=== PATIENT | male | born 1935 | race Caucasian/White ===

== ENCOUNTER 2022-02-23 16:12 | Observation (INO) | payer MEDICARE, BC, OTHER, SELFPAY ==
[2022-02-23 16:32] VITALS: BP 140/82; PULSE 96; RESP 18; TEMP 36.2; O2SAT 97; BMI 37.9
--- NOTE | 2022-02-23 16:48 | PC.SOCIAL ---
Social work: Received call from [facility] after school program coordinator, Maral, stating they can accept pt for admit to their senior care on Saturday03/29/22 if he is ready for discharge at that time. Maral states [facility] had been working with family to admit pt from home but did not have bed availability for and admit before Saturday. mobile home lot utility worker to follow up as needed.
--- NOTE | 2022-02-23 16:57 | PC.NURSE ---
per SS pt has been for Saturday at [facility], pt given 10mg oxycodone orally by son now of his home med
--- NOTE | 2022-02-23 17:10 | ED.BACK ---
HPI - Back Pain/Injury General Time Seen by Provider: 17:09 Date Seen: 02/23/22 Chief Complaint: Back Injury/Pain Stated Complaint: Back Pain Time Seen by Provider: 02/23/22 16:25 History of Present Illness HPI Narrative: This 86-year-old male comes in with his son because of worsening back pain and weakness. He is wearing a back brace because of compression fractures that occurred about 3 weeks ago. Since then he seems to be declining with increased weakness and inability to get up and attend to the bathroom and other activities of daily living. He is staying with his son at home who is unable to help him. When attempting to get up he become so weak that he is at great risk for falling. He does have arrangement for placement in [facility] facility in 3 days. He did go to a spine clinic appointment this morning and had x-rays done which were reported to him to show some slight improvement by way of healing of these fractures in his lumbar spine. He has been taking oxycodone 2 tablets every 6 hours and now this is not enough to help him with pain. He has taken an extra tablet in between for additional pain relief. Related Data Previous Rx's Medication Instructions Recorded oxycodone 5 mg tablet 5 mg PO Q4H PRN #30 tab 02/15/22 Allergies Allergy/AdvReac Type Severity Reaction Status Date / Time No Known Drug Allergies Allergy Verified 02/23/22 16:32 Review of Systems Status of ROS: Reports: 10 or more systems reviewed and unremarkable except as noted in History and below Narrative: Constitutional: No fevers, no weight gain or loss. Generalized weakness. Eyes: No discharge. No vision changes. HENT: No congestion, no sore throat, no ear pain. Cardiovascular: No chest pain, no palpitations. Respiratory: No shortness of breath, no wheezes, no cough. Gastrointestinal: No abdominal pain, no vomiting, no diarrhea. Genitourinary: No dysuria, no hematuria. Musculoskeletal: Low back pain from compression fractures. Skin: No rashes, no pruritis. Neurological: No dizziness, weakness, sensory change, speech change. Endo/Heme/Allergies: No bruising or bleeding. No polydipsia. Pysch: no suicidality, no anxiety, no insomnia. All other systems reviewed and are negative. [facility] Medical History Afib Back pain BPH (benign prostatic hyperplasia) CKD (chronic kidney disease) Constipation Dementia Diabetes mellitus Essential tremor Gout Heart failure HTN (hypertension) Hyperlipidemia OBIE (obstructive sleep apnea) Prostatitis Spinal stenosis Thoracic compression fracture Social History Smoking Status: Unknown if ever smoked How often do you have a drink containing alcohol: never AUDIT-C Alcohol total score: 0 Non-prescribed substance use: denies use Exam Narrative: Exam Narrative: Constitutional: Well-developed, well-nourished. HEENT: Normocephalic, atraumatic. Neck: Normal range of motion. Nontender. Supple. Heart: Intact distal pulses. Lungs: No chest discomfort. No wheezes, rhonchi, or rales. Abdomen: Nontender. Back: He is wearing a back brace. Extremities: Decreased range of motion of lower extremities due to pain in the back. No sign of injury. Skin: Intact. No rash. Warm. No erythema or pallor. Neurologic: No altered sensation. No weakness. Alert and oriented. Psychiatric: No suicidality. No anxiety or depression. No insomnia. Nursing notes and vitals signs are reviewed. Const: Vital Signs, click to edit/add: Vital Signs - 24 hr 02/23/22 16:32 Temperature 97.1 F L Pulse Rate [Right Pulse Oximeter] 96 Respiratory Rate 18 Blood Pressure [Ri ght Upper Arm] 140/82 H Pulse Oximetry 97 Course Vital Signs Vital signs: Initial Vital Signs Temperature 97.1 F L 02/23/22 16:32 Temperature Source Temporal Artery Scan 02/23/22 16:32 Pulse Rate 96 02/23/22 16:32 Respiratory Rate 18 02/23/22 16:32 Blood Pressure 140/82 H 02/23/22 16:32 Blood Pressure Mean 101 02/23/22 16:32 Blood Pressure Position Sitting 02/23/22 16:32 Pulse Oximetry 97 02/23/22 16:32 Oxygen Delivery Method 02/23/22 16:32 Vital Signs Temperature 97.1 F L 02/23/22 16:32 Pulse Rate 96 02/23/22 16:32 Respiratory Rate 18 02/23/22 16:32 Blood Pressure 140/82 H 02/23/22 16:32 Pulse Oximetry 97 02/23/22 16:32 Temperature 97.1 F L 02/23/22 16:32 Pulse Rate 96 02/23/22 16:32 Respiratory Rate 18 02/23/22 16:32 Blood Pressure 140/82 H 02/23/22 16:32 Pulse Oximetry 97 02/23/22 16:32 MDM - Back Pain/Injury MDM Narrative Medical decision making narrative: This patient has a back injury involving compression fractures and is wearing a brace. He is continuing to have increasing pain and weakness such that family are no longer able to take care of him. Upon arrival here he had distinct difficulty in transferring from wheelchair to the [facility]. He does have arrangements to be admitted into [facility] rehab facility on Saturday, 3 days from now. I spoke with the hospitalist disease and insect control boss, Dr. Roberts, who will arrange for a stay in the hospital until that can occur a few days from now. Discharge Plan Discharge Clinical Impression: Thoracic compression fracture Patient Disposition: Admitted As Inpatient Condition: Unchanged Prescriptions: No Action oxycodone 5 mg tablet 5 mg PO Q4H PRN (Reason: pain) Qty: 30 0RF Follow Up/Referrals: Rno Berkowitz MD [Primary Care Provider] -
--- NOTE | 2022-02-23 17:13 | ED.NURSE ---
car groomer swab for covid
[2022-02-23 18:00] VITALS: BP 131/70; PULSE 98; RESP 20; O2SAT 95
[2022-02-23] MEDS: MORPHINE 10 MG/ML inj IM (18:00)
--- NOTE | 2022-02-23 18:03 | ED.NURSE ---
pt sitting on edge of bed, caregiver at bedside. morphine im given for back pain unrelieved with home oxy. dr. llanos in seeing pt.
[2022-02-23 18:36] LABS: SARS PCR* Negative SARS-CoV-2 (Negative)
--- NOTE | 2022-02-23 19:04 | P.IMHP_ITS ---
Hospitalist- H&P: HPI History of Present Illness Time Seen by Provider: 19:07 Date Seen: 02/23/22 Chief complaint: Back Pain Narrative: Jose Reich is a 86 year old male who presents with ongoing back pain and weakness. He fell on 02/07/2020 sustaining a T11 compression fracture. CT scan on that day showed a mild biconcave compression deformity of T11 with no associated stenosis and no retropulsed fracture fragments or bony destruction. Loss of height was about 15%. Demineralization and degenerative changes were noted. Atherosclerotic vascular calcifications noted atrophic kidneys noted. He was having quite a bit of pain and immobility. He has been provided with a TLSO brace which he has been using continuously. His pain is not yet well controlled. He has been using oxycodone 10 mg every 6 hours. It appears that the pain medication wears off between doses. He has been quite weak and having difficulty walking. He had a clinic appointment today and as he was leaving the clinic his adopted son caught him and kept him from falling when he is trying to get into the car. His right knee gave out on him. He has no bowel or bladder problems. He reports he is able to control bowel function and urine function. He has manages constipation with senna 2 b.i.d. and MiraLax b.i.d. He was hospitalized here 2 months ago for a presumed prostatitis. He was discharged to the long-term care [facility] for rehab for 2 weeks prior to returning home to independent living. He apparently had quite a bit of improvement in his mobility during those 2 weeks in rehab. His adopted son has made arrangements for him to go to [address] [place] [address] for additional rehab this coming Saturday. He did re-injure his back after the 1st injury on February 06. He had another fall about a week later. He did have a clinic visit today where repeat x-ray showed improvement in the side of his fracture compared to February 06. Review of Systems Narrative: he reports no recent illness. [facility] Medical History (Updated 02/23/22 @ 19:24 by Armen Roberts MD) Afib Back pain Bacteremia due to Escherichia coli BPH (benign prostatic hyperplasia) CKD (chronic kidney disease) Constipation Dementia Diabetes mellitus Essential tremor Foot ulcer Generalized weakness Gout Heart failure HTN (hypertension) Hyperlipidemia Obesity (BMI 30-39.9) OBIE (obstructive sleep apnea) Prostatitis Spinal stenosis Thoracic compression fracture Transaminitis Surgical History (Updated 02/23/22 @ 19:16 by Armen Roberts MD) History of cataract surgery History of transurethral resection of prostate Family History (Updated 02/23/22 @ 19:17 by Armen Roberts MD) Father Prostate cancer Paternal Grandfather Prostate cancer Social History Smoking Status: Unknown if ever smoked How often do you have a drink containing alcohol: never AUDIT-C Alcohol total score: 0 Non-prescribed substance use: denies use Meds Home Medications and Allergies Home Medication Comments: medications are reviewed with his adopted son. They are now setting up his medications for him. Allergies Allergy/AdvReac Type Severity Reaction Status Date / Time No Known Drug Allergies Allergy Verified 02/23/22 16:32 Exam Narrative: Exam Narrative: He is alert and appears in no distress. He gives his own history. He is quite uncertain about many details. Eyes are normal. Oropharynx with small airway. Neck is supple out mass or adenopathy. Respirations are clear to auscultation. Cardiovascular: S1, S2, irregular rate and rhythm. No murmur gallop or rub. Bilaterally with 1 to 2+ edema in his ankles strength testing in his upper extremities is normal. He struggles with [id number] on both sides. currently no tremor. Equal strength in upper and lower extremities. Intact sensation in upper and lower extremities. Right foot has a healing ulcer underneath the 3rd MTP joint. Const: Vital Signs, click to edit/add: Vital Signs - 24 hr 02/23/22 16:32 02/23/22 18:00 Temperature 97.1 F L Pulse Rate [Right Pulse Oximeter] 96 98 Respiratory Rate 18 20 Blood Pressure [Ri ght Upper Arm] 140/82 H 131/70 Pulse Oximetry 97 95 Assessment and Plan Assessment and plan (1) Thoracic compression fracture: Problem comment: continues have quite a bit of pain which has not improved over the last 2 and half weeks. Most of his problem with pain I think is wearing off of the oxycodone. Going to make his doses lower and more frequent, 5 mg of oxycodone every 4 hours. He will continue to use his TLSO brace continuously except for hygiene Status: Acute (2) Generalized weakness: Problem comment: patient was quite weak and frail with his last admission. He went to the [facility]. He continues have a goal of living independently in his own home. I believe this is going to be quite a challenge for him and discussed with him how much ongoing effort is going to be required for him to regain his independent mobility. A rehab stay at a [facility] is a good start. Status: Acute (3) Dementia: Problem comment: Patient has lack of insight into his challenges to maintain independence. I am also concerned about his ability to live independently with his cognitive impairment Status: Acute
[2022-02-23] MEDS: OXYCODONE 5 MG TABLET PO (20:05)
[2022-02-23] MEDS: ATORVASTATIN 10 MG TABLET 5 MG PO (20:40)
[2022-02-23 22:40] VITALS: BP 135/84; PULSE 88; RESP 18; O2SAT 96; BMI 37.3
[2022-02-23 23:00] VITALS: BP 111/73; PULSE 79; RESP 18; TEMP 36.2; O2SAT 93
[2022-02-23 23:01] VITALS: RESP 18; O2SAT 96
[2022-02-24] VITALS (7 sets, daily range): BP systolic 125–150; BP diastolic 66–84; PULSE 88–98; RESP 18–20; TEMP 36.6–36.9; O2SAT 95–100
[2022-02-24] MEDS: OXYCODONE 5 MG TABLET PO ×6 (00:30→23:04)
--- NOTE | 2022-02-24 00:57 | PC.NURSE ---
Addendum entered by Heavenly Ureña RN 02/24/22 06:55: Per pt. preference, back brace is too uncomfortable to sleep with and sit in chair and eat. Original Note: Pt. up to floor at 1945 accompanied by son. Alert and oriented x3. Hx dementia. Pt. wears a back brace but removed to sleep. Pt. verbalizes 10/10 pain, 5 mg oxy administered and repositioned. Pt. is assist of 1 and can ambulate to the bathroom w/walker. Initial weight bed scale with back brace and no bed park superintendent. Right foot bed non-measurable wound, dry and healing wrapped in Kerlix. Left thigh bruise from fall and Rt. inner knee bruise.
[2022-02-24] MEDS: METFORMIN ER 500 MG 1000 MG PO (08:21)
[2022-02-24] MEDS: FINASTERIDE 5 MG TABLET PO (08:22)
[2022-02-24] MEDS: RIVAROXABAN 10 MG TABLET 20 MG PO (08:22)
[2022-02-24] MEDS: METOPROLOL SUCCINATE (XL) 100 MG TAB PO (08:22)
[2022-02-24] MEDS: glipiZIDE XL 5 MG TAB PO (08:23)
[2022-02-24] MEDS: FUROSEMIDE 20 MG TABLET PO (08:23)
[2022-02-24] MEDS: allopurinoL 100 MG TABLET PO (08:23)
[2022-02-24] MEDS: PIOGLITAZONE HCL 15 MG TABLET 30 MG PO (10:17)
--- NOTE | 2022-02-24 13:22 | PM.IMPN1 ---
Progress Note: A&P Assessment and plan (1) Generalized weakness: Problem details: patient was quite weak and frail with his last admission. He went to the senior care. He continues have a goal of living independently in his own home. I believe this is going to be quite a challenge for him and discussed with him how much ongoing effort is going to be required for him to regain his independent mobility. A rehab stay at a senior care is a good start. Overall appears better today Status: Acute (2) Dementia: Problem details: Patient has lack of insight into his challenges to maintain independence. I am also concerned about his ability to live independently with his cognitive impairment Status: Acute (3) Thoracic compression fracture: Problem details: continues have quite a bit of pain which has not improved over the last 2 and half weeks. Most of his problem with pain I think is wearing off of the oxycodone. Going to make his doses lower and more frequent, 5 mg of oxycodone every 4 hours. He will continue to use his TLSO brace continuously except for hygiene Status: Acute Subjective Time Seen by Provider: 11:20 Date Seen: 02/24/22 Interval history: 86-year-old male seen in followup of admission for back pain and weakness following T11 compression fracture. Patient complained during the night of ongoing pain in his back. He indicated he wanted more oxycodone than is prescribed for him during the night. But this morning he tells me now that he is doing well on oxycodone 5 mg every 4 hours. At his request will start a lidocaine patch as well. He has no other concerns. Specifically he denies shortness of breath or chest pain. He has not had any abdominal pain. He is eating well today. He was up with physical therapy and did fairly well. Exam Narrative: Exam Narrative: He is alert and appears in no distress. Speech is normal. He is oriented to his circumstances. Respirations are clear to auscultation. Cardiovascular: S1, S2, regular rate and rhythm. 2+ edema in his ankles bilaterally. Unchanged from yesterday. He moves his lower extremities well without weakness. he is observed to stand up under his own power today. Const: Vital Signs, click to edit/add: Vital Signs - 24 hr 02/23/22 16:32 02/23/22 18:00 02/23/22 22:40 Temperature 97.1 F L Pulse Rate [Right Pulse Oximeter] 96 98 88 Respiratory Rate 18 20 18 Blood Pressure [Ri ght Arm] 135/84 Blood Pressure [Ri ght Upper Arm] 140/82 H 131/70 Pulse Oximetry 97 95 96 02/23/22 23:00 02/23/22 23:01 02/24/22 04:21 Temperature 97.1 F L 98.4 F Pulse Rate [Right Pulse Oximeter] 79 88 Respiratory Rate 18 18 18 Blood Pressure [Ri ght Arm] 111/73 150/84 H Blood Pressure [Ri ght Upper Arm] Pulse Oximetry 93 96 95 02/24/22 08:34 Temperature 98 F Pulse Rate [Right Pulse Oximeter] 98 Respiratory Rate 18 Blood Pressure [Ri ght Arm] 126/66 Blood Pressure [Ri ght Upper Arm] Pulse Oximetry 97 Documenting provider has reviewed patient's vital signs: yes Labs Labs: Laboratory Results - last 24 hr 02/23/22 Unknown SARS-CoV-2 (PCR) Negative SARS-CoV-2
[2022-02-24] MEDS: LIDOCAINE 5% PATCH 1 PATCH TOPICAL (14:46)
[2022-02-24] MEDS: ACETAMINOPHEN 650 MG TABLET ER 1300 MG PO (18:48)
--- NOTE | 2022-02-24 19:29 | PC.NURSE ---
Shift Note: Pt continues to request frequent Oxycodone for pain control. Note Teller discussed with pt non-pharmacological options to use with ordered 5mg Oxycodone Q4h such as ice and position change. With prompting to utilize these interventions pt is receptive and does verbalize increased relief. Lidocaine patch applied to low back. Visitor Nathaniel brought brace out to be modified and it is now again in place on pt. Large BM this afternoon. Moves well with assist x1 with walker and GB. Morris Delilah brought in foot cream to be applied daily to right foot at HS. She also stated pt soaks his right foot in warm water with epsom salt at HS. Foot was soaked this afternoon in warm water this evening.
[2022-02-24] MEDS: ATORVASTATIN 10 MG TABLET 5 MG PO (20:19)
[2022-02-24] MEDS: polyethylene glycoL 3350 17 GM PACK PO (20:21)
[2022-02-24] MEDS: SENNOSIDES 1 TAB TABLET 2 TAB PO (20:21)
[2022-02-25] VITALS (7 sets, daily range): BP systolic 122–160; BP diastolic 58–74; PULSE 78–108; RESP 16–18; TEMP 36.3–36.8; O2SAT 90–96
[2022-02-25] MEDS: ACETAMINOPHEN 325 MG TABLET 650 MG PO (03:15)
[2022-02-25] MEDS: OXYCODONE 5 MG TABLET PO ×5 (03:15→19:46)
--- NOTE | 2022-02-25 05:28 | PC.NURSE ---
SHIFT REPORT: PATIENT PLEASANT AND COOPERATIVE, UP TO BATHROOM WITH A1 WALKER AND BELT, PATIENT DOES MOVE VERY IMPULSIVELY AND QUICKLY, PATIENT EDUCATED ON MOVING SLOW, VERBALIZED UNDERSTANDING, RATING PAIN IN BACK 5-02/25 BEING MANAGED WITH OXYCODONE, TYLENOL, ICE PACK, REPOSITIONING, PATIENT EXPRESSING PAIN DOES FEEL THOUGH IT IS GETTING BETTER, BACK BRACE ON TILL AROUND 0100, FOR WHICH PATIENT TOOK OFF I JUST CAN'T SLEEP, IM TOO UNCOMFORTABLE, I KNOW I NEED IT ON BUT I JUST CANT SLEEP ILL HAVE WADE HELP ME GET IT BACK ON IN THE MORNING, CREAM TO RIGHT FOOT, DRESSING CDI.
[2022-02-25 07:31] LABS: Basophils Absolute Auto 0.04 K/uL (0.00-0.30); Basophils Percent Auto 0.7 % (0.0-3.0); Eosinophils Absolute Auto 0.19 K/uL (0.00-0.50); Eosinophils Percent Auto 3.3 % (0.0-7.0); Hematocrit 34.8 % (37.0-53.0); Hemoglobin* 11.2 gm/dL (13.5-17.5); Immature Granulocytes Abs Auto 0.05 K/uL (0.00-0.30); Lymphocytes Absolute Auto 1.43 K/uL (0.90-2.90); Lymphocytes Percent Auto 24.7 % (20-44); Mean Corpuscular HGB Conc 32 gm/dL (32-36); Mean Corpuscular Hemoglobin 30 pg (26-34); Mean Corpuscular Volume 93 fL (80-100); Monocytes Percent Auto 7.6 % (0.0-11.0); Neutrophils Absolute Auto 3.64 K/uL (1.7-7.0); Neutrophils Percent Auto 62.8 % (42.0-72.0); Platelet Count* 324 K/uL (140-440); RDW Coefficient of Variation % 15.9 % (11.5-15.5); Red Blood Count 3.73 m/uL (4.30-5.90); White Blood Count* 5.79 K/uL (4.50-11.00)
[2022-02-25] MEDS: FUROSEMIDE 20 MG TABLET PO (07:50)
[2022-02-25] MEDS: polyethylene glycoL 3350 17 GM PACK PO (07:50)
[2022-02-25] MEDS: RIVAROXABAN 10 MG TABLET 20 MG PO (07:50)
[2022-02-25] MEDS: METOPROLOL SUCCINATE (XL) 100 MG TAB PO (07:50)
[2022-02-25] MEDS: allopurinoL 100 MG TABLET PO (07:50)
[2022-02-25] MEDS: METFORMIN ER 500 MG 1000 MG PO (07:51)
[2022-02-25] MEDS: glipiZIDE XL 5 MG TAB PO (07:51)
[2022-02-25] MEDS: FINASTERIDE 5 MG TABLET PO (07:51)
[2022-02-25] MEDS: SENNOSIDES 1 TAB TABLET 2 TAB PO (07:51)
[2022-02-25] MEDS: PIOGLITAZONE HCL 15 MG TABLET 30 MG PO (07:54)
[2022-02-25 07:58] LABS: Slide Review Reflex No
[2022-02-25 08:04] LABS: Chloride* 103 mmol/L (96-114); Sodium* 136 mmol/L (135-149)
[2022-02-25 08:07] LABS: Blood Urea Nitrogen* 24 mg/dL (7-30); Carbon Dioxide* 26 mmol/L (20-32); Creatinine* 1.3 mg/dL (0.5-1.5)
[2022-02-25 08:08] LABS: Calcium* 8.7 mg/dL (8.4-10.6); Glucose* 143 mg/dL (60-115)
--- NOTE | 2022-02-25 09:21 | PM.IMPN1 ---
Progress Note: A&P Assessment and plan (1) Generalized weakness: Problem details: patient was quite weak and frail with his last admission. [facility] the [facility]. He continues have a goal of living independently in his own home. I believe this is going to be quite a challenge for him and discussed with him how much ongoing effort is going to be required for him to regain his independent mobility. A rehab stay at a intermediate is a good start. Overall appears better today . Status: Acute (2) Dementia: Problem details: Patient has lack of insight into his challenges to maintain independence. I am also concerned about his ability to live independently with his cognitive impairment . Staff note that he is somewhat impulsive and unsafe when he is up on his own. If he does return home he will probably need 24/7 care and supervision. Status: Acute (3) Thoracic compression fracture: Problem details: He continues to report quite a bit of pain, some from his back and some from his brace, which has not improved over the last 2 and half weeks. He will continue to use his TLSO brace continuously except for hygiene Status: Acute (4) Chronic, continuous use of opioids: Problem details: patient has had almost 3 weeks of continuous opioid use following thoracic compression fracture. Will need to continue to look for ways to taper off opioids. Despite kidney disease, heart disease and anticoagulation will give Naprosyn low-dose to see if he can get some benefit. Probably not a safe long-term plan. Lidocaine patch. Status: Acute (5) Foot ulcer: Problem details: daily bandage change Status: Acute (6) HTN (hypertension): Problem details: continue outpatient treatment Status: Acute (7) Obesity (BMI 30-39.9): Status: Acute (8) Afib: Problem details: continue rate control and anticoagulation Status: Acute (9) CKD (chronic kidney disease): Problem details: continue to monitor in the face of comorbid problems Status: Acute (10) Diabetes mellitus: Problem details: continue to monitor Status: Acute Time Spent With Patient Total time spent: total time spent today is 40 minutes, 30 minutes in coordination of care and discussing with him and his son and other providers management of disabilities and pain Subjective Date Seen: 02/25/22 Interval history: 86-year-old male seen in followup of back pain, weakness, disability, cognitive impairment. During the night last night the patient removed his TLSO brace. He said it was uncomfortable. He has been told that it needs to be worn continuously. He reports he still having episodes where he is having back pain but he is also trying to manage without as much oxycodone. Staff note that he has been a little bit impulsive with activity and ambulation and needs some direction when he is up and moving. Exam Narrative: Exam Narrative: He is alert and in no obvious distress. His brace is off and He is sitting on the edge of the bed. I assist his adopted son in changing his T-shirt and re-applying his brace. His son has trimmed the top of the front piece because it was sticking up too much. respirations are clear to auscultation. Inspection of the back is normal. Palpation shows minimal tenderness over the T11 level in his back. Cardiovascular: S1, S2, Irregular rhythm. Abdomen: Bowel sounds active. Abdomen is soft without tenderness. 2+ edema in his ankles. Const: Vital Signs, click to edit/add: Vital Signs - 24 hr 02/24/22 12:00 02/24/22 15:40 02/24/22 18:48 Temperature 98.5 F 98.2 F Pulse Rate [Right Pulse Oximeter] 92 88 Respiratory Rate 18 18 Blood Pressure [Ri ght Arm] 134/80 Pulse Oximetry 97 02/24/22 19:00 02/24/22 23:00 02/25/22 03:00 Temperature 97.8 F 97.8 F 97.8 F Pulse Rate [Right Pulse Oximeter] 91 94 78 Respiratory Rate 18 20 18 Blood Pressure [Ri ght Arm] 139/82 125/80 127/69 Pulse Oximetry 100 95 92 02/25/22 08:19 Temperature 97.8 F Pulse Rate [Right Pulse Oximeter] 108 H Respiratory Rate 18 Blood Pressure [Ri ght Arm] 160/58 H Pulse Oximetry 95 Documenting provider has reviewed patient's vital signs: yes Labs Labs: Laboratory Results - last 24 hr 02/25/22 02/25/22 06:18 06:18 WBC 5.79 RBC 3.73 L Hgb 11.2 L Hct 34.8 L MCV 93 MCH 30 MCHC 32 RDW Coeff of Dulce Maria 15.9 H Plt Count 324 Neut % (Auto) 62.8 Lymph % (Auto) 24.7 [place] % (Auto) 7.6 Eos % (Auto) 3.3 Baso % (Auto) 0.7 Neut # (Auto) 3.64 Lymph # (Auto) 1.43 [place] # (Auto) 0.40 Eos # (Auto) 0.19 Baso # (Auto) 0.04 Abs Immat Gran (auto) 0.05 Sodium 136 Potassium 4.0 Chloride 103 Carbon Dioxide 26 BUN 24 Creatinine 1.3 Estimated Creat Clear 46.10 Glucose 143 H Calcium 8.7
[2022-02-25] MEDS: ACETAMINOPHEN 650 MG TABLET ER 1300 MG PO ×2 (10:13→22:26)
[2022-02-25] MEDS: LIDOCAINE 5% PATCH 1 PATCH TOPICAL (10:25)
[2022-02-25] MEDS: OMEPRAZOLE 20 MG CAPSULE DR PO (10:25)
--- NOTE | 2022-02-25 11:15 | PC.NURSE ---
Pt not wearing his back brace at beginning of shift and sitting at edge of bed waiting for his breakfast tray. Software Reverse Engineer approached pt about putting brace back on and pt stated I just had to take it off because I couldn't sleep. I'll put it on after breakfast. Pt was again re-approached after breakfast and he stated I want to wait until Nathaniel gets here, he knows how to put in on. Pt was reassured that staff here in the hospital also know how to properly apply his brace and pt again refused. Pt verbalized understanding of the risks associated with being noncompliant with wearing his brace.
--- NOTE | 2022-02-25 13:47 | PC.NURSE ---
Shift Note [id number]: Pt continues to rate pain 8/10. Nonverbal indicators appear that pt is comfortable. Oxycodone 5mg given Q4h as well as Tylenol PRN and Lidocaine patch. Nonpharmacological interventions include icepacks and repositioning which pt verbalizes helps pain control effectiveness. Moves impulsively but is steady with assist x1 with walker and GB. Occasionally attempts to self transfer, chair/bed alarms in place. Pt has been somewhat resistant to wearing his back brace today, it is now on and in place. BM x2 today. Pt to discharge to [facility] tomorrow for rehab.
[2022-02-25] MEDS: NAPROXEN 250 MG TABLET PO (17:48)
[2022-02-25] MEDS: CALCITONIN SALMON NASAL SPRAY 200 UNIT 1 SPRAY NOSTRIL-B (21:01)
[2022-02-25] MEDS: ATORVASTATIN 10 MG TABLET 5 MG PO (21:02)
[2022-02-26] MEDS: OXYCODONE 5 MG TABLET PO ×3 (00:26→08:22)
[2022-02-26 03:00] VITALS: BP 132/72; PULSE 93; RESP 16; TEMP 36.8; O2SAT 93
--- NOTE | 2022-02-26 04:34 | PC.NURSE ---
AT BEGINNING OF SHIFT PATIENT VERY UPSET THAT NURSING STAFFING WAS NOT IN ROOM AT EXACTLY 0000 TO GIVE HIM PAIN MEDICATION, THE OTHER NURSE SAID SHE WOULD BE HERE AT 0000. YOUR THE REASON IM IN SO MUCH PAIN, ABLE TO REDIRECT PATIENT AND EDUCATE PATIENT PAIN MEDICATION, PATIENT THEN DID CALM DOWN AND APOLOGIZE, PATIENT RATING PAIN IN BACK 6-03/28 BEING MANAGED WITH PRN OXYCODONE AND TYLENOL, PATIENT DOES EXPRESS FEELING THOUGH HE NEEDS MORE NARCOTICS, PATIENT IS ABLE TO SLEEP BETWEEN DOSING, UP TO BR WITH SBA WITH WALKER, BACK BRACE IN PLACE, PATIENT DOES FEEL THOUGHT SOME OF HIM PAIN IS FROM THE BRACE WHEN HES TRYING TO SLEEP ITS HARDER TO GET COMFORTABLE, OTHER PAIN MANAGEMENT INTERVENTIONS USES HEAT.ICE.REPOSITION.DISTRACTION, DRESSING TO RIGHT FOOT CDI.
[2022-02-26] MEDS: OMEPRAZOLE 20 MG CAPSULE DR PO (06:35)
[2022-02-26] MEDS: glipiZIDE XL 5 MG TAB PO (08:15)
[2022-02-26] MEDS: NAPROXEN 250 MG TABLET PO (08:15)
[2022-02-26 08:26] VITALS: BP 122/66; PULSE 81; RESP 16; TEMP 36.4; O2SAT 93
[2022-02-26] MEDS: RIVAROXABAN 10 MG TABLET 20 MG PO (09:18)
[2022-02-26] MEDS: SENNOSIDES 1 TAB TABLET 2 TAB PO (09:19)
[2022-02-26] MEDS: METOPROLOL SUCCINATE (XL) 100 MG TAB PO (09:19)
[2022-02-26] MEDS: FINASTERIDE 5 MG TABLET PO (09:19)
[2022-02-26] MEDS: polyethylene glycoL 3350 17 GM PACK PO (09:19)
[2022-02-26] MEDS: allopurinoL 100 MG TABLET PO (09:19)
[2022-02-26] MEDS: FUROSEMIDE 20 MG TABLET PO (09:19)
[2022-02-26] MEDS: METFORMIN ER 500 MG 1000 MG PO (09:21)
[2022-02-26] MEDS: LIDOCAINE 5% PATCH 1 PATCH TOPICAL (09:22)
[2022-02-26] MEDS: PIOGLITAZONE HCL 15 MG TABLET 30 MG PO (09:23)
--- NOTE | 2022-02-26 10:09 | PM.DS1 ---
DS: Providers Provider Time Seen by Provider: 08:30 Date Seen: 02/26/22 Date of admission: 02/23/22 18:58 Primary care physician: Ron Berkowitz MD Admitting Clinician: Armen Roberts MD Consults: 02/23/22 18:44 Consult to Occupational Therapy [CONS] Urgent Comment: Reason(s) for OT Consult:: Evaluate and Treat Any Restrictions?:: No Restrictions Consult to Physical Therapy [CONS] Urgent Comment: Reason(s) for PT Consult:: Evaluate and Treat Any Restrictions?:: No Restrictions 02/23/22 23:11 Consult to Occupational Therapy [CONS] Routine Comment: Reason(s) for OT Consult:: Evaluate and Treat Any Restrictions?:: See Comment Comment: Back Brace Consult to Physical Therapy [CONS] Routine Comment: Reason(s) for PT Consult:: Evaluate and Treat Any Restrictions?:: See Comment Attending Physician on discharge: Armen Roberts MD Date of Discharge: 02/26/22 DS: Diagnosis Discharge Diagnosis (1) Generalized weakness: Status: Acute Problem details: patient was quite weak and frail with his last admission. He went to the group home. He continues have a goal of living independently in his own home. I believe this is going to be quite a challenge for him and discussed with him how much ongoing effort is going to be required for him to regain his independent mobility. A rehab stay at a group home is a good start. Overall appears better today . (2) Thoracic compression fracture: Status: Acute Problem details: He continues to report quite a bit of pain, some from his back and some from his brace, which has not improved over the last 2 and half weeks. He will continue to use his TLSO brace continuously except for hygiene (3) Chronic, continuous use of opioids: Status: Acute Problem details: patient has had almost 3 weeks of continuous opioid use following thoracic compression fracture. Will need to continue to look for ways to taper off opioids. Lidocaine patch was applied. Patient is in agreement to wean off opioids. (4) Sedentary lifestyle: Status: Acute Problem details: patient appears to be quite sedentary. This is complicated by need for him to have standby assistance when he is up moving. He will need to be much more active to return to independent living. DS: Summary Hospital Course Hospital Course: 86-year-old male sustained a T11 compression fracture almost 3 weeks ago. He attempted to manage as an outpatient but was found to be quite weak and unsafe to be ambulating by his caregiver. Attempts were made for group home placement but were delayed until today. He is admitted to the hospital pending a safe discharge plan. He had been on oxycodone 10 mg every 6 hours with incomplete relief of his pain. I recommended that we wean him off oxycodone as it is causing him to be more unsteady on his feet and more sedated and confused. Oxycodone dose was changed to 5 mg every 4 hours which gave him adequate pain relief. The majority of his pain was coming from his midback, T11 compression fracture but he also was having pain from his TLSO brace. Evaluation with therapy here recommended that he have standby assistance with all activity. He was felt to be somewhat impulsive and showing impaired judgment when he was up moving around. Status at Discharge Functional status at discharge: uses cane/walker Overall status at discharge: patient is back to baseline Time Spent with Patient Time attestation: Total time spent providing and/or coordinating discharge services: Time spent: Greater than 30 minutes Exam Narrative: Exam Narrative: He is alert and in no distress. He is able to fairly successfully describe events that have occurred in the last day. He occasionally is observed to have a little tremor in his hand. At the time I see him he is only having mild pain. Breathing is unlabored. 2+ edema in his ankles. Const: Vital Signs, click to edit/add: Vital Signs - 24 hr 02/25/22 12:00 02/25/22 15:00 02/25/22 16:30 Temperature 97.4 F L 98.2 F Pulse Rate [Right Pulse Oximeter] 99 94 Respiratory Rate 18 16 18 Blood Pressure [Ri ght Arm] 132/74 123/64 Pulse Oximetry 96 95 02/25/22 19:33 02/25/22 23:00 02/26/22 03:00 Temperature 98.2 F 98.2 F 98.2 F Pulse Rate [Right Pulse Oximeter] 81 97 93 Respiratory Rate 16 16 16 Blood Pressure [Ri ght Arm] 123/68 122/66 132/72 Pulse Oximetry 90 91 93 02/26/22 08:26 Temperature 97.5 F L Pulse Rate [Right Pulse Oximeter] 81 Respiratory Rate 16 Blood Pressure [Ri ght Arm] 122/66 Pulse Oximetry 93 Documenting provider has reviewed patient's vital signs: yes Discharge Plan Discharge Disposition: [facility] Date of Admission: 02/23/22 18:58 Attending Provider on Discharge: Armen Roberts Primary Care Provider: Ron Berkowitz Condition: Unchanged Discharge Medications: New sennosides [Senna Lax] 8.6 mg Tablet 2 tab PO BID Qty: 120 0RF polyethylene glycol 3350 [Miralax] 17 gram Powder In Packet 17 g PO BID Qty: 217 0RF acetaminophen 650 mg Tablet Extended Release 1,300 mg PO BID PRNQty: 60 0RF calcitonin (salmon) 200 unit/actuation [place],Non-Aerosol 1 spray intranasal HS Qty: 1 0RF oxycodone 5 mg Tablet 5 mg PO Q4H PRN (Reason: Pain) Qty: 30 0RF Continued calcitonin (salmon) 200 unit/actuation spray,non-aerosol 1 spray intranasal (ALT) DAILY 0RF Hold Instructions: . nystatin [Nystop] 100,000 unit/gram powder 1 applic TOPICAL BID 0RF Label Comments: APPLY TOPICALLY TWICE DAILY allopurinol 100 mg tablet 100 mg PO DAILY 0RF atorvastatin 10 mg tablet 5 mg PO DAILY 0RF cholecalciferol (vitamin D3) 25 mcg (1,000 unit) tablet 2,000 unit PO DAILY 0RF finasteride 5 mg tablet 5 mg PO DAILY 0RF furosemide 20 mg tablet 20 mg PO DAILY 0RF glipizide 5 mg tablet 5 mg PO DAILY 0RF metformin 500 mg tablet 500 mg PO BIDWMEAL 0RF metoprolol succinate [Toprol XL] 100 mg tablet extended release 24 hr 100 mg PO DAILY 0RF pioglitazone 30 mg tablet 30 mg PO DAILY 0RF Xarelto 20 mg tablet 20 mg PO DAILY 0RF Rx Instructions: must administer with evening meal silver sulfadiazine [SSD] 1 % cream 1 applic TOPICAL BID 0RF Label Comments: APPLY TOPICALLY TO THE AFFECTED AREA TWICE DAILY Discontinued oxycodone 5 mg tablet 5 - 10 mg PO Q4H PRN (Reason: pain) 0RF Discharge Orders: Discharge Order (Routine); Ordered 02/26/22 Ordered By: Armen Roberts Activity Restrictions/Additional Instructions: inspect, clean and re-bandage foot ulcer every day Activity Level: Activity as Tolerated, Up with assist, Wear Brace and Use Walker Activity Detail: Wear brace 24 hours a day except for hygiene Discharge Diet: Diabetic Follow Up Appointments: Ron Berkowitz MD [Primary Care Provider] -
--- NOTE | 2022-02-26 11:04 | PC.NURSE ---
Discharge: Patient pleasant and cooperative. Up with one assist, walker and gait belt. Patient impulsive with movement, requiring cueing with ambulation. No IV at time of discharge. Nurse to nurse report given to nurse at [facility], informed about bruising to armpits, open area on right foot, and skin tears to right elbow. Morning cares performed and new clothes place, new lidocaine patch in place on lower right back, nurse at [facility] told of this and informed it needs to come off in 12 hours. Chaitanya from PT assisted with getting patient into truck with gait belt, taught son how to safely transfer patient. Patient left unit via wheelchair, left @ 1050.
--- NOTE | 2022-02-26 13:13 | PC.SOCIAL ---
Pt. and family had arranged for pt. to go to [facility] last week. Updated information on pt. was sent to [facility] and they can accept pt. today at 11am. Pt.'s son Nathaniel will transport. PAS completed # [id number].
== END 2022-02-26 10:50 ==
LOC: ED 17:55 → MEDSURG 19:00
PROVIDERS: Admitting Provider Family Medicine; Emergency Provider Emergency Medicine Emergency Medical Services; PCP Family Medicine; Visit Provider Family Medicine
DX: S22.080A Wedge compression fracture of T11-T12 vertebra, initial encounter for closed fracture (principal); M62.81 Muscle weakness (generalized); F03.90 Unspecified dementia, unspecified severity, without behavioral disturbance, psychotic disturbance, mood disturbance, and anxiety; M54.9 Dorsalgia, unspecified; Z72.9 Problem related to lifestyle, unspecified; F11.90 Opioid use, unspecified, uncomplicated; Z79.84 Long term (current) use of oral hypoglycemic drugs; E78.5 Hyperlipidemia, unspecified; R26.81 Unsteadiness on feet; I50.9 Heart failure, unspecified; Z91.89 Other specified personal risk factors, not elsewhere classified; I13.0 Hypertensive heart and chronic kidney disease with heart failure and stage 1 through stage 4 chronic kidney disease, or unspecified chronic kidney disease; E11.22 Type 2 diabetes mellitus with diabetic chronic kidney disease; N18.9 Chronic kidney disease, unspecified; W19.XXXA Unspecified fall, initial encounter; I48.91 Unspecified atrial fibrillation; Z91.81 History of falling; Z98.890 Other specified postprocedural states; I25.84 Coronary atherosclerosis due to calcified coronary lesion; N26.1 Atrophy of kidney (terminal); K59.00 Constipation, unspecified; Z79.01 Long term (current) use of anticoagulants; L97.509 Non-pressure chronic ulcer of other part of unspecified foot with unspecified severity; E66.9 Obesity, unspecified; Z68.37 Body mass index [BMI] 37.0-37.9, adult
CPT/HCPCS: 36415; 80048; 82947; 85025; 86140; 87635; 96372; 97110; 97116; 97162; 97166; 97530; 97535; 99283; 99285; A9270; G0378; G0379; J2270

== ENCOUNTER 2022-05-01 08:12 | Outpatient (CLI) | payer OTHER, MEDICARE, BC, SELFPAY ==
--- OUTSIDE RECORDS SUMMARY | 2022-05-15 09:10 | XMS_ITS | Continuity of Care Document ---
:1935 Author Organization [facility] Care Team Providers Name Role Phone [facility] Unavailable Unavailable Problems Combined list of problems from Department of Defense and Veterans Affairs facilities. It does not include entries that were removed or entered in error. 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 2020 Entered [facility] By: BETH ROONEY Comment: w/ HTN and dyslipidemia Elevated PSA Active Condition Oct 14 [place] 2015 Entered [facility] By: SHANI PIKE Comment: follows with urology at [place] Mar 22, 2021 Entered By: BETH ROONEY Comment: 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 Two small polyps. Oct 14, 2015 Entered By: SHANI PIKE Comment: 5 year follow up if appropriate. 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 Has brother in [place]. Friends locally. 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 Type 2 diabetes Active Condition [place] mellitus (SNOMED CT [facility] [id number]) Diagnosis: ICD-10-CM Active Diagnosis [place] G93.49 Other [facility] encephalopathywith Provider Comments: Other Encephalopathy Diagnosis: ICD-10-CM Active Diagnosis [place] Z51.81 Encounter for [facility] therapeutic drug level monitoringwith Provider Comments: Encounter for therapeutic drug level monitoring Diagnosis: ICD-10-CM Active Diagnosis [place] G40.89 Other [facility] seizureswith Provider Comments: Other Seizures Diagnosis: ICD-10-CM Active Diagnosis [place] G40.209 Local-rel [facility] symptc epi w cmplx prt seiz,not ntrct,w/o stat epiwith Provider Comments: Local-rel symptc epi w cmplx prt seiz,not ntrct,w/o stat epi Diagnosis: ICD-10-CM Active Diagnosis [place] I33.9 Acute and [facility] subacute endocarditis, unspecifiedwith Provider Comments: Acute and Subacute Endocarditis, unspecified Admit Reason: UTI Active Diagnosis [place] [facility] Diagnosis: ICD-10-CM Active Diagnosis [place] A41.9 Sepsis, [facility] unspecified organismwith Provider Comments: Sepsis, unspecified Organism Diagnosis: ICD-10-CM Active Diagnosis [place] I48.20 Chronic [facility] S atrial fibrillation, unspecifiedwith Provider Comments: Chronic atrial fibrillation ([facility] [id number]) Diagnosis: ICD-10-CM Active Diagnosis [place] Z65.8 Oth problems [facility] related to psychosocial circumstanceswith Provider Comments: Other specified Problems Related to Psychosocial Circumstances Diagnosis: ICD-10-CM Active Diagnosis [place] F03.90 Unspecified [facility] dementia without behavioral disturbancewith Provider Comments: Unspecified Dementia without Behavioral Disturbance Diagnosis: ICD-10-CM Active Diagnosis [facility] E11.9 Type 2 [facility] diabetes mellitus without complicationswith Provider Comments: Type 2 diabetes mellitus ([facility] [id number]) Diagnosis: ICD-10-CM Active Diagnosis [facility] Z71.89 Other [facility] specified counselingwith Provider Comments: Other specified counseling Diagnosis: ICD-10-CM Active Diagnosis [facility] Z71.89 Other [facility] specified counselingwith Provider Comments: Other specified Counseling Diagnosis: ICD-10-CM Active Diagnosis [place] I50.32 Chronic [facility] diastolic (congestive) heart failurewith Provider Comments: Diastolic heart failure ([facility] [id number]) Diagnosis: ICD-10-CM Active Diagnosis [facility] Z23 Encounter for [facility] immunizationwith Provider Comments: Encounter for Immunization Diagnosis: ICD-10-CM Active Diagnosis [facility] M20.40 Other [facility] toe(s) (acquired), unspecified footwith Provider Comments: Other [place] Toe(s) (Acquired), unspecified Foot Medications Combined list of outpatient medications from Department of Defense and Veterans Affairs facilities. Medications provided include 1) outpatient medications from the last 15 months, and 2) patient-reported medications. Medication Details Route Status Patient Prescription Prescription Last Ordering Order Source Instructions Expires Number Dispense Provider Date Date ALLOPURINOL TAKE ONE ORALLY DISCONT 03/23/2022 [id number] BORTHWICK 03/23/ [place] 100MG TAB TABLET INUED 2 ,2020 [facility] EVERY DAY ATORVASTATI TAKE ORALLY DISCONT 04/05/2023 [id number] B ORTHWICK 04/05/ [place] CA 10MG ONE-HALF INUED 2 ,2021 [facility] TAB TABLET L [facility] BY MOUTH EVERY DAY ATORVASTATI TAKE ORALLY DISCONT 03/23/2022 [id number] B[place]TH WICK 03/23/ [place] CA 10MG ONE-HALF INUED 2 ,2020 [facility] TAB TABLET L [facility] BY MOUTH EVERY DAY ATORVASTATI TAKE ORALLY DISCONT 01/20/2022 [id number] L EIGH,ANGELICA 04/07/ [place] 10MG ONE-HALF INUED 1 2020 [facility] TAB TABLET (EDIT) HCS BY MOUTH EVERY DAY CHOLECALCIF TAKE ORALLY DISCONT 03/23/2022 [id number] B[place] WICK 03/23/ [place] SUAD 25MCG 2000UNIT INUED 2 ,2020 [facility] (1,000UNIT) BY MOUTH L HCS TAB EVERY DAY FOR VITAMIN- D SUPPLEME NTATION. CYANOCOBALA INJECT INTRAM DISCONT 04/03/2023 [id number] BU Kristel [place] 04/02/ [place] MIN 1ML USCULA INUED 2 HALAFALLA 2021 [facility] 1000MCG/ML (1000MCG R O HCS INJ ) INTRAMUS CULAR EVERY DAY FOR 7 DAYS, THEN INJECT 1ML (1000MCG ) EVERY WEEK FOR 4 WEEKS, THEN INJECT 1ML (1000MCG ) EVERY MONTH FOR 3 MONTHS, THEN INJECT 1ML (1000MCG ) EVERY 3 MONTHS CYANOCOBALA TAKE TWO ORALLY DISCONT 02/13/2023 [id number] BORTHWICK 02/14/ [place] MIN 100MCG TABLETS INUED 2 ,2021 [facility] TAB BY MOUTH L H[facility] EVERY DAY FERROUS SO4 TAKE ONE ORALLY DISCONT 09/28/2022 [id number] B[place] /10/ [place] 325MG TAB TABLET INUED 2 ,2021 [facility] EVERY DAY FINASTERIDE TAKE ONE ORALLY DISCONT 09/21/2022 [id number] BORTHWICK 03/ [place] 5MG TAB TABLET INUED 2 ,2021 [facility] BY [facility]TH L [facility] EVERY DAY FOR PROSTATE FINASTERIDE TAKE ONE ORALLY DISCONT 03/23/2022 [id number] BORTHWICK 03/23/ [place] 5MG TAB TABLET INUED 1 ,2020 [facility] BY [facility]TH L [facility] EVERY DAY FOR PROSTATE FUROSEMIDE TAKE ONE ORALLY DISCONT 03/23/2022 [id number] B ORTHW[place] /10/ [place] 20MG TAB TABLET INUED 2 ,2020 [facility] EVERY DAY FOR LOWER EXTREMIT Y SWELLING ; OKAY TO TAKE AN EXTRA DOSE DAILY NEEDEDFO R INCREASE D SWELLING . FUROSEMIDE TAKE ONE ORALLY DISCONT 02/25/2022 [id number] MARK,ANGELICA 03/08/ [place] 20MG TAB TABLET INUED 1 GLAS R 2020 [facility] BY MOUTH (EDIT) HCS EVERY DAY FOR LOWER EXTREMIT Y SWELLING ; OKAY TO TAKE AN EXTRA DOSE DAILY NEEDED FOR INCREASE D SWELLING . GLIPIZIDE TAKE ONE ORALLY DISCONT 03/01/2021 [id number] L EIGH,ANGELICA 05/07/ [place] 10MG TAB TABLET INUE 1 GLAS R 2019 [facility] BY [facility]TH [facility] EVERY MORNING TO DECREASE BLOOD SUGAR TAKE 30 MINUTES BEFORE MEAL GLIPIZIDE TAKE ONE ORALLY DISCONT 06/22/2022 [id number] MILAN RTHWICK 06/22/ [place] 5MG TAB TABLET INUED 2 ,2020 [facility] BY [facility]TH L [facility] EVERY DAY FOR DIABETES -TAKE 30 MINUTES BEFORE MEAL MELATONIN TAKE 1 ORALLY DISCONT 02/03/2023 [id number] BORTHW ICK 02/02/ [place] 3MG CAP/TAB TABLET INUED 2 ,2021 [facility] BY MOUTH L HCS AT BEDTIME METFORMIN TAKE ORALLY DISCONT 04/05/2023 [id number] BORTHW ICK 04/05/ [place] HCL 1000MG ONE-HALF INUED 2 ,2021 [facility] TAB TABLET L HCS BY MOUTH TWO TIMES A DAY METFORMIN TAKE ORALLY DISCONT 03/23/2022 [id number] BORTHWI CK 03/23/ [place] HCL 1000MG ONE-HALF INUED 2 ,2020 [facility] VA TAB TABLET L HCS BY MOUTH TWO TIMES A DAY METFORMIN TAKE ONE ORALLY DISCONT 03/01/2021 [id number] LE IGH,ANGELICA 05/08/ [place] HCL 850MG TABLET INUE 1 GLAS R 2019 [facility] TAB BY MOUTH HCS THREE TIMES A DAY TO DECREASE BLOOD SUGAR METOPROLOL TAKE ORALLY DISCONT 04/05/2023 [id number] [place] 04/05/ [place] SUCCINATE ONE-HALF INUED 2 ,2021 [facility] 200MG TABLET L HCS TAB,SA BY MOUTH EVERY DAY METOPROLOL TAKE ORALLY DISCONT 03/23/2022 [id number] BORTHW ICK 0805/ [place] SUCCINATE ONE-HALF INUED 2 ,2020 [facility] 200MG TABLET L HCS TAB,SA BY MOUTH EVERY DAY METOPROLOL TAKE ONE ORALLY DISCONT 03/01/2021 [id number] MARKANGELICA 05/07/ [place] TARTRATE TABLET INUED 1 GLAS R 2019 [facility] 100MG TAB BY MOUTH HCS TWICE A DAY TO HELP CONTROL YOUR HEART RATE WITH ATRIAL FIBRILLA TION NYSTATIN APPLY TOPICA DISCONT 02/03/2023 [id number] BORTHWIC K 02/02/ [place] [id number] THIN LLY INUED 2 ,2021 [facility] M CREAM,TOP LAYER L HCS TOPICALL Y TWICE A DAY NEEDED FOR FUNGAL INFECTIO N CHANGE RELEASE MANAGER AL USE ONLY SKIN FOLDS PIOGLITAZON TAKE ONE ORALLY DISCONT 03/23/2022 [id number] [place] 03/23/ [place] E HCL 30MG TABLET INUED 2 ,2020 [place] [facility] TAB BY MOUTH L HCS EVERY MORNING FOR BLOOD SUGAR PIOGLITAZON TAKE ONE ORALLY DISCONT 03/24/2021 [id number] [place],K 04/06/ [place] E HCL 30MG TABLET INUED 1 ATHY 2019 [facility] TAB BY MOUTH (EDIT) HCS EVERY MORNING FOR BLOOD SUGAR RIVAROXABAN TAKE ONE ORALLY DISCONT 03/23/2022 [id number] B[place]THWICK 03/22/ [place] 20MG TAB TABLET INUED 2 ,2020 [facility] BY [facility]TH L [facility] EVERY EVENING WITH A MEAL TO PREVENT BLOOD CLOTS SERTRALINE TAKE ORALLY DISCONT 07/29/2022 [id number] BORTHW ICK 05/01/ [place] HCL 100MG ONE-HALF INUED 2 ,2021 [facility] TAB TABLET L HCS BY MOUTH EVERY DAY Allergies, Adverse Reactions, Alerts Combined list of [...] atus Comments Source Given By Number Code Tight Barrel Inspector PNEUMOCOCCAL complet [place] POLYSACCHARID 2021 ed [facility] E PPV23 HCS COVID-19 4 complet [place] (PFIZ[place]), 2021 ed [facility] MRNA, LNP-S, H CS PF, 30 MCG/0.3 ML DOSE COVID-19 3 complet PFR; [place] ([place]), 2020 ed [id number]; [place] [facility] MRNA, LNP-S, 02 HCS PF, 30 1 MCG/0.3 ML DOSE INFLUENZA, complet [place] INJECTABLE, 2020 ed [place] QUADRIVALENT, HCS PRESERVATIVE FREE COVID-19 2 complet PFR; [place] ([employer] [place]), 2020 ed [id number]; [place] [facility] MRNA, LNP-S, 02 HCS PF, 30 1 MCG/0.3 ML DOSE COVID-19 1 complet PFR; [place] ([employer] [place]), 2020 ed [id number]; [place] [facility] MRNA, LNP-S, 02 HCS PF, 30 1 MCG/0.3 ML DOSE INFLUENZA, complet [place] UNSPECIFIED 2019 ed [facility] FORMULATION HC S INFLUENZA, complet [place] HIGH DOSE 2018 ed CLIN IC SEASONAL ZOSTER 2 complet [place] RECOMBINANT 2018 ed [facility] ZOSTER 1 complet [place] RECOMBINANT 2018 ed [facility] INFLUENZA, complet [place] SEASONAL, 2018 ed [facility] INJECTABLE, HC S PRESERVATIVE FREE INFLUENZA, complet CANDELAR[place] HIGH DOSE 2017 ed CLIN IC SEASONAL INFLUENZA, complet [place] HIGH DOSE 2016 ed ER SEASONAL (CBOC ) PNEUMOCOCCAL complet wyet h, [place] CONJUGATE PCV 2016 ed [id number] , [facility] 13 01/02 HCS INFLUENZA, complet [place] HIGH DOSE 2014 ed [facility] SEASONAL HCS INFLUENZA, complet CANDEL[place] SEASONAL, 2013 ed CLIN IC INJECTABLE INFLUENZA, complet [place] UNSPECIFIED 2012 ed [facility] FORMULATION HC S ZOSTER LIVE complet merck , [place] 2012 ed [id number], [facility] [facility] 09/20/13 HCS TDAP complet [id number] M [place] 2012 ed A, [facility] [...] Interpretation Specimen Commen ts Source Name Range FINGERSTI GLUCOSE 367 70 - 100 09/ H Specimen Type : BLOOD [place] CK [/ Comment: Sa ve Result Nurse Notified [facility] GLUCOSE E] IN Ordering Provid er: ESSIE LEON CAPILLARY Report Releas ed Date/Time: May 11, 2022 11:53 AM BLOOD Reporting Lab: [facility] [address] [place] [address] Performing Lab: [facility] [address] [place] [address] BASIC CREATININE 1.6 0.7 - 1.2 09/23 H Specimen Ty pe: PLASMA [place] METABOLIC [MASS/VOLUM /2021 No comment entered. IS [facility] PANEL+MG E] IN SERUM Ordering P rovider: OG DIAL OR PLASMA Report Releas ed Date/Time: May 11, 2022 04:46 AM Reporting Lab: [facility] [place] [address] Performing Lab: [facility] [address] [place] [address] BASIC UREA 28 8 - 26 05/11 H Specimen Type: P LASMA [place] METABOLIC NITROGEN /2021 No comment en tered. IS [facility] PANEL+MG [MASS/VOLUM Ordering P rovider: OG DIAL] IN SERUM Report Rele ased Date/Time: May 11, 2022 04:46 AM OR PLASMA Reporting Lab : [facility] [place] [address] Performing Lab: [facility] [place] [place] [address] BASIC GLUCOSE 396 70 - 100 09 H Specimen Type: PLASMA [place] METABOLIC [MASS/VOLUM /2021 No comment entered. IS [facility] PANEL+MG E] IN SERUM Ordering P rovider: OG DIAL OR PLASMA Report Releas ed Date/Time: May 11, 2022 04:46 AM Reporting Lab: [facility] [place] [address] Performing Lab: [facility] [place] [address] BASIC SODIUM 150 136 - 145 09 H Specimen Type: PLASMA [place] METABOLIC [MOLES/VOLU /2021 No comment entered. IS [facility] PANEL+MG ME] IN Ordering Provi violeta: OG DIAL SERUM OR Report Release d Date/Time: May 11, 2022 04:46 AM PLASMA Reporting Lab: [facility] [place] [address] Performing Lab: [facility] [address] [place] [address] BASIC POTASSIUM 3.7 3.5 - 5.1 05/11 Specimen Typ e: PLASMA [place] METABOLIC [MOLES/VOLU /2021 No comment entered. IS [facility] PANEL+MG ME] IN Ordering Provi violeta: OG DIAL SERUM OR Report Release d Date/Time: May 11, 2022 04:46 AM PLASMA Reporting Lab: [facility] [address] [place] [address] Performing Lab: [facility] [place] [place] [address] BASIC CHLORIDE 120 98 - 107 05/11 H Specimen Type: PLASMA [place] METABOLIC [MOLES/VOLU /2021 No comment entered. IS [facility] PANEL+MG ME] IN Ordering Provi violeta: OG DIAL SERUM OR Report Release d Date/Time: May 11, 2022 04:46 AM PLASMA Reporting Lab: [facility] [address] [place] [address] Performing Lab: [facility] [place] [address] BASIC CARBON 23 22 - 29 05/11 Specimen Type: P LASMA [place] METABOLIC DIOXIDE, /2021 No comment en tered. IS [facility] PANEL+MG TOTAL Ordering Provi violeta: OG DIAL [MOLES/VOLU Report Rele ased Date/Time: May 11, 2022 04:46 AM ME] IN Reporting Lab: [facility] SERUM OR [address] [place] [facility] [address] PLASMA Performing Lab: [facility] [place] [address] BASIC CALCIUM 8.4 8.4 - 10.2 05/11 Specimen Type : PLASMA [place] METABOLIC [MASS/VOLUM No comment entered. IS [facility] PANEL+MG E] IN SERUM Ordering P rovider: OG DIAL OR PLASMA Report Releas ed Date/Time: May 11, 2022 04:46 AM Reporting Lab: [facility] [address] [place] [address] Performing Lab: [facility] [place] [place] [address] BASIC MAGNESIUM 2.1 1.6 - 2.6 05/11 Specimen Typ e: PLASMA [place] METABOLIC [MASS/VOLUM No comment entered. IS [facility] PANEL+MG E] IN SERUM Ordering P rovider: OG DIAL OR PLASMA Report Releas ed Date/Time: May 11, 2022 04:46 AM Reporting Lab: [facility] [place] [address] Performing Lab: [facility] [place] [address] BASIC ANION GAP 7 5 - 15 05/11 Specimen Type: PLASMA [place] METABOLIC IN SERUM OR /2021 No comment entered. IS [facility] PANEL+MG PLASMA Ordering Provi violeta: OG DIAL Report Released Date/Time: May 11, 2022 04:46 AM Reporting Lab: [facility] [address] [place] [facility] [address] Performing Lab: [facility] [place] [address] BASIC GLOMERULAR 42 60 05/11 L Specimen Type : PLASMA [place] METABOLIC FILTRATION /2021 No comment entered. IS [facility] PANEL+MG RATE/1.73 Ordering Pro vider: OG DIAL SQ Report Released Date/Time: May 11, 2022 04:46 AM M.PREDICTED Reporting L ab: [facility] [VOLUME [address] [place] [facility] [address] RATE/AREA] Performing L ab: [facility] IN SER[place], [address] [facility] [address] PLASMA OR BLOOD BY CREATININE- BASED FORMULA (CKD-EPI) LIVER BILIRUBIN.T 1.6 0.2 - 1.2 05/11 H Specimen T ype: PLASMA [place] FUNCTION OTAL /2021 No comment ente red. IS [facility] TESTS [MASS/VOLUM Ordering Pr ovider: ESSIE LEON] IN SERUM Report Rele ased Date/Time: May 11, 2022 09:08 AM OR PLASMA Reporting Lab : [facility] [address] [place] [facility] [address] Performing Lab: [facility] [address] [place] [facility] [address] LIVER ALKALINE 102 40 - 150 05/11 Specimen Type: PLASMA [place] FUNCTION PHOSPHATASE /2021 No comment entered. IS [facility] TESTS [ENZYMATIC Ordering Pro vider: ESSIE LEON ACTIVITY/VO Report Rele ased Date/Time: May 11, 2022 09:08 AM LUME] IN Reporting Lab: [facility] SERUM OR [address] [facility] [address] PLASMA Performing Lab: [facility] [address] [place] [facility] [address] LIVER ALANINE 42 <55 - 55 05/11 Specimen Type: PLASMA [place] FUNCTION AMINOTRANSF /2021 No comment entered. IS [facility] TESTS ERASE Ordering Provid er: ESSIE LEON [ENZYMATIC Report Relea sed Date/Time: May 11, 2022 09:08 AM ACTIVITY/VO Reporting L ab: [facility] LUME] IN [address] [facility] [address] SERUM OR Performing Lab : [facility] PLASMA [address] [place] [facility] [address] LIVER ASPARTATE 30 <34 - 34 05/11 Specimen Type : PLASMA [place] FUNCTION AMINOTRANSF /2021 No comment entered. IS [facility] TESTS ERASE Ordering Provid er: ESSIE LEON [ENZYMATIC Report Relea sed Date/Time: May 11, 2022 09:08 AM ACTIVITY/VO Reporting L ab: [facility] [place]] IN [address] [facility] [address] SERUM OR Performing Lab : [facility] PLASMA [address] [place] [facility] [address] LIVER GAMMA 52 <64 - 64 05/11 Specimen Type: PLASMA [place] FUNCTION GLUTAMYL /2021 No comment ent ered. IS [facility] TESTS TRANSFERASE Ordering Pr ovider: ESSIE LEON [ENZYMATIC Report Relea sed Date/Time: May 11, 2022 09:08 AM ACTIVITY/VO Reporting L ab: [facility] LUME] IN [address] [facility] [address] SERUM OR Performing Lab : [facility] PLASMA [address] [place] [facility] [address] LIVER BILIRUBIN.D 1.2 <0.5 - 0.5 05/11 H Specimen Type: PLASMA [place] FUNCTION IRECT /2021 No comment ente red. IS [facility] TESTS [MASS/VOLUM Ordering Pr ovider: ESSIE LEON] IN SERUM Report Rele ased Date/Time: May 11, 2022 09:08 AM OR PLASMA Reporting Lab : [facility] [address] [place] [facility] [address] Performing Lab: [facility] [address] [place] [facility] [address] CK,TOTAL CREATINE 16 39 - 208 05/11 L Specimen Type : PLASMA [place] KINASE /2021 No comment enter ed. IS [facility] [ENZYMATIC Ordering Pro vider: ESSIE LEON ACTIVITY/VO Report Rele ased Date/Time: May 11, 2022 09:08 AM LUME] IN Reporting Lab: [facility] SERUM OR [address] [place] [facility] [address] PLASMA Performing Lab: [facility] [address] [place] [address] BNP NATRIURETIC 59 <99 - 99 05/11 Specimen Ty pe: PLASMA [place] PEPTIDE No comment ent ered. IS [place] [facility] [MASS/VOLUM Ordering Pr ovider: ESSIE LEON] IN SERUM Report Rele ased Date/Time: May 11, 2022 09:15 AM OR PLASMA Reporting Lab : [facility] [place] [address] Performing Lab: [facility] [address] [place] [facility] [address] CBC LEUKOCYTES 15.93 4.0 - 11.0 05/11 H Specimen T ype: BLOOD [place] [#/VOLUME] /2021 No comment en tered. IS [facility] IN BLOOD BY Ordering Pr ovider: OG DIAL AUTOMATED Report Releas ed Date/Time: May 11, 2022 04:46 AM COUNT Reporting Lab: [facility] [address] [place] [facility] [address] Performing Lab: [facility] [place] [address] CBC ERYTHROCYTE 3.60 4.6 - 6.2 05/11 L Specimen T ype: BLOOD [place] S /2021 No comment enter ed. IS [facility] [#/VOLUME] Ordering Pro vider: OG DIAL IN BLOOD BY Report Rele ased Date/Time: May 11, 2022 04:46 AM AUTOMATED Reporting Lab : [facility] COUNT [address] [place] [facility] [address] Performing Lab: [facility] [address] [place] [facility] [address] CBC HEMOGLOBIN 11.2 13.5 - 05/11 L Specimen Type : BLOOD [place] [MASS/VOLUM 17.9 /2021 No comment e ntered. IS [facility] E] IN BLOOD Ordering Pr ovider: OG DIAL Report Released Date/Time: May 11, 2022 04:46 AM Reporting Lab: [facility] [address] [place] [facility] [address] Performing Lab: [facility] [address] [place] [facility] [address] CBC HEMATOCRIT 35.3 41 - 54 05/11 L Specimen Type : BLOOD [place] [VOLUME /2021 No comment enter ed. IS [facility] FRACTION] Ordering Prov ider: OG DIAL OF BLOOD BY Report Rele ased Date/Time: May 11, 2022 04:46 AM AUTOMATED Reporting Lab : [facility] COUNT [address] [place] [facility] [address] Performing Lab: [facility] [address] [place] [facility] [address] CBC MCV 98.1 80 - 100 05/11 Specimen Type: BLOOD [place] [ENTITIC /2021 No comment ente red. IS [facility] VOLUME] BY Ordering Pro vider: OG DIAL AUTOMATED Report Releas ed Date/Time: May 11, 2022 04:46 AM COUNT Reporting Lab: [facility] [address] [place] [facility] [address] Performing Lab: [facility] [address] [place] [id number] CBC MCH 31.1 27 - 33 05/11 Specimen Type: B LOOD [place] [ENTITIC /2021 No comment ente red. [facility] MASS] BY Ordering Provi violeta: OG DIAL AUTOMATED Report Releas ed Date/Time: May 11, 2022 04:46 AM COUNT Reporting Lab: [facility] [address] [place] [facility] [phone] Performing Lab: [facility] [address] [place] [id number] CBC MCHC 31.7 32.0 - 05/11 L Specimen Type: B LOOD [place] [MASS/VOLUM 37.5 /2021 No comment e ntered. [facility] E] BY Ordering Provid er: OG DIAL AUTOMATED Report Releas ed Date/Time: May 11, 2022 04:46 AM COUNT Reporting Lab: [facility] [address] [place] [facility] [address] Performing Lab: [facility] [address] [place] [facility] [address] CBC PLATELETS 231 150 - 400 05/11 Specimen Typ e: BLOOD [place] [#/VOLUME] /2021 No comment en tered. [facility] BY Ordering Pr ovider: OG DIAL AUTOMATED Report Releas ed Date/Time: May 11, 2022 04:46 AM COUNT Reporting Lab: [facility] [place] [address] Performing Lab: [facility] [address] [place] [address] CBC PLATELET 11.2 7.4 - 10.4 05/11 H Specimen Typ e: BLOOD [place] MEAN VOLUME /2021 No comment e ntered. [place] [facility] [ENTITIC Ordering Provi violeta: OG DIAL VOLUME] IN Report Relea sed Date/Time: May 11, 2022 04:46 AM BLOOD BY Reporting Lab: [facility] AUTOMATED [address] [facility] [address] COUNT Performing Lab: [facility] [address] [place] [facility] [address] CBC ERYTHROCYTE 15.2 11.5 - 05/11 H Specimen Typ e: BLOOD [place] DISTRIBUTIO 14.5 No comment e ntered. IS [facility] N WIDTH Ordering Provid er: OG DIAL [RATIO] BY Report Relea sed Date/Time: May 11, 2022 04:46 AM AUTOMATED Reporting Lab : [facility] COUNT [place] [address] Performing Lab: [facility] [address] [place] [facility] [address] FINGERSTI GLUCOSE 345 70 - 100 05/11 H Specimen Type : BLOOD [place] CK [MASS/VOLUM /2021 Comment: Sa ve Result Nurse Notified IS [facility] GLUCOSE E] IN Ordering Provid er: ESSIE LEON CAPILLARY Report Releas ed Date/Time: May 11, 2022 06:42 AM BLOOD Reporting Lab: [facility] [place] [address] Performing Lab: [facility] [address] [place] [facility] [address] FINGERSTI GLUCOSE 375 70 - 100 /23 H Specimen Type : BLOOD [place] CK [MASS/VOLUM /2021 Comment: Sa ve Result IS [facility] GLUCOSE E] IN Ordering Provid er: ESSIE LEON CAPILLARY Report Releas ed Date/Time: May 11, 2022 02:44 AM BLOOD Reporting Lab: [facility] [place] [address] Performing Lab: [facility] [address] [place] [facility] [address] FINGERSTI GLUCOSE 346 70 - 100 09/ H Specimen Type : BLOOD [place] CK [MASS/VOLUM /2021 Comment: Sa ve Result IS [facility] GLUCOSE E] IN Ordering Provid er: ESSIE LEON CAPILLARY Report Releas ed Date/Time: May 11, 2022 12:31 AM BLOOD Reporting Lab: [facility] [address] [place] [address] Performing Lab: [facility] [address] [place] [address] FINGERSTI GLUCOSE 245 70 - 100 05/10 H Specimen Type : BLOOD [place] CK [MASS/VOLUM Comment: Sa ve Result Nurse Notified IS [facility] GLUCOSE E] IN Ordering Provid er: ESSIE LEON CAPILLARY Report Releas ed Date/Time: May 10, 2022 11:50 PM BLOOD Reporting Lab: [facility] [address] [place] [address] Performing Lab: [facility] [address] [place] [address] Vital Signs Combined list of inpatient and outpatient Vital Signs from Department of Defense and Veterans Affairs, ranging from 12 months to all on record, depending upon the facility. Vital Sign Value Date Comments Source PAIN 6 05/11/2022 00:54:22 [place] [facility] PAIN 99 05/10/2022 00:30:58 [place] [facility] PAIN 99 05/09/2022 01:49:11 [facility] PAIN 99 05/08/2022 22:37:35 [place] [facility] PAIN 99 05/07/2022 03:23:43 [facility] Encounters Combined list of: 1) Encounters from Department of Veterans Affairs facilities going back up to the last 18 months. 2) Encounters from the Department of [facility] facilities going back up to 280 months. Location Location Encounter Encounter Reason Attending ADM DC Stat us Disposition Source Details Type Number For Provider Date Date Visit Outpatient 91544-8.61 01/26 [place] Encounter [id number] [facility] ORTHOTIC 29813-6.61 Oriana HUBBARD CH 02/03 [place] MGMT&TRAIN [id number] is: LAYLA [facility] G 1ST ENC ICD-10- HCS CM M20.40 Other hammer toe(s) (acquir ed), unspeci fied foot
with Provide r Comment s: Other Hammer Toe(s) (Acquir ed), unspeci fied Foot ORTHOPEDIC 04742-461 Diagnos HUBBARD, 02/27 [place] SHOE [id number] is: LAYLA J [facility] MODIFICA ICD-10- HCS NOS CM M20.40 Other hammer toe(s) (acquir ed), unspeci fied foot
with Provide r Comment s: Other Hammer Toe(s) (Acquir ed), unspeci fied Foot Outpatient 05249-203/09 [place] En[place] [id number] /2021 [facility] OFF[facility]P 35589-9 [facility] [place] [id number] is: BILL L [facility] 40-54 MIN ICD-10- HCS CM E11.9 Type 2 diabete s mellitu s without complic ations< br/>wit h Provide r Comment s: Type 2 diabete s mellitu s ([facility] [id number] 6) HC PRO 33039-0 Diagnos MARTHA SMITH 04/07 [place] PHONE CALL [id number] is: ANANT E [facility] 5-10 MIN ICD-10- HCS CM I50.32 Chronic diastol ic (conges tive) heart failure
wi th Provide r Comment s: Diastol ic heart failure (SCT 1339648 08) IMMUNIZATI 54202-4 Diagnos ROSIO, 05/15 [place] ADMIN [id number] is: THALIA GATICA [facility] ICD-10- HCS CM Z23 Encount er for immuniz ation<b r/>with Provide r Comment s: Encount er for Immuniz ation OFFICE O/P 64185-6 Diagnos TORIBIO, 06/21 [place] EST MOD [id number] is: BILL L GEMA S [facility] 30-39 MIN ICD-10- HCS CM I50.32 Chronic diastol ic (conges tive) heart failure
wi th Provide r Comment s: Diastol ic heart failure (SCT 4563407 08) Outpatient 09405-406/28 [place] En[place] [id number] [facility] 74030-2.61 NIRAJ SONI 07/06 [place] Encounter [id number] JOHN JB [facility] 54724-4.61 07/12 [place] Encounter [id number] [facility] OFF[facility] O/P 55827-3.61 Diagnos ELFERING,N 07/17 [place] EST [id number] is: ALEXIA M /2020 [facility] MINIMAL ICD-10- HCS PROB CM Z71.89 Other specifi ed anger control counselor ing<br/ >with Provide r Comment s: Other specifi ed [employer] ing OFFICE O/P 15908-7.61 Diagnos TORIBIO, 09/20 [place] EST MOD [id number] is: BILL L GEMA S [facility] 30-39 MIN ICD-10- HCS CM E11.9 Type 2 diabete s mellitu s without complic ations< br/>wit h Provide r Comment s: Type 2 diabete s mellitu s (SCT 2341829 6) Outpatient 98597-9.61 09/26 [place] En[place] [id number] /2021 [facility] HC PRO 56026-3.61 Diagnos KULWINDER FAIR 12/19 [place] PHONE CALL [id number] is: ABEBE J [facility] 5-10 MIN ICD-10- HCS CM Z71.89 Other specifi ed anger control counselor ing<br/ >with Provide r Comment s: Other specifi ed anger control counselor ing Outpatient 15214-4.61 Lisa GANDARA 12/19 [place] Encounter [id number] ERRY /2021 [facility] Outpatient 01739-7.61 0513 [place] En[place] [id number] /2021 [facility] 30506-7.61 05 [place] En[place] [id number] /2021 [facility] 18072-2.61 01/09 [place] En[place] [id number] /2021 [facility] 90848-9.61 01/17 [place] En[place] [id number] /2021 [facility] 34809-461 01/18 [place] En[place] [id number] /[facility] 73807-7 Diagnos TORIBIO, 02/02 [place] [id number] is: BILL L /2021 [facility] 40-54 MIN ICD-10- [facility] CM I48.20 Chronic atrial fibrill ation, unspeci fied
with Provide r Comment s: Chronic atrial fibrill ation (SCT 9209746 04) Outpatient 31858-761 NICHOL,T 02/07 [place] Encounter [id number] ERRY /2021 [facility] Outpatient 06518-9 MATTHEW,SA 02/12 [place] Encounter [id number] RA R /2021 [facility] Outpatient 98410-961 02/26 [place] En[place] [id number] /2021 [facility] Outpatient 77206-8 MATTHEW,SA 02/26 [place] Encounter [id number] RA R /2021 [facility] NRPSYC TST 26688-461 Diagnos FILIBERTO DOWNS 04/02 [place] EVAL [id number] is: N /2021 [facility] PHYS/QHP ICD-10- 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
with Provide r Comment s: Unspeci fied Dementi a without Behavio ral Disturb ance HC PRO 10042-7.61 Diagnos WAGNER KIRK 04/27 [place] PHONE CALL [phone] is: SE A [facility] 5-10 MIN ICD-10- HCS CM Z65.8 Oth problem s related to psychos ocial circums tances< br/>wit h Provide r Comment s: Other specifi ed Problem s Related to Psychos ocial Circums tances OFFICE O/P 55629-8.61 Diagnos TORIBIO, 04/30 [place] [id number] is: BILL L [facility] 40-54 MIN ICD-10- HCS CM I48.20 Chronic atrial fibrill ation, unspeci fied
with Provide r Comment s: Chronic atrial fibrill ation (SCT 5524082 04) Outpatient 21354-061 MATTHEW, 05/01 [place] Encounter [id number] RA [place] [facility] [place] [address] Diagnos POEPPING,H 05/02 [place] DIG [id number] is: SURENDRA L [facility] A ASSMT&MGMT ICD-10- HCS 5-10 CM Z51.81 Encount er for therape utic drug level monitor ing<br/ >with Provide r Comment s: Encount er for therape utic drug level monitor ing Outpatient 30777-5.61 05/05 [place] Encounter [id number] [facility] Outpatient 51517-7.61 SYSTEM,CIS 05/06 [place] Encounter [id number] -[facility] Outpatient 06195-4.61 SYSTEM,CIS 05/06 [place] Encounter [id number] -[facility] EMERGENCY 50699-9.61 Diagnos DENICE,K 05/06 [place] DEPT VISIT [id number] is: SHANDRA Hardy [place] ICD-10- HCS CM A41.9 Sepsis, unspeci fied organis m
w ith Provide r Comment s: Sepsis, unspeci fied Organis m Inpatient 80523-7.61 Admit CHAKRABORT 05/06 05/11 . [place] Encounter [id number] Reason: Y,BETO /2021 Autopsy was [facility] UTI NOT HCS SEPSIS< accomplished br/> . [place] [address]-7.61 Diagnos MARGUERITEKEITH 05/06 05/06 [place] DIG [id number] is: A FAHIM /2021 [facility] ASSMT&MGMT ICD-10- HCS 11-20 CM Z51.81 Encount er for therape utic drug level monitor ing<br/ >with Provide r Comment s: Encount er for therape utic drug level monitor ing Inpatient 57220-0.61 05/07 05/07 [place] En[place] [id number] /20[facility] 84571-7.61 SYSTEM,CIS 05/07 05/07 [place] En[place] [id number] -[place] /2021 [facility] Inpatient 66124-2.61 CHAKRABORT 05/07 05/07 [place] Encounter [id number] Y,BETO /2021 [facility] Inpatient 13418-2.61 05/07 [place] En[place] [id number] /2021 [facility] IN[facility]IENT 09785-0.61 Diagnos ISAI ROSALESI 05/07 05/07 [place] CONSULTATI [id number] is: KAU /2021 [facility] [place] ICD-10- HCS CM G40.89 Other seizure s
w ith Provide r Comment s: Other Seizure s INJ 13285-0.61 Diagnos TRUMAN LEIVA 05/07 05/07 [place] PERFLUTREN [id number] is: FAN /2021 [facility] [place] LIP ICD-10- HCS MICROS,ML CM I33.9 Acute and subacut e endocar ditis, unspeci fied
with Provide r Comment s: Acute and Subacut e Endocar ditis, unspeci fied EEG EXTND 85220-4.61 Diagnos GEERU 05/07 05/09 [place] MNTR [id number] is: PERT E /2021 [facility] 61-119 MIN ICD-10- HCS CM G40.209 Local-r el symptc epi w cmplx prt seiz,no t ntrct,w /o stat epi<br/ >with Provide r Comment s: Local-r el symptc epi w cmplx prt seiz,no t ntrct,w /o stat epi Inpatient 64984-6.61 ISAI SARAVIA 05/07 05/07 [place] Encounter [id number] RLA /2021 [facility] Inpatient 60900-4.61 SYSTEM,CIS 05/07 05/07 [place] Encounter [id number] -[place] /2021 [facility] Inpatient 23105-4.61 05/07 05/07 [place] Encounter [id number] /2021 [facility] Inpatient 98879-8.61 SYSTEM,CIS 05/08 05/08 [place] Encounter [id number] -[place] /2021 [facility] Inpatient 85958-6.61 05/08 05/08 [place] Encounter [id number] /2021 [facility] SUBSEQUENT 59628-3.61 Diagnos CASS ROSALES 05/08 05/08 [facility] [id number] is: KAU /2021 [facility] CARE ICD-10- HCS CM G40.89 Other seizure s
w ith Provide r Comment s: Other Seizure s Inpatient 71579-0.61 05/08 05/08 [place] Encounter [id number] /2021 [facility] Inpatient 18985-1.61 05/08 05/08 [place] Encounter [id number] /2021 [facility] Inpatient 74181-3.61 05/08 05/08 [place] Encounter [id number] /2021 [facility] Inpatient 41993-3.61 SYSTEM,CIS 05/09 05/09 [place] Encounter [id number] -[place] /2021 [facility] [place] [address]-3.61 Diagnos Kristel DE JESUS 05/09 05/09 [place] DIG [id number] is: OWEN B /2021 [facility] ASSMT&MGMT ICD-10- [facility] 11-20 CM Z51.81 Encount er for therape utic drug level monitor ing<br/ >with Provide r Comment s: Encount er for therape utic drug level monitor ing Inpatient 27718-5.61 05/09 05/09 [place] Encounter [id number] /2021 [facility] Inpatient 02906-3.61 05/09 05/09 [place] Encounter [id number] /2021 [facility] Inpatient 55174-8.61 SYSTEM,CIS 05/10 05/10 [place] Encounter [id number] -[place] /2021 [facility] Inpatient 66312-1.61 SYSTEM,CIS 05/11 05/11 [place] Encounter [id number] -[place] /2021 [facility] Inpatient 13452-5.61 05/11 05/11 [place] Encounter [id number] /2021 [facility] SUBSEQUENT 69688-9.61 Diagnos CASS ROSALES 05/11 05/11 [facility] [id number] is: KAU /2021 [facility] C[facility] ICD-10- HCS CM G93.49 Other encepha lopathy
[facility] Provide r Comment s: Other Encepha lopathy Inpatient 00263-7.61 05/11 05/11 [place] Encounter [id number] /2021 [facility] Outpatient 66376-7.61 05/11 [place] Encounter [id number] /2021 [facility] Social History Combined list of available smoking, tobacco, and other social history [facility]. Social History Type Response Date Comment Source Tobacco smoking status [facility] of [facility] use VA-TOBACCO NEVER USED 03/22/2021 [facility] History of tobacco use CO-TOBACCO NEVER USED 10/02/2019 [facility] History of tobacco use CO-TOBACCO NEVER USED 05/21/2018 [facility] History of tobacco use INPT NO TOBACCO USE IN 12/25/2017 [facility] LAST 30 DAYS History of tobacco use LIFETIME NON-TOBACCO 10/01/2017 [facility] USER History of tobacco use LIFETIME NON-TOBACCO 09/28/2016 [facility] USER History of tobacco use LIFETIME NON-TOBACCO 10/14/2015 [facility] USER History of tobacco use LIFETIME NON-TOBACCO 10/11/2014 [facility] USER History of tobacco use LIFETIME NON-TOBACCO 01/15/2007 [facility] USER Plan of Care List of future care activities from [facility] facilities. Additional future care activities may be listed in the Assessment and Plan section. Date/Time Care Activity Care Activity Detail Facility 07/23/2022 AMBULATORY - NEUROLOGY [place] [facility] Advance Directives List of completed, amended, or rescinded Advance Directives on record at [facility] facilities. An actual copy of the Directive is not included. Date Advance Directive Provider Source 04/18/2018 ADVANCE DIRECTIVE L[address] SIGALA [facility] 04/18/2018 ADVANCE DIRECTIVE DISCUSSION LARISSA SIGALA [facility] 12/23/2017 CLINICAL WARNING [facility] 05/11/[address] [facility]
--- OUTSIDE RECORDS SUMMARY | 2022-05-15 09:10 | XMS_ITS | Encounter Summary ---
:1935 Author Organization [facility] rs Address [address] [place] [address] Support Name Relationship Address Phone WADE LORENZO Unavailable [address] [place] [address] WADE LORENZO Unavailable [address] [place] [address] ARACELI MARSHALL Unavailable [address] [place] [address] MARILIA MARSHALLA Unavailable [address] [place] [address] Insurance Providers: All historical and current Section Date Range: From patient's date of to the date document was created.This section includes the names of all active insurance providers for the patient. Insurance Type of Plan Start of End of Group Member [facility] Coverage Name Policy Policy Number ID Provider's Bales's Relationship Coverage Coverage Telephone Name to Policy Number Bales [place] M[place] Aug 19, [id number] Kristel EDDY [facility] (WNR) ADVANTAGE (WNR) 2016 8 [id number] [phone] [facility] 1 [place] M[place] Aug 19, [id number] Kristel EDDY [facility] (WNR) ADVANTAGE (WNR) 2017 03 [id number] [phone] [facility] 1 Selected Encounter This section includes the information on record at [place] for the Encounter. Date/Time Encounter Type Encounter Description Reason Provider Source Jun 28, 2021 02:25 Outpatient Encounter TELEPHONE PRIMARY CARE IHE Encounter Template Text not used by [place] Plan of Treatment: Future Appointments (+ 6 months) and Future Tests (+/- 45 days) The Plan of Treatment section includes future care activities for the patient from all [facility]. This section includes future appointments and future orders which are active, pending orscheduled.Future Appointments This section includes appointments that were scheduled to occur 6 months from the date of the Encounter, up to a maximum of 20 appointments. The data comes from all [place] treatment facilities. Appointment Date/Time Appointment Type Appointment Facili ty Name Jul 17, 2021 11:00 AM AMBULATORY - MEDICINE [facility] Sep 20, 2021 06:45 AM AMBULATORY - NONE [facility] Sep 20, 2021 07:45 AM AMBULATORY - MEDICINE [facility] December 19, 2021 11:01 AM AMBULATORY - NONE [facility] December 20, 2021 06:45 AM AMBULATORY - NONE [facility] Lab Results: +/- 30 days of the [...] Interpretation Reference Range Comment Jul 17, 2021 [facility] MICROALBUMIN/CREATININE RATIO Specimen Type: URINE 11:06 AM URINE No comment enter ed. Ordering Provid er: BILL ROONEY Report Released Date/Time: Jul 06, 2021 05:15 PM Reporting Lab: [facility] [address] [facility] [address] [facility] [id number] Performing [facility] [id number] CREATININE,UR RANDOM 94.9 58.0-161. 0 ALB/CREAT RATIO,UR 122.8 H <29.9 MICROALBUMIN,UR 116.5 H <29.9 Jun 21, 2021 06:43 [facility] HEMOGLOBIN A1C Specimen Type: BLOOD AM No comment enter ed. Ordering Provid er: BILL ROONEY Report Released Date/Time: Mar 22, 2021 08:23 AM Reporting Lab: [facility] [address] [facility] [id number] Performing Lab: [facility] [address] [facility] [address] HEMOGLOBIN A1C 7.7 H 4.0-6.0 Jun 21, 2021 [facility] BASIC METABOLIC Specimen Typ e: PLASMA 06:43 AM PANEL+MG No comment enter ed. Ordering Provid er: BILL ROONEY Report Released Date/Time: Mar 22, 2021 08:23 AM Reporting Lab: [facility] [address] [facility] [id number] Performing Lab: [facility] [address] CREATININE 1.4 H 0.7-1.2 UREA NITROGEN 17 8-26 GLUCOSE 176 H 74-100 SODIUM 141 136-145 POTASSIUM 3.9 3.5-5.1 CHLORIDE 110 H 98-107 CO2 21 L 22-29 CALCIUM 9.0 8.4-10.2 MAGNESIUM 1.7 1.6-2.6 ANION GAP 10 5-15 ESTIMATED GFR(eGFR) 48 L >60 Jun 21, 2021 06:43 AM [facility] CBC Specim en Type: BLOOD No comment enter ed. Ordering Provid er: BILL ROONEY Report Released Date/Time: Mar 22, 2021 11:13 AM Reporting Lab: [facility] [id number] Performing Lab: [facility] [address] WBC 6.71 4.0-11.0 RBC 3.68 L 4.6-6.2 [...] smoking and tobacco-related health factors from the [place] facility where the Encounter took place.Current Smoking Status This section includes the most current smoking, or tobacco-related health factor, from the [place] facility where the Encounter took place. Date/Time Current Smoking Status Comment Facility Mar 22, 2021 07:45 AM SD-TOBACCO NEVER USED [facility] Tobacco Use History This section includes a history of the smoking, or tobacco- related health factors, that were collected on or before the date of the Encounter. The data comes from the [place] facility where the Encounter took place. Date/Time Smoking Status/Tobacco Use Comment Xavi chanel Oct 02, 2019 10:02 AM VA-TOBACCO NEVER USED [place] [facility] May 21, 2018 09:05 AM [place]-TOBACCO NEVER USED [place] [facility] December 25, 2017 06:14 PM INPT NO TOBACCO USE IN LAST 30 DAYS [facility] Oct 01, 2017 07:34 AM LIFETIME NON-TOBACCO USER [facility] Sep 28, 2016 08:44 AM LIFETIME NON-TOBACCO USER [facility] Oct 14, 2015 07:52 AM LIFETIME NON-TOBACCO USER [facility] Oct 11, 2014 07:59 AM LIFETIME NON-TOBACCO USER [facility] January 15, 2007 07:55 AM LIFETIME NON-TOBACCO USER [facility] Advance Directives: All historical and current Section [...] Apr 18, 2018 ADVANCE DIRECTIVE LARISSA SIGALA [facility] Apr 18, 2018 ADVANCE DIRECTIVE DISCUSSION RAE SIGALAN [facility] December 23, 2017 CLINICAL WARNING [facility] May 11, 2003 ADVANCE DIRECTIVE BERT CASILLAS [facility] Encounter Notes: All associated encounter notes This section contains the clinical notes associated to the Encounter. Date/Time Encounter Note(s) Provider Source Jun 28, 2021 02:28 PM REPORT OF CONTACT: ZARA SONI [facility] LOCAL TITLE: PATIENT CONTACT NOTE STANDARD TITLE: REPORT OF CONTACT DATE OF NOTE: JUN 28, 2021@14:28 ENTRY DATE: JUN 28, 2021@14:28:57 AUTHOR: ZARA SONI EXP COSIGNER: URGENCY: STATUS: COMPLETED SUBJECT: COVID-19 PREVENTIVE HEALTH INVENTORY Patient contact Name of : LUISANA EDDY Name/Relationship of Contact if other than Veter an: Date & Time of Contact: Jun@14:29 Type of Contact: Telephone Reason for Contact: [facility] PACT PREVENTIVE HEALTH SCREENING Glass Laminating Operator attempted to contact via telephon e x 1 as part of the [facility] PACT COVID-19 Preventative Health Screening Team to p erform [facility] Preventative Health Screenings as indicated by [facility] PACT Team. No answer at home number or mobile number. Glass Laminating Operator left a general voicemail on mobile number stating no need to call back per [facility] Preventative Health pr otocol. [facility] PACT Preventative Health Screening Team will attempt again at a la ter date. [facility] PACT Preventive Health screenings can also be completed at Veter an's next office visit by [facility] PACT Team if unable to reach [place] per ofelia wang. No further action is necessary at this time. /es/ ZARA SONI RN Signed: 06/28/2021 14:31
--- OUTSIDE RECORDS SUMMARY | 2022-05-15 09:10 | XMS_ITS | Encounter Summary ---
:1935 Author Organization [facility] rs Address [address] [place] [address] Support Name Relationship Address Phone WADE LORENZO Unavailable [address] [place] [address] WADE LORENZO Unavailable [address] [place] [address] ARACELI MARSHALL Unavailable [address] [place] [address] ARACELI MARSHALL Unavailable [address] [place] [address] Insurance Providers: All historical and current Section [...] Bales [place] Aug 19, [id number] Kristel EDDY [facility] (WNR) ADVANTAGE (WNR) 2017 8 [id number] [phone] [facility] 1 [place] MEDICARE M[place] Aug 19, [id number] Kristel EDDY [facility] (WNR) ADVANTAGE (WNR) 2016 8 [id number] [phone] [facility] 1 Selected Encounter This section includes the information on record at CT for the Encounter. Date/Time Encounter Type Encounter [...] 2021 PRIMARY Encounter for SAIRA AVELAR [place] 11:08 AM immunization IE [facility] Plan of Treatment: Future Appointments (+ 6 months) and Future Tests (+/- 45 days) The Plan of Treatment section includes future care activities for the patient from all CT treatmentfacilities. This section includes future appointments and future orders which are active, pending orscheduled.Future Appointments This section includes appointments that were scheduled to occur 6 months from the date of the Encounter, up to a maximum of 20 appointments. The data comes from all CT treatment facilities. Appointment Date/Time Appointment Type Appointment Facili ty Name Jun 21, 2021 06:45 AM AMBULATORY [facility] Jun 21, 2021 07:[address] [facility] Jul 17, 2021 11:00 AM AMBULATORY MEDICINE [facility] Sep 20, 2021 06:45 AM AMBULATORY [facility] Sep 20, 2021 07:45 AM AMBULATORY MEDICINE [facility] Immunizations: All administered on the encounter date This section contains immunizations associated to the Encounter. Immunization Series Date Issued Reaction Comments COVID-19 (Q Chip), MRNA, LNP-S, 3 May 15, 2021 PFR; [id number]; 06/18/2021 PF, 30 MCG/0.3 ML DOSE INFLUENZA, INJECTABLE, May 15, 2021 QUADRIVALENT, PRESERVATIVE FREE Social History: Smoking Status (Most current) and Tobacco Use (All prior to encounter date) This section includes the most current, and the historical, smoking and tobacco-related health factors from the CT facility where the Encounter took place.Current Smoking Status This section includes the most current smoking, or tobacco-related health factor, from the CT facility where the Encounter took place. Date/Time Current Smoking Status Comment Facility Mar 22, 2021 07:[address] USED [place] [facility] Tobacco Use History This section includes a history of the smoking, or tobacco- related health factors, that were collected on or before the date of the Encounter. The data comes from the CT facility where the Encounter took place. Date/Time Smoking Status/Tobacco Use Comment [facility] Oct 02, 2019 10:[address] USED [place] [facility] May 21, 2018 09:[address] US[place] [facility] December 25, 2017 06:14 [...] ALL of a patient's completed or amended CT Advance and Rescinded Directives. The entries below indicate that a directive exists for the patient, but an actual copy is not included with this document. The data comes from all CT facilities. Date Advance Directives Provider Source Apr 18, 2018 ADVANCE DIRECTIVE LARISSA SIGALA [facility] Apr 18, 2018 ADVANCE DIRECTIVE DISCUSSION [facility] December 23, 2017 CLINICAL WARNING FARHAT [facility] May 11, [address] AD[address]ANCE [address] BERT [address] [facility] Encounter Notes: All associated encounter notes This section contains the clinical notes associated to the Encounter. Date/Time Encounter Note(s) Provider Source May 15, 2021 11:08 AM IMMUNIZATION NOTE: THALIA AVELAR [facility] LOCAL TITLE: INFLUENZA VACCINATION STANDARD TITLE: IMMUNIZATION [...] 0.5 ml IM today in Left Deltoid. [employer]: [employer]. Lot # and Expiration Date: Lot#:[id number], EXP :01/31/2022 Administered by protocol/policy Complications: None /es/ THALIA AVELAR RN Signed: 05/15/2021 11:09 May 15, 2021 11:07 AM NURSING IMMUNIZATION NOTE: THALIA AVELAR [facility] LOCAL TITLE: VAAES OUTPATIENT COVID VACCINE ADM INISTRATION STANDARD TITLE: NURSING IMMUNIZATION NOTE DATE OF NOTE: MAY 15, 2021@11:07 ENTRY DATE: MAY 15, 2021@11:07:55 AUTHOR: THALIA AVELAR EXP COSIGNER: URGENCY: STATUS: COMPLETED The patient was given the VIS for this vaccine w [facility] lists the benefits and side effects [...] to receive the vaccine. The patient received [employer] COVID-19 Vaccine 0. 3 ml IM. MVX (Manuf); Lot#; Exp Date: PFR; [id number]; 06/18 Administration Anatomic site: Right Deltoid Vaccine administered without complications. The patient was advised to remain in the facility for 15 minutes p ost vaccination. The patient was given a completed COVID-19 vaccination record card, a copy of the CT Side Effects and Adverse Events Reporting Fact Sheet and ins tructed on how to report any adverse reactions. Vaccine administered by policy/protocol. /ronni/ THALIA AVELAR RN Signed: 05/15/2021 11:08
--- OUTSIDE RECORDS SUMMARY | 2022-05-15 09:10 | XMS_ITS | Encounter Summary ---
:1935 Author Organization [facility] rs Address [address] [place] [address] Support Name Relationship Address Phone WADE LORENZO Unavailable [id number] [place] [address] WADE LORENZO Unavailable [address] [place] [address] ARACELI MARSHALL Unavailable [address] [facility] [place] [address] MARILIA MARSHALLA Unavailable [address] [place] [address] Insurance Providers: All historical and current Section [...] Bales [place] M[place] Aug 19, [id number] Kristel [facility] (WNR) 2017 8 [id number] [phone] [facility] 1 [place] MEDIC[place] M[place] Aug 19, [id number] 800 Kristel [facility] (W[facility]ANTAGE (WNR) 2017 03 [id number] [phone] [facility] 1 Selected Encounter This section includes the information on record at [place] for the Encounter. Date/Time Encounter Type Encounter Reason Provider Source Description Jun 21, 2021 OFFICE O/P EST PRIMARY ICD-10-CM BETH GUNTER 07:45 AM MOD 30-39 MIN CARE/MEDICINE I50.32 Chronic SSA L diastolic (congestive) heart failure with Provider Comments: Diastolic heart failure ([facility] [id number]) IHE Encounter Template Text not used by [place] Assessments - Encounter Diagnoses This section includes the primary and secondary diagnoses documented for the Encounter. Date/Time Primary/Secondary Diagnosis Name Provider Source Diagnosis Jun 21, 2021 PRIMARY Chronic BETH GUNTER V Wayne 08:25 AM diastolic SSA L HCS (congestive) heart failure Plan of Treatment: Future Appointments (+ 6 months) and Future Tests (+/- 45 days) The Plan of Treatment section includes future care activities for the patient from all [place] treatmentfacilities. This section includes future appointments and future orders which are active, pending orscheduled.Future Appointments This section includes appointments that were scheduled to occur 6 months from the date of the Encounter, up to a maximum of 20 appointments. The data comes from all [place] treatment facilities. Appointment Date/Time Appointment Type Appointment Facili ty Name Jul 17, 2021 11:00 AM AMBULATORY - MEDICINE [facility] Sep 20, 2021 06:[address] [facility] Sep 20, 2021 07:45 AM AMBULATORY - MEDICINE [facility] December 19, 2021 11:[address] [facility] Lab Results: +/- 30 days of the encounter This section includes the Chemistry and Hematology Lab Results on record with [place] for the patient. Radiology Reports and Pathology Reports are provided separately, in subsequent sections.Lab Results This section contains the Chemistry/Hematology Results that were resulted 30 days before or 30 daysafter the date of the Encounter. Date/Time Source Result Type Result - Unit Interpretation Reference Range Comment Jul 17, 2021 [facility] MICROALBUMIN/CREATININE RATIO Specimen Type: URINE 11:06 AM URINE No comment enter ed. Ordering Provid er: TORIBIOBILL Felipe Report Released Date/Time: Jul 06, 2021 05:15 PM Reporting Lab: [facility] [address] Performing Lab: [facility] I [facility] [address] CREATININE,UR RANDOM 94.9 58.0-161. 0 ALB/CREAT RATIO,UR 122.8 H <29.9 MICROALBUMIN,UR 116.5 H <29.9 Jun 21, 2021 06:43 [facility] HEMOGLOBIN A1C Specimen Type: BLOOD AM No comment enter ed. Ordering Provid er: BILL GUNTER Report Released Date/Time: Mar 22, 2021 08:23 AM Reporting Lab: [facility] [address] [facility] [address] Performing Lab: [facility] [address] [facility] [address] HEMOGLOBIN A1C 7.7 H 4.0-6.0 Jun 21, 2021 [facility] BASIC METABOLIC Specimen Typ e: PLASMA 06:43 AM PANEL+MG No comment enter ed. Ordering Provid er: BILL GUNTER Report Released Date/Time: Mar 22, 2021 08:23 AM Reporting Lab: [facility] [address] [facility] [address] Performing Lab: [facility] [address] [facility] [address] CREATININE 1.4 H 0.7-1.2 UREA NITROGEN 17 8-26 GLUCOSE 176 H 74-100 SODIUM 141 136-145 POTASSIUM 3.9 3.5-5.1 CHLORIDE 110 H 98-107 CO2 21 L 22-29 CALCIUM 9.0 8.4-10.2 MAGNESIUM 1.7 1.6-2.6 ANION GAP 10 5-15 ESTIMATED GFR(eGFR) 48 L >60 Jun 21, 2021 06:43 AM [facility] CBC Specim en Type: BLOOD No comment enter ed. Ordering Provid er: BILL GUNTER Report Released Date/Time: Mar 22, 2021 11:13 AM Reporting Lab: [facility] [address] [facility] [address] Performing Lab: [facility] [address] [facility] [address] WBC 6.71 4.0-11.0 RBC 3.68 L 4.6-6.2 HGB 10.8 L 13.5-17.9 HCT 34.7 L 41-54 MCV 94.3 80-100 MCH 29.3 27-33 MCHC 31.1 L 32.0-37.5 PLT 249 150-400 MPV 10.0 7.4-10.4 RDW 15.0 H 11.5-14.5 Vital Signs: All taken on the encounter date This section contains inpatient and outpatient Vital Signs collected on the date of the Encounter. Date/Time Temperature Pulse Blood Respiratory SP02 Pain Height Weight Edvin dy Source Pressure Rate Mass Index Jun 21, 133/77 [place] 2020 07:50 mm[Hg] [facility] Jun 21, 95.2 F 97 154/82 16 /min 96 % 0 283.2 37 [place] 2020 07:47 /min mm[Hg] lb [facility] Social History: Smoking Status (Most current) and Tobacco Use (All prior to encounter date) This section includes the most current, and the historical, smoking and tobacco-related health factors from the [place] facility where the Encounter took place.Current Smoking Status This section includes the most current smoking, or tobacco-related health factor, from the [place] facility where the Encounter took place. Date/Time Current Smoking Status Comment Facility Mar 22, 2021 07:45 AM [place]-[facility]CO [facility] Tobacco Use History This section includes a history of the smoking, or tobacco- related health factors, that were collected on or before the date of the Encounter. The data comes from the [place] facility where the Encounter took place. Date/Time Smoking Status/Tobacco Use Comment [facility] Oct 02, 2019 10:02 AM [place]-TO[place]CO [place] USED [place] [facility] May 21, 2018 09:05 AM [place]-TOBACCO [place] USED [place] [facility] December 25, 2017 06:14 PM INPT NO TOBACCO USE IN LAST 30 DAYS [facility] Oct 01, 2017 07:34 AM LIFETIME NON-TOBACCO USER [facility] Sep 28, 2016 08:44 AM LIFETIME NON-TOBACCO USER [facility] Oct 14, 2015 07:52 AM LIFETIME NON-TOBACCO USER [facility] Oct 11, 2014 07:59 AM LIFETIME NON-TOBACCO USER [facility] January 15, 2007 07:55 AM LIFETIME NON-TOBACCO USER [facility] Advance Directives: All historical and current Section Date Range: From patient's date of to the date document was created. This section includes ALL of a patient's completed or amended [place] Advance and Rescinded Directives. The entries below indicate that a directive exists for the patient, but an actual copy is not included with this document. The data comes from all [facility]. Date Advance Directives Provider Source Apr 18, 2018 ADVANCE DIRECTIVE LARISSA SIGALA [facility] Apr 18, 2018 ADVANCE DIRECTIVE DISCUSSION LARISSA SIGALA [facility] December 23, 2017 CLINICAL WARNING FARHAT SCHMID [facility] May 11, 2003 ADVANCE DIRECTIVE BERT CASILLAS [facility] Encounter Notes: All associated encounter notes This section contains the clinical notes associated to the Encounter. Date/Time Encounter Note(s) Provider Source Jun 21, 2021 08:14 AM INTERNAL MEDICINE NOTE: BILL GUNTER [facility] LOCAL TITLE: MEDICINE CLINIC NOTE STANDARD [...] 2021 -follows with urology Dr Moreno at [facility] -Continue finasteride 5 mg daily Chronic kidney disease stage 3 - Creatinine at baseline today (1.4) Diastolic heart failure HTN Dyslipidemia Chronic atrial fibrillation -Managed by cardiology and in [place], Dr. Chu is -Current regimen Metoprolol succinate 100 mg daily Rivaroxaban 20 mg daily Atorvastatin 10 mg daily Lasix 20 mg daily Mild anemia, asymptomatic -Repeat CBC in 3 months with iron studies -Patient entirely asymptomatic at this time. 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 Sweeney -Continue intermittent prosthetics referrals [...] Has appointment coming up with a new typing bookkeeper. Also maintains a community primary care physicia n Dr. 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 Dr. Berkowitz re started glipizide 5 mg daily Patient has had no polyuria polydipsia o r episodes of hypoglycemia of which he is aware Active problems - Computerized Problem List is t he source for the followin. Type 2 diabetes mellitus (SNOMED CT 70631132 ) 2. OBESITY, UNSP 3. Psoriasis * 4. Social and personal history finding - Lives alone. Has brother in [place]. Friends felipe breaux. 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 5. History of adenomatous polyp of colon - Last c-scope 05/09/15 at [place]. Two small polyp s. - 5 year follow up if appropriate. 6. Elevated PSA - follows with urology at [place] - with BPH on terazosin - February 2021: TURP at [place] 7. Chronic kidney disease stage 3 8. Diastolic heart failure - w/ HTN and dyslipidemia 9. Chronic atrial fibrillation - metoprolol and rivaroxaban 10. history of hospitalization - January 2021: Bacteremia secondary to urinary ou tflow obstruction from BPH - underwent a TURP at [place] February 2021 11. corns and calluses - followed by podiatry in the community in [facility] 12. Gout - on allopurinol Family/social [...] other study results associated with today's visit. /ronni/ Bill Gunter MD Physician Signed: 06/21/2021 08:25 Jun 21, 2021 07:52 AM DIABETOLOGY NOTE: VINCENT READ [facility] LOCAL TITLE: GLUCOSE PATIENT METER DATA STANDARD TITLE: DIABETOLOGY NOTE DATE OF NOTE: JUN 21, 2021@07:52 ENTRY DATE: JUN 21, 2021@07:52:49 AUTHOR: VINCENT READ EXP COSIGNER: URGENCY: STATUS: COMPLETED Name: Luisana Eddy : 1935 ID: [id number] Information from ACCU-CHEK 360 Diabetes Manageme nt [...] mg/dL 00:00- 05:30- 08:00- 11:00- 12:30- 17:00- :30 - :30- :30 08:00 11:00 12:30 17:00 [...] 6:58 AM 144 End of information from [facility] [facility] /ronni/ VINCENT READ LPN LPN Signed: 06/21/2021 07:53 Receipt Acknowledged By: * AWAITING SIGNATURE * BILL GUNTER Jun 21, 2021 07:48 AM INTERNAL MEDICINE OUTPATIENT NOTE: VINCENT READ [facility] LOCAL TITLE: MEDICINE CLINIC NURSING NOTE [...]
--- OUTSIDE RECORDS SUMMARY | 2022-05-15 09:12 | XMS_ITS | Encounter Summary ---
:1935 Author Organization [facility] rs Address [address] [place] [address] Support Name Relationship Address Phone WADE LORENZO Unavailable [address] [place] [address] WADE LORENZO Unavailable [address] [place] [address] ARACELI MARSHALL Unavailable [address] [place] [address] MARILIA MARSHALLA Unavailable [address] [place] [address] Insurance Providers: All historical and current Section [...] Bales [place] M[place] Aug 19, [id number] Kristel [facility]) [facility] 8 [id number] [phone] [facility] 1 [place] MED[place] M[place] Aug 19, [id number] 800 Kristel [facility]WNR[facility] 2017 03 [id number] [phone] [facility] 1 Selected Encounter This section includes the information on record at [place] for the Encounter. Date/Time Encounter Type Encounter Reason Provider Source Description Jul 17, 2021 OFFICE O/P EST PRIMARY ICD-10-CM Z71.89 DORCAS CONTI 11:00 AM MINIMAL PROB CARE/MEDICINE Other specified E M counseling with Provider Comments: Other specified Counseling IHE Encounter Template Text not used by [place] Assessments - Encounter Diagnoses This section includes the primary and secondary diagnoses documented for the Encounter. Date/Time Primary/Secondary Diagnosis Name Provider Source Diagnosis Jul 17, 2021 PRIMARY Other specified ASAD CONTI [place] 11:04 AM counseling E M [facility] Plan of Treatment: Future Appointments (+ 6 months) and Future Tests (+/- 45 days) The Plan of Treatment section includes future care activities for the patient from all [place] treatmentfacilities. This section includes future appointments and [...] 20, 2021 07:45 AM AMBULATORY - MEDICINE [facility] December 19, 2021 11:01 AM AMBULATORY - NONE [facility] December 20, 2021 06:45 AM AMBULATORY - [facility] Lab Results: +/- 30 days of [...] Reporting Lab: [facility] [address] [facility] [address] Performing Lab: [facility] [address] [facility] [address] CREATININE,UR RANDOM 94.9 58.0-161. 0 ALB/CREAT RATIO,UR 122.8 H <29.9 MICROALBUMIN,UR 116.5 H <29.9 Jun 21, 2021 06:43 [facility] HEMOGLOBIN A1C Specimen Type: BLOOD AM No comment enter ed. Ordering Provid er: BILL ROONEY Report Released Date/Time: Mar 22, 2021 08:23 AM Reporting Lab: [facility] [address] [facility] [address] Performing Lab: [facility] [address] [facility] [address] HEMOGLOBIN A1C 7.7 H 4.0-6.0 Jun 21, 2021 [facility] BASIC METABOLIC Specimen Typ e: PLASMA 06:43 AM PANEL+MG No comment enter ed. Ordering Provid er: BILL ROONEY Report Released Date/Time: Mar 22, 2021 08:23 AM Reporting Lab: [facility] [address] [facility] [address] Performing Lab: [facility] [address] [facility] [address] CREATININE 1.4 H 0.7-1.2 UREA NITROGEN 17 8-26 GLUCOSE 176 H 74-100 SODIUM 141 136-145 POTASSIUM 3.9 3.5-5.1 CHLORIDE 110 H 98-107 CO2 21 L 22-29 CALCIUM 9.0 8.4-10.2 MAGNESIUM 1.7 1.6-2.6 ANION GAP 10 5-15 ESTIMATED GFR(eGFR) 48 L >60 Jun 21, 2021 06:43 AM [facility] CBC Specim en Type: BLOOD No comment enter ed. Ordering Provid er: BILL ROONEY Report Released Date/Time: Mar 22, 2021 11:13 AM Reporting Lab: [facility] [address] [facility] [address] Performing Lab: [facility] [address] WBC 6.71 4.0-11.0 RBC 3.68 L 4.6-6.2 [...] 22, 2021 07:45 AM [place] Tobacco Use History This section includes a history of the smoking, or tobacco- related health factors, that were collected on or before the date of the Encounter. The data comes from the [facility] where the Encounter took place. Date/Time Smoking Status/Tobacco Use Comment Xavi chanel Oct 02, 2019 10:02 AM [place]-TOBACCO [place] USED [place] [facility] May 21, 2018 09:05 AM [place]-TOBACCO NEVER USED [place] [facility] December 25, 2017 06:14 [...] 18, 2018 ADVANCE DIRECTIVE DISCUSSION LARISSA SIGALA [facility] December 23, 2017 CLINICAL WARNING FARHAT SCHMID [facility] May 11, 2003 ADVANCE DIRECTIVE BERT CASILLAS [facility] Encounter Notes: All associated encounter notes This section contains the clinical notes associated to the Encounter. Date/Time Encounter Note(s) Provider Source Jul 17, 2021 11:03 AM NURSING OUTPATIENT NOTE: DOROTHY CONTI [facility] LOCAL TITLE: MEDICINE CLINIC NURSING RN NOTE STANDARD TITLE: NURSING OUTPATIENT NOTE DATE OF NOTE: JUL 17, 2021@11:03 ENTRY DATE: JUL 17, 2021@11:03:43 AUTHOR: DOROTHY CONTI EXP COSIGNER: URGENCY: STATUS: COMPLETED TYPE OF VISIT: Nurse Clinic REASON FOR VISIT: ALLERGIES: FACILITY ALLERGY/ADR -------- No Remote Allergy/ADR Data available for this chaz meyer [facility] CEPHALEXIN [facility] SIMVASTATIN PLAN: EDUCATION: PARTICIPANT(s): Patient Clean Catch Urine Instructed in collection of clean catch urine. Printed instructions provided and participant(s) is able to repeat t hese instructions accurately. Urinalysis sent to lab /es/ DOROTHY CONTI RN RN, BSN Signed: 07/17/2021 11:04
--- OUTSIDE RECORDS SUMMARY | 2022-05-15 09:12 | XMS_ITS | Encounter Summary ---
:1935 Author Organization [facility] rs Address [address] [place] [address] Support Name Relationship Address Phone WADE LORENZO Unavailable [address] [place] [address] WADE LORENZO Unavailable [address] [place] [address] JOANNA ARACELI Unavailable [address] [place] [address] ARACELI MARSHALL Unavailable [address] [place] [address] Insurance Providers: All historical and current Section [...] Bales [place] Aug 19, [id number] 800 Krist[address] [facility] (WNR) ADVANTAGE (WNR) 2016 8 [id number] [phone] [facility] 1 [place] MEDICARE M[place] Aug 19, [id number] 800 Kristel [facility] (WNR) ADVANTAGE (WNR) 2017 03 [id number] [phone] [facility] 1 Selected Encounter This [...] activities for the patient from all [place] [facility] hospital[facility]. This section includes future appointments and future orders which are active, pending orscheduled.Future Appointments This section includes appointments that were scheduled to occur 6 months from the date of the Encounter, up to a maximum of 20 appointments. The data comes from all [place] treatment facilities. Appointment Date/Time Appointment Type Appointment Facili ty Name Jul 17, 2021 11:00 AM AMBULATORY - MEDICINE [facility] Sep 20, 2021 06:45 AM AMBULATORY - NONE [facility] Sep 20, 2021 07:45 AM AMBULATORY - MEDICINE [facility] December 19, 2021 11:01 AM AMBULATORY - NONE [facility] December 20, 2021 06:45 AM AMBULATORY - NONE [facility] Lab Results: +/- 30 days [...] Interpretation Reference Range Comment Jul 17, 2021 [facility] MICROALBUMIN/CREATININE RATIO Specimen Type: URINE 11:06 AM URINE No comment enter ed. Ordering Provid er: BILL ROONEY Report Released Date/Time: Jul 06, 2021 05:15 PM Reporting Lab: [facility] [address] [facility] [address] [facility] [address] Performing Lab: [facility] [address] CREATININE,UR RANDOM 94.9 58.0-161. 0 ALB/CREAT RATIO,UR 122.8 H <29.9 MICROALBUMIN,UR 116.5 H <29.9 Jun 21, 2021 06:43 [facility] HEMOGLOBIN A1C Specimen Type: BLOOD AM No comment enter ed. Ordering Provid er: BILL ROONEY Report Released Date/Time: Mar 22, 2021 08:23 AM Reporting Lab: [facility] [address] [facility] [address] Performing Lab: [facility] [address] [facility] [address] HEMOGLOBIN A1C 7.7 H 4.0-6.0 Jun 21, 2021 [facility] BASIC METABOLIC Specimen Typ e: PLASMA 06:43 AM PANEL+MG No comment enter ed. Ordering Provid er: BILL ROONEY Report Released Date/Time: Mar 22, 2021 08:23 AM Reporting Lab: [facility] [address] [facility] [address] Performing Lab: [facility] [address] CREATININE 1.4 H 0.7-1.2 UREA NITROGEN 17 8-26 GLUCOSE 176 H 74-100 SODIUM 141 136-145 POTASSIUM 3.9 3.5-5.1 CHLORIDE 110 H 98-107 CO2 21 L 22-29 CALCIUM 9.0 8.4-10.2 MAGNESIUM 1.7 1.6-2.6 ANION GAP 10 5-15 ESTIMATED GFR(eGFR) 48 L >60 Jun 21, 2021 06:43 AM [facility] CBC Specim en Type: BLOOD No comment enter ed. Ordering Provid er: BILL ROONEY Report Released Date/Time: Mar 22, 2021 11:13 AM Reporting Lab: [facility] [address] Performing Lab: [facility] [address] WBC 6.71 4.0-11.0 RBC 3.68 L 4.6-6.2 [...] smoking, or tobacco-related health factor, from the [place] facility where the Encounter took place. Date/Time Current Smoking Status Comment Facility Mar 22, 2021 07:45 AM [place]-TOBACCO NEVER USED [facility] Tobacco Use History This section includes a history of the smoking, or tobacco- related health factors, that were collected on or before the date of the Encounter. The data comes from the [place] facility where the Encounter took place. Date/Time Smoking Status/Tobacco Use Comment Xavi chanel Oct 02, 2019 10:02 AM RI-TOBACCO NEVER USED [facility] May 21, 2018 09:05 AM RI-TOBACCO NEVER USED [place] [facility] December 25, 2017 06:14 PM INPT NO TOBACCO USE IN LAST 30 DAYS [facility] Oct 01, 2017 07:34 AM LIFETIME NON-TOBACCO USER [facility] Sep 28, 2016 08:44 AM LIFETIME NON-TOBACCO USER [facility] Oct 14, 2015 07:52 AM LIFETIME NON-TOBACCO USER [facility] Oct 11, 2014 07:59 AM LIFETIME NON-TOBACCO USER [facility] January 15, 2007 07:55 AM LIFETIME NON-TOBACCO USER [facility] Advance Directives: All historical and current Section Date Range: From patient's date of to the date document was created. This section includes ALL of a patient's completed or amended [place] Advance and Rescinded Directives. The entries below indicate that a directive exists for the patient, but an actual copy is not included with this document. The data comes from all [place] facilities. Date Advance Directives Provider Source Apr 18, 2018 ADVANCE DIRECTIVE LARISSA SIGALA [facility] Apr 18, 2018 ADVANCE DIRECTIVE DISCUSSION RAE SIGALAN [facility] December 23, 2017 CLINICAL WARNING FARHAT SCHMID [facility] May 11, 2003 ADVANCE DIRECTIVE BERT CASILLAS [facility] Encounter Notes: All associated encounter notes This section contains the clinical notes associated to the Encounter. Date/Time Encounter Note(s) Provider Source Jul 12, 2021 11:34 AM REPORT OF CONTACT: AMELIE WELDON [facility] LOCAL TITLE: APPOINTMENT SCHEDULING NOTE STANDARD TITLE: REPORT OF CONTACT DATE OF NOTE: JUL 12, 2021@11:34 ENTRY DATE: JUL 12, 2021@11:34:08 AUTHOR: AMELIE WELDON EXP COSIGNER: URGENCY: STATUS: COMPLETED Attempt to schedule return to clinic 1st Contact: Called at: [phone] Tesha dominguez Left message Phone number left for to call back: If calls back, schedule appointment for : please schedule into [facility] pact PROPULSION ENGINEER 4d for U/A Is the RTC marked as no later than? Tesha /ronni/ AMELIE WELDON ADVANCED MSA Signed: 07/12/2021 11:35
--- OUTSIDE RECORDS SUMMARY | 2022-05-15 09:12 | XMS_ITS | Encounter Summary ---
:1935 Author Organization [facility] rs Address [address] [place] [address] Support Name Relationship Address Phone WADE LORENZO Unavailable [address] [place] [address] WADE LORENZO Unavailable [address] [place] [address] ARACELI MARSHALL Unavailable [address] [facility] [place] [address] MARILIA MARSHALLA Unavailable [address] [place] [address] Insurance Providers: All historical and current Section [...] Bales [place] M[place] Aug 19, [id number] Kristel [facility]) [facility]WNR[facility] 2017 8 [id number] [phone] [facility] 1 [place] MEDICARE M[place] Aug 19, [id number] 800 Kristel [facility]WNR[facility] 2016 8 [id number] [phone] [facility] 1 Selected Encounter This section includes the information on record at AL for the Encounter. Date/Time Encounter Type Encounter Reason Provider Source Description Sep 20, 2021 OFFICE O/P EST PRIMARY ICD-10-CM E11.9 NENA GUNTER 07:45 AM MOD 30-39 MIN CARE/MEDICINE Type 2 diabetes JOANNE L mellitus without complications with Provider Comments: Type 2 diabetes mellitus ([facility] [id number]) IHE Encounter Template Text not used by AL Assessments - Encounter Diagnoses This section includes the primary and secondary diagnoses documented for the Encounter. Date/Time Primary/Secondary Diagnosis Name Provider Source Diagnosis Sep 20, 2021 PRIMARY Type 2 diabetes NENA GUNTER [facility] 08:12 AM mellitus without JOANNE L [facility] complications Plan of Treatment: Future Appointments (+ 6 months) and Future Tests (+/- 45 days) The Plan of Treatment section includes future care activities for the patient from all AL treatmentfacilities. This section includes future appointments and future orders which are active, pending orscheduled.Future Appointments This section includes appointments that were scheduled to occur 6 months from the date of the Encounter, up to a maximum of 20 appointments. The data comes from all AL treatment facilities. Appointment Date/Time Appointment Type Appointment Facili ty Name December 19, 2021 11:01 AM AMBULATORY - NONE [facility] December 20, 2021 06:45 AM AMBULATORY - NONE [facility] Feb 02, 2022 09:30 AM AMBULATORY - MEDICINE [facility] Feb 07, 2022 01:37 PM AMBULATORY - NONE [facility] Feb 12, 2022 07:58 PM AMBULATORY - NONE [facility] Feb 26, 2022 07:36 PM AMBULATORY - NONE [facility] Mar 12, 2022 09:30 AM AMBULATORY - NONE [facility] Lab Results: +/- 30 days of the encounter This section includes the Chemistry and Hematology Lab Results on record with AL for the patient. Radiology Reports and Pathology Reports are provided separately, in subsequent sections.Lab Results This section contains the Chemistry/Hematology Results that were resulted 30 days before or 30 daysafter the date of the Encounter. Date/Time Source Result Type Result - Unit Interpretation Reference Range Comment Sep 20, 2021 10:25 AM [facility] URINALYSIS Specim en Type: URINE No comment enter ed. Ordering Provid er: ROCIOBILL MILTON Felipe Report Released Date/Time: Sep 20, 2021 08:13 AM Reporting Lab: [facility] [address] Performing Lab: [facility] I [facility] [address] URINE COLOR LIGHT-YELLOW SPECIFIC GRAVITY 1.010 1.003-1.035 URINE BILIRUBIN NEGATIVE NEGATIVE URINE KETONES NEGATIVE NEGATIVE URINE GLUCOSE NEGATIVE <30 URINE PROTEIN NEGATIVE <20 URINE PH 5.0 5.0-8.0 URINE WBC/HPF 8 H 0-7 URINE BACTERIA NONE SEEN URINE RBC/HPF 1 0-3 APPEARANCE CLEAR SQUAMOUS EPITHELIAL NONE SEEN URINE BLOOD NEGATIVE NEGATIVE URINE NITRITE NEGATIVE NEGATIVE LEUKOCYTE ESTERASE 25 NEGATIVE Sep 20, 2021 06:38 [facility] HEMOGLOBIN A1C Specimen Type: BLOOD AM No comment enter ed. Ordering Provid er: BILL GUNTER Report Released Date/Time: Jun 21, 2021 08:07 AM Reporting Lab: [facility] [address] [facility] [address] Performing Lab: [facility] [address] HEMOGLOBIN A1C 7.8 H 4.0-6.0 Sep 20, 2021 06:38 AM [facility] IRON GROUP Specim en Type: SERUM No comment enter ed. Ordering Provid er: BILL GUNTER Report Released Date/Time: Jun 21, 2021 08:23 AM Reporting Lab: [facility] [address] Performing Lab: [facility] [address] [facility] [address] IRON 34 L 65-175 TIBC,CALCULATED 348 250-425 FERRITIN 78.4 21.8-274.7 IRON SATURATION 10 L 20-50 TRANSFERRIN 278 163-382 Sep 20, 2021 [facility] BASIC METABOLIC Specimen Typ e: PLASMA 06:38 AM PANEL+MG No comment enter ed. Ordering Provid er: BILL GUNTER Report Released Date/Time: Jun 21, 2021 08:07 AM Reporting Lab: [facility] [address] [facility] [address] Performing Lab: [facility] [address] [facility] [address] CREATININE 1.7 H 0.7-1.2 UREA NITROGEN 24 8-26 GLUCOSE 185 H 74-100 SODIUM 140 136-145 POTASSIUM 3.7 3.5-5.1 CHLORIDE 107 98-107 CO2 24 22-29 CALCIUM 9.4 8.4-10.2 MAGNESIUM 1.6 1.6-2.6 ANION GAP 9 5-15 ESTIMATED GFR(eGFR) 38 L >60 Sep 20, 2021 06:38 AM [facility] CBC Specim en Type: BLOOD No comment enter ed. Ordering Provid er: BILL GUNTER Felipe Report Released Date/Time: Jun 21, 2021 08:09 AM Reporting Lab: [facility] [address] [facility] [address] Performing Lab: [facility] [address] [facility] [address] WBC 9.17 4.0-11.0 RBC 4.21 L 4.6-6.2 [...] [place] P 2021 07:38 /min mm[Hg] IS [facility] Social History: Smoking Status (Most current) and Tobacco Use (All prior to encounter date) This section includes the most current, and the historical, smoking and tobacco-related health factors from the AL facility where the Encounter took place.Current Smoking Status This section includes the most current smoking, or tobacco-related health factor, from the AL facility where the Encounter took place. Date/Time Current Smoking Status Comment Facility Mar 22, 2021 07:45 AM [facility] Tobacco Use History This section includes a history of the smoking, or tobacco- related health factors, that were collected on or before the date of the Encounter. The data comes from the AL facility where the Encounter took place. Date/Time Smoking Status/Tobacco Use Comment [facility] Oct 02, 2019 10:02 AM [place]-TOBACCO NEVER USED [place] [facility] May 21, 2018 09:05 AM AL-TOBACCO NEVER USED [place] [facility] December 25, 2017 06:14 PM INPT NO TOBACCO USE IN LAST 30 DAYS [facility] Oct 01, 2017 07:34 AM LIFETIME NON-TOBACCO USER [facility] Sep 28, 2016 08:44 AM LIFETIME NON-TOBACCO USER [facility] Oct 14, 2015 07:52 AM LIFETIME NON-TOBACCO USER [facility] Oct 11, 2014 07:59 AM LIFETIME NON-TOBACCO USER [facility] January 15, 2007 07:55 AM LIFETIME NON-TOBACCO USER [facility] Advance Directives: All historical and current Section Date Range: From patient's date of to the date document was created. This section includes ALL of a patient's completed or amended AL Advance and Rescinded Directives. The entries below indicate that a directive exists for the patient, but an actual copy is not included with this document. The data comes from all AL facilities. Date Advance Directives Provider Source Apr 18, 2018 ADVANCE DIRECTIVE LARISSA SIGALA [facility] Apr 18, 2018 ADVANCE DIRECTIVE DISCUSSION LARISSA SIGALA [facility] December 23, 2017 CLINICAL WARNING FARHAT SCHMID [facility] May 11, 2003 ADVANCE DIRECTIVE BERT CASILLAS [facility] Encounter Notes: All associated encounter notes This section contains the clinical notes associated to the Encounter. Date/Time Encounter Note(s) Provider Source Sep 21, 2021 11:36 AM [facility]: FOLLOW UP RESULTS LETTER STANDARD TITLE: LETTERS DATE OF NOTE: SEP 21, 2021@11:36 ENTRY DATE: SEP 21, 2021@11:37:07 AUTHOR: BILL GUNTER EXP COSIGNER: URGENCY: STATUS: COMPLETED [facility] [address] [place] [address] Sep LUISANA EDDY [address] [facility] [id number] Dear : I am writing to inform you o f the results of testing that you had done recently at the [facility]. - Complete Blood Count (red/white blood cell [...] 08:04 AM INTERNAL MEDICINE NOTE: BILL GUNTER [facility] LOCAL TITLE: MEDICINE CLINIC NOTE STANDARD TITLE: [...] podiatry -Yearly eye exam [facility] mology -A1c in 3 months prior to next appointment Elevated PSA with BPH Urinary outlet obstruction with bacterem ia requiring hospitalization January 2021 TURP February 2021 -follows with urology Dr Moreno at [facility] -Continue finasteride 5 mg daily. Refilled today Chronic kidney disease stage 3 - Creatinine pending -Continue vitamin D Diastolic heart failure HTN Dyslipidemia Chronic atrial fibrillation -Managed by cardiology and in [place], Dr. Chu . Patient did not have his most recent follow-up appoin [facility] scheduled. He will call Dr. Harrison's [...] injury -Continue follow-up with podiatry in the [facility]. Sweeney -Continue intermittent prosthetics referrals [...] some mid to lower central abdominal discomfort. [place] sharp and burning. Was associated with urin [...] followin. Type 2 diabetes mellitus (SNOMED CT [id number] ) 2. OBESITY, UNSP 3. Psoriasis * 4. Social and personal history finding - Lives alone. Has brother in [place]. Friends felipe breaux. 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 5. History of adenomatous polyp of colon - Last c-scope 05/09/15 at [facility]. Two small polyp s. - 5 year follow up if appropriate. 6. Elevated PSA - follows with urology at [facility] - with BPH on terazosin - February 2021: TURP at [facility] 7. Chronic kidney disease stage 3 8. Diastolic heart failure - w/ HTN and dyslipidemia 9. Chronic atrial fibrillation - metoprolol and rivaroxaban 10. history of hospitalization - January 2021: Bacteremia secondary to urinary ou tflow obstruction from BPH - underwent a TURP at [facility] February 2021 11. corns and calluses - followed by podiatry in the community in [facility] 12. Gout - on allopurinol Allergies: SIMVASTATIN [...] AM INTERNAL MEDICINE OUTPATIENT NOTE: LEXA RUIZ [facility] LOCAL TITLE: MEDICINE CLINIC NURSING NOTE STANDARD [...] due to responses to other questions. 4. [place] numb or detached from people, activitie s, or your surroundings? Response not required due to responses to other questions. 5. [place] guilty or unable to stop blaming yourse [...] instructions accurately. Urinalysis sent to lab /ronni/ LEXA RUIZ LPN LPN Signed: 09/20/2021 10:21
--- OUTSIDE RECORDS SUMMARY | 2022-05-15 09:13 | XMS_ITS | Encounter Summary ---
:1935 Author Organization [facility] rs Address [address] [place] [address] Support Name Relationship Address Phone WADE LORENZO Unavailable [address] [place] [address] WADE LORENZO Unavailable [address] [place] [address] ARACELI MARSHALL Unavailable [address] [place] [address] GOMARILIA VAZQUEZA Unavailable [address] [place] [address] Insurance Providers: All historical and current Section Date Range: From patient's date of to the date document was created.This section includes the names of all active insurance providers for the patient. Insurance Type of Plan Start of End of Group Member [facility] Coverage Name Policy Policy Number ID Provider's Bales's Relationship Coverage Coverage Telephone Name to Policy Number Bales [place] Aug 19, [id number] Kristel EDDY [facility] (WNR) ADVANTAGE (WNR) 2016 8 [id number] [phone] [facility] 1 [place] MED[place]ARE M[place] Aug 19, [id number] 800 Kristel EDDY [facility] (WNR) ADVANTAGE (WNR) 2016 8 [id number] [phone] [facility] 1 Selected Encounter This section includes the information on record at ME for the Encounter. Date/Time Encounter Type Encounter Description Reason Provider Source Sep 26, 2021 02:36 Outpatient Encounter TELEPHONE TRIAGE PM IHE Encounter Template Text not used by ME Plan of Treatment: Future Appointments (+ 6 months) and Future Tests (+/- 45 days) The Plan of Treatment section includes future care activities for the patient from all [facility]. This section includes future appointments [...] 19, 2021 11:01 AM AMBULATORY - NONE [facility] December 20, 2021 06:45 AM AMBULATORY - NONE [facility] Feb 02, 2022 09:30 AM AMBULATORY - MEDICINE [facility] Feb 07, 2022 01:37 PM AMBULATORY - NONE [facility] Feb 12, 2022 07:58 PM AMBULATORY - NONE [facility] Feb 26, 2022 07:36 PM AMBULATORY - NONE [facility] Mar 12, 2022 09:30 AM AMBULATORY - [facility] Lab Results: +/- 30 days of the encounter This section includes the Chemistry and Hematology Lab Results on record with ME for the patient. Radiology Reports and Pathology Reports are provided separately, in subsequent sections.Lab Results This section contains the Chemistry/Hematology Results that were resulted 30 days before or 30 daysafter the date of the Encounter. Date/Time Source Result Type Result - Unit Interpretation Reference Range Comment Sep 20, 2021 10:25 AM [facility] URINALYSIS Specim en Type: URINE No comment enter ed. Ordering Provid er: BILL GUNTER Report Released Date/Time: Sep 20, 2021 08:13 AM Reporting Lab: [facility] [address] Performing Lab: [facility] [address] URINE COLOR LIGHT-YELLOW SPECIFIC GRAVITY 1.010 1.003-1.035 URINE BILIRUBIN NEGATIVE NEGATIVE URINE KETONES NEGATIVE NEGATIVE URINE GLUCOSE NEGATIVE <30 URINE PROTEIN NEGATIVE <20 URINE PH 5.0 5.0-8.0 URINE WBC/HPF 8 H 0-7 URINE BACTERIA NONE SEEN URINE RBC/HPF 1 0-3 APPEARANCE CLEAR SQUAMOUS EPITHELIAL NONE SEEN URINE BLOOD NEGATIVE NEGATIVE URINE NITRITE NEGATIVE NEGATIVE LEUKOCYTE ESTERASE 25 NEGATIVE Sep 20, 2021 06:38 [facility] HEMOGLOBIN A1C Specimen Type: BLOOD AM No comment enter ed. Ordering Provid er: BILL GUNTER Report Released Date/Time: Jun 21, 2021 08:07 AM Reporting Lab: [facility] [address] Performing Lab: [facility] [address] HEMOGLOBIN A1C 7.8 H 4.0-6.0 Sep 20, 2021 [facility] BASIC METABOLIC Specimen Typ e: PLASMA 06:38 AM PANEL+MG No comment enter ed. Ordering Provid er: BILL GUNTER Report Released Date/Time: Jun 21, 2021 08:07 AM Reporting Lab: [facility] [address] Performing Lab: [facility] [address] CREATININE 1.7 H 0.7-1.2 UREA NITROGEN 24 8-26 GLUCOSE 185 H 74-100 SODIUM 140 136-145 POTASSIUM 3.7 3.5-5.1 CHLORIDE 107 98-107 CO2 24 22-29 CALCIUM 9.4 8.4-10.2 MAGNESIUM 1.6 1.6-2.6 ANION GAP 9 5-15 ESTIMATED GFR(eGFR) 38 L >60 Sep 20, 2021 06:38 AM [facility] CBC Specim en Type: BLOOD No comment enter ed. Ordering Provid er: BILL GUNTER Report Released Date/Time: Jun 21, 2021 08:09 AM Reporting Lab: [facility] [address] Performing Lab: [facility] [address] WBC 9.17 4.0-11.0 RBC 4.21 L 4.6-6.2 HGB 12.0 L 13.5-17.9 HCT 37.9 L 41-54 MCV 90.0 80-100 MCH 28.5 27-33 MCHC 31.7 L 32.0-37.5 PLT 298 150-400 MPV 10.4 7.4-10.4 RDW 15.7 H 11.5-14.5 Sep 20, 2021 06:38 AM [facility] IRON GROUP Specim en Type: SERUM No comment enter ed. Ordering Provid er: BILL GUNTER Report Released Date/Time: Jun 21, 2021 08:23 AM Reporting Lab: [facility] [address] Performing Lab: [facility] [address] IRON 34 L 65-175 TIBC,CALCULATED 348 250-425 FERRITIN 78.4 21.8-274.7 IRON SATURATION 10 L 20-50 TRANSFERRIN 278 163-382 Social History: Smoking Status (Most current) and [...] 2021 07:45 AM [place] Tobacco Use History This section includes a history of the smoking, or tobacco- related health factors, that were collected on or before the date of the Encounter. The data comes from the [facility] where the Encounter took place. Date/Time Smoking Status/Tobacco Use Comment [facility] Oct 02, 2019 10:02 AM [place]-TOBACCO [place] USED [place] [facility] May 21, 2018 09:05 AM ME-TOBACCO NEVER USED [place] [facility] December 25, 2017 06:14 PM INPT NO TOBACCO USE IN LAST 30 DAYS [facility] Oct 01, 2017 07:34 AM LIFETIME NON-TOBACCO USER [facility] Sep 28, 2016 08:44 AM LIFETIME NON-TOBACCO USER [facility] Oct 14, 2015 07:52 AM LIFETIME NON-TOBACCO USER [facility] Oct 11, 2014 07:59 AM LIFETIME NON-TOBACCO USER [facility] January 15, 2007 07:55 AM LIFETIME NON-TOBACCO USER [facility] Advance Directives: All historical and current Section Date Range: From patient's date of to the date document was created. This section includes ALL of a patient's completed or amended ME Advance and Rescinded Directives. The entries below indicate that a directive exists for the patient, but an actual copy is not included with this document. The data comes from all [facility]. Date Advance Directives Provider Source Apr 18, 2018 ADVANCE DIRECTIVE LARISSA SIGALA [facility] Apr 18, 2018 ADVANCE DIRECTIVE DISCUSSION LARISSA SIGALA [facility] December 23, 2017 CLINICAL WARNING FARHAT SCHMID [facility] May 11, 2003 ADVANCE DIRECTIVE BERT CASILLAS [facility] Encounter Notes: All associated encounter notes This section contains the clinical notes associated to the Encounter. Date/Time Encounter Note(s) Provider Source Sep 26, 2021 02:36 PM REPORT OF CONTACT: RANDELL TAVERA ARGELIAWanda [facility] LOCAL TITLE: PATIENT CONTACT NOTE STANDARD TITLE: REPORT OF CONTACT DATE OF NOTE: SEP 26, 2021@14:36 ENTRY DATE: SEP 26, 2021@14:36:21 AUTHOR: RANDELL TAVERA EXP COSIGNER: URGENCY: STATUS: COMPLETED PATIENT CONTACT [...] Phone number verified as correct. cell /es/ Randell Tavera VISN 23 [facility] AMSA Signed: 09/26/2021 14:37 Receipt Acknowledged By: 09/27/2021 14:27 /es/ Bill Gunter MD Physician 09/27/2021 ADDENDUM STATUS: COMPLETED Please let patient know I mailed an iron prescri ption to his house. /es/ Bill Gunter MD Physician Signed: 09/27/2021 14:29 Receipt Acknowledged By: * AWAITING SIGNATURE * KATIE SMITH 09/27/2021 ADDENDUM STATUS: COMPLETED I spoke with pt informing him of ordered Ferrous Sulfate and possible side effects for mail out. Pt replied understanding. /es/ JAMIE SOUZA RN Pact Pusher Operator Signed: 09/27/2021 16:34
--- OUTSIDE RECORDS SUMMARY | 2022-05-15 09:13 | XMS_ITS | Encounter Summary ---
:1935 Author Organization [facility] Address [address] [place] [address] Support Name Relationship Address Phone WADE LORENZO Unavailable [id number] [place] [address] WADE LORENZO Unavailable [address] [place] [address] MARILIA MARSHALLA Unavailable [address] [facility] [place] [address] GOGEORGE, ARACELI Unavailable [address] [place] [address] Insurance Providers: All historical and current Section [...] Bales [place] M[place] Aug 19, [id number] Kristel EDDY [facility] (WNR) ADVANTAGE (WNR) 2017 8 [id number] [phone] [facility] 1 [place] Aug 19, [id number] Kristel EDDY [facility] (WNR) ADVANTAGE (WNR) 2016 8 [id number] [phone] [facility] 1 Selected Encounter This section includes the information on record at [place] for the Encounter. Date/Time Encounter Type Encounter Reason Provider Source Description December 19, 2021 11:01 Outpatient ADMIN PAT ACTIVTIES ABI GANDARA AM Encounter (MASNONCT) E Encounter Template Text not used by [place] Plan of Treatment: Future Appointments (+ 6 months) and Future Tests (+/- 45 days) The Plan of Treatment section includes future care activities for the patient from [facility]. This section includes future appointments and future orders which are active, pending orscheduled.Future Appointments This section includes appointments that were scheduled to occur 6 months from the date of the Encounter, up to a maximum of 20 appointments. The data comes from all [place] [facility]. Appointment Date/Time Appointment Type Appointment Facili ty Name December 20, 2021 06:45 AM AMBULATORY - NONE [facility] Feb 02, 2022 09:30 AM AMBULATORY - MEDICINE [facility] Feb 07, 2022 01:37 PM AMBULATORY - NONE [facility] Feb 12, 2022 07:58 PM AMBULATORY - NONE [facility] Feb 26, 2022 07:36 PM AMBULATORY - NONE [facility] Mar 12, 2022 09:30 AM AMBULATORY - NONE [facility] Apr 02, 2022 09:00 AM AMBULATORY - PSYCHIATRY [facility] Apr 02, 2022 01:30 PM AMBULATORY - NEUROLOGY [facility] Apr 02, 2022 02:45 PM AMBULATORY - NONE [facility] Apr 26, 2022 10:00 AM AMBULATORY - PSYCHIATRY [facility] Apr 30, 2022 08:00 AM AMBULATORY - MEDICINE [facility] Apr 30, 2022 09:15 AM AMBULATORY - NONE [facility] May 01, 2022 11:06 AM AMBULATORY - NONE [facility] May 06, 2022 09:40 AM AMBULATORY - MEDICINE [facility] May 11, 2022 06:15 PM AMBULATORY - NONE [facility] Active, Pending, and Scheduled Orders This section includes a listing of several types of active, pending, and scheduled orders, including clinic medications orders, diagnostic test orders, procedure orders and consult orders; where the start date of the order is 45 days before the date of the Encounter or 45 days after the date of the Encounter. The data comes from all [place] [facility]. Test Date/Time Test Type Test Details Facility Name December 19, 2021 12:00 AM Laboratory - Chemistry HEMOGLOBIN A1C BLOO D [facility] Order SP December 19, 2021 12:00 AM Laboratory - Chemistry BASIC METABOLIC MIN [facility] Order PANEL+MG PLASMA SP ONCE Social History: Smoking Status (Most current) and Tobacco Use (All prior to encounter date) This section includes the most current, and the historical, smoking and tobacco-related health factors from the [facility] where the Encounter took place.Current Smoking Status This section includes the most current smoking, or tobacco-related health factor, from the [place] facility where the Encounter took place. Date/Time Current Smoking Status Comment Facility Mar 22, 2021 07:45 AM [place]-TOBACCO [facility] USED [facility] Tobacco Use History This section includes a history of the smoking, or tobacco- related health factors, that were collected on or before the date of the Encounter. The data comes from the [facility] where the Encounter took place. Date/Time Smoking Status/Tobacco Use Comment [facility] Oct 02, 2019 10:02 AM VA-TOBACCO NEVER USED [facility] May 21, 2018 09:05 AM [place]-TOBACCO [facility] December 25, 2017 06:14 PM INPT NO TOBACCO USE IN LAST 30 DAYS [facility] Oct 01, 2017 07:34 AM LIFETIME NON-TOBACCO USER [facility] Sep 28, 2016 08:44 AM LIFETIME NON-TOBACCO USER [facility] Oct 14, 2015 07:52 AM LIFETIME NON-TOBACCO USER [facility] Oct 11, 2014 07:59 AM LIFETIME NON-TOBACCO USER [facility] January 15, 2007 07:55 AM LIFETIME NON-TOBACCO USER [facility] Advance Directives: All historical and current Section Date Range: From patient's date of to the date document was created. This section includes ALL of a patient's completed or amended [place] Advance and Rescinded Directives. The entries below indicate that a directive exists for the patient, but an actual copy is not included with this document. The data comes from all [facility]. Date Advance Directives Provider Source Apr 18, 2018 ADVANCE DIRECTIVE LARISSA SIGALA [facility] Apr 18, 2018 ADVANCE DIRECTIVE DISCUSSION LARISSA SIGALA [facility] December 23, 2017 CLINICAL WARNING FARHAT SCHMID [facility] May 11, 2003 ADVANCE DIRECTIVE BERT CASILLAS [facility] Encounter Notes: All associated encounter notes This section contains the clinical notes associated to the Encounter. Date/Time Encounter Note(s) Provider Source December 18, 2021 01:45 PM NONVA NOTE: VILLA COOLEY IS [facility] LOCAL TITLE: COMMUNITY CARE-SANDOVAL SELF PRESENTIN G CARE COORD PLAN STANDARD TITLE: NONVA NOTE DATE OF NOTE: DECEMBER 18, 2021@13:45 ENTRY DATE: DECEMBER 19, 2021@11:02:48 AUTHOR: VILLA COOLEY EXP COSIGNER: URGENCY: STATUS: COMPLETED [facility] CARE-[facility] SELF PRESENTING CARE CO ORD PLAN NOTE Has ADDENDA Emergency Notification Intake Date Presenting to the Facility: December Method of Contact: Notified from [employer] worklist Notification ID: [id number] [facility] Referral #: [facility] Name: Hospital: [facility] Address: [address] City: [place] State: [place] Zip Code: Phone : [facility] Point of Contact: Name: TADEO Chief complaint: GENERALIZED WEAKNESS Primary Diagnosis: Disposition Admitted Route of Admission: Date of Admission: December Admitting Diagnosis: GENERALIZED WEAKNESS [facility] [place] Provider: Confirm Level of Care: /ronni/ VILLA COOLEY [employer](AOD) Signed: 12/19/2021 11:05 Receipt Acknowledged By: 12/20/2021 [...] COMPLETED [facility] Scanned Document - Addendum. DC Romayor 12/18 to 12/20/21 dx FINAL DIAGNOSIS Prostatitis Probable UTI Sepsis Chronic kidney disease Atrial fibrillation dc to home Will scan and import dcs received via fax on 01/17 02/07 Please review records /yvette GANDARA RN Utilization Management Signed: 02/01/2022 16:37 Receipt Acknowledged By: * AWAITING SIGNATURE * BILL ROONEY * AWAITING SIGNATURE * ZARA DAVID
--- OUTSIDE RECORDS SUMMARY | 2022-05-15 09:13 | XMS_ITS | Encounter Summary ---
:1935 Author Organization [facility] Address [address] [place] [address] Support Name Relationship Address Phone WADE LORENZO Unavailable [id number] [place] [address] WADE LORENZO Unavailable [address] [place] [address] JOANNA ARACELI Unavailable [address] [place] [address] MARILIA MARSHALLA Unavailable [address] [place] [address] Insurance Providers: All historical and current Section [...] Bales [place] Aug 19, [id number] Krist[address] EDDY [facility] (WNR) ADVANTAGE (WNR) 2016 8 [id number] [phone] [facility] 1 [place] MEDICARE M[place] Aug 19, [id number] Kristel EDDY [facility] (WNR) ADVANTAGE (WNR) 2017 03 [id number] [phone] [facility] 1 Selected Encounter This section includes the information on record at [place] for the Encounter. Date/Time Encounter Type Encounter Reason Provider Source Description Jul 06, 2021 09:38 Outpatient TELEPHONE PRIMARY NIRAJ SONI AM [facility] En[facility] Template Text not used by [place] Plan of Treatment: Future Appointments (+ 6 months) and Future Tests (+/- 45 days) The Plan of Treatment section includes future care activities for the patient from all [facility] This section includes future appointments and future [...] 11:00 AM AMBULATORY - MEDICINE [facility] Sep 20, 2021 06:45 AM AMBULATORY - NONE [facility] Sep 20, 2021 07:45 AM AMBULATORY - MEDICINE [facility] December 19, 2021 11:01 AM AMBULATORY - NONE [facility] December 20, 2021 06:45 AM AMBULATORY - NONE [facility] Lab Results: +/- 30 days of [...] Interpretation Reference Range Comment Jul 17, 2021 [facility] MICROALBUMIN/CREATININE RATIO Specimen Type: URINE 11:06 AM URINE No comment enter ed. Ordering Provid er: BILL ROONEY Report Released Date/Time: Jul 06, 2021 05:15 PM Reporting Lab: [facility] [address] [facility] [id number] Performing Lab: [facility] [address] CREATININE,UR RANDOM 94.9 58.0-161. 0 ALB/CREAT RATIO,UR 122.8 H <29.9 MICROALBUMIN,UR 116.5 H <29.9 Jun 21, 2021 06:43 [facility] HEMOGLOBIN A1C Specimen Type: BLOOD AM No comment enter ed. Ordering Provid er: BILL ROONEY Report Released Date/Time: Mar 22, 2021 08:23 AM Reporting Lab: [facility] [address] [facility] [phone] Performing Lab: [facility] [address] [facility] [address] HEMOGLOBIN A1C 7.7 H 4.0-6.0 Jun 21, 2021 06:43 AM [facility] CBC Specim en Type: BLOOD No comment enter ed. Ordering Provid er: BILL ROONEY Report Released Date/Time: Mar 22, 2021 11:13 AM Reporting Lab: [facility] [address] [facility] [phone] Performing Lab: [facility] [address] WBC 6.71 4.0-11.0 RBC 3.68 L 4.6-6.2 HGB 10.8 L 13.5-17.9 HCT 34.7 L 41-54 MCV 94.3 80-100 MCH 29.3 27-33 MCHC 31.1 L 32.0-37.5 PLT 249 150-400 MPV 10.0 7.4-10.4 RDW 15.0 H 11.5-14.5 Jun 21, 2021 [facility] BASIC METABOLIC Specimen Typ e: PLASMA 06:43 AM PANEL+MG No comment enter ed. Ordering Provid er: BILL ROONEY Report Released Date/Time: Mar 22, 2021 08:23 AM Reporting Lab: [facility] [address] [facility] [phone] Performing Lab: [facility] [phone] CREATININE 1.4 H 0.7-1.2 UREA NITROGEN 17 [...] 07:45 AM [place]-TOBACCO NEVER USED [facility] Tobacco Use History This section includes a history of the smoking, or tobacco- related health factors, that were collected on or before the date of the Encounter. The data comes from the [place] facility where the Encounter took place. Date/Time Smoking Status/Tobacco Use Comment Xavi chanel Oct 02, 2019 10:02 AM [place]-TOBACCO NEVER USED [place] [facility] May 21, 2018 09:05 AM [place]-TOBACCO [place] USED [place] [facility] December 25, 2017 06:14 PM INPT NO TOBACCO USE IN LAST 30 DAYS [facility] Oct 01, 2017 07:34 AM LIFETIME NON-TOBACCO USER [facility] Sep 28, 2016 08:44 AM LIFETIME NON-TOBACCO USER [facility] Oct 14, 2015 07:52 AM LIFETIME NON-TOBACCO USER [facility] Oct 11, 2014 07:59 AM LIFETIME NON-TOBACCO USER [facility] January 15, 2007 07:55 AM LIFETIME NON-TOBACCO USER [facility] Advance Directives: All historical and current Section Date Range: From patient's date of to the date document was created. This section includes ALL of a patient's completed or amended [place] Advance and Rescinded Directives. The entries below indicate that a directive exists for the patient, but an actual copy is not included with this document. The data comes from all [facility]. Date Advance Directives Provider Source Apr 18, 2018 ADVANCE DIRECTIVE LARISSA SIGALA [facility] Apr 18, 2018 ADVANCE DIRECTIVE DISCUSSION RAE SIGALAN [facility] December 23, 2017 CLINICAL WARNING FARHAT SCHMID [facility] May 11, 2003 ADVANCE DIRECTIVE BERT CASILLAS [facility] Encounter Notes: All associated encounter notes This section contains the clinical notes associated to the Encounter. Date/Time Encounter Note(s) Provider Source Jul 06, 2021 09:38 AM PACT NOTE: ZARA SONI [facility] LOCAL TITLE: COVID-19 PREVENTIVE HEALTH INVENTO [...] number for backup/emergency commun ication with patient: [phone] Patient Location/Surroundings During Visit: Patient location during visit: Home [address] [place], [place] [address]E [place], [place] [address] Next scheduled appointments: 09/20/2021 06:45 [facility] BLOOD DRAWING HERBERT 09/20/2021 07:45 [facility] PACT IRIS WH 4D The patient has had a prior vaccination for COVI D-19. Blood Pressure The patient's last blood pressure reading was wi thin the past year. Seasonal Flu Vaccine The patient has received the influenza vaccine t his season. Colorectal Cancer Screening The [place] is not currently due for colorectal cancer screening. Suicide Screen The patient is not currently due for a suicide s creen. Diabetes Management Hemoglobin A1C The patient is not currently due for a Hemoglob in A1C. Diabetes Kidney Screening A Microalbumin/creatinine order was placed per [facility] PACT Preventative Health team protocol pending Provider review/approval. [place] reports, I had this checked several years ago at the [facility] in [place] but it has been quite some time and I proba rosa should have this checked again. Please follow- up with to schedule lab appoint ment and place return to clinic orders for appointment if approved. Will co-sign [facility] P ACT PCP/[facility] PA[facility] Clinical Associate to follow-up with . Diabetes Foot Check Patient reports cracks in skin, corns, callouse s or blisters. Comment: [place] reports, I have a callous on bottom right foot, currently healing. I have seen and still see podiatry ([facility]) for this. Patient reports other concerns with the feet. Concerns: [place] reports, My second toe right foot toenail was removed, currently healing. I have seen podiatry ([facility]) for this. Plan: The patient was referred to Primary Care Provid er for follow up due to abnormal findings per [facility] PACT template bobbio felipe. Arley is currently seeing a clinical staff rn at [facility] and reports he is going in for routine diabetic ghazala t checks and that he has been seen for these concerns above. Will co-sig n [facility] PA[facility] PCP as an FYI regarding above as per protocol. Diabetes Eye Screening Diabetes eye screening has been completed outsi de of the [place]. Requested that the fax records to the Primary Care Provider or bring records with to his next appointment at the [facility]. ve rbalized understanding and in agreement. Comment: reports, Last eye exam December or January 2021, [facility] in [place], will bring copy of record s to next [facility] appointment. Cisco Engineer contacted [place] via telephone to perfor m [facility] PA[facility] Preventive Health Screenings as indicated by M PACT Preventative Health Team. See above answers to health screenings. Vetera n reports in a safe and private location and denies distress during call. had no questions o r concerns during call. Call ended successfully. Cisco Engineer co-signing [facility] PACT PCP/[facility] Clinical Associate to follow-up with regarding microalbumin/creatinine lab an d if approved, please place return to clinic orders. Please see above under diabetic kidney screening. Cisco Engineer will co-sign [facility] PCP as an FYI per p rotocol regarding [place] reported abnormal diabetic foot findings. Ruslana n reports currently being managed by [facility] in [facility]. [place] also reports, I feel the best I have ever fe lt in a long time. Please follow-up with as appropriate regarding above. /ronni/ ZARA SONI RN Signed: 07/06/2021 10:18 Receipt Acknowledged By: * AWAITING SIGNATURE * BILL ROONEY * AWAITING SIGNATURE * VINCENT READ
--- OUTSIDE RECORDS SUMMARY | 2022-05-15 09:13 | XMS_ITS | Encounter Summary ---
:1935 Author Organization [facility] rs Address [address] [place] [address] Support Name Relationship Address Phone NATHANIEL LORENZO Unavailable [id number] [place] [address] NATHANIEL LORENZO Unavailable [address] [place] [address] ARACELI MARSHALL Unavailable [address] [place] [address] GOMARILIA VAZQUEZA Unavailable [address] [place] [address] Insurance Providers: All historical and current Section Date Range: From patient's date of to the date document was created.This section includes the names of all active insurance providers for the patient. Insurance Type of Plan Start of End of Group Member [facility] Provider Coverage Name Policy Policy Number ID Provider's Bales's Relationship Coverage Coverage Telephone Name to Policy Number Bales [place] M[place] Aug 19, [id number] Kristel EDDY [facility] (WNR) ADVANTAGE (WNR) 2017 8 [id number] [phone] [facility] [place] M[place] Aug 19, [id number] Kristel EDDY [facility] (WNR) ADVANTAGE (WNR) 2017 03 [id number] [phone] [facility] Selected Encounter This section includes the information on record at [place] for the Encounter. Date/Time Encounter Type Encounter Reason Provider Source Description December 19, 2021 HC PRO PHONE TELEPHONE TRIAGE ICD-10-CM Z71.89 JUSTYNA FAIR 10:35 AM CALL 5-10 MIN Other specified J counseling with Provider Comments: Other specified counseling IHE Encounter Template Text not used by [place] Assessments - Encounter Diagnoses This section includes the primary and secondary diagnoses documented for the Encounter. Date/Time Primary/Secondary Diagnosis Name Provider Source Diagnosis December 19, 2021 PRIMARY Other specified ASHLEY FAIR [facility] 10:35 AM counseling [facility] Plan of Treatment: Future Appointments (+ 6 months) and Future Tests (+/- 45 days) The Plan of Treatment section includes future care activities for the patient from all [place] [facility] This section includes future appointments and future orders which are active, pending orscheduled.Future Appointments This section includes appointments that were scheduled to occur 6 months from the date of the Encounter, up to a maximum of 20 appointments. The data comes from all [place] treatment [facility]. Appointment Date/Time Appointment Type Appointment Facili ty Name December 20, 2021 06:45 AM AMBULATORY - NONE [facility] Feb 02, 2022 09:30 AM AMBULATORY - MEDICINE [facility] Feb 07, 2022 01:37 PM AMBULATORY - NONE [facility] Feb 12, 2022 07:58 PM AMBULATORY - NONE [facility] Feb 26, 2022 07:36 PM AMBULATORY - NONE [facility] Mar 12, 2022 09:30 AM AMBULATORY - NONE [facility] Apr 02, 2022 09:00 AM AMBULATORY - PSYCHIATRY [facility] Apr 02, 2022 01:30 PM AMBULATORY - NEUROLOGY [facility] Apr 02, 2022 02:45 PM AMBULATORY - NONE [facility] Apr 26, 2022 10:00 AM AMBULATORY - PSYCHIATRY [facility] Apr 30, 2022 08:00 AM AMBULATORY - MEDICINE [facility] Apr 30, 2022 09:15 AM AMBULATORY - NONE [facility] May 01, 2022 11:06 AM AMBULATORY - NONE [facility] May 06, 2022 09:40 AM AMBULATORY - MEDICINE [facility] May 11, 2022 06:15 PM AMBULATORY - NONE [facility] Active, Pending, and Scheduled [...] the Encounter. The data comes from all [place] treatment [facility]. Test Date/Time Test Type Test Details Facility Name December 19, 2021 12:00 AM Laboratory - Chemistry BASIC METABOLIC MIN [facility] Order PANEL+MG PLASMA SP ONCE December 19, 2021 12:00 AM Laboratory - Chemistry HEMOGLOBIN A1C BLOO Rui [facility] Order SP Social History: Smoking Status (Most current) and Tobacco Use (All prior to encounter date) This section includes the most current, and the historical, smoking and tobacco-related health factors from the [facility] where the Encounter took place.Current Smoking Status This section includes the most current smoking, or tobacco-related health factor, from the [place] facility where the Encounter took place. Date/Time Current Smoking Status Comment Facility Mar 22, 2021 07:45 AM [place]-TOBACCO NEVER USED [place] [facility] Tobacco Use History This section includes a history of the smoking, or tobacco- related health factors, that were collected on or before the date of the Encounter. The data comes from the [place] facility where the Encounter took place. Date/Time Smoking Status/Tobacco Use Comment [facility] Oct 02, 2019 10:02 AM [place] [facility] May 21, 2018 09:05 AM [place] December 25, 2017 06:14 PM INPT [...] 18, 2018 ADVANCE DIRECTIVE DISCUSSION LARISSA SIGALA [facility] December 23, 2017 CLINICAL WARNING FARHAT SCHMID [facility] May 11, 2003 ADVANCE DIRECTIVE BERT CASILLAS [facility] Encounter Notes: All associated encounter notes This section contains the clinical notes associated to the Encounter. Date/Time Encounter Note(s) Provider Source December 19, 2021 10:35 AM NURSING TELEPHONE ENCOUNTER NOTE: Arturo FAIR [facility] LOCAL TITLE: TELEPHONE CARE NURSE [...] Comments: Call from son Nathaniel reporting that vet is candice ravi admitted to [facility] for recurrent urinary infections. He st ates [...] to have all admit records tx to [place] for assessment. Also provided t he 72hr contact number for billing and FYI aspects Nathaniel asks for team to contact vet at Author: ASHLEY FAIR Caller Area: *[facility] SON called in for LUISANA EDDY ([id number]) . Caller Response: APPT GREATER THAN 24 HOURS Class Code: Other specified counseling. Contact Advised to contact Telephone Care for any questions, concerns, new or worsening symptoms; services available 11/03. Evaluation/Management Code: HC PRO PHONE CALL 5- 10 MIN ([phone]). Starting at: 12/19/2021 @ 10:35:18 AM Ending at: 12/19/2021 @ 10:40:12 AM Length: 4 minutes. Patient's Email Address: [email or web address] Provider Info: LOCAL - [facility] ([phone]) PACT: [facility] PACT IRIS *SHIRA* (Focus: Womens Health) Designated Wh Pcp: BILL ROONEY PHONE :[phone] PAGER:[phone] Snack Bar Cook: KATIE SMITH PHONE:[phone] Clinical Associate: VINCENT READ PHONE :[phone] Core Drier: GILBERTO MOSQUEDA GEORGE:[phone] PACT Clinical Pharmacist: FATMATA GARCIA GEORGE:[phone] Clinical POC: Administrative POC: Type of call: *TC SYMPTOM APPT. 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 /HELLEN Gracia, RN REGISTERED NURSE Signed: 12/19/2021 10:44 Receipt Acknowledged By: * AWAITING SIGNATURE * GILBERTO MOSQUEDA
--- OUTSIDE RECORDS SUMMARY | 2022-05-15 09:14 | XMS_ITS | Encounter Summary ---
:1935 Author Organization Department [facility] rs Address [address] [place] [address] Support Name Relationship Address Phone WADE LORENZO Unavailable [address] [place] [address] WADE LORENZO Unavailable [address] [place] [address] ARACELI MARSHALL Unavailable [address] [place] [address] GOMARILIA VAZQUEZA Unavailable [address] [place] [address] Insurance Providers: All historical and current Section Date Range: From patient's date of to the date document was created.This section includes the names of all active insurance providers for the patient. Insurance Type of Plan Start of End of Group Member Insurance Policy [facility] Provider Coverage Name Policy Policy Number ID Provider's Bales's Relationship Coverage Coverage Telephone Name to Policy Number Bales [place] Aug 19, [id number] Kristel EDDY [facility] (WNR) ADVANTAGE (WNR) 2016 8 [id number] [phone] [facility] 1 [place] Aug 19, [id number] Kristel EDDY [facility] (WNR) ADVANTAGE (WNR) 2016 8 [id number] [phone] [facility] 1 Selected Encounter This section includes the information on record at [place] for the Encounter. Date/Time Encounter Type Encounter Description Reason Provider Source Jan 17, 2022 04:26 Outpatient Encounter TELEPHONE TRIAGE PM IHE Encounter Template Text not used by [place] Plan of Treatment: Future Appointments (+ 6 months) and Future Tests (+/- 45 days) The Plan of Treatment section includes future care activities for the patient from all [place] [facility]. This section includes future appointments and future orders which are active, pending orscheduled.Future Appointments This section includes appointments that were scheduled to occur 6 months from the date of the Encounter, up to a maximum of 20 appointments. The data comes from all [facility]. Appointment Date/Time Appointment Type Appointment Facili ty Name Feb 02, 2022 09:30 AM AMBULATORY - MEDICINE [facility] Feb 07, 2022 01:37 PM AMBULATORY - NONE [facility] Feb 12, 2022 07:58 PM AMBULATORY - NONE [facility] Feb 26, 2022 07:36 PM AMBULATORY - NONE [facility] Mar 12, 2022 09:30 AM AMBULATORY - NONE [facility] Apr 02, 2022 09:00 AM AMBULATORY - PSYCHIATRY [facility] Apr 02, 2022 01:30 PM AMBULATORY - NEUROLOGY [facility] Apr 02, 2022 02:45 PM AMBULATORY - NONE [facility] Apr 26, 2022 10:00 AM AMBULATORY - PSYCHIATRY [facility] Apr 30, 2022 08:00 AM AMBULATORY - MEDICINE [facility] Apr 30, 2022 09:15 AM AMBULATORY - NONE [facility] May 01, 2022 11:06 AM AMBULATORY - NONE [facility] May 06, 2022 09:40 AM AMBULATORY - MEDICINE [facility] May 11, 2022 06:15 PM AMBULATORY - NONE [facility] Active, Pending, and Scheduled Orders This section includes a listing of several types of active, pending, and scheduled orders, including clinic medications orders, diagnostic test orders, procedure orders and consult orders; where the start date of the order is 45 days before the date of the Encounter or 45 days after the date of the Encounter. The data comes from all [facility]. Test Date/Time Test Type Test Details Facility Name December 19, 2021 12:00 AM Laboratory - Chemistry BASIC METABOLIC MIN [facility] Order PANEL+MG PLASMA SP ONCE December 19, 2021 12:00 AM Laboratory - Chemistry HEMOGLOBIN A1C BLOO D [facility] Order SP Lab Results: +/- 30 days of the encounter This section includes the Chemistry and Hematology Lab Results on record with [place] for the patient. Radiology Reports and Pathology Reports are provided separately, in subsequent sections.Lab Results This section contains the Chemistry/Hematology Results that were resulted 30 days before or 30 daysafter the date of the Encounter. Date/Time Source Result Type Result - Unit Interpretation Reference Range Comment Feb 02, 2022 11:29 AM [facility] B 12 Specim en Type: SERUM No comment enter ed. Ordering Provid er: BILL GUNTER Report Released Date/Time: Feb 02, 2022 09:56 AM Reporting Lab: [facility] [address] [facility] [address] Performing Lab: [facility] [address] [facility] [address] B 12 192 L [phone] Feb 02, 2022 11:29 AM [facility] FOLATE Specim en Type: SERUM No comment enter ed. Ordering Provid er: BILL GUNTER Report Released Date/Time: Feb 02, 2022 09:56 AM Reporting Lab: [facility] [address] [facility] [address] Performing Lab: [facility] [address] [facility] [address] FOLATE 10.6 >7.0 Feb 02, 2022 [facility] TSH W/REFLEX TO FREE Specime n Type: PLASMA 11:29 AM T4 No comment enter ed. Ordering Provid er: BILL GUNTER Report Released Date/Time: Feb 02, 2022 09:56 AM Reporting Lab: [facility] [address] [facility] [address] Performing Lab: [facility] [address] [facility] [address] TSH 1.95 0.35-4.94 Feb 02, 2022 11:29 [facility] SYPHILIS ANTIBODY Specime n Type: SERUM AM No comment enter ed. Ordering Provid er: BILL GUNTER Report Released Date/Time: Feb 02, 2022 09:56 AM Reporting Lab: [facility] [address] [facility] [address] Performing Lab: [facility] [address] [facility] [address] SYPHILIS ANTIBODY NEGATIVE Feb 02, 2022 11:29 AM [facility] IRON GROUP Specim en Type: SERUM No comment enter ed. Ordering Provid er: BILL GUNTER Report Released Date/Time: Feb 02, 2022 09:56 AM Reporting Lab: [facility] [address] [facility] [address] Performing Lab: [facility] [address] [facility] [address] IRON 67 65-175 TIBC,CALCULATED 304 250-425 FERRITIN 39.3 21.8-274.7 IRON SATURATION 22 20-50 TRANSFERRIN [phone] Feb 02, 2022 11:29 [facility] HEMOGLOBIN A1C Specimen Type: BLOOD AM No comment enter ed. Ordering Provid er: BILL GUNTER Report Released Date/Time: Feb 02, 2022 09:56 AM Reporting Lab: [facility] [address] [facility] [address] Performing Lab: [facility] [address] [facility] [address] HEMOGLOBIN A1C 8.2 H 4.0-6.0 Feb 02, 2022 11:29 [facility] HIV AG/AB SCREEN Specimen Type: SERUM AM No comment enter ed. Ordering Provid er: BILL GUNTER Report Released Date/Time: Feb 02, 2022 09:56 AM Reporting Lab: [facility] [address] [facility] [address] Performing Lab: [facility] [address] [facility] [address] HIV AG/AB SCREEN NEGATIVE NEGATIVE Feb 02, 2022 11:29 AM [facility] CBC Specim en Type: BLOOD No comment enter ed. Ordering Provid er: BILL GUNTER Report Released Date/Time: Feb 02, 2022 09:56 AM Reporting Lab: [facility] [address] [facility] [address] Performing Lab: [facility] [address] [facility] [address] WBC 9.18 4.0-11.0 RBC 4.38 L 4.6-6.2 HGB 13.1 L 13.5-17.9 HCT 40.9 L 41-54 MCV 93.4 80-100 MCH 29.9 27-33 MCHC 32.0 32.0-37.5 PLT 284 150-400 MPV 9.8 7.4-10.4 RDW 15.5 H 11.5-14.5 Feb 02, 2022 [facility] COMPREHENSIVE METABOLIC Spec imen Type: PLASMA 11:29 AM PANEL+MG No comment enter ed. Ordering Provid er: BILL GUNTER Report Released Date/Time: Feb 02, 2022 09:56 AM Reporting Lab: [facility] [address] [facility] [address] Performing Lab: [facility] [address] [facility] [address] CREATININE 1.7 H 0.7-1.2 UREA NITROGEN 20 8-26 GLUCOSE 176 H 74-100 SODIUM 137 136-145 POTASSIUM 4.2 3.5-5.1 CHLORIDE 105 98-107 CO2 22 22-29 CALCIUM 9.6 8.4-10.2 PROTEIN,TOTAL 7.1 6.0-8.3 ALBUMIN 3.9 3.5-5.2 BILIRUBIN, TOTAL 0.6 0.2-1.2 MAGNESIUM 1.7 1.6-2.6 ANION GAP 10 5-15 ALKALINE PHOSPHATASE 112 40-150 ALT/SGPT 21 <55 AST/SGOT 16 <34 CREAT EGFR(CKD-EPI) 39 L >60 Feb 02, 2022 [facility] METHYLMA ACID, [facility] Specime n Type: SERUM 11:29 AM Comment: This t est was developed and its analytical performance characteristics have been determined by [employer] [facility] [place], [place]. It has not been cleared or approved by the U.S . Food and Drug Administration. This assay has been validated pursuant to the CLIA regulations and is used for clinical purposes. Test Performed by [facility], [facility], [address] [place] [address] Domenic Miller M.D., Ph.D., Director of Laboratories , CLIA [id number] Ordering Provid er: BILL GUNTER Report Released Date/Time: Feb 02, 2022 12:56 PM Reporting Lab: [facility] [address] Performing Lab: [address] METHYLMA ACID, [place] 820 H 87-318 Feb 02, 2022 10:53 AM [facility] URINALYSIS Specim en Type: URINE No comment enter ed. Ordering Provid er: BILL GUNTER Report Released Date/Time: Feb 02, 2022 09:56 AM Reporting [facility]: [facility] [address] Performing Lab: [facility] [address] URINE COLOR LIGHT-YELLOW SPECIFIC GRAVITY 1.010 1.003-1.035 [...] smoking and tobacco-related health factors from the [place] facility where the Encounter took place.Current Smoking Status This section includes the most current smoking, or tobacco-related health factor, from the [place] facility where the Encounter took place. Date/Time Current Smoking Status Comment Facility Mar 22, 2021 07:45 AM [place]-TO[place]ACCO [place] USED [place] [facility] Tobacco Use History This section includes a history of the smoking, or tobacco- related health factors, that were collected on or before the date of the Encounter. The data comes from the [place] facility where the Encounter took place. Date/Time Smoking Status/Tobacco Use Comment [facility] Oct 02, 2019 10:02 AM [place]-TOBACCO [place] USED [place] [facility] May 21, 2018 09:05 AM [place]-TOBACCO [place] USED [place] [facility] December 25, 2017 06:14 PM INPT NO TOBACCO USE IN LAST 30 DAYS [facility] Oct 01, 2017 07:34 AM LIFETIME NON-TOBACCO USER [facility] Sep 28, 2016 08:44 AM LIFETIME NON-TOBACCO USER [facility] Oct 14, 2015 07:52 AM LIFETIME NON-TOBACCO USER [facility] Oct 11, 2014 07:59 AM LIFETIME NON-TOBACCO USER [facility] January 15, 2007 07:55 AM LIFETIME NON-TOBACCO USER [facility] Advance Directives: All historical and current Section Date Range: From patient's date of to the date document was created. This section includes ALL of a patient's completed or amended [place] Advance and Rescinded Directives. The entries below indicate that a directive exists for the patient, but an actual copy is not included with this document. The data comes from all [facility]. Date Advance Directives Provider Source Apr 18, 2018 ADVANCE DIRECTIVE LARISSA SIGALA [facility] Apr 18, 2018 ADVANCE DIRECTIVE DISCUSSION LARISSA SIGALA [facility] December 23, 2017 CLINICAL WARNING FARHAT SCHMID [facility] May 11, 2003 ADVANCE DIRECTIVE BERT CASILLAS [facility] Encounter Notes: All associated encounter notes This section contains the clinical notes associated to the Encounter. Date/Time Encounter Note(s) Provider Source Jan 17, 2022 04:26 PM REPORT OF CONTACT: DIDI,BIANKA ELIANA ANDRIA HER [facility] LOCAL TITLE: PATIENT CONTACT NOTE STANDARD TITLE: REPORT OF CONTACT DATE OF NOTE: JAN 17, 2022@16:26 ENTRY DATE: JAN 17, 2022@16:26:27 AUTHOR: BIANKA TOLBERT EXP COSIGNER: URGENCY: STATUS: COMPLETED PATIENT CONTACT NOTE Has ADDENDA Patient contact Name of : NUNULUISANA H Name/Relationship of Contact if other than Veter an: Date & Time of Contact: Jan@16:26 Type of Contact: Reason for Contact: 's nephew, oliva Heard stating that the recently went back to the ER and was recommended to see a neur ologist. Félix is requesting to have PCP place a consult for neuro. Pearl Restorer did transf er the to utilization nurse for records. /ronni/ BIANKA TOLBERT [facility] 23 [facility] Call Center MSA Signed: 01/17/2022 16:29 Receipt Acknowledged By: 01/17/2022 17:05 /ronni/ Bill Gunter MD Physician 01/18/2022 08:28 /ronni/ HELLEN WARREN, RN REGISTERED NURSE 01/17/2022 ADDENDUM STATUS: COMPLETED RN team: are you able to pull these records from [facility] for me to review? /yvette Gunter MD Physician Signed: 01/17/2022 17:07 Receipt Acknowledged By: 01/18/2022 08:36 /HELLEN Gracia, RN REGISTERED NURSE 01/18/2022 ADDENDUM STATUS: COMPLETED Pearl Restorer spoke with Félix. There are no records in [facility]. He agreed to have records faxed for PCP review. /HELLEN Gracia, RN REGISTERED NURSE Signed: 01/18/2022 08:37
--- OUTSIDE RECORDS SUMMARY | 2022-05-15 09:14 | XMS_ITS | Encounter Summary ---
:1935 Author Organization [facility] Address [address] [place] [address] Support Name Relationship Address Phone WADE LORENZO Unavailable [address] [place] [address] WADE LORENZO Unavailable [address] [place] [address] MARILIA MARSHALLA Unavailable [address] [facility] [place] [address] GOGEORGE, ARACELI Unavailable [address] [place] [address] Insurance Providers: All historical and current Section [...] Bales [place] M[place] Aug 19, [id number] Kristel EDDY [facility] (WNR) ADVANTAGE (WNR) 2017 8 [id number] [phone] [facility] 1 [place] MED[place] M[place] Aug 19, [id number] Kristel EDDY [facility] (WNR) ADVANTAGE (WNR) 2016 8 [id number] [phone] [facility] 1 Selected Encounter This section includes the information on record at AL for the Encounter. Date/Time Encounter Type Encounter Description Reason Provider Source December 30, 2021 12:00 Outpatient Encounter ADMIN PAT ACTIVTIES AM (MASNONCT) IHE Encounter Template Text not used by AL Plan of Treatment: Future Appointments (+ 6 months) and Future Tests (+/- 45 days) The Plan of Treatment section includes future care activities for the patient from [facility] [place] [facility]. This section includes future appointments and future orders which are active, pending orscheduled.Future Appointments This section includes appointments that were scheduled to occur 6 months from the date of the Encounter, up to a maximum of 20 appointments. The data comes from all [facility]. Appointment Date/Time Appointment Type Appointment Facili ty Name Feb 02, 2022 09:30 AM AMBULATORY - MEDICINE [facility] Feb 07, 2022 01:37 PM AMBULATORY - NONE [facility] Feb 12, 2022 07:58 PM AMBULATORY - NONE [facility] Feb 26, 2022 07:36 PM AMBULATORY - NONE [facility] Mar 12, 2022 09:30 AM AMBULATORY - NONE [facility] Apr 02, 2022 09:00 AM AMBULATORY - PSYCHIATRY [facility] Apr 02, 2022 01:30 PM AMBULATORY - NEUROLOGY [facility] Apr 02, 2022 02:45 PM AMBULATORY - NONE [facility] Apr 26, 2022 10:00 AM AMBULATORY - PSYCHIATRY [facility] Apr 30, 2022 08:00 AM AMBULATORY - MEDICINE [facility] Apr 30, 2022 09:15 AM AMBULATORY - NONE [facility] May 01, 2022 11:06 AM AMBULATORY - NONE [facility] May 06, 2022 09:40 AM AMBULATORY - MEDICINE [facility] May 11, 2022 06:15 PM AMBULATORY - NONE [facility] Active, Pending, and Scheduled [...] the Encounter. The data comes from all [facility]. Test Date/Time Test Type Test Details Facility Name December 19, 2021 12:00 AM Laboratory - Chemistry BASIC METABOLIC MIN [facility] Order PANEL+MG PLASMA SP ONCE December 19, 2021 12:00 AM Laboratory - Chemistry HEMOGLOBIN A1C BLOO D [facility] Order SP Social History: Smoking Status (Most [...] 22, 2021 07:45 AM [facility] Tobacco Use History This section includes a history of the smoking, or tobacco- related health factors, that were collected on or before the date of the Encounter. The data comes from the [place] facility where the Encounter took place. Date/Time Smoking Status/Tobacco Use Comment [facility] Oct 02, 2019 10:02 AM [place]-TO[place] USED [place] [facility] May 21, 2018 09:05 AM [place] December 25, 2017 06:14 PM [...] this document. The data comes from all [facility]. Date Advance Directives Provider Source Apr 18, 2018 ADVANCE DIRECTIVE LARISSA SIGALA [facility] Apr 18, 2018 ADVANCE DIRECTIVE DISCUSSION LARISSA SIGALA [facility] December 23, 2017 CLINICAL WARNING FARHAT [facility] May 11, 2003 ADVANCE DIRECTIVE BERT CASILLAS [facility] Encounter Notes: All associated encounter notes This section contains the clinical notes associated to the Encounter. Date/Time Encounter Note(s) Provider Source December 30, 2021 12:00 AM NONVA NOTE: ROOSEVELT HOWELL [facility] LOCAL TITLE: HOSPITALIZATION PRIVATE NONVA NOTE STANDARD TITLE: NONVA NOTE DATE OF NOTE: DECEMBER 30, 2021 ENTRY DATE: JAN 23 022@08:56:35 AUTHOR: ROOSEVELT HOWELL EXP COSIGNER: URGENCY: STATUS: COMPLETED VistA Imaging - Scanned Document This note contains attached HOSPITALIZATION PRIV ATE scanned document(s) received from an outside facility. Open [facility] Display to review the kemal leigh(s). /ronni/ ROOSEVELT HOWELL Fixed Income Portfolio Manager - HIT Signed: 01/23/2022 08:56
--- OUTSIDE RECORDS SUMMARY | 2022-05-15 09:14 | XMS_ITS | Encounter Summary ---
:1935 Author Organization [facility] [employer] [facility] Address [address] [place] [address] Support Name Relationship Address Phone NATHANIEL LORENZO Unavailable [address] [place] [address] NATHANIEL LORENZO Unavailable [address] [place] [address] ARACELI MARSHALL Unavailable [address] [place] [address] GOMARILIA VAZQUEZA Unavailable [address] [place] [address] Insurance Providers: All historical and current Section Date Range: From patient's date of to the date document was created.This section includes the names of all active insurance providers for the patient. Insurance Type of Plan Start of End of Group Member Insurance Policy P [facility] Provider Coverage Name Policy Policy Number ID Provider's Blaes's Relationship Coverage Coverage Telephone Name to Policy Number [place] Aug 19, [id number] Kristel EDDY [facility] (WNR) ADVANTAGE (WNR) 2016 8 [id number] [phone] [facility] [place] MED[place] Aug 19, [id number] Kristel EDDY [facility] (WNR) ADVANTAGE (WNR) 2017 03 [id number] [phone] [facility] Selected Encounter This section includes [...] activities for the patient from all [place] [facility]. This section includes future appointments and future orders which are active, pending orscheduled.Future Appointments This section includes appointments that were scheduled to occur 6 months from the date of the Encounter, up to a maximum of 20 appointments. The data comes from all [facility] [address] [facility]. Appointment Date/Time Appointment Type Appointment Facili ty Name Feb 02, 2022 09:30 AM AMBULATORY - MEDICINE [facility] Feb 07, 2022 01:37 PM AMBULATORY - NONE [facility] Feb 12, 2022 07:58 PM AMBULATORY - NONE [facility] Feb 26, 2022 07:36 PM AMBULATORY - NONE [facility] Mar 12, 2022 09:30 AM AMBULATORY - NONE [facility] Apr 02, 2022 09:00 AM AMBULATORY - PSYCHIATRY [facility] Apr 02, 2022 01:30 PM AMBULATORY - NEUROLOGY [facility] Apr 02, 2022 02:45 PM AMBULATORY - NONE [facility] Apr 26, 2022 10:00 AM AMBULATORY - PSYCHIATRY [facility] Apr 30, 2022 08:00 AM AMBULATORY - MEDICINE [facility] Apr 30, 2022 09:15 AM AMBULATORY - NONE [facility] May 01, 2022 11:06 AM AMBULATORY - NONE [facility] May 06, 2022 09:40 AM AMBULATORY - MEDICINE [facility] May 11, 2022 06:15 PM AMBULATORY - NONE [facility] Active, Pending, and Scheduled Orders This section includes a listing of several types of active, pending, and scheduled orders, including clinic medications orders, diagnostic test orders, procedure orders and consult orders; where the start date of the order is 45 days before the date of the Encounter or 45 days after the date of the Encounter. The data comes from all [facility] [address]. Test Date/Time Test Type Test Details Facility Name December 19, 2021 12:00 AM Laboratory - Chemistry HEMOGLOBIN A1C BLOO D [facility] Order SP December 19, 2021 12:00 AM Laboratory - Chemistry BASIC METABOLIC MIN [facility] Order PANEL+MG PLASMA SP ONCE Lab Results: +/- 30 days of the [...] Range Comment Feb 02, 2022 11:29 AM [facility] B 12 Specim en Type: SERUM No comment enter ed. Ordering Provid er: BILL ROONEY Report Released Date/Time: Feb 02, 2022 09:56 AM Reporting Lab: [facility] [address] [facility] [address] Performing Lab: [facility] [address] [facility] [address] B 12 192 L [phone] Feb 02, 2022 11:29 AM [facility] FOLATE Specim en Type: SERUM No comment enter ed. Ordering Provid er: BILL ROONEY Report Released Date/Time: Feb 02, 2022 09:56 AM Reporting Lab: [facility] [address] [facility] [address] Performing Lab: [facility] [address] [facility] [address] FOLATE 10.6 >7.0 Feb 02, 2022 [facility] TSH W/REFLEX TO FREE Specime n Type: PLASMA 11:29 AM T4 No comment enter ed. Ordering Provid er: BILL ROONEY Report Released Date/Time: Feb 02, 2022 09:56 AM Reporting Lab: [facility] [address] [facility] [address] Performing Lab: [facility] [address] [facility] [address] TSH 1.95 0.35-4.94 Feb 02, 2022 11:29 [facility] SYPHILIS ANTIBODY Specime n Type: SERUM AM No comment enter ed. Ordering Provid er: BILL ROONEY Report Released Date/Time: Feb 02, 2022 09:56 AM Reporting Lab: [facility] [address] [facility] [address] Performing Lab: [facility] [address] [facility] [address] SYPHILIS ANTIBODY NEGATIVE Feb 02, 2022 11:29 AM [facility] IRON GROUP Specim en Type: SERUM No comment enter ed. Ordering Provid er: BILL ROONEY Report Released Date/Time: Feb 02, 2022 09:56 AM Reporting Lab: [facility] [address] [facility] [address] Performing Lab: [facility] [address] [facility] [address] IRON 67 65-175 TIBC,CALCULATED 304 250-425 FERRITIN 39.3 21.8-274.7 IRON SATURATION 22 20-50 TRANSFERRIN [phone] Feb 02, 2022 11:29 [facility] HEMOGLOBIN A1C Specimen Type: BLOOD AM No comment enter ed. Ordering Provid er: BILL ROONEY Report Released Date/Time: Feb 02, 2022 09:56 AM Reporting Lab: [facility] [address] [facility] [address] Performing Lab: [facility] [address] [facility] [address] HEMOGLOBIN A1C 8.2 H 4.0-6.0 Feb 02, 2022 11:29 [facility] HIV AG/AB SCREEN Specimen Type: SERUM AM No comment enter ed. Ordering Provid er: BILL ROONEY Report Released Date/Time: Feb 02, 2022 09:56 AM Reporting Lab: [facility] [address] [facility] [address] Performing Lab: [facility] [address] [facility] [address] HIV AG/AB SCREEN NEGATIVE NEGATIVE Feb 02, 2022 [facility] COMPREHENSIVE METABOLIC Spec imen Type: PLASMA 11:29 AM PANEL+MG No comment enter ed. Ordering Provid er: BILL ROONEY Report Released Date/Time: Feb 02, 2022 09:56 AM Reporting Lab: [facility] [address] [facility] [address] Performing Lab: [facility] [address] [facility] [address] CREATININE 1.7 H 0.7-1.2 UREA NITROGEN 20 [...] L >60 Feb 02, 2022 11:29 AM [facility] CBC Specim en Type: BLOOD No comment enter ed. Ordering Provid er: BILL ROONEY Report Released Date/Time: Feb 02, 2022 09:56 AM Reporting Lab: [facility] [address] [facility] [address] [facility] [address] Performing Lab: [facility] [address] [facility] [address] WBC 9.18 4.0-11.0 RBC 4.38 L 4.6-6.2 HGB 13.1 L 13.5-17.9 HCT 40.9 L 41-54 MCV 93.4 80-100 MCH 29.9 27-33 MCHC 32.0 32.0-37.5 PLT 284 150-400 MPV 9.8 7.4-10.4 RDW 15.5 H 11.5-14.5 Feb 02, 2022 [facility] METHYLMA ACID, [facility] Specime n Type: SERUM 11:29 AM Comment: This t est was developed and its analytical performance characteristics have been determined by [employer] [place], [place]. It has not been cleared or approved by the U.S . Food and Drug Administration. This assay has been validated pursuant to the CLIA regulations and is used for clinical purposes. Test Performed by [facility], [employer] [facility], [address] [place] [address] Domenic Miller M.D., Ph.D., Director of Laboratories , CLIA [id number] Ordering Provid er: BILL ROONEY Report Released Date/Time: Feb 02, 2022 12:56 PM Reporting Lab: [facility] [address] Performing Lab: [address] METHYLMA ACID, [place] 820 H [phone] Feb 02, 2022 10:53 AM [facility] URINALYSIS Specim en Type: URINE No comment enter ed. Ordering Provid er: BILL ROONEY Report Released Date/Time: Feb 02, 2022 09:56 AM Reporting Lab: [facility] [address] [facility] [address] Performing Lab: [facility] [address] URINE COLOR LIGHT-YELLOW SPECIFIC GRAVITY 1.010 1.003-1.035 [...] smoking and tobacco-related health factors from the [place] facility where the Encounter took place.Current Smoking Status This section includes the most current smoking, or tobacco-related health factor, from the [place] facility where the Encounter took place. Date/Time Current Smoking Status Comment Facility Mar 22, 2021 07:45 AM [place]-TOBACCO [place] USED [place] [facility] Tobacco Use History This section includes a history of the smoking, or tobacco- related health factors, that were collected on or before the date of the Encounter. The data comes from the [place] facility where the Encounter took place. Date/Time Smoking Status/Tobacco Use Comment [facility] Oct 02, 2019 10:02 AM [place]-TOBACCO [place] USED [place] [facility] May 21, 2018 09:05 AM [place]-TOBACCO NEVER USED [place] [facility] December 25, 2017 06:14 PM INPT NO TOBACCO USE IN LAST 30 DAYS [facility] Oct 01, 2017 07:34 AM LIFETIME NON-TOBACCO USER [facility] Sep 28, 2016 08:44 AM LIFETIME NON-TOBACCO USER [facility] Oct 14, 2015 07:52 AM LIFETIME NON-TOBACCO USER [facility] Oct 11, 2014 07:59 AM LIFETIME NON-TOBACCO USER [facility] January 15, 2007 07:55 AM LIFETIME NON-TOBACCO USER [facility] Advance Directives: All historical and current [...] 2018 ADVANCE DIRECTIVE LARISSA SIGALA [facility] Apr 18, 2018 ADVANCE DIRECTIVE DISCUSSION LARISSA SIGALA [facility] December 23, 2017 CLINICAL WARNING FARHAT [facility] May 11, 2003 ADVANCE DIRECTIVE BERT CASILLAS [facility] Encounter Notes: All associated encounter notes This section contains the clinical notes associated to the Encounter. Date/Time Encounter Note(s) Provider Source Jan 18, 2022 03:43 PM REPORT OF CONTACT: ANNE-MARIE PERALTA [facility] LOCAL TITLE: PATIENT CONTACT NOTE STANDARD [...] . No availability in the clinic for writ er to schedule this. /ronni/ [facility] MSA Signed: 01/18/2022 15:46 Receipt Acknowledged By: * AWAITING SIGNATURE * BILL ROONEY 01/18/2022 16:10 /ronni/ HELLEN WARREN, RN REGISTERED NURSE 01/18/2022 ADDENDUM STATUS: COMPLETED Please call pt to schedule. /ronni/ HELLEN WARREN, RN REGISTERED NURSE Signed: 01/18/2022 16:10 Receipt Acknowledged By: * AWAITING SIGNATURE * GILBERTO MOSQUEDA
--- OUTSIDE RECORDS SUMMARY | 2022-05-15 09:15 | XMS_ITS | Encounter Summary ---
:1935 Author Organization [facility] Address [address] [place] [address] Support Name Relationship Address Phone WADE LORENZO Unavailable [address] [place] [address] WADE LORENZO Unavailable [address] [place] [address] MARILIA MARSHALLA Unavailable [address] [place] [address] GOGEORGE, ARACELI Unavailable [address] [place] [address] Insurance Providers: All historical and current Section [...] Bales [place] Aug 19, [id number] Kristel [facility]WNR) 2017 8 [id number] [phone] [facility] 1 [place] MEDICARE M[place] Aug 19, [id number] Kristel [facility] (WNR) 2016 8 [id number] [phone] [facility] 1 Selected Encounter This section includes the information on record at [place] for the Encounter. Date/Time Encounter Type Encounter Description Reason Provider Source December 29, 2021 12:00 Outpatient Encounter ADMIN PAT ACTIVTIES AM (MASNONCT) IHE Encounter Template Text not used by [place] Plan of Treatment: Future Appointments (+ 6 months) and Future Tests (+/- 45 days) The Plan of Treatment section includes future care activities for the patient from all [place] [facility] This section includes future appointments and future orders which are active, pending orscheduled.Future Appointments This section includes appointments that were scheduled to occur 6 months from the date of the Encounter, up to a maximum of 20 appointments. The data comes from all [facility]. Appointment Date/Time Appointment Type Appointment Facili ty Name Feb 02, 2022 09:30 AM AMBULATORY - MEDICINE [facility] Feb 07, 2022 01:37 PM AMBULATORY - NONE [facility] Feb 12, 2022 07:58 PM AMBULATORY - NONE [facility] Feb 26, 2022 07:36 PM AMBULATORY - NONE [facility] Mar 12, 2022 09:30 AM AMBULATORY - NONE [facility] Apr 02, 2022 09:00 AM AMBULATORY - PSYCHIATRY [facility] Apr 02, 2022 01:30 PM AMBULATORY - NEUROLOGY [facility] Apr 02, 2022 02:45 PM AMBULATORY - NONE [facility] Apr 26, 2022 10:00 AM AMBULATORY - PSYCHIATRY [facility] Apr 30, 2022 08:00 AM AMBULATORY - MEDICINE [facility] Apr 30, 2022 09:15 AM AMBULATORY - NONE [facility] May 01, 2022 11:06 AM AMBULATORY - NONE [facility] May 06, 2022 09:40 AM AMBULATORY - MEDICINE [facility] May 11, 2022 06:15 PM AMBULATORY - NONE [facility] Active, Pending, and Scheduled Orders This section includes a listing of several types of active, pending, and scheduled orders, including clinic medications orders, diagnostic test orders, procedure orders and consult orders; where the start date of the order is 45 days before the date of the Encounter or 45 days after the date of the Encounter. The data comes from all [facility]. Test Date/Time Test Type Test Details Facility Name December 19, 2021 12:00 AM Laboratory - Chemistry BASIC METABOLIC MIN [facility] Order PANEL+MG PLASMA SP ONCE December 19, 2021 12:00 AM Laboratory - Chemistry HEMOGLOBIN A1C BLOO D [facility] Order SP Social History: Smoking Status (Most current) and Tobacco Use (All prior to encounter date) This section includes the most current, and the historical, smoking and tobacco-related health factors from the [place] facility where the Encounter took place.Current Smoking Status This section includes the most current smoking, or tobacco-related health factor, from the [place] facility where the Encounter took place. Date/Time Current Smoking Status Comment Facility Mar 22, 2021 07:45 AM [place]-TOBACCO [facility] USED [facility] Tobacco Use History This section includes a history of the smoking, or tobacco- related health factors, that were collected on or before the date of the Encounter. The data comes from the [place] facility where the Encounter took place. Date/Time Smoking Status/Tobacco Use Comment [facility] Oct 02, 2019 10:02 AM [place]TOB[place]CO [place] USED [place] [facility] May 21, 2018 09:05 AM [place] December 25, 2017 06:14 PM INPT NO TOBACCO USE IN LAST 30 DAYS [facility] Oct 01, 2017 07:34 AM LIFETIME NON-TOBACCO USER [facility] Sep 28, 2016 08:44 AM LIFETIME NON-TOBACCO USER [facility] Oct 14, 2015 07:52 AM LIFETIME NON-TOBACCO USER [facility] Oct 11, 2014 07:59 AM LIFETIME NON-TOBACCO USER [facility] January 15, 2007 07:55 AM LIFETIME NON-TOBACCO USER [facility] Advance Directives: All historical and current Section Date Range: From patient's date of to the date document was created. This section includes ALL of a patient's completed or amended [place] Advance and Rescinded Directives. The entries below indicate that a directive exists for the patient, but an actual copy is not included with this document. The data comes from all [facility]. Date Advance Directives Provider Source Apr 18, 2018 ADVANCE DIRECTIVE LARISSA SIGALA [facility] Apr 18, 2018 ADVANCE DIRECTIVE DISCUSSION LARISSA SIGALA [facility] December 23, 2017 CLINICAL WARNING FARHAT SCHMID [facility] May 11, 2003 ADVANCE DIRECTIVE BERT CASILLAS [facility] Encounter Notes: All associated encounter notes This section contains the clinical notes associated to the Encounter. Date/Time Encounter Note(s) Provider Source December 29, 2021 12:00 AM NONVA NOTE: ROOSEVELT HOWELL [facility] LOCAL TITLE: CARDIOLOGY NONVA NOTE STANDARD TITLE: NONVA NOTE DATE OF NOTE: DECEMBER 29, 2021 ENTRY DATE: JAN 23 022@08:58:44 AUTHOR: ROOSEVELT HOWELL EXP COSIGNER: URGENCY: STATUS: COMPLETED VistA Imaging - Scanned Document This note contains attached [CARDIOLOGY] scanned document(s) received from an outside facility. Open [facility] Display to review the kemal leigh(s). /ronni/ ROOSEVELT HOWELL Laser Engraver - HIT Signed: 01/23/2022 08:58
--- OUTSIDE RECORDS SUMMARY | 2022-05-15 09:15 | XMS_ITS | Encounter Summary ---
:[address] [facility] rs Address [address] [place] [address] Support Name Relationship Address Phone NATHANIEL LORENZO Unavailable [id number] [place] [address] NATHANIEL LORENZO Unavailable [address] [place] [address] ARACELI MARSHALL Unavailable [phone] [facility] [place] [address] MARILIA MARSHALLA Unavailable [phone] [place] [address] Insurance Providers: All historical and current Section [...] [place] M[place] Aug 19, [id number] [facility] [facility]NR) 2017 8 [id number] [phone] [facility] 1 [place] MEDICARE M[place] Aug 19, [id number] Kristel [facility]WNR) 2016 8 [id number] [phone] [facility] 1 Selected Encounter This section includes the information on record at AL for the Encounter. Date/Time Encounter Type Encounter Reason Provider Source Description Feb 02, 2022 OFFICE O/P EST PRIMARY ICD-10-CM I48.20 NENA GUNTER 09:30 AM HI 40-54 MIN CARE/MEDICINE Chronic atrial JOANNE L fibrillation, unspecified with Provider Comments: Chronic atrial fibrillation ([facility] [id number]) IHE Encounter Template Text not used by AL Assessments - Encounter Diagnoses This section includes the primary and secondary diagnoses documented for the Encounter. Date/Time Primary/Secondary Diagnosis Name Provider Source Diagnosis Feb 02, 2022 PRIMARY Chronic atrial NENA GUNTER [facility] 10:46 AM fibrillation, JOANNE L HCS unspecified Feb 02, 2022 SECONDARY Encounter for JENNIFER RUIZ [facility] A 10:46 AM immunization [facility] Plan of Treatment: Future Appointments (+ 6 months) and Future Tests (+/- 45 days) The Plan of Treatment section includes future care activities for the patient [facility] This section includes future appointments [...] 07, 2022 01:37 PM AMBULATORY - NONE [facility] Feb 12, 2022 07:58 PM AMBULATORY - NONE [facility] Feb 26, 2022 07:36 PM AMBULATORY - NONE [facility] Mar 12, 2022 09:30 AM AMBULATORY - NONE [facility] Apr 02, 2022 09:00 AM AMBULATORY - PSYCHIATRY [facility] Apr 02, 2022 01:30 PM AMBULATORY - NEUROLOGY [facility] Apr 02, 2022 02:45 PM AMBULATORY - NONE [facility] Apr 26, 2022 10:00 AM AMBULATORY - PSYCHIATRY [facility] Apr 30, 2022 08:00 AM AMBULATORY - MEDICINE [facility] Apr 30, 2022 09:15 AM AMBULATORY - NONE [facility] May 01, 2022 11:06 AM AMBULATORY - NONE [facility] May 06, 2022 09:40 AM AMBULATORY - MEDICINE [facility] May 11, 2022 06:15 PM AMBULATORY - NONE [facility] Jul 23, 2022 08:00 AM AMBULATORY - NEUROLOGY [facility] Active, Pending, and Scheduled Orders This section includes a listing of several types of active, pending, and scheduled orders, including clinic medications orders, diagnostic test orders, procedure orders and consult orders; where the start date of the order is 45 days before the date of the Encounter or 45 days after the date of the Encounter. The data comes from all [place] treatment facilities. Test Date/Time Test Type Test Details Facility Name December 19, 2021 12:00 AM Laboratory - Chemistry BASIC METABOLIC [place] [facility] Order PANEL+MG PLASMA SP ONCE December 19, 2021 12:00 AM Laboratory - Chemistry HEMOGLOBIN A1C BLOO D [facility] Order SP Lab Results: +/- 30 days [...] Range Comment Feb 02, 2022 11:29 AM [facility] B 12 Specim en Type: SERUM No comment enter ed. Ordering Provid er: BILL GUNTER Report Released Date/Time: Feb 02, 2022 09:56 AM Reporting Lab: [facility] [address] [facility] [address] Performing Lab: [facility] [address] [facility] [address] B 12 192 L [phone] Feb 02, 2022 11:29 AM [facility] FOLATE Specim en Type: SERUM No comment enter ed. Ordering Provid er: BILL GUNTER Report Released Date/Time: Feb 02, 2022 09:56 AM Reporting Lab: [facility] [address] [facility] [address] Performing Lab: [facility] [address] [facility] [address] FOLATE 10.6 >7.0 Feb 02, 2022 [facility] TSH W/REFLEX TO FREE Specime n Type: PLASMA 11:29 AM T4 No comment enter ed. Ordering Provid er: BILL GUNTER Report Released Date/Time: Feb 02, 2022 09:56 AM Reporting Lab: [facility] [address] [facility] [address] Performing Lab: [facility] [address] [facility] [address] TSH 1.95 0.35-4.94 Feb 02, 2022 11:29 [facility] SYPHILIS ANTIBODY Specime n Type: SERUM AM No comment enter ed. Ordering Provid er: BILL GUNTER Report Released Date/Time: Feb 02, 2022 09:56 AM Reporting Lab: [facility] [address] [facility] [address] Performing Lab: [facility] [address] [facility] [address] SYPHILIS ANTIBODY NEGATIVE Feb 02, 2022 11:29 AM [facility] IRON GROUP Specim en Type: SERUM No comment enter ed. Ordering Provid er: BILL GUNTER Report Released Date/Time: Feb 02, 2022 09:56 AM Reporting Lab: [facility] [address] [facility] [address] Performing Lab: [facility] [address] [facility] [address] IRON 67 65-175 TIBC,CALCULATED 304 250-425 FERRITIN 39.3 21.8-274.7 IRON SATURATION 22 20-50 TRANSFERRIN [phone] Feb 02, 2022 11:29 [facility] HEMOGLOBIN A1C Specimen Type: BLOOD AM No comment enter ed. Ordering Provid er: BILL GUNTER Report Released Date/Time: Feb 02, 2022 09:56 AM Reporting Lab: [facility] [address] [facility] [address] Performing Lab: [facility] [address] [facility] [address] HEMOGLOBIN A1C 8.2 H 4.0-6.0 Feb 02, 2022 11:29 [facility] HIV AG/AB SCREEN Specimen Type: SERUM AM No comment enter ed. Ordering Provid er: BILL GUNTER Report Released Date/Time: Feb 02, 2022 09:56 AM Reporting Lab: [facility] [address] [facility] [address] Performing Lab: [facility] [address] [facility] [address] HIV AG/AB SCREEN NEGATIVE NEGATIVE Feb 02, 2022 11:29 AM [facility] CBC Specim en Type: BLOOD No comment enter ed. Ordering Provid er: BILL GUNTER Report Released Date/Time: Feb 02, 2022 09:56 AM Reporting Lab: [facility] [address] [facility] [address] Performing Lab: [facility] [address] [facility] [address] WBC 9.18 4.0-11.0 RBC 4.38 L 4.6-6.2 HGB 13.1 L 13.5-17.9 HCT 40.9 L 41-54 MCV 93.4 80-100 MCH 29.9 27-33 MCHC 32.0 32.0-37.5 PLT 284 150-400 MPV 9.8 7.4-10.4 RDW 15.5 H 11.5-14.5 Feb 02, 2022 [facility] COMPREHENSIVE METABOLIC Spec imen Type: PLASMA 11:29 AM PANEL+MG No comment enter ed. Ordering Provid er: BILL GUNTER Report Released Date/Time: Feb 02, 2022 09:56 AM Reporting Lab: [facility] [address] [facility] [address] Performing Lab: [facility] [address] CREATININE 1.7 H 0.7-1.2 UREA NITROGEN 20 8-26 GLUCOSE 176 H 74-100 SODIUM 137 136-145 POTASSIUM 4.2 3.5-5.1 CHLORIDE 105 98-107 CO2 22 22-29 CALCIUM 9.6 8.4-10.2 PROTEIN,TOTAL 7.1 6.0-8.3 ALBUMIN 3.9 3.5-5.2 BILIRUBIN, TOTAL 0.6 0.2-1.2 MAGNESIUM 1.7 1.6-2.6 ANION GAP 10 5-15 ALKALINE PHOSPHATASE 112 40-150 ALT/SGPT 21 <55 AST/SGOT 16 <34 CREAT EGFR(CKD-EPI) 39 L >60 Feb 02, 2022 [facility] METHYLMA ACID, [place] Specime n Type: SERUM 11:29 AM Comment: This t est was developed and its analytical performance characteristics have been determined by [facility] [place] [place]. It has not been cleared or approved by the U.[place] . Food and Drug Administration. This assay has been validated pursuant to the CLIA regulations and is used for clinical purposes. Test Performed by [employer] [employer] [place], [address] [place] [address] Domenic Miller M.D., Ph.D., Director of Laboratories , CLIA [id number] Ordering Provid er: BILL GUNTER Report Released Date/Time: Feb 02, 2022 12:56 PM Reporting Lab: [facility] [phone] Performing Lab: [address] [place] METHYLMA ACID, [place] 820 H 87-318 Feb 02, 2022 10:53 AM [facility] URINALYSIS Specim en Type: URINE No comment enter ed. Ordering Provid er: BILL GUNTER Report Released Date/Time: Feb 02, 2022 09:56 AM Reporting Lab: [facility] [address] [facility] [address] Performing Lab: [facility] [address] [facility] [address] URINE COLOR LIGHT-YELLOW SPECIFIC GRAVITY 1.010 1.003-1.035 [...] dy Source Pressure Rate Mass Index Feb 02 97.1 F 91 105/67 16 /min 97 % 0 284.1 37 [place] 2021 09:21 /min mm[Hg] lb OLIS AL AM [facility] Immunizations: All administered on the encounter date This section contains immunizations associated to the Encounter. Immunization Series Date Issued Reaction Comments PNEUMOCOCCAL POLYSACCHARIDE PPV23 Feb 02, 2022 Social History: Smoking Status (Most current) and Tobacco Use (All prior to encounter date) This section includes the most current, and the historical, smoking and tobacco-related health factors from the [facility] where the Encounter took place.Current Smoking Status This section includes the most current smoking, or tobacco-related health factor, from the AL facility where the Encounter took place. Date/Time Current Smoking Status Comment Facility Feb 02, 2022 09:30 AM [place]-TOBACCO NEVER USED [place] [facility] Tobacco Use History This section includes a history of the smoking, or tobacco- related health factors, that were collected on or before the date of the Encounter. The data comes from the AL facility where the Encounter took place. Date/Time Smoking Status/Tobacco Use Comment [facility] Mar 22, 2021 07:45 AM [place]-TOBACCO NEVER USED [place] [facility] Oct 02, 2019 10:02 AM [place]-TOBACCO NEVER USED [place] [facility] May 21, 2018 09:05 AM [place]-TOBACCO NEVER USED [place] [facility] December 25, 2017 06:14 PM INPT NO TOBACCO USE IN LAST 30 DAYS [facility] Oct 01, 2017 07:34 AM LIFETIME NON-TOBACCO USER [facility] Sep 28, 2016 08:44 AM LIFETIME NON-TOBACCO USER [facility] Oct 14, 2015 07:52 AM LIFETIME NON-TOBACCO USER [facility] Oct 11, 2014 07:59 AM LIFETIME NON-TOBACCO USER [facility] January 15, 2007 07:55 AM LIFETIME NON-TOBACCO USER [facility] Advance Directives: All historical and [...] Apr 18, 2018 ADVANCE DIRECTIVE LARISSA SIGALA [facility] Apr 18, 2018 ADVANCE DIRECTIVE DISCUSSION [facility] December 23, 2017 CLINICAL WARNING [facility] May 11, 2003 ADVANCE DIRECTIVE BERT CASILLAS [facility] Encounter Notes: All associated encounter notes This section contains the clinical notes associated to the Encounter. Date/Time Encounter Note(s) Provider Source Feb 02, 2022 10:11 INTERNAL MEDICINE NOTE: BILL GUNTER [facility] AM LOCAL TITLE: MEDICINE CLINIC [...] of 2 today Occupational therapy assessment from [facility] brought in by the family today indicative [...] podiatry -Yearly eye exam up-to-date by community [facility] mology -A1c ordered today Elevated PSA with BPH Urinary outlet obstruction with bacteremia requi ring hospitalization January 2021 TURP February 2021 Readmission for prostatitis with sepsis and UTI December 2021 -follows with urology Dr Moreno at [facility] -Continue finasteride 5 mg daily. -Checking a UA as above today to assess for ongo ing infection Chronic kidney disease stage 3 -Continue vitamin D Diastolic heart failure HTN Dyslipidemia Chronic atrial fibrillation -Managed by cardiology and in [place], Dr. Vlad contreras. -Current regimen Metoprolol succinate [...] injury -Continue follow-up with podiatry in the [facility] Dr. Sweeney -Continue intermittent prosthetics referrals for [...] deconditio rafa. He was discharged to a care home facility for PT OT. Son Nathaniel gu [...] followin. Type 2 diabetes mellitus (SNOMED CT [id number] ) 2. OBESITY, UNSP 3. Psoriasis * 4. Social and personal history finding - Lives alone. Has brother in [place]. Friends l saeid. 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 5. History of adenomatous polyp of colon - Last c-scope 05/09/15 at [place]. Two small polyp s. - 5 year follow up if appropriate. 6. Elevated PSA - follows with urology at [place] - with BPH on terazosin - February 2021: TURP at [place] 7. Chronic kidney disease stage 3 8. Diastolic heart failure - w/ HTN and dyslipidemia 9. Chronic atrial fibrillation - metoprolol and rivaroxaban 10. history of hospitalization - January 2021: Bacteremia secondary to urinary ou tflow obstruction from BPH - underwent a TURP at [place] February 2021 11. corns and calluses - followed by podiatry in the community in [facility] 12. Gout - on allopurinol Allergies: [...] TAB TAKE ONE TABLET BY MOUTH EV DAY ACTIVE FOR DIABETES -TAKE 30 MINUTES BEFORE MEAL 9) METFORMIN HCL 1000MG TAB TAKE ONE-HALF TABLET BY ACTIVE MOUTH TWO TIMES A DAY 10) METOPROLOL SUCCINATE 200MG SA TAB TAKE ONE-H NANCY ACTIVE TABLET BY MOUTH EVERY DAY 11) [...] in left noted Gait: stable and independant /ronni/ Bill Gunter MD Physician Signed: 02/02/2022 10:46 02/02/2022 ADDENDUM STATUS: COMPLETED EDUCATION: PARTICIPANT(s): Patient Clean Catch Urine Instructed in collection of clean catch urine. Printed instructions provided and participant(s) is able to repeat t hese instructions accurately. Urinalysis sent to lab /ronni/ JENNIFER RUIZ LPN CRM SOLUTION ARCHITECT Signed: 02/02/2022 10:52 02/02/2022 ADDENDUM STATUS: COMPLETED Addendum and correction to above: Patient had a Mini-Cog assessment in the office NOT a MoCa. He scored a 2. /ronni/ Bill Gunter MD Physician Signed: 02/02/2022 16:44 Receipt Acknowledged By: 02/03/2022 11:13 /ronni/ MELVI GALVAN, PhD., A [facility] Staff Neuropsychologist 02/02/2022 ADDENDUM STATUS: COMPLETED RN team: please let pt know that his UA still appears to be clearin some infection. Given his history of chronic prostatitis, I strongly r ecommend he f/u with his urologist (Dr Moreno at [facility]) to see if additio nal antibiotic treatment or intervention is warranted /ronni/ Bill Gunter MD Physician Signed: 02/02/2022 16:46 Receipt Acknowledged By: 02/06/2022 09:37 /ronni/ ZARA DAVID, RN REGISTERED NURSE 02/06/2022 ADDENDUM STATUS: COMPLETED Attempted to contact patient regarding test resu lts. Left secure message for patient to return call related to his test resul ts. /ronni/ ZARA DAVID RN REGISTERED NURSE Signed: 02/06/2022 09:38 02/12/2022 ADDENDUM STATUS: COMPLETED B12 low and MMA high c/w B12 deficiency Rx for B12 supplement ordered for mail out. bernardo t neurology recs /ronni/ Bill Gunter MD Physician Signed: 02/12/2022 17:18 Receipt Acknowledged By: 02/13/2022 09:18 /es/ ZARA DAVID RN REGISTERED NURSE 02/13/2022 ADDENDUM STATUS: COMPLETED Attempted to contact patient regarding lab resul ts. Left secure message for patient to return call. /ronni/ ZARA DAVID RN REGISTERED NURSE Signed: 02/13/2022 09:20 03/12/2022 ADDENDUM STATUS: COMPLETED Impression: 1. Age-appropriate involutional changes. 2. No acute superimposed intracranial finding. await neurology recommendations /es/ iBll Gunter MD Physician Signed: 03/12/2022 16:52 Feb 02, 2022 09:28 INTERNAL MEDICINE OUTPATIENT NOTE: LILIAN RUIZ [facility] LOCAL TITLE: MEDICINE CLINIC NURSING NOTE STANDARD [...] ulcers, or a wound from a medical collections specialist or Patient is bed-confined or a wheelchair-user or Patient requires assistance to transfer/change position No, Skin Screen is Negative Home Abuse/Violence Screen Is your home free of abuse and violence? Yes Outpatient Nutrition Screen Body Mass Index (BMI)= 37.1 [place]: Collection DT Specimen Test Name Result Units R ef Range 09/20/2021 06:38 BLOOD HEMOGLOBIN A1C 7.8 H % 4 .0 - 6.0 [place] Hgb A1C: No data available [place] Hgb A1C: No data available Point of [...] January 09, 2022 Series: Series 4 Location: [facility] /ronni/ JENNIFER RUIZ LPN, LPN Signed: 02/02/2022 09:39 02/02/2022 ADDENDUM STATUS: COMPLETED Pneumococcal PPSV23 (Pneumovax): The patient received pneumococcal polysaccharid e vaccine PPSV23 (Pneumovax) 0.5ml IM today in Left Deltoid. Events Director: Note Lot # and Expiration Date: [id number] 11/10/22 Administered by protocol/policy Complications: None The pneumococcal polysaccharide vaccine PPSV23 (Pneumovax) VIS was given to the patient today. VIS version date Jun 17 019. /ronni/ JENNIFER RUIZ LPN, LPN Signed: 02/02/2022 10:35
--- OUTSIDE RECORDS SUMMARY | 2022-05-15 09:15 | XMS_ITS | Encounter Summary ---
:1935 Author Organization [facility] Address [address] [place] [address] Support Name Relationship Address Phone WADE LORENZO Unavailable [id number] [place] [address] WADE LORENZO Unavailable [id number] [place] [address] MARILIA MARSHALLA Unavailable [address] [facility] [place] [address] GOGEORGE, ARACELI Unavailable [address] [place] [address] Insurance Providers: All historical and current Section [...] Bales [place] Aug 19, [id number] EDDY [facility] (WNR) ADVANTAGE (WNR) 2016 8 [id number] [phone] [facility] 1 [place] M[place] Aug [id number] [address] EDDY [facility] (WNR) ADVANTAGE (WNR) 2016 8 [id number] [phone] [facility] 1 Selected Encounter This section includes [...] activities for the patient from all [place] [facility]. This section includes future appointments and future orders which are active, pending orscheduled.Future Appointments This section includes appointments that were scheduled to occur 6 months from the date of the Encounter, up to a maximum of 20 appointments. The data comes from all [place] treatment facilities. Appointment Date/Time Appointment Type Appointment Facili ty Name Feb 12, 2022 07:58 PM AMBULATORY - NONE [facility] Feb 26, 2022 07:36 PM AMBULATORY - NONE [facility] Mar 12, 2022 09:30 AM AMBULATORY - NONE [facility] Apr 02, 2022 09:00 AM AMBULATORY - PSYCHIATRY [facility] Apr 02, 2022 01:30 PM AMBULATORY - NEUROLOGY [facility] Apr 02, 2022 02:45 PM AMBULATORY - NONE [facility] Apr 26, 2022 10:00 AM AMBULATORY - PSYCHIATRY [facility] Apr 30, 2022 08:00 AM AMBULATORY - MEDICINE [facility] Apr 30, 2022 09:15 AM AMBULATORY - NONE [facility] May 01, 2022 11:06 AM AMBULATORY - NONE [facility] May 06, 2022 09:40 AM AMBULATORY - MEDICINE [facility] May 11, 2022 06:15 PM AMBULATORY - NONE [facility] Jul 23, 2022 08:00 AM AMBULATORY - NEUROLOGY [facility] Lab Results: +/- 30 days of [...] Range Comment Feb 02, 2022 11:29 AM [facility] B 12 Specim en Type: SERUM No comment enter ed. Ordering Provid er: BILL ROONEY Report Released Date/Time: Feb 02, 2022 09:56 AM Reporting Lab: [facility] [address] [facility] [address] Performing Lab: [facility] [address] [facility] [address] B 12 192 L [phone] Feb 02, 2022 11:29 AM [facility] FOLATE Specim en Type: SERUM No comment enter ed. Ordering Provid er: BILL ROONEY Report Released Date/Time: Feb 02, 2022 09:56 AM Reporting Lab: [facility] [address] [facility] [address] Performing Lab: [facility] [address] [facility] [address] FOLATE 10.6 >7.0 Feb 02, 2022 [facility] TSH W/REFLEX TO FREE Specime n Type: PLASMA 11:29 AM T4 No comment enter ed. Ordering Provid er: BILL ROONEY Report Released Date/Time: Feb 02, 2022 09:56 AM Reporting Lab: [facility] [address] [facility] [address] Performing Lab: [facility] [address] [facility] [address] TSH 1.95 0.35-4.94 Feb 02, 2022 11:29 [facility] SYPHILIS ANTIBODY Specime n Type: SERUM AM No comment enter ed. Ordering Provid er: BILL ROONEY Report Released Date/Time: Feb 02, 2022 09:56 AM Reporting Lab: [facility] [address] [facility] [address] Performing Lab: [facility] [address] [facility] [address] SYPHILIS ANTIBODY NEGATIVE Feb 02, 2022 11:29 AM [facility] IRON GROUP Specim en Type: SERUM No comment enter ed. Ordering Provid er: BILL ROONEY Report Released Date/Time: Feb 02, 2022 09:56 AM Reporting Lab: [facility] [address] [facility] [address] Performing Lab: [facility] [address] [facility] [address] IRON 67 65-175 TIBC,CALCULATED 304 250-425 FERRITIN 39.3 21.8-274.7 IRON SATURATION 22 20-50 TRANSFERRIN [phone] Feb 02, 2022 11:29 [facility] HEMOGLOBIN A1C Specimen Type: BLOOD AM No comment enter ed. Ordering Provid er: BILL ROONEY Report Released Date/Time: Feb 02, 2022 09:56 AM Reporting Lab: [facility] [address] [facility] [address] Performing Lab: [facility] [address] [facility] [address] HEMOGLOBIN A1C 8.2 H 4.0-6.0 Feb 02, 2022 11:29 [facility] HIV AG/AB SCREEN Specimen Type: SERUM AM No comment enter ed. Ordering Provid er: BILL ROONEY Report Released Date/Time: Feb 02, 2022 09:56 AM Reporting Lab: [facility] [address] [facility] [address] Performing Lab: [facility] [address] [facility] [address] HIV AG/AB SCREEN NEGATIVE NEGATIVE Feb 02, 2022 11:29 AM [facility] CBC Specim en Type: BLOOD No comment enter ed. Ordering Provid er: BILL ROONEY Report Released Date/Time: Feb 02, 2022 09:56 AM Reporting Lab: [facility] [address] [facility] [address] Performing Lab: [facility] [address] [facility] [address] WBC 9.18 4.0-11.0 RBC 4.38 L 4.6-6.2 HGB 13.1 L 13.5-17.9 HCT 40.9 L 41-54 MCV 93.4 80-100 MCH 29.9 27-33 MCHC 32.0 32.0-37.5 PLT 284 150-400 MPV 9.8 7.4-10.4 RDW 15.5 H 11.5-14.5 Feb 02, 2022 [facility] COMPREHENSIVE METABOLIC Spec imen Type: PLASMA 11:29 AM PANEL+MG No comment enter ed. Ordering Provid er: BILL ROONEY Report Released Date/Time: Feb 02, 2022 09:56 AM Reporting Lab: [facility] [address] [facility] [address] Performing Lab: [facility] [address] [facility] [address] CREATININE 1.7 H 0.7-1.2 UREA NITROGEN 20 8-26 GLUCOSE 176 H 74-100 SODIUM 137 136-145 POTASSIUM 4.2 3.5-5.1 CHLORIDE 105 98-107 CO2 22 22-29 CALCIUM 9.6 8.4-10.2 PROTEIN,TOTAL 7.1 6.0-8.3 ALBUMIN 3.9 3.5-5.2 BILIRUBIN, TOTAL 0.6 0.2-1.2 MAGNESIUM 1.7 1.6-2.6 ANION GAP 10 5-15 ALKALINE PHOSPHATASE 112 40-150 ALT/SGPT 21 <55 AST/SGOT 16 <34 CREAT EGFR(CKD-EPI) 39 L >60 Feb 02, 2022 [facility] METHYLMA ACID, QUEST Specime n Type: SERUM 11:29 AM Comment: This t est was developed and its analytical performance characteristics have been determined by [email or web address] [place], [place]. It has not been cleared or approved by the U.S . Food and Drug Administration. This assay has been validated pursuant to the CLIA regulations and is used for clinical purposes. Test Performed by [employer] [place], [place] [facility] [place], [address] [place] [address] Domenic Miller M.D., Ph.D., Director of Laboratories , CLIA [id number] Ordering Provid er: BILL ROONEY Report Released Date/Time: Feb 02, 2022 12:56 PM Reporting Lab: [facility] [address] [facility] [address] [facility] [address] Performing Lab: [address] METHYLMA ACID, QUE[place] 820 H [phone] Feb 02, 2022 10:53 AM [facility] URINALYSIS Specim en Type: URINE No comment enter ed. Ordering Provid er: BILL ROONEY Report Released Date/Time: Feb 02, 2022 09:56 AM Reporting Lab: [facility] [address] [facility] [address] Performing Lab: [facility] [address] [facility] [address] URINE COLOR LIGHT-YELLOW SPECIFIC GRAVITY 1.010 1.003-1.035 [...] tobacco-related health factors from the [facility] where the Encounter took place.Current Smoking Status This section includes the most current smoking, or tobacco-related health factor, from the [place] facility where the Encounter took place. Date/Time Current Smoking Status Comment Facility Feb 02, 2022 09:30 AM [place] US[place] [facility] Tobacco Use History This section includes a history of the smoking, or tobacco- related health factors, that were collected on or before the date of the Encounter. The data comes from the [facility] where the Encounter took place. Date/Time Smoking Status/Tobacco Use Comment Xavi velazquez Mar 22, 2021 07:45 AM [place]-TOBACCO NEVER USED [place] [facility] Oct 02, 2019 10:02 AM [place]-TOBACCO [place] USED [place] [facility] May 21, 2018 09:05 AM [place]-TO[place] USED [place] [facility] December 25, 2017 06:14 PM INPT NO TOBACCO USE IN LAST 30 DAYS [facility] Oct 01, 2017 07:34 AM LIFETIME NON-TOBACCO USER [facility] Sep 28, 2016 08:44 AM LIFETIME NON-TOBACCO USER [facility] Oct 14, 2015 07:52 AM LIFETIME NON-TOBACCO USER [facility] Oct 11, 2014 07:59 AM LIFETIME NON-TOBACCO USER [facility] January 15, 2007 07:55 AM LIFETIME NON-TOBACCO USER [facility] Advance Directives: All historical and [...] Apr 18, 2018 ADVANCE DIRECTIVE LARISSA SIGALA [facility] Apr 18, 2018 ADVANCE DIRECTIVE DISCUSSION LARISSA SIGALA [facility] December 23, 2017 CLINICAL WARNING FARHAT SCHMID [facility] May 11, 2003 ADVANCE DIRECTIVE BERT CASILLAS [facility] Encounter Notes: All associated encounter notes This section contains the clinical notes associated to the Encounter. Date/Time Encounter Note(s) Provider Source Feb 06, 2022 07:20 AM NONVA NOTE: VILLA COOLEY IS [facility] LOCAL TITLE: COMMUNITY CARE-SANDOVAL SELF PRESENTIN G CARE COORD PLAN STANDARD TITLE: NONVA NOTE DATE OF NOTE: FEB 06, 2022@07:20 ENTRY DATE: FEB 07, 2022@13:39:41 AUTHOR: VILLA COOLEY EXP COSIGNER: URGENCY: STATUS: COMPLETED COMMUNITY CARE-SANDOVAL SELF PRESENTING CARE CO ORD PLAN NOTE Has ADDENDA Emergency Notification Intake Date Presenting to the Facility: Jan Method of Contact: Notified from [place] worklist Notification ID: [id number] [facility] Referral #: [facility] Name: Hospital: [facility] Address: [address] City: [place] State: [place] Zip Code: Community Facility Point of Contact: Name: Maddy Vera F: [phone] Chief complaint: FALL Primary Diagnosis: Disposition Admitted Route of Admission: Date of Admission: Jan Admitting Diagnosis: FALL Community Care Provider: Confirm Level of Care: [place] Review /ronni/ VILLA COOLEY Air Crew Member(AOD) Signed: 02/07/2022 13:45 Receipt Acknowledged By: 02/08/2022 16:13 /ronni/ ABI GANDARA RN Utilization Management 02/08/2022 ADDENDUM STATUS: COMPLETED Faxed for records /yvette GANDARA RN Utilization Management Signed: 02/08/2022 16:16 Receipt Acknowledged By: 02/09/2022 11:33 /ronni/ DOROTHY CONTI, RN RN, BSN for ZARA DAVID 02/24/2022 ADDENDUM STATUS: COMPLETED Medical records received: 02/24/22 was seen in an outside ER on: 02/06/22 [facility] Diagnosis: Acute compression fracture Patient was seen and dischar jason a few hours ago with a compression [...] to help prevent constipation. I am his primrobby doctor and he will contact me in a couple of days with an update. He does already have follow-up s et up with me for later on in the week. Both the patient and his son were comf ortable with this discharge plan. Medical records received and sent to [facility] for im port. Please review records when imported for any need ed follow up, medication changes, and place appropriate specialty consult s. /ronni/ ARACELI CASTRO RN REGISTERED NURSE Signed: 02/24/2022 10:52 Receipt Acknowledged By: * AWAITING SIGNATURE * BILL ROONEY * AWAITING SIGNATURE * ZARA DAVID
--- OUTSIDE RECORDS SUMMARY | 2022-05-15 09:15 | XMS_ITS | Encounter Summary ---
:1935 Author Organization [facility] Address [address] [place] [address] Support Name Relationship Address Phone WADE LORENZO Unavailable [id number] [place] [address] WADE LORENZO Unavailable [address] [place] [address] JOANNA ARACELI Unavailable [address] [place] [address] ARACELI MARSHALL Unavailable [address] [place] [address] Insurance Providers: All historical and current Section [...] Bales [place] Aug 19, [id number] Kristel EDDY [facility] (WNR) ADVANTAGE (WNR) 2016 8 [id number] [phone] [facility] 1 [place] MEDICARE MCR Aug 19, [id number] 800 Kristel EDDY [facility] (WNR) ADVANTAGE (WNR) 2016 8 [id number] [phone] [facility] 1 Selected Encounter This section includes the information on record at [place] for the Encounter. Date/Time Encounter Type Encounter Description Reason Provider Source January 09, 2022 12:00 Outpatient Encounter EVENT (HISTORICAL) AM IHE Encounter Template Text not used by [place] Plan of Treatment: Future Appointments (+ 6 months) and Future Tests (+/- 45 days) The Plan of Treatment section includes future care activities for the patient from [facility] [place] [facility]. This section includes future appointments and future orders which are active, pending orscheduled.Future Appointments This section includes appointments that were scheduled to occur 6 months from the date of the Encounter, up to a maximum of 20 appointments. The data comes from all [facility]. Appointment Date/Time Appointment Type Appointment Facili ty Name Feb 02, 2022 09:30 AM AMBULATORY - MEDICINE [facility] Feb 07, 2022 01:37 PM AMBULATORY - NONE [facility] Feb 12, 2022 07:58 PM AMBULATORY - NONE [facility] Feb 26, 2022 07:36 PM AMBULATORY - NONE [facility] Mar 12, 2022 09:30 AM AMBULATORY - NONE [facility] Apr 02, 2022 09:00 AM AMBULATORY - PSYCHIATRY [facility] Apr 02, 2022 01:30 PM AMBULATORY - NEUROLOGY [facility] Apr 02, 2022 02:45 PM AMBULATORY - NONE [facility] Apr 26, 2022 10:00 AM AMBULATORY - PSYCHIATRY [facility] Apr 30, 2022 08:00 AM AMBULATORY - MEDICINE [facility] Apr 30, 2022 09:15 AM AMBULATORY - NONE [facility] May 01, 2022 11:06 AM AMBULATORY - NONE [facility] May 06, 2022 09:40 AM AMBULATORY - MEDICINE [facility] May 11, 2022 06:15 PM AMBULATORY - NONE [facility] Active, Pending, and Scheduled Orders This section includes a listing of several types of active, pending, and scheduled orders, including clinic medications orders, diagnostic test orders, procedure orders and consult orders; where the start date of the order is 45 days before the date of the Encounter or 45 days after the date of the Encounter. The data comes from all [facility]. Test Date/Time Test Type Test Details Facility Name December 19, 2021 12:00 AM Laboratory - Chemistry BASIC METABOLIC [facility] Order PANEL+MG PLASMA SP ONCE December 19, 2021 12:00 AM Laboratory - Chemistry HEMOGLOBIN A1C BLOO D [facility] Order SP Lab Results: +/- 30 days of the encounter This section includes the Chemistry and Hematology Lab Results on record with [place] for the patient. Radiology Reports and Pathology Reports are provided separately, in subsequent sections.Lab Results This section contains the Chemistry/Hematology Results that were resulted 30 days before or 30 daysafter the date of the Encounter. Date/Time Source Result Type Result - Unit Interpretation Reference Range Comment Feb 02, 2022 11:29 AM [facility] B 12 Specim en Type: SERUM No comment enter ed. Ordering Provid er: BILL ROONEY Report Released Date/Time: Feb 02, 2022 09:56 AM Reporting Lab: [facility] [address] [facility] [address] Performing Lab: [facility] [address] [facility] [address] B 12 192 L [phone] Feb 02, 2022 11:29 AM [facility] FOLATE Specim en Type: SERUM No comment enter ed. Ordering Provid er: BILL ROONEY Report Released Date/Time: Feb 02, 2022 09:56 AM Reporting Lab: [facility] [address] [facility] [address] Performing Lab: [facility] [address] [facility] [address] FOLATE 10.6 >7.0 Feb 02, 2022 11:29 AM [facility] IRON GROUP Specim en Type: SERUM No comment enter ed. Ordering Provid er: BILL ROONEY Report Released Date/Time: Feb 02, 2022 09:56 AM Reporting Lab: [facility] [address] [facility] [address] Performing Lab: [facility] [address] [facility] [address] IRON 67 65-175 TIBC,CALCULATED 304 250-425 FERRITIN 39.3 21.8-274.7 IRON SATURATION 22 20-50 TRANSFERRIN [phone] Feb 02, 2022 [facility] TSH W/REFLEX TO FREE Specime n Type: PLASMA 11:29 AM T4 No comment enter ed. Ordering Provid er: BILL ROONEY Report Released Date/Time: Feb 02, 2022 09:56 AM Reporting Lab: [facility] [address] [facility] [address] Performing Lab: [facility] [address] [facility] [address] TSH 1.95 0.35-4.94 Feb 02, 2022 11:29 [facility] SYPHILIS ANTIBODY Specime n Type: SERUM AM No comment enter ed. Ordering Provid er: BILL ROONEY Report Released Date/Time: Feb 02, 2022 09:56 AM Reporting Lab: [facility] [address] [facility] [address] Performing Lab: [facility] [address] [facility] [address] SYPHILIS ANTIBODY NEGATIVE Feb 02, 2022 11:29 [facility] HIV AG/AB SCREEN Specimen Type: SERUM AM No comment enter ed. Ordering Provid er: BILL ROONEY Report Released Date/Time: Feb 02, 2022 09:56 AM Reporting Lab: [facility] [address] [facility] [address] Performing Lab: [facility] [address] [facility] [address] HIV AG/AB SCREEN NEGATIVE NEGATIVE Feb 02, 2022 11:29 [facility] HEMOGLOBIN A1C Specimen Type: BLOOD AM No comment enter ed. Ordering Provid er: BILL ROONEY Report Released Date/Time: Feb 02, 2022 09:56 AM Reporting Lab: [facility] [address] [facility] [address] Performing Lab: [facility] [address] [facility] [address] HEMOGLOBIN A1C 8.2 H 4.0-6.0 Feb 02, 2022 11:29 AM [facility] CBC Specim en Type: BLOOD No comment enter ed. Ordering Provid er: BILL ROONEY Report Released Date/Time: Feb 02, 2022 09:56 AM Reporting Lab: [facility] [address] [facility] [address] Performing Lab: [facility] [address] [facility] [address] WBC 9.18 4.0-11.0 RBC 4.38 L 4.6-6.2 HGB 13.1 L 13.5-17.9 HCT 40.9 L 41-54 MCV 93.4 80-100 MCH 29.9 27-33 MCHC 32.0 32.0-37.5 PLT 284 150-400 MPV 9.8 7.4-10.4 RDW 15.5 H 11.5-14.5 Feb 02, 2022 [facility] COMPREHENSIVE METABOLIC Spec imen Type: PLASMA 11:29 AM PANEL+MG No comment enter ed. Ordering Provid er: BILL ROONEY Report Released Date/Time: Feb 02, 2022 09:56 AM Reporting Lab: [facility] [address] [facility] [address] Performing Lab: [facility] [address] [facility] [address] CREATININE 1.7 H 0.7-1.2 UREA NITROGEN 20 8-26 GLUCOSE 176 H 74-100 SODIUM 137 136-145 POTASSIUM 4.2 3.5-5.1 CHLORIDE 105 98-107 CO2 22 22-29 CALCIUM 9.6 8.4-10.2 PROTEIN,TOTAL 7.1 6.0-8.3 ALBUMIN 3.9 3.5-5.2 BILIRUBIN, TOTAL 0.6 0.2-1.2 MAGNESIUM 1.7 1.6-2.6 ANION GAP 10 5-15 ALKALINE PHOSPHATASE 112 40-150 ALT/SGPT 21 <55 AST/SGOT 16 <34 CREAT EGFR(CKD-EPI) 39 L >60 Feb 02, 2022 [facility] METHYLMA ACID, QUEST Specime n Type: SERUM 11:29 AM Comment: This t est was developed and its analytical performance characteristics have been determined by [employer] [place], [place]. It has not been cleared or approved by the U.S . Food and Drug Administration. This assay has been validated pursuant to the CLIA regulations and is used for clinical purposes. Test Performed by [facility] [facility], [employer] [facility], [address] [place] [address] Domenic Miller M.D., Ph.D., Director of Laboratories , CLIA [id number] Ordering Provid er: BILL ROONEY Report Released Date/Time: Feb 02, 2022 12:56 PM Reporting [facility] [address] Performing Lab: [address] METHYLMA ACID, [place] 820 H [phone] Feb 02, 2022 10:53 AM [facility] URINALYSIS Specim en Type: URINE No comment enter ed. Ordering Provid er: BILL ROONEY Report Released Date/Time: Feb 02, 2022 09:56 AM Reporting Lab: [facility] [address] [facility] [address] Performing Lab: [facility] [address] [facility] [address] URINE COLOR LIGHT-YELLOW SPECIFIC GRAVITY 1.010 1.003-1.035 [...] smoking and tobacco-related health factors from the [place] facility where the Encounter took place.Current Smoking Status This section includes the most current smoking, or tobacco-related health factor, from the [place] facility where the Encounter took place. Date/Time Current Smoking Status Comment Facility Mar 22, 2021 07:45 AM [place]-TOBACCO NEVER USED [facility] Tobacco Use History This section includes a history of the smoking, or tobacco- related health factors, that were collected on or before the date of the Encounter. The data comes from the [place] facility where the Encounter took place. Date/Time Smoking Status/Tobacco Use Comment [facility] Oct 02, 2019 10:02 AM [place]-TOBACCO [place] USED [place] [facility] May 21, 2018 09:05 AM [place]-TO[place]ACCO [place] USED [place] [facility] December 25, 2017 06:14 PM INPT NO TOBACCO USE IN LAST 30 DAYS [facility] Oct 01, 2017 07:34 AM LIFETIME NON-TOBACCO USER [facility] Sep 28, 2016 08:44 AM LIFETIME NON-TOBACCO USER [facility] Oct 14, 2015 07:52 AM LIFETIME NON-TOBACCO USER [facility] Oct 11, 2014 07:59 AM LIFETIME NON-TOBACCO USER [facility] January 15, 2007 07:55 AM LIFETIME NON-TOBACCO USER [facility] Advance Directives: All historical and current Section Date Range: From patient's date of to the date document was created. This section includes ALL of a patient's completed or amended [place] Advance and Rescinded Directives. The entries below indicate that a directive exists for the patient, but an actual copy is not included with this document. The data comes from all [place] facilities. Date Advance Directives Provider Source Apr 18, 2018 ADVANCE DIRECTIVE LARISSA SIGALA [facility] Apr 18, 2018 ADVANCE DIRECTIVE DISCUSSION LARISSA SIGALA [facility] December 23, 2017 CLINICAL WARNING FARHAT SCHMID [facility] May 11, 2003 ADVANCE DIRECTIVE BERT CASILLAS [facility]
--- OUTSIDE RECORDS SUMMARY | 2022-05-15 09:16 | XMS_ITS | Encounter Summary ---
:1935 Author Organization [facility] Address [address] [place] [address] Support Name Relationship Address Phone WADE LORENZO Unavailable [id number] [place] [address] WADE LORENZO Unavailable [id number] [place] [address] ARACELI MARSHALL Unavailable [address] [facility] [place] [address] ARACELI MARSHALL Unavailable [address] [place] [address] Insurance Providers: All historical and current Section [...] [place] Aug 19, [id number] Krist[address] ED[facility] (WNR) ADVANTAGE (WNR) 2016 8 [id number] [phone] [facility] [place] M[place] Aug [id number] [address] ED[address] [facility] (WNR) ADVANTAGE (WNR) 2016 8 [id number] [phone] [facility] 1 Selected Encounter This section includes the information on record at [place] for the Encounter. Date/Time Encounter Type Encounter Reason Provider Source Description Feb 12, 2022 07:58 Outpatient ADMIN PAT ACTIVTIES ARACELI CASTRO PM Encounter (MASNONCT) IHE Encounter Template Text not used by [place] Plan of Treatment: Future Appointments (+ 6 months) and Future Tests (+/- 45 days) The Plan of Treatment section includes future care activities for the patient from all [place] [facility]. This section includes future appointments and future orders which are active, pending orscheduled.Future Appointments This section includes appointments that were scheduled to occur 6 months from the date of the Encounter, up to a maximum of 20 appointments. The data comes from all [place] treatment facilities. Appointment Date/Time Appointment Type Appointment Facili ty Name Feb 26, 2022 07:36 PM AMBULATORY - NONE [facility] Mar 12, 2022 09:30 AM AMBULATORY - NONE [facility] Apr 02, 2022 09:00 AM AMBULATORY - PSYCHIATRY [facility] Apr 02, 2022 01:30 PM AMBULATORY - NEUROLOGY [facility] Apr 02, 2022 02:45 PM AMBULATORY - NONE [facility] Apr 26, 2022 10:00 AM AMBULATORY - PSYCHIATRY [facility] Apr 30, 2022 08:00 AM AMBULATORY - MEDICINE [facility] Apr 30, 2022 09:15 AM AMBULATORY - NONE [facility] May 01, 2022 11:06 AM AMBULATORY - NONE [facility] May 06, 2022 09:40 AM AMBULATORY - MEDICINE [facility] May 11, 2022 06:15 PM AMBULATORY - NONE [facility] Jul 23, 2022 08:00 AM AMBULATORY - NEUROLOGY [facility] Lab Results: +/- 30 days of the encounter This section includes the Chemistry and Hematology Lab Results on record with [place] for the patient. Radiology Reports and Pathology Reports are provided separately, in subsequent sections.Lab Results This section contains the Chemistry/Hematology Results that were resulted 30 days before or 30 daysafter the date of the Encounter. Date/Time Source Result Type Result - Unit Interpretation Reference Range Comment Feb 02, 2022 11:29 AM [facility] B 12 Specim en Type: SERUM No comment enter ed. Ordering Provid er: BILL ROONEY Report Released Date/Time: Feb 02, 2022 09:56 AM Reporting Lab: [facility] [address] [facility] [address] Performing Lab: [facility] [address] [facility] [address] B 12 192 L [phone] Feb 02, 2022 11:29 AM [facility] FOLATE Specim en Type: SERUM No comment enter ed. Ordering Provid er: BILL ROONEY Report Released Date/Time: Feb 02, 2022 09:56 AM Reporting Lab: [facility] [address] [facility] [address] Performing Lab: [facility] [address] [facility] [address] FOLATE 10.6 >7.0 Feb 02, 2022 [facility] TSH W/REFLEX TO FREE Specime n Type: PLASMA 11:29 AM T4 No comment enter ed. Ordering Provid er: BILL ROONEY Report Released Date/Time: Feb 02, 2022 09:56 AM Reporting Lab: [facility] [address] [facility] [address] Performing Lab: [facility] [address] [facility] [address] TSH 1.95 0.35-4.94 Feb 02, 2022 11:29 [facility] SYPHILIS ANTIBODY Specime n Type: SERUM AM No comment enter ed. Ordering Provid er: BILL ROONEY Report Released Date/Time: Feb 02, 2022 09:56 AM Reporting Lab: [facility] [address] [facility] [address] Performing Lab: [facility] [address] [facility] [address] SYPHILIS ANTIBODY NEGATIVE Feb 02, 2022 11:29 AM [facility] IRON GROUP Specim en Type: SERUM No comment enter ed. Ordering Provid er: BILL ROONEY Report Released Date/Time: Feb 02, 2022 09:56 AM Reporting Lab: [facility] [address] [facility] [address] Performing Lab: [facility] [address] [facility] [address] IRON 67 65-175 TIBC,CALCULATED 304 250-425 FERRITIN 39.3 21.8-274.7 IRON SATURATION 22 20-50 TRANSFERRIN [phone] Feb 02, 2022 11:29 [facility] HEMOGLOBIN A1C Specimen Type: BLOOD AM No comment enter ed. Ordering Provid er: BILL ROONEY Report Released Date/Time: Feb 02, 2022 09:56 AM Reporting Lab: [facility] [address] [facility] [address] Performing Lab: [facility] [address] [facility] [address] HEMOGLOBIN A1C 8.2 H 4.0-6.0 Feb 02, 2022 11:29 [facility] HIV AG/AB SCREEN Specimen Type: SERUM AM No comment enter ed. Ordering Provid er: BILL ROONEY Report Released Date/Time: Feb 02, 2022 09:56 AM Reporting Lab: [facility] [address] [facility] [address] Performing Lab: [facility] [address] [facility] [address] HIV AG/AB SCREEN NEGATIVE NEGATIVE Feb 02, 2022 11:29 AM [facility] CBC Specim en Type: BLOOD No comment enter ed. Ordering Provid er: BILL ROONEY Report Released Date/Time: Feb 02, 2022 09:56 AM Reporting Lab: [facility] [address] [facility] [address] Performing Lab: [facility] [address] [facility] [address] WBC 9.18 4.0-11.0 RBC 4.38 L 4.6-6.2 HGB 13.1 L 13.5-17.9 HCT 40.9 L 41-54 MCV 93.4 80-100 MCH 29.9 27-33 MCHC 32.0 32.0-37.5 PLT 284 150-400 MPV 9.8 7.4-10.4 RDW 15.5 H 11.5-14.5 Feb 02, 2022 [facility] COMPREHENSIVE METABOLIC Spec imen Type: PLASMA 11:29 AM PANEL+MG No comment enter ed. Ordering Provid er: BILL ROONEY Report Released Date/Time: Feb 02, 2022 09:56 AM Reporting Lab: [facility] [address] [facility] [address] Performing Lab: [facility] [address] [facility] [address] CREATININE 1.7 H 0.7-1.2 UREA NITROGEN 20 8-26 GLUCOSE 176 H 74-100 SODIUM 137 136-145 POTASSIUM 4.2 3.5-5.1 CHLORIDE 105 98-107 CO2 22 22-29 CALCIUM 9.6 8.4-10.2 PROTEIN,TOTAL 7.1 6.0-8.3 ALBUMIN 3.9 3.5-5.2 BILIRUBIN, TOTAL 0.6 0.2-1.2 MAGNESIUM 1.7 1.6-2.6 ANION GAP 10 5-15 ALKALINE PHOSPHATASE 112 40-150 ALT/SGPT 21 <55 AST/SGOT 16 <34 CREAT EGFR(CKD-EPI) 39 L >60 Feb 02, 2022 [facility] METHYLMA ACID, QUEST Specime n Type: SERUM 11:29 AM Comment: This t est was developed and its analytical performance characteristics have been determined by [employer] [place], [place]. It has not been cleared or approved by the U.S . Food and Drug Administration. This assay has been validated pursuant to the CLIA regulations and is used for clinical purposes. Test Performed by [facility], [employer] [facility], [address] [place] [address] Domenic Miller M.D., Ph.D., Director of Laboratories , CLIA [id number] Ordering Provid er: BILL ROONEY Report Released Date/Time: Feb 02, 2022 12:56 PM Reporting Lab: [facility] [address] [facility] [address] Performing Lab: [address] METHYLMA ACID, QUEST 820 H 87-318 Feb 02, 2022 10:53 AM [facility] URINALYSIS Specim en Type: URINE No comment enter ed. Ordering Provid er: BILL ROONEY Report Released Date/Time: Feb 02, 2022 09:56 AM Reporting Lab: [facility] [address] [facility] [address] Performing Lab: [facility] [address] [facility] [address] URINE COLOR LIGHT-YELLOW SPECIFIC GRAVITY 1.010 1.003-1.035 [...] smoking and tobacco-related health factors from the [facility] where the Encounter took place.Current Smoking Status This section includes the most current smoking, or tobacco-related health factor, from the [facility] where the Encounter took place. Date/Time Current Smoking Status Comment Facility Feb 02, 2022 09:30 AM VA-TOBACCO NEVER USED [place] [facility] Tobacco Use History This section includes a history of the smoking, or tobacco- related health factors, that were collected on or before the date of the Encounter. The data comes from the [place] facility where the Encounter took place. Date/Time [...] NO TOBACCO USE IN LAST 30 DAYS [facility] Oct 01, 2017 07:34 AM LIFETIME NON-TOBACCO USER [facility] Sep 28, 2016 08:44 AM LIFETIME NON-TOBACCO USER [facility] Oct 14, 2015 07:52 AM LIFETIME NON-TOBACCO USER [facility] Oct 11, 2014 07:59 AM LIFETIME NON-TOBACCO USER [facility] January 15, 2007 07:55 AM LIFETIME NON-TOBACCO USER [facility] Advance Directives: All historical and current Section Date Range: From patient's date of to the date document was created. This section includes ALL of a patient's completed or amended [place] Advance and Rescinded Directives. The entries below indicate that a directive exists for the patient, but an actual copy is not included with this document. The data comes from all [facility]. Date Advance Directives Provider Source Apr 18, 2018 ADVANCE DIRECTIVE LARISSA SIGALA [facility] Apr 18, 2018 ADVANCE DIRECTIVE DISCUSSION LARISSA SIGALA [facility] December 23, 2017 CLINICAL WARNING FARHAT [facility] May 11, 2003 ADVANCE DIRECTIVE BERT CASILLAS [facility] Radiology Reports: +/- 30 days of the [...] the Encounter. The data comes from all [facility] facilities. Date/Time Radiology Report Provider Source Mar 12, 2022 09:03 CT HEAD (P): BRONSON SHEPPARDKELLEY IS [facility] AM LUISANA EDDY [id number] -1935 M Ex Date: MAR 12, 2022@09:03 Req Phys: BILL ROONEY Pat Loc: [facility] PACT IRIS WH 4D (Req'g Loc Img Loc: CT IMAGING Service: Unknown (Case [id number] COMPLETE) CT HEAD/BRAIN W/O CONTRAST ( CT Detailed) CPT:55681 Reason for Study: worsening cognition Clinical History: IS NOT under investigation for COVID-19 or is COVID-19 negative Defer to radiologist for final CT protocol. Responsible provider name and phone number to n otify for critical findings if other than user placing the order a nd pager listed below: User placing orders pager: [phone] LAST 3: Collection DT Specimen Test Name [...] ESTIMATED GFR(eGF 44 L Ref: >=60 Allergies: ([facility]) SIMVASTATIN (Feb 29, 2004) CEPHALEXIN (Mar 01, 2004) Report Status: Verified Date Reported: MAR 12, 2022 Date Verified: MAR 12, 2022 Laundry Attendant E-Sig:/ES/BRONSON SHEPPARD MD Report: NONCONTRAST CT OF THE HEAD 03/12/2022 9:03 AM INDICATION: Worsening cognition TECHNIQUE: Non- enhanced axial images of the brain were obtained from the base of the skull to the vertex. COMPARISON: 12/23/2017 DOSE: DLP 856 mGy*cm FINDINGS: Scbi-rr-jxtstedw volume loss, age meghan ropriate. Mild degree [...] 2022 07:58 PM NONVA NOTE: BECCA VERONICA [facility] LOCAL TITLE: COMMUNITY CARE-SANDOVAL SELF PRESENTIN G CARE COORD PLAN STANDARD TITLE: NONVA NOTE DATE OF NOTE: FEB 11, 2022@19:58 ENTRY DATE: FEB 12, 2022@20:00:47 AUTHOR: BECCA VERONICA EXP COSIGNER: URGENCY: STATUS: COMPLETED COMMUNITY CARE-SANDOVAL SELF PRESENTING CARE CO ORD PLAN NOTE Has ADDENDA Emergency Notification Intake Date Presenting to the Facility: Jan Method of Contact: Notified from [employer] worklist Notification ID: [id number] [facility] Referral #: [facility] [place] Name: Hospital: [facility] Address: [address] City: [place] State: [place] Zip Code: [address] Phone : [facility] Point of Contact: Name: TADEO CARDOSO Chief complaint: BACK PAIN Primary Diagnosis: Disposition Discharged Date of discharge: Jan Discharge to home /ronni/ BECCA VERONICA WIRE DRAWER Signed: 02/12/2022 20:02 Receipt Acknowledged By: 02/14/2022 13:24 /es/ ARACELI CASTRO RN REGISTERED NURSE 02/14/2022 ADDENDUM STATUS: COMPLETED Records will be requested fo r this episode of care and will be uploaded to [facility] when received. /ronni/ ARACELI CASTRO RN REGISTERED NURSE Signed: 02/14/2022 13:24 Receipt Acknowledged By: 02/14/2022 13:35 /es/ ZARA DAVID RN REGISTERED NURSE 02/24/2022 ADDENDUM STATUS: COMPLETED Medical records received: 02/24/22 [place] was seen in an outside ER on: 02/11/22 No [facility] Diagnosis: Constipation I anticipate smaller dosing of magnesium citrate to aid in further bowel clean out. Needs to be on regular senna if continuing to take opiates. Hydrate. Return for marked increase in pain, fever, repea nola vomiting. Nystatin powder for this intertrigo and focus on keeping dry. Perhaps placing dry towels in folds Medical records received and sent to [facility] for im port. Please review records when imported for any need ed follow up, medication changes, and place appropriate specialty consult s. /ronni/ ARACELI CASTRO RN REGISTERED NURSE Signed: 02/24/2022 10:45 Receipt Acknowledged By: * AWAITING SIGNATURE * BILL ROONEY * AWAITING SIGNATURE * ZARA DAVID
--- OUTSIDE RECORDS SUMMARY | 2022-05-15 09:17 | XMS_ITS | Encounter Summary ---
:1935 Author Organization [facility] rs Address [address] [place] [address] Support Name Relationship Address Phone NATHANIEL LORENZO Unavailable [id number] [place] [address] NATHANIEL LORENZO Unavailable [id number] [place] [address] ARACELI MARSHALL Unavailable [address] [place] [address] GOMARILIA VAZQUEZA Unavailable [phone] [place] [address] Insurance Providers: All historical and current Section Date Range: From patient's date of to the date document was created.This section includes the names of all active insurance providers for the patient. Insurance Type of Plan Start of End of Group Member Insurance [facility] Provider Coverage Name Policy Policy Number ID Provider's Bales's Relationship Coverage Coverage Telephone Name to Policy Number Bales [place] M[place] Aug 19, [id number] Kristel EDDY [facility]LY [facility] (WNR) ADVANTAGE (WNR) 2016 8 [id number] [phone] [facility] [place] MEDICARE MCR Aug 19, [id number] Kristel EDDY [facility] (WNR) ADVANTAGE (WNR) 2017 03 [id number] [phone] [facility] 1 Selected Encounter This section includes the information on record at [place] for the Encounter. 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 Date/Time Primary/Secondary Diagnosis Name Provider Source Diagnosis Apr 02, 2022 PRIMARY Unspecified FILIBERTO DOWNS [facility] 12:58 PM dementia without HCS behavioral disturbance Plan of Treatment: Future Appointments (+ 6 months) and Future Tests (+/- 45 days) The Plan of Treatment section includes future care activities for the patient from all [place] [facility]. This section includes future appointments and future orders which are active, pending orscheduled.Future Appointments This section includes appointments that were scheduled to occur 6 months from the date of the Encounter, up to a maximum of 20 appointments. The data comes from all [facility]. Appointment Date/Time Appointment Type Appointment Facili ty Name Apr 26, 2022 10:00 AM AMBULATORY - PSYCHIATRY [facility] Apr 30, 2022 08:00 AM AMBULATORY - MEDICINE [facility] Apr 30, 2022 09:15 AM AMBULATORY - NONE [facility] May 01, 2022 11:06 AM AMBULATORY - NONE [facility] May 06, 2022 09:40 AM AMBULATORY - MEDICINE [facility] May 11, 2022 06:15 PM AMBULATORY - NONE [facility] Jul 23, 2022 08:00 AM AMBULATORY - NEUROLOGY [facility] Active, Pending, and Scheduled Orders This section includes a listing of several types of active, pending, and scheduled orders, including clinic medications orders, diagnostic test orders, procedure orders and consult orders; where the start date of the order is 45 days before the date of the Encounter or 45 days after the date of the Encounter. The data comes from all [facility]. Test Date/Time Test Type Test Details Facility Name Apr 30, 2022 08:21 Laboratory - Chemistry URINALYSIS URINE WC ON CE [facility] AM Order Apr 30, 2022 08:21 Laboratory - CULTURE & SUSCEPTIBILITY [facility] AM Microbiology Order URINE May 06, 2022 12:00 Laboratory - Blood ABO/RH - LAB BLOOD [facility] AM Bank Order May 06, 2022 10:11 Laboratory - Blood TYPE & SCREEN - LAB [facility] AM Bank Order BLOOD May 06, 2022 10:27 Pharmacy - Clinic [facility] AM Medication Order May 06, 2022 10:28 [facility] AM Infusion Order May 06, 2022 10:34 [facility] AM Infusion Order May 06, 2022 10:41 [facility] AM Infusion Order May 06, 2022 12:15 [facility] PM Medication Order May 06, 2022 01:31 [facility] PM Medication Order May 06, 2022 04:49 [facility] PM Medication Order May 07, 2022 01:00 Laboratory - CULTURE & SUSCEPTIBILITY [facility] PM Microbiology Order BLOOD WC ONCE May 11, 2022 09:07 Laboratory - CULTURE & SUSCEPTIBILITY [facility] AM Microbiology Order BLOOD WC May 11, 2022 09:07 Laboratory - CULTURE & SUSCEPTIBILITY [facility] AM Microbiology Order BLOOD WC May 11, 2022 09:38 Laboratory - Chemistry EOSINOPHIL SMEAR,URINE [facility] AM Order URINE WC ONCE May 11, 2022 09:38 Laboratory - Chemistry URINALYSIS URINE WC ON CE [facility] AM Order May 11, 2022 09:38 Laboratory - Chemistry FENA URINE WC ONCE [facility] AM Order Lab Results: +/- 30 days of [...] Range Comment Apr 30, 2022 09:17 AM [facility] CBC Specim en Type: BLOOD No comment enter ed. Ordering Provid er: BILL GUNTER Report Released Date/Time: Apr 30, 2022 08:21 AM Reporting Lab: [facility] [address] [facility] [address] Performing Lab: [facility] [address] [facility] [address] WBC 10.40 4.0-11.0 RBC 3.96 L 4.6-6.2 HGB 12.3 L 13.5-17.9 HCT 37.8 L 41-54 MCV 95.5 80-100 MCH 31.1 27-33 MCHC 32.5 32.0-37.5 PLT 286 150-400 MPV 10.1 7.4-10.4 RDW 14.6 H 11.5-14.5 Apr 30, 2022 [facility] BASIC METABOLIC Specimen Typ e: PLASMA 09:17 AM PANEL+MG No comment enter ed. Ordering Provid er: BILL GUNTER Report Released Date/Time: Apr 30, 2022 08:21 AM Reporting Lab: [facility] [address] [facility] [address] Performing Lab: [facility] [address] [facility] [address] CREATININE 1.2 0.7-1.2 UREA NITROGEN 26 8-26 GLUCOSE 140 H 70-100 SODIUM 138 136-145 POTASSIUM 3.8 3.5-5.1 CHLORIDE 107 98-107 CO2 20 L 22-29 CALCIUM 9.4 8.4-10.2 MAGNESIUM 1.7 1.6-2.6 ANION GAP 11 5-15 CREAT EGFR(CKD-EPI) 59 L >60 Apr 02, 2022 02:37 PM [facility] B 12 Specim en Type: SERUM No comment enter ed. Ordering Provid er: MADISON SOL Report Released Date/Time: Apr 02, 2022 02:05 PM Reporting Lab: [facility] [address] [facility] [address] Performing Lab: [facility] [address] [facility] [address] B [phone] Apr 02, 2022 02:37 PM [facility] AMMONIA Specim en Type: PLASMA No comment enter ed. Ordering Provid er: MADISON SOL Report Released Date/Time: Apr 02, 2022 02:05 PM Reporting Lab: [facility] [address] [facility] [address] Performing Lab: [facility] [address] [facility] [address] AMMONIA <14 <72 Apr 02, 2022 [facility] LIVER FUNCTION TESTS Specime n Type: PLASMA 02:37 PM No comment enter ed. Ordering Provid er: MADISON SOL O Report Released Date/Time: Apr 02, 2022 02:05 PM Reporting Lab: [facility] [address] [facility] [address] Performing Lab: [facility] [address] [facility] [address] BILIRUBIN, TOTAL 0.5 0.2-1.2 ALKALINE PHOSPHATASE 108 40-150 ALT/SGPT 24 <55 AST/SGOT 18 <34 GAMMA GTP 34 <64 Apr 02, 2022 [facility] METHYLMA ACID, QUEST Specime n Type: SERUM 02:37 PM Comment: This t est was developed and its analytical performance characteristics have been determined by [employer] [place], [place]. It has not been cleared or approved by the U.S . Food and Drug Administration. This assay has been validated pursuant to the CLIA regulations and is used for clinical purposes. Test Performed by [facility], [facility], [address] [place] [address] Domenic Miller M.D., Ph.D., Director of Laboratories , CLIA [id number] Ordering Provid er: MADISON SOL Report Released Date/Time: Apr 02, 2022 04:37 PM Reporting Lab: [facility] [address] [facility] [address] Performing Lab: [address] METHYLMA ACID, QUEST 406 [phone] Vital Signs: All taken on the encounter date This section contains inpatient and outpatient Vital Signs collected on the date of the Encounter. Date/Time Temperature Pulse Blood Respiratory SP02 Pain Height Weight Edvin dy Source Pressure Rate Mass Index Apr 02 123/70 18 /min 93 % 3 [place] 2021 01:22 /min mm[Hg] IS [facility] Social History: Smoking Status (Most current) and [...] 02, 2022 09:30 AM [place]-TO[place]AC[place] NEVER USED [facility] Tobacco Use History This section includes a history of the smoking, or tobacco- related health factors, that were collected on or before the date of the Encounter. The data comes from the [place] facility where the Encounter took place. Date/Time Smoking Status/Tobacco Use Comment [facility] Mar 22, 2021 07:45 AM [place] NEVER USED [place] [employer] [facility] Oct 02, 2019 10:02 AM [place] US[place] [facility] May 21, 2018 09:05 AM [place] NEVER USED [place] [employer] [facility] December 25, 2017 06:14 PM INPT NO TOBACCO USE IN LAST 30 DAYS [facility] Oct 01, 2017 07:34 AM LIFETIME NON-TOBACCO USER [facility] Sep 28, 2016 08:44 AM LIFETIME NON-TOBACCO USER [facility] Oct 14, 2015 07:52 AM LIFETIME NON-TOBACCO USER [facility] Oct 11, 2014 07:59 AM LIFETIME NON-TOBACCO USER [facility] January 15, 2007 07:55 AM LIFETIME NON-TOBACCO USER [facility] Advance Directives: All historical and [...] Apr 18, 2018 ADVANCE DIRECTIVE LARISSA SIGALA [facility] Apr 18, 2018 ADVANCE DIRECTIVE DISCUSSION [facility] December 23, 2017 CLINICAL WARNING FARHAT SCH[facility]ID [facility] May 11, 2003 ADVANCE DIRECTIVE BERT CASILLAS [facility] Radiology Reports: +/- 30 days [...] the Encounter. The data comes from all [place] treatment facilities. Date/Time Radiology Report Provider Source Mar 12, 2022 09:03 CT HEAD (P[facility] NELY EDDYNETH Miguel [id number] -[id number] M Exm Date: MAR 12, 2022@09:03 Req Phys: BILL GUNTER Pat Loc: MSP PACT IRIS WH 4D (Req'g Loc Img Loc: CT IMAGING Service: Unknown (Case [id number] COMPLETE) CT HEAD/BRAIN W/O CONTRAST ( CT Detailed) CPT:49184 Reason for Study: worsening cognition Clinical History: Matinicus IS NOT under investigation for COVID-19 or is COVID-19 negative Defer to radiologist for final CT protocol. Responsible provider name and phone number to n otify for critical findings if other than user placing the order a nd pager listed below: User placing orders pager: [phone] LAST 3: Collection DT Specimen Test Name [...] ESTIMATED GFR(eGF 44 L Ref: >=60 Allergies: ([place] only) SIMVASTATIN (Feb 29, 2004) CEPHALEXIN (Mar 01, 2004) Report Status: Verified Date Reported: MAR 12, 2022 Date Verified: MAR 12, 2022 [employer]inder E-Sig:/ES/BRONSON SHEPPARD MD Report: NONCONTRAST CT OF THE HEAD 03/12/2022 9:03 AM INDICATION: Worsening cognition TECHNIQUE: Non- enhanced axial images of the brain were obtained from the base of the skull to the vertex. COMPARISON: 12/23/2017 DOSE: DLP 856 mGy*cm FINDINGS: Egvz-ws-ybhflxdy volume loss, age meghan ropriate. Mild degree [...] 04, 2022 10:00 AM TELEHEALTH NOTE: FILIBERTO DOWNSKELLEY IS [facility] LOCAL TITLE: TELEHEALTH TECHNOLOGY SCREENING (T TS)-HISTORICAL STANDARD TITLE: TELEHEALTH NOTE DATE OF NOTE: APR 04, 2022@10:00 ENTRY DATE: APR 04, 2022@10:00:18 AUTHOR: FILIBERTO DOWNS EXP COSIGNER: URGENCY: STATUS: COMPLETED [place]icus agrees to [place] Video Connect (VVC) and has capability and technology to complete a VVC visit, but needs a test call. E-mail: [email or web address] Device(s) they can use: Desktop/Laptop Additional Information: Special information about connecting to VV: Marilia bustamante is the 's niece who will be facilitating the techology and participa jesúsg in the upcoming VVC appointment. DELMAR signed for Araceli on 04/02 and sen t to scanning. /yvette DOWNS, PHD, LP, ABPP STAFF NEUROPSYCHOLIGST Signed: 04/04/2022 10:02 Apr 04, 2022 08:28 AM REPORT OF CONTACT: FILIBERTO DOWNS ALEXIS [facility] LOCAL TITLE: PATIENT CONTACT NOTE STANDARD TITLE: REPORT OF CONTACT DATE OF NOTE: APR 04, 2022@08:28 ENTRY DATE: APR 04, 2022@08:28:47 AUTHOR: FILIBERTO DOWNS EXP COSIGNER: URGENCY: STATUS: COMPLETED PATIENT CONTACT NOTE Has ADDENDA Patient contact Name of Matinicus: LUISANA EDDY Name/Relationship of Contact if other than Veter an: Nathaniel Lorenzo, caregiver Date & Time of Contact: Mar@08:29 Type of Contact: Telephone Reason for Contact: Received voice message from Nathaniel Lorenzo, who a sked who he should contact about requesting that the 's Xare lto, prescribed by his current [facility] facility, be prescri bed through the [place]. Alerting Matinicus's primary care team to this request. /yevtte DOWNS, PHD, LP, ABPP STAFF NEUROPSYCHOLIGST Signed: 04/04/2022 08:31 Receipt Acknowledged By: 04/04/2022 08:54 /es/ ZARA DAVID RN REGISTERED NURSE 04/04/2022 ADDENDUM STATUS: COMPLETED Talked to Matinicus's caregive r Nathaniel to alert him to contacting the Matinicus's PC team ( signed a DELMAR form for Nathaniel on 03/19; sent to scanning). Nathaniel stated that the medication he was wondering abou t was Zoloft, not Xarelto. He also reported that he is trying to re-order kaelyn ral other medications (e.g., atorvastatin) and having dif ficulty doing this. He requested that the 's primary care team contact felecia lawson directly ([phone]), as he manages all of the 's medications, which are delivered to [facility]'s house. /ronni/ FILIBERTO DOWNS, PHD, LP, ABPP STAFF NEUROPSYCHOLIGST Signed: 04/04/2022 08:39 Receipt Acknowledged By: * AWAITING SIGNATURE * ARCELIABILL MCKEON Alecia 04/04/2022 09:13 /es/ ZARA DAVID RN REGISTERED NURSE 04/04/2022 ADDENDUM STATUS: COMPLETED Spoke with Nathaniel on the phon e. Medication renewals and refill request completed and set up for signature and for pharmacy to get ready to mail. Waiting for provider approval. /ronni/ ZARA DAVID RN REGISTERED NURSE Signed: 04/04/2022 09:15 Apr 02, 2022 09:00 AM MENTAL HEALTH CONSULT: FILIBERTO DOWNS [facility] LOCAL TITLE: MH NEUROPSYCHOLOGY CONSULT STANDARD TITLE: MENTAL HEALTH CONSULT DATE OF NOTE: APR 02, 2022@09:00 ENTRY DATE: APR 02, 2022@12:56:26 AUTHOR: FILIBERTO DOWNS EXP COSIGNER: URGENCY: STATUS: COMPLETED NEUROPSYCHOLOGY CONSULT [...] been scheduled for 04/26 at 10am via [facility] per the Matinicus's request. SAFETY ASSESSMENT: The Matinicus explicitly denied suicidal ideation, intent, or plan. Risk factors: race, gender, age, complex medical status, anxiety Protective factors: engaged in healthcare, future- and goal-oriented, excellent support from niece and neighbor Risk assessment: Based on cu rrent risk and protective factors, acute and chronic risk for suicide is low /es/ FILIBERTO DOWNS, PHD, LP, ABPP STAFF NEUROPSYCHOLIGST Signed: 04/02/2022 12:58 04/09/2022 ADDENDUM STATUS: COMPLETED NEUROPSYCHOLOGICAL EVALUATION Patient Name: Luisana Eddy ([id number]) Referral source: Bill Gunter MD (Primary Care) Date of Evaluation: 04.02.22 Neuropsychologist: Filiberto Downs, Ph.D., ABPP REFERRAL QUESTION: Mr. Eddy is an 86 year-old , right-handed, single, white male, referred for neuropsychological evaluation due to report of cognitive decline in relation to recen t hospitalizations and concerns from his caregivers. 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 The Matinicus's history is complex and they are encouraged [...] encouraged for stroke prev ention. c. The Matinicus is encouraged to continue to disc uss [...] this persist. 2. MENTAL HEALTH a. The Matinicus is encouraged to follow-up with h is [...] notes if needed, check in with the Matinicus frequently to gauge his understanding, and summarize [...] to bring a supportive person to medi kinza appointments to assist with recall of information discussed 4. FUNCTIONAL SUPPORT: The is currently well-supported in his [facility] facility and by family and colin alejo. They are encouraged to discuss most appropriate myles ing environment and need for additional support with Primary Care and his facility providers to explo re appropriate resources as needed. 5. ADDITIONAL SUPPORT: Given the Matinicus's cogni tive disorder and significant caregiving respo nsibilities of Nathaniel and Araceli, they may benefit from ideas and support offered through [place] [employer] and supportive community organizations such [...] assist with monito ring cognitive and functional foreign exchange student coordinator time, and to provide updated recomme ndations. Feedback is scheduled for 04/26 at 10am vi a [facility] per the Matinicus's request. Thank you for the opportunity to c onsult with this patient. If further information is needed, please contact the office at . - EXTENDED REPORT - Total professional time, including clinical inte rview (1 hr), testing and scoring (3 hrs), chart revie w, test interpretation, and report writing (3 hrs) = 7 hours. Evaluation was completed via hybrid mod el of svklwm-rv-ubddku telehealth and jfrx-yf-tlht testing with PPE. Mr. Eddy provided verbal consent for neuropsy chological evaluation and treatment following the provision of inf ormation about confidentiality and its limitations. Sources of info rmation: clinical interview with the patient and his caregivers Nathaniel and Araceli, and review of the CPR S medical record. BEHAVIORAL OBSERVATIONS: The Matinicus arrived on time with his caregivers to the appointment. He was dressed appropriately for the weather. Gait was not observed as he used a wheelchair. Bilateral action tremor in his hands was observed during testing, and resting tremor was observed in his left index finger during testing. Hearing and vision were adequate for e evaluation (no glasses or hearing aids). [...] repeated questions, and variability in memory. Miguel che has started writing down appointment details and reported that Nathaniel and Araceli now assist with organization/planning tasks. They reported some fluctuation in cognitive symptoms (better at certain times of day) which the Matinicus believes is related to degree of medication adherence (he is current ly depended on staff at his [facility] facility to administer medication). They wondered if current use of oxycodone for back pain c ould contribute to cognitive symptoms. Regarding any behavioral change, Nathaniel rep orted that the is less outgoing and appears more subdued and quieter. They denied co ncerns about his judgment though noted he has never been a patient person. Activities of Daily Living: The Matinicus has resi ded in a [facility] facility since February 2022. Hi s caregiver's son was living with him [...] he wants to do many things himself. assisted staff manages medication administration, meals, and cleaning, while Nathaniel manages medication refills a nd Araceli assists with financial reporting director. Nathaniel and Araceli took on these responsib ilities in December; they stated that they were unsure if these tasks were difficult in the past but he ap peared to need help after his December hospitalization. Nathaniel yanes as also been assisting with updates to the 's home such as installing railings and renovating the bathroom. He last drove about a year ago. The Matinicus typically spends h is time reading the paper, walking, and watching sports and movies on TV. Physical symptoms: The Matinicus reported improving back pain since his fall [...] Psychological symptoms: When asked about mood, the Matinicus reported feeling down on some days, especially [...] products, or illicit substances. SAFETY ASSESSMENT: The Matinicus explicitly denied suicidal ideation, intent, or plan. [...] (December 2021), additional 2-3 hospitalizati ons in [id number] for UTI, and fall with compression fracture [...] He g raduated from high school. The served in the [employer] in the [employer] for 2 years. He wor ked in [employer] for most of his career. The has never marrie d and does not have children. He currently lives in a long-term care facility in [place], [place]. PREVIOUS TESTING: MiniCog (02/02): /. TESTS ADMINISTERED: Empirically validated merit health natchezd ed and standalone measures of performance validity, [facility] ed [employer] Test of Premorbid Functioning (TOPF), [place] Naming Test (BNT), CLOX, Ashley-Ka plan Executive [...] evaluation was completed via hybrid model of syyjyr-ik-hq fice telehealth and nyia-em-pncn testing using face masks (examiner and Matinicus) and face sh ield (examiner). This assessment [...] provide a reasonable rep resentation of the Matinicus's daily cognitive functioning. Premorbid Intellectual Functioning RS [...] cognitive efficiency were within expec tations. The 's current COGNITIVE functional status is difficult to estim ate in the context of physical and cognitive changes though per interview and rec ord review there appears to be evidence of increased functional dependence. They reported periods of low mood and anxiety on interview though he denied significant symptoms of depression and anxiety on self-report questionnaires. /ronni/ FILIBERTO DOWNS, PHD, LP, ABPP STAFF NEUROPSYCHOLIGST Signed: 04/09/2022 15:21 Receipt Acknowledged By: * AWAITING SIGNATURE * BILL GUNTER
--- OUTSIDE RECORDS SUMMARY | 2022-05-15 09:17 | XMS_ITS | Encounter Summary ---
:1935 Author Organization [facility] Address [address] [place] [address] Support Name Relationship Address Phone WADE LORENZO Unavailable [address] [place] [address] WADE LORENZO Unavailable [address] [place] [address] ARACELI MARSHALL Unavailable [address] [facility] [place] [address] ARACELI MARSHALL Unavailable [address] [place] [address] Insurance Providers: All historical and current Section [...] Bales [place] M[place] Aug 19, [id number] [address] [place] [facility]WNR) 2016 8 [id number] [phone] [facility] 1 [place] MED[place] M[place] Aug 19, [id number] 800 [address] [place] [facility]WNR) 2016 8 [id number] [phone] [facility] 1 Selected Encounter This section includes the information on record at [place] for the Encounter. Date/Time Encounter Type Encounter Reason Provider Source Description Feb 26, 2022 07:36 Outpatient ADMIN PAT ACTIVTIES ARACELI CASTRO PM Encounter (MASNONCT) IHE Encounter Template Text not used by HI Plan of Treatment: Future Appointments (+ 6 months) and Future Tests (+/- 45 days) The Plan of Treatment section includes future care activities for the patient from all [facility]. This section includes future appointments [...] 30, 2022 08:00 AM AMBULATORY - MEDICINE [facility] Apr 30, 2022 09:15 AM AMBULATORY - NONE [facility] May 01, 2022 11:06 AM AMBULATORY - NONE [facility] May 06, 2022 09:40 AM AMBULATORY - MEDICINE [facility] May 11, 2022 06:15 PM AMBULATORY - NONE [facility] Jul 23, 2022 08:00 AM AMBULATORY - NEUROLOGY [facility] Lab Results: +/- 30 days of the encounter This section includes the Chemistry and Hematology Lab Results on record with [place] for the patient. Radiology Reports and Pathology [...] Lab: [facility] [address] [facility] [address] Performing Lab: [facility] [address] [facility] [address] B 12 192 L [phone] Feb 02, 2022 11:29 AM [facility] FOLATE Specim en Type: SERUM No comment enter ed. Ordering Provid er: BILL ROONEY Report Released Date/Time: Feb 02, 2022 09:56 AM Reporting Lab: [facility] [address] [facility] [address] Performing Lab: [facility] [address] [facility] [address] FOLATE 10.6 >7.0 Feb 02, 2022 [facility] TSH W/REFLEX TO FREE Specime n Type: PLASMA 11:29 AM T4 No comment enter ed. Ordering Provid er: BILL ROONEY Report Released Date/Time: Feb 02, 2022 09:56 AM Reporting Lab: [facility] [address] [facility] [address] Performing Lab: [facility] [address] [facility] [address] TSH 1.95 0.35-4.94 Feb 02, 2022 11:29 [facility] SYPHILIS ANTIBODY Specime n Type: SERUM AM No comment enter ed. Ordering Provid er: BILL ROONEY Report Released Date/Time: Feb 02, 2022 09:56 AM Reporting Lab: [facility] [address] [facility] [address] Performing Lab: [facility] [address] [facility] [address] SYPHILIS ANTIBODY NEGATIVE Feb 02, 2022 11:29 AM [facility] IRON GROUP Specim en Type: SERUM No comment enter ed. Ordering Provid er: BILL ROONEY Report Released Date/Time: Feb 02, 2022 09:56 AM Reporting Lab: [facility] [address] [facility] [address] Performing Lab: [facility] [address] [facility] [address] IRON 67 65-175 TIBC,CALCULATED 304 250-425 FERRITIN 39.3 21.8-274.7 IRON SATURATION 22 20-50 TRANSFERRIN 243 163-382 Feb 02, 2022 11:29 [facility] HEMOGLOBIN A1C Specimen Type: BLOOD AM No comment enter ed. Ordering Provid er: BILL ROONEY Report Released Date/Time: Feb 02, 2022 09:56 AM Reporting Lab: [facility] [address] [facility] [address] Performing Lab: [facility] [address] [facility] [address] HEMOGLOBIN A1C 8.2 H 4.0-6.0 Feb 02, 2022 11:29 [facility] HIV AG/AB SCREEN Specimen Type: SERUM AM No comment enter ed. Ordering Provid er: BILL ROONEY Report Released Date/Time: Feb 02, 2022 09:56 AM Reporting Lab: [facility] [address] [facility] [address] Performing Lab: [facility] [address] [facility] [address] HIV AG/AB SCREEN NEGATIVE NEGATIVE Feb 02, 2022 11:29 AM [facility] CBC Specim en Type: BLOOD No comment enter ed. Ordering Provid er: BILL ROONEY Report Released Date/Time: Feb 02, 2022 09:56 AM Reporting Lab: [facility] [address] [facility] [address] Performing Lab: [facility] [address] [address] WBC 9.18 4.0-11.0 RBC 4.38 L 4.6-6.2 [...] AM Reporting Lab: [facility] [address] [facility] [address] Performing Lab: [facility] ONE [facility] [address] CREATININE 1.7 H 0.7-1.2 UREA NITROGEN 20 [...] analytical performance characteristics have been determined by [employer] [place], [place]. It has not been cleared or approved by the U.S . Food and Drug Administration. This assay has been validated pursuant to the CLIA regulations and is used for clinical purposes. Test Performed by [facility], [employer] [facility], [address] [place] [address] Domenic Miller M.D., Ph.D., Director of Laboratories , CLIA [id number] Ordering Provid er: BILL ROONEY Report Released Date/Time: Feb 02, 2022 12:56 PM Reporting Lab: [facility] [address] Performing Lab: [address] METHYLMA ACID, [place] 820 H [phone] Feb 02, 2022 10:53 AM [facility] URINALYSIS Specim en Type: URINE No comment enter ed. Ordering Provid er: BILL ROONEY Report Released Date/Time: Feb 02, 2022 09:56 AM Reporting Lab: [facility] [address] [facility] [address] Performing Lab: [facility] [address] URINE COLOR LIGHT-YELLOW SPECIFIC GRAVITY 1.010 1.003-1.035 [...] smoking and tobacco-related health factors from the [place] facility where the Encounter took place.Current Smoking Status This section includes the most current smoking, or tobacco-related health factor, from the [place] facility where the Encounter took place. Date/Time Current Smoking Status Comment Facility Feb 02, 2022 09:30 AM [place]-TOBACCO NEVER USED [place] [facility] Tobacco Use History This section includes a history of the smoking, or tobacco- related health factors, that were collected on or before the date of the Encounter. The data comes from the [place] facility where the Encounter took place. Date/Time Smoking Status/Tobacco Use Comment Xavi chnael Mar 22, 2021 07:45 AM [place]-TOBACCO NEVER USED [place] [facility] Oct 02, 2019 10:02 AM [place]-TOBACCO [place] USED [place] [facility] May 21, 2018 09:05 AM [place]-TOBACCO NEVER USED [place] [facility] [...] 18, 2018 ADVANCE DIRECTIVE DISCUSSION LARISSA SIGALA [facility] December 23, 2017 CLINICAL WARNING FARHAT SCHMID [facility] May 11, 2003 ADVANCE DIRECTIVE BERT CASILLAS [facility] Radiology Reports: +/- 30 days of [...] data comes from all [place] treatment facilities. Date/Time Radiology Report Provider Source Mar 12, 2022 09:03 CT HEAD (P): BRONSON SHEPPARD IS [facility] AM LUISANA EDDY [id number] -1935 M Exm Date: MAR 12, 2022@09:03 Req Phys: BILL ROONEY Pat Loc: [facility]SP PACT IRIS WH 4D (Req'g Loc Img Loc: CT IMAGING Service: Unknown (Case [id number] COMPLETE) CT HEAD/BRAIN W/O CONTRAST ( CT Detailed) CPT:44046 Reason for Study: worsening cognition Clinical History: Jackpot IS NOT under investigation for COVID-19 or is COVID-19 negative Defer to radiologist for final CT protocol. Responsible provider name and phone number to n otify for critical findings if other than user placing the order a nd pager listed below: User placing orders pager: [phone] LAST 3: Collection DT Specimen Test Name [...] ESTIMATED GFR(eGF 44 L Ref: >=60 Allergies: ([facility]) SIMVASTATIN (Feb 29, 2004) CEPHALEXIN (Mar 01, 2004) Report Status: Verified Date Reported: MAR 12, 2022 Date Verified: MAR 12, 2022 Single Ending Machine Operator E-Sig:/ES/BRONSON SHEPPARD MD Report: NONCONTRAST CT OF THE HEAD 03/12/2022 9:03 AM INDICATION: Worsening cognition TECHNIQUE: Non- enhanced axial images of the brain were obtained from the base of the skull to the vertex. COMPARISON: 12/23/2017 DOSE: DLP 856 mGy*cm FINDINGS: Ybev-db-yctivdvx volume loss, age meghan ropriate. Mild degree [...] 23, 2022 07:37 PM NONVA NOTE: [facility] LOCAL TITLE: COMMUNITY CARE-SANDOVAL SELF PRESENTIN G CARE COORD PLAN STANDARD TITLE: NONVA NOTE DATE OF NOTE: FEB 23, 2022@19:37 ENTRY DATE: FEB 26, 2022@19:37:40 AUTHOR: MICHEL TANG EXP COSIGNER: URGENCY: STATUS: COMPLETED COMMUNITY CARE-SANDOVAL SELF PRESENTING CARE CO ORD PLAN NOTE Has ADDENDA Emergency Notification Intake Date Presenting to the Facility: Feb Method of Contact: Notified from retickr worklist Notification ID: [id number] [facility] Referral #: [facility] Name: Hospital: [place], [place] Address: [address] City: [place] State: [place] Zip Code: Phone : [facility] Point of Contact: Name: Maddy Vera Chief complaint: back pain/injury Primary Diagnosis: Disposition Admitted Route of Admission: Date of Admission: Feb Admitting Diagnosis: back pain/injury Community Care Provider: Confirm Level of Care: 02/26/2022 4:17:01 PM CDT Agustina Abdul [address] [facility]. 1703 EMAIL SENT 02/26/2022 4:13:58 PM CDT Agustina Abdul [facility] Delroy Crowell` /es/ MICHEL MONCADA, LENGTH CONTROL TESTER Signed: 02/26/2022 19:41 Receipt Acknowledged By: 02/28/2022 14:36 /ronni/ ARACELI CASTRO RN REGISTERED NURSE 03/22/2022 ADDENDUM STATUS: COMPLETED Records requested for this episode of care x3, b ut not received. This [facility] RN will step out at this time, as I am unable to pr ocess further. /ronni/ ARACELI CASTRO RN REGISTERED NURSE Signed: 03/22/2022 16:33
--- OUTSIDE RECORDS SUMMARY | 2022-05-15 09:17 | XMS_ITS | Encounter Summary ---
:1935 Author Organization Department [facility] Address [address] [place] [address] Support Name Relationship Address Phone WADE LORENZO Unavailable [address] [place] [address] WADE LORENZO Unavailable [address] [place] [address] ARACELI MARSHALL Unavailable [address] [place] [address] GOMARILIA VAZQUEZA Unavailable [address] [place] [address] Insurance Providers: All historical and current Section Date Range: From patient's date of to the date document was created.This section includes the names of all active insurance providers for the patient. Insurance Type of Plan Start of End of Group Member [facility] Coverage Name Policy Policy Number ID Provider's Bales's Relationship Coverage Coverage Telephone Name to Policy Number [place] M[place] Aug 19, [id number] Krist[address] EDDY [facility] (WNR) ADVANTAGE (WNR) 2016 8 [id number] [phone] [facility] 1 [place] Aug 19, [id number] 800 [address] EDDY [facility] (WNR) ADVANTAGE (WNR) 2016 8 [id number] [phone] [facility] 1 Selected Encounter This section includes the information on record at [place] for the Encounter. Date/Time Encounter Type Encounter Description Reason Provider Source Feb 26, 2022 08:06 Outpatient Encounter TELEPHONE/ANCILLARY AM IHE Encounter Template Text not used by [place] Plan of Treatment: Future Appointments (+ 6 months) and Future Tests (+/- 45 days) The Plan of Treatment section includes future care activities for the patient from all [facility]. This section includes future appointments and future orders which are active, pending orscheduled.Future Appointments This section includes appointments that were scheduled to occur 6 months from the date of the Encounter, up to a maximum of 20 appointments. The data comes from all [place] treatment facilities. Appointment Date/Time Appointment Type Appointment Facili ty Name Mar 12, 2022 09:30 AM AMBULATORY - NONE [facility] Apr 02, 2022 09:00 AM AMBULATORY - PSYCHIATRY [facility] Apr 02, 2022 01:30 PM AMBULATORY - NEUROLOGY [facility] Apr 02, 2022 02:45 PM AMBULATORY - NONE [facility] Apr 26, 2022 10:00 AM AMBULATORY - PSYCHIATRY [facility] Apr 30, 2022 08:00 AM AMBULATORY - MEDICINE [facility] Apr 30, 2022 09:15 AM AMBULATORY - NONE [facility] May 01, 2022 11:06 AM AMBULATORY - NONE [facility] May 06, 2022 09:40 AM AMBULATORY - MEDICINE [facility] May 11, 2022 06:15 PM AMBULATORY - NONE [facility] Jul 23, 2022 08:00 AM AMBULATORY - NEUROLOGY [facility] Lab Results: +/- 30 days of [...] Range Comment Feb 02, 2022 11:29 AM [facility] B 12 Specim en Type: SERUM No comment enter ed. Ordering Provid er: BILL ROONEY Report Released Date/Time: Feb 02, 2022 09:56 AM Reporting Lab: [facility] [address] [facility] [address] Performing Lab: [facility] [address] [facility] [address] B 12 192 L [phone] Feb 02, 2022 11:29 AM [facility] FOLATE Specim en Type: SERUM No comment enter ed. Ordering Provid er: BILL ROONEY Report Released Date/Time: Feb 02, 2022 09:56 AM Reporting Lab: [facility] [address] [facility] [address] Performing Lab: [facility] [address] [facility] [address] FOLATE 10.6 >7.0 Feb 02, 2022 [facility] TSH W/REFLEX TO FREE Specime n Type: PLASMA 11:29 AM T4 No comment enter ed. Ordering Provid er: BILL ROONEY Report Released Date/Time: Feb 02, 2022 09:56 AM Reporting Lab: [facility] [address] [facility] [address] Performing Lab: [facility] [address] [facility] [address] TSH 1.95 0.35-4.94 Feb 02, 2022 11:29 [facility] SYPHILIS ANTIBODY Specime n Type: SERUM AM No comment enter ed. Ordering Provid er: BILL ROONEY Report Released Date/Time: Feb 02, 2022 09:56 AM Reporting Lab: [facility] [address] [facility] [address] Performing Lab: [facility] [address] [facility] [address] SYPHILIS ANTIBODY NEGATIVE Feb 02, 2022 11:29 AM [facility] IRON GROUP Specim en Type: SERUM No comment enter ed. Ordering Provid er: BILL ROONEY Report Released Date/Time: Feb 02, 2022 09:56 AM Reporting Lab: [facility] [address] [facility] [address] Performing Lab: [facility] [address] [facility] [address] IRON 67 65-175 TIBC,CALCULATED 304 250-425 FERRITIN 39.3 21.8-274.7 IRON SATURATION 22 20-50 TRANSFERRIN [phone] Feb 02, 2022 11:29 [facility] HEMOGLOBIN A1C Specimen Type: BLOOD AM No comment enter ed. Ordering Provid er: BILL ROONEY Report Released Date/Time: Feb 02, 2022 09:56 AM Reporting Lab: [facility] [address] [facility] [address] Performing Lab: [facility] [address] [facility] [address] HEMOGLOBIN A1C 8.2 H 4.0-6.0 Feb 02, 2022 11:29 [facility] HIV AG/AB SCREEN Specimen Type: SERUM AM No comment enter ed. Ordering Provid er: BILL ROONEY Report Released Date/Time: Feb 02, 2022 09:56 AM Reporting Lab: [facility] [address] [facility] [address] Performing Lab: [facility] [address] [facility] [address] HIV AG/AB SCREEN NEGATIVE NEGATIVE Feb 02, 2022 11:29 AM [facility] CBC Specim en Type: BLOOD No comment enter ed. Ordering Provid er: BILL ROONEY Report Released Date/Time: Feb 02, 2022 09:56 AM Reporting Lab: [facility] [address] [facility] [address] Performing Lab: [facility] [address] WBC 9.18 4.0-11.0 RBC 4.38 L 4.6-6.2 HGB 13.1 L 13.5-17.9 HCT 40.9 L 41-54 MCV 93.4 80-100 MCH 29.9 27-33 MCHC 32.0 32.0-37.5 PLT 284 150-400 MPV 9.8 7.4-10.4 RDW 15.5 H 11.5-14.5 Feb 02, 2022 [facility] COMPREHENSIVE METABOLIC Spec imen Type: PLASMA 11:29 AM PANEL+MG No comment enter ed. Ordering Provid er: BILL ROONEY Report Released Date/Time: Feb 02, 2022 09:56 AM Reporting Lab: [facility] [address] [facility] [address] Performing Lab: [facility] [address] CREATININE 1.7 H 0.7-1.2 UREA NITROGEN 20 8-26 GLUCOSE 176 H 74-100 SODIUM 137 136-145 POTASSIUM 4.2 3.5-5.1 CHLORIDE 105 98-107 CO2 22 22-29 CALCIUM 9.6 8.4-10.2 PROTEIN,TOTAL 7.1 6.0-8.3 ALBUMIN 3.9 3.5-5.2 BILIRUBIN, TOTAL 0.6 0.2-1.2 MAGNESIUM 1.7 1.6-2.6 ANION GAP 10 5-15 ALKALINE PHOSPHATASE 112 40-150 ALT/SGPT 21 <55 AST/SGOT 16 <34 CREAT EGFR(CKD-EPI) 39 L >60 Feb 02, 2022 [facility] METHYLMA ACID, [place] Specime n Type: SERUM 11:29 AM Comment: This t est was developed and its analytical performance characteristics have been determined by [employer] [place], [place]. It has not been cleared or approved by the U.S . Food and Drug Administration. This assay has been validated pursuant to the CLIA regulations and is used for clinical purposes. Test Performed by [employer] [facility], [facility], [address] [place] [address] Domenic Miller M.D., Ph.D., Director of Laboratories , CLIA [id number] Ordering Provid er: BILL ROONEY Report Released Date/Time: Feb 02, 2022 12:56 PM Reporting Lab: [facility] [address] Performing Lab: [address] METHYLMA ACID, [place] 820 H [phone] Feb 02, 2022 10:53 AM [facility] URINALYSIS Specim en Type: URINE No comment enter ed. Ordering Provid er: BILL ROONEY Report Released Date/Time: Feb 02, 2022 09:56 AM Reporting Lab: [facility] [address] [facility] [address] [facility] [address] Performing Lab: [facility] [address] [facility] [address] URINE COLOR LIGHT-YELLOW SPECIFIC GRAVITY 1.010 1.003-1.035 [...] smoking and tobacco-related health factors from the [place] facility where the Encounter took place.Current Smoking Status This section includes the most current smoking, or tobacco-related health factor, from the [facility] where the Encounter took place. Date/Time Current Smoking Status Comment Facility Feb 02, 2022 09:30 AM [place]-TOBACCO NEVER USED [place] [facility] Tobacco Use History This section includes a history of the smoking, or tobacco- related health factors, that were collected on or before the date of the Encounter. The data comes from the [place] facility where the Encounter took place. Date/Time Smoking Status/Tobacco Use Comment Xavi chanel Mar 22, 2021 07:45 AM [place]-TOBACCO NEVER USED [place] [facility] Oct 02, 2019 10:02 AM VA-TOBACCO NEVER USED [place] [facility] May 21, 2018 09:05 AM VA-TOBACCO NEVER USED [place] [facility] December 25, 2017 06:14 PM INPT NO TOBACCO USE IN LAST 30 DAYS [facility] Oct 01, 2017 07:34 AM LIFETIME NON-TOBACCO USER [facility] Sep 28, 2016 08:44 AM LIFETIME NON-TOBACCO USER [facility] Oct 14, 2015 07:52 AM LIFETIME NON-TOBACCO USER [facility] Oct 11, 2014 07:59 AM LIFETIME NON-TOBACCO USER [facility] January 15, 2007 07:55 AM LIFETIME NON-TOBACCO USER [facility] Advance Directives: All historical and current Section Date Range: From patient's date of to the date document was created. This section includes ALL of a patient's completed or amended [place] Advance and Rescinded Directives. The entries below indicate that a directive exists for the patient, but an actual copy is not included with this document. The data comes from all [facility]. Date Advance Directives Provider Source Apr 18, 2018 ADVANCE DIRECTIVE LARISSA SIGALA [facility] Apr 18, 2018 ADVANCE DIRECTIVE DISCUSSION [facility] December 23, 2017 CLINICAL WARNING FARHAT SCHMID [facility] May 11, 2003 ADVANCE DIRECTIVE BERT CASILLAS [facility] Radiology Reports: +/- 30 days of [...] the Encounter. The data comes from all [place] treatment facilities. Date/Time Radiology Report Provider Source Mar 12, 2022 09:03 CT HEAD (P): BRONSON SHEPPARD [facility] AM LUISANA EDDY [id number] [facility]1935 M Ex Date: MAR 12, 2022@09:03 Req Phys: BILL ROONEY Pat Loc: MSP PACT IRIS WH 4D (Req'g Loc Img Loc: CT IMAGING Service: Unknown (Case 152 COMPLETE) CT HEAD/BRAIN W/O CONTRAST ( CT Detailed) CPT:83059 Reason for Study: worsening cognition Clinical History: IS NOT under investigation for COVID-19 or is COVID-19 negative Defer to radiologist for final CT protocol. Responsible provider name and phone number to n otify for critical findings if other than user placing the order a nd pager listed below: User placing orders pager: [phone] LAST 3: Collection DT Specimen Test Name [...] ESTIMATED GFR(eGF 44 L Ref: >=60 Allergies: ([place] only) SIMVASTATIN (Feb 29, 2004) CEPHALEXIN (Mar 01, 2004) Report Status: Verified Date Reported: MAR 12, 2022 Date Verified: MAR 12, 2022 Bilingual Sales Assistant E-Sig:/ES/BRONSON SHEPPARD MD Report: NONCONTRAST CT OF THE HEAD 03/12/2022 9:03 AM INDICATION: Worsening cognition TECHNIQUE: Non- enhanced axial images of the brain were obtained from the base of the skull to the vertex. COMPARISON: 12/23/2017 DOSE: DLP 856 mGy*cm FINDINGS: Olhy-tc-pdndocus volume loss, age meghan ropriate. Mild degree [...] Source Feb 26, 2022 08:06 AM COMMUNITY GROUP HOME CARE NOTE: SIRI QUICK [facility] LOCAL TITLE: [facility] ELIGIBILITY STANDARD TITLE: COMMUNITY GROUP HOME CARE NOTE DATE OF NOTE: FEB 26, 2022@08:06 ENTRY DATE: FEB 26, 2022@08:07:07 AUTHOR: MARVEL QUICK EXP COSIGNER: URGENCY: STATUS: COMPLETED COMMUNITY GROUP HOME ELIGIBILITY: This contact note is used to document a Veter an's administrative eligibility for a VA authorization at a formerly [facility] group home. Referral Source/Location: [facility] [facility] Home: Contract Prison: Yes Contact: Maral Varela Phone Number: Reviewed the following eligibility [facility] Er or [facility] Authorizatio n: No If yes: If administratively eligible, meets [facility] guidelines for skilled rehab and able/willing to participate: N o has a clinical need for group home car e: Yes Hospice authorization: Yes [place] would be eligible if enrolled in hospic e service - hospice not involved at this time. Referral source contact encouraged to do the fol lowing: Contact publicity writer for further questions as needed. /ronni/ MINOR SILVA INSPECTOR PAWNSHOP DETAIL ANNEALING OVEN OPERATOR Signed: 02/26/2022 08:08
--- OUTSIDE RECORDS SUMMARY | 2022-05-15 09:18 | XMS_ITS | Encounter Summary ---
:1935 Author Organization [facility] rs Address [address] [place] [address] Support Name Relationship Address Phone WADE LORENZO Unavailable [id number] [place] [address] WADE LORENZO Unavailable [id number] [place] [address] ARACELI MARSHALL Unavailable [address] [facility] [address] MARILIA MARSHALLA Unavailable [address] [place] [address] Insurance Providers: All historical and current Section [...] [place] M[place] Aug 19, [id number] Kristel EDDY FORMERLY [facility] (WNR) ADVANTAGE (WNR) 2017 8 [id number] [phone] [facility] 1 [place] MEDICARE MCR Aug 19, [id number] Kristel [facility] (WNR) 2016 8 [id number] [phone] [facility] 1 Selected Encounter This section includes the information on record at ME for the Encounter. Date/Time Encounter Type Encounter Reason Provider Source Description Apr 02, 2022 OFFICE O/P NEW NEUROLOGY ICD-10-CM E11.9 VIV SOL 01:30 PM MOD 45-59 MIN Type 2 diabetes CYNTHIA O mellitus without complications with Provider Comments: Type 2 diabetes mellitus ([facility] [id number]) IHE Encounter Template Text not used by ME Assessments - Encounter Diagnoses This section includes the primary and secondary diagnoses documented for the Encounter. Date/Time Primary/Secondary Diagnosis Name Provider Source Diagnosis Apr 02, 2022 PRIMARY Type 2 diabetes VIV SOL [facility] 01:52 PM mellitus without CYNTHIA O HCS complications Plan of Treatment: Future Appointments (+ 6 months) and Future Tests (+/- 45 days) The Plan of Treatment section includes future care activities for the patient from all [facility]. This section includes future appointments and future orders which are active, pending orscheduled.Future Appointments This section includes appointments that were scheduled to occur 6 months from the date of the Encounter, up to a maximum of 20 appointments. The data comes from all [facility]. Appointment Date/Time Appointment Type Appointment Facili ty Name Apr 26, 2022 10:00 AM AMBULATORY - PSYCHIATRY [facility] Apr 30, 2022 08:00 AM [facility] Apr 30, 2022 09:15 AM AMBULATORY - NONE [facility] May 01, 2022 11:06 AM AMBULATORY - NONE [facility] May 06, 2022 09:40 AM [facility]ICINE [facility] May 11, 2022 06:15 PM AMBULATORY - NONE [facility] Jul 23, 2022 08:00 AM AMBULATORY - NEUROLOGY [facility] Active, Pending, and Scheduled Orders [...] data comes from all [facility]. Test Date/Time Test Type Test Details Facility Name Apr 30, 2022 08:21 Laboratory - Chemistry URINALYSIS URINE WC ON CE [facility] AM Order Apr 30, 2022 08:21 Laboratory - CULTURE & SUSCEPTIBILITY [facility] Microbiology Order URINE May 06, 2022 12:00 Laboratory - Blood ABO/RH - LAB BLOOD [facility] AM Bank Order May 06, 2022 10:11 Laboratory - Blood [facility] & [facility] Bank Order BLOOD May 06, 2022 10:27 Pharmacy - [facility] AM Medication Order May 06, 2022 10:28 Pharmacy [facility] AM Infusion Order May 06, 2022 10:[address] [facility] AM Infusion Order May 06, 2022 10:41 Pharmacy [facility] AM Infusion Order May 06, 2022 12:[address] [facility] PM Medication Order May 06, 2022 01:31 [facility] PM Medication Order May 06, 2022 04:49 [facility] PM Medication Order May 07, 2022 01:00 Laboratory - CULT[facility] & [facility]USCEPTIBILITY [facility] PM Microbiology Order BLOOD WC ONCE May 11, 2022 09:07 [facility] Microbiology Order BLOOD WC May 11, 2022 09:07 Laboratory - CULTURE & [facility]USCEPTIBILITY [facility] AM Microbiology Order BLOOD WC May 11, 2022 09:38 Laboratory - Chemistry EOSINOPHIL SMEAR,URINE [facility] AM Order URINE WC ONCE May 11, 2022 09:38 Laboratory - Chemistry FENA [facility] WC [facility] Order May 11, 2022 09:38 Laboratory - Chemistry URINALYSIS URINE WC ON CE [facility] AM Order Lab Results: +/- 30 [...] Interpretation Reference Range Comment Apr 30, 2022 [facility] BASIC METABOLIC Specimen Typ e: PLASMA 09:17 AM PANEL+MG No comment enter ed. Ordering Provid er: BILL ROONEY Report Released Date/Time: Apr 30, 2022 08:21 AM Reporting Lab: [facility] [address] [facility] [address] Performing Lab: [facility] [address] [facility] [address] CREATININE 1.2 0.7-1.2 UREA NITROGEN 26 8-26 GLUCOSE 140 H 70-100 SODIUM 138 136-145 POTASSIUM 3.8 3.5-5.1 CHLORIDE 107 98-107 CO2 20 L 22-29 CALCIUM 9.4 8.4-10.2 MAGNESIUM 1.7 1.6-2.6 ANION GAP 11 5-15 CREAT EGFR(CKD-EPI) 59 L >60 Apr 30, 2022 09:17 AM [facility] CBC Specim en Type: BLOOD No comment enter ed. Ordering Provid er: ROCIOKARINEBILL Felipe Report Released Date/Time: Apr 30, 2022 08:21 AM Reporting Lab: [facility] [address] [facility] [address] Performing Lab: [facility] [address] [facility] [address] WBC 10.40 4.0-11.0 RBC 3.96 L 4.6-6.2 HGB 12.3 L 13.5-17.9 HCT 37.8 L 41-54 MCV 95.5 80-100 MCH 31.1 27-33 MCHC 32.5 32.0-37.5 PLT 286 150-400 MPV 10.1 7.4-10.4 RDW 14.6 H 11.5-14.5 Apr 02, 2022 02:37 PM [facility] AMMONIA Specim en Type: PLASMA No comment enter ed. Ordering Provid er: MADISON SOL Report Released Date/Time: Apr 02, 2022 02:05 PM Reporting Lab: [facility] [address] [facility] [address] Performing Lab: [facility] [address] [facility] [address] AMMONIA <14 <72 Apr 02, 2022 02:37 PM [facility] B 12 Specim en Type: SERUM No comment enter ed. Ordering Provid er: MADISON SOL O Report Released Date/Time: Apr 02, 2022 02:05 PM Reporting Lab: [facility] [address] [facility] [address] Performing Lab: [facility] [address] [facility] [address] B 12 [phone] Apr 02, 2022 [facility] LIVER FUNCTION TESTS Specime n Type: PLASMA 02:37 PM No comment enter ed. Ordering Provid er: MADISON SOL O Report Released Date/Time: Apr 02, 2022 02:05 PM Reporting Lab: [facility] [address] [facility] [address] Performing Lab: [facility] [address] [facility] [address] BILIRUBIN, TOTAL 0.5 0.2-1.2 ALKALINE PHOSPHATASE 108 40-150 ALT/SGPT 24 <55 AST/SGOT 18 <34 GAMMA GTP 34 <64 Apr 02, 2022 [facility] METHYLMA ACID, [place] Specime n Type: SERUM 02:37 PM Comment: This t est was developed and its analytical performance characteristics have been determined by [employer] [place], [place]. It has not been cleared or approved by the U.S . Food and Drug Administration. This assay has been validated pursuant to the CLIA regulations and is used for clinical purposes. Test Performed by [facility], [address] [place] [address] Domenic Miller M.D., Ph.D., Director of Laboratories , CLIA [id number] Ordering Provid er: MADISON SOL Report Released Date/Time: Apr 02, 2022 04:37 PM Reporting Lab: [facility] [address] [facility] [address] Performing Lab: [address] METHYLMA ACID, [place] 406 H 87-318 Vital Signs: All taken on the encounter date This section contains inpatient and outpatient Vital Signs collected on the date of the Encounter. Date/Time Temperature Pulse Blood Respiratory SP02 Pain Height Weight Edvin dy Source Pressure Rate Mass Index Apr 02 123/70 18 /min 93 % 3 [place] 2021 01:22 /min mm[Hg] IS [facility] Social History: Smoking Status (Most current) [...] Comment Facility Feb 02, 2022 09:30 AM ME-TOBACCO NEVER USED [facility] Tobacco Use History This section includes a history of the smoking, or tobacco- related health factors, that were collected on or before the date of the Encounter. The data comes from the [place] facility where the Encounter took place. Date/Time Smoking Status/Tobacco Use Comment [facility] Mar 22, 2021 07:45 AM ME-TOBACCO NEVER USED [facility] [place] [facility] Oct 02, 2019 10:02 AM [place]-TOBACCO NEVER USED [facility] [facility] [facility] May 21, 2018 09:05 AM ME-TOBACCO NEVER USED [place] [facility] December 25, 2017 06:14 PM INPT NO TOBACCO USE IN LAST 30 DAYS [facility] Oct 01, 2017 07:34 AM LIFETIME NON-TOBACCO USER [facility] Sep 28, 2016 08:44 AM LIFETIME NON-TOBACCO USER [facility] Oct 14, 2015 07:52 AM LIFETIME NON-TOBACCO USER [facility] Oct 11, 2014 07:59 AM LIFETIME NON-TOBACCO USER [facility] January 15, 2007 07:55 AM LIFETIME NON-TOBACCO USER [facility] Advance Directives: All historical and [...] Apr 18, 2018 ADVANCE DIRECTIVE LARISSA SIGALA [facility] Apr 18, 2018 ADVANCE DIRECTIVE DISCUSSION RAE SIGALAN [facility] December 23, 2017 CLINICAL WARNING [facility] May 11, 2003 ADVANCE DIRECTIVE BERT CASILLAS [facility] Radiology Reports: +/- 30 days [...] the Encounter. The data comes from all ME treatment facilities. Date/Time Radiology Report Provider Source Mar 12, 2022 09:03 CT HEAD (P): BRONSON SHEPPARD [facility] AM LUISANA EDDY [id number] -1935 M Exm Date: MAR 12, 2022@09:03 Req Phys: BILL ROONEY Pat Loc: [facility] PACT IRIS WH 4D (Req'g Loc Img Loc: CT IMAGING Service: Unknown (Case [id number] COMPLETE) CT HEAD/BRAIN W/O CONTRAST ( CT Detailed) CPT:55505 Reason for Study: worsening cognition Clinical History: IS NOT under investigation for COVID-19 or is COVID-19 negative Defer to radiologist for final CT protocol. Responsible provider name and phone number to n otify for critical findings if other than user placing the order a nd pager listed below: User placing orders pager: [phone] LAST 3: Collection DT Specimen Test Name [...] ESTIMATED GFR(eGF 44 L Ref: >=60 Allergies: (Rotan only) SIMVASTATIN (Feb 29, 2004) CEPHALEXIN (Mar 01, 2004) Report Status: Verified Date Reported: MAR 12, 2022 Date Verified: MAR 12, 2022 Fruit Buyer E-Sig:/ES/BRONSON SHEPPARD MD Report: NONCONTRAST CT OF THE HEAD 03/12/2022 9:03 AM INDICATION: Worsening cognition TECHNIQUE: Non- enhanced axial images of the brain were obtained from the base of the skull to the vertex. COMPARISON: 12/23/2017 DOSE: DLP 856 mGy*cm FINDINGS: Xioi-vu-ystpxxsy volume loss, age meghan ropriate. Mild degree [...] 02, 2022 02:17 NEUROLOGY CONSULT: MADISON SOL [facility] PM LOCAL TITLE: NEUROLOGY CONSULT O STANDARD TITLE: [...] to have prostatitis/urinary tract infection back in January 2022 he improved significantly with ant ibiotics however he has not returned to baseline. His work-up was ge nerally negative with the exception of low B12. His missile malonic acid was also high however the patient does have renal insufficiency with a creatinine of 1.4. e rest of work-up has been negative. [...] followin. Type 2 diabetes mellitus (SNOMED CT [id number] ) 2. OBESITY, UNSP 3. Psoriasis * 4. Social and personal history finding - Lives alone. Has brother in [place]. Friends felipe breaux. 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 5. History of adenomatous polyp of colon - Last c-scope 05/09/15 at [place]. Two small polyp s. - 5 year follow up if appropriate. 6. Elevated PSA - follows with urology at [place] - with BPH on terazosin - February 2021: TURP at [facility] 7. Chronic kidney disease stage 3 8. Diastolic heart failure - w/ HTN and dyslipidemia 9. Chronic atrial fibrillation - metoprolol and rivaroxaban 10. history of hospitalization - January 2021: Bacteremia secondary to urinary ou tflow obstruction from BPH - underwent a TURP at [facility] February 2021 11. corns and calluses - followed by podiatry in the community in [facility] 12. Gout - on allopurinol Allergies: SIMVASTATIN [...] BY MOUTH AT ACTIVE BEDTIME 7) NYSTATIN [id number] UNT/GM CREAM APPLY THIN LAYER ACTIVE TOPICALLY [...] as recommended. He is currently in a correction and I sent a handwritten prescription of B12 which his son and daughter will collect from the [place] pharmacy today. I will check for live [...] high but improved from 800 to 400 /ronni/ MADISON SOL MD Professor Signed: 04/10/2022 10:06 Apr 02, 2022 01:51 NEUROLOGY ATTENDING NOTE: MADISON SOL [facility] LOCAL TITLE: NEUROLOGY CLINIC NOTE O STANDARD TITLE: NEUROLOGY ATTENDING NOTE DATE OF NOTE: APR 02, 2022@13:51 ENTRY DATE: APR 02, 2022@13:51:53 AUTHOR: MADISON SOL EXP COSIGNER: URGENCY: STATUS: COMPLETED CYANOCOBALAMIN INJ,SOLN INJECT [...] 13:51 Current Data: Treating Specialty: Ordering Location: [facility] Start Date/Time: Stop Date/Time: Current Status: PENDING Orders that have been placed but not yet accept ed by the service filling the order. e.g., Pharmacy orders awaiti ng verification, Lab orders awaiting collection. Order #[id number] Order: Medication: CYANOCOBALAMIN INJ,SOLN Instructions: 1000MCG INTRAMUSCULAR QDAY 7 DAYS THEN 1000MCG INTRAMUSCULAR QW 28 DAYS THEN 1000MCG INTRAMUSCULAR QMONTH 90 DAYS THEN 1000MCG INTRAMUSCULAR S2FIUTPI Text: INJECT 1000MCG INTRAMUSCULAR EVERY DAY FOR 7 DA YS THEN INJECT 1000MCG INTRAMUSCULAR EVERY WEEK FOR 28 DAYS THEN INJEC T 1000MCG INTRAMUSCULAR EVERY MONTH FOR 90 DAYS THEN INJECT 1000MCG INT RAMUSCULAR EVERY THREE MONTHS Days Supply: 90 Quantity: 30 Refills: 3 Oil Burner Technician: MAIL Priority: ROUTINE Comments: Refills Remainin /es/ MADISON SOL MD Professor Signed: 04/02/2022 13:52 Apr 02, 2022 01:23 NEUROLOGY NURSING OUTPATIENT NOTE: HODAN WARNER [facility] LOCAL TITLE: NEUROLOGY CLINIC NURSING NOTE STANDARD TITLE: NEUROLOGY NURSING OUTPATIENT NOT E DATE OF NOTE: APR 02, 2022@13:23 ENTRY DATE: APR 02, 2022@13:23:50 AUTHOR: LUISANA WARNER EXP COSIGNER: URGENCY: STATUS: COMPLETED Neurology Nursing Note Allergies: SIMVASTATIN (Feb 29, 2004) CEPHALEXIN (Mar 01, 2004) Reason for Visit: Consult Gets all medication from the [place]. Medication Reconciliation Medication list has been reviewed [...]
--- OUTSIDE RECORDS SUMMARY | 2022-05-15 09:19 | XMS_ITS | Encounter Summary ---
:1935 Author Organization [facility] rs Address [address] [place] [address] Support Name Relationship Address Phone NATHANIEL LORENZO Unavailable [id number] [place] [address] NATHANIEL LORENZO Unavailable [address] [place] [address] ARACELI MARSHALL Unavailable [address] [place] [address] MARILIA MARSHALLA Unavailable [address] [place] [address] Insurance Providers: All historical and current Section Date Range: From patient's date of to the date document was created.This section includes the names of all active insurance providers for the patient. Insurance Type of Plan Start of End of Group Member Insurance [facility] Coverage Name Policy Policy Number ID Provider's Bales's Relationship Coverage Coverage Telephone Name to Policy Number [place]ales [place] M[place] Aug 19, [id number]DY [facility] (WNR) ADVANTAGE (WNR) 2016 8 [id number] [phone] [facility] [place] MEDICARE M[place] Aug 19, [id number]DY [facility] (WNR) ADVANTAGE (WNR) 2016 8 [id number] [phone] [facility] 1 Selected Encounter This section includes the information on record at [place] for the Encounter. Date/Time Encounter Type Encounter Description Reason Provider Source Apr 02, 2022 03:24 Outpatient Encounter CLINICAL PHARMACY PM [facility] Encounter Template Text not used by ND Plan of Treatment: Future Appointments (+ 6 months) and Future Tests (+/- 45 days) The Plan of Treatment section includes future care activities for the patient from all [place] [facility] This section includes future appointments and future orders which are active, pending orscheduled.Future Appointments This section includes appointments that were scheduled to occur 6 months from the date of the Encounter, up to a maximum of 20 appointments. The data comes from all [facility]. Appointment Date/Time Appointment Type Appointment Facili ty Name Apr 26, 2022 10:00 AM AMBULATORY - PSYCHIATRY [facility] Apr 30, 2022 08:00 AM AMBULATORY - MEDICINE [facility] Apr 30, 2022 09:15 AM AMBULATORY - NONE [facility] May 01, 2022 11:06 AM AMBULATORY - NONE [facility] May 06, 2022 09:40 AM AMBULATORY - MEDICINE [facility] May 11, 2022 06:15 PM AMBULATORY - NONE [facility] Jul 23, 2022 08:00 AM AMBULATORY - NEUROLOGY [facility] Active, Pending, and Scheduled [...] the Encounter. The data comes from all [facility]. Test Date/Time Test Type Test Details Facility Name Apr 30, 2022 08:21 Laboratory - CULTURE & SUSCEPTIBILITY [facility] AM Microbiology Order URINE WC Apr 30, 2022 08:21 Laboratory - Chemistry URINALYSIS URINE WC ON CE [facility] AM Order May 06, 2022 12:00 Laboratory - Blood ABO/RH - LAB BLOOD [facility] AM Bank Order May 06, 2022 10:11 Laboratory - Blood TYPE & SCREEN - LAB [facility] AM Bank Order BLOOD WC May 06, 2022 10:27 Pharmacy [facility] AM Medication Order May 06, 2022 10:28 [facility] AM Infusion Order May 06, 2022 10:34 [facility] AM Infusion Order May 06, 2022 10:41 [facility] AM Infusion Order May 06, 2022 12:15 [facility] PM Medication Order May 06, 2022 01:31 [facility] PM Medication Order May 06, 2022 04:49 [facility] PM Medication Order May 07, 2022 01:00 Laboratory - CULTURE & SUSCEPTIBILITY [facility] PM Microbiology Order BLOOD WC ONCE May 11, 2022 09:07 Laboratory - CULTURE & SUSCEPTIBILITY [facility] AM Microbiology Order BLOOD WC May 11, 2022 09:07 Laboratory - CULTURE & SUSCEPTIBILITY [facility] AM Microbiology Order BLOOD WC May 11, 2022 09:38 Laboratory - Chemistry EOSINOPHIL SMEAR,URINE [facility] AM Order URINE WC ONCE May 11, 2022 09:38 Laboratory - Chemistry URINALYSIS URINE WC ON CE [facility] AM Order May 11, 2022 09:38 Laboratory - Chemistry FENA URINE WC ONCE [facility] AM Order Lab Results: +/- 30 days of the encounter This section includes the Chemistry and Hematology Lab Results on record with [place] for the patient. Radiology Reports and Pathology Reports are provided separately, in subsequent sections.Lab Results This section contains the Chemistry/Hematology Results that were resulted 30 days before or 30 daysafter the date of the Encounter. Date/Time Source Result Type Result - Unit Interpretation Reference Range Comment Apr 30, 2022 09:17 AM [facility] CBC Specim en Type: BLOOD No comment enter ed. Ordering Provid er: BILL ROONEY Report Released Date/Time: Apr 30, 2022 08:21 AM Reporting Lab: [facility] [id number] Performing Lab: [facility] [address] WBC 10.40 4.0-11.0 RBC 3.96 L 4.6-6.2 HGB 12.3 L 13.5-17.9 HCT 37.8 L 41-54 MCV 95.5 80-100 MCH 31.1 27-33 MCHC 32.5 32.0-37.5 PLT 286 150-400 MPV 10.1 7.4-10.4 RDW 14.6 H 11.5-14.5 Apr 30, 2022 [facility] BASIC METABOLIC Specimen Typ e: PLASMA 09:17 AM PANEL+MG No comment enter ed. Ordering Provid er: BILL ROONEY Report Released Date/Time: Apr 30, 2022 08:21 AM Reporting Lab: [facility] [address] Performing Lab: [facility] [address] CREATININE 1.2 0.7-1.2 UREA NITROGEN 26 8-26 GLUCOSE 140 H 70-100 SODIUM 138 136-145 POTASSIUM 3.8 3.5-5.1 CHLORIDE 107 98-107 CO2 20 L 22-29 CALCIUM 9.4 8.4-10.2 MAGNESIUM 1.7 1.6-2.6 ANION GAP 11 5-15 CREAT EGFR(CKD-EPI) 59 L >60 Apr 02, 2022 02:37 PM [facility] B 12 Specim en Type: SERUM No comment enter ed. Ordering Provid er: MADISON GROVER Report Released Date/Time: Apr 02, 2022 02:05 PM Reporting Lab: [facility] [address] [facility] [address] Performing Lab: [facility] [address] B 12 [phone] Apr 02, 2022 [facility] LIVER FUNCTION TESTS Specime n Type: PLASMA 02:37 PM No comment enter ed. Ordering Provid er: MADISON GROVER Report Released Date/Time: Apr 02, 2022 02:05 PM Reporting Lab: [facility] [address] [facility] [address] Performing Lab: [facility] [address] [facility] [address] BILIRUBIN, TOTAL 0.5 0.2-1.2 ALKALINE PHOSPHATASE 108 40-150 ALT/SGPT 24 <55 AST/SGOT 18 <34 GAMMA GTP 34 <64 Apr 02, 2022 02:37 PM [facility] AMMONIA Specim en Type: PLASMA No comment enter ed. Ordering Provid er: MADISON GROVER Report Released Date/Time: Apr 02, 2022 02:05 PM Reporting Lab: [facility] [address] [facility] [address] Performing Lab: [facility] [address] [facility] [address] AMMONIA <14 <72 Apr 02, 2022 [facility] METHYLMA ACID, [place] Specime n Type: SERUM 02:37 PM Comment: This t est was developed and its analytical performance characteristics have been determined by [employer] [place], [place]. It has not been cleared or approved by the U.S . Food and Drug Administration. This assay has been validated pursuant to the CLIA regulations and is used for clinical purposes. Test Performed by [facility] [employer] [facility], [address] [place], [place] Domenic Miller M.D., Ph.D., Director of Laboratories , PAPITO [id number] Ordering Provid er: MADISON GROVER Report Released Date/Time: Apr 02, 2022 04:37 PM Reporting Lab: [facility] [address] [facility] [address] Performing Lab: [address] [facility] METHYLMA ACID, [place] 406 H 87-318 Vital Signs: All taken on the encounter date This section contains inpatient and outpatient Vital Signs collected on the date of the Encounter. Date/Time Temperature Pulse Blood Respiratory SP02 Pain Height Weight Edvin dy Source Pressure Rate Mass Index Apr 02 123/70 18 /min 93 % 3 [place] 2021 01:22 /min mm[Hg] [facility] Social History: Smoking Status (Most current) and Tobacco Use (All prior to encounter date) This section includes the most current, and the historical, smoking and tobacco-related health factors from the [place] facility where the Encounter took place.Current Smoking Status This section includes the most current smoking, or tobacco-related health factor, from the [place] facility where the Encounter took place. Date/Time Current Smoking Status Comment Facility Feb 02, 2022 09:30 AM [place]-TOBACCO NEVER USED [place] [facility] Tobacco Use History This section includes a history of the smoking, or tobacco- related health factors, that were collected on or before the date of the Encounter. The data comes from the [place] facility where the Encounter took place. Date/Time Smoking Status/Tobacco Use Comment [facility] Mar 22, 2021 07:45 AM VA-TOBACCO NEVER USED [place] [facility] Oct 02, 2019 10:02 AM VA-TOBACCO NEVER USED [place] [facility] May 21, 2018 09:05 AM [place]-TOBACCO NEVER USED [place] [facility] December 25, 2017 06:14 PM INPT NO TOBACCO USE IN LAST 30 DAYS [facility] Oct 01, 2017 07:34 AM LIFETIME NON-TOBACCO USER [facility] Sep 28, 2016 08:44 AM LIFETIME NON-TOBACCO USER [facility] Oct 14, 2015 07:52 AM LIFETIME NON-TOBACCO USER [facility] Oct 11, 2014 07:59 AM LIFETIME NON-TOBACCO USER [facility] January 15, 2007 07:55 AM LIFETIME NON-TOBACCO USER [facility] Advance Directives: All historical [...] Apr 18, 2018 ADVANCE DIRECTIVE LARISSA SIGALA [facility] Apr 18, 2018 ADVANCE DIRECTIVE DISCUSSION [facility] December 23, 2017 CLINICAL WARNING [facility] May 11, 2003 ADVANCE DIRECTIVE BERT CASILLAS [facility] Radiology Reports: +/- 30 days of the [...] The data comes from all [place] treatment facilities. Date/Time Radiology Report Provider Source Mar 12, 2022 09:03 CT [facility] LUISANA EDDY [id number] -[id number] M Exm Date: MAR 12, 2022@09:03 Req Phys: BILL ROONEY Pat Loc: [facility] PACT IRIS WH 4D (Req'g Loc Img Loc: CT IMAGING Service: Unknown (Case [id number] COMPLETE) CT HEAD/BRAIN W/O CONTRAST ( CT Detailed) CPT:54583 Reason for Study: worsening cognition Clinical History: [place] IS NOT under investigation for COVID-19 or is COVID-19 negative Defer to radiologist for final CT protocol. Responsible provider name and phone number to n otify for critical findings if other than user placing the order a nd pager listed below: User placing orders pager: [phone] LAST 3: Collection DT Specimen Test Name [...] ESTIMATED GFR(eGF 44 L Ref: >=60 Allergies: ([place] only) SIMVASTATIN (Feb 29, 2004) CEPHALEXIN (Mar 01, 2004) Report Status: Verified Date Reported: MAR 12, 2022 Date Verified: MAR 12, 2022 Multifocal Button Grinder E-Sig:/ES/BRONSON SHEPPARD MD Report: NONCONTRAST CT OF THE HEAD 03/12/2022 9:03 AM INDICATION: Worsening cognition TECHNIQUE: Non- enhanced axial images of the brain were obtained from the base of the skull to the vertex. COMPARISON: 12/23/2017 DOSE: DLP 856 mGy*cm FINDINGS: Dwtb-ll-relzzwmp volume loss, age meghan ropriate. Mild degree [...] 2022 03:24 PM EDUCATION NOTE: ANTHONY GALEANO [facility] LOCAL TITLE: EDUCATION MEDICATION INSTRUCTION STANDARD TITLE: EDUCATION NOTE DATE OF NOTE: APR 02, 2022@15:24 ENTRY DATE: APR 02, 2022@15:24:51 AUTHOR: ANTHONY GALEANO EXP COSIGNER: URGENCY: STATUS: COMPLETED EDUCATION MEDICATION INSTRUCTION Has ADDEND A MEDICATION EDUCATION PARTICIPANTS: Patient & son (Nathaniel [phone]) TEACHING STRATEGY: Face to Face READINESS TO [...] Dr. Grover-please let alice rust's son (Nathaniel [phone]) know if patient should continue CYANOCOBALAMIN TABLET 200MCG QDAY while on injection. /ronni/ ANTHONY GALEANO PharmD, [facility] PHARMACIST Signed: 04/02/2022 15:32 Receipt Acknowledged By: 04/02/2022 15:35 /ronni/ MADISON GROVER MD Professor 04/02/2022 ADDENDUM STATUS: COMPLETED Spoke with patient's son (Lesa marquez) to stop cyanocobalamin tablet per Dr. Grover. /ronni/ ANTHONY GALEANO PharmD, [facility] PHARMACIST Signed: 04/02/2022 15:41
--- OUTSIDE RECORDS SUMMARY | 2022-05-15 09:19 | XMS_ITS | Encounter Summary ---
:1935 Author Organization [facility] Address [address] [place] [address] Support Name Relationship Address Phone WADE LORENZO Unavailable [phone] [place] [address] WADE LORENZO Unavailable [address] [place] [address] MARILIA MARSHALLA Unavailable [address] [facility] [place] [address] GOGEORGE, ARACELI Unavailable [address] [place] [address] Insurance Providers: All historical and current Section [...] Bales [place] MCR Aug 19, [id number] Kristel EDDY [facility] (WNR) ADVANTAGE (WNR) 2017 8 [id number] [phone] [facility] 1 [place] MEDICARE MCR Aug 19, [id number] Kristel EDDY [facility] (WNR) ADVANTAGE (WNR) 2016 8 [id number] [phone] [facility] 1 Selected Encounter This section includes the information on record at [place] for the Encounter. Date/Time Encounter Type Encounter Reason Provider Source Description Apr 25, 2022 10:10 Outpatient ADMIN PAT ACTIVTIES HEATHER CADENA AM Encounter (MASNONCT) A E Encounter Template Text not used by [place] Plan of Treatment: Future Appointments (+ 6 months) and Future Tests (+/- 45 days) The Plan of Treatment section includes future care activities for the patient from all [facility] This section includes future appointments and future orders which are active, pending orscheduled.Future Appointments This section includes appointments that were scheduled to occur 6 months from the date of the Encounter, up to a maximum of 20 appointments. The data comes from all [place] treatment [facility]. Appointment Date/Time Appointment Type Appointment Facili ty Name Apr 26, 2022 10:00 AM AMBULATORY - PSYCHIATRY [facility] Apr 30, 2022 08:00 AM AMBULATORY - MEDICINE [facility] Apr 30, 2022 09:15 AM AMBULATORY - NONE [facility] May 01, 2022 11:06 AM AMBULATORY - NONE [facility] May 06, 2022 09:40 AM AMBULATORY - MEDICINE [facility] May 11, 2022 06:15 PM AMBULATORY - NONE [facility] Jul 23, 2022 08:00 AM AMBULATORY - NEUROLOGY [facility] Active, Pending, and Scheduled Orders This section includes a listing of several types of active, pending, and scheduled orders, including clinic medications orders, diagnostic test orders, procedure orders and consult orders; where the start date of the order is 45 days before the date of the Encounter or 45 days after the date of the Encounter. The data comes from all [facility]. Test Date/Time Test Type Test Details Facility Name Apr 30, 2022 08:21 Laboratory - Chemistry URINALYSIS URINE WC ON CE [facility] AM Order Apr 30, 2022 08:21 Laboratory - CULTURE & SUSCEPTIBILITY [facility] AM Microbiology Order URINE May 06, 2022 12:00 Laboratory - Blood ABO/RH - LAB BLOOD [facility] AM Bank Order May 06, 2022 10:11 Laboratory - Blood TYPE & SCREEN - LAB [facility] AM Bank Order BLOOD WC May 06, 2022 10:[address] [facility] AM Medication Order May 06, 2022 10:28 [facility] AM Infusion Order May 06, 2022 10:[address] [facility] AM Infusion Order May 06, 2022 10:41 [facility] AM Infusion Order May 06, 2022 12:15 [facility] PM Medication Order May 06, 2022 01:[address] [facility] PM Medication Order May 06, 2022 04:49 Pharmacy - Clinic [facility] PM Medication Order May 07, 2022 01:00 Laboratory - CULTURE & SUSCEPTIBILITY [facility] PM Microbiology Order BLOOD WC ONCE May 11, 2022 09:07 Laboratory - CULTURE & SUSCEPTIBILITY [facility] AM Microbiology Order BLOOD WC May 11, 2022 09:07 Laboratory - CULTURE & SUSCEPTIBILITY [facility] AM Microbiology Order BLOOD WC May 11, 2022 09:38 Laboratory - Chemistry EOSINOPHIL SMEAR,URINE [facility] AM Order URINE WC ONCE May 11, 2022 09:38 Laboratory - Chemistry URINALYSIS URINE WC ON CE [facility] AM Order May 11, 2022 09:38 Laboratory - Chemistry FENA URINE WC ONCE [facility] AM Order Lab Results: +/- [...] Result - Unit Interpretation Reference Range Comment May 11, 2022 11:13 [facility] FINGERSTICK GLUCOSE Speci men Type: BLOOD AM Comment: Mark casillas Nurse Notified Ordering Provid er: CODIE LEON Report Released Date/Time: May 11, 2022 11:53 AM Reporting Lab: [facility] [address] [facility] [address] Performing Lab: [facility] [address] [facility] [address] FINGERSTICK GLUCOSE 367 H 70-100 May 11, 2022 07:05 AM [facility] CK,TOTAL Specim en Type: PLASMA No comment enter ed. Ordering Provid er: CODIE LEON Report Released Date/Time: May 11, 2022 09:08 AM Reporting Lab: [facility] [address] [facility] [address] Performing Lab: [facility] [address] [facility] [address] CK,TOTAL 16 L 39-208 May 11, 2022 07:05 [facility] BASIC METABOLIC Specimen Type: PLASMA AM PANEL+MG No comment enter ed. Ordering Provid er: OG DIAL Report Released Date/Time: May 11, 2022 04:46 AM Reporting Lab: [facility] [address] [facility] [address] Performing Lab: [facility] [address] [facility] [address] CREATININE 1.6 H 0.7-1.2 UREA NITROGEN 28 H 8-26 GLUCOSE 396 H 70-100 SODIUM 150 H 136-145 POTASSIUM 3.7 3.5-5.1 CHLORIDE 120 H 98-107 CO2 23 22-29 CALCIUM 8.4 8.4-10.2 MAGNESIUM 2.1 1.6-2.6 ANION GAP 7 5-15 CREAT EGFR(CKD-EPI) 42 L >60 May 11, 2022 07:05 AM [facility] CBC Specim en Type: BLOOD No comment enter ed. Ordering Provid er: OG DIAL Report Released Date/Time: May 11, 2022 04:46 AM Reporting Lab: [facility] [address] [facility] [address] Performing Lab: [facility] [address] [facility] [address] WBC 15.93 H 4.0-11.0 RBC 3.60 L 4.6-6.2 HGB 11.2 L 13.5-17.9 HCT 35.3 L 41-54 MCV 98.1 80-100 MCH 31.1 27-33 MCHC 31.7 L 32.0-37.5 PLT 231 150-400 MPV 11.2 H 7.4-10.4 RDW 15.2 H 11.5-14.5 May 11, 2022 07:05 AM [facility] BNP Specim en Type: PLASMA No comment enter ed. Ordering Provid er: CODIE LEON Report Released Date/Time: May 11, 2022 09:15 AM Reporting Lab: [facility] [address] [facility] [address] Performing Lab: [facility] [address] [facility] [address] BNP 59 <99 May 11, 2022 07:05 [facility] LIVER FUNCTION TESTS Spec imen Type: PLASMA AM No comment enter ed. Ordering Provid er: CODIE LEON Report Released Date/Time: May 11, 2022 09:08 AM Reporting Lab: [facility] [address] [facility] [address] Performing Lab: [facility] [address] [facility] [address] BILIRUBIN, TOTAL 1.6 H 0.2-1.2 ALKALINE PHOSPHATASE 102 40-150 ALT/SGPT 42 <55 AST/SGOT 30 <34 GAMMA GTP 52 <64 DIR. BILIRUBIN 1.2 H <0.5 May 11, 2022 06:14 [facility] FINGERSTICK GLUCOSE Speci men Type: BLOOD AM Comment: Mark casillas Nurse Notified Ordering Provid er: CODIE LEON Report Released Date/Time: May 11, 2022 06:42 AM Reporting Lab: [facility] [address] [facility] [address] Performing Lab: [facility] [address] [facility] [address] FINGERSTICK GLUCOSE 345 H 70-100 May 11, 2022 02:24 [facility] FINGERSTICK GLUCOSE Speci men Type: BLOOD AM Comment: Mark casillas Ordering Provid er: CODIE LEON Report Released Date/Time: May 11, 2022 02:44 AM Reporting Lab: [facility] [address] [facility] [address] Performing Lab: [facility] [address] [facility] [address] FINGERSTICK GLUCOSE 375 H 70-100 May 10, 2022 08:38 [facility] FINGERSTICK GLUCOSE Speci men Type: BLOOD PM Comment: Mark casillas Ordering Provid er: CODIE LEON Report Released Date/Time: May 11, 2022 12:31 AM Reporting Lab: [facility] [address] [facility] [address] Performing Lab: [facility] [address] [facility] [address] FINGERSTICK GLUCOSE 346 H 70-100 May 10, 2022 05:05 [facility] FINGERSTICK GLUCOSE Speci men Type: BLOOD PM Comment: Mark casillas Nurse Notified Ordering Provid er: CODIE LEON Report Released Date/Time: May 10, 2022 11:50 PM Reporting Lab: [facility] [address] [facility] [address] Performing Lab: [facility] [address] [facility] [address] FINGERSTICK GLUCOSE 245 H 70-100 May 10, 2022 02:00 [facility] VANCOMYCIN (TROUGH) Speci men Type: PLASMA PM No comment enter ed. Ordering Provid er: CODIE LEON Report Released Date/Time: May 11, 2022 01:34 AM Reporting Lab: [facility] [address] Performing Lab: [facility] [address] VANCOMYCIN (TROUGH) 31.8 H 10.0-15.0 May 10, 2022 [facility] BASIC METABOLIC Specimen Typ e: PLASMA 02:00 PM PANEL+MG No comment enter ed. Ordering Provid er: CODIE LEON Report Released Date/Time: May 11, 2022 01:34 AM Reporting Lab: [facility] [address] Performing Lab: [facility] [address] CREATININE 1.1 .7-1.2 UREA NITROGEN 22 8-26 GLUCOSE 279 H 70-100 SODIUM 150 H 136-145 POTASSIUM 3.2 L 3.5-5.1 CHLORIDE 116 H 98-107 CO2 23 22-29 CALCIUM 8.5 8.4-10.2 MAGNESIUM 2.0 1.6-2.6 ANION GAP 11 5-15 CREAT EGFR(CKD-EPI) 65 >60 May 10, 2022 01:20 PM [facility] CBC & DIFF Specim en Type: BLOOD Comment: Automa nola Differential Performed Ordering Provid er: MD ESTEBAN Report Released Date/Time: May 10, 2022 08:52 PM Reporting Lab: [facility] [employer] [address] Performing Lab: [facility] [address] WBC 16.24 H 4.0-11.0 RBC 3.76 L 4.6-6.2 HGB 11.6 L 13.5-17.9 HCT 36.0 L 41-54 MCV 95.7 80-100 MCH 30.9 27-33 MCHC 32.2 32.0-37.5 PLT 225 150-400 MPV 10.6 H 7.4-10.4 NEUT 88.7 LYMPHS 4.7 MONO 4.6 EOSINO 0.1 BASO 0.2 RDW 14.8 H 11.5-14.5 ABS LYMPH 0.76 L 1.0-4.0 ABS MONO 0.74 0.1-1.0 ABS NEUT 14.41 H 2.0-7.7 ABS EOS 0.02 0-0.5 ABS BASO 0.03 0-0.2 IG(META,MYELO,PRO) 1.7 ABS IMMATURE GRAN 0.28 H 0-0.1 May 10, 2022 11:07 [facility] FINGERSTICK GLUCOSE Speci men Type: BLOOD AM Comment: Mark casillas Nurse Notified Ordering Provid er: CODIE LEON Report Released Date/Time: May 11, 2022 12:31 AM Reporting Lab: [facility] [address] [facility] [address] Performing Lab: [facility] [address] [facility] [address] FINGERSTICK GLUCOSE 253 H 70-100 May 10, 2022 06:16 [facility] FINGERSTICK GLUCOSE Speci men Type: BLOOD AM Comment: Mark casillas Nurse Notified Ordering Provid er: CODIE LEON Report Released Date/Time: May 10, 2022 11:50 PM Reporting Lab: [facility] [address] [facility] [address] Performing Lab: [facility] [address] [facility] [address] FINGERSTICK GLUCOSE 271 H 70-100 May 09, 2022 09:07 [facility] FINGERSTICK GLUCOSE Speci men Type: BLOOD PM Comment: Mark casillas Ordering Provid er: CODIE LEON Report Released Date/Time: May 10, 2022 11:50 PM Reporting Lab: [facility] [address] [facility] [address] Performing Lab: [facility] [address] [facility] [address] FINGERSTICK GLUCOSE 209 H 70-100 May 09, 2022 05:33 [facility] FINGERSTICK GLUCOSE Speci men Type: BLOOD PM Comment: Mark casillas Nurse Notified Ordering Provid er: CODIE LEON Report Released Date/Time: May 09, 2022 05:53 PM Reporting Lab: [facility] [address] [facility] [address] Performing Lab: [facility] [address] [facility] [address] FINGERSTICK GLUCOSE 251 H 70-100 May 09, 2022 02:09 [facility] VANCOMYCIN (PEAK) Specime n Type: SERUM PM No comment enter ed. Ordering Provid er: AMARIS DE JESUS Report Released Date/Time: May 09, 2022 09:33 AM Reporting Lab: [facility] [address] [facility] [address] Performing Lab: [facility] [address] [facility] [address] VANCOMYCIN (PEAK) 24.2 20.0-40.0 May 09, 2022 11:19 [facility] FINGERSTICK GLUCOSE Speci men Type: BLOOD AM Comment: Mark casillas Nurse Notified Ordering Provid er: CODIE LEON Report Released Date/Time: May 09, 2022 11:38 AM Reporting Lab: [facility] [address] [facility] [address] [facility] [address] FINGERSTICK GLUCOSE 240 H 70-100 May 09, 2022 08:13 [facility] VANCOMYCIN (TROUGH) Speci men Type: SERUM AM No comment enter ed. Ordering Provid er: AMARIS DE JESUS Report Released Date/Time: May 08, 2022 11:14 AM Reporting Lab: [facility] [address] [facility] [address] Performing Lab: [facility] [address] [facility] [address] VANCOMYCIN (TROUGH) 16.1 H 10.0-15.0 May 09, 2022 05:33 AM [facility] CBC & DIFF Specim en Type: BLOOD Comment: Automa nola Differential Performed Ordering Provid er: CODIE LEON Report Released Date/Time: May 08, 2022 05:27 PM Reporting Lab: [facility] [address] Performing Lab: [facility] [address] [facility] [address] WBC 14.92 H 4.0-11.0 RBC 3.41 L 4.6-6.2 HGB 10.5 L 13.5-17.9 HCT 32.6 L 41-54 MCV 95.6 80-100 MCH 30.8 27-33 MCHC 32.2 32.0-37.5 PLT 197 150-400 MPV 10.8 H 7.4-10.4 NEUT 86.8 LYMPHS 5.0 MONO 6.9 BASO 0.2 RDW 14.7 H 11.5-14.5 ABS LYMPH 0.75 L 1.0-4.0 ABS MONO 1.03 H 0.1-1.0 ABS NEUT 12.95 H 2.0-7.7 ABS BASO 0.03 0-0.2 IG(META,MYELO,PRO) 1.1 ABS IMMATURE GRAN 0.16 H 0-0.1 May 09, 2022 [facility] COMPREHENSIVE METABOLIC Spec imen Type: PLASMA 05:32 AM PANEL+MG No comment enter ed. Ordering Provid er: CODIE LEON Report Released Date/Time: May 08, 2022 05:27 PM Reporting Lab: [facility] [address] [facility] [address] Performing Lab: [facility] [address] [facility] [address] CREATININE 1.2 0.7-1.2 UREA NITROGEN 25 8-26 GLUCOSE 335 H 70-100 SODIUM 145 136-145 POTASSIUM 3.2 L 3.5-5.1 CHLORIDE 112 H 98-107 CO2 22 22-29 CALCIUM 8.4 8.4-10.2 PROTEIN,TOTAL 5.4 L 6.0-8.3 ALBUMIN 2.6 L 3.5-5.2 BILIRUBIN, TOTAL 1.0 0.2-1.2 MAGNESIUM 1.9 1.6-2.6 ANION GAP 11 5-15 ALKALINE PHOSPHATASE 77 40-150 ALT/SGPT 51 <55 AST/SGOT 41 H <34 CREAT EGFR(CKD-EPI) 59 L >60 May 09, 2022 05:16 [facility] FINGERSTICK GLUCOSE Speci men Type: BLOOD AM Comment: Mark casillas Nurse Notified Ordering Provid er: CODIE LEON Report Released Date/Time: May 09, 2022 07:27 AM Reporting Lab: [facility] [address] [facility] [address] Performing Lab: [facility] [address] [facility] [address] FINGERSTICK GLUCOSE 295 H 70-100 May 08, 2022 09:32 PM [facility] EXTRA MINT TUBE Specim en Type: PLASMA No comment enter ed. Ordering Provid er: MD ESTEBAN Report Released Date/Time: May 08, 2022 09:32 PM Reporting Lab: [facility] [address] [facility] [address] Performing Lab: [facility] [address] [facility] [address] EXTRA MINT TUBE RECEIVED May 08, 2022 09:32 PM [facility] EXTRA PURPLE TUBE Spec imen Type: BLOOD No comment enter ed. Ordering Provid er: MD ESTEBAN Report Released Date/Time: May 08, 2022 09:32 PM Reporting Lab: [facility] [address] [facility] [address] Performing Lab: [facility] [address] [facility] [address] EXTRA PURPLE TUBE RECEIVED May 08, 2022 09:32 [facility] EXTRA GOLD GEL TUBE Speci men Type: SERUM PM No comment enter ed. Ordering Provid er: MD ESTEBAN Report Released Date/Time: May 08, 2022 09:32 PM Reporting Lab: [facility] [address] [facility] [address] Performing Lab: [facility] [address] [facility] [address] EXTRA GOLD GEL TUBE RECEIVED May 08, 2022 09:32 PM [facility] EXTRA BLUE TUBE Specim en Type: PLASMA No comment enter ed. Ordering Provid er: MD ESTEBAN Report Released Date/Time: May 08, 2022 09:32 PM Reporting Lab: [facility] [address] [facility] [address] Performing Lab: [facility] [address] [facility] [address] EXTRA BLUE TUBE RECEIVED May 08, 2022 09:32 PM [facility] EXTRA BRASWELL TUBE Specim en Type: PLASMA No comment enter ed. Ordering Provid er: MD ESTEBAN Report Released Date/Time: May 08, 2022 09:37 PM Reporting Lab: [facility] [address] [facility] [address] Performing Lab: [facility] [address] [facility] [address] EXTRA BRASWELL TUBE RECEIVED May 08, 2022 09:32 PM [facility] LACTIC ACID Specim en Type: PLASMA No comment enter ed. Ordering Provid er: OG DIAL Report Released Date/Time: May 08, 2022 09:49 PM Reporting Lab: [facility] [address] [facility] [address] Performing Lab: [facility] [address] [facility] [address] LACTIC ACID 2.5 H 0.5-2.2 May 08, 2022 09:32 PM [facility] BNP Specim en Type: PLASMA No comment enter ed. Ordering Provid er: OG DIAL Report Released Date/Time: May 08, 2022 09:50 PM Reporting Lab: [facility] [employer] [address] Performing Lab: [facility] [employer] [address] BNP 897 H <99 May 08, 2022 09:32 PM [facility] BLOOD GASES Specim en Type: VENOUS BLOOD Comment: O2 THE RAPY = 3L PM Ordering Provid er: OG DIAL Report Released Date/Time: May 08, 2022 09:50 PM Reporting Lab: [facility] [address] Performing Lab: [facility] [address] PH 7.36 7.33-7.43 PCO2 47 41-51 BICARBONATE 24.4 21.0-30.0 PO2 31 L 35-40 OXYGEN SATURATION 54.7 L 70.0-75.0 PH(TEMP CORRECTED) 7.37 7.33-7.43 PCO2(TEMP CORRECTED) 46 41-51 PO2(TEMP CORRECTED) 31 L 35-40 PATIENT TEMPERATURE 36.7 May 08, 2022 09:32 PM [facility] CBC Specim en Type: BLOOD No comment enter ed. Ordering Provid er: OG DIAL Report Released Date/Time: May 08, 2022 09:50 PM Reporting Lab: [facility] [employer] [address] Performing Lab: [facility] [address] WBC 18.54 H 4.0-11.0 RBC 3.68 L 4.6-6.2 HGB 11.5 L 13.5-17.9 HCT 35.1 L 41-54 MCV 95.4 80-100 MCH 31.3 27-33 MCHC 32.8 32.0-37.5 PLT 221 150-400 MPV 11.1 H 7.4-10.4 RDW 14.9 H 11.5-14.5 May 08, 2022 [facility] COMPREHENSIVE METABOLIC Spec imen Type: PLASMA 09:32 PM PANEL+MG No comment enter ed. Ordering Provid er: OG DIAL Report Released Date/Time: May 08, 2022 09:50 PM Reporting Lab: [facility] [address] Performing Lab: [facility] [address] CREATININE 1.3 H 0.7-1.2 UREA NITROGEN 26 8-26 GLUCOSE 273 H 70-100 SODIUM 146 H 136-145 POTASSIUM 3.5 3.5-5.1 CHLORIDE 112 H 98-107 CO2 23 22-29 CALCIUM 8.8 8.4-10.2 PROTEIN,TOTAL 5.9 L 6.0-8.3 ALBUMIN 2.9 L 3.5-5.2 BILIRUBIN, TOTAL 1.0 0.2-1.2 MAGNESIUM 1.9 1.6-2.6 ANION GAP 11 5-15 ALKALINE PHOSPHATASE 90 40-150 ALT/SGPT 58 H <55 AST/SGOT 70 H <34 CREAT EGFR(CKD-EPI) 54 L >60 May 08, 2022 08:27 [facility] FINGERSTICK GLUCOSE Speci men Type: BLOOD PM Comment: Mark casillas Nurse Notified Ordering Provid er: CODIE LEON Report Released Date/Time: May 08, 2022 08:55 PM Reporting Lab: [facility] [address] [facility] [address] Performing Lab: [facility] [facility] [address] FINGERSTICK GLUCOSE 272 H 70-100 May 08, 2022 06:56 [facility] FINGERSTICK GLUCOSE Speci men Type: BLOOD PM Comment: Mark casillas Ordering Provid er: CODIE LEON Report Released Date/Time: May 08, 2022 07:08 PM Reporting Lab: [facility] [address] [facility] [address] Performing Lab: [facility] [address] [facility] [address] FINGERSTICK GLUCOSE 262 H 70-100 May 08, 2022 04:50 [facility] FINGERSTICK GLUCOSE Speci men Type: BLOOD PM Comment: Nurse Notified Ordering Provid er: CODIE LEON Report Released Date/Time: May 08, 2022 05:14 PM Reporting Lab: [facility] [address] [facility] [address] Performing Lab: [facility] [address] [facility] [address] FINGERSTICK GLUCOSE 330 H 70-100 May 08, 2022 11:21 [facility] FINGERSTICK GLUCOSE Speci men Type: BLOOD AM Comment: Mark casillas Nurse Notified Ordering Provid er: CODIE LEON Report Released Date/Time: May 08, 2022 11:51 AM Reporting Lab: [facility] [address] [facility] [address] Performing Lab: [facility] [address] [facility] [address] FINGERSTICK GLUCOSE 231 H 70-100 May 08, 2022 07:25 AM [facility] CBC & DIFF Specim en Type: BLOOD Comment: Automa nola Differential Performed Ordering Provid er: BETO AYALA Report Released Date/Time: May 07, 2022 12:28 PM Reporting Lab: [facility] [address] [facility] [address] Performing Lab: [facility] [address] [facility] [address] WBC 16.29 H 4.0-11.0 RBC 3.38 L 4.6-6.2 HGB 10.5 L 13.5-17.9 HCT 32.0 L 41-54 MCV 94.7 80-100 MCH 31.1 27-33 MCHC 32.8 32.0-37.5 PLT 200 150-400 MPV 11.2 H 7.4-10.4 NEUT 88.5 LYMPHS 4.4 MONO 5.3 BASO 0.2 RDW 14.6 H 11.5-14.5 ABS LYMPH 0.72 L 1.0-4.0 ABS MONO 0.86 0.1-1.0 ABS NEUT 14.42 H 2.0-7.7 ABS BASO 0.03 0-0.2 IG(META,MYELO,PRO) 1.6 ABS IMMATURE GRAN 0.26 H 0-0.1 May 08, 2022 [facility] PROTHROMBIN TIME/INR Specime n Type: PLASMA 07:25 AM No comment enter ed. Ordering Provid er: BETO AYALA Report Released Date/Time: May 07, 2022 12:28 PM Reporting Lab: [facility] [address] [address] Performing Lab: [facility] [id number] .INR 1.2 H 0.8-1.1 .PT 14.2 H 9.4-12.5 May 08, 2022 [facility] COMPREHENSIVE METABOLIC Spec imen Type: PLASMA 07:25 AM PANEL+MG No comment enter ed. Ordering Provid er: BETO AYALA Report Released Date/Time: May 07, 2022 12:28 PM Reporting Lab: [facility] [address] [facility] [address] Performing Lab: [facility] [address] [facility] [address] CREATININE 1.1 0.7-1.2 UREA NITROGEN 27 H 8-26 GLUCOSE 308 H 70-100 SODIUM 142 136-145 POTASSIUM 3.4 L 3.5-5.1 CHLORIDE 112 H 98-107 CO2 19 L 22-29 CALCIUM 8.2 L 8.4-10.2 PROTEIN,TOTAL 5.4 L 6.0-8.3 ALBUMIN 2.6 L 3.5-5.2 BILIRUBIN, TOTAL 0.8 0.2-1.2 MAGNESIUM 1.9 1.6-2.6 ANION GAP 11 5-15 ALKALINE PHOSPHATASE 98 40-150 ALT/SGPT 30 <55 AST/SGOT 33 <34 CREAT EGFR(CKD-EPI) 65 >60 May 08, 2022 06:53 [facility] FINGERSTICK GLUCOSE Speci men Type: BLOOD AM Comment: Mark casillas Ordering Provid er: CODIE LEON Report Released Date/Time: May 08, 2022 07:18 AM Reporting Lab: [facility] [address] [facility] [phone] Performing Lab: [facility] [address] [facility] [address] FINGERSTICK GLUCOSE 276 H 70-100 May 07, 2022 08:36 [facility] F[place]ERSTICK GLUCOSE Speci men Type: BLOOD PM Comment: Nurse Notified Ordering Provid er: CODIE LEON Report Released Date/Time: May 08, 2022 12:29 AM Reporting Lab: [facility] [address] [facility] [address] Performing Lab: [facility] [address] [facility] [address] FINGERSTICK GLUCOSE 282 H 70-100 May 07, 2022 07:04 PM [facility] LACTIC ACID Specim en Type: PLASMA No comment enter ed. Ordering Provid er: BETO AYALA Report Released Date/Time: May 07, 2022 06:28 PM Reporting Lab: [facility] [address] [facility] [address] Performing Lab: [facility] [address] [facility] [address] LACTIC ACID 2.0 0.5-2.2 May 07, 2022 04:46 [facility] FINGERSTICK GLUCOSE Speci men Type: BLOOD PM Comment: Nurse Notified Ordering Provid er: BETO AYALA Report Released Date/Time: May 07, 2022 05:00 PM Reporting Lab: [facility] [address] [facility] [address] Performing Lab: [facility] [address] [address] [facility] [address] FINGERSTICK GLUCOSE 274 H 70-100 May 07, 2022 12:47 [facility] FINGERSTICK GLUCOSE Speci men Type: BLOOD PM Comment: Mark casillas Nurse Notified Ordering Provid er: BETO AYALA Report Released Date/Time: May 07, 2022 05:32 PM Reporting Lab: [facility] [address] [facility] [address] Performing Lab: [facility] [address] [facility] [address] FINGERSTICK GLUCOSE 309 H 70-100 May 07, 2022 06:35 [facility] FINGERSTICK GLUCOSE Speci men Type: BLOOD AM Comment: Mark casillas Nurse Notified Ordering Provid er: GAYLA DOMINGUEZ Report Released Date/Time: May 07, 2022 06:46 AM Reporting Lab: [facility] [address] [facility] [address] Performing Lab: [facility] [address] [facility] [address] FINGERSTICK GLUCOSE 352 H 70-100 May 07, 2022 06:15 AM [facility] ALBUMIN Specim en Type: PLASMA No comment enter ed. Ordering Provid er: GAYLA DOMINGUEZ Report Released Date/Time: May 06, 2022 06:33 PM Reporting Lab: [facility] [address] [facility] [address] Performing Lab: [facility] [address] [facility] [address] ALBUMIN 3.0 L 3.5-5.2 May 07, 2022 [facility] COMPREHENSIVE METABOLIC Spec imen Type: PLASMA 06:15 AM PANEL+MG No comment enter ed. Ordering Provid er: GAYLA DOMINGUEZ Report Released Date/Time: May 06, 2022 09:11 PM Reporting Lab: [facility] [address] [facility] [address] Performing Lab: [facility] [address] CREATININE 1.2 0.7-1.2 UREA NITROGEN 25 8-26 GLUCOSE 314 H 70-100 SODIUM 140 136-145 POTASSIUM 3.9 3.5-5.1 CHLORIDE 107 98-107 CO2 21 L 22-29 CALCIUM 8.8 8.4-10.2 PROTEIN,TOTAL 5.9 L 6.0-8.3 ALBUMIN 3.0 L 3.5-5.2 BILIRUBIN, TOTAL 1.1 0.2-1.2 MAGNESIUM 2.2 1.6-2.6 ANION GAP 12 5-15 ALKALINE PHOSPHATASE 94 40-150 ALT/SGPT 19 <55 AST/SGOT 9 <34 CREAT EGFR(CKD-EPI) 59 L >60 May 07, 2022 06:15 AM [facility] CBC & DIFF Specim en Type: BLOOD Comment: Manual Differential Performed Ordering Provid er: GAYLA DOMINGUEZ Report Released Date/Time: May 06, 2022 09:11 PM Reporting Lab: [facility] [address] Performing Lab: [facility] [address] WBC 20.25 H 4.0-11.0 RBC 3.54 L 4.6-6.2 HGB 11.2 L 13.5-17.9 HCT 33.6 L 41-54 MCV 94.9 80-100 MCH 31.6 27-33 MCHC 33.3 32.0-37.5 PLT 190 150-400 MPV 10.3 7.4-10.4 NEUT 93.0 LYMPHS 4.0 MONO 2.5 META 0.5 RDW 14.4 11.5-14.5 ABS LYMPH 0.81 L 1.0-4.0 ABS MONO 0.51 0.1-1.0 ABS NEUT 18.83 H 2.0-7.7 ABS META 0.10 .RBC MORPHOLOGY NORMOCYTIC, NORMOCHROMIC May 07, 2022 12:19 AM [facility] LACTIC ACID Specim en Type: PLASMA No comment enter ed. Ordering Provid er: GAYLA DOMINGUEZ Report Released Date/Time: May 06, 2022 07:13 PM Reporting Lab: [facility] [address] Performing Lab: [facility] [address] LACTIC ACID 2.7 H 0.5-2.2 May 06, 2022 10:45 [facility] FINGERSTICK GLUCOSE Speci men Type: BLOOD PM Comment: Mark casillas Nurse Notified Ordering Provid er: GAYLA DOMINGUEZ Report Released Date/Time: May 07, 2022 12:08 AM Reporting Lab: [facility] [address] [facility] [address] Performing Lab: [facility] [address] [facility] [address] FINGERSTICK GLUCOSE 320 H 70-100 May 06, 2022 06:53 [facility] MRSA SURVL NARES Specimen Type: NARES PM DNA No comment enter ed. Ordering Provid er: GAYLA DOMINGUEZ Report Released Date/Time: May 06, 2022 06:33 PM Reporting Lab: [facility] [address] [facility] [address] Performing Lab: [facility] [address] [facility] [address] MRSA SURVL NARES DNA POSITIVE HH Negative May 06, 2022 06:51 PM [facility] LACTIC ACID Specim en Type: PLASMA No comment enter ed. Ordering Provid er: GAYLA DOMINGUEZ Report Released Date/Time: May 06, 2022 06:04 PM Reporting Lab: [facility] [address] [facility] [address] Performing Lab: [facility] [address] [facility] [address] LACTIC ACID 3.1 H 0.5-2.2 May 06, 2022 06:51 [facility] CARDIAC TROPONIN I Specim en Type: PLASMA PM No comment enter ed. Ordering Provid er: GAYLA DOMINGUEZ Report Released Date/Time: May 06, 2022 06:05 PM Reporting Lab: [facility] [address] [facility] [address] Performing Lab: [facility] [address] [facility] [address] CARDIAC TROPONIN I <0.028 <0.028 May 06, 2022 06:51 [facility] EXTRA GOLD GEL TUBE Speci men Type: SERUM PM No comment enter ed. Ordering Provid er: GAYLA DOMINGUEZ Report Released Date/Time: May 06, 2022 06:52 PM Reporting Lab: [facility] [address] [facility] [address] Performing Lab: [facility] [address] [facility] [address] EXTRA GOLD GEL TUBE RECEIVED May 06, 2022 06:51 [facility] C-REACTIVE PROTEIN Specim en Type: PLASMA PM No comment enter ed. Ordering Provid er: GAYLA DOMINGUEZ Report Released Date/Time: May 06, 2022 09:29 PM Reporting Lab: [facility] [address] [facility] [address] Performing Lab: [facility] [address] [facility] [address] C-REACTIVE PROTEIN 392.40 H <5.00 May 06, 2022 10:51 AM [facility] URINALYSIS Specim en Type: URINE No comment enter ed. Ordering Provid er: MODESTA VILLANUEVA Report Released Date/Time: May 06, 2022 10:11 AM Reporting Lab: [facility] [address] [facility] [address] Performing Lab: [facility] [address] [facility] [address] URINE COLOR YELLOW SPECIFIC GRAVITY 1.020 1.003-1.035 URINE BILIRUBIN NEGATIVE NEGATIVE URINE KETONES 1+ NEGATIVE URINE GLUCOSE >1000 <30 URINE PROTEIN 70 <20 URINE PH 5.5 5.0-8.0 URINE WBC/HPF 78 H 0-7 URINE BACTERIA NONE SEEN HYALINE CASTS 1 URINE RBC/HPF 11 H 0-3 APPEARANCE TURBID SQUAMOUS EPITHELIAL <1 URINE BLOOD 2+ NEGATIVE URINE NITRITE NEGATIVE NEGATIVE LEUKOCYTE ESTERASE 500 NEGATIVE May 06, 2022 10:24 [facility] COVID-19 DIAGNOSTIC Speci men Type: NASOPHARYNGEAL AM PANEL (CEPHEID) Comment: Cephei jessica GeneXpert (618) Ordering Provid er: MODESTA VILLANUEVA Report Released Date/Time: May 06, 2022 10:11 AM Reporting Lab: [facility] [address] [facility] [address] Performing Lab: [facility] [address] [facility] [address] COVID-19 (CEPHEID) Not Detected Not Dete cted May 06, 2022 10:20 AM [facility] POC ABG/LACTATE Specim en Type: VENOUS BLOOD No comment enter ed. Ordering Provid er: MODESTA VILLANUEVA Report Released Date/Time: May 06, 2022 10:22 AM Reporting Lab: [facility] [address] [facility] [address] Performing Lab: [facility] [address] [facility] [address] POC PH 7.410 7.31-7.41 POC PCO2 28.9 L 35.00-45.00 POC PO2 82 H 35.0-40.0 POC TCO2 19 L 24.0-29.0 POC HCO3 18.3 L 23.0-28.0 POC BE ECT -6 L -2 POC SO2 96 H 70-75 POC LACTATE 3.62 0.90-1.70 May 06, 2022 10:00 AM [facility] PHOSPHORUS Specim en Type: PLASMA No comment enter ed. Ordering Provid er: MODESTA VILLANUEVA Report Released Date/Time: May 06, 2022 10:11 AM Reporting Lab: [facility] [address] [facility] [address] Performing Lab: [facility] [address] [facility] [address] PHOSPHORUS 2.5 2.3-4.7 May 06, 2022 10:00 [facility] ACT PART THROMBO TIME Spe cimen Type: PLASMA AM No comment enter ed. Ordering Provid er: MODESTA VILLANUEVA Report Released Date/Time: May 06, 2022 10:11 AM Reporting Lab: [facility] [address] [facility] [address] Performing Lab: [facility] [address] [facility] [address] APTT 37.8 H 25.1-36.5 May 06, 2022 10:00 [facility] PROTHROMBIN TIME/INR Spec imen Type: PLASMA AM No comment enter ed. Ordering Provid er: MODESTA VILLANUEVA Report Released Date/Time: May 06, 2022 10:11 AM Reporting Lab: [facility] [address] [facility] [address] Performing Lab: [facility] [address] [facility] [address] .INR 2.5 H 0.8-1.1 .PT 29.2 H 9.4-12.5 May 06, 2022 10:00 [facility] CARDIAC TROPONIN I Specim en Type: PLASMA AM Comment: Critic al Value Reported To: BROOKS COTE 05-06-2022 @1053 BY MBB. Critical value report confirmed. Ordering Provid er: MODESTA VILLANUEVA Report Released Date/Time: May 06, 2022 10:11 AM Reporting Lab: [facility] [address] [facility] [address] Performing Lab: [facility] [address] [facility] [address] CARDIAC TROPONIN I 0.035 HH <0.028 May 06, 2022 10:00 AM [facility] PROCALCITONIN Specim en Type: PLASMA No comment enter ed. Ordering Provid er: MODESTA VILLANUEVA Report Released Date/Time: May 06, 2022 10:11 AM Reporting Lab: [facility] [address] [facility] [address] Performing Lab: [facility] [address] [facility] [address] PROCALCITONIN 22.29 H <0.09 May 06, 2022 10:00 AM [facility] LIPASE Specim en Type: PLASMA No comment enter ed. Ordering Provid er: MODESTA VILLANUEVA Report Released Date/Time: May 06, 2022 10:11 AM Reporting Lab: [facility] [address] [facility] [address] Performing Lab: [facility] [address] [facility] [address] LIPASE <4 <60 May 06, 2022 [facility] COMPREHENSIVE METABOLIC Spec imen Type: PLASMA 10:00 AM PANEL+MG Comment: Manual Differential Performed Ordering Provid er: MODESTA VILLANUEVA Report Released Date/Time: May 06, 2022 10:11 AM Reporting Lab: [facility] [address] [facility] [address] Performing Lab: [facility] [address] [facility] [address] CREATININE 1.3 H 0.7-1.2 UREA NITROGEN 25 8-26 GLUCOSE 410 H 70-100 SODIUM 137 136-145 POTASSIUM 4.1 3.5-5.1 CHLORIDE 107 98-107 CO2 17 L 22-29 CALCIUM 9.0 8.4-10.2 PROTEIN,TOTAL 6.1 6.0-8.3 ALBUMIN 3.1 L 3.5-5.2 BILIRUBIN, TOTAL 1.2 0.2-1.2 MAGNESIUM 1.5 L 1.6-2.6 ANION GAP 13 5-15 ALKALINE PHOSPHATASE 119 40-150 ALT/SGPT 23 <55 AST/SGOT 9 <34 CREAT EGFR(CKD-EPI) 54 L >60 May 06, 2022 10:00 [facility] EXTRA GOLD GEL TUBE Speci men Type: SERUM AM No comment enter ed. Ordering Provid er: LINNEA RAND Report Released Date/Time: May 06, 2022 10:25 AM Reporting Lab: [facility] [address] [facility] [address] Performing Lab: [facility] [address] [facility] [address] EXTRA GOLD GEL TUBE RECEIVED May 06, 2022 10:00 AM [facility] CBC & DIFF Specim en Type: BLOOD Comment: Manual Differential Performed Ordering Provid er: MODESTA VILLANUEVA Report Released Date/Time: May 06, 2022 10:11 AM Reporting Lab: [facility] [address] [facility] [address] Performing Lab: [facility] [address] [facility] [address] WBC 18.82 H 4.0-11.0 RBC 3.70 L 4.6-6.2 HGB 11.6 L 13.5-17.9 HCT 35.0 L 41-54 MCV 94.6 80-100 MCH 31.4 27-33 MCHC 33.1 32.0-37.5 PLT 209 150-400 MPV 11.0 H 7.4-10.4 NEUT 97.0 LYMPHS 1.5 RDW 14.6 H 11.5-14.5 MONO 1.0 MYELO 0.5 NORMOCYTIC YES NORMOCHROMIC YES ABS LYMPH 0.28 L 1.0-4.0 ABS MONO 0.19 0.1-1.0 ABS NEUT 18.26 H 2.0-7.7 ABS MYELO 0.09 .RBC MORPHOLOGY PRESENT May 06, 2022 09:46 [facility] FINGERSTICK GLUCOSE Speci men Type: BLOOD AM Comment: Mark casillas Nurse Notified Ordering Provid er: MODESTA VILLANUEVA Report Released Date/Time: May 06, 2022 09:59 AM Reporting Lab: [facility] [address] [facility] [address] Performing Lab: [facility] [address] [facility] [address] FINGERSTICK GLUCOSE 369 H 70-100 Apr 30, 2022 09:17 AM [facility] CBC Specim en Type: BLOOD No comment enter ed. Ordering Provid er: BILL ROONEY Report Released Date/Time: Apr 30, 2022 08:21 AM Reporting Lab: [facility] [address] [facility] [address] Performing Lab: [facility] [address] [facility] [address] WBC 10.40 4.0-11.0 RBC 3.96 L 4.6-6.2 HGB 12.3 L 13.5-17.9 HCT 37.8 L 41-54 MCV 95.5 80-100 MCH 31.1 27-33 MCHC 32.5 32.0-37.5 PLT 286 150-400 MPV 10.1 7.4-10.4 RDW 14.6 H 11.5-14.5 Apr 30, 2022 [facility] BASIC METABOLIC Specimen Typ e: PLASMA 09:17 AM PANEL+MG No comment enter ed. Ordering Provid er: BILL ROONEY Report Released Date/Time: Apr 30, 2022 08:21 AM Reporting Lab: [facility] [address] Performing Lab: [facility] [address] CREATININE 1.2 0.7-1.2 UREA NITROGEN 26 8-26 GLUCOSE 140 H 70-100 SODIUM 138 136-145 POTASSIUM 3.8 3.5-5.1 CHLORIDE 107 98-107 CO2 20 L 22-29 CALCIUM 9.4 8.4-10.2 MAGNESIUM 1.7 1.6-2.6 ANION GAP 11 5-15 CREAT EGFR(CKD-EPI) 59 L >60 Apr 02, 2022 02:37 PM [facility] B 12 Specim en Type: SERUM No comment enter ed. Ordering Provid er: MADISON SOL Report Released Date/Time: Apr 02, 2022 02:05 PM Reporting Lab: [facility] [address] [facility] [address] Performing Lab: [facility] [address] [facility] [address] B 12 [phone] Apr 02, 2022 [facility] LIVER FUNCTION TESTS Specime n Type: PLASMA 02:37 PM No comment enter ed. Ordering Provid er: MADISON SOL O Report Released Date/Time: Apr 02, 2022 02:05 PM Reporting Lab: [facility] [address] Performing Lab: [facility] [address] BILIRUBIN, TOTAL 0.5 0.2-1.2 ALKALINE PHOSPHATASE 108 40-150 ALT/SGPT 24 <55 AST/SGOT 18 <34 GAMMA GTP 34 <64 Apr 02, 2022 02:37 PM [facility] AMMONIA Specim en Type: PLASMA No comment enter ed. Ordering Provid er: MADISON SOL Report Released Date/Time: Apr 02, 2022 02:05 PM Reporting Lab: [facility] [address] [facility] [address] Performing Lab: [facility] [address] [facility] [address] AMMONIA <14 <72 Apr 02, 2022 [facility] METHYLMA ACID, [facility] Specime n Type: SERUM 02:37 PM Comment: This t est was developed and its analytical performance characteristics have been determined by [employer] [place], [place]. It has not been cleared or approved by the U.S . Food and Drug Administration. This assay has been validated pursuant to the CLIA regulations and is used for clinical purposes. Test Performed by [facility], [facility], [address] [place] [address] Domenic Miller M.D., Ph.D., Director of Laboratories , CLIA [id number] Ordering Provid er: MADISON SOL Report Released Date/Time: Apr 02, 2022 04:37 PM Reporting Lab: [facility] [address] [facility] [address] Performing Lab: [address] METHYLMA ACID, [place] 406 H 05-318 Social History: Smoking Status (Most current) and Tobacco Use (All prior to encounter date) This section includes the most current, and the historical, smoking and tobacco-related health factors from the [place] facility where the Encounter took place.Current Smoking Status This section includes the most current smoking, or tobacco-related health factor, from the [place] facility where the Encounter took place. Date/Time Current Smoking Status Comment Facility Feb 02, 2022 09:30 AM MS-TOBACCO NEVER USED [facility] Tobacco Use History This section includes a history of the smoking, or tobacco- related health factors, that were collected on or before the date of the Encounter. The data comes from the [place] facility where the Encounter took place. Date/Time Smoking Status/Tobacco Use Comment Xavi chanel Mar 22, 2021 07:45 AM [place]-TOBACCO NEVER USED [place] [facility] Oct 02, 2019 10:02 AM VA-TOBACCO NEVER USED [place] [facility] May 21, 2018 09:05 AM MS-TOBACCO NEVER USED [place] [facility] December 25, 2017 06:14 PM INPT NO TOBACCO USE IN LAST 30 DAYS [facility] Oct 01, 2017 07:34 AM LIFETIME NON-TOBACCO USER [facility] Sep 28, 2016 08:44 AM LIFETIME NON-TOBACCO USER [facility] Oct 14, 2015 07:52 AM LIFETIME NON-TOBACCO USER [facility] Oct 11, 2014 07:59 AM LIFETIME NON-TOBACCO USER [facility] January 15, 2007 07:55 AM LIFETIME NON-TOBACCO USER [facility] Advance Directives: All historical and current Section Date Range: From patient's date of to the date document was created. This section includes ALL of a patient's completed or amended [place] Advance and Rescinded Directives. The entries below indicate that a directive exists for the patient, but an actual copy is not included with this document. The data comes from all [facility]. Date Advance Directives Provider Source Apr 18, 2018 ADVANCE DIRECTIVE JOVONLARISSA [facility] Apr 18, 2018 ADVANCE DIRECTIVE DISCUSSION LARISSA SIGALA [facility] December 23, 2017 CLINICAL WARNING FARHAT [facility] May 11, 2003 ADVANCE DIRECTIVE BERT CASILLAS [facility] Radiology Reports: +/- 30 days of [...] the Encounter. The data comes from all [place] treatment facilities. Date/Time Radiology Report Provider Source May 11, 2022 09:46 CHEST 1 VIEW: SONJA OVALLES [facility] LU[facility] EDDY [id number] -1935 M Ex Date: MAY 11, 2022@09:46 Req Phys: CODIE LEON Loc: OP Unknown /05-13-2022@05:05 Img Loc: MAIN X-RAY Service: PRIMARY CARE - [facility] OFFICE (Case [id number] COMPLETE) CHEST 1 VIEW (RAD Detailed) CPT:41471 Proc Modifiers : PORTABLE EXAM Reason for Study: resp distress Clinical History: IS NOT under investigation for COVID-19 or is COVID-19 negative Respiratory distress Responsible provider name and phone number to notify for critical findings if other than u ser placing the order and pager listed below: User placing orde rs pager: [phone] cell LAST CREATININE 1.6 H (05/11/22) Report Status: Verified Date Reported: MAY 11, 2022 Date Verified: MAY 11, 2022 Generating Station Mechanic E-Sig:/ES/SONJA OVALLES MD Report: CHEST 1 VIEW 05/11/2022 9:46 AM HISTORY: Respiratory distress. TECHNIQUE: AP upright portable view of the ches t (initial view was repeated to include the left lateral base). COMPARISON: 05/08/2022. Impression: FINDINGS/IMPRESSION: The left portion of the pa tient's chest is rotated anteriorly. Allowing for this change in patient positioning, the cardiomediastinal silhouette h as not significantly changed, including mild to modera te cardiomegaly. There has been no definite interval change in m oderate bibasilar pleural-parenchymal opacities, with persistent accompanying obscuration of the right and left diaphragm. Th eliza findings correspond to moderate right greater than left pleural effusions and mild to moderate adjacent bibasilar gia sive atelectasis demonstrated on the interval thoracic spine CT dated 05/08/2022. The upper lungs are clear. Primary Interpreting Staff: SONJA OVALLES MD, RADIOLOGIST (Generating Station Mechanic) /CDC May 10, 2022 03:49 CT HEAD (P): RADIOLOGY,OUTSIDE [facility] PM LUISANA EDDY [id number] -1935 M SERVICE Exm Date: MAY 10, 2022@15:49 Req Phys: CODIE LEON Loc: OP Unknown /05-13-2022@05:05 Img Loc: CT IMAGING Service: PRIMARY CARE - MED OFFICE (Case [id number] COMPLETE) CT HEAD/BRAIN W/O CONTRAST (CT Detailed) CPT:56546 Reason for Study: CHANGE IN MENTAL STATUS Clinical History: CHANGE IN MENTAL STATUS. ORDER ADMINISTRATIVELY ENTERED FOLLOWING SYSTEM OUTAGE. Report Status: Verified Date Reported: MAY 10, 2022 Date Verified: MAY 10, 2022 Generating Station Mechanic E-Sig: Report: CT HEAD/BRAIN W/O CONTRAST [PRINTSET] HISTORY: Change in mental status. COMPARISON: CT from 05/07/2022. TECHNIQUE: Contiguous axial CT images from the level of the skull base through the skull apex, with coronal and s agittal reformats, performed at the local [place] facility. 321 images were received by the [place] National Teleradiology Program (NTP) for interpretation. RADIATION DOSE (mGy*cm): 855 IV CONTRAST: None administered. FINDINGS: Intracranial Hemorrhage: No acute intracranial hemorrhage. Brain Parenchyma: No evidence of an evolving co rtical infarction. The royal-white differentiation is preserved. Ar eas of hypoattenuation of the periventricular and subc ortical white matter are again noted and appear similar in ex tent compared to the prior study. 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 No intracrani al mass effect. Extraaxial Spaces: The ventricles and sulci are unchanged in size. The basilar cisterns are patent. Cerebral Vasculature: Atherosclerotic calcifica tions have not progressed since the prior study. Orbits: There is no evidence of an acute intrao rbital abnormality. Sinuses: There is mild mucosal thickening of th e included paranasal sinuses. Calvarium and Skull Base: No depressed calvaria l fracture. Mastoid air cells and middle ears are well-aera nola. Scalp: The soft tissues are within normal limit s. Impression: 1. No acute intracranial abnormality. 2. Chronic processes as detailed in the finding s section, similar compared to the prior study. READING PHYSICIAN: Akash Mccoy M.D. -[id number] 05/10/2022 17:35 PDT [facility] National Teleradiology Program [phone] (For Medical Practitioner Use Only ) Attention Patients / Veterans: If you have ques tions or concerns about these test results, [facility] or [facility] team. Primary Interpreting Staff: RADIOLOGY,OUTSIDE SERVICE, Staff Physician / May 08, 2022 07:45 CT T-SPINE (P): RADIOLOGY,OUTSIDE [facility] LUISANA EDDY [id number] -1935 M SERVICE Exm Date: MAY 08, 2022@19:45 Req Phys: MALINICODIE GOOD Chantal Loc: OP Unknown /05-13-2022@05:05 Img Loc: CT IMAGING Service: PRIMARY CARE - MED OFFICE (Case [id number] COMPLETE) CT SPINE THORACIC W/O CONTR AST (CT Detailed) CPT:85095 Reason for Study: mrsa bacteremia, spinal surge ry - r/o abscess or discitis Clinical History: Geraldine IS NOT under investigation for COVID-19 or is COVID-19 negative Defer to radiologist for final CT protocol. Responsible provider name and phone number to n otify for critical findings if other than user placing the order a nd pager listed below: User placing orders pager: [phone] LAST 3: Collection DT Specimen Test Name Result Units Ref Range 05/08/2022 05:30 PLASMA CREATIN INE 1.1 mg/dL 0.7 - 1.2 05/07/2022 05:30 PLASMA CREATININE 1.2 mg/dL 0.7 - 1.2 05/06/2022 10:00 PLASMA CREATININE 1.3 H mg/dL 0.7 - 1.2 05/08/2022 05:30 PLASMA CREAT EGFR(CKD-EP 6 5 Ref: >=60 05/07/2022 05:30 PLASMA CREAT EGFR(CK D-EP 59 L Ref: >=60 05/06/2022 10:00 PLASMA CREAT EGFR(CKD-EP 54 L Ref: >=60 09/20/2021 06:38 PLASMA ESTIMATED GFR(eGF 38 L Ref: >=60 06/21/2021 06:43 PLASMA ESTIMATED GFR(eGF 48 L Ref: >=60 03/22/2021 06:50 PLASMA ESTIMATED GFR (eGF 44 L Ref: >=60 Allergies: ([place] only) SIMVASTATIN (Feb 29, 2004) CEPHALEXIN (Mar 01, 2004) Report Status: Verified Date Reported: MAY 08, 2022 Date Verified: MAY 08, 2022 Generating Station [employer] E-Sig: Report: CT SPINE THORACIC W/O CONTRAST [PRINTSET] HISTORY:MRSA bacteremia NUMBER OF IMAGES:[id number] COMPARISON: Correlation with images from recent CT abdomen and pelvis May 06, 2022 TECHNIQUE: A non contrast CT of the thoracic sp ine was performed at the local [facility]. Images were subsequently sent to [facility] for interpretation. Axial, coronal and sagittal reformats were obta ined. Total DLP: 2483 mGy*cm. IV contrast: None FINDINGS: On the CT abdomen and pelvis study there was a compression fracture described and this was designated to b e T10. However when designating the lowest rib bearing segment as the T12 vertebral body, the compressed segment is T11. The appearance of this T11 compression fracture s not significant changed and has lost approximately 6% of height and has a vacuum cleft phenomenon within the vertebral body as w ell as vacuum disc of the T10-11 disc above and the T11-12 disc be low. Both endplates show compression but there is no retr opulsion into the spinal canal. There is mild compression of the superior endpl ate of T12 which is loss less than 20% of height. Returning to more rostral levels, there is a mi ld compression of the superior endplates of T6 and T7 which each have lost approximately 20-30% of height, this appears ch ronic. There are bridging osteophytes from level T2-3 level T9-10. Disks and Central Canal: No disc herniation or canal stenosis from level T1-2 through level T9-T10. T11-12: Mild canal stenosis caused by calcifica tion of the ligamentum flavum. No disc herniation identifie d. T11 is the compressed segment. T11-12: Possible disc herniation and moderate c entral canal stenosis at level T11-12 although soft tissue d etail is quite limited, exclusion of a disc herniation and sig nificant canal stenosis at this level would require MRI or CT myelography see axial image 134 series #3. T12-L1, no central canal stenosis. Soft tissues: There is no evidence of any preve rtebral soft tissue mass is no evidence of any erosive campa es to the disc spaces, thus no CT evidence of discitis or oste omyelitis within the thoracic spine. There is a large right and moderate sized left pleural fluid collection Impression: Severe compression of T11 involving the superio r and inferior endplates is vertebral having lost approximatel y 60% of its height. There is no retropulsion of bony fragme nts into the spinal canal. At level T11-12 there is a possible disc hernia tion with moderate central canal stenosis although soft tissue det ail is limited and these findings are of uncertain validity. There is no evidence of a discitis or osteomyel itis at any thoracic level. READING PHYSICIAN: Luisana Webb MD [phone] 05/08/2022 19:20 PDT [facility] [employer] [facility] [phone] (For Medical Practitioner Use Only ) Attention Patients / Veterans: If you have ques tions or concerns about these test results, please contact your o [facility] provider or primary care team. Primary Interpreting Staff: RADIOLOGY,OUTSIDE SERVICE, Staff Physician / May 08, 2022 04:48 CHEST 1 VIEW: RADIOLOGY,OUTSIDE [facility] PM LUISANA EDDY [id number] -1935 M SERVICE Exm Date: MAY 08, 2022@16:48 Req Phys: CODIE LEON Loc: OP Unknown /05-13-2022@05:05 Img Loc: MAIN X-RAY Service: PRIMARY CARE - MED OFFICE (Case [id number] COMPLETE) CHEST 1 VIEW (RAD Detailed) CPT:61905 Proc Modifiers : PORTABLE EXAM Reason for Study: dyspnea Clinical History: Geraldine IS NOT under investigation for COVID-19 or is COVID-19 negative acute worsening of dyspnea Responsible provider name and phone number to notify for critical findings if other than user placing the order and pager listed below: User placing orders pager: [phone] malini cell [phone] LAST CREATININE 1.1 (05/08/22) Report Status: Verified Date Reported: MAY 08, 2022 Date Verified: MAY 08, 2022 Generating Station Mechanic E-Sig: Report: CHEST 1 VIEW HISTORY: dyspnea COMPARISON: 05/06/2022 TECHNIQUE: Frontal view(s) of the chest, submit nola to the [place] National Teleradiology Program (NTP) for interp retation. FINDINGS: Reduced lung volumes. Progressive cardiomegaly, and vascular congestion as well as diffuse interstitial prom inence with probable small effusions. Impression: Expiratory exam with findings of CHF and mild e santa READING PHYSICIAN: Nghia Menjivar M.D. -[phone] 05/08/2022 18:57 EDT [facility] [employer] [facility] [phone] (For Medical Practitioner Use Only ) Attention Patients / Veterans: If you have ques tions or concerns about these test results, please contact your o rdering provider or primary care team. Primary Interpreting Staff: RADIOLOGY,OUTSIDE SERVICE, Staff Physician / May 07, 2022 10:29 CT HEAD (P): SHANI PLOANCO [facility] AM LUISANA EDDY [id number] -1935 M Exm Date: MAY 07, 2022@10:29 Req Phys: LUCY,BETO Chantal Loc: OP Unknown/0 05-13-2022@05:05 Img Loc: CT IMAGING Service: PRIMARY CARE - MED OFFICE (Case [id number] COMPLETE) CT HEAD/BRAIN W/O CONTRAST ( CT Detailed) CPT:26834 Reason for Study: seizure noted at O[facility] Clinical History: Geraldine IS NOT under investigation for COVID-19 or is COVID-19 negative Defer to radiologist for final CT protocol. Responsible provider name and phone number to n otify for critical findings if other than user placing the order a nd pager listed below: User placing orders pager: [phone] LAST 3: Collection DT Specimen Test Name Result Units Ref Range 05/07/2022 05:30 PLASMA CREATIN INE 1.2 mg/dL 0.7 - 1.2 05/06/2022 10:00 PLASMA CREATININE 1.3 H mg/dL 0.7 - 1.2 04/30/2022 09:17 PLASMA CREATININE 1.2 mg/dL 0.7 - 1.2 05/07/2022 05:30 PLASMA CREAT EGFR(CKD-EP 5 9 L Ref: >=60 05/06/2022 10:00 PLASMA CREAT EGFR(CK D-EP 54 L Ref: >=60 04/30/2022 09:17 PLASMA CREAT EGFR(CKD-EP 59 L Ref: >=60 09/20/2021 06:38 PLASMA ESTIMATED GFR(eGF 38 L Ref: >=60 06/21/2021 06:43 PLASMA ESTIMATED GFR(eGF 48 L Ref: >=60 03/22/2021 06:50 PLASMA ESTIMATED GFR (eGF 44 L Ref: >=60 Allergies: ([place] only) SIMVASTATIN (Feb 29, 2004) CEPHALEXIN (Mar 01, 2004) Report Status: Verified Date Reported: MAY 07, 2022 Date Verified: MAY 07, 2022 Generating Station Mechanic E-Sig:/ES/SHANI POLANCO MD Report: EXAM: CT HEAD/BRAIN W/O CONTRAST HISTORY: seizure noted at OSH Reason for Study: seizure noted at OSH IS NOT under investigation for COVID-19 or is COVID-19 negative Defer to radiologist for final CT prot ocol. Responsible provider name and phone number to notify for cr itical findings if other than user placing the order and pager lis nola below: User placing orders pager: [phone] LAST 3: Collecti on DT Specimen Test Name Result U COMPARISON: Noncontrast head CT May 06 022. TECHNIQUE: Routine axial noncontrast acquisitio n. Routine sagittal and coronal reconstructions. FINDINGS: Hypodense white matter and cerebral h emispheres consistent with small vessel ischemia is relati vely stable. Remaining brain parenchyma is within normal hermosillo its. No evidence of intracranial hemorrhage, intracranial mass e ffect or hydrocephalus. Mild mucosal thickening at the i zeenat paranasal sinuses consistent with chronic sinusitis. This is grossly stable. Skull is within limits. Impression: 1. Mild small vessel ischemia. This is relative ly stable. 2. 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 Primary Interpreting Staff: SHANI POLANCO MD, RADIOLOGIST (Generating Station Mechanic) /Javed May 06, 2022 11:40 CHEST 1 VIEW: RADIOLOGY,OUTSIDE [facility] LUISANA STERLING [id number] -1935 M SERVICE Exm Date: MAY 06, 2022@11:40 Req Phys: MODESTA VILLANUEVA Pat Loc: [facility] EMERGENCY DEPT WALK-IN (Re Img Loc: MAIN X-RAY Service: Unknown (Case 73 COMPLETE) CHEST 1 VIEW (RAD Detailed) C PT:65108 Proc Modifiers : PORTABLE EXAM Reason for Study: fever, back pain Clinical History: Reason for Exam: Severe Sepsis Pathway to Evalu ate Volume Status and Source of Sepsis Geraldine IS under investigation (PUI) for COVID- 19 or is COVID-19+ 86 yo M with fever, back pain Responsible provi violeta name and phone number to notify for critical findings if other than user placing the order and pager listed below: User placing orders pager: [phone] LAST CREATININE 1.2 (04/30/22) Report Status: Verified Date Reported: MAY 06, 2022 Date Verified: MAY 06, 2022 Generating Station Mechanic E-Sig: Report: Technique: Frontal chest. No comparison Impression: Cardiac silhouette is mildly enlarged. There is mild pulmonary venous congestion. No definite pleural effusion . No pneumothorax seen. READING PHYSICIAN: Vern Donnelly M.D. -[phone] 07 05/06/2022 13:26 EDT [facility] National Teleradiology Program [phone] (For Medical Practitioner Use Only ) Attention Patients / Veterans: If you have ques tions or concerns about these test results, please contact your o rdering provider or primary care team. Primary Interpreting Staff: RADIOLOGY,OUTSIDE SERVICE, Staff Physician / May 06, 2022 10:36 CT (AP) ABDOMEN/PELVIS (P): RADIOLOGY,OUTSIDE [facility] LUISANA EDDY [id number] -1935 M SERVICE Exm Date: MAY 06, 2022@10:36 Req Phys: MODESTA VILLANUEVA Loc: [facility] EMERGENCY DEPT WALK-IN (Re Img Loc: CT IMAGING Service: Unknown (Case 66 COMPLETE) CT (AP) ABDOMEN/PELVIS W CONT RAST(CT Detailed) CPT:64823 Reason for Study: fever, back pain Clinical History: fever, back pain, ecchymosis left low back consideration for intra-abdominal process, aort ic changes, LS spine trauma, kidney inflammation, GI or obs truction IS under investigation (PUI) for COVID- 19 or is COVID-19+ Defer to radiologist for final CT protocol. Please enter pertinent clinical history on the next page. Responsible provider name and phone number to n otify for critical findings if other than user placing the order a nd pager listed below: User placing orders pager: [phone] LAST 3: Collection DT Specimen Test Name Result Units Ref Range 04/30/2022 09:17 PLASMA CREATIN INE 1.2 mg/dL 0.7 - 1.2 02/02/2022 11:29 PLASMA CREATININE 1.7 H mg/dL 0.7 - 1.2 09/20/2021 06:38 PLASMA CREATININE 1.7 H mg/dL 0.7 - 1.2 04/30/2022 09:17 PLASMA CREAT EGFR(CKD-EP 5 9 L Ref: >=60 02/02/2022 11:29 PLASMA CREAT EGFR(CK D-EP 39 L Ref: >=60 09/20/2021 06:38 PLASMA ESTIMATED GFR(eGF 38 L Ref: >=60 06/21/2021 06:43 PLASMA ESTIMATED GFR(eGF 48 L Ref: >=60 03/22/2021 06:50 PLASMA ESTIMATED GFR(eGF 44 L Ref: >=60 Allergies: ([place] only) SIMVASTATIN (Feb 29, 2004) CEPHALEXIN (Mar 01, 2004) To see allergies from all [facility] locations click Re ports tab>Remote Data>All Available Sites>Clinical Reports>Aller gies. Report Status: Verified Date Reported: MAY 06, 2022 Date Verified: MAY 06, 2022 Generating Station Mechanic E-Sig: Report: Exam: CT (AP) ABDOMEN/PELVIS W CONTRAST [PRINTS ET] Clinical History: fever, back pain Number of images: 918 Comparison: No priors available Technique: The study was protocoled and supervi [facility] local [facility] of the abdomen and pelvis was performed afte r the uneventful administration of iodinated contrast. Images we re received by the [place] National Teleradiology Program (NTP) for interpretation. Total DLP (mGy*cm): 4057 Contrast type and dose: 99 cc of Omnipaque 350 Findings: Motion artifact limits the exam. Lung bases: Small left pleural effusion with ov erlying atelectasis. Trace bibasal, peripheral predomin ant scarring. Mild pericardial effusion. Liver: Unremarkable. Gall bladder: Mildly distended with cholelithiasis. Pericholecystic haziness. Stomach/duodenum: Unremarkable. Spleen: Unremar kable. Pancreas: Atrophic. Adrenals: Unremarkable. Kid neys: Atrophic with left renal hypodensities, likely cysts. No hydronephrosis or renal calculi. Bowel: Diverticulosis without surrounding inflammation. Non dilated bowel. Vascular struc tures: Moderate atherosclerotic calcification of the aorta. Lym ph nodes: Unremarkable. Bladder: Horton catheter with expe cted intraluminal gas. Reproductive organs: Markedly enlarged pro state with median lobe hypertrophy. Osseus structures: Multilevel compression deformities, most severe at T10 where there is vertebral body gas, gas within the flank and intervertebral di sc spaces, and mild prevertebral inflammation. Other findings: Small fat-containing bilateral inguinal hernias, left greater than right.Small fat-containing umbilical hernia. Impression: -The exam is limited by motion artifact. -Distended gallbladder with cholelithiasis. The pericholecystic haziness may represent sequelae of motion artif act or inflammation. -Severe vertebral body compression deformity at T10 with mild prevertebral inflammation and gas within the co llapsed vertebral body as well as in the flanking intervertebral disc spaces. While these findings may represent sequelae of acute or subacute compression fracture, cannot exclude osteomyeli tis/discitis. Recommend clinical correlation and if warranted MR spine with contrast. -Small left pleural effusion with overlying ate lectasis. -Ancillary findings, above. READING PHYSICIAN: Eduin Donaldson M.D. -[phone] 05/06/2022 12:48 [facility] kwiryradiology Program [phone] (For Medical Practitioner Use Only ) Attention Patients / Veterans: If you have ques tions or concerns about these test results, please [facility] or primary care team. Primary Interpreting Staff: RADIOLOGY,OUTSIDE SERVICE, Staff Physician / May 06, 2022 10:35 CT HEAD/BRAIN W/O CONTRAST: RADIOLOGY,OUTSIDE [facility] AM LUISANA EDDY [id number] -1935 M SERVICE Ex Date: MAY 06, 2022@10:35 Req Phys: MODESTA VILLANUEVA Loc: [facility] EMERGENCY DEPT WALK-IN (Re Img Loc: CT IMAGING Service: Unknown (Case 64 COMPLETE) CT HEAD/BRAIN W/O CONTRAST (C T Detailed) CPT:41748 Reason for Study: falls, blood thinner, AMS, se izure Clinical History: falls, blood thinner, AMS, seizure IS under investigation (PUI) for COVID- 19 or is COVID-19+ Defer to radiologist for final CT protocol. Responsible provider name and phone number to n otify for critical findings if other than user placing the order a nd pager listed below: User placing orders pager: [phone] LAST 3: Collection DT Specimen Test Name Result Units Ref Range 04/30/2022 09:17 PLASMA CREATIN INE 1.2 mg/dL 0.7 - 1.2 02/02/2022 11:29 PLASMA CREATININE 1.7 H mg/dL 0.7 - 1.2 09/20/2021 06:38 PLASMA CREATININE 1.7 H mg/dL 0.7 - 1.2 04/30/2022 09:17 PLASMA CREAT EGFR(CKD-EP 5 9 L Ref: >=60 02/02/2022 11:29 PLASMA CREAT EGFR(CK D-EP 39 L Ref: >=60 09/20/2021 06:38 PLASMA ESTIMATED GFR(eGF 38 L Ref: >=60 06/21/2021 06:43 PLASMA ESTIMATED GFR(eGF 48 L Ref: >=60 03/22/2021 06:50 PLASMA ESTIMATED GFR(eGF 44 L Ref: >=60 Allergies: ([place] only) SIMVASTATIN (Feb 29, 2004) CEPHALEXIN (Mar 01, 2004) To see allergies from all [facility] locations click Re ports tab>Remote Data>All Available Sites>Clinical Reports>Aller gies. Report Status: Verified Date Reported: MAY 06, 2022 Date Verified: MAY 06, 2022 Generating Station Mechanic E-Sig: Report: CT HEAD/BRAIN W/O CONTRAST Clinical History: falls, blood thinner, AMS, se izure Number of Images: 532 Comparison: 03/12/2022 Technique: The study was protocoled and supervi sed [facility] the local [facility]. CT of the head without contrast. I mages were subsequently received by the [place] [facility] Tel[facility] di[facility] Program (NTP) for interpretation. Total DLP (mGy*cm): 4057 Findings: Motion artifact significantly limits the exam. No acute intracranial hemorrhage. No mass effec t or midline shift. No extra-axial fluid collection. Mild pe riventricular white matter hypodensity. Moderate generalized cortical volume loss with widening of the sulci. There are intr acranial vascular calcifications. The paranasal sinuses and mastoid air cells are clear. The orbits and globes appear intact. Bilateral shyam ract replacement lenses. The bones and soft tissues of the scalp are unremarkable. Impression: -Significantly limited exam from motion artifac t. -Given this limitation, no acute intracranial C T findings. READING PHYSICIAN: Eduin Donaldson M.D. -[phone] 05/06/2022 12:30 [facility] National Teleradiology Program [phone] (For Medical Practitioner Use Only ) Attention Patients / Veterans: If you have ques tions or concerns about these test results, please contact [facility] or primary care team. Primary Interpreting Staff: RADIOLOGY,OUTSIDE SERVICE, Staff Physician / May 06, 2022 10:35 CT CERVICAL SPINE W/O CONTRAST: RADIOLOGY,OUT SIDE [facility] AM LUISANA EDDY [id number] -1935 M SERVICE Exm Date: MAY 06, 2022@10:35 Req Phys: MODESTA VILLANUEVA Loc: [facility] EMERGENCY DEPT WALK-IN (Re Img Loc: CT IMAGING Service: Unknown (Case 65 COMPLETE) CT CERVICAL SPINE W/O CONTRAS T (CT Detailed) CPT:33050 Reason for Study: falls, blood thinner, AMS, se izure Clinical History: falls, blood thinner, AMS, seizure Geraldine IS under investigation (PUI) for COVID- 19 or is COVID-19+ Defer to radiologist for final CT protocol. Responsible provider name and phone number to n otify for critical findings if other than user placing the order a nd pager listed below: User placing orders pager: [phone] LAST 3: Collection DT Specimen Test Name Result Units Ref Range 04/30/2022 09:17 PLASMA CREATIN INE 1.2 mg/dL 0.7 - 1.2 02/02/2022 11:29 PLASMA CREATININE 1.7 H mg/dL 0.7 - 1.2 09/20/2021 06:38 PLASMA CREATININE 1.7 H mg/dL 0.7 - 1.2 04/30/2022 09:17 PLASMA CREAT EGFR(CKD-EP 5 9 L Ref: >=60 02/02/2022 11:29 PLASMA CREAT EGFR(CK D-EP 39 L Ref: >=60 09/20/2021 06:38 PLASMA ESTIMATED GFR(eGF 38 L Ref: >=60 06/21/2021 06:43 PLASMA ESTIMATED GFR(eGF 48 L Ref: >=60 03/22/2021 06:50 PLASMA ESTIMATED GFR(eGF 44 L Ref: >=60 Allergies: ([place] only) SIMVASTATIN (Feb 29, 2004) CEPHALEXIN (Mar 01, 2004) To see allergies from all [place] locations click Re ports tab>Remote Data>All Available Sites>Clinical Reports>Aller gies. Report Status: Verified Date Reported: MAY 06, 2022 Date Verified: MAY 06, 2022 Generating Station Mechanic E-Sig: Report: CT CERVICAL SPINE W/O CONTRAST HISTORY:falls, blood thinner, AMS, seizure NUMBER OF IMAGES:770 COMPARISON: None available. TECHNIQUE: A non contrast CT of the cervical sp ine was [place] the local [place]. Images were subsequently sent to [facility] for interpretation. Axial, coronal and sagittal reformats were obta ined. Total DLP: 4057 mGy*cm. IV contrast: None FINDINGS: Motion artifact limits the exam. Cervical spine: No evidence of fracture. Modera te multilevel degenerative changes throughout the spine. Alig nment:Normal alignment. No subluxation or dislocation seen. Prevertebral soft tissues:Unremarkable. Spinal canal:No significant central canal steno sis is seen. Vasculature: Gas within the right internal jugu lar vein, likely iatrogenic. Lung apices:Unremarkable. Soft tissues: 11 mm subcutaneous cyst in the ri ght upper neck. Impression: -Motion artifact limits the exam. -Given this limitation, no acute osseous abnorm ality. -Moderate multilevel degenerative change throug hout the cervical spine. -Ancillary findings, above. READING PHYSICIAN: Eduin Donaldson M.D. -[phone] 05/06/2022 12:33 [facility] National Teleradiology Program [phone] (For Medical Practitioner Use Only ) Attention Patients / Veterans: If you have ques tions or concerns about these test results, please contact [facility] or primary care team. Primary Interpreting Staff: RADIOLOGY,OUTSIDE SERVICE, Staff Physician / Pathology Reports: +/- 30 days of the encounter Pathology Reports For cases when an order for pathology services may have been completed prior to the date of the Encounter, the report list includes the Pathology Reports that were completed up to 30 days before date of the Encounter. For cases when an order for pathology services may have been completed after the date of the Encounter, the report list also includes the Pathology Reports that were completed up to 30days after date of the Encounter. The data comes from all [place] treatment facilities. Date/Time Pathology Report Provider Source May 09, 2022 05:30 AM LR MICROBIOLOGY REPORT: [facility] Reporting Lab: [facility] [CLIA# [id number]] [place] [address] Accession [UID]: [id number] [[id number]] Receiv ed: May 09, 2022@01:35 Collection sample: BLOOD Collection date: Apr 05:30 Provider: CODIE LEON Comment on specimen: LEFT ARM, RECEIVED 2 BLOOD CULTURE BOTTLES Test(s) ordered: CULTURE & SUSCEPTIBILITY...... 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 R TRIMETH/SULFA................. S TETRACYCLINE.................. S CLINDAMYCIN................... S RIFAMPIN...................... S VANCOMYCIN.................... S Bacteriology Remark(s): VANCOMYCIN SHAMIKA: <=0.5 ug/mL THIS REPORT IS FINAL =--=--=--=--=--=--=--=--=--=--=--=--=--= --=--=--=--=--=--=--=--=--=--=--=--=-- Performing Laboratory: Bacteriology Report Performed By: [facility] [CLIA# [id number]] [place] [address] May 08, 2022 03:23 PM LR [facility]: [facility] Reporting Lab: [facility] [CLIA# [id number]] [place] [address] Accession [UID]: [id number] [[id number]] Receiv ed: May 08, 2022@15:41 Collection sample: BLOOD Collection date: Apr 15:23 Provider: CODIE LEON Comment on specimen: LEFT ARM, RECEIVED 2 BLOOD CULTURE BOTTLES Test(s) ordered: CULTURE & SUSCEPTIBILITY...... completed: May 10, 2022 * BACTERIOLOGY FINAL REPORT => May 10, 2022 16:3 1 TECH CODE: 29161 CULTURE RESULTS: GROWTH SAME THAT OF ANOTHER CULTURE Comment: FOR SUSCEPTIBILITY REPORT SEE PREVIOUS POSITIVE SAME MB 22 [id number] ( 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 from Anaerobic bottle ) ( Recovered from Aerobic bottle ) Bacteriology Remark(s): THIS REPORT IS FINAL =--=--=--=--=--=--=--=--=--=--=--=--=--= --=--=--=--=--=--=--=--=--=--=--=--=-- Performing Laboratory: Bacteriology Report Performed By: [facility] [CLIA# [id number]] [facility] [place] [address] May 08, 2022 03:21 PM LR MICROBIOLOGY REPORT: [facility] Reporting Lab: [facility] [CLIA# [id number]] [place] [address] Accession [UID]: [id number] [[id number]] Receiv ed: May 08, 2022@15:40 Collection sample: BLOOD Collection date: Apr 15:21 Provider: CODIE LEON Comment on specimen: RT ARM, RECEIVED 2 BLOOD CU LTURE BOTTLES Test(s) ordered: CULTURE & SUSCEPTIBILITY...... completed: May 10, 2022 * BACTERIOLOGY FINAL REPORT => May 10, 2022 16:3 1 TECH CODE: 39520 CULTURE RESULTS: GROWTH SAME THAT OF ANOTHER CULTURE Comment: FOR SUSCEPTIBILITY REPORT SEE PREVIOUS POSITIVE SAME MB 22 [id number] ( 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 from Anaerobic bottle ) ( Recovered from Aerobic bottle ) Bacteriology Remark(s): THIS REPORT IS FINAL =--=--=--=--=--=--=--=--=--=--=--=--=--= --=--=--=--=--=--=--=--=--=--=--=--=-- Performing Laboratory: Bacteriology Report Performed By: [facility] [CLIA# [id number]] [place] [address] May 07, 2022 05:30 AM LR MICROBIOLOGY REPORT: [facility] Reporting Lab: [facility] [CLIA# [id number]] [place] [address] Accession [UID]: [id number] [[id number]] Receiv ed: May 07, 2022@01:35 Collection sample: BLOOD Collection date: Apr 05:30 Provider: GAYLA DOMINGUEZ Comment on specimen: RAC, RECEIVED 2 BLOOD CULTU RE BOTTLES Test(s) ordered: CULTURE & SUSCEPTIBILITY...... completed: May 08, 2022 * BACTERIOLOGY FINAL REPORT => May 08, 2022 19:4 7 TECH CODE: 2196 CULTURE RESULTS: GROWTH SAME THAT OF ANOTHER CULTURE Comment: FOR SUSCEPTIBILITY REPORT SEE PREVIOUS POSITIVE SAME MB 22 [id number] ( 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 from Aerobic bottle ) ( Recovered from Anaerobic bottle ) Bacteriology Remark(s): THIS REPORT IS FINAL =--=--=--=--=--=--=--=--=--=--=--=--=--= --=--=--=--=--=--=--=--=--=--=--=--=-- Performing Laboratory: Bacteriology Report Performed By: [facility] [CLIA# [id number]] [place] [address] May 06, 2022 10:51 AM LR MICROBIOLOGY REPORT: [facility] Reporting Lab: [facility] [CLIA# [id number]] [place] [address] Accession [UID]: [id number] [[id number]] Receiv ed: May 06, 2022@11:32 Collection sample: URINE Collection date: Apr 10:51 Provider: MODESTA VILLANUEVA Comment on specimen: RECEIVED IN STERILE CUP Test(s) ordered: CULTURE & SUSCEPTIBILITY...... completed: May 07, 2022 * BACTERIOLOGY FINAL REPORT => May 07, 2022 20:4 8 TECH CODE: 2196 CULTURE RESULTS: STAPHYLOCOC CUS AUREUS METHICILLIN RESISTANT (MRSA) - Quantity: >100,000 ANTIBIOTIC SUSCEPTIBILITY TEST RESULTS: STAPHYLOCOCCUS AUREUS METHICILLIN RESISTANT ( SA) : OXACILLIN..................... R TRIMETH/SULFA................. S TETRACYCLINE.................. S RIFAMPIN...................... S VANCOMYCIN.................... S Bacteriology Remark(s): THIS REPORT IS FINAL =--=--=--=--=--=--=--=--=--=--=--=--=--= --=--=--=--=--=--=--=--=--=--=--=--=-- Performing Laboratory: Bacteriology Report Performed By: [facility] [CLIA# [id number]] [place] [address] May 06, 2022 10:34 AM LR MICROBIOLOGY REPORT: [facility] Reporting Lab: [facility] [CLIA# [id number]] [place] [address] Accession [UID]: [id number] [[id number]] Receiv ed: May 06, 2022@10:51 Collection sample: BLOOD Collection date: Apr 10:34 Provider: MODESTA VILLANUEVA Comment on specimen: RECEIVED 2 BLOOD CULTURE [facility] Test(s) ordered: CULTURE & SUSCEPTIBILITY...... 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 R TRIMETH/SULFA................. S TETRACYCLINE.................. S CLINDAMYCIN................... S RIFAMPIN...................... S VANCOMYCIN.................... S Bacteriology Remark(s): VANCOMYCIN SHAMIKA (mcg/ml): <=0.5 <<<< REVISED REPORT >>>> VANCOMYCIN SHAMIKA IN REPORT REMARK PREVIOUSLY REPO RTED INCORRECTLY >=4 mcg/mL. RESULT WAS CORRECTLY CHANGED TO <=0.5 mcg/mL. Result reported to Codie Leon MD 05/08/22 @0824 -NPR THIS REPORT IS FINAL =--=--=--=--=--=--=--=--=--=--=--=--=--= --=--=--=--=--=--=--=--=--=--=--=--=-- Performing Laboratory: Bacteriology Report Performed By: [facility] [CLIA# [id number]] [place] [address] May 06, 2022 10:00 AM LR MICROBIOLOGY REPORT: [facility] Reporting Lab: [facility] [CLIA# [id number]] [place] [address] Accession [UID]: [id number] [[id number]] Receiv ed: May 06, 2022@10:41 Collection sample: BLOOD Collection date: Apr 10:00 Provider: MODESTA VILLANUEVA Comment on specimen: RECEIVED 2 BLOOD CULTURE [facility] Test(s) ordered: CULTURE & SUSCEPTIBILITY...... completed: May 07, 2022 * BACTERIOLOGY FINAL REPORT => May 07, 2022 23:0 0 TECH CODE: [id number] CULTURE RESULTS: GROWTH SAME THAT OF ANOTHER CULTURE Comment: FOR SUSCEPTIBILITY REPORT SEE PREVIOUS POSITIVE SAME 22 [id number] ( 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 from Anaerobic bottle ) ( Recovered from Aerobic bottle ) Bacteriology Remark(s): THIS REPORT IS FINAL =--=--=--=--=--=--=--=--=--=--=--=--=--= --=--=--=--=--=--=--=--=--=--=--=--=-- Performing Laboratory: Bacteriology Report Performed By: [facility] [CLIA# [id number]] [place] [address] Encounter Notes: All associated encounter notes This section contains the clinical notes associated to the Encounter. Date/Time Encounter Note(s) Provider Source Apr 25, 2022 10:10 AM TELEHEALTH NOTE: HEATHER CARVER [facility] LOCAL TITLE: TELEHEALTH TECHNOLOGY SCREENING (T TS) STANDARD TITLE: TELEHEALTH NOTE DATE OF NOTE: APR 25, 2022@10:10 ENTRY DATE: APR 25, 2022@10:10:50 AUTHOR: HEATHER CARVER EXP COSIGNER: URGENCY: STATUS: COMPLETED Geraldine agrees to [place] [employer] (VVC) and has capability to complete a VVC visit. VVC capable, but declined test call and/o r will perform a test call independently. Device: Desktop/Laptop /ronni/ HEATHER CARVER [address] Telehealth Enamel Finisher Signed: 04/25/2022 10:11
--- OUTSIDE RECORDS SUMMARY | 2022-05-15 09:19 | XMS_ITS | Encounter Summary ---
:1935 Author Organization [facility] rs Address [address] [place] [address] Support Name Relationship Address Phone NATHANIEL LORENZO Unavailable [id number] [place] [address] NATHANIEL LORENZO Unavailable [address] [place] [address] ARACELI MARSHALL Unavailable [address] [place] [address] ARACELI MARSHALL Unavailable [address] [place] [address] Insurance Providers: All historical and current Section [...] [place] MED[place]ARE MCR Aug 19, [id number] Kristel EDDY [facility] (WNR) ADVANTAGE (WNR) 2017 8 [id number] [phone] ENON LICENSE OF [facility] 1 [place] MEDICARE MCR Aug 19, [id number] Kristel EDDY [facility] (WNR) ADVANTAGE (WNR) 2016 8 [id number] [phone] ENON LICENSE OF [facility] 1 Selected Encounter This section includes the information on record at [place] for the Encounter. Date/Time Encounter Type Encounter Reason Provider Source Description Apr 26, 2022 NRPSYC TST EVAL MENTAL HEALTH ICD-10-CM F03.90 BAILEY DOWNS N 10:00 AM PHYS[facility]HP [facility] Unspecified dementia without behavioral disturbance with Provider Comments: Unspecified Dementia without Behavioral Disturbance IHE Encounter Template Text not used by [place] Assessments - Encounter Diagnoses This section includes the primary and secondary diagnoses documented for the Encounter. Date/Time Primary/Secondary Diagnosis Name Provider Source Diagnosis Apr 26, 2022 PRIMARY Unspecified FILIBERTO DOWNS [facility] 12:25 PM dementia without HCS behavioral disturbance Apr 26, 2022 SECONDARY Anxiety disorder, FILIBERTO DOWNS [place] 12:25 PM unspecified HCS Plan of Treatment: Future Appointments (+ 6 months) and Future Tests (+/- 45 days) The Plan of Treatment section includes future care activities for the patient from [facility] [place] [facility] This section includes future appointments and future orders which are active, pending orscheduled.Future Appointments This section includes appointments that were scheduled to occur 6 months from the date of the Encounter, up to a maximum of 20 appointments. The data comes from all [facility]. Appointment Date/Time Appointment Type Appointment Facili ty Name Apr 30, 2022 08:00 AM AMBULATORY - MEDICINE [facility] Apr 30, 2022 09:15 AM AMBULATORY - NONE [facility] May 01, 2022 11:06 AM AMBULATORY - [facility] May 06, 2022 09:40 AM AMBULATORY - MEDICINE [facility] May 11, 2022 06:15 PM AMBULATORY - NONE [facility] Jul 23, 2022 08:00 AM AMBULATORY - NEUROLOGY [facility] Active, Pending, and Scheduled Orders This section includes a listing of several types of active, pending, and scheduled orders, including clinic medications orders, diagnostic test orders, procedure orders and consult orders; where the start date of the order is 45 days before the date of the Encounter or 45 days after the date of the Encounter. The data comes from all [facility]. Test Date/Time Test Type Test Details Facility Name Apr 30, 2022 08:21 Laboratory - CULTURE & SUSCEPTIBILITY [facility] AM Microbiology Order URINE Apr 30, 2022 08:21 Laboratory - Chemistry URINALYSIS URINE WC ON CE [facility] AM Order May 06, 2022 12:00 Laboratory - Blood ABO/RH - LAB BLOOD [facility] AM Bank Order May 06, 2022 10:11 Laboratory - Blood [facility] & [facility] Bank Order BLOOD May 06, 2022 10:27 [facility] AM Medication Order May 06, 2022 10:28 [facility] AM Infusion Order May 06, 2022 10:34 [facility] AM Infusion Order May 06, 2022 10:41 [facility] AM Infusion Order May 06, 2022 12:15 [facility] PM Medication Order May 06, 2022 01:31 [facility] PM Medication Order May 06, 2022 04:49 [facility] PM Medication Order May 07, 2022 01:00 Laboratory - CULTURE & SUSCEPTIBILITY [facility] PM Microbiology Order BLOOD WC ONCE May 11, 2022 09:07 Laboratory - CULTURE & SUSCEPTIBILITY [facility] AM Microbiology Order BLOOD WC May 11, 2022 09:07 Laboratory - CULTURE & SUSCEPTIBILITY [facility] AM Microbiology Order BLOOD WC May 11, 2022 09:38 Laboratory - Chemistry EOSINOPHIL SMEAR,URINE [facility] AM Order URINE WC ONCE May 11, 2022 09:38 Laboratory - Chemistry URINALYSIS URINE WC ON CE [facility] AM Order May 11, 2022 09:38 Laboratory - Chemistry FENA URINE WC ONCE [facility] AM Order Lab Results: +/- 30 days of the encounter This section includes the Chemistry and Hematology Lab Results on record with [place] for the patient. Radiology Reports and Pathology Reports are provided separately, in subsequent sections.Lab Results This section contains the Chemistry/Hematology Results that were resulted 30 days before or 30 daysafter the date of the Encounter. Date/Time Source Result Type Result - Unit Interpretation Reference Range Comment May 11, 2022 11:13 [facility] FINGERSTICK GLUCOSE Speci men Type: BLOOD AM Comment: Mark casillas Nurse Notified Ordering Provid er: CODIE LEON Report Released Date/Time: May 11, 2022 11:53 AM Reporting Lab: [facility] [address] [facility] [address] Performing Lab: [facility] [address] [facility] [address] FINGERSTICK GLUCOSE 367 H 70-100 May 11, 2022 07:05 [facility] LIVER FUNCTION TESTS Spec imen Type: PLASMA AM No comment enter ed. Ordering Provid er: CODIE LEON Report Released Date/Time: May 11, 2022 09:08 AM Reporting Lab: [facility] [address] [facility] [address] Performing Lab: [facility] [address] [facility] [address] BILIRUBIN, TOTAL 1.6 H 0.2-1.2 ALKALINE PHOSPHATASE 102 40-150 ALT/SGPT 42 <55 AST/SGOT 30 <34 GAMMA GTP 52 <64 DIR. BILIRUBIN 1.2 H <0.5 May 11, 2022 07:05 [facility] BASIC METABOLIC Specimen Type: PLASMA AM PANEL+MG No comment enter ed. Ordering Provid er: OG DIAL Report Released Date/Time: May 11, 2022 04:46 AM Reporting Lab: [facility] [address] [facility] [address] Performing Lab: [facility] [address] [facility] [address] CREATININE 1.6 H 0.7-1.2 UREA NITROGEN 28 H 8-26 GLUCOSE 396 H 70-100 SODIUM 150 H 136-145 POTASSIUM 3.7 3.5-5.1 CHLORIDE 120 H 98-107 CO2 23 22-29 CALCIUM 8.4 8.4-10.2 MAGNESIUM 2.1 1.6-2.6 ANION GAP 7 5-15 CREAT EGFR(CKD-EPI) 42 L >60 May 11, 2022 07:05 AM [facility] CK,TOTAL Specim en Type: PLASMA No comment enter ed. Ordering Provid er: CODIE LEON Report Released Date/Time: May 11, 2022 09:08 AM Reporting Lab: [facility] [address] [facility] [address] Performing Lab: [facility] [address] [facility] [address] CK,TOTAL 16 L 39-208 May 11, 2022 07:05 AM [facility] BNP Specim en Type: PLASMA No comment enter ed. Ordering Provid er: CODIE LEON Report Released Date/Time: May 11, 2022 09:15 AM Reporting Lab: [facility] [address] [facility] [address] Performing Lab: [facility] [address] BNP 59 <99 May 11, 2022 07:05 AM [facility] CBC Specim en Type: BLOOD No comment enter ed. Ordering Provid er: OG DIAL Report Released Date/Time: May 11, 2022 04:46 AM Reporting Lab: [facility] [address] [facility] [address] Performing Lab: [facility] [address] [facility] [address] WBC 15.93 H 4.0-11.0 RBC 3.60 L 4.6-6.2 HGB 11.2 L 13.5-17.9 HCT 35.3 L 41-54 MCV 98.1 80-100 MCH 31.1 27-33 MCHC 31.7 L 32.0-37.5 PLT 231 150-400 MPV 11.2 H 7.4-10.4 RDW 15.2 H 11.5-14.5 May 11, 2022 06:14 [facility] FINGERSTICK GLUCOSE Speci men Type: BLOOD AM Comment: Mark casillas Nurse Notified Ordering Provid er: CODIE LEON Report Released Date/Time: May 11, 2022 06:42 AM Reporting Lab: [facility] [address] [facility] [address] Performing Lab: [facility] [address] [facility] [address] FINGERSTICK GLUCOSE 345 H 70-100 May 11, 2022 02:24 [facility] FINGERSTICK GLUCOSE Speci men Type: BLOOD AM Comment: Mark casillas Ordering Provid er: CODIE LEON Report Released Date/Time: May 11, 2022 02:44 AM Reporting Lab: [facility] [address] [facility] [address] Performing Lab: [facility] [address] [facility] [address] FINGERSTICK GLUCOSE 375 H 70-100 May 10, 2022 08:38 [facility] FINGERSTICK GLUCOSE Speci men Type: BLOOD PM Comment: Mark casillas Ordering Provid er: CODIE LEON Report Released Date/Time: May 11, 2022 12:31 AM Reporting Lab: [facility] [address] [facility] [address] Performing Lab: [facility] [address] [facility] [address] FINGERSTICK GLUCOSE 346 H 70-100 May 10, 2022 05:05 [facility] FINGERSTICK GLUCOSE Speci men Type: BLOOD PM Comment: Mark casillas Nurse Notified Ordering Provid er: CODIE LEON Report Released Date/Time: May 10, 2022 11:50 PM Reporting Lab: [facility] [address] [facility] [address] Performing Lab: [facility] [address] [facility] [address] FINGERSTICK GLUCOSE 245 H 70-100 May 10, 2022 02:00 [facility] VANCOMYCIN (TROUGH) Speci men Type: PLASMA PM No comment enter ed. Ordering Provid er: CODIE LEON Report Released Date/Time: May 11, 2022 01:34 AM Reporting Lab: [facility] [address] Performing Lab: [facility] [address] VANCOMYCIN (TROUGH) 31.8 H 10.0-15.0 May 10, 2022 [facility] BASIC METABOLIC Specimen Typ e: PLASMA 02:00 PM PANEL+MG No comment enter ed. Ordering Provid er: CODIE LEON Report Released Date/Time: May 11, 2022 01:34 AM Reporting Lab: [facility] [address] Performing Lab: [facility] [address] CREATININE 1.1 .7-1.2 UREA NITROGEN 22 8-26 GLUCOSE 279 H 70-100 SODIUM 150 H 136-145 POTASSIUM 3.2 L 3.5-5.1 CHLORIDE 116 H 98-107 CO2 23 22-29 CALCIUM 8.5 8.4-10.2 MAGNESIUM 2.0 1.6-2.6 ANION GAP 11 5-15 CREAT EGFR(CKD-EPI) 65 >60 May 10, 2022 01:20 PM [facility] CBC & DIFF Specim en Type: BLOOD Comment: Automa nola Differential Performed Ordering Provid er: MD ESTEBAN Report Released Date/Time: May 10, 2022 08:52 PM Reporting Lab: [facility] [address] [facility] [address] Performing Lab: [facility] [address] WBC 16.24 H 4.0-11.0 RBC 3.76 L [...] 0.28 H 0-0.1 May 10, 2022 11:07 [facility] FINGERSTICK GLUCOSE Speci men Type: BLOOD AM Comment: Mark casillas Nurse Notified Ordering Provid er: CODIE LEON Report Released Date/Time: May 11, 2022 12:31 AM Reporting Lab: [facility] [address] [facility] [address] Performing Lab: [facility] [address] [facility] [address] FINGERSTICK GLUCOSE 253 H 70-100 May 10, 2022 06:16 [facility] FINGERSTICK GLUCOSE Speci men Type: BLOOD AM Comment: Mark casillas Nurse Notified Ordering Provid er: CODIE LEON Report Released Date/Time: May 10, 2022 11:50 PM Reporting Lab: [facility] [address] [facility] [address] Performing Lab: [facility] [address] [facility] [address] FINGERSTICK GLUCOSE 271 H 70-100 May 09, 2022 09:07 [facility] FINGERSTICK GLUCOSE Speci men Type: BLOOD PM Comment: Mark casillas Ordering Provid er: CODIE LEON Report Released Date/Time: May 10, 2022 11:50 PM Reporting Lab: [facility] [address] [facility] [address] Performing Lab: [facility] [address] [facility] [address] FINGERSTICK GLUCOSE 209 H 70-100 May 09, 2022 05:33 [facility] FINGERSTICK GLUCOSE Speci men Type: BLOOD PM Comment: Mark casillas Nurse Notified Ordering Provid er: CODIE LEON Report Released Date/Time: May 09, 2022 05:53 PM Reporting Lab: [facility] [address] [facility] [address] Performing Lab: [facility] [address] [facility] [address] FINGERSTICK GLUCOSE 251 H 70-100 May 09, 2022 02:09 [facility] VANCOMYCIN (PEAK) Specime n Type: SERUM PM No comment enter ed. Ordering Provid er: AMARIS DE JESUS Report Released Date/Time: May 09, 2022 09:33 AM Reporting Lab: [facility] [address] [facility] [address] Performing Lab: [facility] [address] [facility] [address] VANCOMYCIN (PEAK) 24.2 20.0-40.0 May 09, 2022 11:19 [facility] FINGERSTICK GLUCOSE Speci men Type: BLOOD AM Comment: Mark casillas Nurse Notified Ordering Provid er: CODIE LEON Report Released Date/Time: May 09, 2022 11:38 AM Reporting Lab: [facility] [address] Performing Lab: [facility] [address] FINGERSTICK GLUCOSE 240 H 70-100 May 09, 2022 08:13 [facility] VANCOMYCIN (TROUGH) Speci men Type: SERUM AM No comment enter ed. Ordering Provid er: AMARIS DE JESUS Report Released Date/Time: May 08, 2022 11:14 AM Reporting Lab: [facility] [address] [facility] [address] Performing Lab: [facility] [address] [facility] [address] VANCOMYCIN (TROUGH) 16.1 H 10.0-15.0 May 09, 2022 05:33 AM [facility] CBC & DIFF Specim en Type: BLOOD Comment: Automa nola Differential Performed Ordering Provid er: CODIE LEON Report Released Date/Time: May 08, 2022 05:27 PM Reporting Lab: [facility] [address] [facility] [address] Performing Lab: [facility] [address] WBC 14.92 H 4.0-11.0 RBC 3.41 L [...] GRAN 0.16 H 0-0.1 May 09, 2022 [facility] COMPREHENSIVE METABOLIC Spec imen Type: PLASMA 05:32 AM PANEL+MG No comment enter ed. Ordering Provid er: CODIE LEON Report Released Date/Time: May 08, 2022 05:27 PM Reporting Lab: [facility] [address] Performing Lab: [facility] [address] CREATININE 1.2 0.7-1.2 UREA NITROGEN 25 8-26 [...] 59 L >60 May 09, 2022 05:16 [facility] FINGERSTICK GLUCOSE Speci men Type: BLOOD AM Comment: Mark casillas Nurse Notified Ordering Provid er: CODIE LEON Report Released Date/Time: May 09, 2022 07:27 AM Reporting Lab[facility] [address] Performing Lab: [facility] [address] FINGERSTICK GLUCOSE 295 H 70-100 May 08, 2022 09:32 PM [facility] EXTRA MINT TUBE Specim en Type: PLASMA No comment enter ed. Ordering Provid er: MD ESTEBAN Report Released Date/Time: May 08, 2022 09:32 PM Reporting Lab: [facility] [address] [facility] [address] Performing Lab: [facility] [address] [facility] [address] EXTRA MINT TUBE RECEIVED May 08, 2022 09:32 PM [facility] EXTRA PURPLE TUBE Spec imen Type: BLOOD No comment enter ed. Ordering Provid er: MD ESTEBAN Report Released Date/Time: May 08, 2022 09:32 PM Reporting Lab: [facility] [address] [facility] [address] Performing Lab: [facility] [address] [facility] [address] EXTRA PURPLE TUBE RECEIVED May 08, 2022 09:32 PM [facility] EXTRA BLUE TUBE Specim en Type: PLASMA No comment enter ed. Ordering Provid er: MD ESTEBAN Report Released Date/Time: May 08, 2022 09:32 PM Reporting Lab: [facility] [address] [facility] [address] Performing Lab: [facility] [address] [facility] [address] EXTRA BLUE TUBE RECEIVED May 08, 2022 09:32 [facility] EXTRA GOLD GEL TUBE Speci men Type: SERUM PM No comment enter ed. Ordering Provid er: MD ESTEBAN Report Released Date/Time: May 08, 2022 09:32 PM Reporting Lab: [facility] [address] [facility] [address] Performing Lab: [facility] [address] [facility] [address] EXTRA GOLD GEL TUBE RECEIVED May 08, 2022 09:32 PM [facility] EXTRA BRASWELL TUBE Specim en Type: PLASMA No comment enter ed. Ordering Provid er: MD ESTEBAN Report Released Date/Time: May 08, 2022 09:37 PM Reporting Lab: [facility] [address] [facility] [address] Performing Lab: [facility] [address] [facility] [address] EXTRA BRASWELL TUBE RECEIVED May 08, 2022 09:32 PM [facility] BNP Specim en Type: PLASMA No comment enter ed. Ordering Provid er: OG DIAL Report Released Date/Time: May 08, 2022 09:50 PM Reporting Lab: [facility] [address] [facility] [address] Performing Lab: [facility] [address] [facility] [address] BNP 897 H <99 May 08, 2022 09:32 PM [facility] LACTIC ACID Specim en Type: PLASMA No comment enter ed. Ordering Provid er: OG DIAL Report Released Date/Time: May 08, 2022 09:49 PM Reporting Lab: [facility] [address] Performing Lab: [facility] [address] LACTIC ACID 2.5 H 0.5-2.2 May 08, 2022 09:32 PM [facility] CBC Specim en Type: BLOOD No comment enter ed. Ordering Provid er: OG DIAL Report Released Date/Time: May 08, 2022 09:50 PM Reporting Lab: [facility] [address] Performing Lab: [facility] [address] WBC 18.54 H 4.0-11.0 RBC 3.68 L 4.6-6.2 HGB 11.5 L 13.5-17.9 HCT 35.1 L 41-54 MCV 95.4 80-100 MCH 31.3 27-33 MCHC 32.8 32.0-37.5 PLT 221 150-400 MPV 11.1 H 7.4-10.4 RDW 14.9 H 11.5-14.5 May 08, 2022 09:32 PM [facility] BLOOD GASES Specim en Type: VENOUS BLOOD Comment: O2 THE RAPY = 3L PM Ordering Provid er: OG DIAL Report Released Date/Time: May 08, 2022 09:50 PM Reporting Lab: [facility] [address] Performing Lab: [facility] [address] PH 7.36 7.33-7.43 PCO2 47 41-51 BICARBONATE 24.4 21.0-30.0 PO2 31 L 35-40 OXYGEN SATURATION 54.7 L 70.0-75.0 PH(TEMP CORRECTED) 7.37 7.33-7.43 PCO2(TEMP CORRECTED) 46 41-51 PO2(TEMP CORRECTED) 31 L 35-40 PATIENT TEMPERATURE 36.7 May 08, 2022 [facility] COMPREHENSIVE METABOLIC Spec imen Type: PLASMA 09:32 PM PANEL+MG No comment enter ed. Ordering Provid er: OG DIAL Report Released Date/Time: May 08, 2022 09:50 PM Reporting Lab: [facility] [address] [facility] [address] Performing Lab: [facility] [address] CREATININE 1.3 H 0.7-1.2 UREA NITROGEN 26 [...] 54 L >60 May 08, 2022 08:27 [facility] FINGERSTICK GLUCOSE Speci men Type: BLOOD PM Comment: Mark casillas Nurse Notified Ordering Provid er: CODIE LEON Report Released Date/Time: May 08, 2022 08:55 PM Reporting Lab: [facility] [address] [facility] [address] Performing Lab: [facility] [address] FINGERSTICK GLUCOSE 272 H 70-100 May 08, 2022 06:56 [facility] FINGERSTICK GLUCOSE Speci men Type: BLOOD PM Comment: Mark casillas Ordering Provid er: CODIE LEON Report Released Date/Time: May 08, 2022 07:08 PM Reporting Lab: [facility] [address] [facility] [address] Performing Lab: [facility] [address] [facility] [address] FINGERSTICK GLUCOSE 262 H 70-100 May 08, 2022 04:50 [facility] FINGERSTICK GLUCOSE Speci men Type: BLOOD PM Comment: Nurse Notified Ordering Provid er: CODIE LEON Report Released Date/Time: May 08, 2022 05:14 PM Reporting Lab: [facility] [address] [facility] [address] Performing Lab: [facility] [address] [facility] [address] FINGERSTICK GLUCOSE 330 H 70-100 May 08, 2022 11:21 [facility] FINGERSTICK GLUCOSE Speci men Type: BLOOD AM Comment: Mark casillas Nurse Notified Ordering Provid er: CODIE LEON Report Released Date/Time: May 08, 2022 11:51 AM Reporting Lab: [facility] [address] [facility] [address] Performing Lab: [facility] [address] FINGERSTICK GLUCOSE 231 H 70-100 May 08, 2022 07:25 AM [facility] CBC & DIFF Specim en Type: BLOOD Comment: Automa nola Differential Performed Ordering Provid er: BETO AYALA Report Released Date/Time: May 07, 2022 12:28 PM Reporting Lab: [facility] [address] Performing Lab: [facility] [address] [facility] [address] WBC 16.29 H 4.0-11.0 RBC 3.38 L [...] GRAN 0.26 H 0-0.1 May 08, 2022 [facility] PROTHROMBIN TIME/INR Specime n Type: PLASMA 07:25 AM No comment enter ed. Ordering Provid er: BETO AYALA Report Released Date/Time: May 07, 2022 12:28 PM Reporting Lab: [facility] [address] [facility] [address] Performing Lab: [facility] [address] [facility] [address] .INR 1.2 H 0.8-1.1 .PT 14.2 H 9.4-12.5 May 08, 2022 [facility] COMPREHENSIVE METABOLIC Spec imen Type: PLASMA 07:25 AM PANEL+MG No comment enter ed. Ordering Provid er: BETO AYALA Report Released Date/Time: May 07, 2022 12:28 PM Reporting Lab: [facility] [address] [facility] [address] Performing Lab: [facility] [address] CREATININE 1.1 0.7-1.2 UREA NITROGEN 27 H [...] EGFR(CKD-EPI) 65 >60 May 08, 2022 06:53 [facility] FINGERSTICK GLUCOSE Speci men Type: BLOOD AM Comment: Mark casillas Ordering Provid er: CODIE LEON Report Released Date/Time: May 08, 2022 07:18 AM Reporting Lab: [facility] [address] [facility] [id number] Performing Lab: [facility] [address] [facility] [address] FINGERSTICK GLUCOSE 276 H 70-100 May 07, 2022 08:36 [facility] FINGERSTICK GLUCOSE Speci men Type: BLOOD PM Comment: Nurse Notified Ordering Provid er: CODIE LEON Report Released Date/Time: May 08, 2022 12:29 AM Reporting Lab: [facility] [address] [facility] [id number] Performing Lab: [facility] [address] [facility] [address] FINGERSTICK GLUCOSE 282 H 70-100 May 07, 2022 07:04 PM [facility] LACTIC ACID Specim en Type: PLASMA No comment enter ed. Ordering Provid er: BETO AYALA Report Released Date/Time: May 07, 2022 06:28 PM Reporting Lab: [facility] [address] [facility] [address] Performing Lab: [facility] [address] [facility] [address] LACTIC ACID 2.0 0.5-2.2 May 07, 2022 04:46 [facility] FINGERSTICK GLUCOSE Speci men Type: BLOOD PM Comment: Nurse Notified Ordering Provid er: BETO AYALA Report Released Date/Time: May 07, 2022 05:00 PM Reporting Lab: [facility] [address] [facility] [address] Performing Lab: [facility] [address] [facility] [address] FINGERSTICK GLUCOSE 274 H 70-100 May 07, 2022 12:47 [facility] FINGERSTICK GLUCOSE Speci men Type: BLOOD PM Comment: Mark casillas Nurse Notified Ordering Provid er: BETO AYALA Report Released Date/Time: May 07, 2022 05:32 PM Reporting Lab: [facility] [address] [facility] [address] Performing Lab: [facility] [address] [facility] [address] FINGERSTICK GLUCOSE 309 H 70-100 May 07, 2022 06:35 [facility] FINGERSTICK GLUCOSE Speci men Type: BLOOD AM Comment: Mark casillas Nurse Notified Ordering Provid er: GAYLA DOMINGUEZ Report Released Date/Time: May 07, 2022 06:46 AM Reporting Lab: [facility] [address] [facility] [address] Performing Lab: [facility] [address] [facility] [address] FINGERSTICK GLUCOSE 352 H 70-100 May 07, 2022 06:15 AM [facility] ALBUMIN Specim en Type: PLASMA No comment enter ed. Ordering Provid er: GAYLA DOMINGUEZ Report Released Date/Time: May 06, 2022 06:33 PM Reporting Lab: [facility] [address] [facility] [address] Performing Lab: [facility] [address] [facility] [address] ALBUMIN 3.0 L 3.5-5.2 May 07, 2022 [facility] COMPREHENSIVE METABOLIC Spec imen Type: PLASMA 06:15 AM PANEL+MG No comment enter ed. Ordering Provid er: GAYLA DOMINGUEZ Report Released Date/Time: May 06, 2022 09:11 PM Reporting Lab: [facility] [address] Performing Lab: [facility] [address] CREATININE 1.2 0.7-1.2 UREA NITROGEN 25 8-26 [...] L >60 May 07, 2022 06:15 AM [facility] CBC & DIFF Specim en Type: BLOOD Comment: Manual Differential Performed Ordering Provid er: GAYLA DOMINGUEZ Report Released Date/Time: May 06, 2022 09:11 PM Reporting Lab: [facility] [address] Performing Lab: [facility] [address] WBC 20.25 H 4.0-11.0 RBC 3.54 L [...] NORMOCYTIC, NORMOCHROMIC May 07, 2022 12:19 AM [facility] LACTIC ACID Specim en Type: PLASMA No comment enter ed. Ordering Provid er: GAYLA DOMINGUEZ Report Released Date/Time: May 06, 2022 07:13 PM Reporting Lab: [facility] [address] [facility] [address] Performing Lab: [facility] [address] [facility] [address] LACTIC ACID 2.7 H 0.5-2.2 May 06, 2022 10:45 [facility] FINGERSTICK GLUCOSE Speci men Type: BLOOD PM Comment: Save R sonja Nurse Notified Ordering Provid er: GAYLA DOMINGUEZ Report Released Date/Time: May 07, 2022 12:08 AM Reporting Lab: [facility] [address] [facility] [address] Performing Lab: [facility] [address] [facility] [address] FINGERSTICK GLUCOSE 320 H 70-100 May 06, 2022 06:53 [facility] MRSA SURVL NARES Specimen Type: NARES PM DNA No comment enter ed. Ordering Provid er: GAYLA DOMINGUEZ Report Released Date/Time: May 06, 2022 06:33 PM Reporting Lab: [facility] [address] [facility] [address] Performing Lab: [facility] [address] [facility] [address] MRSA SURVL NARES DNA POSITIVE HH Negative May 06, 2022 06:51 PM [facility] LACTIC ACID Specim en Type: PLASMA No comment enter ed. Ordering Provid er: GAYLA DOMINGUEZ Report Released Date/Time: May 06, 2022 06:04 PM Reporting Lab: [facility] [address] [facility] [address] Performing Lab: [facility] [address] [facility] [address] LACTIC ACID 3.1 H 0.5-2.2 May 06, 2022 06:51 [facility] CARDIAC TROPONIN I Specim en Type: PLASMA PM No comment enter ed. Ordering Provid er: GAYLA DOMINGUEZ Report Released Date/Time: May 06, 2022 06:05 PM Reporting Lab: [facility] [address] [facility] [address] Performing Lab: [facility] [address] [facility] [address] CARDIAC TROPONIN I <0.028 <0.028 May 06, 2022 06:51 [facility] EXTRA GOLD GEL TUBE Speci men Type: SERUM PM No comment enter ed. Ordering Provid er: GAYLA DOMINGUEZ Report Released Date/Time: May 06, 2022 06:52 PM Reporting Lab: [facility] [address] [facility] [address] Performing Lab: [facility] [address] [facility] [address] EXTRA GOLD GEL TUBE RECEIVED May 06, 2022 06:51 [facility] C-REACTIVE PROTEIN Specim en Type: PLASMA PM No comment enter ed. Ordering Provid er: GAYLA DOMINGUEZ Report Released Date/Time: May 06, 2022 09:29 PM Reporting Lab: [facility] [address] [facility] [address] Performing Lab: [facility] [address] C-REACTIVE PROTEIN 392.40 H <5.00 May 06, 2022 10:51 AM [facility] URINALYSIS Specim en Type: URINE No comment enter ed. Ordering Provid er: MODESTA VILLANUEVA Report Released Date/Time: May 06, 2022 10:11 AM Reporting Lab: [facility] [address] [facility] [address] Performing Lab: [facility] [address] [facility] [address] URINE COLOR YELLOW SPECIFIC GRAVITY 1.020 1.003-1.035 [...] ESTERASE 500 NEGATIVE May 06, 2022 10:24 [facility] COVID-19 DIAGNOSTIC Speci men Type: NASOPHARYNGEAL AM PANEL (CEPHEID) Comment: Kym lopez GeneXpert (618) Ordering Provid er: MODESTA VILLANUEVA Report Released Date/Time: May 06, 2022 10:11 AM Reporting Lab: [facility] [address] [facility] [address] Performing Lab: [facility] [address] COVID-19 (CEPHEID) Not Detected Not Dete cted May 06, 2022 10:20 AM [facility] POC ABG/LACTATE Specim en Type: VENOUS BLOOD No comment enter ed. Ordering Provid er: MODESTA VILLANUEVA Report Released Date/Time: May 06, 2022 10:22 AM Reporting Lab: [facility] [address] [facility] [address] Performing Lab: [facility] [address] [facility] [address] POC PH 7.410 7.31-7.41 POC PCO2 28.9 L 35.00-45.00 POC PO2 82 H 35.0-40.0 POC TCO2 19 L 24.0-29.0 POC HCO3 18.3 L 23.0-28.0 POC BE ECT -6 L -2 POC SO2 96 H 70-75 POC LACTATE 3.62 0.90-1.70 May 06, 2022 10:00 AM [facility] PHOSPHORUS Specim en Type: PLASMA No comment enter ed. Ordering Provid er: MODESTA VILLANUEVA Report Released Date/Time: May 06, 2022 10:11 AM Reporting Lab: [facility] [address] [facility] [address] Performing Lab: [facility] [address] [facility] [address] PHOSPHORUS 2.5 2.3-4.7 May 06, 2022 10:00 [facility] PROTHROMBIN TIME/INR Spec imen Type: PLASMA AM No comment enter ed. Ordering Provid er: MODESTA VILLANUEVA Report Released Date/Time: May 06, 2022 10:11 AM Reporting Lab: [facility] [address] [facility] [address] Performing Lab: [facility] [address] [facility] [address] .INR 2.5 H 0.8-1.1 .PT 29.2 H 9.4-12.5 May 06, 2022 10:00 [facility] ACT PART THROMBO TIME Spe cimen Type: PLASMA AM No comment enter ed. Ordering Provid er: MODESTA VILLANUEVA Report Released Date/Time: May 06, 2022 10:11 AM Reporting Lab: [facility] [address] [facility] [address] Performing Lab: [facility] [address] [facility] [address] APTT 37.8 H 25.1-36.5 May 06, 2022 10:00 [facility] CARDIAC TROPONIN I Specim en Type: PLASMA AM Comment: Critic al Value Reported To: BROOKS COTE 05-06-2022 @1053 BY MBB. Critical value report confirmed. Ordering Provid er: MODESTA VILLANUEVA Report Released Date/Time: May 06, 2022 10:11 AM Reporting Lab: [facility] [address] [facility] [address] Performing Lab: [facility] [address] [facility] [address] CARDIAC TROPONIN I 0.035 HH <0.028 May 06, 2022 10:00 AM [facility] PROCALCITONIN Specim en Type: PLASMA No comment enter ed. Ordering Provid er: MODESTA VILLANUEVA Report Released Date/Time: May 06, 2022 10:11 AM Reporting Lab: [facility] [address] [facility] [address] Performing Lab: [facility] [address] [facility] [address] PROCALCITONIN 22.29 H <0.09 May 06, 2022 10:00 AM [facility] LIPASE Specim en Type: PLASMA No comment enter ed. Ordering Provid er: MODESTA VILLANUEVA Report Released Date/Time: May 06, 2022 10:11 AM Reporting Lab: [facility] [address] [facility] [address] Performing Lab: [facility] [address] [facility] [address] LIPASE <4 <60 May 06, 2022 10:00 AM [facility] CBC & DIFF Specim en Type: BLOOD Comment: Manual Differential Performed Ordering Provid er: MODESTA VILLANUEVA Report Released Date/Time: May 06, 2022 10:11 AM Reporting Lab: [facility] [address] [facility] [address] Performing Lab: [facility] [address] [facility] [address] WBC 18.82 H 4.0-11.0 RBC 3.70 L [...] 0.09 .RBC MORPHOLOGY PRESENT May 06, 2022 10:00 [facility] EXTRA GOLD GEL TUBE Speci men Type: SERUM AM No comment enter ed. Ordering Provid er: LINNEA RAND Report Released Date/Time: May 06, 2022 10:25 AM Reporting Lab: [facility] [address] Performing Lab: [facility] [address] EXTRA GOLD GEL TUBE RECEIVED May 06, 2022 [facility] COMPREHENSIVE METABOLIC Spec imen Type: PLASMA 10:00 AM PANEL+MG Comment: Manual Differential Performed Ordering Provid er: MODESTA VILLANUEVA Report Released Date/Time: May 06, 2022 10:11 AM Reporting Lab: [facility] [address] [facility] [address] Performing Lab: [facility] [address] CREATININE 1.3 H 0.7-1.2 UREA NITROGEN 25 [...] EGFR(CKD-EPI) 54 L >60 May 06, 2022 09:46 [facility] FINGERSTICK GLUCOSE Speci men Type: BLOOD AM Comment: Mark casillas Nurse Notified Ordering Provid er: MODESTA VILLANUEVA Report Released Date/Time: May 06, 2022 09:59 AM Reporting Lab: [facility] [address] [facility] [address] Performing Lab: [facility] [address] FINGERSTICK GLUCOSE 369 H 70-100 Apr 30, 2022 09:17 AM [facility] CBC Specim en Type: BLOOD No comment enter ed. Ordering Provid er: BILL ROONEY Report Released Date/Time: Apr 30, 2022 08:21 AM Reporting Lab: [facility] [address] Performing Lab: [facility] [address] WBC 10.40 4.0-11.0 RBC 3.96 L 4.6-6.2 HGB 12.3 L 13.5-17.9 HCT 37.8 L 41-54 MCV 95.5 80-100 MCH 31.1 27-33 MCHC 32.5 32.0-37.5 PLT 286 150-400 MPV 10.1 7.4-10.4 RDW 14.6 H 11.5-14.5 Apr 30, 2022 [facility] BASIC METABOLIC Specimen Typ e: PLASMA 09:17 AM PANEL+MG No comment enter ed. Ordering Provid er: BILL ROONEY Report Released Date/Time: Apr 30, 2022 08:21 AM Reporting Lab: [facility] [address] Performing Lab: [facility] [address] CREATININE 1.2 0.7-1.2 UREA NITROGEN 26 8-26 GLUCOSE 140 H 70-100 SODIUM 138 136-145 POTASSIUM 3.8 3.5-5.1 CHLORIDE 107 98-107 CO2 20 L 22-29 CALCIUM 9.4 8.4-10.2 MAGNESIUM 1.7 1.6-2.6 ANION GAP 11 5-15 CREAT EGFR(CKD-EPI) 59 L >60 Apr 02, 2022 02:37 PM [facility] B 12 Specim en Type: SERUM No comment enter ed. Ordering Provid er: MADISON SOL Report Released Date/Time: Apr 02, 2022 02:05 PM Reporting Lab: [facility] [address] Performing Lab: [facility] [address] B 12 [phone] Apr 02, 2022 02:37 PM [facility] AMMONIA Specim en Type: PLASMA No comment enter ed. Ordering Provid er: VIV SOLDEBRAWayne Knox Report Released Date/Time: Apr 02, 2022 02:05 PM Reporting Lab: [facility] [address] [facility] [address] Performing Lab: [facility] [address] [facility] [address] AMMONIA <14 <72 Apr 02, 2022 [facility] LIVER FUNCTION TESTS Specime n Type: PLASMA 02:37 PM No comment enter ed. Ordering Provid er: KRISTIONELIA NOWAKJOSSELIN O Report Released Date/Time: Apr 02, 2022 02:05 PM Reporting Lab: [facility] [address] [facility] [address] Performing Lab: [facility] [address] [facility] [address] BILIRUBIN, TOTAL 0.5 0.2-1.2 ALKALINE PHOSPHATASE 108 40-150 ALT/SGPT 24 <55 AST/SGOT 18 <34 GAMMA GTP 34 <64 Apr 02, 2022 [facility] METHYLMA ACID, [facility] Specime n Type: SERUM 02:37 PM Comment: This t est was developed and its analytical performance characteristics have been determined by [facility] [place], [place]. It has not been cleared or approved by the U.S . Food and Drug Administration. This assay has been validated pursuant to the CLIA regulations and is used for clinical purposes. Test Performed by [facility], [facility], [address] [place] [address] Domenic Miller M.D., Ph.D., Director of Laboratories , CLIA [id number] Ordering Provid er: MADISON SOL Report Released Date/Time: Apr 02, 2022 04:37 PM Reporting Lab: [facility] [address] [facility] [address] Performing Lab: [address] METHYLMA ACID, [facility] 406 H 94-737 Social History: Smoking Status (Most current) and Tobacco Use (All prior to encounter date) This section includes the most current, and the historical, smoking and tobacco-related health factors from the [place] facility where the Encounter took place.Current Smoking Status This section includes the most current smoking, or tobacco-related health factor, from the [place] facility where the Encounter took place. Date/Time Current Smoking Status Comment Facility Feb 02, 2022 09:30 AM VA-TOBACCO NEVER USED [place] [facility] Tobacco Use History This section includes a history of the smoking, or tobacco- related health factors, that were collected on or before the date of the Encounter. The data comes from the [facility] where the Encounter took place. Date/Time Smoking Status/Tobacco Use Comment [facility] Mar 22, 2021 07:45 AM VA-TOBACCO NEVER USED [place] [facility] Oct 02, 2019 10:02 AM VA-TOBACCO NEVER [...] ALL of a patient's completed or amended [place] Advance and Rescinded Directives. The entries below indicate that a directive exists for the patient, but an actual copy is not included with this document. The data comes from all [facility]. Date Advance Directives Provider Source Apr 18, 2018 ADVANCE DIRECTIVE LARISSA SIGALA [facility] Apr 18, 2018 ADVANCE DIRECTIVE DISCUSSION LARISSA SIGALA [facility] December 23, 2017 CLINICAL WARNING [facility] May 11, 2003 ADVANCE DIRECTIVE BERT [...] the Encounter. The data comes from all [place] treatment facilities. Date/Time Radiology Report Provider Source May 11, 2022 09:46 CHEST 1 VIEW: SONJA OVALLES [facility] LUISANA STERLING [id number] -1935 M Exm Date: MAY 11, 2022@09:46 Req Phys: CODIE LEON Pat Loc: OP Unknown /05-13-2022@05:05 Img Loc: MAIN X-RAY Service: PRIMARY CARE - MED OFFICE (Case [id number] COMPLETE) CHEST 1 VIEW (RAD Detailed) CPT:52723 Proc Modifiers : PORTABLE EXAM Reason for Study: resp distress Clinical History: [place] IS NOT under investigation for COVID-19 or is COVID-19 negative Respiratory distress Responsible provider name and phone number to notify for critical findings if other than u ser placing the order and pager listed below: User placing orde rs pager: [phone] cell LAST CREATININE 1.6 H (05/11/22) Report Status: Verified Date Reported: MAY 11, 2022 Date Verified: MAY 11, 2022 Food Counselor E-Sig:/ES/SONJA OVALLES MD Report: CHEST 1 VIEW [...] Primary Interpreting Staff: SONJA OVALLES MD, RADIOLOGIST (Food Counselor) /[facility] May 10, 2022 03:49 CT HEAD (P): RADIOLOGY,OUTSIDE [facility] PM LUISANA EDDY [id number] -1935 M SERVICE Exm Date: MAY 10, 2022@15:49 Req Phys: CODIE LEON Loc: OP Unknown /05-13-2022@05:05 Img Loc: CT IMAGING Service: PRIMARY CARE - MED OFFICE (Case [id number] COMPLETE) CT HEAD/BRAIN W/O CONTRAST (CT Detailed) CPT:00443 Reason for Study: CHANGE IN MENTAL STATUS Clinical History: CHANGE IN MENTAL STATUS. ORDER ADMINISTRATIVELY ENTERED FOLLOWING SYSTEM OUTAGE. Report Status: Verified Date Reported: MAY 10, 2022 Date Verified: MAY 10, 2022 Food Counselor E-Sig: Report: CT HEAD/BRAIN W/O CONTRAST [PRINTSET] HISTORY: Change in mental status. COMPARISON: CT from 05/07/2022. TECHNIQUE: Contiguous axial CT images from the level of the skull base through the skull apex, with coronal and s agittal reformats, performed at the local [place] facility. 321 images were received by the [place] National Teleradiology Program (NTP) for interpretation. RADIATION [...] prior study. READING PHYSICIAN: Akash Mccoy M.D. -[phone] 05/10/2022 17:35 PDT [facility] National Teleradiology Program [phone] (For Medical Practitioner Use Only ) Attention Patients / Veterans: If you have ques tions or concerns about these test results, please contact your o rdering provider or primary care team. Primary Interpreting Staff: RADIOLOGY,OUTSIDE SERVICE, Staff Physician / May 08, 2022 07:45 CT T-SPINE (P): RADIOLOGY,OUTSIDE [facility] LUISANA EDDY [id number] -1935 M SERVICE Exm Date: MAY 08, 2022@19:45 Req Phys: CODIE LEON Loc: OP Unknown /05-13-2022@05:05 Img Loc: CT IMAGING Service: PRIMARY CARE - MED OFFICE (Case [id number] COMPLETE) CT SPINE THORACIC W/O CONTR AST (CT Detailed) CPT:13020 Reason for Study: mrsa bacteremia, spinal surge ry - r/o abscess or discitis Clinical History: IS NOT under investigation for COVID-19 or is COVID-19 negative Defer to radiologist for final CT protocol. Responsible provider name and phone number to n otify for critical findings if other than user placing the order a nd pager listed below: User placing orders pager: [phone] LAST 3: Collection DT Specimen Test Name [...] GFR (eGF 44 L Ref: >=60 Allergies: ([place] only) SIMVASTATIN (Feb 29, 2004) CEPHALEXIN (Mar 01, 2004) Report Status: Verified Date Reported: MAY 08, 2022 Date Verified: MAY 08, 2022 Food Counselor E-Sig: Report: CT SPINE THORACIC W/O CONTRAST [PRINTSET] HISTORY:MRSA bacteremia NUMBER OF IMAGES:1151 COMPARISON: Correlation with images from recent CT abdomen and pelvis May 06, 2022 TECHNIQUE: A non contrast CT of the thoracic sp ine was performed [place] the local [place]. Images were subsequently sent to [facility] for interpretation. Axial, coronal and sagittal reformats [...] thoracic level. READING PHYSICIAN: Luisana Webb MD -[id number] 48 05/08/2022 19:20 PDT [facility] National Teleradiology Program [phone] (For Medical Practitioner Use Only ) Attention Patients / Veterans: If you have ques tions or concerns about these test results, please contact your [facility] provider or primary care team. Primary Interpreting Staff: RADIOLOGY,OUTSIDE SERVICE, Staff Physician / May 08, 2022 04:48 CHEST 1 VIEW: RADIOLOGY,OUTSIDE [facility] PM LUISANA EDDY [id number] -1935 M SERVICE Exm Date: MAY 08, 2022@16:48 Req Phys: CODIE LEON Loc: OP Unknown /05-13-2022@05:05 Img Loc: MAIN X-RAY Service: PRIMARY CARE - MED OFFICE (Case [id number] COMPLETE) CHEST 1 VIEW (RAD Detailed) CPT:55609 Proc Modifiers : PORTABLE EXAM Reason for Study: dyspnea Clinical History: [place] IS NOT under investigation for COVID-19 or is COVID-19 negative acute worsening of dyspnea Responsible provider name and phone number to notify for critical findings if other than user placing the order and pager listed below: User placing orders pager: [phone] malini cell [phone] LAST CREATININE 1.1 (05/08/22) Report Status: Verified Date Reported: MAY 08, 2022 Date Verified: MAY 08, 2022 Food Counselor E-Sig: Report: CHEST 1 VIEW HISTORY: dyspnea COMPARISON: 05/06/2022 TECHNIQUE: Frontal view(s) of the chest, submit nola to the [place] National Teleradiology Program (NTP) for interp retation. FINDINGS: Reduced lung volumes. Progressive cardiomegaly, and vascular congestion as well as diffuse interstitial prom inence with probable small effusions. Impression: Expiratory exam with findings of CHF and mild e santa READING PHYSICIAN: Nghia Menjivar M.D. -[id number] 10 05/08/2022 18:57 EDT [facility] National Teleradiology Program [phone] (For Medical Practitioner Use Only ) Attention Patients / Veterans: If you have ques tions or concerns about these test results, please contact your o rdering provider or primary care team. Primary Interpreting Staff: RADIOLOGY,OUTSIDE SERVICE, Staff Physician / May 07, 2022 10:29 CT HEAD (P): SHANI POLANCO [facility] LUISANA EDDY [id number] -1935 M Exm Date: MAY 07, 2022@10:29 Req Phys: LUCY,RIMA Chantal Loc: OP Unknown/0 05-13-2022@05:05 Img Loc: CT IMAGING Service: PRIMARY CARE - MED OFFICE (Case [id number] COMPLETE) CT HEAD/BRAIN W/O CONTRAST ( CT Detailed) CPT:05559 Reason for Study: seizure noted at [facility] Clinical History: IS NOT under investigation for COVID-19 or is COVID-19 negative Defer to radiologist for final CT protocol. Responsible provider name and phone number to n otify for critical findings if other than user placing the order a nd pager listed below: User placing orders pager: [phone] LAST 3: Collection DT Specimen Test Name [...] GFR (eGF 44 L Ref: >=60 Allergies: ([place] only) SIMVASTATIN (Feb 29, 2004) CEPHALEXIN (Mar 01, 2004) Report Status: Verified Date Reported: MAY 07, 2022 Date Verified: MAY 07, 2022 Food Counselor E-Sig:/ES/SHANI POLANCO MD Report: EXAM: CT HEAD/BRAIN W/O CONTRAST HISTORY: seizure noted at [facility] Reason for Study: seizure noted at [facility] [place] IS NOT under investigation for COVID-19 or is COVID-19 negative Defer to radiologist for final CT prot ocol. Responsible provider name and phone number to notify for cr itical findings if other than user placing the order and pager lis nola below: User placing orders pager: [phone] LAST 3: Collecti on DT Specimen Test [...] Primary Interpreting Staff: SHANI POLANCO MD, RADIOLOGIST (Food Counselor) /Javed May 06, 2022 11:40 CHEST 1 VIEW: RADIOLOGY,OUTSIDE [facility] AM LUISANA EDDY [id number] -1935 M SERVICE Exm Date: MAY 06, 2022@11:40 Req Phys: MODESTA VILLANUEVA Loc: [facility] EMERGENCY DEPT WALK-IN (Re Img Loc: MAIN X-RAY Service: Unknown (Case 73 COMPLETE) CHEST 1 VIEW (RAD Detailed) C PT:15816 Proc Modifiers : PORTABLE EXAM Reason for Study: fever, back pain Clinical History: Reason for Exam: Severe Sepsis Pathway to Evalu ate Volume Status and Source of Sepsis IS under investigation ([facility]) for COVID- 19 or is COVID-19+ 86 yo M with fever, back pain Responsible provi violeta name and phone number to notify for critical findings if other than user placing the order and pager listed below: User placing orders pager: [phone] LAST CREATININE 1.2 (04/30/22) Report Status: Verified Date Reported: MAY 06, 2022 Date Verified: MAY 06, 2022 Food Counselor E-Sig: Report: Technique: Frontal chest. No comparison Impression: Cardiac silhouette is mildly enlarged. There is mild pulmonary venous congestion. No definite pleural effusion . No pneumothorax seen. READING PHYSICIAN: Vern Donnelly M.D. -[id number] 07 05/06/2022 13:26 EDT [facility] National Teleradiology Program [phone] (For Medical Practitioner Use Only ) Attention Patients / Veterans: If you have ques tions or concerns about these test results, please contact your [facility] provider or primary care team. Primary Interpreting Staff: RADIOLOGY,OUTSIDE SERVICE, Staff Physician / May 06, 2022 10:36 CT (AP) ABDOMEN/PELVIS (P): RADIOLOGY,OUTSIDE [facility] LUISANA EDDY [id number] -1935 M SERVICE Exm Date: MAY 06, 2022@10:36 Req Phys: MODESTA VILLANUEVA Loc: [facility] EMERGENCY DEPT WALK-IN (Re Img Loc: CT IMAGING Service: Unknown (Case 66 COMPLETE) CT (AP) ABDOMEN/PELVIS W CONT RAST(CT Detailed) CPT:21318 Reason for Study: fever, back pain Clinical [...] pager listed below: User placing orders pager: [phone] LAST 3: Collection DT Specimen Test Name [...] ESTIMATED GFR(eGF 44 L Ref: >=60 Allergies: ([place] only) SIMVASTATIN (Feb 29, 2004) CEPHALEXIN (Mar 01, 2004) To see allergies from all [facility] locations click Re ports tab>Remote Data>All Available Sites>Clinical Reports>Aller gies. Report Status: Verified Date Reported: MAY 06, 2022 Date Verified: MAY 06, 2022 Food Counselor E-Sig: Report: Exam: CT (AP) ABDOMEN/PELVIS W CONTRAST [PRINTS ET] Clinical History: fever, back pain Number of images: 918 Comparison: No priors available Technique: The study was protocoled and supervi sed at the local [facility] of the abdomen and pelvis was performed afte r the uneventful administration of iodinated contrast. Images we re received by the [place] National Teleradiology Program (NTP) for interpretation. Total [...] findings, above. READING PHYSICIAN: Eduin Donaldson M.D. -[id number] [phone] 05/06/2022 12:48 [facility] National Teleradiology Program [phone] (For Medical Practitioner Use Only ) Attention Patients / Veterans: If you have ques tions or concerns about these test results, please contact your [facility] provider or primary care team. Primary Interpreting Staff: RADIOLOGY,OUTSIDE SERVICE, Staff Physician / May 06, 2022 10:35 CT HEAD/BRAIN W/O CONTRAST: RADIOLOGY,OUTSIDE [facility] AM LUISANA EDDY [id number] -1935 SERVICE Exm Date: MAY 06, 2022@10:35 Req Phys: MODESTA VILLANUEVA Loc: [facility] EMERGENCY DEPT WALK-IN (Re Img Loc: CT IMAGING Service: Unknown (Case 64 COMPLETE) CT HEAD/BRAIN W/O CONTRAST (C T Detailed) CPT:75766 Reason for Study: falls, blood thinner, AMS, se izure Clinical History: falls, blood thinner, AMS, seizure [place] IS under investigation (PUI) for COVID- 19 or is COVID-19+ Defer to radiologist for final CT protocol. Responsible provider name and phone number to n otify for critical findings if other than user placing the order a nd pager listed below: User placing orders pager: [phone] LAST 3: Collection DT Specimen Test Name [...] ESTIMATED GFR(eGF 44 L Ref: >=60 Allergies: ([facility]) SIMVASTATIN (Feb 29, 2004) CEPHALEXIN (Mar 01, 2004) To see allergies from all [facility] locations click Re ports tab>Remote Data>All Available Sites>Clinical Reports>Aller gies. Report Status: Verified Date Reported: MAY 06, 2022 Date Verified: MAY 06, 2022 Food Counselor E-Sig: Report: CT HEAD/BRAIN W/O CONTRAST Clinical History: falls, blood thinner, AMS, se izure Number of Images: 532 Comparison: 03/12/2022 Technique: The study was protocoled and supervi sed at the local [facility] facility. CT of the head without contrast. I mages were subsequently received by the [place] [facility] Telera diology [facility] (NTP) for interpretation. [...] T findings. READING PHYSICIAN: Eduin Donaldson M.D. -[phone] 05/06/2022 12:30 [facility] National Teleradiology Program [phone] (For Medical Practitioner Use Only ) Attention Patients / Veterans: If you have ques tions or concerns about these test results, please contact your o rdering provider or primary care team. Primary Interpreting Staff: RADIOLOGY,OUTSIDE SERVICE, Staff Physician / May 06, 2022 10:35 CT CERVICAL SPINE W/O CONTRAST: RADIOLOGY,OUT SIDE [facility] AM LUISANA EDDY [id number] -1935 M SERVICE Exm Date: MAY 06, 2022@10:35 Req Phys: MODESTA VILLANUEVA Loc: [facility] EMERGENCY DEPT WALK-IN (Re Img Loc: CT IMAGING Service: Unknown (Case 65 COMPLETE) CT CERVICAL SPINE W/O CONTRAS T (CT Detailed) CPT:49684 Reason for Study: falls, blood thinner, AMS, se izure Clinical History: falls, blood thinner, AMS, seizure IS under investigation (PUI) for COVID- 19 or is COVID-19+ Defer to radiologist for final CT protocol. Responsible provider name and phone number to n otify for critical findings if other than user placing the order a nd pager listed below: User placing orders pager: [phone] LAST 3: Collection DT Specimen Test Name [...] ESTIMATED GFR(eGF 44 L Ref: >=60 Allergies: ([place] only) SIMVASTATIN (Feb 29, 2004) CEPHALEXIN (Mar 01, 2004) To see allergies from all [place] locations click Re ports tab>Remote Data>All Available Sites>Clinical Reports>Aller gies. Report Status: Verified Date Reported: MAY 06, 2022 Date Verified: MAY 06, 2022 Food Counselor E-Sig: Report: CT CERVICAL SPINE W/O CONTRAST HISTORY:falls, blood thinner, AMS, seizure NUMBER OF IMAGES:770 COMPARISON: None available. TECHNIQUE: A non contrast CT of the cervical sp ine was performed [place] the local [place]. Images were subsequently sent to [facility] for interpretation. Axial, coronal and sagittal reformats [...] 11 mm subcutaneous cyst in the ri t upper neck. Impression: -Motion artifact limits the exam. -Given this limitation, no acute osseous abnorm ality. -Moderate multilevel degenerative change throug hout the cervical spine. -Ancillary findings, above. READING PHYSICIAN: Eduin Donaldson M.D. -[phone] 05/06/2022 12:33 [facility] National Teleradiology Program [phone] (For Medical Practitioner Use Only ) Attention Patients / Veterans: If you have ques tions or concerns about these test results, please contact your [facility] provider or primary care team. Primary Interpreting [...] the Encounter. The data comes from all [place] treatment facilities. Date/Time Pathology Report Provider Source May 09, 2022 05:30 AM LR MICROBIOLOGY REPORT: [facility] Reporting Lab: [facility] [CLIA# [id number]] [place] [address] Accession [UID]: [id number] [[id number]] Receiv ed: May 09, 2022@01:35 Collection sample: BLOOD Collection date: Apr 05:30 Provider: CODIE LEON Comment on specimen: LEFT ARM, RECEIVED 2 BLOOD CULTURE BOTTLES Test(s) ordered: CULTURE & SUSCEPTIBILITY...... 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 R TRIMETH/SULFA................. S TETRACYCLINE.................. S CLINDAMYCIN................... S RIFAMPIN...................... S VANCOMYCIN.................... S Bacteriology Remark(s): VANCOMYCIN SHAMIKA: <=0.5 ug/mL THIS REPORT IS FINAL =--=--=--=--=--=--=--=--=--=--=--=--=--= --=--=--=--=--=--=--=--=--=--=--=--=-- Performing Laboratory: Bacteriology Report Performed By: [facility] [CLIA# [id number]] [place] [address] May 08, 2022 03:23 PM LR MICROBIOLOGY REPORT: [facility] Reporting Lab: [facility] [CLIA# [id number]] [place] [address] Accession [UID]: [id number] [[id number]] Receiv ed: May 08, 2022@15:41 Collection sample: BLOOD Collection date: Apr 15:23 Provider: CODIE LEON Comment on specimen: LEFT ARM, RECEIVED 2 BLOOD CULTURE BOTTLES Test(s) ordered: CULTURE & SUSCEPTIBILITY...... 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 from Anaerobic bottle ) ( Recovered from Aerobic bottle ) Bacteriology Remark(s): THIS REPORT IS FINAL =--=--=--=--=--=--=--=--=--=--=--=--=--= --=--=--=--=--=--=--=--=--=--=--=--=-- Performing Laboratory: Bacteriology Report Performed By: [facility] [CLIA# [id number]] [place] [address] May 08, 2022 03:21 PM LR MICROBIOLOGY REPORT: [facility] Reporting Lab: [facility] [CLIA# [id number]] [place] [address] Accession [UID]: [id number] [[id number]] Receiv ed: May 08, 2022@15:40 Collection sample: BLOOD Collection date: Apr 15:21 Provider: CODIE LEON Comment on specimen: RT ARM, RECEIVED 2 BLOOD CU LTURE BOTTLES Test(s) ordered: CULTURE & SUSCEPTIBILITY...... 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 bottle ) ( Recovered from Aerobic bottle ) Bacteriology Remark(s): THIS REPORT IS FINAL =--=--=--=--=--=--=--=--=--=--=--=--=--= --=--=--=--=--=--=--=--=--=--=--=--=-- Performing Laboratory: Bacteriology Report Performed By: [facility] [CLIA# [id number]] [place] [address] May 07, 2022 05:30 AM LR MICROBIOLOGY REPORT: [facility] Reporting Lab: [facility] [CLIA# [id number]] [place] [address] Accession [UID]: [id number] [[id number]] Receiv ed: May 07, 2022@01:35 Collection sample: [...] REPORT SEE PREVIOUS POSITIVE SAME MB 22 88232 ( 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 from Aerobic bottle ) ( Recovered from Anaerobic bottle ) Bacteriology Remark(s): THIS REPORT IS FINAL =--=--=--=--=--=--=--=--=--=--=--=--=--= --=--=--=--=--=--=--=--=--=--=--=--=-- Performing Laboratory: Bacteriology Report Performed By: [facility] [CLIA# [id number]] [place] [address] May 06, 2022 10:51 AM LR MICROBIOLOGY REPORT: [facility] Reporting Lab: [facility] [CLIA# [id number]] [place] [address] Accession [UID]: [id number] [[id number]] Receiv ed: May 06, 2022@11:32 Collection sample: [...] --=--=--=--=--=--=--=--=--=--=--=--=-- Performing Laboratory: Bacteriology Report Performed By: [facility] [CLIA# [id number]] [place] [address] May 06, 2022 10:34 AM LR MICROBIOLOGY REPORT: [facility] Reporting Lab: [facility] [CLIA# [id number]] [place] [address] Accession [UID]: [id number] [[id number]] Receiv ed: May 06, 2022@10:51 Collection sample: BLOOD Collection date: Apr 10:34 Provider: MODESTA VILLANUEVA Comment on specimen: RECEIVED 2 BLOOD [facility]ULTURE [facility] Test(s) ordered: CULTURE & SUSCEPTIBILITY...... completed: May 07, 2022 * BACTERIOLOGY FINAL REPORT => May 08, 2022 08:3 0 TECH CODE: [id number] CULTURE RESULTS: STAPHYLOCOCCUS AUREUS METHICILL IN RESISTANT [...] --=--=--=--=--=--=--=--=--=--=--=--=-- Performing Laboratory: Bacteriology Report Performed By: [facility] [CLIA# [id number]] [place] [address] May 06, 2022 10:00 AM LR MICROBIOLOGY REPORT: [facility] Reporting Lab: [facility] [CLIA# [id number] 147] [place] [address] Accession [UID]: [id number] [[id number]] Receiv ed: May 06, 2022@10:41 Collection sample: [...] SUSCEPTIBILITY REPORT SEE PREVIOUS POSITIVE SAME 22 12907 ( 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 Date/Time Encounter Note(s) Provider Source Apr 26, 2022 10:00 AM NEUROPSYCHOLOGY NOTE: [facility] LOCAL TITLE: NEUROPSYCHOLOGY PROGRESS NOTE STANDARD TITLE: NEUROPSYCHOLOGY NOTE DATE OF NOTE: APR 26, 2022@10:00 ENTRY DATE: APR 26, 2022@12:20:48 AUTHOR: FILIBERTO DOWNS EXP COSIGNER: URGENCY: STATUS: COMPLETED Reason for Visit: Mr. Jef owens presented on time with his caregivers for today's appointment. The purpose of the appointment was to provide feedback regarding the results of his recent neuropsychological yessica luation. Appointment was conducted via [facility] per his request. His l ocation, access to 911 services, phone number, and emergency contact were confirmed. Ca jaquan Mazariegos and Nathaniel participated in the call with [...] unspecified (ICD-10-CM F41.9) PATIENT CONSENT/EDUCATION: [facility], [place] provided consent to procedures and reported understanding of the limits to confidentiality. Today indicated readaaron ss to learn for the education provided during this session as noted above. Michelle bae also indicated understanding by asking questions and making meghan ropriate comments. 1. MEDICAL FOLLOW-UP: a. The [place] and his caregivers are encouraged to persist with vitamin B12 injections and to follow-up with Neurology for o ngoing monitoring of neurological symptoms. b. Careful management of blo od pressure, cholesterol and blood sugar levels, and weight is encouraged for stroke prevention. c. The [place] is encouraged to continue to disc uss pain management with his prescribing providers, as [facility] pain and side effects of narcotic medication can affect cognition. d. Sleep is understandably d isrupted related to pain and an unfamiliar sleeping environment. He is encouraged to monitor his sle ep, focus on optimal sleep hygiene techniques, and disc uss sleep disruption with his providers should this persist. 2. MENTAL HEALTH a. The is encouraged to follow-up with his providers at his facility who prescribed Zoloft regarding anxiety and mood man agement. In addition, he may benefit from relaxation strategies and continued discussion of his daily schedule to determine reasonable expectations wi family and providers. b. To optimize brain functioning, overall mental health, and quality of life, the [place] is encouraged to continue to focus on [...] notes if needed, check in with the [place] frequ ently to gauge his understanding, and summarize information at the end to assist with recall b. When approach a multi-step task with the [place], write down concrete steps that can be [...] SUPPORT: The is currently well-supported in his detention facility and by kaykay gandhi and friends. They are encouraged to discuss most appropriate living environme nt and need for additional support with Primary Care and his facility providers to explore appropriat e resources as needed. 5. ADDITIONAL SUPPORT: Given the 's cogni tive disorder and significant caregiving responsibilities of Nathaniel and Araceli, they may benefit from ideas and support offered through [place] [employer] [employer] and supportive community organizations such as the Alzheimer's Associ[employer] n, which is a community organization for individuals and families managi ng ANY type of dementia, not just Alzheimer's disease. [facility] resources were discussed during feedback. Nathaniel is interested in [place] Care[facility] r resources and will be referred to the program and mailed information as well. 6. NEUROPSYCHOLOGY FOLLOW-UP: Follow-up evaluati on is recommended in 12-18 months if clinically indicated (e.g., if they merino ve questions about changes in his cognitive functioning) to assist with monito ring cognitive and functional knife changer time, and to provide updated recomme ndations. SAFETY ASSESSMENT: The [place] explicitly denied suicidal ideation, intent, or plan. Risk factors: race, gender, age, complex medical status, anxiety Protective factors: engaged in healthcare, future- and goal-oriented, excellent support from niece and neighbor Risk assessment: Based on cu rrent risk and protective factors, acute and chronic risk for suicide is low The [place] and his caregive rs were encouraged to call with any future questions or concerns. Time: 10am- 10:50am (50 minutes) /ronni/ FILIBERTO DWONS, PHD, LP, ABPP STAFF NEUROPSYCHOLIGST Signed: 04/26/2022 12:25
--- OUTSIDE RECORDS SUMMARY | 2022-05-15 09:20 | XMS_ITS | Encounter Summary ---
:1935 Author Organization [facility] rs Address [address] [place] [phone] Support Name Relationship Address Phone WADE LORENZO Unavailable [id number] [place] [address] WADE LORENZO Unavailable [address] [place] [address] ARACELI MARSHALL Unavailable [address] [facility] [place] [address] MARILIA MARSHALLA Unavailable [address] [place] [address] Insurance Providers: All historical and current Section [...] [place] M[place] Aug 19, [id number] [facility] [facility]WNR[facility] 2017 8 [id number] [phone] [facility] 1 [place] MEDIC[place] M[place] Aug 19, [id number] Kristel [facility] (WNR[facility]ANTAGE (WNR) 2016 8 [id number] [phone] [facility] 1 Selected Encounter This section includes the information on record at [place] for the Encounter. Date/Time Encounter Type Encounter Reason Provider Source Description Apr 30, 2022 OFFICE O/P EST PRIMARY ICD-10-CM I48.20 NENA GUNTER 08:00 AM HI 40-54 MIN CARE/MEDICINE Chronic atrial JOANNE L fibrillation, unspecified with Provider Comments: Chronic atrial fibrillation ([facility] [id number]) IHE Encounter Template Text not used by [place] Assessments - Encounter Diagnoses This section includes the primary and secondary diagnoses documented for the Encounter. Date/Time Primary/Secondary Diagnosis Name Provider Source Diagnosis Apr 30, 2022 PRIMARY Chronic atrial BETH GUNTER [facility] 08:48 AM fibrillation, SSA L HCS unspecified Plan of Treatment: Future Appointments (+ 6 months) and Future Tests (+/- 45 days) The Plan of Treatment section includes future care activities for the patient from all [place] [facility]. This section includes future appointments and future orders which are active, pending orscheduled.Future Appointments This section includes appointments that were scheduled to occur 6 months from the date of the Encounter, up to a maximum of 20 appointments. The data comes from all [place] treatment [facility]. Appointment Date/Time Appointment Type Appointment Facili ty Name May 01, 2022 11:06 AM AMBULATORY - NONE [facility] May 06, 2022 09:40 AM AMBULATORY - MEDICINE [facility] May 11, 2022 06:15 PM AMBULATORY - NONE [facility] Jul 23, 2022 08:00 AM AMBULATORY - NEUROLOGY [facility] Active, Pending, and Scheduled Orders This section includes a listing of several types of active, pending, and scheduled orders, including clinic medications orders, diagnostic test orders, procedure orders and consult orders; where the start date of the order is 45 days before the date of the Encounter or 45 days after the date of the Encounter. The data comes from all [facility]. Test Date/Time Test Type Test Details Facility Name Apr 30, 2022 08:21 Laboratory - Chemistry URINALYSIS URINE WC ON [facility] AM Order Apr 30, 2022 08:21 Laboratory - CULTURE & SUSCEPTIBILITY [facility] AM Microbiology Order URINE May 06, 2022 12:00 Laboratory - Blood ABO/RH - LAB BLOOD [facility] AM Bank Order May 06, 2022 10:11 Laboratory - Blood TYPE & SCREEN - LAB [facility] AM Bank Order BLOOD May 06, 2022 10:27 Pharmacy [facility] AM Medication Order May 06, 2022 10:28 Pharmacy [facility] AM Infusion Order May 06, 2022 10:34 Pharmacy [facility] AM Infusion Order May 06, 2022 10:41 Pharmacy - [facility] AM Infusion Order May 06, 2022 12:15 Pharmacy - [facility] PM Medication Order May 06, 2022 01:31 Pharmacy - [facility] PM Medication Order May 06, 2022 04:49 Pharmacy - [facility] PM Medication Order May 07, 2022 01:00 Laboratory - CULT[facility] & [facility]USCEPTIBILITY [facility] PM Microbiology Order BLOOD WC ONCE May 11, 2022 09:07 [facility] Microbiology Order BLOOD WC May 11, 2022 09:07 [facility] Microbiology Order BLOOD WC May 11, 2022 09:38 Laboratory - Chemistry EOSINOPHIL SMEAR,URINE [facility] AM Order URINE WC ONCE May 11, 2022 09:38 Laboratory - Chemistry URINALYSIS URINE WC ON CE [facility] AM Order May 11, 2022 09:38 Laboratory - Chemistry FENA URINE WC ONCE [facility] Order Lab Results: +/- 30 days [...] Reference Range Comment May 11, 2022 11:13 [facility] FINGERSTICK GLUCOSE Speci men Type: BLOOD AM Comment: Mark casillas Nurse Notified Ordering Provid er: CODIE LEON Report Released Date/Time: May 11, 2022 11:53 AM Reporting Lab: [facility] [address] [facility] [address] Performing Lab: [facility] [address] [facility] [address] FINGERSTICK GLUCOSE 367 H 70-100 May 11, 2022 07:05 [facility] LIVER FUNCTION TESTS Spec imen Type: PLASMA AM No comment enter ed. Ordering Provid er: CODIE LEON Report Released Date/Time: May 11, 2022 09:08 AM Reporting Lab: [facility] [address] [facility] [address] Performing Lab: [facility] [address] [facility] [address] BILIRUBIN, TOTAL 1.6 H 0.2-1.2 ALKALINE PHOSPHATASE 102 40-150 ALT/SGPT 42 <55 AST/SGOT 30 <34 GAMMA GTP 52 <64 DIR. BILIRUBIN 1.2 H <0.5 May 11, 2022 07:05 AM [facility] CK,TOTAL Specim en Type: PLASMA No comment enter ed. Ordering Provid er: CODIE LEON Report Released Date/Time: May 11, 2022 09:08 AM Reporting Lab: [facility] [address] [facility] [address] Performing Lab: [facility] [address] [facility] [address] CK,TOTAL 16 L 39-208 May 11, 2022 07:05 [facility] BASIC METABOLIC Specimen Type: PLASMA AM PANEL+MG No comment enter ed. Ordering Provid er: GO DIAL Report Released Date/Time: May 11, 2022 04:46 AM Reporting Lab: [facility] [address] [facility] [address] Performing Lab: [facility] [facility] [address] CREATININE 1.6 H 0.7-1.2 UREA NITROGEN 28 H 8-26 GLUCOSE 396 H 70-100 SODIUM 150 H 136-145 POTASSIUM 3.7 3.5-5.1 CHLORIDE 120 H 98-107 CO2 23 22-29 CALCIUM 8.4 8.4-10.2 MAGNESIUM 2.1 1.6-2.6 ANION GAP 7 5-15 CREAT EGFR(CKD-EPI) 42 L >60 May 11, 2022 07:05 AM [facility] BNP Specim en Type: PLASMA No comment enter ed. Ordering Provid er: CODIE LEON Report Released Date/Time: May 11, 2022 09:15 AM Reporting Lab: [facility] [address] [facility] [address] Performing Lab: [facility] [address] [facility] [address] BNP 59 <99 May 11, 2022 07:05 AM [facility] CBC Specim en Type: BLOOD No comment enter ed. Ordering Provid er: OG DIAL Report Released Date/Time: May 11, 2022 04:46 AM Reporting Lab: [facility] [address] [facility] [address] Performing Lab: [facility] [address] [facility] [address] WBC 15.93 H 4.0-11.0 RBC 3.60 L 4.6-6.2 HGB 11.2 L 13.5-17.9 HCT 35.3 L 41-54 MCV 98.1 80-100 MCH 31.1 27-33 MCHC 31.7 L 32.0-37.5 PLT 231 150-400 MPV 11.2 H 7.4-10.4 RDW 15.2 H 11.5-14.5 May 11, 2022 06:14 [facility] FINGERSTICK GLUCOSE Speci men Type: BLOOD AM Comment: Mark casillas Nurse Notified Ordering Provid er: CODIE LEON Report Released Date/Time: May 11, 2022 06:42 AM Reporting Lab: [facility] [address] [facility] [address] Performing Lab: [facility] [address] [facility] [address] FINGERSTICK GLUCOSE 345 H 70-100 May 11, 2022 02:24 [facility] FINGERSTICK GLUCOSE Speci men Type: BLOOD AM Comment: Mark casillas Ordering Provid er: CODIE LEON Report Released Date/Time: May 11, 2022 02:44 AM Reporting Lab: [facility] [address] [facility] [address] Performing Lab: [facility] [address] [facility] [address] FINGERSTICK GLUCOSE 375 H 70-100 May 10, 2022 08:38 [facility] FINGERSTICK GLUCOSE Speci men Type: BLOOD PM Comment: Mark casillas Ordering Provid er: CODIE LEON Report Released Date/Time: May 11, 2022 12:31 AM Reporting Lab: [facility] [address] [facility] [address] Performing Lab: [facility] [address] [facility] [address] FINGERSTICK GLUCOSE 346 H 70-100 May 10, 2022 05:05 [facility] FINGERSTICK GLUCOSE Speci men Type: BLOOD PM Comment: Mark casillas Nurse Notified Ordering Provid er: CODIE LEON Report Released Date/Time: May 10, 2022 11:50 PM Reporting Lab: [facility] [address] [facility] [address] Performing Lab: [facility] [address] [facility] [address] FINGERSTICK GLUCOSE 245 H 70-100 May 10, 2022 02:00 [facility] VANCOMYCIN (TROUGH) Speci men Type: PLASMA PM No comment enter ed. Ordering Provid er: CODIE LEON Report Released Date/Time: May 11, 2022 01:34 AM Reporting Lab: [facility] [address] Performing Lab: [facility] [address] VANCOMYCIN (TROUGH) 31.8 H 10.0-15.0 May 10, 2022 [facility] BASIC METABOLIC Specimen Typ e: PLASMA 02:00 PM PANEL+MG No comment enter ed. Ordering Provid er: CODIE LEON Report Released Date/Time: May 11, 2022 01:34 AM Reporting Lab: [facility] [address] Performing Lab: [facility] [address] CREATININE 1.1 .7-1.2 UREA NITROGEN 22 8-26 GLUCOSE 279 H 70-100 SODIUM 150 H 136-145 POTASSIUM 3.2 L 3.5-5.1 CHLORIDE 116 H 98-107 CO2 23 22-29 CALCIUM 8.5 8.4-10.2 MAGNESIUM 2.0 1.6-2.6 ANION GAP 11 5-15 CREAT EGFR(CKD-EPI) 65 >60 May 10, 2022 01:20 PM [facility] CBC & DIFF Specim en Type: BLOOD Comment: Automa nola Differential Performed Ordering Provid er: MD ESTEBAN Report Released Date/Time: May 10, 2022 08:52 PM Reporting Lab: [facility] [address] Performing Lab: [facility] [address] WBC 16.24 H 4.0-11.0 RBC 3.76 L [...] 0.28 H 0-0.1 May 10, 2022 11:07 [facility] FINGERSTICK GLUCOSE Speci men Type: BLOOD AM Comment: Mark casillas Nurse Notified Ordering Provid er: CODIE LEON Report Released Date/Time: May 11, 2022 12:31 AM Reporting Lab: [facility] [address] [facility] [address] Performing Lab: [facility] [address] [facility] [address] FINGERSTICK GLUCOSE 253 H 70-100 May 10, 2022 06:16 [facility] FINGERSTICK GLUCOSE Speci men Type: BLOOD AM Comment: Mark casillas Nurse Notified Ordering Provid er: CODIE LEON Report Released Date/Time: May 10, 2022 11:50 PM Reporting Lab: [facility] [address] [facility] [address] Performing Lab: [facility] [address] [facility] [address] FINGERSTICK GLUCOSE 271 H 70-100 May 09, 2022 09:07 [facility] FINGERSTICK GLUCOSE Speci men Type: BLOOD PM Comment: Mark casillas Ordering Provid er: CODIE LEON Report Released Date/Time: May 10, 2022 11:50 PM Reporting Lab: [facility] [address] [facility] [address] Performing Lab: [facility] [address] [facility] [address] FINGERSTICK GLUCOSE 209 H 70-100 May 09, 2022 05:33 [facility] FINGERSTICK GLUCOSE Speci men Type: BLOOD PM Comment: Mark casillas Nurse Notified Ordering Provid er: CODIE LEON Report Released Date/Time: May 09, 2022 05:53 PM Reporting Lab: [facility] [address] [facility] [address] Performing Lab: [facility] [address] [facility] [address] FINGERSTICK GLUCOSE 251 H 70-100 May 09, 2022 02:09 [facility] VANCOMYCIN (PEAK) Specime n Type: SERUM PM No comment enter ed. Ordering Provid er: AMARIS DE JESUS Report Released Date/Time: May 09, 2022 09:33 AM Reporting Lab: [facility] [address] [facility] [address] Performing Lab: [facility] [address] VANCOMYCIN (PEAK) 24.2 20.0-40.0 May 09, 2022 11:19 [facility] FINGERSTICK GLUCOSE Speci men Type: BLOOD AM Comment: Mark casillas Nurse Notified Ordering Provid er: CODIE LEON Report Released Date/Time: May 09, 2022 11:38 AM Reporting Lab: [facility] [address] Performing Lab: [facility] [address] FINGERSTICK GLUCOSE 240 H 70-100 May 09, 2022 08:13 [facility] VANCOMYCIN (TROUGH) Speci men Type: SERUM AM No comment enter ed. Ordering Provid er: AMARIS DE JESUS Report Released Date/Time: May 08, 2022 11:14 AM Reporting Lab: [facility] [address] [facility] [address] Performing Lab: [facility] [address] VANCOMYCIN (TROUGH) 16.1 H 10.0-15.0 May 09, 2022 05:33 AM [facility] CBC & DIFF Specim en Type: BLOOD Comment: Automa nola Differential Performed Ordering Provid er: CODIE LEON Report Released Date/Time: May 08, 2022 05:27 PM Reporting Lab: [facility] [address] [facility] [address] Performing Lab: [facility] [address] WBC 14.92 H 4.0-11.0 RBC 3.41 L [...] GRAN 0.16 H 0-0.1 May 09, 2022 [facility] COMPREHENSIVE METABOLIC Spec imen Type: PLASMA 05:32 AM PANEL+MG No comment enter ed. Ordering Provid er: CODIE LEON Report Released Date/Time: May 08, 2022 05:27 PM Reporting Lab: [facility] [address] Performing Lab: [facility] [address] CREATININE 1.2 0.7-1.2 UREA NITROGEN 25 8-26 [...] 59 L >60 May 09, 2022 05:16 [facility] FINGERSTICK GLUCOSE Speci men Type: BLOOD AM Comment: Mark casillas Nurse Notified Ordering Provid er: CODIE LEON Report Released Date/Time: May 09, 2022 07:27 AM Reporting Lab: [facility] [address] Performing Lab: [facility] [address] FINGERSTICK GLUCOSE 295 H 70-100 May 08, 2022 09:32 PM [facility] EXTRA MINT TUBE Specim en Type: PLASMA No comment enter ed. Ordering Provid er: MD ESTEBAN Report Released Date/Time: May 08, 2022 09:32 PM Reporting Lab: [facility] [place] [address] Performing Lab: [facility] [address] [facility] [address] EXTRA MINT TUBE RECEIVED May 08, 2022 09:32 PM [facility] EXTRA PURPLE TUBE Spec imen Type: BLOOD No comment enter ed. Ordering Provid er: MD ESTEBAN Report Released Date/Time: May 08, 2022 09:32 PM Reporting Lab: [facility] [address] [facility] [address] Performing Lab: [facility] [address] [facility] [address] EXTRA PURPLE TUBE RECEIVED May 08, 2022 09:32 [facility] EXTRA GOLD GEL TUBE Speci men Type: SERUM PM No comment enter ed. Ordering Provid er: MD ESTEBAN Report Released Date/Time: May 08, 2022 09:32 PM Reporting Lab: [facility] [address] [facility] [address] Performing Lab: [facility] [address] [address] [facility] [address] EXTRA GOLD GEL TUBE RECEIVED May 08, 2022 09:32 PM [facility] EXTRA BLUE TUBE Specim en Type: PLASMA No comment enter ed. Ordering Provid er: MD ESTEBAN Report Released Date/Time: May 08, 2022 09:32 PM Reporting Lab: [facility] [address] [facility] [address] Performing Lab: [facility] [address] [facility] [address] EXTRA BLUE TUBE RECEIVED May 08, 2022 09:32 PM [facility] EXTRA BRASWELL TUBE Specim en Type: PLASMA No comment enter ed. Ordering Provid er: MD ESTEBAN Report Released Date/Time: May 08, 2022 09:37 PM Reporting Lab: [facility] [address] [facility] [address] Performing Lab: [facility] [address] [facility] [address] EXTRA BRASWELL TUBE RECEIVED May 08, 2022 09:32 PM [facility] LACTIC ACID Specim en Type: PLASMA No comment enter ed. Ordering Provid er: OG DIAL Report Released Date/Time: May 08, 2022 09:49 PM Reporting Lab: [facility] [address] [facility] [address] Performing Lab: [facility] [address] [facility] [address] LACTIC ACID 2.5 H 0.5-2.2 May 08, 2022 09:32 PM [facility] BNP Specim en Type: PLASMA No comment enter ed. Ordering Provid er: OG DIAL Report Released Date/Time: May 08, 2022 09:50 PM Reporting Lab: [facility] [address] Performing Lab: [facility] [address] BNP 897 H <99 May 08, 2022 09:32 PM [facility] BLOOD GASES Specim en Type: VENOUS BLOOD Comment: O2 THE RAPY = 3L PM Ordering Provid er: OG DIAL Report Released Date/Time: May 08, 2022 09:50 PM Reporting Lab: [facility] [address] Performing Lab: [facility] [address] PH 7.36 7.33-7.43 PCO2 47 41-51 BICARBONATE 24.4 21.0-30.0 PO2 31 L 35-40 OXYGEN SATURATION 54.7 L 70.0-75.0 PH(TEMP CORRECTED) 7.37 7.33-7.43 PCO2(TEMP CORRECTED) 46 41-51 PO2(TEMP CORRECTED) 31 L 35-40 PATIENT TEMPERATURE 36.7 May 08, 2022 09:32 PM [facility] CBC Specim en Type: BLOOD No comment enter ed. Ordering Provid er: OG DIAL Report Released Date/Time: May 08, 2022 09:50 PM Reporting Lab: [facility] [address] Performing Lab: [facility] [address] WBC 18.54 H 4.0-11.0 RBC 3.68 L 4.6-6.2 HGB 11.5 L 13.5-17.9 HCT 35.1 L 41-54 MCV 95.4 80-100 MCH 31.3 27-33 MCHC 32.8 32.0-37.5 PLT 221 150-400 MPV 11.1 H 7.4-10.4 RDW 14.9 H 11.5-14.5 May 08, 2022 [facility] COMPREHENSIVE METABOLIC Spec imen Type: PLASMA 09:32 PM PANEL+MG No comment enter ed. Ordering Provid er: OG DIAL Report Released Date/Time: May 08, 2022 09:50 PM Reporting Lab: [facility] [address] [facility] [address] Performing Lab: [facility] [address] [facility] [address] CREATININE 1.3 H 0.7-1.2 UREA NITROGEN 26 [...] 54 L >60 May 08, 2022 08:27 [facility] FINGERSTICK GLUCOSE Speci men Type: BLOOD PM Comment: Mark casillas Nurse Notified Ordering Provid er: CODIE LEON Report Released Date/Time: May 08, 2022 08:55 PM Reporting Lab: [facility] [address] Performing Lab: [facility] [address] FINGERSTICK GLUCOSE 272 H 70-100 May 08, 2022 06:56 [facility] FINGERSTICK GLUCOSE Speci men Type: BLOOD PM Comment: Mark casillas Ordering Provid er: CODIE LEON Report Released Date/Time: May 08, 2022 07:08 PM Reporting Lab: [facility] [address] Performing Lab: [facility] [address] FINGERSTICK GLUCOSE 262 H 70-100 May 08, 2022 04:50 [facility] FINGERSTICK GLUCOSE Speci men Type: BLOOD PM Comment: Nurse Notified Ordering Provid er: CODIE LEON Report Released Date/Time: May 08, 2022 05:14 PM Reporting Lab: [facility] [address] Performing Lab: [facility] [address] FINGERSTICK GLUCOSE 330 H 70-100 May 08, 2022 11:21 [facility] FINGERSTICK GLUCOSE Speci men Type: BLOOD AM Comment: Mark casillas Nurse Notified Ordering Provid er: CODIE LEON Report Released Date/Time: May 08, 2022 11:51 AM Reporting Lab: [facility] [address] [facility] [address] Performing Lab: [facility] [address] [facility] [address] FINGERSTICK GLUCOSE 231 H 70-100 May 08, 2022 07:25 AM [facility] CBC & DIFF Specim en Type: BLOOD Comment: Automa nola Differential Performed Ordering Provid er: BETO AYALA Report Released Date/Time: May 07, 2022 12:28 PM Reporting Lab: [facility] [address] [facility] [address] Performing Lab: [facility] [address] [facility] [address] WBC 16.29 H 4.0-11.0 RBC 3.38 L [...] GRAN 0.26 H 0-0.1 May 08, 2022 [facility] PROTHROMBIN TIME/INR Specime n Type: PLASMA 07:25 AM No comment enter ed. Ordering Provid er: BETO AYALA Report Released Date/Time: May 07, 2022 12:28 PM Reporting Lab: [facility] [address] [facility] [address] Performing Lab: [facility] [address] .INR 1.2 H 0.8-1.1 .PT 14.2 H 9.4-12.5 May 08, 2022 [facility] COMPREHENSIVE METABOLIC Spec imen Type: PLASMA 07:25 AM PANEL+MG No comment enter ed. Ordering Provid er: BETO AYALA Report Released Date/Time: May 07, 2022 12:28 PM Reporting Lab: [facility] [address] [facility] [address] Performing Lab: [facility] [address] [facility] [address] CREATININE 1.1 0.7-1.2 UREA NITROGEN 27 H [...] EGFR(CKD-EPI) 65 >60 May 08, 2022 06:53 [facility] FINGERSTICK GLUCOSE Speci men Type: BLOOD AM Comment: Mark casillas Ordering Provid er: CODIE LEON Report Released Date/Time: May 08, 2022 07:18 AM Reporting Lab: [facility] [address] [facility] [address] Performing Lab: [facility] [address] [facility] [address] FINGERSTICK GLUCOSE 276 H 70-100 May 07, 2022 08:36 [facility] FINGERSTICK GLUCOSE Speci men Type: BLOOD PM Comment: Nurse Notified Ordering Provid er: CODIE LEON Report Released Date/Time: May 08, 2022 12:29 AM Reporting Lab: [facility] [address] [facility] [address] Performing Lab: [facility] [address] [facility] [address] FINGERSTICK GLUCOSE 282 H 70-100 May 07, 2022 07:04 PM [facility] LACTIC ACID Specim en Type: PLASMA No comment enter ed. Ordering Provid er: BETO AYALA Report Released Date/Time: May 07, 2022 06:28 PM Reporting Lab: [facility] [address] [facility] [address] Performing Lab: [facility] [address] [facility] [address] LACTIC ACID 2.0 0.5-2.2 May 07, 2022 04:46 [facility] FINGERSTICK GLUCOSE Speci men Type: BLOOD PM Comment: Nurse Notified Ordering Provid er: BETO AYALA Report Released Date/Time: May 07, 2022 05:00 PM Reporting Lab: [facility] [address] [facility] [address] Performing Lab: [facility] [address] [facility] [address] FINGERSTICK GLUCOSE 274 H 70-100 May 07, 2022 12:47 [facility] FINGERSTICK GLUCOSE Speci men Type: BLOOD PM Comment: Mark casillas Nurse Notified Ordering Provid er: BETO AYALA Report Released Date/Time: May 07, 2022 05:32 PM Reporting Lab: [facility] [address] [facility] [address] Performing Lab: [facility] [address] [facility] [address] FINGERSTICK GLUCOSE 309 H 70-100 May 07, 2022 06:35 [facility] FINGERSTICK GLUCOSE Speci men Type: BLOOD AM Comment: Mark casillas Nurse Notified Ordering Provid er: GAYLA DOMINGUEZ Report Released Date/Time: May 07, 2022 06:46 AM Reporting Lab: [facility] [address] [facility] [address] Performing Lab: [facility] [address] [facility] [address] FINGERSTICK GLUCOSE 352 H 70-100 May 07, 2022 06:15 AM [facility] ALBUMIN Specim en Type: PLASMA No comment enter ed. Ordering Provid er: GAYLA DOMINGUEZ Report Released Date/Time: May 06, 2022 06:33 PM Reporting Lab: [facility] [address] [facility] [address] Performing Lab: [facility] [address] [facility] [address] ALBUMIN 3.0 L 3.5-5.2 May 07, 2022 [facility] COMPREHENSIVE METABOLIC Spec imen Type: PLASMA 06:15 AM PANEL+MG No comment enter ed. Ordering Provid er: GAYLA DOMINGUEZ Report Released Date/Time: May 06, 2022 09:11 PM Reporting Lab: [facility] [address] Performing Lab: [facility] [address] CREATININE 1.2 0.7-1.2 UREA NITROGEN 25 8-26 [...] L >60 May 07, 2022 06:15 AM [facility] CBC & DIFF Specim en Type: BLOOD Comment: Manual Differential Performed Ordering Provid er: GAYLA DOMINGUEZ Report Released Date/Time: May 06, 2022 09:11 PM Reporting Lab: [facility] [address] Performing Lab: [facility] [address] WBC 20.25 H 4.0-11.0 RBC 3.54 L [...] NORMOCYTIC, NORMOCHROMIC May 07, 2022 12:19 AM [facility] LACTIC ACID Specim en Type: PLASMA No comment enter ed. Ordering Provid er: GAYLA DOMINGUEZ Report Released Date/Time: May 06, 2022 07:13 PM Reporting Lab: [facility] [address] [facility] [address] Performing Lab: [facility] [address] [facility] [address] LACTIC ACID 2.7 H 0.5-2.2 May 06, 2022 10:45 [facility] FINGERSTICK GLUCOSE Speci men Type: BLOOD PM Comment: Mark casillas Nurse Notified Ordering Provid er: GAYLA DOMINGUEZ Report Released Date/Time: May 07, 2022 12:08 AM Reporting Lab: [facility] [address] [facility] [address] Performing Lab: [facility] [address] [facility] [address] FINGERSTICK GLUCOSE 320 H 70-100 May 06, 2022 06:53 [facility] MRSA SURVL NARES Specimen Type: NARES PM DNA No comment enter ed. Ordering Provid er: GAYLA DOMINGUEZ Report Released Date/Time: May 06, 2022 06:33 PM Reporting Lab: [facility] [address] [facility] [address] Performing Lab: [facility] [address] [facility] [address] MRSA SURVL NARES DNA POSITIVE HH Negative May 06, 2022 06:51 PM [facility] LACTIC ACID Specim en Type: PLASMA No comment enter ed. Ordering Provid er: GAYLA DOMINGUEZ Report Released Date/Time: May 06, 2022 06:04 PM Reporting Lab: [facility] [address] [facility] [address] Performing Lab: [facility] [address] [facility] [address] LACTIC ACID 3.1 H 0.5-2.2 May 06, 2022 06:51 [facility] CARDIAC TROPONIN I Specim en Type: PLASMA PM No comment enter ed. Ordering Provid er: GAYLA DOMINGUEZ Report Released Date/Time: May 06, 2022 06:05 PM Reporting Lab: [facility] [address] [facility] [address] Performing Lab: [facility] [address] [facility] [address] CARDIAC TROPONIN I <0.028 <0.028 May 06, 2022 06:51 [facility] EXTRA GOLD GEL TUBE Speci men Type: SERUM PM No comment enter ed. Ordering Provid er: GAYLA DOMINGUEZ Report Released Date/Time: May 06, 2022 06:52 PM Reporting Lab: [facility] [address] Performing Lab: [facility] [address] EXTRA GOLD GEL TUBE RECEIVED May 06, 2022 06:51 [facility] C-REACTIVE PROTEIN Specim en Type: PLASMA PM No comment enter ed. Ordering Provid er: GAYLA DOMINGUEZ Report Released Date/Time: May 06, 2022 09:29 PM Reporting Lab: [facility] [address] Performing Lab: [facility] [address] C-REACTIVE PROTEIN 392.40 H <5.00 May 06, 2022 10:51 AM [facility] URINALYSIS Specim en Type: URINE No comment enter ed. Ordering Provid er: MODESTA VILLANUEVA Report Released Date/Time: May 06, 2022 10:11 AM Reporting Lab: [facility] [address] Performing Lab: [facility] [address] URINE COLOR YELLOW SPECIFIC GRAVITY 1.020 1.003-1.035 [...] ESTERASE 500 NEGATIVE May 06, 2022 10:24 [facility] COVID-19 DIAGNOSTIC Speci men Type: NASOPHARYNGEAL AM PANEL (CEPHEID) Comment: Cephei d GeneXpert (618) Ordering Provid er: MODESTA VILLANUEVA Report Released Date/Time: May 06, 2022 10:11 AM Reporting Lab: [facility] [address] [facility] [address] Performing Lab: [facility] [address] COVID-19 (CEPHEID) Not Detected Not Dete cted May 06, 2022 10:20 AM [facility] POC ABG/LACTATE Specim en Type: VENOUS BLOOD No comment enter ed. Ordering Provid er: MODESTA VILLANUEVA Report Released Date/Time: May 06, 2022 10:22 AM Reporting Lab: [facility] [address] [facility] [address] Performing Lab: [facility] [address] [facility] [address] POC PH 7.410 7.31-7.41 POC PCO2 28.9 L 35.00-45.00 POC PO2 82 H 35.0-40.0 POC TCO2 19 L 24.0-29.0 POC HCO3 18.3 L 23.0-28.0 POC BE ECT -6 L -2 POC SO2 96 H 70-75 POC LACTATE 3.62 0.90-1.70 May 06, 2022 10:00 AM [facility] PHOSPHORUS Specim en Type: PLASMA No comment enter ed. Ordering Provid er: MODESTA VILLANUEVA Report Released Date/Time: May 06, 2022 10:11 AM Reporting Lab: [facility] [address] [facility] [address] Performing Lab: [facility] [address] [facility] [address] PHOSPHORUS 2.5 2.3-4.7 May 06, 2022 10:00 [facility] PROTHROMBIN TIME/INR Spec imen Type: PLASMA AM No comment enter ed. Ordering Provid er: MODESTA VILLANUEVA Report Released Date/Time: May 06, 2022 10:11 AM Reporting Lab: [facility] [address] [facility] [address] Performing Lab: [facility] [address] [facility] [address] .INR 2.5 H 0.8-1.1 .PT 29.2 H 9.4-12.5 May 06, 2022 10:00 [facility] ACT PART THROMBO TIME Spe cimen Type: PLASMA AM No comment enter ed. Ordering Provid er: MODESTA VILLANUEVA Report Released Date/Time: May 06, 2022 10:11 AM Reporting Lab: [facility] [address] [facility] [address] Performing Lab: [facility] [address] [facility] [address] APTT 37.8 H 25.1-36.5 May 06, 2022 10:00 [facility] CARDIAC TROPONIN I Specim en Type: PLASMA AM Comment: Critic al Value Reported To: BROOKS COTE 05-06-2022 @1053 BY MBB. Critical value report confirmed. Ordering Provid er: MODESTA VILLANUEVA Report Released Date/Time: May 06, 2022 10:11 AM Reporting Lab: [facility] [address] [facility] [address] Performing Lab: [facility] [address] [facility] [address] CARDIAC TROPONIN I 0.035 HH <0.028 May 06, 2022 10:00 AM [facility] LIPASE Specim en Type: PLASMA No comment enter ed. Ordering Provid er: MODESTA VILLANUEVA Report Released Date/Time: May 06, 2022 10:11 AM Reporting Lab: [facility] [address] [facility] [address] Performing Lab: [facility] [address] [facility] [address] LIPASE <4 <60 May 06, 2022 10:00 AM [facility] PROCALCITONIN Specim en Type: PLASMA No comment enter ed. Ordering Provid er: MODESTA VILLANUEVA Report Released Date/Time: May 06, 2022 10:11 AM Reporting Lab: [facility] [address] [facility] [address] Performing Lab: [facility] [address] [facility] [address] PROCALCITONIN 22.29 H <0.09 May 06, 2022 [facility] COMPREHENSIVE METABOLIC Spec imen Type: PLASMA 10:00 AM PANEL+MG Comment: Manual Differential Performed Ordering Provid er: MODESTA VILLANUEVA Report Released Date/Time: May 06, 2022 10:11 AM Reporting Lab: [facility] [address] [facility] [address] Performing Lab: [facility] [address] [facility] [address] CREATININE 1.3 H 0.7-1.2 UREA NITROGEN 25 [...] 54 L >60 May 06, 2022 10:00 [facility] EXTRA GOLD GEL TUBE Speci men Type: SERUM AM No comment enter ed. Ordering Provid er: LINNEA RAND Report Released Date/Time: May 06, 2022 10:25 AM Reporting Lab: [facility] [address] [facility] [address] Performing Lab: [facility] [address] [facility] [address] EXTRA GOLD GEL TUBE RECEIVED May 06, 2022 10:00 AM [facility] CBC & DIFF Specim en Type: BLOOD Comment: Manual Differential Performed Ordering Provid er: MODESTA VILLANUEVA Report Released Date/Time: May 06, 2022 10:11 AM Reporting Lab: [facility] [facility] [address] Performing Lab: [facility] [address] WBC 18.82 H 4.0-11.0 RBC 3.70 L [...] .RBC MORPHOLOGY PRESENT May 06, 2022 09:46 [facility] FINGERSTICK GLUCOSE Speci men Type: BLOOD AM Comment: Mark casillas Nurse Notified Ordering Provid er: MODESTA VILLANUEVA Report Released Date/Time: May 06, 2022 09:59 AM Reporting Lab: [facility] [address] [facility] [address] Performing Lab: [facility] [address] [facility] [address] FINGERSTICK GLUCOSE 369 H 70-100 Apr 30, 2022 09:17 AM [facility] CBC Specim en Type: BLOOD No comment enter ed. Ordering Provid er: BILL GUNTER Report Released Date/Time: Apr 30, 2022 08:21 AM Reporting Lab: [facility] [address] Performing Lab: [facility] [address] WBC 10.40 4.0-11.0 RBC 3.96 L 4.6-6.2 HGB 12.3 L 13.5-17.9 HCT 37.8 L 41-54 MCV 95.5 80-100 MCH 31.1 27-33 MCHC 32.5 32.0-37.5 PLT 286 150-400 MPV 10.1 7.4-10.4 RDW 14.6 H 11.5-14.5 Apr 30, 2022 [facility] BASIC METABOLIC Specimen Typ e: PLASMA 09:17 AM PANEL+MG No comment enter ed. Ordering Provid er: BILL GUNTER Report Released Date/Time: Apr 30, 2022 08:21 AM Reporting Lab: [facility] [address] Performing Lab: [facility] [address] CREATININE 1.2 0.7-1.2 UREA NITROGEN 26 8-26 GLUCOSE 140 H 70-100 SODIUM 138 136-145 POTASSIUM 3.8 3.5-5.1 CHLORIDE 107 98-107 CO2 20 L 22-29 CALCIUM 9.4 8.4-10.2 MAGNESIUM 1.7 1.6-2.6 ANION GAP 11 5-15 CREAT EGFR(CKD-EPI) 59 L >60 Apr 02, 2022 02:37 PM [facility] B 12 Specim en Type: SERUM No comment enter ed. Ordering Provid er: MADISON SOL Report Released Date/Time: Apr 02, 2022 02:05 PM Reporting Lab: [facility] [address] Performing Lab: [facility] [address] B 12 234 213-816 Apr 02, 2022 [facility] LIVER FUNCTION TESTS Specime n Type: PLASMA 02:37 PM No comment enter ed. Ordering Provid er: MADISON SOL Report Released Date/Time: Apr 02, 2022 02:05 PM Reporting Lab: [facility] [address] [facility] [address] Performing Lab: [facility] [address] BILIRUBIN, TOTAL 0.5 0.2-1.2 ALKALINE PHOSPHATASE 108 40-150 ALT/SGPT 24 <55 AST/SGOT 18 <34 GAMMA GTP 34 <64 Apr 02, 2022 02:37 PM [facility] AMMONIA Specim en Type: PLASMA No comment enter ed. Ordering Provid er: MADISON SOL Report Released Date/Time: Apr 02, 2022 02:05 PM Reporting Lab: [facility] [address] Performing Lab: [facility] [address] AMMONIA <14 <72 Apr 02, 2022 [facility] METHYLMA ACID, [place] Specime n Type: SERUM 02:37 PM Comment: This t est was developed and its analytical performance characteristics have been determined by [employer] [place], [place]. It has not been cleared or approved by the U.S . Food and Drug Administration. This assay has been validated pursuant to the CLIA regulations and is used for clinical purposes. Test Performed by [facility], [facility], [address] [place] [address] Domenic Miller M.D., Ph.D., Director of Laboratories , CLIA [id number] Ordering Provid er: MADISON SOL Report Released Date/Time: Apr 02, 2022 04:37 PM Reporting Lab: [facility] [address] Performing Lab: [address] METHYLMA ACID, QUEST 406 H 87-318 Vital Signs: All taken on the encounter date This section contains inpatient and outpatient Vital Signs collected on the date of the Encounter. Date/Time Temperature Pulse Blood Respiratory SP02 Pain Height Weight [place] dy Source Pressure Rate Mass Index Apr 30, 98.2 F 129/69 18 /min 98 % [place] 2021 07:57 mm[Hg] [facility] Social History: Smoking Status (Most current) [...] 2022 09:30 AM [facility] Tobacco Use History This section includes a history of the smoking, or tobacco- related health factors, that were collected on or before the date of the Encounter. The data comes from the [facility] where the Encounter took place. Date/Time Smoking Status/Tobacco Use Comment [facility] Mar 22, 2021 07:45 AM [place] [facility] Oct 02, 2019 10:02 AM VA-TOBACCO NEVER USED [place] [facility] May 21, 2018 09:05 AM VA-TOBACCO NEVER USED [place] [facility] December 25, 2017 06:14 PM INPT NO TOBACCO USE IN LAST 30 DAYS [facility] Oct 01, 2017 07:34 AM LIFETIME NON-TOBACCO USER [facility] Sep 28, 2016 08:44 AM LIFETIME NON-TOBACCO USER [facility] Oct 14, 2015 07:52 AM LIFETIME NON-TOBACCO USER [facility] Oct 11, 2014 07:59 AM LIFETIME NON-TOBACCO USER [facility] January 15, 2007 07:55 AM LIFETIME NON-TOBACCO USER [facility] Advance Directives: All historical and [...] Apr 18, 2018 ADVANCE DIRECTIVE LARISSA SIGALA [facility] Apr 18, 2018 ADVANCE DIRECTIVE DISCUSSION LARISSA SIGALA [facility] December 23, 2017 CLINICAL WARNING [facility] May 11, 2003 ADVANCE DIRECTIVE BERT CASILLAS [facility] Radiology Reports: +/- 30 days of the [...] The data comes from all [place] treatment facilities. Date/Time Radiology Report Provider Source May 11, 2022 09:46 CHEST 1 VIEW: SONJA OVALLES [facility] LUISANA EDDY [id number] -1935 M Exm Date: MAY 11, 2022@09:46 Req Phys: MALINICODIE Lyon Pat Loc: OP Unknown /05-13-2022@05:05 Img Loc: MAIN X-RAY Service: PRIMARY CARE - MED OFFICE (Case [id number] COMPLETE) CHEST 1 VIEW (RAD Detailed) CPT:80197 Proc Modifiers : PORTABLE EXAM Reason for Study: resp distress Clinical History: Dafter IS NOT under investigation for COVID-19 or is COVID-19 negative Respiratory distress Responsible provider name and phone number to notify for critical findings if other than u ser placing the order and pager listed below: User placing orde rs pager: [phone] cell LAST CREATININE 1.6 H (05/11/22) Report Status: Verified Date Reported: MAY 11, 2022 Date Verified: MAY 11, 2022 Warehouse Order Puller E-Sig:/ES/SONJA OVALLES MD Report: CHEST 1 VIEW [...] Primary Interpreting Staff: SONJA OVALLES MD, RADIOLOGIST (Warehouse Order Puller) /[facility] May 10, 2022 03:49 CT HEAD (P): RADIOLOGY,OUTSIDE [facility] PM LUISANA EDDY [id number] -1935 M SERVICE Exm Date: MAY 10, 2022@15:49 Req Phys: CODIE LEON Loc: OP Unknown /05-13-2022@05:05 Img Loc: CT IMAGING Service: PRIMARY CARE - MED OFFICE (Case [id number] COMPLETE) CT HEAD/BRAIN W/O CONTRAST (CT Detailed) CPT:26389 Reason for Study: CHANGE IN MENTAL STATUS Clinical History: CHANGE IN MENTAL STATUS. ORDER ADMINISTRATIVELY ENTERED FOLLOWING SYSTEM OUTAGE. Report Status: Verified Date Reported: MAY 10, 2022 Date Verified: MAY 10, 2022 Warehouse Order Puller E-Sig: Report: CT HEAD/BRAIN W/O CONTRAST [PRINTSET] HISTORY: Change in mental status. COMPARISON: CT from 05/07/2022. TECHNIQUE: Contiguous axial CT images from the level of the skull base through the skull apex, with coronal and s agittal reformats, performed at the local [place] facility. 321 images were received by the [place] National Teleradiology Program (NTP) for interpretation. RADIATION [...] study. READING PHYSICIAN: Akash Mccoy M.D. -[phone] 05/10/2022 17:35 PDT [facility] National Teleradiology Program [phone] (For Medical Practitioner Use Only ) Attention Patients / Veterans: If you have ques tions or concerns about these test results, please contact your o rdering provider or primary care team. Primary Interpreting Staff: RADIOLOGY,OUTSIDE SERVICE, Staff Physician / May 08, 2022 07:45 CT T-SPINE (P): RADIOLOGY,OUTSIDE [facility] PM LUISANA EDDY [id number] -1935 M SERVICE Exm Date: MAY 08, 2022@19:45 Req Phys: CODIE LEON Loc: OP Unknown /05-13-2022@05:05 Img Loc: CT IMAGING Service: PRIMARY CARE - MED OFFICE (Case [id number] COMPLETE) CT SPINE THORACIC W/O CONTR AST (CT Detailed) CPT:06478 Reason for Study: mrsa bacteremia, spinal surge ry - r/o abscess or discitis Clinical History: IS NOT under investigation for COVID-19 or is COVID-19 negative Defer to radiologist for final CT protocol. Responsible provider name and phone number to n otify for critical findings if other than user placing the order a nd pager listed below: User placing orders pager: [phone] LAST 3: Collection DT Specimen Test Name [...] GFR (eGF 44 L Ref: >=60 Allergies: ([facility] only) SIMVASTATIN (Feb 29, 2004) CEPHALEXIN (Mar 01, 2004) Report Status: Verified Date Reported: MAY 08, 2022 Date Verified: MAY 08, 2022 Warehouse Order Puller E-Sig: Report: CT SPINE THORACIC W/O CONTRAST [PRINTSET] HISTORY:MRSA bacteremia NUMBER OF IMAGES:[id number] COMPARISON: Correlation with images from recent CT abdomen and pelvis May 06, 2022 TECHNIQUE: A non contrast CT of the thoracic sp ine [facility] for interpretation. Axial, coronal and sagittal [...] thoracic level. READING PHYSICIAN: Luisana Webb MD -[id number] 05/08/2022 19:20 PDT [facility] National Teleradiology Program [phone] (For Medical Practitioner Use Only ) Attention Patients / Veterans: If you have ques tions or concerns about these test results, please contact your [facility] provider or primary care team. Primary Interpreting Staff: RADIOLOGY,OUTSIDE SERVICE, Staff Physician / May 08, 2022 04:48 CHEST 1 VIEW: RADIOLOGY,OUTSIDE [facility] PM NUNULUISANA [id number] -1935 M SERVICE Exm Date: MAY 08, 2022@16:48 Req Phys: CODIE LEON Loc: OP Unknown /05-13-2022@05:05 Img Loc: MAIN X-RAY Service: PRIMARY CARE - MED OFFICE (Case [id number] COMPLETE) CHEST 1 VIEW (RAD Detailed) CPT:71119 Proc Modifiers : PORTABLE EXAM Reason for Study: dyspnea Clinical History: Dafter IS NOT under investigation for COVID-19 or is COVID-19 negative acute worsening of dyspnea Responsible provider name and phone number to notify for critical findings if other than user placing the order and pager listed below: User placing orders pager: [phone] malini cell [phone] LAST CREATININE 1.1 (05/08/22) Report Status: Verified Date Reported: MAY 08, 2022 Date Verified: MAY 08, 2022 Warehouse Order Puller E-Sig: Report: CHEST 1 VIEW HISTORY: dyspnea COMPARISON: 05/06/2022 TECHNIQUE: Frontal view(s) of the chest, submit nola to the [place] National Teleradiology Program (NTP) for interp retation. FINDINGS: Reduced lung volumes. Progressive cardiomegaly, and vascular congestion as well as diffuse interstitial prom inence with probable small effusions. Impression: Expiratory exam with findings of CHF and mild e santa READING PHYSICIAN: Nghia Menjivar M.D. -[id number] 10 05/08/2022 18:57 EDT [facility] National Teleradiology Program [phone] (For Medical Practitioner Use Only ) Attention Patients / Veterans: If you have ques tions or concerns about these test results, please [facility] or primary care team. Primary Interpreting Staff: RADIOLOGY,OUTSIDE SERVICE, Staff Physician / May 07, 2022 10:29 CT HEAD (P): SHANI POLANCO [facility] LUISANA EDDY [id number] -1935 M Exm Date: MAY 07, 2022@10:29 Req Phys: BETO AYALA Loc: OP Unknown/0 05-13-2022@05:05 Img Loc: CT IMAGING Service: PRIMARY CARE - MED OFFICE (Case [id number] COMPLETE) CT HEAD/BRAIN W/O CONTRAST ( CT Detailed) CPT:21386 Reason for Study: seizure noted at [facility] Clinical History: Dafter IS NOT under investigation for COVID-19 or is COVID-19 negative Defer to radiologist for final CT protocol. Responsible provider name and phone number to n otify for critical findings if other than user placing the order a nd pager listed below: User placing orders pager: [phone] LAST 3: Collection DT Specimen Test Name [...] GFR (eGF 44 L Ref: >=60 Allergies: ([facility] only) SIMVASTATIN (Feb 29, 2004) CEPHALEXIN (Mar 01, 2004) Report Status: Verified Date Reported: MAY 07, 2022 Date Verified: MAY 07, 2022 Warehouse Order Puller E-Sig:/ES/SHANI POLANCO MD Report: EXAM: CT HEAD/BRAIN [...] lis nola below: User placing orders pager: [phone] LAST 3: Collecti on DT Specimen Test [...] Primary Interpreting Staff: SHANI POLANCO MD, RADIOLOGIST (Warehouse Order Puller) /Javed May 06, 2022 11:40 CHEST 1 VIEW: RADIOLOGY,OUTSIDE [facility] AM LUISANA EDDY [id number] -1935 M SERVICE Exm Date: MAY 06, 2022@11:40 Req Phys: MODESTA VILLANUEVA Loc: [facility] EMERGENCY DEPT WALK-IN (Re Img Loc: MAIN X-RAY Service: Unknown (Case [id number] COMPLETE) CHEST 1 VIEW (RAD Detailed) C PT:12781 Proc Modifiers : PORTABLE EXAM Reason for [...] pager listed below: User placing orders pager: [phone] LAST CREATININE 1.2 (04/30/22) Report Status: Verified Date Reported: MAY 06, 2022 Date Verified: MAY 06, 2022 Warehouse Order Puller E-Sig: Report: Technique: Frontal chest. No comparison Impression: Cardiac silhouette is mildly enlarged. There is mild pulmonary venous congestion. No definite pleural effusion . No pneumothorax seen. READING PHYSICIAN: Vern Donnelly M.D. -[phone] 05/06/2022 13:26 EDT [facility] National Teleradiology Program [phone] (For Medical Practitioner Use Only ) Attention Patients / Veterans: If you have ques tions or concerns about these test results, please contact your [facility] or primary care team. Primary Interpreting Staff: RADIOLOGY,OUTSIDE SERVICE, Staff Physician / May 06, 2022 10:36 CT (AP) ABDOMEN/PELVIS (P): RADIOLOGY,OUTSIDE [facility] LUISANA EDDY [id number] -1935 M SERVICE Exm Date: MAY 06, 2022@10:36 Req Phys: MODESTA VILLANUEVA Loc: [facility] EMERGENCY DEPT WALK-IN (Re Img Loc: CT IMAGING Service: Unknown (Case 66 COMPLETE) CT (AP) ABDOMEN/PELVIS W CONT RAST(CT Detailed) CPT:75209 Reason for Study: fever, back pain Clinical History: fever, back pain, ecchymosis left low back consideration for intra-abdominal process, aort ic changes, LS spine trauma, kidney inflammation, GI or obs truction Dafter IS under investigation (PUI) for COVID- 19 or is COVID-19+ Defer to radiologist for final CT protocol. Please enter pertinent clinical history on the next page. Responsible provider name and phone number to n otify for critical findings if other than user placing the order a nd pager listed below: User placing orders pager: [phone] LAST 3: Collection DT Specimen Test Name [...] ESTIMATED GFR(eGF 44 L Ref: >=60 Allergies: ([facility]) SIMVASTATIN (Feb 29, 2004) CEPHALEXIN (Mar 01, 2004) To see allergies from all [place] locations click Re ports tab>Remote Data>All Available Sites>Clinical Reports>Aller gies. Report Status: Verified Date Reported: MAY 06, 2022 Date Verified: MAY 06, 2022 Warehouse Order Puller E-Sig: Report: Exam: CT (AP) ABDOMEN/PELVIS W CONTRAST [PRINTS ET] Clinical History: fever, back pain Number of images: 918 Comparison: No priors available Technique: The study was protocoled and supervi sed at the local [place] facility. CT of the abdomen and pelvis was performed afte r the uneventful administration of iodinated contrast. Images we re received by the [facility] National T[facility] (NTP) for interpretation. Total [...] findings, above. READING PHYSICIAN: Eduin Donaldson M.D. -[phone] 05/06/2022 12:48 [facility] National Teleradiology Program [phone] (For Medical Practitioner Use Only ) Attention Patients / Veterans: If you have ques tions or concerns about these test results, please contact your [facility] [place] or primary care team. Primary Interpreting Staff: RADIOLOGY,OUTSIDE SERVICE, Staff Physician / May 06, 2022 10:35 CT HEAD/BRAIN W/O CONTRAST: RADIOLOGY,OUTSIDE [facility] AM NUNU,LUISANA H [id number] -1935 M SERVICE Exm Date: MAY 06, 2022@10:35 Req Phys: MODESTA VILLANUEVA Loc: [facility] EMERGENCY DEPT WALK-IN (Re Img Loc: CT IMAGING Service: Unknown (Case 64 COMPLETE) CT HEAD/BRAIN W/O CONTRAST (C T Detailed) CPT:41478 Reason for Study: falls, blood thinner, AMS, se izure Clinical History: falls, blood thinner, AMS, seizure Dafter IS under investigation (PUI) for COVID- 19 or is COVID-19+ Defer to radiologist for final CT protocol. Responsible provider name and phone number to n otify for critical findings if other than user placing the order a nd pager listed below: User placing orders pager: [phone] LAST 3: Collection DT Specimen Test Name [...] ESTIMATED GFR(eGF 44 L Ref: >=60 Allergies: ([facility] only) SIMVASTATIN (Feb 29, 2004) CEPHALEXIN (Mar 01, 2004) To see allergies from all [place] locations click Re ports tab>Remote Data>All Available Sites>Clinical Reports>Lashon king. Report Status: Verified Date Reported: MAY 06, 2022 Date Verified: MAY 06, 2022 Warehouse Order Puller E-Sig: Report: CT HEAD/BRAIN W/O CONTRAST Clinical [...] T findings. READING PHYSICIAN: Eduin Donaldson M.D. -[phone] 05/06/2022 12:30 [facility] National Teleradiology Program [phone] (For Medical Practitioner Use Only ) Attention Patients / Veterans: If you have ques tions or concerns about these test results, please contact your o rdering provider or primary care team. Primary Interpreting Staff: RADIOLOGY,OUTSIDE SERVICE, Staff Physician / May 06, 2022 10:35 CT CERVICAL SPINE W/O CONTRAST: RADIOLOGY,OUT SIDE [facility] LUISANA EDDY [id number] -1935 M SERVICE Exm Date: MAY 06, 2022@10:35 Req Phys: MODESTA VILLANUEVA Loc: [facility] EMERGENCY DEPT WALK-IN (Re Img Loc: CT IMAGING Service: Unknown (Case 65 COMPLETE) CT CERVICAL SPINE W/O CONTRAS T (CT Detailed) CPT:48200 Reason for Study: falls, blood thinner, AMS, se izure Clinical History: falls, blood thinner, AMS, seizure Dafter IS under investigation (PUI) for COVID- 19 or is COVID-19+ Defer to radiologist for final CT protocol. Responsible provider name and phone number to n otify for critical findings if other than user placing the order a nd pager listed below: User placing orders pager: [phone] LAST 3: Collection DT Specimen Test Name [...] ESTIMATED GFR(eGF 44 L Ref: >=60 Allergies: ([facility] only) SIMVASTATIN (Feb 29, 2004) CEPHALEXIN (Mar 01, 2004) To see allergies from all [facility] locations click Re ports tab>Remote Data>All Available Sites>Clinical Reports>Aller gies. Report Status: Verified Date Reported: MAY 06, 2022 Date Verified: MAY 06, 2022 Warehouse Order Puller E-Sig: Report: CT CERVICAL SPINE W/O CONTRAST HISTORY:falls, blood thinner, AMS, seizure NUMBER OF IMAGES:770 COMPARISON: None available. TECHNIQUE: A non contrast CT of the cervical sp ine was performed at the local [place]. Images were subsequently sent to [facility] for interpretation. Axial, coronal and sagittal [...] findings, above. READING PHYSICIAN: Eduin Donaldson M.D. -[phone] 05/06/2022 12:33 [facility] National Teleradiology Program [phone] (For Medical Practitioner Use Only ) Attention Patients / Veterans: If you have ques tions or concerns about these test results, please contact your [facility] [place] or primary care team. Primary Interpreting [...] The data comes from all [place] treatment facilities. Date/Time Pathology Report Provider Source May 09, 2022 05:30 AM LR MICROBIOLOGY REPORT: [place] [facility] Reporting Lab: [facility] [CLIA# [id number]] [place] [address] Accession [UID]: [id number] [[id number]] Receiv ed: May 09, 2022@01:35 Collection sample: BLOOD Collection date: Apr 05:30 Provider: CODIE LEON Comment on specimen: LEFT ARM, RECEIVED 2 BLOOD CULTURE BOTTLES Test(s) ordered: CULTURE & SUSCEPTIBILITY...... 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 R TRIMETH/SULFA................. S TETRACYCLINE.................. S CLINDAMYCIN................... S RIFAMPIN...................... S VANCOMYCIN.................... S Bacteriology Remark(s): VANCOMYCIN SHAMIKA: <=0.5 ug/mL THIS REPORT IS FINAL =--=--=--=--=--=--=--=--=--=--=--=--=--= --=--=--=--=--=--=--=--=--=--=--=--=-- Performing Laboratory: Bacteriology Report Performed By: [facility] [CLIA# [id number]] [place] [address] May 08, 2022 03:23 PM LR MICROBIOLOGY REPORT: [facility] Reporting Lab: [facility] [CLIA# [id number]] [place] [address] Accession [UID]: [id number] [[id number]] Receiv ed: May 08, 2022@15:41 Collection sample: BLOOD Collection date: Apr 15:23 Provider: CODIE LEON Comment on specimen: LEFT ARM, RECEIVED 2 BLOOD CULTURE BOTTLES Test(s) ordered: CULTURE & SUSCEPTIBILITY...... completed: May 10, 2022 * BACTERIOLOGY FINAL REPORT => May 10, 2022 16:3 1 TECH CODE: [id number] CULTURE RESULTS: GROWTH SAME THAT OF ANOTHER CULTURE Comment: FOR SUSCEPTIBILITY REPORT SEE PREVIOUS POSITIVE SAME MB [id number] ( 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 from Anaerobic bottle ) ( Recovered from Aerobic bottle ) Bacteriology Remark(s): THIS REPORT IS FINAL =--=--=--=--=--=--=--=--=--=--=--=--=--= --=--=--=--=--=--=--=--=--=--=--=--=-- Performing Laboratory: Bacteriology Report Performed By: [facility] [CLIA# [id number]] [place] [address] May 08, 2022 03:21 PM LR MICROBIOLOGY REPORT: [facility] Reporting Lab: [facility] [CLIA# [id number]] [place] [address] Accession [UID]: [id number] [[id number]] Receiv ed: May 08, 2022@15:40 Collection sample: BLOOD Collection date: Apr 15:21 Provider: CODIE LEON Comment on specimen: RT ARM, RECEIVED 2 BLOOD CU LTURE BOTTLES Test(s) ordered: CULTURE & SUSCEPTIBILITY...... completed: May 10, 2022 * BACTERIOLOGY FINAL REPORT => May 10, 2022 16:3 1 TECH CODE: [id number] CULTURE RESULTS: GROWTH SAME THAT OF ANOTHER CULTURE Comment: FOR SUSCEPTIBILITY REPORT SEE PREVIOUS POSITIVE SAME MB 22 [id number] ( 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 from Anaerobic bottle ) ( Recovered from Aerobic bottle ) Bacteriology Remark(s): THIS REPORT IS FINAL =--=--=--=--=--=--=--=--=--=--=--=--=--= --=--=--=--=--=--=--=--=--=--=--=--=-- Performing Laboratory: Bacteriology Report Performed By: [facility] [CLIA# [id number]] [place] [address] May 07, 2022 05:30 AM LR MICROBIOLOGY REPORT: [facility] Reporting Lab: [facility] [CLIA# [id number]] [place] [address] Accession [UID]: [id number] [[id number]] Receiv ed: May 07, 2022@01:35 Collection sample: [...] REPORT SEE PREVIOUS POSITIVE SAME MB 22 21240 ( 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 from Aerobic bottle ) ( Recovered from Anaerobic bottle ) Bacteriology Remark(s): THIS REPORT IS FINAL =--=--=--=--=--=--=--=--=--=--=--=--=--= --=--=--=--=--=--=--=--=--=--=--=--=-- Performing Laboratory: Bacteriology Report Performed By: [facility] [CLIA# [id number]] [place] [address] May 06, 2022 10:51 AM LR MICROBIOLOGY REPORT: [facility] Reporting Lab: [facility] [CLIA# [id number]] [place] [address] Accession [UID]: [id number] [[id number]] Receiv ed: May 06, 2022@11:32 Collection sample: [...] --=--=--=--=--=--=--=--=--=--=--=--=-- Performing Laboratory: Bacteriology Report Performed By: [facility] [CLIA# [id number]] [place] [address] May 06, 2022 10:34 AM LR MICROBIOLOGY REPORT: [facility] Reporting Lab: [facility] [CLIA# [id number]] [place] [address] Accession [UID]: [id number] [[id number]] Receiv ed: May 06, 2022@10:51 Collection sample: BLOOD Collection date: Apr 10:34 Provider: MODESTA VILLANUEVA Comment on specimen: RECEIVED 2 BLOOD CULTURE MILAN TTLES RAC Test(s) ordered: CULTURE & SUSCEPTIBILITY...... completed: May 07, 2022 * BACTERIOLOGY FINAL REPORT => May 08, 2022 08:3 0 TECH CODE: [id number] CULTURE RESULTS: STAPHYLOCOCCUS AUREUS METHICILL IN RESISTANT [...] --=--=--=--=--=--=--=--=--=--=--=--=-- Performing Laboratory: Bacteriology Report Performed By: [facility] [CLIA# [id number]] [place] [address] May 06, 2022 10:00 AM LR MICROBIOLOGY REPORT: [facility] Reporting Lab: [facility] [CLIA# [id number]] [place] [address] Accession [UID]: [id number] [[id number]] Receiv ed: May 06, 2022@10:41 Collection sample: [...] REPORT SEE PREVIOUS POSITIVE SAME MB 22 84443 ( 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 from Anaerobic bottle ) ( Recovered from Aerobic bottle ) Bacteriology Remark(s): THIS REPORT IS FINAL =--=--=--=--=--=--=--=--=--=--=--=--=--= --=--=--=--=--=--=--=--=--=--=--=--=-- Performing Laboratory: Bacteriology Report Performed By: [facility] [CLIA# [id number]] [place] [address] Encounter Notes: All associated encounter notes This section contains the clinical notes associated to the Encounter. Date/Time Encounter Note(s) Provider Source Apr 30, 2022 11:36 AM ADVANCE DIRECTIVE: BERT VILLALPANDO [facility] LOCAL TITLE: AD NOTIFICATION AND SCREENING STANDARD TITLE: ADVANCE DIRECTIVE DATE OF NOTE: APR 30, 2022@11:36 ENTRY DATE: APR 30, 2022@11:36:12 AUTHOR: BERT VILLALPANDO EXP COSIGNER: URGENCY: STATUS: COMPLETED ADVANCE DIRECTIVE NOTIFICATION: Patient was given written notification of the [facility] [place]: 1. Accept or refuse any medical treatment. 2. Complete a durable power of deputy attorney general for [facility] care. 3. Complete a living will. ADVANCE DIRECTIVE SCREENING NOT PERFORMED: It was not possible to perform the advance dire ctive screening because: pt did not want ad information /es/ BERT VILLALPANDO LEAD CURING SUPERVISOR Signed: 04/30/2022 11:36 Apr 30, 2022 08:37 AM INTERNAL MEDICINE NOTE: BILL GUNTER [facility] LOCAL TITLE: MEDICINE CLINIC NOTE STANDARD TITLE: [...] after being on these meds -currently in [place] and sertaline 50 mg da partha added to regimen by there. ---> cc neuro as FYI to medication change at [facility] Elevated PSA with BPH Urinary outlet obstruction with bacteremia requi ring hospitalization January 2021 TURP February 2021 Readmission for prostatitis with sepsis and UTI December 2021 -follows with urology Dr Moreno at [facility] -Continue finasteride 5 mg daily -checking [...] podiatry -Yearly eye exam up-to-date by [facility] mology Insomnia -Melatonin 3 mg at night Yeast in skin folds -Nystatin prn Chronic kidney disease stage 3 -Continue vitamin D Diastolic heart failure HTN Dyslipidemia Chronic atrial fibrillation -Managed by cardiology and in [place], Dr. Vlad is. -Current regimen Metoprolol succinate 100 mg daily Rivaroxaban 20 mg daily Atorvastatin 10 mg daily Lasix 20 mg daily Mild anemia, asymptomatic B12 deficiency -on B12 injections through neuro corns and calluses -Continue follow-up with podiatry in the [facility] Dr. Sweeney -Continue intermittent prosthetics referrals for [...] be en reportedly doing quite well at [place] recently. then developed a total body rash and was put on PO benadryl and prednisone. unclear start date of those meds over the weekend he developed increased shaking and more confusion fell this AM at 0200 at [facility]. no injuries gson v concerned about poss UTI Social/family history: as of January 2022 he is back in his home, his gran dson has moved in with him. ----> Apr 2022 in a fdc He has stopped driving. Lifelong non-smoker Nondrinker No illicit drug use HPI/ROS: As above otherwise limited by patient's cognition Active problems - Computerized Problem List is t he source for the followin. Type 2 diabetes mellitus (SNOMED CT [id number] ) 2. OBESITY, UNSP 3. Psoriasis * 4. Social and personal history finding - Lives alone. Has brother in [place]. Friends felipe breaux. 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 5. History of adenomatous polyp of colon - Last c-scope 05/09/15 at [place]. Two small polyp s. - 5 year follow up if appropriate. 6. Elevated PSA - follows with urology at [place] - with BPH on terazosin - February 2021: TURP at [place] 7. Chronic kidney disease stage 3 8. Diastolic heart failure - w/ HTN and dyslipidemia 9. Chronic atrial fibrillation - metoprolol and rivaroxaban 10. history of hospitalization - January 2021: Bacteremia secondary to urinary ou tflow obstruction from BPH - underwent a TURP at [facility] February 2021 11. corns and calluses - followed by podiatry in the community in [facility] 12. Gout - on allopurinol Allergies: [...] TABLET BY MOUTH EVERY DAY 9) NYSTATIN 307440 UNT/GM CREAM APPLY THIN LAYER ACTIVE TOPICALLY [...] 04/30/2022 ADDENDUM STATUS: COMPLETED Please call patient's fdc to obtain UA results from today. Also please let family know that basic blood wor k was fairly unremarkable /ronni/ Bill Gunter MD Physician Signed: 04/30/2022 16:32 Receipt Acknowledged By: 05/01/2022 14:11 /es/ ZARA DAVID RN REGISTERED NURSE 05/01/2022 ADDENDUM STATUS: COMPLETED Spoke with patient's son. So n said that the urinalysis done at the fdc tested negative. Son also sa id that patient was having increasing confusion and shaking and [facility] and is going to be admitted. Including Dr. Gunter on this entry /es/ ZARA DAVID RN REGISTERED NURSE Signed: 05/01/2022 14:16 Apr 30, 2022 08:07 AM INTERNAL MEDICINE OUTPATIENT NOTE: Antony FLOWERS [facility] LOCAL TITLE: [...] discuss with provider Suicide Screen: C-SSRS Screening [place] Suicide Severity Rating Scale (C-SSRS) screener 1. [...]
--- OUTSIDE RECORDS SUMMARY | 2022-05-15 09:20 | XMS_ITS | Encounter Summary ---
:1935 Author Organization [facility] rs Address [address] [place] [address] Support Name Relationship Address Phone NATHANIEL LORENZO Unavailable [id number] [place] [address] NATHANIEL LORENZO Unavailable [address] [place] [address] ARACELI MARSHALL Unavailable [phone] [place] [address] MARILIA MARSHALLA Unavailable [phone] [place] [address] Insurance Providers: All historical and current Section [...] [place] Aug 19, [id number] [facility] (WNR) ADVANTAGE (WNR) 2017 8 [id number] [phone] [facility] 1 [place] Aug 19, [id number] [facility] (WNR) ADVANTAGE (WNR) 2016 8 [id number] [phone] [facility] 1 Selected Encounter This section [...] Encounter Template Text not used by [place] Assessments - Encounter Diagnoses This section includes the primary and secondary diagnoses documented for the Encounter. Date/Time Primary/Secondary Diagnosis Name Provider Source Diagnosis Apr 27, 2022 PRIMARY Oth problems DEBBIE KIRK [facility] 12:22 PM related to A [facility] psychosocial circumstances Plan of Treatment: Future Appointments (+ 6 months) and Future Tests (+/- 45 days) The Plan of Treatment section includes future care activities for the patient from all [place] [facility] This section includes future appointments and future orders which are active, pending orscheduled.Future Appointments This section includes appointments that were scheduled to occur 6 months from the date of the Encounter, up to a maximum of 20 appointments. The data comes from all [facility]. Appointment Date/Time Appointment Type Appointment Facili ty Name Apr 30, 2022 08:00 AM AMBULATORY - MEDICINE [facility] Apr 30, 2022 09:15 AM AMBULATORY - NONE [facility] May 01, 2022 11:06 AM AMBULATORY [facility] May 06, 2022 09:40 AM AMBULATORY - MEDICINE [facility] May 11, 2022 06:15 PM AMBULATORY - NONE [facility] Jul 23, 2022 08:00 AM AMBULATORY - NEUROLOGY [facility] Active, Pending, and Scheduled Orders This section includes a listing of several types of active, pending, and scheduled orders, including clinic medications orders, diagnostic test orders, procedure orders and consult orders; where the start date of the order is 45 days before the date of the Encounter or 45 days after the date of the Encounter. The data comes from all [facility]. Test Date/Time Test Type Test Details Facility Name Apr 30, 2022 08:21 Laboratory - Chemistry URINALYSIS URINE WC ON CE [facility] AM Order Apr 30, 2022 08:21 Laboratory - CULTURE & SUSCEPTIBILITY [facility] AM Microbiology Order URINE May 06, 2022 12:00 Laboratory - Blood ABO/RH - LAB BLOOD [facility] AM Bank Order May 06, 2022 10:11 Laboratory - Blood TYPE & SCREEN - LAB [facility] AM Bank Order BLOOD May 06, 2022 10:27 Pharmacy - [facility] AM Medication Order May 06, 2022 10:28 Pharmacy - [facility] AM Infusion Order May 06, 2022 10:34 Pharmacy [facility] AM Infusion Order May 06, 2022 10:41 [facility] AM Infusion Order May 06, 2022 12:15 [facility] PM Medication Order May 06, 2022 01:31 [facility] PM Medication Order May 06, 2022 04:49 [facility] PM Medication Order May 07, 2022 01:00 Laboratory - CULTURE & SUSCEPTIBILITY [facility] PM Microbiology Order BLOOD WC ONCE May 11, 2022 09:07 Laboratory - CULT[facility] & [facility]CEPTIBILITY [facility] AM Microbiology Order BLOOD WC May 11, 2022 09:07 Laboratory - CULTURE & SUSCEPTIBILITY [facility] AM Microbiology Order BLOOD WC May 11, 2022 09:38 Laboratory - Chemistry EOSINOPHIL SMEAR,URINE [facility] AM Order URINE WC ONCE May 11, 2022 09:38 Laboratory - Chemistry URINALYSIS URINE WC ON CE [facility] AM Order May 11, 2022 09:38 Laboratory - Chemistry FENA URINE WC ONCE [facility] AM Order Lab Results: +/- 30 [...] Reference Range Comment May 11, 2022 11:13 [facility] FINGERSTICK GLUCOSE Speci men Type: BLOOD AM Comment: Mark casillas Nurse Notified Ordering Provid er: CODIE LEON Report Released Date/Time: May 11, 2022 11:53 AM Reporting Lab: [facility] [address] [facility] [address] Performing Lab: [facility] [address] [facility] [address] FINGERSTICK GLUCOSE 367 H 70-100 May 11, 2022 07:05 [facility] LIVER FUNCTION TESTS Spec imen Type: PLASMA AM No comment enter ed. Ordering Provid er: CODIE LEON Report Released Date/Time: May 11, 2022 09:08 AM Reporting Lab: [facility] [address] [facility] [address] Performing Lab: [facility] [address] [facility] [address] BILIRUBIN, TOTAL 1.6 H 0.2-1.2 ALKALINE PHOSPHATASE 102 40-150 ALT/SGPT 42 <55 AST/SGOT 30 <34 GAMMA GTP 52 <64 DIR. BILIRUBIN 1.2 H <0.5 May 11, 2022 07:05 AM [facility] CBC Specim en Type: BLOOD No comment enter ed. Ordering Provid er: OG DIAL Report Released Date/Time: May 11, 2022 04:46 AM Reporting Lab: [facility] [address] Performing Lab: [facility] [address] WBC 15.93 H 4.0-11.0 RBC 3.60 L 4.6-6.2 HGB 11.2 L 13.5-17.9 HCT 35.3 L 41-54 MCV 98.1 80-100 MCH 31.1 27-33 MCHC 31.7 L 32.0-37.5 PLT 231 150-400 MPV 11.2 H 7.4-10.4 RDW 15.2 H 11.5-14.5 May 11, 2022 07:05 AM [facility] CK,TOTAL Specim en Type: PLASMA No comment enter ed. Ordering Provid er: CODIE LEON Report Released Date/Time: May 11, 2022 09:08 AM Reporting Lab: [facility] [address] Performing Lab: [facility] [address] CK,TOTAL 16 L 39-208 May 11, 2022 07:05 [facility] BASIC METABOLIC Specimen Type: PLASMA AM PANEL+MG No comment enter ed. Ordering Provid er: OG DIAL Report Released Date/Time: May 11, 2022 04:46 AM Reporting Lab: [facility] [address] Performing Lab: [facility] [address] CREATININE 1.6 H 0.7-1.2 UREA NITROGEN 28 H 8-26 GLUCOSE 396 H 70-100 SODIUM 150 H 136-145 POTASSIUM 3.7 3.5-5.1 CHLORIDE 120 H 98-107 CO2 23 22-29 CALCIUM 8.4 8.4-10.2 MAGNESIUM 2.1 1.6-2.6 ANION GAP 7 5-15 CREAT EGFR(CKD-EPI) 42 L >60 May 11, 2022 07:05 AM [facility] BNP Specim en Type: PLASMA No comment enter ed. Ordering Provid er: CODIE LEON Report Released Date/Time: May 11, 2022 09:15 AM Reporting Lab: [facility] [address] [facility] [address] Performing Lab: [facility] [address] [facility] [address] BNP 59 <99 May 11, 2022 06:14 [facility] FINGERSTICK GLUCOSE Speci men Type: BLOOD AM Comment: Mark casillas Nurse Notified Ordering Provid er: CODIE LEON Report Released Date/Time: May 11, 2022 06:42 AM Reporting Lab: [facility] [address] [facility] [address] Performing Lab: [facility] [address] [facility] [address] FINGERSTICK GLUCOSE 345 H 70-100 May 11, 2022 02:24 [facility] FINGERSTICK GLUCOSE Speci men Type: BLOOD AM Comment: Mark casillas Ordering Provid er: CODIE LEON Report Released Date/Time: May 11, 2022 02:44 AM Reporting Lab: [facility] [address] [facility] [address] Performing Lab: [facility] [address] [facility] [address] FINGERSTICK GLUCOSE 375 H 70-100 May 10, 2022 08:38 [facility] FINGERSTICK GLUCOSE Speci men Type: BLOOD PM Comment: Mark casillas Ordering Provid er: CODIE LEON Report Released Date/Time: May 11, 2022 12:31 AM Reporting Lab: [facility] [address] [facility] [address] Performing Lab: [facility] [address] [facility] [address] FINGERSTICK GLUCOSE 346 H 70-100 May 10, 2022 05:05 [facility] FINGERSTICK GLUCOSE Speci men Type: BLOOD PM Comment: Mark casillas Nurse Notified Ordering Provid er: CODIE LEON Report Released Date/Time: May 10, 2022 11:50 PM Reporting Lab: [facility] [address] [facility] [address] Performing Lab: [facility] [address] [facility] [address] FINGERSTICK GLUCOSE 245 H 70-100 May 10, 2022 02:00 [facility] VANCOMYCIN (TROUGH) Speci men Type: PLASMA PM No comment enter ed. Ordering Provid er: CODIE LEON Report Released Date/Time: May 11, 2022 01:34 AM Reporting Lab: [facility] [address] Performing Lab: [facility] [address] VANCOMYCIN (TROUGH) 31.8 H 10.0-15.0 May 10, 2022 [facility] BASIC METABOLIC Specimen Typ e: PLASMA 02:00 PM PANEL+MG No comment enter ed. Ordering Provid er: CODIE LEON Report Released Date/Time: May 11, 2022 01:34 AM Reporting Lab: [facility] [address] Performing Lab: [facility] [address] CREATININE 1.1 .7-1.2 UREA NITROGEN 22 8-26 GLUCOSE 279 H 70-100 SODIUM 150 H 136-145 POTASSIUM 3.2 L 3.5-5.1 CHLORIDE 116 H 98-107 CO2 23 22-29 CALCIUM 8.5 8.4-10.2 MAGNESIUM 2.0 1.6-2.6 ANION GAP 11 5-15 CREAT EGFR(CKD-EPI) 65 >60 May 10, 2022 01:20 PM [facility] CBC & DIFF Specim en Type: BLOOD Comment: Automa nola Differential Performed Ordering Provid er: MD ESTEBAN Report Released Date/Time: May 10, 2022 08:52 PM Reporting Lab: [facility] [address] [facility] [address] Performing Lab: [facility] [address] WBC 16.24 H 4.0-11.0 RBC 3.76 L [...] 0.28 H 0-0.1 May 10, 2022 11:07 [facility] FINGERSTICK GLUCOSE Speci men Type: BLOOD AM Comment: Mark casillas Nurse Notified Ordering Provid er: CODIE LEON Report Released Date/Time: May 11, 2022 12:31 AM Reporting Lab: [facility] [address] [facility] [address] Performing Lab: [facility] [address] [facility] [address] FINGERSTICK GLUCOSE 253 H 70-100 May 10, 2022 06:16 [facility] FINGERSTICK GLUCOSE Speci men Type: BLOOD AM Comment: Mark casillas Nurse Notified Ordering Provid er: CODIE LEON Report Released Date/Time: May 10, 2022 11:50 PM Reporting Lab: [facility] [address] [facility] [address] Performing Lab: [facility] [address] [facility] [address] FINGERSTICK GLUCOSE 271 H 70-100 May 09, 2022 09:07 [facility] FINGERSTICK GLUCOSE Speci men Type: BLOOD PM Comment: Mark casillas Ordering Provid er: CODIE LEON Report Released Date/Time: May 10, 2022 11:50 PM Reporting Lab: [facility] [address] [facility] [address] Performing Lab: [facility] [address] [facility] [address] FINGERSTICK GLUCOSE 209 H 70-100 May 09, 2022 05:33 [facility] FINGERSTICK GLUCOSE Speci men Type: BLOOD PM Comment: Mark casillas Nurse Notified Ordering Provid er: CODIE LEON Report Released Date/Time: May 09, 2022 05:53 PM Reporting Lab: [facility] [address] [facility] [address] Performing Lab: [facility] [address] [facility] [address] FINGERSTICK GLUCOSE 251 H 70-100 May 09, 2022 02:09 [facility] VANCOMYCIN (PEAK) Specime n Type: SERUM PM No comment enter ed. Ordering Provid er: AMARIS DE JESUS Report Released Date/Time: May 09, 2022 09:33 AM Reporting Lab: [facility] [address] [facility] [address] Performing Lab: [facility] [address] [facility] [address] VANCOMYCIN (PEAK) 24.2 20.0-40.0 May 09, 2022 11:19 [facility] FINGERSTICK GLUCOSE Speci men Type: BLOOD AM Comment: Mark casillas Nurse Notified Ordering Provid er: CODIE LEON Report Released Date/Time: May 09, 2022 11:38 AM Reporting Lab: [facility] [address] [facility] [address] Performing Lab: [facility] [address] [facility] [address] FINGERSTICK GLUCOSE 240 H 70-100 May 09, 2022 08:13 [facility] VANCOMYCIN (TROUGH) Speci men Type: SERUM AM No comment enter ed. Ordering Provid er: AMARIS DE JESUS Report Released Date/Time: May 08, 2022 11:14 AM Reporting Lab: [facility] [address] [facility] [address] Performing Lab: [facility] [address] [facility] [address] VANCOMYCIN (TROUGH) 16.1 H 10.0-15.0 May 09, 2022 05:33 AM [facility] CBC & DIFF Specim en Type: BLOOD Comment: Automa nola Differential Performed Ordering Provid er: CODIE LEON Report Released Date/Time: May 08, 2022 05:27 PM Reporting Lab: [facility] [address] [facility] [address] Performing Lab: [facility] [address] [facility] [address] WBC 14.92 H 4.0-11.0 RBC 3.41 L [...] GRAN 0.16 H 0-0.1 May 09, 2022 [facility] COMPREHENSIVE METABOLIC Spec imen Type: PLASMA 05:32 AM PANEL+MG No comment enter ed. Ordering Provid er: CODIE LEON Report Released Date/Time: May 08, 2022 05:27 PM Reporting Lab: [facility] [address] Performing Lab: [facility] [address] CREATININE 1.2 0.7-1.2 UREA NITROGEN 25 8-26 [...] 59 L >60 May 09, 2022 05:16 [facility] FINGERSTICK GLUCOSE Speci men Type: BLOOD AM Comment: Mark casillas Nurse Notified Ordering Provid er: CODIE LEON Report Released Date/Time: May 09, 2022 07:27 AM Reporting Lab: [facility] [address] Performing Lab: [facility] [address] FINGERSTICK GLUCOSE 295 H 70-100 May 08, 2022 09:32 PM [facility] EXTRA MINT TUBE Specim en Type: PLASMA No comment enter ed. Ordering Provid er: MD ESTEBAN Report Released Date/Time: May 08, 2022 09:32 PM Reporting Lab: [facility] [address] [facility] [address] Performing Lab: [facility] [address] [facility] [address] EXTRA MINT TUBE RECEIVED May 08, 2022 09:32 PM [facility] EXTRA PURPLE TUBE Spec imen Type: BLOOD No comment enter ed. Ordering Provid er: MD ESTEBAN Report Released Date/Time: May 08, 2022 09:32 PM Reporting Lab: [facility] [address] [facility] [address] Performing Lab: [facility] [address] [facility] [address] EXTRA PURPLE TUBE RECEIVED May 08, 2022 09:32 [facility] EXTRA GOLD GEL TUBE Speci men Type: SERUM PM No comment enter ed. Ordering Provid er: MD ESTEBAN Report Released Date/Time: May 08, 2022 09:32 PM Reporting Lab: [facility] [address] [facility] [address] Performing Lab: [facility] [address] [facility] [address] EXTRA GOLD GEL TUBE RECEIVED May 08, 2022 09:32 PM [facility] EXTRA BLUE TUBE Specim en Type: PLASMA No comment enter ed. Ordering Provid er: MD ESTEBAN Report Released Date/Time: May 08, 2022 09:32 PM Reporting Lab: [facility] [address] [facility] [address] Performing Lab: [facility] [address] [facility] [address] EXTRA BLUE TUBE RECEIVED May 08, 2022 09:32 PM [facility] EXTRA BRASWELL TUBE Specim en Type: PLASMA No comment enter ed. Ordering Provid er: MD ESTEBAN Report Released Date/Time: May 08, 2022 09:37 PM Reporting Lab: [facility] [address] [facility] [address] Performing Lab: [facility] [address] [facility] [address] EXTRA BRASWELL TUBE RECEIVED May 08, 2022 09:32 PM [facility] BNP Specim en Type: PLASMA No comment enter ed. Ordering Provid er: OG DIAL Report Released Date/Time: May 08, 2022 09:50 PM Reporting Lab: [facility] [address] [facility] [address] Performing Lab: [facility] [address] [facility] [address] BNP 897 H <99 May 08, 2022 09:32 PM [facility] LACTIC ACID Specim en Type: PLASMA No comment enter ed. Ordering Provid er: OG DIAL Report Released Date/Time: May 08, 2022 09:49 PM Reporting Lab: [facility] [address] [facility] [address] Performing Lab: [facility] [address] LACTIC ACID 2.5 H 0.5-2.2 May 08, 2022 09:32 PM [facility] BLOOD GASES Specim en Type: VENOUS BLOOD Comment: O2 THE RAPY = 3L PM Ordering Provid er: OG DIAL Report Released Date/Time: May 08, 2022 09:50 PM Reporting Lab: [facility] [address] Performing Lab: [facility] [address] PH 7.36 7.33-7.43 PCO2 47 41-51 BICARBONATE 24.4 21.0-30.0 PO2 31 L 35-40 OXYGEN SATURATION 54.7 L 70.0-75.0 PH(TEMP CORRECTED) 7.37 7.33-7.43 PCO2(TEMP CORRECTED) 46 41-51 PO2(TEMP CORRECTED) 31 L 35-40 PATIENT TEMPERATURE 36.7 May 08, 2022 09:32 PM [facility] CBC Specim en Type: BLOOD No comment enter ed. Ordering Provid er: OG DIAL Report Released Date/Time: May 08, 2022 09:50 PM Reporting Lab: [facility] [address] Performing Lab: [facility] [address] WBC 18.54 H 4.0-11.0 RBC 3.68 L 4.6-6.2 HGB 11.5 L 13.5-17.9 HCT 35.1 L 41-54 MCV 95.4 80-100 MCH 31.3 27-33 MCHC 32.8 32.0-37.5 PLT 221 150-400 MPV 11.1 H 7.4-10.4 RDW 14.9 H 11.5-14.5 May 08, 2022 [facility] COMPREHENSIVE METABOLIC Spec imen Type: PLASMA 09:32 PM PANEL+MG No comment enter ed. Ordering Provid er: OG DIAL Report Released Date/Time: May 08, 2022 09:50 PM Reporting Lab: [facility] [address] [facility] [address] Performing Lab: [facility] [address] [facility] [address] CREATININE 1.3 H 0.7-1.2 UREA NITROGEN 26 [...] 54 L >60 May 08, 2022 08:27 [facility] FINGERSTICK GLUCOSE Speci men Type: BLOOD PM Comment: Mark casillas Nurse Notified Ordering Provid er: CODIE LEON Report Released Date/Time: May 08, 2022 08:55 PM Reporting Lab: [facility] [address] [facility] [address] Performing Lab: [facility] [address] [facility] [address] FINGERSTICK GLUCOSE 272 H 70-100 May 08, 2022 06:56 [facility] FINGERSTICK GLUCOSE Speci men Type: BLOOD PM Comment: Mark casillas Ordering Provid er: CODIE LEON Report Released Date/Time: May 08, 2022 07:08 PM Reporting Lab: [facility] [address] [facility] [address] Performing Lab: [facility] [address] [facility] [address] FINGERSTICK GLUCOSE 262 H 70-100 May 08, 2022 04:50 [facility] FINGERSTICK GLUCOSE Speci men Type: BLOOD PM Comment: Nurse Notified Ordering Provid er: CODIE LEON Report Released Date/Time: May 08, 2022 05:14 PM Reporting Lab: [facility] [address] [facility] [address] Performing Lab: [facility] [address] [address] FINGERSTICK GLUCOSE 330 H 70-100 May 08, 2022 11:21 [facility] FINGERSTICK GLUCOSE Speci men Type: BLOOD AM Comment: Mark casillas Nurse Notified Ordering Provid er: CODIE LEON Report Released Date/Time: May 08, 2022 11:51 AM Reporting Lab: [facility] [address] Performing Lab: [facility] [address] FINGERSTICK GLUCOSE 231 H 70-100 May 08, 2022 07:25 AM [facility] CBC & DIFF Specim en Type: BLOOD Comment: Automa nola Differential Performed Ordering Provid er: BETO AYALA Report Released Date/Time: May 07, 2022 12:28 PM Reporting Lab: [facility] [address] Performing Lab: [facility] [address] WBC 16.29 H 4.0-11.0 RBC 3.38 L [...] GRAN 0.26 H 0-0.1 May 08, 2022 [facility] PROTHROMBIN TIME/INR Specime n Type: PLASMA 07:25 AM No comment enter ed. Ordering Provid er: BETO AYALA Report Released Date/Time: May 07, 2022 12:28 PM Reporting Lab: [facility] [address] Performing Lab: [facility] [address] .INR 1.2 H 0.8-1.1 .PT 14.2 H 9.4-12.5 May 08, 2022 [facility] COMPREHENSIVE METABOLIC Spec imen Type: PLASMA 07:25 AM PANEL+MG No comment enter ed. Ordering Provid er: BETO AYALA Report Released Date/Time: May 07, 2022 12:28 PM Reporting Lab: [facility] [address] [facility] [address] Performing Lab: [facility] [address] [facility] [address] CREATININE 1.1 0.7-1.2 UREA NITROGEN 27 H [...] EGFR(CKD-EPI) 65 >60 May 08, 2022 06:53 [facility] FINGERSTICK GLUCOSE Speci men Type: BLOOD AM Comment: Mark casillas Ordering Provid er: CODIE LEON Report Released Date/Time: May 08, 2022 07:18 AM Reporting Lab: [facility] [address] [facility] [address] Performing Lab: [facility] [address] [facility] [address] FINGERSTICK GLUCOSE 276 H 70-100 May 07, 2022 08:36 [facility] FINGERSTICK GLUCOSE Speci men Type: BLOOD PM Comment: Nurse Notified Ordering Provid er: CODIE LEON Report Released Date/Time: May 08, 2022 12:29 AM Reporting Lab: [facility] [address] [facility] [address] Performing Lab: [facility] [address] [facility] [address] FINGERSTICK GLUCOSE 282 H 70-100 May 07, 2022 07:04 PM [facility] LACTIC ACID Specim en Type: PLASMA No comment enter ed. Ordering Provid er: BETO AYALA Report Released Date/Time: May 07, 2022 06:28 PM Reporting Lab: [facility] [address] [facility] [address] Performing Lab: [facility] [address] [facility] [address] LACTIC ACID 2.0 0.5-2.2 May 07, 2022 04:46 [facility] FINGERSTICK GLUCOSE Speci men Type: BLOOD PM Comment: Nurse Notified Ordering Provid er: BETO AYALA Report Released Date/Time: May 07, 2022 05:00 PM Reporting Lab: [facility] [address] [facility] [address] Performing Lab: [facility] [address] [facility] [address] FINGERSTICK GLUCOSE 274 H 70-100 May 07, 2022 12:47 [facility] FINGERSTICK GLUCOSE Speci men Type: BLOOD PM Comment: Mark casillas Nurse Notified Ordering Provid er: BETO AYALA Report Released Date/Time: May 07, 2022 05:32 PM Reporting Lab: [facility] [address] [facility] [address] Performing Lab: [facility] [address] [facility] [address] FINGERSTICK GLUCOSE 309 H 70-100 May 07, 2022 06:35 [facility] FINGERSTICK GLUCOSE Speci men Type: BLOOD AM Comment: Mark casillas Nurse Notified Ordering Provid er: GAYLA DOMINGUEZ Report Released Date/Time: May 07, 2022 06:46 AM Reporting Lab: [facility] [address] [facility] [id number] Performing Lab: [facility] [address] [facility] [address] FINGERSTICK GLUCOSE 352 H 70-100 May 07, 2022 06:15 AM [facility] ALBUMIN Specim en Type: PLASMA No comment enter ed. Ordering Provid er: GAYLA DOMINGUEZ Report Released Date/Time: May 06, 2022 06:33 PM Reporting Lab: [facility] [address] [facility] [address] Performing Lab: [facility] [address] [facility] [address] ALBUMIN 3.0 L 3.5-5.2 May 07, 2022 [facility] COMPREHENSIVE METABOLIC Spec imen Type: PLASMA 06:15 AM PANEL+MG No comment enter ed. Ordering Provid er: GAYLA DOMINGUEZ Report Released Date/Time: May 06, 2022 09:11 PM Reporting Lab: [facility] [address] Performing Lab: [facility] [address] CREATININE 1.2 0.7-1.2 UREA NITROGEN 25 8-26 [...] L >60 May 07, 2022 06:15 AM [facility] CBC & DIFF Specim en Type: BLOOD Comment: Manual Differential Performed Ordering Provid er: GAYAL DOMINGUEZ Report Released Date/Time: May 06, 2022 09:11 PM Reporting Lab: [facility] [address] Performing Lab: [facility] [address] WBC 20.25 H 4.0-11.0 RBC 3.54 L [...] NORMOCYTIC, NORMOCHROMIC May 07, 2022 12:19 AM [facility] LACTIC ACID Specim en Type: PLASMA No comment enter ed. Ordering Provid er: GAYLA DOMINGUEZ Report Released Date/Time: May 06, 2022 07:13 PM Reporting Lab: [facility] [address] [facility] [address] Performing Lab: [facility] [address] [facility] [address] LACTIC ACID 2.7 H 0.5-2.2 May 06, 2022 10:45 [facility] FINGERSTICK GLUCOSE Speci men Type: BLOOD PM Comment: Mark casillas Nurse Notified Ordering Provid er: GAYLA DOMINGUEZ Report Released Date/Time: May 07, 2022 12:08 AM Reporting Lab: [facility] [address] [facility] [address] Performing Lab: [facility] [address] [facility] [address] FINGERSTICK GLUCOSE 320 H 70-100 May 06, 2022 06:53 [facility] MRSA SURVL NARES Specimen Type: NARES PM DNA No comment enter ed. Ordering Provid er: GAYLA DOMINGUEZ Report Released Date/Time: May 06, 2022 06:33 PM Reporting Lab: [facility] [address] [facility] [address] Performing Lab: [facility] [address] [facility] [address] MRSA SURVL NARES DNA POSITIVE HH Negative May 06, 2022 06:51 [facility] CARDIAC TROPONIN I Specim en Type: PLASMA PM No comment enter ed. Ordering Provid er: GAYLA DOMINGUEZ Report Released Date/Time: May 06, 2022 06:05 PM Reporting Lab: [facility] [address] [facility] [address] Performing Lab: [facility] [address] [facility] [address] CARDIAC TROPONIN I <0.028 <0.028 May 06, 2022 06:51 PM [facility] LACTIC ACID Specim en Type: PLASMA No comment enter ed. Ordering Provid er: GAYLA DOMINGUEZ Report Released Date/Time: May 06, 2022 06:04 PM Reporting Lab: [facility] [address] [facility] [address] Performing Lab: [facility] [address] [facility] [address] LACTIC ACID 3.1 H 0.5-2.2 May 06, 2022 06:51 [facility] EXTRA GOLD GEL TUBE Speci men Type: SERUM PM No comment enter ed. Ordering Provid er: GAYLA DOMINGUEZ Report Released Date/Time: May 06, 2022 06:52 PM Reporting Lab: [facility] [address] [facility] [address] Performing Lab: [facility] [address] [facility] [address] EXTRA GOLD GEL TUBE RECEIVED May 06, 2022 06:51 [facility] C-REACTIVE PROTEIN Specim en Type: PLASMA PM No comment enter ed. Ordering Provid er: GAYLA DOMINGUEZ Report Released Date/Time: May 06, 2022 09:29 PM Reporting Lab: [facility] [address] [facility] [address] Performing Lab: [facility] [address] [facility] [address] C-REACTIVE PROTEIN 392.40 H <5.00 May 06, 2022 10:51 AM [facility] URINALYSIS Specim en Type: URINE No comment enter ed. Ordering Provid er: MODESTA VILLANUEVA Report Released Date/Time: May 06, 2022 10:11 AM Reporting Lab: [facility] [address] [facility] [address] Performing Lab: [facility] [address] [facility] [address] URINE COLOR YELLOW SPECIFIC GRAVITY 1.020 1.003-1.035 [...] ESTERASE 500 NEGATIVE May 06, 2022 10:24 [facility] COVID-19 DIAGNOSTIC Speci men Type: NASOPHARYNGEAL AM PANEL (CEPHEID) Comment: Cepjosseline lopez GeneXpert (618) Ordering Provid er: MODESTA VILLANUEVA Report Released Date/Time: May 06, 2022 10:11 AM Reporting Lab: [facility] [address] [facility] [address] Performing Lab: [facility] [address] [facility] [address] COVID-19 (CEPHEID) Not Detected Not Dete cted May 06, 2022 10:20 AM [facility] POC ABG/LACTATE Specim en Type: VENOUS BLOOD No comment enter ed. Ordering Provid er: MODESTA VILLANUEVA Report Released Date/Time: May 06, 2022 10:22 AM Reporting Lab: [facility] [address] [facility] [address] Performing Lab: [facility] [address] [facility] [address] POC PH 7.410 7.31-7.41 POC PCO2 28.9 L 35.00-45.00 POC PO2 82 H 35.0-40.0 POC TCO2 19 L 24.0-29.0 POC HCO3 18.3 L 23.0-28.0 POC BE ECT -6 L -2 POC SO2 96 H 70-75 POC LACTATE 3.62 0.90-1.70 May 06, 2022 10:00 AM [facility] PHOSPHORUS Specim en Type: PLASMA No comment enter ed. Ordering Provid er: MODESTA VILLANUEVA Report Released Date/Time: May 06, 2022 10:11 AM Reporting Lab: [facility] [address] [facility] [address] Performing Lab: [facility] [address] [facility] [address] PHOSPHORUS 2.5 2.3-4.7 May 06, 2022 10:00 [facility] ACT PART THROMBO TIME Spe cimen Type: PLASMA AM No comment enter ed. Ordering Provid er: MODESTA VILLANUEVA Report Released Date/Time: May 06, 2022 10:11 AM Reporting Lab: [facility] [address] [facility] [address] Performing Lab: [facility] [address] [facility] [address] APTT 37.8 H 25.1-36.5 May 06, 2022 10:00 [facility] PROTHROMBIN TIME/INR Spec imen Type: PLASMA AM No comment enter ed. Ordering Provid er: MODESTA VILLANUEVA Report Released Date/Time: May 06, 2022 10:11 AM Reporting Lab: [facility] [address] [facility] [address] Performing Lab: [facility] [address] [facility] [address] .INR 2.5 H 0.8-1.1 .PT 29.2 H 9.4-12.5 May 06, 2022 10:00 [facility] CARDIAC TROPONIN I Specim en Type: PLASMA AM Comment: Critic al Value Reported To: BROOKS FONTAINENICamron COTE 05-06-2022 @1053 BY MBB. Critical value report confirmed. Ordering Provid er: MODESTA VILLANUEVA Report Released Date/Time: May 06, 2022 10:11 AM Reporting Lab: [facility] [address] [facility] [address] Performing Lab: [facility] [address] [facility] [address] CARDIAC TROPONIN I 0.035 HH <0.028 May 06, 2022 10:00 AM [facility] PROCALCITONIN Specim en Type: PLASMA No comment enter ed. Ordering Provid er: MODESTA VILLANUEVA Report Released Date/Time: May 06, 2022 10:11 AM Reporting Lab: [facility] [address] [facility] [address] Performing Lab: [facility] [address] [facility] [address] PROCALCITONIN 22.29 H <0.09 May 06, 2022 10:00 AM [facility] LIPASE Specim en Type: PLASMA No comment enter ed. Ordering Provid er: MODESTA VILLANUEVA Report Released Date/Time: May 06, 2022 10:11 AM Reporting Lab: [facility] [address] [facility] [address] Performing Lab: [facility] [address] [facility] [address] LIPASE <4 <60 May 06, 2022 [facility] COMPREHENSIVE METABOLIC Spec imen Type: PLASMA 10:00 AM PANEL+MG Comment: Manual Differential Performed Ordering Provid er: MODESTA VILLANUEVA Report Released Date/Time: May 06, 2022 10:11 AM Reporting Lab: [facility] [address] [facility] [address] Performing Lab: [facility] [address] [facility] [address] CREATININE 1.3 H 0.7-1.2 UREA NITROGEN 25 [...] 54 L >60 May 06, 2022 10:00 AM [facility] CBC & DIFF Specim en Type: BLOOD Comment: Manual Differential Performed Ordering Provid er: MODESTA VILLANUEVA Report Released Date/Time: May 06, 2022 10:11 AM Reporting Lab: [facility] [address] [facility] [address] Performing [facility]: [facility] [address] WBC 18.82 H 4.0-11.0 RBC 3.70 L [...] .RBC MORPHOLOGY PRESENT May 06, 2022 10:00 [facility] EXTRA GOLD GEL TUBE Speci men Type: SERUM AM No comment enter ed. Ordering Provid er: LINNEA RAND Report Released Date/Time: May 06, 2022 10:25 AM Reporting Lab: [facility] [address] [facility] [address] Performing Lab: [facility] [address] [facility] [address] EXTRA GOLD GEL TUBE RECEIVED May 06, 2022 09:46 [facility] FINGERSTICK GLUCOSE Speci men Type: BLOOD AM Comment: Mark casillas Nurse Notified Ordering Provid er: MODESTA VILLANUEVA Report Released Date/Time: May 06, 2022 09:59 AM Reporting [facility]: [facility] [address] Performing Lab: [facility] [address] [facility] [address] FINGERSTICK GLUCOSE 369 H 70-100 Apr 30, 2022 09:17 AM [facility] CBC Specim en Type: BLOOD No comment enter ed. Ordering Provid er: BILL ROONEY Report Released Date/Time: Apr 30, 2022 08:21 AM Reporting Lab: [facility] [place] [address] [facility] [address] Performing Lab: [facility] [address] [facility] [address] WBC 10.40 4.0-11.0 RBC 3.96 L 4.6-6.2 HGB 12.3 L 13.5-17.9 HCT 37.8 L 41-54 MCV 95.5 80-100 MCH 31.1 27-33 MCHC 32.5 32.0-37.5 PLT 286 150-400 MPV 10.1 7.4-10.4 RDW 14.6 H 11.5-14.5 Apr 30, 2022 [facility] BASIC METABOLIC Specimen Typ e: PLASMA 09:17 AM PANEL+MG No comment enter ed. Ordering Provid er: BILL ROONEY Report Released Date/Time: Apr 30, 2022 08:21 AM Reporting Lab: [facility] [address] [facility] [address] Performing Lab: [facility] [address] CREATININE 1.2 0.7-1.2 UREA NITROGEN 26 8-26 GLUCOSE 140 H 70-100 SODIUM 138 136-145 POTASSIUM 3.8 3.5-5.1 CHLORIDE 107 98-107 CO2 20 L 22-29 CALCIUM 9.4 8.4-10.2 MAGNESIUM 1.7 1.6-2.6 ANION GAP 11 5-15 CREAT EGFR(CKD-EPI) 59 L >60 Apr 02, 2022 02:37 PM [facility] B 12 Specim en Type: SERUM No comment enter ed. Ordering Provid er: MADISON SOL Report Released Date/Time: Apr 02, 2022 02:05 PM Reporting Lab: [facility] [address] [facility] [address] Performing Lab: [facility] [address] [facility] [address] B 12 [phone] Apr 02, 2022 02:37 PM [facility] AMMONIA Specim en Type: PLASMA No comment enter ed. Ordering Provid er: ONELIA SOLJOSSELIN Knox Report Released Date/Time: Apr 02, 2022 02:05 PM Reporting Lab: [facility] [address] [facility] [address] Performing Lab: [facility] [address] [facility] [address] AMMONIA <14 <72 Apr 02, 2022 [facility] LIVER FUNCTION TESTS Specime n Type: PLASMA 02:37 PM No comment enter ed. Ordering Provid er: KRISTIONELIA NOWAKJOSSELIN Knox Report Released Date/Time: Apr 02, 2022 02:05 PM Reporting Lab: [facility] [address] [facility] [address] Performing Lab: [facility] [address] [facility] [address] BILIRUBIN, TOTAL 0.5 0.2-1.2 ALKALINE PHOSPHATASE 108 40-150 ALT/SGPT 24 <55 AST/SGOT 18 <34 GAMMA GTP 34 <64 Apr 02, 2022 [facility] METHYLMA ACID, [place] Specime n Type: SERUM 02:37 PM Comment: This t est was developed and its analytical performance characteristics have been determined by [place]. It has not been cleared or approved by the U.S . Food and Drug Administration. This assay has been validated pursuant to the CLIA regulations and is used for clinical purposes. Test Performed by [facility], [employer] [facility], [address] [place] [address] Domenic Miller M.D., Ph.D., Director of Laboratories , CLIA [id number] Ordering Provid er: MADISON SOL Report Released Date/Time: Apr 02, 2022 04:37 PM Reporting Lab: [facility] [address] [facility] [address] Performing Lab: [address] METHYLMA ACID, [place] 406 H 45-883 Social History: Smoking Status (Most current) and Tobacco Use (All prior to encounter date) This section includes the most current, and the historical, smoking and tobacco-related health factors from the [facility] where the Encounter took place.Current Smoking Status This section includes the most current smoking, or tobacco-related health factor, from the [facility] where the Encounter took place. Date/Time Current Smoking Status Comment Facility Feb 02, 2022 09:30 AM [facility] NEVER USED [place] [facility] Tobacco Use History This section includes a history of the smoking, or tobacco- related health factors, that were collected on or before the date of the Encounter. The data comes from the [place] facility where the Encounter took place. Date/Time Smoking Status/Tobacco Use Comment [facility] Mar 22, 2021 07:45 AM [...] comes from all [facility]. Date Advance Directives Provider Source Apr 18, 2018 ADVANCE DIRECTIVE LARISSA SIGALA [facility] Apr 18, 2018 ADVANCE DIRECTIVE DISCUSSION LARISSA SIGALA [facility] December 23, 2017 CLINICAL WARNING FARHAT SCHMID [facility] May 11, 2003 ADVANCE DIRECTIVE BERT CASILLAS [facility] Radiology Reports: +/- 30 days of [...] the Encounter. The data comes from all [facility]. Date/Time Radiology Report Provider Source May 11, 2022 09:46 CHEST 1 VIEW: SONJA OVALLES [facility] AM LUISANA EDDY [id number] 1935 M Exm Date: MAY 11, 2022@09:46 Req Phys: CODIE LEON Loc: OP Unknown /05-13-2022@05:05 Img Loc: MAIN X-RAY Service: PRIMARY CARE - MED OFFICE (Case [id number] COMPLETE) CHEST 1 VIEW (RAD Detailed) CPT:14483 Proc Modifiers : PORTABLE EXAM Reason for Study: resp distress Clinical History: [facility] IS NOT under investigation for COVID-19 or is COVID-19 negative Respiratory distress Responsible provider name and phone number to notify for critical findings if other than u ser placing the order and pager listed below: User placing orde rs pager: [phone] cell LAST CREATININE 1.6 H (05/11/22) Report Status: Verified Date Reported: MAY 11, 2022 Date Verified: MAY 11, 2022 Single Needle Tufting Machine Operator E-Sig:/ES/SONJA OVALLES MD Report: CHEST 1 VIEW [...] Primary Interpreting Staff: SONJA OVALLES MD, RADIOLOGIST (Single Needle Tufting Machine Operator) /CDC May 10, 2022 03:49 CT HEAD (P): RADIOLOGY,OUTSIDE [facility] PM NELY EDDYNETH Miguel [id number] -1935 M SERVICE Exm Date: MAY 10, 2022@15:49 Req Phys: CODIE LEON Loc: OP Unknown /05-13-2022@05:05 Img Loc: CT IMAGING Service: PRIMARY CARE - MED OFFICE (Case [id number] COMPLETE) CT HEAD/BRAIN W/O CONTRAST (CT Detailed) CPT:76172 Reason for Study: CHANGE IN MENTAL STATUS Clinical History: CHANGE IN MENTAL STATUS. ORDER ADMINISTRATIVELY ENTERED FOLLOWING SYSTEM OUTAGE. Report Status: Verified Date Reported: MAY 10, 2022 Date Verified: MAY 10, 2022 Single Needle Tufting Machine Operator E-Sig: Report: CT HEAD/BRAIN W/O CONTRAST [PRINTSET] HISTORY: Change in mental status. COMPARISON: CT from 05/07/2022. TECHNIQUE: Contiguous axial CT images from the level of the skull base through the skull apex, with coronal and s agittal reformats, performed at the local [place] facility. 321 images were received by the [place] National Teleradiology Program (NTP) for interpretation. RADIATION [...] study. READING PHYSICIAN: Akash Mccoy M.D. -[phone] 05/10/2022 17:35 PDT [facility] National Teleradiology Program [phone] (For Medical Practitioner Use Only ) Attention Patients / Veterans: If you have ques tions or concerns about these test results, please contact your o rdering provider or primary care team. Primary Interpreting Staff: RADIOLOGY,OUTSIDE SERVICE, Staff Physician / May 08, 2022 07:45 CT T-SPINE (P): RADIOLOGY,OUTSIDE [facility] PM LUISANA EDDY [id number] -1935 M SERVICE Exm Date: MAY 08, 2022@19:45 Req Phys: CODIE LEON Loc: OP Unknown /05-13-2022@05:05 Img Loc: CT IMAGING Service: PRIMARY CARE - MED OFFICE (Case [id number] COMPLETE) CT SPINE THORACIC W/O CONTR AST (CT Detailed) CPT:55213 Reason for Study: mrsa bacteremia, spinal surge ry - r/o abscess or discitis Clinical History: [place] IS NOT under investigation for COVID-19 or is COVID-19 negative Defer to radiologist for final CT protocol. Responsible provider name and phone number to n otify for critical findings if other than user placing the order a nd pager listed below: User placing orders pager: [phone] LAST 3: Collection DT Specimen Test Name [...] GFR (eGF 44 L Ref: >=60 Allergies: ([facility] only) SIMVASTATIN (Feb 29, 2004) CEPHALEXIN (Mar 01, 2004) Report Status: Verified Date Reported: MAY 08, 2022 Date Verified: MAY 08, 2022 Single Needle Tufting Machine Operator E-Sig: Report: CT SPINE THORACIC W/O CONTRAST [PRINTSET] HISTORY:MRSA bacteremia NUMBER OF IMAGES:1151 COMPARISON: Correlation with images from recent CT abdomen and pelvis May 06, 2022 TECHNIQUE: A non contrast CT of the thoracic sp ine [facility] to [facility] for interpretation. Axial, coronal and sagittal [...] thoracic level. READING PHYSICIAN: Luisana Webb MD -[id number] 05/08/2022 19:20 PDT [facility] National Teleradiology Program [phone] (For Medical Practitioner Use Only ) Attention Patients / Veterans: If you have ques tions or concerns about these test results, please contact your [facility] provider or primary care team. Primary Interpreting Staff: RADIOLOGY,OUTSIDE SERVICE, Staff Physician / May 08, 2022 04:48 CHEST 1 VIEW: RADIOLOGY,OUTSIDE [facility] LUISANA EDDY [id number] -1935 M SERVICE Exm Date: MAY 08, 2022@16:48 Req Phys: CODIE LEON Pat Loc: OP Unknown /05-13-2022@05:05 Img Loc: MAIN X-RAY Service: PRIMARY CARE - MED OFFICE (Case [id number] COMPLETE) CHEST 1 VIEW (RAD Detailed) CPT:89579 Proc Modifiers : PORTABLE EXAM Reason for Study: dyspnea Clinical History: [place] IS NOT under investigation for COVID-19 or is COVID-19 negative acute worsening of dyspnea Responsible provider name and phone number to notify for critical findings if other than user placing the order and pager listed below: User placing orders pager: [phone] malini cell [phone] LAST CREATININE 1.1 (05/08/22) Report Status: Verified Date Reported: MAY 08, 2022 Date Verified: MAY 08, 2022 Single Needle Tufting Machine Operator E-Sig: Report: CHEST 1 VIEW HISTORY: dyspnea COMPARISON: 05/06/2022 TECHNIQUE: Frontal view(s) of the chest, submit nola to the [place] National Teleradiology Program (NTP) for interp retation. FINDINGS: Reduced lung volumes. Progressive cardiomegaly, and vascular congestion as well as diffuse interstitial prom inence with probable small effusions. Impression: Expiratory exam with findings of CHF and mild e santa READING PHYSICIAN: Nghia Menjivar M.D. -[id number] [phone] 05/08/2022 18:57 EDT [facility] National Teleradiology Program [phone] (For Medical Practitioner Use Only ) Attention Patients / Veterans: If you have ques tions or concerns about these test results, please contact your o rdering provider or primary care team. Primary Interpreting Staff: RADIOLOGY,OUTSIDE SERVICE, Staff Physician / May 07, 2022 10:29 CT HEAD (P): SHANI POLANCO [facility] AM LUISANA EDDY [id number] -1935 M Exm Date: MAY 07, 2022@10:29 Req Phys: BETO AYALA Loc: OP Unknown/0 05-13-2022@05:05 Img Loc: CT IMAGING Service: PRIMARY CARE - MED OFFICE (Case [id number] COMPLETE) CT HEAD/BRAIN W/O CONTRAST ( CT Detailed) CPT:23031 Reason for Study: seizure noted at [facility] Clinical History: [place] IS NOT under investigation for COVID-19 or is COVID-19 negative Defer to radiologist for final CT protocol. Responsible provider name and phone number to n otify for critical findings if other than user placing the order a nd pager listed below: User placing orders pager: [phone] LAST 3: Collection DT Specimen Test Name [...] GFR (eGF 44 L Ref: >=60 Allergies: ([facility] only) SIMVASTATIN (Feb 29, 2004) CEPHALEXIN (Mar 01, 2004) Report Status: Verified Date Reported: MAY 07, 2022 Date Verified: MAY 07, 2022 Single Needle Tufting Machine Operator E-Sig:/ES/SHANI POLANCO MD Report: EXAM: CT HEAD/BRAIN W/O CONTRAST HISTORY: seizure noted at [facility] Reason for Study: seizure noted at [facility] [place] IS NOT under investigation for COVID-19 or is COVID-19 negative Defer to radiologist for final CT prot ocol. Responsible provider name and phone number to notify for cr itical findings if other than user placing the order and pager lis nola below: User placing orders pager: [phone] LAST 3: Collecti on DT Specimen Test [...] Primary Interpreting Staff: SHANI POLANCO MD, RADIOLOGIST (Single Needle Tufting Machine Operator) /Javed May 06, 2022 11:40 CHEST 1 VIEW: RADIOLOGY,OUTSIDE [facility] AM LUISANA EDDY [id number] -1935 M SERVICE Exm Date: MAY 06, 2022@11:40 Req Phys: MODESTA VILLANUEVA Loc: [facility] EMERGENCY DEPT WALK-IN (Re Img Loc: MAIN X-RAY Service: Unknown (Case [id number] COMPLETE) CHEST 1 VIEW (RAD Detailed) C PT:23761 Proc Modifiers : PORTABLE EXAM Reason for [...] pager listed below: User placing orders pager: [phone] LAST CREATININE 1.2 (04/30/22) Report Status: Verified Date Reported: MAY 06, 2022 Date Verified: MAY 06, 2022 Single Needle Tufting Machine Operator E-Sig: Report: Technique: Frontal chest. No comparison Impression: Cardiac silhouette is mildly enlarged. There is mild pulmonary venous congestion. No definite pleural effusion . No pneumothorax seen. READING PHYSICIAN: Vern Donnelly M.D. -[id number] 07 05/06/2022 13:26 EDT [facility] [employer] Teleradiology Program [phone] (For Medical Practitioner Use Only ) Attention Patients / Veterans: If you have ques tions or concerns about these test results, please contact [facility] provider or primary care team. Primary Interpreting Staff: RADIOLOGY,OUTSIDE SERVICE, Staff Physician / May 06, 2022 10:36 CT (AP) ABDOMEN/PELVIS (P): RADIOLOGY,OUTSIDE [facility] LUISANA EDDY [id number] -1935 M SERVICE Exm Date: MAY 06, 2022@10:36 Req Phys: MODESTA VILLANUEVA Loc: [facility] EMERGENCY DEPT WALK-IN (Re Img Loc: CT IMAGING Service: Unknown (Case [id number] COMPLETE) CT (AP) ABDOMEN/PELVIS W CONT RAST(CT Detailed) CPT:73601 Reason for Study: fever, back pain Clinical [...] pager listed below: User placing orders pager: [phone] LAST 3: Collection DT Specimen Test Name [...] ESTIMATED GFR(eGF 44 L Ref: >=60 Allergies: ([facility] only) SIMVASTATIN (Feb 29, 2004) CEPHALEXIN (Mar 01, 2004) To see allergies from all [facility] locations click Re ports tab>Remote Data>All Available Sites>Clinical Reports>Aller gies. Report Status: Verified Date Reported: MAY 06, 2022 Date Verified: MAY 06, 2022 Single Needle Tufting Machine Operator E-Sig: Report: Exam: CT (AP) ABDOMEN/PELVIS W CONTRAST [PRINTS ET] Clinical History: fever, back pain Number of images: 918 Comparison: No priors available Technique: The study was protocoled [facility] supervi [facility] of the abdomen and pelvis was performed afte r the uneventful administration of iodinated contrast. Images we re received by the [place] National Teleradiology [facility] (NTP) for interpretation. Total [...] findings, above. READING PHYSICIAN: Eduin Donaldson M.D. -[phone] 05/06/2022 12:48 [facility] National Teleradiology Program [phone] (For Medical Practitioner Use Only ) Attention Patients / Veterans: If you have ques tions or concerns about these test results, please contact [facility] or primary care team. Primary Interpreting Staff: RADIOLOGY,OUTSIDE SERVICE, Staff Physician / May 06, 2022 10:35 CT CERVICAL SPINE W/O CONTRAST: RADIOLOGY,OUT SIDE [facility] AM LUISANA EDDY [id number] -1935 M SERVICE Exm Date: MAY 06, 2022@10:35 Req Phys: MODESTA VILLANUEVA Loc: [facility] EMERGENCY DEPT WALK-IN (Re Img Loc: CT IMAGING Service: Unknown (Case 65 COMPLETE) CT CERVICAL SPINE W/O CONTRAS T (CT Detailed) CPT:15474 Reason for Study: falls, blood thinner, AMS, se izure Clinical History: falls, blood thinner, AMS, seizure [place] IS under investigation (PUI) for COVID- 19 or is COVID-19+ Defer to radiologist for final CT protocol. Responsible provider name and phone number to n otify for critical findings if other than user placing the order a nd pager listed below: User placing orders pager: [phone] LAST 3: Collection DT Specimen Test Name [...] ESTIMATED GFR(eGF 44 L Ref: >=60 Allergies: ([place] only) SIMVASTATIN (Feb 29, 2004) CEPHALEXIN (Mar 01, 2004) To see allergies from all [facility] locations click Re ports tab>Remote Data>All Available Sites>Clinical Reports>[facility] gies. Report Status: Verified Date Reported: MAY 06, 2022 Date Verified: MAY 06, 2022 Single Needle Tufting Machine Operator E-Sig: Report: CT CERVICAL SPINE W/O CONTRAST HISTORY:falls, blood thinner, AMS, seizure NUMBER OF IMAGES:770 COMPARISON: None available. TECHNIQUE: A non contrast CT of the cervical sp ine was [facility] at the local [facility]. Images were subsequently sent to [facility] for interpretation. Axial, coronal and sagittal [...] tissues: 11 mm subcutaneous cyst in the [facility] upper neck. Impression: -Motion artifact limits the exam. -Given this limitation, no acute osseous abnorm ality. -Moderate multilevel degenerative change throug hout the cervical spine. -Ancillary findings, above. READING PHYSICIAN: Eduin Donaldson M.D. -[phone] 05/06/2022 12:33 [facility] National Teleradiology Program [phone] (For Medical Practitioner Use Only ) Attention Patients / Veterans: If you have ques tions or concerns about these test results, please contact your o rdering provider or primary care team. Primary Interpreting Staff: RADIOLOGY,OUTSIDE SERVICE, Staff Physician / May 06, 2022 10:35 CT HEAD/BRAIN W/O CONTRAST: RADIOLOGY,OUTSIDE [facility] AM LUISANA EDDY [id number] -1935 M SERVICE Exm Date: MAY 06, 2022@10:35 Req Phys: MODESTA VILLANUEVA Loc: [facility] EMERGENCY DEPT WALK-IN (Re Img Loc: CT IMAGING Service: Unknown (Case 64 COMPLETE) CT HEAD/BRAIN W/O CONTRAST (C T Detailed) CPT:86706 Reason for Study: falls, blood thinner, AMS, se izure Clinical History: falls, blood thinner, AMS, seizure IS under investigation (PUI) for COVID- 19 or is COVID-19+ Defer to radiologist for final CT protocol. Responsible provider name and phone number to n otify for critical findings if other than user placing the order a nd pager listed below: User placing orders pager: [phone] LAST 3: Collection DT Specimen Test Name [...] ESTIMATED GFR(eGF 44 L Ref: >=60 Allergies: ([place] only) SIMVASTATIN (Feb 29, 2004) CEPHALEXIN (Mar 01, 2004) To see allergies from all [facility] locations click Re ports tab>Remote Data>All Available Sites>Clinical Reports>[facility]. Report Status: Verified Date Reported: MAY 06, 2022 Date Verified: MAY 06, 2022 Single Needle Tufting Machine Operator E-Sig: Report: CT HEAD/BRAIN W/O CONTRAST Clinical History: falls, blood thinner, AMS, se izure Number of Images: 532 Comparison: 03/12/2022 Technique: The study was protocoled and supervi [facility] local [facility] of the head without contrast. I mages were subsequently received by the [place] National Telera diology Program (NTP) for interpretation. [...] T findings. READING PHYSICIAN: Eduin Donaldson M.D. -[phone] 05/06/2022 12:30 [facility] National Teleradiology Program [phone] (For Medical Practitioner Use Only ) Attention Patients / Veterans: If you have ques tions or concerns about these test results, please contact your [facility] provider or primary care [...] the Encounter. The data comes from all [place] treatment facilities. Date/Time Pathology Report Provider Source May 09, 2022 05:30 AM LR MICROBIOLOGY REPORT: [facility] Reporting Lab: [facility] [CLIA# [id number]] [place] [address] Accession [UID]: [id number] [[id number]] Receiv ed: May 09, 2022@01:35 Collection sample: BLOOD Collection date: Apr 05:30 Provider: CODIE LEON Comment on specimen: LEFT ARM, RECEIVED 2 BLOOD CULTURE BOTTLES Test(s) ordered: CULTURE & SUSCEPTIBILITY...... 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 R TRIMETH/SULFA................. S TETRACYCLINE.................. S CLINDAMYCIN................... S RIFAMPIN...................... S VANCOMYCIN.................... S Bacteriology Remark(s): VANCOMYCIN SHAMIKA: <=0.5 ug/mL THIS REPORT IS FINAL =--=--=--=--=--=--=--=--=--=--=--=--=--= --=--=--=--=--=--=--=--=--=--=--=--=-- Performing Laboratory: Bacteriology Report Performed By: [facility] [CLIA# [id number]] [place] [address] May 08, 2022 03:23 PM LR MICROBIOLOGY REPORT: [facility] Reporting Lab: [facility] [CLIA# [id number]] [place] [address] Accession [UID]: [id number] [[id number]] Receiv ed: May 08, 2022@15:41 Collection sample: BLOOD Collection date: Apr 15:23 Provider: CODIE LEON Comment on specimen: LEFT ARM, RECEIVED 2 BLOOD CULTURE BOTTLES Test(s) ordered: CULTURE & SUSCEPTIBILITY...... completed: May 10, 2022 * BACTERIOLOGY FINAL REPORT => May 10, 2022 16:3 1 TECH CODE: [id number] CULTURE RESULTS: GROWTH SAME THAT OF ANOTHER CULTURE Comment: FOR SUSCEPTIBILITY REPORT SEE PREVIOUS POSITIVE SAME MB 22 [id number] ( 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 from Anaerobic bottle ) ( Recovered from Aerobic bottle ) Bacteriology Remark(s): THIS REPORT IS FINAL =--=--=--=--=--=--=--=--=--=--=--=--=--= --=--=--=--=--=--=--=--=--=--=--=--=-- Performing Laboratory: Bacteriology Report Performed By: [facility] [CLIA# [id number]] [place] [address] May 08, 2022 03:21 PM LR MICROBIOLOGY REPORT: [facility] Reporting Lab: [facility] [CLIA# [id number]] [place] [address] Accession [UID]: [id number] [[id number]] Receiv ed: May 08, 2022@15:40 Collection sample: BLOOD Collection date: Apr 15:21 Provider: CODIE LEON Comment on specimen: RT ARM, RECEIVED 2 BLOOD CU LTURE BOTTLES Test(s) ordered: CULTURE & SUSCEPTIBILITY...... completed: May 10, 2022 * BACTERIOLOGY FINAL REPORT => May 10, 2022 16:3 1 TECH CODE: [id number] CULTURE RESULTS: GROWTH SAME THAT OF ANOTHER CULTURE Comment: FOR SUSCEPTIBILITY REPORT SEE PREVIOUS POSITIVE SAME MB 22 [id number] ( 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 from Anaerobic bottle ) ( Recovered from Aerobic bottle ) Bacteriology Remark(s): THIS REPORT IS FINAL =--=--=--=--=--=--=--=--=--=--=--=--=--= --=--=--=--=--=--=--=--=--=--=--=--=-- Performing Laboratory: Bacteriology Report Performed By: [facility] [CLIA# [id number]] [place] [address] May 07, 2022 05:30 AM LR MICROBIOLOGY REPORT: [facility] Reporting Lab: [facility] [CLIA# [id number]] [place] [address] Accession [UID]: [id number] [[id number]] Receiv ed: May 07, 2022@01:35 Collection sample: BLOOD Collection date: Apr 05:30 Provider: GAYLA DOMINGUEZ Comment on specimen: RAC, RECEIVED 2 BLOOD CULTU RE BOTTLES Test(s) ordered: CULTURE & SUSCEPTIBILITY...... 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 ) ( Recovered from Anaerobic bottle ) Bacteriology Remark(s): THIS REPORT IS FINAL =--=--=--=--=--=--=--=--=--=--=--=--=--= --=--=--=--=--=--=--=--=--=--=--=--=-- Performing Laboratory: Bacteriology Report Performed By: [facility] [CLIA# [id number]] [place] [address] May 06, 2022 10:51 AM LR MICROBIOLOGY REPORT: [facility] Reporting Lab: [facility] [CLIA# [id number] 147] [place] [address] Accession [UID]: [id number] [[id number]] Receiv ed: May 06, 2022@11:32 Collection sample: [...] --=--=--=--=--=--=--=--=--=--=--=--=-- Performing Laboratory: Bacteriology Report Performed By: [facility] [CLIA# [id number]] [place] [address] May 06, 2022 10:34 AM LR MICROBIOLOGY REPORT: [facility] Reporting Lab: [facility] [CLIA# [id number] 147] [place] [address] Accession [UID]: [id number] [[id number]] Receiv ed: May 06, 2022@10:51 Collection sample: BLOOD Collection date: Apr 10:34 Provider: MODESTA VILLANUEVA Comment on specimen: RECEIVED 2 BLOOD CULTURE MILAN TTLES RAC Test(s) ordered: CULTURE & SUSCEPTIBILITY...... completed: May 07, 2022 * BACTERIOLOGY FINAL REPORT => May 08, 2022 08:3 0 TECH CODE: [id number] CULTURE RESULTS: STAPHYLOCOCCUS AUREUS METHICILL IN RESISTANT [...] --=--=--=--=--=--=--=--=--=--=--=--=-- Performing Laboratory: Bacteriology Report Performed By: [facility] [CLIA# [id number]] [place] [address] May 06, 2022 10:00 AM LR MICROBIOLOGY REPORT: [facility] Reporting Lab: [facility] [CLIA# [id number] 147] [place] [address] Accession [UID]: [id number] [[id number]] Receiv ed: May 06, 2022@10:41 Collection sample: [...] SUSCEPTIBILITY REPORT SEE PREVIOUS POSITIVE SAME 22 [id number] ( 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 Date/Time Encounter Note(s) Provider Source Apr 27, 2022 12:22 PM [facility] T[facility]: CAREGIVER SUPPORT CONSULT STANDARD TITLE: CONSULT DATE OF NOTE: APR 27, 2022@12:22 ENTRY DATE: APR 27, 2022@12:34:29 AUTHOR: DEBBIE KIRK EXP COSIGNER: URGENCY: STATUS: COMPLETED 9 minutes in phone call Name of Caregiver: Nathaniel Lorenzo Relationship of Caregiver to the [place]: The caregiver is the 's son. Caregiver Contact number: [phone] Reason(s) for Referral: Caregiver support groups Caregiver education and training Eligibility Evaluation for the Program of Gener al Caregiver Support Services Services/Education Offered: Caregiver Support Line education calls Information provided Peer Support [place] Program Information provided Building Better Caregivers Information provided REACH [place] Information provided Pat Caregiver Text Information provided Program of Comprehensive Assistance for Family Caregivers Information provided Program of General Caregiver Support Services Information provided Assessment and Plan: The Caregiver, Nathainel had limited time today to r eview the program. Construction Inspector provided a brief overview of the program with information about the Program of Comprehensive Assistance for Family Caregivers (PCAFC) as well as the Program of General Caregiver Support Services (PGCS S). He understood that the do not meet the criteria for PCAFC. He is interested in Prog deanne information and requested information be sent to [email or web address] Construction Inspector noted that contact information will be attached to correspondence for any addit ional questions. Information sent: Two Program what's the Difference PGC[employer] Resource Program List PCAFC Eligibility handout Caregiver Corner Newsletter Contact information No additional follow up needed at this time. /ronni/ DEBBIE KIRK General Caregiver Choir Singer Signed: 04/27/2022 13:32
--- OUTSIDE RECORDS SUMMARY | 2022-05-15 09:21 | XMS_ITS | Encounter Summary ---
:1935 Author Organization [facility] Address [address] [place] [address] Support Name Relationship Address Phone WADE LORENZO Unavailable [address] [place] [address] WADE LORENZO Unavailable [address] [place] [address] ARACELI MARSHALL Unavailable [address] [facility] [place] [address] ARACELI MARSHALL Unavailable [address] [place] [address] Insurance Providers: All historical and current Section [...] [place] MEDICARE MCR Aug 19, [id number] Kristel [facility] (WNR) ADVANTAGE (WNR) 2016 8 [id number] [phone] [facility] 1 [place] MEDICARE MCR Aug 19, [id number] [address] [facility] (WNR) ADVANTAGE (WNR) 2016 8 [id number] [phone] [facility] 1 Selected Encounter This section includes the information on record at [place] for the Encounter. Date/Time Encounter Type Encounter Reason Provider Source Description May 01, 2022 11:06 Outpatient ADMIN PAT ACTIVTIES ARACELI CASTRO AM Encounter (MASNONCT) E Encounter Template Text not used by [place] Plan of Treatment: Future Appointments (+ 6 months) and Future Tests (+/- 45 days) The Plan of Treatment section includes future care activities for the patient from all [place] [facility] This section includes future appointments and future orders which are active, pending orscheduled.Future Appointments This section includes appointments that were scheduled to occur 6 months from the date of the Encounter, up to a maximum of 20 appointments. The data comes from all [facility]. Appointment Date/Time Appointment Type Appointment Facili ty Name May 06, 2022 09:40 AM AMBULATORY - MEDICINE [facility] May 11, 2022 06:15 PM AMBULATORY - NONE [facility] Jul 23, 2022 08:00 AM AMBULATORY - NEUROLOGY [facility] Active, Pending, and Scheduled Orders This section includes a listing of several types of active, pending, and scheduled orders, including clinic medications orders, diagnostic test orders, procedure orders and consult orders; where the start date of the order is 45 days before the date of the Encounter or 45 days after the date of the Encounter. The data comes from all [facility]. Test Date/Time Test Type Test Details Facility Name Apr 30, 2022 08:21 Laboratory - Chemistry URINALYSIS URINE WC ON CE [facility] AM Order Apr 30, 2022 08:21 Laboratory - CULTURE & SUSCEPTIBILITY [facility] AM Microbiology Order URINE WC May 06, 2022 12:00 Laboratory - Blood ABO/RH - LAB BLOOD [facility] AM Bank Order May 06, 2022 10:11 Laboratory - Blood TYPE & SCREEN - LAB [facility] AM Bank Order BLOOD WC May 06, 2022 10:27 [facility] AM Medication Order May 06, 2022 10:28 [facility] AM Infusion Order May 06, 2022 10:34 [facility] AM Infusion Order May 06, 2022 10:41 [facility] AM Infusion Order May 06, 2022 12:15 [facility] PM Medication Order May 06, 2022 01:31 [facility] PM Medication Order May 06, 2022 04:49 Pharmacy [facility] PM Medication Order May 07, 2022 01:00 Laboratory - CULTURE & SUSCEPTIBILITY [facility] PM Microbiology Order BLOOD WC ONCE May 11, 2022 09:07 Laboratory - CULTURE & SUSCEPTIBILITY [facility] AM Microbiology Order BLOOD WC May 11, 2022 09:07 [facility] Microbiology Order BLOOD WC May 11, 2022 09:38 Laboratory - Chemistry EOSINOPHIL SMEAR,URINE [facility] AM Order URINE WC ONCE May 11, 2022 09:38 Laboratory - Chemistry URINALYSIS URINE WC ON CE [facility] AM Order May 11, 2022 09:38 Laboratory - Chemistry FENA URINE WC ONCE MIN [facility] AM Order Lab Results: +/- 30 [...] Reference Range Comment May 11, 2022 11:13 [facility] FINGERSTICK GLUCOSE Speci men Type: BLOOD AM Comment: Mark casillas Nurse Notified Ordering Provid er: CODIE LEON Report Released Date/Time: May 11, 2022 11:53 AM Reporting Lab: [facility] [address] [facility] [address] Performing Lab: [facility] [address] [facility] [address] FINGERSTICK GLUCOSE 367 H 70-100 May 11, 2022 07:05 AM [facility] CK,TOTAL Specim en Type: PLASMA No comment enter ed. Ordering Provid er: CODIE LEON Report Released Date/Time: May 11, 2022 09:08 AM Reporting Lab: [facility] [address] [facility] [address] Performing Lab: [facility] [address] [facility] [address] CK,TOTAL 16 L 39-208 May 11, 2022 07:05 AM [facility] CBC Specim en Type: BLOOD No comment enter ed. Ordering Provid er: OG DIAL Report Released Date/Time: May 11, 2022 04:46 AM Reporting Lab: [facility] [address] [facility] [address] Performing Lab: [facility] [address] [facility] [address] WBC 15.93 H 4.0-11.0 RBC 3.60 L 4.6-6.2 HGB 11.2 L 13.5-17.9 HCT 35.3 L 41-54 MCV 98.1 80-100 MCH 31.1 27-33 MCHC 31.7 L 32.0-37.5 PLT 231 150-400 MPV 11.2 H 7.4-10.4 RDW 15.2 H 11.5-14.5 May 11, 2022 07:05 AM [facility] BNP Specim en Type: PLASMA No comment enter ed. Ordering Provid er: CODIE LEON Report Released Date/Time: May 11, 2022 09:15 AM Reporting Lab: [facility] [address] Performing Lab: [facility] [address] BNP 59 <99 May 11, 2022 07:05 [facility] BASIC METABOLIC Specimen Type: PLASMA AM PANEL+MG No comment enter ed. Ordering Provid er: OG DIAL Report Released Date/Time: May 11, 2022 04:46 AM Reporting Lab: [facility] [address] Performing Lab: [facility] [address] CREATININE 1.6 H 0.7-1.2 UREA NITROGEN 28 H 8-26 GLUCOSE 396 H 70-100 SODIUM 150 H 136-145 POTASSIUM 3.7 3.5-5.1 CHLORIDE 120 H 98-107 CO2 23 22-29 CALCIUM 8.4 8.4-10.2 MAGNESIUM 2.1 1.6-2.6 ANION GAP 7 5-15 CREAT EGFR(CKD-EPI) 42 L >60 May 11, 2022 07:05 [facility] LIVER FUNCTION TESTS Spec imen Type: PLASMA AM No comment enter ed. Ordering Provid er: CODIE LEON Report Released Date/Time: May 11, 2022 09:08 AM Reporting [facility] [address] Performing Lab: [facility] [address] BILIRUBIN, TOTAL 1.6 H 0.2-1.2 ALKALINE PHOSPHATASE 102 40-150 ALT/SGPT 42 <55 AST/SGOT 30 <34 GAMMA GTP 52 <64 DIR. BILIRUBIN 1.2 H <0.5 May 11, 2022 06:14 [facility] FINGERSTICK GLUCOSE Speci men Type: BLOOD AM Comment: Mark casillas Nurse Notified Ordering Provid er: CODIE LEON Report Released Date/Time: May 11, 2022 06:42 AM Reporting Lab: [facility] [address] [facility] [address] Performing Lab: [facility] [address] [facility] [address] FINGERSTICK GLUCOSE 345 H 70-100 May 11, 2022 02:24 [facility] FINGERSTICK GLUCOSE Speci men Type: BLOOD AM Comment: Mark casillas Ordering Provid er: CODIE LEON Report Released Date/Time: May 11, 2022 02:44 AM Reporting Lab: [facility] [address] [facility] [address] Performing Lab: [facility] [address] [facility] [address] FINGERSTICK GLUCOSE 375 H 70-100 May 10, 2022 08:38 [facility] FINGERSTICK GLUCOSE Speci men Type: BLOOD PM Comment: Mark casillas Ordering Provid er: CODIE LEON Report Released Date/Time: May 11, 2022 12:31 AM Reporting Lab: [facility] [address] [facility] [address] Performing Lab: [facility] [address] [facility] [address] FINGERSTICK GLUCOSE 346 H 70-100 May 10, 2022 05:05 [facility] FINGERSTICK GLUCOSE Speci men Type: BLOOD PM Comment: Mark casillas Nurse Notified Ordering Provid er: CODIE LEON Report Released Date/Time: May 10, 2022 11:50 PM Reporting Lab: [facility] [address] [facility] [address] Performing Lab: [facility] [address] [facility] [address] FINGERSTICK GLUCOSE 245 H 70-100 May 10, 2022 02:00 [facility] VANCOMYCIN (TROUGH) Speci men Type: PLASMA PM No comment enter ed. Ordering Provid er: CODIE LEON Report Released Date/Time: May 11, 2022 01:34 AM Reporting Lab: [facility] [address] [facility] [address] Performing Lab: [facility] [address] [facility] [address] VANCOMYCIN (TROUGH) 31.8 H 10.0-15.0 May 10, 2022 [facility] BASIC METABOLIC Specimen Typ e: PLASMA 02:00 PM PANEL+MG No comment enter ed. Ordering Provid er: CODIE LEON Report Released Date/Time: May 11, 2022 01:34 AM Reporting Lab: [facility] [address] Performing Lab: [facility] [address] CREATININE 1.1 .7-1.2 UREA NITROGEN 22 8-26 GLUCOSE 279 H 70-100 SODIUM 150 H 136-145 POTASSIUM 3.2 L 3.5-5.1 CHLORIDE 116 H 98-107 CO2 23 22-29 CALCIUM 8.5 8.4-10.2 MAGNESIUM 2.0 1.6-2.6 ANION GAP 11 5-15 CREAT EGFR(CKD-EPI) 65 >60 May 10, 2022 01:20 PM [facility] CBC & DIFF Specim en Type: BLOOD Comment: Automa nola Differential Performed Ordering Provid er: MD ESTEBAN Report Released Date/Time: May 10, 2022 08:52 PM Reporting Lab: [facility] [address] Performing Lab: [facility] [address] WBC 16.24 H 4.0-11.0 RBC 3.76 L [...] 0.28 H 0-0.1 May 10, 2022 11:07 [facility] FINGERSTICK GLUCOSE Speci men Type: BLOOD AM Comment: Save R esult Nurse Notified Ordering Provid er: CODIE LEON Report Released Date/Time: May 11, 2022 12:31 AM Reporting Lab: [facility] [address] [facility] [address] Performing Lab: [facility] [address] [facility] [address] FINGERSTICK GLUCOSE 253 H 70-100 May 10, 2022 06:16 [facility] FINGERSTICK GLUCOSE Speci men Type: BLOOD AM Comment: Mark casillas Nurse Notified Ordering Provid er: CODIE LEON Report Released Date/Time: May 10, 2022 11:50 PM Reporting Lab: [facility] [address] [facility] [address] Performing Lab: [facility] [address] [facility] [address] FINGERSTICK GLUCOSE 271 H 70-100 May 09, 2022 09:07 [facility] FINGERSTICK GLUCOSE Speci men Type: BLOOD PM Comment: Mark casillas Ordering Provid er: CODIE LEON Report Released Date/Time: May 10, 2022 11:50 PM Reporting Lab: [facility] [address] [facility] [address] Performing Lab: [facility] [address] [facility] [address] FINGERSTICK GLUCOSE 209 H 70-100 May 09, 2022 05:33 [facility] FINGERSTICK GLUCOSE Speci men Type: BLOOD PM Comment: Mark casillas Nurse Notified Ordering Provid er: CODIE LEON Report Released Date/Time: May 09, 2022 05:53 PM Reporting Lab: [facility] [address] [facility] [address] Performing Lab: [facility] [address] [facility] [address] FINGERSTICK GLUCOSE 251 H 70-100 May 09, 2022 02:09 [facility] VANCOMYCIN (PEAK) Specime n Type: SERUM PM No comment enter ed. Ordering Provid er: AMARIS DE JESUS Report Released Date/Time: May 09, 2022 09:33 AM Reporting Lab: [facility] [address] [facility] [address] Performing Lab: [facility] [address] [facility] [address] VANCOMYCIN (PEAK) 24.2 20.0-40.0 May 09, 2022 11:19 [facility] FINGERSTICK GLUCOSE Speci men Type: BLOOD AM Comment: Mark casillas Nurse Notified Ordering Provid er: CODIE LEON Report Released Date/Time: May 09, 2022 11:38 AM Reporting Lab: [facility] [address] [facility] [address] Performing Lab: [facility] [address] [facility] [address] FINGERSTICK GLUCOSE 240 H 70-100 May 09, 2022 08:13 [facility] VANCOMYCIN (TROUGH) Speci men Type: SERUM AM No comment enter ed. Ordering Provid er: AMARIS DE JESUS Report Released Date/Time: May 08, 2022 11:14 AM Reporting Lab: [facility] [address] [facility] [address] Performing Lab: [facility] [address] VANCOMYCIN (TROUGH) 16.1 H 10.0-15.0 May 09, 2022 05:33 AM [facility] CBC & DIFF Specim en Type: BLOOD Comment: Automa nola Differential Performed Ordering Provid er: CODIE LEON Report Released Date/Time: May 08, 2022 05:27 PM Reporting Lab: [facility] [address] [facility] [address] Performing Lab: [facility] [address] [facility] [address] WBC 14.92 H 4.0-11.0 RBC 3.41 L [...] GRAN 0.16 H 0-0.1 May 09, 2022 [facility] COMPREHENSIVE METABOLIC Spec imen Type: PLASMA 05:32 AM PANEL+MG No comment enter ed. Ordering Provid er: CODIE LEON Report Released Date/Time: May 08, 2022 05:27 PM Reporting Lab: [facility] [address] [address] Performing Lab: [facility] [address] [address] CREATININE 1.2 0.7-1.2 UREA NITROGEN 25 8-26 [...] 59 L >60 May 09, 2022 05:16 [facility] FINGERSTICK GLUCOSE Speci men Type: BLOOD AM Comment: Mark casillas Nurse Notified Ordering Provid er: CODIE LEON Report Released Date/Time: May 09, 2022 07:27 AM Reporting Lab: [facility] [facility] [address] Performing Lab: [facility] [address] FINGERSTICK GLUCOSE 295 H 70-100 May 08, 2022 09:32 PM [facility] EXTRA MINT TUBE Specim en Type: PLASMA No comment enter ed. Ordering Provid er: MD ESTEBAN Report Released Date/Time: May 08, 2022 09:32 PM Reporting Lab: [facility] [address] [facility] [address] Performing Lab: [facility] [address] [facility] [address] EXTRA MINT TUBE RECEIVED May 08, 2022 09:32 PM [facility] EXTRA PURPLE TUBE Spec imen Type: BLOOD No comment enter ed. Ordering Provid er: MD ESTEBAN Report Released Date/Time: May 08, 2022 09:32 PM Reporting Lab: [facility] [address] [facility] [address] Performing Lab: [facility] [address] [facility] [address] EXTRA PURPLE TUBE RECEIVED May 08, 2022 09:32 [facility] EXTRA GOLD GEL TUBE Speci men Type: SERUM PM No comment enter ed. Ordering Provid er: MD ESTEBAN Report Released Date/Time: May 08, 2022 09:32 PM Reporting Lab: [facility] [address] [facility] [address] Performing Lab: [facility] [address] [facility] [address] EXTRA GOLD GEL TUBE RECEIVED May 08, 2022 09:32 PM [facility] EXTRA BLUE TUBE Specim en Type: PLASMA No comment enter ed. Ordering Provid er: MD ESTEBAN Report Released Date/Time: May 08, 2022 09:32 PM Reporting Lab: [facility] [address] [facility] [address] Performing Lab: [facility] [address] [facility] [address] EXTRA BLUE TUBE RECEIVED May 08, 2022 09:32 PM [facility] EXTRA BRASWELL TUBE Specim en Type: PLASMA No comment enter ed. Ordering Provid er: MD ESTEBAN Report Released Date/Time: May 08, 2022 09:37 PM Reporting Lab: [facility] [address] [facility] [address] Performing Lab: [facility] [address] [facility] [address] EXTRA BRASWELL TUBE RECEIVED May 08, 2022 09:32 PM [facility] LACTIC ACID Specim en Type: PLASMA No comment enter ed. Ordering Provid er: OG DIAL Report Released Date/Time: May 08, 2022 09:49 PM Reporting Lab: [facility] [address] [facility] [address] Performing Lab: [facility] [address] [facility] [address] LACTIC ACID 2.5 H 0.5-2.2 May 08, 2022 09:32 PM [facility] BNP Specim en Type: PLASMA No comment enter ed. Ordering Provid er: OG DIAL Report Released Date/Time: May 08, 2022 09:50 PM Reporting Lab: [facility] [address] [facility] [address] Performing Lab: [facility] [address] [facility] [address] BNP 897 H <99 May 08, 2022 09:32 PM [facility] CBC Specim en Type: BLOOD No comment enter ed. Ordering Provid er: OG DIAL Report Released Date/Time: May 08, 2022 09:50 PM Reporting Lab: [facility] [address] Performing Lab: [facility] [address] WBC 18.54 H 4.0-11.0 RBC 3.68 L 4.6-6.2 HGB 11.5 L 13.5-17.9 HCT 35.1 L 41-54 MCV 95.4 80-100 MCH 31.3 27-33 MCHC 32.8 32.0-37.5 PLT 221 150-400 MPV 11.1 H 7.4-10.4 RDW 14.9 H 11.5-14.5 May 08, 2022 09:32 PM [facility] BLOOD GASES Specim en Type: VENOUS BLOOD Comment: O2 THE RAPY = 3L PM Ordering Provid er: OG DIAL Report Released Date/Time: May 08, 2022 09:50 PM Reporting Lab: [facility] [address] Performing Lab: [facility] [address] PH 7.36 7.33-7.43 PCO2 47 41-51 BICARBONATE 24.4 21.0-30.0 PO2 31 L 35-40 OXYGEN SATURATION 54.7 L 70.0-75.0 PH(TEMP CORRECTED) 7.37 7.33-7.43 PCO2(TEMP CORRECTED) 46 41-51 PO2(TEMP CORRECTED) 31 L 35-40 PATIENT TEMPERATURE 36.7 May 08, 2022 [facility] COMPREHENSIVE METABOLIC Spec imen Type: PLASMA 09:32 PM PANEL+MG No comment enter ed. Ordering Provid er: OG DIAL Report Released Date/Time: May 08, 2022 09:50 PM Reporting Lab: [facility] [address] Performing Lab: [facility] [address] CREATININE 1.3 H 0.7-1.2 UREA NITROGEN 26 [...] 54 L >60 May 08, 2022 08:27 [facility] FINGERSTICK GLUCOSE Speci men Type: BLOOD PM Comment: Mark casillas Nurse Notified Ordering Provid er: CODIE LEON Report Released Date/Time: May 08, 2022 08:55 PM Reporting Lab: [facility] [address] [facility] [address] Performing Lab: [facility] [address] [facility] [address] FINGERSTICK GLUCOSE 272 H 70-100 May 08, 2022 06:56 [facility] FINGERSTICK GLUCOSE Speci men Type: BLOOD PM Comment: Mark casillas Ordering Provid er: CODIE LEON Report Released Date/Time: May 08, 2022 07:08 PM Reporting Lab: [facility] [address] [facility] [address] Performing Lab: [facility] [address] [facility] [address] FINGERSTICK GLUCOSE 262 H 70-100 May 08, 2022 04:50 [facility] FINGERSTICK GLUCOSE Speci men Type: BLOOD PM Comment: Nurse Notified Ordering Provid er: CODIE LEON Report Released Date/Time: May 08, 2022 05:14 PM Reporting Lab: [facility] [address] [facility] [address] Performing Lab: [facility] [address] [facility] [address] FINGERSTICK GLUCOSE 330 H 70-100 May 08, 2022 11:21 [facility] FINGERSTICK GLUCOSE Speci men Type: BLOOD AM Comment: Mark casillas Nurse Notified Ordering Provid er: CODIE LEON Report Released Date/Time: May 08, 2022 11:51 AM Reporting Lab: [facility] [address] [facility] [address] Performing Lab: [facility] [address] [facility] [address] FINGERSTICK GLUCOSE 231 H 70-100 May 08, 2022 07:25 AM [facility] CBC & DIFF Specim en Type: BLOOD Comment: Automa nola Differential Performed Ordering Provid er: BETO AYALA Report Released Date/Time: May 07, 2022 12:28 PM Reporting Lab: [facility] [address] [facility] [address] Performing Lab: [facility] [address] WBC 16.29 H 4.0-11.0 RBC 3.38 L [...] GRAN 0.26 H 0-0.1 May 08, 2022 [facility] PROTHROMBIN TIME/INR Specime n Type: PLASMA 07:25 AM No comment enter ed. Ordering Provid er: BETO AYALA Report Released Date/Time: May 07, 2022 12:28 PM Reporting Lab: [facility] [address] [facility] [address] Performing Lab: [facility] [address] .INR 1.2 H 0.8-1.1 .PT 14.2 H 9.4-12.5 May 08, 2022 [facility] COMPREHENSIVE METABOLIC Spec imen Type: PLASMA 07:25 AM PANEL+MG No comment enter ed. Ordering Provid er: BETO AYALA Report Released Date/Time: May 07, 2022 12:28 PM Reporting Lab: [facility] [address] [facility] [address] Performing Lab: [facility] [address] CREATININE 1.1 0.7-1.2 UREA NITROGEN 27 H [...] EGFR(CKD-EPI) 65 >60 May 08, 2022 06:53 [facility] FINGERSTICK GLUCOSE Speci men Type: BLOOD AM Comment: Mark casillas Ordering Provid er: CODIE LEON Report Released Date/Time: May 08, 2022 07:18 AM Reporting Lab: [facility] [address] [facility] [address] Performing Lab: [facility] [address] FINGERSTICK GLUCOSE 276 H 70-100 May 07, 2022 08:36 [facility] FINGERSTICK GLUCOSE Speci men Type: BLOOD PM Comment: Nurse Notified Ordering Provid er: CODIE LEON Report Released Date/Time: May 08, 2022 12:29 AM Reporting Lab: [facility] [address] [facility] [address] Performing Lab: [facility] [address] [facility] [address] FINGERSTICK GLUCOSE 282 H 70-100 May 07, 2022 07:04 PM [facility] LACTIC ACID Specim en Type: PLASMA No comment enter ed. Ordering Provid er: BETO AYALA Report Released Date/Time: May 07, 2022 06:28 PM Reporting Lab: [facility] [address] [facility] [address] Performing Lab: [facility] [address] [facility] [address] LACTIC ACID 2.0 0.5-2.2 May 07, 2022 04:46 [facility] FINGERSTICK GLUCOSE Speci men Type: BLOOD PM Comment: Nurse Notified Ordering Provid er: BETO AYALA Report Released Date/Time: May 07, 2022 05:00 PM Reporting Lab: [facility] [address] [place] [facility] [address] Performing Lab: [facility] [address] [place] [facility] [address] FINGERSTICK GLUCOSE 274 H 70-100 May 07, 2022 12:47 [facility] F[place]ER[place] GLUCOSE Speci men Type: BLOOD PM Comment: Mark casillas Nurse Notified Ordering Provid er: BETO AYALA Report Released Date/Time: May 07, 2022 05:32 PM Reporting Lab: [facility] [address] [place] [facility] [address] Performing Lab: [facility] [address] [place] [facility] [address] FINGERSTICK GLUCOSE 309 H 70-100 May 07, 2022 06:35 [facility] [place] GLUCOSE Speci men Type: BLOOD AM Comment: Mark casillas Nurse Notified Ordering Provid er: GAYLA DOMINGUEZ Report Released Date/Time: May 07, 2022 06:46 AM Reporting Lab: [facility] [address] [facility] [address] Performing Lab: [facility] [address] [facility] [address] FINGERSTICK GLUCOSE 352 H 70-100 May 07, 2022 06:15 AM [facility] ALBUMIN Specim en Type: PLASMA No comment enter ed. Ordering Provid er: GAYLA DOMINGUEZ Report Released Date/Time: May 06, 2022 06:33 PM Reporting Lab: [facility] [address] Performing Lab: [facility] [address] ALBUMIN 3.0 L 3.5-5.2 May 07, 2022 [facility] COMPREHENSIVE METABOLIC Spec imen Type: PLASMA 06:15 AM PANEL+MG No comment enter ed. Ordering Provid er: GAYLA DOMINGUEZ Report Released Date/Time: May 06, 2022 09:11 PM Reporting Lab: [facility] [address] Performing Lab: [facility] [address] CREATININE 1.2 0.7-1.2 UREA NITROGEN 25 8-26 [...] L >60 May 07, 2022 06:15 AM [facility] CBC & DIFF Specim en Type: BLOOD Comment: Manual Differential Performed Ordering Provid er: GAYLA DOMINGUEZ Report Released Date/Time: May 06, 2022 09:11 PM Reporting Lab: [facility] [address] Performing Lab: [facility] [address] WBC 20.25 H 4.0-11.0 RBC 3.54 L [...] NORMOCYTIC, NORMOCHROMIC May 07, 2022 12:19 AM [facility] LACTIC ACID Specim en Type: PLASMA No comment enter ed. Ordering Provid er: GAYLA DOMINUGEZ Report Released Date/Time: May 06, 2022 07:13 PM Reporting Lab: [facility] [address] Performing Lab: [facility] [address] LACTIC ACID 2.7 H 0.5-2.2 May 06, 2022 10:45 [facility] FINGERSTICK GLUCOSE Speci men Type: BLOOD PM Comment: Save R esult Nurse Notified Ordering Provid er: GAYLA DOMINGUEZ Report Released Date/Time: May 07, 2022 12:08 AM Reporting Lab: [facility] [address] [facility] [address] Performing Lab: [facility] [address] [facility] [address] FINGERSTICK GLUCOSE 320 H 70-100 May 06, 2022 06:53 [facility] MRSA SURVL NARES Specimen Type: NARES PM DNA No comment enter ed. Ordering Provid er: GAYLA DOMINGUEZ Report Released Date/Time: May 06, 2022 06:33 PM Reporting Lab: [facility] [address] [facility] [address] Performing Lab: [facility] [address] [facility] [address] MRSA SURVL NARES DNA POSITIVE HH Negative May 06, 2022 06:51 [facility] CARDIAC TROPONIN I Specim en Type: PLASMA PM No comment enter ed. Ordering Provid er: GAYLA ODMINGUEZ Report Released Date/Time: May 06, 2022 06:05 PM Reporting Lab: [facility] [address] [facility] [address] Performing Lab: [facility] [address] [facility] [address] CARDIAC TROPONIN I <0.028 <0.028 May 06, 2022 06:51 PM [facility] LACTIC ACID Specim en Type: PLASMA No comment enter ed. Ordering Provid er: GAYLA DOMINGUEZ Report Released Date/Time: May 06, 2022 06:04 PM Reporting Lab: [facility] [address] [facility] [address] Performing Lab: [facility] [address] [facility] [address] LACTIC ACID 3.1 H 0.5-2.2 May 06, 2022 06:51 [facility] EXTRA GOLD GEL TUBE Speci men Type: SERUM PM No comment enter ed. Ordering Provid er: GAYLA DOMINGUEZ Report Released Date/Time: May 06, 2022 06:52 PM Reporting Lab: [facility] [address] [facility] [address] Performing Lab: [facility] [address] [facility] [address] EXTRA GOLD GEL TUBE RECEIVED May 06, 2022 06:51 [facility] C-REACTIVE PROTEIN Specim en Type: PLASMA PM No comment enter ed. Ordering Provid er: GAYLA DOMINGUEZ Report Released Date/Time: May 06, 2022 09:29 PM Reporting Lab: [facility] [address] Performing Lab: [facility] [address] C-REACTIVE PROTEIN 392.40 H <5.00 May 06, 2022 10:51 AM [facility] URINALYSIS Specim en Type: URINE No comment enter ed. Ordering Provid er: MODESTA VILLANUEVA Report Released Date/Time: May 06, 2022 10:11 AM Reporting Lab: [facility] [address] Performing Lab: [facility] [address] URINE COLOR YELLOW SPECIFIC GRAVITY 1.020 1.003-1.035 [...] ESTERASE 500 NEGATIVE May 06, 2022 10:24 [facility] COVID-19 DIAGNOSTIC Speci men Type: NASOPHARYNGEAL AM PANEL (CEPHEID) Comment: Cephei jessica GeneXpert (618) Ordering Provid er: MODESTA VILLANUEVA Report Released Date/Time: May 06, 2022 10:11 AM Reporting Lab: [facility] [address] Performing Lab: [facility] [address] COVID-19 (CEPHEID) Not Detected Not Dete cted May 06, 2022 10:20 AM [facility] POC ABG/LACTATE Specim en Type: VENOUS BLOOD No comment enter ed. Ordering Provid er: MODESTA VILLANUEVA Report Released Date/Time: May 06, 2022 10:22 AM Reporting Lab: [facility] [address] Performing Lab: [facility] [address] POC PH 7.410 7.31-7.41 POC PCO2 28.9 L 35.00-45.00 POC PO2 82 H 35.0-40.0 POC TCO2 19 L 24.0-29.0 POC HCO3 18.3 L 23.0-28.0 POC BE ECT -6 L -2 POC SO2 96 H 70-75 POC LACTATE 3.62 0.90-1.70 May 06, 2022 10:00 AM [facility] PHOSPHORUS Specim en Type: PLASMA No comment enter ed. Ordering Provid er: MODESTA VILLANUEVA Report Released Date/Time: May 06, 2022 10:11 AM Reporting Lab: [facility] [address] Performing Lab: [facility] [address] PHOSPHORUS 2.5 2.3-4.7 May 06, 2022 10:00 [facility] PROTHROMBIN TIME/INR Spec imen Type: PLASMA AM No comment enter ed. Ordering Provid er: MODESTA VILLANUEVA Report Released Date/Time: May 06, 2022 10:11 AM Reporting Lab: [facility] [address] Performing Lab: [facility] [address] .INR 2.5 H 0.8-1.1 .PT 29.2 H 9.4-12.5 May 06, 2022 10:00 [facility] CARDIAC TROPONIN I Specim en Type: PLASMA AM Comment: Critic al Value Reported To: BROOKS COTE 05-06-2022 @1053 BY MBB. Critical value report confirmed. Ordering Provid er: MODESTA VILLANUEVA Report Released Date/Time: May 06, 2022 10:11 AM Reporting Lab: [facility] [address] Performing Lab: [facility] [address] CARDIAC TROPONIN I 0.035 HH <0.028 May 06, 2022 10:00 AM [facility] PROCALCITONIN Specim en Type: PLASMA No comment enter ed. Ordering Provid er: MODESTA VILLANUEVA Report Released Date/Time: May 06, 2022 10:11 AM Reporting Lab: [facility] [address] [facility] [address] Performing Lab: [facility] [address] PROCALCITONIN 22.29 H <0.09 May 06, 2022 [facility] COMPREHENSIVE METABOLIC Spec imen Type: PLASMA 10:00 AM PANEL+MG Comment: Manual Differential Performed Ordering Provid er: MODESTA VILLANUEVA Report Released Date/Time: May 06, 2022 10:11 AM Reporting Lab: [facility] [address] [facility] [address] Performing Lab: [facility] [address] [facility] [address] CREATININE 1.3 H 0.7-1.2 UREA NITROGEN 25 [...] 54 L >60 May 06, 2022 10:00 [facility] ACT PART THROMBO TIME Spe cimen Type: PLASMA AM No comment enter ed. Ordering Provid er: MODESTA VILLANUEVA Report Released Date/Time: May 06, 2022 10:11 AM Reporting Lab: [facility] [address] [facility] [address] Performing Lab: [facility] [address] [facility] [address] APTT 37.8 H 25.1-36.5 May 06, 2022 10:00 AM [facility] LIPASE Specim en Type: PLASMA No comment enter ed. Ordering Provid er: MODESTA VILLANUEVA Report Released Date/Time: May 06, 2022 10:11 AM Reporting Lab: [facility] [address] [facility] [address] Performing Lab: [facility] [address] [facility] [address] LIPASE <4 <60 May 06, 2022 10:00 [facility] EXTRA GOLD GEL TUBE Speci men Type: SERUM AM No comment enter ed. Ordering Provid er: LINNEA RAND Report Released Date/Time: May 06, 2022 10:25 AM Reporting Lab: [facility] [address] Performing Lab: [facility] [place] [address] EXTRA GOLD GEL TUBE RECEIVED May 06, 2022 10:00 AM [facility] CBC & DIFF Specim en Type: BLOOD Comment: Manual Differential Performed Ordering Provid er: MODESTA VILLANUEVA Report Released Date/Time: May 06, 2022 10:11 AM Reporting Lab: [facility] [address] Performing Lab: [facility] [address] WBC 18.82 H 4.0-11.0 RBC 3.70 L [...] .RBC MORPHOLOGY PRESENT May 06, 2022 09:46 [facility] FINGERSTICK GLUCOSE Speci men Type: BLOOD AM Comment: Mark casillas Nurse Notified Ordering Provid er: MODESTA VILLANUEVA Report Released Date/Time: May 06, 2022 09:59 AM Reporting Lab: [facility] [address] Performing Lab: [facility] [address] FINGERSTICK GLUCOSE 369 H 70-100 Apr 30, 2022 09:17 AM [facility] CBC Specim en Type: BLOOD No comment enter ed. Ordering Provid er: BILL ROONEY Report Released Date/Time: Apr 30, 2022 08:21 AM Reporting Lab: [facility] [address] Performing Lab: [facility] [address] WBC 10.40 4.0-11.0 RBC 3.96 L 4.6-6.2 HGB 12.3 L 13.5-17.9 HCT 37.8 L 41-54 MCV 95.5 80-100 MCH 31.1 27-33 MCHC 32.5 32.0-37.5 PLT 286 150-400 MPV 10.1 7.4-10.4 RDW 14.6 H 11.5-14.5 Apr 30, 2022 [facility] BASIC METABOLIC Specimen Typ e: PLASMA 09:17 AM PANEL+MG No comment enter ed. Ordering Provid er: BILL ROONEY Report Released Date/Time: Apr 30, 2022 08:21 AM Reporting Lab: [facility] [address] Performing Lab: [facility] [address] CREATININE 1.2 0.7-1.2 UREA NITROGEN 26 8-26 GLUCOSE 140 H 70-100 SODIUM 138 136-145 POTASSIUM 3.8 3.5-5.1 CHLORIDE 107 98-107 CO2 20 L 22-29 CALCIUM 9.4 8.4-10.2 MAGNESIUM 1.7 1.6-2.6 ANION GAP 11 5-15 CREAT EGFR(CKD-EPI) 59 L >60 Apr 02, 2022 02:37 PM [facility] B 12 Specim en Type: SERUM No comment enter ed. Ordering Provid er: MADISON SOL Report Released Date/Time: Apr 02, 2022 02:05 PM Reporting Lab: [facility] [address] [facility] [address] Performing Lab: [facility] [address] B 12 [phone] Apr 02, 2022 02:37 PM [facility] AMMONIA Specim en Type: PLASMA No comment enter ed. Ordering Provid er: MADISON SOL O Report Released Date/Time: Apr 02, 2022 02:05 PM Reporting Lab: [facility] [address] Performing Lab: [facility] [address] AMMONIA <14 <72 Apr 02, 2022 [facility] LIVER FUNCTION TESTS Specime n Type: PLASMA 02:37 PM No comment enter ed. Ordering Provid er: MADISON SOL O Report Released Date/Time: Apr 02, 2022 02:05 PM Reporting Lab: [employer] [address] [facility] [address] Performing Lab: [facility] [address] BILIRUBIN, TOTAL 0.5 0.2-1.2 ALKALINE PHOSPHATASE 108 40-150 ALT/SGPT 24 <55 AST/SGOT 18 <34 GAMMA GTP 34 <64 Apr 02, 2022 [facility] METHYLMA ACID, [facility] Specime n Type: SERUM 02:37 PM Comment: This t est was developed and its analytical performance characteristics have been determined by [employer] [place]. It has not been cleared or approved by the U.S . Food and Drug Administration. This assay has been validated pursuant to the CLIA regulations and is used for clinical purposes. Test Performed by [employer] [facility], [address] [place] [address] Domenic Miller M.D., Ph.D., Director of Laboratories , CLIA [id number] Ordering Provid er: MADISON SOL Report Released Date/Time: Apr 02, 2022 04:37 PM Reporting Lab: [facility] [address] Performing Lab: [address] METHYLMA ACID, [place] 406 H 14-609 Social History: Smoking Status (Most current) and [...] 09:30 AM VA-TOBACCO NEVER USED [place] [facility] Tobacco Use History This section includes a history of the smoking, or tobacco- related health factors, that were collected on or before the date of the Encounter. The data comes from the [place] facility where the Encounter took place. Date/Time Smoking Status/Tobacco Use Comment [facility] Mar 22, 2021 07:45 AM VA-TOBACCO NEVER USED [place] [facility] Oct 02, 2019 10:02 AM VA-TOBACCO NEVER USED [place] [facility] May 21, 2018 09:05 AM VA-TOBACCO NEVER USED [facility] December 25, 2017 06:14 PM INPT NO TOBACCO USE IN LAST 30 DAYS [facility] Oct 01, 2017 07:34 AM LIFETIME NON-TOBACCO USER [facility] Sep 28, 2016 08:44 AM LIFETIME NON-TOBACCO USER [facility] Oct 14, 2015 07:52 AM LIFETIME NON-TOBACCO USER [facility] Oct 11, 2014 07:59 AM LIFETIME NON-TOBACCO USER [facility] January 15, 2007 07:55 AM LIFETIME NON-TOBACCO USER [facility] Advance Directives: All historical and current Section Date Range: From patient's date of to the date document was created. This section includes ALL of a patient's completed or amended [place] Advance and Rescinded Directives. The entries below indicate that a directive exists for the patient, but an actual copy is not included with this document. The data comes from all [facility]. Date Advance Directives Provider Source Apr 18, 2018 ADVANCE DIRECTIVE LARISSA SIGALA [facility] Apr 18, 2018 ADVANCE DIRECTIVE DISCUSSION LARISSA SIGALA [facility] December 23, 2017 CLINICAL WARNING FARHAT SCHMID [facility] May 11, 2003 ADVANCE DIRECTIVE BERT CASILLAS [facility] Radiology Reports: +/- 30 days [...] 2022 09:46 CHEST 1 VIEW: SONJA OVALLES [facility] AM LUISANA EDDY [id number] -1935 M Exm Date: MAY 11, 2022@09:46 Req Phys: CODIE LEON Loc: OP Unknown /05-13-2022@05:05 Img Loc: MAIN X-RAY Service: PRIMARY CARE - MED OFFICE (Case [id number] COMPLETE) CHEST 1 VIEW (RAD Detailed) CPT:39853 Proc Modifiers : PORTABLE EXAM Reason for [...] 11, 2022 Date Verified: MAY 11, 2022 Assistant Project Manager E-Sig:/ES/SONJA OVALLES MD Report: CHEST 1 VIEW [...] lungs are clear. Primary Interpreting Staff: SONJA OVLALES MD, RADIOLOGIST (Assistant Project Manager) /CDC May 10, 2022 03:49 CT HEAD (P): RADIOLOGY,OUTSIDE [facility] PM LUISANA EDDY [id number] -1935 M SERVICE Exm Date: MAY 10, 2022@15:49 Req Phys: CODIE LEON Loc: OP Unknown /05-13-2022@05:05 Img Loc: CT IMAGING Service: PRIMARY CARE - MED OFFICE (Case [id number] COMPLETE) CT HEAD/BRAIN W/O CONTRAST (CT Detailed) CPT:49616 Reason for Study: CHANGE IN MENTAL STATUS Clinical History: CHANGE IN MENTAL STATUS. ORDER ADMINISTRATIVELY ENTERED FOLLOWING SYSTEM OUTAGE. Report Status: Verified Date Reported: MAY 10, 2022 Date Verified: MAY 10, 2022 Assistant Project Manager E-Sig: Report: CT HEAD/BRAIN W/O CONTRAST [PRINTSET] [...] prior study. READING PHYSICIAN: Akash Mccoy M.D. -[phone] 05/10/2022 17:35 PDT [facility] National Teleradiology Program [phone] (For Medical Practitioner Use Only ) Attention Patients / Veterans: If you have ques tions or concerns about these test results, please contact your o rdering provider or primary care team. Primary Interpreting Staff: RADIOLOGY,OUTSIDE SERVICE, Staff Physician / May 08, 2022 07:45 CT T-SPINE (P): RADIOLOGY,OUTSIDE [facility] PM LUISANA EDDY [id number] -1935 M SERVICE Exm Date: MAY 08, 2022@19:45 Req Phys: CODIE LEON Loc: OP Unknown /05-13-2022@05:05 [facility] Loc: CT IMAGING Service: PRIMARY CARE - MED OFFICE (Case [id number] COMPLETE) CT SPINE THORACIC W/O CONTR AST (CT Detailed) CPT:21396 Reason for Study: mrsa bacteremia, spinal surge ry - r/o abscess or discitis Clinical History: IS NOT under investigation for COVID-19 or is COVID-19 negative Defer to radiologist for final CT protocol. Responsible provider name and phone number to n otify for critical findings if other than user placing the order a nd pager listed below: User placing orders pager: [phone] LAST 3: Collection DT Specimen Test Name [...] GFR (eGF 44 L Ref: >=60 Allergies: ([place] only) SIMVASTATIN (Feb 29, 2004) CEPHALEXIN (Mar 01, 2004) Report Status: Verified Date Reported: MAY 08, 2022 Date Verified: MAY 08, 2022 Assistant Project Manager E-Sig: Report: CT SPINE THORACIC W/O CONTRAST [PRINTSET] HISTORY:MRSA bacteremia NUMBER OF IMAGES:[id number] COMPARISON: Correlation with images from recent CT abdomen and pelvis May 06, 2022 TECHNIQUE: A non contrast CT of the thoracic sp ine was performed at the local [place]. Images were subsequently sent to [facility] for interpretation. Axial, coronal and sagittal reformats [...] thoracic level. READING PHYSICIAN: Luisana Webb MD -[id number] 05/08/2022 19:20 PDT [facility] National Teleradiology Program [phone] (For Medical Practitioner Use Only ) Attention Patients / Veterans: If you have ques tions or concerns about these test results, please contact your [facility] provider or primary care team. Primary Interpreting Staff: RADIOLOGY,OUTSIDE SERVICE, Staff Physician / May 08, 2022 04:48 CHEST 1 VIEW: RADIOLOGY,OUTSIDE [facility] PM LUISANA EDDY [id number] -1935 M SERVICE Exm Date: MAY 08, 2022@16:48 Req Phys: CODIE LEON Pat Loc: OP Unknown /05-13-2022@05:05 Img Loc: MAIN X-RAY Service: PRIMARY CARE - MED OFFICE (Case [id number] COMPLETE) CHEST 1 VIEW (RAD Detailed) CPT:61179 Proc Modifiers : PORTABLE EXAM Reason for Study: dyspnea Clinical History: [place] IS NOT under investigation for COVID-19 or is COVID-19 negative acute worsening of dyspnea Responsible provider name and phone number to notify for critical findings if other than user placing the order and pager listed below: User placing orders pager: [phone] malini cell [phone] LAST CREATININE 1.1 (05/08/22) Report Status: Verified Date Reported: MAY 08, 2022 Date Verified: MAY 08, 2022 Assistant Project Manager E-Sig: Report: CHEST 1 VIEW HISTORY: dyspnea COMPARISON: 05/06/2022 TECHNIQUE: Frontal view(s) of the chest, submit nola to the [place] National Teleradiology Program (NTP) for interp retation. FINDINGS: Reduced lung volumes. Progressive cardiomegaly, and vascular congestion as well as diffuse interstitial prom inence with probable small effusions. Impression: Expiratory exam with findings of CHF and mild e santa READING PHYSICIAN: Nghia Menjivar M.D. -[id number] 10 05/08/2022 18:57 EDT [facility] National Teleradiology Program [phone] (For Medical Practitioner Use Only ) Attention Patients / Veterans: If you have ques tions or concerns about these test results, please contact your o [facility] provider or primary care team. Primary Interpreting Staff: RADIOLOGY,OUTSIDE SERVICE, Staff Physician / May 07, 2022 10:29 CT HEAD (P): SHANI POLANCO [facility] AM LUISANA EDDY [id number] -1935 M Exm Date: MAY 07, 2022@10:29 Req Phys: BETO AYALA Loc: OP Unknown/0 05-13-2022@05:05 Img Loc: CT IMAGING Service: PRIMARY CARE - MED OFFICE (Case [id number] COMPLETE) CT HEAD/BRAIN W/O CONTRAST ( CT Detailed) CPT:22220 Reason for Study: seizure noted at [facility] Clinical History: [place] IS NOT under investigation for COVID-19 or is COVID-19 negative Defer to radiologist for final CT protocol. Responsible provider name and phone number to n otify for critical findings if other than user placing the order a nd pager listed below: User placing orders pager: [phone] LAST 3: Collection DT Specimen Test Name [...] GFR (eGF 44 L Ref: >=60 Allergies: ([place] only) SIMVASTATIN (Feb 29, 2004) CEPHALEXIN (Mar 01, 2004) Report Status: Verified Date Reported: MAY 07, 2022 Date Verified: MAY 07, 2022 Assistant Project Manager E-Sig:/ES/SHANI POLANCO MD Report: EXAM: CT HEAD/BRAIN W/O CONTRAST HISTORY: seizure noted at [facility] Reason for Study: seizure noted at [facility] IS NOT under investigation for COVID-19 or is COVID-19 negative Defer to radiologist for final CT prot ocol. Responsible provider name and phone number to notify for cr itical findings if other than user placing the order and pager heidi vaca below: User placing orders pager: [phone] LAST 3: Collecti on DT Specimen Test [...] Primary Interpreting Staff: SHANI POLANCO MD, RADIOLOGIST (Assistant Project Manager) /Javed May 06, 2022 11:40 CHEST 1 VIEW: RADIOLOGY,OUTSIDE [facility] AM LUISANA EDDY [id number] -1935 M SERVICE Exm Date: MAY 06, 2022@11:40 Req Phys: MODESTA VILLANUEVA Loc: [facility] EMERGENCY DEPT WALK-IN (Re Img Loc: MAIN X-RAY Service: Unknown (Case 73 COMPLETE) CHEST 1 VIEW (RAD Detailed) C PT:98040 Proc Modifiers : PORTABLE EXAM Reason for Study: fever, back pain Clinical History: Reason for Exam: Severe Sepsis Pathway to Evalu ate Volume Status and Source of Sepsis [place] IS under investigation (PUI) for COVID- 19 or is COVID-19+ 86 yo M with fever, back pain Responsible provi violeta name and phone number to notify for critical findings if other than user placing the order and pager listed below: User placing orders pager: [phone] LAST CREATININE 1.2 (04/30/22) Report Status: Verified Date Reported: MAY 06, 2022 Date Verified: MAY 06, 2022 Assistant Project Manager E-Sig: Report: Technique: Frontal chest. No comparison Impression: Cardiac silhouette is mildly enlarged. There is mild pulmonary venous congestion. No definite pleural effusion . No pneumothorax seen. READING PHYSICIAN: Vern Donnelly M.D. -[id number] 07 05/06/2022 13:26 EDT [facility] National Teleradiology Program [phone] (For Medical Practitioner Use Only ) Attention Patients / Veterans: If you have ques tions or concerns about these test results, please contact your o rdering provider or primary care team. Primary Interpreting Staff: RADIOLOGY,OUTSIDE SERVICE, Staff Physician / May 06, 2022 10:36 CT (AP) ABDOMEN/PELVIS (P): RADIOLOGY,OUTSIDE [facility] LUISANA EDDY [id number] -1935 M SERVICE Exm Date: MAY 06, 2022@10:36 Req Phys: MODESTA VILLANUEVA Loc: [facility] EMERGENCY DEPT WALK-IN (Re Img Loc: CT IMAGING Service: Unknown (Case [id number] COMPLETE) CT (AP) ABDOMEN/PELVIS W CONT RAST(CT Detailed) CPT:52754 Reason for Study: fever, back pain Clinical [...] pager listed below: User placing orders pager: [phone] LAST 3: Collection DT Specimen Test Name [...] ESTIMATED GFR(eGF 44 L Ref: >=60 Allergies: ([place] only) SIMVASTATIN (Feb 29, 2004) CEPHALEXIN (Mar 01, 2004) To see allergies from all [facility] locations click Re ports tab>Remote Data>All Available Sites>Clinical Reports>Aller gies. Report Status: Verified Date Reported: MAY 06, 2022 Date Verified: MAY 06, 2022 Assistant Project Manager E-Sig: Report: Exam: CT (AP) ABDOMEN/PELVIS W [...] findings, above. READING PHYSICIAN: Eduin Donaldson M.D. -[phone] 05/06/2022 12:48 [facility] National Teleradiology Program [phone] (For Medical Practitioner Use Only ) Attention Patients / Veterans: If you have ques tions or concerns about these test results, please contact your o rdering provider or primary care team. Primary Interpreting Staff: RADIOLOGY,OUTSIDE SERVICE, Staff Physician / May 06, 2022 10:35 CT CERVICAL SPINE W/O CONTRAST: RADIOLOGY,OUT SIDE [facility] LUISANA EDDY [id number] -[phone] M SERVICE Exm Date: MAY 06, 2022@10:35 Req Phys: MODESTA VILLANUEVA Loc: [facility] EMERGENCY DEPT WALK-IN (Re Img Loc: CT IMAGING Service: Unknown (Case 65 COMPLETE) CT CERVICAL SPINE W/O CONTRAS T (CT Detailed) CPT:13465 Reason for Study: falls, blood thinner, AMS, se izure Clinical History: falls, blood thinner, AMS, seizure [place] IS under investigation (PUI) for COVID- 19 or is COVID-19+ Defer to radiologist for final CT protocol. Responsible provider name and phone number to n otify for critical findings if other than user placing the order a nd pager listed below: User placing orders pager: [phone] LAST 3: Collection DT Specimen Test Name [...] ESTIMATED GFR(eGF 44 L Ref: >=60 Allergies: ([place] only) SIMVASTATIN (Feb 29, 2004) CEPHALEXIN (Mar 01, 2004) To see allergies from all [place] locations click Re ports tab>Remote Data>All Available Sites>Clinical Reports>Aller gies. Report Status: Verified Date Reported: MAY 06, 2022 Date Verified: MAY 06, 2022 Assistant Project Manager E-Sig: Report: CT CERVICAL SPINE W/O CONTRAST HISTORY:falls, blood thinner, AMS, seizure NUMBER OF IMAGES:770 COMPARISON: None available. TECHNIQUE: A non contrast CT of the cervical sp ine was performed at the local [place]. Images were subsequently sent to [facility] for interpretation. Axial, coronal and sagittal reformats [...] findings, above. READING PHYSICIAN: Eduin Donaldson M.D. -[phone] 05/06/2022 12:33 [facility] National Teleradiology Program [phone] (For Medical Practitioner Use Only ) Attention Patients / Veterans: If you have ques tions or concerns about these test results, please contact your [facility] provider or primary care team. Primary Interpreting Staff: RADIOLOGY,OUTSIDE SERVICE, Staff Physician / May 06, 2022 10:35 CT HEAD/BRAIN W/O CONTRAST: RADIOLOGY,OUTSIDE [facility] AM LUISANA EDDY [id number] [facility]1935 M SERVICE Exm Date: MAY 06, 2022@10:35 Req Phys: MODESTA VILLANUEVA Loc: [facility] EMERGENCY DEPT WALK-IN (Re Im Loc: CT IMAGING Service: Unknown (Case 64 COMPLETE) CT HEAD/BRAIN W/O CONTRAST (C T Detailed) CPT:76344 Reason for Study: falls, blood thinner, AMS, se izure Clinical History: falls, blood thinner, AMS, seizure IS under investigation (PUI) for COVID- 19 or is COVID-19+ Defer to radiologist for final CT protocol. Responsible provider name and phone number to n otify for critical findings if other than user placing the order a nd pager listed below: User placing orders pager: [phone] LAST 3: Collection DT Specimen Test Name [...] ESTIMATED GFR(eGF 44 L Ref: >=60 Allergies: ([place] only) SIMVASTATIN (Feb 29, 2004) CEPHALEXIN (Mar 01, 2004) To see allergies from all [place] locations click Re ports tab>Remote Data>All Available Sites>Clinical Reports>Lashon king. Report Status: Verified Date Reported: MAY 06, 2022 Date Verified: MAY 06, 2022 Assistant Project Manager E-Sig: Report: CT HEAD/BRAIN W/O CONTRAST Clinical History: falls, blood thinner, AMS, se izure Number of Images: 532 Comparison: 03/12/2022 Technique: The study was protocoled and supervi sed at the local [place] facility. CT of the head without contrast. I mages were subsequently received by the [place] National Telera diology Program (NTP) for interpretation. [...] T findings. READING PHYSICIAN: Eduin Donaldson M.D. [phone] 05/06/2022 12:30 [facility] National Teleradiology Program [phone] (For Medical Practitioner Use Only ) Attention Patients / Veterans: If you have ques tions or concerns about these test results, please contact your [facility] provider or primary care team. Primary Interpreting [...] 09, 2022 05:30 AM LR MICROBIOLOGY REPORT: [facility] Reporting Lab: [facility] [CLIA# [id number]] [place] [address] Accession [UID]: [id number] [[id number]] Receiv ed: May 09, 2022@01:35 Collection sample: BLOOD Collection date: Apr 05:30 Provider: CODIE LEON Comment on specimen: LEFT ARM, RECEIVED 2 BLOOD CULTURE BOTTLES Test(s) ordered: CULTURE & SUSCEPTIBILITY...... 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 R TRIMETH/SULFA................. S TETRACYCLINE.................. S CLINDAMYCIN................... S RIFAMPIN...................... S VANCOMYCIN.................... S Bacteriology Remark(s): VANCOMYCIN SHAMIKA: <=0.5 ug/mL THIS REPORT IS FINAL =--=--=--=--=--=--=--=--=--=--=--=--=--= --=--=--=--=--=--=--=--=--=--=--=--=-- Performing Laboratory: Bacteriology Report Performed By: [facility] [CLIA# [id number]] [place] [address] May 08, 2022 03:23 PM LR MICROBIOLOGY REPORT: [facility] Reporting Lab: [facility] [CLIA# [id number]] [place] [address] Accession [UID]: [id number] [[id number]] Receiv ed: May 08, 2022@15:41 Collection sample: BLOOD Collection date: Apr 15:23 Provider: CODIE LEON Comment on specimen: LEFT ARM, RECEIVED 2 BLOOD CULTURE BOTTLES Test(s) ordered: CULTURE & SUSCEPTIBILITY...... completed: May 10, 2022 * BACTERIOLOGY FINAL REPORT => May 10, 2022 16:3 1 TECH CODE: [id number] CULTURE RESULTS: GROWTH SAME THAT OF ANOTHER CULTURE Comment: FOR SUSCEPTIBILITY REPORT SEE PREVIOUS POSITIVE SAME MB 22 [id number] ( 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 from Anaerobic bottle ) ( Recovered from Aerobic bottle ) Bacteriology Remark(s): THIS REPORT IS FINAL =--=--=--=--=--=--=--=--=--=--=--=--=--= --=--=--=--=--=--=--=--=--=--=--=--=-- Performing Laboratory: Bacteriology Report Performed By: [facility] [CLIA# [id number]] [place] [address] May 08, 2022 03:21 PM LR MICROBIOLOGY REPORT: [facility] Reporting Lab: [facility] [CLIA# [id number]] [place] [address] Accession [UID]: [id number] [[id number]] Receiv ed: May 08, 2022@15:40 Collection sample: BLOOD Collection date: Apr 15:21 Provider: CODIE LEON Comment on specimen: RT ARM, RECEIVED 2 BLOOD CU LTURE BOTTLES Test(s) ordered: CULTURE & SUSCEPTIBILITY...... completed: May 10, 2022 * BACTERIOLOGY FINAL REPORT => May 10, 2022 16:3 1 TECH CODE: [id number] CULTURE RESULTS: GROWTH SAME THAT OF ANOTHER CULTURE Comment: FOR SUSCEPTIBILITY REPORT SEE PREVIOUS POSITIVE SAME MB 22 [id number] ( 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 from Anaerobic bottle ) ( Recovered from Aerobic bottle ) Bacteriology Remark(s): THIS REPORT IS FINAL =--=--=--=--=--=--=--=--=--=--=--=--=--= --=--=--=--=--=--=--=--=--=--=--=--=-- Performing Laboratory: Bacteriology Report Performed By: [facility] [CLIA# [id number]] [place] [address] May 07, 2022 05:30 AM LR MICROBIOLOGY REPORT: [facility] Reporting Lab: [facility] [CLIA# [id number]] [place] [address] Accession [UID]: [id number] [[id number]] Receiv ed: May 07, 2022@01:35 Collection sample: [...] REPORT SEE PREVIOUS POSITIVE SAME MB 22 [id number] ( 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 from Aerobic bottle ) ( Recovered from Anaerobic bottle ) Bacteriology Remark(s): THIS REPORT IS FINAL =--=--=--=--=--=--=--=--=--=--=--=--=--= --=--=--=--=--=--=--=--=--=--=--=--=-- Performing Laboratory: Bacteriology Report Performed By: [facility] [CLIA# [id number]] [place] [address] May 06, 2022 10:51 AM LR MICROBIOLOGY REPORT: [facility] Reporting Lab: [facility] [CLIA# [id number]] [place] [address] Accession [UID]: [id number] [[id number]] Receiv ed: May 06, 2022@11:32 Collection sample: [...] --=--=--=--=--=--=--=--=--=--=--=--=-- Performing Laboratory: Bacteriology Report Performed By: [facility] [CLIA# [id number]] [place] [address] May 06, 2022 10:34 AM LR MICROBIOLOGY REPORT: [facility] Reporting Lab: [facility] [CLIA# [id number]] [place] [address] Accession [UID]: [id number] [[id number]] Receiv ed: May 06, 2022@10:51 Collection sample: BLOOD Collection date: Apr 10:34 Provider: MODESTA VILLANUEVA Comment on specimen: RECEIVED 2 BLOOD CULTURE [facility] Test(s) ordered: CULTURE & SUSCEPTIBILITY...... 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 R TRIMETH/SULFA................. S TETRACYCLINE.................. S CLINDAMYCIN................... S RIFAMPIN...................... S VANCOMYCIN.................... S Bacteriology Remark(s): VANCOMYCIN SHAMIKA (mcg/ml): <=0.5 <<<< REVISED REPORT >>>> VANCOMYCIN SHAMIKA IN REPORT REMARK PREVIOUSLY REPO RTED INCORRECTLY >=4 mcg/mL. RESULT WAS CORRECTLY CHANGED TO <=0.5 mcg/mL. Result reported to Codie Leon MD 05/08/22 @0824 -NPR THIS REPORT IS FINAL =--=--=--=--=--=--=--=--=--=--=--=--=--= --=--=--=--=--=--=--=--=--=--=--=--=-- Performing Laboratory: Bacteriology Report Performed By: [facility] [CLIA# [id number]] [place] [address] May 06, 2022 10:00 AM LR MICROBIOLOGY REPORT: [facility] Reporting Lab: [facility] [CLIA# [id number] 147] [place] [address] Accession [UID]: [id number] [[id number]] Receiv ed: May 06, 2022@10:41 Collection sample: [...] REPORT SEE PREVIOUS POSITIVE SAME MB 22 [id number] ( 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 from Anaerobic bottle ) ( Recovered from Aerobic bottle ) Bacteriology Remark(s): THIS REPORT IS FINAL =--=--=--=--=--=--=--=--=--=--=--=--=--= --=--=--=--=--=--=--=--=--=--=--=--=-- Performing Laboratory: Bacteriology Report Performed By: [facility] [CLIA# [id number]] [address] [place] [address] Encounter Notes: All associated encounter notes This section contains the clinical notes associated to the Encounter. Date/Time Encounter Note(s) Provider Source May 01, 2022 11:11 AM NONVA NOTE: VILLA COOLEY IS [facility] LOCAL TITLE: COMMUNITY [facility] SELF PRESENTIN G CARE COORD PLAN STANDARD TITLE: NONVA NOTE DATE OF NOTE: MAY 01, 2022@11:11 ENTRY DATE: MAY 01, 2022@11:11:41 AUTHOR: VILLA COOLEY EXP COSIGNER: URGENCY: STATUS: COMPLETED [facility]UNITY [facility]ARE-[facility] SELF PRESENTING CARE CO ORD PLAN NOTE Has ADDENDA Emergency Notification Intake Date Presenting to the Facility: Apr Method of Contact: Phone Centralized Call Center Notified [facility] Name: Hospital: [facility] Address: City: [place] State: [place] Zip Code: Phone : [facility] Point of Contact: Name:SHAYLA Chief complaint: FELL 48 HRS AGO Primary Diagnosis: Disposition Unknown at time of intake note entry [place] [phone] CALLED UNSURE OF CORRECT YONATHAN GNOSIS. LOOKING FOR MED.SURG BED AT [facility]. /ronni/ VILLA COOLEY Bdr(AOD) Signed: 05/01/2022 11:14 Receipt Acknowledged By: 05/01/2022 11:21 /ronni/ ARACELI CASTRO RN REGISTERED NURSE 05/01/2022 ADDENDUM STATUS: COMPLETED Returned call to [facility] [phone] with message that there are no med/surg beds available for transfer to the [facility] at this time. /ronni/ ARACELI CASTRO RN REGISTERED NURSE Signed: 05/01/2022 11:23 05/01/2022 ADDENDUM STATUS: COMPLETED HOSPITAL NOTIFICATION ID:[id number] /es/ KALYAN COLLAZO MANAGER [place] Signed: 05/01/2022 15:20 05/02/2022 ADDENDUM STATUS: COMPLETED Admitted to: [facility] Admission date: 05/01/22 Chief Complaint/Dx: Concussion, dementia Admit H&P uploaded to [facility] This [facility] RN will follow Michelle bae during this hospitalization. DC summary will be uploaded into the [facility] medical record when a vailable. /es/ ARACELI CATSRO RN REGISTERED NURSE Signed: 05/02/2022 13:38 Receipt Acknowledged By: 05/02/2022 14:43 /es/ ZARA DAVID RN REGISTERED NURSE 05/02/2022 ADDENDUM STATUS: COMPLETED [id number] CC-FALL MINOR TRAUMA POC- JANAE SLAUGHTER POC#- [phone] UPDATED NOTIFICATION, MATCHE D NAME, [place] AND ADDRESS TO [facility], APPROVED [phone] EMAIL SENT /es/ DEONNA ONEIL MEDICAL MILLWRIGHT Signed: 05/02/2022 15:27 Receipt Acknowledged By: * AWAITING SIGNATURE * ARACELI ACSTRO
--- OUTSIDE RECORDS SUMMARY | 2022-05-15 09:21 | XMS_ITS ---
DAILY HOSPITALIZATION DATA [facility] Encounter Summary Created on:May 11, 2022 Patient:LUISANA EDDY Sex:Male :1935 Author Organization Department [facility] rs Address [address] [place] [address] Support Name Relationship Address Phone WADE LORENZO Unavailable [address] [place] [address] WADE LORENZO Unavailable [address] [place] [address] ARACELI MARSHALL Unavailable [address] [place] [address] MARILIA MARSHALLA Unavailable [phone] [place] [address] Insurance Providers: All historical and current Section [...] [place] Aug 19, [id number] Kristel EDDY [facility] (WNR) ADVANTAGE (WNR) 2016 8 [id number] [phone] [facility] 1 [place] Aug 19, [id number] Kristel EDDY [facility] (WNR) ADVANTAGE (WNR) 2017 03 [id number] [phone] [facility] 1 Selected Encounter This section includes the information on record at [place] for the Encounter. Date/Time Encounter Type Encounter Description Reason Provider Source May 11, 2022 02:44 Inpatient Visit DAILY HOSPITALIZATION DATA AM [facility] Encounter Template Text not used by [place] Plan of Treatment: Future Appointments (+ 6 months) and Future Tests (+/- 45 days) The Plan of Treatment section includes future care activities for the patient from all [place] [facility] This section includes future appointments and future orders which are active, pending orscheduled.Future Appointments This section includes appointments that were scheduled to occur 6 months from the date of the Encounter, up to a maximum of 20 appointments. The data comes from all [place] treatment facilities. Appointment Date/Time Appointment Type Appointment Facili ty Name Jul 23, 2022 08:00 AM AMBULATORY - NEUROLOGY [facility] Active, Pending, and Scheduled Orders This section includes a listing of several types of active, pending, and scheduled orders, including clinic medications orders, diagnostic test orders, procedure orders and consult orders; where the start date of the order is 45 days before the date of the Encounter or 45 days after the date of the Encounter. The data comes from all [place] treatment facilities. Test Date/Time Test Type Test Details Facility Name Apr 30, 2022 08:21 Laboratory - Chemistry URINALYSIS URINE WC ON CE [facility] AM Order Apr 30, 2022 08:21 Laboratory - CULTURE & SUSCEPTIBILITY [facility] AM Microbiology Order URINE WC May 06, 2022 12:00 Laboratory - Blood ABO/RH - LAB BLOOD [facility] AM Bank Order May 06, 2022 10:11 Laboratory - Blood TYPE & SCREEN - LAB [facility] AM Bank Order BLOOD WC May 06, 2022 10:27 [facility] AM Medication Order May 06, 2022 10:28 [facility] AM Infusion Order May 06, 2022 10:34 [facility] AM Infusion Order May 06, 2022 10:41 [facility] AM Infusion Order May 06, 2022 12:15 [facility] PM Medication Order May 06, 2022 01:31 [facility] PM Medication Order May 06, 2022 04:49 [facility] PM Medication Order May 07, 2022 01:00 Laboratory - CULTURE & SUSCEPTIBILITY [facility] PM Microbiology Order BLOOD WC ONCE May 11, 2022 09:07 Laboratory - CULTURE & SUSCEPTIBILITY [facility] AM Microbiology Order BLOOD WC May 11, 2022 09:07 Laboratory - CULTURE & SUSCEPTIBILITY [facility] AM Microbiology Order BLOOD WC May 11, 2022 09:38 Laboratory - Chemistry EOSINOPHIL SMEAR,URINE [facility] AM Order URINE WC ONCE May 11, 2022 09:38 Laboratory - Chemistry URINALYSIS URINE WC ON CE [facility] AM Order May 11, 2022 09:38 Laboratory - Chemistry FENA URINE WC ONCE [facility] AM Order Lab Results: +/- 30 days [...] Reference Range Comment May 11, 2022 11:13 [facility] FINGERSTICK GLUCOSE Speci men Type: BLOOD AM Comment: Mark casillas Nurse Notified Ordering Provid er: CODIE LEON Report Released Date/Time: May 11, 2022 11:53 AM Reporting Lab: [facility] [address] [facility] [address] Performing Lab: [facility] [address] [facility] [address] FINGERSTICK GLUCOSE 367 H 70-100 May 11, 2022 07:05 [facility] LIVER FUNCTION TESTS Spec imen Type: PLASMA AM No comment enter ed. Ordering Provid er: CODIE LEON Report Released Date/Time: May 11, 2022 09:08 AM Reporting Lab: [facility] [address] [facility] [address] Performing Lab: [facility] [address] [facility] [address] BILIRUBIN, TOTAL 1.6 H 0.2-1.2 ALKALINE PHOSPHATASE 102 40-150 ALT/SGPT 42 <55 AST/SGOT 30 <34 GAMMA GTP 52 <64 DIR. BILIRUBIN 1.2 H <0.5 May 11, 2022 07:05 [facility] BASIC METABOLIC Specimen Type: PLASMA AM PANEL+MG No comment enter ed. Ordering Provid er: OG DIAL Report Released Date/Time: May 11, 2022 04:46 AM Reporting Lab: [facility] [address] [facility] [address] Performing Lab: [facility] [address] [facility] [address] CREATININE 1.6 H 0.7-1.2 UREA NITROGEN 28 H 8-26 GLUCOSE 396 H 70-100 SODIUM 150 H 136-145 POTASSIUM 3.7 3.5-5.1 CHLORIDE 120 H 98-107 CO2 23 22-29 CALCIUM 8.4 8.4-10.2 MAGNESIUM 2.1 1.6-2.6 ANION GAP 7 5-15 CREAT EGFR(CKD-EPI) 42 L >60 May 11, 2022 07:05 AM [facility] CBC Specim en Type: BLOOD No comment enter ed. Ordering Provid er: OG DIAL Report Released Date/Time: May 11, 2022 04:46 AM Reporting Lab: [facility] [address] [facility] [address] Performing Lab: [facility] [address] [facility] [address] WBC 15.93 H 4.0-11.0 RBC 3.60 L 4.6-6.2 HGB 11.2 L 13.5-17.9 HCT 35.3 L 41-54 MCV 98.1 80-100 MCH 31.1 27-33 MCHC 31.7 L 32.0-37.5 PLT 231 150-400 MPV 11.2 H 7.4-10.4 RDW 15.2 H 11.5-14.5 May 11, 2022 07:05 AM [facility] BNP Specim en Type: PLASMA No comment enter ed. Ordering Provid er: CODIE LEON Report Released Date/Time: May 11, 2022 09:15 AM Reporting Lab: [facility] [address] [facility] [address] Performing Lab: [facility] [address] [facility] [address] BNP 59 <99 May 11, 2022 07:05 AM [facility] CK,TOTAL Specim en Type: PLASMA No comment enter ed. Ordering Provid er: CODIE LEON Report Released Date/Time: May 11, 2022 09:08 AM Reporting Lab: [facility] [address] [facility] [address] Performing Lab: [facility] [address] [facility] [address] CK,TOTAL 16 L 39-208 May 11, 2022 06:14 [facility] FINGERSTICK GLUCOSE Speci men Type: BLOOD AM Comment: Mark casillas Nurse Notified Ordering Provid er: CODIE LEON Report Released Date/Time: May 11, 2022 06:42 AM Reporting Lab: [facility] [address] [facility] [address] Performing Lab: [facility] [address] [facility] [address] FINGERSTICK GLUCOSE 345 H 70-100 May 11, 2022 02:24 [facility] FINGERSTICK GLUCOSE Speci men Type: BLOOD AM Comment: Mark casillas Ordering Provid er: CODIE LEON Report Released Date/Time: May 11, 2022 02:44 AM Reporting Lab: [facility] [address] [facility] [address] Performing Lab: [facility] [address] [facility] [address] FINGERSTICK GLUCOSE 375 H 70-100 May 10, 2022 08:38 [facility] FINGERSTICK GLUCOSE Speci men Type: BLOOD PM Comment: Mark casillas Ordering Provid er: CODIE LEON Report Released Date/Time: May 11, 2022 12:31 AM Reporting Lab: [facility] [address] [facility] [address] Performing Lab: [facility] [address] [facility] [address] FINGERSTICK GLUCOSE 346 H 70-100 May 10, 2022 05:05 [facility] FINGERSTICK GLUCOSE Speci men Type: BLOOD PM Comment: Mark casillas Nurse Notified Ordering Provid er: CODIE LEON Report Released Date/Time: May 10, 2022 11:50 PM Reporting Lab: [facility] [address] [facility] [address] Performing Lab: [facility] [address] [facility] [address] FINGERSTICK GLUCOSE 245 H 70-100 May 10, 2022 02:00 [facility] VANCOMYCIN (TROUGH) Speci men Type: PLASMA PM No comment enter ed. Ordering Provid er: CODIE LEON Report Released Date/Time: May 11, 2022 01:34 AM Reporting Lab: [facility] [address] [facility] [address] Performing Lab: [facility] [address] [facility] [address] VANCOMYCIN (TROUGH) 31.8 H 10.0-15.0 May 10, 2022 [facility] BASIC METABOLIC Specimen Typ e: PLASMA 02:00 PM PANEL+MG No comment enter ed. Ordering Provid er: CODIE LEON Report Released Date/Time: May 11, 2022 01:34 AM Reporting Lab: [facility] [address] Performing Lab: [facility] [address] CREATININE 1.1 .7-1.2 UREA NITROGEN 22 8-26 GLUCOSE 279 H 70-100 SODIUM 150 H 136-145 POTASSIUM 3.2 L 3.5-5.1 CHLORIDE 116 H 98-107 CO2 23 22-29 CALCIUM 8.5 8.4-10.2 MAGNESIUM 2.0 1.6-2.6 ANION GAP 11 5-15 CREAT EGFR(CKD-EPI) 65 >60 May 10, 2022 01:20 PM [facility] CBC & DIFF Specim en Type: BLOOD Comment: Automa nola Differential Performed Ordering Provid er: MD ESTEBAN Report Released Date/Time: May 10, 2022 08:52 PM Reporting Lab: [facility] [address] Performing Lab: [facility] [address] WBC 16.24 H 4.0-11.0 RBC 3.76 L [...] 0.28 H 0-0.1 May 10, 2022 11:07 [facility] FINGERSTICK GLUCOSE Speci men Type: BLOOD AM Comment: Mark casillas Nurse Notified Ordering Provid er: CODIE LEON Report Released Date/Time: May 11, 2022 12:31 AM Reporting Lab: [facility] [address] Performing Lab: [facility] [address] [facility] [address] FINGERSTICK GLUCOSE 253 H 70-100 May 10, 2022 06:16 [facility] FINGERSTICK GLUCOSE Speci men Type: BLOOD AM Comment: Mark casillas Nurse Notified Ordering Provid er: CODIE LEON Report Released Date/Time: May 10, 2022 11:50 PM Reporting Lab: [facility] [address] [facility] [address] Performing Lab: [facility] [address] [facility] [address] FINGERSTICK GLUCOSE 271 H 70-100 May 09, 2022 09:07 [facility] FINGERSTICK GLUCOSE Speci men Type: BLOOD PM Comment: Mark casillas Ordering Provid er: CODIE LEON Report Released Date/Time: May 10, 2022 11:50 PM Reporting Lab: [facility] [address] [facility] [address] Performing Lab: [facility] [address] [facility] [address] FINGERSTICK GLUCOSE 209 H 70-100 May 09, 2022 05:33 [facility] FINGERSTICK GLUCOSE Speci men Type: BLOOD PM Comment: Mark casillas Nurse Notified Ordering Provid er: CODIE LEON Report Released Date/Time: May 09, 2022 05:53 PM Reporting Lab: [facility] [address] [facility] [address] Performing Lab: [facility] [address] [facility] [address] FINGERSTICK GLUCOSE 251 H 70-100 May 09, 2022 02:09 [facility] VANCOMYCIN (PEAK) Specime n Type: SERUM PM No comment enter ed. Ordering Provid er: AMARIS DE JESUS Report Released Date/Time: May 09, 2022 09:33 AM Reporting Lab: [facility] [address] [facility] [address] Performing Lab: [facility] [address] [facility] [address] VANCOMYCIN (PEAK) 24.2 20.0-40.0 May 09, 2022 11:19 [facility] FINGERSTICK GLUCOSE Speci men Type: BLOOD AM Comment: Mark casillas Nurse Notified Ordering Provid er: CODIE LEON Report Released Date/Time: May 09, 2022 11:38 AM Reporting Lab: [facility] [address] [facility] [address] Performing Lab: [facility] [address] [facility] [address] FINGERSTICK GLUCOSE 240 H 70-100 May 09, 2022 08:13 [facility] VANCOMYCIN (TROUGH) Speci men Type: SERUM AM No comment enter ed. Ordering Provid er: AMARIS DE JESUS Report Released Date/Time: May 08, 2022 11:14 AM Reporting Lab: [facility] [address] [facility] [address] Performing Lab: [facility] [address] [facility] [address] VANCOMYCIN (TROUGH) 16.1 H 10.0-15.0 May 09, 2022 05:33 AM [facility] CBC & DIFF Specim en Type: BLOOD Comment: Automa nola Differential Performed Ordering Provid er: CODIE LEON Report Released Date/Time: May 08, 2022 05:27 PM Reporting Lab: [facility] [address] Performing Lab: [facility] [address] [facility] [address] WBC 14.92 H 4.0-11.0 RBC 3.41 L [...] GRAN 0.16 H 0-0.1 May 09, 2022 [facility] COMPREHENSIVE METABOLIC Spec imen Type: PLASMA 05:32 AM PANEL+MG No comment enter ed. Ordering Provid er: CODIE LEON Report Released Date/Time: May 08, 2022 05:27 PM Reporting Lab: [facility] [address] [facility] [address] Performing Lab: [facility] [address] CREATININE 1.2 0.7-1.2 UREA NITROGEN 25 8-26 [...] 59 L >60 May 09, 2022 05:16 [facility] FINGERSTICK GLUCOSE Speci men Type: BLOOD AM Comment: Mark casillas Nurse Notified Ordering Provid er: CODIE LEON Report Released Date/Time: May 09, 2022 07:27 AM Reporting Lab: [facility] [address] Performing Lab: [facility] [address] FINGERSTICK GLUCOSE 295 H 70-100 May 08, 2022 09:32 PM [facility] EXTRA MINT TUBE Specim en Type: PLASMA No comment enter ed. Ordering Provid er: MD ESTEBAN Report Released Date/Time: May 08, 2022 09:32 PM Reporting Lab: [facility] [address] Performing Lab: [facility] [address] EXTRA MINT TUBE RECEIVED May 08, 2022 09:32 PM [facility] EXTRA PURPLE TUBE Spec imen Type: BLOOD No comment enter ed. Ordering Provid er: MD ESTEBAN Report Released Date/Time: May 08, 2022 09:32 PM Reporting Lab: [facility] [address] Performing Lab: [facility] [address] EXTRA PURPLE TUBE RECEIVED May 08, 2022 09:32 [facility] EXTRA GOLD GEL TUBE Speci men Type: SERUM PM No comment enter ed. Ordering Provid er: MD ESTEBAN Report Release d Date/Time: May 08, 2022 09:32 PM Reporting Lab: [facility] [address] [facility] [address] Performing Lab: [facility] [address] [facility] [address] EXTRA GOLD GEL TUBE RECEIVED May 08, 2022 09:32 PM [facility] EXTRA BLUE TUBE Specim en Type: PLASMA No comment enter ed. Ordering Provid er: MD ESTEBAN Report Released Date/Time: May 08, 2022 09:32 PM Reporting Lab: [facility] [address] [facility] [address] Performing Lab: [facility] [address] [facility] [address] EXTRA BLUE TUBE RECEIVED May 08, 2022 09:32 PM [facility] EXTRA BRASWELL TUBE Specim en Type: PLASMA No comment enter ed. Ordering Provid er: MD ESTEBAN Report Released Date/Time: May 08, 2022 09:37 PM Reporting Lab: [facility] [address] [facility] [address] Performing Lab: [facility] [address] [facility] [address] EXTRA BRASWELL TUBE RECEIVED May 08, 2022 09:32 PM [facility] LACTIC ACID Specim en Type: PLASMA No comment enter ed. Ordering Provid er: OG DIAL Report Released Date/Time: May 08, 2022 09:49 PM Reporting Lab: [facility] [address] [facility] [address] Performing Lab: [facility] [address] [facility] [address] LACTIC ACID 2.5 H 0.5-2.2 May 08, 2022 09:32 PM [facility] BNP Specim en Type: PLASMA No comment enter ed. Ordering Provid er: OG DIAL Report Released Date/Time: May 08, 2022 09:50 PM Reporting Lab: [facility] [address] [facility] [address] Performing Lab: [facility] [address] [facility] [address] BNP 897 H <99 May 08, 2022 09:32 PM [facility] BLOOD GASES Specim en Type: VENOUS BLOOD Comment: O2 THE RAPY = 3L PM Ordering Provid er: OG DIAL Report Released Date/Time: May 08, 2022 09:50 PM Reporting Lab: [facility] [address] Performing Lab: [facility] [address] PH 7.36 7.33-7.43 PCO2 47 41-51 BICARBONATE 24.4 21.0-30.0 PO2 31 L 35-40 OXYGEN SATURATION 54.7 L 70.0-75.0 PH(TEMP CORRECTED) 7.37 7.33-7.43 PCO2(TEMP CORRECTED) 46 41-51 PO2(TEMP CORRECTED) 31 L 35-40 PATIENT TEMPERATURE 36.7 May 08, 2022 09:32 PM [facility] CBC Specim en Type: BLOOD No comment enter ed. Ordering Provid er: OG DIAL Report Released Date/Time: May 08, 2022 09:50 PM Reporting Lab: [facility] [address] Performing Lab: [facility] [address] WBC 18.54 H 4.0-11.0 RBC 3.68 L 4.6-6.2 HGB 11.5 L 13.5-17.9 HCT 35.1 L 41-54 MCV 95.4 80-100 MCH 31.3 27-33 MCHC 32.8 32.0-37.5 PLT 221 150-400 MPV 11.1 H 7.4-10.4 RDW 14.9 H 11.5-14.5 May 08, 2022 [facility] COMPREHENSIVE METABOLIC Spec imen Type: PLASMA 09:32 PM PANEL+MG No comment enter ed. Ordering Provid er: OG DIAL Report Released Date/Time: May 08, 2022 09:50 PM Reporting Lab: [facility] [address] Performing Lab: [facility] [address] CREATININE 1.3 H 0.7-1.2 UREA NITROGEN 26 [...] 54 L >60 May 08, 2022 08:27 [facility] FINGERSTICK GLUCOSE Speci men Type: BLOOD PM Comment: Mark casillas Nurse Notified Ordering Provid er: CODIE LEON Report Released Date/Time: May 08, 2022 08:55 PM Reporting Lab: [facility] [address] [facility] [address] Performing Lab: [facility] [address] [facility] [address] FINGERSTICK GLUCOSE 272 H 70-100 May 08, 2022 06:56 [facility] FINGERSTICK GLUCOSE Speci men Type: BLOOD PM Comment: Mark casillas Ordering Provid er: CODIE LEON Report Released Date/Time: May 08, 2022 07:08 PM Reporting Lab: [facility] [address] [facility] [address] Performing Lab: [facility] [address] [facility] [address] FINGERSTICK GLUCOSE 262 H 70-100 May 08, 2022 04:50 [facility] FINGERSTICK GLUCOSE Speci men Type: BLOOD PM Comment: Nurse Notified Ordering Provid er: CODIE LEON Report Released Date/Time: May 08, 2022 05:14 PM Reporting Lab: [facility] [address] [facility] [address] Performing Lab: [facility] [address] [facility] [address] FINGERSTICK GLUCOSE 330 H 70-100 May 08, 2022 11:21 [facility] FINGERSTICK GLUCOSE Speci men Type: BLOOD AM Comment: Mark casillas Nurse Notified Ordering Provid er: CODIE LEON Report Released Date/Time: May 08, 2022 11:51 AM Reporting Lab: [facility] [address] [facility] [address] Performing Lab: [facility] [address] [facility] [address] FINGERSTICK GLUCOSE 231 H 70-100 May 08, 2022 07:25 AM [facility] CBC & DIFF Specim en Type: BLOOD Comment: Automrobby vaca Differential Performed Ordering Provid er: BETO AYALA Report Released Date/Time: May 07, 2022 12:28 PM Reporting Lab: [facility] [address] Performing Lab: [facility] [address] WBC 16.29 H 4.0-11.0 RBC 3.38 L [...] GRAN 0.26 H 0-0.1 May 08, 2022 [facility] PROTHROMBIN TIME/INR Specime n Type: PLASMA 07:25 AM No comment enter ed. Ordering Provid er: BETO AYALA Report Released Date/Time: May 07, 2022 12:28 PM Reporting Lab: [facility] [address] Performing Lab: [facility] [address] .INR 1.2 H 0.8-1.1 .PT 14.2 H 9.4-12.5 May 08, 2022 [facility] COMPREHENSIVE METABOLIC Spec imen Type: PLASMA 07:25 AM PANEL+MG No comment enter ed. Ordering Provid er: BETO AYALA Report Released Date/Time: May 07, 2022 12:28 PM Reporting Lab: [facility] [address] Performing Lab: [facility] [address] CREATININE 1.1 0.7-1.2 UREA NITROGEN 27 H [...] EGFR(CKD-EPI) 65 >60 May 08, 2022 06:53 [facility] FINGERSTICK GLUCOSE Speci men Type: BLOOD AM Comment: Save R esult Ordering Provid er: CODIE LEON Report Released Date/Time: May 08, 2022 07:18 AM Reporting Lab: [facility] [address] [facility] [address] Performing Lab: [facility] [address] [facility] [address] FINGERSTICK GLUCOSE 276 H 70-100 May 07, 2022 08:36 [facility] FINGERSTICK GLUCOSE Speci men Type: BLOOD PM Comment: Nurse Notified Ordering Provid er: CODIE LEON Report Released Date/Time: May 08, 2022 12:29 AM Reporting Lab: [facility] [address] [facility] [address] Performing Lab: [facility] [address] [facility] [address] FINGERSTICK GLUCOSE 282 H 70-100 May 07, 2022 07:04 PM [facility] LACTIC ACID Specim en Type: PLASMA No comment enter ed. Ordering Provid er: BETO AYALA Report Released Date/Time: May 07, 2022 06:28 PM Reporting Lab: [facility] [address] [facility] [address] Performing Lab: [facility] [address] [facility] [address] LACTIC ACID 2.0 0.5-2.2 May 07, 2022 04:46 [facility] FINGERSTICK GLUCOSE Speci men Type: BLOOD PM Comment: Nurse Notified Ordering Provid er: BETO AYALA Report Released Date/Time: May 07, 2022 05:00 PM Reporting Lab: [facility] [address] [facility] [address] Performing Lab: [facility] [address] [facility] [address] FINGERSTICK GLUCOSE 274 H 70-100 May 07, 2022 12:47 [facility] FINGERSTICK GLUCOSE Speci men Type: BLOOD PM Comment: Mark casillas Nurse Notified Ordering Provid er: BETO AYALA Report Released Date/Time: May 07, 2022 05:32 PM Reporting Lab: [facility] [address] [facility] [address] Performing Lab: [facility] [address] [facility] [address] FINGERSTICK GLUCOSE 309 H 70-100 May 07, 2022 06:35 [facility] FINGERSTICK GLUCOSE Speci men Type: BLOOD AM Comment: Mark casillas Nurse Notified Ordering Provid er: GAYLA DOMINGUEZ Report Released Date/Time: May 07, 2022 06:46 AM Reporting Lab: [facility] [address] [facility] [address] Performing Lab: [facility] [address] [facility] [address] FINGERSTICK GLUCOSE 352 H 70-100 May 07, 2022 06:15 AM [facility] ALBUMIN Specim en Type: PLASMA No comment enter ed. Ordering Provid er: GAYLA DOMINGUEZ Report Released Date/Time: May 06, 2022 06:33 PM Reporting Lab: [facility] [address] [facility] [address] Performing Lab: [facility] [address] [facility] [address] ALBUMIN 3.0 L 3.5-5.2 May 07, 2022 [facility] COMPREHENSIVE METABOLIC Spec imen Type: PLASMA 06:15 AM PANEL+MG No comment enter ed. Ordering Provid er: GAYLA DOMINGUEZ Report Released Date/Time: May 06, 2022 09:11 PM Reporting Lab: [facility] [address] [facility] [address] Performing Lab: [facility] [address] [facility] [address] CREATININE 1.2 0.7-1.2 UREA NITROGEN 25 8-26 [...] L >60 May 07, 2022 06:15 AM [facility] CBC & DIFF Specim en Type: BLOOD Comment: Manual Differential Performed Ordering Provid er: GAYLA DOMINGUEZ Report Released Date/Time: May 06, 2022 09:11 PM Reporting Lab: [facility] [address] [facility] [address] Performing Lab: [facility] [address] [facility] [address] WBC 20.25 H 4.0-11.0 RBC 3.54 L [...] NORMOCYTIC, NORMOCHROMIC May 07, 2022 12:19 AM [facility] LACTIC ACID Specim en Type: PLASMA No comment enter ed. Ordering Provid er: GAYLA DOMINGUEZ Report Released Date/Time: May 06, 2022 07:13 PM Reporting Lab: [facility] [address] [facility] [address] Performing Lab: [facility] [address] [facility] [address] LACTIC ACID 2.7 H 0.5-2.2 May 06, 2022 10:45 [facility] FINGERSTICK GLUCOSE Speci men Type: BLOOD PM Comment: Mark casillas Nurse Notified Ordering Provid er: GAYLA DOMINGUEZ Report Released Date/Time: May 07, 2022 12:08 AM Reporting Lab: [facility] [address] [facility] [address] Performing Lab: [facility] [address] [facility] [address] FINGERSTICK GLUCOSE 320 H 70-100 May 06, 2022 06:53 [facility] MRSA SURVL NARES Specimen Type: NARES PM DNA No comment enter ed. Ordering Provid er: GAYLA DOMINGUEZ Report Released Date/Time: May 06, 2022 06:33 PM Reporting Lab: [facility] [address] [facility] [address] Performing Lab: [facility] [address] [facility] [address] MRSA SURVL NARES DNA POSITIVE HH Negative May 06, 2022 06:51 PM [facility] LACTIC ACID Specim en Type: PLASMA No comment enter ed. Ordering Provid er: GAYLA DOMINGUEZ Report Released Date/Time: May 06, 2022 06:04 PM Reporting Lab: [facility] [address] [facility] [address] Performing Lab: [facility] [address] [facility] [address] LACTIC ACID 3.1 H 0.5-2.2 May 06, 2022 06:51 [facility] CARDIAC TROPONIN I Specim en Type: PLASMA PM No comment enter ed. Ordering Provid er: GAYLA DOMINGUEZ Report Released Date/Time: May 06, 2022 06:05 PM Reporting Lab: [facility] [address] [facility] [address] Performing Lab: [facility] [address] [facility] [address] CARDIAC TROPONIN I <0.028 <0.028 May 06, 2022 06:51 [facility] EXTRA GOLD GEL TUBE Speci men Type: SERUM PM No comment enter ed. Ordering Provid er: GAYLA DOMINGUEZ Report Released Date/Time: May 06, 2022 06:52 PM Reporting Lab: [facility] [address] [facility] [address] Performing Lab: [facility] [address] [facility] [address] EXTRA GOLD GEL TUBE RECEIVED May 06, 2022 06:51 [facility] C-REACTIVE PROTEIN Specim en Type: PLASMA PM No comment enter ed. Ordering Provid er: GAYLA DOMINGUEZ Report Released Date/Time: May 06, 2022 09:29 PM Reporting Lab: [facility] [address] [facility] [address] Performing Lab: [facility] [address] [facility] [address] C-REACTIVE PROTEIN 392.40 H <5.00 May 06, 2022 10:51 AM [facility] URINALYSIS Specim en Type: URINE No comment enter ed. Ordering Provid er: MODESTA VILLANUEVA Report Released Date/Time: May 06, 2022 10:11 AM Reporting Lab: [facility] [address] [facility] [address] Performing Lab: [facility] [address] URINE COLOR YELLOW SPECIFIC GRAVITY 1.020 1.003-1.035 [...] ESTERASE 500 NEGATIVE May 06, 2022 10:24 [facility] COVID-19 DIAGNOSTIC Speci men Type: NASOPHARYNGEAL AM PANEL (CEPHEID) Comment: Cepjosseline lopez GeneXpert (618) Ordering Provid er: MODESTA VILLANUEVA Report Released Date/Time: May 06, 2022 10:11 AM Reporting Lab: [facility] [address] [facility] [address] Performing Lab: [facility] [address] COVID-19 (CEPHEID) Not Detected Not Dete cted May 06, 2022 10:20 AM [facility] POC ABG/LACTATE Specim en Type: VENOUS BLOOD No comment enter ed. Ordering Provid er: MODESTA VILLANUEVA Report Released Date/Time: May 06, 2022 10:22 AM Reporting Lab: [facility] [address] [facility] [address] Performing Lab: [facility] [address] [facility] [address] POC PH 7.410 7.31-7.41 POC PCO2 28.9 L 35.00-45.00 POC PO2 82 H 35.0-40.0 POC TCO2 19 L 24.0-29.0 POC HCO3 18.3 L 23.0-28.0 POC BE ECT -6 L -2 POC SO2 96 H 70-75 POC LACTATE 3.62 0.90-1.70 May 06, 2022 10:00 AM [facility] PHOSPHORUS Specim en Type: PLASMA No comment enter ed. Ordering Provid er: MODESTA VILLANUEVA Report Released Date/Time: May 06, 2022 10:11 AM Reporting Lab: [facility] [address] [facility] [address] Performing Lab: [facility] [address] [facility] [address] PHOSPHORUS 2.5 2.3-4.7 May 06, 2022 10:00 [facility] ACT PART THROMBO TIME Spe cimen Type: PLASMA AM No comment enter ed. Ordering Provid er: MODESTA VILLANUEVA Report Released Date/Time: May 06, 2022 10:11 AM Reporting Lab: [facility] [address] [facility] [address] Performing Lab: [facility] [address] [facility] [address] APTT 37.8 H 25.1-36.5 May 06, 2022 10:00 [facility] PROTHROMBIN TIME/INR Spec imen Type: PLASMA AM No comment enter ed. Ordering Provid er: MODESTA VILLANUEVA Report Released Date/Time: May 06, 2022 10:11 AM Reporting Lab: [facility] [address] [facility] [address] Performing Lab: [facility] [address] [facility] [address] .INR 2.5 H 0.8-1.1 .PT 29.2 H 9.4-12.5 May 06, 2022 10:00 [facility] CARDIAC TROPONIN I Specim en Type: PLASMA AM Comment: Critic al Value Reported To: BROOKS COTE 05-06-2022 @1053 BY MBB. Critical value report confirmed. Ordering Provid er: MODESTA VILLANUEVA Report Released Date/Time: May 06, 2022 10:11 AM Reporting Lab: [facility] [address] [facility] [address] Performing Lab: [facility] [address] [facility] [address] CARDIAC TROPONIN I 0.035 HH <0.028 May 06, 2022 10:00 AM [facility] PROCALCITONIN Specim en Type: PLASMA No comment enter ed. Ordering Provid er: MODESTA VILLANUEVA Report Released Date/Time: May 06, 2022 10:11 AM Reporting Lab: [facility] [address] [facility] [address] Performing Lab: [facility] [address] [facility] [address] PROCALCITONIN 22.29 H <0.09 May 06, 2022 10:00 AM [facility] LIPASE Specim en Type: PLASMA No comment enter ed. Ordering Provid er: MODESTA VILLANUEVA Report Released Date/Time: May 06, 2022 10:11 AM Reporting Lab: [facility] [address] [facility] [address] Performing Lab: [facility] [address] [facility] [address] LIPASE <4 <60 May 06, 2022 10:00 AM [facility] CBC & DIFF Specim en Type: BLOOD Comment: Manual Differential Performed Ordering Provid er: MODESTA VILLANUEVA Report Released Date/Time: May 06, 2022 10:11 AM Reporting Lab: [facility] [address] [facility] [address] Performing Lab: [facility] [address] [facility] [address] WBC 18.82 H 4.0-11.0 RBC 3.70 L [...] .RBC MORPHOLOGY PRESENT May 06, 2022 10:00 [facility] EXTRA GOLD GEL TUBE Speci men Type: SERUM AM No comment enter ed. Ordering Provid er: LINNEA RAND Report Released Date/Time: May 06, 2022 10:25 AM Reporting Lab: [facility] [address] [facility] [address] Performing Lab: [facility] [address] [facility] [address] EXTRA GOLD GEL TUBE RECEIVED May 06, 2022 [facility] COMPREHENSIVE METABOLIC Spec imen Type: PLASMA 10:00 AM PANEL+MG Comment: Manual Differential Performed Ordering Provid er: MODESTA VILLANUEVA Report Released Date/Time: May 06, 2022 10:11 AM Reporting Lab: [facility] [address] [facility] [address] Performing Lab: [facility] [address] [facility] [address] CREATININE 1.3 H 0.7-1.2 UREA NITROGEN 25 [...] 54 L >60 May 06, 2022 09:46 [facility] FINGERSTICK GLUCOSE Speci men Type: BLOOD AM Comment: Mark casillas Nurse Notified Ordering Provid er: MODESTA VILLANUEVA Report Released Date/Time: May 06, 2022 09:59 AM Reporting Lab: [facility] [address] [facility] [address] Performing Lab: [facility] [address] FINGERSTICK GLUCOSE 369 H 70-100 Apr 30, 2022 09:17 AM [facility] CBC Specim en Type: BLOOD No comment enter ed. Ordering Provid er: BILL ROONEY Report Released Date/Time: Apr 30, 2022 08:21 AM Reporting Lab: [facility] [address] [facility] [address] Performing Lab: [facility] [address] [facility] [address] WBC 10.40 4.0-11.0 RBC 3.96 L 4.6-6.2 HGB 12.3 L 13.5-17.9 HCT 37.8 L 41-54 MCV 95.5 80-100 MCH 31.1 27-33 MCHC 32.5 32.0-37.5 PLT 286 150-400 MPV 10.1 7.4-10.4 RDW 14.6 H 11.5-14.5 Apr 30, 2022 [facility] BASIC METABOLIC Specimen Typ e: PLASMA 09:17 AM PANEL+MG No comment enter ed. Ordering Provid er: BILL ROONEY Report Released Date/Time: Apr 30, 2022 08:21 AM Reporting Lab: [facility] [address] Performing Lab: [facility] [address] CREATININE 1.2 0.7-1.2 UREA NITROGEN 26 8-26 GLUCOSE 140 H 70-100 SODIUM 138 136-145 POTASSIUM 3.8 3.5-5.1 CHLORIDE 107 98-107 CO2 20 L 22-29 CALCIUM 9.4 8.4-10.2 MAGNESIUM 1.7 1.6-2.6 ANION GAP 11 5-15 CREAT EGFR(CKD-EPI) 59 L >60 Vital Signs: All taken on the encounter date This section contains inpatient and outpatient Vital Signs collected on the date of the Encounter. Date/Time Temperature Pulse Blood Respiratory SP02 Pain Height Weight [place] dy Source Pressure Rate Mass Index May 11 [facility] 2021 08:39 [facility] May 11 [facility] 2021 05:42 [facility] May 11 [facility] 2021 03:33 [facility] May 11 [facility] 2021 12:54 [facility] Social History: Smoking Status (Most current) and [...] Comment Facility Feb 02, 2022 09:30 AM [place]-TOBACCO NEVER USED [employer] [facility] Tobacco Use History This section includes a history of the smoking, or tobacco- related health factors, that were collected on or before the date of the Encounter. The data comes from the [place] facility where the Encounter took place. Date/Time Smoking Status/Tobacco Use Comment [facility] Mar 22, 2021 07:45 AM [place]-TOBACCO NEVER USED [employer] [facility] Oct 02, 2019 10:02 AM [place]-TOBACCO NEVER USED [place] [facility] May 21, 2018 09:05 AM [place]-TOBACCO NEVER USED [place] [facility] December 25, 2017 06:14 PM INPT NO TOBACCO USE IN LAST 30 DAYS [facility] Oct 01, 2017 07:34 AM LIFETIME NON-TOBACCO USER [facility] Sep 28, 2016 08:44 AM LIFETIME NON-TOBACCO USER [facility] Oct 14, 2015 07:52 AM LIFETIME NON-TOBACCO USER [facility] Oct 11, 2014 07:59 AM LIFETIME NON-TOBACCO USER [facility] January 15, 2007 07:55 AM LIFETIME NON-TOBACCO USER [facility] Advance Directives: All historical and [...] ADVANCE DIRECTIVE LARISSA SIGALA [facility] Apr 18, 2018 ADVANCE DIRECTIVE DISCUSSION JOVONLARISSA [facility] December 23, 2017 CLINICAL WARNING FARHAT SCHMID [facility] May 11, 2003 ADVANCE DIRECTIVE BERT CASILLAS [facility] Radiology Reports: +/- 30 days [...] the Encounter. The data comes from all [place] treatment facilities. Date/Time Radiology Report Provider Source May 11, 2022 09:46 CHEST 1 VIEW: SONJA OVALLES [facility] AM LUISANA EDDY [id number] -1935 M Exm Date: MAY 11, 2022@09:46 Req Phys: CODIE LEON Loc: OP Unknown /05-13-2022@05:05 Img Loc: MAIN X-RAY Service: PRIMARY CARE - MED OFFICE (Case [id number] COMPLETE) CHEST 1 VIEW (RAD Detailed) CPT:07736 Proc Modifiers : PORTABLE EXAM Reason for [...] 11, 2022 Date Verified: MAY 11, 2022 Sales Office Manager E-Sig:/ES/SONJA OVALLES MD Report: CHEST 1 [...] Primary Interpreting Staff: SONJA OVALLES MD, RADIOLOGIST (Sales Office Manager) /CDC May 10, 2022 03:49 CT HEAD (P): RADIOLOGY,OUTSIDE [facility] PM LUISANA EDDY [id number] -1935 M SERVICE Exm Date: MAY 10, 2022@15:49 Req Phys: CODIE LEON Loc: OP Unknown /05-13-2022@05:05 Img Loc: CT IMAGING Service: PRIMARY CARE - MED OFFICE (Case [id number] COMPLETE) CT HEAD/BRAIN W/O CONTRAST (CT Detailed) CPT:58471 Reason for Study: CHANGE IN MENTAL STATUS Clinical History: CHANGE IN MENTAL STATUS. ORDER ADMINISTRATIVELY ENTERED FOLLOWING SYSTEM OUTAGE. Report Status: Verified Date Reported: MAY 10, 2022 Date Verified: MAY 10, 2022 Sales Office Manager E-Sig: Report: CT HEAD/BRAIN W/O CONTRAST [PRINTSET] HISTORY: Change in mental status. COMPARISON: CT from 05/07/2022. TECHNIQUE: Contiguous axial CT images from the level of the skull base through the skull apex, with coronal and s agittal reformats, performed at the local [place] facility. 321 images were received by the [place] National Teleradiology Program (NTP) for interpretation. RADIATION [...] study. READING PHYSICIAN: Akash Mccoy M.D. -[phone] 05/10/2022 17:35 PDT [facility] National Teleradiology Program [phone] (For Medical Practitioner Use Only ) Attention Patients / Veterans: If you have ques tions or concerns about these test results, please contact [facility] or primary care team. Primary Interpreting Staff: RADIOLOGY,OUTSIDE SERVICE, Staff Physician / May 08, 2022 07:45 CT T-SPINE (P): RADIOLOGY,OUTSIDE [facility] LUISANA EDDY [id number] -1935 M SERVICE Exm Date: MAY 08, 2022@19:45 Req Phys: CODIE LEON Loc: OP Unknown /05-13-2022@05:05 Img Loc: CT IMAGING Service: PRIMARY CARE - MED OFFICE (Case [id number] COMPLETE) CT SPINE THORACIC W/O CONTR AST (CT Detailed) CPT:71376 Reason for Study: mrsa bacteremia, spinal surge ry - r/o abscess or discitis Clinical History: [place] IS NOT under investigation for COVID-19 or is COVID-19 negative Defer to radiologist for final CT protocol. Responsible provider name and phone number to n otify for critical findings if other than user placing the order a nd pager listed below: User placing orders pager: [phone] LAST 3: Collection DT Specimen Test Name [...] GFR (eGF 44 L Ref: >=60 Allergies: ([place] only) SIMVASTATIN (Feb 29, 2004) CEPHALEXIN (Mar 01, 2004) Report Status: Verified Date Reported: MAY 08, 2022 Date Verified: MAY 08, 2022 Sales Office Manager E-Sig: Report: CT SPINE THORACIC W/O CONTRAST [PRINTSET] HISTORY:MRSA bacteremia NUMBER OF IMAGES:[id number] COMPARISON: Correlation with images from recent CT abdomen and pelvis May 06, 2022 TECHNIQUE: A non contrast CT of the thoracic sp ine was performed at the local [place]. Images were subsequently sent to [facility] [...] thoracic level. READING PHYSICIAN: Luisana Webb MD -[id number] 05/08/2022 19:20 PDT [facility] National Teleradiology Program [phone] (For Medical Practitioner Use Only ) Attention Patients / Veterans: If you have ques tions or concerns about these test results, please contact your o [facility] provider or primary care team. Primary Interpreting Staff: RADIOLOGY,OUTSIDE SERVICE, Staff Physician / May 08, 2022 04:48 CHEST 1 VIEW: RADIOLOGY,OUTSIDE [facility] PM LUISANA EDDY [phone] M SERVICE Exm Date: MAY 08, 2022@16:48 Req Phys: CODIE LEON Loc: OP Unknown /05-13-2022@05:05 Img Loc: MAIN X-RAY Service: PRIMARY CARE - MED OFFICE (Case [id number] COMPLETE) CHEST 1 VIEW (RAD Detailed) CPT:47065 Proc Modifiers : PORTABLE EXAM Reason for Study: dyspnea Clinical History: IS NOT under investigation for COVID-19 or is COVID-19 negative acute worsening of dyspnea Responsible provider name and phone number to notify for critical findings if other than user placing the order and pager listed below: User placing orders pager: [phone] malini cell [phone] LAST CREATININE 1.1 (05/08/22) Report Status: Verified Date Reported: MAY 08, 2022 Date Verified: MAY 08, 2022 Sales Office Manager E-Sig: Report: CHEST 1 VIEW HISTORY: dyspnea COMPARISON: 05/06/2022 TECHNIQUE: Frontal view(s) of the chest, submit nola to the [place] National Teleradiology Program (NTP) for interp retation. FINDINGS: Reduced lung volumes. Progressive cardiomegaly, and vascular congestion as well as diffuse interstitial prom inence with probable small effusions. Impression: Expiratory exam with findings of CHF and mild e santa READING PHYSICIAN: Nghia Menjivar M.D. -[phone] 10 05/08/2022 18:57 EDT [facility] National Teleradiology Program [phone] (For Medical Practitioner Use Only ) Attention Patients / Veterans: If you have ques tions or concerns about these test results, please contact your o [facility] provider or primary care team. Primary Interpreting Staff: RADIOLOGY,OUTSIDE SERVICE, Staff Physician / May 07, 2022 10:29 CT HEAD (P): SHANI POLANCO [facility] AM LUISANA EDDY [id number] -1935 M Exm Date: MAY 07, 2022@10:29 Req Phys: BETO AYALA Loc: OP Unknown/0 05-13-2022@05:05 Img Loc: CT IMAGING Service: PRIMARY CARE - MED OFFICE (Case [id number] COMPLETE) CT HEAD/BRAIN W/O CONTRAST ( CT Detailed) CPT:21578 Reason for Study: seizure noted at OSH Clinical History: [place] IS NOT under investigation for COVID-19 or is COVID-19 negative Defer to radiologist for final CT protocol. Responsible provider name and phone number to n otify for critical findings if other than user placing the order a nd pager listed below: User placing orders pager: [phone] LAST 3: Collection DT Specimen Test Name [...] GFR (eGF 44 L Ref: >=60 Allergies: ([place] only) SIMVASTATIN (Feb 29, 2004) CEPHALEXIN (Mar 01, 2004) Report Status: Verified Date Reported: MAY 07, 2022 Date Verified: MAY 07, 2022 Sales Office Manager E-Sig:/ES/SHANI POLANCO MD Report: EXAM: CT HEAD/BRAIN W/O CONTRAST HISTORY: seizure noted at OSH Reason for Study: seizure noted at OSH [place] IS NOT under investigation for COVID-19 or is COVID-19 negative Defer to radiologist for final CT prot ocol. Responsible provider name and phone number to notify for cr itical findings if other than user placing the order and pager lis nola below: User placing orders pager: [phone] LAST 3: Collecti on DT Specimen Test [...] Primary Interpreting Staff: SHANI POLANCO MD, RADIOLOGIST (Sales Office Manager) /Javed May 06, 2022 11:40 CHEST 1 VIEW: RADIOLOGY,OUTSIDE [facility] AM LUISANA EDDY [id number] -1935 M SERVICE Exm Date: MAY 06, 2022@11:40 Req Phys: MODESTA VILLANUEVA Loc: [facility] EMERGENCY DEPT WALK-IN (Re Img Loc: MAIN X-RAY Service: Unknown (Case 73 COMPLETE) CHEST 1 VIEW (RAD Detailed) C PT:54614 Proc Modifiers : PORTABLE EXAM Reason for Study: fever, back pain Clinical History: Reason for Exam: Severe Sepsis Pathway to Evalu ate Volume Status and Source of Sepsis [place] IS under investigation (PUI) for COVID- 19 or is COVID-19+ 86 yo M with fever, back pain Responsible provi violeta name and phone number to notify for critical findings if other than user placing the order and pager listed below: User placing orders pager: [phone] LAST CREATININE 1.2 (04/30/22) Report Status: Verified Date Reported: MAY 06, 2022 Date Verified: MAY 06, 2022 Sales Office Manager E-Sig: Report: Technique: Frontal chest. No comparison Impression: Cardiac silhouette is mildly enlarged. There is mild pulmonary venous congestion. No definite pleural effusion . No pneumothorax seen. READING PHYSICIAN: Vern Donnelly M.D. -[id number] 07 05/06/2022 13:26 EDT [facility] National Teleradiology Program [phone] (For Medical Practitioner Use Only ) Attention Patients / Veterans: If you have ques tions or concerns about these test results, please contact your o rdering provider or primary care team. Primary Interpreting Staff: RADIOLOGY,OUTSIDE SERVICE, Staff Physician / May 06, 2022 10:36 CT (AP) ABDOMEN/PELVIS (P): RADIOLOGY,OUTSIDE [facility] AM LUISANA EDDY [id number] -1935 M SERVICE Exm Date: MAY 06, 2022@10:36 Req Phys: MODESTA VILLANUEVA Loc: [facility] EMERGENCY [facility]PT WALK-IN (Re Img Loc: CT IMAGING Service: Unknown (Case 66 COMPLETE) CT (AP) ABDOMEN/PELVIS W CONT RAST(CT Detailed) CPT:23978 Reason for Study: fever, back pain Clinical History: fever, back pain, ecchymosis left low back consideration for intra-abdominal process, aort ic changes, LS spine trauma, kidney inflammation, GI or obs truction [place] IS under investigation (PUI) for COVID- 19 or is COVID-19+ Defer to radiologist for final CT protocol. Please enter pertinent clinical history on the next page. Responsible provider name and phone number to n otify for critical findings if other than user placing the order a nd pager listed below: User placing orders pager: [phone] LAST 3: Collection DT Specimen Test Name [...] ESTIMATED GFR(eGF 44 L Ref: >=60 Allergies: ([place] only) SIMVASTATIN (Feb 29, 2004) CEPHALEXIN (Mar 01, 2004) To see allergies from all [place] locations click Re ports tab>Remote Data>All Available Sites>Clinical Reports>Aller gies. Report Status: Verified Date Reported: MAY 06, 2022 Date Verified: MAY 06, 2022 Sales Office Manager E-Sig: Report: Exam: CT (AP) ABDOMEN/PELVIS W CONTRAST [PRINTS ET] Clinical History: fever, back pain Number of images: 918 Comparison: No priors available Technique: The study was protocoled and supervi sed at the local [place] facility. CT of the abdomen and pelvis was performed afte r the uneventful administration of iodinated contrast. Images we re received by the [place] National Teleradiology Program (NTP) for interpretation. Total [...] findings, above. READING PHYSICIAN: Eduin Donaldson M.D. -[phone] 05/06/2022 12:48 [facility] StatusNetradiology Program [phone] (For Medical Practitioner Use Only ) Attention Patients / Veterans: If you have ques tions or concerns about these test results, please contact your o [facility] provider or primary care team. Primary Interpreting Staff: RADIOLOGY,OUTSIDE SERVICE, Staff Physician / May 06, 2022 10:35 CT HEAD/BRAIN W/O CONTRAST: RADIOLOGY,OUTSIDE [facility] LUISANA EDDY [id number] -1935 M SERVICE Exm Date: MAY 06, 2022@10:35 Req Phys: MODESTA VILLANUEVA Loc: [facility] EMERGENCY DEPT WALK-IN (Re Img Loc: CT IMAGING Service: Unknown (Case 64 COMPLETE) CT HEAD/BRAIN W/O CONTRAST (C T Detailed) CPT:29780 Reason for Study: falls, blood thinner, AMS, se izure Clinical History: falls, blood thinner, AMS, seizure [place] IS under investigation (PUI) for COVID- 19 or is COVID-19+ Defer to radiologist for final CT protocol. Responsible provider name and phone number to n otify for critical findings if other than user placing the order a nd pager listed below: User placing orders pager: [phone] LAST 3: Collection DT Specimen Test Name [...] ESTIMATED GFR(eGF 44 L Ref: >=60 Allergies: ([place] only) SIMVASTATIN (Feb 29, 2004) CEPHALEXIN (Mar 01, 2004) To see allergies from all [place] locations click Re ports tab>Remote Data>All Available Sites>Clinical Reports>Aller gies. Report Status: Verified Date Reported: MAY 06, 2022 Date Verified: MAY 06, 2022 Sales Office Manager E-Sig: Report: CT HEAD/BRAIN W/O CONTRAST Clinical History: falls, blood thinner, AMS, se izure Number of Images: 532 Comparison: 03/12/2022 Technique: The study was protocoled and supervi sed at the local [place] facility. CT of the head without contrast. I mages were subsequently received by the [place] National Telera diology Program (NTP) for interpretation. [...] T findings. READING PHYSICIAN: Eduin Donaldson M.D. -[phone] 05/06/2022 12:30 [facility] National Teleradiology Program [phone] (For Medical Practitioner Use Only ) Attention Patients / Veterans: If you have ques tions or concerns about these test results, please [facility] or primary care team. Primary Interpreting Staff: RADIOLOGY,OUTSIDE SERVICE, Staff Physician / May 06, 2022 10:35 CT CERVICAL SPINE W/O CONTRAST: RADIOLOGY,OUT SIDE [facility] AM LUISANA EDDY [id number] 1935 M SERVICE Exm Date: MAY 06, 2022@10:35 Req Phys: MODESTA VILLANUEVA Loc: [facility] EMERGENCY DEPT WALK-IN (Re Img Loc: CT IMAGING Service: Unknown (Case 65 COMPLETE) CT CERVICAL SPINE W/O CONTRAS T (CT Detailed) CPT:65184 Reason for Study: falls, blood thinner, AMS, se izure Clinical History: falls, blood thinner, AMS, seizure IS under investigation (PUI) for COVID- 19 or is COVID-19+ Defer to radiologist for final CT protocol. Responsible provider name and phone number to n otify for critical findings if other than user placing the order a nd pager listed below: User placing orders pager: [phone] LAST 3: Collection DT Specimen Test Name [...] ESTIMATED GFR(eGF 44 L Ref: >=60 Allergies: ([place] only) SIMVASTATIN (Feb 29, 2004) CEPHALEXIN (Mar 01, 2004) To see allergies from all [facility] locations click Re ports tab>Remote Data>All Available Sites>Clinical Reports>Aller gies. Report Status: Verified Date Reported: MAY 06, 2022 Date Verified: MAY 06, 2022 Sales Office Manager E-Sig: Report: CT CERVICAL SPINE W/O CONTRAST HISTORY:falls, blood thinner, AMS, seizure NUMBER OF IMAGES:770 COMPARISON: None available. TECHNIQUE: A non contrast CT of the cervical sp [facility] [...] tissues: 11 mm subcutaneous cyst in the [facility] upper neck. Impression: -Motion artifact limits the exam. -Given this limitation, no acute osseous abnorm ality. -Moderate multilevel degenerative change throug hout the cervical spine. -Ancillary findings, above. READING PHYSICIAN: Eduin Donaldson M.D. -[phone] 05/06/2022 12:33 [facility] National Teleradiology Program [phone] (For Medical Practitioner Use Only ) Attention Patients / Veterans: If you have ques tions or concerns about these test results, please contact your [facility] provider or primary care team. Primary Interpreting [...] the Encounter. The data comes from all [place] treatment facilities. Date/Time Pathology Report Provider Source May 09, 2022 05:30 AM LR MICROBIOLOGY REPORT: [facility] Reporting Lab: [facility] [CLIA# [id number]] [place] [address] Accession [UID]: [id number] [[id number]] Receiv ed: May 09, 2022@01:35 Collection sample: BLOOD Collection date: Apr 05:30 Provider: CODIE LEON Comment on specimen: LEFT ARM, RECEIVED 2 BLOOD CULTURE BOTTLES Test(s) ordered: CULTURE & SUSCEPTIBILITY...... 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 R TRIMETH/SULFA................. S TETRACYCLINE.................. S CLINDAMYCIN................... S RIFAMPIN...................... S VANCOMYCIN.................... S Bacteriology Remark(s): VANCOMYCIN SHAMIKA: <=0.5 ug/mL THIS REPORT IS FINAL =--=--=--=--=--=--=--=--=--=--=--=--=--= --=--=--=--=--=--=--=--=--=--=--=--=-- Performing Laboratory: Bacteriology Report Performed By: [facility] [CLIA# [id number]] [place] [address] May 08, 2022 03:23 PM LR MICROBIOLOGY REPORT: [facility] Reporting Lab: [facility] [CLIA# [id number]] [place] [address] Accession [UID]: [id number] [[id number]] Receiv ed: May 08, 2022@15:41 Collection sample: BLOOD Collection date: Apr 15:23 Provider: CODIE LEON Comment on specimen: LEFT ARM, RECEIVED 2 BLOOD CULTURE BOTTLES Test(s) ordered: CULTURE & SUSCEPTIBILITY...... completed: May 10, 2022 * BACTERIOLOGY FINAL REPORT => May 10, 2022 16:3 1 TECH CODE: [id number] CULTURE RESULTS: GROWTH SAME THAT OF ANOTHER CULTURE Comment: FOR SUSCEPTIBILITY REPORT SEE PREVIOUS POSITIVE SAME MB 22 [id number] ( 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 from Anaerobic bottle ) ( Recovered from Aerobic bottle ) Bacteriology Remark(s): THIS REPORT IS FINAL =--=--=--=--=--=--=--=--=--=--=--=--=--= --=--=--=--=--=--=--=--=--=--=--=--=-- Performing Laboratory: Bacteriology Report Performed By: [facility] [CLIA# [id number]] [place] [address] May 08, 2022 03:21 PM LR MICROBIOLOGY REPORT: [facility] Reporting Lab: [facility] [CLIA# [id number]] [place] [address] Accession [UID]: [id number] [[id number]] Receiv ed: May 08, 2022@15:40 Collection sample: BLOOD Collection date: Apr 15:21 Provider: CODIE LEON Comment on specimen: RT ARM, RECEIVED 2 BLOOD CU LTURE BOTTLES Test(s) ordered: CULTURE & SUSCEPTIBILITY...... completed: May 10, 2022 * BACTERIOLOGY FINAL REPORT => May 10, 2022 16:3 1 TECH CODE: [id number] CULTURE RESULTS: GROWTH SAME THAT OF ANOTHER CULTURE Comment: FOR SUSCEPTIBILITY REPORT SEE PREVIOUS POSITIVE SAME MB 22 19980 ( 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 from Anaerobic bottle ) ( Recovered from Aerobic bottle ) Bacteriology Remark(s): THIS REPORT IS FINAL =--=--=--=--=--=--=--=--=--=--=--=--=--= --=--=--=--=--=--=--=--=--=--=--=--=-- Performing Laboratory: Bacteriology Report Performed By: [facility] [CLIA# [id number]] [place] [address] May 07, 2022 05:30 AM LR MICROBIOLOGY REPORT: [facility] Reporting Lab: [facility] [CLIA# [id number]] [place] [address] Accession [UID]: [id number] [[id number]] Receiv ed: May 07, 2022@01:35 Collection sample: [...] REPORT SEE PREVIOUS POSITIVE SAME MB 22 71021 ( 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 from Aerobic bottle ) ( Recovered from Anaerobic bottle ) Bacteriology Remark(s): THIS REPORT IS FINAL =--=--=--=--=--=--=--=--=--=--=--=--=--= --=--=--=--=--=--=--=--=--=--=--=--=-- Performing Laboratory: Bacteriology Report Performed By: [facility] [CLIA# [id number]] [place] [address] May 06, 2022 10:51 AM LR MICROBIOLOGY REPORT: [facility] Reporting Lab: [facility] [CLIA# [id number]] [place] [address] Accession [UID]: [id number] [[id number]] Receiv ed: May 06, 2022@11:32 Collection sample: [...] --=--=--=--=--=--=--=--=--=--=--=--=-- Performing Laboratory: Bacteriology Report Performed By: [facility] [CLIA# [id number]] [place] [address] May 06, 2022 10:34 AM LR MICROBIOLOGY REPORT: [facility] Reporting Lab: [facility] [CLIA# [id number]] [place] [address] Accession [UID]: [id number] [[id number]] Receiv ed: May 06, 2022@10:51 Collection sample: BLOOD Collection date: Apr 10:34 Provider: MODESTA VILLANUEVA Comment on specimen: RECEIVED 2 BLOOD CULTURE [facility] Test(s) ordered: CULTURE & SUSCEPTIBILITY...... 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 [...] reported to Codie Leon MD 05/08/22 @0824 -[facility] THIS REPORT IS FINAL =--=--=--=--=--=--=--=--=--=--=--=--=--= --=--=--=--=--=--=--=--=--=--=--=--=-- Performing Laboratory: Bacteriology Report Performed By: [facility] [CLIA# [id number]] [place] [address] May 06, 2022 10:00 AM LR MICROBIOLOGY [facility]PORT: [facility] Reporting Lab: [facility] [CLIA# [id number] 147] [place] [address] Accession [UID]: [id number] [[id number]] Receiv ed: May 06, 2022@10:41 Collection sample: [...] REPORT SEE PREVIOUS POSITIVE SAME MB 22 [id number] ( 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 from Anaerobic bottle ) ( Recovered from Aerobic bottle ) Bacteriology Remark(s): THIS REPORT IS FINAL =--=--=--=--=--=--=--=--=--=--=--=--=--= --=--=--=--=--=--=--=--=--=--=--=--=-- Performing Laboratory: Bacteriology Report Performed By: [facility] [CLIA# [id number]] [place] [address]
--- OUTSIDE RECORDS SUMMARY | 2022-05-15 09:22 | XMS_ITS | Encounter Summary ---
:1935 Author Organization [facility] rs Address [address] [place] [address] Support Name Relationship Address Phone WADE LORENZO Unavailable [id number] [place] [address] WADE LORENZO Unavailable [address] [place] [address] TREYGEORGE ARACELI Unavailable [address] [place] [address] GOMARILIA VAZQUEZA Unavailable [address] [place] [address] Insurance Providers: All historical and current Section [...] [place] M[place] Aug 19, [id number] [facility] (WNR) ADVANTAGE (WNR) 2017 8 [id number] [phone] [facility] [place] MED[place] M[place] Aug 19, [id number] [facility] (WNR) ADVANTAGE (WNR) 2016 8 [id number] [phone] [facility] 1 Selected Encounter This section includes the information on record at [place] for the Encounter. 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 Date/Time Primary/Secondary Diagnosis Name Provider Source Diagnosis May 11, 2022 PRIMARY Other [facility] 10:58 AM encephalopathy [facility] May 11, 2022 SECONDARY Bacteremia [facility] 10:58 AM [facility]CS May 11, 2022 SECONDARY Delirium due to [facility] 10:58 AM known physiological [facility] condition May 11, 2022 SECONDARY Other seizures [facility] 10:58 AM H[facility] Plan of Treatment: Future Appointments (+ 6 months) and Future Tests (+/- 45 days) The Plan of Treatment section includes future care activities for the patient from [facility] [place] [facility] This section includes future appointments and future orders which are active, pending orscheduled.Future Appointments This section includes appointments that were scheduled to occur 6 months from the date of the Encounter, up to a maximum of 20 appointments. The data comes from all [place] treatment facilities. Appointment Date/Time Appointment Type Appointment Facili ty Name Jul 23, 2022 08:00 AM AMBULATORY - NEUROLOGY [facility] Active, Pending, and [...] The data comes from all [place] treatment [facility]. Test Date/Time Test Type Test Details Facility Name Apr 30, 2022 08:21 Laboratory - Chemistry URINALYSIS URINE WC ON CE [facility] AM Order Apr 30, 2022 08:21 Laboratory - CULTURE & SUSCEPTIBILITY [facility] AM Microbiology Order URINE May 06, 2022 12:00 Laboratory - Blood ABO/RH - LAB BLOOD [facility] AM Bank Order May 06, 2022 10:11 Laboratory - Blood TYPE & SCREEN - LAB [facility] Bank Order BLOOD May 06, 2022 10:27 Pharmacy [facility] AM Medication Order May 06, 2022 10:28 [facility] AM Infusion Order May 06, 2022 10:34 Pharmacy [facility] AM Infusion Order May 06, 2022 10:41 [facility] AM Infusion Order May 06, 2022 12:15 Pharmacy - [facility] PM Medication Order May 06, 2022 01:31 Pharmacy - [facility] PM Medication Order May 06, 2022 04:49 Pharmacy - Clinic [facility] PM Medication Order May 07, 2022 01:00 Laboratory - CULTURE & SUSCEPTIBILITY [facility] PM Microbiology Order BLOOD WC ONCE May 11, 2022 09:07 Laboratory - CULTURE & SUSCEPTIBILITY [facility] AM Microbiology Order BLOOD WC May 11, 2022 09:07 Laboratory - CULTURE & SUSCEPTIBILITY [facility] AM Microbiology Order BLOOD WC May 11, 2022 09:38 Laboratory - Chemistry EOSINOPHIL SMEAR,URINE [facility] AM Order URINE WC ONCE May 11, 2022 09:38 Laboratory - Chemistry FENA URINE WC ONCE [facility] AM Order May 11, 2022 09:38 Laboratory - Chemistry URINALYSIS URINE WC ON CE [facility] AM Order Lab Results: +/- 30 [...] Reference Range Comment May 11, 2022 11:13 [facility] FINGERSTICK GLUCOSE Speci men Type: BLOOD AM Comment: Mark casillas Nurse Notified Ordering Provid er: CODIE LEON Report Released Date/Time: May 11, 2022 11:53 AM Reporting Lab: [facility] [address] [facility] [address] Performing Lab: [facility] [address] [facility] [address] FINGERSTICK GLUCOSE 367 H 70-100 May 11, 2022 07:05 [facility] BASIC METABOLIC Specimen Type: PLASMA AM PANEL+MG No comment enter ed. Ordering Provid er: OG DIAL Report Released Date/Time: May 11, 2022 04:46 AM Reporting Lab: [facility] [address] [facility] [address] Performing Lab: [facility] [address] [facility] [address] CREATININE 1.6 H 0.7-1.2 UREA NITROGEN 28 H 8-26 GLUCOSE 396 H 70-100 SODIUM 150 H 136-145 POTASSIUM 3.7 3.5-5.1 CHLORIDE 120 H 98-107 CO2 23 22-29 CALCIUM 8.4 8.4-10.2 MAGNESIUM 2.1 1.6-2.6 ANION GAP 7 5-15 CREAT EGFR(CKD-EPI) 42 L >60 May 11, 2022 07:05 [facility] LIVER FUNCTION TESTS Spec imen Type: PLASMA AM No comment enter ed. Ordering Provid er: CODIE LEON Report Released Date/Time: May 11, 2022 09:08 AM Reporting Lab: [facility] [address] [facility] [address] Performing Lab: [facility] [address] [facility] [address] BILIRUBIN, TOTAL 1.6 H 0.2-1.2 ALKALINE PHOSPHATASE 102 40-150 ALT/SGPT 42 <55 AST/SGOT 30 <34 GAMMA GTP 52 <64 DIR. BILIRUBIN 1.2 H <0.5 May 11, 2022 07:05 AM [facility] CBC Specim en Type: BLOOD No comment enter ed. Ordering Provid er: OG DIAL Report Released Date/Time: May 11, 2022 04:46 AM Reporting Lab: [facility] [address] [facility] [address] Performing Lab: [facility] [address] [facility] [address] WBC 15.93 H 4.0-11.0 RBC 3.60 L 4.6-6.2 HGB 11.2 L 13.5-17.9 HCT 35.3 L 41-54 MCV 98.1 80-100 MCH 31.1 27-33 MCHC 31.7 L 32.0-37.5 PLT 231 150-400 MPV 11.2 H 7.4-10.4 RDW 15.2 H 11.5-14.5 May 11, 2022 07:05 AM [facility] BNP Specim en Type: PLASMA No comment enter ed. Ordering Provid er: CODIE LEON Report Released Date/Time: May 11, 2022 09:15 AM Reporting Lab: [facility] [address] [facility] [address] Performing Lab: [facility] [address] [facility] [address] BNP 59 <99 May 11, 2022 07:05 AM [facility] CK,TOTAL Specim en Type: PLASMA No comment enter ed. Ordering Provid er: CODIE LEON Report Released Date/Time: May 11, 2022 09:08 AM Reporting Lab: [facility] [address] [facility] [address] Performing Lab: [facility] [address] [facility] [address] CK,TOTAL 16 L 39-208 May 11, 2022 06:14 [facility] FINGERSTICK GLUCOSE Speci men Type: BLOOD AM Comment: Mark casillas Nurse Notified Ordering Provid er: CODIE LEON Report Released Date/Time: May 11, 2022 06:42 AM Reporting Lab: [facility] [address] [facility] [address] Performing Lab: [facility] [address] [facility] [address] FINGERSTICK GLUCOSE 345 H 70-100 May 11, 2022 02:24 [facility] FINGERSTICK GLUCOSE Speci men Type: BLOOD AM Comment: Mark casillas Ordering Provid er: CODIE LEON Report Released Date/Time: May 11, 2022 02:44 AM Reporting Lab: [facility] [address] [facility] [address] Performing Lab: [facility] [address] [facility] [address] FINGERSTICK GLUCOSE 375 H 70-100 May 10, 2022 08:38 [facility] FINGERSTICK GLUCOSE Speci men Type: BLOOD PM Comment: Mark casillas Ordering Provid er: CODIE LEON Report Released Date/Time: May 11, 2022 12:31 AM Reporting Lab: [facility] [address] [facility] [address] Performing Lab: [facility] [address] [facility] [address] FINGERSTICK GLUCOSE 346 H 70-100 May 10, 2022 05:05 [facility] FINGERSTICK GLUCOSE Speci men Type: BLOOD PM Comment: Mark casillas Nurse Notified Ordering Provid er: CODIE LEON Report Released Date/Time: May 10, 2022 11:50 PM Reporting Lab: [facility] [address] [facility] [address] Performing Lab: [facility] [address] [facility] [address] FINGERSTICK GLUCOSE 245 H 70-100 May 10, 2022 02:00 [facility] VANCOMYCIN (TROUGH) Speci men Type: PLASMA PM No comment enter ed. Ordering Provid er: CODIE LEON Report Released Date/Time: May 11, 2022 01:34 AM Reporting Lab: [facility] [address] Performing Lab: [facility] [address] VANCOMYCIN (TROUGH) 31.8 H 10.0-15.0 May 10, 2022 [facility] BASIC METABOLIC Specimen Typ e: PLASMA 02:00 PM PANEL+MG No comment enter ed. Ordering Provid er: CODIE LEON Report Released Date/Time: May 11, 2022 01:34 AM Reporting Lab: [facility] [address] Performing Lab: [facility] [address] CREATININE 1.1 .7-1.2 UREA NITROGEN 22 8-26 GLUCOSE 279 H 70-100 SODIUM 150 H 136-145 POTASSIUM 3.2 L 3.5-5.1 CHLORIDE 116 H 98-107 CO2 23 22-29 CALCIUM 8.5 8.4-10.2 MAGNESIUM 2.0 1.6-2.6 ANION GAP 11 5-15 CREAT EGFR(CKD-EPI) 65 >60 May 10, 2022 01:20 PM [facility] CBC & DIFF Specim en Type: BLOOD Comment: Automa nola Differential Performed Ordering Provid er: MD ESTEBAN Report Released Date/Time: May 10, 2022 08:52 PM Reporting Lab: [facility] [address] Performing Lab: [facility] [address] WBC 16.24 H 4.0-11.0 RBC 3.76 L [...] 0.28 H 0-0.1 May 10, 2022 11:07 [facility] FINGERSTICK GLUCOSE Speci men Type: BLOOD AM Comment: Mark casillas Nurse Notified Ordering Provid er: CODIE LEON Report Released Date/Time: May 11, 2022 12:31 AM Reporting Lab: [facility] [address] [facility] [address] Performing Lab: [facility] [address] [facility] [address] FINGERSTICK GLUCOSE 253 H 70-100 May 10, 2022 06:16 [facility] FINGERSTICK GLUCOSE Speci men Type: BLOOD AM Comment: Mark casillas Nurse Notified Ordering Provid er: CODIE LEON Report Released Date/Time: May 10, 2022 11:50 PM Reporting Lab: [facility] [address] [facility] [address] Performing Lab: [facility] [address] [facility] [address] FINGERSTICK GLUCOSE 271 H 70-100 May 09, 2022 09:07 [facility] FINGERSTICK GLUCOSE Speci men Type: BLOOD PM Comment: Mark casillas Ordering Provid er: CODIE LEON Report Released Date/Time: May 10, 2022 11:50 PM Reporting Lab: [facility] [address] [facility] [address] Performing Lab: [facility] [address] [facility] [address] FINGERSTICK GLUCOSE 209 H 70-100 May 09, 2022 05:33 [facility] FINGERSTICK GLUCOSE Speci men Type: BLOOD PM Comment: Mark casillas Nurse Notified Ordering Provid er: CODIE LEON Report Released Date/Time: May 09, 2022 05:53 PM Reporting Lab: [facility] [address] [facility] [address] Performing Lab: [facility] [address] [facility] [address] FINGERSTICK GLUCOSE 251 H 70-100 May 09, 2022 02:09 [facility] VANCOMYCIN (PEAK) Specime n Type: SERUM PM No comment enter ed. Ordering Provid er: AMARIS DE JESUS Report Released Date/Time: May 09, 2022 09:33 AM Reporting Lab: [facility] [address] [facility] [address] Performing Lab: [facility] [address] VANCOMYCIN (PEAK) 24.2 20.0-40.0 May 09, 2022 11:19 [facility] FINGERSTICK GLUCOSE Speci men Type: BLOOD AM Comment: Mark casillas Nurse Notified Ordering Provid er: CODIE LEON Report Released Date/Time: May 09, 2022 11:38 AM Reporting Lab: [facility] [address] Performing Lab: [facility] [address] FINGERSTICK GLUCOSE 240 H 70-100 May 09, 2022 08:13 [facility] VANCOMYCIN (TROUGH) Speci men Type: SERUM AM No comment enter ed. Ordering Provid er: AMARIS DE JESUS Report Released Date/Time: May 08, 2022 11:14 AM Reporting Lab: [facility] [address] [facility] [address] Performing Lab: [facility] [address] VANCOMYCIN (TROUGH) 16.1 H 10.0-15.0 May 09, 2022 05:33 AM [facility] CBC & DIFF Specim en Type: BLOOD Comment: Automa nola Differential Performed Ordering Provid er: CODIE LEON Report Released Date/Time: May 08, 2022 05:27 PM Reporting Lab: [facility] [address] [facility] [address] Performing Lab: [facility] [address] WBC 14.92 H 4.0-11.0 RBC 3.41 L [...] GRAN 0.16 H 0-0.1 May 09, 2022 [facility] COMPREHENSIVE METABOLIC Spec imen Type: PLASMA 05:32 AM PANEL+MG No comment enter ed. Ordering Provid er: CODIE LEON Report Released Date/Time: May 08, 2022 05:27 PM Reporting Lab: [facility] [address] [facility] [address] Performing Lab: [facility] [address] [facility] [address] CREATININE 1.2 0.7-1.2 UREA NITROGEN 25 8-26 [...] 59 L >60 May 09, 2022 05:16 [facility] FINGERSTICK GLUCOSE Speci men Type: BLOOD AM Comment: Mark casillas Nurse Notified Ordering Provid er: CODIE LEON Report Released Date/Time: May 09, 2022 07:27 AM Reporting Lab: [facility] [address] [facility] [address] Performing Lab: [facility] [address] [facility] [address] FINGERSTICK GLUCOSE 295 H 70-100 May 08, 2022 09:32 PM [facility] EXTRA MINT TUBE Specim en Type: PLASMA No comment enter ed. Ordering Provid er: MD ESTEBAN Report Released Date/Time: May 08, 2022 09:32 PM Reporting Lab: [facility] [address] [facility] [address] Performing Lab: [facility] [address] [facility] [address] EXTRA MINT TUBE RECEIVED May 08, 2022 09:32 PM [facility] EXTRA PURPLE TUBE Spec imen Type: BLOOD No comment enter ed. Ordering Provid er: MD ESTEBAN Report Released Date/Time: May 08, 2022 09:32 PM Reporting Lab: [facility] [address] [facility] [address] Performing Lab: [facility] [address] [facility] [address] EXTRA PURPLE TUBE RECEIVED May 08, 2022 09:32 [facility] EXTRA GOLD GEL TUBE Speci men Type: SERUM PM No comment enter ed. Ordering Provid er: MD ESTEBAN Report Released Date/Time: May 08, 2022 09:32 PM Reporting Lab: [facility] [address] [facility] [address] Performing Lab: [facility] [address] [facility] [address] EXTRA GOLD GEL TUBE RECEIVED May 08, 2022 09:32 PM [facility] EXTRA BLUE TUBE Specim en Type: PLASMA No comment enter ed. Ordering Provid er: MD ESTEBAN Report Released Date/Time: May 08, 2022 09:32 PM Reporting Lab: [facility] [address] [facility] [address] Performing Lab: [facility] [address] [facility] [address] EXTRA BLUE TUBE RECEIVED May 08, 2022 09:32 PM [facility] EXTRA BRASWELL TUBE Specim en Type: PLASMA No comment enter ed. Ordering Provid er: MD ESTEBAN Report Released Date/Time: May 08, 2022 09:37 PM Reporting Lab: [facility] [address] [facility] [address] Performing Lab: [facility] [address] [facility] [address] EXTRA BRASWELL TUBE RECEIVED May 08, 2022 09:32 PM [facility] LACTIC ACID Specim en Type: PLASMA No comment enter ed. Ordering Provid er: OG DIAL Report Released Date/Time: May 08, 2022 09:49 PM Reporting Lab: [facility] [address] [facility] [address] Performing Lab: [facility] [address] [facility] [address] LACTIC ACID 2.5 H 0.5-2.2 May 08, 2022 09:32 PM [facility] BNP Specim en Type: PLASMA No comment enter ed. Ordering Provid er: OG DIAL Report Released Date/Time: May 08, 2022 09:50 PM Reporting Lab: [facility] [address] Performing Lab: [facility] [facility] [address] BNP 897 H <99 May 08, 2022 09:32 PM [facility] CBC Specim en Type: BLOOD No comment enter ed. Ordering Provid er: OG DIAL Report Released Date/Time: May 08, 2022 09:50 PM Reporting Lab: [facility] [address] [address] [facility] [address] Performing Lab: [facility] [address] [facility] [address] WBC 18.54 H 4.0-11.0 RBC 3.68 L 4.6-6.2 HGB 11.5 L 13.5-17.9 HCT 35.1 L 41-54 MCV 95.4 80-100 MCH 31.3 27-33 MCHC 32.8 32.0-37.5 PLT 221 150-400 MPV 11.1 H 7.4-10.4 RDW 14.9 H 11.5-14.5 May 08, 2022 09:32 PM [facility] BLOOD GASES Specim en Type: VENOUS BLOOD Comment: O2 THE RAPY = 3L PM Ordering Provid er: OG DIAL Report Released Date/Time: May 08, 2022 09:50 PM Reporting Lab: [facility] [place] [facility] [address] Performing Lab: [facility] [place] [facility] [address] PH 7.36 7.33-7.43 PCO2 47 41-51 BICARBONATE 24.4 21.0-30.0 PO2 31 L 35-40 OXYGEN SATURATION 54.7 L 70.0-75.0 PH(TEMP CORRECTED) 7.37 7.33-7.43 PCO2(TEMP CORRECTED) 46 41-51 PO2(TEMP CORRECTED) 31 L 35-40 PATIENT TEMPERATURE 36.7 May 08, 2022 [facility] COMPREHENSIVE METABOLIC Spec imen Type: PLASMA 09:32 PM PANEL+MG No comment enter ed. Ordering Provid er: OG DIAL Report Released Date/Time: May 08, 2022 09:50 PM Reporting Lab: [facility] [address] [facility] [address] Performing Lab: [facility] [address] [facility] [address] CREATININE 1.3 H 0.7-1.2 UREA NITROGEN 26 [...] 54 L >60 May 08, 2022 08:27 [facility] FINGERSTICK GLUCOSE Speci men Type: BLOOD PM Comment: Mark casillas Nurse Notified Ordering Provid er: CODIE LEON Report Released Date/Time: May 08, 2022 08:55 PM Reporting Lab: [facility] [address] [facility] [address] Performing Lab: [facility] [address] [facility] [address] FINGERSTICK GLUCOSE 272 H 70-100 May 08, 2022 06:56 [facility] FINGERSTICK GLUCOSE Speci men Type: BLOOD PM Comment: Mark casillas Ordering Provid er: CODIE LEON Report Released Date/Time: May 08, 2022 07:08 PM Reporting Lab: [facility] [address] [facility] [address] Performing Lab: [facility] [address] [facility] [address] FINGERSTICK GLUCOSE 262 H 70-100 May 08, 2022 04:50 [facility] FINGERSTICK GLUCOSE Speci men Type: BLOOD PM Comment: Nurse Notified Ordering Provid er: CODIE LEON Report Released Date/Time: May 08, 2022 05:14 PM Reporting Lab: [facility] [address] [facility] [address] Performing Lab: [facility] [address] [facility] [address] FINGERSTICK GLUCOSE 330 H 70-100 May 08, 2022 11:21 [facility] FINGERSTICK GLUCOSE Speci men Type: BLOOD AM Comment: Mark casillas Nurse Notified Ordering Provid er: CODIE LEON Report Released Date/Time: May 08, 2022 11:51 AM Reporting Lab: [facility] [address] [facility] [address] Performing Lab: [facility] [address] [facility] [address] FINGERSTICK GLUCOSE 231 H 70-100 May 08, 2022 07:25 AM [facility] CBC & DIFF Specim en Type: BLOOD Comment: Automa nola Differential Performed Ordering Provid er: BETO AYALA Report Released Date/Time: May 07, 2022 12:28 PM Reporting Lab: [facility] [address] [facility] [address] Performing Lab: [facility] [address] [facility] [address] WBC 16.29 H 4.0-11.0 RBC 3.38 L [...] GRAN 0.26 H 0-0.1 May 08, 2022 [facility] PROTHROMBIN TIME/INR Specime n Type: PLASMA 07:25 AM No comment enter ed. Ordering Provid er: BETO AYALA Report Released Date/Time: May 07, 2022 12:28 PM Reporting Lab: [facility] [address] [facility] [address] Performing Lab: [facility] [address] [facility] [address] .INR 1.2 H 0.8-1.1 .PT 14.2 H 9.4-12.5 May 08, 2022 [facility] COMPREHENSIVE METABOLIC Spec imen Type: PLASMA 07:25 AM PANEL+MG No comment enter ed. Ordering Provid er: BETO AYALA Report Released Date/Time: May 07, 2022 12:28 PM Reporting Lab: [facility] [address] [facility] [address] Performing Lab: [facility] [address] [facility] [address] CREATININE 1.1 0.7-1.2 UREA NITROGEN 27 H [...] EGFR(CKD-EPI) 65 >60 May 08, 2022 06:53 [facility] FINGERSTICK GLUCOSE Speci men Type: BLOOD AM Comment: Mark R sonja Ordering Provid er: CODIE LEON Report Released Date/Time: May 08, 2022 07:18 AM Reporting Lab: [facility] [address] [facility] [address] Performing Lab: [facility] [address] [facility] [id number] FINGERSTICK GLUCOSE 276 H 70-100 May 07, 2022 08:36 [facility] FINGERSTICK GLUCOSE Speci men Type: BLOOD PM Comment: Nurse Notified Ordering Provid er: CODIE LEON Report Released Date/Time: May 08, 2022 12:29 AM Reporting Lab: [facility] [address] [facility] [id number] Performing Lab: [facility] [address] [facility] [address] FINGERSTICK GLUCOSE 282 H 70-100 May 07, 2022 07:04 PM [facility] LACTIC ACID Specim en Type: PLASMA No comment enter ed. Ordering Provid er: BETO AYALA Report Released Date/Time: May 07, 2022 06:28 PM Reporting Lab: [facility] [address] [facility] [id number] Performing Lab: [facility] [address] [facility] [address] LACTIC ACID 2.0 0.5-2.2 May 07, 2022 04:46 [facility] FINGERSTICK GLUCOSE Speci men Type: BLOOD PM Comment: Nurse Notified Ordering Provid er: BETO AYALA Report Released Date/Time: May 07, 2022 05:00 PM Reporting Lab: [facility] [address] [facility] [address] Performing Lab: [facility] [address] [facility] [address] FINGERSTICK GLUCOSE 274 H 70-100 May 07, 2022 12:47 [facility] [facility] FINGERSTICK GLUCOSE Speci men Type: BLOOD PM Comment: Mark casillas Nurse Notified Ordering Provid er: BETO AYALA Report Released Date/Time: May 07, 2022 05:32 PM Reporting Lab: [facility] [address] [facility] [address] Performing Lab: [facility] [address] [facility] [address] FINGERSTICK GLUCOSE 309 H 70-100 May 07, 2022 06:35 [facility] FINGERSTICK GLUCOSE Speci men Type: BLOOD AM Comment: Mark casillas Nurse Notified Ordering Provid er: GAYLA DOMINGUEZ Report Released Date/Time: May 07, 2022 06:46 AM Reporting Lab: [facility] [address] [facility] [address] Performing Lab: [facility] [address] [facility] [address] FINGERSTICK GLUCOSE 352 H 70-100 May 07, 2022 06:15 AM [facility] ALBUMIN Specim en Type: PLASMA No comment enter ed. Ordering Provid er: GAYLA DOMINGUEZ Report Released Date/Time: May 06, 2022 06:33 PM Reporting Lab: [facility] [address] [facility] [address] Performing Lab: [facility] [address] [facility] [address] ALBUMIN 3.0 L 3.5-5.2 May 07, 2022 [facility] COMPREHENSIVE METABOLIC Spec imen Type: PLASMA 06:15 AM PANEL+MG No comment enter ed. Ordering Provid er: GAYLA DOMINGUEZ Report Released Date/Time: May 06, 2022 09:11 PM Reporting Lab: [facility] [address] Performing Lab: [facility] [address] CREATININE 1.2 0.7-1.2 UREA NITROGEN 25 8-26 [...] L >60 May 07, 2022 06:15 AM [facility] CBC & DIFF Specim en Type: BLOOD Comment: Manual Differential Performed Ordering Provid er: GAYLA DOMINGUEZ Report Released Date/Time: May 06, 2022 09:11 PM Reporting Lab: [facility] [address] Performing Lab: [facility] [address] WBC 20.25 H 4.0-11.0 RBC 3.54 L [...] NORMOCYTIC, NORMOCHROMIC May 07, 2022 12:19 AM [facility] LACTIC ACID Specim en Type: PLASMA No comment enter ed. Ordering Provid er: GAYLA DOMINGUEZ Report Released Date/Time: May 06, 2022 07:13 PM Reporting Lab: [facility] [address] [facility] [address] Performing Lab: [facility] [address] [facility] [address] LACTIC ACID 2.7 H 0.5-2.2 May 06, 2022 10:45 [facility] FINGERSTICK GLUCOSE Speci men Type: BLOOD PM Comment: Mark casillas Nurse Notified Ordering Provid er: GAYLA DOMINGUEZ Report Released Date/Time: May 07, 2022 12:08 AM Reporting Lab: [facility] [address] [facility] [address] Performing Lab: [facility] [address] [facility] [address] FINGERSTICK GLUCOSE 320 H 70-100 May 06, 2022 06:53 [facility] MRSA SURVL NARES Specimen Type: NARES PM DNA No comment enter ed. Ordering Provid er: GAYLA DOMINGUEZ Report Released Date/Time: May 06, 2022 06:33 PM Reporting Lab: [facility] [address] [facility] [address] Performing Lab: [facility] [address] [facility] [address] MRSA SURVL NARES DNA POSITIVE HH Negative May 06, 2022 06:51 PM [facility] LACTIC ACID Specim en Type: PLASMA No comment enter ed. Ordering Provid er: GAYLA DOMINGUEZ Report Released Date/Time: May 06, 2022 06:04 PM Reporting Lab: [facility] [address] [facility] [address] Performing Lab: [facility] [address] [facility] [address] LACTIC ACID 3.1 H 0.5-2.2 May 06, 2022 06:51 [facility] CARDIAC TROPONIN I Specim en Type: PLASMA PM No comment enter ed. Ordering Provid er: GAYLA DOMINGUEZ Report Released Date/Time: May 06, 2022 06:05 PM Reporting Lab: [facility] [address] [facility] [address] Performing Lab: [facility] [address] [facility] [address] CARDIAC TROPONIN I <0.028 <0.028 May 06, 2022 06:51 [facility] EXTRA GOLD GEL TUBE Speci men Type: SERUM PM No comment enter ed. Ordering Provid er: GAYLA DOMINGUEZ Report Released Date/Time: May 06, 2022 06:52 PM Reporting Lab: [facility] [address] [facility] [address] Performing Lab: [facility] [address] [facility] [address] EXTRA GOLD GEL TUBE RECEIVED May 06, 2022 06:51 [facility] C-REACTIVE PROTEIN Specim en Type: PLASMA PM No comment enter ed. Ordering Provid er: GAYLA DOMINGUEZ Report Released Date/Time: May 06, 2022 09:29 PM Reporting Lab: [facility] [address] [facility] [address] Performing Lab: [facility] [address] C-REACTIVE PROTEIN 392.40 H <5.00 May 06, 2022 10:51 AM [facility] URINALYSIS Specim en Type: URINE No comment enter ed. Ordering Provid er: MODESTA VILLANUEVA Report Released Date/Time: May 06, 2022 10:11 AM Reporting Lab: [facility] [address] Performing Lab: [facility] [address] URINE COLOR YELLOW SPECIFIC GRAVITY 1.020 1.003-1.035 [...] ESTERASE 500 NEGATIVE May 06, 2022 10:24 [facility] COVID-19 DIAGNOSTIC Speci men Type: NASOPHARYNGEAL AM PANEL (CEPHEID) Comment: Cephei d GeneXpert (618) Ordering Provid er: MODESTA VILLANUEVA Report Released Date/Time: May 06, 2022 10:11 AM Reporting Lab: [facility] [address] [facility] [address] Performing Lab: [facility] [address] COVID-19 (CEPHEID) Not Detected Not Dete cted May 06, 2022 10:20 AM [facility] POC ABG/LACTATE Specim en Type: VENOUS BLOOD No comment enter ed. Ordering Provid er: MODESTA VILLANUEVA Report Released Date/Time: May 06, 2022 10:22 AM Reporting Lab: [facility] [address] [facility] [address] Performing Lab: [facility] [address] [facility] [address] POC PH 7.410 7.31-7.41 POC PCO2 28.9 L 35.00-45.00 POC PO2 82 H 35.0-40.0 POC TCO2 19 L 24.0-29.0 POC HCO3 18.3 L 23.0-28.0 POC BE ECT -6 L -2 POC SO2 96 H 70-75 POC LACTATE 3.62 0.90-1.70 May 06, 2022 10:00 AM [facility] PHOSPHORUS Specim en Type: PLASMA No comment enter ed. Ordering Provid er: MODESTA VILLANUEVA Report Released Date/Time: May 06, 2022 10:11 AM Reporting Lab: [facility] [address] [facility] [address] Performing Lab: [facility] [address] [facility] [address] PHOSPHORUS 2.5 2.3-4.7 May 06, 2022 10:00 [facility] ACT PART THROMBO TIME Spe cimen Type: PLASMA AM No comment enter ed. Ordering Provid er: MODESTA VILLANUEVA Report Released Date/Time: May 06, 2022 10:11 AM Reporting Lab: [facility] [address] [facility] [address] Performing Lab: [facility] [address] [facility] [address] APTT 37.8 H 25.1-36.5 May 06, 2022 10:00 [facility] PROTHROMBIN TIME/INR Spec imen Type: PLASMA AM No comment enter ed. Ordering Provid er: MODESTA VILLANUEVA Report Released Date/Time: May 06, 2022 10:11 AM Reporting Lab: [facility] [address] [facility] [address] Performing Lab: [facility] [address] [facility] [address] .INR 2.5 H 0.8-1.1 .PT 29.2 H 9.4-12.5 May 06, 2022 10:00 [facility] CARDIAC TROPONIN I Specim en Type: PLASMA AM Comment: Critic al Value Reported To: RBOOKS COTE 05-06-2022 @1053 BY MBB. Critical value report confirmed. Ordering Provid er: MODESTA VILLANUEVA Report Released Date/Time: May 06, 2022 10:11 AM Reporting Lab: [facility] [address] [facility] [address] Performing Lab: [facility] [address] [facility] [address] CARDIAC TROPONIN I 0.035 HH <0.028 May 06, 2022 10:00 AM [facility] PROCALCITONIN Specim en Type: PLASMA No comment enter ed. Ordering Provid er: MODESTA VILLANUEVA Report Released Date/Time: May 06, 2022 10:11 AM Reporting Lab: [facility] [address] [facility] [address] Performing Lab: [facility] [address] [facility] [address] PROCALCITONIN 22.29 H <0.09 May 06, 2022 10:00 AM [facility] LIPASE Specim en Type: PLASMA No comment enter ed. Ordering Provid er: MODESTA VILLANUEVA Report Released Date/Time: May 06, 2022 10:11 AM Reporting Lab: [facility] [address] [facility] [address] Performing Lab: [facility] [address] [facility] [address] LIPASE <4 <60 May 06, 2022 [facility] COMPREHENSIVE METABOLIC Spec imen Type: PLASMA 10:00 AM PANEL+MG Comment: Manual Differential Performed Ordering Provid er: MODESTA VILLANUEVA Report Released Date/Time: May 06, 2022 10:11 AM Reporting Lab: [facility] [address] [facility] [address] Performing Lab: [facility] [address] [facility] [address] CREATININE 1.3 H 0.7-1.2 UREA NITROGEN 25 [...] 54 L >60 May 06, 2022 10:00 [facility] EXTRA GOLD GEL TUBE Speci men Type: SERUM AM No comment enter ed. Ordering Provid er: LINNEA RAND Report Released Date/Time: May 06, 2022 10:25 AM Reporting Lab: [facility] [address] [facility] [address] Performing Lab: [facility] [address] [facility] [address] EXTRA GOLD GEL TUBE RECEIVED May 06, 2022 10:00 AM [facility] CBC & DIFF Specim en Type: BLOOD Comment: Manual Differential Performed Ordering Provid er: MODESTA VILLANUEVA Report Released Date/Time: May 06, 2022 10:11 AM Reporting Lab: [facility] [address] [facility] [address] Performing Lab: [facility] [address] [facility] [address] WBC 18.82 H 4.0-11.0 RBC 3.70 L [...] .RBC MORPHOLOGY PRESENT May 06, 2022 09:46 [facility] FINGERSTICK GLUCOSE Speci men Type: BLOOD AM Comment: Mark casillas Nurse Notified Ordering Provid er: MODESTA VILLANUEVA Report Released Date/Time: May 06, 2022 09:59 AM Reporting Lab: [facility] [address] [facility] [address] Performing Lab: [facility] [address] [facility] [address] FINGERSTICK GLUCOSE 369 H 70-100 Apr 30, 2022 [facility] BASIC METABOLIC Specimen Typ e: PLASMA 09:17 AM PANEL+MG No comment enter ed. Ordering Provid er: BILL ROONEY Report Released Date/Time: Apr 30, 2022 08:21 AM Reporting Lab: [facility] [address] Performing Lab: [facility] [address] CREATININE 1.2 0.7-1.2 UREA NITROGEN 26 8-26 GLUCOSE 140 H 70-100 SODIUM 138 136-145 POTASSIUM 3.8 3.5-5.1 CHLORIDE 107 98-107 CO2 20 L 22-29 CALCIUM 9.4 8.4-10.2 MAGNESIUM 1.7 1.6-2.6 ANION GAP 11 5-15 CREAT EGFR(CKD-EPI) 59 L >60 Apr 30, 2022 09:17 AM [facility] CBC Specim en Type: BLOOD No comment enter ed. Ordering Provid er: BILL ROONEY Report Released Date/Time: Apr 30, 2022 08:21 AM Reporting Lab: [facility] [address] Performing Lab: [facility] [address] WBC 10.40 4.0-11.0 RBC 3.96 L 4.6-6.2 HGB 12.3 L 13.5-17.9 HCT 37.8 L 41-54 MCV 95.5 80-100 MCH 31.1 27-33 MCHC 32.5 32.0-37.5 PLT 286 150-400 MPV 10.1 7.4-10.4 RDW 14.6 H 11.5-14.5 Vital Signs: All taken on the encounter date This section contains inpatient and outpatient Vital Signs collected on the date of the Encounter. Date/Time Temperature Pulse Blood Respiratory SP02 Pain Height Weight [place] dy Source Pressure Rate Mass Index May 112021 08:39 [facility] May 11 [facility]2021 05:42 [facility] May 112021 03:33 [facility] May 112021 12:54 [facility] Social History: Smoking Status (Most current) [...] 09:30 AM VA-TOBACCO NEVER USED [place] [facility] Tobacco Use History This section includes a history of the smoking, or tobacco- related health factors, that were collected on or before the date of the Encounter. The data comes from the [facility] where the Encounter took place. Date/Time Smoking Status/Tobacco Use Comment [facility] Mar 22, 2021 07:45 AM VA-TOBACCO NEVER USED [place] [facility] Oct 02, 2019 10:02 AM VA-TOBACCO NEVER USED [place] [facility] May 21, 2018 09:05 AM VA-TOBACCO NEVER USED [place] [facility] December 25, 2017 06:14 PM [...] December 23, 2017 CLINICAL WARNING FARHAT [facility] May 11, 2003 ADVANCE DIRECTIVE BERT CASILLAS [facility] Radiology Reports: +/- 30 days of [...] 2022 09:46 CHEST 1 VIEW: SONJA OVALLES V A [facility] LUISANA STERLING [id number] -1935 M Exm Date: MAY 11, 2022@09:46 Req Phys: MALINICODIE Camron Pat Loc: OP Unknown /05-13-2022@05:05 Img Loc: MAIN X-RAY Service: PRIMARY CARE - MED OFFICE (Case [id number] COMPLETE) CHEST 1 VIEW (RAD Detailed) CPT:33135 Proc Modifiers : PORTABLE EXAM Reason for Study: resp distress Clinical History: [place] IS NOT under investigation for COVID-19 or is COVID-19 negative Respiratory distress Responsible provider name and phone number to notify for critical findings if other than u ser placing the order and pager listed below: User placing orde rs pager: [phone] cell LAST CREATININE 1.6 H (05/11/22) Report Status: Verified Date Reported: MAY 11, 2022 Date Verified: MAY 11, 2022 Linux Programmer E-Sig:/ES/SONJA OVALLES MD Report: CHEST 1 VIEW [...] Primary Interpreting Staff: SONJA OVALLES MD, RADIOLOGIST (Linux Programmer) /[facility] May 10, 2022 03:49 CT HEAD (P): RADIOLOGY,OUTSIDE [facility] PM LUISANA EDDY [id number] -1935 M SERVICE Exm Date: MAY 10, 2022@15:49 Req Phys: CODIE LEON Loc: OP Unknown /05-13-2022@05:05 Img Loc: CT IMAGING Service: PRIMARY CARE - MED OFFICE (Case [id number] COMPLETE) CT HEAD/BRAIN W/O CONTRAST (CT Detailed) CPT:82573 Reason for Study: CHANGE IN MENTAL STATUS Clinical History: CHANGE IN MENTAL STATUS. ORDER ADMINISTRATIVELY ENTERED FOLLOWING SYSTEM OUTAGE. Report Status: Verified Date Reported: MAY 10, 2022 Date Verified: MAY 10, 2022 Linux Programmer E-Sig: Report: CT HEAD/BRAIN W/O CONTRAST [PRINTSET] [...] study. READING PHYSICIAN: Akash Mccoy M.D. -[phone] 05/10/2022 17:35 PDT [facility] National Teleradiology Program [phone] (For Medical Practitioner Use Only ) Attention Patients / Veterans: If you have ques tions or concerns about these test results, please contact your o rdering provider or primary care team. Primary Interpreting Staff: RADIOLOGY,OUTSIDE SERVICE, Staff Physician / May 08, 2022 07:45 CT T-SPINE (P): RADIOLOGY,OUTSIDE [facility] LUISANA EDDY [id number] -1935 M SERVICE Exm Date: MAY 08, 2022@19:45 Req Phys: CODIE LEON Loc: OP Unknown /05-13-2022@05:05 Img Loc: CT IMAGING Service: PRIMARY CARE - MED OFFICE (Case [id number] COMPLETE) CT SPINE THORACIC W/O CONTR AST (CT Detailed) CPT:74492 Reason for Study: mrsa bacteremia, spinal surge ry - r/o abscess or discitis Clinical History: [place] IS NOT under investigation for COVID-19 or is COVID-19 negative Defer to radiologist for final CT protocol. Responsible provider name and phone number to n otify for critical findings if other than user placing the order a nd pager listed below: User placing orders pager: [phone] LAST 3: Collection DT Specimen Test Name [...] GFR (eGF 44 L Ref: >=60 Allergies: ([place] only) SIMVASTATIN (Feb 29, 2004) CEPHALEXIN (Mar 01, 2004) Report Status: Verified Date Reported: MAY 08, 2022 Date Verified: MAY 08, 2022 Linux Programmer E-Sig: Report: CT SPINE THORACIC W/O CONTRAST [PRINTSET] HISTORY:MRSA bacteremia NUMBER OF IMAGES:1151 COMPARISON: Correlation with images from recent CT abdomen and pelvis May 06, 2022 TECHNIQUE: A non contrast CT of the thoracic sp ine was performed at the local [place]. Images were subsequently sent to [facility] for interpretation. Axial, coronal and sagittal [...] thoracic level. READING PHYSICIAN: Luisana Webb MD -[id number] 05/08/2022 19:20 PDT [facility] National Teleradiology Program [phone] (For Medical Practitioner Use Only ) Attention Patients / Veterans: If you have ques tions or concerns about these test results, please contact your [place] provider or primary care team. Primary Interpreting Staff: RADIOLOGY,OUTSIDE SERVICE, Staff Physician / May 08, 2022 04:48 CHEST 1 VIEW: RADIOLOGY,OUTSIDE [facility] LUISANA EDDY [id number] -1935 M SERVICE Exm Date: MAY 08, 2022@16:48 Req Phys: CODIE LEON Loc: OP Unknown /05-13-2022@05:05 Img Loc: MAIN X-RAY Service: PRIMARY CARE - MED OFFICE (Case [id number] COMPLETE) CHEST 1 VIEW (RAD Detailed) CPT:61807 Proc Modifiers : PORTABLE EXAM Reason for Study: dyspnea Clinical History: IS NOT under investigation for COVID-19 or is COVID-19 negative acute worsening of dyspnea Responsible provider name and phone number to notify for critical findings if other than user placing the order and pager listed below: User placing orders pager: [phone] malini cell [phone] LAST CREATININE 1.1 (05/08/22) Report Status: Verified Date Reported: MAY 08, 2022 Date Verified: MAY 08, 2022 Linux Programmer E-Sig: Report: CHEST 1 VIEW HISTORY: dyspnea COMPARISON: 05/06/2022 TECHNIQUE: Frontal view(s) of the chest, submit nola to the [place] National Teleradiology Program (NTP) for interp retation. FINDINGS: Reduced lung volumes. Progressive cardiomegaly, and vascular congestion as well as diffuse interstitial prom inence with probable small effusions. Impression: Expiratory exam with findings of CHF and mild e santa READING PHYSICIAN: Nghia Menjivar M.D. -[id number] 10 05/08/2022 18:57 EDT [facility] National Teleradiology Program [phone] (For Medical Practitioner Use Only ) Attention Patients / Veterans: If you have ques tions or concerns about these test results, please contact your o rdering provider or primary care team. Primary Interpreting Staff: RADIOLOGY,OUTSIDE SERVICE, Staff Physician / May 07, 2022 10:29 CT HEAD (P): SHANI POLANCO [facility] LUISANA EDDY [id number] -1935 M Exm Date: MAY 07, 2022@10:29 Req Phys: BETO AYALA Loc: OP Unknown/0 05-13-2022@05:05 Img Loc: CT IMAGING Service: PRIMARY CARE - MED OFFICE (Case [id number] COMPLETE) CT HEAD/BRAIN W/O CONTRAST ( CT Detailed) CPT:81538 Reason for Study: seizure noted at [facility] Clinical History: IS NOT under investigation for COVID-19 or is COVID-19 negative Defer to radiologist for final CT protocol. Responsible provider name and phone number to n otify for critical findings if other than user placing the order a nd pager listed below: User placing orders pager: [phone] LAST 3: Collection DT Specimen Test Name [...] GFR (eGF 44 L Ref: >=60 Allergies: ([place] only) SIMVASTATIN (Feb 29, 2004) CEPHALEXIN (Mar 01, 2004) Report Status: Verified Date Reported: MAY 07, 2022 Date Verified: MAY 07, 2022 Linux Programmer E-Sig:/ES/SHANI POLANCO MD Report: EXAM: CT HEAD/BRAIN W/O CONTRAST HISTORY: seizure noted at [facility] Reason for Study: seizure noted at [facility] [place] IS NOT under investigation for COVID-19 or is COVID-19 negative Defer to radiologist for final CT prot ocol. Responsible provider name and phone number to notify for cr itical findings if other than user placing the order and pager lis nola below: User placing orders pager: [phone] LAST 3: Collecti on DT Specimen Test [...] Primary Interpreting Staff: SHANI POLANCO MD, RADIOLOGIST (Linux Programmer) /Javed May 06, 2022 11:40 CHEST 1 VIEW: RADIOLOGY,OUTSIDE [facility] AM LUISANA EDDY [id number] -1935 M SERVICE Exm Date: MAY 06, 2022@11:40 Req Phys: MODESTA VILLANUEVA Loc: [facility] EMERGENCY DEPT WALK-IN (Re Img Loc: MAIN X-RAY Service: Unknown (Case 73 COMPLETE) CHEST 1 VIEW (RAD Detailed) C PT:27120 Proc Modifiers : PORTABLE EXAM Reason for [...] pager listed below: User placing orders pager: [phone] LAST CREATININE 1.2 (04/30/22) Report Status: Verified Date Reported: MAY 06, 2022 Date Verified: MAY 06, 2022 Linux Programmer E-Sig: Report: Technique: Frontal chest. No comparison Impression: Cardiac silhouette is mildly enlarged. There is mild pulmonary venous congestion. No definite pleural effusion . No pneumothorax seen. READING PHYSICIAN: Vern Donnelly M.D. -[id number] 07 05/06/2022 13:26 EDT [facility] National Teleradiology Program [phone] (For Medical Practitioner Use Only ) Attention Patients / Veterans: If you have ques tions or concerns about these test results, please contact your [place] provider or primary care team. Primary Interpreting Staff: RADIOLOGY,OUTSIDE SERVICE, Staff Physician / May 06, 2022 10:36 CT (AP) ABDOMEN/PELVIS (P): RADIOLOGY,OUTSIDE [facility] LUISANA EDDY [id number] -1935 M SERVICE Exm Date: MAY 06, 2022@10:36 Req Phys: MODESTA VILLANUEVA Loc: [facility] EMERGENCY DEPT WALK-IN (Re Img Loc: CT IMAGING Service: Unknown (Case 66 COMPLETE) CT (AP) ABDOMEN/PELVIS W CONT RAST(CT Detailed) CPT:35184 Reason for Study: fever, back pain Clinical [...] pager listed below: User placing orders pager: [phone] LAST 3: Collection DT Specimen Test Name [...] ESTIMATED GFR(eGF 44 L Ref: >=60 Allergies: ([place] only) SIMVASTATIN (Feb 29, 2004) CEPHALEXIN (Mar 01, 2004) To see allergies from all [place] locations click Re ports tab>Remote Data>All Available Sites>Clinical Reports>Aller gies. Report Status: Verified Date Reported: MAY 06, 2022 Date Verified: MAY 06, 2022 Linux Programmer E-Sig: Report: Exam: CT (AP) ABDOMEN/PELVIS W CONTRAST [PRINTS ET] Clinical History: fever, back pain Number of images: 918 Comparison: No priors available Technique: The [facility] of the abdomen and pelvis was performed afte r the uneventful administration of iodinated contrast. Images we re received by the [place] National Teleradiology Program (NTP) for interpretation. Total [...] findings, above. READING PHYSICIAN: Eduin Donaldson M.D. -[phone] 05/06/2022 12:48 [place] [facility] National Teleradiology Program [phone] (For Medical Practitioner Use Only ) Attention Patients / Veterans: If you have ques tions or concerns about these test results, please contact your [facility] provider or primary care team. Primary Interpreting Staff: RADIOLOGY,OUTSIDE SERVICE, Staff Physician / May 06, 2022 10:35 CT HEAD/BRAIN W/O CONTRAST: RADIOLOGY,OUTSIDE [facility] AM LUISANA EDDY [id number] -1935 SERVICE Exm Date: MAY 06, 2022@10:35 Req Phys: MODESTA VILLANUEVA Loc: [facility] EMERGENCY DEPT WALK-IN (Re Img Loc: CT IMAGING Service: Unknown (Case 64 COMPLETE) CT HEAD/BRAIN W/O CONTRAST (C T Detailed) CPT:40683 Reason for Study: falls, blood thinner, AMS, se izure Clinical History: falls, blood thinner, AMS, seizure IS under investigation ([facility]) for COVID- 19 or is COVID-19+ Defer to radiologist for final CT protocol. Responsible provider name and phone number to n otify for critical findings if other than user placing the order a nd pager listed below: User placing orders pager: [phone] LAST 3: Collection DT Specimen Test Name [...] ESTIMATED GFR(eGF 44 L Ref: >=60 Allergies: ([place] only) SIMVASTATIN (Feb 29, 2004) CEPHALEXIN (Mar 01, 2004) To see allergies from all [facility] locations click Re ports tab>Remote Data>All Available Sites>Clinical Reports>Aller gies. Report Status: Verified Date Reported: MAY 06, 2022 Date Verified: MAY 06, 2022 Linux Programmer E-Sig: Report: CT HEAD/BRAIN W/O CONTRAST Clinical [...] T findings. READING PHYSICIAN: Eduin Donaldson M.D. -[phone] 05/06/2022 12:30 [facility] National Teleradiology Program [phone] (For Medical Practitioner Use Only ) Attention Patients / Veterans: If you have ques tions or concerns about these test results, please contact your o rdering provider or primary care team. Primary Interpreting Staff: RADIOLOGY,OUTSIDE SERVICE, Staff Physician / May 06, 2022 10:35 CT CERVICAL SPINE W/O CONTRAST: RADIOLOGY,OUT SIDE [facility] AM LUISANA EDDY [id number] -[phone] M SERVICE Exm Date: MAY 06, 2022@10:35 Req Phys: MODESTA VILLANUEVA Loc: [facility] EMERGENCY DEPT WALK-IN (Re Img Loc: CT IMAGING Service: Unknown (Case 65 COMPLETE) CT CERVICAL SPINE W/O CONTRAS T (CT Detailed) CPT:64322 Reason for Study: falls, blood thinner, AMS, se izure Clinical History: falls, blood thinner, AMS, seizure Duncan IS under investigation (PUI) for COVID- 19 or is COVID-19+ Defer to radiologist for final CT protocol. Responsible provider name and phone number to n otify for critical findings if other than user placing the order a nd pager listed below: User placing orders pager: [phone] LAST 3: Collection DT Specimen Test Name [...] ESTIMATED GFR(eGF 44 L Ref: >=60 Allergies: ([place] only) SIMVASTATIN (Feb 29, 2004) CEPHALEXIN (Mar 01, 2004) To see allergies from all [place] locations click Re ports tab>Remote Data>All Available Sites>Clinical Reports>Lashon king. Report Status: Verified Date Reported: MAY 06, 2022 Date Verified: MAY 06, 2022 Linux Programmer E-Sig: Report: CT CERVICAL SPINE W/O CONTRAST HISTORY:falls, blood thinner, AMS, seizure NUMBER OF IMAGES:[id number] COMPARISON: None available. TECHNIQUE: A non contrast CT of the cervical sp ine was performed at the local [place]. Images were subsequently sent to [facility] for interpretation. Axial, coronal and sagittal [...] findings, above. READING PHYSICIAN: Eduin Donaldson M.D. -[phone] 05/06/2022 12:33 [facility] National Teleradiology Program [phone] (For Medical Practitioner Use Only ) Attention Patients / Veterans: If you have ques tions or concerns about these test results, please contact your [place] provider or primary care team. Primary [...] 09, 2022 05:30 AM LR MICROBIOLOGY REPORT: [facility] Reporting Lab: [facility] [CLIA# [id number]] [place] [address] Accession [UID]: [id number] [[id number]] Receiv ed: May 09, 2022@01:35 Collection sample: BLOOD Collection date: Apr 05:30 Provider: CODIE LEON Comment on specimen: LEFT ARM, RECEIVED 2 BLOOD CULTURE BOTTLES Test(s) ordered: CULTURE & SUSCEPTIBILITY...... 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 R TRIMETH/SULFA................. S TETRACYCLINE.................. S CLINDAMYCIN................... S RIFAMPIN...................... S VANCOMYCIN.................... S Bacteriology Remark(s): VANCOMYCIN SHAMIKA: <=0.5 ug/mL THIS REPORT IS FINAL =--=--=--=--=--=--=--=--=--=--=--=--=--= --=--=--=--=--=--=--=--=--=--=--=--=-- Performing Laboratory: Bacteriology Report Performed By: [facility] [CLIA# [id number]] [place] [address] May 08, 2022 03:23 PM LR MICROBIOLOGY REPORT: [facility] Reporting Lab: [facility] [CLIA# [id number]] [place] [address] Accession [UID]: [id number] [[id number]] Receiv ed: May 08, 2022@15:41 Collection sample: BLOOD Collection date: Apr 15:23 Provider: CODIE LEON Comment on specimen: LEFT ARM, RECEIVED 2 BLOOD CULTURE BOTTLES Test(s) ordered: CULTURE & SUSCEPTIBILITY...... completed: May 10, 2022 * BACTERIOLOGY FINAL REPORT => May 10, 2022 16:3 1 TECH CODE: [id number] CULTURE RESULTS: GROWTH SAME THAT OF ANOTHER CULTURE Comment: FOR SUSCEPTIBILITY REPORT SEE PREVIOUS POSITIVE SAME MB 22 [id number] ( 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 from Anaerobic bottle ) ( Recovered from Aerobic bottle ) Bacteriology Remark(s): THIS REPORT IS FINAL =--=--=--=--=--=--=--=--=--=--=--=--=--= --=--=--=--=--=--=--=--=--=--=--=--=-- Performing Laboratory: Bacteriology Report Performed By: [facility] [CLIA# [id number]] [place] [address] May 08, 2022 03:21 PM LR MICROBIOLOGY REPORT: [facility] Reporting Lab: [facility] [CLIA# [id number]] [place] [address] Accession [UID]: [id number] [[id number]] Receiv ed: May 08, 2022@15:40 Collection sample: BLOOD Collection date: Apr 15:21 Provider: CODIE LEON Comment on specimen: RT ARM, RECEIVED 2 BLOOD CU LTURE BOTTLES Test(s) ordered: CULTURE & SUSCEPTIBILITY...... completed: May 10, 2022 * BACTERIOLOGY FINAL REPORT => May 10, 2022 16:3 1 TECH CODE: [id number] CULTURE RESULTS: GROWTH SAME THAT OF ANOTHER CULTURE Comment: FOR SUSCEPTIBILITY REPORT SEE PREVIOUS POSITIVE SAME MB 22 [id number] ( 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 from Anaerobic bottle ) ( Recovered from Aerobic bottle ) Bacteriology Remark(s): THIS REPORT IS FINAL =--=--=--=--=--=--=--=--=--=--=--=--=--= --=--=--=--=--=--=--=--=--=--=--=--=-- Performing Laboratory: Bacteriology Report Performed By: [facility] [CLIA# [id number]] [place] [address] May 07, 2022 05:30 AM LR MICROBIOLOGY REPORT: [facility] Reporting Lab: [facility] [CLIA# [id number]] [place] [address] Accession [UID]: [id number] [[id number]] Receiv ed: May 07, 2022@01:35 Collection sample: [...] REPORT SEE PREVIOUS POSITIVE SAME MB 22 [id number] ( 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 from Aerobic bottle ) ( Recovered from Anaerobic bottle ) Bacteriology Remark(s): THIS REPORT IS FINAL =--=--=--=--=--=--=--=--=--=--=--=--=--= --=--=--=--=--=--=--=--=--=--=--=--=-- Performing Laboratory: Bacteriology Report Performed By: [facility] [CLIA# [id number]] [place] [address] May 06, 2022 10:51 AM LR MICROBIOLOGY REPORT: [facility] Reporting Lab: [facility] [CLIA# [id number]] [place] [address] Accession [UID]: [id number] [[id number]] Receiv ed: May 06, 2022@11:32 Collection sample: [...] --=--=--=--=--=--=--=--=--=--=--=--=-- Performing Laboratory: Bacteriology Report Performed By: [facility] [CLIA# [id number]] [place] [address] May 06, 2022 10:34 AM LR MICROBIOLOGY REPORT: [facility] Reporting Lab: [facility] [CLIA# [id number]] [place] [address] Accession [UID]: [id number] [[id number]] Receiv ed: May 06, 2022@10:51 Collection sample: BLOOD Collection date: Apr 10:34 Provider: MODESTA VILLANUEVA Comment on specimen: RECEIVED 2 BLOOD CULTURE MILAN TTLES RAC Test(s) ordered: CULTURE & SUSCEPTIBILITY...... completed: May 07, 2022 * BACTERIOLOGY FINAL REPORT => May 08, 2022 08:3 0 TECH CODE: [id number] CULTURE RESULTS: STAPHYLOCOCCUS AUREUS METHICILL IN RESISTANT [...] --=--=--=--=--=--=--=--=--=--=--=--=-- Performing Laboratory: Bacteriology Report Performed By: [facility] [CLIA# [id number]] [address] [place] [address] May 06, 2022 10:00 AM LR MICROBIOLOGY REPORT: [place] [facility] Reporting Lab: [facility] [CLIA# [id number] 147] [place] [address] Accession [UID]: [id number] [[id number]] Receiv ed: May 06, 2022@10:41 Collection sample: [...] SUSCEPTIBILITY REPORT SEE PREVIOUS POSITIVE SAME 22 [id number] ( 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 from Anaerobic bottle ) ( Recovered from Aerobic bottle ) Bacteriology Remark(s): THIS REPORT IS FINAL =--=--=--=--=--=--=--=--=--=--=--=--=--= --=--=--=--=--=--=--=--=--=--=--=--=-- Performing Laboratory: Bacteriology Report Performed By: [facility] [CLIA# [id number]] [place] [address] Encounter Notes: All associated encounter notes This section contains the clinical notes associated to the Encounter. Date/Time Encounter Note(s) Provider Source May 11, 2022 08:22 AM NEUROLOGY ATTENDING NOTE: ROSALIA ROSALES [facility] LOCAL TITLE: NEUROLOGY INPT PROGRESS NOTE STANDARD TITLE: NEUROLOGY ATTENDING NOTE DATE OF NOTE: MAY 11, 2022@08:22 ENTRY DATE: MAY 11, 2022@08:22:30 AUTHOR: ROSALIA ROSALES EXP COSIGNER: URGENCY: STATUS: COMPLETED Neurology Inpatient Progress Note ASSESSMENT & RECOMMENDATIONS Luisana Eddy is a an 86-y ear-old with heart disease and CKD 3 who is being seen in for evaluation of fever, bacteremia, severe back pain, and report of seizure-like activity. His UA and bcxs have been gr owing MRSA. His lower back pain may be due to known spinal fracture. However, wi th his low back pain and the bacteremia, we also are concerned of discitis, abscess, and/or meningiti s. Therefore, we recommend treating with antibiotics with METAL STAMPING MACHINE OPERATOR dosing. Ideally, we would recommend brain and T/L-spine MRI to evaluation for meningitis, discitis, and strokes as a c ause for his worsening encephalopathy, but he would be unable to tolerate laying still in the scanner. We discussed with family and they confirm that he wou ld not want to be intubated solely for an MRI. An LP for CSF analysis can be deferred f or now so long as he receives METAL STAMPING MACHINE OPERATOR dosing for antibiotics. With regard to his encephalopathy, we suspect th is is most likely toxic- metabolic in the setting of bacteremia and new LATHA. However, he has a [facility] of [facility] On the day of arrival, a routine EEG showed moderate-severe slowi ng/encephalopathy, but no lateralizing discharges. We recommend obtaining a 3-hour EEG to evaluate for subclinical seizure. #MRSA bacteremia #Lower back pain #Seizure-like activity -Continue antibiotics at METAL STAMPING MACHINE OPERATOR dosing -3-hour EEG (neurology has ordered this) -Brain/brainstem MRI with and without contrast, when able -MRI T- and L-spine with and without contrast, w hen able -We do not recommend intubating the patient sole ly to obtain imaging -Continue levetiracetam 750mg twice daily #Acute encephalopathy, toxic-metabolic #Hospital-acquired delirium -Treat underlying infection, correct metabolic d erangements as able. -Avoid METAL STAMPING MACHINE OPERATOR acting drugs (including opiates, star odiazepines, anti- cholinergics); consider loca l measures or scheduled pain regimens that minimize opioids for pain -Supportive medical cares -Melatonin nightly, 2-hours before bedtime (1900 -hrs) -Delirium precautions (frequent reorient ation, normal day night cycles (blinds up and awake during day, sleeping at night), min imize frequent interruptions, clutter and loud noises, encourage family visita tions) -Avoid sensory deprivation (provide shakir ent with eyeglasses or hearing aids if using) The 's care was discussed with the attend ing neurologist, Dr. Valentino. Rosalia Rosales MD Neurology PGY-4 INTERVAL HISTORY Opening eyes to voice this morning, but not inte racting or responding to questions. Unfortunately, over the past couple of days, Mr. Eddy has become less responsive. MRSA has grown in bcx since admission and he has been receiving IV antibiotics. Discussed with family at bedside. They confirm t hat he would not want to be intubated or have attempted cardiac resuscitatio n. OBJECTIVE Most recent vital signs: Temp: 100.9 F [38.3 C] (05/06/2022 22:00) BP: 141/99 (05/06/2022 22:00) Pulse:101 (05/06/2022 22:00) Resp: 16 (05/06/2022 22:00) Weight: 259.7 lb [117.80 kg] (05/08/2022 21:14) Pain: 6 (05/11/2022 05:42) O2 Sat: 94% (05/06/2022 22:00) BMI: BMI not available without height General: Well-developed. Appears tired. HEENT: Normocephalic, atraumatic. Mucous membran es are dry. Nares patent, no nasal drainage. Dry blood at gums. CV: Extremities appear appropriately perfused. Resp: On oxymask, uses accessory muscles. Gurgli ng with respirations. Abd: Soft, non-distended. Skin: Warm. No jaundice. NEUROLOGIC EXAM Mental Status: Eyes are closed and open to voice . He does not speak or follow commands. He does not regard/track when eyes are kept open. Cranial Nerves: Pupils are 2 -3mm, equal, round, reactive. He is moving his eyes left and right. Face appears symmetric at rest. Motor/sensory: Tremulous in the upper ex tremities intermittently. Withdraws to noxious stimuli in the upper extremities. There is intermittent flickering movements at the ankle with noxious stimuli to t he lower extremities. Reflexes: No clonus, toes are equivocal. Coordination: Unable to assess. Station/Gait: Deferred. Labs: BMP 05/08/2022: Na 150, K 3.7, Cl 120, Co2 23, BU N 28, Cr 1.6, Gluc 396 CBC 05/08/2022: WBC 15.9, Hgb 11.2, Plt 231 Bcx 05/06/2022: GPC, MRSA in 3/4. Bcx 05/07/2022: GPC in 2/2. Bcx 05/08/2022: MRSA 4/4. Bcx 05/09/2022: MRSA 2/2. Ucx 05/06/2022: MRSA. Imaging: Personally reviewed and reviewed on tea m rounds. The radiologist's interpretation is documented below. Head CT without contrast 05/10/2022: Impression: 1. No acute intracranial abnormality. 2. Chronic processes as detailed in the finding s section, similar compared to the prior study. /ronni/ ROSALIA ROSALES MD NEUROLOGY RESIDENT Signed: 05/11/2022 10:58 Receipt Acknowledged By: * AWAITING SIGNATURE * JERRY VALENTINO
--- OUTSIDE RECORDS SUMMARY | 2022-05-15 09:23 | XMS_ITS ---
DAILY HOSPITALIZATION DATA [facility] Encounter Summary Created on:May 11, 2022 Patient:LUISANA EDDY Sex:Male :1935 Author Organization Department [facility] rs Address [address] [place] [address] Support Name Relationship Address Phone WADE LORENZO Unavailable [id number] [place] [address] WADE LORENZO Unavailable [phone] [place] [address] ARACELI MARSHALL Unavailable [address] [place] [address] MARILIA MARSHALLA Unavailable [address] [place] [address] Insurance Providers: All historical and current Section [...] [place] M[place] Aug 19, [id number] Kristel EDDY [facility] (WNR) ADVANTAGE (WNR) 2016 8 [id number] [phone] [facility] 1 [place] Aug 19, [id number] Kristel EDDY [facility] (WNR) ADVANTAGE (WNR) 2016 8 [id number] [phone] [facility] 1 Selected Encounter This section includes the information on record at [place] for the Encounter. Date/Time Encounter Type Encounter Description Reason Provider Source May 11, 2022 12:46 Inpatient Visit DAILY HOSPITALIZATION DATA PM [facility] Encounter Template Text not used by NM Plan of Treatment: Future Appointments (+ 6 months) and Future Tests (+/- 45 days) The Plan of Treatment section includes future care activities for the patient [facility] [place] [facility] This section includes future appointments and future orders which are active, pending orscheduled.Future Appointments This section includes appointments that were scheduled to occur 6 months from the date of the Encounter, up to a maximum of 20 appointments. The data comes from all [place] treatment facilities. Appointment Date/Time Appointment Type Appointment Facili ty Name Jul 23, 2022 08:00 AM AMBULATORY - NEUROLOGY [facility] Active, Pending, and Scheduled Orders This section includes a listing of several types of active, pending, and scheduled orders, including clinic medications orders, diagnostic test orders, procedure orders and consult orders; where the start date of the order is 45 days before the date of the Encounter or 45 days after the date of the Encounter. The data comes from all [place] treatment facilities. Test Date/Time Test Type Test Details Facility Name Apr 30, 2022 08:21 Laboratory - Chemistry URINALYSIS URINE WC ON CE [facility] AM Order Apr 30, 2022 08:21 Laboratory - CULTURE & SUSCEPTIBILITY [facility] AM Microbiology Order URINE WC May 06, 2022 12:00 Laboratory - Blood ABO/RH - LAB BLOOD [facility] AM Bank Order May 06, 2022 10:11 Laboratory - Blood TYPE & SCREEN - LAB [facility] AM Bank Order BLOOD WC May 06, 2022 10:27 [facility] AM Medication Order May 06, 2022 10:28 [facility] AM Infusion Order May 06, 2022 10:34 [facility] AM Infusion Order May 06, 2022 10:41 [facility] AM Infusion Order May 06, 2022 12:15 [facility] PM Medication Order May 06, 2022 01:31 [facility] PM Medication Order May 06, 2022 04:49 [facility] PM Medication Order May 07, 2022 01:00 Laboratory - CULTURE & SUSCEPTIBILITY [facility] PM Microbiology Order BLOOD WC ONCE May 11, 2022 09:07 Laboratory - CULTURE & SUSCEPTIBILITY [facility] AM Microbiology Order BLOOD WC May 11, 2022 09:07 Laboratory - CULTURE & SUSCEPTIBILITY [facility] AM Microbiology Order BLOOD WC May 11, 2022 09:38 Laboratory - Chemistry EOSINOPHIL SMEAR,URINE [facility] AM Order URINE WC ONCE May 11, 2022 09:38 Laboratory - Chemistry URINALYSIS URINE WC ON CE [facility] AM Order May 11, 2022 09:38 Laboratory - Chemistry FENA URINE WC ONCE [facility] AM Order Lab Results: +/- 30 days of the encounter This section includes the Chemistry and Hematology Lab Results on record with [place] for the patient. Radiology Reports and Pathology Reports are provided separately, in subsequent sections.Lab Results This section contains the Chemistry/Hematology Results that were resulted 30 days before or 30 daysafter the date of the Encounter. Date/Time Source Result Type Result - Unit Interpretation Reference Range Comment May 11, 2022 11:13 [facility] FINGERSTICK GLUCOSE Speci men Type: BLOOD AM Comment: Mark casillas Nurse Notified Ordering Provid er: CODIE LEON Report Released Date/Time: May 11, 2022 11:53 AM Reporting Lab: [facility] [address] [facility] [address] Performing Lab: [facility] [address] [facility] [address] FINGERSTICK GLUCOSE 367 H 70-100 May 11, 2022 07:05 AM [facility] CK,TOTAL Specim en Type: PLASMA No comment enter ed. Ordering Provid er: CODIE LEON Report Released Date/Time: May 11, 2022 09:08 AM Reporting Lab: [facility] [address] [facility] [address] Performing Lab: [facility] [address] [facility] [address] CK,TOTAL 16 L 39-208 May 11, 2022 07:05 [facility] BASIC METABOLIC Specimen Type: PLASMA AM PANEL+MG No comment enter ed. Ordering Provid er: OG DIAL Report Released Date/Time: May 11, 2022 04:46 AM Reporting Lab: [facility] [address] [facility] [address] Performing Lab: [facility] [address] [facility] [address] CREATININE 1.6 H 0.7-1.2 UREA NITROGEN 28 H 8-26 GLUCOSE 396 H 70-100 SODIUM 150 H 136-145 POTASSIUM 3.7 3.5-5.1 CHLORIDE 120 H 98-107 CO2 23 22-29 CALCIUM 8.4 8.4-10.2 MAGNESIUM 2.1 1.6-2.6 ANION GAP 7 5-15 CREAT EGFR(CKD-EPI) 42 L >60 May 11, 2022 07:05 AM [facility] CBC Specim en Type: BLOOD No comment enter ed. Ordering Provid er: OG DIAL Report Released Date/Time: May 11, 2022 04:46 AM Reporting Lab: [facility] [address] [facility] [address] Performing Lab: [facility] [address] [facility] [address] WBC 15.93 H 4.0-11.0 RBC 3.60 L 4.6-6.2 HGB 11.2 L 13.5-17.9 HCT 35.3 L 41-54 MCV 98.1 80-100 MCH 31.1 27-33 MCHC 31.7 L 32.0-37.5 PLT 231 150-400 MPV 11.2 H 7.4-10.4 RDW 15.2 H 11.5-14.5 May 11, 2022 07:05 [facility] LIVER FUNCTION TESTS Spec imen Type: PLASMA AM No comment enter ed. Ordering Provid er: CODIE LEON Report Released Date/Time: May 11, 2022 09:08 AM Reporting Lab: [facility] [address] [facility] [address] Performing Lab: [facility] [address] [facility] [address] BILIRUBIN, TOTAL 1.6 H 0.2-1.2 ALKALINE PHOSPHATASE 102 40-150 ALT/SGPT 42 <55 AST/SGOT 30 <34 GAMMA GTP 52 <64 DIR. BILIRUBIN 1.2 H <0.5 May 11, 2022 07:05 AM [facility] BNP Specim en Type: PLASMA No comment enter ed. Ordering Provid er: CODIE LEON Report Released Date/Time: May 11, 2022 09:15 AM Reporting Lab: [facility] [address] [facility] [address] Performing Lab: [facility] [address] [facility] [address] BNP 59 <99 May 11, 2022 06:14 [facility] FINGERSTICK GLUCOSE Speci men Type: BLOOD AM Comment: Mark casillas Nurse Notified Ordering Provid er: CODIE LEON Report Released Date/Time: May 11, 2022 06:42 AM Reporting Lab: [facility] [address] [facility] [address] Performing Lab: [facility] [address] [facility] [address] FINGERSTICK GLUCOSE 345 H 70-100 May 11, 2022 02:24 [facility] FINGERSTICK GLUCOSE Speci men Type: BLOOD AM Comment: Mark casillas Ordering Provid er: CODIE LEON Report Released Date/Time: May 11, 2022 02:44 AM Reporting Lab: [facility] [address] [facility] [address] Performing Lab: [facility] [address] [facility] [address] FINGERSTICK GLUCOSE 375 H 70-100 May 10, 2022 08:38 [facility] FINGERSTICK GLUCOSE Speci men Type: BLOOD PM Comment: Mark casillas Ordering Provid er: CODIE LEON Report Released Date/Time: May 11, 2022 12:31 AM Reporting Lab: [facility] [address] [facility] [address] Performing Lab: [facility] [address] [facility] [address] FINGERSTICK GLUCOSE 346 H 70-100 May 10, 2022 05:05 [facility] FINGERSTICK GLUCOSE Speci men Type: BLOOD PM Comment: Mark casillas Nurse Notified Ordering Provid er: CODIE LEON Report Released Date/Time: May 10, 2022 11:50 PM Reporting Lab: [facility] [address] [facility] [address] Performing Lab: [facility] [address] [facility] [address] FINGERSTICK GLUCOSE 245 H 70-100 May 10, 2022 02:00 [facility] VANCOMYCIN (TROUGH) Speci men Type: PLASMA PM No comment enter ed. Ordering Provid er: CODIE LEON Report Released Date/Time: May 11, 2022 01:34 AM Reporting Lab: [facility] [address] [facility] [address] Performing Lab: [facility] [address] [facility] [address] VANCOMYCIN (TROUGH) 31.8 H 10.0-15.0 May 10, 2022 [facility] BASIC METABOLIC Specimen Typ e: PLASMA 02:00 PM PANEL+MG No comment enter ed. Ordering Provi violeta: CODIE LEON Report Released Date/Time: May 11, 2022 01:34 AM Reporting Lab: [facility] [address] Performing Lab: [facility] [address] CREATININE 1.1 .7-1.2 UREA NITROGEN 22 8-26 GLUCOSE 279 H 70-100 SODIUM 150 H 136-145 POTASSIUM 3.2 L 3.5-5.1 CHLORIDE 116 H 98-107 CO2 23 22-29 CALCIUM 8.5 8.4-10.2 MAGNESIUM 2.0 1.6-2.6 ANION GAP 11 5-15 CREAT EGFR(CKD-EPI) 65 >60 May 10, 2022 01:20 PM [facility] CBC & DIFF Specim en Type: BLOOD Comment: Automa nola Differential Performed Ordering Provid er: MD ESTEBAN Report Released Date/Time: May 10, 2022 08:52 PM Reporting Lab: [facility] [address] Performing Lab: [facility] [address] WBC 16.24 H 4.0-11.0 RBC 3.76 L [...] 0.28 H 0-0.1 May 10, 2022 11:07 [facility] FINGERSTICK GLUCOSE Speci men Type: BLOOD AM Comment: Mark casillas Nurse Notified Ordering Provid er: CODIE LEON Report Released Date/Time: May 11, 2022 12:31 AM Reporting Lab: [facility] [address] Performing Lab: [facility] [address] [facility] [address] FINGERSTICK GLUCOSE 253 H 70-100 May 10, 2022 06:16 [facility] FINGERSTICK GLUCOSE Speci men Type: BLOOD AM Comment: Mark casillas Nurse Notified Ordering Provid er: CODIE LEON Report Released Date/Time: May 10, 2022 11:50 PM Reporting Lab: [facility] [address] [facility] [address] Performing Lab: [facility] [address] [facility] [address] FINGERSTICK GLUCOSE 271 H 70-100 May 09, 2022 09:07 [facility] FINGERSTICK GLUCOSE Speci men Type: BLOOD PM Comment: Mark casillas Ordering Provid er: CODIE LEON Report Released Date/Time: May 10, 2022 11:50 PM Reporting Lab: [facility] [address] [facility] [address] Performing Lab: [facility] [address] [facility] [address] FINGERSTICK GLUCOSE 209 H 70-100 May 09, 2022 05:33 [facility] FINGERSTICK GLUCOSE Speci men Type: BLOOD PM Comment: Mark casillas Nurse Notified Ordering Provid er: CODIE LEON Report Released Date/Time: May 09, 2022 05:53 PM Reporting Lab: [facility] [address] [facility] [address] Performing Lab: [facility] [address] [facility] [address] FINGERSTICK GLUCOSE 251 H 70-100 May 09, 2022 02:09 [facility] VANCOMYCIN (PEAK) Specime n Type: SERUM PM No comment enter ed. Ordering Provid er: AMARIS DE JESUS Report Released Date/Time: May 09, 2022 09:33 AM Reporting Lab: [facility] [address] [facility] [address] Performing Lab: [facility] [address] [facility] [address] VANCOMYCIN (PEAK) 24.2 20.0-40.0 May 09, 2022 11:19 [facility] FINGERSTICK GLUCOSE Speci men Type: BLOOD AM Comment: Mark casillas Nurse Notified Ordering Provid er: CODIE LEON Report Released Date/Time: May 09, 2022 11:38 AM Reporting Lab: [facility] [address] [facility] [address] Performing Lab: [facility] [address] [address] [facility] [address] FINGERSTICK GLUCOSE 240 H 70-100 May 09, 2022 08:13 [facility] VANCOMYCIN (TROUGH) Speci men Type: SERUM AM No comment enter ed. Ordering Provid er: AMARIS DE JESUS Report Released Date/Time: May 08, 2022 11:14 AM Reporting Lab: [facility] [address] [facility] [address] Performing Lab: [facility] [address] VANCOMYCIN (TROUGH) 16.1 H 10.0-15.0 May 09, 2022 05:33 AM [facility] CBC & DIFF Specim en Type: BLOOD Comment: Automa nola Differential Performed Ordering Provid er: CODIE LEON Report Released Date/Time: May 08, 2022 05:27 PM Reporting Lab: [facility] [address] Performing Lab: [facility] [address] [address] [facility] [address] WBC 14.92 H 4.0-11.0 RBC 3.41 L [...] GRAN 0.16 H 0-0.1 May 09, 2022 [facility] COMPREHENSIVE METABOLIC Spec imen Type: PLASMA 05:32 AM PANEL+MG No comment enter ed. Ordering Provid er: CODIE LEON Report Released Date/Time: May 08, 2022 05:27 PM Reporting Lab: [facility] [address] [facility] [address] Performing Lab: [facility] [address] CREATININE 1.2 0.7-1.2 UREA NITROGEN 25 8-26 [...] 59 L >60 May 09, 2022 05:16 [facility] FINGERSTICK GLUCOSE Speci men Type: BLOOD AM Comment: Mark casillas Nurse Notified Ordering Provid er: CODIE LEON Report Released Date/Time: May 09, 2022 07:27 AM Reporting Lab: [facility] [address] Performing Lab: [facility] [address] FINGERSTICK GLUCOSE 295 H 70-100 May 08, 2022 09:32 PM [facility] EXTRA MINT TUBE Specim en Type: PLASMA No comment enter ed. Ordering Provid er: MD ESTEBAN Report Released Date/Time: May 08, 2022 09:32 PM Reporting Lab: [facility] [address] Performing Lab: [facility] [address] EXTRA MINT TUBE RECEIVED May 08, 2022 09:32 PM [facility] EXTRA PURPLE TUBE Spec imen Type: BLOOD No comment enter ed. Ordering Provid er: MD ESTEBAN Report Released Date/Time: May 08, 2022 09:32 PM Reporting Lab: [facility] [address] [facility] [address] Performing Lab: [facility] [address] EXTRA PURPLE TUBE RECEIVED May 08, 2022 09:32 [facility] EXTRA GOLD GEL TUBE Speci men Type: SERUM PM No comment enter ed. Ordering Provid er: MD ESTEBAN Report Released Date/Time: May 08, 2022 09:32 PM Reporting Lab: [facility] [address] [facility] [address] Performing Lab: [facility] [address] [facility] [address] EXTRA GOLD GEL TUBE RECEIVED May 08, 2022 09:32 PM [facility] EXTRA BLUE TUBE Specim en Type: PLASMA No comment enter ed. Ordering Provid er: MD ESTEBAN Report Released Date/Time: May 08, 2022 09:32 PM Reporting Lab: [facility] [address] [facility] [address] Performing Lab: [facility] [address] [facility] [address] EXTRA BLUE TUBE RECEIVED May 08, 2022 09:32 PM [facility] EXTRA BRASWELL TUBE Specim en Type: PLASMA No comment enter ed. Ordering Provid er: MD ESTEBAN Report Released Date/Time: May 08, 2022 09:37 PM Reporting Lab: [facility] [address] [facility] [address] Performing Lab: [facility] [address] [facility] [address] EXTRA BRASWELL TUBE RECEIVED May 08, 2022 09:32 PM [facility] LACTIC ACID Specim en Type: PLASMA No comment enter ed. Ordering Provid er: OG DIAL Report Released Date/Time: May 08, 2022 09:49 PM Reporting Lab: [facility] [address] [facility] [address] Performing Lab: [facility] [address] [facility] [address] LACTIC ACID 2.5 H 0.5-2.2 May 08, 2022 09:32 PM [facility] BNP Specim en Type: PLASMA No comment enter ed. Ordering Provid er: OG DIAL Report Released Date/Time: May 08, 2022 09:50 PM Reporting Lab: [facility] [address] [facility] [address] Performing Lab: [facility] [address] [facility] [address] BNP 897 H <99 May 08, 2022 09:32 PM [facility] CBC Specim en Type: BLOOD No comment enter ed. Ordering Provid er: OG DIAL Report Released Date/Time: May 08, 2022 09:50 PM Reporting Lab: [facility] [address] [facility] [address] Performing Lab: [facility] [address] WBC 18.54 H 4.0-11.0 RBC 3.68 L 4.6-6.2 HGB 11.5 L 13.5-17.9 HCT 35.1 L 41-54 MCV 95.4 80-100 MCH 31.3 27-33 MCHC 32.8 32.0-37.5 PLT 221 150-400 MPV 11.1 H 7.4-10.4 RDW 14.9 H 11.5-14.5 May 08, 2022 09:32 PM [facility] BLOOD GASES Specim en Type: VENOUS BLOOD Comment: O2 THE RAPY = 3L PM Ordering Provid er: OG DIAL Report Released Date/Time: May 08, 2022 09:50 PM Reporting Lab: [facility] [address] Performing Lab: [facility] [address] PH 7.36 7.33-7.43 PCO2 47 41-51 BICARBONATE 24.4 21.0-30.0 PO2 31 L 35-40 OXYGEN SATURATION 54.7 L 70.0-75.0 PH(TEMP CORRECTED) 7.37 7.33-7.43 PCO2(TEMP CORRECTED) 46 41-51 PO2(TEMP CORRECTED) 31 L 35-40 PATIENT TEMPERATURE 36.7 May 08, 2022 [facility] COMPREHENSIVE METABOLIC Spec imen Type: PLASMA 09:32 PM PANEL+MG No comment enter ed. Ordering Provid er: OG DIAL Report Released Date/Time: May 08, 2022 09:50 PM Reporting Lab: [facility] [address] Performing Lab: [facility] [address] CREATININE 1.3 H 0.7-1.2 UREA NITROGEN 26 [...] 54 L >60 May 08, 2022 08:27 [facility] FINGERSTICK GLUCOSE Speci men Type: BLOOD PM Comment: Mark casillas Nurse Notified Ordering Provid er: CODIE LEON Report Released Date/Time: May 08, 2022 08:55 PM Reporting Lab: [facility] [address] [facility] [address] Performing Lab: [facility] [address] [facility] [address] FINGERSTICK GLUCOSE 272 H 70-100 May 08, 2022 06:56 [facility] FINGERSTICK GLUCOSE Speci men Type: BLOOD PM Comment: Mark casillas Ordering Provid er: CODIE LEON Report Released Date/Time: May 08, 2022 07:08 PM Reporting Lab: [facility] [address] [facility] [address] Performing Lab: [facility] [address] [facility] [address] FINGERSTICK GLUCOSE 262 H 70-100 May 08, 2022 04:50 [facility] FINGERSTICK GLUCOSE Speci men Type: BLOOD PM Comment: Nurse Notified Ordering Provid er: CODIE LEON Report Released Date/Time: May 08, 2022 05:14 PM Reporting Lab: [facility] [address] [facility] [address] Performing Lab: [facility] [address] [facility] [address] FINGERSTICK GLUCOSE 330 H 70-100 May 08, 2022 11:21 [facility] FINGERSTICK GLUCOSE Speci men Type: BLOOD AM Comment: Mark casillas Nurse Notified Ordering Provid er: CODIE LEON Report Released Date/Time: May 08, 2022 11:51 AM Reporting Lab: [facility] [address] [facility] [address] Performing Lab: [facility] [address] [facility] [address] FINGERSTICK GLUCOSE 231 H 70-100 May 08, 2022 07:25 AM [facility] CBC & DIFF Specim en Type: BLOOD Comment: Automrobby vaca Differential Performed Ordering Provid er: BETO AYALA Report Released Date/Time: May 07, 2022 12:28 PM Reporting Lab: [facility] [address] Performing Lab: [facility] [address] WBC 16.29 H 4.0-11.0 RBC 3.38 L [...] GRAN 0.26 H 0-0.1 May 08, 2022 [facility] PROTHROMBIN TIME/INR Specime n Type: PLASMA 07:25 AM No comment enter ed. Ordering Provid er: BETO AYALA Report Released Date/Time: May 07, 2022 12:28 PM Reporting Lab: [facility] [address] Performing Lab: [facility] [address] .INR 1.2 H 0.8-1.1 .PT 14.2 H 9.4-12.5 May 08, 2022 [facility] COMPREHENSIVE METABOLIC Spec imen Type: PLASMA 07:25 AM PANEL+MG No comment enter ed. Ordering Provid er: BETO AYALA Report Released Date/Time: May 07, 2022 12:28 PM Reporting Lab: [facility] [address] Performing Lab: [facility] [address] CREATININE 1.1 0.7-1.2 UREA NITROGEN 27 H [...] EGFR(CKD-EPI) 65 >60 May 08, 2022 06:53 [facility] FINGERSTICK GLUCOSE Speci men Type: BLOOD AM Comment: Save R esult Ordering Provid er: CODIE LEON Report Released Date/Time: May 08, 2022 07:18 AM Reporting Lab: [facility] [address] [facility] [address] Performing Lab: [facility] [address] [facility] [address] FINGERSTICK GLUCOSE 276 H 70-100 May 07, 2022 08:36 [facility] FINGERSTICK GLUCOSE Speci men Type: BLOOD PM Comment: Nurse Notified Ordering Provid er: CODIE LEON Report Released Date/Time: May 08, 2022 12:29 AM Reporting Lab: [facility] [address] [facility] [address] Performing Lab: [facility] [address] [facility] [address] FINGERSTICK GLUCOSE 282 H 70-100 May 07, 2022 07:04 PM [facility] LACTIC ACID Specim en Type: PLASMA No comment enter ed. Ordering Provid er: BETO AYALA Report Released Date/Time: May 07, 2022 06:28 PM Reporting Lab: [facility] [address] [facility] [address] Performing Lab: [facility] [address] [facility] [address] LACTIC ACID 2.0 0.5-2.2 May 07, 2022 04:46 [facility] FINGERSTICK GLUCOSE Speci men Type: BLOOD PM Comment: Nurse Notified Ordering Provid er: BETO AYALA Report Released Date/Time: May 07, 2022 05:00 PM Reporting Lab: [facility] [address] [facility] [address] Performing Lab: [facility] [address] [facility] [address] FINGERSTICK GLUCOSE 274 H 70-100 May 07, 2022 12:47 [facility] FINGERSTICK GLUCOSE Speci men Type: BLOOD PM Comment: Mark casillas Nurse Notified Ordering Provid er: BETO AYALA Report Released Date/Time: May 07, 2022 05:32 PM Reporting Lab: [facility] [facility] [address] [facility] [address] Performing Lab: [facility] [address] [facility] [address] FINGERSTICK GLUCOSE 309 H 70-100 May 07, 2022 06:35 [facility] FINGERSTICK GLUCOSE Speci men Type: BLOOD AM Comment: Mark casillas Nurse Notified Ordering Provid er: GAYLA DOMINGUEZ Report Released Date/Time: May 07, 2022 06:46 AM Reporting Lab: [facility] [address] [facility] [address] Performing Lab: [facility] [address] [facility] [address] FINGERSTICK GLUCOSE 352 H 70-100 May 07, 2022 06:15 AM [facility] ALBUMIN Specim en Type: PLASMA No comment enter ed. Ordering Provid er: GAYLA DOMINGUEZ Report Released Date/Time: May 06, 2022 06:33 PM Reporting Lab: [facility] [address] [facility] [address] Performing Lab: [facility] [address] [facility] [address] ALBUMIN 3.0 L 3.5-5.2 May 07, 2022 [facility] COMPREHENSIVE METABOLIC Spec imen Type: PLASMA 06:15 AM PANEL+MG No comment enter ed. Ordering Provid er: GAYLA DOMINGUEZ Report Released Date/Time: May 06, 2022 09:11 PM Reporting Lab: [facility] [address] [facility] [address] Performing Lab: [facility] [address] [facility] [address] CREATININE 1.2 0.7-1.2 UREA NITROGEN 25 8-26 [...] L >60 May 07, 2022 06:15 AM [facility] CBC & DIFF Specim en Type: BLOOD Comment: Manual Differential Performed Ordering Provid er: GAYLA DOMINGUEZ Report Released Date/Time: May 06, 2022 09:11 PM Reporting Lab: [facility] [address] [facility] [address] Performing Lab: [facility] [address] [facility] [address] WBC 20.25 H 4.0-11.0 RBC 3.54 L [...] NORMOCYTIC, NORMOCHROMIC May 07, 2022 12:19 AM [facility] LACTIC ACID Specim en Type: PLASMA No comment enter ed. Ordering Provid er: GAYLA DOMINGUEZ Report Released Date/Time: May 06, 2022 07:13 PM Reporting Lab: [facility] [address] [facility] [address] Performing Lab: [facility] [address] [facility] [address] LACTIC ACID 2.7 H 0.5-2.2 May 06, 2022 10:45 [facility] FINGERSTICK GLUCOSE Speci men Type: BLOOD PM Comment: Mark casillas Nurse Notified Ordering Provid er: GAYLA DOMINGUEZ Report Released Date/Time: May 07, 2022 12:08 AM Reporting Lab: [facility] [address] [facility] [address] Performing Lab: [facility] [address] [facility] [address] FINGERSTICK GLUCOSE 320 H 70-100 May 06, 2022 06:53 [facility] MRSA SURVL NARES Specimen Type: NARES PM DNA No comment enter ed. Ordering Provid er: GAYLA DOMINGUEZ Report Released Date/Time: May 06, 2022 06:33 PM Reporting Lab: [facility] [address] [facility] [address] Performing Lab: [facility] [address] [facility] [address] MRSA SURVL NARES DNA POSITIVE HH Negative May 06, 2022 06:51 PM [facility] LACTIC ACID Specim en Type: PLASMA No comment enter ed. Ordering Provid er: GAYLA DOMINGUEZ Report Released Date/Time: May 06, 2022 06:04 PM Reporting Lab: [facility] [address] [facility] [address] Performing Lab: [facility] [address] [facility] [address] LACTIC ACID 3.1 H 0.5-2.2 May 06, 2022 06:51 [facility] CARDIAC TROPONIN I Specim en Type: PLASMA PM No comment enter ed. Ordering Provid er: GAYLA DOMINGUEZ Report Released Date/Time: May 06, 2022 06:05 PM Reporting Lab: [facility] [address] [facility] [address] Performing Lab: [facility] [address] [facility] [address] CARDIAC TROPONIN I <0.028 <0.028 May 06, 2022 06:51 [facility] EXTRA GOLD GEL TUBE Speci men Type: SERUM PM No comment enter ed. Ordering Provid er: GAYLA DOMINGUEZ Report Released Date/Time: May 06, 2022 06:52 PM Reporting Lab: [facility] [address] [facility] [address] Performing Lab: [facility] [address] [facility] [address] EXTRA GOLD GEL TUBE RECEIVED May 06, 2022 06:51 [facility] C-REACTIVE PROTEIN Specim en Type: PLASMA PM No comment enter ed. Ordering Provid er: GAYLA DOMINGUEZ Report Released Date/Time: May 06, 2022 09:29 PM Reporting Lab: [facility] [address] [facility] [address] Performing Lab: [facility] [address] [facility] [address] C-REACTIVE PROTEIN 392.40 H <5.00 May 06, 2022 10:51 AM [facility] URINALYSIS Specim en Type: URINE No comment enter ed. Ordering Provid er: MODESTA VILLANUEVA Report Released Date/Time: May 06, 2022 10:11 AM Reporting Lab: [facility] [address] [facility] [address] Performing Lab: [facility] [address] URINE COLOR YELLOW SPECIFIC GRAVITY 1.020 1.003-1.035 [...] ESTERASE 500 NEGATIVE May 06, 2022 10:24 [facility] COVID-19 DIAGNOSTIC Speci men Type: NASOPHARYNGEAL AM PANEL (CEPHEID) Comment: Cepjosseline lopez GeneXpert (618) Ordering Provid er: MODESTA VILLANUEVA Report Released Date/Time: May 06, 2022 10:11 AM Reporting Lab: [facility] [address] Performing Lab: [facility] [address] COVID-19 (CEPHEID) Not Detected Not Dete cted May 06, 2022 10:20 AM [facility] POC ABG/LACTATE Specim en Type: VENOUS BLOOD No comment enter ed. Ordering Provid er: MODESTA VILLANUEVA Report Released Date/Time: May 06, 2022 10:22 AM Reporting Lab: [facility] [address] [facility] [address] Performing Lab: [facility] [address] [facility], [facility] [address] POC PH 7.410 7.31-7.41 POC PCO2 28.9 L 35.00-45.00 POC PO2 82 H 35.0-40.0 POC TCO2 19 L 24.0-29.0 POC HCO3 18.3 L 23.0-28.0 POC BE ECT -6 L -2 POC SO2 96 H 70-75 POC LACTATE 3.62 0.90-1.70 May 06, 2022 10:00 AM [facility] PHOSPHORUS Specim en Type: PLASMA No comment enter ed. Ordering Provid er: MODESTA VILLANUEVA Report Released Date/Time: May 06, 2022 10:11 AM Reporting Lab: [facility] [address] [facility] [address] Performing Lab: [facility] [address] [facility] [address] PHOSPHORUS 2.5 2.3-4.7 May 06, 2022 10:00 [facility] ACT PART THROMBO TIME Spe cimen Type: PLASMA AM No comment enter ed. Ordering Provid er: MODESTA VILLANUEVA Report Released Date/Time: May 06, 2022 10:11 AM Reporting Lab: [facility] [address] [facility] [address] Performing Lab: [facility] [address] [facility] [address] APTT 37.8 H 25.1-36.5 May 06, 2022 10:00 [facility] PROTHROMBIN TIME/INR Spec imen Type: PLASMA AM No comment enter ed. Ordering Provid er: MODESTA VILLANUEVA Report Released Date/Time: May 06, 2022 10:11 AM Reporting Lab: [facility] [address] [facility] [address] Performing Lab: [facility] [address] [facility] [address] .INR 2.5 H 0.8-1.1 .PT 29.2 H 9.4-12.5 May 06, 2022 10:00 [facility] CARDIAC TROPONIN I Specim en Type: PLASMA AM Comment: Critic al Value Reported To: BROOKS COTE 05-06-2022 @1053 BY MBB. Critical value report confirmed. Ordering Provid er: MODESTA VILLANUEVA Report Released Date/Time: May 06, 2022 10:11 AM Reporting Lab: [facility] [address] [facility] [address] Performing Lab: [facility] [address] [facility] [address] CARDIAC TROPONIN I 0.035 HH <0.028 May 06, 2022 10:00 AM [facility] PROCALCITONIN Specim en Type: PLASMA No comment enter ed. Ordering Provid er: MODESTA VILLANUEVA Report Released Date/Time: May 06, 2022 10:11 AM Reporting Lab: [facility] [address] [facility] [address] Performing Lab: [facility] [address] [facility] [address] PROCALCITONIN 22.29 H <0.09 May 06, 2022 10:00 AM [facility] LIPASE Specim en Type: PLASMA No comment enter ed. Ordering Provid er: MODESTA VILLANUEVA Report Released Date/Time: May 06, 2022 10:11 AM Reporting Lab: [facility] [address] [facility] [address] Performing Lab: [facility] [address] [facility] [address] LIPASE <4 <60 May 06, 2022 10:00 AM [facility] CBC & DIFF Specim en Type: BLOOD Comment: Manual Differential Performed Ordering Provid er: MODESTA VILLANUEVA Report Released Date/Time: May 06, 2022 10:11 AM Reporting Lab: [facility] [address] [facility] [address] Performing Lab: [facility] [address] [facility] [address] WBC 18.82 H 4.0-11.0 RBC 3.70 L [...] .RBC MORPHOLOGY PRESENT May 06, 2022 10:00 [facility] EXTRA GOLD GEL TUBE Speci men Type: SERUM AM No comment enter ed. Ordering Provid er: LINNEA RAND Report Released Date/Time: May 06, 2022 10:25 AM Reporting Lab: [facility] [address] [facility] [address] Performing Lab: [facility] [address] [facility] [address] EXTRA GOLD GEL TUBE RECEIVED May 06, 2022 [facility] COMPREHENSIVE METABOLIC Spec imen Type: PLASMA 10:00 AM PANEL+MG Comment: Manual Differential Performed Ordering Provid er: MODESTA VILLANUEVA Report Released Date/Time: May 06, 2022 10:11 AM Reporting Lab: [facility] [address] [facility] [address] Performing Lab: [facility] [address] [facility] [address] CREATININE 1.3 H 0.7-1.2 UREA NITROGEN 25 [...] 54 L >60 May 06, 2022 09:46 [facility] FINGERSTICK GLUCOSE Speci men Type: BLOOD AM Comment: Mark casillas Nurse Notified Ordering Provid er: MODESTA VILLANUEVA Report Released Date/Time: May 06, 2022 09:59 AM Reporting Lab: [facility] [address] [facility] [address] [facility] [address] FINGERSTICK GLUCOSE 369 H 70-100 Apr 30, 2022 09:17 AM [facility] CBC Specim en Type: BLOOD No comment enter ed. Ordering Provid er: BILL ROONEY Report Released Date/Time: Apr 30, 2022 08:21 AM Reporting Lab: [facility] [address] [facility] [address] Performing Lab: [facility] [address] [facility] [address] WBC 10.40 4.0-11.0 RBC 3.96 L 4.6-6.2 HGB 12.3 L 13.5-17.9 HCT 37.8 L 41-54 MCV 95.5 80-100 MCH 31.1 27-33 MCHC 32.5 32.0-37.5 PLT 286 150-400 MPV 10.1 7.4-10.4 RDW 14.6 H 11.5-14.5 Apr 30, 2022 [facility] BASIC METABOLIC Specimen Typ e: PLASMA 09:17 AM PANEL+MG No comment enter ed. Ordering Provid er: BILL ROONEY Report Released Date/Time: Apr 30, 2022 08:21 AM Reporting Lab: [facility] [address] Performing Lab: [facility] [address] CREATININE 1.2 0.7-1.2 UREA NITROGEN 26 8-26 [...] Pulse Blood Respiratory SP02 Pain Height Weight Mialn dy Source Pressure Rate Mass Index May 11 [facility] 2021 08:39 [facility] May 11 [facility] 2021 05:42 [facility] May 11 [facility] 2021 03:33 [facility] May 11 [facility] 2021 12:54 [facility] Social History: Smoking Status (Most current) and Tobacco Use (All prior to encounter date) This section includes the most current, and the historical, smoking and tobacco-related health factors from the [place] facility where the Encounter took place.Current Smoking Status This section includes the most current smoking, or tobacco-related health factor, from the [place] facility where the Encounter took place. Date/Time Current Smoking Status Comment Facility Feb 02, 2022 09:30 AM [place]-TOBACCO NEVER USED [facility] [employer] [facility] Tobacco Use History This section includes a history of the smoking, or tobacco- related health factors, that were collected on or before the date of the Encounter. The data comes from the [place] facility where the Encounter took place. Date/Time Smoking Status/Tobacco Use Comment [facility] Mar 22, 2021 07:45 AM [place]-TOBACCO NEVER USED [facility] [employer] [facility] Oct 02, 2019 10:02 AM [place]-TOBACCO NEVER USED [facility] [place] [facility] May 21, 2018 09:05 AM [place]-TOBACCO NEVER USED [place] [facility] December 25, 2017 06:14 PM INPT NO TOBACCO USE IN LAST 30 DAYS [facility] Oct 01, 2017 07:34 AM LIFETIME NON-TOBACCO USER [facility] Sep 28, 2016 08:44 AM LIFETIME NON-TOBACCO USER [facility] Oct 14, 2015 07:52 AM LIFETIME NON-TOBACCO USER [facility] Oct 11, 2014 07:59 AM LIFETIME NON-TOBACCO USER [facility] January 15, 2007 07:55 AM LIFETIME NON-TOBACCO USER [facility] Advance Directives: All historical and current Section Date Range: From patient's date of to the date document was created. This section includes ALL of a patient's completed or amended [place] Advance and Rescinded Directives. The entries below indicate that a directive exists for the patient, but an actual copy is not included with this document. The data comes from all [place] facilities. Date Advance Directives Provider Source Apr 18, 2018 ADVANCE DIRECTIVE LARISSA SIGALA [facility] Apr 18, 2018 ADVANCE DIRECTIVE DISCUSSION JOVONLARISSA [facility] December 23, 2017 CLINICAL WARNING FARHAT SCHMID [facility] May 11, 2003 ADVANCE DIRECTIVE BERT CASILLAS [facility] Radiology Reports: +/- 30 days of the [...] the Encounter. The data comes from all [place] treatment facilities. Date/Time Radiology Report Provider Source May 11, 2022 09:46 CHEST 1 VIEW: SONJA OVALLES [facility] AM LUIASNA EDDY [id number] -1935 M Exm Date: MAY 11, 2022@09:46 Req Phys: CODIE LEON Loc: OP Unknown /05-13-2022@05:05 Img Loc: MAIN X-RAY Service: PRIMARY CARE - MED OFFICE (Case [id number] COMPLETE) CHEST 1 VIEW (RAD Detailed) CPT:86511 Proc Modifiers : PORTABLE EXAM Reason for [...] 11, 2022 Date Verified: MAY 11, 2022 Power Screwdriver Operator E-Sig:/ES/SONJA OVALLES MD Report: CHEST 1 [...] Primary Interpreting Staff: SONJA OVALLES MD, RADIOLOGIST (Power Screwdriver Operator) /CDC May 10, 2022 03:49 CT HEAD (P): RADIOLOGY,OUTSIDE [facility] PM LUISANA EDDY [id number] -1935 M SERVICE Exm Date: MAY 10, 2022@15:49 Req Phys: CODIE LEON Loc: OP Unknown /05-13-2022@05:05 Img Loc: CT IMAGING Service: PRIMARY CARE - MED OFFICE (Case [id number] COMPLETE) CT HEAD/BRAIN W/O CONTRAST (CT Detailed) CPT:05266 Reason for Study: CHANGE IN MENTAL STATUS Clinical History: CHANGE IN MENTAL STATUS. ORDER ADMINISTRATIVELY ENTERED FOLLOWING SYSTEM OUTAGE. Report Status: Verified Date Reported: MAY 10, 2022 Date Verified: MAY 10, 2022 Power Screwdriver Operator E-Sig: Report: CT HEAD/BRAIN W/O CONTRAST [PRINTSET] HISTORY: Change in mental status. COMPARISON: CT from 05/07/2022. TECHNIQUE: Contiguous axial CT images from the level of the skull base through the skull apex, with coronal and s agittal reformats, performed at the local [place] facility. 321 images were received by the [place] National Teleradiology Program (NTP) for interpretation. RADIATION [...] study. READING PHYSICIAN: Akash Mccoy M.D. -[phone] 05/10/2022 17:35 PDT [facility] National Teleradiology Program [phone] (For Medical Practitioner Use Only ) Attention Patients / Veterans: If you have ques tions or concerns about these test results, please contact [facility] provider or primary care team. Primary Interpreting Staff: RADIOLOGY,OUTSIDE SERVICE, Staff Physician / May 08, 2022 07:45 CT T-SPINE (P): RADIOLOGY,OUTSIDE [facility] LUISANA EDDY [id number] -1935 M SERVICE Exm Date: MAY 08, 2022@19:45 Req Phys: CODIE LEON Loc: OP Unknown /05-13-2022@05:05 Img Loc: CT IMAGING Service: PRIMARY CARE - MED OFFICE (Case [id number] COMPLETE) CT SPINE THORACIC W/O CONTR AST (CT Detailed) CPT:42929 Reason for Study: mrsa bacteremia, spinal surge ry - r/o abscess or discitis Clinical History: [place] IS NOT under investigation for COVID-19 or is COVID-19 negative Defer to radiologist for final CT protocol. Responsible provider name and phone number to n otify for critical findings if other than user placing the order a nd pager listed below: User placing orders pager: [phone] LAST 3: Collection DT Specimen Test Name [...] GFR (eGF 44 L Ref: >=60 Allergies: ([place] only) SIMVASTATIN (Feb 29, 2004) CEPHALEXIN (Mar 01, 2004) Report Status: Verified Date Reported: MAY 08, 2022 Date Verified: MAY 08, 2022 Power Screwdriver Operator E-Sig: Report: CT SPINE THORACIC W/O CONTRAST [PRINTSET] HISTORY:MRSA bacteremia NUMBER OF IMAGES:1151 COMPARISON: Correlation with images from recent CT abdomen and pelvis May 06, 2022 TECHNIQUE: A non contrast CT of the thoracic sp ine was performed at the local [place]. Images were subsequently sent to [facility] for interpretation. Axial, coronal and [...] thoracic level. READING PHYSICIAN: Luisana Webb MD -[id number] [phone] 05/08/2022 19:20 PDT [facility] National Teleradiology Program [phone] (For Medical Practitioner Use Only ) Attention Patients / Veterans: If you have ques tions or concerns about these test results, please contact your o [facility] provider or primary care team. Primary Interpreting Staff: RADIOLOGY,OUTSIDE SERVICE, Staff Physician / May 08, 2022 04:48 CHEST 1 VIEW: RADIOLOGY,OUTSIDE [facility] PM LUISANA EDDY [id number] -1935 M SERVICE Exm Date: MAY 08, 2022@16:48 Req Phys: CODIE LEON Loc: OP Unknown /05-13-2022@05:05 Img Loc: MAIN X-RAY Service: PRIMARY CARE - MED OFFICE (Case [id number] COMPLETE) CHEST 1 VIEW (RAD Detailed) CPT:52819 Proc Modifiers : PORTABLE EXAM Reason for Study: dyspnea Clinical History: IS NOT under investigation for COVID-19 or is COVID-19 negative acute worsening of dyspnea Responsible provider name and phone number to notify for critical findings if other than user placing the order and pager listed below: User placing orders pager: [phone] amlini cell [phone] LAST CREATININE 1.1 (05/08/22) Report Status: Verified Date Reported: MAY 08, 2022 Date Verified: MAY 08, 2022 Power Screwdriver Operator E-Sig: Report: CHEST 1 VIEW HISTORY: dyspnea COMPARISON: 05/06/2022 TECHNIQUE: Frontal view(s) of the chest, submit nola to the [place] National Teleradiology Program (NTP) for interp retation. FINDINGS: Reduced lung volumes. Progressive cardiomegaly, and vascular congestion as well as diffuse interstitial prom inence with probable small effusions. Impression: Expiratory exam with findings of CHF and mild e santa READING PHYSICIAN: Nghia Menjivar M.D. -[id number] 10 05/08/2022 18:57 EDT [facility] National Teleradiology Program [phone] (For Medical Practitioner Use Only ) Attention Patients / Veterans: If you have ques tions or concerns about these test results, please contact your o [facility] provider or primary care team. Primary Interpreting Staff: RADIOLOGY,OUTSIDE SERVICE, Staff Physician / May 07, 2022 10:29 CT HEAD (P): SHANI POLANCO [facility] AM LUISANA EDDY [id number] -1935 M Exm Date: MAY 07, 2022@10:29 Req Phys: BETO AYALA Loc: OP Unknown/0 05-13-2022@05:05 Img Loc: CT IMAGING Service: PRIMARY CARE - MED OFFICE (Case [id number] COMPLETE) CT HEAD/BRAIN W/O CONTRAST ( CT Detailed) CPT:98941 Reason for Study: seizure noted at [facility] Clinical History: [place] IS NOT under investigation for COVID-19 or is COVID-19 negative Defer to radiologist for final CT protocol. Responsible provider name and phone number to n otify for critical findings if other than user placing the order a nd pager listed below: User placing orders pager: [phone] LAST 3: Collection DT Specimen Test Name [...] GFR (eGF 44 L Ref: >=60 Allergies: ([place] only) SIMVASTATIN (Feb 29, 2004) CEPHALEXIN (Mar 01, 2004) Report Status: Verified Date Reported: MAY 07, 2022 Date Verified: MAY 07, 2022 Power Screwdriver Operator E-Sig:/ES/SHANI POLANCO MD Report: EXAM: CT [...] lis nola below: User placing orders pager: [phone] LAST 3: Collecti on DT Specimen Test [...] Primary Interpreting Staff: SHANI POLANCO MD, RADIOLOGIST (Power Screwdriver Operator) /Javed May 06, 2022 11:40 CHEST 1 VIEW: RADIOLOGY,OUTSIDE [facility] AM LUISANA EDDY [id number] -1935 M SERVICE Exm Date: MAY 06, 2022@11:40 Req Phys: MODESTA VILLANUEVA Loc: [facility] EMERGENCY DEPT WALK-IN (Re Img Loc: MAIN X-RAY Service: Unknown (Case [id number] COMPLETE) CHEST 1 VIEW (RAD Detailed) C PT:11295 Proc Modifiers : PORTABLE EXAM Reason for [...] pager listed below: User placing orders pager: [phone] LAST CREATININE 1.2 (04/30/22) Report Status: Verified Date Reported: MAY 06, 2022 Date Verified: MAY 06, 2022 Power Screwdriver Operator E-Sig: Report: Technique: Frontal chest. No comparison Impression: Cardiac silhouette is mildly enlarged. There is mild pulmonary venous congestion. No definite pleural effusion . No pneumothorax seen. READING PHYSICIAN: Vern Donnelly M.D. -[id number] 07 05/06/2022 13:26 EDT [facility] National Teleradiology Program [phone] (For Medical Practitioner Use Only ) Attention Patients / Veterans: If you have ques tions or concerns about these test results, please contact your o rdering provider or primary care team. Primary Interpreting Staff: RADIOLOGY,OUTSIDE SERVICE, Staff Physician / May 06, 2022 10:36 CT (AP) ABDOMEN/PELVIS (P): RADIOLOGY,OUTSIDE [facility] AM LUISANA EDDY [id number] -1935 M SERVICE Exm Date: MAY 06, 2022@10:36 Req Phys: MODESTA VILLANUEVA Loc: [facility] EMERGENCY DEPT WALK-IN (Re Img Loc: CT IMAGING Service: Unknown (Case [id number] COMPLETE) CT (AP) ABDOMEN/PELVIS W CONT RAST(CT Detailed) CPT:57294 Reason for Study: fever, back pain Clinical [...] pager listed below: User placing orders pager: [phone] LAST 3: Collection DT Specimen Test Name [...] ESTIMATED GFR(eGF 44 L Ref: >=60 Allergies: ([place] only) SIMVASTATIN (Feb 29, 2004) CEPHALEXIN (Mar 01, 2004) To see allergies from all [place] locations click Re ports tab>Remote Data>All Available Sites>Clinical Reports>Aller gies. Report Status: Verified Date Reported: MAY 06, 2022 Date Verified: MAY 06, 2022 Power Screwdriver Operator E-Sig: Report: Exam: CT (AP) ABDOMEN/PELVIS W CONTRAST [PRINTS ET] Clinical History: fever, back pain Number of images: 918 Comparison: No priors available Technique: The study was protocoled and supervi sed at the local [place] facility. CT of the abdomen and pelvis was performed afte r the uneventful administration of iodinated contrast. Images we re received by the [place] National Teleradiology Program (NTP) for interpretation. Total [...] findings, above. READING PHYSICIAN: Eduin Donaldson M.D. -[phone] 05/06/2022 12:48 [facility] [employer] [phone] (For Medical Practitioner Use Only ) Attention Patients / Veterans: If you have ques tions or concerns about these test results, please contact your o [facility] provider or primary care team. Primary Interpreting Staff: RADIOLOGY,OUTSIDE SERVICE, Staff Physician / May 06, 2022 10:35 CT HEAD/BRAIN W/O CONTRAST: RADIOLOGY,OUTSIDE [facility] LUISNAA EDDY [id number] -1935 M SERVICE Exm Date: MAY 06, 2022@10:35 Req Phys: MODESTA VILLANUEVA Loc: [facility] EMERGENCY DEPT WALK-IN (Re Img Loc: CT IMAGING Service: Unknown (Case 64 COMPLETE) CT HEAD/BRAIN W/O CONTRAST (C T Detailed) CPT:73082 Reason for Study: falls, blood thinner, AMS, se izure Clinical History: falls, blood thinner, AMS, seizure IS under investigation (PUI) for COVID- 19 or is COVID-19+ Defer to radiologist for final CT protocol. Responsible provider name and phone number to n otify for critical findings if other than user placing the order a nd pager listed below: User placing orders pager: [phone] LAST 3: Collection DT Specimen Test Name [...] ESTIMATED GFR(eGF 44 L Ref: >=60 Allergies: ([place] only) SIMVASTATIN (Feb 29, 2004) CEPHALEXIN (Mar 01, 2004) To see allergies from all [place] locations click Re ports tab>Remote Data>All Available Sites>Clinical Reports>Aller gies. Report Status: Verified Date Reported: MAY 06, 2022 Date Verified: MAY 06, 2022 Power Screwdriver Operator E-Sig: Report: CT HEAD/BRAIN W/O CONTRAST Clinical History: falls, blood thinner, AMS, se izure Number of Images: 532 Comparison: 03/12/2022 Technique: The study was protocoled and supervi sed at the local [place] facility. CT of the head without contrast. I mages were subsequently received by the [place] National Telera diology Program (NTP) for interpretation. [...] T findings. READING PHYSICIAN: Eduin Donaldson M.D. -[phone] 05/06/2022 12:30 [facility] National Teleradiology Program [phone] (For Medical Practitioner Use Only ) Attention Patients / Veterans: If you have ques tions or concerns about these test results, please contact [facility] or primary care team. Primary Interpreting Staff: RADIOLOGY,OUTSIDE SERVICE, Staff Physician / May 06, 2022 10:35 CT CERVICAL SPINE W/O CONTRAST: RADIOLOGY,OUT SIDE [facility] AM LUISANA EDDY [id number] 1935 M SERVICE Exm Date: MAY 06, 2022@10:35 Req Phys: MODESTA VILLANUEVA Loc: [facility] EMERGENCY DEPT WALK-IN (Re Img Loc: CT IMAGING Service: Unknown (Case 65 COMPLETE) CT CERVICAL SPINE W/O CONTRAS T (CT Detailed) CPT:03696 Reason for Study: falls, blood thinner, AMS, se izure Clinical History: falls, blood thinner, AMS, seizure IS under investigation (PUI) for COVID- 19 or is COVID-19+ Defer to radiologist for final CT protocol. Responsible provider name and phone number to n otify for critical findings if other than user placing the order a nd pager listed below: User placing orders pager: [phone] LAST 3: Collection DT Specimen Test Name [...] ESTIMATED GFR(eGF 44 L Ref: >=60 Allergies: ([place] only) SIMVASTATIN (Feb 29, 2004) CEPHALEXIN (Mar 01, 2004) To see allergies from all [facility] locations click Re ports tab>Remote Data>All Available Sites>Clinical Reports>Aller gies. Report Status: Verified Date Reported: MAY 06, 2022 Date Verified: MAY 06, 2022 Power Screwdriver Operator E-Sig: Report: CT CERVICAL SPINE W/O CONTRAST HISTORY:falls, blood thinner, AMS, seizure NUMBER OF IMAGES:770 COMPARISON: None available. TECHNIQUE: A non contrast CT of the cervical sp ine [facility] sent to [facility] for interpretation. Axial, coronal and [...] tissues: 11 mm subcutaneous cyst in the [facility] upper neck. Impression: -Motion artifact limits the exam. -Given this limitation, no acute osseous abnorm ality. -Moderate multilevel degenerative change throug hout the cervical spine. -Ancillary findings, above. READING PHYSICIAN: Eduin Donaldson M.D. -[phone] 05/06/2022 12:33 [facility] National Teleradiology Program [phone] (For Medical Practitioner Use Only ) Attention Patients / Veterans: If you have ques tions or concerns about these test results, please contact your [facility] provider or primary care team. [...] the Encounter. The data comes from all [place] treatment facilities. Date/Time Pathology Report Provider Source May 09, 2022 05:30 AM LR MICROBIOLOGY REPORT: [place] [facility] [place] [facility] Reporting Lab: [facility] [CLIA# [id number]] [place] [address] Accession [UID]: [id number] [[id number]] Receiv ed: May 09, 2022@01:35 Collection sample: BLOOD Collection date: Apr 05:30 Provider: CODIE LEON Comment on specimen: LEFT ARM, RECEIVED 2 BLOOD CULTURE BOTTLES Test(s) ordered: CULTURE & SUSCEPTIBILITY...... 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 R TRIMETH/SULFA................. S TETRACYCLINE.................. S CLINDAMYCIN................... S RIFAMPIN...................... S VANCOMYCIN.................... S Bacteriology Remark(s): VANCOMYCIN SHAMIKA: <=0.5 ug/mL THIS REPORT IS FINAL =--=--=--=--=--=--=--=--=--=--=--=--=--= --=--=--=--=--=--=--=--=--=--=--=--=-- Performing Laboratory: Bacteriology Report Performed By: [facility] [CLIA# [id number]] [place] [address] May 08, 2022 03:23 PM LR MICROBIOLOGY REPORT: [facility] Reporting Lab: [facility] [CLIA# [id number]] [place] [address] Accession [UID]: [id number] [[id number]] Receiv ed: May 08, 2022@15:41 Collection sample: BLOOD Collection date: Apr 15:23 Provider: CODIE LEON Comment on specimen: LEFT ARM, RECEIVED 2 BLOOD CULTURE BOTTLES Test(s) ordered: CULTURE & SUSCEPTIBILITY...... completed: May 10, 2022 * BACTERIOLOGY FINAL REPORT => May 10, 2022 16:3 1 TECH CODE: [id number] CULTURE RESULTS: GROWTH SAME THAT OF ANOTHER CULTURE Comment: FOR SUSCEPTIBILITY REPORT SEE PREVIOUS POSITIVE SAME MB 22 [id number] ( 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 from Anaerobic bottle ) ( Recovered from Aerobic bottle ) Bacteriology Remark(s): THIS REPORT IS FINAL =--=--=--=--=--=--=--=--=--=--=--=--=--= --=--=--=--=--=--=--=--=--=--=--=--=-- Performing Laboratory: Bacteriology Report Performed By: [facility] [CLIA# [id number]] [place] [address] May 08, 2022 03:21 PM LR MICROBIOLOGY REPORT: [facility] Reporting Lab: [facility] [CLIA# [id number]] [place] [address] Accession [UID]: [id number] [[id number]] Receiv ed: May 08, 2022@15:40 Collection sample: BLOOD Collection date: Apr 15:21 Provider: CODIE LEON Comment on specimen: RT ARM, RECEIVED 2 BLOOD CU LTURE BOTTLES Test(s) ordered: CULTURE & SUSCEPTIBILITY...... completed: May 10, 2022 * BACTERIOLOGY FINAL REPORT => May 10, 2022 16:3 1 TECH CODE: [id number] CULTURE RESULTS: GROWTH SAME THAT OF ANOTHER CULTURE Comment: FOR SUSCEPTIBILITY REPORT SEE PREVIOUS POSITIVE SAME MB 22 [id number] ( 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 from Anaerobic bottle ) ( Recovered from Aerobic bottle ) Bacteriology Remark(s): THIS REPORT IS FINAL =--=--=--=--=--=--=--=--=--=--=--=--=--= --=--=--=--=--=--=--=--=--=--=--=--=-- Performing Laboratory: Bacteriology Report Performed By: [facility] [CLIA# [id number]] [place] [address] May 07, 2022 05:30 AM LR MICROBIOLOGY REPORT: [facility] Reporting Lab: [facility] [CLIA# [id number] 147] [place] [address] Accession [UID]: [id number] [[id number]] Receiv ed: May 07, 2022@01:35 Collection sample: [...] REPORT SEE PREVIOUS POSITIVE SAME MB 22 [id number] ( 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 from Aerobic bottle ) ( Recovered from Anaerobic bottle ) Bacteriology Remark(s): THIS REPORT IS FINAL =--=--=--=--=--=--=--=--=--=--=--=--=--= --=--=--=--=--=--=--=--=--=--=--=--=-- Performing Laboratory: Bacteriology Report Performed By: [facility] [CLIA# [id number]] [place] [address] May 06, 2022 10:51 AM LR MICROBIOLOGY REPORT: [facility] Reporting Lab: [facility] [CLIA# [id number] 147] [place] [address] Accession [UID]: [id number] [[id number]] Receiv ed: May 06, 2022@11:32 Collection sample: [...] --=--=--=--=--=--=--=--=--=--=--=--=-- Performing Laboratory: Bacteriology Report Performed By: [facility] [CLIA# [id number]] [place] [address] May 06, 2022 10:34 AM LR MICROBIOLOGY REPORT: [facility] Reporting Lab: [facility] [CLIA# [id number] 147] [place] [address] Accession [UID]: [id number] [[id number]] Receiv ed: May 06, 2022@10:51 Collection sample: BLOOD Collection date: Apr 10:34 Provider: MODESTA VILLANUEVA Comment on specimen: RECEIVED 2 BLOOD CULTURE MILAN TTCOX MONETT Test(s) ordered: CULTURE & SUSCEPTIBILITY...... 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 Result reported to Codie Loen MD 05/08/22 @0824 -[facility] THIS REPORT IS FINAL =--=--=--=--=--=--=--=--=--=--=--=--=--= --=--=--=--=--=--=--=--=--=--=--=--=-- Performing Laboratory: Bacteriology Report Performed By: [facility] [CLIA# [id number]] [place] [address] May 06, 2022 10:00 AM LR MICROBIOLOGY REPORT: [facility] Reporting Lab: [facility] [CLIA# [id number] 147] [place] [address] Accession [UID]: [id number] [[id number]] Receiv ed: May 06, 2022@10:41 Collection sample: [...] REPORT SEE PREVIOUS POSITIVE SAME MB 22 [id number] ( 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 from Anaerobic bottle ) ( Recovered from Aerobic bottle ) Bacteriology Remark(s): THIS REPORT IS FINAL =--=--=--=--=--=--=--=--=--=--=--=--=--= --=--=--=--=--=--=--=--=--=--=--=--=-- Performing Laboratory: Bacteriology Report Performed By: [facility] [CLIA# [id number]] [place] [address]
--- OUTSIDE RECORDS SUMMARY | 2022-05-15 09:24 | XMS_ITS | Encounter Summary ---
:1935 Author Organization [facility] rs Address [address] [place] [address] Support Name Relationship Address Phone WADE LORENZO Unavailable [address] [place] [address] WADE LORENZO Unavailable [address] [place] [address] ARACELI MARSHALL Unavailable [address] [place] [address] ARACELI MARSHALL Unavailable [address] [place] [address] Insurance Providers: All historical and current Section [...] [place] MED[place] MCR Aug 19, [id number] Kristel EDDY [facility] (WNR) ADVANTAGE (WNR) 2016 8 [id number] [phone] [facility] [place] MEDICARE M[place] Aug 19, [id number] Kristel EDDY [facility] (WNR) ADVANTAGE (WNR) 2016 8 [id number] [phone] [facility] 1 Selected Encounter This section includes the information on record at [place] for the Encounter. Date/Time Encounter Type Encounter Description Reason Provider Source May 11, 2022 03:01 Outpatient Encounter PRIMARY CARE/MEDICINE PM IHE Encounter Template Text not used by [place] Plan of Treatment: Future Appointments (+ 6 months) and Future Tests (+/- 45 days) The Plan of Treatment section includes future care activities for the patient from all [place] [facility]. This section includes future appointments and future orders which are active, pending orscheduled.Future Appointments This section includes appointments that were scheduled to occur 6 months from the date of the Encounter, up to a maximum of 20 appointments. The data comes from all [place] treatment facilities. Appointment Date/Time Appointment Type Appointment [...] the Encounter. The data comes from all [facility]. Test Date/Time Test Type Test Details Facility Name Apr 30, 2022 08:21 Laboratory - Chemistry URINALYSIS URINE WC ON CE [facility] AM Order Apr 30, 2022 08:21 Laboratory - CULTURE & SUSCEPTIBILITY [facility] AM Microbiology Order URINE WC May 06, 2022 12:00 Laboratory - Blood ABO/RH - LAB BLOOD [facility] AM Bank Order May 06, 2022 10:11 Laboratory - Blood TYPE & SCREEN - LAB [facility] AM Bank Order BLOOD WC May 06, 2022 10:27 Pharmacy [facility] AM Medication Order May 06, 2022 10:28 [facility] AM Infusion Order May 06, 2022 10:34 [facility] AM Infusion Order May 06, 2022 10:41 [facility] AM Infusion Order May 06, 2022 12:15 [facility] PM Medication Order May 06, 2022 01:31 Pharmacy [facility] PM Medication Order May 06, 2022 04:49 Pharmacy [facility] PM Medication Order May 07, 2022 01:00 Laboratory - CULTURE & SUSCEPTIBILITY [facility] PM Microbiology Order BLOOD WC ONCE May 11, 2022 09:07 Laboratory - CULTURE & SUSCEPTIBILITY [facility] AM Microbiology Order BLOOD WC May 11, 2022 09:07 Laboratory - CULTURE & SUSCEPTIBILITY [facility] AM Microbiology Order BLOOD WC May 11, 2022 09:38 Laboratory - Chemistry EOSINOPHIL SMEAR,URINE [facility] AM Order URINE WC ONCE May 11, 2022 09:38 Laboratory - Chemistry URINALYSIS URINE WC ON CE [facility] AM Order May 11, 2022 09:38 Laboratory - Chemistry FENA URINE WC ONCE [facility] AM Order Lab Results: +/- 30 days of the encounter This section includes the Chemistry and Hematology Lab Results on record with [place] for the patient. Radiology Reports and Pathology [...] May 11, 2022 11:53 AM Reporting Lab: [facility] [address] Performing Lab: [facility] [address] FINGERSTICK GLUCOSE 367 H 70-100 May 11, 2022 07:05 AM [facility] CBC Specim en Type: BLOOD No comment enter ed. Ordering Provid er: OG DIAL Report Released Date/Time: May 11, 2022 04:46 AM Reporting Lab: [facility] [address] [facility] [address] Performing Lab: [facility] [address] WBC 15.93 H 4.0-11.0 RBC 3.60 L 4.6-6.2 HGB 11.2 L 13.5-17.9 HCT 35.3 L 41-54 MCV 98.1 80-100 MCH 31.1 27-33 MCHC 31.7 L 32.0-37.5 PLT 231 150-400 MPV 11.2 H 7.4-10.4 RDW 15.2 H 11.5-14.5 May 11, 2022 07:05 AM [facility] BNP Specim en Type: PLASMA No comment enter ed. Ordering Provid er: CODIE LEON Report Released Date/Time: May 11, 2022 09:15 AM Reporting Lab: [facility] [address] [facility] [address] Performing Lab: [facility] [address] BNP 59 <99 May 11, 2022 07:05 AM [facility] CK,TOTAL Specim en Type: PLASMA No comment enter ed. Ordering Provid er: CODIE LEON Report Released Date/Time: May 11, 2022 09:08 AM Reporting Lab: [facility] [address] [address] Performing Lab: [facility] [address] CK,TOTAL 16 L 39-208 May 11, 2022 07:05 [facility] LIVER FUNCTION TESTS Spec imen Type: PLASMA AM No comment enter ed. Ordering Provid er: CODIE LEON Report Released Date/Time: May 11, 2022 09:08 AM Reporting Lab: [facility] [address] Performing Lab: [facility] [address] BILIRUBIN, TOTAL 1.6 H 0.2-1.2 ALKALINE PHOSPHATASE 102 40-150 ALT/SGPT 42 <55 AST/SGOT 30 <34 GAMMA GTP 52 <64 DIR. BILIRUBIN 1.2 H <0.5 May 11, 2022 07:05 [facility] BASIC METABOLIC Specimen Type: PLASMA AM PANEL+MG No comment enter ed. Ordering Provid er: OG DIAL Report Released Date/Time: May 11, 2022 04:46 AM Reporting Lab: [facility] [address] Performing Lab: [facility] [address] CREATININE 1.6 H 0.7-1.2 UREA NITROGEN 28 H 8-26 GLUCOSE 396 H 70-100 SODIUM 150 H 136-145 POTASSIUM 3.7 3.5-5.1 CHLORIDE 120 H 98-107 CO2 23 22-29 CALCIUM 8.4 8.4-10.2 MAGNESIUM 2.1 1.6-2.6 ANION GAP 7 5-15 CREAT EGFR(CKD-EPI) 42 L >60 May 11, 2022 06:14 [facility] FINGERSTICK GLUCOSE Speci men Type: BLOOD AM Comment: aMrk casillas Nurse Notified Ordering Provid er: CODIE LEON Report Released Date/Time: May 11, 2022 06:42 AM Reporting Lab: [facility] [address] [facility] [address] Performing Lab: [facility] [address] [facility] [address] FINGERSTICK GLUCOSE 345 H 70-100 May 11, 2022 02:24 [facility] FINGERSTICK GLUCOSE Speci men Type: BLOOD AM Comment: Mark casillas Ordering Provid er: CODIE LEON Report Released Date/Time: May 11, 2022 02:44 AM Reporting Lab: [facility] [address] [facility] [address] Performing Lab: [facility] [address] [facility] [address] FINGERSTICK GLUCOSE 375 H 70-100 May 10, 2022 08:38 [facility] FINGERSTICK GLUCOSE Speci men Type: BLOOD PM Comment: Mark casillas Ordering Provid er: CODIE LEON Report Released Date/Time: May 11, 2022 12:31 AM Reporting Lab: [facility] [address] [facility] [address] Performing Lab: [facility] [address] [facility] [address] FINGERSTICK GLUCOSE 346 H 70-100 May 10, 2022 05:05 [facility] FINGERSTICK GLUCOSE Speci men Type: BLOOD PM Comment: Mark casillas Nurse Notified Ordering Provid er: CODIE LEON Report Released Date/Time: May 10, 2022 11:50 PM Reporting Lab: [facility] [address] [facility] [address] Performing Lab: [facility] [address] [facility] [address] FINGERSTICK GLUCOSE 245 H 70-100 May 10, 2022 02:00 [facility] VANCOMYCIN (TROUGH) Speci men Type: PLASMA PM No comment enter ed. Ordering Provid er: CODIE LEON Report Released Date/Time: May 11, 2022 01:34 AM Reporting Lab: [facility] [address] [facility] [address] Performing Lab: [facility] [address] [facility] [address] VANCOMYCIN (TROUGH) 31.8 H 10.0-15.0 May 10, 2022 [facility] BASIC METABOLIC Specimen Typ e: PLASMA 02:00 PM PANEL+MG No comment enter ed. Ordering Provid er: CODIE LEON Report Released Date/Time: May 11, 2022 01:34 AM Reporting Lab: [facility] [address] Performing Lab: [facility] [address] CREATININE 1.1 .7-1.2 UREA NITROGEN 22 8-26 [...] May 10, 2022 08:52 PM Reporting Lab: [facility] [address] Performing Lab: [facility] [address] WBC 16.24 H 4.0-11.0 RBC 3.76 L [...] May 11, 2022 12:31 AM Reporting Lab: [facility] [address] Performing Lab: [facility] [address] [facility] [address] FINGERSTICK GLUCOSE 253 H 70-100 May 10, 2022 06:16 [facility] FINGERSTICK GLUCOSE Speci men Type: BLOOD AM Comment: Mark casillas Nurse Notified Ordering Provid er: CODIE LEON Report Released Date/Time: May 10, 2022 11:50 PM Reporting Lab: [facility] [address] [facility] [address] Performing Lab: [facility] [address] [facility] [address] FINGERSTICK GLUCOSE 271 H 70-100 May 09, 2022 09:07 [facility] FINGERSTICK GLUCOSE Speci men Type: BLOOD PM Comment: Mark casillas Ordering Provid er: CODIE LEON Report Released Date/Time: May 10, 2022 11:50 PM Reporting Lab: [facility] [address] [facility] [address] Performing Lab: [facility] [address] [facility] [address] FINGERSTICK GLUCOSE 209 H 70-100 May 09, 2022 05:33 [facility] FINGERSTICK GLUCOSE Speci men Type: BLOOD PM Comment: Mark casillas Nurse Notified Ordering Provid er: CODIE LEON Report Released Date/Time: May 09, 2022 05:53 PM Reporting Lab: [facility] [address] [facility] [address] Performing Lab: [facility] [address] FINGERSTICK GLUCOSE 251 H 70-100 May 09, 2022 02:09 [facility] VANCOMYCIN (PEAK) Specime n Type: SERUM PM No comment enter ed. Ordering Provid er: AMARIS DE JESUS Report Released Date/Time: May 09, 2022 09:33 AM Reporting Lab: [facility] [address] [facility] [address] Performing Lab: [facility] [address] [facility] [address] VANCOMYCIN (PEAK) 24.2 20.0-40.0 May 09, 2022 11:19 [facility] FINGERSTICK GLUCOSE Speci men Type: BLOOD AM Comment: Mark casillas Nurse Notified Ordering Provid er: CODIE LEON Report Released Date/Time: May 09, 2022 11:38 AM Reporting Lab: [facility] [address] [facility] [address] Performing Lab: [facility] [address] [address] FINGERSTICK GLUCOSE 240 H 70-100 May 09, 2022 08:13 [facility] VANCOMYCIN (TROUGH) Speci men Type: SERUM AM No comment enter ed. Ordering Provid er: AMARIS DE JESUS Report Released Date/Time: May 08, 2022 11:14 AM Reporting Lab: [facility] [address] [facility] [address] Performing Lab: [facility] [address] [facility] [address] VANCOMYCIN (TROUGH) 16.1 H 10.0-15.0 May 09, 2022 05:33 AM [facility] CBC & DIFF Specim en Type: BLOOD Comment: Automa nola Differential Performed Ordering Provid er: CODIE LEON Report Released Date/Time: May 08, 2022 05:27 PM Reporting Lab: [facility] [address] Performing Lab: [facility] [address] [facility] [address] WBC 14.92 H 4.0-11.0 RBC 3.41 L [...] May 08, 2022 05:27 PM Reporting Lab: [facility] [address] Performing Lab: [facility] [address] CREATININE 1.2 0.7-1.2 UREA NITROGEN 25 8-26 [...] May 09, 2022 07:27 AM Reporting Lab: [facility] [address] Performing Lab: [facility] [address] FINGERSTICK GLUCOSE 295 H 70-100 May 08, 2022 09:32 PM [facility] EXTRA MINT TUBE Specim en Type: PLASMA No comment enter ed. Ordering Provid er: MD ESTEBAN Report Released Date/Time: May 08, 2022 09:32 PM Reporting Lab: [facility] [address] Performing Lab: [facility] [address] EXTRA MINT TUBE RECEIVED May 08, 2022 09:32 PM [facility] EXTRA PURPLE TUBE Spec imen Type: BLOOD No comment enter ed. Ordering Provid er: MD ESTEBAN Report Released Date/Time: May 08, 2022 09:32 PM Reporting Lab: [facility] [address] Performing Lab: [facility] [address] EXTRA PURPLE TUBE RECEIVED May 08, 2022 09:32 PM [facility] EXTRA BLUE TUBE Specim en Type: PLASMA No comment enter ed. Ordering Provid er: MD ESTEBAN Report Released Date/Time: May 08, 2022 09:32 PM Reporting Lab: [facility] [address] [facility] [address] Performing Lab: [facility] [address] [facility] [address] EXTRA BLUE TUBE RECEIVED May 08, 2022 09:32 [facility] EXTRA GOLD GEL TUBE Speci men Type: SERUM PM No comment enter ed. Ordering Provid er: MD ESTEBAN Report Released Date/Time: May 08, 2022 09:32 PM Reporting Lab: [facility] [address] [facility] [address] Performing Lab: [facility] [address] [facility] [address] EXTRA GOLD GEL TUBE RECEIVED May 08, 2022 09:32 PM [facility] LACTIC ACID Specim en Type: PLASMA No comment enter ed. Ordering Provid er: OG DIAL Report Released Date/Time: May 08, 2022 09:49 PM Reporting Lab: [facility] [address] [facility] [address] Performing Lab: [facility] [address] [facility] [address] LACTIC ACID 2.5 H 0.5-2.2 May 08, 2022 09:32 PM [facility] BNP Specim en Type: PLASMA No comment enter ed. Ordering Provid er: OG DIAL Report Released Date/Time: May 08, 2022 09:50 PM Reporting Lab: [facility] [address] [facility] [address] Performing Lab: [facility] [address] [facility] [address] BNP 897 H <99 May 08, 2022 09:32 PM [facility] EXTRA BRASWELL TUBE Specim en Type: PLASMA No comment enter ed. Ordering Provid er: MD ESTEBAN Report Released Date/Time: May 08, 2022 09:37 PM Reporting Lab: [facility] [address] [facility] [address] Performing Lab: [facility] [address] [facility] [address] EXTRA BRASWELL TUBE RECEIVED May 08, 2022 09:32 PM [facility] CBC Specim en Type: BLOOD No comment enter ed. Ordering Provid er: OG DIAL Report Released Date/Time: May 08, 2022 09:50 PM Reporting Lab: [facility] [address] [facility] [address] Performing Lab: [facility] [address] WBC 18.54 H 4.0-11.0 RBC 3.68 L 4.6-6.2 HGB 11.5 L 13.5-17.9 HCT 35.1 L 41-54 MCV 95.4 80-100 MCH 31.3 27-33 MCHC 32.8 32.0-37.5 PLT 221 150-400 MPV 11.1 H 7.4-10.4 RDW 14.9 H 11.5-14.5 May 08, 2022 [facility] COMPREHENSIVE METABOLIC Spec imen Type: PLASMA 09:32 PM PANEL+MG No comment enter ed. Ordering Provid er: OG DIAL Report Released Date/Time: May 08, 2022 09:50 PM Reporting Lab: [facility] [address] Performing Lab: [facility] [address] CREATININE 1.3 H 0.7-1.2 UREA NITROGEN 26 [...] EGFR(CKD-EPI) 54 L >60 May 08, 2022 09:32 PM [facility] BLOOD GASES Specim en Type: VENOUS BLOOD Comment: O2 THE RAPY = 3L PM Ordering Provid er: OG DIAL Report Released Date/Time: May 08, 2022 09:50 PM Reporting Lab: [facility] [address] Performing Lab: [facility] [address] PH 7.36 7.33-7.43 PCO2 47 41-51 BICARBONATE 24.4 21.0-30.0 PO2 31 L 35-40 OXYGEN SATURATION 54.7 L 70.0-75.0 PH(TEMP CORRECTED) 7.37 7.33-7.43 PCO2(TEMP CORRECTED) 46 41-51 PO2(TEMP CORRECTED) 31 L 35-40 PATIENT TEMPERATURE 36.7 May 08, 2022 08:27 [facility] FINGERSTICK GLUCOSE Speci men Type: BLOOD PM Comment: Mark casillas Nurse Notified Ordering Provid er: CODIE LEON Report Released Date/Time: May 08, 2022 08:55 PM Reporting Lab: [facility] [address] [facility] [address] Performing Lab: [facility] [address] [facility] [address] FINGERSTICK GLUCOSE 272 H 70-100 May 08, 2022 06:56 [facility] FINGERSTICK GLUCOSE Speci men Type: BLOOD PM Comment: Mark casillas Ordering Provid er: CODIE LEON Report Released Date/Time: May 08, 2022 07:08 PM Reporting Lab: [facility] [address] [facility] [address] Performing Lab: [facility] [address] [facility] [address] FINGERSTICK GLUCOSE 262 H 70-100 May 08, 2022 04:50 [facility] FINGERSTICK GLUCOSE Speci men Type: BLOOD PM Comment: Nurse Notified Ordering Provid er: CODEI LEON Report Released Date/Time: May 08, 2022 05:14 PM Reporting Lab: [facility] [address] [facility] [address] Performing Lab: [facility] [address] [facility] [address] FINGERSTICK GLUCOSE 330 H 70-100 May 08, 2022 11:21 [facility] FINGERSTICK GLUCOSE Speci men Type: BLOOD AM Comment: Mark casillas Nurse Notified Ordering Provid er: CODIE LEON Report Released Date/Time: May 08, 2022 11:51 AM Reporting Lab: [facility] [address] [facility] [address] Performing Lab: [facility] [address] [facility] [address] FINGERSTICK GLUCOSE 231 H 70-100 May 08, 2022 07:25 AM [facility] CBC & DIFF Specim en Type: BLOOD Comment: Automa nola Differential Performed Ordering Provid er: BETO AYALA Report Released Date/Time: May 07, 2022 12:28 PM Reporting Lab: [facility] [address] Performing Lab: [facility] [address] WBC 16.29 H 4.0-11.0 RBC 3.38 L [...] Lab: [facility] [address] Performing Lab: [facility] [address] .INR 1.2 H 0.8-1.1 .PT 14.2 H 9.4-12.5 May 08, 2022 [facility] COMPREHENSIVE METABOLIC Spec imen Type: PLASMA 07:25 AM PANEL+MG No comment enter ed. Ordering Provid er: BETO AYALA Report Released Date/Time: May 07, 2022 12:28 PM Reporting Lab: [facility] [address] Performing Lab: [facility] [address] CREATININE 1.1 0.7-1.2 UREA NITROGEN 27 H [...] [facility] [address] [facility] [address] Performing Lab: [facility] [address] FINGERSTICK GLUCOSE 276 H 70-100 May 07, 2022 08:36 [facility] FINGERSTICK GLUCOSE Speci men Type: BLOOD PM Comment: Nurse Notified Ordering Provid er: CODIE LEON Report Released Date/Time: May 08, 2022 12:29 AM Reporting Lab: [facility] [address] [facility] [address] Performing Lab: [facility] [address] [facility] [address] FINGERSTICK GLUCOSE 282 H 70-100 May 07, 2022 07:04 PM [facility] LACTIC ACID Specim en Type: PLASMA No comment enter ed. Ordering Provid er: BETO AYALA Report Released Date/Time: May 07, 2022 06:28 PM Reporting Lab: [facility] [address] [facility] [address] Performing Lab: [facility] [address] [facility] [address] LACTIC ACID 2.0 0.5-2.2 May 07, 2022 04:46 [facility] FINGERSTICK GLUCOSE Speci men Type: BLOOD PM Comment: Nurse Notified Ordering Provid er: BETO AYALA Report Released Date/Time: May 07, 2022 05:00 PM Reporting Lab: [facility] [address] [facility] [address] Performing Lab: [facility] [address] [facility] [address] FINGERSTICK GLUCOSE 274 H 70-100 May 07, 2022 12:47 [facility] FINGERSTICK GLUCOSE Speci men Type: BLOOD PM Comment: Mark casillas Nurse Notified Ordering Provid er: BETO AYALA Report Released Date/Time: May 07, 2022 05:32 PM Reporting Lab: [facility] [address] [facility] [address] Performing Lab: [facility] [address] [facility] [address] FINGERSTICK GLUCOSE 309 H 70-100 May 07, 2022 06:35 [facility] FINGERSTICK GLUCOSE Speci men Type: BLOOD AM Comment: Mark casillas Nurse Notified Ordering Provid er: GAYLA DOMINGUEZ Report Released Date/Time: May 07, 2022 06:46 AM Reporting Lab: [facility] [address] [facility] [address] Performing Lab: [facility] [address] [facility] [address] FINGERSTICK GLUCOSE 352 H 70-100 May 07, 2022 06:15 AM [facility] ALBUMIN Specim en Type: PLASMA No comment enter ed. Ordering Provid er: GAYLA DOMINGUEZ Report Released Date/Time: May 06, 2022 06:33 PM Reporting Lab: [facility] [address] [facility] [address] Performing Lab: [facility] [address] [facility] [address] ALBUMIN 3.0 L 3.5-5.2 May 07, 2022 [facility] COMPREHENSIVE METABOLIC Spec imen Type: PLASMA 06:15 AM PANEL+MG No comment enter ed. Ordering Provid er: GAYLA DOMINGUEZ Report Released Date/Time: May 06, 2022 09:11 PM Reporting Lab: [facility] [address] [facility] [address] Performing Lab: [facility] [address] [facility] [address] CREATININE 1.2 0.7-1.2 UREA NITROGEN 25 8-26 [...] [facility] [address] [facility] [address] Performing Lab: [facility] [address] [facility] [address] WBC 20.25 H 4.0-11.0 RBC 3.54 L [...] [facility] [address] [facility] [address] Performing Lab: [facility] [address] [facility] [address] LACTIC ACID 2.7 H 0.5-2.2 May 06, 2022 10:45 [facility] FINGERSTICK GLUCOSE Speci men Type: BLOOD PM Comment: Mark casillas Nurse Notified Ordering Provid er: GAYLA DOMINGUEZ Report Released Date/Time: May 07, 2022 12:08 AM Reporting Lab: [facility] [address] [facility] [address] Performing Lab: [facility] [address] [facility] [address] FINGERSTICK GLUCOSE 320 H 70-100 May 06, 2022 06:53 [facility] MRSA SURVL NARES Specimen Type: NARES PM DNA No comment enter ed. Ordering Provid er: GAYLA DOMINGUEZ Report Released Date/Time: May 06, 2022 06:33 PM Reporting Lab: [facility] [address] [facility] [address] Performing Lab: [facility] [address] [facility] [address] MRSA SURVL NARES DNA POSITIVE HH Negative May 06, 2022 06:51 PM [facility] LACTIC ACID Specim en Type: PLASMA No comment enter ed. Ordering Provid er: GAYLA DOMINGUEZ Report Released Date/Time: May 06, 2022 06:04 PM Reporting Lab: [facility] [address] [facility] [address] Performing Lab: [facility] [address] [facility] [address] LACTIC ACID 3.1 H 0.5-2.2 May 06, 2022 06:51 [facility] CARDIAC TROPONIN I Specim en Type: PLASMA PM No comment enter ed. Ordering Provid er: GAYLA DOMINGUEZ Report Released Date/Time: May 06, 2022 06:05 PM Reporting Lab: [facility] [address] [facility] [address] Performing Lab: [facility] [address] [facility] [address] CARDIAC TROPONIN I <0.028 <0.028 May 06, 2022 06:51 [facility] EXTRA GOLD GEL TUBE Speci men Type: SERUM PM No comment enter ed. Ordering Provid er: GAYLA DOMINGUEZ Report Released Date/Time: May 06, 2022 06:52 PM Reporting Lab: [facility] [address] [facility] [address] Performing Lab: [facility] [address] [facility] [address] EXTRA GOLD GEL TUBE RECEIVED May 06, 2022 06:51 [facility] C-REACTIVE PROTEIN Specim en Type: PLASMA PM No comment enter ed. Ordering Provid er: GAYLA DOMINGUEZ Report Released Date/Time: May 06, 2022 09:29 PM Reporting Lab: [facility] [address] [facility] [address] Performing Lab: [facility] [address] [facility] [address] C-REACTIVE PROTEIN 392.40 H <5.00 May 06, 2022 10:51 AM [facility] URINALYSIS Specim en Type: URINE No comment enter ed. Ordering Provid er: MODESTA VILLANUEVA Report Released Date/Time: May 06, 2022 10:11 AM Reporting Lab: [facility] [address] [facility] [address] Performing Lab: [facility] [address] URINE COLOR YELLOW SPECIFIC GRAVITY 1.020 1.003-1.035 [...] [facility] [address] [facility] [address] Performing Lab: [facility] [address] COVID-19 (CEPHEID) Not Detected Not Dete cted May 06, 2022 10:20 AM [facility] POC ABG/LACTATE Specim en Type: VENOUS BLOOD No comment enter ed. Ordering Provid er: MODESTA VILLANUEVA Report Released Date/Time: May 06, 2022 10:22 AM Reporting Lab: [facility] [address] [facility] [address] Performing Lab: [facility] [address] [facility] [address] POC PH 7.410 7.31-7.41 POC PCO2 28.9 [...] [place] [address] [facility] [address] Performing Lab: [facility] [address] [facility] [address] PHOSPHORUS 2.5 2.3-4.7 May 06, 2022 10:00 [facility] PROTHROMBIN TIME/INR Spec imen Type: PLASMA AM No comment enter ed. Ordering Provid er: MODESTA VILLANUEVA Report Released Date/Time: May 06, 2022 10:11 AM Reporting Lab: [facility] [address] [facility] [address] Performing Lab: [facility] [address] [facility] [address] .INR 2.5 H 0.8-1.1 .PT 29.2 H [...] [place] [address] [facility] [address] Performing Lab: [facility] [address] [facility] [address] CARDIAC TROPONIN I 0.035 HH <0.028 May 06, 2022 10:00 [facility] ACT PART THROMBO TIME Spe cimen Type: PLASMA AM No comment enter ed. Ordering Provid er: MODESTA VILLANUEVA Report Released Date/Time: May 06, 2022 10:11 AM Reporting Lab: [facility] [address] [facility] [address] Performing Lab: [facility] [address] [facility] [address] APTT 37.8 H 25.1-36.5 May 06, 2022 10:00 AM [facility] CBC & DIFF Specim en Type: BLOOD Comment: Manual Differential Performed Ordering Provid er: MODESTA VILLANUEVA Report Released Date/Time: May 06, 2022 10:11 AM Reporting Lab: [facility] [address] [facility] [address] Performing Lab: [facility] [address] [facility] [address] WBC 18.82 H 4.0-11.0 RBC 3.70 L [...] .RBC MORPHOLOGY PRESENT May 06, 2022 10:00 AM [facility] LIPASE Specim en Type: PLASMA No comment enter ed. Ordering Provid er: MODESTA VILLANUEVA Report Released Date/Time: May 06, 2022 10:11 AM Reporting Lab: [facility] [address] [facility] [address] Performing Lab: [facility] [address] [facility] [address] LIPASE <4 <60 May 06, 2022 10:00 AM [facility] PROCALCITONIN Specim en Type: PLASMA No comment enter ed. Ordering Provid er: MODESTA VILLANUEVA Report Released Date/Time: May 06, 2022 10:11 AM Reporting Lab: [facility] [address] [facility] [address] Performing Lab: [facility] [address] [facility] [address] PROCALCITONIN 22.29 H <0.09 May 06, 2022 10:00 [facility] EXTRA GOLD GEL TUBE Speci men Type: SERUM AM No comment enter ed. Ordering Provid er: LINNEA RAND Report Released Date/Time: May 06, 2022 10:25 AM Reporting Lab: [facility] [address] [facility] [address] Performing Lab: [facility] [address] [facility] [address] EXTRA GOLD GEL TUBE RECEIVED May 06, 2022 [facility] COMPREHENSIVE METABOLIC Spec imen Type: PLASMA 10:00 AM PANEL+MG Comment: Manual Differential Performed Ordering Provid er: MODESTA VILLANUEVA Report Released Date/Time: May 06, 2022 10:11 AM Reporting Lab: [facility] [address] [facility] [address] Performing Lab: [facility] [address] [facility] [address] CREATININE 1.3 H 0.7-1.2 UREA NITROGEN 25 [...] [facility] [address] [facility] [address] Performing Lab: [facility] [address] FINGERSTICK GLUCOSE 369 H 70-100 Apr 30, 2022 [facility] BASIC METABOLIC Specimen Typ e: PLASMA 09:17 AM PANEL+MG No comment enter ed. Ordering Provid er: BILL ROONEY Report Released Date/Time: Apr 30, 2022 08:21 AM Reporting Lab: [facility] [address] [facility] [address] Performing Lab: [facility] [address] [facility] [address] CREATININE 1.2 0.7-1.2 UREA NITROGEN 26 8-26 GLUCOSE 140 H 70-100 SODIUM 138 136-145 POTASSIUM 3.8 3.5-5.1 CHLORIDE 107 98-107 CO2 20 L 22-29 CALCIUM 9.4 8.4-10.2 MAGNESIUM 1.7 1.6-2.6 ANION GAP 11 5-15 CREAT EGFR(CKD-EPI) 59 L >60 Apr 30, 2022 09:17 AM [facility] CBC Specim en Type: BLOOD No comment enter ed. Ordering Provid er: BILL ROONEY Report Released Date/Time: Apr 30, 2022 08:21 AM Reporting Lab: [facility] [address] [facility] [address] Performing Lab: [facility] [address] [facility] [address] WBC 10.40 4.0-11.0 RBC 3.96 L 4.6-6.2 [...] Source Pressure Rate Mass Index [facility] [address] [facility] 08:39 [facility] May 11 [facility] 2021 05:42 [facility] May 11 [facility] 2021 03:33 [facility] May [address] [facility] 12:54 [facility] Social History: Smoking Status (Most current) and Tobacco Use (All prior to encounter date) This section includes the most current, and the historical, smoking and tobacco-related health factors from the [place] facility where the Encounter took place.Current Smoking Status This section includes the most current smoking, or tobacco-related health factor, from the [place] facility where the Encounter took place. Date/Time Current Smoking Status Comment Facility Feb 02, 2022 09:30 AM [place]-TO[place] NEVER USED [facility] Tobacco Use History This section includes a history of the smoking, or tobacco- related health factors, that were collected on or before the date of the Encounter. The data comes from the [place] facility where the Encounter took place. Date/Time Smoking Status/Tobacco Use Comment [facility] Mar 22, 2021 07:45 AM [place] [facility] [employer] [facility] Oct 02, 2019 10:02 AM [place] US[place] [facility] May 21, 2018 09:05 AM [place] [facility] December 25, 2017 06:14 PM [...] ALL of a patient's completed or amended [place] Advance and Rescinded Directives. The entries below indicate that a directive exists for the patient, but an actual copy is not included with this document. The data comes from all [facility]. Date Advance Directives Provider Source Apr 18, 2018 ADVANCE DIRECTIVE LARISSA SIGALA [facility] Apr 18, 2018 ADVANCE DIRECTIVE DISCUSSION [facility] December 23, [...] the Encounter. The data comes from all [place] treatment facilities. Date/Time Radiology Report Provider Source May 11, 2022 09:46 CHEST 1 VIEW: SONJA OVALLES [facility] AM LUISANA EDDY [id number] -1935 M Exm Date: MAY 11, 2022@09:46 Req Phys: CODIE LEON Loc: OP Unknown /05-13-2022@05:05 Img Loc: MAIN X-RAY Service: PRIMARY CARE - MED OFFICE (Case [id number] COMPLETE) CHEST 1 VIEW (RAD Detailed) CPT:42205 Proc Modifiers : PORTABLE EXAM Reason for [...] 11, 2022 Date Verified: MAY 11, 2022 Operations Analyst E-Sig:/ES/SONJA OVALLES MD Report: CHEST 1 VIEW [...] Primary Interpreting Staff: SONJA OVALLES MD, RADIOLOGIST (Operations Analyst) /CDC May 10, 2022 03:49 CT HEAD (P): RADIOLOGY,OUTSIDE [facility] PM LUISANA EDDY [id number] -1935 M SERVICE Exm Date: MAY 10, 2022@15:49 Req Phys: CODIE LEON Loc: OP Unknown /05-13-2022@05:05 Img Loc: CT IMAGING Service: PRIMARY CARE - MED OFFICE (Case [id number] COMPLETE) CT HEAD/BRAIN W/O CONTRAST (CT Detailed) CPT:96866 Reason for Study: CHANGE IN MENTAL STATUS Clinical History: CHANGE IN MENTAL STATUS. ORDER ADMINISTRATIVELY ENTERED FOLLOWING SYSTEM OUTAGE. Report Status: Verified Date Reported: MAY 10, 2022 Date Verified: MAY 10, 2022 Operations Analyst E-Sig: Report: CT HEAD/BRAIN W/O CONTRAST [PRINTSET] HISTORY: Change in mental status. COMPARISON: CT from 05/07/2022. TECHNIQUE: Contiguous axial CT images from the level of the skull base through the skull apex, with coronal and s agittal reformats, performed at the local [place] facility. 321 images were received by the [place] National Teleradiology Program (NTP) for interpretation. RADIATION [...] study. READING PHYSICIAN: Akash Mccoy M.D. -[phone] 05/10/2022 17:35 PDT [facility] National Teleradiology Program [phone] (For Medical Practitioner Use Only ) Attention Patients / Veterans: If you have ques tions or concerns about these test results, please contact [facility] or primary care team. Primary Interpreting Staff: RADIOLOGY,OUTSIDE SERVICE, Staff Physician / May 08, 2022 07:45 CT T-SPINE (P): RADIOLOGY,OUTSIDE [facility] PM LEONIDAS EDDYMiguel Rivera [id number] -1935 M SERVICE Exm Date: MAY 08, 2022@19:45 Req Phys: CODIE LEON Chantal Loc: OP Unknown /05-13-2022@05:05 Img Loc: CT IMAGING Service: PRIMARY CARE - MED OFFICE (Case [id number] COMPLETE) CT SPINE THORACIC W/O CONTR AST (CT Detailed) CPT:61989 Reason for Study: mrsa bacteremia, spinal surge ry - r/o abscess or discitis Clinical History: [place] IS NOT under investigation for COVID-19 or is COVID-19 negative Defer to radiologist for final CT protocol. Responsible provider name and phone number to n otify for critical findings if other than user placing the order a nd pager listed below: User placing orders pager: [phone] LAST 3: Collection DT Specimen Test Name [...] GFR (eGF 44 L Ref: >=60 Allergies: ([place] only) SIMVASTATIN (Feb 29, 2004) CEPHALEXIN (Mar 01, 2004) Report Status: Verified Date Reported: MAY 08, 2022 Date Verified: MAY 08, 2022 Operations Analyst E-Sig: Report: CT SPINE THORACIC W/O CONTRAST [PRINTSET] HISTORY:MRSA bacteremia NUMBER OF IMAGES:1151 COMPARISON: Correlation with images from recent CT abdomen and pelvis May 06, 2022 TECHNIQUE: A non contrast CT of the thoracic sp ine was performed at the local [place]. Images were subsequently sent to [facility] for interpretation. Axial, coronal and sagittal [...] thoracic level. READING PHYSICIAN: Luisana Webb MD -[id number] [phone] 05/08/2022 19:20 PDT [facility] National Teleradiology Program [phone] (For Medical Practitioner Use Only ) Attention Patients / Veterans: If you have ques tions or concerns about these test results, please contact your [facility] provider or primary care team. Primary Interpreting Staff: RADIOLOGY,OUTSIDE SERVICE, Staff Physician / May 08, 2022 04:48 CHEST 1 VIEW: RADIOLOGY,OUTSIDE [facility] PM LUISANA EDDY [id number] -1935 M SERVICE Exm Date: MAY 08, 2022@16:48 Req Phys: CODIE LEON Loc: OP Unknown /05-13-2022@05:05 Img Loc: MAIN X-RAY Service: PRIMARY CARE - MED OFFICE (Case [id number] COMPLETE) CHEST 1 VIEW (RAD Detailed) CPT:81152 Proc Modifiers : PORTABLE EXAM Reason for Study: dyspnea Clinical History: [place] IS NOT under investigation for COVID-19 or is COVID-19 negative acute worsening of dyspnea Responsible provider name and phone number to notify for critical findings if other than user placing the order and pager listed below: User placing orders pager: [phone] malini cell [phone] LAST CREATININE 1.1 (05/08/22) Report Status: Verified Date Reported: MAY 08, 2022 Date Verified: MAY 08, 2022 Operations Analyst E-Sig: Report: CHEST 1 VIEW HISTORY: dyspnea COMPARISON: 05/06/2022 TECHNIQUE: Frontal view(s) of the chest, submit nola to the [place] National Teleradiology Program (NTP) for interp retation. FINDINGS: Reduced lung volumes. Progressive cardiomegaly, and vascular congestion as well as diffuse interstitial prom inence with probable small effusions. Impression: Expiratory exam with findings of CHF and mild e santa READING PHYSICIAN: Nghia Menjivar M.D. -[id number] 10 05/08/2022 18:57 EDT [facility] National Teleradiology Program [phone] (For Medical Practitioner Use Only ) Attention Patients / Veterans: If you have ques tions or concerns about these test results, please contact your [facility] provider or primary care team. Primary Interpreting Staff: RADIOLOGY,OUTSIDE SERVICE, Staff Physician / May 07, 2022 10:29 CT HEAD (P): SHANI POLANCO [facility] AM LUISANA EDDY [id number] -1935 M Exm Date: MAY 07, 2022@10:29 Req Phys: BETO AYALA Loc: OP Unknown/0 05-13-2022@05:05 Img Loc: CT IMAGING Service: PRIMARY CARE - MED OFFICE (Case [id number] COMPLETE) CT HEAD/BRAIN W/O CONTRAST ( CT Detailed) CPT:59616 Reason for Study: seizure noted at [facility] Clinical History: [place] IS NOT under investigation for COVID-19 or is COVID-19 negative Defer to radiologist for final CT protocol. Responsible provider name and phone number to n otify for critical findings if other than user placing the order a nd pager listed below: User placing orders pager: [phone] LAST 3: Collection DT Specimen Test Name [...] GFR (eGF 44 L Ref: >=60 Allergies: ([place] only) SIMVASTATIN (Feb 29, 2004) CEPHALEXIN (Mar 01, 2004) Report Status: Verified Date Reported: MAY 07, 2022 Date Verified: MAY 07, 2022 Operations Analyst E-Sig:/ES/SHANI POLANCO MD Report: EXAM: CT HEAD/BRAIN W/O CONTRAST HISTORY: seizure noted at [facility] Reason for Study: seizure noted at [facility] [place] IS NOT under investigation for COVID-19 or is COVID-19 negative Defer to radiologist for final CT prot ocol. Responsible provider name and phone number to notify for cr itical findings if other than user placing the order and pager lis nola below: User placing orders pager: [phone] LAST 3: Collecti on DT Specimen Test [...] Primary Interpreting Staff: SHANI POLANCO MD, RADIOLOGIST (Operations Analyst) /Javed May 06, 2022 11:40 CHEST 1 VIEW: RADIOLOGY,OUTSIDE [facility] AM LUISANA EDDY [id number] -1935 M SERVICE Exm Date: MAY 06, 2022@11:40 Req Phys: MODESTA VILLANUEVA Loc: [facility] EMERGENCY DEPT WALK-IN (Re Img Loc: MAIN X-RAY Service: Unknown (Case 73 COMPLETE) CHEST 1 VIEW (RAD Detailed) C PT:17362 Proc Modifiers : PORTABLE EXAM Reason for [...] pager listed below: User placing orders pager: [phone] LAST CREATININE 1.2 (04/30/22) Report Status: Verified Date Reported: MAY 06, 2022 Date Verified: MAY 06, 2022 Operations Analyst E-Sig: Report: Technique: Frontal chest. No comparison Impression: Cardiac silhouette is mildly enlarged. There is mild pulmonary venous congestion. No definite pleural effusion . No pneumothorax seen. READING PHYSICIAN: Vern Donnelly M.D. -[id number] 07 05/06/2022 13:26 EDT [facility] National Teleradiology Program [phone] (For Medical Practitioner Use Only ) Attention Patients / Veterans: If you have ques tions or concerns about these test results, please contact your o rdering provider or primary care team. Primary Interpreting Staff: RADIOLOGY,OUTSIDE SERVICE, Staff Physician / May 06, 2022 10:36 CT (AP) ABDOMEN/PELVIS (P): RADIOLOGY,OUTSIDE [facility] AM LUISANA EDDY [id number] -1935 M SERVICE Exm Date: MAY 06, 2022@10:36 Req Phys: MODESTA VILLANUEVA Loc: [facility] EMERGENCY DEPT WALK-IN (Re Img Loc: CT IMAGING Service: Unknown (Case [id number] COMPLETE) CT (AP) ABDOMEN/PELVIS W CONT RAST(CT Detailed) CPT:96648 Reason for Study: fever, back pain Clinical [...] pager listed below: User placing orders pager: [phone] LAST 3: Collection DT Specimen Test Name [...] ESTIMATED GFR(eGF 44 L Ref: >=60 Allergies: ([place] only) SIMVASTATIN (Feb 29, 2004) CEPHALEXIN (Mar 01, 2004) To see allergies from all [facility] locations click Re ports tab>Remote Data>All Available Sites>Clinical Reports>Aller gies. Report Status: Verified Date Reported: MAY 06, 2022 Date Verified: MAY 06, 2022 Operations Analyst E-Sig: Report: Exam: CT (AP) ABDOMEN/PELVIS W CONTRAST [PRINTS ET] Clinical History: fever, back pain Number of images: 918 Comparison: No priors available Technique: The study was protocoled and supervi sed at the local [place] facility. CT of the abdomen and pelvis was performed afte r the uneventful administration of iodinated contrast. Images we re received by the [place] National Teleradiology Program (NTP) for interpretation. Total [...] findings, above. READING PHYSICIAN: Eduin Donaldson M.D. -[phone] 05/06/2022 12:48 [facility] [employer] Teleradiology Program [phone] (For Medical Practitioner Use Only ) Attention Patients / Veterans: If you have ques tions or concerns about these test results, please contact your o [facility] provider or primary care team. Primary Interpreting Staff: RADIOLOGY,OUTSIDE SERVICE, Staff Physician / May 06, 2022 10:35 CT HEAD/BRAIN W/O CONTRAST: RADIOLOGY,OUTSIDE [facility] LUISANA EDDY [id number] -1935 SERVICE Exm Date: MAY 06, 2022@10:35 Req Phys: MODESTA VILLANUEVA Loc: [facility] EMERGENCY DEPT WALK-IN (Re Img Loc: CT IMAGING Service: Unknown (Case 64 COMPLETE) CT HEAD/BRAIN W/O CONTRAST (C T Detailed) CPT:98517 Reason for Study: falls, blood thinner, AMS, se izure Clinical History: falls, blood thinner, AMS, seizure [place] IS under investigation (PUI) for COVID- 19 or is COVID-19+ Defer to radiologist for final CT protocol. Responsible provider name and phone number to n otify for critical findings if other than user placing the order a nd pager listed below: User placing orders pager: [phone] LAST 3: Collection DT Specimen Test Name [...] ESTIMATED GFR(eGF 44 L Ref: >=60 Allergies: ([place] only) SIMVASTATIN (Feb 29, 2004) CEPHALEXIN (Mar 01, 2004) To see allergies from all [place] locations click Re ports tab>Remote Data>All Available Sites>Clinical Reports>Aller gies. Report Status: Verified Date Reported: MAY 06, 2022 Date Verified: MAY 06, 2022 Operations Analyst E-Sig: Report: CT HEAD/BRAIN W/O CONTRAST Clinical History: falls, blood thinner, AMS, se izure Number of Images: 532 Comparison: 03/12/2022 Technique: The study was protocoled and supervi sed at the local [place] facility. CT of the head without contrast. I mages were subsequently received by the [place] National Telera diology Program (NTP) for interpretation. [...] T findings. READING PHYSICIAN: Eduin Donaldson M.D. -[phone] 05/06/2022 12:30 [facility] National Teleradiology Program [phone] (For Medical Practitioner Use Only ) Attention Patients / Veterans: If you have ques tions or concerns about these test results, please contact [facility] or primary care team. Primary Interpreting Staff: RADIOLOGY,OUTSIDE SERVICE, Staff Physician / May 06, 2022 10:35 CT CERVICAL SPINE W/O CONTRAST: RADIOLOGY,OUT SIDE [facility] AM LUISANA EDDY-[phone] -1935 M SERVICE Exm Date: MAY 06, 2022@10:35 Req Phys: MODESTA VILLANUEVA Loc: [facility] EMERGENCY DEPT WALK-IN (Re Img Loc: CT IMAGING Service: Unknown (Case 65 COMPLETE) CT CERVICAL SPINE W/O CONTRAS T (CT Detailed) CPT:35269 Reason for Study: falls, blood thinner, AMS, se izure Clinical History: falls, blood thinner, AMS, seizure [place] IS under investigation (PUI) for COVID- 19 or is COVID-19+ Defer to radiologist for final CT protocol. Responsible provider name and phone number to n otify for critical findings if other than user placing the order a nd pager listed below: User placing orders pager: [phone] LAST 3: Collection DT Specimen Test Name [...] ESTIMATED GFR(eGF 44 L Ref: >=60 Allergies: ([place] only) SIMVASTATIN (Feb 29, 2004) CEPHALEXIN (Mar 01, 2004) To see allergies from all [facility] locations click Re ports tab>Remote Data>All Available Sites>Clinical Reports>Aller gies. Report Status: Verified Date Reported: MAY 06, 2022 Date Verified: MAY 06, 2022 Operations Analyst E-Sig: Report: CT CERVICAL SPINE W/O CONTRAST HISTORY:falls, blood thinner, AMS, seizure NUMBER OF IMAGES:770 COMPARISON: None available. TECHNIQUE: A non contrast CT of the cervical sp [place]e [place] [facility] for interpretation. Axial, coronal and sagittal [...] tissues: 11 mm subcutaneous cyst in the [facility] upper neck. Impression: -Motion artifact limits the exam. -Given this limitation, no acute osseous abnorm ality. -Moderate multilevel degenerative change throug hout the cervical spine. -Ancillary findings, above. READING PHYSICIAN: Eduin Donaldson M.D. -[id number] [id number] 05/06/2022 12:33 [facility] National Teleradiology Program [phone] (For Medical Practitioner Use Only ) Attention Patients / Veterans: If you have ques tions or concerns about these test results, please contact your [facility] provider or primary care team. Primary Interpreting [...] the Encounter. The data comes from all [place] treatment facilities. Date/Time Pathology Report Provider Source May 09, 2022 05:30 AM [facility] MICROBIOLOGY REPORT: [facility] Reporting Lab: [facility] [CLIA# [id number]] [place] [address] Accession [UID]: [id number] [[id number]] Receiv ed: May 09, 2022@01:35 Collection sample: BLOOD Collection date: Apr 05:30 Provider: CODIE LEON Comment on specimen: LEFT ARM, RECEIVED 2 BLOOD CULTURE BOTTLES Test(s) ordered: CULTURE & SUSCEPTIBILITY...... 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 completed: May 10, 2022 * BACTERIOLOGY FINAL REPORT => May 10, 2022 16:3 1 TECH CODE: [id number] CULTURE RESULTS: GROWTH SAME THAT OF ANOTHER CULTURE Comment: FOR SUSCEPTIBILITY REPORT SEE PREVIOUS POSITIVE SAME MB [id number] ( 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 from Anaerobic bottle ) ( Recovered from Aerobic bottle ) Bacteriology Remark(s): THIS REPORT IS FINAL =--=--=--=--=--=--=--=--=--=--=--=--=--= --=--=--=--=--=--=--=--=--=--=--=--=-- Performing Laboratory: Bacteriology Report Performed By: [facility] [CLIA# [id number]] [place] [address] May 08, 2022 03:21 PM LR MICROBIOLOGY REPORT: [facility] Reporting Lab: [facility] [CLIA# [id number]] [place] [address] Accession [UID]: [id number] [[id number]] Receiv ed: May 08, 2022@15:40 Collection sample: BLOOD Collection date: Apr 15:21 Provider: CODIE LEON Comment on specimen: RT ARM, RECEIVED 2 BLOOD CU LTURE BOTTLES Test(s) ordered: CULTURE & SUSCEPTIBILITY...... completed: May 10, 2022 * BACTERIOLOGY FINAL REPORT => May 10, 2022 16:3 1 TECH CODE: [id number] CULTURE RESULTS: GROWTH SAME THAT OF ANOTHER CULTURE Comment: FOR SUSCEPTIBILITY REPORT SEE PREVIOUS POSITIVE SAME MB 22 [id number] ( 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 from Anaerobic bottle ) ( Recovered from Aerobic bottle ) Bacteriology Remark(s): THIS REPORT IS FINAL =--=--=--=--=--=--=--=--=--=--=--=--=--= --=--=--=--=--=--=--=--=--=--=--=--=-- Performing Laboratory: Bacteriology Report Performed By: [facility] [CLIA# [id number]] [place] [address] May 07, 2022 05:30 AM LR MICROBIOLOGY REPORT: [facility] Reporting Lab: [facility] [CLIA# [id number] 147] [place] [address] Accession [UID]: [id number] [[id number]] Receiv ed: May 07, 2022@01:35 Collection sample: [...] REPORT SEE PREVIOUS POSITIVE SAME MB 22 [id number] ( 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 from Aerobic bottle ) ( Recovered from Anaerobic bottle ) Bacteriology Remark(s): THIS REPORT IS FINAL =--=--=--=--=--=--=--=--=--=--=--=--=--= --=--=--=--=--=--=--=--=--=--=--=--=-- Performing Laboratory: Bacteriology Report Performed By: [facility] [CLIA# [id number]] [place] [address] May 06, 2022 10:51 AM LR MICROBIOLOGY REPORT: [facility] Reporting Lab: [facility] [CLIA# [id number] 147] [place] [address] Accession [UID]: [id number] [[id number]] Receiv ed: May 06, 2022@11:32 Collection sample: [...] By: [facility] [CLIA# [id number]] [place] [address] May 06, 2022 10:34 AM LR MICROBIOLOGY REPORT: [facility] Reporting Lab: [facility] [CLIA# [id number]] [place] [address] Accession [UID]: [id number] [[id number]] Receiv ed: May 06, 2022@10:51 Collection sample: BLOOD Collection date: Apr 10:34 Provider: MODESTA VILLANUEVA Comment on specimen: RECEIVED [address] [facility] Test(s) ordered: CULTURE & SUSCEPTIBILITY...... 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 [...] reported to Codie Leon MD 05/08/22 @0824 -[facility] THIS REPORT IS FINAL =--=--=--=--=--=--=--=--=--=--=--=--=--= --=--=--=--=--=--=--=--=--=--=--=--=-- Performing Laboratory: Bacteriology Report Performed By: [facility] [CLIA# [id number]] [place] [address] May 06, 2022 10:00 AM LR MICROBIOLOGY REPORT: [facility] Reporting Lab: [facility] [CLIA# [id number] 147] [place] [address] Accession [UID]: [id number] [[id number]] Receiv ed: May 06, 2022@10:41 Collection sample: [...] REPORT SEE PREVIOUS POSITIVE SAME MB 22 [id number] ( 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 from Anaerobic bottle ) ( Recovered from Aerobic bottle ) Bacteriology Remark(s): THIS REPORT IS FINAL =--=--=--=--=--=--=--=--=--=--=--=--=--= --=--=--=--=--=--=--=--=--=--=--=--=-- Performing Laboratory: Bacteriology Report Performed By: [facility] [CLIA# [id number]] [place] [address] Encounter Notes: All associated encounter notes This section contains the clinical notes associated to the Encounter. 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 Maral: [phone] Provided update that [place] had thi s morning. /ronni/ [facility] Social Work Signed: 05/11/2022 15:10
--- OUTSIDE RECORDS SUMMARY | 2022-05-15 09:24 | XMS_ITS | Encounter Summary ---
:1935 Author Organization [facility] Address [address] [place] [address] Support Name Relationship Address Phone WADE LORENZO Unavailable [id number] [place] [address] WADE LORENZO Unavailable [address] [place] [address] MARILIA MARSHALLA Unavailable [address] [facility] [place] [address] GOGEORGE, ARACELI Unavailable [address] [place] [address] Insurance Providers: All historical and current Section Date Range: From patient's date of to the date document was created.This section includes the names of all active insurance providers for the patient. Insurance Type of Plan Start of End of Group Member Insurance Policy P atient's Provider Coverage Name Policy Policy Number ID Provider's Chan's Relationship Coverage Coverage Telephone Name to Policy Number Chan [place]ARE MCR Aug 19, [id number] Kristel [facility]) [facility] (WNR) 2017 8 [id number] [phone] [facility] [place] M[place] Aug 19, [id number] Kristel [facility] (WNR) ADVANTAGE (WNR) 2016 8 [id number] [phone] [facility] Selected Encounter This section includes the information on record at [place] for the Encounter. Date/Time Encounter Type Encounter Description Reason Provider Source May 10, 2022 01:00 Inpatient Visit ADMIN PAT ACTIVTIES SYS TEM,CIS-ARK AM (MASNONCT) IHE Encounter Template Text not used by [place] Plan of Treatment: Future Appointments (+ 6 months) and Future Tests (+/- 45 days) The Plan of Treatment section includes future care activities for the patient [facility] [place] [facility]. This section includes future appointments [...] 11, 2022 06:15 PM AMBULATORY - NONE [facility] Jul 23, 2022 08:00 AM AMBULATORY - NEUROLOGY [facility] Active, Pending, and Scheduled [...] the Encounter. The data comes from all [place] treatment [facility]. Test Date/Time Test Type Test Details Facility Name Apr 30, 2022 08:21 Laboratory - Chemistry URINALYSIS URINE WC ON CE [facility] AM Order Apr 30, 2022 08:21 Laboratory - CULTURE & SUSCEPTIBILITY [facility] AM Microbiology Order URINE WC May 06, 2022 12:00 Laboratory - Blood ABO/RH - LAB BLOOD [facility] AM Bank Order May 06, 2022 10:11 Laboratory - Blood TYPE & SCREEN - LAB [facility] AM Bank Order BLOOD WC May 06, 2022 10:27 Pharmacy [facility] AM Medication Order May 06, 2022 10:28 [facility] AM Infusion Order May 06, 2022 10:34 [facility] AM Infusion Order May 06, 2022 10:41 [facility] AM Infusion Order May 06, 2022 12:15 [facility] PM Medication Order May 06, 2022 01:31 [facility] PM Medication Order May 06, 2022 04:49 [facility] PM Medication Order May 07, 2022 01:00 Laboratory - CULTURE & SUSCEPTIBILITY [facility] PM Microbiology Order BLOOD WC ONCE May 11, 2022 09:07 Laboratory - CULTURE & SUSCEPTIBILITY [facility] AM Microbiology Order BLOOD WC May 11, 2022 09:07 Laboratory - CULTURE & SUSCEPTIBILITY [facility] AM Microbiology Order BLOOD WC May 11, 2022 09:38 Laboratory - Chemistry EOSINOPHIL SMEAR,URINE [facility] AM Order URINE WC ONCE May 11, 2022 09:38 Laboratory - Chemistry FENA URINE WC ONCE MIN [facility] AM Order May 11, 2022 09:38 Laboratory - Chemistry URINALYSIS URINE WC ON CE [facility] AM Order Lab Results: +/- 30 days [...] Reference Range Comment May 11, 2022 11:13 [facility] FINGERSTICK GLUCOSE Speci men Type: BLOOD AM Comment: Mark casillas Nurse Notified Ordering Provid er: CODIE LEON Report Released Date/Time: May 11, 2022 11:53 AM Reporting Lab: [facility] [address] [facility] [address] Performing Lab: [facility] [address] [facility] [address] FINGERSTICK GLUCOSE 367 H 70-100 May 11, 2022 07:05 [facility] LIVER FUNCTION TESTS Spec imen Type: PLASMA AM No comment enter ed. Ordering Provid er: CODIE LEON Report Released Date/Time: May 11, 2022 09:08 AM Reporting Lab: [facility] [address] [facility] [address] Performing Lab: [facility] [address] [facility] [address] BILIRUBIN, TOTAL 1.6 H 0.2-1.2 ALKALINE PHOSPHATASE 102 40-150 ALT/SGPT 42 <55 AST/SGOT 30 <34 GAMMA GTP 52 <64 DIR. BILIRUBIN 1.2 H <0.5 May 11, 2022 07:05 AM [facility] CK,TOTAL Specim en Type: PLASMA No comment enter ed. Ordering Provid er: CODIE LEON Report Released Date/Time: May 11, 2022 09:08 AM Reporting Lab: [facility] [address] [facility] [address] Performing Lab: [facility] [address] [facility] [address] CK,TOTAL 16 L 39-208 May 11, 2022 07:05 [facility] BASIC METABOLIC Specimen Type: PLASMA AM PANEL+MG No comment enter ed. Ordering Provid er: OG DIAL Report Released Date/Time: May 11, 2022 04:46 AM Reporting Lab: [facility] [address] [facility] [address] Performing Lab: [facility] [address] [facility] [address] CREATININE 1.6 H 0.7-1.2 UREA NITROGEN 28 H 8-26 GLUCOSE 396 H 70-100 SODIUM 150 H 136-145 POTASSIUM 3.7 3.5-5.1 CHLORIDE 120 H 98-107 CO2 23 22-29 CALCIUM 8.4 8.4-10.2 MAGNESIUM 2.1 1.6-2.6 ANION GAP 7 5-15 CREAT EGFR(CKD-EPI) 42 L >60 May 11, 2022 07:05 AM [facility] BNP Specim en Type: PLASMA No comment enter ed. Ordering Provid er: CODIE LEON Report Released Date/Time: May 11, 2022 09:15 AM Reporting Lab: [facility] [address] [facility] [address] Performing Lab: [facility] [address] [facility] [address] BNP 59 <99 May 11, 2022 07:05 AM [facility] CBC Specim en Type: BLOOD No comment enter ed. Ordering Provid er: OG DIAL Report Released Date/Time: May 11, 2022 04:46 AM Reporting Lab: [facility] [address] [facility] [address] Performing Lab: [facility] [address] [facility] [address] WBC 15.93 H 4.0-11.0 RBC 3.60 L 4.6-6.2 HGB 11.2 L 13.5-17.9 HCT 35.3 L 41-54 MCV 98.1 80-100 MCH 31.1 27-33 MCHC 31.7 L 32.0-37.5 PLT 231 150-400 MPV 11.2 H 7.4-10.4 RDW 15.2 H 11.5-14.5 May 11, 2022 06:14 [facility] FINGERSTICK GLUCOSE Speci men Type: BLOOD AM Comment: Mark casillas Nurse Notified Ordering Provid er: CODIE LEON Report Released Date/Time: May 11, 2022 06:42 AM Reporting Lab: [facility] [address] [facility] [address] Performing Lab: [facility] [address] [facility] [address] FINGERSTICK GLUCOSE 345 H 70-100 May 11, 2022 02:24 [facility] FINGERSTICK GLUCOSE Speci men Type: BLOOD AM Comment: Mark casillas Ordering Provid er: CODIE LEON Report Released Date/Time: May 11, 2022 02:44 AM Reporting Lab: [facility] [address] [facility] [address] Performing Lab: [facility] [address] [facility] [address] FINGERSTICK GLUCOSE 375 H 70-100 May 10, 2022 08:38 [facility] FINGERSTICK GLUCOSE Speci men Type: BLOOD PM Comment: Mark casillas Ordering Provid er: CODIE LEON Report Released Date/Time: May 11, 2022 12:31 AM Reporting Lab: [facility] [address] [facility] [address] Performing Lab: [facility] [address] [facility] [address] FINGERSTICK GLUCOSE 346 H 70-100 May 10, 2022 05:05 [facility] FINGERSTICK GLUCOSE Speci men Type: BLOOD PM Comment: Mark casillas Nurse Notified Ordering Provid er: CODIE LEON Report Released Date/Time: May 10, 2022 11:50 PM Reporting Lab: [facility] [address] [facility] [address] Performing Lab: [facility] [address] [facility] [address] FINGERSTICK GLUCOSE 245 H 70-100 May 10, 2022 02:00 [facility] VANCOMYCIN (TROUGH) Speci men Type: PLASMA PM No comment enter ed. Ordering Provid er: CODIE LEON Report Released Date/Time: May 11, 2022 01:34 AM Reporting Lab: [facility] [address] [facility] [address] Performing Lab: [facility] [address] [facility] [address] VANCOMYCIN (TROUGH) 31.8 H 10.0-15.0 May 10, 2022 [facility] BASIC METABOLIC Specimen Typ e: PLASMA 02:00 PM PANEL+MG No comment enter ed. Ordering Provid er: CODIE LEON Report Released Date/Time: May 11, 2022 01:34 AM Reporting Lab: [facility] [address] Performing Lab: [facility] [address] CREATININE 1.1 .7-1.2 UREA NITROGEN 22 8-26 GLUCOSE 279 H 70-100 SODIUM 150 H 136-145 POTASSIUM 3.2 L 3.5-5.1 CHLORIDE 116 H 98-107 CO2 23 22-29 CALCIUM 8.5 8.4-10.2 MAGNESIUM 2.0 1.6-2.6 ANION GAP 11 5-15 CREAT EGFR(CKD-EPI) 65 >60 May 10, 2022 01:20 PM [facility] CBC & DIFF Specim en Type: BLOOD Comment: Automa nola Differential Performed Ordering Provid er: MD ESTEBAN Report Released Date/Time: May 10, 2022 08:52 PM Reporting Lab: [facility] [address] Performing Lab: [facility] [address] WBC 16.24 H 4.0-11.0 RBC 3.76 L [...] 0.28 H 0-0.1 May 10, 2022 11:07 [facility] FINGERSTICK GLUCOSE Speci men Type: BLOOD AM Comment: Mark casillas Nurse Notified Ordering Provid er: CODIE LEON Report Released Date/Time: May 11, 2022 12:31 AM Reporting Lab: [facility] [address] [facility] [address] Performing Lab: [facility] [address] [facility] [address] FINGERSTICK GLUCOSE 253 H 70-100 May 10, 2022 06:16 [facility] FINGERSTICK GLUCOSE Speci men Type: BLOOD AM Comment: Mark casillas Nurse Notified Ordering Provid er: CODIE LEON Report Released Date/Time: May 10, 2022 11:50 PM Reporting Lab: [facility] [address] [facility] [address] Performing Lab: [facility] [address] [facility] [address] FINGERSTICK GLUCOSE 271 H 70-100 May 09, 2022 09:07 [facility] FINGERSTICK GLUCOSE Speci men Type: BLOOD PM Comment: Mark casillas Ordering Provid er: CODIE LEON Report Released Date/Time: May 10, 2022 11:50 PM Reporting Lab: [facility] [address] [facility] [address] Performing Lab: [facility] [address] [facility] [address] FINGERSTICK GLUCOSE 209 H 70-100 May 09, 2022 05:33 [facility] FINGERSTICK GLUCOSE Speci men Type: BLOOD PM Comment: Mark casillas Nurse Notified Ordering Provid er: CODIE LEON Report Released Date/Time: May 09, 2022 05:53 PM Reporting Lab: [facility] [address] [facility] [address] Performing Lab: [facility] [address] [facility] [address] FINGERSTICK GLUCOSE 251 H 70-100 May 09, 2022 02:09 [facility] VANCOMYCIN (PEAK) Specime n Type: SERUM PM No comment enter ed. Ordering Provid er: AMARIS DE JESUS Report Released Date/Time: May 09, 2022 09:33 AM Reporting Lab: [facility] [address] [facility] [address] Performing Lab: [facility] [address] [facility] [address] VANCOMYCIN (PEAK) 24.2 20.0-40.0 May 09, 2022 11:19 [facility] FINGERSTICK GLUCOSE Speci men Type: BLOOD AM Comment: Mark casillas Nurse Notified Ordering Provid er: CODIE LEON Report Released Date/Time: May 09, 2022 11:38 AM Reporting Lab: [facility] [address] [facility] [address] Performing Lab: [facility] [address] [facility] [address] FINGERSTICK GLUCOSE 240 H 70-100 May 09, 2022 08:13 [facility] VANCOMYCIN (TROUGH) Speci men Type: SERUM AM No comment enter ed. Ordering Provid er: AMARIS DE JESUS Report Released Date/Time: May 08, 2022 11:14 AM Reporting Lab: [facility] [address] [facility] [address] Performing Lab: [facility] [address] [facility] [address] VANCOMYCIN (TROUGH) 16.1 H 10.0-15.0 May 09, 2022 05:33 AM [facility] CBC & DIFF Specim en Type: BLOOD Comment: Automa nola Differential Performed Ordering Provid er: CODIE LEON Report Released Date/Time: May 08, 2022 05:27 PM Reporting Lab: [facility] [address] [facility] [address] Performing Lab: [facility] [address] [facility] [address] WBC 14.92 H 4.0-11.0 RBC 3.41 L [...] GRAN 0.16 H 0-0.1 May 09, 2022 [facility] COMPREHENSIVE METABOLIC Spec imen Type: PLASMA 05:32 AM PANEL+MG No comment enter ed. Ordering Provid er: CODIE LEON Report Released Date/Time: May 08, 2022 05:27 PM Reporting Lab: [facility] [address] [facility] [address] Performing Lab: [facility] [address] [facility] [address] CREATININE 1.2 0.7-1.2 UREA NITROGEN 25 8-26 [...] 59 L >60 May 09, 2022 05:16 [facility] FINGERSTICK GLUCOSE Speci men Type: BLOOD AM Comment: Mark casillas Nurse Notified Ordering Provid er: CODIE LEON Report Released Date/Time: May 09, 2022 07:27 AM Reporting Lab: [facility] [address] [facility] [address] Performing Lab: [facility] [address] [facility] [address] FINGERSTICK GLUCOSE 295 H 70-100 May 08, 2022 09:32 PM [facility] EXTRA MINT TUBE Specim en Type: PLASMA No comment enter ed. Ordering Provid er: MD ESTEBAN Report Released Date/Time: May 08, 2022 09:32 PM Reporting Lab: [facility] [address] [facility] [address] Performing Lab: [facility] [address] [facility] [address] EXTRA MINT TUBE RECEIVED May 08, 2022 09:32 PM [facility] EXTRA PURPLE TUBE Spec imen Type: BLOOD No comment enter ed. Ordering Provid er: MD ESTEBAN Report Released Date/Time: May 08, 2022 09:32 PM Reporting Lab: [facility] [address] [facility] [address] Performing Lab: [facility] [address] [facility] [address] EXTRA PURPLE TUBE RECEIVED May 08, 2022 09:32 [facility] EXTRA GOLD GEL TUBE Speci men Type: SERUM PM No comment enter ed. Ordering Provid er: MD ESTEBAN Report Released Date/Time: May 08, 2022 09:32 PM Reporting Lab: [facility] [address] [facility] [address] Performing Lab: [facility] [address] [facility] [address] EXTRA GOLD GEL TUBE RECEIVED May 08, 2022 09:32 PM [facility] EXTRA BLUE TUBE Specim en Type: PLASMA No comment enter ed. Ordering Provid er: MD ESTEBAN Report Released Date/Time: May 08, 2022 09:32 PM Reporting Lab: [facility] [address] [facility] [address] Performing Lab: [facility] [address] [facility] [address] EXTRA BLUE TUBE RECEIVED May 08, 2022 09:32 PM [facility] EXTRA BRASWELL TUBE Specim en Type: PLASMA No comment enter ed. Ordering Provid er: MD ESTEBAN Report Released Date/Time: May 08, 2022 09:37 PM Reporting Lab: [facility] [address] [facility] [address] Performing Lab: [facility] [address] [facility] [address] EXTRA BRASWELL TUBE RECEIVED May 08, 2022 09:32 PM [facility] LACTIC ACID Specim en Type: PLASMA No comment enter ed. Ordering Provid er: OG DIAL Report Released Date/Time: May 08, 2022 09:49 PM Reporting Lab: [facility] [address] [facility] [address] Performing Lab: [facility] [address] [facility] [address] LACTIC ACID 2.5 H 0.5-2.2 May 08, 2022 09:32 PM [facility] BNP Specim en Type: PLASMA No comment enter ed. Ordering Provid er: OG DIAL Report Released Date/Time: May 08, 2022 09:50 PM Reporting Lab: [facility] [address] [facility] [address] Performing Lab: [facility] [address] [facility] [address] BNP 897 H <99 May 08, 2022 09:32 PM [facility] CBC Specim en Type: BLOOD No comment enter ed. Ordering Provid er: OG DIAL Report Released Date/Time: May 08, 2022 09:50 PM Reporting Lab: [facility] [address] Performing Lab: [facility] [address] WBC 18.54 H 4.0-11.0 RBC 3.68 L 4.6-6.2 HGB 11.5 L 13.5-17.9 HCT 35.1 L 41-54 MCV 95.4 80-100 MCH 31.3 27-33 MCHC 32.8 32.0-37.5 PLT 221 150-400 MPV 11.1 H 7.4-10.4 RDW 14.9 H 11.5-14.5 May 08, 2022 09:32 PM [facility] BLOOD GASES Specim en Type: VENOUS BLOOD Comment: O2 THE RAPY = 3L PM Ordering Provid er: OG DIAL Report Released Date/Time: May 08, 2022 09:50 PM Reporting Lab: [facility] [address] Performing Lab: [facility] [address] PH 7.36 7.33-7.43 PCO2 47 41-51 BICARBONATE 24.4 21.0-30.0 PO2 31 L 35-40 OXYGEN SATURATION 54.7 L 70.0-75.0 PH(TEMP CORRECTED) 7.37 7.33-7.43 PCO2(TEMP CORRECTED) 46 41-51 PO2(TEMP CORRECTED) 31 L 35-40 PATIENT TEMPERATURE 36.7 May 08, 2022 [facility] COMPREHENSIVE METABOLIC Spec imen Type: PLASMA 09:32 PM PANEL+MG No comment enter ed. Ordering Provid er: OG DIAL Report Released Date/Time: May 08, 2022 09:50 PM Reporting Lab: [facility] [address] Performing Lab: [facility] [address] CREATININE 1.3 H 0.7-1.2 UREA NITROGEN 26 [...] 54 L >60 May 08, 2022 08:27 [facility] FINGERSTICK GLUCOSE Speci men Type: BLOOD PM Comment: Mark casillas Nurse Notified Ordering Provid er: CODIE LEON Report Released Date/Time: May 08, 2022 08:55 PM Reporting Lab: [facility] [address] [facility] [address] Performing Lab: [facility] [address] [facility] [address] FINGERSTICK GLUCOSE 272 H 70-100 May 08, 2022 06:56 [facility] FINGERSTICK GLUCOSE Speci men Type: BLOOD PM Comment: Mark casillas Ordering Provid er: CODIE LEON Report Released Date/Time: May 08, 2022 07:08 PM Reporting Lab: [facility] [address] [facility] [address] Performing Lab: [facility] [address] [facility] [address] FINGERSTICK GLUCOSE 262 H 70-100 May 08, 2022 04:50 [facility] FINGERSTICK GLUCOSE Speci men Type: BLOOD PM Comment: Nurse Notified Ordering Provid er: CODIE LEON Report Released Date/Time: May 08, 2022 05:14 PM Reporting Lab: [facility] [address] [facility] [address] Performing Lab: [facility] [address] [facility] [address] FINGERSTICK GLUCOSE 330 H 70-100 May 08, 2022 11:21 [facility] FINGERSTICK GLUCOSE Speci men Type: BLOOD AM Comment: Mark casillas Nurse Notified Ordering Provid er: CODIE LEON Report Released Date/Time: May 08, 2022 11:51 AM Reporting Lab: [facility] [address] [facility] [address] Performing Lab: [facility] [address] [facility] [address] FINGERSTICK GLUCOSE 231 H 70-100 May 08, 2022 07:25 AM [facility] CBC & DIFF Specim en Type: BLOOD Comment: Automa nola Differential Performed Ordering Provid er: BETO AYALA Report Released Date/Time: May 07, 2022 12:28 PM Reporting Lab: [facility] [address] [facility] [address] Performing Lab: [facility] [address] [facility] [address] WBC 16.29 H 4.0-11.0 RBC 3.38 L [...] GRAN 0.26 H 0-0.1 May 08, 2022 [facility] PROTHROMBIN TIME/INR Specime n Type: PLASMA 07:25 AM No comment enter ed. Ordering Provid er: BETO AYALA Report Released Date/Time: May 07, 2022 12:28 PM Reporting Lab: [facility] [address] [facility] [address] Performing Lab: [facility] [address] .INR 1.2 H 0.8-1.1 .PT 14.2 H 9.4-12.5 May 08, 2022 [facility] COMPREHENSIVE METABOLIC Spec imen Type: PLASMA 07:25 AM PANEL+MG No comment enter ed. Ordering Provid er: BETO AYALA Report Released Date/Time: May 07, 2022 12:28 PM Reporting Lab: [facility] [address] [facility] [address] Performing Lab: [facility] [address] CREATININE 1.1 0.7-1.2 UREA NITROGEN 27 H [...] EGFR(CKD-EPI) 65 >60 May 08, 2022 06:53 [facility] FINGERSTICK GLUCOSE Speci men Type: BLOOD AM Comment: Mark casillas Ordering Provid er: CODIE LEON Report Released Date/Time: May 08, 2022 07:18 AM Reporting Lab: [facility] [address] [facility] [address] Performing Lab: [facility] [address] [facility] [address] FINGERSTICK GLUCOSE 276 H 70-100 May 07, 2022 08:36 [facility] FINGERSTICK GLUCOSE Speci men Type: BLOOD PM Comment: Nurse Notified Ordering Provid er: CODIE LEON Report Released Date/Time: May 08, 2022 12:29 AM Reporting Lab: [facility] [address] [facility] [address] Performing Lab: [facility] [address] [facility] [address] FINGERSTICK GLUCOSE 282 H 70-100 May 07, 2022 07:04 PM [facility] LACTIC ACID Specim en Type: PLASMA No comment enter ed. Ordering Provid er: BETO AYALA Report Released Date/Time: May 07, 2022 06:28 PM Reporting Lab: [facility] [address] [facility] [address] Performing Lab: [facility] [address] [facility] [address] LACTIC ACID 2.0 0.5-2.2 May 07, 2022 04:46 [facility] FINGERSTICK GLUCOSE Speci men Type: BLOOD PM Comment: Nurse Notified Ordering Provid er: BETO AYALA Report Released Date/Time: May 07, 2022 05:00 PM Reporting Lab: [facility] [address] [facility] [address] Performing Lab: [facility] [address] [facility] [address] FINGERSTICK GLUCOSE 274 H 70-100 May 07, 2022 12:47 [facility] FINGERSTICK GLUCOSE Speci men Type: BLOOD PM Comment: Mark casillas Nurse Notified Ordering Provid er: BETO AYALA Report Released Date/Time: May 07, 2022 05:32 PM Reporting Lab: [facility] [address] [facility] [address] Performing Lab: [facility] [address] [facility] [address] FINGERSTICK GLUCOSE 309 H 70-100 May 07, 2022 06:35 [facility] FINGERSTICK GLUCOSE Speci men Type: BLOOD AM Comment: Mark casillas Nurse Notified Ordering Provid er: GAYLA DOMINGUEZ Report Released Date/Time: May 07, 2022 06:46 AM Reporting Lab: [facility] [address] [facility] [address] Performing Lab: [facility] [address] [facility] [address] FINGERSTICK GLUCOSE 352 H 70-100 May 07, 2022 06:15 AM [facility] ALBUMIN Specim en Type: PLASMA No comment enter ed. Ordering Provid er: GAYLA DOMINGUEZ Report Released Date/Time: May 06, 2022 06:33 PM Reporting Lab: [facility] [address] [facility] [address] Performing Lab: [facility] [address] [facility] [address] ALBUMIN 3.0 L 3.5-5.2 May 07, 2022 [facility] COMPREHENSIVE METABOLIC Spec imen Type: PLASMA 06:15 AM PANEL+MG No comment enter ed. Ordering Provid er: GAYLA DOMINGUEZ Report Released Date/Time: May 06, 2022 09:11 PM Reporting Lab: [facility] [address] [facility] [address] Performing Lab: [facility] [address] [facility] [address] CREATININE 1.2 0.7-1.2 UREA NITROGEN 25 8-26 [...] L >60 May 07, 2022 06:15 AM [facility] CBC & DIFF Specim en Type: BLOOD Comment: Manual Differential Performed Ordering Provid er: GAYLA DOMINGUEZ Report Released Date/Time: May 06, 2022 09:11 PM Reporting Lab: [facility] [address] Performing Lab: [facility] [address] WBC 20.25 H 4.0-11.0 RBC 3.54 L [...] NORMOCYTIC, NORMOCHROMIC May 07, 2022 12:19 AM [facility] LACTIC ACID Specim en Type: PLASMA No comment enter ed. Ordering Provid er: GAYLA DOMINGUEZ Report Released Date/Time: May 06, 2022 07:13 PM Reporting Lab: [facility] [address] Performing Lab: [facility] [address] LACTIC ACID 2.7 H 0.5-2.2 May 06, 2022 10:45 [facility] FINGERSTICK GLUCOSE Speci men Type: BLOOD PM Comment: Save R esult Nurse Notified Ordering Provid er: GAYLA DOMINGUEZ Report Released Date/Time: May 07, 2022 12:08 AM Reporting Lab: [facility] [address] [facility] [address] Performing Lab: [facility] [address] [facility] [address] FINGERSTICK GLUCOSE 320 H 70-100 May 06, 2022 06:53 [facility] MRSA SURVL NARES Specimen Type: NARES PM DNA No comment enter ed. Ordering Provid er: GAYLA DOMINGUEZ Report Released Date/Time: May 06, 2022 06:33 PM Reporting Lab: [facility] [address] [facility] [address] Performing Lab: [facility] [address] [facility] [address] MRSA SURVL NARES DNA POSITIVE HH Negative May 06, 2022 06:51 PM [facility] LACTIC ACID Specim en Type: PLASMA No comment enter ed. Ordering Provid er: GAYLA DOMINGUEZ Report Released Date/Time: May 06, 2022 06:04 PM Reporting Lab: [facility] [address] [facility] [address] Performing Lab: [facility] [address] [facility] [address] LACTIC ACID 3.1 H 0.5-2.2 May 06, 2022 06:51 [facility] CARDIAC TROPONIN I Specim en Type: PLASMA PM No comment enter ed. Ordering Provid er: GAYLA DOMINGUEZ Report Released Date/Time: May 06, 2022 06:05 PM Reporting Lab: [facility] [address] [facility] [address] Performing Lab: [facility] [address] [facility] [address] CARDIAC TROPONIN I <0.028 <0.028 May 06, 2022 06:51 [facility] EXTRA GOLD GEL TUBE Speci men Type: SERUM PM No comment enter ed. Ordering Provid er: GAYLA DOMINGUEZ Report Released Date/Time: May 06, 2022 06:52 PM Reporting Lab: [facility] [address] [facility] [address] Performing Lab: [facility] [address] [facility] [address] EXTRA GOLD GEL TUBE RECEIVED May 06, 2022 06:51 [facility] C-REACTIVE PROTEIN Specim en Type: PLASMA PM No comment enter ed. Ordering Provid er: GAYLA DOMINGUEZ Report Released Date/Time: May 06, 2022 09:29 PM Reporting Lab: [facility] [address] Performing Lab: [facility] [address] C-REACTIVE PROTEIN 392.40 H <5.00 May 06, 2022 10:51 AM [facility] URINALYSIS Specim en Type: URINE No comment enter ed. Ordering Provid er: MODESTA VILLANUEVA Report Released Date/Time: May 06, 2022 10:11 AM Reporting Lab: [facility] [address] Performing Lab: [facility] [address] URINE COLOR YELLOW SPECIFIC GRAVITY 1.020 1.003-1.035 [...] ESTERASE 500 NEGATIVE May 06, 2022 10:24 [facility] COVID-19 DIAGNOSTIC Speci men Type: NASOPHARYNGEAL AM PANEL (CEPHEID) Comment: Cephei d GeneXpert (618) Ordering Provid er: MODESTA VILLANUEVA Report Released Date/Time: May 06, 2022 10:11 AM Reporting Lab: [facility] [address] Performing Lab: [facility] [address] COVID-19 (CEPHEID) Not Detected Not Dete cted May 06, 2022 10:20 AM [facility] POC ABG/LACTATE Specim en Type: VENOUS BLOOD No comment enter ed. Ordering Provid er: MODESTA VILLANUEVA Report Released Date/Time: May 06, 2022 10:22 AM Reporting Lab: [facility] [address] Performing Lab: [facility] [address] POC PH 7.410 7.31-7.41 POC PCO2 28.9 L 35.00-45.00 POC PO2 82 H 35.0-40.0 POC TCO2 19 L 24.0-29.0 POC HCO3 18.3 L 23.0-28.0 POC BE ECT -6 L -2 POC SO2 96 H 70-75 POC LACTATE 3.62 0.90-1.70 May 06, 2022 10:00 AM [facility] PHOSPHORUS Specim en Type: PLASMA No comment enter ed. Ordering Provid er: MODESTA VILLANUEVA Report Released Date/Time: May 06, 2022 10:11 AM Reporting Lab: [facility] [address] [facility] [address] Performing Lab: [facility] [address] [facility] [address] PHOSPHORUS 2.5 2.3-4.7 May 06, 2022 10:00 [facility] ACT PART THROMBO TIME Spe cimen Type: PLASMA AM No comment enter ed. Ordering Provid er: MODESTA VILLANUEVA Report Released Date/Time: May 06, 2022 10:11 AM Reporting Lab: [facility] [address] [facility] [address] Performing Lab: [facility] [address] [facility] [address] APTT 37.8 H 25.1-36.5 May 06, 2022 10:00 [facility] PROTHROMBIN TIME/INR Spec imen Type: PLASMA AM No comment enter ed. Ordering Provid er: MODESTA VILLANUEVA Report Released Date/Time: May 06, 2022 10:11 AM Reporting Lab: [facility] [address] [facility] [address] Performing Lab: [facility] [address] [facility] [address] .INR 2.5 H 0.8-1.1 .PT 29.2 H 9.4-12.5 May 06, 2022 10:00 [facility] CARDIAC TROPONIN I Specim en Type: PLASMA AM Comment: Critic al Value Reported To: BROOKS COTE 05-06-2022 @1053 BY MBB. Critical value report confirmed. Ordering Provid er: MODESTA VILLANUEVA Report Released Date/Time: May 06, 2022 10:11 AM Reporting Lab: [facility] [address] [facility] [address] Performing Lab: [facility] [address] [facility] [address] CARDIAC TROPONIN I 0.035 HH <0.028 May 06, 2022 10:00 AM [facility] PROCALCITONIN Specim en Type: PLASMA No comment enter ed. Ordering Provid er: MODESTA VILLANUEVA Report Released Date/Time: May 06, 2022 10:11 AM Reporting Lab: [facility] [address] [facility] [address] Performing Lab: [facility] [address] PROCALCITONIN 22.29 H <0.09 May 06, 2022 10:00 AM [facility] LIPASE Specim en Type: PLASMA No comment enter ed. Ordering Provid er: MODESTA VILLANUEVA Report Released Date/Time: May 06, 2022 10:11 AM Reporting Lab: [facility] [address] [facility] [address] Performing Lab: [facility] [address] LIPASE <4 <60 May 06, 2022 10:00 AM [facility] CBC & DIFF Specim en Type: BLOOD Comment: Manual Differential Performed Ordering Provid er: MODESTA VILLANUEVA Report Released Date/Time: May 06, 2022 10:11 AM Reporting Lab: [facility] [address] [facility] [address] Performing Lab: [facility] [address] [facility] [address] WBC 18.82 H 4.0-11.0 RBC 3.70 L [...] .RBC MORPHOLOGY PRESENT May 06, 2022 10:00 [facility] EXTRA GOLD GEL TUBE Speci men Type: SERUM AM No comment enter ed. Ordering Provid er: LINNEA RAND Report Released Date/Time: May 06, 2022 10:25 AM Reporting Lab: [facility] [address] [facility] [address] Performing Lab: [facility] [address] [facility] [address] EXTRA GOLD GEL TUBE RECEIVED May 06, 2022 [facility] COMPREHENSIVE METABOLIC Spec imen Type: PLASMA 10:00 AM PANEL+MG Comment: Manual Differential Performed Ordering Provid er: MODESTA VILLANUEVA Report Released Date/Time: May 06, 2022 10:11 AM Reporting Lab: [facility] [address] [facility] [address] Performing Lab: [facility] [address] CREATININE 1.3 H 0.7-1.2 UREA NITROGEN 25 [...] 54 L >60 May 06, 2022 09:46 [facility] FINGERSTICK GLUCOSE Speci men Type: BLOOD AM Comment: Mark casillas Nurse Notified Ordering Provid er: MODESTA VILLANUEVA Report Released Date/Time: May 06, 2022 09:59 AM Reporting Lab: [facility] [address] [facility] [address] Performing Lab: [facility] [address] FINGERSTICK GLUCOSE 369 H 70-100 Apr 30, 2022 09:17 AM [facility] CBC Specim en Type: BLOOD No comment enter ed. Ordering Provid er: BILL ROONEY Report Released Date/Time: Apr 30, 2022 08:21 AM Reporting Lab: [facility] [address] [facility] [address] Performing Lab: [facility] [address] WBC 10.40 4.0-11.0 RBC 3.96 L 4.6-6.2 HGB 12.3 L 13.5-17.9 HCT 37.8 L 41-54 MCV 95.5 80-100 MCH 31.1 27-33 MCHC 32.5 32.0-37.5 PLT 286 150-400 MPV 10.1 7.4-10.4 RDW 14.6 H 11.5-14.5 Apr 30, 2022 [facility] BASIC METABOLIC Specimen Typ e: PLASMA 09:17 AM PANEL+MG No comment enter ed. Ordering Provid er: BILL ROONEY Report Released Date/Time: Apr 30, 2022 08:21 AM Reporting Lab: [facility] [address] [facility] [address] Performing Lab: [facility] [address] CREATININE 1.2 0.7-1.2 UREA NITROGEN 26 8-26 [...] dy Source Pressure Rate Mass Index May 10 [facility] 2021 09:34 [place] PM [facility] May 10 [facility] 2021 12:30 [facility] AM [facility] Social History: Smoking Status (Most current) and [...] Comment Facility Feb 02, 2022 09:30 AM [place]-TOBACCO NEVER USED [employer] [facility] Tobacco Use History This section includes a history of the smoking, or tobacco- related health factors, that were collected on or before the date of the Encounter. The data comes from the [place] facility where the Encounter took place. Date/Time Smoking Status/Tobacco Use Comment [facility] Mar 22, 2021 07:45 AM [place]-TOBACCO NEVER USED [employer] [facility] Oct 02, 2019 10:02 AM VA-TOBACCO NEVER USED [place] [facility] May 21, 2018 09:05 AM [place]-TOBACCO NEVER USED [place] [facility] December 25, 2017 06:14 PM INPT NO TOBACCO USE IN LAST 30 DAYS [facility] Oct 01, 2017 07:34 AM LIFETIME NON-TOBACCO USER [facility] Sep 28, 2016 08:44 AM LIFETIME NON-TOBACCO USER [facility] Oct 14, 2015 07:52 AM LIFETIME NON-TOBACCO USER [facility] Oct 11, 2014 07:59 AM LIFETIME NON-TOBACCO USER [facility] January 15, 2007 07:55 AM LIFETIME NON-TOBACCO USER [facility] Advance Directives: All historical [...] Apr 18, 2018 ADVANCE DIRECTIVE LARISSA SIGALA [facility] Apr 18, 2018 ADVANCE DIRECTIVE DISCUSSION JOVONRAEN [facility] December 23, 2017 CLINICAL WARNING [facility] May 11, 2003 ADVANCE DIRECTIVE BERT CASILLAS [facility] Radiology Reports: +/- 30 [...] the Encounter. The data comes from all [place] treatment facilities. Date/Time Radiology Report Provider Source May 11, 2022 09:46 CHEST 1 VIEW: SONJA OVALLES [facility] AM LUISANA EDDY [id number] -1935 M Exm Date: MAY 11, 2022@09:46 Req Phys: CODIE LEON Loc: OP Unknown /05-13-2022@05:05 Img Loc: MAIN X-RAY Service: PRIMARY CARE - MED OFFICE (Case [id number] COMPLETE) CHEST 1 VIEW (RAD Detailed) CPT:94106 Proc Modifiers : PORTABLE EXAM Reason for [...] 11, 2022 Date Verified: MAY 11, 2022 Hip Hop Dance Instructor E-Sig:/ES/SONJA OVALLES MD Report: CHEST 1 VIEW [...] Primary Interpreting Staff: SONJA OVALLES MD, RADIOLOGIST (Hip Hop Dance Instructor) /CDC May 10, 2022 03:49 CT HEAD (P): RADIOLOGY,OUTSIDE [facility] PM LUISANA EDDY [id number] -1935 M SERVICE Exm Date: MAY 10, 2022@15:49 Req Phys: CODIE LEON Loc: OP Unknown /05-13-2022@05:05 Img Loc: CT IMAGING Service: PRIMARY CARE - MED OFFICE (Case [id number] COMPLETE) CT HEAD/BRAIN W/O CONTRAST (CT Detailed) CPT:69554 Reason for Study: CHANGE IN MENTAL STATUS Clinical History: CHANGE IN MENTAL STATUS. ORDER ADMINISTRATIVELY ENTERED FOLLOWING SYSTEM OUTAGE. Report Status: Verified Date Reported: MAY 10, 2022 Date Verified: MAY 10, 2022 Hip Hop Dance Instructor E-Sig: Report: CT HEAD/BRAIN W/O CONTRAST [PRINTSET] HISTORY: Change in mental status. COMPARISON: CT from 05/07/2022. TECHNIQUE: Contiguous axial CT images from the level of the skull base through the skull apex, with coronal and s agittal reformats, performed at the local [place] facility. 321 images were received by the [place] National Teleradiology Program (NTP) for interpretation. RADIATION [...] study. READING PHYSICIAN: Akash Mccoy M.D. -[phone] 05/10/2022 17:35 PDT [facility] National Teleradiology Program [phone] (For Medical Practitioner Use Only ) Attention Patients / Veterans: If you have ques tions or concerns about these test results, please contact [facility] or primary care team. Primary Interpreting Staff: RADIOLOGY,OUTSIDE SERVICE, Staff Physician / May 08, 2022 07:45 CT T-SPINE (P): RADIOLOGY,OUTSIDE [facility] NUNUNELYLUISANA H [id number] -1935 M SERVICE Exm Date: MAY 08, 2022@19:45 Req Phys: CODIE LEON Loc: OP Unknown /05-13-2022@05:05 Img Loc: CT IMAGING Service: PRIMARY CARE - MED OFFICE (Case [id number] COMPLETE) CT SPINE THORACIC W/O CONTR AST (CT Detailed) CPT:70924 Reason for Study: mrsa bacteremia, spinal surge ry - r/o abscess or discitis Clinical History: [place] IS NOT under investigation for COVID-19 or is COVID-19 negative Defer to radiologist for final CT protocol. Responsible provider name and phone number to n otify for critical findings if other than user placing the order a nd pager listed below: User placing orders pager: [phone] LAST 3: Collection DT Specimen Test Name [...] GFR (eGF 44 L Ref: >=60 Allergies: ([place] only) SIMVASTATIN (Feb 29, 2004) CEPHALEXIN (Mar 01, 2004) Report Status: Verified Date Reported: MAY 08, 2022 Date Verified: MAY 08, 2022 Hip Hop Dance Instructor E-Sig: Report: CT SPINE THORACIC W/O CONTRAST [PRINTSET] HISTORY:MRSA bacteremia NUMBER OF IMAGES:1151 COMPARISON: Correlation with images from recent CT abdomen and pelvis May 06, 2022 TECHNIQUE: A non contrast CT of the thoracic sp ine was performed at the local [place]. Images were subsequently sent to [facility] for interpretation. Axial, coronal and sagittal [...] thoracic level. READING PHYSICIAN: Luisana Webb MD -[id number] [phone] 05/08/2022 19:20 PDT [facility] National Teleradiology Program [phone] (For Medical Practitioner Use Only ) Attention Patients / Veterans: If you have ques tions or concerns about these test results, please contact your [facility] provider or primary care team. Primary Interpreting Staff: RADIOLOGY,OUTSIDE SERVICE, Staff Physician / May 08, 2022 04:48 CHEST 1 VIEW: RADIOLOGY,OUTSIDE [facility] PM LUISANA EDDY [id number] -1935 M SERVICE Exm Date: MAY 08, 2022@16:48 Req Phys: CODIE LEON Loc: OP Unknown /05-13-2022@05:05 Img Loc: MAIN X-RAY Service: PRIMARY CARE - MED OFFICE (Case [id number] COMPLETE) CHEST 1 VIEW (RAD Detailed) CPT:11882 Proc Modifiers : PORTABLE EXAM Reason for Study: dyspnea Clinical History: [place] IS NOT under investigation for COVID-19 or is COVID-19 negative acute worsening of dyspnea Responsible provider name and phone number to notify for critical findings if other than user placing the order and pager listed below: User placing orders pager: [phone] malini cell [phone] LAST CREATININE 1.1 (05/08/22) Report Status: Verified Date Reported: MAY 08, 2022 Date Verified: MAY 08, 2022 Hip Hop Dance Instructor E-Sig: Report: CHEST 1 VIEW HISTORY: dyspnea COMPARISON: 05/06/2022 TECHNIQUE: Frontal view(s) of the chest, submit nola to the [place] National Teleradiology Program (NTP) for interp retation. FINDINGS: Reduced lung volumes. Progressive cardiomegaly, and vascular congestion as well as diffuse interstitial prom inence with probable small effusions. Impression: Expiratory exam with findings of CHF and mild e santa READING PHYSICIAN: Nghia Menjivar M.D. -[id number] 10 05/08/2022 18:57 EDT [facility] National Teleradiology Program [phone] (For Medical Practitioner Use Only ) Attention Patients / Veterans: If you have ques tions or concerns about these test results, please contact your [facility] provider or primary care team. Primary Interpreting Staff: RADIOLOGY,OUTSIDE SERVICE, Staff Physician / May 07, 2022 10:29 CT HEAD (P): SHANI POLANCO [facility] AM LUISANA EDDY [id number] -1935 M Exm Date: MAY 07, 2022@10:29 Req Phys: BETO AYALA Loc: OP Unknown/0 05-13-2022@05:05 Img Loc: CT IMAGING Service: PRIMARY CARE - MED OFFICE (Case [id number] COMPLETE) CT HEAD/BRAIN W/O CONTRAST ( CT Detailed) CPT:63597 Reason for Study: seizure noted at [facility] Clinical History: [place] IS NOT under investigation for COVID-19 or is COVID-19 negative Defer to radiologist for final CT protocol. Responsible provider name and phone number to n otify for critical findings if other than user placing the order a nd pager listed below: User placing orders pager: [phone] LAST 3: Collection DT Specimen Test Name [...] GFR (eGF 44 L Ref: >=60 Allergies: ([place] only) SIMVASTATIN (Feb 29, 2004) CEPHALEXIN (Mar 01, 2004) Report Status: Verified Date Reported: MAY 07, 2022 Date Verified: MAY 07, 2022 Hip Hop Dance Instructor E-Sig:/ES/SHANI POLANCO MD Report: EXAM: CT HEAD/BRAIN W/O CONTRAST HISTORY: seizure noted at [facility] Reason for Study: seizure noted at [facility] [place] IS NOT under investigation for COVID-19 or is COVID-19 negative Defer to radiologist for final CT prot ocol. Responsible provider name and phone number to notify for cr itical findings if other than user placing the order and pager lis nola below: User placing orders pager: [phone] LAST 3: Collecti on DT Specimen Test [...] Primary Interpreting Staff: SHANI POLANCO MD, RADIOLOGIST (Hip Hop Dance Instructor) /Javed May 06, 2022 11:40 CHEST 1 VIEW: RADIOLOGY,OUTSIDE [facility] AM LUISANA EDDY [id number] -1935 M SERVICE Exm Date: MAY 06, 2022@11:40 Req Phys: MODESTA VILLANUEVA Loc: [facility] EMERGENCY DEPT WALK-IN (Re Img Loc: MAIN X-RAY Service: Unknown (Case [id number] COMPLETE) CHEST 1 VIEW (RAD Detailed) C PT:75214 Proc Modifiers : PORTABLE EXAM Reason for [...] pager listed below: User placing orders pager: [phone] LAST CREATININE 1.2 (04/30/22) Report Status: Verified Date Reported: MAY 06, 2022 Date Verified: MAY 06, 2022 Hip Hop Dance Instructor E-Sig: Report: Technique: Frontal chest. No comparison Impression: Cardiac silhouette is mildly enlarged. There is mild pulmonary venous congestion. No definite pleural effusion . No pneumothorax seen. READING PHYSICIAN: Vern Donnelly M.D. -[id number] 07 05/06/2022 13:26 EDT [facility] National Teleradiology Program [phone] (For Medical Practitioner Use Only ) Attention Patients / Veterans: If you have ques tions or concerns about these test results, please contact your o rdering provider or primary care team. Primary Interpreting Staff: RADIOLOGY,OUTSIDE SERVICE, Staff Physician / May 06, 2022 10:36 CT (AP) ABDOMEN/PELVIS (P): RADIOLOGY,OUTSIDE [facility] AM LUISANA EDDY [id number] -1935 M SERVICE Exm Date: MAY 06, 2022@10:36 Req Phys: MODESTA VILLANUEVA Loc: [facility] EMERGENCY DEPT WALK-IN (Re Img Loc: CT IMAGING Service: Unknown (Case [id number] COMPLETE) CT (AP) ABDOMEN/PELVIS W CONT RAST(CT Detailed) CPT:33895 Reason for Study: fever, back pain Clinical [...] pager listed below: User placing orders pager: [phone] LAST 3: Collection DT Specimen Test Name [...] ESTIMATED GFR(eGF 44 L Ref: >=60 Allergies: ([place] only) SIMVASTATIN (Feb 29, 2004) CEPHALEXIN (Mar 01, 2004) To see allergies from all [facility] locations click Re ports tab>Remote Data>All Available Sites>Clinical Reports>Aller gies. Report Status: Verified Date Reported: MAY 06, 2022 Date Verified: MAY 06, 2022 Hip Hop Dance Instructor E-Sig: Report: Exam: CT (AP) ABDOMEN/PELVIS W CONTRAST [PRINTS ET] Clinical History: fever, back pain Number of images: 918 Comparison: No priors available Technique: The study was protocoled and supervi sed at the local [place] facility. CT of the abdomen and pelvis was performed afte r the uneventful administration of iodinated contrast. Images we re received by the [place] National Teleradiology Program (NTP) for interpretation. Total [...] findings, above. READING PHYSICIAN: Eduin Donaldson M.D. -[phone] 05/06/2022 12:48 [facility] DNAtriXradiology Program [phone] (For Medical Practitioner Use Only ) Attention Patients / Veterans: If you have ques tions or concerns about these test results, please contact your [facility] provider or primary care team. Primary Interpreting Staff: RADIOLOGY,OUTSIDE SERVICE, Staff Physician / May 06, 2022 10:35 CT HEAD/BRAIN W/O CONTRAST: RADIOLOGY,OUTSIDE [facility] LUISANA EDDY [id number] -1935 SERVICE Exm Date: MAY 06, 2022@10:35 Req Phys: MODESTA VILLANUEVA Loc: [facility] EMERGENCY DEPT WALK-IN (Re Img Loc: CT IMAGING Service: Unknown (Case 64 COMPLETE) CT HEAD/BRAIN W/O CONTRAST (C T Detailed) CPT:25195 Reason for Study: falls, blood thinner, AMS, se izure Clinical History: falls, blood thinner, AMS, seizure [place] IS under investigation (PUI) for COVID- 19 or is COVID-19+ Defer to radiologist for final CT protocol. Responsible provider name and phone number to n otify for critical findings if other than user placing the order a nd pager listed below: User placing orders pager: [phone] LAST 3: Collection DT Specimen Test Name [...] ESTIMATED GFR(eGF 44 L Ref: >=60 Allergies: ([place] only) SIMVASTATIN (Feb 29, 2004) CEPHALEXIN (Mar 01, 2004) To see allergies from all [place] locations click Re ports tab>Remote Data>All Available Sites>Clinical Reports>Aller gies. Report Status: Verified Date Reported: MAY 06, 2022 Date Verified: MAY 06, 2022 Hip Hop Dance Instructor E-Sig: Report: CT HEAD/BRAIN W/O CONTRAST Clinical History: falls, blood thinner, AMS, se izure Number of Images: 532 Comparison: 03/12/2022 Technique: The study was protocoled and supervi sed at the local [place] facility. CT of the head without contrast. I mages were subsequently received by the [place] National Telera diology Program (NTP) for interpretation. [...] T findings. READING PHYSICIAN: Eduin Donaldson M.D. -[id number] 05/06/2022 12:30 [facility] National Teleradiology Program [phone] (For Medical Practitioner Use Only ) Attention Patients / Veterans: If you have ques tions or concerns about these test results, please contact your o rdering provider or primary care team. Primary Interpreting Staff: RADIOLOGY,OUTSIDE SERVICE, Staff Physician / May 06, 2022 10:35 CT CERVICAL SPINE W/O CONTRAST: RADIOLOGY,OUT SIDE [facility] AM LUISANA EDDY [id number] -1935 M SERVICE Exm Date: MAY 06, 2022@10:35 Req Phys: MODESTA VILLANUEVA Loc: [facility] EMERGENCY DEPT WALK-IN (Re Img Loc: CT IMAGING Service: Unknown (Case 65 COMPLETE) CT CERVICAL SPINE W/O CONTRAS T (CT Detailed) CPT:49484 Reason for Study: falls, blood thinner, AMS, se izure Clinical History: falls, blood thinner, AMS, seizure [place] IS under investigation (PUI) for COVID- 19 or is COVID-19+ Defer to radiologist for final CT protocol. Responsible provider name and phone number to n otify for critical findings if other than user placing the order a nd pager listed below: User placing orders pager: [phone] LAST 3: Collection DT Specimen Test Name [...] ESTIMATED GFR(eGF 44 L Ref: >=60 Allergies: ([place] only) SIMVASTATIN (Feb 29, 2004) CEPHALEXIN (Mar 01, 2004) To see allergies from all [facility] locations click Re ports tab>Remote Data>All Available Sites>Clinical Reports>Aller gies. Report Status: Verified Date Reported: MAY 06, 2022 Date Verified: MAY 06, 2022 Hip Hop Dance Instructor E-Sig: Report: CT CERVICAL SPINE W/O CONTRAST HISTORY:falls, blood thinner, AMS, seizure NUMBER OF IMAGES:[id number] COMPARISON: None available. TECHNIQUE: A non contrast CT of the cervical sp ine was performed at the local [place]. Images were subsequently sent to [facility] for interpretation. Axial, coronal and sagittal [...] tissues: 11 mm subcutaneous cyst in the [facility] upper neck. Impression: -Motion artifact limits the exam. -Given this limitation, no acute osseous abnorm ality. -Moderate multilevel degenerative change throug hout the cervical spine. -Ancillary findings, above. READING PHYSICIAN: Eduin Donaldson M.D. [phone] 05/06/2022 12:33 [facility] National Teleradiology Program [phone] (For Medical Practitioner Use Only ) Attention [...] the Encounter. The data comes from all [place] treatment facilities. Date/Time Pathology Report Provider Source May 09, 2022 05:30 AM LR MICROBIOLOGY REPORT: [facility] Reporting Lab: [facility] [CLIA# [id number]] [place] [address] Accession [UID]: [id number] [[id number]] Receiv ed: May 09, 2022@01:35 Collection sample: BLOOD Collection date: Apr 05:30 Provider: CODIE LEON Comment on specimen: LEFT ARM, RECEIVED 2 BLOOD CULTURE BOTTLES Test(s) ordered: CULTURE & SUSCEPTIBILITY...... 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 R TRIMETH/SULFA................. S TETRACYCLINE.................. S CLINDAMYCIN................... S RIFAMPIN...................... S VANCOMYCIN.................... S Bacteriology Remark(s): VANCOMYCIN SHAMIKA: <=0.5 ug/mL THIS REPORT IS FINAL =--=--=--=--=--=--=--=--=--=--=--=--=--= --=--=--=--=--=--=--=--=--=--=--=--=-- Performing Laboratory: Bacteriology Report Performed By: [facility] [CLIA# [id number]] [place] [address] May 08, 2022 03:23 PM LR MICROBIOLOGY REPORT: [facility] Reporting Lab: [facility] [CLIA# [id number]] [place] [address] Accession [UID]: [id number] [[id number]] Receiv ed: May 08, 2022@15:41 Collection sample: BLOOD Collection date: Apr 15:23 Provider: CODIE LEON Comment on specimen: LEFT ARM, RECEIVED 2 BLOOD CULTURE BOTTLES Test(s) ordered: CULTURE & SUSCEPTIBILITY...... completed: May 10, 2022 * BACTERIOLOGY FINAL REPORT => May 10, 2022 16:3 1 TECH CODE: [id number] CULTURE RESULTS: GROWTH SAME THAT OF ANOTHER CULTURE Comment: FOR SUSCEPTIBILITY REPORT SEE PREVIOUS POSITIVE SAME MB 22 [id number] ( 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 from Anaerobic bottle ) ( Recovered from Aerobic bottle ) Bacteriology Remark(s): THIS REPORT IS FINAL =--=--=--=--=--=--=--=--=--=--=--=--=--= --=--=--=--=--=--=--=--=--=--=--=--=-- Performing Laboratory: Bacteriology Report Performed By: [facility] [CLIA# [id number]] [place] [address] May 08, 2022 03:21 PM LR MICROBIOLOGY REPORT: [facility] Reporting Lab: [facility] [CLIA# [id number]] [place] [address] Accession [UID]: [id number] [[id number]] Receiv ed: May 08, 2022@15:40 Collection sample: BLOOD Collection date: Apr 15:21 Provider: CODIE LEON Comment on specimen: RT ARM, RECEIVED 2 BLOOD CU LTURE BOTTLES Test(s) ordered: CULTURE & SUSCEPTIBILITY...... completed: May 10, 2022 * BACTERIOLOGY FINAL REPORT => May 10, 2022 16:3 1 TECH CODE: [id number] CULTURE RESULTS: GROWTH SAME THAT OF ANOTHER CULTURE Comment: FOR SUSCEPTIBILITY REPORT SEE PREVIOUS POSITIVE SAME MB 22 [id number] ( 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 from Anaerobic bottle ) ( Recovered from Aerobic bottle ) Bacteriology Remark(s): THIS REPORT IS FINAL =--=--=--=--=--=--=--=--=--=--=--=--=--= --=--=--=--=--=--=--=--=--=--=--=--=-- Performing Laboratory: Bacteriology Report Performed By: [facility] [CLIA# [id number]] [place] [address] May 07, 2022 05:30 AM LR MICROBIOLOGY REPORT: [facility] Reporting Lab: [facility] [CLIA# [id number]] [place] [address] Accession [UID]: [id number] [[id number]] Receiv ed: May 07, 2022@01:35 Collection sample: [...] REPORT SEE PREVIOUS POSITIVE SAME MB 22 [id number] ( 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 from Aerobic bottle ) ( Recovered from Anaerobic bottle ) Bacteriology Remark(s): THIS REPORT IS FINAL =--=--=--=--=--=--=--=--=--=--=--=--=--= --=--=--=--=--=--=--=--=--=--=--=--=-- Performing Laboratory: Bacteriology Report Performed By: [facility] [CLIA# [id number]] [place] [address] May 06, 2022 10:51 AM LR MICROBIOLOGY REPORT: [facility] Reporting Lab: [facility] [CLIA# [id number]] [place] [address] Accession [UID]: [id number] [[id number]] Receiv ed: May 06, 2022@11:32 Collection sample: [...] --=--=--=--=--=--=--=--=--=--=--=--=-- Performing Laboratory: Bacteriology Report Performed By: [facility] [CLIA# [id number]] [place] [address] May 06, 2022 10:34 AM LR MICROBIOLOGY REPORT: [facility] Reporting Lab: [facility] [CLIA# [id number]] [place] [address] Accession [UID]: [id number] [[id number]] Receiv ed: May 06, 2022@10:51 Collection sample: BLOOD Collection date: Apr 10:34 Provider: MODESTA VILLANUEVA Comment on specimen: RECEIVED 2 BLOOD CULTURE [facility] Test(s) ordered: CULTURE & SUSCEPTIBILITY...... completed: May 07, 2022 * BACTERIOLOGY FINAL REPORT => May 08, 2022 08:3 0 TECH CODE: [id number] CULTURE RESULTS: STAPHYLOCOCCUS AUREUS METHICILL IN RESISTANT [...] --=--=--=--=--=--=--=--=--=--=--=--=-- Performing Laboratory: Bacteriology Report Performed By: [facility] [CLIA# [id number]] [place] [address] May 06, 2022 10:00 AM LR MICROBIOLOGY REPORT: [facility] Reporting Lab: [facility] [CLIA# [id number]] [place] [address] Accession [UID]: [id number] [[id number]] Receiv ed: May 06, 2022@10:41 Collection sample: [...] REPORT SEE PREVIOUS POSITIVE SAME MB 22 [id number] ( 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 from Anaerobic bottle ) ( Recovered from Aerobic bottle ) Bacteriology Remark(s): THIS REPORT IS FINAL =--=--=--=--=--=--=--=--=--=--=--=--=--= --=--=--=--=--=--=--=--=--=--=--=--=-- Performing Laboratory: Bacteriology Report Performed By: [facility] [CLIA# [id number]] [place] [address] Encounter Notes: All associated encounter notes This section contains the clinical notes associated to the Encounter. Date/Time Encounter Note(s) Provider Source May 10, 2022 01:00 AM CRITICAL CARE UNIT NOTE: [facility] LOCAL TITLE: ICCA INPATIENT FLOWSHEET STANDARD TITLE: CRITICAL CARE UNIT NOTE DATE OF NOTE: MAY 10, 2022@01:00 ENTRY DATE: MAY 11, 2022@14:32:58 AUTHOR: BRITTANIEONEYDAKristel EXP COSIGNER: URGENCY: STATUS: COMPLETED This is a place chan only. Please see [employer] to view document. /es/ [facility] ICU DOCUMENT IMPORT Signed: 05/11/2022 14:32 May 10, 2022 01:00 AM CRITICAL CARE UNIT NOTE: [facility] LOCAL TITLE: ICCA RESPIRATORY THERAPY FLOWSHEET STANDARD TITLE: CRITICAL CARE UNIT NOTE DATE OF NOTE: MAY 10, 2022@01:00 ENTRY DATE: MAY 11, 2022@15:00:56 AUTHOR: BRITTANIEOBDULIA-ARKristel EXP COSIGNER: URGENCY: STATUS: COMPLETED This is a place chan only. Please see Spear[employer] to view document. /es/ [facility] ICU DOCUMENT IMPORT Signed: 05/11/2022 15:00
--- OUTSIDE RECORDS SUMMARY | 2022-05-15 09:25 | XMS_ITS | Encounter Summary ---
:1935 [facility] Address [address] [place] [address] Support Name Relationship Address Phone WADE LORENZO Unavailable [phone] [place] [address] WADE LORENZO Unavailable [phone] [place] [address] MARILIA MARSHALLA Unavailable [phone] [facility] [place] [address] GOGEORGE, ARACELI Unavailable [address] [place] [address] Insurance Providers: All historical and current Section [...] Chan [place] MED[place]ARE MCR Aug 19, [id number] Kristel EDDY [facility] (WNR) ADVANTAGE (WNR) 2017 8 [id number] [phone] [facility] 1 [place] MEDICARE M[place] Aug 19, [id number] Kristel EDDY [facility] (WNR) ADVANTAGE (WNR) 2016 8 [id number] [phone] [facility] 1 Selected Encounter This section includes the information on record at [place] for the Encounter. Date/Time Encounter Type Encounter Description Reason Provider Source May 11, 2022 01:00 Inpatient Visit ADMIN PAT ACTIVTIES SYS TEM,CIS-ARK AM (MASNONCT) IHE Encounter Template Text not used by [place] Plan of Treatment: Future Appointments (+ 6 months) and Future Tests (+/- 45 days) The Plan of Treatment section includes future care activities for the patient from [facility] [place] [facility] This section includes future appointments and [...] the Encounter. The data comes from all [facility]. Test Date/Time Test Type Test Details Facility Name Apr 30, 2022 08:21 Laboratory - Chemistry URINALYSIS URINE WC ON CE [facility] AM Order Apr 30, 2022 08:21 Laboratory - CULTURE & SUSCEPTIBILITY [facility] AM Microbiology Order URINE WC May 06, 2022 12:00 Laboratory - Blood ABO/RH - LAB BLOOD [facility] AM Bank Order May 06, 2022 10:11 Laboratory - Blood TYPE & SCREEN - LAB [facility] AM Bank Order BLOOD WC May 06, 2022 10:27 [facility] AM Medication Order May 06, 2022 10:28 [facility] AM Infusion Order May 06, 2022 10:34 [facility] AM Infusion Order May 06, 2022 10:41 [facility] AM Infusion Order May 06, 2022 12:15 [facility] PM Medication Order May 06, 2022 01:31 [facility] PM Medication Order May 06, 2022 04:49 [facility] PM Medication Order May 07, 2022 01:00 Laboratory - CULTURE & SUSCEPTIBILITY [facility] PM Microbiology Order BLOOD WC ONCE May 11, 2022 09:07 Laboratory - CULTURE & SUSCEPTIBILITY [facility] AM Microbiology Order BLOOD WC May 11, 2022 09:07 Laboratory - CULTURE & SUSCEPTIBILITY [facility] AM Microbiology Order BLOOD WC May 11, 2022 09:38 Laboratory - Chemistry EOSINOPHIL SMEAR,URINE [facility] AM Order URINE WC ONCE May 11, 2022 09:38 Laboratory - Chemistry URINALYSIS URINE WC ON CE [facility] AM Order May 11, 2022 09:38 Laboratory - Chemistry [facility]NA [facility] Order Lab Results: +/- [...] Reference Range Comment May 11, 2022 11:13 [facility] FINGERSTICK GLUCOSE Speci men Type: BLOOD AM Comment: Mark casillas Nurse Notified Ordering Provid er: CODIE LEON Report Released Date/Time: May 11, 2022 11:53 AM Reporting Lab: [facility] [address] [facility] [address] Performing Lab: [facility] [address] [facility] [address] FINGERSTICK GLUCOSE 367 H 70-100 May 11, 2022 07:05 [facility] LIVER FUNCTION TESTS Spec imen Type: PLASMA AM No comment enter ed. Ordering Provid er: CODIE LEON Report Released Date/Time: May 11, 2022 09:08 AM Reporting Lab: [facility] [address] [facility] [address] Performing Lab: [facility] [address] [facility] [address] BILIRUBIN, TOTAL 1.6 H 0.2-1.2 ALKALINE PHOSPHATASE 102 40-150 ALT/SGPT 42 <55 AST/SGOT 30 <34 GAMMA GTP 52 <64 DIR. BILIRUBIN 1.2 H <0.5 May 11, 2022 07:05 AM [facility] CK,TOTAL Specim en Type: PLASMA No comment enter ed. Ordering Provid er: CODIE LEON Report Released Date/Time: May 11, 2022 09:08 AM Reporting Lab: [facility] [address] [facility] [address] Performing Lab: [facility] [address] [facility] [address] CK,TOTAL 16 L 39-208 May 11, 2022 07:05 [facility] BASIC METABOLIC Specimen Type: PLASMA AM PANEL+MG No comment enter ed. Ordering Provid er: OG DIAL Report Released Date/Time: May 11, 2022 04:46 AM Reporting Lab: [facility] [address] [facility] [address] Performing Lab: [facility] [address] [facility] [address] CREATININE 1.6 H 0.7-1.2 UREA NITROGEN 28 H 8-26 GLUCOSE 396 H 70-100 SODIUM 150 H 136-145 POTASSIUM 3.7 3.5-5.1 CHLORIDE 120 H 98-107 CO2 23 22-29 CALCIUM 8.4 8.4-10.2 MAGNESIUM 2.1 1.6-2.6 ANION GAP 7 5-15 CREAT EGFR(CKD-EPI) 42 L >60 May 11, 2022 07:05 AM [facility] BNP Specim en Type: PLASMA No comment enter ed. Ordering Provid er: CODIE LEON Report Released Date/Time: May 11, 2022 09:15 AM Reporting Lab: [facility] [address] [facility] [address] Performing Lab: [facility] [address] [facility] [address] BNP 59 <99 May 11, 2022 07:05 AM [facility] CBC Specim en Type: BLOOD No comment enter ed. Ordering Provid er: OG DIAL Report Released Date/Time: May 11, 2022 04:46 AM Reporting Lab: [facility] [address] [facility] [address] Performing Lab: [facility] [address] [facility] [address] WBC 15.93 H 4.0-11.0 RBC 3.60 L 4.6-6.2 HGB 11.2 L 13.5-17.9 HCT 35.3 L 41-54 MCV 98.1 80-100 MCH 31.1 27-33 MCHC 31.7 L 32.0-37.5 PLT 231 150-400 MPV 11.2 H 7.4-10.4 RDW 15.2 H 11.5-14.5 May 11, 2022 06:14 [facility] FINGERSTICK GLUCOSE Speci men Type: BLOOD AM Comment: Mark casillas Nurse Notified Ordering Provid er: CODIE LEON Report Released Date/Time: May 11, 2022 06:42 AM Reporting Lab: [facility] [address] [facility] [address] Performing Lab: [facility] [address] [facility] [address] FINGERSTICK GLUCOSE 345 H 70-100 May 11, 2022 02:24 [facility] FINGERSTICK GLUCOSE Speci men Type: BLOOD AM Comment: Mark casillas Ordering Provid er: CODIE LEON Report Released Date/Time: May 11, 2022 02:44 AM Reporting Lab: [facility] [address] [facility] [address] Performing Lab: [facility] [address] [facility] [address] FINGERSTICK GLUCOSE 375 H 70-100 May 10, 2022 08:38 [facility] FINGERSTICK GLUCOSE Speci men Type: BLOOD PM Comment: Mark casillas Ordering Provid er: CODIE LEON Report Released Date/Time: May 11, 2022 12:31 AM Reporting Lab: [facility] [address] [facility] [address] Performing Lab: [facility] [address] [facility] [address] FINGERSTICK GLUCOSE 346 H 70-100 May 10, 2022 05:05 [facility] FINGERSTICK GLUCOSE Speci men Type: BLOOD PM Comment: Mark casillas Nurse Notified Ordering Provid er: CODIE LEON Report Released Date/Time: May 10, 2022 11:50 PM Reporting Lab: [facility] [address] [facility] [address] Performing Lab: [facility] [address] [facility] [address] FINGERSTICK GLUCOSE 245 H 70-100 May 10, 2022 02:00 [facility] VANCOMYCIN (TROUGH) Speci men Type: PLASMA PM No comment enter ed. Ordering Provid er: CODIE LEON Report Released Date/Time: May 11, 2022 01:34 AM Reporting Lab: [facility] [address] [facility] [address] Performing Lab: [facility] [address] [facility] [address] VANCOMYCIN (TROUGH) 31.8 H 10.0-15.0 May 10, 2022 [facility] BASIC METABOLIC Specimen Typ e: PLASMA 02:00 PM PANEL+MG No comment enter ed. Ordering Provid er: CODIE LEON Report Released Date/Time: May 11, 2022 01:34 AM Reporting Lab: [facility] [address] Performing Lab: [facility] [address] CREATININE 1.1 .7-1.2 UREA NITROGEN 22 8-26 GLUCOSE 279 H 70-100 SODIUM 150 H 136-145 POTASSIUM 3.2 L 3.5-5.1 CHLORIDE 116 H 98-107 CO2 23 22-29 CALCIUM 8.5 8.4-10.2 MAGNESIUM 2.0 1.6-2.6 ANION GAP 11 5-15 CREAT EGFR(CKD-EPI) 65 >60 May 10, 2022 01:20 PM [facility] CBC & DIFF Specim en Type: BLOOD Comment: Shellya nola Differential Performed Ordering Provid er: MD ESTEBAN Report Released Date/Time: May 10, 2022 08:52 PM Reporting Lab: [facility] [address] Performing Lab: [facility] [address] WBC 16.24 H 4.0-11.0 RBC 3.76 L [...] 0.28 H 0-0.1 May 10, 2022 11:07 [facility] FINGERSTICK GLUCOSE Speci men Type: BLOOD AM Comment: Mark casillas Nurse Notified Ordering Provid er: CODIE LEON Report Released Date/Time: May 11, 2022 12:31 AM Reporting Lab: [facility] [address] [facility] [address] Performing Lab: [facility] [address] [facility] [address] FINGERSTICK GLUCOSE 253 H 70-100 May 10, 2022 06:16 [facility] FINGERSTICK GLUCOSE Speci men Type: BLOOD AM Comment: Mark casillas Nurse Notified Ordering Provid er: CODIE LEON Report Released Date/Time: May 10, 2022 11:50 PM Reporting Lab: [facility] [address] [facility] [address] Performing Lab: [facility] [address] [facility] [address] FINGERSTICK GLUCOSE 271 H 70-100 May 09, 2022 09:07 [facility] FINGERSTICK GLUCOSE Speci men Type: BLOOD PM Comment: Mark casillas Ordering Provid er: CODIE LEON Report Released Date/Time: May 10, 2022 11:50 PM Reporting Lab: [facility] [address] [facility] [address] Performing Lab: [facility] [address] [facility] [address] FINGERSTICK GLUCOSE 209 H 70-100 May 09, 2022 05:33 [facility] FINGERSTICK GLUCOSE Speci men Type: BLOOD PM Comment: Mark casillas Nurse Notified Ordering Provid er: CODIE LEON Report Released Date/Time: May 09, 2022 05:53 PM Reporting Lab: [facility] [address] [facility] [address] Performing Lab: [facility] [address] [facility] [address] FINGERSTICK GLUCOSE 251 H 70-100 May 09, 2022 02:09 [facility] VANCOMYCIN (PEAK) Specime n Type: SERUM PM No comment enter ed. Ordering Provid er: AMARIS D EJESUS Report Released Date/Time: May 09, 2022 09:33 AM Reporting Lab: [facility] [address] [facility] [address] Performing Lab: [facility] [address] [facility] [address] VANCOMYCIN (PEAK) 24.2 20.0-40.0 May 09, 2022 11:19 [facility] FINGERSTICK GLUCOSE Speci men Type: BLOOD AM Comment: Mark casillas Nurse Notified Ordering Provid er: CODIE LEON Report Released Date/Time: May 09, 2022 11:38 AM Reporting Lab: [facility] [address] [facility] [address] Performing Lab: [facility] [address] [facility] [address] FINGERSTICK GLUCOSE 240 H 70-100 May 09, 2022 08:13 [facility] VANCOMYCIN (TROUGH) Speci men Type: SERUM AM No comment enter ed. Ordering Provid er: AMARIS DE JESUS Report Released Date/Time: May 08, 2022 11:14 AM Reporting Lab: [facility] [address] [facility] [address] Performing Lab: [facility] [address] [facility] [address] VANCOMYCIN (TROUGH) 16.1 H 10.0-15.0 May 09, 2022 05:33 AM [facility] CBC & DIFF Specim en Type: BLOOD Comment: Automa nola Differential Performed Ordering Provid er: CODIE LEON Report Released Date/Time: May 08, 2022 05:27 PM Reporting Lab: [facility] [address] [facility] [address] Performing Lab: [facility] [address] [facility] [address] WBC 14.92 H 4.0-11.0 RBC 3.41 L [...] GRAN 0.16 H 0-0.1 May 09, 2022 [facility] COMPREHENSIVE METABOLIC Spec imen Type: PLASMA 05:32 AM PANEL+MG No comment enter ed. Ordering Provid er: CODIE LEON Report Released Date/Time: May 08, 2022 05:27 PM Reporting Lab: [facility] [address] [facility] [address] Performing Lab: [facility] [address] [facility] [address] CREATININE 1.2 0.7-1.2 UREA NITROGEN 25 8-26 [...] 59 L >60 May 09, 2022 05:16 [facility] FINGERSTICK GLUCOSE Speci men Type: BLOOD AM Comment: Mark casillas Nurse Notified Ordering Provid er: CODIE LEON Report Released Date/Time: May 09, 2022 07:27 AM Reporting Lab: [facility] [address] Performing Lab: [facility] [address] FINGERSTICK GLUCOSE 295 H 70-100 May 08, 2022 09:32 PM [facility] EXTRA MINT TUBE Specim en Type: PLASMA No comment enter ed. Ordering Provid er: MD ESTEBAN Report Released Date/Time: May 08, 2022 09:32 PM Reporting Lab: [facility] [address] [facility] [address] Performing Lab: [facility] [address] [facility] [address] EXTRA MINT TUBE RECEIVED May 08, 2022 09:32 PM [facility] EXTRA PURPLE TUBE Spec imen Type: BLOOD No comment enter ed. Ordering Provid er: MD ESTEBAN Report Released Date/Time: May 08, 2022 09:32 PM Reporting Lab: [facility] [address] [facility] [address] Performing Lab: [facility] [address] [facility] [address] EXTRA PURPLE TUBE RECEIVED May 08, 2022 09:32 [facility] EXTRA GOLD GEL TUBE Speci men Type: SERUM PM No comment enter ed. Ordering Provid er: MD ESTEBAN Report Released Date/Time: May 08, 2022 09:32 PM Reporting Lab: [facility] [address] [facility] [address] Performing Lab: [facility] [address] [facility] [address] EXTRA GOLD GEL TUBE RECEIVED May 08, 2022 09:32 PM [facility] EXTRA BLUE TUBE Specim en Type: PLASMA No comment enter ed. Ordering Provid er: MD ESTEBAN Report Released Date/Time: May 08, 2022 09:32 PM Reporting Lab: [facility] [address] [facility] [address] Performing Lab: [facility] [address] [facility] [address] EXTRA BLUE TUBE RECEIVED May 08, 2022 09:32 PM [facility] EXTRA BRASWELL TUBE Specim en Type: PLASMA No comment enter ed. Ordering Provid er: MD ESTEBAN Report Released Date/Time: May 08, 2022 09:37 PM Reporting Lab: [facility] [address] [facility] [address] Performing Lab: [facility] [address] [facility] [address] EXTRA BRASWELL TUBE RECEIVED May 08, 2022 09:32 PM [facility] LACTIC ACID Specim en Type: PLASMA No comment enter ed. Ordering Provid er: OG DIAL Report Released Date/Time: May 08, 2022 09:49 PM Reporting Lab: [facility] [address] [facility] [address] Performing Lab: [facility] [address] [facility] [address] LACTIC ACID 2.5 H 0.5-2.2 May 08, 2022 09:32 PM [facility] BNP Specim en Type: PLASMA No comment enter ed. Ordering Provid er: OG DIAL Report Released Date/Time: May 08, 2022 09:50 PM Reporting Lab: [facility] [address] [facility] [address] Performing Lab: [facility] [address] [facility] [address] BNP 897 H <99 May 08, 2022 09:32 PM [facility] CBC Specim en Type: BLOOD No comment enter ed. Ordering Provid er: OG DIAL Report Released Date/Time: May 08, 2022 09:50 PM Reporting Lab: [facility] [address] Performing Lab: [facility] [address] WBC 18.54 H 4.0-11.0 RBC 3.68 L 4.6-6.2 HGB 11.5 L 13.5-17.9 HCT 35.1 L 41-54 MCV 95.4 80-100 MCH 31.3 27-33 MCHC 32.8 32.0-37.5 PLT 221 150-400 MPV 11.1 H 7.4-10.4 RDW 14.9 H 11.5-14.5 May 08, 2022 09:32 PM [facility] BLOOD GASES Specim en Type: VENOUS BLOOD Comment: O2 THE RAPY = 3L PM Ordering Provid er: OG DIAL Report Released Date/Time: May 08, 2022 09:50 PM Reporting Lab: [facility] [address] Performing Lab: [facility] [address] PH 7.36 7.33-7.43 PCO2 47 41-51 BICARBONATE 24.4 21.0-30.0 PO2 31 L 35-40 OXYGEN SATURATION 54.7 L 70.0-75.0 PH(TEMP CORRECTED) 7.37 7.33-7.43 PCO2(TEMP CORRECTED) 46 41-51 PO2(TEMP CORRECTED) 31 L 35-40 PATIENT TEMPERATURE 36.7 May 08, 2022 [facility] COMPREHENSIVE METABOLIC Spec imen Type: PLASMA 09:32 PM PANEL+MG No comment enter ed. Ordering Provid er: OG DIAL Report Released Date/Time: May 08, 2022 09:50 PM Reporting Lab: [facility] [address] Performing Lab: [facility] [address] CREATININE 1.3 H 0.7-1.2 UREA NITROGEN 26 [...] 54 L >60 May 08, 2022 08:27 [facility] FINGERSTICK GLUCOSE Speci men Type: BLOOD PM Comment: Mark casillas Nurse Notified Ordering Provid er: CODIE LEON Report Released Date/Time: May 08, 2022 08:55 PM Reporting Lab: [facility] [address] [facility] [address] Performing Lab: [facility] [address] [facility] [address] FINGERSTICK GLUCOSE 272 H 70-100 May 08, 2022 06:56 [facility] FINGERSTICK GLUCOSE Speci men Type: BLOOD PM Comment: Mark casillas Ordering Provid er: CODIE LEON Report Released Date/Time: May 08, 2022 07:08 PM Reporting Lab: [facility] [address] [facility] [address] Performing Lab: [facility] [address] [facility] [address] FINGERSTICK GLUCOSE 262 H 70-100 May 08, 2022 04:50 [facility] FINGERSTICK GLUCOSE Speci men Type: BLOOD PM Comment: Nurse Notified Ordering Provid er: CODIE LEON Report Released Date/Time: May 08, 2022 05:14 PM Reporting Lab: [facility] [address] [facility] [address] Performing Lab: [facility] [address] [facility] [address] FINGERSTICK GLUCOSE 330 H 70-100 May 08, 2022 11:21 [facility] FINGERSTICK GLUCOSE Speci men Type: BLOOD AM Comment: Mark casillas Nurse Notified Ordering Provid er: CODIE LEON Report Released Date/Time: May 08, 2022 11:51 AM Reporting Lab: [facility] [address] [facility] [address] Performing Lab: [facility] [address] [facility] [address] FINGERSTICK GLUCOSE 231 H 70-100 May 08, 2022 07:25 AM [facility] CBC & DIFF Specim en Type: BLOOD Comment: Automa nola Differential Performed Ordering Provid er: BETO AYALA Report Released Date/Time: May 07, 2022 12:28 PM Reporting Lab: [facility] [address] Performing Lab: [facility] [address] [facility] [address] WBC 16.29 H 4.0-11.0 RBC 3.38 L [...] GRAN 0.26 H 0-0.1 May 08, 2022 [facility] PROTHROMBIN TIME/INR Specime n Type: PLASMA 07:25 AM No comment enter ed. Ordering Provid er: BETO AYALA Report Released Date/Time: May 07, 2022 12:28 PM Reporting Lab: [facility] [address] [facility] [address] Performing Lab: [facility] [address] .INR 1.2 H 0.8-1.1 .PT 14.2 H 9.4-12.5 May 08, 2022 [facility] COMPREHENSIVE METABOLIC Spec imen Type: PLASMA 07:25 AM PANEL+MG No comment enter ed. Ordering Provid er: BETO AYALA Report Released Date/Time: May 07, 2022 12:28 PM Reporting Lab: [facility] [address] [facility] [address] Performing Lab: [facility] [address] CREATININE 1.1 0.7-1.2 UREA NITROGEN 27 H [...] EGFR(CKD-EPI) 65 >60 May 08, 2022 06:53 [facility] FINGERSTICK GLUCOSE Speci men Type: BLOOD AM Comment: Mark casillas Ordering Provid er: CODIE LEON Report Released Date/Time: May 08, 2022 07:18 AM Reporting Lab: [facility] [address] [facility] [address] Performing Lab: [facility] [address] [facility] [address] FINGERSTICK GLUCOSE 276 H 70-100 May 07, 2022 08:36 [facility] FINGERSTICK GLUCOSE Speci men Type: BLOOD PM Comment: Nurse Notified Ordering Provid er: CODIE LEON Report Released Date/Time: May 08, 2022 12:29 AM Reporting Lab: [facility] [address] [facility] [address] Performing Lab: [facility] [address] [facility] [address] FINGERSTICK GLUCOSE 282 H 70-100 May 07, 2022 07:04 PM [facility] LACTIC ACID Specim en Type: PLASMA No comment enter ed. Ordering Provid er: BETO AYALA Report Released Date/Time: May 07, 2022 06:28 PM Reporting Lab: [facility] [address] [facility] [address] Performing Lab: [facility] [address] [facility] [address] LACTIC ACID 2.0 0.5-2.2 May 07, 2022 04:46 [facility] FINGERSTICK GLUCOSE Speci men Type: BLOOD PM Comment: Nurse Notified Ordering Provid er: BETO AYALA Report Released Date/Time: May 07, 2022 05:00 PM Reporting Lab: [facility] [address] [facility] [address] Performing Lab: [facility] [address] [facility] [address] FINGERSTICK GLUCOSE 274 H 70-100 May 07, 2022 12:47 [facility] FINGERSTICK GLUCOSE Speci men Type: BLOOD PM Comment: Mark casillas Nurse Notified Ordering Provid er: BETO AYALA Report Released Date/Time: May 07, 2022 05:32 PM Reporting Lab: [facility] [address] [facility] [address] Performing Lab: [facility] [address] [facility] [address] FINGERSTICK GLUCOSE 309 H 70-100 May 07, 2022 06:35 [facility] FINGERSTICK GLUCOSE Speci men Type: BLOOD AM Comment: Mark casillas Nurse Notified Ordering Provid er: GAYLA DOMINGUEZ Report Released Date/Time: May 07, 2022 06:46 AM Reporting Lab: [facility] [address] [facility] [address] Performing Lab: [facility] [address] [facility] [address] FINGERSTICK GLUCOSE 352 H 70-100 May 07, 2022 06:15 AM [facility] ALBUMIN Specim en Type: PLASMA No comment enter ed. Ordering Provid er: GAYLA DOMINGUEZ Report Released Date/Time: May 06, 2022 06:33 PM Reporting Lab: [facility] [address] [facility] [address] Performing Lab: [facility] [address] [facility] [address] ALBUMIN 3.0 L 3.5-5.2 May 07, 2022 [facility] COMPREHENSIVE METABOLIC Spec imen Type: PLASMA 06:15 AM PANEL+MG No comment enter ed. Ordering Provid er: GAYLA DOMINGUEZ Report Released Date/Time: May 06, 2022 09:11 PM Reporting Lab: [facility] [address] [facility] [address] Performing Lab: [facility] [address] [facility] [address] CREATININE 1.2 0.7-1.2 UREA NITROGEN 25 8-26 [...] L >60 May 07, 2022 06:15 AM [facility] CBC & DIFF Specim en Type: BLOOD Comment: Manual Differential Performed Ordering Provid er: GAYLA DOMINGUEZ Report Released Date/Time: May 06, 2022 09:11 PM Reporting Lab: [facility] [address] [facility] [address] Performing Lab: [facility] [address] [facility] [address] WBC 20.25 H 4.0-11.0 RBC 3.54 L [...] NORMOCYTIC, NORMOCHROMIC May 07, 2022 12:19 AM [facility] LACTIC ACID Specim en Type: PLASMA No comment enter ed. Ordering Provid er: GAYLA DOMINGUEZ Report Released Date/Time: May 06, 2022 07:13 PM Reporting Lab: [facility] [address] [facility] [address] Performing Lab: [facility] [address] [facility] [address] LACTIC ACID 2.7 H 0.5-2.2 May 06, 2022 10:45 [facility] FINGERSTICK GLUCOSE Speci men Type: BLOOD PM Comment: Save R sonja Nurse Notified Ordering Provid er: GAYLA DOMINGUEZ Report Released Date/Time: May 07, 2022 12:08 AM Reporting Lab: [facility] [address] [facility] [address] Performing Lab: [facility] [address] [facility] [address] FINGERSTICK GLUCOSE 320 H 70-100 May 06, 2022 06:53 [facility] MRSA SURVL NARES Specimen Type: NARES PM DNA No comment enter ed. Ordering Provid er: GAYLA DOMINGUEZ Report Released Date/Time: May 06, 2022 06:33 PM Reporting Lab: [facility] [address] [facility] [address] Performing Lab: [facility] [address] [facility] [address] MRSA SURVL NARES DNA POSITIVE HH Negative May 06, 2022 06:51 PM [facility] LACTIC ACID Specim en Type: PLASMA No comment enter ed. Ordering Provid er: GAYLA DOMINGUEZ Report Released Date/Time: May 06, 2022 06:04 PM Reporting Lab: [facility] [address] [facility] [address] Performing Lab: [facility] [address] [facility] [address] LACTIC ACID 3.1 H 0.5-2.2 May 06, 2022 06:51 [facility] CARDIAC TROPONIN I Specim en Type: PLASMA PM No comment enter ed. Ordering Provid er: GAYLA DOMINGUEZ Report Released Date/Time: May 06, 2022 06:05 PM Reporting Lab: [facility] [address] [facility] [address] Performing Lab: [facility] [address] [facility] [address] CARDIAC TROPONIN I <0.028 <0.028 May 06, 2022 06:51 [facility] EXTRA GOLD GEL TUBE Speci men Type: SERUM PM No comment enter ed. Ordering Provid er: GAYLA DOMINGUEZ Report Released Date/Time: May 06, 2022 06:52 PM Reporting Lab: [facility] [address] [facility] [address] Performing Lab: [facility] [address] [facility] [address] EXTRA GOLD GEL TUBE RECEIVED May 06, 2022 06:51 [facility] C-REACTIVE PROTEIN Specim en Type: PLASMA PM No comment enter ed. Ordering Provid er: GAYLA DOMINGUEZ Report Released Date/Time: May 06, 2022 09:29 PM Reporting Lab: [facility] [address] [facility] [address] Performing Lab: [facility] [address] C-REACTIVE PROTEIN 392.40 H <5.00 May 06, 2022 10:51 AM [facility] URINALYSIS Specim en Type: URINE No comment enter ed. Ordering Provid er: MODESTA VILLANUEVA Report Released Date/Time: May 06, 2022 10:11 AM Reporting Lab: [facility] [address] Performing Lab: [facility] [address] URINE COLOR YELLOW SPECIFIC GRAVITY 1.020 1.003-1.035 [...] ESTERASE 500 NEGATIVE May 06, 2022 10:24 [facility] COVID-19 DIAGNOSTIC Speci men Type: NASOPHARYNGEAL AM PANEL (CEPHEID) Comment: Cephei jessica GeneXpert (618) Ordering Provid er: MODESTA VILLANUEVA Report Released Date/Time: May 06, 2022 10:11 AM Reporting Lab: [facility] [address] Performing Lab: [facility] [address] COVID-19 (CEPHEID) Not Detected Not Dete cted May 06, 2022 10:20 AM [facility] POC ABG/LACTATE Specim en Type: VENOUS BLOOD No comment enter ed. Ordering Provid er: MODESTA VILLANUEVA Report Released Date/Time: May 06, 2022 10:22 AM Reporting Lab: [facility] [address] Performing Lab: [facility] [address] POC PH 7.410 7.31-7.41 POC PCO2 28.9 L 35.00-45.00 POC PO2 82 H 35.0-40.0 POC TCO2 19 L 24.0-29.0 POC HCO3 18.3 L 23.0-28.0 POC BE ECT -6 L -2 POC SO2 96 H 70-75 POC LACTATE 3.62 0.90-1.70 May 06, 2022 10:00 AM [facility] PHOSPHORUS Specim en Type: PLASMA No comment enter ed. Ordering Provid er: MODESTA VILLANUEVA Report Released Date/Time: May 06, 2022 10:11 AM Reporting Lab: [facility] [address] [facility] [address] Performing Lab: [facility] [address] [facility] [address] PHOSPHORUS 2.5 2.3-4.7 May 06, 2022 10:00 [facility] ACT PART THROMBO TIME Spe cimen Type: PLASMA AM No comment enter ed. Ordering Provid er: MODESTA VILLANUEVA Report Released Date/Time: May 06, 2022 10:11 AM Reporting Lab: [facility] [address] [facility] [address] Performing Lab: [facility] [address] [facility] [address] APTT 37.8 H 25.1-36.5 May 06, 2022 10:00 [facility] PROTHROMBIN TIME/INR Spec imen Type: PLASMA AM No comment enter ed. Ordering Provid er: MODESTA VILLANUEVA Report Released Date/Time: May 06, 2022 10:11 AM Reporting Lab: [facility] [address] [facility] [address] Performing Lab: [facility] [address] [facility] [address] .INR 2.5 H 0.8-1.1 .PT 29.2 H 9.4-12.5 May 06, 2022 10:00 [facility] CARDIAC TROPONIN I Specim en Type: PLASMA AM Comment: Critic al Value Reported To: BROOKS COTE 05-06-2022 @1053 BY MBB. Critical value report confirmed. Ordering Provid er: MODESTA VILLANUEVA Report Released Date/Time: May 06, 2022 10:11 AM Reporting Lab: [facility] [address] [facility] [address] Performing Lab: [facility] [address] [facility] [address] CARDIAC TROPONIN I 0.035 HH <0.028 May 06, 2022 10:00 AM [facility] PROCALCITONIN Specim en Type: PLASMA No comment enter ed. Ordering Provid er: MODESTA VILLANUEVA Report Released Date/Time: May 06, 2022 10:11 AM Reporting Lab: [facility] [address] [facility] [address] Performing Lab: [facility] [address] [facility] [address] PROCALCITONIN 22.29 H <0.09 May 06, 2022 10:00 AM [facility] LIPASE Specim en Type: PLASMA No comment enter ed. Ordering Provid er: MODESTA VILLANUEVA Report Released Date/Time: May 06, 2022 10:11 AM Reporting Lab: [facility] [address] [facility] [address] Performing Lab: [facility] [address] [facility] [address] LIPASE <4 <60 May 06, 2022 [facility] COMPREHENSIVE METABOLIC Spec imen Type: PLASMA 10:00 AM PANEL+MG Comment: Manual Differential Performed Ordering Provid er: MODESTA VILLANUEVA Report Released Date/Time: May 06, 2022 10:11 AM Reporting Lab: [facility] [address] [facility] [address] Performing Lab: [facility] [address] [facility] [address] CREATININE 1.3 H 0.7-1.2 UREA NITROGEN 25 [...] 54 L >60 May 06, 2022 10:00 [facility] EXTRA GOLD GEL TUBE Speci men Type: SERUM AM No comment enter ed. Ordering Provid er: LINNEA RAND Report Released Date/Time: May 06, 2022 10:25 AM Reporting Lab: [facility] [address] [facility] [address] Performing Lab: [facility] [address] [facility] [address] EXTRA GOLD GEL TUBE RECEIVED May 06, 2022 10:00 AM [facility] CBC & DIFF Specim en Type: BLOOD Comment: Manual Differential Performed Ordering Provid er: MODESTA VILLANUEVA Report Released Date/Time: May 06, 2022 10:11 AM Reporting Lab: [facility] [address] [facility] [address] Performing Lab: [facility] [address] WBC 18.82 H 4.0-11.0 RBC 3.70 L [...] .RBC MORPHOLOGY PRESENT May 06, 2022 09:46 [facility] FINGERSTICK GLUCOSE Speci men Type: BLOOD AM Comment: Mark casillas Nurse Notified Ordering Provid er: MODESTA VILLANUEVA Report Released Date/Time: May 06, 2022 09:59 AM Reporting Lab: [facility] [address] Performing Lab: [facility] [address] FINGERSTICK GLUCOSE 369 H 70-100 Apr 30, 2022 [facility] BASIC METABOLIC Specimen Typ e: PLASMA 09:17 AM PANEL+MG No comment enter ed. Ordering Provid er: BILL ROONEY Report Released Date/Time: Apr 30, 2022 08:21 AM Reporting Lab: [facility] [address] Performing Lab: [facility] [address] CREATININE 1.2 0.7-1.2 UREA NITROGEN 26 8-26 GLUCOSE 140 H 70-100 SODIUM 138 136-145 POTASSIUM 3.8 3.5-5.1 CHLORIDE 107 98-107 CO2 20 L 22-29 CALCIUM 9.4 8.4-10.2 MAGNESIUM 1.7 1.6-2.6 ANION GAP 11 5-15 CREAT EGFR(CKD-EPI) 59 L >60 Apr 30, 2022 09:17 AM [facility] CBC Specim en Type: BLOOD No comment enter ed. Ordering Provid er: BILL ROONEY Report Released Date/Time: Apr 30, 2022 08:21 AM Reporting Lab: [facility] [address] [facility] [address] Performing Lab: [facility] [address] [facility] [address] WBC 10.40 4.0-11.0 RBC 3.96 L 4.6-6.2 [...] Source Pressure Rate Mass Index May 11 [facility] 2021 08:39 [facility] May 11 [facility] 2021 05:42 [facility] May 11 [facility] 2021 03:33 [facility] May 11 [facility] 2021 12:54 [facility] Social History: Smoking Status (Most current) [...] Comment Facility Feb 02, 2022 09:30 AM [place] NEVER USED [facility] Tobacco Use History This section includes a history of the smoking, or tobacco- related health factors, that were collected on or before the date of the Encounter. The data comes from the [place] facility where the Encounter took place. Date/Time Smoking Status/Tobacco Use Comment [facility] Mar 22, 2021 07:45 AM [place] US[place] [facility] Oct 02, 2019 10:02 AM [place]ACCO NEVER USED [place] [facility] May 21, 2018 09:05 AM [place] NEVER USED [place] [facility] December 25, 2017 06:14 PM [...] Source Apr 18, 2018 ADVANCE DIRECTIVE JOVONLARISSA [facility] Apr 18, 2018 ADVANCE DIRECTIVE DISCUSSION LARISSA SIGALA [facility] [...] data comes from all [place] treatment facilities. Date/Time Radiology Report Provider Source May 11, 2022 09:46 CHEST 1 VIEW: SONJA OVALLES [facility] AM NUNULUISANA H [id number] -1935 M Exm Date: MAY 11, 2022@09:46 Req Phys: CODIE LEON Loc: OP Unknown /09-25-2022@05:05 Img Loc: MAIN X-RAY Service: [facility] OFFICE (Case [id number] COMPLETE) CHEST 1 VIEW (RAD Detailed) CPT:99330 Proc Modifiers : PORTABLE EXAM Reason for [...] 11, 2022 Date Verified: MAY 11, 2022 Loading Supervisor E-Sig:/ES/SONJA OVALLES MD Report: CHEST 1 VIEW [...] Primary Interpreting Staff: SONJA OVALLES MD, RADIOLOGIST (Loading Supervisor) /CDC May 10, 2022 03:49 CT HEAD (P): RADIOLOGY,OUTSIDE [facility] PM LUISANA EDDY [id number] -1935 M SERVICE Exm Date: MAY 10, 2022@15:49 Req Phys: CODIE LEON Loc: OP Unknown /05-13-2022@05:05 Img Loc: CT IMAGING Service: [facility] OFFICE (Case [id number] COMPLETE) CT HEAD/BRAIN W/O CONTRAST (CT Detailed) CPT:74963 Reason for Study: CHANGE IN MENTAL STATUS Clinical History: CHANGE IN MENTAL STATUS. ORDER ADMINISTRATIVELY ENTERED FOLLOWING SYSTEM OUTAGE. Report Status: Verified Date Reported: MAY 10, 2022 Date Verified: MAY 10, 2022 Loading Supervisor E-Sig: Report: CT HEAD/BRAIN W/O CONTRAST [PRINTSET] HISTORY: Change in mental status. COMPARISON: CT from 05/07/2022. TECHNIQUE: Contiguous axial CT images from the level of the skull base through the skull apex, with coronal and s agittal reformats, performed at the local [place] facility. 321 images were received by the [place] National Teleradiology Program (NTP) for interpretation. RADIATION [...] study. READING PHYSICIAN: Akash Mccoy M.D. -[phone] 05/10/2022 17:35 PDT [facility] National Teleradiology Program [phone] (For Medical Practitioner Use Only ) Attention Patients / Veterans: If you have ques tions or concerns about these test results, please contact your [facility] provider or primary care team. Primary Interpreting Staff: RADIOLOGY,OUTSIDE SERVICE, Staff Physician / May 08, 2022 07:45 CT T-SPINE (P): RADIOLOGY,OUTSIDE [facility] PM LUISANA EDDY [id number] -1935 M SERVICE Exm Date: MAY 08, 2022@19:45 Req Phys: MALINICODIE GOOD Camron Cornejo Loc: OP Unknown /05-13-2022@05:05 Img Loc: CT IMAGING Service: PRIMARY CARE - MED OFFICE (Case [id number] COMPLETE) CT SPINE THORACIC W/O CONTR AST (CT Detailed) CPT:73690 Reason for Study: mrsa bacteremia, spinal surge ry - r/o abscess or discitis Clinical History: [place] IS NOT under investigation for COVID-19 or is COVID-19 negative Defer to radiologist for final CT protocol. Responsible provider name and phone number to n otify for critical findings if other than user placing the order a nd pager listed below: User placing orders pager: [phone] LAST 3: Collection DT Specimen Test Name [...] GFR (eGF 44 L Ref: >=60 Allergies: ([place] only) SIMVASTATIN (Feb 29, 2004) CEPHALEXIN (Mar 01, 2004) Report Status: Verified Date Reported: MAY 08, 2022 Date Verified: MAY 08, 2022 Loading Supervisor E-Sig: Report: CT SPINE THORACIC W/O CONTRAST [PRINTSET] HISTORY:MRSA bacteremia NUMBER OF IMAGES:1151 COMPARISON: Correlation with images from recent CT abdomen and pelvis May 06, 2022 TECHNIQUE: A non contrast CT of the thoracic sp ine was performed at the local [place]. Images were subsequently sent to [facility] [...] thoracic level. READING PHYSICIAN: Luisana Webb MD -[phone] 05/08/2022 19:20 PDT [facility] National Teleradiology Program [phone] (For Medical Practitioner Use Only ) Attention Patients / Veterans: If you have ques tions or concerns about these test results, please contact your [facility] provider or primary care team. Primary Interpreting Staff: RADIOLOGY,OUTSIDE SERVICE, Staff Physician / May 08, 2022 04:48 CHEST 1 VIEW: RADIOLOGY,OUTSIDE [facility] PM LUISANA EDDY [id number] -1935 M SERVICE Exm Date: MAY 08, 2022@16:48 Req Phys: CODIE LEON Loc: OP Unknown /05-13-2022@05:05 Img Loc: MAIN X-RAY Service: PRIMARY CARE - MED OFFICE (Case [id number] COMPLETE) CHEST 1 VIEW (RAD Detailed) CPT:89835 Proc Modifiers : PORTABLE EXAM Reason for Study: dyspnea Clinical History: [place] IS NOT under investigation for COVID-19 or is COVID-19 negative acute worsening of dyspnea Responsible provider name and phone number to notify for critical findings if other than user placing the order and pager listed below: User placing orders pager: [phone] malini cell [phone] LAST CREATININE 1.1 (05/08/22) Report Status: Verified Date Reported: MAY 08, 2022 Date Verified: MAY 08, 2022 Loading Supervisor E-Sig: Report: CHEST 1 VIEW HISTORY: dyspnea COMPARISON: 05/06/2022 TECHNIQUE: Frontal view(s) of the chest, submit nola to the [place] National Teleradiology Program (NTP) for interp retation. FINDINGS: Reduced lung volumes. Progressive cardiomegaly, and vascular congestion as well as diffuse interstitial prom inence with probable small effusions. Impression: Expiratory exam with findings of CHF and mild e santa READING PHYSICIAN: Nghia Menjivar M.D. -[id number] 10 05/08/2022 18:57 EDT [facility] National Teleradiology Program [phone] (For Medical Practitioner Use Only ) Attention Patients / Veterans: If you have ques tions or concerns about these test results, please contact your o rdering provider or primary care team. Primary Interpreting Staff: RADIOLOGY,OUTSIDE SERVICE, Staff Physician / May 07, 2022 10:29 CT HEAD (P): SHANI POLANCO [facility] AM LUISANA EDDY [id number] -1935 M Exm Date: MAY 07, 2022@10:29 Req Phys: BETO AYALA Loc: OP Unknown/0 05-13-2022@05:05 Img Loc: CT IMAGING Service: PRIMARY CARE - MED OFFICE (Case [id number] COMPLETE) CT HEAD/BRAIN W/O CONTRAST ( CT Detailed) CPT:54290 Reason for Study: seizure noted at [facility] Clinical History: [place] IS NOT under investigation for COVID-19 or is COVID-19 negative Defer to radiologist for final CT protocol. Responsible provider name and phone number to n otify for critical findings if other than user placing the order a nd pager listed below: User placing orders pager: [phone] LAST 3: Collection DT Specimen Test Name [...] GFR (eGF 44 L Ref: >=60 Allergies: ([place] only) SIMVASTATIN (Feb 29, 2004) CEPHALEXIN (Mar 01, 2004) Report Status: Verified Date Reported: MAY 07, 2022 Date Verified: MAY 07, 2022 Loading Supervisor E-Sig:/ES/SHANI POLANCO MD Report: EXAM: CT HEAD/BRAIN [...] lis nola below: User placing orders pager: [phone] LAST 3: Collecti on DT Specimen Test [...] Primary Interpreting Staff: SHANI POLANCO MD, RADIOLOGIST (Loading Supervisor) /Javed May 06, 2022 11:40 CHEST 1 VIEW: RADIOLOGY,OUTSIDE [facility] AM LUISANA EDDY [id number] -1935 M SERVICE Exm Date: MAY 06, 2022@11:40 Req Phys: MODESTA VILLANUEVA Loc: [facility] EMERGENCY DEPT WALK-IN (Re Img Loc: MAIN X-RAY Service: Unknown (Case [id number] COMPLETE) CHEST 1 VIEW (RAD Detailed) C PT:46655 Proc Modifiers : PORTABLE EXAM Reason for [...] pager listed below: User placing orders pager: [phone] LAST CREATININE 1.2 (04/30/22) Report Status: Verified Date Reported: MAY 06, 2022 Date Verified: MAY 06, 2022 Loading Supervisor E-Sig: Report: Technique: Frontal chest. No comparison Impression: Cardiac silhouette is mildly enlarged. There is mild pulmonary venous congestion. No definite pleural effusion . No pneumothorax seen. READING PHYSICIAN: Vern Donnelly M.D. -[id number] 07 05/06/2022 13:26 EDT [facility] National Teleradiology Program [phone] (For Medical Practitioner Use Only ) Attention Patients / Veterans: If you have ques tions or concerns about these test results, please contact your o rdering provider or primary care team. Primary Interpreting Staff: RADIOLOGY,OUTSIDE SERVICE, Staff Physician / May 06, 2022 10:36 CT (AP) ABDOMEN/PELVIS (P): RADIOLOGY,OUTSIDE [facility] LUISANA EDDY [id number] -1935 M SERVICE Exm Date: MAY 06, 2022@10:36 Req Phys: MODESTA VILLANUEVA Loc: [facility] EMERGENCY DEPT WALK-IN (Re Img Loc: CT IMAGING Service: Unknown (Case [id number] COMPLETE) CT (AP) ABDOMEN/PELVIS W CONT RAST(CT Detailed) CPT:15656 Reason for Study: fever, back pain Clinical History: fever, back pain, ecchymosis left low back consideration for intra-abdominal process, aort ic changes, LS spine trauma, kidney inflammation, GI or obs truction [place] IS under investigation (PUI) for COVID- 19 or is COVID-19+ Defer to radiologist for final CT protocol. Please enter pertinent clinical history on the next page. Responsible provider name and phone number to n otify for critical findings if other than user placing the order a nd pager listed below: User placing orders pager: [phone] LAST 3: Collection DT Specimen Test Name [...] ESTIMATED GFR(eGF 44 L Ref: >=60 Allergies: ([place] only) SIMVASTATIN (Feb 29, 2004) CEPHALEXIN (Mar 01, 2004) To see allergies from all [facility] locations click Re ports tab>Remote Data>All Available Sites>Clinical Reports>Aller gies. Report Status: Verified Date Reported: MAY 06, 2022 Date Verified: MAY 06, 2022 Loading Supervisor E-Sig: Report: Exam: CT (AP) ABDOMEN/PELVIS W CONTRAST [PRINTS ET] Clinical History: fever, back pain Number of images: 918 Comparison: No priors available Technique: The study was protocoled and supervi sed at the local [place] facility. CT of the abdomen and pelvis was performed afte r the uneventful administration of iodinated contrast. Images we re received by the [place] National Teleradiology Program (NTP) for interpretation. Total [...] findings, above. READING PHYSICIAN: Eduin Donaldson M.D. -[phone] 05/06/2022 12:48 [facility] [employer] Teleradiology Program [phone] (For Medical Practitioner Use Only ) Attention Patients / Veterans: If you have ques tions or concerns about these test results, please contact your [facility] provider or primary care team. Primary Interpreting Staff: RADIOLOGY,OUTSIDE SERVICE, Staff Physician / May 06, 2022 10:35 CT HEAD/BRAIN W/O CONTRAST: RADIOLOGY,OUTSIDE [facility] LUISANA EDDY [id number] -1935 M SERVICE Exm Date: MAY 06, 2022@10:35 Req Phys: MODESTA VILLANUEVA Loc: [facility] EMERGENCY DEPT WALK-IN (Re Img Loc: CT IMAGING Service: Unknown (Case 64 COMPLETE) CT HEAD/BRAIN W/O CONTRAST (C T Detailed) CPT:74093 Reason for Study: falls, blood thinner, AMS, se izure Clinical History: falls, blood thinner, AMS, seizure IS under investigation (PUI) for COVID- 19 or is COVID-19+ Defer to radiologist for final CT protocol. Responsible provider name and phone number to n otify for critical findings if other than user placing the order a nd pager listed below: User placing orders pager: [phone] LAST 3: Collection DT Specimen Test Name [...] ESTIMATED GFR(eGF 44 L Ref: >=60 Allergies: ([place] only) SIMVASTATIN (Feb 29, 2004) CEPHALEXIN (Mar 01, 2004) To see allergies from all [place] locations click Re ports tab>Remote Data>All Available Sites>Clinical Reports>Aller gies. Report Status: Verified Date Reported: MAY 06, 2022 Date Verified: MAY 06, 2022 Loading Supervisor E-Sig: Report: CT HEAD/BRAIN W/O CONTRAST Clinical History: falls, blood thinner, AMS, se izure Number of Images: 532 Comparison: 03/12/2022 Technique: The study was protocoled [place] [facility] [facility] [place] [facility] [place] of the head without contrast. I mages were subsequently received by the [place] National Telera diology Program (NTP) for interpretation. [...] T findings. READING PHYSICIAN: Eduin Donaldson M.D. -[id number] [phone] 05/06/2022 12:30 [facility] National Teleradiology Program [phone] (For Medical Practitioner Use Only ) Attention Patients / Veterans: If you have ques tions or concerns about these test results, please contact your [facility] provider or primary care team. Primary Interpreting Staff: RADIOLOGY,OUTSIDE SERVICE, Staff Physician / May 06, 2022 10:35 CT CERVICAL SPINE W/O CONTRAST: RADIOLOGY,OUT SIDE [facility] AM LUISANA EDDY [id number] -1935 M SERVICE Exm Date: MAY 06, 2022@10:35 Req Phys: MODESTA VILLANUEVA Loc: [facility] EMERGENCY DEPT WALK-IN (Re Img Loc: CT IMAGING Service: Unknown (Case [id number] COMPLETE) CT CERVICAL SPINE W/O CONTRAS T (CT Detailed) CPT:18359 Reason for Study: falls, blood thinner, AMS, se izure Clinical History: falls, blood thinner, AMS, seizure IS under investigation (PUI) for COVID- 19 or is COVID-19+ Defer to radiologist for final CT protocol. Responsible provider name and phone number to n otify for critical findings if other than user placing the order a nd pager listed below: User placing orders pager: [phone] LAST 3: Collection DT Specimen Test Name [...] ESTIMATED GFR(eGF 44 L Ref: >=60 Allergies: ([place] only) SIMVASTATIN (Feb 29, 2004) CEPHALEXIN (Mar 01, 2004) To see allergies from all [place] locations click Re ports tab>Remote Data>All Available Sites>Clinical Reports>Aller gies. Report Status: Verified Date Reported: MAY 06, 2022 Date Verified: MAY 06, 2022 Loading Supervisor E-Sig: Report: CT CERVICAL SPINE W/O CONTRAST HISTORY:falls, blood thinner, AMS, seizure NUMBER OF IMAGES:[id number] COMPARISON: None available. TECHNIQUE: A non contrast CT of the cervical sp ine was performed at the local [place]. Images were subsequently sent to [facility] [...] tissues: 11 mm subcutaneous cyst in the [facility] upper neck. Impression: -Motion artifact limits the exam. -Given this limitation, no acute osseous abnorm ality. -Moderate multilevel degenerative change throug hout the cervical spine. -Ancillary findings, above. READING PHYSICIAN: Eduin Donaldson M.D. [phone] 05/06/2022 12:[address] [facility] National Teleradiology Program [phone] (For Medical Practitioner Use Only ) Attention Patients / Veterans: If you have ques tions or concerns about these test results, please contact your [facility] provider or primary care team. Primary Interpreting [...] data comes from all [place] treatment facilities. Date/Time Pathology Report Provider Source May 09, 2022 05:30 AM LR MICROBIOLOGY REPORT: [facility] [place] [facility] Reporting Lab: [facility] [CLIA# [id number]] [place] [address] Accession [UID]: [id number] [[id number]] Receiv ed: May 09, 2022@01:35 Collection sample: BLOOD Collection date: Apr 05:30 Provider: CODIE LEON Comment on specimen: LEFT ARM, RECEIVED 2 BLOOD CULTURE BOTTLES Test(s) ordered: CULTURE & SUSCEPTIBILITY...... 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 R TRIMETH/SULFA................. S TETRACYCLINE.................. S CLINDAMYCIN................... S RIFAMPIN...................... S VANCOMYCIN.................... S Bacteriology Remark(s): VANCOMYCIN SHAMIKA: <=0.5 ug/mL THIS REPORT IS FINAL =--=--=--=--=--=--=--=--=--=--=--=--=--= --=--=--=--=--=--=--=--=--=--=--=--=-- Performing Laboratory: Bacteriology Report Performed By: [facility] [CLIA# [id number]] [place] [address] May 08, 2022 03:23 PM LR MICROBIOLOGY REPORT: [facility] Reporting Lab: [facility] [CLIA# [id number]] [place] [address] Accession [UID]: [id number] [[id number]] Receiv ed: May 08, 2022@15:41 Collection sample: BLOOD Collection date: Apr 15:23 Provider: CODIE LEON Comment on specimen: LEFT ARM, RECEIVED 2 BLOOD CULTURE BOTTLES Test(s) ordered: CULTURE & SUSCEPTIBILITY...... completed: May 10, 2022 * BACTERIOLOGY FINAL REPORT => May 10, 2022 16:3 1 TECH CODE: [id number] CULTURE RESULTS: GROWTH SAME THAT OF ANOTHER CULTURE Comment: FOR SUSCEPTIBILITY REPORT SEE PREVIOUS POSITIVE SAME MB 22 [id number] ( 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 from Anaerobic bottle ) ( Recovered from Aerobic bottle ) Bacteriology Remark(s): THIS REPORT IS FINAL =--=--=--=--=--=--=--=--=--=--=--=--=--= --=--=--=--=--=--=--=--=--=--=--=--=-- Performing Laboratory: Bacteriology Report Performed By: [facility] [CLIA# [id number]] [place] [address] May 08, 2022 03:21 PM LR MICROBIOLOGY REPORT: [facility] Reporting Lab: [facility] [CLIA# [id number]] [place] [address] Accession [UID]: [id number] [[id number]] Receiv ed: May 08, 2022@15:40 Collection sample: BLOOD Collection date: Apr 15:21 Provider: CODIE LEON Comment on specimen: RT ARM, RECEIVED 2 BLOOD CU LTURE BOTTLES Test(s) ordered: CULTURE & SUSCEPTIBILITY...... completed: May 10, 2022 * BACTERIOLOGY FINAL REPORT => May 10, 2022 16:3 1 TECH CODE: [id number] CULTURE RESULTS: GROWTH SAME THAT OF ANOTHER CULTURE Comment: FOR SUSCEPTIBILITY REPORT SEE PREVIOUS POSITIVE SAME MB 22 [id number] ( 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 from Anaerobic bottle ) ( Recovered from Aerobic bottle ) Bacteriology Remark(s): THIS REPORT IS FINAL =--=--=--=--=--=--=--=--=--=--=--=--=--= --=--=--=--=--=--=--=--=--=--=--=--=-- Performing Laboratory: Bacteriology Report Performed By: [facility] [CLIA# [id number]] [place] [address] May 07, 2022 05:30 AM LR MICROBIOLOGY REPORT: [facility] Reporting Lab: [facility] [CLIA# [id number]] [place] [address] Accession [UID]: [id number] [[id number]] Receiv ed: May 07, 2022@01:35 Collection sample: [...] REPORT SEE PREVIOUS POSITIVE SAME MB 22 [id number] ( 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 from Aerobic bottle ) ( Recovered from Anaerobic bottle ) Bacteriology Remark(s): THIS REPORT IS FINAL =--=--=--=--=--=--=--=--=--=--=--=--=--= --=--=--=--=--=--=--=--=--=--=--=--=-- Performing Laboratory: Bacteriology Report Performed By: [facility] [CLIA# [id number]] [place] [address] May 06, 2022 10:51 AM LR MICROBIOLOGY REPORT: [facility] Reporting Lab: [facility] [CLIA# [id number] 147] [place] [address] Accession [UID]: [id number] [[id number]] Receiv ed: May 06, 2022@11:32 Collection sample: [...] --=--=--=--=--=--=--=--=--=--=--=--=-- Performing Laboratory: Bacteriology Report Performed By: [facility] [CLIA# [id number]] [place] [address] May 06, 2022 10:34 AM LR MICROBIOLOGY REPORT: [facility] Reporting Lab: [facility] [CLIA# [id number]] [place] [address] Accession [UID]: [id number] [[id number]] Receiv ed: May 06, 2022@10:51 Collection sample: BLOOD Collection date: Apr 10:34 Provider: MODESTA VILLANUEVA Comment on specimen: RECEIVED 2 BLOOD CULTURE [facility] Test(s) ordered: CULTURE & SUSCEPTIBILITY...... completed: May 07, 2022 * BACTERIOLOGY FINAL REPORT => May 08, 2022 08:3 0 TECH CODE: [id number] CULTURE RESULTS: STAPHYLOCOCCUS AUREUS METHICILL IN RESISTANT [...] --=--=--=--=--=--=--=--=--=--=--=--=-- Performing Laboratory: Bacteriology Report Performed By: [facility] [CLIA# [id number]] [place] [address] May 06, 2022 10:00 AM LR MICROBIOLOGY REPORT: [facility] Reporting Lab: [facility] [CLIA# [id number] 147] [place] [address] Accession [UID]: [id number] [[id number]] Receiv ed: May 06, 2022@10:41 Collection sample: [...] SEE PREVIOUS POSITIVE SAME LUIS MIGUEL 22 [id number] ( 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 from Anaerobic bottle ) ( Recovered from Aerobic bottle ) Bacteriology Remark(s): THIS REPORT IS FINAL =--=--=--=--=--=--=--=--=--=--=--=--=--= --=--=--=--=--=--=--=--=--=--=--=--=-- Performing Laboratory: Bacteriology Report Performed By: [facility] [CLIA# [id number]] [place] [address] Encounter Notes: All associated encounter notes This section contains the clinical notes associated to the Encounter. Date/Time Encounter Note(s) Provider Source May 11, 2022 01:00 AM CRITICAL CARE UNIT NOTE: FELECIA GU [facility] LOCAL TITLE: ICCA INPATIENT FLOWSHEET STANDARD TITLE: CRITICAL CARE UNIT NOTE DATE OF NOTE: MAY 11, 2022@01:00 ENTRY DATE: MAY 14, 2022@10:46:11 AUTHOR: FELECIA GU EXP COSIGNER: URGENCY: STATUS: COMPLETED This is a place chan only. Please see [employer] to view document. /es/ [employer] ICU DOCUMENT IMPORT Signed: 05/14/2022 10:46 May 11, 2022 01:00 AM CRITICAL CARE UNIT NOTE: BRITTANIECHELASYBIL Shalonda [facility] LOCAL TITLE: ICCA RESPIRATORY THERAPY FLOWSHEET STANDARD TITLE: CRITICAL CARE UNIT NOTE DATE OF NOTE: MAY 11, 2022@01:00 ENTRY DATE: MAY 14, 2022@11:35:11 AUTHOR: OBDULIA GU-ARKirstel EXP COSIGNER: URGENCY: STATUS: COMPLETED This is a place chan only. Please see [employer] to view document. /es/ [facility] ICU DOCUMENT IMPORT Signed: 05/14/2022 11:35
--- OUTSIDE RECORDS SUMMARY | 2022-05-15 09:25 | XMS_ITS | Encounter Summary ---
:1935 Author Organization [facility] rs Address [address] [place] [address] Support Name Relationship Address Phone WADE LORENZO Unavailable [phone] [place] [address] WADE LORENZO Unavailable [address] [place] [address] ARACELI MARSHALL Unavailable [address] [place] [address] ARACELI MARSHALL Unavailable [address] [place] [address] Insurance Providers: All historical and current Section Date Range: From patient's date of to the date document was created.This section includes the names of all active insurance providers for the patient. Insurance Type of Plan Start of End of Group Member [facility] Coverage Name Policy Policy Number ID Provider's Bales's Relationship Coverage Coverage Telephone Name to Policy Number Bales [place] M[place] Aug 19, [id number] Kristel [facility] (WNR) ADVANTAGE (WNR) 2016 8 [id number] [phone] [facility] 1 [place] MED[place] M[place] Aug 19, [id number] Kristel [facility] (WNR) ADVANTAGE (WNR) 2016 8 [id number] [phone] [facility] 1 Selected Encounter This section includes the information on record at DC for the Encounter. Date/Time Encounter Type Encounter Reason Provider Source Description May 02, 2022 [facility] ICD-10-CM Z51.81 POEPMELY, KASSIDY 07:45 AM ASSMT&MGMT 5-10 Encounter for ER L therapeutic drug level monitoring with Provider Comments: Encounter for therapeutic drug level monitoring IHE Encounter Template Text not used by DC Assessments - Encounter Diagnoses This section includes the primary and secondary diagnoses documented for the Encounter. 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 This section includes future appointments and future orders which are active, pending orscheduled.Future Appointments This section includes appointments that were scheduled to occur 6 months from the date of the Encounter, up to a maximum of 20 appointments. The data comes from all DC treatment [facility]. Appointment Date/Time Appointment Type Appointment Facili ty Name May 06, 2022 09:40 AM AMBULATORY - MEDICINE [facility] May 11, 2022 06:15 PM AMBULATORY - NONE [facility] Jul 23, 2022 08:00 AM AMBULATORY - NEUROLOGY [facility] Active, Pending, and Scheduled Orders This section includes a listing of several types of active, pending, and scheduled orders, including clinic medications orders, diagnostic test orders, procedure orders and consult orders; where the start date of the order is 45 days before the date of the Encounter or 45 days after the date of the Encounter. The data comes from all [place] treatment [facility]. Test Date/Time Test Type Test Details Facility Name Apr 30, 2022 08:21 Laboratory - Chemistry URINALYSIS URINE WC ON CE [facility] AM Order Apr 30, 2022 08:21 Laboratory - CULTURE & SUSCEPTIBILITY [facility] AM Microbiology Order URINE May 06, 2022 12:00 Laboratory - Blood ABO/RH - LAB BLOOD [facility] AM Bank Order May 06, 2022 10:11 Laboratory - Blood TYPE & SCREEN - LAB [facility]Robby PAYTONWanda [facility] AM Bank Order BLOOD May 06, 2022 10:27 Pharmacy - [facility] AM Medication Order May 06, 2022 10:28 Pharmacy [facility] AM Infusion Order May 06, 2022 10:34 [facility] AM Infusion Order May 06, 2022 10:41 [facility] AM Infusion Order May 06, 2022 12:15 [facility] PM Medication Order May 06, 2022 01:31 [facility] PM Medication Order May 06, 2022 04:49 [facility] PM Medication Order May 07, 2022 01:00 Laboratory - CULTURE & SUSCEPTIBILITY [facility] PM Microbiology Order BLOOD WC ONCE May 11, 2022 09:07 Laboratory - CULTURE & SUSCEPTIBILITY [facility] AM Microbiology Order BLOOD WC May 11, 2022 09:07 Laboratory - CULTURE & [facility]USCEPTIBILITY [facility] AM Microbiology Order BLOOD WC May 11, 2022 09:38 Laboratory - Chemistry EOSINOPHIL SMEAR,URINE [facility] AM Order URINE WC ONCE May 11, 2022 09:38 Laboratory - Chemistry URINALYSIS URINE WC ON CE [facility] AM Order May 11, 2022 09:38 Laboratory - Chemistry FENA URINE WC ONCE [facility] AM Order Lab Results: +/- 30 days of the encounter This section includes the Chemistry and Hematology Lab Results on record with DC for the patient. Radiology Reports and Pathology Reports are provided separately, in subsequent sections.Lab Results This section contains the Chemistry/Hematology Results that were resulted 30 days before or 30 daysafter the date of the Encounter. Date/Time Source Result Type Result - Unit Interpretation Reference Range Comment May 11, 2022 11:13 [facility] FINGERSTICK GLUCOSE Speci men Type: BLOOD AM Comment: Mark casillas Nurse Notified Ordering Provid er: CODIE LEON Report Released Date/Time: May 11, 2022 11:53 AM Reporting Lab: [facility] [address] [facility] [address] Performing Lab: [facility] [address] [facility] [address] FINGERSTICK GLUCOSE 367 H 70-100 May 11, 2022 07:05 AM [facility] CK,TOTAL Specim en Type: PLASMA No comment enter ed. Ordering Provid er: CODIE LEON Report Released Date/Time: May 11, 2022 09:08 AM Reporting Lab: [facility] [address] [facility] [address] Performing Lab: [facility] [place] [address] CK,TOTAL 16 L 39-208 May 11, 2022 07:05 AM [facility] CBC Specim en Type: BLOOD No comment enter ed. Ordering Provid er: OG DIAL Report Released Date/Time: May 11, 2022 04:46 AM Reporting Lab: [facility] [address] [facility] [address] [facility] [address] WBC 15.93 H 4.0-11.0 RBC 3.60 L 4.6-6.2 HGB 11.2 L 13.5-17.9 HCT 35.3 L 41-54 MCV 98.1 80-100 MCH 31.1 27-33 MCHC 31.7 L 32.0-37.5 PLT 231 150-400 MPV 11.2 H 7.4-10.4 RDW 15.2 H 11.5-14.5 May 11, 2022 07:05 AM [facility] BNP Specim en Type: PLASMA No comment enter ed. Ordering Provid er: CODIE LEON Report Released Date/Time: May 11, 2022 09:15 AM Reporting Lab: [facility] [address] [facility] [address] Performing Lab: [facility] [address] BNP 59 <99 May 11, 2022 07:05 [facility] BASIC METABOLIC Specimen Type: PLASMA AM PANEL+MG No comment enter ed. Ordering Provid er: OG DIAL Report Released Date/Time: May 11, 2022 04:46 AM Reporting Lab: [facility] [address] [facility] [address] Performing Lab: [facility] [address] [facility] [address] CREATININE 1.6 H 0.7-1.2 UREA NITROGEN 28 H 8-26 GLUCOSE 396 H 70-100 SODIUM 150 H 136-145 POTASSIUM 3.7 3.5-5.1 CHLORIDE 120 H 98-107 CO2 23 22-29 CALCIUM 8.4 8.4-10.2 MAGNESIUM 2.1 1.6-2.6 ANION GAP 7 5-15 CREAT EGFR(CKD-EPI) 42 L >60 May 11, 2022 07:05 [facility] LIVER FUNCTION TESTS Spec imen Type: PLASMA AM No comment enter ed. Ordering Provid er: CODIE LEON Report Released Date/Time: May 11, 2022 09:08 AM Reporting Lab: [facility] [address] [facility] [address] Performing Lab: [facility] [address] [facility] [address] BILIRUBIN, TOTAL 1.6 H 0.2-1.2 ALKALINE PHOSPHATASE 102 40-150 ALT/SGPT 42 <55 AST/SGOT 30 <34 GAMMA GTP 52 <64 DIR. BILIRUBIN 1.2 H <0.5 May 11, 2022 06:14 [facility] FINGERSTICK GLUCOSE Speci men Type: BLOOD AM Comment: Mark casillas Nurse Notified Ordering Provid er: CODIE LEON Report Released Date/Time: May 11, 2022 06:42 AM Reporting Lab: [facility] [address] [facility] [address] Performing Lab: [facility] [address] [facility] [address] FINGERSTICK GLUCOSE 345 H 70-100 May 11, 2022 02:24 [facility] FINGERSTICK GLUCOSE Speci men Type: BLOOD AM Comment: Mark casillas Ordering Provid er: CODIE LEON Report Released Date/Time: May 11, 2022 02:44 AM Reporting Lab: [facility] [address] [facility] [address] Performing Lab: [facility] [address] [facility] [address] FINGERSTICK GLUCOSE 375 H 70-100 May 10, 2022 08:38 [facility] FINGERSTICK GLUCOSE Speci men Type: BLOOD PM Comment: Mark casillas Ordering Provid er: CODIE LEON Report Released Date/Time: May 11, 2022 12:31 AM Reporting Lab: [facility] [address] [facility] [address] Performing Lab: [facility] [address] [facility] [address] FINGERSTICK GLUCOSE 346 H 70-100 May 10, 2022 05:05 [facility] FINGERSTICK GLUCOSE Speci men Type: BLOOD PM Comment: Mark casillas Nurse Notified Ordering Provid er: CODIE LEON Report Released Date/Time: May 10, 2022 11:50 PM Reporting Lab: [facility] [address] [facility] [address] Performing Lab: [facility] [address] [facility] [address] FINGERSTICK GLUCOSE 245 H 70-100 May 10, 2022 02:00 [facility] VANCOMYCIN (TROUGH) Speci men Type: PLASMA PM No comment enter ed. Ordering Provid er: CODIE LEON Report Released Date/Time: May 11, 2022 01:34 AM Reporting Lab: [facility] [address] Performing Lab: [facility] [address] [facility] [address] VANCOMYCIN (TROUGH) 31.8 H 10.0-15.0 May 10, 2022 [facility] BASIC METABOLIC Specimen Typ e: PLASMA 02:00 PM PANEL+MG No comment enter ed. Ordering Provid er: CODIE LEON Report Released Date/Time: May 11, 2022 01:34 AM Reporting Lab: [facility] [address] [facility] [address] Performing Lab: [facility] [address] CREATININE 1.1 .7-1.2 UREA NITROGEN 22 8-26 GLUCOSE 279 H 70-100 SODIUM 150 H 136-145 POTASSIUM 3.2 L 3.5-5.1 CHLORIDE 116 H 98-107 CO2 23 22-29 CALCIUM 8.5 8.4-10.2 MAGNESIUM 2.0 1.6-2.6 ANION GAP 11 5-15 CREAT EGFR(CKD-EPI) 65 >60 May 10, 2022 01:20 PM [facility] CBC & DIFF Specim en Type: BLOOD Comment: Automa nola Differential Performed Ordering Provid er: MD ESTEBAN Report Released Date/Time: May 10, 2022 08:52 PM Reporting Lab: [facility] [address] [facility] [address] Performing Lab: [facility] [address] [facility] [address] WBC 16.24 H 4.0-11.0 RBC 3.76 L [...] 0.28 H 0-0.1 May 10, 2022 11:07 [facility] FINGERSTICK GLUCOSE Speci men Type: BLOOD AM Comment: Mark casillas Nurse Notified Ordering Provid er: CODIE LEON Report Released Date/Time: May 11, 2022 12:31 AM Reporting Lab: [facility] [address] [facility] [address] Performing Lab: [facility] [address] [facility] [address] FINGERSTICK GLUCOSE 253 H 70-100 May 10, 2022 06:16 [facility] FINGERSTICK GLUCOSE Speci men Type: BLOOD AM Comment: Mark casillas Nurse Notified Ordering Provid er: CODIE LEON Report Released Date/Time: May 10, 2022 11:50 PM Reporting Lab: [facility] [address] [facility] [address] Performing Lab: [facility] [address] [facility] [address] FINGERSTICK GLUCOSE 271 H 70-100 May 09, 2022 09:07 [facility] FINGERSTICK GLUCOSE Speci men Type: BLOOD PM Comment: Mark casillas Ordering Provid er: CODIE LEON Report Released Date/Time: May 10, 2022 11:50 PM Reporting Lab: [facility] [address] [facility] [address] Performing Lab: [facility] [address] [facility] [address] FINGERSTICK GLUCOSE 209 H 70-100 May 09, 2022 05:33 [facility] FINGERSTICK GLUCOSE Speci men Type: BLOOD PM Comment: Mark casillas Nurse Notified Ordering Provid er: CODIE LEON Report Released Date/Time: May 09, 2022 05:53 PM Reporting Lab: [facility] [address] [facility] [address] Performing Lab: [facility] [address] [facility] [address] FINGERSTICK GLUCOSE 251 H 70-100 May 09, 2022 02:09 [facility] VANCOMYCIN (PEAK) Specime n Type: SERUM PM No comment enter ed. Ordering Provid er: AMARIS DE JESUS Report Released Date/Time: May 09, 2022 09:33 AM Reporting Lab: [facility] [address] [facility] [address] Performing Lab: [facility] [address] [facility] [address] VANCOMYCIN (PEAK) 24.2 20.0-40.0 May 09, 2022 11:19 [facility] FINGERSTICK GLUCOSE Speci men Type: BLOOD AM Comment: Mark casillas Nurse Notified Ordering Provid er: CODIE LEON Report Released Date/Time: May 09, 2022 11:38 AM Reporting Lab: [facility] [address] [facility] [address] Performing Lab: [facility] [address] [facility] [address] FINGERSTICK GLUCOSE 240 H 70-100 May 09, 2022 08:13 [facility] VANCOMYCIN (TROUGH) Speci men Type: SERUM AM No comment enter ed. Ordering Provid er: AMARIS DE JESUS Report Released Date/Time: May 08, 2022 11:14 AM Reporting Lab: [facility] [address] [facility] [address] Performing Lab: [facility] [address] [facility] [address] VANCOMYCIN (TROUGH) 16.1 H 10.0-15.0 May 09, 2022 05:33 AM [facility] CBC & DIFF Specim en Type: BLOOD Comment: Automa nola Differential Performed Ordering Provid er: CODIE LEON Report Released Date/Time: May 08, 2022 05:27 PM Reporting Lab: [facility] [address] [facility] [address] Performing Lab: [facility] [address] [facility] [address] WBC 14.92 H 4.0-11.0 RBC 3.41 L [...] GRAN 0.16 H 0-0.1 May 09, 2022 [facility] COMPREHENSIVE METABOLIC Spec imen Type: PLASMA 05:32 AM PANEL+MG No comment enter ed. Ordering Provid er: CODIE LEON Report Released Date/Time: May 08, 2022 05:27 PM Reporting Lab: [facility] [address] Performing Lab: [facility] [address] CREATININE 1.2 0.7-1.2 UREA NITROGEN 25 8-26 [...] 59 L >60 May 09, 2022 05:16 [facility] FINGERSTICK GLUCOSE Speci men Type: BLOOD AM Comment: Mark casillas Nurse Notified Ordering Provid er: CODIE LEON Report Released Date/Time: May 09, 2022 07:27 AM Reporting Lab: [facility] [address] Performing Lab: [facility] [address] FINGERSTICK GLUCOSE 295 H 70-100 May 08, 2022 09:32 PM [facility] EXTRA MINT TUBE Specim en Type: PLASMA No comment enter ed. Ordering Provid er: LAB,MD Report Released Date/Time: May 08, 2022 09:32 PM Reporting Lab: [facility] [address] [facility] [address] Performing Lab: [facility] [address] [facility] [address] EXTRA MINT TUBE RECEIVED May 08, 2022 09:32 PM [facility] EXTRA PURPLE TUBE Spec imen Type: BLOOD No comment enter ed. Ordering Provid er: MD ESTEBAN Report Released Date/Time: May 08, 2022 09:32 PM Reporting Lab: [facility] [address] [facility] [address] Performing Lab: [facility] [address] [facility] [address] EXTRA PURPLE TUBE RECEIVED May 08, 2022 09:32 PM [facility] EXTRA BLUE TUBE Specim en Type: PLASMA No comment enter ed. Ordering Provid er: MD ESTEBAN Report Released Date/Time: May 08, 2022 09:32 PM Reporting Lab: [facility] [address] [facility] [address] Performing Lab: [facility] [address] [facility] [address] EXTRA BLUE TUBE RECEIVED May 08, 2022 09:32 [facility] EXTRA GOLD GEL TUBE Speci men Type: SERUM PM No comment enter ed. Ordering Provid er: MD ESTEBAN Report Released Date/Time: May 08, 2022 09:32 PM Reporting Lab: [facility] [address] [facility] [address] Performing Lab: [facility] [address] [facility] [address] EXTRA GOLD GEL TUBE RECEIVED May 08, 2022 09:32 PM [facility] EXTRA BRASWELL TUBE Specim en Type: PLASMA No comment enter ed. Ordering Provid er: MD ESTEBAN Report Released Date/Time: May 08, 2022 09:37 PM Reporting Lab: [facility] [address] [facility] [address] Performing Lab: [facility] [address] [facility] [address] EXTRA BRASWELL TUBE RECEIVED May 08, 2022 09:32 PM [facility] LACTIC ACID Specim en Type: PLASMA No comment enter ed. Ordering Provid er: OG DIAL Report Released Date/Time: May 08, 2022 09:49 PM Reporting Lab: [facility] [address] [facility] [address] Performing Lab: [facility] [address] [facility] [address] LACTIC ACID 2.5 H 0.5-2.2 May 08, 2022 09:32 PM [facility] BNP Specim en Type: PLASMA No comment enter ed. Ordering Provid er: OG DIAL Report Released Date/Time: May 08, 2022 09:50 PM Reporting Lab: [facility] [address] Performing Lab: [facility] [address] BNP 897 H <99 May 08, 2022 09:32 PM [facility] BLOOD GASES Specim en Type: VENOUS BLOOD Comment: O2 THE RAPY = 3L PM Ordering Provid er: OG DIAL Report Released Date/Time: May 08, 2022 09:50 PM Reporting Lab: [facility] [address] Performing Lab: [facility] [address] PH 7.36 7.33-7.43 PCO2 47 41-51 BICARBONATE 24.4 21.0-30.0 PO2 31 L 35-40 OXYGEN SATURATION 54.7 L 70.0-75.0 PH(TEMP CORRECTED) 7.37 7.33-7.43 PCO2(TEMP CORRECTED) 46 41-51 PO2(TEMP CORRECTED) 31 L 35-40 PATIENT TEMPERATURE 36.7 May 08, 2022 [facility] COMPREHENSIVE METABOLIC Spec imen Type: PLASMA 09:32 PM PANEL+MG No comment enter ed. Ordering Provid er: OG DIAL Report Released Date/Time: May 08, 2022 09:50 PM Reporting Lab: [facility] [address] Performing Lab: [facility] [address] CREATININE 1.3 H 0.7-1.2 UREA NITROGEN 26 [...] L >60 May 08, 2022 09:32 PM [facility] CBC Specim en Type: BLOOD No comment enter ed. Ordering Provid er: OG DIAL Report Released Date/Time: May 08, 2022 09:50 PM Reporting Lab: [facility] [address] [facility] [address] Performing Lab: [facility] [address] [facility] [address] WBC 18.54 H 4.0-11.0 RBC 3.68 L 4.6-6.2 HGB 11.5 L 13.5-17.9 HCT 35.1 L 41-54 MCV 95.4 80-100 MCH 31.3 27-33 MCHC 32.8 32.0-37.5 PLT 221 150-400 MPV 11.1 H 7.4-10.4 RDW 14.9 H 11.5-14.5 May 08, 2022 08:27 [facility] FINGERSTICK GLUCOSE Speci men Type: BLOOD PM Comment: Mark casillas Nurse Notified Ordering Provid er: CODIE LEON Report Released Date/Time: May 08, 2022 08:55 PM Reporting Lab: [facility] [address] [facility] [address] Performing Lab: [facility] [address] FINGERSTICK GLUCOSE 272 H 70-100 May 08, 2022 06:56 [facility] FINGERSTICK GLUCOSE Speci men Type: BLOOD PM Comment: Mark casillas Ordering Provid er: CODIE LEON Report Released Date/Time: May 08, 2022 07:08 PM Reporting Lab: [facility] [address] [facility] [address] Performing Lab: [facility] [address] [facility] [address] FINGERSTICK GLUCOSE 262 H 70-100 May 08, 2022 04:50 [facility] FINGERSTICK GLUCOSE Speci men Type: BLOOD PM Comment: Nurse Notified Ordering Provid er: CODIE LEON Report Released Date/Time: May 08, 2022 05:14 PM Reporting Lab: [facility] [address] [facility] [address] Performing Lab: [facility] [address] [facility] [address] FINGERSTICK GLUCOSE 330 H 70-100 May 08, 2022 11:21 [facility] FINGERSTICK GLUCOSE Speci men Type: BLOOD AM Comment: Mark casillas Nurse Notified Ordering Provid er: CODIE LEON Report Released Date/Time: May 08, 2022 11:51 AM Reporting Lab: [facility] [address] [facility] [address] Performing Lab: [facility] [address] FINGERSTICK GLUCOSE 231 H 70-100 May 08, 2022 07:25 AM [facility] CBC & DIFF Specim en Type: BLOOD Comment: Automrobby vaca Differential Performed Ordering Provid er: BETO AYALA Report Released Date/Time: May 07, 2022 12:28 PM Reporting Lab: [facility] [address] Performing Lab: [facility] [address] [facility] [address] WBC 16.29 H 4.0-11.0 RBC 3.38 L [...] GRAN 0.26 H 0-0.1 May 08, 2022 [facility] PROTHROMBIN TIME/INR Specime n Type: PLASMA 07:25 AM No comment enter ed. Ordering Provid er: BETO AYALA Report Released Date/Time: May 07, 2022 12:28 PM Reporting Lab: [facility] [address] Performing Lab: [facility] [address] [address] .INR 1.2 H 0.8-1.1 .PT 14.2 H 9.4-12.5 May 08, 2022 [facility] COMPREHENSIVE METABOLIC Spec imen Type: PLASMA 07:25 AM PANEL+MG No comment enter ed. Ordering Provid er: BETO AYALA Report Released Date/Time: May 07, 2022 12:28 PM Reporting Lab: [facility] [address] [facility] [id number] CREATININE 1.1 0.7-1.2 UREA NITROGEN 27 H [...] EGFR(CKD-EPI) 65 >60 May 08, 2022 06:53 [facility] FINGERSTICK GLUCOSE Speci men Type: BLOOD AM Comment: Mark casillas Ordering Provid er: CODIE LEON Report Released Date/Time: May 08, 2022 07:18 AM Reporting Lab: [facility] [address] [facility] [id number] Performing Lab: [facility] [id number] FINGERSTICK GLUCOSE 276 H 70-100 May 07, 2022 08:36 [facility] FINGERSTICK GLUCOSE Speci men Type: BLOOD PM Comment: Nurse Notified Ordering Provid er: CODIE LEON Report Released Date/Time: May 08, 2022 12:29 AM Reporting Lab: [facility] [address] [facility] [address] Performing Lab: [facility] [address] [facility] [address] FINGERSTICK GLUCOSE 282 H 70-100 May 07, 2022 07:04 PM [facility] LACTIC ACID Specim en Type: PLASMA No comment enter ed. Ordering Provid er: BETO AYALA Report Released Date/Time: May 07, 2022 06:28 PM Reporting Lab: [facility] [address] [facility] [address] Performing Lab: [facility] [address] [facility] [address] LACTIC ACID 2.0 0.5-2.2 May 07, 2022 04:46 [facility] FINGERSTICK GLUCOSE Speci men Type: BLOOD PM Comment: Nurse Notified Ordering Provid er: BETO AYALA Report Released Date/Time: May 07, 2022 05:00 PM Reporting Lab: [facility] [address] [facility] [address] Performing Lab: [facility] [address] [facility] [address] FINGERSTICK GLUCOSE 274 H 70-100 May 07, 2022 12:47 [facility] FINGERSTICK GLUCOSE Speci men Type: BLOOD PM Comment: Mark casillas Nurse Notified Ordering Provid er: BETO AYALA Report Released Date/Time: May 07, 2022 05:32 PM Reporting Lab: [facility] [address] [facility] [address] Performing Lab: [facility] [address] [facility] [address] FINGERSTICK GLUCOSE 309 H 70-100 May 07, 2022 06:35 [facility] FINGERSTICK GLUCOSE Speci men Type: BLOOD AM Comment: Mark casillas Nurse Notified Ordering Provid er: GAYLA DOMINGUEZ Report Released Date/Time: May 07, 2022 06:46 AM Reporting Lab: [facility] [address] [facility] [address] Performing Lab: [facility] [address] [facility] [address] FINGERSTICK GLUCOSE 352 H 70-100 May 07, 2022 06:15 AM [facility] ALBUMIN Specim en Type: PLASMA No comment enter ed. Ordering Provid er: GAYLA DOMINGUEZ Report Released Date/Time: May 06, 2022 06:33 PM Reporting Lab: [facility] [address] [facility] [address] Performing Lab: [facility] [address] [facility] [address] ALBUMIN 3.0 L 3.5-5.2 May 07, 2022 [facility] COMPREHENSIVE METABOLIC Spec imen Type: PLASMA 06:15 AM PANEL+MG No comment enter ed. Ordering Provid er: GAYLA DOMINGUEZ Report Released Date/Time: May 06, 2022 09:11 PM Reporting Lab: [facility] [address] Performing Lab: [facility] [address] CREATININE 1.2 0.7-1.2 UREA NITROGEN 25 8-26 [...] L >60 May 07, 2022 06:15 AM [facility] CBC & DIFF Specim en Type: BLOOD Comment: Manual Differential Performed Ordering Provid er: GAYLA DOMINGUEZ Report Released Date/Time: May 06, 2022 09:11 PM Reporting Lab: [facility] [address] Performing Lab: [facility] [address] WBC 20.25 H 4.0-11.0 RBC 3.54 L [...] NORMOCYTIC, NORMOCHROMIC May 07, 2022 12:19 AM [facility] LACTIC ACID Specim en Type: PLASMA No comment enter ed. Ordering Provid er: GAYLA DOMINGUEZ Report Released Date/Time: May 06, 2022 07:13 PM Reporting Lab: [facility] [address] [facility] [address] Performing Lab: [facility] [address] [facility] [address] LACTIC ACID 2.7 H 0.5-2.2 May 06, 2022 10:45 [facility] FINGERSTICK GLUCOSE Speci men Type: BLOOD PM Comment: Save R esult Nurse Notified Ordering Provid er: GAYLA DOMINGUEZ Report Released Date/Time: May 07, 2022 12:08 AM Reporting Lab: [facility] [address] [facility] [address] Performing Lab: [facility] [address] [facility] [address] FINGERSTICK GLUCOSE 320 H 70-100 May 06, 2022 06:53 [facility] MRSA SURVL NARES Specimen Type: NARES PM DNA No comment enter ed. Ordering Provid er: GAYLA DOMINGUEZ Report Released Date/Time: May 06, 2022 06:33 PM Reporting Lab: [facility] [address] [facility] [address] Performing Lab: [facility] [address] [facility] [address] MRSA SURVL NARES DNA POSITIVE HH Negative May 06, 2022 06:51 PM [facility] LACTIC ACID Specim en Type: PLASMA No comment enter ed. Ordering Provid er: GAYLA DOMINGUEZ Report Released Date/Time: May 06, 2022 06:04 PM Reporting Lab: [facility] [address] [facility] [address] Performing Lab: [facility] [address] [facility] [address] LACTIC ACID 3.1 H 0.5-2.2 May 06, 2022 06:51 [facility] CARDIAC TROPONIN I Specim en Type: PLASMA PM No comment enter ed. Ordering Provid er: GAYLA DOMINGUEZ Report Released Date/Time: May 06, 2022 06:05 PM Reporting Lab: [facility] [address] [facility] [address] Performing Lab: [facility] [address] [facility] [address] CARDIAC TROPONIN I <0.028 <0.028 May 06, 2022 06:51 [facility] EXTRA GOLD GEL TUBE Speci men Type: SERUM PM No comment enter ed. Ordering Provid er: GAYLA DOMINGUEZ Report Released Date/Time: May 06, 2022 06:52 PM Reporting Lab: [facility] [address] [facility] [address] Performing Lab: [facility] [address] [facility] [address] EXTRA GOLD GEL TUBE RECEIVED May 06, 2022 06:51 [facility] C-REACTIVE PROTEIN Specim en Type: PLASMA PM No comment enter ed. Ordering Provid er: GAYLA DOMINGUEZ Report Released Date/Time: May 06, 2022 09:29 PM Reporting Lab: [facility] [address] [facility] [address] Performing Lab: [facility] [address] C-REACTIVE PROTEIN 392.40 H <5.00 May 06, 2022 10:51 AM [facility] URINALYSIS Specim en Type: URINE No comment enter ed. Ordering Provid er: MODESTA VILLANUEVA Report Released Date/Time: May 06, 2022 10:11 AM Reporting Lab: [facility] [address] [facility] [address] Performing Lab: [facility] [address] [facility] [address] URINE COLOR YELLOW SPECIFIC GRAVITY 1.020 1.003-1.035 [...] ESTERASE 500 NEGATIVE May 06, 2022 10:24 [facility] COVID-19 DIAGNOSTIC Speci men Type: NASOPHARYNGEAL AM PANEL (CEPHEID) Comment: Kym lopez GeneXpert (618) Ordering Provid er: MODESTA VILLANUEVA Report Released Date/Time: May 06, 2022 10:11 AM Reporting Lab: [facility] [address] [facility] [address] Performing Lab: [facility] [address] [facility] [address] COVID-19 (CEPHEID) Not Detected Not Dete cted May 06, 2022 10:20 AM [facility] POC ABG/LACTATE Specim en Type: VENOUS BLOOD No comment enter ed. Ordering Provid er: MODESTA VILLANUEVA Report Released Date/Time: May 06, 2022 10:22 AM Reporting Lab: [facility] [address] [facility] [address] Performing Lab: [facility] [address] [facility] [address] POC PH 7.410 7.31-7.41 POC PCO2 28.9 L 35.00-45.00 POC PO2 82 H 35.0-40.0 POC TCO2 19 L 24.0-29.0 POC HCO3 18.3 L 23.0-28.0 POC BE ECT -6 L -2 POC SO2 96 H 70-75 POC LACTATE 3.62 0.90-1.70 May 06, 2022 10:00 [facility] PROTHROMBIN TIME/INR Spec imen Type: PLASMA AM No comment enter ed. Ordering Provid er: MODESTA VILLANUEVA Report Released Date/Time: May 06, 2022 10:11 AM Reporting Lab: [facility] [address] [facility] [address] Performing Lab: [facility] [address] [facility] [address] .INR 2.5 H 0.8-1.1 .PT 29.2 H 9.4-12.5 May 06, 2022 10:00 [facility] ACT PART THROMBO TIME Spe cimen Type: PLASMA AM No comment enter ed. Ordering Provid er: MODESTA VILLANUEVA Report Released Date/Time: May 06, 2022 10:11 AM Reporting Lab: [facility] [address] [facility] [address] Performing Lab: [facility] [address] [facility] [address] APTT 37.8 H 25.1-36.5 May 06, 2022 10:00 AM [facility] PHOSPHORUS Specim en Type: PLASMA No comment enter ed. Ordering Provid er: MODESTA VILLANUEVA Report Released Date/Time: May 06, 2022 10:11 AM Reporting Lab: [facility] [address] [facility] [address] Performing Lab: [facility] [address] [facility] [address] PHOSPHORUS 2.5 2.3-4.7 May 06, 2022 10:00 [facility] CARDIAC TROPONIN I Specim en Type: PLASMA AM Comment: Critic al Value Reported To: BROOKS COTE 05-06-2022 @1053 BY MBB. Critical value report confirmed. Ordering Provid er: MODESTA VILLANUEVA Report Released Date/Time: May 06, 2022 10:11 AM Reporting Lab: [facility] [address] Performing Lab: [facility] [address] CARDIAC TROPONIN I 0.035 HH <0.028 May 06, 2022 [facility] COMPREHENSIVE METABOLIC Spec imen Type: PLASMA 10:00 AM PANEL+MG Comment: Manual Differential Performed Ordering Provid er: MODESTA VILLANUEVA Report Released Date/Time: May 06, 2022 10:11 AM Reporting Lab: [facility] [address] [facility] [address] Performing Lab: [facility] [address] CREATININE 1.3 H 0.7-1.2 UREA NITROGEN 25 [...] L >60 May 06, 2022 10:00 AM [facility] CBC & DIFF Specim en Type: BLOOD Comment: Manual Differential Performed Ordering Provid er: MODESTA VILLANUEVA Report Released Date/Time: May 06, 2022 10:11 AM Reporting Lab: [facility] [address] [facility] [address] Performing Lab: [facility] [address] WBC 18.82 H 4.0-11.0 RBC 3.70 L [...] MORPHOLOGY PRESENT May 06, 2022 10:00 AM [facility] PROCALCITONIN Specim en Type: PLASMA No comment enter ed. Ordering Provid er: MODESTA VILLANUEVA Report Released Date/Time: May 06, 2022 10:11 AM Reporting Lab: [facility] [address] [facility] [address] Performing Lab: [facility] [address] [facility] [address] PROCALCITONIN 22.29 H <0.09 May 06, 2022 10:00 [facility] EXTRA GOLD GEL TUBE Speci men Type: SERUM AM No comment enter ed. Ordering Provid er: LINNEA RAND Report Released Date/Time: May 06, 2022 10:25 AM Reporting Lab: [facility] [address] [facility] [address] Performing Lab: [facility] [address] [facility] [address] EXTRA GOLD GEL TUBE RECEIVED May 06, 2022 10:00 AM [facility] LIPASE Specim en Type: PLASMA No comment enter ed. Ordering Provid er: MODESTA VILLANUEVA Report Released Date/Time: May 06, 2022 10:11 AM Reporting Lab: [facility] [address] [facility] [address] Performing Lab: [facility] [address] [facility] [address] LIPASE <4 <60 May 06, 2022 09:46 [facility] FINGERSTICK GLUCOSE Speci men Type: BLOOD AM Comment: Mark R sonja Nurse Notified Ordering Provid er: MODESTA VILLANUEVA Report Released Date/Time: May 06, 2022 09:59 AM Reporting Lab: [facility] [address] [facility] [address] Performing Lab: [facility] [address] [facility] [address] FINGERSTICK GLUCOSE 369 H 70-100 Apr 30, 2022 [facility] BASIC METABOLIC Specimen Typ e: PLASMA 09:17 AM PANEL+MG No comment enter ed. Ordering Provid er: BILL GUNTER Report Released Date/Time: Apr 30, 2022 08:21 AM Reporting Lab: [facility] [address] [facility] [address] Performing Lab: [facility] [address] [facility] [address] CREATININE 1.2 0.7-1.2 UREA NITROGEN 26 8-26 GLUCOSE 140 H 70-100 SODIUM 138 136-145 POTASSIUM 3.8 3.5-5.1 CHLORIDE 107 98-107 CO2 20 L 22-29 CALCIUM 9.4 8.4-10.2 MAGNESIUM 1.7 1.6-2.6 ANION GAP 11 5-15 CREAT EGFR(CKD-EPI) 59 L >60 Apr 30, 2022 09:17 AM [facility] CBC Specim en Type: BLOOD No comment enter ed. Ordering Provid er: BILL GUNTER Report Released Date/Time: Apr 30, 2022 08:21 AM Reporting Lab: [facility] [address] [facility] [address] Performing Lab: [facility] [address] WBC 10.40 4.0-11.0 RBC 3.96 L 4.6-6.2 HGB 12.3 L 13.5-17.9 HCT 37.8 L 41-54 MCV 95.5 80-100 MCH 31.1 27-33 MCHC 32.5 32.0-37.5 PLT 286 150-400 MPV 10.1 7.4-10.4 RDW 14.6 H 11.5-14.5 Social History: Smoking Status (Most current) and Tobacco Use (All prior to encounter date) This section includes the most current, and the historical, smoking and tobacco-related health factors from the [place] facility where the Encounter took place.Current Smoking Status This section includes the most current smoking, or tobacco-related health factor, from the [place] facility where the Encounter took place. Date/Time Current Smoking Status Comment Facility Feb 02, 2022 09:30 AM DC-TOBACCO NEVER USED [facility] Tobacco Use History This section includes a history of the smoking, or tobacco- related health factors, that were collected on or before the date of the Encounter. The data comes from the [place] facility where the Encounter took place. Date/Time [...] ALL of a patient's completed or amended [place] Advance and Rescinded Directives. The entries below indicate that a directive exists for the patient, but an actual copy is not included with this document. The data comes from all [facility]. Date Advance Directives Provider Source Apr 18, 2018 ADVANCE DIRECTIVE JOVONLARISSA [facility] Apr 18, 2018 ADVANCE DIRECTIVE DISCUSSION LARISSA SIGALA [facility] December 23, 2017 CLINICAL WARNING FARHAT [facility] May 11, 2003 ADVANCE DIRECTIVE BERT CASILLAS [facility] Radiology Reports: +/- 30 days of the [...] the Encounter. The data comes from all [place] treatment facilities. Date/Time Radiology Report Provider Source May 11, 2022 09:46 CHEST 1 VIEW: SONJA OVALLES [facility] [place] ED[place] [id number] -1935 M Exm Date: MAY 11, 2022@09:46 Req Phys: CODIE LEON Loc: OP Unknown /05-13-2022@05:05 Img Loc: MAIN X-RAY Service: PRIMARY CARE - MED OFFICE (Case [id number] COMPLETE) CHEST 1 VIEW (RAD Detailed) CPT:27007 Proc Modifiers : PORTABLE EXAM Reason for [...] 11, 2022 Date Verified: MAY 11, 2022 Steno Typist E-Sig:/ES/SONJA OVALLES MD Report: CHEST 1 VIEW [...] Primary Interpreting Staff: SONJA OVALLES MD, RADIOLOGIST (Steno Typist) /CDC May 10, 2022 03:49 CT HEAD (P): RADIOLOGY,OUTSIDE [facility] PM LUISANA EDDY [id number] -1935 M SERVICE Exm Date: MAY 10, 2022@15:49 Req Phys: CODIE LEON Loc: OP Unknown /05-13-2022@05:05 [facility] [place] IMAGING Service: PRIMARY CARE - MED OFFICE (Case [id number] COMPLETE) CT HEAD/BRAIN W/O CONTRAST (CT Detailed) CPT:16904 Reason for Study: CHANGE IN MENTAL STATUS Clinical History: CHANGE IN MENTAL STATUS. ORDER ADMINISTRATIVELY ENTERED FOLLOWING SYSTEM OUTAGE. Report Status: Verified Date Reported: MAY 10, 2022 Date Verified: MAY 10, 2022 Steno Typist E-Sig: Report: CT HEAD/BRAIN W/O CONTRAST [PRINTSET] HISTORY: Change in mental status. COMPARISON: CT from 05/07/2022. TECHNIQUE: Contiguous axial CT images from the level of the skull base through the skull apex, with coronal and s agittal reformats, performed at the local [place] facility. 321 images were received by the [place] National Teleradiology Program (NTP) for interpretation. RADIATION [...] study. READING PHYSICIAN: Akash Mccoy M.D. -[phone] 05/10/2022 17:35 PDT [facility] National Teleradiology Program [phone] (For Medical Practitioner Use Only ) Attention Patients / Veterans: If you have ques tions or concerns about these test results, please contact [facility] or primary care team. Primary Interpreting Staff: RADIOLOGY,OUTSIDE SERVICE, Staff Physician / May 08, 2022 07:45 CT T-SPINE (P): RADIOLOGY,OUTSIDE [facility] PM [place] EDDY [id number] -1935 M SERVICE Exm Date: MAY 08, 2022@19:45 Req Phys: CODIE LEON Chantal Loc: OP Unknown /05-13-2022@05:05 Img Loc: CT IMAGING Service: PRIMARY CARE - MED OFFICE (Case [id number] COMPLETE) CT SPINE THORACIC W/O CONTR AST (CT Detailed) CPT:09141 Reason for Study: mrsa bacteremia, spinal surge ry - r/o abscess or discitis Clinical History: [place] IS NOT under investigation for COVID-19 or is COVID-19 negative Defer to radiologist for final CT protocol. Responsible provider name and phone number to n otify for critical findings if other than user placing the order a nd pager listed below: User placing orders pager: [phone] LAST 3: Collection DT Specimen Test Name [...] GFR (eGF 44 L Ref: >=60 Allergies: ([place] only) SIMVASTATIN (Feb 29, 2004) CEPHALEXIN (Mar 01, 2004) Report Status: Verified Date Reported: MAY 08, 2022 Date Verified: MAY 08, 2022 Steno Typist E-Sig: Report: CT SPINE THORACIC W/O CONTRAST [PRINTSET] HISTORY:MRSA bacteremia NUMBER OF IMAGES:1151 COMPARISON: Correlation with images from recent CT abdomen and pelvis May 06, 2022 TECHNIQUE: A non contrast CT of the thoracic sp ine was performed at the local [place]. Images were subsequently sent to [place] [...] thoracic level. READING PHYSICIAN: Luisana Webb MD -[id number] [phone] 05/08/2022 19:20 PDT [facility] National Teleradiology Program [phone] (For Medical Practitioner Use Only ) Attention Patients / Veterans: If you have ques tions or concerns about these test results, please contact your [facility] provider or primary care team. Primary Interpreting Staff: RADIOLOGY,OUTSIDE SERVICE, Staff Physician / May 08, 2022 04:48 CHEST 1 VIEW: RADIOLOGY,OUTSIDE [facility] PM [place] EDDY [id number] -1935 M SERVICE Exm Date: MAY 08, 2022@16:48 Req Phys: CODIE LEON Loc: OP Unknown /05-13-2022@05:05 Img Loc: MAIN X-RAY Service: PRIMARY CARE - MED OFFICE (Case [id number] COMPLETE) CHEST 1 VIEW (RAD Detailed) CPT:47164 Proc Modifiers : PORTABLE EXAM Reason for Study: dyspnea Clinical History: [place] IS NOT under investigation for COVID-19 or is COVID-19 negative acute worsening of dyspnea Responsible provider name and phone number to notify for critical findings if other than user placing the order and pager listed below: User placing orders pager: [phone] malini cell [phone] LAST CREATININE 1.1 (05/08/22) Report Status: Verified Date Reported: MAY 08, 2022 Date Verified: MAY 08, 2022 Steno Typist E-Sig: Report: CHEST 1 VIEW HISTORY: dyspnea COMPARISON: 05/06/2022 TECHNIQUE: Frontal view(s) of the chest, submit nola to the [place] National Teleradiology Program (NTP) for interp retation. FINDINGS: Reduced lung volumes. Progressive cardiomegaly, and vascular congestion as well as diffuse interstitial prom inence with probable small effusions. Impression: Expiratory exam with findings of CHF and mild e santa READING PHYSICIAN: Nghia Menjivar M.D. -[id number] 10 05/08/2022 18:57 EDT [facility] National Teleradiology Program [phone] (For Medical Practitioner Use Only ) Attention Patients / Veterans: If you have ques tions or concerns about these test results, please contact your o rdering provider or primary care team. Primary Interpreting Staff: RADIOLOGY,OUTSIDE SERVICE, Staff Physician / May 07, 2022 10:29 CT HEAD (P): SHANI POLANCO [facility] [place] ED[place] [id number] -1935 M Exm Date: MAY 07, 2022@10:29 Req Phys: BETO AYALA Pat Loc: OP Unknown/0 05-13-2022@05:05 Img Loc: CT IMAGING Service: PRIMARY CARE - MED OFFICE (Case [id number] COMPLETE) CT HEAD/BRAIN W/O CONTRAST ( CT Detailed) CPT:73535 Reason for Study: seizure noted at [facility] Clinical History: IS NOT under investigation for COVID-19 or is COVID-19 negative Defer to radiologist for final CT protocol. Responsible provider name and phone number to n otify for critical findings if other than user placing the order a nd pager listed below: User placing orders pager: [phone] LAST 3: Collection DT Specimen Test Name [...] GFR (eGF 44 L Ref: >=60 Allergies: ([place] only) SIMVASTATIN (Feb 29, 2004) CEPHALEXIN (Mar 01, 2004) Report Status: Verified Date Reported: MAY 07, 2022 Date Verified: MAY 07, 2022 Steno Typist E-Sig:/ES/SHANI POLANCO MD Report: EXAM: CT HEAD/BRAIN W/O CONTRAST HISTORY: seizure noted at [facility] Reason for Study: seizure noted at [facility] [place] IS NOT under investigation for COVID-19 or is COVID-19 negative Defer to radiologist for final CT prot ocol. Responsible provider name and phone number to notify for cr itical findings if other than user placing the order and pager lis nola below: User placing orders pager: [phone] LAST 3: Collecti on DT Specimen Test [...] Primary Interpreting Staff: SHANI POLANCO MD, RADIOLOGIST (Steno Typist) /Javed May 06, 2022 11:40 CHEST 1 VIEW: RADIOLOGY,OUTSIDE [facility] LU[place] EDDY [id number] -1935 M SERVICE Exm Date: MAY 06, 2022@11:40 Req Phys: MODESTA VILLANUEVA Loc: [facility] EMERGENCY DEPT WALK-IN (Re Img Loc: MAIN X-RAY Service: Unknown (Case [id number] COMPLETE) CHEST 1 VIEW (RAD Detailed) C PT:87333 Proc Modifiers : PORTABLE EXAM Reason for Study: fever, back pain Clinical History: Reason for Exam: Severe Sepsis Pathway to Evalu ate Volume Status and Source of Sepsis [place] IS under investigation (PUI) for COVID- 19 or is COVID-19+ 86 yo M with fever, back pain Responsible provi violeta name and phone number to notify for critical findings if other than user placing the order and pager listed below: User placing orders pager: [phone] LAST CREATININE 1.2 (04/30/22) Report Status: Verified Date Reported: MAY 06, 2022 Date Verified: MAY 06, 2022 Steno Typist E-Sig: Report: Technique: Frontal chest. No comparison Impression: Cardiac silhouette is mildly enlarged. There is mild pulmonary venous congestion. No definite pleural effusion . No pneumothorax seen. READING PHYSICIAN: Vern Donnelly M.D. -[id number] 07 05/06/2022 13:26 EDT [facility] National Teleradiology Program [phone] (For Medical Practitioner Use Only ) Attention Patients / Veterans: If you have ques tions or concerns about these test results, please contact [facility] or primary care team. Primary Interpreting Staff: RADIOLOGY,OUTSIDE SERVICE, Staff Physician / May 06, 2022 10:36 CT (AP) ABDOMEN/PELVIS (P): RADIOLOGY,OUTSIDE [facility] [place] EDDY [id number] -1935 M SERVICE Exm Date: MAY 06, 2022@10:36 Req Phys: MODESTA VILLANUEVA Loc: [facility] EMERGENCY DEPT WALK-IN (Re Img Loc: CT IMAGING Service: Unknown (Case 66 COMPLETE) CT (AP) ABDOMEN/PELVIS W CONT RAST(CT Detailed) CPT:96586 Reason for Study: fever, back pain Clinical History: fever, back pain, ecchymosis left low back consideration for intra-abdominal process, aort ic changes, LS spine trauma, kidney inflammation, GI or obs truction [place] IS under investigation ([facility]) for COVID- 19 or is COVID-19+ Defer to radiologist for final CT protocol. Please enter pertinent clinical history on the next page. Responsible provider name and phone number to n otify for critical findings if other than user placing the order a nd pager listed below: User placing orders pager: [phone] LAST 3: Collection DT Specimen Test Name [...] ESTIMATED GFR(eGF 44 L Ref: >=60 Allergies: ([place] only) SIMVASTATIN (Feb 29, 2004) CEPHALEXIN (Mar 01, 2004) To see allergies from all [facility] locations click Re ports tab>Remote Data>All Available Sites>Clinical Reports>Aller gies. Report Status: Verified Date Reported: MAY 06, 2022 Date Verified: MAY 06, 2022 Steno Typist E-Sig: Report: Exam: CT (AP) ABDOMEN/PELVIS W [...] findings, above. READING PHYSICIAN: Eduin Donaldson M.D. -[phone] 05/06/2022 12:48 [facility] [employer] [phone] (For Medical Practitioner Use Only ) Attention Patients / Veterans: If you have ques tions or concerns about these test results, please contact your [facility] provider or primary care team. Primary Interpreting Staff: RADIOLOGY,OUTSIDE SERVICE, Staff Physician / May 06, 2022 10:35 CT HEAD/BRAIN W/O CONTRAST: RADIOLOGY,OUTSIDE [facility] LUISANA EDDY [id number] -1935 M SERVICE Exm Date: MAY 06, 2022@10:35 Req Phys: MODESTA VILLANUEVA Loc: [facility] EMERGENCY DEPT WALK-IN (Re Img Loc: CT IMAGING Service: Unknown (Case 64 COMPLETE) CT HEAD/BRAIN W/O CONTRAST (C T Detailed) CPT:28564 Reason for Study: falls, blood thinner, AMS, se izure Clinical History: falls, blood thinner, AMS, seizure IS under investigation (PUI) for COVID- 19 or is COVID-19+ Defer to radiologist for final CT protocol. Responsible provider name and phone number to n otify for critical findings if other than user placing the order a nd pager listed below: User placing orders pager: [phone] LAST 3: Collection DT Specimen Test Name [...] ESTIMATED GFR(eGF 44 L Ref: >=60 Allergies: ([place] only) SIMVASTATIN (Feb 29, 2004) CEPHALEXIN (Mar 01, 2004) To see allergies from all [facility] locations click Re ports tab>Remote Data>All Available Sites>Clinical Reports>Aller gies. Report Status: Verified Date Reported: MAY 06, 2022 Date Verified: MAY 06, 2022 Steno Typist E-Sig: Report: CT HEAD/BRAIN W/O CONTRAST Clinical History: falls, blood thinner, AMS, se izure Number of Images: 532 Comparison: 03/12/2022 Technique: The study was protocoled and supervi sed at the local [facility] facility. CT of the head without contrast. I mages were subsequently received by the [place] National [facility] di[facility] Program (NTP) for interpretation. [...] T findings. READING PHYSICIAN: Eduin Donaldson M.D. -[phone] 05/06/2022 12:30 [facility] National Teleradiology Program [phone] (For Medical Practitioner Use Only ) Attention Patients / Veterans: If you have ques tions or concerns about these test results, please contact your o rdering provider or primary care team. Primary Interpreting Staff: RADIOLOGY,OUTSIDE SERVICE, Staff Physician / May 06, 2022 10:35 CT CERVICAL SPINE W/O CONTRAST: RADIOLOGY,OUT SIDE [facility] AM LUISANA EDDY [id number] -1935 M SERVICE Exm Date: MAY 06, 2022@10:35 Req Phys: MODESTA VILLANUEVA Loc: [facility] EMERGENCY DEPT WALK-IN (Re Img Loc: CT IMAGING Service: Unknown (Case 65 COMPLETE) CT CERVICAL SPINE W/O CONTRAS T (CT Detailed) CPT:05785 Reason for Study: falls, blood thinner, AMS, se izure Clinical History: falls, blood thinner, AMS, seizure [place] IS under investigation (PUI) for COVID- 19 or is COVID-19+ Defer to radiologist for final CT protocol. Responsible provider name and phone number to n otify for critical findings if other than user placing the order a nd pager listed below: User placing orders pager: [phone] LAST 3: Collection DT Specimen Test Name [...] ESTIMATED GFR(eGF 44 L Ref: >=60 Allergies: ([place] only) SIMVASTATIN (Feb 29, 2004) CEPHALEXIN (Mar 01, 2004) To see allergies from all [place] locations click Re ports tab>Remote Data>All Available Sites>Clinical Reports>Aller gies. Report Status: Verified Date Reported: MAY 06, 2022 Date Verified: MAY 06, 2022 Steno Typist E-Sig: Report: CT CERVICAL SPINE W/O CONTRAST HISTORY:falls, blood thinner, AMS, seizure NUMBER OF IMAGES:770 COMPARISON: None available. TECHNIQUE: A non contrast CT of the cervical sp ine was performed at the local [place]. Images were subsequently sent to [place] [...] findings, above. READING PHYSICIAN: Eduin Donaldson M.D. -[phone] 05/06/2022 12:33 [facility] National Teleradiology Program [phone] (For Medical Practitioner Use Only ) Attention Patients / Veterans: If you have ques tions or concerns about these test results, please [facility] or [facility] team. Primary [...] the Encounter. The data comes from all [place] treatment facilities. Date/Time Pathology Report Provider Source May 09, 2022 05:30 AM LR MICROBIOLOGY REPORT: [facility] Reporting Lab: [facility] [CLIA# [id number]] [place] [address] Accession [UID]: [id number] [[id number]] Receiv ed: May 09, 2022@01:35 Collection sample: BLOOD Collection date: Apr 05:30 Provider: CODIE LEON Comment on specimen: LEFT ARM, RECEIVED 2 BLOOD CULTURE BOTTLES Test(s) ordered: CULTURE & SUSCEPTIBILITY...... 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 R TRIMETH/SULFA................. S TETRACYCLINE.................. S CLINDAMYCIN................... S RIFAMPIN...................... S VANCOMYCIN.................... S Bacteriology Remark(s): VANCOMYCIN SHAMIKA: <=0.5 ug/mL THIS REPORT IS FINAL =--=--=--=--=--=--=--=--=--=--=--=--=--= --=--=--=--=--=--=--=--=--=--=--=--=-- Performing Laboratory: Bacteriology Report Performed By: [facility] [CLIA# [id number]] [place] [address] May 08, 2022 03:23 PM LR MICROBIOLOGY REPORT: [place] [facility] Reporting Lab: [facility] [CLIA# [id number]] [place] [address] Accession [UID]: [id number] [[id number]] Receiv ed: May 08, 2022@15:41 Collection sample: BLOOD Collection date: Apr 15:23 Provider: CODIE LEON Comment on specimen: LEFT ARM, RECEIVED 2 BLOOD CULTURE BOTTLES Test(s) ordered: CULTURE & SUSCEPTIBILITY...... completed: May 10, 2022 * BACTERIOLOGY FINAL REPORT => May 10, 2022 16:3 1 TECH CODE: [id number] CULTURE RESULTS: GROWTH SAME THAT OF ANOTHER CULTURE Comment: FOR SUSCEPTIBILITY REPORT SEE PREVIOUS POSITIVE SAME MB 22 [id number] ( 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 from Anaerobic bottle ) ( Recovered from Aerobic bottle ) Bacteriology Remark(s): THIS REPORT IS FINAL =--=--=--=--=--=--=--=--=--=--=--=--=--= --=--=--=--=--=--=--=--=--=--=--=--=-- Performing Laboratory: Bacteriology Report Performed By: [facility] [CLIA# [id number]] [place] [address] May 08, 2022 03:21 PM LR MICROBIOLOGY REPORT: [facility] Reporting Lab: [facility] [CLIA# [id number]] [place] [address] Accession [UID]: [id number] [[id number]] Receiv ed: May 08, 2022@15:40 Collection sample: BLOOD Collection date: Apr 15:21 Provider: CODIE LEON Comment on specimen: RT ARM, RECEIVED 2 BLOOD CU LTURE BOTTLES Test(s) ordered: CULTURE & SUSCEPTIBILITY...... completed: May 10, 2022 * BACTERIOLOGY FINAL REPORT => May 10, 2022 16:3 1 TECH CODE: [id number] CULTURE RESULTS: GROWTH SAME THAT OF ANOTHER CULTURE Comment: FOR SUSCEPTIBILITY REPORT SEE PREVIOUS POSITIVE SAME MB 22 [id number] ( 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 from Anaerobic bottle ) ( Recovered from Aerobic bottle ) Bacteriology Remark(s): THIS REPORT IS FINAL =--=--=--=--=--=--=--=--=--=--=--=--=--= --=--=--=--=--=--=--=--=--=--=--=--=-- Performing Laboratory: Bacteriology Report Performed By: [facility] [CLIA# [id number]] [place] [address] May 07, 2022 05:30 AM LR MICROBIOLOGY REPORT: [facility] Reporting Lab: [facility] [CLIA# [id number]] [place] [address] Accession [UID]: [id number] [[id number]] Receiv ed: May 07, 2022@01:35 Collection sample: [...] REPORT SEE PREVIOUS POSITIVE SAME MB 22 [id number] ( 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 from Aerobic bottle ) ( Recovered from Anaerobic bottle ) Bacteriology Remark(s): THIS REPORT IS FINAL =--=--=--=--=--=--=--=--=--=--=--=--=--= --=--=--=--=--=--=--=--=--=--=--=--=-- Performing Laboratory: Bacteriology Report Performed By: [facility] [CLIA# [id number]] [place] [address] May 06, 2022 10:51 AM LR MICROBIOLOGY REPORT: [facility] Reporting Lab: [facility] [CLIA# [id number]] [place] [address] Accession [UID]: [id number] [[id number]] Receiv ed: May 06, 2022@11:32 Collection sample: [...] --=--=--=--=--=--=--=--=--=--=--=--=-- Performing Laboratory: Bacteriology Report Performed By: [facility] [CLIA# [id number]] [place] [address] May 06, 2022 10:34 AM LR MICROBIOLOGY REPORT: [facility] Reporting Lab: [facility] [CLIA# [id number]] [place] [address] Accession [UID]: [id number] [[id number]] Receiv ed: May 06, 2022@10:51 Collection sample: BLOOD Collection date: Apr 10:34 Provider: MODESTA VILLANUEVA Comment on specimen: RECEIVED 2 BLOOD CULTURE MILAN TTLES RAC Test(s) ordered: CULTURE & SUSCEPTIBILITY...... 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 Reporting Lab: [facility] [CLIA# [id number]] [place] [address] Accession [UID]: [id number] [[id number]] Receiv ed: May 06, 2022@10:41 Collection sample: [...] REPORT SEE PREVIOUS POSITIVE SAME MB 22 [id number] ( 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 from Anaerobic bottle ) ( Recovered from Aerobic bottle ) Bacteriology Remark(s): THIS REPORT IS FINAL =--=--=--=--=--=--=--=--=--=--=--=--=--= --=--=--=--=--=--=--=--=--=--=--=--=-- Performing Laboratory: Bacteriology Report Performed By: [facility] [CLIA# [id number]] [place] [address] Encounter Notes: All associated encounter notes This section contains the clinical notes associated to the Encounter. 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 Patient has been living at [facility] (contract [facility]) since 01/2022 OSH admission. All medicatio ns are supplied and managed/monitored by [facility] while admitted. Appears admission is for [facility] care. Identified by dashboard to review: - Medication renewal: renewal due w/in 30 days LABS ---- Age: 86 Height: Unavailable (04/30/2022 07:57) Weight: Unavailable (04/30/2022 07:57) BMI: BMI not available without height Collection DT Specimen Test Name Result Units Re f Range 04/30/2022 09:17 PLASMA CREATININE 1.2 mg/dL 0.7 - 1.2 02/02/2022 11:29 PLASMA CREATININE 1.7 H mg/dL 0 .7 - 1.2 09/20/2021 06:38 PLASMA CREATININE 1.7 H mg/dL 0 .7 - 1.2 06/21/2021 06:43 PLASMA CREATININE 1.4 H mg/dL 0 .7 - 1.2 03/22/2021 06:50 PLASMA CREATININE 1.5 H mg/dL 0 .7 - 1.2 09/06/2020 06:55 PLASMA CREATININE 1.5 H mg/dL 0 .7 - 1.2 02/29/2020 06:56 PLASMA CREATININE 1.6 H mg/dL 0 .7 - 1.2 10/02/2019 08:49 PLASMA CREATININE 1.5 H mg/dL 0 .7 - 1.2 Cockcroft & Gault (Actual body weight) = 80.5 mL /min Collection DT Spec WBC HGB HCT PLT MCV 04/30/2022 09:17 BLOOD 10.40 12.3 L 37.8 L 286 9 5.5 02/02/2022 11:29 BLOOD 9.18 13.1 L 40.9 L 284 93 .4 09/20/2021 06:38 BLOOD 9.17 12.0 L 37.9 L 298 90 .0 Collection DT Specimen Test Name Result Units Re f Range 04/02/2022 14:37 PLASMA BILIRUBIN, TOTAL 0.5 mg/ dL 0.2 - 1.2 04/02/2022 14:37 PLASMA ALKALINE PHOSPHAT 108 U/ L 40 - 150 04/02/2022 14:37 PLASMA AST/SGOT 18 U/L Ref: <=3 4 04/02/2022 14:37 PLASMA ALT/SGPT 24 U/L Ref: <=5 5 ASSESSMENT/PLAN: As patient should now be getting medications sup plied and managed/monitored through contract [facility], will no longer prescribe ri varoxaban or monitor therapy through [facility] anticoagulation clinic. PCP will need to enter a new consult if patient is discharged home and needs further rivaroxaban Rx filled through [facility]. Time spent: 5 min /ronni/ Leela Garber PharmD, [facility] Clinical Zoning Assistant Signed: 05/02/2022 08:31 Receipt Acknowledged By: 05/02/2022 08:33 /ronni/ Bill Gunter MD Physician
--- OUTSIDE RECORDS SUMMARY | 2022-05-15 09:26 | XMS_ITS | Encounter Summary ---
:1935 Author Organization [facility] rs Address [address] [place] [address] Support Name Relationship Address Phone WADE LORENZO Unavailable [phone] [place] [address] WADE LORENZO Unavailable [phone] [place] [address] JOANNA ARACELI Unavailable [phone] [place] [address] ARACELI MARSHALL Unavailable [phone] [place] [address] Insurance Providers: All historical and current Section [...] [place] Aug 19, [id number] Kristel EDDY [facility] (WNR) ADVANTAGE (WNR) 2016 8 [id number] [phone] [facility] [place] Aug 19, [id number] [address] EDDY [facility] (WNR) ADVANTAGE (WNR) 2016 8 [id number] [phone] [facility] 1 Selected Encounter This section includes the information on record at [place] for the Encounter. Date/Time Encounter Type Encounter Description Reason Provider Source May 05, 2022 12:00 Outpatient Encounter EVENT (HISTORICAL) AM IHE Encounter Template Text not used by MI Plan of Treatment: Future Appointments (+ 6 months) and Future Tests (+/- 45 days) The Plan of Treatment section includes future care activities for the [facility] This section includes future appointments and future orders which are active, pending orscheduled.Future Appointments This section includes appointments that were scheduled to occur 6 months from the date of the Encounter, up to a maximum of 20 appointments. The data comes from all [place] treatment [facility]. Appointment Date/Time Appointment Type Appointment Facili ty Name May 06, 2022 09:40 AM AMBULATORY - MEDICINE [facility] CS May 11, 2022 06:15 PM AMBULATORY - NONE [facility] Jul 23, 2022 08:00 AM AMBULATORY - NEUROLOGY [facility] Active, Pending, and Scheduled Orders This section includes a listing of several types of active, pending, and scheduled orders, including clinic medications orders, diagnostic test orders, procedure orders and consult orders; where the start date of the order is 45 days before the date of the Encounter or 45 days after the date of the Encounter. The data comes from all [facility]. Test Date/Time Test Type Test Details Facility Name Apr 30, 2022 08:21 Laboratory - Chemistry URINALYSIS URINE WC ON CE [facility] AM Order Apr 30, 2022 08:21 Laboratory - CULTURE & SUSCEPTIBILITY [facility] AM Microbiology Order URINE WC May 06, 2022 12:00 Laboratory - Blood ABO/RH - LAB BLOOD [facility] AM Bank Order May 06, 2022 10:11 Laboratory - Blood TYPE & SCREEN - LAB [facility] AM Bank Order BLOOD WC May 06, 2022 10:27 [facility] AM Medication Order May 06, 2022 10:28 [facility] AM Infusion Order May 06, 2022 10:34 [facility] AM Infusion Order May 06, 2022 10:41 [facility] AM Infusion Order May 06, 2022 12:15 [facility] PM Medication Order May 06, 2022 01:31 [facility] PM Medication Order May 06, 2022 04:49 [facility] PM Medication Order May 07, 2022 01:00 Laboratory - CULTURE & SUSCEPTIBILITY [facility] PM Microbiology Order BLOOD WC ONCE May 11, 2022 09:07 Laboratory - CULTURE & SUSCEPTIBILITY [facility] AM Microbiology Order BLOOD WC May 11, 2022 09:07 Laboratory - CULTURE & SUSCEPTIBILITY COREY WHALEY [facility] AM Microbiology Order BLOOD WC May 11, 2022 09:38 Laboratory - Chemistry EOSINOPHIL SMEAR,URINE [facility] AM Order URINE WC ONCE May 11, 2022 09:38 Laboratory - Chemistry FENA URINE WC ONCE MIN AUDRA [facility] AM Order May 11, 2022 09:38 Laboratory - Chemistry URINALYSIS URINE WC ON CE [facility] AM Order Lab Results: +/- 30 days of the encounter This section includes the Chemistry and Hematology Lab Results on record with MI for the patient. Radiology Reports and Pathology Reports are provided separately, in subsequent sections.Lab Results This section contains the Chemistry/Hematology Results that were resulted 30 days before or 30 daysafter the date of the Encounter. Date/Time Source Result Type Result - Unit Interpretation Reference Range Comment May 11, 2022 11:13 [facility] FINGERSTICK GLUCOSE Speci men Type: BLOOD AM Comment: Mark casillas Nurse Notified Ordering Provid er: CODIE LEON Report Released Date/Time: May 11, 2022 11:53 AM Reporting Lab: [facility] [address] [facility] [address] Performing Lab: [facility] [address] [facility] [address] FINGERSTICK GLUCOSE 367 H 70-100 May 11, 2022 07:05 [facility] LIVER FUNCTION TESTS Spec imen Type: PLASMA AM No comment enter ed. Ordering Provid er: CODIE LEON Report Released Date/Time: May 11, 2022 09:08 AM Reporting Lab: [facility] [address] [facility] [address] Performing Lab: [facility] [address] [facility] [address] BILIRUBIN, TOTAL 1.6 H 0.2-1.2 ALKALINE PHOSPHATASE 102 40-150 ALT/SGPT 42 <55 AST/SGOT 30 <34 GAMMA GTP 52 <64 DIR. BILIRUBIN 1.2 H <0.5 May 11, 2022 07:05 AM [facility] CK,TOTAL Specim en Type: PLASMA No comment enter ed. Ordering Provid er: CODIE LEON Report Released Date/Time: May 11, 2022 09:08 AM Reporting Lab: [facility] [address] [facility] [address] Performing Lab: [facility] [address] [facility] [address] CK,TOTAL 16 L 39-208 May 11, 2022 07:05 [facility] BASIC METABOLIC Specimen Type: PLASMA AM PANEL+MG No comment enter ed. Ordering Provid er: OG DIAL Report Released Date/Time: May 11, 2022 04:46 AM Reporting Lab: [facility] [address] [facility] [address] Performing Lab: [facility] [address] [facility] [address] CREATININE 1.6 H 0.7-1.2 UREA NITROGEN 28 H 8-26 GLUCOSE 396 H 70-100 SODIUM 150 H 136-145 POTASSIUM 3.7 3.5-5.1 CHLORIDE 120 H 98-107 CO2 23 22-29 CALCIUM 8.4 8.4-10.2 MAGNESIUM 2.1 1.6-2.6 ANION GAP 7 5-15 CREAT EGFR(CKD-EPI) 42 L >60 May 11, 2022 07:05 AM [facility] BNP Specim en Type: PLASMA No comment enter ed. Ordering Provid er: CODIE LEON Report Released Date/Time: May 11, 2022 09:15 AM Reporting Lab: [facility] [address] [facility] [address] Performing Lab: [facility] [address] [facility] [address] BNP 59 <99 May 11, 2022 07:05 AM [facility] CBC Specim en Type: BLOOD No comment enter ed. Ordering Provid er: OG DIAL Report Released Date/Time: May 11, 2022 04:46 AM Reporting Lab: [facility] [address] [facility] [address] Performing Lab: [facility] [address] [facility] [address] WBC 15.93 H 4.0-11.0 RBC 3.60 L 4.6-6.2 HGB 11.2 L 13.5-17.9 HCT 35.3 L 41-54 MCV 98.1 80-100 MCH 31.1 27-33 MCHC 31.7 L 32.0-37.5 PLT 231 150-400 MPV 11.2 H 7.4-10.4 RDW 15.2 H 11.5-14.5 May 11, 2022 06:14 [facility] FINGERSTICK GLUCOSE Speci men Type: BLOOD AM Comment: Mark casillas Nurse Notified Ordering Provid er: CODIE LEON Report Released Date/Time: May 11, 2022 06:42 AM Reporting Lab: [facility] [address] [facility] [address] Performing Lab: [facility] [address] [facility] [address] FINGERSTICK GLUCOSE 345 H 70-100 May 11, 2022 02:24 [facility] FINGERSTICK GLUCOSE Speci men Type: BLOOD AM Comment: Mark casillas Ordering Provid er: CODIE LEON Report Released Date/Time: May 11, 2022 02:44 AM Reporting Lab: [facility] [address] [facility] [address] Performing Lab: [facility] [address] [facility] [address] FINGERSTICK GLUCOSE 375 H 70-100 May 10, 2022 08:38 [facility] FINGERSTICK GLUCOSE Speci men Type: BLOOD PM Comment: Mark casillas Ordering Provid er: CODIE LEON Report Released Date/Time: May 11, 2022 12:31 AM Reporting Lab: [facility] [address] [facility] [address] Performing Lab: [facility] [address] [facility] [address] FINGERSTICK GLUCOSE 346 H 70-100 May 10, 2022 05:05 [facility] FINGERSTICK GLUCOSE Speci men Type: BLOOD PM Comment: Mark casillas Nurse Notified Ordering Provid er: CODIE LEON Report Released Date/Time: May 10, 2022 11:50 PM Reporting Lab: [facility] [address] [facility] [address] Performing Lab: [facility] [address] [facility] [address] FINGERSTICK GLUCOSE 245 H 70-100 May 10, 2022 02:00 [facility] VANCOMYCIN (TROUGH) Speci men Type: PLASMA PM No comment enter ed. Ordering Provid er: CODIE LEON Report Released Date/Time: May 11, 2022 01:34 AM Reporting Lab: [facility] [address] [facility] [address] Performing Lab: [facility] [address] [facility] [address] VANCOMYCIN (TROUGH) 31.8 H 10.0-15.0 May 10, 2022 [facility] BASIC METABOLIC Specimen Typ e: PLASMA 02:00 PM PANEL+MG No comment enter ed. Ordering Provid er: CODIE LEON Report Released Date/Time: May 11, 2022 01:34 AM Reporting Lab: [facility] [address] Performing Lab: [facility] [address] CREATININE 1.1 .7-1.2 UREA NITROGEN 22 8-26 GLUCOSE 279 H 70-100 SODIUM 150 H 136-145 POTASSIUM 3.2 L 3.5-5.1 CHLORIDE 116 H 98-107 CO2 23 22-29 CALCIUM 8.5 8.4-10.2 MAGNESIUM 2.0 1.6-2.6 ANION GAP 11 5-15 CREAT EGFR(CKD-EPI) 65 >60 May 10, 2022 01:20 PM [facility] CBC & DIFF Specim en Type: BLOOD Comment: Automa nola Differential Performed Ordering Provid er: MD ESTEBAN Report Released Date/Time: May 10, 2022 08:52 PM Reporting Lab: [facility] [address] Performing Lab: [facility] [address] WBC 16.24 H 4.0-11.0 RBC 3.76 L [...] 0.28 H 0-0.1 May 10, 2022 11:07 [facility] FINGERSTICK GLUCOSE Speci men Type: BLOOD AM Comment: Mark casillas Nurse Notified Ordering Provid er: CODIE LEON Report Released Date/Time: May 11, 2022 12:31 AM Reporting Lab: [facility] [address] [facility] [address] Performing Lab: [facility] [address] [facility] [address] FINGERSTICK GLUCOSE 253 H 70-100 May 10, 2022 06:16 [facility] FINGERSTICK GLUCOSE Speci men Type: BLOOD AM Comment: Mark casillas Nurse Notified Ordering Provid er: CODIE LEON Report Released Date/Time: May 10, 2022 11:50 PM Reporting Lab: [facility] [address] [facility] [address] Performing Lab: [facility] [address] [facility] [address] FINGERSTICK GLUCOSE 271 H 70-100 May 09, 2022 09:07 [facility] FINGERSTICK GLUCOSE Speci men Type: BLOOD PM Comment: Mark casillas Ordering Provid er: CODIE LEON Report Released Date/Time: May 10, 2022 11:50 PM Reporting Lab: [facility] [address] [facility] [address] Performing Lab: [facility] [address] [facility] [address] FINGERSTICK GLUCOSE 209 H 70-100 May 09, 2022 05:33 [facility] FINGERSTICK GLUCOSE Speci men Type: BLOOD PM Comment: Mark casillas Nurse Notified Ordering Provid er: CODIE LEON Report Released Date/Time: May 09, 2022 05:53 PM Reporting Lab: [facility] [address] [facility] [address] Performing Lab: [facility] [address] [facility] [address] FINGERSTICK GLUCOSE 251 H 70-100 May 09, 2022 02:09 [facility] VANCOMYCIN (PEAK) Specime n Type: SERUM PM No comment enter ed. Ordering Provid er: AMARIS DE JESUS Report Released Date/Time: May 09, 2022 09:33 AM Reporting Lab: [facility] [address] [facility] [address] Performing Lab: [facility] [address] [facility] [address] VANCOMYCIN (PEAK) 24.2 20.0-40.0 May 09, 2022 11:19 [facility] FINGERSTICK GLUCOSE Speci men Type: BLOOD AM Comment: Mark casillas Nurse Notified Ordering Provid er: CODIE LEON Report Released Date/Time: May 09, 2022 11:38 AM Reporting Lab: [facility] [address] [facility] [address] Performing Lab: [facility] [address] [facility] [address] FINGERSTICK GLUCOSE 240 H 70-100 May 09, 2022 08:13 [facility] VANCOMYCIN (TROUGH) Speci men Type: SERUM AM No comment enter ed. Ordering Provid er: AMARIS DE JESUS Report Released Date/Time: May 08, 2022 11:14 AM Reporting Lab: [facility] [address] [facility] [address] Performing Lab: [facility] [address] [facility] [address] VANCOMYCIN (TROUGH) 16.1 H 10.0-15.0 May 09, 2022 05:33 AM [facility] CBC & DIFF Specim en Type: BLOOD Comment: Automa nola Differential Performed Ordering Provid er: CODIE LEON Report Released Date/Time: May 08, 2022 05:27 PM Reporting Lab: [facility] [address] [facility] [address] Performing Lab: [facility] [address] [facility] [address] WBC 14.92 H 4.0-11.0 RBC 3.41 L [...] GRAN 0.16 H 0-0.1 May 09, 2022 [facility] COMPREHENSIVE METABOLIC Spec imen Type: PLASMA 05:32 AM PANEL+MG No comment enter ed. Ordering Provid er: CODIE LEON Report Released Date/Time: May 08, 2022 05:27 PM Reporting Lab: [facility] [address] [facility] [address] Performing Lab: [facility] [address] [facility] [address] CREATININE 1.2 0.7-1.2 UREA NITROGEN 25 8-26 [...] 59 L >60 May 09, 2022 05:16 [facility] FINGERSTICK GLUCOSE Speci men Type: BLOOD AM Comment: Mark casillas Nurse Notified Ordering Provid er: CODIE LEON Report Released Date/Time: May 09, 2022 07:27 AM Reporting Lab: [facility] [address] Performing Lab: [facility] [address] FINGERSTICK GLUCOSE 295 H 70-100 May 08, 2022 09:32 PM [facility] EXTRA MINT TUBE Specim en Type: PLASMA No comment enter ed. Ordering Provid er: MD ESTEBAN Report Released Date/Time: May 08, 2022 09:32 PM Reporting Lab: [facility] [address] [facility] [address] Performing Lab: [facility] [address] [facility] [address] EXTRA MINT TUBE RECEIVED May 08, 2022 09:32 PM [facility] EXTRA PURPLE TUBE Spec imen Type: BLOOD No comment enter ed. Ordering Provid er: MD ESTEBAN Report Released Date/Time: May 08, 2022 09:32 PM Reporting Lab: [facility] [address] [facility] [address] Performing Lab: [facility] [address] [facility] [address] EXTRA PURPLE TUBE RECEIVED May 08, 2022 09:32 [facility] EXTRA GOLD GEL TUBE Speci men Type: SERUM PM No comment enter ed. Ordering Provid er: MD ESTEBAN Report Released Date/Time: May 08, 2022 09:32 PM Reporting Lab: [facility] [address] [facility] [address] Performing Lab: [facility] [address] [facility] [address] EXTRA GOLD GEL TUBE RECEIVED May 08, 2022 09:32 PM [facility] EXTRA BLUE TUBE Specim en Type: PLASMA No comment enter ed. Ordering Provid er: MD ESTEBAN Report Released Date/Time: May 08, 2022 09:32 PM Reporting Lab: [facility] [address] [facility] [address] Performing Lab: [facility] [address] [facility] [address] EXTRA BLUE TUBE RECEIVED May 08, 2022 09:32 PM [facility] EXTRA BRASWELL TUBE Specim en Type: PLASMA No comment enter ed. Ordering Provid er: MD ESTEBAN Report Released Date/Time: May 08, 2022 09:37 PM Reporting Lab: [facility] [address] [facility] [address] Performing Lab: [facility] [address] [facility] [address] EXTRA BRASWELL TUBE RECEIVED May 08, 2022 09:32 PM [facility] BNP Specim en Type: PLASMA No comment enter ed. Ordering Provid er: OG DIAL Report Released Date/Time: May 08, 2022 09:50 PM Reporting Lab: [facility] [address] [facility] [address] Performing Lab: [facility] [address] [facility] [address] BNP 897 H <99 May 08, 2022 09:32 PM [facility] LACTIC ACID Specim en Type: PLASMA No comment enter ed. Ordering Provid er: OG DIAL Report Released Date/Time: May 08, 2022 09:49 PM Reporting Lab: [facility] [address] [facility] [address] Performing Lab: [facility] [address] [facility] [address] LACTIC ACID 2.5 H 0.5-2.2 May 08, 2022 09:32 PM [facility] CBC Specim en Type: BLOOD No comment enter ed. Ordering Provid er: OG DIAL Report Released Date/Time: May 08, 2022 09:50 PM Reporting Lab: [facility] [address] Performing Lab: [facility] [address] WBC 18.54 H 4.0-11.0 RBC 3.68 L 4.6-6.2 HGB 11.5 L 13.5-17.9 HCT 35.1 L 41-54 MCV 95.4 80-100 MCH 31.3 27-33 MCHC 32.8 32.0-37.5 PLT 221 150-400 MPV 11.1 H 7.4-10.4 RDW 14.9 H 11.5-14.5 May 08, 2022 09:32 PM [facility] BLOOD GASES Specim en Type: VENOUS BLOOD Comment: O2 THE RAPY = 3L PM Ordering Provid er: OG DIAL Report Released Date/Time: May 08, 2022 09:50 PM Reporting Lab: [facility] [address] Performing Lab: [facility] [address] PH 7.36 7.33-7.43 PCO2 47 41-51 BICARBONATE 24.4 21.0-30.0 PO2 31 L 35-40 OXYGEN SATURATION 54.7 L 70.0-75.0 PH(TEMP CORRECTED) 7.37 7.33-7.43 PCO2(TEMP CORRECTED) 46 41-51 PO2(TEMP CORRECTED) 31 L 35-40 PATIENT TEMPERATURE 36.7 May 08, 2022 [facility] COMPREHENSIVE METABOLIC Spec imen Type: PLASMA 09:32 PM PANEL+MG No comment enter ed. Ordering Provid er: OG DIAL Report Released Date/Time: May 08, 2022 09:50 PM Reporting Lab: [facility] [address] Performing Lab: [facility] [address] CREATININE 1.3 H 0.7-1.2 UREA NITROGEN 26 [...] 54 L >60 May 08, 2022 08:27 [facility] FINGERSTICK GLUCOSE Speci men Type: BLOOD PM Comment: Mark casillas Nurse Notified Ordering Provid er: CODIE LEON Report Released Date/Time: May 08, 2022 08:55 PM Reporting Lab: [facility] [address] [facility] [address] Performing Lab: [facility] [address] [facility] [address] FINGERSTICK GLUCOSE 272 H 70-100 May 08, 2022 06:56 [facility] FINGERSTICK GLUCOSE Speci men Type: BLOOD PM Comment: Mark casillas Ordering Provid er: CODIE LEON Report Released Date/Time: May 08, 2022 07:08 PM Reporting Lab: [facility] [address] [facility] [address] Performing Lab: [facility] [address] [facility] [address] FINGERSTICK GLUCOSE 262 H 70-100 May 08, 2022 04:50 [facility] FINGERSTICK GLUCOSE Speci men Type: BLOOD PM Comment: Nurse Notified Ordering Provid er: CODIE LEON Report Released Date/Time: May 08, 2022 05:14 PM Reporting Lab: [facility] [address] [facility] [address] Performing Lab: [facility] [address] [facility] [address] FINGERSTICK GLUCOSE 330 H 70-100 May 08, 2022 11:21 [facility] FINGERSTICK GLUCOSE Speci men Type: BLOOD AM Comment: Mark casillas Nurse Notified Ordering Provid er: CODIE LEON Report Released Date/Time: May 08, 2022 11:51 AM Reporting Lab: [facility] [address] [facility] [address] Performing Lab: [facility] [address] [facility] [address] FINGERSTICK GLUCOSE 231 H 70-100 May 08, 2022 07:25 AM [facility] CBC & DIFF Specim en Type: BLOOD Comment: Automa nola Differential Performed Ordering Provid er: BETO AYALA Report Released Date/Time: May 07, 2022 12:28 PM Reporting Lab: [facility] [address] Performing Lab: [facility] [address] [facility] [address] WBC 16.29 H 4.0-11.0 RBC 3.38 L [...] GRAN 0.26 H 0-0.1 May 08, 2022 [facility] PROTHROMBIN TIME/INR Specime n Type: PLASMA 07:25 AM No comment enter ed. Ordering Provid er: BETO AYALA Report Released Date/Time: May 07, 2022 12:28 PM Reporting Lab: [facility] [address] [facility] [address] Performing Lab: [facility] [address] .INR 1.2 H 0.8-1.1 .PT 14.2 H 9.4-12.5 May 08, 2022 [facility] COMPREHENSIVE METABOLIC Spec imen Type: PLASMA 07:25 AM PANEL+MG No comment enter ed. Ordering Provid er: BETO AYALA Report Released Date/Time: May 07, 2022 12:28 PM Reporting Lab: [facility] [address] [facility] [address] Performing Lab: [facility] [address] CREATININE 1.1 0.7-1.2 UREA NITROGEN 27 H [...] EGFR(CKD-EPI) 65 >60 May 08, 2022 06:53 [facility] FINGERSTICK GLUCOSE Speci men Type: BLOOD AM Comment: Mark casillas Ordering Provid er: CODIE LEON Report Released Date/Time: May 08, 2022 07:18 AM Reporting Lab: [facility] [address] [facility] [address] Performing Lab: [facility] [address] [facility] [address] FINGERSTICK GLUCOSE 276 H 70-100 May 07, 2022 08:36 [facility] FINGERSTICK GLUCOSE Speci men Type: BLOOD PM Comment: Nurse Notified Ordering Provid er: CODIE LEON Report Released Date/Time: May 08, 2022 12:29 AM Reporting Lab: [facility] [address] [facility] [address] Performing Lab: [facility] [address] [facility] [address] FINGERSTICK GLUCOSE 282 H 70-100 May 07, 2022 07:04 PM [facility] LACTIC ACID Specim en Type: PLASMA No comment enter ed. Ordering Provid er: BETO AYALA Report Released Date/Time: May 07, 2022 06:28 PM Reporting Lab: [facility] [address] [facility] [address] Performing Lab: [facility] [address] [facility] [address] LACTIC ACID 2.0 0.5-2.2 May 07, 2022 04:46 [facility] FINGERSTICK GLUCOSE Speci men Type: BLOOD PM Comment: Nurse Notified Ordering Provid er: BETO AYALA Report Released Date/Time: May 07, 2022 05:00 PM Reporting Lab: [facility] [address] [facility] [address] Performing Lab: [facility] [address] [facility] [address] FINGERSTICK GLUCOSE 274 H 70-100 May 07, 2022 12:47 [facility] FINGERSTICK GLUCOSE Speci men Type: BLOOD PM Comment: Mark casillas Nurse Notified Ordering Provid er: BETO AYALA Report Released Date/Time: May 07, 2022 05:32 PM Reporting Lab: [facility] [address] [facility] [address] Performing Lab: [facility] [address] [facility] [address] FINGERSTICK GLUCOSE 309 H 70-100 May 07, 2022 06:35 [facility] FINGERSTICK GLUCOSE Speci men Type: BLOOD AM Comment: Mark casillas Nurse Notified Ordering Provid er: GAYLA DOMINGUEZ Report Released Date/Time: May 07, 2022 06:46 AM Reporting Lab: [facility] [address] [facility] [address] Performing Lab: [facility] [address] [facility] [address] FINGERSTICK GLUCOSE 352 H 70-100 May 07, 2022 06:15 AM [facility] ALBUMIN Specim en Type: PLASMA No comment enter ed. Ordering Provid er: GAYLA DOMINGUEZ Report Released Date/Time: May 06, 2022 06:33 PM Reporting Lab: [facility] [address] [facility] [address] Performing Lab: [facility] [address] [facility] [address] ALBUMIN 3.0 L 3.5-5.2 May 07, 2022 [facility] COMPREHENSIVE METABOLIC Spec imen Type: PLASMA 06:15 AM PANEL+MG No comment enter ed. Ordering Provid er: GAYLA DOMINGUEZ Report Released Date/Time: May 06, 2022 09:11 PM Reporting Lab: [facility] [address] [facility] [address] Performing Lab: [facility] [address] [facility] [address] CREATININE 1.2 0.7-1.2 UREA NITROGEN 25 8-26 [...] L >60 May 07, 2022 06:15 AM [facility] CBC & DIFF Specim en Type: BLOOD Comment: Manual Differential Performed Ordering Provid er: GAYLA DOMINGUEZ Report Released Date/Time: May 06, 2022 09:11 PM Reporting Lab: [facility] [address] Performing Lab: [facility] [address] WBC 20.25 H 4.0-11.0 RBC 3.54 L [...] NORMOCYTIC, NORMOCHROMIC May 07, 2022 12:19 AM [facility] LACTIC ACID Specim en Type: PLASMA No comment enter ed. Ordering Provid er: GAYLA DOMINGUEZ Report Released Date/Time: May 06, 2022 07:13 PM Reporting Lab: [facility] [address] [facility] [address] Performing Lab: [facility] [address] LACTIC ACID 2.7 H 0.5-2.2 May 06, 2022 10:45 [facility] FINGERSTICK GLUCOSE Speci men Type: BLOOD PM Comment: Save R esult Nurse Notified Ordering Provid er: GAYLA DOMINGUEZ Report Released Date/Time: May 07, 2022 12:08 AM Reporting Lab: [facility] [address] [facility] [address] Performing Lab: [facility] [address] [facility] [address] FINGERSTICK GLUCOSE 320 H 70-100 May 06, 2022 06:53 [facility] MRSA SURVL NARES Specimen Type: NARES PM DNA No comment enter ed. Ordering Provid er: GAYLA DOMINGUEZ Report Released Date/Time: May 06, 2022 06:33 PM Reporting Lab: [facility] [address] [facility] [address] Performing Lab: [facility] [address] [facility] [address] MRSA SURVL NARES DNA POSITIVE HH Negative May 06, 2022 06:51 PM [facility] LACTIC ACID Specim en Type: PLASMA No comment enter ed. Ordering Provid er: GAYLA DOMINGUEZ Report Released Date/Time: May 06, 2022 06:04 PM Reporting Lab: [facility] [address] [facility] [address] Performing Lab: [facility] [address] [facility] [address] LACTIC ACID 3.1 H 0.5-2.2 May 06, 2022 06:51 [facility] CARDIAC TROPONIN I Specim en Type: PLASMA PM No comment enter ed. Ordering Provid er: GAYLA DOMINGUEZ Report Released Date/Time: May 06, 2022 06:05 PM Reporting Lab: [facility] [address] [facility] [address] Performing Lab: [facility] [address] [facility] [address] CARDIAC TROPONIN I <0.028 <0.028 May 06, 2022 06:51 [facility] EXTRA GOLD GEL TUBE Speci men Type: SERUM PM No comment enter ed. Ordering Provid er: GAYLA DOMINGUEZ Report Released Date/Time: May 06, 2022 06:52 PM Reporting Lab: [facility] [address] [facility] [address] Performing Lab: [facility] [address] [facility] [address] EXTRA GOLD GEL TUBE RECEIVED May 06, 2022 06:51 [facility] C-REACTIVE PROTEIN Specim en Type: PLASMA PM No comment enter ed. Ordering Provid er: GAYLA DOMINGUEZ Report Released Date/Time: May 06, 2022 09:29 PM Reporting Lab: [facility] [address] [facility] [address] Performing Lab: [facility] [address] C-REACTIVE PROTEIN 392.40 H <5.00 May 06, 2022 10:51 AM [facility] URINALYSIS Specim en Type: URINE No comment enter ed. Ordering Provid er: MODESTA VILLANUEVA Report Released Date/Time: May 06, 2022 10:11 AM Reporting Lab: [facility] [address] Performing Lab: [facility] [address] URINE COLOR YELLOW SPECIFIC GRAVITY 1.020 1.003-1.035 [...] ESTERASE 500 NEGATIVE May 06, 2022 10:24 [facility] COVID-19 DIAGNOSTIC Speci men Type: NASOPHARYNGEAL AM PANEL (CEPHEID) Comment: Cephei d GeneXpert (618) Ordering Provid er: MODESTA VILLANUEVA Report Released Date/Time: May 06, 2022 10:11 AM Reporting Lab: [facility] [address] Performing Lab: [facility] [address] COVID-19 (CEPHEID) Not Detected Not Dete cted May 06, 2022 10:20 AM [facility] POC ABG/LACTATE Specim en Type: VENOUS BLOOD No comment enter ed. Ordering Provid er: MODESTA VILLANUEVA Report Released Date/Time: May 06, 2022 10:22 AM Reporting Lab: [facility] [address] Performing Lab: [facility] [address] POC PH 7.410 7.31-7.41 POC PCO2 28.9 L 35.00-45.00 POC PO2 82 H 35.0-40.0 POC TCO2 19 L 24.0-29.0 POC HCO3 18.3 L 23.0-28.0 POC BE ECT -6 L -2 POC SO2 96 H 70-75 POC LACTATE 3.62 0.90-1.70 May 06, 2022 10:00 AM [facility] PHOSPHORUS Specim en Type: PLASMA No comment enter ed. Ordering Provid er: MODESTA VILLANUEVA Report Released Date/Time: May 06, 2022 10:11 AM Reporting Lab: [facility] [address] [facility] [address] Performing Lab: [facility] [address] [facility] [address] PHOSPHORUS 2.5 2.3-4.7 May 06, 2022 10:00 [facility] ACT PART THROMBO TIME Spe cimen Type: PLASMA AM No comment enter ed. Ordering Provid er: MODESTA VILLANUEVA Report Released Date/Time: May 06, 2022 10:11 AM Reporting Lab: [facility] [address] [facility] [address] Performing Lab: [facility] [address] [facility] [address] APTT 37.8 H 25.1-36.5 May 06, 2022 10:00 [facility] PROTHROMBIN TIME/INR Spec imen Type: PLASMA AM No comment enter ed. Ordering Provid er: MODESTA VILLANUEVA Report Released Date/Time: May 06, 2022 10:11 AM Reporting Lab: [facility] [address] [facility] [address] Performing Lab: [facility] [address] [facility] [address] .INR 2.5 H 0.8-1.1 .PT 29.2 H 9.4-12.5 May 06, 2022 10:00 [facility] CARDIAC TROPONIN I Specim en Type: PLASMA AM Comment: Critic al Value Reported To: BROOKS COTE 05-06-2022 @1053 BY MBImmanuel. Critical value report confirmed. Ordering Provid er: MODESTA VILLANUEVA Report Released Date/Time: May 06, 2022 10:11 AM Reporting Lab: [facility] [address] [facility] [address] Performing Lab: [facility] [address] [facility] [address] CARDIAC TROPONIN I 0.035 HH <0.028 May 06, 2022 10:00 AM [facility] PROCALCITONIN Specim en Type: PLASMA No comment enter ed. Ordering Provid er: MODESTA VILLANUEVA Report Released Date/Time: May 06, 2022 10:11 AM Reporting Lab: [facility] [address] [facility] [address] Performing Lab: [facility] [address] [facility] [address] PROCALCITONIN 22.29 H <0.09 May 06, 2022 10:00 AM [facility] LIPASE Specim en Type: PLASMA No comment enter ed. Ordering Provid er: MODESTA VILLANUEVA Report Released Date/Time: May 06, 2022 10:11 AM Reporting Lab: [facility] [address] [facility] [address] Performing Lab: [facility] [address] [facility] [address] LIPASE <4 <60 May 06, 2022 [facility] COMPREHENSIVE METABOLIC Spec imen Type: PLASMA 10:00 AM PANEL+MG Comment: Manual Differential Performed Ordering Provid er: MODESTA VILLANUEVA Report Released Date/Time: May 06, 2022 10:11 AM Reporting Lab: [facility] [address] [facility] [address] Performing Lab: [facility] [address] [facility] [address] CREATININE 1.3 H 0.7-1.2 UREA NITROGEN 25 [...] 54 L >60 May 06, 2022 10:00 [facility] EXTRA GOLD GEL TUBE Speci men Type: SERUM AM No comment enter ed. Ordering Provid er: LINNEA RAND Report Released Date/Time: May 06, 2022 10:25 AM Reporting Lab: [facility] [address] [facility] [address] Performing Lab: [facility] [address] [facility] [address] EXTRA GOLD GEL TUBE RECEIVED May 06, 2022 10:00 AM [facility] CBC & DIFF Specim en Type: BLOOD Comment: Manual Differential Performed Ordering Provid er: MODESTA VILLANUEVA Report Released Date/Time: May 06, 2022 10:11 AM Reporting Lab: [facility] [address] [facility] [address] Performing Lab: [facility] [address] [facility] [address] WBC 18.82 H 4.0-11.0 RBC 3.70 L [...] .RBC MORPHOLOGY PRESENT May 06, 2022 09:46 [facility] FINGERSTICK GLUCOSE Speci men Type: BLOOD AM Comment: Mark casillas Nurse Notified Ordering Provid er: MODESTA VILLANUEVA Report Released Date/Time: May 06, 2022 09:59 AM Reporting Lab: [facility] [address] [facility] [address] Performing Lab: [facility] [address] [facility] [address] FINGERSTICK GLUCOSE 369 H 70-100 Apr 30, 2022 09:17 AM [facility] CBC Specim en Type: BLOOD No comment enter ed. Ordering Provid er: BILL ROONEY Report Released Date/Time: Apr 30, 2022 08:21 AM Reporting Lab: [facility] [address] [facility] [address] Performing Lab: [facility] [address] [facility] [address] WBC 10.40 4.0-11.0 RBC 3.96 L 4.6-6.2 HGB 12.3 L 13.5-17.9 HCT 37.8 L 41-54 MCV 95.5 80-100 MCH 31.1 27-33 MCHC 32.5 32.0-37.5 PLT 286 150-400 MPV 10.1 7.4-10.4 RDW 14.6 H 11.5-14.5 Apr 30, 2022 [facility] BASIC METABOLIC Specimen Typ e: PLASMA 09:17 AM PANEL+MG No comment enter ed. Ordering Provid er: BILL ROONEY Report Released Date/Time: Apr 30, 2022 08:21 AM Reporting Lab: [facility] [address] [facility] [address] Performing Lab: [facility] [address] [facility] [address] CREATININE 1.2 0.7-1.2 UREA NITROGEN 26 8-26 GLUCOSE 140 H 70-100 SODIUM 138 136-145 POTASSIUM 3.8 3.5-5.1 CHLORIDE 107 98-107 CO2 20 L 22-29 CALCIUM 9.4 8.4-10.2 MAGNESIUM 1.7 1.6-2.6 ANION GAP 11 5-15 CREAT EGFR(CKD-EPI) 59 L >60 Social History: Smoking Status (Most current) and Tobacco Use (All prior to encounter date) This section includes the most current, and the historical, smoking and tobacco-related health factors from the [place] facility where the Encounter took place.Current Smoking Status This section includes the most current smoking, or tobacco-related health factor, from the [place] facility where the Encounter took place. Date/Time Current Smoking Status Comment Facility Feb 02, 2022 09:30 AM [place]-TOBACCO NEVER USED [place] [facility] Tobacco Use History This section includes a history of the smoking, or tobacco- related health factors, that were collected on or before the date of the Encounter. The data comes from the [place] facility where the Encounter took place. Date/Time Smoking Status/Tobacco Use Comment [facility] Mar 22, 2021 07:45 AM VA-TOBACCO NEVER USED [place] [facility] Oct 02, 2019 10:02 AM VA-TOBACCO NEVER USED [place] [facility] May 21, 2018 09:05 AM VA-TOBACCO NEVER USED [place] [facility] [...] ALL of a patient's completed or amended [place] Advance and Rescinded Directives. The entries below indicate that a directive exists for the patient, but an actual copy is not included with this document. The data comes from all [facility]. Date Advance Directives Provider Source Apr 18, 2018 ADVANCE DIRECTIVE LARISSA SIGALA [facility] Apr 18, 2018 ADVANCE DIRECTIVE DISCUSSION LARISSA SIGALA [facility] December 23, 2017 CLINICAL WARNING FARHAT [...] the Encounter. The data comes from all [place] treatment facilities. Date/Time Radiology Report Provider Source May 11, 2022 09:46 CHEST 1 VIEW: SONJA OVALLES [facility] AM LUISANA EDDY [id number] -1935 M Exm Date: MAY 11, 2022@09:46 Req Phys: CODIE LEON Loc: OP Unknown /05-13-2022@05:05 Img Loc: MAIN X-RAY Service: PRIMARY CARE - MED OFFICE (Case [id number] COMPLETE) CHEST 1 VIEW (RAD Detailed) CPT:51905 Proc Modifiers : PORTABLE EXAM Reason for [...] 2022 Date Verified: MAY 11, 2022 Warehouse Driver E-Sig:/ES/SONJA OVALLES MD Report: CHEST 1 VIEW [...] Interpreting Staff: SONJA OVALLES MD, RADIOLOGIST (Warehouse Driver) /CDC May 10, 2022 03:49 CT HEAD (P): RADIOLOGY,OUTSIDE [facility] LU[place]NA EDDY [id number] -1935 M SERVICE Exm Date: MAY 10, 2022@15:49 Req Phys: CODIE LEON Loc: OP Unknown /05-13-2022@05:05 Img Loc: CT IMAGING Service: PRIMARY CARE - MED OFFICE (Case [id number] COMPLETE) CT HEAD/BRAIN W/O CONTRAST (CT Detailed) CPT:15363 Reason for Study: CHANGE IN MENTAL STATUS Clinical History: CHANGE IN MENTAL STATUS. ORDER ADMINISTRATIVELY ENTERED FOLLOWING SYSTEM OUTAGE. Report Status: Verified Date Reported: MAY 10, 2022 Date Verified: MAY 10, 2022 Warehouse Driver E-Sig: Report: CT HEAD/BRAIN W/O CONTRAST [PRINTSET] HISTORY: Change in mental status. COMPARISON: CT from 05/07/2022. TECHNIQUE: Contiguous axial CT images from the level of the skull base through the skull apex, with coronal and s agittal reformats, performed at the local [place] facility. 321 images were received by the [place] National Teleradiology Program (NTP) for interpretation. RADIATION [...] prior study. READING PHYSICIAN: Akash Mccoy M.D. [id number] 05/10/2022 17:35 PDT [facility] National Teleradiology Program [phone] (For Medical Practitioner Use Only ) Attention Patients / Veterans: If you have ques tions or concerns about these test results, please contact your o rdering provider or primary care team. Primary Interpreting Staff: RADIOLOGY,OUTSIDE SERVICE, Staff Physician / May 08, 2022 07:45 CT T-SPINE (P): RADIOLOGY,OUTSIDE [facility] PM LUISANA EDDY [id number] -1935 M SERVICE Exm Date: MAY 08, 2022@19:45 Req Phys: CODIE LEON Loc: OP Unknown /05-13-2022@05:05 Img Loc: CT IMAGING Service: PRIMARY CARE - MED OFFICE (Case [id number] COMPLETE) CT SPINE THORACIC W/O CONTR AST (CT Detailed) CPT:35156 Reason for Study: mrsa bacteremia, spinal surge ry - r/o abscess or discitis Clinical History: IS NOT under investigation for COVID-19 or is COVID-19 negative Defer to radiologist for final CT protocol. Responsible provider name and phone number to n otify for critical findings if other than user placing the order a nd pager listed below: User placing orders pager: [phone] LAST 3: Collection DT Specimen Test Name [...] GFR (eGF 44 L Ref: >=60 Allergies: (Casar only) SIMVASTATIN (Feb 29, 2004) CEPHALEXIN (Mar 01, 2004) Report Status: Verified Date Reported: MAY 08, 2022 Date Verified: MAY 08, 2022 Warehouse Driver E-Sig: Report: CT SPINE THORACIC W/O CONTRAST [PRINTSET] HISTORY:MRSA bacteremia NUMBER OF IMAGES:1151 COMPARISON: Correlation with images from recent CT abdomen and pelvis May 06, 2022 TECHNIQUE: A non contrast CT of the thoracic sp ine was performed at the local [place]. Images were subsequently sent to [facility] for interpretation. Axial, coronal and sagittal [...] thoracic level. READING PHYSICIAN: Luisana Webb MD -[id number] 05/08/2022 19:20 PDT [facility] reQallradiology Program [phone] (For Medical Practitioner Use Only ) Attention Patients / Veterans: If you have ques tions or concerns about these test results, please contact your o [facility] provider or primary care team. Primary Interpreting Staff: RADIOLOGY,OUTSIDE SERVICE, Staff Physician / May 08, 2022 04:48 CHEST 1 VIEW: RADIOLOGY,OUTSIDE [facility] PM LUISANA EDDY [id number] -1935 M SERVICE Exm Date: MAY 08, 2022@16:48 Req Phys: CODIE LEON Loc: OP Unknown /05-13-2022@05:05 Img Loc: MAIN X-RAY Service: PRIMARY CARE - MED OFFICE (Case [id number] COMPLETE) CHEST 1 VIEW (RAD Detailed) CPT:06423 Proc Modifiers : PORTABLE EXAM Reason for Study: dyspnea Clinical History: IS NOT under investigation for COVID-19 or is COVID-19 negative acute worsening of dyspnea Responsible provider name and phone number to notify for critical findings if other than user placing the order and pager listed below: User placing orders pager: [phone] malini cell [phone] LAST CREATININE 1.1 (05/08/22) Report Status: Verified Date Reported: MAY 08, 2022 Date Verified: MAY 08, 2022 Warehouse Driver E-Sig: Report: CHEST 1 VIEW HISTORY: dyspnea COMPARISON: 05/06/2022 TECHNIQUE: Frontal view(s) of the chest, submit nola to the [place] National Teleradiology Program (NTP) for interp retation. FINDINGS: Reduced lung volumes. Progressive cardiomegaly, and vascular congestion as well as diffuse interstitial prom inence with probable small effusions. Impression: Expiratory exam with findings of CHF and mild e santa READING PHYSICIAN: Nghia Menjivar M.D. -[id number] 10 05/08/2022 18:57 EDT [facility] National Teleradiology Program [phone] (For Medical Practitioner Use Only ) Attention Patients / Veterans: If you have ques tions or concerns about these test results, please contact your o rdering provider or primary care team. Primary Interpreting Staff: RADIOLOGY,OUTSIDE SERVICE, Staff Physician / May 07, 2022 10:29 CT HEAD (P): SHANI POLANCO [facility] AM LUISANA EDDY [id number] -1935 M Exm Date: MAY 07, 2022@10:29 Req Phys: BETO AYALA Loc: OP Unknown/0 05-13-2022@05:05 [facility] Loc: CT IMAGING Service: PRIMARY CARE - MED OFFICE (Case [id number] COMPLETE) CT HEAD/BRAIN W/O CONTRAST ( CT Detailed) CPT:03472 Reason for Study: seizure noted at [facility] Clinical History: [place] IS NOT under investigation for COVID-19 or is COVID-19 negative Defer to radiologist for final CT protocol. Responsible provider name and phone number to n otify for critical findings if other than user placing the order a nd pager listed below: User placing orders pager: [phone] LAST 3: Collection DT Specimen Test Name [...] GFR (eGF 44 L Ref: >=60 Allergies: (Casar only) SIMVASTATIN (Feb 29, 2004) CEPHALEXIN (Mar 01, 2004) Report Status: Verified Date Reported: MAY 07, 2022 Date Verified: MAY 07, 2022 Warehouse Driver E-Sig:/ES/SHANI POLANCO MD Report: EXAM: CT HEAD/BRAIN [...] lis nola below: User placing orders pager: [phone] LAST 3: Collecti on DT Specimen Test [...] Interpreting Staff: SHANI POLANCO MD, RADIOLOGIST (Warehouse Driver) /Javed May 06, 2022 11:40 CHEST 1 VIEW: RADIOLOGY,OUTSIDE [facility] LUISANA EDDY [id number] -1935 M SERVICE Exm Date: MAY 06, 2022@11:40 Req Phys: MODESTA VILLANUEVA Loc: [facility] EMERGENCY DEPT WALK-IN (Re Img Loc: MAIN X-RAY Service: Unknown (Case 73 COMPLETE) CHEST 1 VIEW (RAD Detailed) C PT:98187 Proc Modifiers : PORTABLE EXAM Reason for [...] pager listed below: User placing orders pager: [phone] LAST CREATININE 1.2 (04/30/22) Report Status: Verified Date Reported: MAY 06, 2022 Date Verified: MAY 06, 2022 Warehouse Driver E-Sig: Report: Technique: Frontal chest. No comparison Impression: Cardiac silhouette is mildly enlarged. There is mild pulmonary venous congestion. No definite pleural effusion . No pneumothorax seen. READING PHYSICIAN: Vern Donnelly M.D. -[id number] 07 05/06/2022 13:26 EDT [facility] [email or web address] Teleradiology Program [phone] (For Medical Practitioner Use Only ) Attention Patients / Veterans: If you have ques tions or concerns about these test results, please contact your o rdering provider or primary care team. Primary Interpreting Staff: RADIOLOGY,OUTSIDE SERVICE, Staff Physician / May 06, 2022 10:36 CT (AP) ABDOMEN/PELVIS (P): RADIOLOGY,OUTSIDE [facility] AM LUISAAN EDDY [id number] -1935 M SERVICE Exm Date: MAY 06, 2022@10:36 Req Phys: MODESTA VILLANUEVA Loc: [facility] EMERGENCY DEPT WALK-IN (Re Img Loc: CT IMAGING Service: Unknown (Case [id number] COMPLETE) CT (AP) ABDOMEN/PELVIS W CONT RAST(CT Detailed) CPT:94115 Reason for Study: fever, back pain Clinical History: fever, back pain, ecchymosis left low back consideration for intra-abdominal process, aort ic changes, LS spine trauma, kidney inflammation, GI or obs truction [place] IS under investigation ([facility]) for COVID- 19 or is COVID-19+ Defer to radiologist for final CT protocol. Please enter pertinent clinical history on the next page. Responsible provider name and phone number to n otify for critical findings if other than user placing the order a nd pager listed below: User placing orders pager: [phone] LAST 3: Collection DT Specimen Test Name [...] ESTIMATED GFR(eGF 44 L Ref: >=60 Allergies: ([place] only) SIMVASTATIN (Feb 29, 2004) CEPHALEXIN (Mar 01, 2004) To see allergies from all [facility] locations click Re ports tab>Remote Data>All Available Sites>Clinical Reports>Aller gies. Report Status: Verified Date Reported: MAY 06, 2022 Date Verified: MAY 06, 2022 Warehouse [employer] E-Sig: Report: Exam: CT (AP) ABDOMEN/PELVIS W CONTRAST [PRINTS ET] Clinical History: fever, back pain Number of images: 918 Comparison: No priors available Technique: The study was protocoled and supervi sed at the local [place] facility. CT of the abdomen and pelvis was performed afte r the uneventful administration of iodinated contrast. Images we re received by the [employer] National Teleradiology Program (NTP) for interpretation. Total [...] findings, above. READING PHYSICIAN: Eduin Donaldson M.D. -[phone] 05/06/2022 12:48 [facility] National Teleradiology Program [phone] (For Medical Practitioner Use Only ) Attention Patients / Veterans: If you have ques tions or concerns about these test results, please contact your o rdering provider or primary care team. Primary Interpreting Staff: RADIOLOGY,OUTSIDE SERVICE, Staff Physician / May 06, 2022 10:35 CT HEAD/BRAIN W/O CONTRAST: RADIOLOGY,OUTSIDE [facility] AM LUISANA EDDY [id number] -1935 M SERVICE Exm Date: MAY 06, 2022@10:35 Req Phys: MODESTA VILLANUEVA Loc: [facility] EMERGENCY DEPT WALK-IN (Re Img Loc: CT IMAGING Service: Unknown (Case 64 COMPLETE) CT HEAD/BRAIN W/O CONTRAST (C T Detailed) CPT:05038 Reason for Study: falls, blood thinner, AMS, se izure Clinical History: falls, blood thinner, AMS, seizure IS under investigation (PUI) for COVID- 19 or is COVID-19+ Defer to radiologist for final CT protocol. Responsible provider name and phone number to n otify for critical findings if other than user placing the order a nd pager listed below: User placing orders pager: [phone] LAST 3: Collection DT Specimen Test Name [...] ESTIMATED GFR(eGF 44 L Ref: >=60 Allergies: (Casar only) SIMVASTATIN (Feb 29, 2004) CEPHALEXIN (Mar 01, 2004) To see allergies from all [place] locations click Re ports tab>Remote Data>All Available Sites>Clinical Reports>Lashon king. Report Status: Verified Date Reported: MAY 06, 2022 Date Verified: MAY 06, 2022 Warehouse Driver E-Sig: Report: CT HEAD/BRAIN W/O CONTRAST Clinical History: falls, blood thinner, AMS, se izure Number of Images: 532 Comparison: 03/12/2022 Technique: The study was protocoled and supervi sed at the local [place] facility. CT of the head without contrast. I mages were subsequently received by the [place] National Telera diology Program (NTP) for interpretation. [...] T findings. READING PHYSICIAN: Eduin Donaldson M.D. -[phone] 05/06/2022 12:30 [facility] National Teleradiology Program [phone] (For Medical Practitioner Use Only ) Attention Patients / Veterans: If you have ques tions or concerns about these test results, [facility] team. Primary Interpreting Staff: RADIOLOGY,OUTSIDE SERVICE, Staff Physician / May 06, 2022 10:35 CT CERVICAL SPINE W/O CONTRAST: RADIOLOGY,OUT SIDE [facility] AM LUISANA EDDY [id number] -1935 M SERVICE Exm Date: MAY 06, 2022@10:35 Req Phys: MODESTA VILLANUEVA Loc: [facility] EMERGENCY DEPT WALK-IN (Re Img Loc: CT IMAGING Service: Unknown (Case 65 COMPLETE) CT CERVICAL SPINE W/O CONTRAS T (CT Detailed) CPT:96389 Reason for Study: falls, blood thinner, AMS, se izure Clinical History: falls, blood thinner, AMS, seizure [place] IS under investigation (PUI) for COVID- 19 or is COVID-19+ Defer to radiologist for final CT protocol. Responsible provider name and phone number to n otify for critical findings if other than user placing the order a nd pager listed below: User placing orders pager: [phone] LAST 3: Collection DT Specimen Test Name [...] ESTIMATED GFR(eGF 44 L Ref: >=60 Allergies: (Casar only) SIMVASTATIN (Feb 29, 2004) CEPHALEXIN (Mar 01, 2004) To see allergies from all [facility] locations click Re ports tab>Remote Data>All Available Sites>Clinical Reports>[facility] gironni. Report Status: Verified Date Reported: MAY 06, 2022 Date Verified: MAY 06, 2022 Warehouse Driver E-Sig: Report: CT CERVICAL SPINE W/O CONTRAST HISTORY:falls, blood thinner, AMS, seizure NUMBER OF IMAGES:770 COMPARISON: None available. TECHNIQUE: A non contrast CT of the cervical sp ine [facility]. Images were subsequently sent to [facility] for interpretation. Axial, coronal and sagittal [...] findings, above. READING PHYSICIAN: Eduin Donaldson M.D. -[phone] 05/06/2022 12:33 [facility] National Teleradiology Program [phone] (For Medical Practitioner Use Only ) Attention [...] the Encounter. The data comes from all [place] treatment facilities. Date/Time Pathology Report Provider Source May 09, 2022 05:30 AM LR MICROBIOLOGY REPORT: [facility] Reporting Lab: [facility] [CLIA# [id number]] [place] [address] Accession [UID]: [id number] [[id number]] Receiv ed: May 09, 2022@01:35 Collection sample: BLOOD Collection date: Apr 05:30 Provider: CODIE LEON Comment on specimen: LEFT ARM, RECEIVED 2 BLOOD CULTURE BOTTLES Test(s) ordered: CULTURE & SUSCEPTIBILITY...... 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 R TRIMETH/SULFA................. S TETRACYCLINE.................. S CLINDAMYCIN................... S RIFAMPIN...................... S VANCOMYCIN.................... S Bacteriology Remark(s): VANCOMYCIN SHAMIKA: <=0.5 ug/mL THIS REPORT IS FINAL =--=--=--=--=--=--=--=--=--=--=--=--=--= --=--=--=--=--=--=--=--=--=--=--=--=-- Performing Laboratory: Bacteriology Report Performed By: [facility] [CLIA# [id number]] [place] [address] May 08, 2022 03:23 PM LR MICROBIOLOGY REPORT: [facility] Reporting Lab: [facility] [CLIA# [id number]] [place] [address] Accession [UID]: [id number] [[id number]] Receiv ed: May 08, 2022@15:41 Collection sample: BLOOD Collection date: Apr 15:23 Provider: CODIE LEON Comment on specimen: LEFT ARM, RECEIVED 2 BLOOD CULTURE BOTTLES Test(s) ordered: CULTURE & SUSCEPTIBILITY...... completed: May 10, 2022 * BACTERIOLOGY FINAL REPORT => May 10, 2022 16:3 1 TECH CODE: [id number] CULTURE RESULTS: GROWTH SAME THAT OF ANOTHER CULTURE Comment: FOR SUSCEPTIBILITY REPORT SEE PREVIOUS POSITIVE SAME MB 22 [id number] ( 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 from Anaerobic bottle ) ( Recovered from Aerobic bottle ) Bacteriology Remark(s): THIS REPORT IS FINAL =--=--=--=--=--=--=--=--=--=--=--=--=--= --=--=--=--=--=--=--=--=--=--=--=--=-- Performing Laboratory: Bacteriology Report Performed By: [facility] [CLIA# [id number]] [place] [address] May 08, 2022 03:21 PM LR MICROBIOLOGY REPORT: [facility] Reporting Lab: [facility] [CLIA# [id number] 147] [place] [address] Accession [UID]: [id number] [[id number]] Receiv ed: May 08, 2022@15:40 Collection sample: BLOOD Collection date: Apr 15:21 Provider: CODIE LEON Comment on specimen: RT ARM, RECEIVED 2 BLOOD CU LTURE BOTTLES Test(s) ordered: CULTURE & SUSCEPTIBILITY...... completed: May 10, 2022 * BACTERIOLOGY FINAL REPORT => May 10, 2022 16:3 1 TECH CODE: [id number] CULTURE RESULTS: GROWTH SAME THAT OF ANOTHER CULTURE Comment: FOR SUSCEPTIBILITY REPORT SEE PREVIOUS POSITIVE SAME LUIS MIGUEL 22 [id number] ( 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 from Anaerobic bottle ) ( Recovered from Aerobic bottle ) Bacteriology Remark(s): THIS REPORT IS FINAL =--=--=--=--=--=--=--=--=--=--=--=--=--= --=--=--=--=--=--=--=--=--=--=--=--=-- Performing Laboratory: Bacteriology Report Performed By: [facility] [CLIA# [id number]] [place] [address] May 07, 2022 05:30 AM LR MICROBIOLOGY REPORT: [facility] Reporting Lab: [facility] [CLIA# [id number]] [place] [address] Accession [UID]: [id number] [[id number]] Receiv ed: May 07, 2022@01:35 Collection sample: [...] SEE PREVIOUS POSITIVE SAME LUIS MIGUEL 22 [id number] ( 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 from Aerobic bottle ) ( Recovered from Anaerobic bottle ) Bacteriology Remark(s): THIS REPORT IS FINAL =--=--=--=--=--=--=--=--=--=--=--=--=--= --=--=--=--=--=--=--=--=--=--=--=--=-- Performing Laboratory: Bacteriology Report Performed By: [facility] [CLIA# [id number]] [place] [address] May 06, 2022 10:51 AM LR MICROBIOLOGY REPORT: [facility] Reporting Lab: [facility] [CLIA# [id number]] [place] [address] Accession [UID]: [id number] [[id number]] Receiv ed: May 06, 2022@11:32 Collection sample: [...] --=--=--=--=--=--=--=--=--=--=--=--=-- Performing Laboratory: Bacteriology Report Performed By: [facility] [CLIA# [id number]] [place] [address] May 06, 2022 10:34 AM LR MICROBIOLOGY REPORT: [facility] Reporting Lab: [facility] [CLIA# [id number] 147] [place] [address] Accession [UID]: [id number] [[id number]] Receiv ed: May 06, 2022@10:51 Collection sample: BLOOD Collection date: Apr 10:34 Provider: MODESTA VILLANUEVA Comment on specimen: RECEIVED 2 BLOOD [facility] Test(s) ordered: CULTURE & SUSCEPTIBILITY...... completed: May 07, 2022 * BACTERIOLOGY FINAL REPORT => May 08, 2022 08:3 0 TECH CODE: [id number] CULTURE RESULTS: STAPHYLOCOCCUS AUREUS METHICILL IN RESISTANT [...] --=--=--=--=--=--=--=--=--=--=--=--=-- Performing Laboratory: Bacteriology Report Performed By: [facility] [CLIA# [id number]] [place] [address] May 06, 2022 10:00 AM LR MICROBIOLOGY [facility] Reporting Lab: [facility] [CLIA# [id number] 147] [place] [address] Accession [UID]: [id number] [[id number]] Receiv ed: May 06, 2022@10:41 Collection sample: [...] REPORT SEE PREVIOUS POSITIVE SAME MB 22 [id number] ( 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 from Anaerobic bottle ) ( Recovered from Aerobic bottle ) Bacteriology Remark(s): THIS REPORT IS FINAL =--=--=--=--=--=--=--=--=--=--=--=--=--= --=--=--=--=--=--=--=--=--=--=--=--=-- Performing Laboratory: Bacteriology Report Performed By: [facility] [CLIA# [id number]] [place] [address]
--- OUTSIDE RECORDS SUMMARY | 2022-05-15 09:26 | XMS_ITS | Encounter Summary ---
:1935 Author Organization [facility] Address [address] [place] [address] Support Name Relationship Address Phone WADE LORENZO Unavailable [id number] [place] [address] WADE LORENZO Unavailable [address] [place] [address] TREYGEORGE ARACELI Unavailable [address] [place] [address] JOANNA ARACELI Unavailable [address] [place] [address] Insurance Providers: All historical and current Section [...] [place] M[place] Aug 19, [id number] [facility] (WNR) ADVANTAGE (WNR) 2017 8 [id number] [phone] [facility] 1 [place] MEDICARE MCR Aug 19, [id number] Kristel ED[facility] (WNR) ADVANTAGE (WNR) 2016 8 [id number] [phone] [facility] 1 Selected Encounter This section includes the information on record at [place] for the Encounter. Date/Time Encounter Type Encounter Reason Provider Source Description May 06, 2022 EMERGENCY DEPT EMERGENCY DEPT ICD-10-CM A41.9 Kristel GALDAMEZ 09:40 AM VISIT Sepsis, N J unspecified organism with Provider Comments: Sepsis, unspecified Organism IHE Encounter Template Text not used by [place] Assessments - Encounter Diagnoses This section includes the primary and secondary diagnoses documented for the Encounter. Date/Time Primary/Secondary Diagnosis Name Provider Source Diagnosis May 07, 2022 PRIMARY Sepsis, MODESTA VILLANUEVA 04:48 PM unspecified HCS organism Plan of Treatment: Future Appointments (+ 6 months) and Future Tests (+/- 45 days) The Plan of Treatment section includes future care activities for the patient from all [place] treatment[facility] hospital. This section includes future appointments and future orders which are active, pending orscheduled.Future Appointments This section includes appointments that were scheduled to occur 6 months from the date of the Encounter, up to a maximum of 20 appointments. The data comes from all [place] treatment facilities. Appointment Date/Time Appointment Type Appointment Facili ty Name May 11, 2022 06:15 PM AMBULATORY - NONE [facility] Jul 23, 2022 08:00 AM AMBULATORY - NEUROLOGY [facility] Active, Pending, and Scheduled Orders This section includes a listing of several types of active, pending, and scheduled orders, including clinic medications orders, diagnostic test orders, procedure orders and consult orders; where the start date of the order is 45 days before the date of the Encounter or 45 days after the date of the Encounter. The data comes from all [place] treatment facilities. Test Date/Time Test Type Test Details Facility Name Apr 30, 2022 08:21 Laboratory - Chemistry URINALYSIS URINE WC ON CE [facility] AM Order Apr 30, 2022 08:21 Laboratory - CULTURE & SUSCEPTIBILITY [facility] AM Microbiology Order URINE WC May 06, 2022 12:00 Laboratory - Blood ABO/RH - LAB BLOOD [facility] AM Bank Order May 06, 2022 10:11 Laboratory - Blood TYPE & SCREEN - LAB [facility] AM Bank Order BLOOD WC May 06, 2022 10:27 Pharmacy [facility] AM Medication Order May 06, 2022 10:28 [facility] AM Infusion Order May 06, 2022 10:34 [facility] AM Infusion Order May 06, 2022 10:41 Pharmacy [facility] AM Infusion Order May 06, 2022 12:15 [facility]acy [facility] PM Medication Order May 06, 2022 01:31 Pharmacy [facility] PM Medication Order May 06, 2022 04:49 Pharmacy - Clinic [facility] PM Medication Order May 07, 2022 01:00 Laboratory - CULTURE & SUSCEPTIBILITY [facility] PM Microbiology Order BLOOD WC ONCE May 11, 2022 09:07 Laboratory - CULTURE & SUSCEPTIBILITY [facility] AM Microbiology Order BLOOD WC May 11, 2022 09:07 Laboratory - CULTURE & SUSCEPTIBILITY [facility] AM Microbiology Order BLOOD WC May 11, 2022 09:38 Laboratory - Chemistry EOSINOPHIL SMEAR,URINE [facility] AM Order URINE WC ONCE May 11, 2022 09:38 Laboratory - Chemistry URINALYSIS URINE WC ON CE [facility] AM Order May 11, 2022 09:38 Laboratory - Chemistry FENA URINE WC ONCE [facility] AM Order Lab Results: +/- 30 days of the encounter This section includes the Chemistry and Hematology Lab Results on record with [place] for the patient. Radiology Reports and Pathology Reports are provided separately, in subsequent sections.Lab Results This section contains the Chemistry/Hematology Results that were resulted 30 days before or 30 daysafter the date of the Encounter. Date/Time Source Result Type Result - Unit Interpretation Reference Range Comment May 11, 2022 11:13 [facility] FINGERSTICK GLUCOSE Speci men Type: BLOOD AM Comment: Mark casillas Nurse Notified Ordering Provid er: CODIE LEON Report Released Date/Time: May 11, 2022 11:53 AM Reporting Lab: [facility] [address] [facility] [address] Performing Lab: [facility] [address] [facility] [address] FINGERSTICK GLUCOSE 367 H 70-100 May 11, 2022 07:05 [facility] BASIC METABOLIC Specimen Type: PLASMA AM PANEL+MG No comment enter ed. Ordering Provid er: OG DIAL Report Released Date/Time: May 11, 2022 04:46 AM Reporting Lab: [facility] [address] [facility] [address] Performing Lab: [facility] [address] [address] CREATININE 1.6 H 0.7-1.2 UREA NITROGEN 28 H 8-26 GLUCOSE 396 H 70-100 SODIUM 150 H 136-145 POTASSIUM 3.7 3.5-5.1 CHLORIDE 120 H 98-107 CO2 23 22-29 CALCIUM 8.4 8.4-10.2 MAGNESIUM 2.1 1.6-2.6 ANION GAP 7 5-15 CREAT EGFR(CKD-EPI) 42 L >60 May 11, 2022 07:05 AM [facility] CK,TOTAL Specim en Type: PLASMA No comment enter ed. Ordering Provid er: CODIE LEON Report Released Date/Time: May 11, 2022 09:08 AM Reporting Lab: [facility] [address] [facility] [address] Performing Lab: [facility] [address] [facility] [address] CK,TOTAL 16 L 39-208 May 11, 2022 07:05 AM [facility] CBC Specim en Type: BLOOD No comment enter ed. Ordering Provid er: OG DIAL Report Released Date/Time: May 11, 2022 04:46 AM Reporting Lab: [facility] [address] [facility] [address] Performing Lab: [facility] [address] [facility] [address] WBC 15.93 H 4.0-11.0 RBC 3.60 L 4.6-6.2 HGB 11.2 L 13.5-17.9 HCT 35.3 L 41-54 MCV 98.1 80-100 MCH 31.1 27-33 MCHC 31.7 L 32.0-37.5 PLT 231 150-400 MPV 11.2 H 7.4-10.4 RDW 15.2 H 11.5-14.5 May 11, 2022 07:05 AM [facility] BNP Specim en Type: PLASMA No comment enter ed. Ordering Provid er: CODIE LEON Report Released Date/Time: May 11, 2022 09:15 AM Reporting Lab: [facility] [address] [facility] [address] Performing Lab: [facility] [address] [facility] [address] BNP 59 <99 May 11, 2022 07:05 [facility] LIVER FUNCTION TESTS Spec imen Type: PLASMA AM No comment enter ed. Ordering Provid er: CODIE LEON Report Released Date/Time: May 11, 2022 09:08 AM Reporting Lab: [facility] [address] [facility] [address] Performing Lab: [facility] [address] [facility] [address] BILIRUBIN, TOTAL 1.6 H 0.2-1.2 ALKALINE PHOSPHATASE 102 40-150 ALT/SGPT 42 <55 AST/SGOT 30 <34 GAMMA GTP 52 <64 DIR. BILIRUBIN 1.2 H <0.5 May 11, 2022 06:14 [facility] FINGERSTICK GLUCOSE Speci men Type: BLOOD AM Comment: Mark casillas Nurse Notified Ordering Provid er: CODIE LEON Report Released Date/Time: May 11, 2022 06:42 AM Reporting Lab: [facility] [address] [facility] [address] Performing Lab: [facility] [address] [facility] [address] FINGERSTICK GLUCOSE 345 H 70-100 May 11, 2022 02:24 [facility] FINGERSTICK GLUCOSE Speci men Type: BLOOD AM Comment: Mark casillas Ordering Provid er: CODIE LEON Report Released Date/Time: May 11, 2022 02:44 AM Reporting Lab: [facility] [address] [facility] [address] Performing Lab: [facility] [address] [facility] [address] FINGERSTICK GLUCOSE 375 H 70-100 May 10, 2022 08:38 [facility] FINGERSTICK GLUCOSE Speci men Type: BLOOD PM Comment: Mark casillas Ordering Provid er: CODIE LEON Report Released Date/Time: May 11, 2022 12:31 AM Reporting Lab: [facility] [address] [facility] [address] Performing Lab: [facility] [address] [facility] [address] FINGERSTICK GLUCOSE 346 H 70-100 May 10, 2022 05:05 [facility] FINGERSTICK GLUCOSE Speci men Type: BLOOD PM Comment: Mark casillas Nurse Notified Ordering Provid er: CODIE LEON Report Released Date/Time: May 10, 2022 11:50 PM Reporting Lab: [facility] [address] [facility] [address] Performing Lab: [facility] [address] [facility] [address] FINGERSTICK GLUCOSE 245 H 70-100 May 10, 2022 02:00 [facility] VANCOMYCIN (TROUGH) Speci men Type: PLASMA PM No comment enter ed. Ordering Provid er: CODIE LEON Report Released Date/Time: May 11, 2022 01:34 AM Reporting Lab: [facility] [address] Performing Lab : [facility] [address] VANCOMYCIN (TROUGH) 31.8 H 10.0-15.0 May 10, 2022 [facility] BASIC METABOLIC Specimen Typ e: PLASMA 02:00 PM PANEL+MG No comment enter ed. Ordering Provid er: CODIE LEON Report Released Date/Time: May 11, 2022 01:34 AM Reporting Lab: [facility] [address] Performing Lab: [facility] [address] CREATININE 1.1 .7-1.2 UREA NITROGEN 22 8-26 GLUCOSE 279 H 70-100 SODIUM 150 H 136-145 POTASSIUM 3.2 L 3.5-5.1 CHLORIDE 116 H 98-107 CO2 23 22-29 CALCIUM 8.5 8.4-10.2 MAGNESIUM 2.0 1.6-2.6 ANION GAP 11 5-15 CREAT EGFR(CKD-EPI) 65 >60 May 10, 2022 01:20 PM [facility] CBC & DIFF Specim en Type: BLOOD Comment: Automa nola Differential Performed Ordering Provid er: MD ESTEBAN Report Released Date/Time: May 10, 2022 08:52 PM Reporting Lab: [facility] [address] Performing Lab: [facility] [address] WBC 16.24 H 4.0-11.0 RBC 3.76 L [...] 0.28 H 0-0.1 May 10, 2022 11:07 [facility] FINGERSTICK GLUCOSE Speci men Type: BLOOD AM Comment: Mark casillas Nurse Notified Ordering Provid er: CODIE LEON Report Released Date/Time: May 11, 2022 12:31 AM Reporting Lab: [facility] [address] [facility] [address] Performing Lab: [facility] [address] [facility] [address] FINGERSTICK GLUCOSE 253 H 70-100 May 10, 2022 06:16 [facility] FINGERSTICK GLUCOSE Speci men Type: BLOOD AM Comment: Mark casillas Nurse Notified Ordering Provid er: CODIE LEON Report Released Date/Time: May 10, 2022 11:50 PM Reporting Lab: [facility] [address] [facility] [address] Performing Lab: [facility] [address] [facility] [address] FINGERSTICK GLUCOSE 271 H 70-100 May 09, 2022 09:07 [facility] FINGERSTICK GLUCOSE Speci men Type: BLOOD PM Comment: Mark casillas Ordering Provid er: CODIE LEON Report Released Date/Time: May 10, 2022 11:50 PM Reporting Lab: [facility] [address] [facility] [address] Performing Lab: [facility] [address] [facility] [address] FINGERSTICK GLUCOSE 209 H 70-100 May 09, 2022 05:33 [facility] FINGERSTICK GLUCOSE Speci men Type: BLOOD PM Comment: Mark casillas Nurse Notified Ordering Provid er: CODIE LEON Report Released Date/Time: May 09, 2022 05:53 PM Reporting Lab: [facility] [address] [facility] [address] Performing Lab: [facility] [address] [facility] [address] FINGERSTICK GLUCOSE 251 H 70-100 May 09, 2022 02:09 [facility] VANCOMYCIN (PEAK) Specime n Type: SERUM PM No comment enter ed. Ordering Provid er: AMARIS DE JESUS Report Released Date/Time: May 09, 2022 09:33 AM Reporting Lab: [facility] [address] [facility] [address] Performing Lab: [facility] [address] [facility] [address] VANCOMYCIN (PEAK) 24.2 20.0-40.0 May 09, 2022 11:19 [facility] FINGERSTICK GLUCOSE Speci men Type: BLOOD AM Comment: Mark casillas Nurse Notified Ordering Provid er: CODIE LEON Report Released Date/Time: May 09, 2022 11:38 AM Reporting Lab: [facility] [address] [facility] [address] Performing Lab: [facility] [address] [facility] [address] FINGERSTICK GLUCOSE 240 H 70-100 May 09, 2022 08:13 [facility] VANCOMYCIN (TROUGH) Speci men Type: SERUM AM No comment enter ed. Ordering Provid er: AMARIS DE JESUS Report Released Date/Time: May 08, 2022 11:14 AM Reporting Lab: [facility] [address] [facility] [address] Performing Lab: [facility] [address] [facility] [address] VANCOMYCIN (TROUGH) 16.1 H 10.0-15.0 May 09, 2022 05:33 AM [facility] CBC & DIFF Specim en Type: BLOOD Comment: Automa nola Differential Performed Ordering Provid er: CODIE LEON Report Released Date/Time: May 08, 2022 05:27 PM Reporting Lab: [facility] [address] [facility] [address] Performing Lab: [facility] [address] [facility] [address] WBC 14.92 H 4.0-11.0 RBC 3.41 L [...] GRAN 0.16 H 0-0.1 May 09, 2022 [facility] COMPREHENSIVE METABOLIC Spec imen Type: PLASMA 05:32 AM PANEL+MG No comment enter ed. Ordering Provid er: CODIE LEON Report Released Date/Time: May 08, 2022 05:27 PM Reporting [facility] [address] Performing Lab: [facility] [address] CREATININE 1.2 0.7-1.2 UREA NITROGEN 25 8-26 [...] 59 L >60 May 09, 2022 05:16 [facility] FINGERSTICK GLUCOSE Speci men Type: BLOOD AM Comment: Mark casillas Nurse Notified Ordering Provid er: CODIE LEON Report Released Date/Time: May 09, 2022 07:27 AM Reporting Lab: [facility] [address] [facility] [address] Performing Lab: [facility] [address] [facility] [address] FINGERSTICK GLUCOSE 295 H 70-100 May 08, 2022 09:32 PM [facility] EXTRA MINT TUBE Specim en Type: PLASMA No comment enter ed. Ordering Provid er: MD ESTEBAN Report Released Date/Time: May 08, 2022 09:32 PM Reporting Lab: [facility] [address] [facility] [address] Performing Lab: [facility] [address] EXTRA MINT TUBE RECEIVED May 08, 2022 09:32 PM [facility] EXTRA PURPLE TUBE Spec imen Type: BLOOD No comment enter ed. Ordering Provid er: MD ESTEBAN Report Released Date/Time: May 08, 2022 09:32 PM Reporting Lab: [facility] [address] [facility] [address] Performing Lab: [facility] [address] [facility] [address] EXTRA PURPLE TUBE RECEIVED May 08, 2022 09:32 [facility] EXTRA GOLD GEL TUBE Speci men Type: SERUM PM No comment enter ed. Ordering Provid er: MD ESTEBAN Report Released Date/Time: May 08, 2022 09:32 PM Reporting Lab: [facility] [address] [facility] [address] Performing Lab: [facility] [address] [facility] [address] EXTRA GOLD GEL TUBE RECEIVED May 08, 2022 09:32 PM [facility] EXTRA BLUE TUBE Specim en Type: PLASMA No comment enter ed. Ordering Provid er: MD ESTEBAN Report Released Date/Time: May 08, 2022 09:32 PM Reporting Lab: [facility] [address] [facility] [address] Performing Lab: [facility] [address] [facility] [address] EXTRA BLUE TUBE RECEIVED May 08, 2022 09:32 PM [facility] EXTRA BRASWELL TUBE Specim en Type: PLASMA No comment enter ed. Ordering Provid er: MD ESTEBAN Report Released Date/Time: May 08, 2022 09:37 PM Reporting Lab: [facility] [address] [facility] [address] Performing Lab: [facility] [address] [facility] [address] EXTRA BRASWELL TUBE RECEIVED May 08, 2022 09:32 PM [facility] LACTIC ACID Specim en Type: PLASMA No comment enter ed. Ordering Provid er: OG DIAL Report Released Date/Time: May 08, 2022 09:49 PM Reporting Lab: [facility] [address] [facility] [address] Performing Lab: [facility] [address] [facility] [address] LACTIC ACID 2.5 H 0.5-2.2 May 08, 2022 09:32 PM [facility] BNP Specim en Type: PLASMA No comment enter ed. Ordering Provid er: OG DIAL Report Released Date/Time: May 08, 2022 09:50 PM Reporting Lab: [facility] [address] [facility] [address] Performing Lab: [facility] [address] BNP 897 H <99 May 08, 2022 09:32 PM [facility] BLOOD GASES Specim en Type: VENOUS BLOOD Comment: O2 THE RAPY = 3L PM Ordering Provid er: OG DIAL Report Released Date/Time: May 08, 2022 09:50 PM Reporting Lab: [facility] [address] Performing Lab: [facility] [address] PH 7.36 7.33-7.43 PCO2 47 41-51 BICARBONATE 24.4 21.0-30.0 PO2 31 L 35-40 OXYGEN SATURATION 54.7 L 70.0-75.0 PH(TEMP CORRECTED) 7.37 7.33-7.43 PCO2(TEMP CORRECTED) 46 41-51 PO2(TEMP CORRECTED) 31 L 35-40 PATIENT TEMPERATURE 36.7 May 08, 2022 [facility] COMPREHENSIVE METABOLIC Spec imen Type: PLASMA 09:32 PM PANEL+MG No comment enter ed. Ordering Provid er: OG DIAL Report Released Date/Time: May 08, 2022 09:50 PM Reporting Lab: [facility] [address] Performing Lab: [facility] [address] CREATININE 1.3 H 0.7-1.2 UREA NITROGEN 26 [...] L >60 May 08, 2022 09:32 PM [facility] CBC Specim en Type: BLOOD No comment enter ed. Ordering Provid er: OG DIAL Report Released Date/Time: May 08, 2022 09:50 PM Reporting Lab: [facility] [address] [facility] [address] Performing Lab: [facility] [address] [facility] [address] WBC 18.54 H 4.0-11.0 RBC 3.68 L 4.6-6.2 HGB 11.5 L 13.5-17.9 HCT 35.1 L 41-54 MCV 95.4 80-100 MCH 31.3 27-33 MCHC 32.8 32.0-37.5 PLT 221 150-400 MPV 11.1 H 7.4-10.4 RDW 14.9 H 11.5-14.5 May 08, 2022 08:27 [facility] FINGERSTICK GLUCOSE Speci men Type: BLOOD PM Comment: Mark casillas Nurse Notified Ordering Provid er: CODIE LEON Report Released Date/Time: May 08, 2022 08:55 PM Reporting Lab: [facility] [address] [facility] [address] Performing Lab: [facility] [address] [facility] [address] FINGERSTICK GLUCOSE 272 H 70-100 May 08, 2022 06:56 [facility] FINGERSTICK GLUCOSE Speci men Type: BLOOD PM Comment: Mark casillas Ordering Provid er: CODIE LEON Report Released Date/Time: May 08, 2022 07:08 PM Reporting Lab: [facility] [address] [facility] [address] Performing Lab: [facility] [address] [facility] [address] FINGERSTICK GLUCOSE 262 H 70-100 May 08, 2022 04:50 [facility] FINGERSTICK GLUCOSE Speci men Type: BLOOD PM Comment: Nurse Notified Ordering Provid er: CODIE LEON Report Released Date/Time: May 08, 2022 05:14 PM Reporting Lab: [facility] [address] [facility] [address] Performing Lab: [facility] [address] [facility] [address] FINGERSTICK GLUCOSE 330 H 70-100 May 08, 2022 11:21 [facility] FINGERSTICK GLUCOSE Speci men Type: BLOOD AM Comment: Mark casillas Nurse Notified Ordering Provid er: CODIE LEON Report Released Date/Time: May 08, 2022 11:51 AM Reporting Lab: [facility] [address] Performing Lab: [facility] [address] FINGERSTICK GLUCOSE 231 H 70-100 May 08, 2022 07:25 AM [facility] CBC & DIFF Specim en Type: BLOOD Comment: Automa nola Differential Performed Ordering Provid er: BETO AYALA Report Released Date/Time: May 07, 2022 12:28 PM Reporting Lab: [facility] [address] Performing Lab: [facility] [address] WBC 16.29 H 4.0-11.0 RBC 3.38 L [...] GRAN 0.26 H 0-0.1 May 08, 2022 [facility] PROTHROMBIN TIME/INR Specime n Type: PLASMA 07:25 AM No comment enter ed. Ordering Provid er: BETO AYALA Report Released Date/Time: May 07, 2022 12:28 PM Reporting Lab: [facility] [address] Performing Lab: [facility] [address] .INR 1.2 H 0.8-1.1 .PT 14.2 H 9.4-12.5 May 08, 2022 [facility] COMPREHENSIVE METABOLIC Spec imen Type: PLASMA 07:25 AM PANEL+MG No comment enter ed. Ordering Provid er: BETO AYALA Report Released Date/Time: May 07, 2022 12:28 PM Reporting Lab: [facility] [address] [facility] [address] Performing Lab: [facility] [address] [facility] [address] CREATININE 1.1 0.7-1.2 UREA NITROGEN 27 H [...] EGFR(CKD-EPI) 65 >60 May 08, 2022 06:53 [facility] FINGERSTICK GLUCOSE Speci men Type: BLOOD AM Comment: Mark casillas Ordering Provid er: CODIE LEON Report Released Date/Time: May 08, 2022 07:18 AM Reporting Lab: [facility] [address] [facility] [address] Performing Lab: [facility] [address] [facility] [address] FINGERSTICK GLUCOSE 276 H 70-100 May 07, 2022 08:36 [facility] FINGERSTICK GLUCOSE Speci men Type: BLOOD PM Comment: Nurse Notified Ordering Provid er: CODIE LEON Report Released Date/Time: May 08, 2022 12:29 AM Reporting Lab: [facility] [address] [facility] [address] Performing Lab: [facility] [address] [facility] [address] FINGERSTICK GLUCOSE 282 H 70-100 May 07, 2022 07:04 PM [facility] LACTIC ACID Specim en Type: PLASMA No comment enter ed. Ordering Provid er: BETO AYALA Report Released Date/Time: May 07, 2022 06:28 PM Reporting Lab: [facility] [address] [facility] [address] Performing Lab: [facility] [address] [facility] [address] LACTIC ACID 2.0 0.5-2.2 May 07, 2022 04:46 [facility] FINGERSTICK GLUCOSE Speci men Type: BLOOD PM Comment: Nurse Notified Ordering Provid er: BETO AYALA Report Released Date/Time: May 07, 2022 05:00 PM Reporting Lab: [facility] [address] [facility] [address] Performing Lab: [facility] [address] [facility] [address] FINGERSTICK GLUCOSE 274 H 70-100 May 07, 2022 12:47 [facility] FINGERSTICK GLUCOSE Speci men Type: BLOOD PM Comment: Mark casillas Nurse Notified Ordering Provid er: BETO AYALA Report Released Date/Time: May 07, 2022 05:32 PM Reporting Lab: [facility] [address] [facility] [address] Performing Lab: [facility] [address] [facility] [address] FINGERSTICK GLUCOSE 309 H 70-100 May 07, 2022 06:35 [facility] FINGERSTICK GLUCOSE Speci men Type: BLOOD AM Comment: Mark casillas Nurse Notified Ordering Provid er: GAYLA BETTS Report Released Date/Time: May 07, 2022 06:46 AM Reporting Lab: [facility] [address] [facility] [address] Performing Lab: [facility] [address] [facility] [address] FINGERSTICK GLUCOSE 352 H 70-100 May 07, 2022 06:15 AM [facility] ALBUMIN Specim en Type: PLASMA No comment enter ed. Ordering Provid er: GAYLA BETTS Report Released Date/Time: May 06, 2022 06:33 PM Reporting Lab: [facility] [address] [facility] [address] Performing Lab: [facility] [address] [facility] [address] ALBUMIN 3.0 L 3.5-5.2 May 07, 2022 [facility] COMPREHENSIVE METABOLIC Spec imen Type: PLASMA 06:15 AM PANEL+MG No comment enter ed. Ordering Provid er: GAYLA BETTS Report Released Date/Time: May 06, 2022 09:11 PM Reporting Lab: [facility] [address] [facility] [address] Performing Lab: [facility] [address] CREATININE 1.2 0.7-1.2 UREA NITROGEN 25 8-26 [...] L >60 May 07, 2022 06:15 AM [facility] CBC & DIFF Specim en Type: BLOOD Comment: Manual Differential Performed Ordering Provid er: GAYLA BETTS Report Released Date/Time: May 06, 2022 09:11 PM Reporting Lab: [facility] [address] Performing Lab: [facility] [address] WBC 20.25 H 4.0-11.0 RBC 3.54 L [...] NORMOCYTIC, NORMOCHROMIC May 07, 2022 12:19 AM [facility] LACTIC ACID Specim en Type: PLASMA No comment enter ed. Ordering Provid er: GAYLA BETTS Report Released Date/Time: May 06, 2022 07:13 PM Reporting Lab: [facility] [address] Performing Lab: [facility] [address] LACTIC ACID 2.7 H 0.5-2.2 May 06, 2022 10:45 [facility] FINGERSTICK GLUCOSE Speci men Type: BLOOD PM Comment: Mark casillas Nurse Notified Ordering Provid er: GAYLA BETTS Report Released Date/Time: May 07, 2022 12:08 AM Reporting Lab: [facility] [address] [facility] [address] Performing Lab: [facility] [address] [facility] [address] FINGERSTICK GLUCOSE 320 H 70-100 May 06, 2022 06:53 [facility] MRSA SURVL NARES Specimen Type: NARES PM DNA No comment enter ed. Ordering Provid er: GAYLA BETTS Report Released Date/Time: May 06, 2022 06:33 PM Reporting Lab: [facility] [address] [facility] [address] Performing Lab: [facility] [address] [facility] [address] MRSA SURVL NARES DNA POSITIVE HH Negative May 06, 2022 06:51 PM [facility] LACTIC ACID Specim en Type: PLASMA No comment enter ed. Ordering Provid er: GAYLA BETTS Report Released Date/Time: May 06, 2022 06:04 PM Reporting Lab: [facility] [address] [facility] [address] Performing Lab: [facility] [address] [facility] [address] LACTIC ACID 3.1 H 0.5-2.2 May 06, 2022 06:51 [facility] CARDIAC TROPONIN I Specim en Type: PLASMA PM No comment enter ed. Ordering Provid er: GAYLA BETTS Report Released Date/Time: May 06, 2022 06:05 PM Reporting Lab: [facility] [address] [facility] [address] Performing Lab: [facility] [address] [facility] [address] CARDIAC TROPONIN I <0.028 <0.028 May 06, 2022 06:51 [facility] EXTRA GOLD GEL TUBE Speci men Type: SERUM PM No comment enter ed. Ordering Provid er: GAYLA BETTS Report Released Date/Time: May 06, 2022 06:52 PM Reporting Lab: [facility] [address] [facility] [address] Performing Lab: [facility] [place] [address] EXTRA GOLD GEL TUBE RECEIVED May 06, 2022 06:51 [facility] C-REACTIVE PROTEIN Specim en Type: PLASMA PM No comment enter ed. Ordering Provid er: GAYLA BETTS Report Released Date/Time: May 06, 2022 09:29 PM Reporting Lab: [facility] [address] [facility] [address] Performing Lab: [facility] [address] [facility] [address] C-REACTIVE PROTEIN 392.40 H <5.00 May 06, 2022 10:51 AM [facility] URINALYSIS Specim en Type: URINE No comment enter ed. Ordering Provid er: MODESTA VILLANUEVA Report Released Date/Time: May 06, 2022 10:11 AM Reporting Lab: [facility] [address] [facility] [address] [facility] Lab[facility] [address] URINE COLOR YELLOW SPECIFIC GRAVITY 1.020 1.003-1.035 [...] ESTERASE 500 NEGATIVE May 06, 2022 10:24 [facility] COVID-19 DIAGNOSTIC Speci men Type: NASOPHARYNGEAL AM PANEL (CEPHEID) Comment: Cephei d GeneXpert (618) Ordering Provid er: MODESTA VILLANUEVA Report Released Date/Time: May 06, 2022 10:11 AM Reporting Lab: [facility] [address] [facility] [address] Performing Lab: [facility] [address] [facility] [address] COVID-19 (CEPHEID) Not Detected Not Dete cted May 06, 2022 10:20 AM [facility] POC ABG/LACTATE Specim en Type: VENOUS BLOOD No comment enter ed. Ordering Provid er: MODESTA VILLANUEVA Report Released Date/Time: May 06, 2022 10:22 AM Reporting Lab: [facility] [address] [facility] [address] Performing Lab: [facility] [address] POC PH 7.410 7.31-7.41 POC PCO2 28.9 L 35.00-45.00 POC PO2 82 H 35.0-40.0 POC TCO2 19 L 24.0-29.0 POC HCO3 18.3 L 23.0-28.0 POC BE ECT -6 L -2 POC SO2 96 H 70-75 POC LACTATE 3.62 0.90-1.70 May 06, 2022 10:00 AM [facility] PHOSPHORUS Specim en Type: PLASMA No comment enter ed. Ordering Provid er: MODESTA VILLANUEVA Report Released Date/Time: May 06, 2022 10:11 AM Reporting Lab: [facility] [address] [facility] [address] Performing Lab: [facility] [address] [facility] [address] PHOSPHORUS 2.5 2.3-4.7 May 06, 2022 10:00 [facility] ACT PART THROMBO TIME Spe cimen Type: PLASMA AM No comment enter ed. Ordering Provid er: MODESTA VILLANUEVA Report Released Date/Time: May 06, 2022 10:11 AM Reporting Lab: [facility] [address] [facility] [address] Performing Lab: [facility] [address] [facility] [address] APTT 37.8 H 25.1-36.5 May 06, 2022 10:00 [facility] PROTHROMBIN TIME/INR Spec imen Type: PLASMA AM No comment enter ed. Ordering Provid er: MODESTA VILLANUEVA Report Released Date/Time: May 06, 2022 10:11 AM Reporting Lab: [facility] [address] [facility] [address] Performing Lab: [facility] [address] [facility] [address] .INR 2.5 H 0.8-1.1 .PT 29.2 H 9.4-12.5 May 06, 2022 10:00 [facility] CARDIAC TROPONIN I Specim en Type: PLASMA AM Comment: Critic al Value Reported To: BROOKS COTE 05-06-2022 @1053 BY MBB. Critical value report confirmed. Ordering Provid er: MODESTA VILLANUEVA Report Released Date/Time: May 06, 2022 10:11 AM Reporting Lab: [facility] [address] [facility] [address] Performing Lab: [facility] [address] [facility] [address] CARDIAC TROPONIN I 0.035 HH <0.028 May 06, 2022 10:00 AM [facility] PROCALCITONIN Specim en Type: PLASMA No comment enter ed. Ordering Provid er: MODESTA VILLANUEVA Report Released Date/Time: May 06, 2022 10:11 AM Reporting Lab: [facility] [address] [facility] [address] Performing Lab: [facility] [address] [facility] [address] PROCALCITONIN 22.29 H <0.09 May 06, 2022 10:00 AM [facility] LIPASE Specim en Type: PLASMA No comment enter ed. Ordering Provid er: MODESTA VILLANUEVA Report Released Date/Time: May 06, 2022 10:11 AM Reporting Lab: [facility] [address] [facility] [address] Performing Lab: [facility] [address] LIPASE <4 <60 May 06, 2022 [facility] COMPREHENSIVE METABOLIC Spec imen Type: PLASMA 10:00 AM PANEL+MG Comment: Manual Differential Performed Ordering Provid er: MODESTA VILLANUEVA Report Released Date/Time: May 06, 2022 10:11 AM Reporting Lab: [facility] [address] [facility] [address] Performing Lab: [facility] [address] [place] [facility] [address] CREATININE 1.3 H 0.7-1.2 UREA NITROGEN 25 [...] 54 L >60 May 06, 2022 10:00 [facility] EXTRA GOLD GEL TUBE Speci men Type: SERUM AM No comment enter ed. Ordering Provid er: LINNEA RAND Report Released Date/Time: May 06, 2022 10:25 AM Reporting Lab: [facility] [address] [facility] [address] Performing Lab: [facility] [address] [facility] [address] EXTRA GOLD GEL TUBE RECEIVED May 06, 2022 10:00 AM [facility] CBC & DIFF Specim en Type: BLOOD Comment: Manual Differential Performed Ordering Provid er: MODESTA VILLANUEVA Report Released Date/Time: May 06, 2022 10:11 AM Reporting Lab: [facility] [address] [facility] [address] Performing Lab: [facility] [address] [facility] [address] WBC 18.82 H 4.0-11.0 RBC 3.70 L [...] .RBC MORPHOLOGY PRESENT May 06, 2022 09:46 [facility] FINGERSTICK GLUCOSE Speci men Type: BLOOD AM Comment: Mark casillas Nurse Notified Ordering Provid er: MODESTA VILLANUEVA Report Released Date/Time: May 06, 2022 09:59 AM Reporting Lab: [facility] [address] [facility] [address] Performing Lab: [facility] [address] [facility] [address] FINGERSTICK GLUCOSE 369 H 70-100 Apr 30, 2022 [facility] BASIC METABOLIC Specimen Typ e: PLASMA 09:17 AM PANEL+MG No comment enter ed. Ordering Provid er: BILL ROONEY Report Released Date/Time: Apr 30, 2022 08:21 AM Reporting Lab: [facility] [address] [facility] [address] Performing Lab: [facility] [address] [facility] [address] CREATININE 1.2 0.7-1.2 UREA NITROGEN 26 8-26 GLUCOSE 140 H 70-100 SODIUM 138 136-145 POTASSIUM 3.8 3.5-5.1 CHLORIDE 107 98-107 CO2 20 L 22-29 CALCIUM 9.4 8.4-10.2 MAGNESIUM 1.7 1.6-2.6 ANION GAP 11 5-15 CREAT EGFR(CKD-EPI) 59 L >60 Apr 30, 2022 09:17 AM [facility] CBC Specim en Type: BLOOD No comment enter ed. Ordering Provid er: BILL ROONEY Report Released Date/Time: Apr 30, 2022 08:21 AM Reporting Lab: [facility] [address] Performing Lab: [facility] [address] WBC 10.40 4.0-11.0 RBC 3.96 L 4.6-6.2 [...] Edvin dy Source Pressure Rate Mass Index May 06, 100.9 F 101 141/99 16 /min 94 % 99 [place] 2021 10:00 /min mm[Hg] [facility] Apr 18, 100 F [place] 2021 07:49 [facility] May 06, 101.2 F 84 117/56 22 /min 10 [place] 2021 11:22 /min mm[Hg] [facility] Sep , 257.4 34 [place] 2021 10:41 lb [place] [facility] Social History: Smoking Status (Most current) and Tobacco Use (All prior to encounter date) This section includes the most current, and the historical, smoking and tobacco-related health factors from the [place] facility where the Encounter took place.Current Smoking Status This section includes the most current smoking, or tobacco-related health factor, from the [place] facility where the Encounter took place. Date/Time Current Smoking Status Comment Facility Feb 02, 2022 09:30 AM VA-TOBACCO NEVER USED [place] [facility] Tobacco Use History This section includes a history of the smoking, or tobacco- related health factors, that were collected on or before the date of the Encounter. The data comes from the [facility] where the Encounter took place. Date/Time Smoking Status/Tobacco Use Comment [facility] Mar 22, 2021 07:45 AM VA-TOBACCO NEVER USED [place] [facility] Oct 02, 2019 10:02 AM VA-TOBACCO NEVER USED [place] [facility] May 21, 2018 09:05 AM VA-TOBACCO NEVER USED [place] [facility] December 25, 2017 06:14 PM INPT NO TOBACCO USE IN LAST 30 DAYS [facility] Oct 01, 2017 07:34 AM LIFETIME NON-TOBACCO USER [facility] Sep 28, 2016 08:44 AM LIFETIME NON-TOBACCO USER [facility] Oct 14, 2015 07:52 AM LIFETIME NON-TOBACCO USER [facility] Oct 11, 2014 07:59 AM LIFETIME NON-TOBACCO USER [facility] January 15, 2007 07:55 AM LIFETIME NON-TOBACCO USER [facility] Advance Directives: All historical and current Section Date Range: From patient's date of to the date document was created. This section includes ALL of a patient's completed or amended [place] Advance and Rescinded Directives. The entries below indicate that a directive exists for the patient, but an actual copy is not included with this document. The data comes from all [facility]. Date Advance Directives Provider Source Apr 18, 2018 ADVANCE DIRECTIVE LARISSA SIGALA [facility] Apr 18, 2018 ADVANCE DIRECTIVE DISCUSSION LARISSA SIGALA [facility] December 23, 2017 CLINICAL WARNING FARHAT [facility] May 11, 2003 ADVANCE DIRECTIVE BERT CASILLAS [facility] Radiology Reports: +/- 30 days [...] the Encounter. The data comes from all [place] treatment facilities. Date/Time Radiology Report Provider Source May 11, 2022 09:46 CHEST 1 VIEW: SONJA OVALLES [facility] JOSE EDDY [id number] -1935 M Exm Date: MAY 11, 2022@09:46 Req Phys: CAROLYNCODIE Camron Pat Loc: OP Unknown /05-13-2022@05:05 Img Loc: MAIN X-RAY Service: PRIMARY CARE - MED OFFICE (Case [id number] COMPLETE) CHEST 1 VIEW (RAD Detailed) CPT:22081 Proc Modifiers : PORTABLE EXAM Reason for Study: resp distress Clinical History: [facility] IS NOT under investigation for COVID-19 or is COVID-19 negative Respiratory distress Responsible provider name and phone number to notify for critical findings if other than u ser placing the order and pager listed below: User placing orde rs pager: [phone] cell LAST CREATININE 1.6 H (05/11/22) Report Status: Verified Date Reported: MAY 11, 2022 Date Verified: MAY 11, 2022 Floor Renovator E-Sig:/ES/SONJA OVALLES MD Report: CHEST 1 VIEW [...] of the right and left diaphragm. Th leiza findings correspond to moderate right greater than left pleural effusions and mild to moderate adjacent bibasilar gia sive atelectasis demonstrated on the interval thoracic spine CT dated 05/08/2022. The upper lungs are clear. Primary Interpreting Staff: SONJA OVALLES MD, RADIOLOGIST (Floor Renovator) /CDC May 10, 2022 03:49 CT HEAD (P): RADIOLOGY,OUTSIDE [facility] PM JOSE EDDY [id number] -1935 M SERVICE Exm Date: MAY 10, 2022@15:49 Req Phys: CODIE LEON Loc: OP Unknown /05-13-2022@05:05 Img Loc: CT IMAGING Service: PRIMARY CARE - MED OFFICE (Case [id number] COMPLETE) CT HEAD/BRAIN W/O CONTRAST (CT Detailed) CPT:13168 Reason for Study: CHANGE IN MENTAL STATUS Clinical History: CHANGE IN MENTAL STATUS. ORDER ADMINISTRATIVELY ENTERED FOLLOWING SYSTEM OUTAGE. Report Status: Verified Date Reported: MAY 10, 2022 Date Verified: MAY 10, 2022 Floor Renovator E-Sig: Report: CT HEAD/BRAIN W/O CONTRAST [PRINTSET] HISTORY: Change in mental status. COMPARISON: CT from 05/07/2022. TECHNIQUE: Contiguous axial CT images from the level of the skull base through the skull apex, with coronal and s agittal reformats, performed at the local [place] facility. 321 images were received by the [place] National Teleradiology Program (NTP) for interpretation. RADIATION [...] study. READING PHYSICIAN: Akash Mccoy M.D. -[phone] 05/10/2022 17:35 PDT [facility] National Teleradiology Program [phone] (For Medical Practitioner Use Only ) Attention Patients / Veterans: If you have ques tions or concerns about these test results, please contact your o rdering provider or primary care team. Primary Interpreting Staff: RADIOLOGY,OUTSIDE SERVICE, Staff Physician / May 08, 2022 07:45 CT T-SPINE (P): RADIOLOGY,OUTSIDE [facility] JOSE EDDY [id number] -1935 M SERVICE Exm Date: MAY 08, 2022@19:45 Req Phys: CODIE LEON Loc: OP Unknown /05-13-2022@05:05 Img Loc: CT IMAGING Service: PRIMARY CARE - MED OFFICE (Case [id number] COMPLETE) CT SPINE THORACIC W/O CONTR AST (CT Detailed) CPT:68523 Reason for Study: mrsa bacteremia, spinal surge ry - r/o abscess or discitis Clinical History: [facility] IS NOT under investigation for COVID-19 or is COVID-19 negative Defer to radiologist for final CT protocol. Responsible provider name and phone number to n otify for critical findings if other than user placing the order a nd pager listed below: User placing orders pager: [phone] LAST 3: Collection DT Specimen Test Name [...] GFR (eGF 44 L Ref: >=60 Allergies: ([place] only) SIMVASTATIN (Feb 29, 2004) CEPHALEXIN (Mar 01, 2004) Report Status: Verified Date Reported: MAY 08, 2022 Date Verified: MAY 08, 2022 Floor Renovator E-Sig: Report: CT SPINE THORACIC W/O CONTRAST [PRINTSET] HISTORY:MRSA bacteremia NUMBER OF IMAGES:1151 COMPARISON: Correlation with images from recent CT abdomen and pelvis May 06, 2022 TECHNIQUE: A non contrast CT of the thoracic sp ine was performed at the local [place]. Images were subsequently sent to [facility] for interpretation. Axial, coronal and sagittal [...] itis at any thoracic level. READING PHYSICIAN: Jose Webb MD -[id number] 05/08/2022 19:20 PDT [facility] National Teleradiology Program [phone] (For Medical Practitioner Use Only ) Attention Patients / Veterans: If you have ques tions or concerns about these test results, please contact your [facility] provider or primary care team. Primary Interpreting Staff: RADIOLOGY,OUTSIDE SERVICE, Staff Physician / May 08, 2022 04:48 CHEST 1 VIEW: RADIOLOGY,OUTSIDE [facility] PM JOSE EDDY [id number] -1935 M SERVICE Exm Date: MAY 08, 2022@16:48 Req Phys: CODIE LEON Loc: OP Unknown /05-13-2022@05:05 Img Loc: MAIN X-RAY Service: PRIMARY CARE - MED OFFICE (Case [id number] COMPLETE) CHEST 1 VIEW (RAD Detailed) CPT:08349 Proc Modifiers : PORTABLE EXAM Reason for Study: dyspnea Clinical History: [facility] IS NOT under investigation for COVID-19 or is COVID-19 negative acute worsening of dyspnea Responsible provider name and phone number to notify for critical findings if other than user placing the order and pager listed below: User placing orders pager: [phone] carolyn cell [phone] LAST CREATININE 1.1 (05/08/22) Report Status: Verified Date Reported: MAY 08, 2022 Date Verified: MAY 08, 2022 Floor Renovator E-Sig: Report: CHEST 1 VIEW HISTORY: dyspnea COMPARISON: 05/06/2022 TECHNIQUE: Frontal view(s) of the chest, submit nola to the [place] National Teleradiology Program (NTP) for interp retation. FINDINGS: Reduced lung volumes. Progressive cardiomegaly, and vascular congestion as well as diffuse interstitial prom inence with probable small effusions. Impression: Expiratory exam with findings of CHF and mild e santa READING PHYSICIAN: Nghia Menjivar M.D. -[id number] 10 05/08/2022 18:57 EDT [facility] National Teleradiology Program [phone] (For Medical Practitioner Use Only ) Attention Patients / Veterans: If you have ques tions or concerns about these test results, please contact your o rdering provider or primary care team. Primary Interpreting Staff: RADIOLOGY,OUTSIDE SERVICE, Staff Physician / May 07, 2022 10:29 CT HEAD (P): SHANI POLANCO [facility] JOSE EDDY [id number] -1935 M Exm Date: MAY 07, 2022@10:29 Req Phys: BETO AYALA Loc: OP Unknown/0 05-13-2022@05:05 Img Loc: CT IMAGING Service: PRIMARY CARE - MED OFFICE (Case [id number] COMPLETE) CT HEAD/BRAIN W/O CONTRAST ( CT Detailed) CPT:10738 Reason for Study: seizure noted at [facility] Clinical History: [facility] IS NOT under investigation for COVID-19 or is COVID-19 negative Defer to radiologist for final CT protocol. Responsible provider name and phone number to n otify for critical findings if other than user placing the order a nd pager listed below: User placing orders pager: [phone] LAST 3: Collection DT Specimen Test Name [...] GFR (eGF 44 L Ref: >=60 Allergies: ([place] only) SIMVASTATIN (Feb 29, 2004) CEPHALEXIN (Mar 01, 2004) Report Status: Verified Date Reported: MAY 07, 2022 Date Verified: MAY 07, 2022 Floor Renovator E-Sig:/ES/SHANI POLANCO MD Report: EXAM: CT HEAD/BRAIN W/O CONTRAST HISTORY: seizure noted at [facility] Reason for Study: seizure noted at [facility] IS NOT under investigation for COVID-19 or is COVID-19 negative Defer to radiologist for final CT prot ocol. Responsible provider name and phone number to notify for cr itical findings if other than user placing the order and pager lis nola below: User placing orders pager: [phone] LAST 3: Collecti on DT Specimen Test [...] Primary Interpreting Staff: SHANI POLANCO MD, RADIOLOGIST (Floor Renovator) /Javed May 06, 2022 11:40 CHEST 1 VIEW: RADIOLOGY,OUTSIDE [facility] AM JOSE EDDY [id number] -1935 M SERVICE Exm Date: MAY 06, 2022@11:40 Req Phys: MODESTA VILLANUEVA Loc: [facility] EMERGENCY DEPT WALK-IN (Re Img Loc: MAIN X-RAY Service: Unknown (Case [id number] COMPLETE) CHEST 1 VIEW (RAD Detailed) C PT:45949 Proc Modifiers : PORTABLE EXAM Reason for [...] pager listed below: User placing orders pager: [phone] LAST CREATININE 1.2 (04/30/22) Report Status: Verified Date Reported: MAY 06, 2022 Date Verified: MAY 06, 2022 Floor Renovator E-Sig: Report: Technique: Frontal chest. No comparison Impression: Cardiac silhouette is mildly enlarged. There is mild pulmonary venous congestion. No definite pleural effusion . No pneumothorax seen. READING PHYSICIAN: Vern Donnelly M.D. -[id number] 07 05/06/2022 13:26 EDT [facility] National Teleradiology Program [phone] (For Medical Practitioner Use Only ) Attention Patients / Veterans: If you have ques tions or concerns about these test results, please contact your o [facility] provider or primary care team. Primary Interpreting Staff: RADIOLOGY,OUTSIDE SERVICE, Staff Physician / May 06, 2022 10:36 CT (AP) ABDOMEN/PELVIS (P): RADIOLOGY,OUTSIDE [facility] DAMIRJOSE [id number] -1935 M SERVICE Exm Date: MAY 06, 2022@10:36 Req Phys: MODESTA VILLANUEVA Loc: [facility] EMERGENCY DEPT WALK-IN (Re Img Loc: CT IMAGING Service: Unknown (Case 66 COMPLETE) CT (AP) ABDOMEN/PELVIS W CONT RAST(CT Detailed) CPT:54000 Reason for Study: fever, back pain Clinical History: fever, back pain, ecchymosis left low back consideration for intra-abdominal process, aort ic changes, LS spine trauma, kidney inflammation, GI or obs truction [facility] IS under investigation ([facility]) for COVID- 19 or is COVID-19+ Defer to radiologist for final CT protocol. Please enter pertinent clinical history on the next page. Responsible provider name and phone number to n otify for critical findings if other than user placing the order a nd pager listed below: User placing orders pager: [phone] LAST 3: Collection DT Specimen Test Name [...] ESTIMATED GFR(eGF 44 L Ref: >=60 Allergies: ([place] only) SIMVASTATIN (Feb 29, 2004) CEPHALEXIN (Mar 01, 2004) To see allergies from all [facility] locations click Re ports tab>Remote Data>All Available Sites>Clinical Reports>Aller gies. Report Status: Verified Date Reported: MAY 06, 2022 Date Verified: MAY 06, 2022 Floor Renovator E-Sig: Report: Exam: CT (AP) ABDOMEN/PELVIS W CONTRAST [PRINTS ET] Clinical History: fever, back pain Number of images: 918 Comparison: No priors available Technique: The study was protocoled [place] [facility] [place] [facility] [place] of the abdomen and pelvis was performed afte r the uneventful administration of iodinated contrast. Images we re received by the [place] National Teleradiology Program (NTP) for interpretation. Total [...] the aorta. Lym ph nodes: Unremarkable. Bladder: Woodard catheter with expe cted intraluminal gas. Reproductive [...] findings, above. READING PHYSICIAN: Eduin Donaldson M.D. -[phone] 05/06/2022 12:48 [facility] TeamVisibility Teleradiology Program [phone] (For Medical Practitioner Use Only ) Attention Patients / Veterans: If you have ques tions or concerns about these test results, please contact [facility] or primary care team. Primary Interpreting Staff: RADIOLOGY,OUTSIDE SERVICE, Staff Physician / May 06, 2022 10:35 CT CERVICAL SPINE W/O CONTRAST: RADIOLOGY,OUT SIDE [facility] AM JOSE EDDY [id number] -1935 M SERVICE Exm Date: MAY 06, 2022@10:35 Req Phys: MODESTA VILLANUEVA Loc: [facility] EMERGENCY DEPT WALK-IN (Re Img Loc: CT IMAGING Service: Unknown (Case 65 COMPLETE) CT CERVICAL SPINE W/O CONTRAS T (CT Detailed) CPT:45740 Reason for Study: falls, blood thinner, AMS, se izure Clinical History: falls, blood thinner, AMS, seizure IS under investigation (PUI) for COVID- 19 or is COVID-19+ Defer to radiologist for final CT protocol. Responsible provider name and phone number to n otify for critical findings if other than user placing the order a nd pager listed below: User placing orders pager: [phone] LAST 3: Collection DT Specimen Test Name [...] ESTIMATED GFR(eGF 44 L Ref: >=60 Allergies: ([place] only) SIMVASTATIN (Feb 29, 2004) CEPHALEXIN (Mar 01, 2004) To see allergies from all [facility] locations click Re ports tab>Remote Data>All Available Sites>Clinical Reports>Aller gies. Report Status: Verified Date Reported: MAY 06, 2022 Date Verified: MAY 06, 2022 Floor Renovator E-Sig: Report: CT CERVICAL SPINE W/O CONTRAST HISTORY:falls, blood thinner, AMS, seizure NUMBER OF IMAGES:770 COMPARISON: None available. TECHNIQUE: A non contrast CT of the cervical sp ine was performed [place] the local [place]. Images were subsequently sent to [facility] for interpretation. Axial, coronal and sagittal [...] tissues: 11 mm subcutaneous cyst in the [facility] upper neck. Impression: -Motion artifact limits the exam. -Given this limitation, no acute osseous abnorm ality. -Moderate multilevel degenerative change throug hout the cervical spine. -Ancillary findings, above. READING PHYSICIAN: Eduin Donaldson M.D. -[phone] 05/06/2022 12:33 [facility] National Teleradiology Program [phone] (For Medical Practitioner Use Only ) Attention Patients / Veterans: If you have ques tions or concerns about these test results, please contact [facility] or primary care team. Primary Interpreting Staff: RADIOLOGY,OUTSIDE SERVICE, Staff Physician / May 06, 2022 10:35 CT HEAD/BRAIN W/O CONTRAST: RADIOLOGY,OUTSIDE [facility] JOSE EDDY [id number] -1935 M SERVICE Exm Date: MAY 06, 2022@10:35 Req Phys: MODESTA VILLANUEVA Loc: [facility] EMERGENCY DEPT WALK-IN (Re Img Loc: CT IMAGING Service: Unknown (Case 64 COMPLETE) CT HEAD/BRAIN W/O CONTRAST (C T Detailed) CPT:61342 Reason for Study: falls, blood thinner, AMS, se izure Clinical History: falls, blood thinner, AMS, seizure [facility] IS under investigation (PUI) for COVID- 19 or is COVID-19+ Defer to radiologist for final CT protocol. Responsible provider name and phone number to n otify for critical findings if other than user placing the order a nd pager listed below: User placing orders pager: [phone] LAST 3: Collection DT Specimen Test Name [...] ESTIMATED GFR(eGF 44 L Ref: >=60 Allergies: ([place] only) SIMVASTATIN (Feb 29, 2004) CEPHALEXIN (Mar 01, 2004) To see allergies from all [place] locations click Re ports tab>Remote Data>All Available Sites>Clinical Reports>Aller gies. Report Status: Verified Date Reported: MAY 06, 2022 Date Verified: MAY 06, 2022 Floor Renovator E-Sig: Report: CT HEAD/BRAIN W/O CONTRAST Clinical History: falls, blood thinner, AMS, se izure Number of Images: 532 Comparison: 03/12/2022 Technique: The study was protocoled and supervi sed at the local [facility]. CT of the head without contrast. I mages were subsequently received by the [place] National Telera diology Program (NTP) for interpretation. [...] T findings. READING PHYSICIAN: Eduin Donaldson M.D. -[phone] 05/06/2022 12:30 [facility] National Teleradiology Program [phone] (For Medical Practitioner Use Only ) Attention Patients / Veterans: If you have ques tions or concerns about these test results, please contact [facility] or primary care team. [...] the Encounter. The data comes from all [place] treatment facilities. Date/Time Pathology Report Provider Source May 09, 2022 05:30 AM LR MICROBIOLOGY REPORT: [facility] Reporting Lab: [facility] [CLIA# [id number]] [place] [address] Accession [UID]: [id number] [[id number]] Receiv ed: May 09, 2022@01:35 Collection sample: BLOOD Collection date: Apr 05:30 Provider: CODIE LEON Comment on specimen: LEFT ARM, RECEIVED 2 BLOOD CULTURE BOTTLES Test(s) ordered: CULTURE & SUSCEPTIBILITY...... 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 R TRIMETH/SULFA................. S TETRACYCLINE.................. S CLINDAMYCIN................... S RIFAMPIN...................... S VANCOMYCIN.................... S Bacteriology Remark(s): VANCOMYCIN SHAMIKA: <=0.5 ug/mL THIS REPORT IS FINAL =--=--=--=--=--=--=--=--=--=--=--=--=--= --=--=--=--=--=--=--=--=--=--=--=--=-- Performing Laboratory: Bacteriology Report Performed By: [facility] [CLIA# [id number]] [place] [address] May 08, 2022 03:23 PM LR MICROBIOLOGY REPORT: [facility] Reporting Lab: [facility] [CLIA# [id number]] [place] [address] Accession [UID]: [id number] [[id number]] Receiv ed: May 08, 2022@15:41 Collection sample: BLOOD Collection date: Apr 15:23 Provider: CODIE LEON Comment on specimen: LEFT ARM, RECEIVED 2 BLOOD CULTURE BOTTLES Test(s) ordered: CULTURE & SUSCEPTIBILITY...... completed: May 10, 2022 * BACTERIOLOGY FINAL REPORT => May 10, 2022 16:3 1 TECH CODE: [id number] CULTURE RESULTS: GROWTH SAME THAT OF ANOTHER CULTURE Comment: FOR SUSCEPTIBILITY REPORT SEE PREVIOUS POSITIVE SAME MB 22 [id number] ( 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 from Anaerobic bottle ) ( Recovered from Aerobic bottle ) Bacteriology Remark(s): THIS REPORT IS FINAL =--=--=--=--=--=--=--=--=--=--=--=--=--= --=--=--=--=--=--=--=--=--=--=--=--=-- Performing Laboratory: Bacteriology Report Performed By: [facility] [CLIA# [id number]] [place] [address] May 08, 2022 03:21 PM LR MICROBIOLOGY REPORT: [facility] Reporting Lab: [facility] [CLIA# [id number]] [place] [address] Accession [UID]: [id number] [[id number]] Receiv ed: May 08, 2022@15:40 Collection sample: BLOOD Collection date: Apr 15:21 Provider: CODIE LEON Comment on specimen: RT ARM, RECEIVED 2 BLOOD CU LTURE BOTTLES Test(s) ordered: CULTURE & SUSCEPTIBILITY...... completed: May 10, 2022 * BACTERIOLOGY FINAL REPORT => May 10, 2022 16:3 1 TECH CODE: [id number] CULTURE RESULTS: GROWTH SAME THAT OF ANOTHER CULTURE Comment: FOR SUSCEPTIBILITY REPORT SEE PREVIOUS POSITIVE SAME MB 22 [id number] ( 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 from Anaerobic bottle ) ( Recovered from Aerobic bottle ) Bacteriology Remark(s): THIS REPORT IS FINAL =--=--=--=--=--=--=--=--=--=--=--=--=--= --=--=--=--=--=--=--=--=--=--=--=--=-- Performing Laboratory: Bacteriology Report Performed By: [facility] [CLIA# [id number]] [place] [address] May 07, 2022 05:30 AM LR MICROBIOLOGY REPORT: [facility] Reporting Lab: [facility] [CLIA# [id number]] [place] [address] Accession [UID]: [id number] [[id number]] Receiv ed: May 07, 2022@01:35 Collection sample: BLOOD Collection date: Apr 05:30 Provider: GAYLA BETTS Comment on specimen: RAC, RECEIVED 2 BLOOD CULTU RE BOTTLES Test(s) ordered: CULTURE & SUSCEPTIBILITY...... completed: May 08, 2022 * BACTERIOLOGY FINAL REPORT => May 08, 2022 19:4 7 TECH CODE: 2196 CULTURE RESULTS: GROWTH SAME THAT OF ANOTHER CULTURE Comment: FOR SUSCEPTIBILITY REPORT SEE PREVIOUS POSITIVE SAME MB 22 [id number] ( 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 from Aerobic bottle ) ( Recovered from Anaerobic bottle ) Bacteriology Remark(s): THIS REPORT IS FINAL =--=--=--=--=--=--=--=--=--=--=--=--=--= --=--=--=--=--=--=--=--=--=--=--=--=-- Performing Laboratory: Bacteriology Report Performed By: [facility] [CLIA# [id number]] [place] [address] May 06, 2022 10:51 AM LR [facility] Reporting Lab: [facility] [CLIA# [id number]] [place] [address] Accession [UID]: [id number] [[id number]] Receiv ed: May 06, 2022@11:32 Collection sample: [...] --=--=--=--=--=--=--=--=--=--=--=--=-- Performing Laboratory: Bacteriology Report Performed By: [facility] [CLIA# [id number]] [place] [address] May 06, 2022 10:34 AM LR MICROBIOLOGY REPORT: [facility] Reporting Lab: [facility] [CLIA# [id number]] [place] [address] Accession [UID]: [id number] [[id number]] Receiv ed: May 06, 2022@10:51 Collection sample: BLOOD Collection date: Apr 10:34 Provider: MODESTA VILLANUEVA Comment on specimen: RECEIVED 2 BLOOD CULTURE [facility] Test(s) ordered: CULTURE & SUSCEPTIBILITY...... completed: May 07, 2022 * BACTERIOLOGY FINAL REPORT => May 08, 2022 08:3 0 TECH CODE: [id number] CULTURE RESULTS: STAPHYLOCOCCUS AUREUS METHICILL IN RESISTANT [...] --=--=--=--=--=--=--=--=--=--=--=--=-- Performing Laboratory: Bacteriology Report Performed By: [facility] [CLIA# [id number]] [place] [address] May 06, 2022 10:00 AM LR MICROBIOLOGY REPORT: [facility] Reporting Lab: [facility] [CLIA# [id number]] [place] [address] Accession [UID]: [id number] [[id number]] Receiv ed: May 06, 2022@10:41 Collection sample: BLOOD Collection date: Apr 10:00 Provider: MODESTA VILLANUEVA Comment on specimen: RECEIVED 2 BLOOD CULTURE EDVIN TTLES L FOREARM Test(s) ordered: CULTURE & SUSCEPTIBILITY...... completed: May 07, 2022 * BACTERIOLOGY FINAL REPORT => May 07, 2022 23:0 0 TECH CODE: 2196 CULTURE RESULTS: GROWTH SAME THAT OF ANOTHER CULTURE Comment: FOR SUSCEPTIBILITY REPORT SEE PREVIOUS POSITIVE SAME 22 [id number] ( 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 from Anaerobic bottle ) ( Recovered from Aerobic bottle ) Bacteriology Remark(s): THIS REPORT IS FINAL =--=--=--=--=--=--=--=--=--=--=--=--=--= --=--=--=--=--=--=--=--=--=--=--=--=-- Performing Laboratory: Bacteriology Report Performed By: [facility] [CLIA# [id number]] [place] [address] Encounter Notes: All associated encounter notes This section contains the clinical notes associated to the Encounter. 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 Records reviewed: - H/o E. coli bacteremia in the past 2/2 urinary source - Admitted in December 2021 w/ prostatis placed on ci profloxacin - Admitted to [facility] given acute confusion; was felt possibly 2/2 cipro and was felt to have chronic prost atitis so cipro was stopped. He had an LATHA and lactic acidosis at that time. 1/2 blood culture had growth. - Fell 02/05/22, found to have a T11 compression fracture. Was following with outpatient [facility] from [place] Pt is surprisingly oriented x3 but is restless and encephalopathic and unable to provide history. Pt's RACHEL marquez, son, at bedside provided full history. Wade reports that Inocencio has had a very up and down cour se recently. Numerous hospitalizations with waxing and waning mental status. He was admitted to [facility] after his fall and thoracic compression fracture which occurred when he was riding his motorize d lawn motor at home. He was living w/ Wade's son at that time. Since move the three p oints, the pt has had some difficulty with what Wade has been told is 'del irium.' Has been agitated at times. Per [place] MAR, appears that he has b een giving PRN ativan for agitation at times. Wade notes that Inocencio has been com plaining of back pain since his recent compression fracture, but that the pain had actu ally overall been improving significantly in the last 1-2 weeks. Wade notes that Inocencio began having 'tremors' on Saturday which he states typically oc curs before he starts to get sick. Wade believes he star nola having fevers Saturday into Saturday. He then saw his mental status 'start to go downhill again' on late Saturday into Saturday. He reportedly fell on Saturday an d was very confused and disoriented. Was admitted to [facility] on . Had a 'seizure' on Saturday while hospitalized; no prior history of seizure. Per Wade, a Foely catheter was placed upon admission to [facility] 05/01; the patie nt did not have a chronic indwelling woodard prior. Bishop miguel angel, he has had issues w/ bladder infections r/t BPH and incomplete emptying in the past (see above). Per JLV: - Admitted to [facility] 05/01 - 05/[address] a reported fall. Per [place] HPI: Patient is 86-year-old gentlema graciela who is brought in [facility], [facility], h e is here because of altered mental status, he fell 3 days ago, injuringthe right frontal region, [facility], laboratory testswere done, but no CT head was done. He has had increasing behavior at [facility] and unable to really be cared for there so they sent him to the [facility] room for evaluation. He has had no fevers, per report, but increasingly tough to redirect - WBC 9.17 05/01 -> 10.10 on 05/03 - UA 05/01 w/ no LE, nitrite, 0-2 WBcs and no yaya teria seen Emergency Department (ED) Course: VS notable for fever to 101.2 on arrival, HR 84, RR 22, BP 117/56 Labs notable for procal 22.2 9, WBC 18.82, Bicarb 17, Mg 1.5, Troponin 0.035, INR 2.5, Hgb 11.6 VBG w/ pH 7.4, bicarb 18.3, POC lactate 3.62 UA w/ 2+ blood, 500 LE, 78 WBC's, no bacteria se en Woodard was placed CT head, C-spine, Abd/pelvis were obtaiend; see below - showed the T10 compression deformity w/ evidence of surrounding gas, unable to r/o osteo or discitis Given: - 1L LR - vanc + ciprofloxacin x1 Past Medical History: Active problems - Computerized Problem List is t he source for the followin. Type 2 diabetes mellitus (SNOMED CT 50081892 ) 2. OBESITY, UNSP 3. Psoriasis * 4. Social and personal history finding - Lives alone. Has brother in [place]. Friends felipe breaux. 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 5. History of adenomatous polyp of colon - Last c-scope 05/09/15 at [place]. Two small polyp s. - 5 year follow up if appropriate. 6. Elevated PSA - follows with urology at [facility] - with BPH on terazosin - February 2021: TURP at [facility] 7. Chronic kidney disease stage 3 8. Diastolic heart failure - w/ HTN and dyslipidemia 9. Chronic atrial fibrillation - metoprolol and rivaroxaban 10. history of hospitalization - January 2021: Bacteremia secondary to urinary ou tflow obstruction from BPH - underwent a TURP at [facility] February 2021 11. corns and calluses - followed by podiatry in the community in [facility] 12. Gout - on allopurinol Past Surgical History: Reviewed in chart Family History: Not pertinent Social History: - Per Wade, no tobacco, alcohol or drug use. - Has been living at [facility] in [place], [place] since back injury a couple months ago Allergies: SIMVASTATIN (Feb 29, 2004) CEPHALEXIN (Mar 01, 2004) Review of System: ROS limited 2/2 encephalopathy as noted above Physical Exam: Temp: 101.2 F [38.4 C] (05/06/2022 11:22) Pulse:84 (05/06/2022 11:22) BP: 117/56 (05/06/2022 11:22) Resp: 22 (05/06/2022 11:22) Weight: 257.4 lb [116.75 kg] (05/06/2022 10:41) Pain: 10 (05/06/2022 11:22) O2 Sat: 98% (04/30/2022 07:57) BMI: BMI not available without height General: Mild distress, leaning toward the left, frequent readjustments/movements in bed, moving all extre mities HEENT: NC/AT, EOMI, anicteric, PERRL CV: RRR, no murmur, extremities warm and well pe rfused Lungs: CTAB, no wheezing, rales, or rhonchi, no increased work of breathing Abdomen: soft, mild tenderness to palpation - sa ys 'ouch' in lower abdomen, obese, no palpable mass Extremities: no edema, no rash, full ROM Neuro: Surprisingly A&Ox3, no focal defi cits noted on exam although full neuro exam limited 2/2 need for frequent reorientation , sensation grossly intact Labs: HEMATOLOGY: 05/06/2022 10:00 \ 11.6 / 18.82 ------ 209 / 35.0 \ LYMPH: 1.5% MCV: 94.6 RDW: 14.6 H RBC: 3.70 L NEUT: 97.0 MONO: 1.0 MYELO: 0.5 ABS NEUT: 18.26 H @ 05/06/2022 10:00 ABS LYMPH: 0.28 L ABS MONO: 0.19 ABS MYELO: 0.09 @ 05/06/2022 10:00 .RBC MORPHOLOGY: PRESENT @ 05/06/2022 10:00 FINGERSTICK GLUCOSE: 369 H @ 05/06/2022 09:46 SMEAR: Normochromic: Yes Normocytic: Yes @ 2021 10:00 CHEMISTRY: May 06, 2022@10:00 142* 107 25 / 410 4.1 17 1.3 \ Gap: 15` * - sodium corrected for hyperglycemia ` - corrected for albumin CARDIAC TROPONIN I: <0.028 Lactate: 3.1 H @ 05/06 18:51 POC PH: 7.410 POC PCO2: 28.9 L POC PO2: 82 H @ 10:20 POC HCO3: 18.3 L POC BE ECT: -6 L POC SO2: 96 H @ 05/06/2022 10:20 POC LACTATE: 3.62 POC TCO2: 19 L @ 05/06/2022 10: 20 EXTRA GOLD GEL TUBE: RECEIVED .PT: 29.2 H @ 05/06 10:00 .INR: 2.5 H APTT: 37.8 H Procal: 22.29 H @ 2021 10:00 CREAT EGFR(CKD-EPI): 54 L Protein: 6.1 @ 05/06/20 22 10:00 Albumin: 3.1 L Calcium: 9.0 @ 05/06/2022 10:00 Corrected Calcium: 9.7 (alb 3.1 on May 06, 2022) @ 05/06/2022 10:00 Ma.5 L Phos: 2.5 TBil: 1.2 ALK: 119 @ 022 10:00 AST/SGOT: 9 ALT/SGPT: 23 Lipase: <4 @ 05/06/2022 10:00 URINE STUDIES: UA: YELLOW/TURBID 2+ Blood 500 LE n/a Nitrite 70 Protein >1000 Glucose 1+ Ketones n/a Urobili otherwise bland @ 05/06/2022 10:51 Urine micro: 78 WBCs NONE Bacteria 11 RBCs 1 Hyaline casts @ 05/06/2022 10:51 URINE PH: 5.5 URINE NITRITE: Neg @ 05/06/2022 10: 51 SQUAMOUS EPITHELIAL: <1 @ 05/06/2022 10:51 OTHER: COVID-19 (CEPHEID) (NASOPHARYNGEAL): Not Detecte d @ 05/06/2022 10:24 MICRO: RECEIVED IN STERILE CUP - pending @ 05/06/2022 10 :51 RECEIVED 2 BLOOD CULTURE BOTTLES RAC - pending @ 05/06/2022 10:34 RECEIVED 2 BLOOD CULTURE BOTTLES L FOREARM - pen ding @ 05/06/2022 10:00 Active and Recently Outpatient Medicatio ns (including [...] ONE TABLET BY MOUTH EV KRUNAL DAY ACTIVE FOR DIABETES -TAKE 30 MINUTES BEFORE MEAL 6) MELATONIN 3MG CAP/TAB TAKE 1 TABLET BY MOUTH AT ACTIVE BEDTIME 7) METFORMIN HCL 1000MG TAB TAKE ONE-HALF TABLET BY ACTIVE MOUTH TWO TIMES A DAY 8) METOPROLOL SUCCINATE 200MG SA TAB TAKE ONE-ARAUZ LF ACTIVE TABLET BY MOUTH EVERY DAY 9) NYSTATIN 398830 UNT/GM CREAM APPLY THIN LAYER ACTIVE TOPICALLY TWICE A DAY NEEDED FOR FUNGAL INFECTION EXTERNAL USE ONLY SKIN FOLDS 10) SERTRALINE HCL 100MG TAB TAKE ONE-HALF TABLE T BY ACTIVE MOUTH EVERY DAY 11) SYRINGE 2.5-3ML/NDL 22G 1IN USE 1 SYRINGE AC TIVE INTRAMUSCULAR DIRECTED FOR CYANOCOBALAMIN INJECTION *DISPOSE OF IN A HARD-PLASTIC CONTAIN ER WITH A SCREW-ON LIDCONTACT GARBAGE HAULER FOR PROPER DISPOSAL Inactive Outpatient Medications Status 1) ACCU-CHEK GUIDE (GLUCOSE) TEST STRIP USE 1 ST RIP TWICE WEEKLY TO CHECK BLOOD SUGAR--USE WITHIN 3 MINUTES OF REMOVING FROM CONTAINER 2) ALLOPURINOL 100MG TAB TAKE ONE TABLET BY MOUT H EVERY DAY 3) ATORVASTATIN CALCIUM 10MG TAB TAKE ONE-HALF T ABLET BY DISCONTINUED MOUTH EVERY DAY 4) ATORVASTATIN CALCIUM 10MG TAB TAKE ONE-HALF T ABLET BY DISCONTINUED MOUTH EVERY DAY (EDIT) 5) CHOLECALCIF 25MCG (D3-1,000UNIT) TAB TAKE 200 0UNIT BY MOUTH EVERY DAY FOR VITAMIN-D SUPPLEMENTATION. 6) CYANOCOBALAMIN 100MCG TAB TAKE TWO TABLETS BY MOUTH DISCONTINUED EVERY DAY 7) FINASTERIDE 5MG TAB TAKE ONE TABLET BY MOUTH EVERY DISCONTINUED DAY FOR PROSTATE 8) FUROSEMIDE 20MG TAB TAKE ONE TABLET BY MOUTH EVERY DAY FOR LOWER EXTREMITY SWELLING; OKAY TO TAKE AN EXTRA DOSE DAILY NEEDEDFOR INCREASED SWELLIN G. 9) FUROSEMIDE 20MG TAB TAKE ONE TABLET BY MOUTH EVERY DISCONTINUED DAY FOR LOWER EXTREMITY SWELLING; OKAY TO TAKE AN (EDIT) EXTRA DOSE DAILY NEEDED FOR INCREASED SWELLI NG. 10) METFORMIN HCL 1000MG TAB TAKE ONE-HALF TABLE T BY DISCONTINUED MOUTH TWO TIMES A DAY 11) METOPROLOL SUCCINATE 200MG SA TAB TAKE ONE-H HALF-WAY DISCONTINUED TABLET BY MOUTH EVERY DAY 12) PIOGLITAZONE HCL 30MG TAB TAKE ONE TABLET BY MOUTH EVERY MORNING FOR BLOOD SUGAR 13) RIVAROXABAN 20MG TAB TAKE ONE TABLET BY MOUT H EVERY EVENING WITH A MEAL TO PREVENT BLOOD CLOTS 24 Total Medications No Active Remote Medications for this patient Imaging CXR: Impression: Cardiac silhouette is mildly enlarged. There is mild pulmonary venous congestion. No definite pleural effusion . No pneumothorax seen. CT head: Impression: -Significantly limited exam from motion artifac t. -Given this limitation, no acute intracranial C T findings/ CT C-spine: Impression: -Motion artifact limits the exam. -Given this limitation, no acute osseous abnorm ality. -Moderate multilevel degenerative change throug hout the cervical spine. -Ancillary findings, above. CT Abd/pelvis: Impression: -The exam is limited by motion [...] with overlying ate lectasis. -Ancillary findings, above. Select imaging reviewed from [place]: CT thoracic spine wo con IMPRESSION: 1. Motion artifact 2. Mild kyphosis of the midthoracic spine. 3. Acute subacute compression fracture of the T1 1 vertebral body with 50-60 percent loss of height. No retropulsion of fract ure fragments. 4. Chronic compression and anterior wedging of T 6, T7 and T8. Thoracic spondylosis 5. At T10-11, disc degeneration. Mild narrowing of the spinal canal and both neural foramina 6. At T11-12, disc degeneration. Mild narrowing of spinal canal and bilateral neural foramina. 7. 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 #. Severe sepsis #. Concern for urosepsis vs. discitis #. H/o urosepsis 2/2 prostatitis December 2021, woodard obstruction 02/2021 #. Readmission for prostatitis w/ sepsis and UTI December 2021 Febrile w/ WBC 18.82, lactate 3.62, WBC 18.82 w/ neutrophilic predominance. Likely source is urosepsis g iven UA w/ 500 LE and 78 WBC's, however no bacteria were present (possible colonization 2/2 woodard?). Other possible source is discitis given mild prevertebral inflamm ation and gas seen w/in T10 vertebral, although possibly 2/2 inflammation in the settin g of his known thoracic vertebral fracture s/p recent fall. - s/p vanc and ciprofloxacin in the ED - continue w/ vanc and Zosyn (broaden given poss ibility of discitis) - MRSA nares ordered - f/u blood and urine cultures - trend lactate - s/p 1L IVF's; repeat lactate still elevated at 3.1. Will give additional 1L and repeat lactate after to guide further fluid resuscitation - MR thoracic spine ordered (to be obtained in t he AM if patient is able to follow commands more sufficiently and move aroun d less) #. Recent seizure activity? Per [facility] records: 'witnessed seizure around 1830 05/02/22, lasted 30- 60 seconds described as sudden slinching w/ face turning red and sweating profusely, reportedly postictal and somnolent af terward but then became more arousable. No known seizure history. Pt was star nola on quietiapine prior to seizure, which was noted to potentially lower SZ threshold. Pt was also receiving PRN ativan at [facility] prior to [place] a dmission for 'agitation.' - Seizure precuations, monitor - Caution use of seizure threshold lowering medi cations #. Subacute T11 compression fracture Associated with 50-60 percent loss of height. No retropulsion of fracture fragments. Suspected to have occurred after a fall on 02/05/22, went to the ER w/ CT done at that time. Following w/ [facility] since then. He was initially in a TLSO brace and on ox ycodone, now no longer on either. - Scheduled Tylenol - FIELD FOREMAN calcitonin intranasal spray #. Hypomagnesesmia Mg 1.5 on admission - replete Chronic conditions: #. HFpEF #. HTN #. HLD Last EF per [facility] report: LVEF 65% 2020 w/ mild RV enlargmeent, mild to moderate tricuspid regurgitation. Managed by cardiology at [facility] and in [facility] by Dr. Harrison. - HOLD FIELD FOREMAN metoprolol succinate 100 mg qday give n sepsis - continue FIELD FOREMAN atorvastatin 10 mg qday - HOLD FIELD FOREMAN lasix 20 mg qday #. Chronic AFib - continue FIELD FOREMAN rivaroxaban 20 mg qday - HOLD FIELD FOREMAN metoprolol succinate 100 mg qday give n sepsis as noted above #. Unspecified dementia #. H/o delirium #. Resting tremor Followed by neurology outpatient. MRI/MRA brain 01/2022 showed moderate age- related changes including at rophy and small vessel ischemic changes. Pt has had frequent suspected delirium in the past, noted to be worsened by prednisone and benadryl. - sertaline 50 mg daily #. Elevated PSA with BPH #. s/p TURP 02/[address] Moreno at [facility] - FIELD FOREMAN finasteride 5 mg daily #. T2DM Last A1c 8.2% 01/2022, h/o hypoglycemic episodes in march 2021 after which regimen was deescalated. FIELD FOREMAN regimen: me tformin 500 mg BID, pioglitazone 30 mg qAM, glipizide 5 mg qAM. - Holding FIELD FOREMAN meds - LDSSI - Hypoglycemia protocol #. CKD Stage III Baseline Cr 1.2-1.7, at baseline Cr 1.3 on admis linus. - Monitor BMP #. Mild anemia, normocytic #. H/o B12 deficiency Hgb 11.6, appears w/in baseline -. On outpat ient B12 injections through neuro. #. OBIE - FIELD FOREMAN CPAP QHS #. Gout - FIELD FOREMAN allopurinol 100 mg qday #. Insomnia - FIELD FOREMAN melatonin 3 mg QHS #. Yeast rash in skin folds - FIELD FOREMAN nystatin PRN MED REC NOT YET COMPLETED AT TIME OF CURRENT NOT ES/ORDERS Fluids/Electrolytes/Nutrition (FEN): Regular t, RN swallow supervision Deep Vein Thrombosis (DVT) Prophylaxis: Sanitation Truck Driver al + FIELD FOREMAN rivaroxaban Code Status: DNR/DNI Disposition: Admit to acute care medicine To be formally staffed in the AM, Gayla Betts PGY2 Internal Medicine /es/ GAYLA BETTS MD RESIDENT PHYSICIAN Signed: 05/06/2022 21:00 05/06/2022 ADDENDUM STATUS: COMPLETED Called by [facility]bio lab for G CHANI POSITIVE COCCI IN PAIRS AND CLUSTERS present in the ANAEROBIC bottle. MRSA nares is also positive - Continue current vanc + zosyn /ronni/ GAYLA BETTS MD RESIDENT PHYSICIAN Signed: 05/06/2022 21:07 05/06/2022 ADDENDUM STATUS: COMPLETED GPC's in pairs and clusters now in 3/4 blood cul tures on admission. Overall concerning for more likely discitis than urinary source, particularly considering no bacteria were present in UA. Disc itis is possibly secondary seeding to alternative source. Per POA Wade the pt has no hardware in his body. - CRP added on - Repeat blood culture in the AM ordered - TTE ordered (can cancel if not staph) - ID consult ordered (to be seen in the AM) (can cancel if not staph) /ronni/ GAYLA BETTS MD RESIDENT PHYSICIAN Signed: 05/06/2022 22:04 May 06, 2022 11:27 AM RADIOLOGY NOTE: VALENTINE SHELL [facility] LOCAL TITLE: RADIOLOGY CONTRAST NOTE STANDARD TITLE: RADIOLOGY NOTE DATE OF NOTE: MAY 06, 2022@11:27 ENTRY DATE: MAY 06, 2022@11:27:19 AUTHOR: VALENTINE SHELL EXP COSIGNER: URGENCY: STATUS: COMPLETED Medical History: Labs: Collection DT Specimen Test Name Result Units Re f Range 05/06/2022 10:00 PLASMA CREATININE 1.3 H mg/dL 0 .7 - 1.2 09/20/2021 06:38 PLASMA ESTIMATED GFR(eGF 38 L R ef: >=60 05/06/2022 10:00 PLASMA CREAT EGFR(CKD-EP 54 L R ef: >=60 Exam Preparation: Consent obtained: Verbal informed consent Yes Contrast Administration: Adminstered IV contrast per CT protocol/MRI pro tocol IV non-ionic iodinated contrast media with sali ne flush Omnipaque 350 100 ml /yvette SHELL, RT(R)(CT) STACKER DRIVER (DRT) Signed: 05/06/2022 11:27 May 06, 2022 10:53 AM COMMUNICATION NOTE: LEANNA COTE [facility] LOCAL TITLE: CRITICAL LAB NOTIFICATION STANDARD TITLE: COMMUNICATION NOTE DATE OF NOTE: MAY 06, 2022@10:53 ENTRY DATE: MAY 06, 2022@10:53:54 AUTHOR: LEANNA COTE EXP COSIGNER: URGENCY: STATUS: COMPLETED CRITICAL LAB VALUE Received a call from Lab at Apr@10:55 Critical Lab Value: Troponin 0.035 Provider Kristel Maddie was notified at Apr@10 :55 of abnormal lab value. /es/ LEANNA COTE KILN TRANSFER OPERATOR NURSE Signed: 05/06/2022 10:54 May 06, 2022 10:37 AM PHYSICIAN EMERGENCY DEPT NOTE: ISHAAN VILLANUEVA [facility] LOCAL TITLE: EMERGENCY DEPT NOTE STANDARD TITLE: PHYSICIAN EMERGENCY DEPT NOTE DATE OF NOTE: MAY 06, 2022@10:37 ENTRY DATE: MAY 06, 2022@10:37:30 AUTHOR: MODESTA VILLANUEVA EXP COSIGNER: URGENCY: STATUS: COMPLETED EMERGENCY DEPT NOTE Has ADDENDA Personal Protective Equipment (PPE): including P APR Patient was in mask in exam room. MD/PA/JBOSS ARCHITECT used PPE during every encounter with th e patient. Nurse's note reviewed as available. Chief Complaint: The patient is a 86 yo MALE com plaining of: fever, back pain, hyperglycemia History of present illness: The patient is a 86 yo MALE here with above. Patient is an 86-year-old gentleman who arrives from [facility] via EMS with report of fever, back pain, and hypeglycemi a. Patient is reportedly on scheduled acetaminophen at [facility]. He is f ebrile despite acetaminophen. Regarding back pain, he was noted to have known compression fractures in thoracic spine, actively on fentany l, received fentanyl in route, and per family reportedly had follow-up s everal days ago prompting admission to [facility] where patient w as noted to be confused with seizure noted. Patient does not provide history. FCI d ocumentation is reviewed. Switcher Wade, niece Araceli, and nephew Mahamed pro vide history as well. They describe fall with closed he ad injury associated blood thinner managed at [facility] with care including CT head whi ch was reportedly negative. [facility] course by their review was complicated by seizure and Woodard catheter placement with possibility of Woodard trauma. The patient reportedly pulled on the catheter. Regarding falls, patient is noted to hav e thoracic spine wedge fracture. He is also noticed that the bruising left lower back. Brace is intended. Regarding fever, focus was initially back pain a nd foul-smelling urine with presumed UTI with sepsis and possibility of kidn ey infection and less likely spine infection. This is discussed with family. After report of head injury and seizure, CT head, CT C-spine, c-collar, and consideration for seizure related aspiration pneumonia are discussed. They report that acetaminophen is given on a scheduled basis. It is also noted stan t insulin intended for hyperglycemia and other orde rs were intended to be held for patient to transfer here. It is not clear at this time, when last acetaminophen dose was given and whether patient was given short acting insulin. Again, patient does not contribute to HPI. [facility] home documentation is reviewed and care thus far has been discussed wi th family. Allergies: SIMVASTATIN (Feb 29, 2004) CEPHALEXIN (Mar 01, 2004) Review of Systems: A complete 10 point review of systems is negative unless otherwise noted in HPI or below. Past Medical History: Active problems - Computerized Problem List is t he source for the followin. Type 2 diabetes mellitus (SNOMED CT 57509365 ) 2. OBESITY, UNSP 3. Psoriasis * 4. Social and personal history finding - Lives alone. Has brother in [place]. Friends felipe breaux. 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 5. History of adenomatous polyp of colon - Last c-scope 05/09/15 at [place]. Two small polyp s. - 5 year follow up if appropriate. 6. Elevated PSA - follows with urology at [facility] - with BPH on terazosin - February [...] followed by podiatry in the community in [facility] 12. Gout - on allopurinol Habits: Unobtainable Medications: Active Outpatient Medications (excluding Supplie s): Outpatient Medications Status 1) ATORVASTATIN CALCIUM 10MG [...] 8) METOPROLOL SUCCINATE 200MG SA TAB TAKE ONE-ARAUZ LF ACTIVE TABLET BY MOUTH EVERY DAY 9) NYSTATIN 102924 UNT/GM CREAM APPLY THIN LAYER ACTIVE TOPICALLY TWICE A DAY NEEDED FOR FUNGAL INFECTION EXTERNAL USE ONLY SKIN FOLDS 10) SERTRALINE HCL 100MG TAB TAKE ONE-HALF TABLE T BY ACTIVE MOUTH EVERY DAY OCT reviewed; rivaroxaban noted on OCT. Physical Exam See founding partner note for vital signs General: moderate distress, moaning with cares a nd position changes Head: NC/AT Eyes: PERRL; patient fights pupillary assessment Neck: supple initially, c-collar added Back: nontender and without stepoff; ecchymosis noted left low back Cardiovascular: RRR s1s2 no m/r/g Respiratory: Lungs - CTAB without crackles or wh eezes Abdominal: s/nt/nd +BS Neuro: moaning in pain, grossly nonfocal Skin: warm and dry groin intertrigo with what appears to be powder foul smelling urine in Depends Ekg Interpretation: rate 90, afib, no acute isch emic changes Last 48 Hrs Lab Results from: MAY 06, 2022 10:37 POC PH: 7.410 POC PCO2: 28.9 L POC PO2: 82 H POC TCO2: 19 L POC HCO3: 18.3 L POC BE ECT: -6 L POC SO2: 96 H POCLACT: 3.62 NEW APTT: 37.8 H INR 1998: 2.5 H PROTHROMBIN TIME (04/22): 29.2 H WBC: 18.82 H RBC: 3.70 L HGB: 11.6 L HCT: 35.0 L MCV: 94.6 MCH: 31.4 MCHC: 33.1 RDW: 14.6 H PLT: 209 MPV: 11.0 H SEGS: pending LYMPHS: pending FINGERSTICK GLUCOSE: 369 H Additional labs pending Imaging: Head CT, C-spine CT, abdominal CT, and portable chest x-ray pending ASSESSMENT/PLAN: 86 yo MALE with falls, confusion, closed head in jury, fevers, back pain, changes, hyperglcyemia Clinical presentation is most consistent with UT I and/or pyelonephritis with sepsis. With recent hospitalization at [facility], patient was reportedly catheterized. Falls are noted . Patient reportedly underwent imaging at [facility]. This will be rep eated. With report of seizure, seizure leading to injury and/or confusion and/or aspira tion pneumonia are considerations. Covid is a consideration. Sepsis order set was entered initially w ith empiric coverage for genitourinary and intra-abdominal coverage. Initially, Covid, infection, and spine infection were considered. With seizure, aspiration pneumonia is an additional consideration. Fluids ordered through sepsis order set were ambar nged from normal saline to lactated Ringer's Covid swab was added. CT abdom en was included. Fentanyl 25mcg IV, and lipase were added, After review with college basketball coach Wade, niece Araceli, and nephew rest, CT head, CT C- spine, and Release of Information to [facility] were added. noted: COVID-19 (PFIZER), MRNA, LNP-S, P* 4 01/09/2022 [place]* 3 05/15/2021 [place]* <C> 2 10/12/2020 [place] <C> 1 09/19/2020 [place] <C> INFLUENZA, INJECTABLE, QUADRIVALE* 05/15/2021 [place] Test results communicated with patient as availa ble. Condition on discharge: Anticipate admission. Le yoana of care is not yet clear. /ronni/ MODESTA VILLANUEVA MD STAFF PHYSICIAN Signed: 05/06/2022 10:58 05/06/2022 ADDENDUM STATUS: COMPLETED Troponin is positive. This is new on trend revie w. Type II MN is suspected. Aspirin will be considered after review of head CT. Urine is dirty. Patient is receiving emmpric abx coverage for UTI with sepsis. COVID is pending. POC lactate is positive. This will be repeated a fter fluid bolus. Procalcitonin is elevated. Creatinine is mildly elevvated. Patient iks getting fluids. Glucose is elevated and noted in urine. Initial care is fluids. Will recheck glucose (fingerstick) and consider insul in. Leukocytosis with neutrophilia is noted. Anemia is noted, baseline. Last 48 Hrs Lab Results from: MAY 06, 2022 11:16 APPEARANCE: TURBID UR COLOR: YELLOW SPECIFIC GRAVITY: 1.020 UR BLOOD: 2+ UR BILIRUBIN: NEGATIVE UR KETONES: 1+ UR GLUCOSE: >1000 UR PROTEIN: 70 UR PH: 5.5 WBC/HPF: 78 H RBC/HPF: 11 H BACTERIA: NONE SEEN HYALINE/CASTS/LPF: 1 SQUAMOUS EPITHELIAL: <1 NITRITE, URINE: NEGATIVE LEUKOCYTE ESTERASE: 500 POC PH: 7.410 POC PCO2: 28.9 L POC PO2: 82 H POC TCO2: 19 L POC HCO3: 18.3 L POC BE ECT: -6 L POC SO2: 96 H POCLACT: 3.62 NEW APTT: 37.8 H INR 1998: 2.5 H PROTHROMBIN TIME (04/22): 29.2 H TROPONIN I (06/22): 0.035 H* GLUCOSE: 410 H UREA NITROGEN: 25 CREATININE: 1.3 H SODIUM: 137 POTASSIUM: 4.1 CHLORIDE: 107 CO2: 17 L CALCIUM: 9.0 PO4: 2.5 PROTEIN,TOTAL: 6.1 ALBUMIN: 3.1 L BILIRUBIN,TOTAL: 1.2 MAGNESIUM: 1.5 L ANION GAP: 13 LIPASE,ERICA: <4 ALKALINE PHOSPHATASE(37C): 119 SGOT(37C): 9 SGPT(37C): 23 PROCALCITONIN: 22.29 H CREATININE EGFR (CKD-EPI): 54 L WBC: 18.82 H RBC: 3.70 L HGB: 11.6 L HCT: 35.0 L MCV: 94.6 MCH: 31.4 MCHC: 33.1 RDW: 14.6 H PLT: 209 MPV: 11.0 H SEGS: 97.0 LYMPHS: 1.5 MONOCYTES: 1.0 MYELO: 0.5 NORMOCYTIC: YES NORMOCHROMIC: YES NEUTROPHIL, ABSOLUTE: 18.26 H MONOCYTE, ALTERNATE ABS: 0.19 LYMPHS, ALTERNATE ABS: 0.28 L MYELOCYTE, ABSOLUTE: 0.09 RBC MORPHOLOGY: PRESENT FINGERSTICK GLUCOSE: 369 H /es/ MODESTA VILLANUEVA MD STAFF PHYSICIAN Signed: 05/06/2022 11:20 05/06/2022 ADDENDUM STATUS: COMPLETED COVID is negative Repeat lactate and FSBG are pending Head CT, c-spine CT, CXR, and abdominal CT are p ending. Family updated (outside due to visitor restricti ons). Last 48 Hrs Lab Results from: MAY 06, 2022 11:56 APPEARANCE: TURBID UR COLOR: YELLOW SPECIFIC GRAVITY: 1.020 UR BLOOD: 2+ UR BILIRUBIN: NEGATIVE UR KETONES: 1+ UR GLUCOSE: >1000 UR PROTEIN: 70 UR PH: 5.5 WBC/HPF: 78 H RBC/HPF: 11 H BACTERIA: NONE SEEN HYALINE/CASTS/LPF: 1 SQUAMOUS EPITHELIAL: <1 NITRITE, URINE: NEGATIVE LEUKOCYTE ESTERASE: 500 COVID-19 CEPHEID: Not Detected POC PH: 7.410 POC PCO2: 28.9 L POC PO2: 82 H POC TCO2: 19 L POC HCO3: 18.3 L POC BE ECT: -6 L POC SO2: 96 H POCLACT: 3.62 NEW APTT: 37.8 H INR 1998: 2.5 H PROTHROMBIN TIME (04/22): 29.2 H TROPONIN I (06/22): 0.035 H* GLUCOSE: 410 H UREA NITROGEN: 25 CREATININE: 1.3 H SODIUM: 137 POTASSIUM: 4.1 CHLORIDE: 107 CO2: 17 L CALCIUM: 9.0 PO4: 2.5 PROTEIN,TOTAL: 6.1 ALBUMIN: 3.1 L BILIRUBIN,TOTAL: 1.2 MAGNESIUM: 1.5 L ANION GAP: 13 LIPASE,ERICA: <4 ALKALINE PHOSPHATASE(37C): 119 SGOT(37C): 9 SGPT(37C): 23 PROCALCITONIN: 22.29 H CREATININE EGFR (CKD-EPI): 54 L WBC: 18.82 H RBC: 3.70 L HGB: 11.6 L HCT: 35.0 L MCV: 94.6 MCH: 31.4 MCHC: 33.1 RDW: 14.6 H PLT: 209 MPV: 11.0 H SEGS: 97.0 LYMPHS: 1.5 MONOCYTES: 1.0 MYELO: 0.5 NORMOCYTIC: YES NORMOCHROMIC: YES NEUTROPHIL, ABSOLUTE: 18.26 H MONOCYTE, ALTERNATE ABS: 0.19 LYMPHS, ALTERNATE ABS: 0.28 L MYELOCYTE, ABSOLUTE: 0.09 RBC MORPHOLOGY: PRESENT FINGERSTICK GLUCOSE: 369 H /ronni/ MODESTA VILLANUEVA MD STAFF PHYSICIAN Signed: 05/06/2022 11:56 05/06/2022 ADDENDUM STATUS: COMPLETED CXR - Impression: Cardiac silhouette is mildly enlarged. There is mild pulmonary venous congestion. No definite pleural effusion . No pneumothorax seen. head CT, c-spine CT, and abdominal CT pending Longer acting opioid will be provided for back p ain. hydromorphone 0.5mg IV /ronni/ MODESTA VILLANUEVA MD STAFF PHYSICIAN Signed: 05/06/2022 13:24 05/06/2022 ADDENDUM STATUS: COMPLETED head CT, c-spine CT, consideration for r emoval of cellar, abdominal CT, review with family, and review with inpatient team are pending. Will sign out at change of shift. /ronni/ MODESTA VILLANUEVA MD STAFF PHYSICIAN Signed: 05/06/2022 15:48 Receipt Acknowledged By: 05/06/2022 18:08 /ronni/ CHAIM GALDAMEZ MD ELASTIC CUTTER/ED/MOD MOONLIGHTER 05/06/2022 ADDENDUM STATUS: COMPLETED Reviewed results of imaging as below CT A/P Impression: -The exam is limited by motion [...] with overlying ate lectasis. -Ancillary findings, above. CT head Impression: -Significantly limited exam from motion artifac t. -Given this limitation, no acute intracranial C T findings. CT C spine Impression: -Motion artifact limits the exam. -Given this limitation, no acute osseous abnorm ality. -Moderate multilevel degenerative change throug hout the cervical spine. -Ancillary findings, above. Given above, sources for infection urinary vs GI . Will continue abx and admit to medicine for ongoing care. Signed out to [facility] provider in stable condition. /ronni/ CHAIM GALDAMEZ MD ELASTIC CUTTER/ED/STEVEN MONTANEZ Signed: 05/06/2022 18:10 May 06, 2022 09:45 AM NURSING EMERGENCY DEPT TRIAGE NOTE: ROSA ELENA JIM [facility] LOCAL TITLE: EMERGENCY DEPARTMENT NURSING TRIAG E NOTE STANDARD TITLE: NURSING EMERGENCY DEPT TRIAGE NO TE DATE OF NOTE: MAY 06, 2022@09:45 ENTRY DATE: MAY 06, 2022@11:20:05 AUTHOR: ROSA ELENA TAPIA EXP COSIGNER: URGENCY: STATUS: COMPLETED EMERGENCY DEPARTMENT NURSING TRIAGE NOTE Arauz s ADDENDA Emergency Department/Urgent Care Center Triage Patient age:86 Sex: MALE On arrival patient was: TEREZA Patient phone number: Allergies: SIMVASTATIN (Feb 29, 2004) CEPHALEXIN (Mar 01, 2004) Subjective/Chief Complaint: Pt brought in by olu DE LOS SANTOS from [facility] with reports of back pain, fever, and hyperglycemia. Objective: Per report pt was recently evaluated at [facility] after a fall. He was dc'd home yet continues to have increased ba ck pain. Noted bruising to Right lower back, multiple open skin tear to R f orearm and L forearm. Pt is Alert on arrival following commands. Noted dry m ucus membranes on assessment. The patient is fall risk. Pl aced in strecher, call light in reach and side rails up x2. Vital Signs * Temperature 101.2 F (38.4 C) Pulse 84 Respirations 22 Blood Pressure 117/56 Pain scale recorded: 10 Pulse Oximetry 97 Room Air PAIN INTENSITY: (Patient rates the pain. 0 = no pain; 10 = worst pain) Is your pain new with this visit? (acute or chr onic) Current Pain rating score: 3 (04/02/2022 13:22) Pain score at worst: 10 Pain score at best: 0 Location of pain: lower back Description of pain: Duration: Aggravating factors: Alleviating factors: Emergency Severity Index (VARINDER) level Level 2 Current Medications: Active Outpatient Medications (including Supplie s): Active Outpatient Medications Status 1) ATORVASTATIN CALCIUM [...] ONE TABLET BY MOUTH EV KRUNAL DAY ACTIVE FOR DIABETES -TAKE 30 MINUTES BEFORE MEAL 6) MELATONIN 3MG CAP/TAB TAKE 1 TABLET BY MOUTH AT ACTIVE BEDTIME 7) METFORMIN HCL 1000MG TAB TAKE ONE-HALF TABLET BY ACTIVE MOUTH TWO TIMES A DAY 8) METOPROLOL SUCCINATE 200MG SA TAB TAKE ONE-ARAUZ LF ACTIVE TABLET BY MOUTH EVERY DAY 9) NYSTATIN 298310 UNT/GM CREAM APPLY THIN LAYER ACTIVE TOPICALLY TWICE A DAY NEEDED FOR FUNGAL INFECTION EXTERNAL USE ONLY SKIN FOLDS 10) SERTRALINE HCL 100MG TAB TAKE ONE-HALF TABLE T BY ACTIVE MOUTH EVERY DAY 11) SYRINGE 2.5-3ML/NDL 22G 1IN USE 1 SYRINGE AC TIVE INTRAMUSCULAR DIRECTED FOR CYANOCOBALAMIN INJECTION *DISPOSE OF IN A HARD-PLASTIC CONTAIN ER WITH A SCREW-ON LIDCONTACT GARBAGE HAULER FOR PROPER DISPOSAL Current Problems: Type 2 diabetes mellitus ([facility] 99428900) OBESITY, UNSP (ICD-9-CM 278.00) Psoriasis (ICD-9-CM 696.1) Social and personal h istory finding ([facility] 934512983) History of adenomatous polyp of colon (SElevated PSA ([facility] [id number]) Chronic kidney disease stage 3 (SCT 4331Diastolic heart failure ([facility] [id number]) Chronic atrial fibrillation ([facility] [id number] of hospitalization (ICD-10-CM R69.) corns and calluses (ICD-10-CM R69.) Gout ([facility] 90 629286) Coronavirus Disease 2019 (COVID-19) Screen The patient was asked if in the last 14 days the y have had new onset of any COVID-19 symptoms. They report the following: Fever Within the past 14 days, the patient reports no exposure to someone with a febrile/respiratory illness or someone with a kn own or suspected case of COVID-19 (within 6 feet for > 15 minutes). Result: Patient has a positive symptom or exposure and requires further evaluation. Date of the earliest symptom: Date: May 05, 2022 Result: Patient has a positive symptom or exposure and requires further evaluation. Date of the earliest symptom: Date: May 05, 2022 Suicide Screen: [place] Suicide Severity Rating Scale (C-SSRS) screener 1. Over the past month, have you wished you wer e or wished you could go to sleep and not wake up? No 2. Over the past month, have you had an y actual thoughts of killing yourself? No 3. Over the past month, have you been thinking about how you might do this? Response not required due to responses to other questions. 4. Over the past month, have you had th eliza thoughts and had some intention of acting on [...] or prepared to do anything to end your life (for e xample, collected pills, obtained a gun, gave away valuables, went to e roof but didn't jump)? No 8. If YES, was this within the past 3 months? Response not required due to responses to other questions. /yvette TAPIA RN REGISTERED NURSE Signed: 05/06/2022 11:24 05/06/2022 ADDENDUM STATUS: COMPLETED C-Collar placed approx 20 minutes after arriving . /yvette TAPIA RN REGISTERED NURSE Signed: 05/06/2022 11:39
--- OUTSIDE RECORDS SUMMARY | 2022-05-15 09:27 | XMS_ITS ---
HOSPITALIZATION [facility] Encounter Summary Created on:May 06, 2022 Patient:JOSE EDDY Sex:Male :1935 Author Organization [facility] rs Address [address] [place] [address] Support Name Relationship Address Phone WADE LORENZO Unavailable [address] [place] [address] WADE LORENZO Unavailable [phone] [place] [address] ARACELI MARSHALL Unavailable [address] [place] [address] FLORINDA MARSHALLA Unavailable [address] [place] [address] Insurance Providers: All historical and current Section Date Range: From patient's date of to the date document was created.This section includes the names of all active insurance providers for the patient. Insurance Type of Plan Start of End of Group Member Insurance Policy P [facility]'s Provider Coverage Name Policy Policy Number ID Provider's Bales's Relationship Coverage Coverage Telephone Name to Policy Number Bales [place] MED[place]ARE MCR Aug 19, [id number] Kristel EDDY [facility] (WNR) ADVANTAGE (WNR) 2016 8 [id number] [phone] [facility] 1 [place] MEDICARE M[place] Aug 19, [id number] Kristel EDDY [facility] (WNR) ADVANTAGE (WNR) 2017 03 [id number] [phone] [facility] 1 Selected Encounter This section includes the information on record at [place] for the Encounter. Date/Time Encounter Type Encounter Description Reason Provider Source May 06, 2022 Inpatient Visit HOSPITALIZATION Rafael AYALA 06:30 PM [facility] Encounter Template Text not used by [place] Plan of Treatment: Future Appointments (+ 6 months) and Future Tests (+/- 45 days) The Plan of Treatment section includes future care activities for the patient [facility] This section includes future appointments and future orders which are active, pending orscheduled.Future Appointments This section includes appointments that were scheduled to occur 6 months from the date of the Encounter, up to a maximum of 20 appointments. The data comes from all [place] treatment facilities. Appointment Date/Time Appointment Type Appointment Facili ty Name May 11, 2022 06:15 PM AMBULATORY - NONE [facility] Jul 23, 2022 08:00 AM AMBULATORY - NEUROLOGY [facility] Active, Pending, and Scheduled Orders This [...] - Chemistry URINALYSIS URINE WC ON CE [facility] AM Order Apr 30, 2022 08:21 Laboratory - CULTURE & SUSCEPTIBILITY [facility] AM Microbiology Order URINE WC May 06, 2022 12:00 Laboratory - Blood ABO/RH - LAB BLOOD [facility] AM Bank Order May 06, 2022 10:11 Laboratory - Blood TYPE & SCREEN - LAB [facility] AM Bank Order BLOOD WC May 06, 2022 10:[address] [facility] AM Medication Order May 06, 2022 10:28 [facility] AM Infusion Order May 06, 2022 10:34 [facility] AM Infusion Order May 06, 2022 10:41 [facility] AM Infusion Order May 06, 2022 12:15 [facility] PM Medication Order May 06, 2022 01:31 [facility] PM Medication Order May 06, 2022 04:49 [facility] PM Medication Order May 07, 2022 01:00 Laboratory - CULTURE & SUSCEPTIBILITY [facility] PM Microbiology Order BLOOD WC ONCE May 11, 2022 09:07 Laboratory - CULTURE & SUSCEPTIBILITY [facility] AM Microbiology Order BLOOD WC May 11, 2022 09:07 Laboratory - CULTURE & SUSCEPTIBILITY [facility] AM Microbiology Order BLOOD WC May 11, 2022 09:38 Laboratory - Chemistry EOSINOPHIL SMEAR,URINE [facility] AM Order URINE WC ONCE May 11, 2022 09:38 Laboratory - Chemistry URINALYSIS URINE WC ON CE [facility] AM Order May 11, 2022 09:38 Laboratory - Chemistry FENA URINE WC ONCE [facility] AM Order Lab Results: +/- 30 [...] Reference Range Comment May 11, 2022 11:13 [facility] FINGERSTICK GLUCOSE Speci men Type: BLOOD AM Comment: Mark casillas Nurse Notified Ordering Provid er: CODIE LEON Report Released Date/Time: May 11, 2022 11:53 AM Reporting Lab: [facility] [address] [facility] [address] [facility] [address] FINGERSTICK GLUCOSE 367 H 70-100 May 11, 2022 07:05 AM [facility] CK,TOTAL Specim en Type: PLASMA No comment enter ed. Ordering Provid er: CODIE LEON Report Released Date/Time: May 11, 2022 09:08 AM Reporting Lab: [facility] [address] [facility] [address] Performing Lab: [facility] [address] CK,TOTAL 16 L 39-208 May 11, 2022 07:05 [facility] BASIC METABOLIC Specimen Type: PLASMA AM PANEL+MG No comment enter ed. Ordering Provid er: OG DIAL Report Released Date/Time: May 11, 2022 04:46 AM Reporting Lab: [facility] [address] [facility] [address] Performing Lab[facility] [address] CREATININE 1.6 H 0.7-1.2 UREA NITROGEN 28 H 8-26 GLUCOSE 396 H 70-100 SODIUM 150 H 136-145 POTASSIUM 3.7 3.5-5.1 CHLORIDE 120 H 98-107 CO2 23 22-29 CALCIUM 8.4 8.4-10.2 MAGNESIUM 2.1 1.6-2.6 ANION GAP 7 5-15 CREAT EGFR(CKD-EPI) 42 L >60 May 11, 2022 07:05 [facility] LIVER FUNCTION TESTS Spec imen Type: PLASMA AM No comment enter ed. Ordering Provid er: CODIE LEON Report Released Date/Time: May 11, 2022 09:08 AM Reporting Lab: [facility] [address] [facility] [address] Performing Lab: [facility] [address] [facility] [address] BILIRUBIN, TOTAL 1.6 H 0.2-1.2 ALKALINE PHOSPHATASE 102 40-150 ALT/SGPT 42 <55 AST/SGOT 30 <34 GAMMA GTP 52 <64 DIR. BILIRUBIN 1.2 H <0.5 May 11, 2022 07:05 AM [facility] BNP Specim en Type: PLASMA No comment enter ed. Ordering Provid er: CODIE LEON Report Released Date/Time: May 11, 2022 09:15 AM Reporting Lab: [facility] [address] [facility] [address] Performing Lab: [facility] [address] [facility] [address] BNP 59 <99 May 11, 2022 07:05 AM [facility] CBC Specim en Type: BLOOD No comment enter ed. Ordering Provid er: OG DIAL Report Released Date/Time: May 11, 2022 04:46 AM Reporting Lab: [facility] [address] [facility] [address] Performing Lab: [facility] [address] [facility] [address] WBC 15.93 H 4.0-11.0 RBC 3.60 L 4.6-6.2 HGB 11.2 L 13.5-17.9 HCT 35.3 L 41-54 MCV 98.1 80-100 MCH 31.1 27-33 MCHC 31.7 L 32.0-37.5 PLT 231 150-400 MPV 11.2 H 7.4-10.4 RDW 15.2 H 11.5-14.5 May 11, 2022 06:14 [facility] FINGERSTICK GLUCOSE Speci men Type: BLOOD AM Comment: Mark casillas Nurse Notified Ordering Provid er: CODIE LEON Report Released Date/Time: May 11, 2022 06:42 AM Reporting Lab: [facility] [address] [facility] [address] Performing Lab: [facility] [address] [facility] [address] FINGERSTICK GLUCOSE 345 H 70-100 May 11, 2022 02:24 [facility] FINGERSTICK GLUCOSE Speci men Type: BLOOD AM Comment: Mark casillas Ordering Provid er: CODIE LEON Report Released Date/Time: May 11, 2022 02:44 AM Reporting Lab: [facility] [address] [facility] [address] Performing Lab: [facility] [address] [facility] [address] FINGERSTICK GLUCOSE 375 H 70-100 May 10, 2022 08:38 [facility] FINGERSTICK GLUCOSE Speci men Type: BLOOD PM Comment: Mark casillas Ordering Provid er: CODIE LEON Report Released Date/Time: May 11, 2022 12:31 AM Reporting Lab: [facility] [address] [facility] [address] Performing Lab: [facility] [address] [facility] [address] FINGERSTICK GLUCOSE 346 H 70-100 May 10, 2022 05:05 [facility] FINGERSTICK GLUCOSE Speci men Type: BLOOD PM Comment: Mark casillas Nurse Notified Ordering Provid er: CODIE LEON Report Released Date/Time: May 10, 2022 11:50 PM Reporting Lab: [facility] [address] [facility] [address] Performing Lab: [facility] [address] [facility] [address] FINGERSTICK GLUCOSE 245 H 70-100 May 10, 2022 02:00 [facility] VANCOMYCIN (TROUGH) Speci men Type: PLASMA PM No comment enter ed. Ordering Provid er: CODIE LEON Report Released Date/Time: May 11, 2022 01:34 AM Reporting Lab: [facility] [address] [facility] [address] Performing Lab: [facility] [address] [facility] [address] VANCOMYCIN (TROUGH) 31.8 H 10.0-15.0 May 10, 2022 [facility] BASIC METABOLIC Specimen Typ e: PLASMA 02:00 PM PANEL+MG No comment enter ed. Ordering Provid er: CODIE LEON Report Released Date/Time: May 11, 2022 01:34 AM Reporting Lab: [facility] [address] Performing Lab: [facility] [address] CREATININE 1.1 .7-1.2 UREA NITROGEN 22 8-26 GLUCOSE 279 H 70-100 SODIUM 150 H 136-145 POTASSIUM 3.2 L 3.5-5.1 CHLORIDE 116 H 98-107 CO2 23 22-29 CALCIUM 8.5 8.4-10.2 MAGNESIUM 2.0 1.6-2.6 ANION GAP 11 5-15 CREAT EGFR(CKD-EPI) 65 >60 May 10, 2022 01:20 PM [facility] CBC & DIFF Specim en Type: BLOOD Comment: Shellya nola Differential Performed Ordering Provid er: MD ESTEBAN Report Released Date/Time: May 10, 2022 08:52 PM Reporting Lab: [facility] [address] Performing Lab: [facility] [address] WBC 16.24 H 4.0-11.0 RBC 3.76 L [...] 0.28 H 0-0.1 May 10, 2022 11:07 [facility] FINGERSTICK GLUCOSE Speci men Type: BLOOD AM Comment: Mark casillas Nurse Notified Ordering Provid er: CODIE LEON Report Released Date/Time: May 11, 2022 12:31 AM Reporting Lab: [facility] [address] [facility] [address] Performing Lab: [facility] [address] [facility] [address] FINGERSTICK GLUCOSE 253 H 70-100 May 10, 2022 06:16 [facility] FINGERSTICK GLUCOSE Speci men Type: BLOOD AM Comment: Mark casillas Nurse Notified Ordering Provid er: CODIE LEON Report Released Date/Time: May 10, 2022 11:50 PM Reporting Lab: [facility] [address] [facility] [address] Performing Lab: [facility] [address] [facility] [address] FINGERSTICK GLUCOSE 271 H 70-100 May 09, 2022 09:07 [facility] FINGERSTICK GLUCOSE Speci men Type: BLOOD PM Comment: Mark casillas Ordering Provid er: CODIE LEON Report Released Date/Time: May 10, 2022 11:50 PM Reporting Lab: [facility] [address] [facility] [address] Performing Lab: [facility] [address] [facility] [address] FINGERSTICK GLUCOSE 209 H 70-100 May 09, 2022 05:33 [facility] FINGERSTICK GLUCOSE Speci men Type: BLOOD PM Comment: Mark casillas Nurse Notified Ordering Provid er: CODIE LEON Report Released Date/Time: May 09, 2022 05:53 PM Reporting Lab: [facility] [address] [facility] [address] Performing Lab: [facility] [address] [facility] [address] FINGERSTICK GLUCOSE 251 H 70-100 May 09, 2022 02:09 [facility] VANCOMYCIN (PEAK) Specime n Type: SERUM PM No comment enter ed. Ordering Provid er: AMARIS DE JESUS Report Released Date/Time: May 09, 2022 09:33 AM Reporting Lab: [facility] [address] [facility] [address] Performing Lab: [facility] [address] [facility] [address] VANCOMYCIN (PEAK) 24.2 20.0-40.0 May 09, 2022 11:19 [facility] FINGERSTICK GLUCOSE Speci men Type: BLOOD AM Comment: Mark casillas Nurse Notified Ordering Provid er: CODIE LEON Report Released Date/Time: May 09, 2022 11:38 AM Reporting Lab: [facility] [address] [facility] [address] Performing Lab: [facility] [address] [facility] [address] FINGERSTICK GLUCOSE 240 H 70-100 May 09, 2022 08:13 [facility] VANCOMYCIN (TROUGH) Speci men Type: SERUM AM No comment enter ed. Ordering Provid er: AMARIS DE JESUS Report Released Date/Time: May 08, 2022 11:14 AM Reporting Lab: [facility] [address] [facility] [address] Performing Lab: [facility] [address] [facility] [address] VANCOMYCIN (TROUGH) 16.1 H 10.0-15.0 May 09, 2022 05:33 AM [facility] CBC & DIFF Specim en Type: BLOOD Comment: Automa nola Differential Performed Ordering Provid er: CODIE LEON Report Released Date/Time: May 08, 2022 05:27 PM Reporting Lab: [facility] [address] [facility] [address] Performing Lab: [facility] [address] [facility] [address] WBC 14.92 H 4.0-11.0 RBC 3.41 L [...] GRAN 0.16 H 0-0.1 May 09, 2022 [facility] COMPREHENSIVE METABOLIC Spec imen Type: PLASMA 05:32 AM PANEL+MG No comment enter ed. Ordering Provid er: CODIE LEON Report Released Date/Time: May 08, 2022 05:27 PM Reporting Lab: [facility] [address] [facility] [address] Performing Lab: [facility] [address] [facility] [address] CREATININE 1.2 0.7-1.2 UREA NITROGEN 25 8-26 [...] 59 L >60 May 09, 2022 05:16 [facility] FINGERSTICK GLUCOSE Speci men Type: BLOOD AM Comment: Mark casillas Nurse Notified Ordering Provid er: CODIE LEON Report Released Date/Time: May 09, 2022 07:27 AM Reporting Lab: [facility] [address] [facility]forming Lab[facility] [address] FINGERSTICK GLUCOSE 295 H 70-100 May 08, 2022 09:32 PM [facility] EXTRA MINT TUBE Specim en Type: PLASMA No comment enter ed. Ordering Provid er: MD ESTEBAN Report Released Date/Time: May 08, 2022 09:32 PM Reporting Lab: [facility] [address] [facility] [address] Performing Lab: [facility] [address] [facility] [address] EXTRA MINT TUBE RECEIVED May 08, 2022 09:32 PM [facility] EXTRA PURPLE TUBE Spec imen Type: BLOOD No comment enter ed. Ordering Provid er: MD ESTEBAN Report Released Date/Time: May 08, 2022 09:32 PM Reporting Lab: [facility] [address] [facility] [address] Performing Lab: [facility] [address] [facility] [address] EXTRA PURPLE TUBE RECEIVED May 08, 2022 09:32 [facility] EXTRA GOLD GEL TUBE Speci men Type: SERUM PM No comment enter ed. Ordering Provid er: MD ESTEBAN Report Released Date/Time: May 08, 2022 09:32 PM Reporting Lab: [facility] [address] [facility] [address] Performing Lab: [facility] [address] [facility] [address] EXTRA GOLD GEL TUBE RECEIVED May 08, 2022 09:32 PM [facility] EXTRA BLUE TUBE Specim en Type: PLASMA No comment enter ed. Ordering Provid er: MD ESTEBAN Report Released Date/Time: May 08, 2022 09:32 PM Reporting Lab: [facility] [address] [facility] [address] Performing Lab: [facility] [address] [facility] [address] EXTRA BLUE TUBE RECEIVED May 08, 2022 09:32 PM [facility] EXTRA BRASWELL TUBE Specim en Type: PLASMA No comment enter ed. Ordering Provid er: MD ESTEBAN Report Released Date/Time: May 08, 2022 09:37 PM Reporting Lab: [facility] [address] [facility] [address] Performing Lab: [facility] [address] [facility] [address] EXTRA BRASWELL TUBE RECEIVED May 08, 2022 09:32 PM [facility] LACTIC ACID Specim en Type: PLASMA No comment enter ed. Ordering Provid er: OG DIAL Report Released Date/Time: May 08, 2022 09:49 PM Reporting Lab: [facility] [address] [facility] [address] Performing Lab: [facility] [address] [facility] [address] LACTIC ACID 2.5 H 0.5-2.2 May 08, 2022 09:32 PM [facility] BNP Specim en Type: PLASMA No comment enter ed. Ordering Provid er: OG DIAL Report Released Date/Time: May 08, 2022 09:50 PM Reporting Lab: [facility] [address] [facility] [address] Performing Lab: [facility] [address] [facility] [address] BNP 897 H <99 May 08, 2022 09:32 PM [facility] BLOOD GASES Specim en Type: VENOUS BLOOD Comment: O2 THE RAPY = 3L PM Ordering Provid er: OG DIAL Report Released Date/Time: May 08, 2022 09:50 PM Reporting Lab: [facility] [address] Performing Lab: [facility] [address] PH 7.36 7.33-7.43 PCO2 47 41-51 BICARBONATE 24.4 21.0-30.0 PO2 31 L 35-40 OXYGEN SATURATION 54.7 L 70.0-75.0 PH(TEMP CORRECTED) 7.37 7.33-7.43 PCO2(TEMP CORRECTED) 46 41-51 PO2(TEMP CORRECTED) 31 L 35-40 PATIENT TEMPERATURE 36.7 May 08, 2022 09:32 PM [facility] CBC Specim en Type: BLOOD No comment enter ed. Ordering Provid er: OG DIAL Report Released Date/Time: May 08, 2022 09:50 PM Reporting Lab: [facility] [address] Performing Lab: [facility] [address] WBC 18.54 H 4.0-11.0 RBC 3.68 L 4.6-6.2 HGB 11.5 L 13.5-17.9 HCT 35.1 L 41-54 MCV 95.4 80-100 MCH 31.3 27-33 MCHC 32.8 32.0-37.5 PLT 221 150-400 MPV 11.1 H 7.4-10.4 RDW 14.9 H 11.5-14.5 May 08, 2022 [facility] COMPREHENSIVE METABOLIC Spec imen Type: PLASMA 09:32 PM PANEL+MG No comment enter ed. Ordering Provid er: OG DIAL Report Released Date/Time: May 08, 2022 09:50 PM Reporting Lab: [facility] [address] Performing Lab: [facility] [address] CREATININE 1.3 H 0.7-1.2 UREA NITROGEN 26 [...] 54 L >60 May 08, 2022 08:27 [facility] FINGERSTICK GLUCOSE Speci men Type: BLOOD PM Comment: Mark casillas Nurse Notified Ordering Provid er: CODIE LEON Report Released Date/Time: May 08, 2022 08:55 PM Reporting Lab: [facility] [address] [facility] [address] Performing Lab: [facility] [address] [facility] [address] FINGERSTICK GLUCOSE 272 H 70-100 May 08, 2022 06:56 [facility] FINGERSTICK GLUCOSE Speci men Type: BLOOD PM Comment: Mark casillas Ordering Provid er: CODIE LEON Report Released Date/Time: May 08, 2022 07:08 PM Reporting Lab: [facility] [address] [facility] [address] Performing Lab: [facility] [address] [facility] [address] FINGERSTICK GLUCOSE 262 H 70-100 May 08, 2022 04:50 [facility] FINGERSTICK GLUCOSE Speci men Type: BLOOD PM Comment: Nurse Notified Ordering Provid er: CODIE LEON Report Released Date/Time: May 08, 2022 05:14 PM Reporting Lab: [facility] [address] [facility] [address] Performing Lab: [facility] [address] [facility] [address] FINGERSTICK GLUCOSE 330 H 70-100 May 08, 2022 11:21 [facility] FINGERSTICK GLUCOSE Speci men Type: BLOOD AM Comment: Mark casillas Nurse Notified Ordering Provid er: CODIE LEON Report Released Date/Time: May 08, 2022 11:51 AM Reporting Lab: [facility] [address] [facility] [address] Performing Lab: [facility] [address] [facility] [address] FINGERSTICK GLUCOSE 231 H 70-100 May 08, 2022 07:25 AM [facility] CBC & DIFF Specim en Type: BLOOD Comment: Automa nola Differential Performed Ordering Provid er: BETO AYALA Report Released Date/Time: May 07, 2022 12:28 PM Reporting Lab: [facility] [address] Performing Lab: [facility] [address] [facility] [address] WBC 16.29 H 4.0-11.0 RBC 3.38 L [...] GRAN 0.26 H 0-0.1 May 08, 2022 [facility] PROTHROMBIN TIME/INR Specime n Type: PLASMA 07:25 AM No comment enter ed. Ordering Provid er: BETO AYALA Report Released Date/Time: May 07, 2022 12:28 PM Reporting Lab: [facility] [address] [facility] [address] Performing Lab: [facility] [address] .INR 1.2 H 0.8-1.1 .PT 14.2 H 9.4-12.5 May 08, 2022 [facility] COMPREHENSIVE METABOLIC Spec imen Type: PLASMA 07:25 AM PANEL+MG No comment enter ed. Ordering Provid er: BETO AYALA Report Released Date/Time: May 07, 2022 12:28 PM Reporting Lab: [facility] [address] [facility] [address] Performing Lab: [facility] [address] CREATININE 1.1 0.7-1.2 UREA NITROGEN 27 H [...] EGFR(CKD-EPI) 65 >60 May 08, 2022 06:53 [facility] FINGERSTICK GLUCOSE Speci men Type: BLOOD AM Comment: Mark casillas Ordering Provid er: CODIE LEON Report Released Date/Time: May 08, 2022 07:18 AM Reporting Lab: [facility] [address] [facility] [address] Performing Lab: [facility] [address] [facility] [address] FINGERSTICK GLUCOSE 276 H 70-100 May 07, 2022 08:36 [facility] FINGERSTICK GLUCOSE Speci men Type: BLOOD PM Comment: Nurse Notified Ordering Provid er: CODIE LEON Report Released Date/Time: May 08, 2022 12:29 AM Reporting Lab: [facility] [address] [facility] [address] Performing Lab: [facility] [address] [facility] [address] FINGERSTICK GLUCOSE 282 H 70-100 May 07, 2022 07:04 PM [facility] LACTIC ACID Specim en Type: PLASMA No comment enter ed. Ordering Provid er: BETO AYALA Report Released Date/Time: May 07, 2022 06:28 PM Reporting Lab: [facility] [address] [facility] [address] Performing Lab: [facility] [address] [facility] [address] LACTIC ACID 2.0 0.5-2.2 May 07, 2022 04:46 [facility] FINGERSTICK GLUCOSE Speci men Type: BLOOD PM Comment: Nurse Notified Ordering Provid er: BETO AYALA Report Released Date/Time: May 07, 2022 05:00 PM Reporting Lab: [facility] [address] [facility] [address] Performing Lab: [facility] [address] [address] FINGERSTICK GLUCOSE 274 H 70-100 May 07, 2022 12:47 [facility] FINGERSTICK GLUCOSE Speci men Type: BLOOD PM Comment: Mark casillas Nurse Notified Ordering Provid er: BETO AYALA Report Released Date/Time: May 07, 2022 05:32 PM Reporting Lab: [facility] [address] [facility] [address] Performing Lab: [facility] [address] [facility] [address] FINGERSTICK GLUCOSE 309 H 70-100 May 07, 2022 06:35 [facility] FINGERSTICK GLUCOSE Speci men Type: BLOOD AM Comment: Mark casillas Nurse Notified Ordering Provid er: GAYLA DOMINGUEZ Report Released Date/Time: May 07, 2022 06:46 AM Reporting Lab: [facility] [address] [facility] [address] Performing Lab: [facility] [address] [facility] [address] FINGERSTICK GLUCOSE 352 H 70-100 May 07, 2022 06:15 AM [facility] ALBUMIN Specim en Type: PLASMA No comment enter ed. Ordering Provid er: GAYLA DOMINGUEZ Report Released Date/Time: May 06, 2022 06:33 PM Reporting Lab: [facility] [address] [facility] [address] Performing Lab: [facility] [address] [facility] [address] ALBUMIN 3.0 L 3.5-5.2 May 07, 2022 [facility] COMPREHENSIVE METABOLIC Spec imen Type: PLASMA 06:15 AM PANEL+MG No comment enter ed. Ordering Provid er: GAYLA DOMINGUEZ Report Released Date/Time: May 06, 2022 09:11 PM Reporting Lab: [facility] [address] [facility] [address] Performing Lab: [facility] [address] [facility] [address] CREATININE 1.2 0.7-1.2 UREA NITROGEN 25 8-26 [...] L >60 May 07, 2022 06:15 AM [facility] CBC & DIFF Specim en Type: BLOOD Comment: Manual Differential Performed Ordering Provid er: GAYLA DOMINGUEZ Report Released Date/Time: May 06, 2022 09:11 PM Reporting Lab: [facility] [address] [facility] [address] Performing Lab: [facility] [address] [facility] [address] WBC 20.25 H 4.0-11.0 RBC 3.54 L [...] NORMOCYTIC, NORMOCHROMIC May 07, 2022 12:19 AM [facility] LACTIC ACID Specim en Type: PLASMA No comment enter ed. Ordering Provid er: GAYLA DOMINGUEZ Report Released Date/Time: May 06, 2022 07:13 PM Reporting Lab: [facility] [address] [facility] [address] Performing Lab: [facility] [address] [facility] [address] LACTIC ACID 2.7 H 0.5-2.2 May 06, 2022 10:45 [facility] FINGERSTICK GLUCOSE Speci men Type: BLOOD PM Comment: Save R sonja Nurse Notified Ordering Provid er: GAYLA DOMINGUEZ Report Released Date/Time: May 07, 2022 12:08 AM Reporting Lab: [facility] [address] [facility] [address] Performing Lab: [facility] [address] [facility] [address] FINGERSTICK GLUCOSE 320 H 70-100 May 06, 2022 06:53 [facility] MRSA SURVL NARES Specimen Type: NARES PM DNA No comment enter ed. Ordering Provid er: GAYLA DOMINGUEZ Report Released Date/Time: May 06, 2022 06:33 PM Reporting Lab: [facility] [address] [facility] [address] Performing Lab: [facility] [address] [facility] [address] MRSA SURVL NARES DNA POSITIVE HH Negative May 06, 2022 06:51 PM [facility] LACTIC ACID Specim en Type: PLASMA No comment enter ed. Ordering Provid er: GAYLA DOMINGUEZ Report Released Date/Time: May 06, 2022 06:04 PM Reporting Lab: [facility] [address] [facility] [address] Performing Lab: [facility] [address] [facility] [address] LACTIC ACID 3.1 H 0.5-2.2 May 06, 2022 06:51 [facility] CARDIAC TROPONIN I Specim en Type: PLASMA PM No comment enter ed. Ordering Provid er: GAYLA DOMINGUEZ Report Released Date/Time: May 06, 2022 06:05 PM Reporting Lab: [facility] [address] [facility] [address] Performing Lab: [facility] [address] [facility] [address] CARDIAC TROPONIN I <0.028 <0.028 May 06, 2022 06:51 [facility] EXTRA GOLD GEL TUBE Speci men Type: SERUM PM No comment enter ed. Ordering Provid er: GAYLA DOMINGUEZ Report Released Date/Time: May 06, 2022 06:52 PM Reporting Lab: [facility] [address] [facility] [address] Performing Lab: [facility] [address] [facility] [address] EXTRA GOLD GEL TUBE RECEIVED May 06, 2022 06:51 [facility] C-REACTIVE PROTEIN Specim en Type: PLASMA PM No comment enter ed. Ordering Provid er: GAYLA DOMINGUEZ Report Released Date/Time: May 06, 2022 09:29 PM Reporting Lab: [facility] [address] [facility] [address] Performing Lab: [facility] [address] C-REACTIVE PROTEIN 392.40 H <5.00 May 06, 2022 10:51 AM [facility] URINALYSIS Specim en Type: URINE No comment enter ed. Ordering Provid er: MODESTA VILLANUEVA Report Released Date/Time: May 06, 2022 10:11 AM Reporting Lab: [facility] [address] Performing Lab: [facility] [address] URINE COLOR YELLOW SPECIFIC GRAVITY 1.020 1.003-1.035 [...] ESTERASE 500 NEGATIVE May 06, 2022 10:24 [facility] COVID-19 DIAGNOSTIC Speci men Type: NASOPHARYNGEAL AM PANEL (CEPHEID) Comment: Cephei rui GeneXpert (618) Ordering Provid er: MODESTA VILLANUEVA Report Released Date/Time: May 06, 2022 10:11 AM Reporting Lab: [facility] [address] Performing Lab: [facility] [address] COVID-19 (CEPHEID) Not Detected Not Dete cted May 06, 2022 10:20 AM [facility] POC ABG/LACTATE Specim en Type: VENOUS BLOOD No comment enter ed. Ordering Provid er: MODESTA VILLANUEVA Report Released Date/Time: May 06, 2022 10:22 AM Reporting Lab: [facility] [address] Performing Lab: [facility] [address] POC PH 7.410 7.31-7.41 POC PCO2 28.9 L 35.00-45.00 POC PO2 82 H 35.0-40.0 POC TCO2 19 L 24.0-29.0 POC HCO3 18.3 L 23.0-28.0 POC BE ECT -6 L -2 POC SO2 96 H 70-75 POC LACTATE 3.62 0.90-1.70 May 06, 2022 10:00 AM [facility] PHOSPHORUS Specim en Type: PLASMA No comment enter ed. Ordering Provid er: MODESTA VILLANUEVA Report Released Date/Time: May 06, 2022 10:11 AM Reporting Lab: [facility] [address] [facility] [address] Performing Lab: [facility] [address] [facility] [address] PHOSPHORUS 2.5 2.3-4.7 May 06, 2022 10:00 [facility] PROTHROMBIN TIME/INR Spec imen Type: PLASMA AM No comment enter ed. Ordering Provid er: MODESTA VILLANUEVA Report Released Date/Time: May 06, 2022 10:11 AM Reporting Lab: [facility] [address] [facility] [address] Performing Lab: [facility] [address] [facility] [address] .INR 2.5 H 0.8-1.1 .PT 29.2 H 9.4-12.5 May 06, 2022 10:00 [facility] ACT PART THROMBO TIME Spe cimen Type: PLASMA AM No comment enter ed. Ordering Provid er: MODESTA VILLANUEVA Report Released Date/Time: May 06, 2022 10:11 AM Reporting Lab: [facility] [address] [facility] [address] Performing Lab: [facility] [address] [facility] [address] APTT 37.8 H 25.1-36.5 May 06, 2022 10:00 [facility] CARDIAC TROPONIN I Specim en Type: PLASMA AM Comment: Critic al Value Reported To: BROOKS CTOE 05-06-2022 @1053 BY MBB. Critical value report confirmed. Ordering Provid er: MODESTA VILLANUEVA Report Released Date/Time: May 06, 2022 10:11 AM Reporting Lab: [facility] [address] [facility] [address] Performing Lab: [facility] [address] [facility] [address] CARDIAC TROPONIN I 0.035 HH <0.028 May 06, 2022 10:00 AM [facility] PROCALCITONIN Specim en Type: PLASMA No comment enter ed. Ordering Provid er: MODESTA VILLANUEVA Report Released Date/Time: May 06, 2022 10:11 AM Reporting Lab: [facility] [address] [facility] [address] Performing Lab: [facility] [address] [facility] [address] PROCALCITONIN 22.29 H <0.09 May 06, 2022 10:00 AM [facility] LIPASE Specim en Type: PLASMA No comment enter ed. Ordering Provid er: MODESTA VILLANUEVA Report Released Date/Time: May 06, 2022 10:11 AM Reporting Lab: [facility] [address] [facility] [address] Performing Lab: [facility] [address] [facility] [address] LIPASE <4 <60 May 06, 2022 10:00 AM [facility] CBC & DIFF Specim en Type: BLOOD Comment: Manual Differential Performed Ordering Provid er: MODESTA VILLANUEVA Report Released Date/Time: May 06, 2022 10:11 AM Reporting Lab: [facility] [address] [facility] [address] Performing Lab: [facility] [address] [facility] [address] WBC 18.82 H 4.0-11.0 RBC 3.70 L [...] .RBC MORPHOLOGY PRESENT May 06, 2022 10:00 [facility] EXTRA GOLD GEL TUBE Speci men Type: SERUM AM No comment enter ed. Ordering Provid er: LINNEA RAND Report Released Date/Time: May 06, 2022 10:25 AM Reporting Lab: [facility] [address] [facility] [address] Performing Lab: [facility] [address] [facility] [address] EXTRA GOLD GEL TUBE RECEIVED May 06, 2022 [facility] COMPREHENSIVE METABOLIC Spec imen Type: PLASMA 10:00 AM PANEL+MG Comment: Manual Differential Performed Ordering Provid er: MODESTA VILLANUEVA Report Released Date/Time: May 06, 2022 10:11 AM Reporting Lab: [facility] [address] [facility] [address] [facility] [address] CREATININE 1.3 H 0.7-1.2 UREA NITROGEN 25 [...] 54 L >60 May 06, 2022 09:46 [facility] FINGERSTICK GLUCOSE Speci men Type: BLOOD AM Comment: Mark casillas Nurse Notified Ordering Provid er: MODESTA VILLANUEVA Report Released Date/Time: May 06, 2022 09:59 AM Reporting Lab: [facility] [address] [facility] [address] Performing Lab: [facility] [address] [facility] [address] FINGERSTICK GLUCOSE 369 H 70-100 Apr 30, 2022 09:17 AM [facility] CBC Specim en Type: BLOOD No comment enter ed. Ordering Provid er: BILL ROONEY Report Released Date/Time: Apr 30, 2022 08:21 AM Reporting Lab: [facility] [address] [facility] [address] Performing Lab: [facility] [address] [facility] [address] WBC 10.40 4.0-11.0 RBC 3.96 L 4.6-6.2 HGB 12.3 L 13.5-17.9 HCT 37.8 L 41-54 MCV 95.5 80-100 MCH 31.1 27-33 MCHC 32.5 32.0-37.5 PLT 286 150-400 MPV 10.1 7.4-10.4 RDW 14.6 H 11.5-14.5 Apr 30, 2022 [facility] BASIC METABOLIC Specimen Typ e: PLASMA 09:17 AM PANEL+MG No comment enter ed. Ordering Provid er: BILL ROONEY Report Released Date/Time: Apr 30, 2022 08:21 AM Reporting Lab: [facility] [address] Performing Lab: [facility] [address] CREATININE 1.2 0.7-1.2 UREA NITROGEN 26 8-26 [...] % 99 [place] 2021 10:00 /min mm[Hg] [facility] Sep 18, 100 F [place] 2021 07:49 [facility] PM [facility] May 06, 101.2 F 84 117/56 22 /min 10 [place] 2021 11:22 /min mm[Hg] [facility] AM [facility] May 06, 257.4 34 [place] 2021 10:41 lb [facility] Social History: Smoking Status (Most [...] 09:30 AM VA-TOBACCO NEVER USED [place] [facility] Tobacco Use History This section includes a history of the smoking, or tobacco- related health factors, that were collected on or before the date of the Encounter. The data comes from the [place] facility where the Encounter took place. Date/Time Smoking Status/Tobacco Use Comment Xavi chanel Mar 22, 2021 07:45 AM [place]-TOBACCO NEVER USED [place] [facility] Oct 02, 2019 10:02 AM VA-TOBACCO NEVER USED [place] [facility] May 21, 2018 09:05 AM [place]-TOBACCO NEVER USED [place] [facility] December 25, 2017 06:14 PM INPT NO TOBACCO USE IN LAST 30 DAYS [facility] Oct 01, 2017 07:34 AM LIFETIME NON-TOBACCO USER [facility] Sep 28, 2016 08:44 AM LIFETIME NON-TOBACCO USER [facility] Oct 14, 2015 07:52 AM LIFETIME NON-TOBACCO USER [facility] Oct 11, 2014 07:59 AM LIFETIME NON-TOBACCO USER [facility] January 15, 2007 07:55 AM LIFETIME NON-TOBACCO USER [facility] Advance Directives: All historical and current [...] Source Apr 18, 2018 ADVANCE DIRECTIVE JOVONLARISSA [facility] Apr 18, 2018 ADVANCE DIRECTIVE DISCUSSION LARISSA SIGALA [facility] December 23, 2017 CLINICAL WARNING FARHAT SCHMID [facility] May 11, 2003 ADVANCE DIRECTIVE BERT CASILLAS [facility] Radiology Reports: +/- 30 days of [...] the Encounter. The data comes from all [place] treatment facilities. Date/Time Radiology Report Provider Source May 11, 2022 09:46 CHEST 1 VIEW: SONJA OVALLES [facility] AM JOSE EDDY [id number] -1935 M Exm Date: MAY 11, 2022@09:46 Req Phys: CODIE LEON Loc: OP Unknown /05-13-2022@05:05 Img Loc: MAIN X-RAY Service: PRIMARY CARE - MED OFFICE (Case [id number] COMPLETE) CHEST 1 VIEW (RAD Detailed) CPT:58265 Proc Modifiers : PORTABLE EXAM Reason for [...] 11, 2022 Date Verified: MAY 11, 2022 Commercial Specialist E-Sig:/ES/SONJA OVALLES MD Report: CHEST 1 VIEW [...] Primary Interpreting Staff: SONJA OVALLES MD, RADIOLOGIST (Commercial Specialist) /CDC May 10, 2022 03:49 CT HEAD (P): RADIOLOGY,OUTSIDE [facility] PM JOSE EDDY [id number] -1935 M SERVICE Exm Date: MAY 10, 2022@15:49 Req Phys: CODIE LEON Loc: OP Unknown /05-13-2022@05:05 Img Loc: CT IMAGING Service: PRIMARY CARE - MED OFFICE (Case [id number] COMPLETE) CT HEAD/BRAIN W/O CONTRAST (CT Detailed) CPT:87274 Reason for Study: CHANGE IN MENTAL STATUS Clinical History: CHANGE IN MENTAL STATUS. ORDER ADMINISTRATIVELY ENTERED FOLLOWING SYSTEM OUTAGE. Report Status: Verified Date Reported: MAY 10, 2022 Date Verified: MAY 10, 2022 Commercial Specialist E-Sig: Report: CT HEAD/BRAIN W/O CONTRAST [PRINTSET] HISTORY: Change in mental status. COMPARISON: CT from 05/07/2022. TECHNIQUE: Contiguous axial CT images from the level of the skull base through the skull apex, with coronal and s agittal reformats, performed at the local [place] facility. 321 images were received by the [place] National Teleradiology Program (NTP) for interpretation. RADIATION [...] study. READING PHYSICIAN: Akash Mccoy M.D. -[phone] 05/10/2022 17:35 PDT [facility] National Teleradiology Program [phone] (For Medical Practitioner Use Only ) Attention Patients / Veterans: If you have ques tions or concerns about these test results, please contact your [facility] provider or primary care team. Primary Interpreting Staff: RADIOLOGY,OUTSIDE SERVICE, Staff Physician / May 08, 2022 07:45 CT T-SPINE (P): RADIOLOGY,OUTSIDE [facility] JOSE EDDY [id number] 1935 M SERVICE Exm Date: MAY 08, 2022@19:45 Req Phys: COIDE LEON Chantal Loc: OP Unknown /05-13-2022@05:05 Img Loc: CT IMAGING Service: PRIMARY CARE - MED OFFICE (Case [id number] COMPLETE) CT SPINE THORACIC W/O CONTR AST (CT Detailed) CPT:69611 Reason for Study: mrsa bacteremia, spinal surge ry - r/o abscess or discitis Clinical History: IS NOT under investigation for COVID-19 or is COVID-19 negative Defer to radiologist for final CT protocol. Responsible provider name and phone number to n otify for critical findings if other than user placing the order a nd pager listed below: User placing orders pager: [phone] LAST 3: Collection DT Specimen Test Name [...] GFR (eGF 44 L Ref: >=60 Allergies: ([place]yles only) SIMVASTATIN (Feb 29, 2004) CEPHALEXIN (Mar 01, 2004) Report Status: Verified Date Reported: MAY 08, 2022 Date Verified: MAY 08, 2022 Commercial Specialist E-Sig: Report: CT SPINE THORACIC W/O CONTRAST [PRINTSET] HISTORY:MRSA bacteremia NUMBER OF IMAGES:1151 COMPARISON: Correlation with images from recent CT abdomen and pelvis May 06, 2022 TECHNIQUE: A non contrast CT of the thoracic sp ine was performed at the local [place]. Images were subsequently sent to [place] [...] thoracic level. READING PHYSICIAN: Jose Webb MD -[id number] [phone] 05/08/2022 19:20 PDT [facility] T[facility]ad[facility] [phone] (For Medical Practitioner Use Only ) Attention Patients / Veterans: If you have ques tions or concerns about these test results, please contact your [facility] provider or primary care team. Primary Interpreting Staff: RADIOLOGY,OUTSIDE SERVICE, Staff Physician / May 08, 2022 04:48 CHEST 1 VIEW: RADIOLOGY,OUTSIDE [facility] PM JOSE EDDY [id number] -1935 M SERVICE Exm Date: MAY 08, 2022@16:48 Req Phys: CODIE LEON Loc: OP Unknown /05-13-2022@05:05 Img Loc: MAIN X-RAY Service: PRIMARY CARE - MED OFFICE (Case [id number] COMPLETE) CHEST 1 VIEW (RAD Detailed) CPT:51498 Proc Modifiers : PORTABLE EXAM Reason for Study: dyspnea Clinical History: IS NOT under investigation for COVID-19 or is COVID-19 negative acute worsening of dyspnea Responsible provider name and phone number to notify for critical findings if other than user placing the order and pager listed below: User placing orders pager: [phone] carolyn cell [phone] LAST CREATININE 1.1 (05/08/22) Report Status: Verified Date Reported: MAY 08, 2022 Date Verified: MAY 08, 2022 Commercial Specialist E-Sig: Report: CHEST 1 VIEW HISTORY: dyspnea COMPARISON: 05/06/2022 TECHNIQUE: Frontal view(s) of the chest, submit nola to the [place] National Teleradiology Program (NTP) for interp retation. FINDINGS: Reduced lung volumes. Progressive cardiomegaly, and vascular congestion as well as diffuse interstitial prom inence with probable small effusions. Impression: Expiratory exam with findings of CHF and mild e santa READING PHYSICIAN: Nghia Menjivar M.D. -[id number] 10 05/08/2022 18:57 EDT [facility] National Teleradiology Program [phone] (For Medical Practitioner Use Only ) Attention Patients / Veterans: If you have ques tions or concerns about these test results, please contact your o rdering provider or primary care team. Primary Interpreting Staff: RADIOLOGY,OUTSIDE SERVICE, Staff Physician / May 07, 2022 10:29 CT HEAD (P): SHANI POLANCO [facility] AM JOSE EDDY [id number] -1935 M Exm Date: MAY 07, 2022@10:29 Req Phys: BETO AYALA Loc: OP Unknown/0 05-13-2022@05:05 Img Loc: CT IMAGING Service: PRIMARY CARE - MED OFFICE (Case [id number] COMPLETE) CT HEAD/BRAIN W/O CONTRAST ( CT Detailed) CPT:18001 Reason for Study: seizure noted at [facility] Clinical History: [place] IS NOT under investigation for COVID-19 or is COVID-19 negative Defer to radiologist for final CT protocol. Responsible provider name and phone number to n otify for critical findings if other than user placing the order a nd pager listed below: User placing orders pager: [phone] LAST 3: Collection DT Specimen Test Name [...] GFR (eGF 44 L Ref: >=60 Allergies: ([place]yles only) SIMVASTATIN (Feb 29, 2004) CEPHALEXIN (Mar 01, 2004) Report Status: Verified Date Reported: MAY 07, 2022 Date Verified: MAY 07, 2022 Commercial Specialist E-Sig:/ES/SHANI POLANCO MD Report: EXAM: CT HEAD/BRAIN [...] lis nola below: User placing orders pager: [phone] LAST 3: Collecti on DT Specimen Test [...] Primary Interpreting Staff: SHANI POLANCO MD, RADIOLOGIST (Commercial Specialist) /Javed May 06, 2022 11:40 CHEST 1 VIEW: RADIOLOGY,OUTSIDE [facility] JOSE EDDY [id number] -1935 M SERVICE Exm Date: MAY 06, 2022@11:40 Req Phys: MODESTA VILLANUEVA Loc: [facility] EMERGENCY DEPT WALK-IN (Re Img Loc: MAIN X-RAY Service: Unknown (Case [id number] COMPLETE) CHEST 1 VIEW (RAD Detailed) C PT:59886 Proc Modifiers : PORTABLE EXAM Reason for Study: fever, back pain Clinical History: Reason for Exam: Severe Sepsis Pathway to Evalu ate Volume Status and Source of Sepsis [place] IS under investigation (PUI) for COVID- 19 or is COVID-19+ 86 yo M with fever, back pain Responsible provi violeta name and phone number to notify for critical findings if other than user placing the order and pager listed below: User placing orders pager: [phone] LAST CREATININE 1.2 (04/30/22) Report Status: Verified Date Reported: MAY 06, 2022 Date Verified: MAY 06, 2022 Commercial Specialist E-Sig: Report: Technique: Frontal chest. No comparison Impression: Cardiac silhouette is mildly enlarged. There is mild pulmonary venous congestion. No definite pleural effusion . No pneumothorax seen. READING PHYSICIAN: Vern Donnelly M.D. -[id number] 07 05/06/2022 13:26 EDT [facility] National Teleradiology Program [phone] (For Medical Practitioner Use Only ) Attention Patients / Veterans: If you have ques tions or concerns about these test results, please contact your o rdering provider or primary care team. Primary Interpreting Staff: RADIOLOGY,OUTSIDE SERVICE, Staff Physician / May 06, 2022 10:36 CT (AP) ABDOMEN/PELVIS (P): RADIOLOGY,OUTSIDE [facility] JOSE EDDY [id number] -1935 M SERVICE Exm Date: MAY 06, 2022@10:36 Req Phys: MODESTA VILLANUEVA Loc: [facility] EMERGENCY DEPT WALK-IN (Re Img Loc: CT IMAGING Service: Unknown (Case [id number] COMPLETE) CT (AP) ABDOMEN/PELVIS W CONT RAST(CT Detailed) CPT:72223 Reason for Study: fever, back pain Clinical [...] pager listed below: User placing orders pager: [phone] LAST 3: Collection DT Specimen Test Name [...] ESTIMATED GFR(eGF 44 L Ref: >=60 Allergies: ([place]yles only) SIMVASTATIN (Feb 29, 2004) CEPHALEXIN (Mar 01, 2004) To see allergies from all [facility] locations click Re ports tab>Remote Data>All Available Sites>Clinical Reports>Aller gies. Report Status: Verified Date Reported: MAY 06, 2022 Date Verified: MAY 06, 2022 Commercial Specialist E-Sig: Report: Exam: CT (AP) ABDOMEN/PELVIS W CONTRAST [PRINTS ET] Clinical History: fever, back pain Number of images: 918 Comparison: No priors available Technique: The study was protocoled and supervi [facility] local [facility] of the abdomen and pelvis was performed afte r the uneventful administration of iodinated contrast. Images we re received by the [place] National Teleradiology Program (NTP) for interpretation. Total [...] findings, above. READING PHYSICIAN: Eduin Donaldson M.D. -[phone] 05/06/2022 12:48 [facility] [phone] (For Medical Practitioner Use Only ) Attention Patients / Veterans: If you have ques tions or concerns about these test results, please [facility] or primary care team. Primary Interpreting Staff: RADIOLOGY,OUTSIDE SERVICE, Staff Physician / May 06, 2022 10:35 CT HEAD/BRAIN W/O CONTRAST: RADIOLOGY,OUTSIDE [facility] JOSE EDDY [id number] -1935 M SERVICE Exm Date: MAY 06, 2022@10:35 Req Phys: MODESTA VILLANUEVA Loc: [facility] EMERGENCY DEPT WALK-IN (Re Img Loc: CT IMAGING Service: Unknown (Case 64 COMPLETE) CT HEAD/BRAIN W/O CONTRAST (C T Detailed) CPT:79052 Reason for Study: falls, blood thinner, AMS, se izure Clinical History: falls, blood thinner, AMS, seizure [place] IS under investigation (PUI) for COVID- 19 or is COVID-19+ Defer to radiologist for final CT protocol. Responsible provider name and phone number to n otify for critical findings if other than user placing the order a nd pager listed below: User placing orders pager: [phone] LAST 3: Collection DT Specimen Test Name [...] ESTIMATED GFR(eGF 44 L Ref: >=60 Allergies: ([place] only) SIMVASTATIN (Feb 29, 2004) CEPHALEXIN (Mar 01, 2004) To see allergies from all [place] locations click Re ports tab>Remote Data>All Available Sites>Clinical Reports>Aller gies. Report Status: Verified Date Reported: MAY 06, 2022 Date Verified: MAY 06, 2022 Commercial Specialist E-Sig: Report: CT HEAD/BRAIN W/O CONTRAST Clinical History: falls, blood thinner, AMS, se izure Number of Images: 532 Comparison: 03/12/2022 Technique: The study was protocoled and supervi sed at the [facility] of the head without contrast. I mages were subsequently received by the [place] National Telera diology Program (NTP) for interpretation. [...] T findings. READING PHYSICIAN: Eduin Donaldson M.D. -[phone] 05/06/2022 12:30 [facility] National Teleradiology Program [phone] (For Medical Practitioner Use Only ) Attention Patients / Veterans: If you have ques tions or concerns about these test results, please contact your o rdering provider or primary care team. Primary Interpreting Staff: RADIOLOGY,OUTSIDE SERVICE, Staff Physician / May 06, 2022 10:35 CT CERVICAL SPINE W/O CONTRAST: RADIOLOGY,OUT SIDE [facility] AM JOSE EDDY [phone] -[phone] M SERVICE Exm Date: MAY 06, 2022@10:35 Req Phys: MODESTA VILLANUEVA Loc: [facility] EMERGENCY DEPT WALK-IN (Re Img Loc: CT IMAGING Service: Unknown (Case 65 COMPLETE) CT CERVICAL SPINE W/O CONTRAS T (CT Detailed) CPT:65977 Reason for Study: falls, blood thinner, AMS, se izure Clinical History: falls, blood thinner, AMS, seizure [place] IS under investigation (PUI) for COVID- 19 or is COVID-19+ Defer to radiologist for final CT protocol. Responsible provider name and phone number to n otify for critical findings if other than user placing the order a nd pager listed below: User placing orders pager: [phone] LAST 3: Collection DT Specimen Test Name [...] ESTIMATED GFR(eGF 44 L Ref: >=60 Allergies: ([place] only) SIMVASTATIN (Feb 29, 2004) CEPHALEXIN (Mar 01, 2004) To see allergies from all [place] locations click Re ports tab>Remote Data>All Available Sites>Clinical Reports>Lashon gironni. Report Status: Verified Date Reported: MAY 06, 2022 Date Verified: MAY 06, 2022 Commercial Specialist E-Sig: Report: CT CERVICAL SPINE W/O CONTRAST HISTORY:falls, blood thinner, AMS, seizure NUMBER OF IMAGES:[id number] COMPARISON: None available. TECHNIQUE: A non contrast CT of the cervical sp ine was performed at the local [place]. Images were subsequently sent to [place] [...] findings, above. READING PHYSICIAN: Eduin Donaldson M.D. -[phone] 05/06/2022 12:33 [facility] National Teleradiology Program [phone] (For Medical Practitioner Use Only ) Attention Patients / Veterans: If you have ques tions or concerns about these test results, please contact your [facility] provider or primary care team. Primary [...] the Encounter. The data comes from all [place] treatment facilities. Date/Time Pathology Report Provider Source May 09, 2022 05:30 AM LR MICROBIOLOGY REPORT: [facility] Reporting Lab: [facility] [CLIA# [id number]] [place] [address] Accession [UID]: [id number] [[id number]] Receiv ed: May 09, 2022@01:35 Collection sample: BLOOD Collection date: Apr 05:30 Provider: CODIE LEON Comment on specimen: LEFT ARM, RECEIVED 2 BLOOD CULTURE BOTTLES Test(s) ordered: CULTURE & SUSCEPTIBILITY...... 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 R TRIMETH/SULFA................. S TETRACYCLINE.................. S CLINDAMYCIN................... S RIFAMPIN...................... S VANCOMYCIN.................... S Bacteriology Remark(s): VANCOMYCIN SHAMIKA: <=0.5 ug/mL THIS REPORT IS FINAL =--=--=--=--=--=--=--=--=--=--=--=--=--= --=--=--=--=--=--=--=--=--=--=--=--=-- Performing Laboratory: Bacteriology Report Performed By: [facility] [CLIA# [id number]] [place] [address] May 08, 2022 03:23 PM LR MICROBIOLOGY REPORT: [facility] Reporting Lab: [facility] [CLIA# [id number]] [place] [address] Accession [UID]: [id number] [[id number]] Receiv ed: May 08, 2022@15:41 Collection sample: BLOOD Collection date: Apr 15:23 Provider: CODIE LEON Comment on specimen: LEFT ARM, RECEIVED 2 BLOOD CULTURE BOTTLES Test(s) ordered: CULTURE & SUSCEPTIBILITY...... completed: May 10, 2022 * BACTERIOLOGY FINAL REPORT => May 10, 2022 16:3 1 TECH CODE: [id number] CULTURE RESULTS: GROWTH SAME THAT OF ANOTHER CULTURE Comment: FOR SUSCEPTIBILITY REPORT SEE PREVIOUS POSITIVE SAME MB 22 69325 ( 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 from Anaerobic bottle ) ( Recovered from Aerobic bottle ) Bacteriology Remark(s): THIS REPORT IS FINAL =--=--=--=--=--=--=--=--=--=--=--=--=--= --=--=--=--=--=--=--=--=--=--=--=--=-- Performing Laboratory: Bacteriology Report Performed By: [facility] [CLIA# [id number]] [place] [address] May 08, 2022 03:21 PM LR MICROBIOLOGY REPORT: [facility] Reporting Lab: [facility] [CLIA# [id number]] [place] [address] Accession [UID]: [id number] [[id number]] Receiv ed: May 08, 2022@15:40 Collection sample: BLOOD Collection date: Apr 15:21 Provider: CODIE LEON Comment on specimen: RT ARM, RECEIVED 2 BLOOD CU LTURE BOTTLES Test(s) ordered: CULTURE & SUSCEPTIBILITY...... completed: May 10, 2022 * BACTERIOLOGY FINAL REPORT => May 10, 2022 16:3 1 TECH CODE: [id number] CULTURE RESULTS: GROWTH SAME THAT OF ANOTHER CULTURE Comment: FOR SUSCEPTIBILITY REPORT SEE PREVIOUS POSITIVE SAME MB 22 82125 ( 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 from Anaerobic bottle ) ( Recovered from Aerobic bottle ) Bacteriology Remark(s): THIS REPORT IS FINAL =--=--=--=--=--=--=--=--=--=--=--=--=--= --=--=--=--=--=--=--=--=--=--=--=--=-- Performing Laboratory: Bacteriology Report Performed By: [facility] [CLIA# [id number]] [place] [address] May 07, 2022 05:30 AM LR MICROBIOLOGY REPORT: [facility] Reporting Lab: [facility] [CLIA# [id number]] [place] [address] Accession [UID]: [id number] [[id number]] Receiv ed: May 07, 2022@01:35 Collection sample: [...] REPORT SEE PREVIOUS POSITIVE SAME MB 22 15301 ( 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 from Aerobic bottle ) ( Recovered from Anaerobic bottle ) Bacteriology Remark(s): THIS REPORT IS FINAL =--=--=--=--=--=--=--=--=--=--=--=--=--= --=--=--=--=--=--=--=--=--=--=--=--=-- Performing Laboratory: Bacteriology Report Performed By: [facility] [CLIA# [id number]] [place] [address] May 06, 2022 10:51 AM LR MICROBIOLOGY REPORT: [facility] Reporting Lab: [facility] [CLIA# [id number]] [place] [address] Accession [UID]: [id number] [[id number]] Receiv ed: May 06, 2022@11:32 Collection sample: [...] --=--=--=--=--=--=--=--=--=--=--=--=-- Performing Laboratory: Bacteriology Report Performed By: [facility] [CLIA# [id number]] [place] [address] May 06, 2022 10:34 AM LR MICROBIOLOGY REPORT: [facility] Reporting Lab: [facility] [CLIA# [id number]] [place] [address] Accession [UID]: [id number] [[id number]] Receiv ed: May 06, 2022@10:51 Collection sample: BLOOD Collection date: Apr 10:34 Provider: MODESTA VILLANUEVA Comment on specimen: RECEIVED 2 BLOOD CULTURE EDVIN TTLES RAC Test(s) ordered: CULTURE & SUSCEPTIBILITY...... completed: May 07, 2022 * BACTERIOLOGY FINAL REPORT => May 08, 2022 08:3 0 TECH CODE: [id number] CULTURE RESULTS: STAPHYLOCOCCUS AUREUS METHICILL IN RESISTANT [...] --=--=--=--=--=--=--=--=--=--=--=--=-- Performing Laboratory: Bacteriology Report Performed By: [facility] [CLIA# [id number]] [place] [address] May 06, 2022 10:00 AM LR MICROBIOLOGY REPORT: [facility] Reporting Lab: [facility] [CLIA# [id number]] [place] [address] Accession [UID]: [id number] [[id number]] Receiv ed: May 06, 2022@10:41 Collection sample: [...] SUSCEPTIBILITY REPORT SEE PREVIOUS POSITIVE SAME 22 11291 ( 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 from Anaerobic bottle ) ( Recovered from Aerobic bottle ) Bacteriology Remark(s): THIS REPORT IS FINAL =--=--=--=--=--=--=--=--=--=--=--=--=--= --=--=--=--=--=--=--=--=--=--=--=--=-- Performing Laboratory: Bacteriology Report Performed By: [facility] [CLIA# [id number]] [place] [address] Encounter Notes: All associated encounter notes This section contains the clinical notes associated to the Encounter. Date/Time Encounter Note(s) Provider Source May 12, 2022 10:32 [facility]: CLIENT SERVICE AND CONSULTING MANAGER-VISITATION NOTE STANDARD TITLE: PASTORAL CARE NOTE DATE OF NOTE: MAY 12, 2022@10:32 ENTRY DATE: MAY 12, 2022@10:32:41 AUTHOR: EDIN ROSS EXP COSIGNER: URGENCY: STATUS: COMPLETED Pastoral Visit. A sympathy letter was sent to e patient's family by dump worker. /es/ FATHER JESUS (DAMIEN) CODY CHIEF, CLIENT SERVICE AND CONSULTING MANAGER SERVICE Signed: 05/12/2022 10:32 May 11, 2022 12:46 NURSING INPATIENT NOTE: JEANIE CAZARES CT [facility] LOCAL TITLE: [facility] NURSING PROGRESS NOTE STANDARD TITLE: NURSING INPATIENT NOTE DATE OF NOTE: MAY 11, 2022@12:46 ENTRY DATE: MAY 11, 2022@12:46:39 AUTHOR: JEANIE CAZARES EXP COSIGNER: URGENCY: STATUS: COMPLETED Nursing Shift Note Nursing care provided from 08:00-11:30 Highlights from shift: Beginning tour, walking into pt.'s room at 08:0 5 pt. laying in bed with eyes closed, mitts to bilateral h ands on and seizure pads in place, oxymask on at 3L sats 91%, had audiable cours e lungs standing next to pt. Pt. would open eyes to voice for a few seconds and close them, was not able to follow commands. Provider called d/t pt.'s ch rubi in status compared to yesterday. Provider came bedside and saw pt. Vitals: Afebrile. Tele shows AFib, HR 120s. BPs stable at the time. RR upper 20s. Lungs course through out . Family member bedside. ID team visited with pt. and family this AM. Chest X-ray done. Per orders was going to get blood cultures and urine samples an d start dilt gtt, however before starting gtt pt.'s BPs were 90s/50s MAPs low 60s and per nursing gtt protocol to notify provider with SBPs <100 first , waited to start gtt until provider approved to still start with soft BPs. Also updated rapid on changes today. Rapid came bedside ~11:00 and helped suct ion pt. Per provders verbal order to not start gtt d/t pt.'s BPs continued t o drop quickly to 80s/50s and then 70s/50s and HR went down to 90s. Provider w as called again to come bedside pt. started to decline fast , was pale, no gag reflex with suction and breathing became labored and slow. Pt. passe d away with nurses, provider and family at bedside. See ICCA for detailed assessment, Educa tion provided on medication/cares this shift as needed Skin Interventions performed this shift: Patient turned [id number] or as appropriate while in bed. Patient's heels elevated with pressure relief b oots or pillows under calves. Patient kept clean and dry with barrier cream a pplied as ordered. Device(s) removed and skin underneath was inspe cted. Head of Bed kept below 30 degrees unless otherw ise ordered. /ronni/ Jeanie Cazares, BROOKS Registered Nurse Signed: 05/11/2022 13:20 May 11, 2022 11:48 INFECTIOUS DISEASE ATTENDING NOTE: JESSE GERBER SON N [facility] LOCAL TITLE: INFECTIOUS DISEASE INPT PROGRESS N OTE STANDARD TITLE: INFECTIOUS DISEASE ATTENDING NOT E DATE OF NOTE: MAY 11, 2022@11:48 ENTRY DATE: MAY 11, 2022@11:49:11 AUTHOR: MARIA LUISA GERBER EXP COSIGNER: JEWELS KINNEY URGENCY: STATUS: COMPLETED INFECTIOUS DISEASE INPT PROGRESS NOTE Has A DDENDA S: Patient has labored, coarse-sounding breathin g. He opens eyes to voice, but is confused. Tmax 97.7, hr 115, bp 100-120s/50-60s, rr 24, 94 % aerosol O2 @3L Exam General: In distress Cardiac: Tachycardic, normal S1/S2 Resp: Coarse crackles in bilateral lungs, use of accessory muscles for breathing, rattling breath sounds Neuro: Opens eyes to voice. Unable to follow sim ple commands. WBC 15.93 Cr 1.6 Na 150 Glucose 345 Vanc trough (05/10 at 1400): 31.8 Micro: 05/06 UA: Negative nitrites, 78 WBC, 11 RBC, 1 hy elise cast, no bacteria 05/06 BCx: MRSA 05/06 UCx: MRSA 05/07 BCx: MRSA 05/08 BCx: MRSA 05/09 BCx: MRSA Antimicrobials: Vanc 2g and ciprofloxacin 400mg x1 in the ED 04/19 8 Pip/Tazo 4.5g 05/06-05/07 Vanc 1g 05/06-05/11 Daptomycin 1000mg/d 05/11-ongoing Ceftaroline 600mg q8h 05/11-ongoing Imagin/22: Impression: 1. No acute intracranial abnormality. 2. Chronic processes as detailed in the finding s section, similar compared to the prior study. A/P # MRSA Bacteremia Patient remains afebrile, but has declining ment al function and increased work of breathing. His Cr is uptrending, now 1.6 , Na is 150, glucose 345, and WBC is 15.93. Cultures continue to grow MRSA. Va ncomycin ongoing since 05/06. CT head from 05/10 shows no acute abnormality. Chaz meyer has been unable to undergo MRI brain and spine and YAMILETH due to agita tion, although these are needed to evaluate for source of infection. Unsu re if his decline is due to Vancomycin failure or poor source control. With his worsening kidney function, do not feel Vancomycin is safe to cont inue. Recommend starting Daptomycin 1000mg 1/d and Ceftaroline 600mg q8h. Recommendations: - Recommend discontinuing Vancomycin - Recommend starting Daptomycin 1000mg 1/d and C eftaroline 600mg q8h - Check CK level - Daily BMP - BCx daily until negative for 48-72hours - MRI lumbar and thoracic spine when patient abl e to tolerate - YAMILETH when patient able to tolerate - ID will continue to follow Patient seen and discussed with attending, Dr. Wayne hinkle. Maria Luisa Gerber, MS4 /ronni/ MARIA LUISA GERBER MEDICAL STUDENT Signed: 05/11/2022 11:51 /ronni/ DAR KINNEY MD ID Staff Physician Cosigned: 05/11/2022 18:06 05/11/2022 ADDENDUM STATUS: COMPLETED Pt developed worsening respiratory failure and h ypotension this morning on IV vancomycin. Planned to adjust antimicrobials as outlined above to try to maximize antimicrobial actio n in setting of continued high-grade MRSA bacteremia and inability to obtain joe tional imaging. BARREL LATHE OPERATOR OUTSIDE called this morning and patient quickly with family at bedside. I sp irma with the son this morning and [facility]. /ronni/ DAR KINNEY MD ID Staff Physician Signed: 05/11/2022 18:12 May 11, 2022 11:37 [facility] NOTE STANDARD TITLE: DISCHARGE NOTE DATE OF NOTE: MAY 11, 2022@11:37 ENTRY DATE: MAY 11, 2022@11:37:27 AUTHOR: CODIE LEON EXP COSIGNER: URGENCY: STATUS: COMPLETED Events leading to : MRSA sepsis Exam: General: Patient non-responsive and not arousab le to sternal rub. Eyes: Pupils are fixed, dilated and not respons shyann to light. Respiratory: No spontaneous respirations for 2 minutes. Cardiovascular: No spontaneous heartbeat for 2 minutes. Cause of : MRSA bacteremia with sepsis Other Pertinent Diagnoses: afib Male Date and Time of : Apr@11:30 The family was informed of the 's , The attending physician was informed of the 's , [facility] t [employer] was notified of the veterans . Was : a} that occurred during, in association wi , or as the result of diagnostic, therapeutic, or anesthesia procedures? No b) in which a fracture of a major bone (fe mur, humerus, tibia, etc.) has occurred within the past six months? No c) occurring in an emergency department,op erating room, or fish farm laborer? No d) of a person arriving at an emergency de partment on arrival? No e) Did a recent fall result in an injury, trauma , or fracture that could be associated with ? No f) Unexpected of persons not disabled by r ecognizable disease? No g) Unexpected of perso n not withstanding a history of underlying disease? No h) due to neglect? No i) occurring outside o f a licensed health care facility? (On [place] property) No j) under suspicious circumstances? No k) Unnatural including violent (homicidal, suicidal, or accidental? No l) associated with mccall, chemical, electr ical, or a radiation injury? No m) of person in custody of law enforcement officers? ([place] Police) No Carbon Brusher Assembler (ME) notified: No Carbon Brusher Assembler (ME) accepted jurisdiction: No Carbon Brusher Assembler ordered autopsy? No Autopsy MUST be offered per [facility] policy. Autopsy was granted by family and/or significant other: Tesha /ronni/ CODIE LEON MD Signed: 05/11/2022 11:39 May 11, 2022 11:30 DISCHARGE SUMMARY: CODIE LEON [facility] TITLE: Discharge Summary STANDARD TITLE: DISCHARGE SUMMARY DICT DATE: MAY 11, 2022@14:15 ENTRY DATE: APR 202021@14:15:19 DICTATED BY: CODIE LEON ATTENDING: CODIE TORRES URGENCY: routine STATUS: COMPLETED MEDICINE DISCHARGE SUMMARY Admission Date: 05/06/22 Discharge Date: 05/11/22 TIME OF 11:30am DISCHARGE DIAGNOSES 1. Severe sepsis 2/2 MRSA bacteremia 2. Metabolic encephalopathy in the context of s epsis 3. LATHA on CKD3 4. Afib with RVR 5. Acute hypoxic respiratory failure 6. Hypernatremia 7. IDDM 8. Possible seizure 9. Subacute thoracic vertebral fracture 2/2 fal l PROCEDURES/TESTS PERFORMED 1. CT head, TTE, CT thoracic spine, EEG CONSULTATIONS OBTAINED 1. Infectious disease 2. Neurology - nephrology and cardiology were consulted but did not see patient prior to his passing HISTORY AND HOSPITAL COURSE This 86 y/o admitted 05/06 with sepsis. MRSA grew in multiple bottles within 1 hour initially. He has continued to grow MRSA in repeat cultures. Very encephalopathic since admiss ion, possibly some worsening today. Head CT repeated yesterday was non acute. Tod ay pt appears quite ill. Upper airway breath sounds and increased WOB. More encephalopathic. He did receive dilaudid and haldol through the night. Also rece ived 1L of fluids over 10 hrs o/n. Spoke with family at bedside. wade is very worried. Confi bibi again DNR/DNI and no extraordinary measures wanted by family. We did talk through t hat pt's condition is still potentially quite treatable with abx and we should give some more time. ID and neuro seen at bedside this m orning and case discussed. We are getting nephro and cards on board and adjusting abx. All or ders and med changes discussed with RN at bedside throughout the mo rning and, again, family present throughout so they have a good understanding of plan and re asoning, but continue to have a lot of questions, including is this the right thing to do. We discussed that we are not necessarily escalating care, but it would no t yet be appropriate to discontinue care as we hope to get patient through infection and encephalopathy. Family is aware that he is a cutely ill and do want pain meds and for patient to be as comfortable as possible through this. #Sepsis #MRSA bacteremia Likely from skin source. Need to r/o endocarditi s or PROCESSING ENGINEER but pt has been too encephalopathic for MRI/TTE. Spinal imaging neg but not done with contrast. TTE poor images -Stop Vancomycin. Start Daptomycin and Ceftaroli n per ID -bld and urine cx growing MR SHEA. Cxs still positive from 05/09. Repeat cxs ordered today. -MRI brain and spine when possible. Pt too alter ed today. -ID consulted, Neurology consulted, appreciate a ssistance -Holding off on LP, meningitis less likely -Neurology did brief EEG after admission. No sei zure activity. Encephalopathy picture. They will repeat more involved EEG toda y given worsening of mental status -will need YAMILETH when possible #Metabolic encephalopathy Presumed 2/2 infection - continue 1:1 as needed. Family at bedside toda y. - Intermittent fluids for hydration, though hold ing today given respiratory decomp yesterday evening. CXR then showed conges tion and effusions. - NPO due to mental status #Suspected seizure: Prior to hospitalization. EEG here showed genera l slowing but no acute epileptiform activity -Keppra IV 750mg BID -Seizure precautions -Neurology following closely -MRI brain and T spine with and without contrast when pt able to tolerate/cooperate #Acute respiratory failure occurred afternoon 05/08. Mark Anthony e worsening today. TTE on admission was negative for endocarditis but poor quality. EF est low normal . - will hold lasix due to LATHA and wait for nephro recs - Portable CXR ordered this morning - supplemental oxygen as needed #H/o afib on DOAC #Afib with RVR - holding DOAC given NPO. Had not anticoagulated to this point outside of [facility] - In RVR this morning. Starting diltiazem drip w ith titrate for HR < 100 - cardiology consult for hel p with afib, anticoagulation decisions, getting TTE done - need TTE repeat to r/o endocarditis. Attempted to do this yesterday. #Hypernatremia #LATHA #CKD3 - creat to 1.6 today from 1. 1. Sodium 150 yest. No improvement with D5 1/2 NS x 1L - Received lasix 05/09 - gave 1L slow fluids overnight for hydration an d sodium - nephrology consult today for assistance. Suspe ct possible ATN from infection/vanc, but will w/u for other causes - horton placed o/n and pt put out 700cc immediately so also possible component of retention/obstruction - continue horton - UA with fena and urine eos ordered and d/w RN to send urine #DM2 - MDSSI, hypoglycemia protocol, qid glucose - Atorvastatin 5mg daily, ASA 81mg daily on hold for NPO #FEN/GI: NPO for mental status. EXAM AT THE TIME OF DISCHARGE CONSTITUTIONAL: Appears ill, encephalopa thic, responds to voice. Not following EYES: No conjunctival injection. ENT: Nose with no drainage. RESPIRATORY: Lungs course CARDIOVASCULAR: tachy and irregular GASTROINTESTINAL: Abdomen soft, nontender. Bowel sounds are present. SKIN: No jaundice. LABORATORY ON THE DAY OF DISCHARGE FINGERSTICK GLUCOSE: 367 H B-TYPE NATRIURETIC PEPTIDE: 59 BILIRUBIN,TOTAL: 1.6 H BILIRUBIN,DIRECT: 1.2 H ALKALINE PHOSPHATASE(37C): 102 SGOT(37C): 30 SGPT(37C): 42 CK,TOTAL(37C): 16 L GAMMA-GTP(): 52 WBC: 15.93 H RBC: 3.60 L HGB: 11.2 L HCT: 35.3 L MCV: 98.1 MCH: 31.1 MCHC: 31.7 L RDW: 15.2 H PLT: 231 MPV: 11.2 H GLUCOSE: 396 H UREA NITROGEN: 28 H CREATININE: 1.6 H SODIUM: 150 H POTASSIUM: 3.7 CHLORIDE: 120 H CO2: 23 CALCIUM: 8.4 MAGNESIUM: 2.1 ANION GAP: 7 CREATININE EGFR (CKD-EPI): 42 L FINGERSTICK GLUCOSE: 345 H FINGERSTICK GLUCOSE: 375 H Time spent on discharge process: 40 minutes, due to extended counseling and co?rdination of c are. /ronni/ CODIE LEON MD Signed: 05/11/2022 14:23 May 11, 2022 11:00 TEAM NOTE: JOSE A PRINCE RN [facility] TITLE: RAPID RESPONSE TEAM NOTE STANDARD TITLE: TEAM NOTE DATE OF NOTE: MAY 11, 2022@11:00 ENTRY DATE: MAY 11, 2022@12:24:24 AUTHOR: JOSE A PRINCE RN EXP COSIGNER: URGENCY: STATUS: COMPLETED Manager Business Intelligence notified of pt status by primary RN. MDs at bedside speaking with family on previous BARREL LATHE OPERATOR OUTSIDE RN rounds. Confirmed code status DNR and DNI with pt's MD wayne bolanos family (Wade) at bedside. Prior to starting dilt gtt - B/P 80s-90s/--. So it was held per MD order. Breathing sounded labored with secretions. Write r NT and orally suctioned for small amount of thick sticky secretions. Continued to have the raspy, congested breathing. Oral care provided again. No gag refl ex with suction, no cough. HR decreased from 120s to 80-110. B/P 70s/-- MD at bedside. Confirmed no further intervention s. B/P then decreased to 60s/-- Family (Wade) at b edside confirmed no pressors, no ICU, but to have pt pass comfortably on 3K. C hris called Janet to tell her the situation. [facility] pt had . Pt became apneic with a few agonal breaths. HR decreased. Pt appearing comfortable. Pt's family member states nu merous times how grateful he was for the care the pt received on this hospital stay. /ronni/ JOSE A PRINCE ALL ROUND BUTCHER NURSE Signed: 05/11/2022 12:35 May 11, 2022 10:26 INTERNAL MEDICINE INPATIENT NOTE: CAROLYNNAOMI PENG Camron [facility] TITLE: MEDICINE INPT PROGRESS NOTE STANDARD TITLE: INTERNAL MEDICINE INPATIENT NOTE DATE OF NOTE: MAY 11, 2022@10:26 ENTRY DATE: MAY 11, 2022@10:26:07 AUTHOR: CODIE LEON EXP COSIGNER: URGENCY: STATUS: COMPLETED MEDICINE INPT PROGRESS NOTE Has ADDENDA MEDICINE INPATIENT PROGRESS NOTE HISTORY This 86 y/o admitted 05/06 with sepsis. MRSA grew in multiple bottles within 1 hour initially. He has continued to grow MRSA in repeat cultures. Very encephalopathic since admiss ion, possibly some worsening today. Head CT repeated yesterday was non acute. Tod ay pt appears quite ill. Upper airway breath sounds and increased WOB. More encephalopathic. He did receive dilaudid and haldol through the night. Also rece ived 1L of fluids over 10 hrs o/n. Spoke with family at bedside. wade is very worried. Confi bibi again DNR/DNI and no extraordinary measures wanted by family. We did talk through t hat pt's condition is still potentially quite treatable with abx and we should give some more time. ID and neuro seen at bedside this m orning and case discussed. We are getting nephro and cards on board and adjusting abx. All or ders and med changes discussed with RN at bedside throughout the mo rning and, again, family present throughout so they have a good understanding of plan and re asoning, but continue to have a lot of questions, including is this the right thing to do. We discussed that we are not necessarily escalating care, but it would no t yet be appropriate to discontinue care as we hope to get patient through infection and encephalopathy. Family is aware that he is a cutely ill and do want pain meds and for patient to be as comfortable as possible through this. MEDICATIONS (NOT A COMPLETE LIST) Active Inpatient Medications (including Supplies ): Active Inpatient Medications Status 1) ARTIFICIAL SALIVA SPRAY,ORAL 2 SPRAYS PO Q1H PRN dry ACTIVE mouth 2) CALCITONIN SALMON SOLN,NASAL 200UNIT/1SPRAY N A(1) ACTIVE QDAY alternating nostrils in the evening 3) DEXTROSE 50% WATER (INPT) INJ,SOLN 25-50ML IV PRN ACTIVE Instructions too long. See order details for fu ll text. 4) DILTIAZEM INJ DILTIAZEM 100 MG in DEXTROSE 5% IN ACTIVE WATER 100 ML TITRATE*CONC=1 MG/ML@0 IV 5) FINASTERIDE TAB 5MG PO QDAY ACTIVE 6) GLUCAGON (INPT) INJ 1MG/1VIAL IM PRN Instruct ions ACTIVE too long. See order details for full text. 7) GLUCOSE SOLN (INPT) LIQUID 36ML-67.5ML PO PRN ACTIVE Instructions too long. See order details for fu ll text. 8) GLUCOSE TAB,CHEWABLE 20-32GM PO PRN Instructi ons too ACTIVE long. See order details for full text. 9) HALOPERIDOL LACTATE INJ,SOLN 2MG/0.4ML IV Q4H PRN ACTIVE for delirium/agitation 10) HEPARIN INJ,SOLN 5000UNIT/1ML SQ TID ACTIVE 11) HYDROMORPHONE INJ,SOLN 1MG/1ML IV Q2H PRN fo r pain ACTIVE 12) LEVETIRACETAM INJ,SOLN LEVETIRACETAM 750 MG in 0.9% ACTIVE NACL 100 ML INFUSE OVER 15 MINUTES IV BID 13) NYSTATIN CREAM,TOP THIN LAYER TOP BID PRN sk in folds ACTIVE for fungal infection/rash 14) ONDANSETRON INJ,SOLN 4MG/2ML IV Q6H PRN FOR NAUSEA - ACTIVE try second 15) SALINE FLUSH INJ 10ML IV Q8H AFTER EACH USE, MINIMUM ACTIVE OF EVERY SHIFT. Pending Inpatient Medications Status 1) CEFTAROLINE INJ,PWDR 600MG/1VIAL IV Q8H PENDI NG 2) DAPTOMYCIN INJ,LYPHL 1000MG/2VIAL IV QDAY PEN DING 17 Total Medications DIET NPO EXAM CONSTITUTIONAL: Appears ill, encephalopa thic, responds to voice. Not following commands. Temperature: 100.9 F [38.3 C] (05/06/2022 22:00 ) Pulse: 101 (05/06/2022 22:00) Respirations: 16 (05/06/2022 22:00) Blood Pressure: 141/99 (05/06/2022 22:00) Pain: 99 (05/11/2022 08:39) EYES: No conjunctival injection. ENT: Nose with no drainage. RESPIRATORY: Lungs course CARDIOVASCULAR: tachy and irregular GASTROINTESTINAL: Abdomen soft, nontender. Bowel sounds are present. SKIN: No jaundice. LABORATORY AND IMAGING B-TYPE NATRIURETIC PEPTIDE: 59 BILIRUBIN,TOTAL: 1.6 H BILIRUBIN,DIRECT: 1.2 H ALKALINE PHOSPHATASE(37C): 102 SGOT(37C): 30 SGPT(37C): 42 CK,TOTAL(37C): 16 L GAMMA-GTP(): 52 WBC: 15.93 H RBC: 3.60 L HGB: 11.2 L HCT: 35.3 L MCV: 98.1 MCH: 31.1 MCHC: 31.7 L RDW: 15.2 H PLT: 231 MPV: 11.2 H GLUCOSE: 396 H UREA NITROGEN: 28 H CREATININE: 1.6 H SODIUM: 150 H POTASSIUM: 3.7 CHLORIDE: 120 H CO2: 23 CALCIUM: 8.4 MAGNESIUM: 2.1 ANION GAP: 7 CREATININE EGFR (CKD-EPI): 42 L FINGERSTICK GLUCOSE: 345 H FINGERSTICK GLUCOSE: 375 H ASSESSMENT AND PLAN #Sepsis #MRSA bacteremia Likely from skin source. Need to r/o endocarditi s or PROCESSING ENGINEER but pt has been too encephalopathic for MRI/TTE. Spinal imaging neg but not done with contrast. TTE poor images -Stop Vancomycin. Start Daptomycin and Ceftaroli n per ID -bld and urine cx growing MR SHEA. Cxs still positive from 05/09. Repeat cxs ordered today. -MRI brain and spine when possible. Pt too alter ed today. -ID consulted, Neurology consulted, appreciate a ssistance -Holding off on LP, meningitis less likely -Neurology did brief EEG after admission. No sei zure activity. Encephalopathy picture. They will repeat more involved EEG toda y given worsening of mental status -will need YAMILETH when possible #Metabolic encephalopathy Presumed 2/2 infection - continue 1:1 as needed. Family at bedside toda y. - Intermittent fluids for hydration, though hold ing today given respiratory decomp yesterday evening. CXR then showed conges tion and effusions. - NPO due to mental status #Suspected seizure: Prior to hospitalization. EEG here showed genera l slowing but no acute epileptiform activity -Keppra IV 750mg BID -Seizure precautions -Neurology following closely -MRI brain and T spine with and without contrast when pt able to tolerate/cooperate #Acute respiratory failure occurred afternoon 05/08. Mark Anthony e worsening today. TTE on admission was negative for endocarditis but poor quality. EF est low normal . - will hold lasix due to LATHA and wait for nephro recs - Portable CXR ordered this morning - supplemental oxygen as needed #H/o afib on DOAC #Afib with RVR - holding DOAC given NPO. Had not anticoagulated to this point outside of [facility] - In RVR this morning. Starting diltiazem drip w ith titrate for HR < 100 - cardiology consult for hel p with afib, anticoagulation decisions, getting TTE done - need TTE repeat to r/o endocarditis. Attempted to do this yesterday. #Hypernatremia #LATHA #CKD3 - creat to 1.6 today from 1. 1. Sodium 150 yest. No improvement with D5 1/2 NS x 1L - Received lasix 05/09 - gave 1L slow fluids overnight for hydration an d sodium - nephrology consult today for assistance. Suspe ct possible ATN from infection/vanc, but will w/u for other causes - horton placed o/n and pt put out 700cc immediately so also possible component of retention/obstruction - continue horton - UA with fena and urine eos ordered and d/w RN to send urine #DM2 - MDSSI, hypoglycemia protocol, qid glucose - Atorvastatin 5mg daily, ASA 81mg daily on hold for NPO #Hx Gout- No apparent active flare. Continue HAND COUNTER allopurinol 100mg daily once able to take po #BPH- Continue home finasteride when able to ferdinand e po #FEN/GI: NPO for mental status. Re-order AQUATIC LIFE LABORER whe n appropriate. #Code status: DNR/DNI #Dispo: pending improvement. Family updated at b edside and over phone this morning. /ronni/ CODIE LEON MD Signed: 05/11/2022 10:43 05/11/2022 ADDENDUM STATUS: COMPLETED Long discussion with family yesterday and day previous, given patient's severity of illness, about pt's wishes if he woul d need escalation of cares. Family has been very straightforward th at patient is DNR/DNI, would not want extraordinary measures. Yesterday and today they were questioning even current level of care as patient would not want to be like this. We had several conversations regarding sepsis being treatable and expectation for improvement, while also being open about the fact that he is ext remely sick and body is under a lot of stress, but that it is appropriate to continue c urrent level of care at this time. Yesterday family wanted more meds for pain and comfort as they felt patient was uncomfortable an d restless. They were very concerned he couldn't let us know how much pain his back causes hi m. We did increase dilaudid dosing and he was receiving haldol as w ell. Family has been at bedside through most of each day and yesterday they felt haldol and dilaudid were helping pt be more restful. Again son questioned whether we should continue cares this morning as patient looked worse than previous d ay. I did reassure him that we were not necessarily escalating measures, just doing everything we co uld to try to help patient through infection. Wade, son (but not by blood? ), at bedside, and niece over phone were again clear that patient woul d not want intubation, CPR or transfer to ICU. When patient further declined, pressors and ICU were brought up and Wade firmly said they did not want that. /es/ CODIE LEON MD Signed: 05/11/2022 14:14 May 11, 2022 07:00 NURSING NOTE: JOSSUE EPPERSON [facility] LOCAL TITLE: TELEMETRY AND OXIMETRY CENTRALIZED NOTE A STANDARD TITLE: NURSING NOTE DATE OF NOTE: MAY 11, 2022@07:00 ENTRY DATE: MAY 11, 2022@11:50:04 AUTHOR: JOSSUE EPPERSON EXP COSIGNER: URGENCY: STATUS: COMPLETED Telemetry (Cardiac) Monitor: Day Shift Telemetry initiation date/time: Apr@16: 45. Telemetry indication: Sepsis/Critical Care Cardiac History: HTN, Afib, DHF, HFrEF Cardiac rhythm interpretation: Afib with RVR HR:117 NM Int: N/A QRS Int:0.092 QT Int:0.288 QTc Int:0.402 Telemetry leads monitored this shift: V lead an d II Alarm parameters verified this shift Significant cardiac events noted this shift (pr ocedures, cardiac drips, ectopy, chest pain, changes in rhythm, etc.): P t started brandying, into the 50s (AFIB) @ 11:26. BROOKS Fabian could no t be reached on Vocera. At 11:29 pt.'s HR dropped to the mid/low 30s. Manager Business Intelligence went to [facility] nurses station and patients room to ensure staff was with patient. heater room helper Kathy notified telemetry of patients at 11:31. Comments: Continuous Oximetry Monitor: Day Shift Continuous oximetry initiation date/time: Apr 19@16:45. Oximetry indication: Not Stated Respiratory history: None Continuous oximetry readin-92% Alarm parameters verified this shift. Accuracy of oxygen reading verified by waveform and/or review. /ronni/ JOSSUE EPPERSON Telemetry Technicnian Signed: 05/11/2022 12:37 May 11, 2022 02:44 NURSING INPATIENT NOTE: SARITA BENSON [facility] LOCAL TITLE: [facility] NURSING PROGRESS NOTE STANDARD TITLE: NURSING INPATIENT NOTE DATE OF NOTE: MAY 11, 2022@02:44 ENTRY DATE: MAY 11, 2022@02:44:11 AUTHOR: SARITA BENSON EXP COSIGNER: URGENCY: STATUS: COMPLETED Nursing Shift Note Nursing care provided from [id number] Highlights from shift: Afebrile, opens eyes to voice/touch. Not follow ing commands. on 3L oxymask, sats mid 90s, breathing deep with accessory musc le use. Occasional nonproductive congestive cough. Resel geni around 2029, haloperidol given X1, bladder scan was 703 ml, MOD Dr. Dial notified, Horton placed by resource nurse Ryan, draining 70 0ml within minutes. There are some red sediments in urine, MD aware. Mitts meghan lied to bilateral hands,not tied to bed. Pt was reaching for Horton during pl acement a couple of times. Pt intermittently restless/ moaning during the nigh t, hydromorphonegiven with relief. No stool. Turned and repositoned q2h. BS was 346 at 2030, MD aware. Per orders on paper,held all insulin. 1L of D5/0.45% NaCl +20meqK infusion done. Urine output has decreased in the morning. See ICCA for detailed assessment, Educa tion provided on medication/cares this shift as needed SKIN REINSPECTION/REASSESSMENT SKIN INSPECTION: Skin Color: Usual for ethnicity Skin Temperature: Warm Skin Moisture: Dry Skin Turgor: Non-Elastic INTERVENTIONS: No change in previous interventions as listed b elow PRESSURE ULCER-EDUCATION [C] 05/07/2022 Educate Importance Of Changing Posit ion Provide Education On Cause/Prevention PRESSURE ULCER-FRICTION/SHEAR [C] 05/07/2022 Elevate Head of Bed For Meals PRESSURE ULCER-MOISTURE [C] 05/07/2022 Condom Catheter Maintain Clean Dry Skin Protective Barrier Ointment PRESSURE ULCER-NUTRITION [C] 05/07/2022 Encourage Eating And Assist With Morenita ls Monitor Fluid/Food Intake Offer Liquids Q2H When Turning Tray Set Up And Assistance PRESSURE ULCER-PRESSURE REDUCING [C] 05/07/2022 Elevate Heels Frequent Position Changes Heel/Elbow Pads Turn And Reposition Q2H PRESSURE ULCER-REMOBILIZE [C] 05/07/2022 Encourage Activity As Tolerated RISK FACTORS THAT INCREASE RISK FOR DEVELOPING PRESSURE INJURIES: The patient/resident has the following: Age over 75 Known vascular surgery or vascular disease Localized abnormality: Other: Location(s): cut to the left hand Skin Interventions performed this shift: Patient turned [id number] or as appropriate while in bed. Patient's heels elevated with pressure relief b oots or pillows under calves. Patient kept clean and dry with barrier cream a pplied as ordered. Device(s) removed and skin underneath was inspe cted. Head of Bed kept below 30 degrees unless otherw ise ordered. /ronni/ SARITA BENSON RN RN Signed: 05/11/2022 07:19 May 11, 2022 02:14 NURSING SECLUSION RESTRAINT NOTE: LAITH BENSON X [facility] TITLE: RESTRAINT DOCUMENTATION STANDARD TITLE: NURSING SECLUSION RESTRAINT NOTE DATE OF NOTE: MAY 11, 2022@02:14 ENTRY DATE: MAY 11, 2022@02:14:28 AUTHOR: SARITA BENSON EXP COSIGNER: URGENCY: STATUS: COMPLETED Medical Use Restraint Assessment Restraint(s) Inititated: Date and Time: 22:00 05/10/22 I. A. Patient is at imminent risk for self-harm by disrupting medical treatment as demonstated by the following: attempting to remove a catheter/line/tube, atte mpting to contaminate the insertion site of a catheter/line/tube or surgi kinza incision, inability to follow or remember instructions, other: restles sness B. The Patient has one or more of the following treatment modalities in his/her treatment plan: peripheral or central intravenous lines, other catheters such as horton, nasogastric or gastric tubes II. The following alternate interventions were attempted prior to initiating restraints: attempts to reorient, reassure, and re-explain purpose of device/tube, moved patient closer to nursing station, reduce d stimuli by dimming lights, decreasing noise or limiting visitors, created barrieer to pulling out IV, tubes or dressing by applying kerlix, abdoninal binder, etc., assured adequate pain relief III. Family Involvement/Education family unavailable /ronni/ SARITA BENSON RN RN Signed: 05/11/2022 02:16 May 10, 2022 11:15 NURSING NOTE: RACHEAL ARMSTRONG V [facility] PM LOCAL TITLE: TELEMETRY AND OXIMETRY CENTRALIZED NOTE STANDARD TITLE: NURSING NOTE DATE OF NOTE: MAY 10, 2022@23:15 ENTRY DATE: MAY 10, 2022@23:41:18 AUTHOR: RACHEAL ARMSTRONG EXP COSIGNER: URGENCY: STATUS: COMPLETED Telemetry (Cardiac) Monitor: Heel Slugger Telemetry initiation date/time: Apr@16: 45. Telemetry indication: Other Cardiac History: HFrEF,A Fib,Diastolic Heart Fa ilure, HTN Cardiac rhythm interpretation: A-FIB w/ RVR ( H R 120 ) HR:120 NM Int:N/A QRS Int:.087 QT Int:.333 QTc Int:-- Telemetry leads monitored this shift: II and V lead Alarm parameters verified this shift: Yes /yvette ARMSTRONG Industrial Education Instructor Signed: 05/10/2022 23:43 May 10, 2022 10:03 NURSING INPATIENT NOTE: CAROLINA MICHELLE [facility] PM LOCAL TITLE: [facility] NURSING PROGRESS NOTE STANDARD TITLE: NURSING INPATIENT NOTE DATE OF NOTE: MAY 10, 2022@22:03 ENTRY DATE: MAY 10, 2022@22:03:33 AUTHOR: CAROLINA MICHELLE EXP COSIGNER: URGENCY: STATUS: COMPLETED Horton Catheter Indwelling Horton Catheter Placement Patient and family educated: No, unable to educa te patient due to acute delerium. Bedside nurse to educate family when a ppropriate. Indwelling Horton Catheter placed utilizing asept ic technique Type of catheter used: 16fr Coude Lidocaine jelly 2% urojet used: Yes Bulb inflated with 10mls of Sterle Saline Catheter secured to: Stat-Lock on lower extremit y Urine bag half full upon leaving room. Catheter was inserted: without difficulty Patient tolerated procedure: well, no s/s of dis comfort noted or verbalized Unexpected outcomes: none, pt appears comfortabl e at rest, no s/s of acute distress noted or verbalized Will continue to monitor. /ronni/ CAROLINA MICHELLE REGISTERED NURSE Signed: 05/10/2022 22:05 May 10, 2022 03:00 NURSING NOTE: JOSSUE EPPERSON [facility] PM LOCAL TITLE: TELEMETRY AND OXIMETRY CENTRALIZED NOTE A STANDARD TITLE: NURSING NOTE DATE OF NOTE: MAY 10, 2022@15:00 ENTRY DATE: MAY 14, 2022@11:19:53 AUTHOR: JOSSUE EPPERSON EXP COSIGNER: URGENCY: STATUS: COMPLETED Telemetry (Cardiac) Monitor: Evening Shift Telemetry initiation date/time: Apr@16: 45. Telemetry indication: Sepsis/ Critical Care Cardiac History: HTN, Afib, HFrEF, Diastolic HF Cardiac rhythm interpretation: Aflutter with va riable ventricular Conduction HR:124 NM Int: N/A QRS Int:0.102 QT Int: N/A QTc Int: N/A Telemetry leads monitored this shift: V lead an d II Alarm parameters verified this shift /yvette EPPERSON Telemetry Technicnian Signed: 05/14/2022 11:22 May 10, 2022 07:00 NURSING NOTE: JOSSUE EPPERSON [facility] AM LOCAL TITLE: TELEMETRY AND OXIMETRY CENTRALIZED NOTE A STANDARD TITLE: NURSING NOTE DATE OF NOTE: MAY 10, 2022@07:00 ENTRY DATE: MAY 14, 2022@10:58 AUTHOR: JOSSUE EPPERSON EXP COSIGNER: URGENCY: STATUS: COMPLETED Telemetry (Cardiac) Monitor: Day Shift Telemetry initiation date/time: Apr@16: 45. Telemetry indication: Sepsis/ Critical Care Cardiac History: HTN, Afib, HFrEF, Diastolic HF Cardiac rhythm interpretation: FlutterFibrillat ion with HR of 61-199bpm HR:96 NM Int: N/A QRS Int:0.082 QT Int:0.253 QTc Int:0.32 Telemetry leads monitored this shift: V lead an d II Alarm parameters verified this shift /ronni/ JOSSUE EPPERSON Telemetry Technicnian Signed: 05/14/2022 11:08 May 09, 2022 11:29 NURSING INPATIENT NOTE: HUGO CORCORAN [facility] LOCAL TITLE: [facility] ACUTE INPATIENT NSG SHIFT SESENT STANDARD TITLE: NURSING INPATIENT NOTE DATE OF NOTE: MAY 09, 2022@23:29 ENTRY DATE: MAY 09, 2022@23:29:54 AUTHOR: HUGO CORCORAN EXP COSIGNER: URGENCY: STATUS: COMPLETED Nursing Shift Note Nursing care provided from [id number] Highlights from shift: The pt has been disoriented x4. The pt has been agitated and restless; Haldol and Dilaudid PRN have been given with a g ood relief. The pt has not been communicating needs; 1:1 NA sitting with th e pt for safety. 3 L of oxygen via Oxymask with Spo2 in the 90s. Seizure precaution in place See ICCA for detailed assessment SKIN REINSPECTION/REASSESSMENT SKIN INSPECTION: Skin Color: Pale Skin Temperature: Warm Skin Moisture: Dry Skin Turgor: Elastic (normal/immediate) Michael Skin Assessment: The patient's Michael Scale Score is 13. The pat ient is at moderate risk for development of pressure ulcers/injuries. Sensory perception -- ability to respond meanin gfully to pressure-related discomfort Slightly limited. Moisture -- degree to which skin is exposed to moisture Occasionally moist. Activity -- ability to change and control body position Bedfast. Mobility -- ability to change and control body position Slightly limited. Nutrition -- usual food intake patterns Very poor. Friction and shear Potential problem. RISK FACTORS THAT INCREASE RISK FOR DEVELOPING PRESSURE INJURIES: The patient/resident has the following: Malnutrition diagnosis SKIN INTEGRITY: Intact Skin Interventions performed this shift: Patient turned [id number] or as appropriate while in bed. Patient's heels elevated with pressure relief b oots or pillows under calves. Patient kept clean and dry with barrier cream a pplied as ordered. Device(s) removed and skin underneath was inspe cted. Head of Bed kept below 30 degrees unless otherw ise ordered. /ronni/ HUGO PALOMARES RN,BSN REGISTERED NURSE Signed: 05/09/2022 23:35 May 09, 2022 03:50 NURSING INPATIENT NOTE[facility] LOCAL TITLE: [facility] NURSING PROGRESS NOTE STANDARD TITLE: NURSING INPATIENT NOTE DATE OF NOTE: MAY 09, 2022@15:50 ENTRY DATE: MAY 09, 2022@15:50:09 AUTHOR: SAMIR PATE I EXP COSIGNER: URGENCY: STATUS: COMPLETED Medical Use Restraint Assessment. I. A. Patient is at imminent risk for self-harm by disrupting medical treatment as demonstated by the following: attempting to contaminate the insertion site of a catheter/line/tube or surgical incision, inability to follow or rememb er instructions, agitation, altered cognitive state due to anesthesia, medic ations, sleep deprivation or disease process B. The Patient has one or more of the following treatment modalities in his/her treatment plan: peripheral or central intravenous lines, surgica l or neurological drains II. The following alternate interventions were a ttempted prior to initiating restraints: attempts to reorient, reassure, and re-e xplain purpose of device/tube, request that a family member stay with patient, reduced stimuli by dimming lights, decreasing noise or limiting visitors, created b arrieer to pulling out IV, tubes or dressing by applyin g kerlix, abdoninal binder, etc., offered toileting frequently, ensuring horton is patent III. Family Involvement/Education rationale and criteria for restraint application explained to family, patient informed that family notifie d of restraint/seclusion application, other: family at bedside and pt is wearing mitts becuase pt is quick. /ronni/ SAMIR PATE RN REGISTERED NURSE Signed: 05/09/2022 15:52 May 09, 2022 03:17 NURSING INPATIENT NOTE: SAMIR PATE I [facility] LOCAL TITLE: [facility] NURSING PROGRESS NOTE STANDARD TITLE: NURSING INPATIENT NOTE DATE OF NOTE: MAY 09, 2022@15:17 ENTRY DATE: MAY 09, 2022@15:17:53 AUTHOR: SAMIR PATE I EXP COSIGNER: URGENCY: STATUS: COMPLETED Nursing Shift Note Nursing care provided from [phone] Highlights from shift: Pt is confused afibrile b/p have reduce d spo2 on 2 liters via oximask 96%. Pt urine is clear and yellow. Pt remains on special for impulsive behavior pulls at lines and iv's. Pt constantly tries to crawl out of bed and cannot be redirect does not understands complex or simple instructions. See ICCA for detailed assessment, Educa tion provided on medication/cares this shift as needed Skin Interventions performed this shift: Patient turned [id number] or as appropriate while in bed. Patient's heels elevated with pressure relief b oots or pillows under calves. Patient kept clean and dry with barrier cream a pplied as ordered. Device(s) removed and skin underneath was inspe cted. Head of Bed kept below 30 degrees unless otherw ise ordered. /ronni/ SAMIR PATE RN REGISTERED NURSE Signed: 05/09/2022 15:23 May 09, 2022 03:00 NURSING NOTE: BHAVNA CRYSTAL [facility] LOCAL TITLE: TELEMETRY AND OXIMETRY CENTRALIZED NOTE STANDARD TITLE: NURSING NOTE DATE OF NOTE: MAY 09, 2022@15:00 ENTRY DATE: MAY 09, 2022@21:11:52 AUTHOR: BHAVNA CRYSTAL EXP COSIGNER: URGENCY: STATUS: COMPLETED Telemetry (Cardiac) Monitor: Evening Shift Telemetry initiation date/time: Apr@16: 45. Telemetry indication: Other: sepsis Cardiac History: HFrEF, Afib, Diastolic Heart F ailure Cardiac rhythm interpretation: Afib w/ventricul ar rates ranging 66-112 HR:99 NM Int:n/a QRS Int:.087 QT Int:.383 QTc Int:.493 Telemetry leads monitored this shift: II and V lead Alarm parameters verified this shift /ronni/ BHAVNA CRYSTAL HONEY/Industrial Education Instructor Signed: 05/09/2022 21:14 May 09, 2022 01:38 INTERNAL MEDICINE INPATIENT NOTE: NAOMI LEON [facility] PM LOCAL TITLE: MEDICINE INPT PROGRESS NOTE STANDARD TITLE: INTERNAL MEDICINE INPATIENT NOTE DATE OF NOTE: MAY 09, 2022@13:38 ENTRY DATE: MAY 09, 2022@13:38:47 AUTHOR: CODIE LEON EXP COSIGNER: URGENCY: STATUS: COMPLETED MEDICINE INPT PROGRESS NOTE Has ADDENDA MEDICINE INPATIENT PROGRESS NOTE HISTORY This 86 y/o with thoracic spina l fracture who was progressing well in STR up to about 12 days ago, when he became more altered and function declined. He was transferred to an OSH where he merino d what family describes as seizure. He was discharged the following morning. Family bro ught him to [place] for further assessment. He arrived with sepsis and quickly g rew MRSA from blood. Patient continues to be quite altered. Per famil y he had infection of unknown etiology in November and was also altered and slow to recover. Patient was very restless yesterday and had no UOP. Horton was rem umesh and patient immediately produced urine - at least 1- 2L. CT thoaracic spine was done yesterday to better assess for discitis or abscess. For uncl ear reasons (despite calling radiology to discuss) this was done wi thout contrast, which would be insufficient to rule out infection. Will continue to attempt MRI when patient able to cooperate. Pt will also need YAMILETH. I spoke with niece at bedside and family friend Wade over phone in room and updated them and received additional above histo ry. MEDICATIONS (NOT A COMPLETE LIST) Active Inpatient Medications (including Supplies ): Active Inpatient Medications Status 1) ACETAMINOPHEN (INPT) TAB 1000MG PO TID FOR PA IN: MAX ACTIVE DOSE of acetaminophen is 4000mg in 24 hours 2) ARTIFICIAL SALIVA SPRAY,ORAL 2 SPRAYS PO Q1H PRN dry ACTIVE mouth 3) ATORVASTATIN TAB 5MG PO QDAY ACTIVE 4) CALCITONIN SALMON SOLN,NASAL 200UNIT/1SPRAY N A(1) ACTIVE QDAY alternating nostrils in the evening 5) DEXTROSE 50% WATER (INPT) INJ,SOLN 25-50ML IV PRN ACTIVE Instructions too long. See order details for fu ll text. 6) FINASTERIDE TAB 5MG PO QDAY ACTIVE 7) GLUCAGON (INPT) INJ 1MG/1VIAL IM PRN Instruct ions ACTIVE too long. See order details for full text. 8) GLUCOSE SOLN (INPT) LIQUID 36ML-67.5ML PO PRN ACTIVE Instructions too long. See order details for fu ll text. 9) GLUCOSE TAB,CHEWABLE 20-32GM PO PRN Instructi ons too ACTIVE long. See order details for full text. 10) HALOPERIDOL LACTATE INJ,SOLN 2MG/0.4ML IV Q4 H PRN ACTIVE for delirium/agitation 11) HYDROMORPHONE INJ,SOLN 1MG/1ML IV Q3H PRN FO R PAIN ACTIVE 12) INSULIN ASPART (HUMAN) INJ LOW DOSE QHS BRANDYN ECTION ACTIVE SQ QHS Low Dose (requiring less than 40 units/d ay) BG 201-250 1 unit, BG 251-300 2 units, BG 301-3 50 3 units, BG 351-400 4 units, BS >400 5 units 13) INSULIN ASPART (HUMAN) INJ LOW DOSE MEALTIME ACTIVE CORRECTION SQ DTID Low Dose (requiring less stan n 40 units/day) BG 201-250 2 units, BG 251-300 3 uni ts, BG 301-350 4 units, BG 351-400 5 units, BG >400 6 units 14) LEVETIRACETAM INJ,SOLN LEVETIRACETAM 750 MG in 0.9% ACTIVE NACL 100 ML INFUSE OVER 15 MINUTES IV BID 15) MELATONIN CAP/TAB 3MG PO QHS ACTIVE 16) NYSTATIN CREAM,TOP THIN LAYER TOP BID PRN sk in folds ACTIVE for fungal infection/rash 17) ONDANSETRON INJ,SOLN 4MG/2ML IV Q6H PRN FOR NAUSEA - ACTIVE try second 18) ONDANSETRON TAB 4MG PO Q6H PRN FOR NAUSEA - try ACTIVE first 19) SALINE FLUSH INJ 10ML IV Q8H AFTER EACH USE, MINIMUM ACTIVE OF EVERY SHIFT. 20) SERTRALINE TAB 50MG PO QDAY ACTIVE 21) VANCOMYCIN INJ VANCOMYCIN 1000 MG in 0.9% NA CL 250 ACTIVE ML HEPARIN INCOMPAT*OVER 2 HRS* Please obtain vanco trough lab PRIOR to giving dose 05/09 AM I VPB Q12H DIET NPO EXAM CONSTITUTIONAL: Somnolent. Opens eyes to command s. Temperature: 100.9 F [38.3 C] (05/06/2022 22:00 ) Pulse: 101 (05/06/2022 22:00) Respirations: 16 (05/06/2022 22:00) Blood Pressure: 141/99 (05/06/2022 22:00) Pain: 7 (05/09/2022 09:39) EYES: No conjunctival injection. ENT: Nose with no drainage. RESPIRATORY: Lungs clear to auscultation. CARDIOVASCULAR: Tachycardic GASTROINTESTINAL: Abdomen soft, nontender. Bowel sounds are present. SKIN: No jaundice. Lesion on R elbow. NEURO: Altered. LABORATORY AND IMAGING FINGERSTICK GLUCOSE: 240 H VANCOMYCIN-TROUGH: 16.1 H GLUCOSE: 335 H UREA NITROGEN: 25 CREATININE: 1.2 SODIUM: 145 POTASSIUM: 3.2 L CHLORIDE: 112 H CO2: 22 CALCIUM: 8.4 PROTEIN,TOTAL: 5.4 L ALBUMIN: 2.6 L BILIRUBIN,TOTAL: 1.0 MAGNESIUM: 1.9 ANION GAP: 11 ALKALINE PHOSPHATASE(37C): 77 SGOT(37C): 41 H SGPT(37C): 51 CREATININE EGFR (CKD-EPI): 59 L WBC: 14.92 H RBC: 3.41 L HGB: 10.5 L HCT: 32.6 L MCV: 95.6 MCH: 30.8 MCHC: 32.2 RDW: 14.7 H PLT: 197 MPV: 10.8 H SEGS: 86.8 LYMPHS: 5.0 MONOCYTES: 6.9 BASO: 0.2 NEUTROPHIL, ABSOLUTE: 12.95 H BASO, ABSOLUTE: 0.03 MONOCYTE, ALTERNATE ABS: 1.03 H LYMPHS, ALTERNATE ABS: 0.75 L I.1 IG,ABSOLUTE: 0.16 H FINGERSTICK GLUCOSE: 295 H ASSESSMENT AND PLAN #Sepsis #MRSA bacteremia Likely from skin source. -Continue IV Vancomycin, PROCESSING ENGINEER dosing -bld and urine cx growing MRSA. Repeat cxs pendi ng -MRI brain and spine when possible. Pt too alter ed today. -ID consulted, Neurology consulted, appreciate a ssistance -Holding off on LP, meningitis less likely-monit or creat on vanc -will need YAMILETH when possible #Metabolic encephalopathy Presumed 2/2 infection - continue 1:1 as needed. Family at bedside toda y. - Intermittent fluids for hydration, though hold ing today given respiratory decomp yesterday evening. CXR then showed conges tion and effusions. - NPO due to mental status #Suspected seizure: Prior to hospitalization. EEG here showed genera l slowing but no acute epileptiform activity -Keppra IV 750mg BID -Seizure precautions -Neurology following closely -MRI brain and T spine with and without contrast when pt able to tolerate/cooperate #Acute respiratory failure occurred afternoon 05/08. TTE on admission was negative for endocarditis but poor quality. EF est low normal. - lasix 40mg IV stat - pt put out about 2L - CXR showed overload - supplemental oxygen as needed H/o afib on DOAC #CKD3 - creat at baseline - Received lasix yesterday - Will start gentle hydration given no po intake and on Vanc #DM2 - MDSSI, hypoglycemia protocol, qid glucose - Atorvastatin 5mg daily, ASA 81mg daily on hold for NPO #Hx Gout- No apparent active flare. Continue HAND COUNTER allopurinol 100mg daily once able to take po #BPH- Continue home finasteride when able to ferdinand e po #FEN/GI: NPO for mental status. Re-order AQUATIC LIFE LABORER whe n appropriate. #Code status: DNR/DNI #Dispo: pending improvement /ronni/ CODIE LEON MD Signed: 05/09/2022 15:08 05/09/2022 ADDENDUM STATUS: COMPLETED In afib on tele. Holding DOAC as NPO. Adding SQH for DVT ppx. /ronni/ CODIE LEON MD Signed: 05/09/2022 15:10 May 09, 2022 01:20 INFECTIOUS DISEASE ATTENDING NOTE: JESSE GERBER N [facility] LOCAL TITLE: INFECTIOUS DISEASE INPT PROGRESS N OTE STANDARD TITLE: INFECTIOUS DISEASE ATTENDING NOT E DATE OF NOTE: MAY 09, 2022@13:20 ENTRY DATE: MAY 09, 2022@13:20:43 AUTHOR: MARIA LUISA GERBER EXP COSIGNER: JEWELS KINNEY URGENCY: STATUS: COMPLETED INFECTIOUS DISEASE INPT PROGRESS NOTE Has A DDENDA S: Per nursing, pt was joking around with her an d talking about football. At times was agitated and trying to get out of bed. Rapid response called last evening for rr of 36. O2 sat s remained stable on 2-3L Oxymask. Patient was given Lasix, Haldol, and horton removed. This AM pt was sleeping throughout exam. O: Tmax 98.8, hr 85, bp 130-150/60-80s, rr 20-36 , 99% aerosol O2 @2L Exam General: In NAD, sleeping Cardiac: RRR, normal S1/S2 Resp: CTA anteriorly on left, no wheezing, rhonc hi, rales. Unable to assess R lung due to patient's positioning Abdomen: Soft Skin: ~2in bruising on left posterior forearm. B andage over right elbow. Neuro: Did not assess. WBC 14.92 Cr 1.2 Micro: 05/06 UA: Negative nitrites, 78 WBC, 11 RBC, 1 hy elise cast, no bacteria 05/06 BCx: MRSA 05/06 UCx: MRSA 05/07 BCx: MRSA 05/08 BCx: GRAM POSITIVE COCCI IN PAIRS AND CLUST ERS in 3 out of 4 bottles 05/09 BCx: Pending Antimicrobials: Vanc 2g and ciprofloxacin 400mg x1 in the ED 04/19 8 Pip/Tazo 4.5g 05/06-05/07 Vanc 1g 05/06-ongoing Imagin/20 CXR Impression: Expiratory exam with findings of CHF and mild e santa 05/08 CT SPINE THORACIC W/O CONTRAST Impression: Severe compression of T11 involving the [...] or osteomyel itis at any thoracic level. A/P # MRSA Bacteremia Patient was febrile on admis linus, now resolved, has elevated WBC (downtrending), and altered mental status. Cultures growing MRSA . Uncertain source of bacteremia, but likely throu gh skin tear. Spoke with Radiology about the 05/06 CT AP which was concerning for gas within the T10 vertebral body and they think the CT findings are consistent with his recent T11 f racture and lower concern for osteomyelitis/discitis. CT spine w/o contrast on 05/08 showed no evidence of a discitis or osteomyelitis at any thoracic level. The patient has no implants or hardware, TTE noted to have no obvious vegetation t tim the sensitivity of this study for vegetations is very limited and YAMILETH would be better study to rule out endoca rditis. Low suspicion for meningitis given lack of neck stiffness and know n MRSA bacteremia which would explain his elevated WBC, fevers, and altered me ntal status, although PROCESSING ENGINEER infection is on the differe ntial. Do not feel lumbar puncture is urgent at this time, however, if he remains altered or starts developing more focal signs of meningitis such a s neck stiffness would reconsider and pursue for diagnostic purpos es. Patient is at high risk for nephrotoxicity given his age, bacteremia, and Vancomycin, therefore d aily monitoring of his renal function is recommended. Recommendations: - Consider holding off on MRI lumbar and thoraci c spine until patient is able to stay still. - Recommend continuing Vancomycin - Daily BMP to assess renal function - BCx today and Thurs for evaluation of MRSA jack arance - He will likely need YAMILETH for evaluation of endo carditis (not urgent) - ID will continue to follow. Maria Luisa Gerber, MS4 Patient seen and discussed with attending, Dr. Wayne hinkle. /ronni/ MARIA LUISA GERBER MEDICAL STUDENT Signed: 05/09/2022 13:21 /ronni/ DAR KINNEY MD ID Staff Physician Cosigned: 05/09/2022 14:42 05/09/2022 ADDENDUM STATUS: COMPLETED Agree with documentation. Pt remains encephalopa thic and blood cultures continue to be positive (last pos from 05/08) on IV vancomycin. I suspect patient's encephalopathy ref lects septic encephalopathy in the setting of high- grade staph aureus bacteremi a, though would also consider other etiologies (i.e. septic emboli to the brain, seizure, etc). Appre ciaramos neurology input. Agree with plan for MRI of the brain and spine once chaz meyer is able to follow directions. A YAMILETH will also be needed. If persis tent confusion precludes our ability to obtain additional imaging in the next 24-48 hours and blood cultures remain positive, will consider other diagnostic tests in the interim (i.e. repeat TTE), and discuss with hospitalist team [place] safety/feasibility of pursuing an MRI/YAMILETH in setti ng of ongoing confusion. Serial exams to assess for new metastatic sites of infection. Discu ssed with hospitalist. ID will follow. /ronni/ DAR KINNEY MD ID Staff Physician Signed: 05/09/2022 14:55 May 09, 2022 08:20 NURSING RISK ASSESSMENT SCREENING NOTE: MANDO HOLDER [facility] LOCAL TITLE: CONTINUOUS OBSERVATION / 1:1 SUICI DE SAFETY WATCH STANDARD TITLE: NURSING RISK ASSESSMENT SCREENIN G NOTE DATE OF NOTE: MAY 09, 2022@08:20 ENTRY DATE: MAY 09, 2022@08:20:15 AUTHOR: MANDO SANCHEZ EXP COSIGNER: URGENCY: STATUS: COMPLETED Nursing Continuous Observation Re-Assessment an d/or Discontinuation: Altered level of conciousness/disorientation Posititive for delirium (per CAM assessment) Pulling at tubes/draines/vascular access device s Inability to follow safety instructions Continues need for 1:1 d/t agitation, safety con cern/risk. /ronni/ MANDO SANCHEZ BSN, RN Signed: 05/09/2022 08:21 May 09, 2022 07:00 [facility]: TELEMETRY AND OXIMETRY CENTRALIZED NOTE A STANDARD TITLE: NURSING NOTE DATE OF NOTE: MAY 09, 2022@07:00 ENTRY DATE: MAY 09, 2022@11:06:25 AUTHOR: JOSSUE EPPERSON EXP COSIGNER: URGENCY: STATUS: COMPLETED Telemetry (Cardiac) Monitor: Day Shift Telemetry initiation date/time: Apr@16: 45. Telemetry indication: Sepsis/ Critical Care Cardiac History: HTN, Afib, HFrEF, Diastolic HF Cardiac rhythm interpretation: Afib with HR in the range of 72-93bpm HR:78 NM Int: N/A QRS Int:0.076 QT Int:0.357 QTc Int:0.408 Telemetry leads monitored this shift: V lead an d II Alarm parameters verified this shift Alarm parameters modified from default settings : 130 to 134 as directed by nursing From Previous Shift /ronni/ JOSSUE EPPERSON Telemetry Technicnian Signed: 05/09/2022 11:11 May 09, 2022 04:15 NURSING INPATIENT NOTE: [facility]Z [facility] LOC[facility] TITLE: CHATO NURSING PROGRESS NOTE STANDARD TITLE: NURSING INPATIENT NOTE DATE OF NOTE: MAY 09, 2022@04:15 ENTRY DATE: MAY 09, 2022@04:16 AUTHOR: MANDO SANCHEZIGNER: URGENCY: STATUS: COMPLETED NURSING SHIFT ASSESSMENT Assumed cares from: 23:30 to 08:00 SEE BCMA/ICCA for complete clinical assessment Code Status: DNR only Admitting Dx: UTI SEPSIS Service Branch: [employer] Allergies: SIMVASTATIN (Feb 29, 2004) CEPHALEXIN (Mar 01, 2004) Food Allergies: None Highlights: Pt continues to have increased WOB, agitation, n on-verbal pain. Continued to monitor overnight. No changes from start of tour . Assessments: PAIN: Denied pain verbally. Non-verbal m oaning, increasingly agitated, covered with PRN hydromorphone q3h. NEURO: A&Ox1 to self only, Pt unable to make nee ds known. On continuous observation with 1:1 in room and soft Mitt restr aints to prevent lines from being pulled. Agitated at ti mes overnight, given PRN haloperidol as needed, last dose around 05:43. CV: Denies chest pain, dizziness, headache, palp itations. TELEMETRY: afib, increased HR with movement. RESP: Increased SOB, WOB, RR 20-24. O2 3L with o xymask SpO2 > 95%. GI: Denies abdominal discomfort, N/V/D. DIET:NPO : QIVY in place. SKIN: Tyrone'rui drsg to skin tear on Rt el bow & Rt forearm, cleansed and applied hdyrogel per orders. Additional erythema, scabs to Lt forearm. Skin Interventions performed this shift: Patient turned [id number] or as appropriate while in bed. Patient's heels elevated with pressure relief b oots or pillows under calves. Patient kept clean and dry with barrier cream a pplied as ordered. Device(s) removed and skin underneath was inspe cted. Head of Bed kept below 30 degrees unless otherw ise ordered. VASCULAR ACCESS: PIVx1 to Rt forearm GTTS: N/A WEIGHT: Measurement DT WEIGHT LB(KG)[BMI] 05/08/2022 21:14 259.7(117.80)[34*] 05/07/2022 00:15 266.76(121.00)[35*] 05/06/2022 10:41 257.4(116.75)[34*] ACTIVITY: on continuous obs & mitts. LABS: WBC: WBC 18.54 H (05/08/22) Hgb: HGB 11.5 L (05/08/22) HCT: HCT 35.1 L (05/08/22) PLT: PLT 221 (05/08/22) PT: PT 14.2 H (05/08/22) INR:INR 1.2 H PLASMA (05/08/22 05:30) Na: SODIUM 146 H (05/08/22) K+: POTASSIUM 3.5 (05/08/22) Mg: MAGNESIUM 1.9 (05/08/22) CREAT: CREATININE 1.3 H (05/08/22) ALBUMIN: ALBUMIN 2.9 L (05/08/22) LAB RESULTS TODAY - NONE FOUND /ronni/ MANDO MACEDO, RN Signed: 05/09/2022 08:19 May 08, 2022 11:25 NURSING NOTE: CONNOR IZAGUIRRE [facility] LOCAL TITLE: MTAES NSG IV INSERTION AND MAINTEN ANCE STANDARD TITLE: NURSING NOTE DATE OF NOTE: MAY 08, 2022@23:25 ENTRY DATE: MAY 08, 2022@23:25:21 AUTHOR: CONNOR IZAGUIRRE EXP COSIGNER: URGENCY: STATUS: COMPLETED Version 2.2 Charting in accordance with [place] APPROVED ENTERPRI SE STANDARD (MTAES) ACUTE INPATIENT/REHABILITATION [facility] ADMISSION SCREENING, ASSESSMENT, AND STANDARDS OF CARE IV Line Insertion and Maintenance Peripheral IV Line #2: Insertion: Date/Time: Apr@22:15 Inserted by (name): Manager Business Intelligence Insertion Aid: Ultrasound guided Location: Right, Forearm Gauge: 20 x 1.25 Dressing Condition: Clean, dry, intact Transparent dressing Site Condition: No redness, swelling, pain Line Status: Capped Flushed Positive blood return /es/ CONNOR IZAGUIRRE LPN LICENSED PRACTICAL NURSE Signed: 05/08/2022 23:25 May 08, 2022 11:15 NURSING NOTE: LEOBARDO AGUILAR [facility] LOCAL TITLE: TELEMETRY AND OXIMETRY CENTRALIZED NOTE STANDARD TITLE: NURSING NOTE DATE OF NOTE: MAY 08, 2022@23:15 ENTRY DATE: MAY 09, 2022@04:29:04 AUTHOR: LEOBARDO AGUILAR EXP COSIGNER: URGENCY: STATUS: COMPLETED Telemetry (Cardiac) Monitor: Heel Slugger Telemetry initiation date/time: Apr@16: 45. Telemetry indication: Other Cardiac History: HFrEF,A Fib,Diastolic Heart Fa ilure Cardiac rhythm interpretation: Afib HR:85 NM Int: QRS Int:.083 QT Int: QTc Int: Telemetry leads monitored this shift: II and V lead Alarm parameters verified this shift: Yes /ronni/ LEOBARDO AGUILAR [facility] Signed: 05/09/2022 04:30 May 08, 2022 10:56 CRITICAL CARE UNIT NOTE: CONNOR BONILLALA [facility] PM LOCAL TITLE: ICCA INPATIENT FLOWSHEET STANDARD TITLE: CRITICAL CARE UNIT NOTE DATE OF NOTE: MAY 08, 2022@22:56 ENTRY DATE: MAY 08, 2022@22:56:44 AUTHOR: CONNOR BONILLA EXP COSIGNER: URGENCY: STATUS: COMPLETED Nursing Shift Note Nursing care provided from [id number] Highlights from shift: Vet seen somnolent but restless, frequently atte mpting to get out of bed and pulling off leads and other lines. Able to answe r simmple yes/no questions. Patient seen with increased work of jeanette thing, using all accessory muscles. He was tachypneic with respiratory rate up to 36. However,O2 sats remained stable on 2-3L via Oxymask. LS coar se at bases bilaterally. Manager Business Intelligence called BARREL LATHE OPERATOR OUTSIDE. Chest X- Ray was obtained and IV Lasi x given per MD order. 1mg of Haldol was given with a fleeting effect. Horton taya ter was removed per MD order. Qivi placed on patient and voiding good urine output. Had a tot al of 2L UOP this shift. Patient urine was initially pink/juan pablo in color but urine now clear yellow. Mitts placed on bilateral hands to prevent p ulling on lines and 1:1 safety deposit supervisor at bedside. See ICCA for detailed assessment, Educa tion provided on medication/cares this shift as needed SKIN REINSPECTION/REASSESSMENT SKIN INSPECTION: Skin Color: Erythema Skin Temperature: Warm Skin Moisture: Moist, Diaphoretic Skin Turgor: Elastic (normal/immediate) Michael Skin Assessment: The patient's Michael Scale Score is 10. The pat ient is at high risk for development of pressure ulcers/injuries. Sensory perception -- ability to respond meanin gfully to pressure-related discomfort Slightly limited. Moisture -- degree to which skin is exposed to moisture Very moist. Activity -- ability to change and control body position Bedfast. Mobility -- ability to change and control body position Completely immobile. Nutrition -- usual food intake patterns Probably inadequate. Friction and shear Problem. INTERVENTIONS: No change in previous interventions as listed b eleddie PRESSURE ULCER-EDUCATION [C] 05/07/2022 Educate Importance Of Changing Posit ion Provide Education On Cause/Prevention PRESSURE ULCER-FRICTION/SHEAR [C] 05/07/2022 Elevate Head of Bed For Meals PRESSURE ULCER-MOISTURE [C] 05/07/2022 Condom Catheter Maintain Clean Dry Skin Protective Barrier Ointment PRESSURE ULCER-NUTRITION [C] 05/07/2022 Encourage Eating And Assist With Morenita ls Monitor Fluid/Food Intake Offer Liquids Q2H When Turning Tray Set Up And Assistance PRESSURE ULCER-PRESSURE REDUCING [C] 05/07/2022 Elevate Heels Frequent Position Changes Heel/Elbow Pads Turn And Reposition Q2H PRESSURE ULCER-REMOBILIZE [C] 05/07/2022 Encourage Activity As Tolerated RISK FACTORS THAT INCREASE RISK FOR DEVELOPING PRESSURE INJURIES: The patient/resident has the following: Age over 75 Potential compromised nutritional status SKIN INTEGRITY: Intact Skin Interventions performed this shift: Patient turned [id number] or as appropriate while in bed. Patient's heels elevated with pressure relief b oots or pillows under calves. Patient kept clean and dry with barrier cream a pplied as ordered. Device(s) removed and skin underneath was inspe cted. Head of Bed kept below 30 degrees unless otherw ise ordered. /ronni/ CONNOR BONILLA, RN,BSN REGISTERED NURSE Signed: 05/08/2022 23:52 May 08, 2022 06:46 NURSING INPATIENT NOTE: SAMIR PTAE I [facility] LOCAL TITLE: CHATO NURSING PROGRESS NOTE STANDARD TITLE: NURSING INPATIENT NOTE DATE OF NOTE: MAY 08, 2022@18:46 ENTRY DATE: MAY 08, 2022@18:46:41 AUTHOR: SAMIR PATE I EXP COSIGNER: URGENCY: STATUS: COMPLETED CHATO NURSING PROGRESS NOTE Has ADDENDA Nursing Shift Note Nursing care provided from [phone] Highlights from shift: Pt was agiated and restless through out this to ur. Pt niece at bedside and redricted pt. Pt was able to state his name and place but time situation pt was confused. Pt. b/p elevated but remain afibril hr 80's at rest 100's with activity. Pt remains npo. See ICCA for detailed assessment, Educa tion provided on medication/cares this shift as needed Skin Interventions performed this shift: Patient turned [id number] or as appropriate while in bed. Patient's heels elevated with pressure relief b oots or pillows under calves. Patient kept clean and dry with barrier cream a pplied as ordered. Device(s) removed and skin underneath was inspe cted. Head of Bed kept below 30 degrees unless otherw ise ordered. /ronni/ SAMIR PATE RN REGISTERED NURSE Signed: 05/08/2022 18:50 05/08/2022 ADDENDUM STATUS: COMPLETED Pt spo2 remained at 2 liters resperation 24-30 /yvette PATE RN REGISTERED NURSE Signed: 05/08/2022 18:52 May 08, 2022 05:27 TEAM NOTE: JOSE A PRINCE RN [facility] PM LOCAL TITLE: RAPID RESPONSE TEAM NOTE STANDARD TITLE: TEAM NOTE DATE OF NOTE: MAY 08, 2022@17:27 ENTRY DATE: MAY 08, 2022@17:27:31 AUTHOR: JOSE A PRINCE RN EXP COSIGNER: URGENCY: STATUS: COMPLETED RAPID RESPONSE TEAM NOTE Has ADDENDA -- Rapid Response Note (BARREL LATHE OPERATOR OUTSIDE) -- BARREL LATHE OPERATOR OUTSIDE Team Note Date: Apr Time Started: 1620 Time Ended: 1715 Total Time: 55 minutes Brown:3K Triggers called for: Respiratory rate > 25 Visibly labored breathing or respiratory distre ss Tachypneic, using abdominal accessory muscles, L S crackle bilaterally. Pt reports no pain, no c/o SOB. Haldol slightly effective for a short time. x-ray done Lasix given per MD order. Disposition: No change /yvette PRINCE ALL ROUND BUTCHER NURSE Signed: 05/08/2022 17:38 05/08/2022 ADDENDUM STATUS: COMPLETED 1900 follow up Pt appears restless to be given haldol per order . Large amount of u/o. Remains tachypneic /yvette PRINCE ALL ROUND BUTCHER NURSE Signed: 05/08/2022 19:10 05/09/2022 ADDENDUM STATUS: COMPLETED Arrive back from CT. Pt resting in bed with sitt er at bedside. Tachypneic. Denies feeling SOB. 3 LPM O2 via oxymask. Ulises Francisco MD at bedside. Labs drawn. Plan to continue with scheduled A BX and hold off on further diuresis at this time. /ronni/ RONNA CHARLES RN REGISTERED NURSE Signed: 05/09/2022 01:51 May 08, 2022 05:21 INTERNAL MEDICINE INPATIENT NOTE: NAOMI LEON [facility] PM LOCAL TITLE: MEDICINE INPT PROGRESS NOTE STANDARD TITLE: INTERNAL MEDICINE INPATIENT NOTE DATE OF NOTE: MAY 08, 2022@17:21 ENTRY DATE: MAY 08, 2022@17:21:05 AUTHOR: CODIE LEON COSIGNER: URGENCY: STATUS: COMPLETED MEDICINE INPATIENT PROGRESS NOTE HISTORY This 86 y/o with MRSA bacteremia. AMS. Developed Acute dyspnea this afternoon. MEDICATIONS (NOT A COMPLETE LIST) Active Inpatient Medications (including Supplies ): Active Inpatient Medications Status 1) ACETAMINOPHEN (INPT) TAB 1000MG PO TID FOR PA IN: MAX ACTIVE DOSE of acetaminophen is 4000mg in 24 hours 2) ATORVASTATIN TAB 5MG PO QDAY ACTIVE 3) CALCITONIN SALMON SOLN,NASAL 200UNIT/1SPRAY N A(1) ACTIVE QDAY alternating nostrils in the evening 4) DEXTROSE 50% WATER (INPT) INJ,SOLN 25-50ML IV PRN ACTIVE Instructions too long. See order details for fu ll text. 5) FINASTERIDE TAB 5MG PO QDAY ACTIVE 6) GLUCAGON (INPT) INJ 1MG/1VIAL IM PRN Instruct ions ACTIVE too long. See order details for full text. 7) GLUCOSE SOLN (INPT) LIQUID 36ML-67.5ML PO PRN ACTIVE Instructions too long. See order details for fu ll text. 8) GLUCOSE TAB,CHEWABLE 20-32GM PO PRN Instructi ons too ACTIVE long. See order details for full text. 9) HALOPERIDOL LACTATE INJ,SOLN 1MG/0.2ML IV Q4H PRN ACTIVE for delirium/agitation 10) HYDROMORPHONE INJ,SOLN 0.5MG/0.5ML IV Q8H NM N FOR ACTIVE PAIN 11) INSULIN ASPART (HUMAN) INJ LOW DOSE QHS BRANDYN ECTION ACTIVE SQ QHS Low Dose (requiring less than 40 units/d ay) BG 201-250 1 unit, BG 251-300 2 units, BG 301-3 50 3 units, BG 351-400 4 units, BS >400 5 units 12) INSULIN ASPART (HUMAN) INJ LOW DOSE MEALTIME ACTIVE CORRECTION SQ DTID Low Dose (requiring less stan n 40 units/day) BG 201-250 2 units, BG 251-300 3 uni ts, BG 301-350 4 units, BG 351-400 5 units, BG >400 6 units 13) LEVETIRACETAM INJ,SOLN LEVETIRACETAM 750 MG in 0.9% ACTIVE NACL 100 ML INFUSE OVER 15 MINUTES IV BID 14) MELATONIN CAP/TAB 3MG PO QHS ACTIVE 15) NYSTATIN CREAM,TOP THIN LAYER TOP BID PRN sk in folds ACTIVE for fungal infection/rash 16) ONDANSETRON INJ,SOLN 4MG/2ML IV Q6H PRN FOR NAUSEA - ACTIVE try second 17) ONDANSETRON TAB 4MG PO Q6H PRN FOR NAUSEA - try ACTIVE first 18) SALINE FLUSH INJ 10ML IV Q8H AFTER EACH USE, MINIMUM ACTIVE OF EVERY SHIFT. 19) SERTRALINE TAB 50MG PO QDAY ACTIVE 20) VANCOMYCIN INJ VANCOMYCIN 1000 MG in 0.9% NA CL 250 ACTIVE ML HEPARIN INCOMPAT*OVER 2 HRS* Please obtain vanco trough lab PRIOR to giving dose 05/09 AM I VPB Q12H DIET EASY/CHEW EXAM CONSTITUTIONAL: In no acute physical distress. Temperature: 100.9 F [38.3 C] (05/06/2022 22:00 ) Pulse: 101 (05/06/2022 22:00) Respirations: 16 (05/06/2022 22:00) Blood Pressure: 141/99 (05/06/2022 22:00) Pain: 99 (05/07/2022 12:14) EYES: No conjunctival injection. ENT: Nose with no drainage. RESPIRATORY: Lungs clear to auscultation. CARDIOVASCULAR: Heart is with regular rate and r hythm. GASTROINTESTINAL: Abdomen soft, nontender. Bowel sounds are present. SKIN: No jaundice. NEURO: Alert and oriented times 3, normal speech . LABORATORY AND IMAGING FINGERSTICK GLUCOSE: 330 H FINGERSTICK GLUCOSE: 231 H FINGERSTICK GLUCOSE: 276 H INR 1998: 1.2 H PROTHROMBIN TIME (04/22): 14.2 H WBC: 16.29 H RBC: 3.38 L HGB: 10.5 L HCT: 32.0 L MCV: 94.7 MCH: 31.1 MCHC: 32.8 RDW: 14.6 H PLT: 200 MPV: 11.2 H SEGS: 88.5 LYMPHS: 4.4 MONOCYTES: 5.3 BASO: 0.2 NEUTROPHIL, ABSOLUTE: 14.42 H BASO, ABSOLUTE: 0.03 MONOCYTE, ALTERNATE ABS: 0.86 LYMPHS, ALTERNATE ABS: 0.72 L I.6 IG,ABSOLUTE: 0.26 H GLUCOSE: 308 H UREA NITROGEN: 27 H CREATININE: 1.1 SODIUM: 142 POTASSIUM: 3.4 L CHLORIDE: 112 H CO2: 19 L CALCIUM: 8.2 L PROTEIN,TOTAL: 5.4 L ALBUMIN: 2.6 L BILIRUBIN,TOTAL: 0.8 MAGNESIUM: 1.9 ANION GAP: 11 ALKALINE PHOSPHATASE(37C): 98 SGOT(37C): 33 SGPT(37C): 30 CREATININE EGFR (CKD-EPI): 65 ASSESSMENT AND PLAN #Sepsis #MRSA bacteremia -started on empiric coverage, with MRSA bacterem ia, likely source -bld cx growing MRSA. Repeat cxs sent today. -MRI brain and spine when possible. Pt too alter ed today. -ID consulted, Neurology consulted, appreciate a ssistance -Holding off on LP, meningitis less likely -Continue Vanc. -monitor creat on vanc -will need YAMILETH in next couple days #Suspected seizure: -Keppra IV -Seizure precautions -Neurology consulted -MRI brain with and without contrast -hope to Quip tomorrow #Acute respiratory failure occurred afternoon 05/08 - lasix 40mg IV stat - CXR stat - shows overload - TTE tomorrow #FEN/GI: easy to chew, nursing supervision /es/ CODIE LEON MD Signed: 05/08/2022 17:24 May 08, 2022 03:23 NURSING NOTE: OMI KING [facility] PM LOCAL TITLE: TELEMETRY AND OXIMETRY CENTRALIZED NOTE STANDARD TITLE: NURSING NOTE DATE OF NOTE: MAY 08, 2022@15:23 ENTRY DATE: MAY 08, 2022@16:04:12 AUTHOR: OMI KING EXP COSIGNER: URGENCY: STATUS: COMPLETED Telemetry (Cardiac) Monitor: ROBERT Shift Telemetry initiation date/time: Apr@16: 43. Telemetry indication: Other Cardiac History: HFrEF,A Fib,Diastolic Heart Fa ilure Cardiac rhythm interpretation: A-FIB W/RVR HR:85-124 NM Int:N/A QRS Int:.092 QT Int:.313 QTc Int: Telemetry leads monitored this shift: II and V lead Alarm parameters verified this shift /es/ HONEY SOTO Industrial Education Instructor Signed: 05/08/2022 16:05 May 08, 2022 01:46 INFECTIOUS DISEASE ATTENDING NOTE: JESSE GERBER S[facility] N [facility] PM LOCAL TITLE: INFECTIOUS DISEASE INPT PROGRESS N OTE STANDARD TITLE: INFECTIOUS DISEASE ATTENDING NOT E DATE OF NOTE: MAY 08, 2022@13:46 ENTRY DATE: MAY 08, 2022@13:48:01 AUTHOR: MARIA LUISA GERBER EXP COSIGNER: JEWELS KINNEY URGENCY: STATUS: COMPLETED INFECTIOUS DISEASE INPT PROGRESS NOTE Has A DDENDA S: Agitated, trying to get out of bed. M ore interactive compared to yesterday. Able to answer most question s, but frequent incoherent speech. Says he is having pain in his back. No pain over his right elbow w here it is scraped/bandaged. O: Tmax 97.5, hr 80-100, bp 130-150/70-90s, rr 2 4, 95% aerosol O2 @2L Exam General: In moderate distress HEENT: No neck stiffness, no photophobia Cardiac: Tachycardic, normal S1/S2 Resp: CTA anteriorly, no wheezing, rhonchi, rale s Abdomen: Tender to palpation in LUQ and LLQ Skin: ~2in bruising on left posterior forearm, o ozing abrasion on right posterior elbow, bandaged. Scabbed abras ion on left medial upper thigh with no drainage or surrounding erythema. Joints: No pain in joints with palpation Neuro: Follows simple commands, answers questions, but has frequent incoherent speech WBC 16.29 Cr 1.1 Micro: 05/06 UA: Negative nitrites, 78 WBC, 11 RBC, 1 hy elise cast, no bacteria 05/06 BCx: MRSA 05/06 UCx: MRSA 05/07 BCx: GRAM POSITIVE COCCI IN PAIRS AND CLUST ERS Antimicrobials: Vanc 2g and ciprofloxacin 400mg x1 in the ED 04/19 8 Pip/Tazo 4.5g 05/06-05/07 Vanc 1g 05/06-ongoing A/P # MRSA Bacteremia Patient has been febrile, has elevated WBC (down trending), and altered mental status. 05/06 UCx grew MRSA a nd 05/06 and 05/07 BCx grew MRSA. Uncertain source of bacteremia, but likely throu gh skin tear. Spoke with Radiology about the 05/06 CT AP which was concerning for gas within the T10 vertebral body and they think the CT findings are consistent with his recent T11 f racture and lower concern for osteomyelitis/discitis. The patient has no impla nts or hardware, TTE noted to have no obvious vegetation though the sensit ivity of this study for vegetations is very limited and YAMILETH would be better study to rule out endoca rditis. Low suspicion for meningitis given lack of neck stiffness and know n MRSA bacteremia which would explain his elevated WBC, fevers, and altered me ntal status, although PROCESSING ENGINEER infection is on the differe ntial. Do not feel lumbar puncture is urgent at this time, however, if he remains altered or starts developing more focal signs of meningitis such as neck stif fness would reconsider and pursue for diagnostic purpos es. Patient is at high risk for nephrotoxicity given his age, bacteremia, and Vancomycin, therefore d aily monitoring of his renal function is recommended. Recommendations: - Consider holding off on MRI lumbar and thoraci c spine until tomorrow to see if patient is able to stay still. Patient is not a good candidate for sedation, so if he is still unable to stay still for MRI tomorrow, could consider repeat CT. - Recommend continuing Vancomycin - Daily BMP to assess renal function - BCx today, Wed, and Th for evaluation of MR SA clearance - He will likely need YAMILETH for evaluation of endo carditis (not urgent) - ID will continue to follow. Maria Luisa Gerber, MS4 Patient seen and discussed with attending, Dr. Wayne hinkle. /ronni/ MARIA LUISA GERBER MEDICAL STUDENT Signed: 05/08/2022 13:56 /ronni/ DAR KINNEY MD ID Staff Physician Cosigned: 05/08/2022 16:03 05/08/2022 ADDENDUM STATUS: COMPLETED Assuming care of the infectious disease service. Agree with note. In summary, this patient presen ts from the community with high-grade MRSA bacteremia and bacteriur ia from an unknown source. Complaining of back pain today. On exami nation, he could follow some simple commands but was quite altered. No obvious stigmata of IE . Unable to pursue an MRI today due to confusion. We did review the CT with radiology- gas seen around fracture site likely a direct sequela of the compression fract ion, less concerning for a separate infectious process. No obvious findings suggestive of an accompanying epidural abscess. Will continue IV vancomycin. Agree with plans for MRI of the brain and spine as part of evaluation for metastatic spread . Ok from ID perspective to re-attempt an MRI on 05/09 if mental sta tus allows. Anticipate need for YAMILETH (non-urgently). /ronni/ DAR KINNEY MD ID Staff Physician Signed: 05/08/2022 16:19 May 08, 2022 08:24 NURSING INPATIENT NOTE: GRADY SY [facility] LOCAL TITLE: CHATO NURSING PROGRESS NOTE STANDARD TITLE: NURSING INPATIENT NOTE DATE OF NOTE: MAY 08, 2022@08:24 ENTRY DATE: MAY 08, 2022@08:24:05 AUTHOR: GRADY SY EXP COSIGNER: URGENCY: STATUS: COMPLETED Pt A&Ox0. HR 80's, afib. BP 130-150's/80-91. Sa ts 90% on 2L O2 via NC, switched to oxymask as pt mouth breather. Mouth with dried blood, swabs done freq, pt tolerating well. Restless, talking abou t getting a cab and having to go. At times cooperative but once out of the artemio m pt swinging legs over the side rails and trying to scoot out of bed. 0700 QT=439, given 3u ss aspart insulin. Horton catheter with 1000cc pink tinged urine out, clearing to juan pablo this am. Stat lock on. Bilateral wrist restraint s on at the beginning of shift. At 4am pt almost sideways in bed due to t rying to get OOB. R ankle restraint placed and MD philip fied, Haldol 0.5mg given per new prn order. Seizure pad on. AM labs drawn. 2nd IV placed per [facility] e nurse with US guidance. See flowsheets for q1 checks and cares. Pt also plac ed on video monitor. See ICCA for detailed assessment, Education prov ided on medication/cares this shift as needed Skin Interventions performed this shift: Patient turned [id number] or as appropriate while in bed. Patient's heels elevated with pressure relief b oots or pillows under calves. Patient kept clean and dry with barrier cream a pplied as ordered. Device(s) removed and skin underneath was inspe cted. Head of Bed kept below 30 degrees unless otherw ise ordered. /ronni/ GRADY SY, ALL ROUND BUTCHER RN Signed: 05/08/2022 08:30 May 08, 2022 08:01 CLINICAL WARNING: GREGOR CASANOVAKELLEY IS [facility] AM LOCAL TITLE: INFECTION CONTROL ALERT STANDARD TITLE: CLINICAL WARNING DATE OF NOTE: MAY 08, 2022@08:01 ENTRY DATE: MAY 08, 2022@08:02:08 AUTHOR: GREGOR CASANOVA EXP COSIGNER: URGENCY: STATUS: COMPLETED Contact Precaution, Private Room or Cohort: Culture result: Methicillin Resistant Staphylococcus Aureus (MR SA) Source: blood Date: 05/07/22 /ronni/ GREGOR CASANOVA, RN REGISTERED NURSE Signed: 05/08/2022 08:02 May 08, 2022 07:00 NURSING NOTE: OMI KING [facility] LOCAL TITLE: TELEMETRY AND OXIMETRY CENTRALIZED NOTE STANDARD TITLE: NURSING NOTE DATE OF NOTE: MAY 08, 2022@07:00 ENTRY DATE: MAY 08, 2022@09:29:14 AUTHOR: OMI KING EXP COSIGNER: URGENCY: STATUS: COMPLETED Telemetry (Cardiac) Monitor: DAY Shift Telemetry initiation date/time: Apr@16: 43. Telemetry indication: Other Cardiac History: HFrEF,A Fib,Diastolic Heart Fa ilure Cardiac rhythm interpretation: A-FIB HR:70-106 NM Int:N/A QRS Int:.072 QT Int:.343 QTc Int: Telemetry leads monitored this shift: II and V lead Alarm parameters verified this shift /ronni/ HONEY SOTO Industrial Education Instructor Signed: 05/08/2022 09:30 May 08, 2022 04:57 NURSING NOTE: JORDYN DAUGHERTY [facility] LOCAL TITLE: MTAES NSG IV INSERTION AND FROYLAN Alan STANDARD TITLE: NURSING NOTE DATE OF NOTE: MAY 08, 2022@04:57 ENTRY DATE: MAY 08, 2022@04:57:40 AUTHOR: JORDYN DAUGHERTY EXP COSIGNER: URGENCY: STATUS: COMPLETED Version 2.2 Charting in accordance with [place] APPROVED ENTERPRI SE STANDARD (VAAES) ACUTE INPATIENT/REHABILITATION CHATO SING ADMISSION SCREENING, ASSESSMENT, AND STANDARDS OF CARE IV Line Insertion and Maintenance Peripheral IV Line #1: Insertion: Date/Time: Apr@04:30 Inserted by (name): Jordyn Daugherty RN Insertion Aid: Ultrasound guided Location: Left, Forearm Gauge: 20 Comment: 1.25 inch Assessment: Location: Left, Forearm Gauge: 20 Dressing Condition: Clean, dry, intact Transparent dressing Site Condition: No redness, swelling, pain Line Status: Patent/infusing Capped Flushed Positive blood return /es/ JORDYN DAUGHERTY RN REGISTERED NURSE Signed: 05/08/2022 04:59 May 08, 2022 03:57 NURSING INPATIENT NOTE: GRADY SY [facility] LOCAL TITLE: [facility] NURSING PROGRESS NOTE STANDARD TITLE: NURSING INPATIENT NOTE DATE OF NOTE: MAY 08, 2022@03:57 ENTRY DATE: MAY 08, 2022@03:57:40 AUTHOR: GRADY SY COSIGNER: URGENCY: STATUS: COMPLETED Medical Use Restraint Assessment. I. Bilateral/soft wrist restraints A. Patient is at imminent risk for self-harm by disrupting medical treatment as demonstated by the following: attempting to remove a catheter/line/tube, inabi lity to follow or remember instructions, agitation, altered cognitive state due to anesthesia, medications, sleep deprivation or disease proces s, other: recent fall B. The Patient has one or more of the following treatment modalities in his/her treatment plan: peripheral or central intravenous lines, other c atheters such as horton, nasogastric or gastric tubes. II. The following alternate interventions were a ttempted prior to initiating restraints: attempts to reorient, reassure, and re-explain p urpose of device/tube, moved patient closer to nursing station, reduced stimu li by dimming lights, decreasing noise or limiting visitors, created b arrieer to pulling out IV, tubes or dressing by applying kerlix, abdoninal binder, etc. III. Family Involvement/Education-pts family mem bers here with pt on 05/07, visiting, aware of bilateral soft restrains Q1 hour checks done and documented. /ronni/ GRADY SY ALL ROUND BUTCHER RN Signed: 05/08/2022 04:03 May 07, 2022 11:56 NURSING SECLUSION RESTRAINT NOTE: SAL CAN [facility] LOCAL TITLE: RESTRAINT DOCUMENTATION STANDARD TITLE: NURSING SECLUSION RESTRAINT NOTE DATE OF NOTE: MAY 07, 2022@23:56 ENTRY DATE: MAY 07, 2022@23:56:42 AUTHOR: JODI CAN EXP COSIGNER: URGENCY: STATUS: COMPLETED Medical Use Restraint Assessment Restraint(s) Inititated: Date and Time: 05/07/2022 2030 I. A. Patient is at imminent risk for self-harm by disrupting medical treatment as demonstated by the following: attempting to remove a catheter/line/tube, inab ility to follow or remember instructions, agitation, altered cognitive stat e due to anesthesia, medications, sleep deprivation or disease proce ss B. The Patient has one or more of the following treatment modalities in his/her treatment plan: peripheral or central intravenous lines, other catheters such as horton, nasogastric or gastric tubes II. The following alternate interventions were attempted prior to initiating restraints: attempts to reorient, reassure, and re-explain purpose of device/tube, request that a family member stay with patient, reduced stimuli by dimming lights, decreasing noise or limiting visitors, created barrieer to pulling out IV, tubes or dressing by applying kerlix, a bdoninal binder, etc., assured adequate pain relief III. Family Involvement/Education rationale and criteria for restraint applicatio n explained to family, patient monitoring requirements explained /yvette CAN RN RN Signed: 05/07/2022 23:57 May 07, 2022 11:52 NURSING INPATIENT NOTE: JODI CAN [facility] LOCAL TITLE: CHATO NURSING PROGRESS NOTE STANDARD TITLE: NURSING INPATIENT NOTE DATE OF NOTE: MAY 07, 2022@23:52 ENTRY DATE: MAY 07, 2022@23:52:26 AUTHOR: JODI CAN EXP COSIGNER: URGENCY: STATUS: COMPLETED Nursing Shift Note Nursing care provided from [id number] Highlights from shift: Pt alert to person only, arrived with family wh o states pt usually lives independently and is usually aox4. Pt had episod e of coughing/difficulty swallowing foods with dinner , AQUATIC LIFE LABORER consult placed, pt NPO - all oral medications held. Pt did not eat anything else for dinner, 2 100 aspart held. Pt placed in soft restraints on wrists at 2029 due to restles sness/pulling at horton (red/pink urine)/IV sites/scratching at arms, si milar behaviors from ER this AM. Pt continues to be responsive to name, slurr ed speech is baseline at this time. Abx continue via IV. P t is most comfortable sitting in reclining position d/t chronic low back pain. Will continue to hunter tor. See ICCA for detailed assessment, Educa tion provided on medication/cares this shift as needed Skin Interventions performed this shift: Patient turned [id number] or as appropriate while in bed. Patient's heels elevated with pressure relief b oots or pillows under calves. Patient kept clean and dry with barrier cream a pplied as ordered. Device(s) removed and skin underneath was inspe cted. Head of Bed kept below 30 degrees unless otherw ise ordered. /yvette CAN RN RN Signed: 05/07/2022 23:56 May 07, 2022 11:35 NURSING NOTE: LEOBARDO AGUILAR V A [facility] LOCAL TITLE: TELEMETRY AND OXIMETRY CENTRALIZED NOTE STANDARD TITLE: NURSING NOTE DATE OF NOTE: MAY 07, 2022@23:35 ENTRY DATE: MAY 08, 2022@05:13:50 AUTHOR: LEOBARDO AGUILAR EXP COSIGNER: URGENCY: STATUS: COMPLETED Telemetry (Cardiac) Monitor: Heel Slugger Telemetry initiation date/time: Apr@16: 45. Telemetry indication: Unknown Cardiac History: HFrEF,A Fib,Diastolic Heart Fa ilure Cardiac rhythm interpretation: Afib HR:75 NM Int: QRS Int:.085 QT Int: QTc Int: Telemetry leads monitored this shift: II and V lead Alarm parameters verified this shift /es/ LEOBARDO AGUILAR [facility] Signed: 05/08/2022 05:14 May 07, 2022 04:54 INFECTIOUS DISEASE CONSULT: [facility] LOCAL TITLE: INFECTIOUS DISEASE CONSULT STANDARD TITLE: INFECTIOUS DISEASE CONSULT DATE OF NOTE: MAY 07, 2022@16:54 ENTRY DATE: MAY 07, 2022@16:54:32 AUTHOR: MARIA LUISA GERBER EXP COSIGNER: RIVKA NGUYEN URGENCY: STATUS: COMPLETED INFECTIOUS DISEASE CONSULT Has ADDENDA Summary: 86yo male with past history significant for T2DM, HFpEF, CKD3, chronic A fib, E. coli bacteremia secondary to urinary outflow obstruction from BPH in January 2021, TURP at [facility] February 2021 who presented f [facility] d/t reports of persistent fever and back pa in with course c/b seizure and transferred to the [place] ER for further workup and management. HPI: Obtained history from caregiver Wade as patient unable to provide history. Patient was acting confused around 04/27 and then fell on 04/29. He went to [facility] and had negative cultures an d blood work. He had a horton placed there on 05/01. He cooney s not have a chronic indwelling catheter prior, but has history of UTIs in past. Pt was discharged on 05/02. On the evening of 05/02, patient reportedly had a seizure. On 05/04 he had a fever despite taking scheduled Tylenol and had tr emors. On 05/05 he continued to have fevers and also had incoherent speech and co nfusion. He has no implants or hardware. Patient has chronic back pain from spinal stenosis, but had a fall in mid-January with T11 fracture. Wade reports that he was pain-free at the end of March, but was complaining of back pain last week. Emergency Department (ED) Course: VS notable for fever to 101.2 on arrival, HR 84, RR 22, BP 117/56 Labs notable for procal 22.2 9, WBC 18.82, Bicarb 17, Mg 1.5, Troponin 0.035, INR 2.5, Hgb 11.6 VBG w/ pH 7.4, bicarb 18.3, POC lactate 3.62 UA w/ 2+ blood, 78 WBC's, no bacteria seen Horton was placed CT head, C-spine, Abd/pelvis were obtained; show ed the T10 compression deformity w/ evidence of surrounding gas, unable to r/o osteo or discitis Given: - 1L LR - Vanc + ciprofloxacin x1 Past Medical History: 1. Type 2 diabetes mellitus (SNOMED CT [id number]) 2. OBESITY, UNSP 3. Psoriasis * 4. Social and personal history finding - Lives alone. Has brother in [place]. Friends felipe breaux. 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 5. History of adenomatous polyp of colon - Last c-scope 05/09/15 at [place]. Two small polyp s. - 5 year follow up if appropriate. 6. Elevated PSA - follows with urology at [facility] - with BPH on terazosin - February 2021: TURP at [facility] 7. Chronic kidney disease stage 3 8. Diastolic heart failure - w/ HTN and dyslipidemia 9. Chronic atrial fibrillation - metoprolol and rivaroxaban 10. history of hospitalization - January 2021: Bacteremia secondary to urinary ou tflow obstruction from BPH - underwent a TURP at [facility] February 2021 11. corns and calluses - followed by podiatry in the community in [facility] 12. Gout - on allopurinol Allergies: SIMVASTATIN Signs/symptoms: SKIN REACTION CEPHALEXIN Signs/symptoms: RASH Past Surgical History: Reviewed. Social History: - Per Wade, no tobacco, alcohol or drug use. - Has been living at [place] in [facility] since back injury a couple months ago Vitals Tmax 101.2, hr 101, 94% O2 on 1L NC, 141/99, rr 16 Exam: General: Confused, in moderate distress Cardiac: tachycardic, normal S1/S2 Resp: CTA anteriorly, no wheezing, rhonchi, rale s Neuro: Oriented x1, follows commands Labs: WBC 20.25 Hgb 11.2 Plt 190 Cr 1.2 AST 9 ALT 19 Lactic acid 2.7 MRSA nares: pos CRP 392.4 Micro: 05/06 UA: Negative nitrites, 78 WBC, 11 RBC, 1 hy elise cast, no bacteria 05/06 BCx: GRAM POSITIVE COCCI IN PAIRS AND CLUST ERS 05/06 BCx: Presumptive STAPH AUREUS METHICILLIN R ESISTANT(MRSA) by RT-PCR Recovered from Anaerobic bottle 05/06 UCx: >100,000 STAPHYLOCOCCUS AUREUS 05/07 BCx: Pending Antimicrobials: Vanc 2g and ciprofloxacin 400mg x1 in the ED 04/19 8 Pip/Tazo 4.5g 05/06-05/07 Vanc 1g 05/06-ongoing Imagin/19 TTE Interpretation Summary A complete two-dimensional transthoracic echocar diogram (77451) was performed with contrast ([id number]). Very poor imaging quality. Grossly, the left carole tricular systolic function is probably grossly low normal. The study was inade quatge for regional wall motion assessment. No obvious vegetation though the sensitivity of this study for vegetations is very limited. 05/07 CT Head Impression: 1. Mild small vessel ischemia. This is relative ly stable. 2. 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 05/06 CXR Impression: Cardiac silhouette is mildly enlarged. There is mild pulmonary venous congestion. No definite pleural effusion . No pneumothorax seen. 05/06 CT AP Impression: -The exam is limited by motion [...] with overlying ate lectasis. -Ancillary findings, above. 05/06 CT Head Impression: -Significantly limited exam from motion artifac t. -Given this limitation, no acute intracranial C T findings. 05/06 CT Cervical spine Impression: -Motion artifact limits the exam. -Given this limitation, no acute osseous abnorm ality. -Moderate multilevel degenerative change throug hout the cervical spine. -Ancillary findings, above. A/P # MRSA Bacteremia Patient has been febrile, merino s elevated WBC, and altered mental status. BCx with presumptive MRSA and UCx wit h S. aureus. Uncertain source of bacteremia at this time. Patient has no implants or hardware, TTE n oted to have no obvious vegetation though the sensit ivity of this study for vegetations is very limited. Low suspicion for meningitis given lack of neck stiffness and known MRSA bacteremia which would explain his elevated WBC, fevers, and altered mental status. Recommendations: -Continue Vancomycin -Would consider MRI thoracic/lumber spin e to fully image spine to evaluate for disciitis, but okay to hold off on further imagi ng if patient has already had MRI thoracic spine performed today -Repeat BCx in AM Patient seen and discussed with attending, Dr. Rui michaud. Maria Luisa Gerber MS4 /ronni/ MARIA LUISA GERBER MEDICAL STUDENT Signed: 05/07/2022 17:03 /ronni/ RIVKA NGUYEN MD CHIEF, INFECTIOUS DISEASE Cosigned: 05/07/2022 17:27 05/07/2022 ADDENDUM STATUS: COMPLETED Assessment/plan: 86-year-old man with altered mental status, feve r, and MRSA bacteremia. Patient seen and examined, with history obtained from his niece who is in the room. Overall agree this is a very ill man, with staph bacteremia of unclear source as his main issue. Agree that need to thi nk about PROCESSING ENGINEER infection in the setting of altered mental status and infecti on, but frankly suspect much of this is due to his bacteremia/sepsis, versus a infection localized within his PROCESSING ENGINEER. Do not feel strongly that obtaining a l umbar puncture tonight is necessary-it will not change agent, as we w ill certainly be giving him vancomycin for his bacteremia. If he remains alt ered or starts developing more focal signs of meningitis such as neck stif fness would reconsider and pursue for diagnostic purposes. Overall, likelih ood of altered mental status from bacteremia is far higher than meningitis, w hich is relatively rare in general, and particularly rare to be caused by s taph aureus, outside of surgical complications. Recommendations: -Vancomycin for now -Agree with follow-up blood cultures to document clearance -Agree with MRI of L and T-spine to assess for m etastatic spread given family report of pain and his known compression fractur e of T11 -Would not pursue LP for now -Agree with transthoracic echocardiography; may eventually need YAMILETH Infectious diseases will follow; Dr. Donaldo urbano the service tomorrow History of present illness; Patient with confusion and altered mental status since 04/27, with a subsequent fall 04/29. Was briefly hospitalized in the [facility] on 05/01, with a report of unremarkable blood work that include d blood cultures. He was discharged on 05/02, and reportedly had a seizure that day-unclear how this was documented. Fever was noted over the next se veral days as well as garbled speech and worsening confusion. Family s ays that he was complaining of back pain in the last week, and that he had a fall this summer resulting in a T11 compression fracture. Currently patient is not able to offer meaningful history, niece provided the history a cesario. Past medical history reviewed: -Diabetes, type II Obesity Psoriasis Colon polyps Stage III chronic kidney disease Diastolic heart failure Atrial fibrillation BPH resulting in TURP in February 2021, and 1 prior episode of urosepsis Gout Review of systems is unremarkable Social history does not use tobacco, or alcohol Lives in a assisted in [place] [facility] months. 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 Medications are reviewed; allergies noted to sim vastatin and cephalexin (cephalexin reaction: Rash) Physical exam temp 100.9, pulse 101, respiration s 16, blood pressure 141/99 Somnolent man, eyes closed, moaning in parts of exam Passive flexion and extension of the neck does n ot elicit any pain Cardiac exam is unremarkable Lungs seem clear anteriorly Abdomen with tenderness to palpation, soft, no h epatomegaly noted, more tender with palpation over the flanks bilaterall y Extremities are warm, well-perfused, there are n o swollen joints Neurologically patient is moving all extremities , non-vocal, not responsive to voice or commands Labs and imaging reviewed. Notable for white cou nt of 18.8, blood cultures that are presumptively positive for MRSA, a lact ate of 3, and a procalcitonin of 22. Head CT shows only mild small vessel isch emia and stable chronic sinusitis. Assessment and plan-see above /ronni/ RIVKA NGUYEN MD CHIEF, INFECTIOUS DISEASE Signed: 05/07/2022 17:39 May 07, 2022 04:45 NURSING NOTE: WINTER DIAL [facility] PM LOCAL TITLE: TELEMETRY AND OXIMETRY CENTRALIZED NOTE STANDARD TITLE: NURSING NOTE DATE OF NOTE: MAY 07, 2022@16:45 ENTRY DATE: MAY 07, 2022@18:27:43 AUTHOR: WINTER DIAL EXP COSIGNER: URGENCY: STATUS: COMPLETED Telemetry (Cardiac) Monitor: Evening Shift Telemetry initiation date/time: Apr@16: 43. Telemetry indication: Other Cardiac History: HFrEF,A Fib,Diastolic Heart Fa ilure Cardiac rhythm interpretation: A FIB HR:88 NM Int:N/A QRS Int:.072 QT Int:.338 QTc Int:.41 Telemetry leads monitored this shift: II and V lead Alarm parameters verified this shift /ronni/ WINTER DIAL ADVANCEDMSA Signed: 05/07/2022 18:34 May 07, 2022 04:27 NURSING TRANSFER SUMMARIZATION NOTE: JUAN ANTONIO SARAVIA [facility] LOCAL TITLE: [facility] NURSING TRANSFER SUMMARY HUDSON JEREZ STANDARD TITLE: NURSING TRANSFER SUMMARIZATION N OTE DATE OF NOTE: MAY 07, 2022@16:27 ENTRY DATE: MAY 07, 2022@16:28:11 AUTHOR: JUAN ANTONIO SARAVIA EXP COSIGNER: URGENCY: STATUS: COMPLETED NURSING TRANSFER SUMMARY Sending RN Age: 86 Height: Unavailable (04/30/2022 07:57) Admit Weight: Todays Weight: Code Status: DNR MRSA OR VRE: MRSA Admission Date: 05/06/22 18:30 Transfer Date: Apr To [facility]/Unit: Diagnosis: History: Vital Signs: See ICCA for vital signs. Allergies: SIMVASTATIN (Feb 29, 2004) CEPHALEXIN (Mar 01, 2004) Activities of Daily Living Status: Currently To helen Cares High Risk Falls Precautions: Yes WANDERING RISK Patient is high risk for wandering if one or mo re of the following pertain: No risk identified. SUICIDE RISK: Was the patient identified as being at imminent or hightened risk for suicide during this [facility] based on trisha cide risk assessment: No Continue to assess patient for suicide risk as deemed clinically appropriate and document in nursing shift note. Transfers with assistance of 2 or more. Private room required (Behavior, Withdrawl, Wan violeta, Special, etc.): Yes, specify: MRSA Respiratory Status: WNL Cardiovascular/Pulses : WNL Neurological/Mentation/Safety Status: Confusion A/O x 2, person and place Special Needs: None Additional tubes, lines, drains, etc: Horton cat heter /GI: Horton Date Horton Inserted: Not applicable Current Diet: EASY/CHEW Last BM: DAVON CURRENT SKIN ASSESSMENT Skin Color: Usual for ethnicity Skin Temperature: Warm Skin Moisture: Normal Skin Turgor: Elastic (normal/immediate) SKIN PROBLEMS Abrasion: Location(s): general, ble Bruising: Location(s): BUE INTERVENTIONS: New or changed pressure ulcer/injury interventi ons or medical condition. Education: Provide patient/caregiver education regarding c auses and prevention of pressure ulcers/injuries. Teach patient/caregiver importance of changing position frequently for pressure ulcer/injury prevention. Pressure-Redistribution measures: Apply heel/elbow pads Elevate heels using pillows, foam blocks, or of floading boots Encourage small, frequent position changes Individualized repositioning while out of bed t o chair/wheelchair Turn and reposition every two hours while in be d Use pillows (or other pressure relieving device s) to separate pressure areas Maximize mobilization: Encourage activity as tolerated Manage moisture: Apply external collection device (condom cathet er, etc.) Apply protective barrier ointment Maintain clean and dry skin Manage nutrition: Encourage eating and assist with meals Monitor fluid/food intake Offer liquids every two hours when turning shakir ent or as needed Provide tray set-up and other assistance as nee ded Reduce friction and shear: Elevate head of bed for meals, then lower withi n one hour after eating (unless contraindicated) IV Access: Peripheral Does the patient have any transdermal patches p resent? No If patches present, please document location/s and type/s: Last Pain Medication: 1200 Any outstanding orders/medications? Yes All PRN Effectiveness cleared? Yes !!OUTSTANDIN G PRN EFFECTIVENESS MUST BE ADDRESSED PRIOR TO TRANSFER OF THE PATIENT!! ITP goals updated/resolved on transfer: Yes Are their personal belongings transferred with the patient? Yes Additional Comments or Issues: Patient was take n off restraints at 1000. Report called to: MOMO /ronni/ BROOKS MELCHOR RN Signed: 05/07/2022 16:39 May 07, 2022 04:13 NEUROLOGY CONSULT: KENNETH VALENTINO [facility] PM LOCAL TITLE: EEG NEUROLOGY CONSULT STANDARD TITLE: NEUROLOGY CONSULT DATE OF NOTE: MAY 07, 2022@16:13 ENTRY DATE: MAY 07, 2022@16:13:51 AUTHOR: KENNETH VALENTINO EXP COSIGNER: URGENCY: STATUS: COMPLETED EEG# [id number] PROCEDURE DATE: May 07, 2022 CLINICAL HISTORY: 86-year-old with witnesses willa cruz. RECORDING CONDITIONS: Cbdmr-ayo-mulett video EEG recording performed during wakefulness. Considerable movement artifact was present. EEG DESCRIPTION: Background rhythm in the quiet, awake state consisted of a low amplitude posterior dominant rhythm of 5 to 6 Hz superimposed on a more diffuse irregular low amplitude delta. The rhythm was sy mmetrical and attenuated as a normal response to eye opening. An electroclinical sleep state was not recorded. ACTIVATIONS: Hyperventilatio n was not performed due to medical condition. Photic stimulation elicited no EEG abnormalities. PATIENT EVENTS: None EKG CHANNEL: Irregular rhythm [facility] EEG CLASSIFICATION: Abnormal II (awake) Slow background CLINICAL INTERPRETATION: 1. This EEG indicates a moderately severe degree of diffuse nonspecific encephalopathy. 2. No focal, lateralizing, epileptiform potentia ls or seizures were seen. Kenneth Valentino MD Diplomate ABPN: Neurology, Epileptology and Clin ical Neurophysiology /ronni/ KENNETH VALENTINO MD STAFF NEUROLOGIST Signed: 05/07/2022 16:17 May 07, 2022 11:38 ATTENDING ADMISSION EVALUATION NOTE: BETO WOOD [facility] LOCAL TITLE: MEDICINE ADMISSION STAFF NOTE STANDARD TITLE: ATTENDING ADMISSION EVALUATION N OTE DATE OF NOTE: MAY 07, 2022@11:38 ENTRY DATE: MAY 07, 2022@11:39:22 AUTHOR: BETO AYALA EXP COSIGNER: URGENCY: STATUS: COMPLETED MEDICINE ADMISSION STAFF NOTE Has ADDENDA * INPATIENT MEDICINE STAFF ATTENDING NOTE Patient seen and examined by me. Work up and Treatment Plan: The H&P was presente d to me by the resident/medical student. I have verified pertin ent findings and discussed the assessment, goals, diagnostic eval uation and treatment plan with the resident/medical student. Summary noted below. Plan of care was discussed with the patient and/ or family (risks/benefits/alternatives) REASON FOR ADMISSION: sepsis PERTINENT HISTORY: A 86 year old MAL 86 y/o male with PMHx T2DM, HF pEF, CKD3, BPH, h/o urosepsis 09/20 horton obstruction s/p TURP 02/2021 at [place], HTN, HLD, chronic Afib, and gout who presented from [place] to [facility] d/t reports of persistent fever and back pain with c ourse c/b seizure and transferred to the [facility] for further workup and management. Patient has had numerous enc ounters with medical services this year, he was most recently at an [facility] and going to be discharged [facility] on 05/04. However he had a witnessed seizure and worsen ing mentation. His son Wade advocated for patient to be sent to [facility]. Other history is as detaile d in H&P. Patient admitted for sepsis, presumed discitis v s uroseptis, now bacteremic. Overnight did okay but continues to be somnolent . I spoke to both his HCAs Florinda sheikh and Wade, they both acknowledge patient is quite ill. Patient is oreinted x 3 but falls asleep quickly . Does not follow much of commands. History limited due to this. PERTINENT EXAM: Last VS: B/P:141/99 (05/06/2022 22:00) HR:101 (05/06/2022 22:00) R:16 (05/06/2022 22:00) T:100.9 F [38.3 C] (05/06/2022 22:00) Physical Findings: General: snoring, wakes up to verbal stimuli int ermittently HEENT: atraumatic CV: tachy Pulm: clear apices Abdomen: no ttp Back: some mild ttp over spine (t10?), no other pain noted on exam Neuro: oriented x 2, has clonus in ue an d le for me, unable to follow commands LABORATORY/X-RAY/OTHER PERTINENT DATA: Today's Lab Results: MAY 07, 2022 FINGERSTICK GLUCOSE: 352 H WBC: 20.25 H RBC: 3.54 L HGB: 11.2 L HCT: 33.6 L MCV: 94.9 MCH: 31.6 MCHC: 33.3 RDW: 14.4 PLT: 190 MPV: 10.3 SEGS: 93.0 LYMPHS: 4.0 MONOCYTES: 2.5 META: 0.5 NEUTROPHIL, ABSOLUTE: 18.83 H MONOCYTE, ALTERNATE ABS: 0.51 LYMPHS, ALTERNATE ABS: 0.81 L METAMYELOCYTE, ABSOLUTE: 0.10 RBC MORPHOLOGY: NORMOCYTIC, NORMOCHROMIC GLUCOSE: 314 H UREA NITROGEN: 25 CREATININE: 1.2 SODIUM: 140 POTASSIUM: 3.9 CHLORIDE: 107 CO2: 21 L CALCIUM: 8.8 PROTEIN,TOTAL: 5.9 L ALBUMIN: 3.0 L BILIRUBIN,TOTAL: 1.1 MAGNESIUM: 2.2 ANION GAP: 12 ALKALINE PHOSPHATASE(37C): 94 SGOT(37C): 9 SGPT(37C): 19 CREATININE EGFR (CKD-EPI): 59 L LACTIC ACID: 2.7 H ASSESSMENT & TREATMENT PLAN / RECOMMENDATIONS: #Sepsis #Suspected meningigits: very high concern clinically for suspected meningitis on exam. Neurology agrees. -started on empiric coverage, with MRSA bacterem ia, likely source -bld cx x 1 ordered -MRI spine to rule out abscess to ensure that do es not interfere with the LP -ID consulted, Neurology consulted, appreciate a ssistance -IR consulted for LP, likely will occur tomorrow as patient had rivaroxaban in system -PROCESSING ENGINEER dosing vanc, bactrim and moxifloxac in, will deescalate as able, per ID no need for acyclovir currently #Suspected seizure: -Keppra IV -Seizure precautions -Neurology consulted -MRI brain with and without contrast FEN/GI: easy to chew, nursing supervision Dipso: I spoke to both Janet and Wade (HCA) that patient has guarded prognosis and high mortality risk with GPC meningititis. They verablized understanding but believe patient is tough and will make it. /es/ BETO AYALA MD PHYSICIAN Signed: 05/07/2022 12:23 05/07/2022 ADDENDUM STATUS: COMPLETED Addendumn: I discussed with family patient has GPC bacterem ia with unknown source (maybe urinary, maybe discitis? maybe meningitis) which coupled with seizure and his current mental status is guarded prognosis. /ronni/ BETO AYALA MD PHYSICIAN Signed: 05/07/2022 16:40 May 07, 2022 11:29 NURSING INPATIENT NOTE: SHANI OTT [facility] LOCAL TITLE: CHATO NURSING PROGRESS NOTE STANDARD TITLE: NURSING INPATIENT NOTE DATE OF NOTE: MAY 07, 2022@11:29 ENTRY DATE: MAY 07, 2022@11:29:09 AUTHOR: SHANI OTT EXP COSIGNER: URGENCY: STATUS: COMPLETED SUBJECT: Perflutren Administration Note CONTRAINDICATIONS: Does patient have allergy or known hypersensitiv ity to Perflutren microspheres? No Does Patient have allergy or known hypersensitiv ity to polyethylene glycol (PEG) or products that contain PEG such a s colonoscopy bowel preparations and laxatives? No Patient was given an explanation of the indicati ons and potential side effects, patient indicates readiness to learn, v erbalizes understanding and consents to procedure. Yes Comment: BASELINE VITAL SIGNS: BP:151/98 HR: 98 Rhythm: O2 Sats: 95 RR: 22 Pain: No 0 Comment: IV ACCESS: Present Comment: 1.5ML ACTIVATED PERFLUTREN DILUTED IN 8.5ML OF 0 .9 NS SYRINGE: Amount administered IV: 0.5MLs Time administered: ADVERSE REACTIONS: Yes Comment: Action Taken: Not Applicable Comment: POST STUDY VITAL SIGNS: BP:148/96 HR: 96 Rhythm: O2 Sats: 94 RR: 20 Pain: 0 No Comment: IV REMOVED: No Comment: /ronni/ SHANI OTTFOUNDER AND CHIEF TECHNICAL OFFICER RN, BSN Signed: 05/07/2022 11:30 May 07, 2022 10:43 NURSING SECLUSION RESTRAINT NOTE: PANDA SARAVIA [facility] AM LOCAL TITLE: RESTRAINT DOCUMENTATION JACKI STANDARD TITLE: NURSING SECLUSION RESTRAINT NOTE DATE OF NOTE: MAY 07, 2022@10:43 ENTRY DATE: MAY 07, 2022@10:44:14 AUTHOR: JUAN ANTONIO SARAVIA EXP COSIGNER: URGENCY: STATUS: COMPLETED Medical Use Restraint Assessment Restraint(s) Inititated: Date and Time: 05/07/2022 I. A. Patient is at imminent risk for self-harm by disrupting medical treatment as demonstated by the following: attempting to remove a catheter/line/tube, inab ility to follow or remember instructions, altered cognitive state due to an esthesia, medications, sleep deprivation or disease process, inability to ma intain correct body alignment for a treatment or procedure B. The Patient has one or more of the following treatment modalities in his/her treatment plan: peripheral or central intravenous lines, other catheters such as horton, nasogastric or gastric tubes II. The following alternate interventions were attempted prior to initiating restraints: attempts to reorient, reassure, and re-explain purpose of device/tube, moved patient closer to nursing station, reduce d stimuli by dimming lights, decreasing noise or limiting visitors, created barrieer to pulling out IV, tubes or dressing by applying kerlix, abdoninal binder, etc., offered toileting frequently, ensuring horton is patent, assured adequate pain relief, removed tubes, lines, etc as soon as po ssible III. Family Involvement/Education rationale and criteria for restraint applicatio n explained to family, patient monitoring requirements explained Family at bedside /es/ BROOKS MELCHOR RN Signed: 05/07/2022 10:47 May 07, 2022 10:17 LIFE-SUSTAINING TREATMENT PLAN: Rafael AYALA [facility] TITLE: LIFE-SUSTAINING TREATMENT STANDARD TITLE: LIFE-SUSTAINING TREATMENT PLAN DATE OF NOTE: MAY 07, 2022@10:17 ENTRY DATE: MAY 07, 2022@10:17:43 AUTHOR: BETO AYALA EXP COSIGNER: URGENCY: STATUS: COMPLETED LIFE-SUSTAINING TREATMENT (LST) DECISION-MAKING CAPACITY TO MAKE DECISIONS ABOUT LIFE_SUSTAINING TREATMENTS Patient does not have capacity to make decisions about LSTs ;LST plan written based on discussion with surrogate. HEALTH CARE SURROGATE'S NAME AND CONTACT INFORMA TION Health Care Agent named in Durable Power of Att orney for Health Care Name and Contact Information: spoke to both Florinda sheikh and Wade (named in advanced directive) 'S VALUES AND GOALS OF CARE - Goals as reported by the patient (or surrogat e): to be comfortable LIFE-SUSTAINING TREATMENT PLAN * In the event of cardiopulmonary arrest: DNAR/DNR: Do not attempt CPR. Other Life-Sustaining Treatments: Mechanical Ventilation - In the event of respir atory distress or failure when the patient HAS A PULSE, the patient: Mechanical ventilation discussed and patient do es not want to limit at this time. INFORMED CONSENT Patient's surrogate gave oral informed consent for life-sustaining treatment plan. Surrogate's name and contact information: Wade and Janet (listed in advanced directive) PRESENT FOR GOALS OF CARE CONVERSATION Name(s) and contact information: Janet Armstrong, myself and patient NAME OF SUPERVISING PRACTITIONER No Attending/supervising practitioner required. /ronni/ BETO AYALA MD PHYSICIAN Signed: 05/07/2022 10:19 May 07, 2022 08:07 WOUND CARE CONSULT: KRYSTINA DOS SANTOS [facility] TITLE: WOC NURSE CONSULT STANDARD TITLE: WOUND CARE CONSULT DATE OF NOTE: MAY 07, 2022@08:07 ENTRY DATE: MAY 07, 2022@08:07:28 AUTHOR: KRYSTINA DOS SANTOS COSIGNER: URGENCY: STATUS: COMPLETED WOUND OSTOMY CONTINENCE (WOC) NURSING ASSESSMENT - ECONSULT REASON FOR CONSULT: right elbow, flap of skin is missing Pa betsy is boarder status in ED room 16 CHART REVIEW: - On a hospital bed - Horton in place - Per nursing notes Open ar ea noted on intergluteal cleft, WOC consult placed. Bilateral heel and sacral Me pilex applied. Right elbow skin tear noted, Mepilex applied. Bilateral groin rash noted, nystatin cr eam applied. - No admission Michael Open area to gluteal cleft is likely ITD fro m moisture on opposing skin folds, appropriately treated with use of Aloe Ve sta Right elbow skin tear ca n be treated per WOCN Reference Book (located on all wards) with a hydrosheet dressing. Fungal groin rash being treated appropriatel y with antifungal cream. ADMISSION DATE & DIAGNOSIS: 05/06/22 -- per Emergency Dept Note: 86-year-old gentleman who arrives from assisted via EMS with re port of fever, back pain, and hypeglycemia. Patient is reportedly on scheduled a cetaminophen at assisted. He is febrile despite acetaminophen. Regarding back pain, he was noted to have known compression fractures in thoracic spine, actively on fentanyl, received fentanyl in route, and per family reportedly merino d follow-up several days ago prompting admission to [facility] where chaz meyer was noted to be confused with seizure noted. PROBLEM LIST: 1. Type 2 diabetes mellitus (SNOMED CT [id number] ) 2. OBESITY, UNSP 3. Psoriasis * 4. Social and personal history finding 5. History of adenomatous polyp of colon 6. Elevated PSA 7. Chronic kidney disease stage 3 8. Diastolic heart failure 9. Chronic atrial fibrillation 10. history of hospitalization 11. corns and calluses 12. Gout LABS: WBC 20.25 H (05/07/22) C-REACTIVE PROTEIN 392.40 H (05/06/22) HEMOGLOBIN A1C 8.2 H (02/02/2022) MOBILITY: Ax1-2 NUTRUITION: ALBUMIN 3.0 L (05/07/22) TRANSFERS: Ax1-2 BOWEL/BLADDER STATUS: Horton, bowel status unknown DEVICES: IV, Horton MATTRESS/BED: Standard hospital mattress -- Custom Care is meghan ropriate SITTING SURFACES: Will recommend a Curve Cushion WOUND TREATMENT/INTERVENTIONS: - Moist wound healing - Pressure injury prevention - Protection from moisture SKIN TEAR: - Cleanse wound with WOUND CLEANSER and dry gent ly with COVER SPONGES - Attempt to realign epidermal flap if one remai ns - Apply a CARRADRES HYDROGEL SHEET - Shivam with arrow in what direction to remove de rma gel to avoid pulling of epidermis flap with removal - Secure with BANDNET - Change SATURDAY and SATURDAY If no improvement then re consult WOC team, if improved continue with dressing instruction and change Sat and and d/c when healed. COCCYX/SACRUM/BUTTOCKS PREVENTION ORDERS: - Position change q2h hours - SACRAL MEPILEX for protection, apply and confo rm into crease. - Change DAILY and PRN if soiled or unsalvageab le. - CURVE CUSHION for chair when OOB, limit chair sitting to 2 hours - Melanie-cares - BID and PRN - ALOE VESTA to buttocks, gluteal cleft and groi n (after application of medicated cream) - BID and PRN - Avoid briefs in bed, trial alt methods to contain urine or stool (condom cath, penis pouch, scheduled toileting) HEEL PROTECTION: - HEEL MEPILEX for protection. - Change Mepilex DAILY and PRN if soiled or uns alvageable. - Float heels with a HEEL PLANT GENERAL MANAGER while in bed - ROOKE BOOTS (or some other type of pro tective footwear) to BLE's when OOB -- also, while in bed if refuses heel manag er. PRESSURE INJURY PREVENTION INTERVENTIONS IMPLEME NTED: 1) Daily skin inspection 2) Repositioning in Bed Q2 Hours a) As appropriate to prevent pressure to bony p rominences. 3) Elevate heels off a) Using pillows or boots 4) Head of Bed<30 degrees (EXCEPT VAD protector or tube feeds) 5) Sitting Precautions a) Encourage pressure relief to bony prominence s and use of cushions as appropriate. b)Curve Cushion for WC 6) Mobility a) Encourage safe ambulation with appropriate a ssistive devices 7) Moisture management a) Keep skin clean and dry using skin barrier f or protection and ultrasorb chux for absorption. Use containment devices as needed. 8) Device safety: (oxygen tubing, other respirat ory devices, c-collars, TLSO braces, splints, BERE wraps, etc. a) Inspect skin under ALL devices every shift 9) Patient education a) Provide patient/family education related to pressure ulcer prevention. FOLLOW UP: No further follow up from Wound Service indicated if Pressure Ulcer Prevention Interventions and wound care orders are in place . Please reconsult for non- healing wounds or any other additional problems or concerns. /ronni/ Krystina Dos Santos RN-BC, BSN, CWOCN Wound and Ostomy Care Nurse Signed: 05/07/2022 08:17 May 07, 2022 02:48 NURSING SECLUSION RESTRAINT NOTE: GIULIANA KIMBLE [facility] AM LOCAL TITLE: RESTRAINT DOCUMENTATION STANDARD TITLE: NURSING SECLUSION RESTRAINT NOTE DATE OF NOTE: MAY 07, 2022@02:48 ENTRY DATE: MAY 07, 2022@02:48:33 AUTHOR: VINCE KIMBLE EXP COSIGNER: URGENCY: STATUS: COMPLETED Medical Use Restraint Assessment Restraint(s) Inititated: Date and Time: 05/07/2022 0004 I. A. Patient is at imminent risk for self-harm by disrupting medical treatment as demonstated by the following: attempting to remove a catheter/line/tube, inab ility to follow or remember instructions, altered cognitive state due to an esthesia, medications, sleep deprivation or disease process B. The Patient has one or more of the following treatment modalities in his/her treatment plan: peripheral or central intravenous lines, other catheters such as horton, nasogastric or gastric tubes II. The following alternate interventions were attempted prior to initiating restraints: attempts to reorient, reassure, and re-explain purpose of device/tube, moved patient closer to nursing station, reduce d stimuli by dimming lights, decreasing noise or limiting visitors, created barrieer to pulling out IV, tubes or dressing by applying kerlix, abdoninal binder, etc., offered toileting frequently, ensuring horton is patent III. Family Involvement/Education family unavailable /ronni/ VINCE KIMBLE BSN, RN REGISTERED NURSE Signed: 05/07/2022 02:49 May 06, 2022 11:28 [facility]ERG[facility]ITLE: EMERGENCY DEPT BOARDER SHIFT NOTE STANDARD TITLE: EMERGENCY DEPT NOTE DATE OF NOTE: MAY 06, 2022@23:28 ENTRY DATE: MAY 06, 2022@23:28:29 AUTHOR: VINCE KIMBLE EXP COSIGNER: URGENCY: STATUS: COMPLETED Nursing Shift Note Nursing care provided from [id number] Highlights from shift: Patient alert and oriented x2. Somewhat letharg ic, keeps eyes closed. Pupils JOE 3mm, round and brisk. All extremities move freely and are weak. Patient follows commands once his attention is gained. P atient able to swallow water, but takes some time to swallow. Patient transfer red from [facility] to standard hospital bed for comfort. Patient turned and rep ositioned every one to two hours. It was reported to this automotive service writer from the arturo medina nurse, that patient pulled out an IV and was pulling on his horton ca theter. Horton now putting out bloody urine turning more juan pablo over time. Open area noted on intergluetal cleft, WOC consult placed. Bilateral heel and sa cral mepilex applied. Right elbow skin tear noted, mepilex applied. Bilatera l groin rash noted, nystain cream applied. Patient's oxygen saturations are 93% on 2L/NC. Lung sounds diminished. LR running 100 mls/hr for 1L. Dilaud id 0.5 mg given at 0323 for restlessness and perceived pain. Trace bilateral lower extremity edema noted. Morning blood glucose 352. Arturo cheung remains in bilateral soft wrist restraints as he continues to pull at lines and tubes despite redirection, education, and other interventions. Scheduled acetaminophen cru shed for patient, but he is currently unable (unwilling?) to swallow medicat ions crushed in applesauce. intake= 240 mls output= 600 mls bloody urine Admitting Diagnosis: UTI SEPSIS Blood Pressure: 141/99 (05/06/2022 22:00) Pulse: 101 (05/06/2022 22:00) Temperature: 100.9 F [38.3 C] (05/06/2022 22:00) Respiratory Rate: 16 (05/06/2022 22:00) Oxygen Saturation: 94% (05/06/2022 22:00) Delivery of Oxygen: Room Air Lung Sounds: Bilaterally clear diminished Cough: None Secretions: Other: none Labs: TROPONIN - NONE FOUND POTASSIUM 4.1 (05/06/22) WBC 18.82 H (05/06/22) HGB 11.6 L (05/06/22) Rhythm: Atrial Fibrillation eeo officer alarm parameters verified. See ICCA for detailed assessment, Education prov ided on medication/cares this shift as needed Skin Interventions performed this shift: Patient turned [id number] or as appropriate while in bed. Patient's heels elevated with pressure relief b oots or pillows under calves. Patient kept clean and dry with barrier cream a pplied as ordered. Device(s) removed and skin underneath was inspe cted. Head of Bed kept below 30 degrees unless otherw ise ordered. /ronni/ VINCE KIMBLE BSN, RN REGISTERED NURSE Signed: 05/07/2022 06:48 May 03, 2022 12:47 NONVA NOTE: MODESTA FERNÁNDEZ [facility] LOCAL TITLE: LABORATORY NONVA NOTE STANDARD TITLE: NONVA NOTE DATE OF NOTE: MAY 03, 2022@12:47 ENTRY DATE: MAY 09, 2022@12:48:08 AUTHOR: MODESTA FERNÁNDEZ EXP COSIGNER: URGENCY: STATUS: COMPLETED This note contains attached LABORATORY scanned d ocument(s) received from an outside facility. Open [place] to review the documen t(s). /ronni/ MODESTA Pagan Clerk Signed: 05/09/2022 12:48
--- OUTSIDE RECORDS SUMMARY | 2022-05-15 09:28 | XMS_ITS | Encounter Summary ---
:1935 Author Organization [facility] rs Address [address] [place] [id number] Support Name Relationship Address Phone WADE LORENZO Unavailable [id number] [place] [address] WADE LORENZO Unavailable [address] [place] [address] ARACELI MARSHALL Unavailable [address] [place] [address] ARACELI MARSHALL Unavailable [address] [place] [address] Insurance Providers: All historical and current Section [...] [place] MEDICARE MCR Aug 19, [id number] [facility] (WNR) ADVANTAGE (WNR) 2017 8 [id number] [phone] [facility] 1 [place] MEDICARE MCR Aug 19, [id number] [facility] (WNR) 2017 8 [id number] [phone] [facility] 1 Selected Encounter This section includes the information on record at [place] for the Encounter. Date/Time Encounter Type Encounter Description Reason Provider Source E Encounter Template Text not used by [facility] Advance Directives: All historical and current Section Date Range: From patient's date of to the date document was created. This section includes ALL of a patient's completed or amended [facility] Advance and Rescinded Directives. The entries below indicate that a directive exists for the patient, but an actual copy is not included with this document. The data comes from all [place] facilities. Date Advance Directives Provider Source Apr 18, 2018 ADVANCE DIRECTIVE LARISSA SIGALA [facility] Apr 18, 2018 ADVANCE DIRECTIVE DISCUSSION LARISSA SIGALA [facility] December 23, 2017 CLINICAL WARNING FAR[facility]AT [facility] May 11, [address] [facility]
--- OUTSIDE RECORDS SUMMARY | 2022-05-15 09:28 | XMS_ITS | Encounter Summary ---
:1935 Author Organization [facility] rs Address [address] [place] [address] Support Name Relationship Address Phone WADE LORENZO Unavailable [phone] [place] [address] WADE LORENZO Unavailable [address] [place] [address] ARACELI MARSHALL Unavailable [address] [place] [address] ARACELI MARSHALL Unavailable [address] [place] [address] Insurance Providers: All historical and current Section Date Range: From patient's date of to the date document was created.This section includes the names of all active insurance providers for the patient. Insurance Type of Plan Start of End of Group Member Insurance Policy [facility] Provider Coverage Name Policy Policy Number ID Provider's Bales's Relationship Coverage Coverage Telephone Name to Policy Number Bales [place] M[place] Aug 19, [id number] Krist[address] [facility] (WNR) ADVANTAGE (WNR) 2016 8 [id number] [phone] [facility] [place] M[place] Aug 19, [id number] Kristel [facility] (WNR) ADVANTAGE (WNR) 2016 8 [id number] [phone] [facility] Selected Encounter This section includes the information on record at [facility] for the Encounter. Date/Time Encounter Type Encounter Reason Provider Source Description May 06, 2022 [facility] ICD-10-CM Z51.81 GI[facility]T 07:57 PM ASSMT&MGMT Encounter for [facility]IM 11-20 therapeutic drug level monitoring with Provider Comments: Encounter for therapeutic drug level monitoring IHE Encounter Template Text not used by [facility] Assessments - Encounter Diagnoses This section includes the primary and secondary diagnoses documented for the Encounter. 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 This section includes future appointments and future orders which are active, pending orscheduled.Future Appointments This section includes appointments that were scheduled to occur 6 months from the date of the Encounter, up to a maximum of 20 appointments. The data comes from all [facility]. Appointment Date/Time Appointment Type Appointment Facili ty Name May 11, 2022 06:15 PM AMBULATORY - NONE [facility] Jul 23, 2022 08:00 AM AMBULATORY [...] the Encounter. The data comes from all [facility]. Test Date/Time Test Type Test Details Facility Name Apr 30, 2022 08:21 Laboratory - Chemistry URINALYSIS URINE WC ON CE [facility] AM Order Apr 30, 2022 08:21 Laboratory - CULTURE & SUSCEPTIBILITY [facility] AM Microbiology Order URINE May 06, 2022 12:00 Laboratory - Blood ABO/RH - LAB BLOOD [facility] AM Bank Order May 06, 2022 10:11 Laboratory - Blood TYPE & SCREEN - LAB [facility] AM Bank Order BLOOD May 06, 2022 10:27 Pharmacy [facility] AM Medication Order May 06, 2022 10:28 [facility] AM Infusion Order May 06, 2022 10:34 Pharmacy [facility] AM Infusion Order May 06, 2022 10:41 [facility] AM Infusion Order May 06, 2022 12:15 Pharmacy - [facility] PM Medication Order May 06, 2022 01:31 Pharmacy - [facility] PM Medication Order May 06, 2022 04:49 Pharmacy - Clinic [facility] PM Medication Order May 07, 2022 01:00 Laboratory - CULTURE & SUSCEPTIBILITY [facility] PM Microbiology Order BLOOD WC ONCE May 11, 2022 09:07 Laboratory - CULTURE & SUSCEPTIBILITY [facility] AM Microbiology Order BLOOD WC May 11, 2022 09:07 Laboratory - CULTURE & SUSCEPTIBILITY [facility] AM Microbiology Order BLOOD WC May 11, 2022 09:38 Laboratory - Chemistry EOSINOPHIL SMEAR,URINE [facility] AM Order URINE WC ONCE May 11, 2022 09:38 Laboratory - Chemistry FENA URINE WC ONCE [facility] AM Order May 11, 2022 09:38 Laboratory - Chemistry URINALYSIS URINE WC ON CE [facility] AM Order Lab Results: +/- 30 days of the encounter This section includes the Chemistry and Hematology Lab Results on record with [facility] for the patient. Radiology Reports and Pathology [facility] [address] [facility] [address] Performing Lab: [facility] [address] [facility] [address] FINGERSTICK GLUCOSE 367 H 70-100 May 11, 2022 07:05 [facility] LIVER FUNCTION TESTS Spec imen Type: PLASMA AM No comment enter ed. Ordering Provid er: CODIE LEON Report Released Date/Time: May 11, 2022 09:08 AM Reporting Lab: [facility] [address] [facility] [address] Performing Lab: [facility] [address] [facility] [address] BILIRUBIN, TOTAL 1.6 H 0.2-1.2 ALKALINE PHOSPHATASE 102 40-150 ALT/SGPT 42 <55 AST/SGOT 30 <34 GAMMA GTP 52 <64 DIR. BILIRUBIN 1.2 H <0.5 May 11, 2022 07:05 [facility] BASIC METABOLIC Specimen Type: PLASMA AM PANEL+MG No comment enter ed. Ordering Provid er: OG DIAL Report Released Date/Time: May 11, 2022 04:46 AM Reporting Lab: [facility] [address] [facility] [address] Performing Lab: [facility] [address] [facility] [address] CREATININE 1.6 H 0.7-1.2 UREA NITROGEN 28 H 8-26 GLUCOSE 396 H 70-100 SODIUM 150 H 136-145 POTASSIUM 3.7 3.5-5.1 CHLORIDE 120 H 98-107 CO2 23 22-29 CALCIUM 8.4 8.4-10.2 MAGNESIUM 2.1 1.6-2.6 ANION GAP 7 5-15 CREAT EGFR(CKD-EPI) 42 L >60 May 11, 2022 07:05 AM [facility] CK,TOTAL Specim en Type: PLASMA No comment enter ed. Ordering Provid er: CODIE LEON Report Released Date/Time: May 11, 2022 09:08 AM Reporting Lab: [facility] [address] [facility] [address] Performing Lab: [facility] [address] [facility] [address] CK,TOTAL 16 L 39-208 May 11, 2022 07:05 AM [facility] BNP Specim en Type: PLASMA No comment enter ed. Ordering Provid er: CODIE LEON Report Released Date/Time: May 11, 2022 09:15 AM Reporting Lab: [facility] [address] [facility] [address] Performing Lab: [facility] [address] [facility] [address] BNP 59 <99 May 11, 2022 07:05 AM [facility] CBC Specim en Type: BLOOD No comment enter ed. Ordering Provid er: OG DIAL Report Released Date/Time: May 11, 2022 04:46 AM Reporting Lab: [facility] [address] [facility] [address] Performing Lab: [facility] [address] [facility] [address] WBC 15.93 H 4.0-11.0 RBC 3.60 L 4.6-6.2 HGB 11.2 L 13.5-17.9 HCT 35.3 L 41-54 MCV 98.1 80-100 MCH 31.1 27-33 MCHC 31.7 L 32.0-37.5 PLT 231 150-400 MPV 11.2 H 7.4-10.4 RDW 15.2 H 11.5-14.5 May 11, 2022 06:14 [facility] FINGERSTICK GLUCOSE Speci men Type: BLOOD AM Comment: Mark casillas Nurse Notified Ordering Provid er: CODIE LEON Report Released Date/Time: May 11, 2022 06:42 AM Reporting Lab: [facility] [address] [facility] [address] Performing Lab: [facility] [address] [facility] [address] FINGERSTICK GLUCOSE 345 H 70-100 May 11, 2022 02:24 [facility] FINGERSTICK GLUCOSE Speci men Type: BLOOD AM Comment: Mark casillas Ordering Provid er: CODIE LEON Report Released Date/Time: May 11, 2022 02:44 AM Reporting Lab: [facility] [address] [facility] [address] Performing Lab: [facility] [address] [facility] [address] FINGERSTICK GLUCOSE 375 H 70-100 May 10, 2022 08:38 [facility] FINGERSTICK GLUCOSE Speci men Type: BLOOD PM Comment: Mark casillas Ordering Provid er: CODIE LEON Report Released Date/Time: May 11, 2022 12:31 AM Reporting Lab: [facility] [address] [facility] [address] Performing Lab: [facility] [address] [facility] [address] FINGERSTICK GLUCOSE 346 H 70-100 May 10, 2022 05:05 [facility] FINGERSTICK GLUCOSE Speci men Type: BLOOD PM Comment: Mark casillas Nurse Notified Ordering Provid er: CODIE LEON Report Released Date/Time: May 10, 2022 11:50 PM Reporting Lab: [facility] [address] [facility] [address] Performing Lab: [facility] [address] [facility] [address] FINGERSTICK GLUCOSE 245 H 70-100 May 10, 2022 02:00 [facility] VANCOMYCIN (TROUGH) Speci men Type: PLASMA PM No comment enter ed. Ordering Provid er: CODIE LEON Report Released Date/Time: May 11, 2022 01:34 AM Reporting Lab: [facility] [address] Performing Lab: [facility] [address] VANCOMYCIN (TROUGH) 31.8 H 10.0-15.0 May 10, 2022 [facility] BASIC METABOLIC Specimen Typ e: PLASMA 02:00 PM PANEL+MG No comment enter ed. Ordering Provid er: CODIE LEON Report Released Date/Time: May 11, 2022 01:34 AM Reporting Lab: [facility] [address] Performing Lab: [facility] [address] CREATININE 1.1 .7-1.2 UREA NITROGEN 22 8-26 [...] May 10, 2022 08:52 PM Reporting Lab: [facility] [address] Performing Lab: [facility] [address] WBC 16.24 H 4.0-11.0 RBC 3.76 L [...] [facility] [address] [facility] [address] Performing Lab: [facility] [address] [facility] [address] FINGERSTICK GLUCOSE 253 H 70-100 May 10, 2022 06:16 [facility] FINGERSTICK GLUCOSE Speci men Type: BLOOD AM Comment: Mark casillas Nurse Notified Ordering Provid er: CODIE LEON Report Released Date/Time: May 10, 2022 11:50 PM Reporting Lab: [facility] [address] [facility] [address] Performing Lab: [facility] [address] [facility] [address] FINGERSTICK GLUCOSE 271 H 70-100 May 09, 2022 09:07 [facility] FINGERSTICK GLUCOSE Speci men Type: BLOOD PM Comment: Mark casillas Ordering Provid er: CODIE LEON Report Released Date/Time: May 10, 2022 11:50 PM Reporting Lab: [facility] [address] [facility] [address] Performing Lab: [facility] [address] [facility] [address] FINGERSTICK GLUCOSE 209 H 70-100 May 09, 2022 05:33 [facility] FINGERSTICK GLUCOSE Speci men Type: BLOOD PM Comment: Mark casillas Nurse Notified Ordering Provid er: CODIE LEON Report Released Date/Time: May 09, 2022 05:53 PM Reporting Lab: [facility] [address] [facility] [address] Performing Lab: [facility] [address] [facility] [address] FINGERSTICK GLUCOSE 251 H 70-100 May 09, 2022 02:09 [facility] VANCOMYCIN (PEAK) Specime n Type: SERUM PM No comment enter ed. Ordering Provid er: AMARIS DE JESUS Report Released Date/Time: May 09, 2022 09:33 AM Reporting Lab: [facility] [address] [facility] [address] Performing Lab: [facility] [address] VANCOMYCIN (PEAK) 24.2 20.0-40.0 May 09, 2022 11:19 [facility] FINGERSTICK GLUCOSE Speci men Type: BLOOD AM Comment: Mark casillas Nurse Notified Ordering Provid er: CODIE LEON Report Released Date/Time: May 09, 2022 11:38 AM Reporting Lab: [facility] [address] Performing Lab: [facility] [address] FINGERSTICK GLUCOSE 240 H 70-100 May 09, 2022 08:13 [facility] VANCOMYCIN (TROUGH) Speci men Type: SERUM AM No comment enter ed. Ordering Provid er: AMARIS DE JESUS Report Released Date/Time: May 08, 2022 11:14 AM Reporting Lab: [facility] [address] [facility] [address] Performing Lab: [facility] [address] VANCOMYCIN (TROUGH) 16.1 H 10.0-15.0 May 09, 2022 05:33 AM [facility] CBC & DIFF Specim en Type: BLOOD Comment: Automa nola Differential Performed Ordering Provid er: CODIE LEON Report Released Date/Time: May 08, 2022 05:27 PM Reporting Lab: [facility] [address] [facility] [address] Performing Lab: [facility] [address] WBC 14.92 H 4.0-11.0 RBC 3.41 L [...] May 08, 2022 05:27 PM Reporting Lab: [facility] [address] [facility] [address] Performing Lab: [facility] [address] [facility] [address] CREATININE 1.2 0.7-1.2 UREA NITROGEN 25 8-26 [...] [facility] [address] [facility] [address] Performing Lab: [facility] [address] [facility] [address] FINGERSTICK GLUCOSE 295 H 70-100 May 08, 2022 09:32 PM [facility] EXTRA MINT TUBE Specim en Type: PLASMA No comment enter ed. Ordering Provid er: MD ESTEBAN Report Released Date/Time: May 08, 2022 09:32 PM Reporting Lab: [facility] [address] [facility] [address] Performing Lab: [facility] [address] [facility] [address] EXTRA MINT TUBE RECEIVED May 08, 2022 09:32 PM [facility] EXTRA PURPLE TUBE Spec imen Type: BLOOD No comment enter ed. Ordering Provid er: MD ESTEBAN Report Released Date/Time: May 08, 2022 09:32 PM Reporting Lab: [facility] [address] [facility] [address] Performing Lab: [facility] [address] [facility] [address] EXTRA PURPLE TUBE RECEIVED May 08, 2022 09:32 [facility] EXTRA GOLD GEL TUBE Speci men Type: SERUM PM No comment enter ed. Ordering Provid er: MD ESTEBAN Report Released Date/Time: May 08, 2022 09:32 PM Reporting Lab: [facility] [address] [facility] [address] Performing Lab: [facility] [address] [facility] [address] EXTRA GOLD GEL TUBE RECEIVED May 08, 2022 09:32 PM [facility] EXTRA BLUE TUBE Specim en Type: PLASMA No comment enter ed. Ordering Provid er: MD ESTEBAN Report Released Date/Time: May 08, 2022 09:32 PM Reporting Lab: [facility] [address] [facility] [address] Performing Lab: [facility] [address] [facility] [address] EXTRA BLUE TUBE RECEIVED May 08, 2022 09:32 PM [facility] EXTRA BRASWELL TUBE Specim en Type: PLASMA No comment enter ed. Ordering Provid er: MD ESTEBAN Report Released Date/Time: May 08, 2022 09:37 PM Reporting Lab: [facility] [address] [facility] [address] Performing Lab: [facility] [address] [facility] [address] EXTRA BRASWELL TUBE RECEIVED May 08, 2022 09:32 PM [facility] LACTIC ACID Specim en Type: PLASMA No comment enter ed. Ordering Provid er: OG DIAL Report Released Date/Time: May 08, 2022 09:49 PM Reporting Lab: [facility] [address] [facility] [address] Performing Lab: [facility] [address] [facility] [address] LACTIC ACID 2.5 H 0.5-2.2 May 08, 2022 09:32 PM [facility] BNP Specim en Type: PLASMA No comment enter ed. Ordering Provid er: OG DIAL Report Released Date/Time: May 08, 2022 09:50 PM Reporting Lab: [facility] [address] Performing Lab: [facility] [address] BNP 897 H <99 May 08, 2022 09:32 PM [facility] BLOOD GASES Specim en Type: VENOUS BLOOD Comment: O2 THE RAPY = 3L PM Ordering Provid er: OG DIAL Report Released Date/Time: May 08, 2022 09:50 PM Reporting Lab: [facility] [address] Performing Lab: [facility] [address] PH 7.36 7.33-7.43 PCO2 47 41-51 BICARBONATE 24.4 21.0-30.0 PO2 31 L 35-40 OXYGEN SATURATION 54.7 L 70.0-75.0 PH(TEMP CORRECTED) 7.37 7.33-7.43 PCO2(TEMP CORRECTED) 46 41-51 PO2(TEMP CORRECTED) 31 L 35-40 PATIENT TEMPERATURE 36.7 May 08, 2022 09:32 PM [facility] CBC Specim en Type: BLOOD No comment enter ed. Ordering Provid er: OG DIAL Report Released Date/Time: May 08, 2022 09:50 PM Reporting Lab: [facility] [address] Performing Lab: [facility] [address] WBC 18.54 H 4.0-11.0 RBC 3.68 L 4.6-6.2 HGB 11.5 L 13.5-17.9 HCT 35.1 L 41-54 MCV 95.4 80-100 MCH 31.3 27-33 MCHC 32.8 32.0-37.5 PLT 221 150-400 MPV 11.1 H 7.4-10.4 RDW 14.9 H 11.5-14.5 May 08, 2022 [facility] COMPREHENSIVE METABOLIC Spec imen Type: PLASMA 09:32 PM PANEL+MG No comment enter ed. Ordering Provid er: OG DIAL Report Released Date/Time: May 08, 2022 09:50 PM Reporting Lab: [facility] [address] [facility] [address] Performing Lab: [facility] [address] [facility] [address] CREATININE 1.3 H 0.7-1.2 UREA NITROGEN 26 [...] 08:27 [facility] FINGERSTICK GLUCOSE Spec imen Type: BLOOD PM Comment: Mark casillas Nurse Notified Ordering Provid er: CODIE LEON Report Released Date/Time: May 08, 2022 08:55 PM Reporting Lab: [facility] [address] [facility] [address] Performing [facility] [address] FINGERSTICK GLUCOSE 272 H 70-100 May 08, 2022 06:56 [facility] FINGERSTICK GLUCOSE Speci men Type: BLOOD PM Comment: Mark casillas Ordering Provid er: CODIE LEON Report Released Date/Time: May 08, 2022 07:08 PM Reporting Lab: [facility] [address] [facility] [address] Performing Lab: [facility] [address] [facility] [address] FINGERSTICK GLUCOSE 262 H 70-100 May 08, 2022 04:50 [facility] FINGERSTICK GLUCOSE Speci men Type: BLOOD PM Comment: Nurse Notified Ordering Provid er: CODIE LEON Report Released Date/Time: May 08, 2022 05:14 PM Reporting Lab: [facility] [address] [facility] [address] Performing Lab: [facility] [address] [facility] [address] FINGERSTICK GLUCOSE 330 H 70-100 May 08, 2022 11:21 [facility] FINGERSTICK GLUCOSE Speci men Type: BLOOD AM Comment: Mark casillas Nurse Notified Ordering Provid er: CODIE LEON Report Released Date/Time: May 08, 2022 11:51 AM Reporting Lab: [facility] [address] [facility] [address] Performing Lab: [facility] [address] [facility] [address] FINGERSTICK GLUCOSE 231 H 70-100 May 08, 2022 07:25 AM [facility] CBC & DIFF Specim en Type: BLOOD Comment: Automa nola Differential Performed Ordering Provid er: BETO AYALA Report Released Date/Time: May 07, 2022 12:28 PM Reporting Lab: [facility] [address] [facility] [address] Performing Lab: [facility] [address] [facility] [address] WBC 16.29 H 4.0-11.0 RBC 3.38 L [...] [facility] [address] [facility] [address] Performing Lab: [facility] [address] [facility] [address] .INR 1.2 H 0.8-1.1 .PT 14.2 H 9.4-12.5 May 08, 2022 [facility] COMPREHENSIVE METABOLIC Spec imen Type: PLASMA 07:25 AM PANEL+MG No comment enter ed. Ordering Provid er: BETO AYALA Report Released Date/Time: May 07, 2022 12:28 PM Reporting Lab: [facility] [address] [facility] [address] Performing Lab: [facility] [address] [facility] [address] CREATININE 1.1 0.7-1.2 UREA NITROGEN 27 H [...] [facility] [address] [facility] [address] Performing Lab: [facility] [address] [facility] [address] FINGERSTICK GLUCOSE 276 H 70-100 May 07, 2022 08:36 [facility] FINGERSTICK GLUCOSE Speci men Type: BLOOD PM Comment: Nurse Notified Ordering Provid er: CODIE LEON Report Released Date/Time: May 08, 2022 12:29 AM Reporting Lab: [facility] [address] [facility] [address] Performing Lab: [facility] [address] [facility] [address] FINGERSTICK GLUCOSE 282 H 70-100 May 07, 2022 07:04 PM [facility] LACTIC ACID Specim en Type: PLASMA No comment enter ed. Ordering Provid er: BETO AYALA Report Released Date/Time: May 07, 2022 06:28 PM Reporting Lab: [facility] [address] [facility] [address] Performing Lab: [facility] [address] [facility] [address] LACTIC ACID 2.0 0.5-2.2 May 07, 2022 04:46 [facility] FINGERSTICK GLUCOSE Speci men Type: BLOOD PM Comment: Nurse Notified Ordering Provid er: BETO AYALA Report Released Date/Time: May 07, 2022 05:00 PM Reporting Lab: [facility] [address] [facility] [address] Performing Lab: [facility] [address] [facility] [address] FINGERSTICK GLUCOSE 274 H 70-100 May 07, 2022 12:47 [facility] FINGERSTICK GLUCOSE Speci men Type: BLOOD PM Comment: Mark casillas Nurse Notified Ordering Provid er: BETO AYALA Report Released Date/Time: May 07, 2022 05:32 PM Reporting Lab: [facility] [address] [facility] [address] Performing Lab: [facility] [address] [facility] [id number] FINGERSTICK GLUCOSE 309 H 70-100 May 07, 2022 06:35 [facility] F[place]ER[place]ICK GLUCOSE Speci men Type: BLOOD AM Comment: Mark casillas Nurse Notified Ordering Provid er: GAYLA DOMINGUEZ Report Released Date/Time: May 07, 2022 06:46 AM Reporting Lab: [facility] [address] [facility] [address] Performing Lab: [facility] [address] [facility] [id number] FINGERSTICK GLUCOSE 352 H 70-100 May 07, 2022 06:15 AM [facility] ALBUMIN Specim en Type: PLASMA No comment enter ed. Ordering Provid er: GAYLA DOMINGUEZ Report Released Date/Time: May 06, 2022 06:33 PM Reporting Lab: [facility] [address] [facility] [address] Performing Lab: [facility] [address] [facility] [address] ALBUMIN 3.0 L 3.5-5.2 May 07, 2022 [facility] COMPREHENSIVE METABOLIC Spec imen Type: PLASMA 06:15 AM PANEL+MG No comment enter ed. Ordering Provid er: GAYLA DOMINGUEZ Report Released Date/Time: May 06, 2022 09:11 PM Reporting Lab: [facility] [address] Performing Lab: [facility] [address] CREATININE 1.2 0.7-1.2 UREA NITROGEN 25 8-26 [...] Reporting Lab: [facility] [address] [facility] [address] Performing Lab: [facility] [address] WBC 20.25 H 4.0-11.0 RBC 3.54 L [...] [facility] [address] [facility] [address] Performing Lab: [facility] [address] [facility] [address] LACTIC ACID 2.7 H 0.5-2.2 May 06, 2022 10:45 [facility] FINGERSTICK GLUCOSE Speci men Type: BLOOD PM Comment: Mark casillas Nurse Notified Ordering Provid er: GAYLA DOMINGUEZ Report Released Date/Time: May 07, 2022 12:08 AM Reporting Lab: [facility] [address] [facility] [address] Performing Lab: [facility] [address] [facility] [address] FINGERSTICK GLUCOSE 320 H 70-100 May 06, 2022 06:53 [facility] MRSA SURVL NARES Specimen Type: NARES PM DNA No comment enter ed. Ordering Provid er: GAYLA DOMINGUEZ Report Released Date/Time: May 06, 2022 06:33 PM Reporting Lab: [facility] [address] [facility] [address] Performing Lab: [facility] [address] [facility] [address] MRSA SURVL NARES DNA POSITIVE HH Negative May 06, 2022 06:51 PM [facility] LACTIC ACID Specim en Type: PLASMA No comment enter ed. Ordering Provid er: GAYLA DOMINGUEZ Report Released Date/Time: May 06, 2022 06:04 PM Reporting Lab: [facility] [address] [facility] [address] Performing Lab: [facility] [address] [facility] [address] LACTIC ACID 3.1 H 0.5-2.2 May 06, 2022 06:51 [facility] CARDIAC TROPONIN I Specim en Type: PLASMA PM No comment enter ed. Ordering Provid er: GAYLA DOMINGUEZ Report Released Date/Time: May 06, 2022 06:05 PM Reporting Lab: [facility] [address] [facility] [address] Performing Lab: [facility] [address] [facility] [address] CARDIAC TROPONIN I <0.028 <0.028 May 06, 2022 06:51 [facility] C-REACTIVE PROTEIN Specim en Type: PLASMA PM No comment enter ed. Ordering Provid er: GAYLA DOMINGUEZ Report Released Date/Time: May 06, 2022 09:29 PM Reporting Lab: [facility] [address] [facility] [address] Performing Lab: [facility] [address] [facility] [address] C-REACTIVE PROTEIN 392.40 H <5.00 May 06, 2022 06:51 [facility] EXTRA GOLD GEL TUBE Speci men Type: SERUM PM No comment enter ed. Ordering Provid er: GAYLA DOMINGUEZ Report Released Date/Time: May 06, 2022 06:52 PM Reporting Lab: [facility] [address] Performing Lab: [facility] [address] EXTRA GOLD GEL TUBE RECEIVED May 06, 2022 10:51 AM [facility] URINALYSIS Specim en Type: URINE No comment enter ed. Ordering Provid er: MODESTA VILLANUEVA Report Released Date/Time: May 06, 2022 10:11 AM Reporting Lab: [facility] [address] Performing Lab: [facility] [address] URINE COLOR YELLOW SPECIFIC GRAVITY 1.020 1.003-1.035 [...] May 06, 2022 10:11 AM Reporting Lab: [facility] [address] Performing Lab: [facility] [address] COVID-19 (CEPHEID) Not Detected Not Dete cted May 06, 2022 10:20 AM [facility] POC ABG/LACTATE Specim en Type: VENOUS BLOOD No comment enter ed. Ordering Provid er: MODESTA VILLANUEVA Report Released Date/Time: May 06, 2022 10:22 AM Reporting Lab: [facility] [address] [facility] [address] Performing Lab: [facility] [address] [facility] [address] POC PH 7.410 7.31-7.41 POC PCO2 28.9 [...] [facility] [address] [facility] [address] Performing Lab: [facility] [address] [facility] [address] PHOSPHORUS 2.5 2.3-4.7 May 06, 2022 10:00 [facility] ACT PART THROMBO TIME Spe cimen Type: PLASMA AM No comment enter ed. Ordering Provid er: MODESTA VILLANUEVA Report Released Date/Time: May 06, 2022 10:11 AM Reporting Lab: [facility] [address] [facility] [address] Performing Lab: [facility] [address] [facility] [address] APTT 37.8 H 25.1-36.5 May 06, 2022 10:00 [facility] PROTHROMBIN TIME/INR Spec imen Type: PLASMA AM No comment enter ed. Ordering Provid er: MODESTA VILLANUEVA Report Released Date/Time: May 06, 2022 10:11 AM Reporting Lab: [facility] [address] [facility] [address] Performing Lab: [facility] [address] [facility] [address] .INR 2.5 H 0.8-1.1 .PT 29.2 H 9.4-12.5 May 06, 2022 10:00 AM [facility] PROCALCITONIN Specim en Type: PLASMA No comment enter ed. Ordering Provi violeta: MODESTA VILLANUEVA Report Released Date/Time: May 06, 2022 10:11 AM Reporting Lab: [facility] [address] [facility] [address] Performing Lab: [facility] [address] [facility] [address] PROCALCITONIN 22.29 H <0.09 May 06, 2022 10:00 [facility] CARDIAC TROPONIN I Specim en Type: PLASMA AM Comment: Critic al Value Reported To: BROOKS COTE 05-06-2022 @1053 BY MBB. Critical value report confirmed. Ordering Provid er: MODESTA VILLANUEVA Report Released Date/Time: May 06, 2022 10:11 AM Reporting Lab: [facility] [address] [facility] [address] Performing Lab: [facility] [address] [facility] [address] CARDIAC TROPONIN I 0.035 HH <0.028 May 06, 2022 10:00 AM [facility] LIPASE Specim en Type: PLASMA No comment enter ed. Ordering Provid er: MODESTA VILLANUEVA Report Released Date/Time: May 06, 2022 10:11 AM Reporting Lab: [facility] [address] [facility] [address] Performing Lab: [facility] [address] [facility] [address] LIPASE <4 <60 May 06, 2022 [facility] COMPREHENSIVE METABOLIC Spec imen Type: PLASMA 10:00 AM PANEL+MG Comment: Manual Differential Performed Ordering Provid er: MODESTA VILLANUEVA Report Released Date/Time: May 06, 2022 10:11 AM Reporting Lab: [facility] [address] [facility] [address] Performing Lab: [facility] [address] [facility] [address] CREATININE 1.3 H 0.7-1.2 UREA NITROGEN 25 [...] [facility] [address] [facility] [address] Performing Lab: [facility] [address] [facility] [address] EXTRA GOLD GEL TUBE RECEIVED May 06, 2022 10:00 AM [facility] CBC & DIFF Specim en Type: BLOOD Comment: Manual Differential Performed Ordering Provid er: MODESTA VILLANUEVA Report Released Date/Time: May 06, 2022 10:11 AM Reporting Lab: [facility] [address] [facility] [address] Performing Lab: [facility] [address] [facility] [address] WBC 18.82 H 4.0-11.0 RBC 3.70 L [...] [facility] [address] [facility] [address] Performing Lab: [facility] [address] [facility] [address] FINGERSTICK GLUCOSE 369 H 70-100 Apr 30, 2022 [facility] BASIC METABOLIC Specimen Typ e: PLASMA 09:17 AM PANEL+MG No comment enter ed. Ordering Provid er: BILL ROONEY Report Released Date/Time: Apr 30, 2022 08:21 AM Reporting Lab: [facility] [address] Performing Lab: [facility] [address] CREATININE 1.2 0.7-1.2 UREA NITROGEN 26 8-26 [...] Apr 30, 2022 08:21 AM Reporting Lab: [facility] [address] Performing Lab: [facility] [address] WBC 10.40 4.0-11.0 RBC 3.96 L 4.6-6.2 [...] 2021 10:00 /min mm[Hg] [facility] Apr 18, 100 F [place] 2021 07:49 [facility] May 06, 101.2 F 84 117/56 22 /min 10 [place] 2021 11:22 /min mm[Hg] [facility] May 06, 257.4 34 [place] 2021 10:41 lb [facility] Social History: Smoking Status (Most current) and Tobacco Use (All prior to encounter date) This section includes the most current, and the historical, smoking and tobacco-related health factors from the [facility] facility where the Encounter took place.Current Smoking Status This section includes the most current smoking, or tobacco-related health factor, from the [facility] where the Encounter took place. Date/Time Current Smoking Status Comment Facility Feb 02, 2022 09:30 AM VA-TOBACCO NEVER USED [place] [facility] Tobacco Use History This section includes a history of the smoking, or tobacco- related health factors, that were collected on or before the date of the Encounter. The data comes from the [facility] where the Encounter took place. Date/Time Smoking Status/Tobacco Use Comment [facility] Mar 22, 2021 07:45 AM [facility]-TOBACCO NEVER USED [place] [facility] Oct 02, 2019 10:02 AM [facility]-TOBACCO NEVER USED [place] [facility] May 21, 2018 09:05 AM [facility]-TOBACCO [place] [facility]ED [place] [facility] [...] 18, 2018 ADVANCE DIRECTIVE DISCUSSION LARISSA SIGALA [facility] December 23, 2017 CLINICAL WARNING FARHAT SCHMID [facility] May 11, 2003 ADVANCE DIRECTIVE BERT [...] 2022 09:46 CHEST 1 VIEW: SONJA OVALLES [facility] LUISANA EDDY [id number] -1935 M Exm Date: MAY 11, 2022@09:46 Req Phys: MALINICODIE E Pat Loc: OP Unknown /05-13-2022@05:05 Img Loc: MAIN X-RAY Service: PRIMARY CARE - MED OFFICE (Case [id number] COMPLETE) CHEST 1 VIEW (RAD Detailed) CPT:85020 Proc Modifiers : PORTABLE EXAM Reason for [...] 11, 2022 Date Verified: MAY 11, 2022 Visual Designer E-Sig:/ES/SONJA OVALLES MD Report: CHEST 1 VIEW [...] Primary Interpreting Staff: SONJA OVALLES MD, RADIOLOGIST (Visual Designer) /CDC May 10, 2022 03:49 CT HEAD (P): RADIOLOGY,OUTSIDE [facility] PM LU[place]NA EDDY [id number] -1935 M SERVICE Exm Date: MAY 10, 2022@15:49 Req Phys: CODIE LEON Pat Loc: OP Unknown /05-13-2022@05:05 Img Loc: CT IMAGING Service: PRIMARY CARE - MED OFFICE (Case [id number] COMPLETE) CT HEAD/BRAIN W/O CONTRAST (CT Detailed) CPT:52280 Reason for Study: CHANGE IN MENTAL STATUS Clinical History: CHANGE IN MENTAL STATUS. ORDER ADMINISTRATIVELY ENTERED FOLLOWING SYSTEM OUTAGE. Report Status: Verified Date Reported: MAY 10, 2022 Date Verified: MAY 10, 2022 Visual Designer E-Sig: Report: CT HEAD/BRAIN W/O CONTRAST [PRINTSET] HISTORY: Change in mental status. COMPARISON: CT from 05/07/2022. TECHNIQUE: Contiguous axial CT images from the level of the skull base through the skull apex, with coronal and s agittal reformats, performed at the local [facility] facility. 321 images were received by the [facility] (NTP) for interpretation. RADIATION [...] study. READING PHYSICIAN: Akash Mccoy M.D. -[phone] 05/10/2022 17:35 PDT [facility] National Teleradiology Program [phone] (For Medical Practitioner Use Only ) Attention Patients / Veterans: If you have ques tions or concerns about these test results, please contact your o rdering provider or primary care team. Primary Interpreting Staff: RADIOLOGY,OUTSIDE SERVICE, Staff Physician / May 08, 2022 07:45 CT T-SPINE (P): RADIOLOGY,OUTSIDE [facility] LUISANA EDDY [id number] -1935 M SERVICE Exm Date: MAY 08, 2022@19:45 Req Phys: CODIE LEON Loc: OP Unknown /05-13-2022@05:05 Img Loc: CT IMAGING Service: PRIMARY CARE - MED OFFICE (Case [id number] COMPLETE) CT SPINE THORACIC W/O CONTR AST (CT Detailed) CPT:38869 Reason for Study: mrsa bacteremia, spinal surge ry - r/o abscess or discitis Clinical History: [place] IS NOT under investigation for COVID-19 or is COVID-19 negative Defer to radiologist for final CT protocol. Responsible provider name and phone number to n otify for critical findings if other than user placing the order a nd pager listed below: User placing orders pager: [phone] LAST 3: Collection DT Specimen Test Name [...] GFR (eGF 44 L Ref: >=60 Allergies: ([place] only) SIMVASTATIN (Feb 29, 2004) CEPHALEXIN (Mar 01, 2004) Report Status: Verified Date Reported: MAY 08, 2022 Date Verified: MAY 08, 2022 Visual Designer E-Sig: Report: CT SPINE THORACIC W/O CONTRAST [...] thoracic level. READING PHYSICIAN: Luisana Webb MD -[phone] 05/08/2022 19:20 PDT [facility] National Teleradiology Program [phone] (For Medical Practitioner Use Only ) Attention Patients / Veterans: If you have ques tions or concerns about these test results, please contact your [facility] provider or primary care team. Primary Interpreting Staff: RADIOLOGY,OUTSIDE SERVICE, Staff Physician / May 08, 2022 04:48 CHEST 1 VIEW: RADIOLOGY,OUTSIDE [facility] NUNULUISANA [id number] -1935 M SERVICE Exm Date: MAY 08, 2022@16:48 Req Phys: CODIE LEON Loc: OP Unknown /05-13-2022@05:05 Img Loc: MAIN X-RAY Service: PRIMARY CARE - MED OFFICE (Case [id number] COMPLETE) CHEST 1 VIEW (RAD Detailed) CPT:21724 Proc Modifiers : PORTABLE EXAM Reason for Study: dyspnea Clinical History: [place] IS NOT under investigation for COVID-19 or is COVID-19 negative acute worsening of dyspnea Responsible provider name and phone number to notify for critical findings if other than user placing the order and pager listed below: User placing orders pager: [phone] malini cell [phone] LAST CREATININE 1.1 (05/08/22) Report Status: Verified Date Reported: MAY 08, 2022 Date Verified: MAY 08, 2022 Visual Designer E-Sig: Report: CHEST 1 VIEW HISTORY: dyspnea COMPARISON: 05/06/2022 TECHNIQUE: Frontal view(s) of the chest, submit nola to the [facility] (NTP) for interp retation. FINDINGS: Reduced lung volumes. Progressive cardiomegaly, and vascular congestion as well as diffuse interstitial prom inence with probable small effusions. Impression: Expiratory exam with findings of CHF and mild e santa READING PHYSICIAN: Nghia Menjivar M.D. -[phone] 05/08/2022 18:57 EDT [facility] National Teleradiology Program [phone] (For Medical Practitioner Use Only ) Attention Patients / Veterans: If you have ques tions or concerns about these test results, please contact your [facility] provider or primary care team. Primary Interpreting Staff: RADIOLOGY,OUTSIDE SERVICE, Staff Physician / May 07, 2022 10:29 CT HEAD (P): SHANI POLANCO [facility] LUISANA EDDY [id number] -1935 M Exm Date: MAY 07, 2022@10:29 Req Phys: BETO AYALA Loc: OP Unknown/0 05-13-2022@05:05 Img Loc: CT IMAGING Service: PRIMARY CARE - MED OFFICE (Case [id number] COMPLETE) CT HEAD/BRAIN W/O CONTRAST ( CT Detailed) CPT:62109 Reason for Study: seizure noted at [facility] Clinical History: IS NOT under investigation for COVID-19 or is COVID-19 negative Defer to radiologist for final CT protocol. Responsible provider name and phone number to n otify for critical findings if other than user placing the order a nd pager listed below: User placing orders pager: [phone] LAST 3: Collection DT Specimen Test Name [...] GFR (eGF 44 L Ref: >=60 Allergies: ([place] only) SIMVASTATIN (Feb 29, 2004) CEPHALEXIN (Mar 01, 2004) Report Status: Verified Date Reported: MAY 07, 2022 Date Verified: MAY 07, 2022 Visual Designer E-Sig:/ES/SHANI POLANCO MD Report: EXAM: CT HEAD/BRAIN [...] lis nola below: User placing orders pager: [phone] LAST 3: Collecti on DT Specimen Test [...] Primary Interpreting Staff: SHANI POLANCO MD, RADIOLOGIST (Visual Designer) /Javed May 06, 2022 11:40 CHEST 1 VIEW: RADIOLOGY,OUTSIDE [facility] AM LUISANA EDDY [id number] -1935 M SERVICE Exm Date: MAY 06, 2022@11:40 Req Phys: MODESTA VILLANUEVA Loc: [facility] EMERGENCY DEPT WALK-IN (Re Img Loc: MAIN X-RAY Service: Unknown (Case [id number] COMPLETE) CHEST 1 VIEW (RAD Detailed) C PT:63073 Proc Modifiers : PORTABLE EXAM Reason for [...] pager listed below: User placing orders pager: [phone] LAST CREATININE 1.2 (04/30/22) Report Status: Verified Date Reported: MAY 06, 2022 Date Verified: MAY 06, 2022 Visual Designer E-Sig: Report: Technique: Frontal chest. No comparison Impression: Cardiac silhouette is mildly enlarged. There is mild pulmonary venous congestion. No definite pleural effusion . No pneumothorax seen. READING PHYSICIAN: Vern Donnelly M.D. -[phone] 05/06/2022 13:26 EDT [facility] National Teleradiology Program [phone] (For Medical Practitioner Use Only ) Attention Patients / Veterans: If you have ques tions or concerns about these test results, please contact your o [facility] provider or primary care team. Primary Interpreting Staff: RADIOLOGY,OUTSIDE SERVICE, Staff Physician / May 06, 2022 10:36 CT (AP) ABDOMEN/PELVIS (P): RADIOLOGY,OUTSIDE [facility] LUISANA EDDY [id number] -1935 M SERVICE Exm Date: MAY 06, 2022@10:36 Req Phys: MODESTA VILLANUEVA Loc: [facility] EMERGENCY DEPT WALK-IN (Re Img Loc: CT IMAGING Service: Unknown (Case 66 COMPLETE) CT (AP) ABDOMEN/PELVIS W CONT RAST(CT Detailed) CPT:89521 Reason for Study: fever, back pain Clinical History: fever, back pain, ecchymosis left low back consideration for intra-abdominal process, aort ic changes, LS spine trauma, kidney inflammation, GI or obs truction [place] IS under investigation (PUI) for COVID- 19 or is COVID-19+ Defer to radiologist for final CT protocol. Please enter pertinent clinical history on the next page. Responsible provider name and phone number to n otify for critical findings if other than user placing the order a nd pager listed below: User placing orders pager: [phone] LAST 3: Collection DT Specimen Test Name [...] ESTIMATED GFR(eGF 44 L Ref: >=60 Allergies: ([place] only) SIMVASTATIN (Feb 29, 2004) CEPHALEXIN (Mar 01, 2004) To see allergies from all [place] locations click Re ports tab>Remote Data>All Available Sites>Clinical Reports>Aller gies. Report Status: Verified Date Reported: MAY 06, 2022 Date Verified: MAY 06, 2022 Visual Designer E-Sig: Report: Exam: CT (AP) ABDOMEN/PELVIS W CONTRAST [PRINTS ET] Clinical History: fever, back pain Number of images: 918 Comparison: No priors available Technique: The study was protocoled and supervi sed at the local [facility] facility. CT of the abdomen and pelvis was performed afte r the uneventful administration of iodinated contrast. Images we re received by the [facility] (NTP) for interpretation. Total [...] findings, above. READING PHYSICIAN: Eduin Donaldson M.D. -[phone] 05/06/2022 12:48 [facility] National Teleradiology Program [phone] (For Medical Practitioner Use Only ) Attention Patients / Veterans: If you have ques tions or concerns about these test results, please contact your o [facility] provider or primary care team. Primary Interpreting Staff: RADIOLOGY,OUTSIDE SERVICE, Staff Physician / May 06, 2022 10:35 CT HEAD/BRAIN W/O CONTRAST: RADIOLOGY,OUTSIDE [facility] AM LUISANA EDDY [id number] -1935 M SERVICE Exm Date: MAY 06, 2022@10:35 Req Phys: MODESTA VILLANUEVA Loc: [facility] EMERGENCY DEPT WALK-IN (Re Img Loc: CT IMAGING Service: Unknown (Case 64 COMPLETE) CT HEAD/BRAIN W/O CONTRAST (C T Detailed) CPT:31982 Reason for Study: falls, blood thinner, AMS, se izure Clinical History: falls, blood thinner, AMS, seizure [place] IS under investigation (PUI) for COVID- 19 or is COVID-19+ Defer to radiologist for final CT protocol. Responsible provider name and phone number to n otify for critical findings if other than user placing the order a nd pager listed below: User placing orders pager: [phone] LAST 3: Collection DT Specimen Test Name [...] ESTIMATED GFR(eGF 44 L Ref: >=60 Allergies: ([place] only) SIMVASTATIN (Feb 29, 2004) CEPHALEXIN (Mar 01, 2004) To see allergies from all [place] locations click Re ports tab>Remote Data>All Available Sites>Clinical Reports>Aller gironni. Report Status: Verified Date Reported: MAY 06, 2022 Date Verified: MAY 06, 2022 Visual Designer E-Sig: Report: CT HEAD/BRAIN W/O CONTRAST Clinical [...] T findings. READING PHYSICIAN: Eduin Donaldson M.D. -[phone] 05/06/2022 12:30 [facility] National Teleradiology Program [phone] (For Medical Practitioner Use Only ) Attention Patients / Veterans: If you have ques tions or concerns about these test results, please contact your o rdering provider or primary care team. Primary Interpreting Staff: RADIOLOGY,OUTSIDE SERVICE, Staff Physician / May 06, 2022 10:35 CT CERVICAL SPINE W/O CONTRAST: RADIOLOGY,OUT SIDE [facility] LUISANA EDDY [id number] -1935 M SERVICE Exm Date: MAY 06, 2022@10:35 Req Phys: MODESTA VILLANUEVA Loc: [facility] EMERGENCY DEPT WALK-IN (Re Img Loc: CT IMAGING Service: Unknown (Case 65 COMPLETE) CT CERVICAL SPINE W/O CONTRAS T (CT Detailed) CPT:02528 Reason for Study: falls, blood thinner, AMS, se izure Clinical History: falls, blood thinner, AMS, seizure [place] IS under investigation (PUI) for COVID- 19 or is COVID-19+ Defer to radiologist for final CT protocol. Responsible provider name and phone number to n otify for critical findings if other than user placing the order a nd pager listed below: User placing orders pager: [phone] LAST 3: Collection DT Specimen Test Name [...] ESTIMATED GFR(eGF 44 L Ref: >=60 Allergies: ([place] only) SIMVASTATIN (Feb 29, 2004) CEPHALEXIN (Mar 01, 2004) To see allergies from all [facility] locations click Re ports tab>Remote Data>All Available Sites>Clinical Reports>Aller gies. Report Status: Verified Date Reported: MAY 06, 2022 Date Verified: MAY 06, 2022 Visual Designer E-Sig: Report: CT CERVICAL SPINE W/O CONTRAST HISTORY:falls, blood thinner, AMS, seizure NUMBER OF IMAGES:770 COMPARISON: None available. TECHNIQUE: A non contrast CT of the cervical sp ine was performed at the local [place]. Images were subsequently sent to [facility] [...] findings, above. READING PHYSICIAN: Eduin Donaldson M.D. -[phone] 05/06/2022 12:33 [facility] National Teleradiology Program [phone] (For Medical Practitioner Use Only ) Attention Patients / Veterans: If you have ques tions or concerns about these test results, please contact your o [facility] provider or primary care team. Primary [...] comes from all [place] treatment facilities. Date/Time Pathology Report Provider Source May 09, 2022 05:30 AM LR MICROBIOLOGY REPORT: [place] [facility] Reporting Lab: [facility] [CLIA# [id number]] [place] [address] Accession [UID]: [id number] [[id number]] Receiv ed: May 09, 2022@01:35 Collection sample: BLOOD Collection date: Apr 05:30 Provider: CODIE LEON Comment on specimen: LEFT ARM, RECEIVED 2 BLOOD CULTURE BOTTLES Test(s) ordered: CULTURE & SUSCEPTIBILITY...... 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 R TRIMETH/SULFA................. S TETRACYCLINE.................. S CLINDAMYCIN................... S RIFAMPIN...................... S VANCOMYCIN.................... S Bacteriology Remark(s): VANCOMYCIN SHAMIKA: <=0.5 ug/mL THIS REPORT IS FINAL =--=--=--=--=--=--=--=--=--=--=--=--=--= --=--=--=--=--=--=--=--=--=--=--=--=-- Performing Laboratory: Bacteriology Report Performed By: [facility] [CLIA# [id number]] [place] [address] May 08, 2022 03:23 PM LR MICROBIOLOGY REPORT: [facility] Reporting Lab: [facility] [CLIA# [id number]] [place] [address] Accession [UID]: [id number] [[id number]] Receiv ed: May 08, 2022@15:41 Collection sample: BLOOD Collection date: Apr 15:23 Provider: CODIE LEON Comment on specimen: LEFT ARM, RECEIVED 2 BLOOD CULTURE BOTTLES Test(s) ordered: CULTURE & SUSCEPTIBILITY...... completed: May 10, 2022 * BACTERIOLOGY FINAL REPORT => May 10, 2022 16:3 1 TECH CODE: [id number] CULTURE RESULTS: GROWTH SAME THAT OF ANOTHER CULTURE Comment: FOR SUSCEPTIBILITY REPORT SEE PREVIOUS POSITIVE SAME MB 22 [id number] ( 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 from Anaerobic bottle ) ( Recovered from Aerobic bottle ) Bacteriology Remark(s): THIS REPORT IS FINAL =--=--=--=--=--=--=--=--=--=--=--=--=--= --=--=--=--=--=--=--=--=--=--=--=--=-- Performing Laboratory: Bacteriology Report Performed By: [facility] [CLIA# [id number]] [place] [address] May 08, 2022 03:21 PM LR MICROBIOLOGY REPORT: [facility] Reporting Lab: [facility] [CLIA# [id number]] [place] [address] Accession [UID]: [id number] [[id number]] Receiv ed: May 08, 2022@15:40 Collection sample: BLOOD Collection date: Apr 15:21 Provider: CODIE LEON Comment on specimen: RT ARM, RECEIVED 2 BLOOD CU LTURE BOTTLES Test(s) ordered: CULTURE & SUSCEPTIBILITY...... completed: May 10, 2022 * BACTERIOLOGY FINAL REPORT => May 10, 2022 16:3 1 TECH CODE: [id number] CULTURE RESULTS: GROWTH SAME THAT OF ANOTHER CULTURE Comment: FOR SUSCEPTIBILITY REPORT SEE PREVIOUS POSITIVE SAME MB 22 [id number] ( 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 from Anaerobic bottle ) ( Recovered from Aerobic bottle ) Bacteriology Remark(s): THIS REPORT IS FINAL =--=--=--=--=--=--=--=--=--=--=--=--=--= --=--=--=--=--=--=--=--=--=--=--=--=-- Performing Laboratory: Bacteriology Report Performed By: [facility] [CLIA# [id number]] [place] [address] May 07, 2022 05:30 AM LR MICROBIOLOGY REPORT: [facility] Reporting Lab: [facility] [CLIA# [id number]] [place] [address] Accession [UID]: [id number] [[id number]] Receiv ed: May 07, 2022@01:35 Collection sample: [...] REPORT SEE PREVIOUS POSITIVE SAME MB 22 [id number] ( 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 from Aerobic bottle ) ( Recovered from Anaerobic bottle ) Bacteriology Remark(s): THIS REPORT IS FINAL =--=--=--=--=--=--=--=--=--=--=--=--=--= --=--=--=--=--=--=--=--=--=--=--=--=-- Performing Laboratory: Bacteriology Report Performed By: [facility] [CLIA# [id number]] [place] [address] May 06, 2022 10:51 AM LR MICROBIOLOGY REPORT: [facility] Reporting Lab: [facility] [CLIA# [id number]] [place] [address] Accession [UID]: [id number] [[id number]] Receiv ed: May 06, 2022@11:32 Collection sample: [...] Performed By: [facility] [CLIA# [id number]] [place] [address] May 06, 2022 10:34 AM LR MICROBIOLOGY REPORT: [facility] Reporting Lab: [facility] [CLIA# [id number]] [place] [address] Accession [UID]: [id number] [[id number]] Receiv ed: May 06, 2022@10:51 Collection sample: BLOOD Collection date: Apr 10:34 Provider: MODESTA VILLANUEVA Comment on specimen: RECEIVED 2 BLOOD CULTURE MILAN TTLES RAC Test(s) ordered: CULTURE & SUSCEPTIBILITY...... completed: May 07, 2022 * BACTERIOLOGY FINAL REPORT => May 08, 2022 08:3 0 TECH CODE: [id number] CULTURE RESULTS: STAPHYLOCOCCUS AUREUS METHICILL IN RESISTANT [...] Performed By: [facility] [CLIA# [id number]] [place] [address] May 06, 2022 10:00 AM LR MICROBIOLOGY REPORT: [place] [facility] Reporting Lab: [facility] [CLIA# [id number]] [place] [address] Accession [UID]: [id number] [[id number]] Receiv ed: May 06, 2022@10:41 Collection sample: [...] REPORT SEE PREVIOUS POSITIVE SAME MB 22 [id number] ( 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 from Anaerobic bottle ) ( Recovered from Aerobic bottle ) Bacteriology Remark(s): THIS REPORT IS FINAL =--=--=--=--=--=--=--=--=--=--=--=--=--= --=--=--=--=--=--=--=--=--=--=--=--=-- Performing Laboratory: Bacteriology Report Performed By: [facility] [CLIA# [id number]] [place] [address] Encounter Notes: All associated encounter notes This section contains the clinical notes associated to the Encounter. Date/Time Encounter Note(s) Provider Source May 06, 2022 07:57 PM PHARMACY MEDICATION MGT NOTE: UCHE EVERETT [facility] LOCAL TITLE: PHARMACY PHARMACOKINETICS NOTE STANDARD TITLE: PHARMACY MEDICATION MGT NOTE DATE OF NOTE: MAY 06, 2022@19:57 ENTRY DATE: MAY 06, 2022@19:58:26 AUTHOR: UCHE EVERETT EXP COSIGNER: URGENCY: STATUS: COMPLETED Pharmacokinetic estimate for VANCOMYCIN Intraven ous dosing Visit Type: Chart Review HISTORY: Diagnosis: Sepsis/UTI/Discitis Current status of patient with respect to infec tion, any culture data : o WBC 18.8, fever of 100(F) o Blood and Urine cultures pending o Lactate 3.1, procal 22.3 Patient Age: 86 Height: 73.5 in (03/2021) Weight: 257.4 lb [116.75 kg] (05/06/2022 10:41) CREATININE 1.3 H (05/06/22) Dose weight =95.4 kg No data available for: CYSTATIN C ASSESSMENT: Based on the above, estimated CrCl ~ 46.8 ml/min Estimated volume of distribution ~ 76.3 Liters Estimated elimination half-life of vancomycin ~ 15.2 hours Renal function is assessed to be stable Desired AUC to maximize effi cacy and minimize likelihood of toxicity 400-600 mg* 24hr/L Additional Dosing Considerations: n/a PLAN: Loading dose of 2000mg given in the emergency de partment, followed by a maintenance regimen of 1000m g every 12 hours starting 05/06 @ 2100 for estimated AUC of 573. Pharmacy will continue to manage vancomycin dosi ng and order serum levels if needed. Time spent reviewing chart: 15 minutes Please note that Vancomycin requires Infectio us Disease STAFF approval for use beyond 3 days. Vancomycin CPRS order will automatically on Apr at 12 noon if not ID STAFF approved. /ronni/ UCHE EVERETT Pharmacist Signed: 05/06/2022 20:22
--- OUTSIDE RECORDS SUMMARY | 2022-05-15 09:28 | XMS_ITS | Encounter Summary ---
:1935 Author Organization [facility] Address [address] [place] [address] Support Name Relationship Address Phone WADE LORENZO Unavailable [id number] [place] [address] WADE LORENZO Unavailable [id number] [place] [address] MARILIA MARSHALLA Unavailable [address] [place] [address] GOGEORGE ARACELI Unavailable [address] [place] [address] Insurance Providers: All historical and current Section [...] Chan [place] M[place] Aug 19, [id number] Kristel [facility] (WNR) 2017 8 [id number] [phone] [facility] 1 [place] M[place] Aug 19, [id number] Krist[address] [facility] (WNR[facility]ANT[facility] (WNR) 2016 8 [id number] [phone] [facility] 1 Selected Encounter This section includes the information on record at OR for the Encounter. Date/Time Encounter Type Encounter Reason Provider Source Description May 06, 2022 07:40 Outpatient [facility]MIN [facility] AM Encounter (MASNONCT) IHE Encounter Template Text not used by OR Plan of Treatment: Future Appointments (+ 6 months) and Future Tests (+/- 45 days) The Plan of Treatment section includes future care activities for the [facility] This section includes future appointments and future orders which are active, pending orscheduled.Future Appointments This section includes appointments that were scheduled to occur 6 months from the date of the Encounter, up to a maximum of 20 appointments. The data comes from all [place] treatment facilities. Appointment Date/Time Appointment Type Appointment Facili ty Name May 11, 2022 06:15 PM AMBULATORY - NONE [facility] Jul 23, 2022 08:00 AM AMBULATORY - NEUROLOGY [facility] Active, Pending, and Scheduled Orders [...] The data comes from all [place] treatment [facility]. Test Date/Time Test Type Test Details Facility Name Apr 30, 2022 08:21 Laboratory - Chemistry URINALYSIS URINE WC ON CE [facility] AM Order Apr 30, 2022 08:21 Laboratory - CULTURE & SUSCEPTIBILITY [facility] AM Microbiology Order URINE WC May 06, 2022 12:00 Laboratory - Blood ABO/RH - LAB BLOOD [facility] AM Bank Order May 06, 2022 10:11 Laboratory - Blood TYPE & SCREEN - LAB [facility] AM Bank Order BLOOD WC May 06, 2022 10:27 [facility] AM Medication Order May 06, 2022 10:28 [facility] AM Infusion Order May 06, 2022 10:34 [facility] AM Infusion Order May 06, 2022 10:41 [facility] AM Infusion Order May 06, 2022 12:15 [facility] PM Medication Order May 06, 2022 01:31 [facility] PM Medication Order May 06, 2022 04:49 [facility] PM Medication Order May 07, 2022 01:00 Laboratory - CULTURE & SUSCEPTIBILITY [facility] PM Microbiology Order BLOOD WC ONCE May 11, 2022 09:07 Laboratory - CULTURE & SUSCEPTIBILITY [facility] AM Microbiology Order BLOOD WC May 11, 2022 09:07 Laboratory - CULTURE & SUSCEPTIBILITY COREY [facility] AM Microbiology Order BLOOD WC May 11, 2022 09:38 Laboratory - Chemistry EOSINOPHIL SMEAR,URINE [facility] AM Order URINE WC ONCE May 11, 2022 09:38 Laboratory - Chemistry URINALYSIS URINE WC ON CE [facility] AM Order May 11, 2022 09:38 Laboratory - Chemistry FENA URINE WC ONCE MIN [facility] AM Order Lab Results: +/- [...] Reference Range Comment May 11, 2022 11:13 [facility] FINGERSTICK GLUCOSE Speci men Type: BLOOD AM Comment: Mark casillas Nurse Notified Ordering Provid er: CODIE LEON Report Released Date/Time: May 11, 2022 11:53 AM Reporting Lab: [facility] [address] Performing Lab: [facility] [address] FINGERSTICK GLUCOSE 367 H 70-100 May 11, 2022 07:05 [facility] LIVER FUNCTION TESTS Spec imen Type: PLASMA AM No comment enter ed. Ordering Provid er: CODIE LEON Report Released Date/Time: May 11, 2022 09:08 AM Reporting Lab: [facility] [address] Performing Lab: [facility] [address] BILIRUBIN, TOTAL 1.6 H 0.2-1.2 ALKALINE PHOSPHATASE 102 40-150 ALT/SGPT 42 <55 AST/SGOT 30 <34 GAMMA GTP 52 <64 DIR. BILIRUBIN 1.2 H <0.5 May 11, 2022 07:05 [facility] BASIC METABOLIC Specimen Type: PLASMA AM PANEL+MG No comment enter ed. Ordering Provid er: OG DIAL Report Released Date/Time: May 11, 2022 04:46 AM Reporting Lab: [facility] [address] Performing Lab: [facility] [address] CREATININE 1.6 H 0.7-1.2 UREA NITROGEN 28 H 8-26 GLUCOSE 396 H 70-100 SODIUM 150 H 136-145 POTASSIUM 3.7 3.5-5.1 CHLORIDE 120 H 98-107 CO2 23 22-29 CALCIUM 8.4 8.4-10.2 MAGNESIUM 2.1 1.6-2.6 ANION GAP 7 5-15 CREAT EGFR(CKD-EPI) 42 L >60 May 11, 2022 07:05 AM [facility] CK,TOTAL Specim en Type: PLASMA No comment enter ed. Ordering Provid er: CODIE LEON Report Released Date/Time: May 11, 2022 09:08 AM Reporting Lab: [facility] [address] [facility] [address] Performing Lab: [facility] [address] [facility] [address] CK,TOTAL 16 L 39-208 May 11, 2022 07:05 AM [facility] BNP Specim en Type: PLASMA No comment enter ed. Ordering Provid er: CODIE LEON Report Released Date/Time: May 11, 2022 09:15 AM Reporting Lab: [facility] [address] [facility] [address] Performing Lab: [facility] [address] I [facility] [address] BNP 59 <99 May 11, 2022 07:05 AM [facility] CBC Specim en Type: BLOOD No comment enter ed. Ordering Provid er: OG DIAL Report Released Date/Time: May 11, 2022 04:46 AM Reporting Lab: [facility] [address] [facility] [address] Performing Lab: [facility] I [facility] [address] WBC 15.93 H 4.0-11.0 RBC 3.60 L 4.6-6.2 HGB 11.2 L 13.5-17.9 HCT 35.3 L 41-54 MCV 98.1 80-100 MCH 31.1 27-33 MCHC 31.7 L 32.0-37.5 PLT 231 150-400 MPV 11.2 H 7.4-10.4 RDW 15.2 H 11.5-14.5 May 11, 2022 06:14 [facility] FINGERSTICK GLUCOSE Speci men Type: BLOOD AM Comment: Mark casillas Nurse Notified Ordering Provid er: CODIE LEON Report Released Date/Time: May 11, 2022 06:42 AM Reporting Lab: [facility] [address] [facility] [address] Performing Lab: [facility] [address] [facility] [address] FINGERSTICK GLUCOSE 345 H 70-100 May 11, 2022 02:24 [facility] FINGERSTICK GLUCOSE Speci men Type: BLOOD AM Comment: Mark casillas Ordering Provid er: CODIE LEON Report Released Date/Time: May 11, 2022 02:44 AM Reporting Lab: [facility] [address] [facility] [address] Performing Lab: [facility] [address] [facility] [address] FINGERSTICK GLUCOSE 375 H 70-100 May 10, 2022 08:38 [facility] FINGERSTICK GLUCOSE Speci men Type: BLOOD PM Comment: Mark casillas Ordering Provid er: CODIE LEON Report Released Date/Time: May 11, 2022 12:31 AM Reporting Lab: [facility] [address] [facility] [address] Performing Lab: [facility] [address] [facility] [address] FINGERSTICK GLUCOSE 346 H 70-100 May 10, 2022 05:05 [facility] FINGERSTICK GLUCOSE Speci men Type: BLOOD PM Comment: Mark casillas Nurse Notified Ordering Provid er: CODIE LEON Report Released Date/Time: May 10, 2022 11:50 PM Reporting Lab: [facility] [address] [facility] [address] Performing Lab: [facility] [address] [facility] [address] FINGERSTICK GLUCOSE 245 H 70-100 May 10, 2022 02:00 [facility] VANCOMYCIN (TROUGH) Speci men Type: PLASMA PM No comment enter ed. Ordering Provid er: CODIE LEON Report Released Date/Time: May 11, 2022 01:34 AM Reporting Lab: [facility] [address] [facility] [address] Performing Lab: [facility] [address] [facility] [address] VANCOMYCIN (TROUGH) 31.8 H 10.0-15.0 May 10, 2022 [facility] BASIC METABOLIC Specimen Typ e: PLASMA 02:00 PM PANEL+MG No comment enter ed. Ordering Provid er: CODIE LEON Report Released Date/Time: May 11, 2022 01:34 AM Reporting Lab: [facility] [address] Performing Lab: [facility] [address] CREATININE 1.1 .7-1.2 UREA NITROGEN 22 8-26 GLUCOSE 279 H 70-100 SODIUM 150 H 136-145 POTASSIUM 3.2 L 3.5-5.1 CHLORIDE 116 H 98-107 CO2 23 22-29 CALCIUM 8.5 8.4-10.2 MAGNESIUM 2.0 1.6-2.6 ANION GAP 11 5-15 CREAT EGFR(CKD-EPI) 65 >60 May 10, 2022 01:20 PM [facility] CBC & DIFF Specim en Type: BLOOD Comment: Automa nola Differential Performed Ordering Provid er: MD ESTEBAN Report Released Date/Time: May 10, 2022 08:52 PM Reporting Lab: [facility] [address] Performing Lab: [facility] [address] WBC 16.24 H 4.0-11.0 RBC 3.76 L [...] 0.28 H 0-0.1 May 10, 2022 11:07 [facility] FINGERSTICK GLUCOSE Speci men Type: BLOOD AM Comment: Mark casillas Nurse Notified Ordering Provid er: CODIE LEON Report Released Date/Time: May 11, 2022 12:31 AM Reporting Lab: [facility] [address] [facility] [address] Performing Lab: [facility] [address] [facility] [address] FINGERSTICK GLUCOSE 253 H 70-100 May 10, 2022 06:16 [facility] FINGERSTICK GLUCOSE Speci men Type: BLOOD AM Comment: Mark casillas Nurse Notified Ordering Provid er: CODIE LEON Report Released Date/Time: May 10, 2022 11:50 PM Reporting Lab: [facility] [address] [facility] [address] Performing Lab: [facility] [address] [facility] [address] FINGERSTICK GLUCOSE 271 H 70-100 May 09, 2022 09:07 [facility] FINGERSTICK GLUCOSE Speci men Type: BLOOD PM Comment: Mark casillas Ordering Provid er: CODIE LEON Report Released Date/Time: May 10, 2022 11:50 PM Reporting Lab: [facility] [address] [facility] [address] Performing Lab: [facility] [address] [facility] [address] FINGERSTICK GLUCOSE 209 H 70-100 May 09, 2022 05:33 [facility] FINGERSTICK GLUCOSE Speci men Type: BLOOD PM Comment: Mark casillas Nurse Notified Ordering Provi violeta: CODIE LEON Report Released Date/Time: May 09, 2022 05:53 PM Reporting Lab: [facility] [address] [facility] [address] Performing Lab: [facility] [address] [facility] [address] FINGERSTICK GLUCOSE 251 H 70-100 May 09, 2022 02:09 [facility] VANCOMYCIN (PEAK) Specime n Type: SERUM PM No comment enter ed. Ordering Provid er: AMARIS DE JESUS Report Released Date/Time: May 09, 2022 09:33 AM Reporting Lab: [facility] [address] [facility] [address] Performing Lab: [facility] [address] [facility] [address] VANCOMYCIN (PEAK) 24.2 20.0-40.0 May 09, 2022 11:19 [facility] FINGERSTICK GLUCOSE Speci men Type: BLOOD AM Comment: Mark casillas Nurse Notified Ordering Provid er: CODIE LEON Report Released Date/Time: May 09, 2022 11:38 AM Reporting Lab: [facility] [address] [facility] [address] Performing Lab: [facility] [address] [facility] [address] FINGERSTICK GLUCOSE 240 H 70-100 May 09, 2022 08:13 [facility] VANCOMYCIN (TROUGH) Speci men Type: SERUM AM No comment enter ed. Ordering Provid er: AMARIS DE JESUS Report Released Date/Time: May 08, 2022 11:14 AM Reporting Lab: [facility] [address] [facility] [address] Performing Lab: [facility] [address] [facility] [address] VANCOMYCIN (TROUGH) 16.1 H 10.0-15.0 May 09, 2022 05:33 AM [facility] CBC & DIFF Specim en Type: BLOOD Comment: Automa nola Differential Performed Ordering Provid er: CODIE LEON Report Released Date/Time: May 08, 2022 05:27 PM Reporting Lab: [facility] [address] [facility] [address] Performing Lab: [facility] [address] [facility] [address] WBC 14.92 H 4.0-11.0 RBC 3.41 L [...] GRAN 0.16 H 0-0.1 May 09, 2022 [facility] COMPREHENSIVE METABOLIC Spec imen Type: PLASMA 05:32 AM PANEL+MG No comment enter ed. Ordering Provid er: CODIE LEON Report Released Date/Time: May 08, 2022 05:27 PM Reporting Lab: [facility] [address] [facility] [address] Performing Lab: [facility] [address] [facility] [address] CREATININE 1.2 0.7-1.2 UREA NITROGEN 25 8-26 [...] 59 L >60 May 09, 2022 05:16 [facility] FINGERSTICK GLUCOSE Speci men Type: BLOOD AM Comment: Mark casillas Nurse Notified Ordering Provid er: CODIE LEON Report Released Date/Time: May 09, 2022 07:27 AM Reporting Lab: [facility] [address] [facility] [address] Performing Lab: [facility] [address] [facility] [address] FINGERSTICK GLUCOSE 295 H 70-100 May 08, 2022 09:32 PM [facility] EXTRA MINT TUBE Specim en Type: PLASMA No comment enter ed. Ordering Provid er: MD ESTEBAN Report Released Date/Time: May 08, 2022 09:32 PM Reporting Lab: [facility] [address] [facility] [address] Performing Lab: [facility] [address] [facility] [address] EXTRA MINT TUBE RECEIVED May 08, 2022 09:32 PM [facility] EXTRA PURPLE TUBE Spec imen Type: BLOOD No comment enter ed. Ordering Provid er: MD ESTEBAN Report Released Date/Time: May 08, 2022 09:32 PM Reporting Lab: [facility] [address] [facility] [address] Performing Lab: [facility] [address] [facility] [address] EXTRA PURPLE TUBE RECEIVED May 08, 2022 09:32 [facility] EXTRA GOLD GEL TUBE Speci men Type: SERUM PM No comment enter ed. Ordering Provid er: MD ESTEBAN Report Released Date/Time: May 08, 2022 09:32 PM Reporting Lab: [facility] [address] [facility] [address] Performing Lab: [facility] [address] [facility] [address] EXTRA GOLD GEL TUBE RECEIVED May 08, 2022 09:32 PM [facility] EXTRA BLUE TUBE Specim en Type: PLASMA No comment enter ed. Ordering Provid er: MD ESTEBAN Report Released Date/Time: May 08, 2022 09:32 PM Reporting Lab: [facility] [address] [facility] [address] Performing Lab: [facility] [address] [facility] [address] EXTRA BLUE TUBE RECEIVED May 08, 2022 09:32 PM [facility] EXTRA BRASWELL TUBE Specim en Type: PLASMA No comment enter ed. Ordering Provid er: MD ESTEBAN Report Released Date/Time: May 08, 2022 09:37 PM Reporting Lab: [facility] [address] [facility] [address] Performing Lab: [facility] [address] [facility] [address] EXTRA BRASWELL TUBE RECEIVED May 08, 2022 09:32 PM [facility] LACTIC ACID Specim en Type: PLASMA No comment enter ed. Ordering Provid er: OG DIAL Report Released Date/Time: May 08, 2022 09:49 PM Reporting Lab: [facility] [address] [facility] [address] Performing Lab: [facility] [address] [facility] [address] LACTIC ACID 2.5 H 0.5-2.2 May 08, 2022 09:32 PM [facility] BNP Specim en Type: PLASMA No comment enter ed. Ordering Provid er: OG DIAL Report Released Date/Time: May 08, 2022 09:50 PM Reporting Lab: [facility] [address] [facility] [address] Performing Lab: [facility] [address] [facility] [address] BNP 897 H <99 May 08, 2022 09:32 PM [facility] CBC Specim en Type: BLOOD No comment enter ed. Ordering Provid er: OG DIAL Report Released Date/Time: May 08, 2022 09:50 PM Reporting Lab: [facility] [address] Performing Lab: [facility] [address] WBC 18.54 H 4.0-11.0 RBC 3.68 L 4.6-6.2 HGB 11.5 L 13.5-17.9 HCT 35.1 L 41-54 MCV 95.4 80-100 MCH 31.3 27-33 MCHC 32.8 32.0-37.5 PLT 221 150-400 MPV 11.1 H 7.4-10.4 RDW 14.9 H 11.5-14.5 May 08, 2022 09:32 PM [facility] BLOOD GASES Specim en Type: VENOUS BLOOD Comment: O2 THE RAPY = 3L PM Ordering Provid er: OG DIAL Report Released Date/Time: May 08, 2022 09:50 PM Reporting Lab: [facility] [address] Performing Lab: [facility] [address] PH 7.36 7.33-7.43 PCO2 47 41-51 BICARBONATE 24.4 21.0-30.0 PO2 31 L 35-40 OXYGEN SATURATION 54.7 L 70.0-75.0 PH(TEMP CORRECTED) 7.37 7.33-7.43 PCO2(TEMP CORRECTED) 46 41-51 PO2(TEMP CORRECTED) 31 L 35-40 PATIENT TEMPERATURE 36.7 May 08, 2022 [facility] COMPREHENSIVE METABOLIC Spec imen Type: PLASMA 09:32 PM PANEL+MG No comment enter ed. Ordering Provid er: OG DIAL Report Released Date/Time: May 08, 2022 09:50 PM Reporting Lab: [facility] [address] Performing Lab: [facility] [address] CREATININE 1.3 H 0.7-1.2 UREA NITROGEN 26 [...] 54 L >60 May 08, 2022 08:27 [facility] FINGERSTICK GLUCOSE Speci men Type: BLOOD PM Comment: Mark casillas Nurse Notified Ordering Provid er: CODIE LEON Report Released Date/Time: May 08, 2022 08:55 PM Reporting Lab: [facility] [address] [facility] [address] Performing Lab: [facility] [address] [facility] [address] FINGERSTICK GLUCOSE 272 H 70-100 May 08, 2022 06:56 [facility] FINGERSTICK GLUCOSE Speci men Type: BLOOD PM Comment: Mark casillas Ordering Provid er: CODIE LEON Report Released Date/Time: May 08, 2022 07:08 PM Reporting Lab: [facility] [address] [facility] [address] Performing Lab: [facility] [address] [facility] [address] FINGERSTICK GLUCOSE 262 H 70-100 May 08, 2022 04:50 [facility] FINGERSTICK GLUCOSE Speci men Type: BLOOD PM Comment: Nurse Notified Ordering Provid er: CODIE LEON Report Released Date/Time: May 08, 2022 05:14 PM Reporting Lab: [facility] [address] [facility] [address] Performing Lab: [facility] [address] [facility] [address] FINGERSTICK GLUCOSE 330 H 70-100 May 08, 2022 11:21 [facility] FINGERSTICK GLUCOSE Speci men Type: BLOOD AM Comment: Mark casillas Nurse Notified Ordering Provid er: CODIE LEON Report Released Date/Time: May 08, 2022 11:51 AM Reporting Lab: [facility] [address] [facility] [address] Performing Lab: [facility] [address] [facility] [address] FINGERSTICK GLUCOSE 231 H 70-100 May 08, 2022 07:25 AM [facility] CBC & DIFF Specim en Type: BLOOD Comment: Automa nola Differential Performed Ordering Provid er: BETO AYALA Report Released Date/Time: May 07, 2022 12:28 PM Reporting Lab: [facility] [address] [facility] [address] Performing Lab: [facility] [address] [facility] [address] WBC 16.29 H 4.0-11.0 RBC 3.38 L [...] GRAN 0.26 H 0-0.1 May 08, 2022 [facility] PROTHROMBIN TIME/INR Specime n Type: PLASMA 07:25 AM No comment enter ed. Ordering Provid er: BETO AYALA Report Released Date/Time: May 07, 2022 12:28 PM Reporting Lab: [facility] [address] [facility] [address] Performing Lab: [facility] [address] .INR 1.2 H 0.8-1.1 .PT 14.2 H 9.4-12.5 May 08, 2022 [facility] COMPREHENSIVE METABOLIC Spec imen Type: PLASMA 07:25 AM PANEL+MG No comment enter ed. Ordering Provid er: BETO AYALA Report Released Date/Time: May 07, 2022 12:28 PM Reporting Lab: [facility] [address] [facility] [address] Performing Lab: [facility] [address] [facility] [address] CREATININE 1.1 0.7-1.2 UREA NITROGEN 27 H [...] EGFR(CKD-EPI) 65 >60 May 08, 2022 06:53 [facility] FINGERSTICK GLUCOSE Speci men Type: BLOOD AM Comment: Mark casillas Ordering Provid er: CODIE LEON Report Released Date/Time: May 08, 2022 07:18 AM Reporting Lab: [facility] [address] [facility] [address] Performing Lab: [facility] [address] [facility] [address] FINGERSTICK GLUCOSE 276 H 70-100 May 07, 2022 08:36 [facility] FINGERSTICK GLUCOSE Speci men Type: BLOOD PM Comment: Nurse Notified Ordering Provid er: CODIE LEON Report Released Date/Time: May 08, 2022 12:29 AM Reporting Lab: [facility] [address] [facility] [address] Performing Lab: [facility] [address] [facility] [address] FINGERSTICK GLUCOSE 282 H 70-100 May 07, 2022 07:04 PM [facility] LACTIC ACID Specim en Type: PLASMA No comment enter ed. Ordering Provid er: BETO AYALA Report Released Date/Time: May 07, 2022 06:28 PM Reporting Lab: [facility] [address] [facility] [address] Performing Lab: [facility] [address] [facility] [address] LACTIC ACID 2.0 0.5-2.2 May 07, 2022 04:46 [facility] FINGERSTICK GLUCOSE Speci men Type: BLOOD PM Comment: Nurse Notified Ordering Provid er: BETO AYALA Report Released Date/Time: May 07, 2022 05:00 PM Reporting Lab: [facility] [address] [facility] [id number] Performing Lab: [facility] [address] [facility] [address] FINGERSTICK GLUCOSE 274 H 70-100 May 07, 2022 12:47 [facility] FINGERSTICK GLUCOSE Speci men Type: BLOOD PM Comment: Mark casillas Nurse Notified Ordering Provid er: BETO AYALA Report Released Date/Time: May 07, 2022 05:32 PM Reporting Lab: [facility] [address] [facility] [address] Performing Lab: [facility] [address] [facility] [facility] [address] FINGERSTICK GLUCOSE 309 H 70-100 May 07, 2022 06:35 [facility] FINGERSTICK GLUCOSE Speci men Type: BLOOD AM Comment: Mark casillas Nurse Notified Ordering Provid er: GAYLA DOMINGUEZ Report Released Date/Time: May 07, 2022 06:46 AM Reporting Lab: [facility] [address] [facility] [address] Performing Lab: [facility] [address] [facility] [address] FINGERSTICK GLUCOSE 352 H 70-100 May 07, 2022 06:15 AM [facility] ALBUMIN Specim en Type: PLASMA No comment enter ed. Ordering Provid er: GAYLA DOMINGUEZ Report Released Date/Time: May 06, 2022 06:33 PM Reporting Lab: [facility] [address] [facility] [address] Performing Lab: [facility] [address] [facility] [address] ALBUMIN 3.0 L 3.5-5.2 May 07, 2022 [facility] COMPREHENSIVE METABOLIC Spec imen Type: PLASMA 06:15 AM PANEL+MG No comment enter ed. Ordering Provid er: GAYLA DOMINGUEZ Report Released Date/Time: May 06, 2022 09:11 PM Reporting Lab: [facility] [address] [facility] [address] Performing Lab: [facility] [address] [facility] [address] CREATININE 1.2 0.7-1.2 UREA NITROGEN 25 8-26 [...] L >60 May 07, 2022 06:15 AM [facility] CBC & DIFF Specim en Type: BLOOD Comment: Manual Differential Performed Ordering Provid er: GAYLA DOMINGUEZ Report Released Date/Time: May 06, 2022 09:11 PM Reporting Lab: [facility] [address] [facility] [address] Performing Lab: [facility] [address] WBC 20.25 H 4.0-11.0 RBC 3.54 L [...] NORMOCYTIC, NORMOCHROMIC May 07, 2022 12:19 AM [facility] LACTIC ACID Specim en Type: PLASMA No comment enter ed. Ordering Provid er: GAYLA DOMINGUEZ Report Released Date/Time: May 06, 2022 07:13 PM Reporting Lab: [facility] [address] I [facility] [address] Performing Lab: [facility] [address] LACTIC ACID 2.7 H 0.5-2.2 May 06, 2022 10:45 [facility] FINGERSTICK GLUCOSE Speci men Type: BLOOD PM Comment: Save R esult Nurse Notified Ordering Provid er: GAYLA DOMINGUEZ Report Released Date/Time: May 07, 2022 12:08 AM Reporting Lab: [facility] [address] [facility] [address] Performing Lab: [facility] [address] [facility] [address] FINGERSTICK GLUCOSE 320 H 70-100 May 06, 2022 06:53 [facility] MRSA SURVL NARES Specimen Type: NARES PM DNA No comment enter ed. Ordering Provid er: GAYLA DOMINGUEZ Report Released Date/Time: May 06, 2022 06:33 PM Reporting Lab: [facility] [address] [facility] [address] Performing Lab: [facility] [address] [facility] [address] MRSA SURVL NARES DNA POSITIVE HH Negative May 06, 2022 06:51 PM [facility] LACTIC ACID Specim en Type: PLASMA No comment enter ed. Ordering Provid er: GAYLA DOMINGUEZ Report Released Date/Time: May 06, 2022 06:04 PM Reporting Lab: [facility] [address] [facility] [address] Performing Lab: [facility] [address] [facility] [address] LACTIC ACID 3.1 H 0.5-2.2 May 06, 2022 06:51 [facility] CARDIAC TROPONIN I Specim en Type: PLASMA PM No comment enter ed. Ordering Provid er: GAYLA DOMINGUEZ Report Released Date/Time: May 06, 2022 06:05 PM Reporting Lab: [facility] [address] [facility] [address] Performing Lab: [facility] [address] [facility] [address] CARDIAC TROPONIN I <0.028 <0.028 May 06, 2022 06:51 [facility] EXTRA GOLD GEL TUBE Speci men Type: SERUM PM No comment enter ed. Ordering Provid er: GAYLA DOMINGUEZ Report Released Date/Time: May 06, 2022 06:52 PM Reporting Lab: [facility] [address] [facility] [address] Performing Lab: [facility] [address] [facility] [address] EXTRA GOLD GEL TUBE RECEIVED May 06, 2022 06:51 [facility] C-REACTIVE PROTEIN Specim en Type: PLASMA PM No comment enter ed. Ordering Provid er: GAYLA DOMINGUEZ Report Released Date/Time: May 06, 2022 09:29 PM Reporting Lab: [facility] [address] Performing Lab: [facility] [address] [facility] [address] C-REACTIVE PROTEIN 392.40 H <5.00 May 06, 2022 10:51 AM [facility] URINALYSIS Specim en Type: URINE No comment enter ed. Ordering Provid er: MODESTA VILLANUEVA Report Released Date/Time: May 06, 2022 10:11 AM Reporting Lab: [facility] [address] Performing Lab: [facility] [address] URINE COLOR YELLOW SPECIFIC GRAVITY 1.020 1.003-1.035 [...] ESTERASE 500 NEGATIVE May 06, 2022 10:24 [facility] COVID-19 DIAGNOSTIC Speci men Type: NASOPHARYNGEAL AM PANEL (CEPHEID) Comment: Cephei d GeneXpert (618) Ordering Provid er: MODESTA VILLANUEVA Report Released Date/Time: May 06, 2022 10:11 AM Reporting Lab: [facility] [address] [facility] [address] Performing Lab: [facility] [address] COVID-19 (CEPHEID) Not Detected Not Dete cted May 06, 2022 10:20 AM [facility] POC ABG/LACTATE Specim en Type: VENOUS BLOOD No comment enter ed. Ordering Provid er: MODESTA VILLANUEVA Report Released Date/Time: May 06, 2022 10:22 AM Reporting Lab: [facility] [address] Performing Lab: [facility] [address] POC PH 7.410 7.31-7.41 POC PCO2 28.9 L 35.00-45.00 POC PO2 82 H 35.0-40.0 POC TCO2 19 L 24.0-29.0 POC HCO3 18.3 L 23.0-28.0 POC BE ECT -6 L -2 POC SO2 96 H 70-75 POC LACTATE 3.62 0.90-1.70 May 06, 2022 10:00 AM [facility] PHOSPHORUS Specim en Type: PLASMA No comment enter ed. Ordering Provid er: MODESTA VILLANUEVA Report Released Date/Time: May 06, 2022 10:11 AM Reporting Lab: [facility] [address] [facility] [address] Performing Lab: [facility] [address] [facility] [address] PHOSPHORUS 2.5 2.3-4.7 May 06, 2022 10:00 [facility] ACT PART THROMBO TIME Spe cimen Type: PLASMA AM No comment enter ed. Ordering Provid er: MODESTA VILLANUEVA Report Released Date/Time: May 06, 2022 10:11 AM Reporting Lab: [facility] [address] [facility] [address] Performing Lab: [facility] [address] [facility] [address] APTT 37.8 H 25.1-36.5 May 06, 2022 10:00 [facility] PROTHROMBIN TIME/INR Spec imen Type: PLASMA AM No comment enter ed. Ordering Provid er: MODESTA VILLANUEVA Report Released Date/Time: May 06, 2022 10:11 AM Reporting Lab: [facility] [address] [facility] [address] Performing Lab: [facility] [address] [facility] [address] .INR 2.5 H 0.8-1.1 .PT 29.2 H 9.4-12.5 May 06, 2022 10:00 [facility] CARDIAC TROPONIN I Specim en Type: PLASMA AM Comment: Critic al Value Reported To: BROOKS COTE 05-06-2022 @1053 BY MBB. Critical value report confirmed. Ordering Provid er: MODESTA VILLANUEVA Report Released Date/Time: May 06, 2022 10:11 AM Reporting Lab: [facility] [address] [facility] [address] Performing Lab: [facility] [address] [facility] [address] CARDIAC TROPONIN I 0.035 HH <0.028 May 06, 2022 10:00 AM [facility] PROCALCITONIN Specim en Type: PLASMA No comment enter ed. Ordering Provid er: MODESTA VILLANUEVA Report Released Date/Time: May 06, 2022 10:11 AM Reporting Lab: [facility] [address] [facility] [address] Performing Lab: [facility] [address] [facility] [address] PROCALCITONIN 22.29 H <0.09 May 06, 2022 10:00 AM [facility] LIPASE Specim en Type: PLASMA No comment enter ed. Ordering Provid er: MODESTA VILLANUEVA Report Released Date/Time: May 06, 2022 10:11 AM Reporting Lab: [facility] [address] [facility] [address] Performing Lab: [facility] [address] [facility] [address] LIPASE <4 <60 May 06, 2022 [facility] COMPREHENSIVE METABOLIC Spec imen Type: PLASMA 10:00 AM PANEL+MG Comment: Manual Differential Performed Ordering Provid er: MODESTA VILLANUEVA Report Released Date/Time: May 06, 2022 10:11 AM Reporting Lab: [facility] [address] [facility] [address] Performing Lab: [facility] [address] [facility] [address] CREATININE 1.3 H 0.7-1.2 UREA NITROGEN 25 [...] 54 L >60 May 06, 2022 10:00 [facility] EXTRA GOLD GEL TUBE Speci men Type: SERUM AM No comment enter ed. Ordering Provid er: LINNEA RAND Report Released Date/Time: May 06, 2022 10:25 AM Reporting Lab: [facility] [address] [facility] [address] Performing Lab: [facility] [address] [facility] [address] EXTRA GOLD GEL TUBE RECEIVED May 06, 2022 10:00 AM [facility] CBC & DIFF Specim en Type: BLOOD Comment: Manual Differential Performed Ordering Provid er: MODESTA VILLANUEVA Report Released Date/Time: May 06, 2022 10:11 AM Reporting Lab: [facility] [address] [facility] [address] Performing Lab: [facility] [address] [facility] [address] WBC 18.82 H 4.0-11.0 RBC 3.70 L [...] .RBC MORPHOLOGY PRESENT May 06, 2022 09:46 [facility] FINGERSTICK GLUCOSE Speci men Type: BLOOD AM Comment: Mark casillas Nurse Notified Ordering Provid er: MODESTA VILLANUEVA Report Released Date/Time: May 06, 2022 09:59 AM Reporting Lab: [facility] [address] [facility] [address] Performing Lab: [facility] [address] [facility] [address] FINGERSTICK GLUCOSE 369 H 70-100 Apr 30, 2022 09:17 AM [facility] CBC Specim en Type: BLOOD No comment enter ed. Ordering Provid er: BILL ROONEY Report Released Date/Time: Apr 30, 2022 08:21 AM Reporting Lab: [facility] [address] [facility] [address] Performing Lab: [facility] [address] [facility] [address] WBC 10.40 4.0-11.0 RBC 3.96 L 4.6-6.2 HGB 12.3 L 13.5-17.9 HCT 37.8 L 41-54 MCV 95.5 80-100 MCH 31.1 27-33 MCHC 32.5 32.0-37.5 PLT 286 150-400 MPV 10.1 7.4-10.4 RDW 14.6 H 11.5-14.5 Apr 30, 2022 [facility] BASIC METABOLIC Specimen Typ e: PLASMA 09:17 AM PANEL+MG No comment enter ed. Ordering Provid er: BILL ROONEY Report Released Date/Time: Apr 30, 2022 08:21 AM Reporting Lab: [facility] [address] [facility] [address] Performing Lab: [facility] [address] CREATININE 1.2 0.7-1.2 UREA NITROGEN 26 8-26 [...] % 99 [place] 2021 10:00 /min mm[Hg] [facility] Apr 18, 100 [facility] PM [facility] May 06 101.2 F 84 117/56 22 /min 10 [place] 2021 11:22 /min mm[Hg] [facility] AM [facility] May 06, 257.4 34 [place] 2021 10:41 lb [facility] Social History: Smoking Status (Most current) and [...] 09:30 AM VA-TOBACCO NEVER USED [facility] [facility] Tobacco Use History This section includes a history of the smoking, or tobacco- related health factors, that were collected on or before the date of the Encounter. The data comes from the [place] facility where the Encounter took place. Date/Time Smoking Status/Tobacco Use Comment Xavi chanel Mar 22, 2021 07:45 AM VA-TOBACCO NEVER USED [place] [facility] Oct 02, 2019 10:02 AM VA-TOBACCO NEVER USED [place] [facility] May 21, 2018 09:05 AM VA-TOBACCO NEVER USED [place] [facility] December 25, 2017 06:14 PM INPT NO TOBACCO USE IN LAST 30 DAYS [facility] Oct 01, 2017 07:34 AM LIFETIME NON-TOBACCO USER [facility] Sep 28, 2016 08:44 AM LIFETIME NON-TOBACCO USER [facility] Oct 14, 2015 07:52 AM LIFETIME NON-TOBACCO USER [facility] Oct 11, 2014 07:59 AM LIFETIME NON-TOBACCO USER [facility] January 15, 2007 07:55 AM LIFETIME NON-TOBACCO USER [facility] Advance Directives: All historical and current Section Date Range: From patient's date of to the date document was created. This section includes ALL of a patient's completed or amended OR Advance and Rescinded Directives. The entries below indicate that a directive exists for the patient, but an actual copy is not included with this document. The data comes from all [facility]. Date Advance Directives Provider Source Apr 18, 2018 ADVANCE DIRECTIVE LARISSA SIGALA [facility] Apr 18, 2018 ADVANCE DIRECTIVE DISCUSSION LARISSA SIGALA [facility] December 23, 2017 CLINICAL WARNING FARHAT SCHMID [facility] May 11, 2003 ADVANCE DIRECTIVE BERT CASILLAS [facility] Radiology Reports: +/- 30 days [...] 2022 09:46 CHEST 1 VIEW: SONJA OVALLES [facility] LUISANA EDDY [id number] -1935 M Exm Date: MAY 11, 2022@09:46 Req Phys: CODIE LEON Loc: OP Unknown /05-13-2022@05:05 Img Loc: MAIN X-RAY Service: PRIMARY CARE - MED OFFICE (Case [id number] COMPLETE) CHEST 1 VIEW (RAD Detailed) CPT:59677 Proc Modifiers : PORTABLE EXAM Reason for Study: resp distress Clinical History: [place] IS NOT under investigation for COVID-19 or is COVID-19 negative Respiratory distress Responsible provider name and phone number to notify for critical findings if other than u ser placing the order and pager listed below: User placing orde rs pager: [phone] cell LAST CREATININE 1.6 H (05/11/22) Report Status: Verified Date Reported: MAY 11, 2022 Date Verified: MAY 11, 2022 Installation Specialist E-Sig:/ES/SONJA OVALLES MD Report: CHEST 1 [...] Primary Interpreting Staff: SONJA OVALLES MD, RADIOLOGIST (Installation Specialist) /[facility] May 10, 2022 03:49 CT HEAD (P): RADIOLOGY,OUTSIDE [facility] PM LUISANA EDDY [id number] -1935 M SERVICE Exm Date: MAY 10, 2022@15:49 Req Phys: CODIE LEON Loc: OP Unknown /05-13-2022@05:05 [facility] [place]: [place] IMAGING Service: PRIMARY CARE - MED OFFICE (Case [id number] COMPLETE) CT HEAD/BRAIN W/O CONTRAST (CT Detailed) CPT:56904 Reason for Study: CHANGE IN MENTAL STATUS Clinical History: CHANGE IN MENTAL STATUS. ORDER ADMINISTRATIVELY ENTERED FOLLOWING SYSTEM OUTAGE. Report Status: Verified Date Reported: MAY 10, 2022 Date Verified: MAY 10, 2022 Installation Specialist E-Sig: Report: CT HEAD/BRAIN W/O CONTRAST [PRINTSET] HISTORY: Change in mental status. COMPARISON: CT from 05/07/2022. TECHNIQUE: Contiguous axial CT images from the level of the skull base through the skull apex, with coronal and s agittal reformats, performed at the local OR facility. 321 images were received by the [place] National Teleradiology Program (NTP) for interpretation. RADIATION [...] study. READING PHYSICIAN: Akash Mccoy M.D. -[phone] 05/10/2022 17:35 PDT [facility] National Teleradiology Program [phone] (For Medical Practitioner Use Only ) Attention Patients / Veterans: If you have ques tions or concerns about these test results, please contact your [facility] provider or primary care team. Primary Interpreting Staff: RADIOLOGY,OUTSIDE SERVICE, Staff Physician / May 08, 2022 07:45 CT T-SPINE (P): RADIOLOGY,OUTSIDE [facility] PM LUISANA EDDY [id number] -1935 M SERVICE Exm Date: MAY 08, 2022@19:45 Req Phys: CODIE LEON E Pat Loc: OP Unknown /05-13-2022@05:05 Img Loc: CT IMAGING Service: PRIMARY CARE - MED OFFICE (Case [id number] COMPLETE) CT SPINE THORACIC W/O CONTR AST (CT Detailed) CPT:82853 Reason for Study: mrsa bacteremia, spinal surge ry - r/o abscess or discitis Clinical History: IS NOT under investigation for COVID-19 or is COVID-19 negative Defer to radiologist for final CT protocol. Responsible provider name and phone number to n otify for critical findings if other than user placing the order a nd pager listed below: User placing orders pager: [phone] LAST 3: Collection DT Specimen Test Name [...] GFR (eGF 44 L Ref: >=60 Allergies: ([place] only) SIMVASTATIN (Feb 29, 2004) CEPHALEXIN (Mar 01, 2004) Report Status: Verified Date Reported: MAY 08, 2022 Date Verified: MAY 08, 2022 Installation Specialist E-Sig: Report: CT SPINE THORACIC W/O CONTRAST [PRINTSET] HISTORY:MRSA bacteremia NUMBER OF IMAGES:1151 COMPARISON: Correlation with images from recent CT abdomen and pelvis May 06, 2022 TECHNIQUE: A non contrast CT of the thoracic sp ine was performed at the local OR. [facility] [...] thoracic level. READING PHYSICIAN: Luisana Webb MD -[id number] [phone] 05/08/2022 19:20 PDT [facility] National Teleradiology Program [phone] (For Medical Practitioner Use Only ) Attention Patients / Veterans: If you have ques tions or concerns about these test results, please contact your o [facility] provider or primary care team. Primary Interpreting Staff: RADIOLOGY,OUTSIDE SERVICE, Staff Physician / May 08, 2022 04:48 CHEST 1 VIEW: RADIOLOGY,OUTSIDE [facility] PM LUISANA EDDY [id number] -1935 M SERVICE Exm Date: MAY 08, 2022@16:48 Req Phys: CODIE LEON Loc: OP Unknown /05-13-2022@05:05 Img Loc: MAIN X-RAY Service: PRIMARY CARE - MED OFFICE (Case [id number] COMPLETE) CHEST 1 VIEW (RAD Detailed) CPT:44599 Proc Modifiers : PORTABLE EXAM Reason for Study: dyspnea Clinical History: [place] IS NOT under investigation for COVID-19 or is COVID-19 negative acute worsening of dyspnea Responsible provider name and phone number to notify for critical findings if other than user placing the order and pager listed below: User placing orders pager: [phone] malini cell [phone] LAST CREATININE 1.1 (05/08/22) Report Status: Verified Date Reported: MAY 08, 2022 Date Verified: MAY 08, 2022 Installation Specialist E-Sig: Report: CHEST 1 VIEW HISTORY: dyspnea COMPARISON: 05/06/2022 TECHNIQUE: Frontal view(s) of the chest, submit nola to the [place] National Teleradiology Program (NTP) for interp retation. FINDINGS: Reduced lung volumes. Progressive cardiomegaly, and vascular congestion as well as diffuse interstitial prom inence with probable small effusions. Impression: Expiratory exam with findings of CHF and mild e sanat READING PHYSICIAN: Nghia Menjivar M.D. -[id number] 10 05/08/2022 18:57 EDT [facility] National Teleradiology Program [phone] (For Medical Practitioner Use Only ) Attention Patients / Veterans: If you have ques tions or concerns about these test results, please contact your o rdering provider or primary care team. Primary Interpreting Staff: RADIOLOGY,OUTSIDE SERVICE, Staff Physician / May 07, 2022 10:29 CT HEAD (P): COLLINSHANI GARLAND [facility] AM LUISANA EDDY [id number] -1935 M Exm Date: MAY 07, 2022@10:29 Req Phys: BETO AYALA Pat Loc: OP Unknown/0 05-13-2022@05:05 Img Loc: CT IMAGING Service: PRIMARY CARE - MED OFFICE (Case [id number] COMPLETE) CT HEAD/BRAIN W/O CONTRAST ( CT Detailed) CPT:07229 Reason for Study: seizure noted at [facility] Clinical History: [place] IS NOT under investigation for COVID-19 or is COVID-19 negative Defer to radiologist for final CT protocol. Responsible provider name and phone number to n otify for critical findings if other than user placing the order a nd pager listed below: User placing orders pager: [phone] LAST 3: Collection DT Specimen Test Name [...] GFR (eGF 44 L Ref: >=60 Allergies: ([place] only) SIMVASTATIN (Feb 29, 2004) CEPHALEXIN (Mar 01, 2004) Report Status: Verified Date Reported: MAY 07, 2022 Date Verified: MAY 07, 2022 Installation Specialist E-Sig:/ES/SHANI POLANCO MD Report: EXAM: CT HEAD/BRAIN W/O CONTRAST HISTORY: seizure noted at [facility] Reason for Study: seizure noted at [facility] [place] IS NOT under investigation for COVID-19 or is COVID-19 negative Defer to radiologist for final CT prot ocol. Responsible provider name and phone number to notify for cr itical findings if other than user placing the order and pager lis nola below: User placing orders pager: [phone] LAST 3: Collecti on DT Specimen Test [...] Primary Interpreting Staff: SHANI POLANCO MD, RADIOLOGIST (Installation Specialist) /Javed May 06, 2022 11:40 CHEST 1 VIEW: RADIOLOGY,OUTSIDE [facility] LUISANA EDDY [id number] -1935 M SERVICE Exm Date: MAY 06, 2022@11:40 Req Phys: MODESTA VILLANUEVA Loc: [facility] (Re Img Loc: MAIN X-RAY Service: Unknown (Case [id number] COMPLETE) CHEST 1 VIEW (RAD Detailed) C PT:10504 Proc Modifiers : PORTABLE EXAM Reason for Study: fever, back pain Clinical History: Reason for Exam: Severe Sepsis Pathway to Evalu ate Volume Status and Source of Sepsis [place] IS under investigation (PUI) for COVID- 19 or is COVID-19+ 86 yo M with fever, back pain Responsible provi violeta name and phone number to notify for critical findings if other than user placing the order and pager listed below: User placing orders pager: [phone] LAST CREATININE 1.2 (04/30/22) Report Status: Verified Date Reported: MAY 06, 2022 Date Verified: MAY 06, 2022 Installation Specialist E-Sig: Report: Technique: Frontal chest. No comparison Impression: Cardiac silhouette is mildly enlarged. There is mild pulmonary venous congestion. No definite pleural effusion . No pneumothorax seen. READING PHYSICIAN: Vern Donnelly M.D. -[id number] 05/06/2022 13:26 EDT [facility] National Teleradiology Program [phone] (For Medical Practitioner Use Only ) Attention Patients / Veterans: If you have ques tions or concerns about these test results, please contact your [facility] provider or primary care team. Primary Interpreting Staff: RADIOLOGY,OUTSIDE SERVICE, Staff Physician / May 06, 2022 10:36 CT (AP) ABDOMEN/PELVIS (P): RADIOLOGY,OUTSIDE [facility] LUISANA EDDY [id number] -1935 M SERVICE Exm Date: MAY 06, 2022@10:36 Req Phys: MODESTA VILLANUEVA Loc: [facility] WALK-[facility] (Re Img Loc: CT IMAGING Service: Unknown (Case [id number] COMPLETE) CT (AP) ABDOMEN/PELVIS W CONT RAST(CT Detailed) CPT:68577 Reason for Study: fever, back pain Clinical History: fever, back pain, ecchymosis left low back consideration for intra-abdominal process, aort ic changes, LS spine trauma, kidney inflammation, GI or obs truction [place] IS under investigation (PUI) for COVID- 19 or is COVID-19+ Defer to radiologist for final CT protocol. Please enter pertinent clinical history on the next page. Responsible provider name and phone number to n otify for critical findings if other than user placing the order a nd pager listed below: User placing orders pager: [phone] LAST 3: Collection DT Specimen Test Name [...] ESTIMATED GFR(eGF 44 L Ref: >=60 Allergies: ([place] only) SIMVASTATIN (Feb 29, 2004) CEPHALEXIN (Mar 01, 2004) To see allergies from all [facility] locations click Re ports tab>Remote Data>All Available Sites>Clinical Reports>Aller gies. Report Status: Verified Date Reported: MAY 06, 2022 Date Verified: MAY 06, 2022 Installation Specialist E-Sig: Report: Exam: CT (AP) ABDOMEN/PELVIS [...] findings, above. READING PHYSICIAN: Eduin Donaldson M.D. -[phone] 05/06/2022 12:48 [facility] National Teleradiology Program [phone] (For Medical Practitioner Use Only ) Attention Patients / Veterans: If you have ques tions or concerns about these test results, please contact your o [facility] provider or primary care team. Primary Interpreting Staff: RADIOLOGY,OUTSIDE SERVICE, Staff Physician / May 06, 2022 10:35 CT CERVICAL SPINE W/O CONTRAST: RADIOLOGY,OUT SIDE [facility] AM NUNULUISANA [phone] 1935 M SERVICE Exm Date: MAY 06, 2022@10:35 Req Phys: MODESTA VILLANUEVA Loc: [facility] EMERGENCY DEPT WALK-IN (Re Img Loc: CT IMAGING Service: Unknown (Case 65 COMPLETE) CT CERVICAL SPINE W/O CONTRAS T (CT Detailed) CPT:52834 Reason for Study: falls, blood thinner, AMS, se izure Clinical History: falls, blood thinner, AMS, seizure [place] IS under investigation (PUI) for COVID- 19 or is COVID-19+ Defer to radiologist for final CT protocol. Responsible provider name and phone number to n otify for critical findings if other than user placing the order a nd pager listed below: User placing orders pager: [phone] LAST 3: Collection DT Specimen Test Name [...] ESTIMATED GFR(eGF 44 L Ref: >=60 Allergies: ([place] only) SIMVASTATIN (Feb 29, 2004) CEPHALEXIN (Mar 01, 2004) To see allergies from all [facility] locations click Re ports tab>Remote Data>All Available Sites>Clinical Reports>Aller gies. Report Status: Verified Date Reported: MAY 06, 2022 Date Verified: MAY 06, 2022 Installation Specialist E-Sig: Report: CT CERVICAL SPINE W/O [...] findings, above. READING PHYSICIAN: Eduin Donaldson M.D. [phone] 05/06/2022 12:33 [facility] Liquid Stateradiology Program [phone] (For Medical Practitioner Use Only ) Attention Patients / Veterans: If you have ques tions or concerns about these test results, please contact your o rdering provider or primary care team. Primary Interpreting Staff: RADIOLOGY,OUTSIDE SERVICE, Staff Physician / May 06, 2022 10:35 CT HEAD/BRAIN W/O CONTRAST: RADIOLOGY,OUTSIDE [facility] AM LUISANA EDDY [phone] -1935 M SERVICE Exm Date: MAY 06, 2022@10:35 Req Phys: MODESTA VILLANUEVA Loc: [facility] EMERGENCY DEPT WALK-IN (Re Img Loc: CT IMAGING Service: Unknown (Case 64 COMPLETE) CT HEAD/BRAIN W/O CONTRAST (C T Detailed) CPT:46160 Reason for Study: falls, blood thinner, AMS, se izure Clinical History: falls, blood thinner, AMS, seizure IS under investigation (PUI) for COVID- 19 or is COVID-19+ Defer to radiologist for final CT protocol. Responsible provider name and phone number to n otify for critical findings if other than user placing the order a nd pager listed below: User placing orders pager: [phone] LAST 3: Collection DT Specimen Test Name [...] ESTIMATED GFR(eGF 44 L Ref: >=60 Allergies: ([place] only) SIMVASTATIN (Feb 29, 2004) CEPHALEXIN (Mar 01, 2004) To see allergies from all [place] locations click Re ports tab>Remote Data>All Available Sites>Clinical Reports>Aller gies. Report Status: Verified Date Reported: MAY 06, 2022 Date Verified: MAY 06, 2022 Installation Specialist E-Sig: Report: CT HEAD/BRAIN W/O CONTRAST Clinical History: falls, blood thinner, AMS, se izure Number of Images: 532 Comparison: 03/12/2022 Technique: The study was protocoled and supervi sed at the local OR facility. CT of the head without contrast. I mages were subsequently received by the [place] National Telera diology Program (NTP) for interpretation. [...] T findings. READING PHYSICIAN: Eduin Donaldson M.D. -[phone] 05/06/2022 12:30 [facility] National Teleradiology Program [phone] (For Medical Practitioner Use Only ) Attention Patients / Veterans: If you have ques tions or concerns about these test results, please contact your [facility] provider or primary care team. [...] comes from all [place] treatment facilities. Date/Time Pathology Report Provider Source May 09, 2022 05:30 AM LR MICROBIOLOGY REPORT: [facility] Reporting [facility]: [facility] [CLIA# [id number]] [place] [address] Accession [UID]: [id number] [[id number]] Receiv ed: May 09, 2022@01:35 Collection sample: BLOOD Collection date: Apr 05:30 Provider: CODIE LEON Comment on specimen: LEFT ARM, RECEIVED 2 BLOOD CULTURE BOTTLES Test(s) ordered: CULTURE & SUSCEPTIBILITY...... 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 R TRIMETH/SULFA................. S TETRACYCLINE.................. S CLINDAMYCIN................... S RIFAMPIN...................... S VANCOMYCIN.................... S Bacteriology Remark(s): VANCOMYCIN SHAMIKA: <=0.5 ug/mL THIS REPORT IS FINAL =--=--=--=--=--=--=--=--=--=--=--=--=--= --=--=--=--=--=--=--=--=--=--=--=--=-- Performing Laboratory: Bacteriology Report Performed By: [facility] [CLIA# [id number]] [place] [address] May 08, 2022 03:23 PM LR MICROBIOLOGY REPORT: [facility] Reporting Lab: [facility] [CLIA# [id number]] [place] [address] Accession [UID]: [id number] [[id number]] Receiv ed: May 08, 2022@15:41 Collection sample: BLOOD Collection date: Apr 15:23 Provider: CODIE LEON Comment on specimen: LEFT ARM, RECEIVED 2 BLOOD CULTURE BOTTLES Test(s) ordered: CULTURE & SUSCEPTIBILITY...... completed: May 10, 2022 * BACTERIOLOGY FINAL REPORT => May 10, 2022 16:3 1 TECH CODE: [id number] CULTURE RESULTS: GROWTH SAME THAT OF ANOTHER CULTURE Comment: FOR SUSCEPTIBILITY REPORT SEE PREVIOUS POSITIVE SAME MB 22 02445 ( 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 from Anaerobic bottle ) ( Recovered from Aerobic bottle ) Bacteriology Remark(s): THIS REPORT IS FINAL =--=--=--=--=--=--=--=--=--=--=--=--=--= --=--=--=--=--=--=--=--=--=--=--=--=-- Performing Laboratory: Bacteriology Report Performed By: [facility] [CLIA# [id number]] [place] [address] May 08, 2022 03:21 PM LR MICROBIOLOGY REPORT: [facility] Reporting Lab: [facility] [CLIA# [id number] 147] [place] [address] Accession [UID]: [id number] [[id number]] Receiv ed: May 08, 2022@15:40 Collection sample: BLOOD Collection date: Apr 15:21 Provider: CODIE LEON Comment on specimen: RT ARM, RECEIVED 2 BLOOD CU LTURE BOTTLES Test(s) ordered: CULTURE & SUSCEPTIBILITY...... completed: May 10, 2022 * BACTERIOLOGY FINAL REPORT => May 10, 2022 16:3 1 TECH CODE: [id number] CULTURE RESULTS: GROWTH SAME THAT OF ANOTHER CULTURE Comment: FOR SUSCEPTIBILITY REPORT SEE PREVIOUS POSITIVE SAME MB 22 [id number] ( 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 from Anaerobic bottle ) ( Recovered from Aerobic bottle ) Bacteriology Remark(s): THIS REPORT IS FINAL =--=--=--=--=--=--=--=--=--=--=--=--=--= --=--=--=--=--=--=--=--=--=--=--=--=-- Performing Laboratory: Bacteriology Report Performed By: [facility] [CLIA# [id number]] [place] [address] May 07, 2022 05:30 AM LR MICROBIOLOGY REPORT: [facility] Reporting Lab: [facility] [CLIA# [id number] 147] [place] [address] Accession [UID]: [id number] [[id number]] Receiv ed: May 07, 2022@01:35 Collection sample: [...] REPORT SEE PREVIOUS POSITIVE SAME MB 22 00589 ( 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 from Aerobic bottle ) ( Recovered from Anaerobic bottle ) Bacteriology Remark(s): THIS REPORT IS FINAL =--=--=--=--=--=--=--=--=--=--=--=--=--= --=--=--=--=--=--=--=--=--=--=--=--=-- Performing Laboratory: Bacteriology Report Performed By: [facility] [CLIA# [id number]] [place] [address] May 06, 2022 10:51 AM LR MICROBIOLOGY REPORT: [facility] Reporting Lab: [facility] [CLIA# [id number] 147] [place] [address] Accession [UID]: [id number] [[id number]] Receiv ed: May 06, 2022@11:32 Collection sample: [...] --=--=--=--=--=--=--=--=--=--=--=--=-- Performing Laboratory: Bacteriology Report Performed By: [facility] [CLIA# [id number]] [place] [address] May 06, 2022 10:34 AM LR MICROBIOLOGY REPORT: [facility] Reporting Lab: [facility] [CLIA# [id number] 147] [place] [address] Accession [UID]: [id number] [[id number]] Receiv ed: May 06, 2022@10:51 Collection sample: BLOOD Collection date: Apr 10:34 Provider: MODESTA VILLANUEVA Comment on specimen: RECEIVED 2 BLOOD CULTURE MILAN TTLES RAC Test(s) ordered: CULTURE & SUSCEPTIBILITY...... completed: May 07, 2022 * BACTERIOLOGY FINAL REPORT => May 08, 2022 08:3 0 TECH CODE: [id number] CULTURE RESULTS: STAPHYLOCOCCUS AUREUS METHICILL IN RESISTANT [...] --=--=--=--=--=--=--=--=--=--=--=--=-- Performing Laboratory: Bacteriology Report Performed By: [facility] [CLIA# [id number]] [place] [address] May 06, 2022 10:00 AM LR MICROBIOLOGY REPORT: [facility] Reporting Lab: [facility] [CLIA# [id number] 147] [place] [address] Accession [UID]: [id number] [[id number]] Receiv ed: May 06, 2022@10:41 Collection sample: [...] SUSCEPTIBILITY REPORT SEE PREVIOUS POSITIVE SAME 22 91598 ( 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 from Anaerobic bottle ) ( Recovered from Aerobic bottle ) Bacteriology Remark(s): THIS REPORT IS FINAL =--=--=--=--=--=--=--=--=--=--=--=--=--= --=--=--=--=--=--=--=--=--=--=--=--=-- Performing Laboratory: Bacteriology Report Performed By: [facility] [CLIA# [id number]] [place] [address] Encounter Notes: All associated encounter notes This section contains the clinical notes associated to the Encounter. Date/Time Encounter Note(s) Provider Source May 06, 2022 07:40 AM CRITICAL CARE UNIT NOTE[facility] LOCAL TITLE: [facility] EMERGENCY DEPT FLOWSHEET STANDARD TITLE: CRITICAL CARE UNIT NOTE DATE OF NOTE: MAY 06, 2022@07:40 ENTRY DATE: MAY 07, 2022@01:31:49 AUTHOR: FELECIA GU EXP COSIGNER: URGENCY: STATUS: COMPLETED This is a place chan only. Please see VISTA Im aging to view document. /es/ FELECIA SYSTEM ICU DOCUMENT IMPORT Signed: 05/07/2022 01:31
--- OUTSIDE RECORDS SUMMARY | 2022-05-15 09:29 | XMS_ITS ---
DAILY HOSPITALIZATION DATA [facility] Encounter Summary Created on:May 07, 2022 Patient:LUISANA EDDY Sex:Male :1935 Author Organization Department [facility] rs Address [address] [place] [address] Support Name Relationship Address Phone WADE LORENZO Unavailable [address] [place] [address] WADE LORENZO Unavailable [address] [place] [address] TREYGEORGE ARACELI Unavailable [address] [place] [address] ARACELI MARSHALL Unavailable [address] [place] [address] Insurance Providers: All historical and current Section [...] [place] M[place] Aug 19, [id number] Kristel EDDY [facility] (WNR) ADVANTAGE (WNR) 2016 8 [id number] [phone] [facility] 1 [place] MEDICARE MCR Aug 19, [id number] Kristel EDDY [facility] (WNR) ADVANTAGE (WNR) 2016 8 [id number] [phone] [facility] 1 Selected Encounter This section includes the information on record at CO for the Encounter. Date/Time Encounter Type Encounter Description Reason Provider Source May 07, 2022 Inpatient Visit DAILY HOSPITALIZATION ASHLEY MAXWELL 10:17 AM DATA A E Encounter Template Text not used by CO Plan of Treatment: Future Appointments (+ 6 months) and Future Tests (+/- 45 days) The Plan of Treatment section includes future care activities for the patient [facility] This section includes future appointments and future orders which are active, pending orscheduled.Future Appointments This section includes appointments that were scheduled to occur 6 months from the date of the Encounter, up to a maximum of 20 appointments. The data comes from all [place] treatment facilities. Appointment Date/Time Appointment Type Appointment Facili ty Name May 11, 2022 06:15 PM AMBULATORY - NONE [facility] Jul 23, 2022 08:00 AM AMBULATORY - NEUROLOGY [facility] Active, Pending, and Scheduled Orders [...] The data comes from all [place] treatment [facility]. Test Date/Time Test Type Test Details Facility Name Apr 30, 2022 08:21 Laboratory - Chemistry URINALYSIS URINE WC ON CE [facility] AM Order Apr 30, 2022 08:21 Laboratory - CULTURE & SUSCEPTIBILITY [facility] AM Microbiology Order URINE WC May 06, 2022 12:00 Laboratory - Blood ABO/RH - LAB BLOOD [facility] AM Bank Order May 06, 2022 10:11 Laboratory - Blood TYPE & SCREEN - LAB [facility] AM Bank Order BLOOD WC May 06, 2022 10:27 Pharm[facility] AM Medication Order May 06, 2022 10:28 [facility] AM Infusion Order May 06, 2022 10:34 [facility] AM Infusion Order May 06, 2022 10:41 [facility] AM Infusion Order May 06, 2022 12:15 [facility] PM Medication Order May 06, 2022 01:31 [facility] PM Medication Order May 06, 2022 04:49 [facility] PM Medication Order May 07, 2022 01:00 Laboratory - CULTURE & SUSCEPTIBILITY [facility] PM Microbiology Order BLOOD WC ONCE May 11, 2022 09:07 Laboratory - CULTURE & SUSCEPTIBILITY [facility] AM Microbiology Order BLOOD WC May 11, 2022 09:07 Laboratory - CULTURE & SUSCEPTIBILITY [facility] AM Microbiology Order BLOOD WC May 11, 2022 09:38 Laboratory - Chemistry EOSINOPHIL SMEAR,URINE [facility] AM Order URINE WC ONCE May 11, 2022 09:38 Laboratory - Chemistry FENA URINE WC ONCE [facility] AM Order May 11, 2022 09:38 Laboratory - Chemistry URINALYSIS URINE WC ON CE [facility] AM Order Lab Results: +/- 30 days of the encounter This section includes the Chemistry and Hematology Lab Results on record with CO for the patient. Radiology Reports and Pathology Reports are provided separately, in subsequent sections.Lab Results This section contains the Chemistry/Hematology Results that were resulted 30 days before or 30 daysafter the date of the Encounter. Date/Time Source Result Type Result - Unit Interpretation Reference Range Comment May 11, 2022 11:13 [facility] FINGERSTICK GLUCOSE Speci men Type: BLOOD AM Comment: Mark casillas Nurse Notified Ordering Provid er: CODIE LEON Report Released Date/Time: May 11, 2022 11:53 AM Reporting Lab: [facility] [address] [facility] [address] Performing Lab: [facility] [address] [facility] [address] FINGERSTICK GLUCOSE 367 H 70-100 May 11, 2022 07:05 [facility] LIVER FUNCTION TESTS Spec imen Type: PLASMA AM No comment enter ed. Ordering Provid er: CODIE LEON Report Released Date/Time: May 11, 2022 09:08 AM Reporting Lab: [facility] [address] [facility] [address] Performing Lab: [facility] [address] [facility] [address] BILIRUBIN, TOTAL 1.6 H 0.2-1.2 ALKALINE PHOSPHATASE 102 40-150 ALT/SGPT 42 <55 AST/SGOT 30 <34 GAMMA GTP 52 <64 DIR. BILIRUBIN 1.2 H <0.5 May 11, 2022 07:05 AM [facility] CK,TOTAL Specim en Type: PLASMA No comment enter ed. Ordering Provid er: CODIE LEON Report Released Date/Time: May 11, 2022 09:08 AM Reporting Lab: [facility] [address] [facility] [address] Performing Lab: [facility] [address] [facility] [address] CK,TOTAL 16 L 39-208 May 11, 2022 07:05 [facility] BASIC METABOLIC Specimen Type: PLASMA AM PANEL+MG No comment enter ed. Ordering Provid er: OG DIAL Report Released Date/Time: May 11, 2022 04:46 AM Reporting Lab: [facility] [address] [facility] [address] Performing Lab: [facility] [address] [facility] [address] CREATININE 1.6 H 0.7-1.2 UREA NITROGEN 28 H 8-26 GLUCOSE 396 H 70-100 SODIUM 150 H 136-145 POTASSIUM 3.7 3.5-5.1 CHLORIDE 120 H 98-107 CO2 23 22-29 CALCIUM 8.4 8.4-10.2 MAGNESIUM 2.1 1.6-2.6 ANION GAP 7 5-15 CREAT EGFR(CKD-EPI) 42 L >60 May 11, 2022 07:05 AM [facility] BNP Specim en Type: PLASMA No comment enter ed. Ordering Provid er: CODIE LEON Report Released Date/Time: May 11, 2022 09:15 AM Reporting Lab: [facility] [address] [facility] [address] Performing Lab: [facility] [address] [facility] [address] BNP 59 <99 May 11, 2022 07:05 AM [facility] CBC Specim en Type: BLOOD No comment enter ed. Ordering Provid er: OG DIAL Report Released Date/Time: May 11, 2022 04:46 AM Reporting Lab: [facility] [address] [facility] [address] Performing Lab: [facility] [address] [facility] [address] WBC 15.93 H 4.0-11.0 RBC 3.60 L 4.6-6.2 HGB 11.2 L 13.5-17.9 HCT 35.3 L 41-54 MCV 98.1 80-100 MCH 31.1 27-33 MCHC 31.7 L 32.0-37.5 PLT 231 150-400 MPV 11.2 H 7.4-10.4 RDW 15.2 H 11.5-14.5 May 11, 2022 06:14 [facility] FINGERSTICK GLUCOSE Speci men Type: BLOOD AM Comment: Mark casillas Nurse Notified Ordering Provid er: CODIE LEON Report Released Date/Time: May 11, 2022 06:42 AM Reporting Lab: [facility] [address] [facility] [address] Performing Lab: [facility] [address] [facility] [address] FINGERSTICK GLUCOSE 345 H 70-100 May 11, 2022 02:24 [facility] FINGERSTICK GLUCOSE Speci men Type: BLOOD AM Comment: Mark casillas Ordering Provid er: CODIE LEON Report Released Date/Time: May 11, 2022 02:44 AM Reporting Lab: [facility] [address] [facility] [address] Performing Lab: [facility] [address] [facility] [address] FINGERSTICK GLUCOSE 375 H 70-100 May 10, 2022 08:38 [facility] FINGERSTICK GLUCOSE Speci men Type: BLOOD PM Comment: Mark casillas Ordering Provid er: CODIE LEON Report Released Date/Time: May 11, 2022 12:31 AM Reporting Lab: [facility] [address] [facility] [address] Performing Lab: [facility] [address] [facility] [address] FINGERSTICK GLUCOSE 346 H 70-100 May 10, 2022 05:05 [facility] FINGERSTICK GLUCOSE Speci men Type: BLOOD PM Comment: Mark casillas Nurse Notified Ordering Provi violeta: CODIE LEON Report Released Date/Time: May 10, 2022 11:50 PM Reporting Lab: [facility] [address] [facility] [address] Performing Lab: [facility] [address] [facility] [address] FINGERSTICK GLUCOSE 245 H 70-100 May 10, 2022 02:00 [facility] VANCOMYCIN (TROUGH) Speci men Type: PLASMA PM No comment enter ed. Ordering Provid er: CODIE LEON Report Released Date/Time: May 11, 2022 01:34 AM Reporting Lab: [facility] [address] [facility] [address] Performing Lab: [facility] [address] [facility] [address] VANCOMYCIN (TROUGH) 31.8 H 10.0-15.0 May 10, 2022 [facility] BASIC METABOLIC Specimen Typ e: PLASMA 02:00 PM PANEL+MG No comment enter ed. Ordering Provid er: CODIE LEON Report Released Date/Time: May 11, 2022 01:34 AM Reporting Lab: [facility] [address] Performing Lab: [facility] [address] CREATININE 1.1 .7-1.2 UREA NITROGEN 22 8-26 GLUCOSE 279 H 70-100 SODIUM 150 H 136-145 POTASSIUM 3.2 L 3.5-5.1 CHLORIDE 116 H 98-107 CO2 23 22-29 CALCIUM 8.5 8.4-10.2 MAGNESIUM 2.0 1.6-2.6 ANION GAP 11 5-15 CREAT EGFR(CKD-EPI) 65 >60 May 10, 2022 01:20 PM [facility] CBC & DIFF Specim en Type: BLOOD Comment: Automa nola Differential Performed Ordering Provid er: MD ESTEBAN Report Released Date/Time: May 10, 2022 08:52 PM Reporting Lab: [facility] [address] Performing Lab: [facility] [address] WBC 16.24 H 4.0-11.0 RBC 3.76 L [...] 0.28 H 0-0.1 May 10, 2022 11:07 [facility] FINGERSTICK GLUCOSE Speci men Type: BLOOD AM Comment: Mark casillas Nurse Notified Ordering Provid er: CODIE LEON Report Released Date/Time: May 11, 2022 12:31 AM Reporting Lab: [facility] [address] [facility] [address] Performing Lab: [facility] [address] [facility] [address] FINGERSTICK GLUCOSE 253 H 70-100 May 10, 2022 06:16 [facility] FINGERSTICK GLUCOSE Speci men Type: BLOOD AM Comment: Mark casillas Nurse Notified Ordering Provid er: CODIE LEON Report Released Date/Time: May 10, 2022 11:50 PM Reporting Lab: [facility] [address] [facility] [address] Performing Lab: [facility] [address] [facility] [address] FINGERSTICK GLUCOSE 271 H 70-100 May 09, 2022 09:07 [facility] FINGERSTICK GLUCOSE Speci men Type: BLOOD PM Comment: Mark casillas Ordering Provid er: CODIE LEON Report Released Date/Time: May 10, 2022 11:50 PM Reporting Lab: [facility] [address] [facility] [address] Performing Lab: [facility] [address] [facility] [address] FINGERSTICK GLUCOSE 209 H 70-100 May 09, 2022 05:33 [facility] FINGERSTICK GLUCOSE Speci men Type: BLOOD PM Comment: Mark casillas Nurse Notified Ordering Provid er: CODIE LEON Report Released Date/Time: May 09, 2022 05:53 PM Reporting Lab: [facility] [address] [facility] [address] Performing Lab: [facility] [address] [facility] [address] FINGERSTICK GLUCOSE 251 H 70-100 May 09, 2022 02:09 [facility] VANCOMYCIN (PEAK) Specime n Type: SERUM PM No comment enter ed. Ordering Provid er: AMARIS DE JESUS Report Released Date/Time: May 09, 2022 09:33 AM Reporting Lab: [facility] [address] [facility] [address] Performing Lab: [facility] [address] [facility] [address] VANCOMYCIN (PEAK) 24.2 20.0-40.0 May 09, 2022 11:19 [facility] FINGERSTICK GLUCOSE Speci men Type: BLOOD AM Comment: Mark casillas Nurse Notified Ordering Provid er: CODIE LEON Report Released Date/Time: May 09, 2022 11:38 AM Reporting Lab: [facility] [address] [facility] [address] Performing Lab: [facility] [address] [facility] [address] FINGERSTICK GLUCOSE 240 H 70-100 May 09, 2022 08:13 [facility] VANCOMYCIN (TROUGH) Speci men Type: SERUM AM No comment enter ed. Ordering Provid er: AMARIS DE JESUS Report Released Date/Time: May 08, 2022 11:14 AM Reporting Lab: [facility] [address] [facility] [address] Performing Lab: [facility] [address] VANCOMYCIN (TROUGH) 16.1 H 10.0-15.0 May 09, 2022 05:33 AM [facility] CBC & DIFF Specim en Type: BLOOD Comment: Automa nola Differential Performed Ordering Provid er: CODIE LEON Report Released Date/Time: May 08, 2022 05:27 PM Reporting Lab: [facility] [address] [facility] [address] Performing Lab: [facility] [address] [facility] [address] WBC 14.92 H 4.0-11.0 RBC 3.41 L [...] GRAN 0.16 H 0-0.1 May 09, 2022 [facility] COMPREHENSIVE METABOLIC Spec imen Type: PLASMA 05:32 AM PANEL+MG No comment enter ed. Ordering Provid er: CODIE LEON Report Released Date/Time: May 08, 2022 05:27 PM Reporting Lab: [facility] [address] [facility] [address] Performing Lab: [facility] [address] [facility] [address] CREATININE 1.2 0.7-1.2 UREA NITROGEN 25 8-26 [...] 59 L >60 May 09, 2022 05:16 [facility] FINGERSTICK GLUCOSE Speci men Type: BLOOD AM Comment: Mark casillas Nurse Notified Ordering Provid er: CODIE LEON Report Released Date/Time: May 09, 2022 07:27 AM Reporting Lab: [facility] [address] [facility] [address] Performing Lab: [facility] [address] [facility] [address] FINGERSTICK GLUCOSE 295 H 70-100 May 08, 2022 09:32 PM [facility] EXTRA MINT TUBE Specim en Type: PLASMA No comment enter ed. Ordering Provid er: MD ESTEBAN Report Released Date/Time: May 08, 2022 09:32 PM Reporting Lab: [facility] [address] [facility] [address] Performing Lab: [facility] [address] [facility] [address] EXTRA MINT TUBE RECEIVED May 08, 2022 09:32 PM [facility] EXTRA PURPLE TUBE Spec imen Type: BLOOD No comment enter ed. Ordering Provid er: MD ESTEBAN Report Released Date/Time: May 08, 2022 09:32 PM Reporting Lab: [facility] [address] [facility] [address] Performing Lab: [facility] [address] [facility] [address] EXTRA PURPLE TUBE RECEIVED May 08, 2022 09:32 [facility] EXTRA GOLD GEL TUBE Speci men Type: SERUM PM No comment enter ed. Ordering Provid er: MD ESTEBAN Report Released Date/Time: May 08, 2022 09:32 PM Reporting Lab: [facility] [address] [facility] [address] Performing Lab: [facility] [address] [facility] [address] EXTRA GOLD GEL TUBE RECEIVED May 08, 2022 09:32 PM [facility] EXTRA BLUE TUBE Specim en Type: PLASMA No comment enter ed. Ordering Provid er: MD ESTEBAN Report Released Date/Time: May 08, 2022 09:32 PM Reporting Lab: [facility] [address] [facility] [address] Performing Lab: [facility] [address] [facility] [address] EXTRA BLUE TUBE RECEIVED May 08, 2022 09:32 PM [facility] EXTRA BRASWELL TUBE Specim en Type: PLASMA No comment enter ed. Ordering Provid er: MD ESTEBAN Report Released Date/Time: May 08, 2022 09:37 PM Reporting Lab: [facility] [address] [facility] [address] Performing Lab: [facility] [address] [facility] [address] EXTRA BRASWELL TUBE RECEIVED May 08, 2022 09:32 PM [facility] LACTIC ACID Specim en Type: PLASMA No comment enter ed. Ordering Provid er: OG DIAL Report Released Date/Time: May 08, 2022 09:49 PM Reporting Lab: [facility] [address] [facility] [address] Performing Lab: [facility] [address] [facility] [address] LACTIC ACID 2.5 H 0.5-2.2 May 08, 2022 09:32 PM [facility] BNP Specim en Type: PLASMA No comment enter ed. Ordering Provid er: OG DIAL Report Released Date/Time: May 08, 2022 09:50 PM Reporting Lab: [facility] [address] [facility] [address] Performing Lab: [facility] [address] [facility] [address] BNP 897 H <99 May 08, 2022 09:32 PM [facility] BLOOD GASES Specim en Type: VENOUS BLOOD Comment: O2 THE RAPY = 3L PM Ordering Provid er: OG DIAL Report Released Date/Time: May 08, 2022 09:50 PM Reporting Lab: [facility] [address] Performing Lab: [facility] [address] PH 7.36 7.33-7.43 PCO2 47 41-51 BICARBONATE 24.4 21.0-30.0 PO2 31 L 35-40 OXYGEN SATURATION 54.7 L 70.0-75.0 PH(TEMP CORRECTED) 7.37 7.33-7.43 PCO2(TEMP CORRECTED) 46 41-51 PO2(TEMP CORRECTED) 31 L 35-40 PATIENT TEMPERATURE 36.7 May 08, 2022 09:32 PM [facility] CBC Specim en Type: BLOOD No comment enter ed. Ordering Provid er: OG DIAL Report Released Date/Time: May 08, 2022 09:50 PM Reporting Lab: [facility] [address] Performing Lab: [facility] [address] WBC 18.54 H 4.0-11.0 RBC 3.68 L 4.6-6.2 HGB 11.5 L 13.5-17.9 HCT 35.1 L 41-54 MCV 95.4 80-100 MCH 31.3 27-33 MCHC 32.8 32.0-37.5 PLT 221 150-400 MPV 11.1 H 7.4-10.4 RDW 14.9 H 11.5-14.5 May 08, 2022 [facility] COMPREHENSIVE METABOLIC Spec imen Type: PLASMA 09:32 PM PANEL+MG No comment enter ed. Ordering Provid er: OG DIAL Report Released Date/Time: May 08, 2022 09:50 PM Reporting Lab: [facility] [address] Performing Lab: [facility] [address] CREATININE 1.3 H 0.7-1.2 UREA NITROGEN 26 [...] 54 L >60 May 08, 2022 08:27 [facility] FINGERSTICK GLUCOSE Speci men Type: BLOOD PM Comment: Mark casillas Nurse Notified Ordering Provid er: CODIE LEON Report Released Date/Time: May 08, 2022 08:55 PM Reporting Lab: [facility] [address] [facility] [address] Performing Lab: [facility] [address] [facility] [address] FINGERSTICK GLUCOSE 272 H 70-100 May 08, 2022 06:56 [facility] FINGERSTICK GLUCOSE Speci men Type: BLOOD PM Comment: Mark casillas Ordering Provid er: CODIE LEON Report Released Date/Time: May 08, 2022 07:08 PM Reporting Lab: [facility] [address] [facility] [address] Performing Lab: [facility] [address] [facility] [address] FINGERSTICK GLUCOSE 262 H 70-100 May 08, 2022 04:50 [facility] FINGERSTICK GLUCOSE Speci men Type: BLOOD PM Comment: Nurse Notified Ordering Provid er: CODIE LEON Report Released Date/Time: May 08, 2022 05:14 PM Reporting Lab: [facility] [address] [facility] [address] Performing Lab: [facility] [address] [facility] [address] FINGERSTICK GLUCOSE 330 H 70-100 May 08, 2022 11:21 [facility] FINGERSTICK GLUCOSE Speci men Type: BLOOD AM Comment: Mark casillas Nurse Notified Ordering Provid er: CODIE LEON Report Released Date/Time: May 08, 2022 11:51 AM Reporting Lab: [facility] [address] [facility] [address] Performing Lab: [facility] [address] [facility] [address] FINGERSTICK GLUCOSE 231 H 70-100 May 08, 2022 07:25 AM [facility] CBC & DIFF Specim en Type: BLOOD Comment: Automa nola Differential Performed Ordering Provid er: BETO AYALA Report Released Date/Time: May 07, 2022 12:28 PM Reporting Lab: [facility] [address] Performing Lab: [facility] [address] WBC 16.29 H 4.0-11.0 RBC 3.38 L [...] GRAN 0.26 H 0-0.1 May 08, 2022 [facility] PROTHROMBIN TIME/INR Specime n Type: PLASMA 07:25 AM No comment enter ed. Ordering Provid er: BETO AYALA Report Released Date/Time: May 07, 2022 12:28 PM Reporting Lab: [facility] [address] Performing Lab: [facility] [address] .INR 1.2 H 0.8-1.1 .PT 14.2 H 9.4-12.5 May 08, 2022 [facility] COMPREHENSIVE METABOLIC Spec imen Type: PLASMA 07:25 AM PANEL+MG No comment enter ed. Ordering Provid er: BETO AYALA Report Released Date/Time: May 07, 2022 12:28 PM Reporting Lab: [facility] [address] Performing Lab: [facility] [address] CREATININE 1.1 0.7-1.2 UREA NITROGEN 27 H [...] EGFR(CKD-EPI) 65 >60 May 08, 2022 06:53 [facility] FINGERSTICK GLUCOSE Speci men Type: BLOOD AM Comment: Mark R esult Ordering Provid er: CODIE LEON Report Released Date/Time: May 08, 2022 07:18 AM Reporting Lab: [facility] [address] [facility] [address] Performing Lab: [facility] [address] [facility] [address] FINGERSTICK GLUCOSE 276 H 70-100 May 07, 2022 08:36 [facility] FINGERSTICK GLUCOSE Speci men Type: BLOOD PM Comment: Nurse Notified Ordering Provid er: CODIE LEON Report Released Date/Time: May 08, 2022 12:29 AM Reporting Lab: [facility] [address] [facility] [address] Performing Lab: [facility] [address] [facility] [address] FINGERSTICK GLUCOSE 282 H 70-100 May 07, 2022 07:04 PM [facility] LACTIC ACID Specim en Type: PLASMA No comment enter ed. Ordering Provid er: BETO AYALA Report Released Date/Time: May 07, 2022 06:28 PM Reporting Lab: [facility] [address] [facility] [address] Performing Lab: [facility] [address] [facility] [address] LACTIC ACID 2.0 0.5-2.2 May 07, 2022 04:46 [facility] FINGERSTICK GLUCOSE Speci men Type: BLOOD PM Comment: Nurse Notified Ordering Provid er: BETO AYALA Report Released Date/Time: May 07, 2022 05:00 PM Reporting Lab: [facility] [address] [facility] [address] Performing Lab: [facility] [address] [facility] [address] FINGERSTICK GLUCOSE 274 H 70-100 May 07, 2022 12:47 [facility] FINGERSTICK GLUCOSE Speci men Type: BLOOD PM Comment: Mark casillas Nurse Notified Ordering Provid er: BETO AYALA Report Released Date/Time: May 07, 2022 05:32 PM Reporting Lab: [facility] [address] [facility] [address] Performing Lab: [facility] [address] [facility] [address] FINGERSTICK GLUCOSE 309 H 70-100 May 07, 2022 06:35 [facility] FINGERSTICK GLUCOSE Speci men Type: BLOOD AM Comment: Mark casillas Nurse Notified Ordering Provid er: GAYLA DOMINGUEZ Report Released Date/Time: May 07, 2022 06:46 AM Reporting Lab: [facility] [address] [facility] [address] Performing Lab: [facility] [address] [facility] [address] FINGERSTICK GLUCOSE 352 H 70-100 May 07, 2022 06:15 AM [facility] ALBUMIN Specim en Type: PLASMA No comment enter ed. Ordering Provid er: GAYLA DOMINGUEZ Report Released Date/Time: May 06, 2022 06:33 PM Reporting Lab: [facility] [address] [facility] [address] Performing Lab: [facility] [address] [facility] [address] ALBUMIN 3.0 L 3.5-5.2 May 07, 2022 [facility] COMPREHENSIVE METABOLIC Spec imen Type: PLASMA 06:15 AM PANEL+MG No comment enter ed. Ordering Provid er: GAYLA DOMIGNUEZ Report Released Date/Time: May 06, 2022 09:11 PM Reporting Lab: [facility] [address] [facility] [address] Performing Lab: [facility] [address] [facility] [address] CREATININE 1.2 0.7-1.2 UREA NITROGEN 25 8-26 [...] L >60 May 07, 2022 06:15 AM [facility] CBC & DIFF Specim en Type: BLOOD Comment: Manual Differential Performed Ordering Provid er: GAYLA DOMINGUEZ Report Released Date/Time: May 06, 2022 09:11 PM Reporting Lab: [facility] [address] [facility] [address] Performing Lab: [facility] [facility] [address] WBC 20.25 H 4.0-11.0 RBC 3.54 L [...] NORMOCYTIC, NORMOCHROMIC May 07, 2022 12:19 AM [facility] LACTIC ACID Specim en Type: PLASMA No comment enter ed. Ordering Provid er: GAYLA DOMINGUEZ Report Released Date/Time: May 06, 2022 07:13 PM Reporting Lab: [facility] [address] [facility] [address] Performing Lab: [facility] [address] [facility] [address] LACTIC ACID 2.7 H 0.5-2.2 May 06, 2022 10:45 [facility] FINGERSTICK GLUCOSE Speci men Type: BLOOD PM Comment: Save R esult Nurse Notified Ordering Provid er: GAYLA DOMINGUEZ Report Released Date/Time: May 07, 2022 12:08 AM [facility] [address] Performing Lab: [facility] [address] [facility] [address] FINGERSTICK GLUCOSE 320 H 70-100 May 06, 2022 06:53 [facility] MRSA SURVL NARES Specimen Type: NARES PM DNA No comment enter ed. Ordering Provid er: GAYLA DOMINGUEZ Report Released Date/Time: May 06, 2022 06:33 PM Reporting Lab: [facility] [address] [facility] [address] Performing Lab: [facility] [address] [facility] [address] MRSA SURVL NARES DNA POSITIVE HH Negative May 06, 2022 06:51 PM [facility] LACTIC ACID Specim en Type: PLASMA No comment enter ed. Ordering Provid er: GAYLA DOMINGUEZ Report Released Date/Time: May 06, 2022 06:04 PM Reporting Lab: [facility] [address] [facility] [address] Performing Lab: [facility] [address] [facility] [address] LACTIC ACID 3.1 H 0.5-2.2 May 06, 2022 06:51 [facility] CARDIAC TROPONIN I Specim en Type: PLASMA PM No comment enter ed. Ordering Provid er: GAYLA DOMINGUEZ Report Released Date/Time: May 06, 2022 06:05 PM Reporting Lab: [facility] [address] [facility] [address] Performing Lab: [facility] [address] [facility] [address] CARDIAC TROPONIN I <0.028 <0.028 May 06, 2022 06:51 [facility] EXTRA GOLD GEL TUBE Speci men Type: SERUM PM No comment enter ed. Ordering Provid er: GAYLA DOMINGUEZ Report Released Date/Time: May 06, 2022 06:52 PM Reporting Lab: [facility] [address] [facility] [address] Performing Lab: [facility] [address] [facility] [address] EXTRA GOLD GEL TUBE RECEIVED May 06, 2022 06:51 [facility] C-REACTIVE PROTEIN Specim en Type: PLASMA PM No comment enter ed. Ordering Provid er: GAYLA DOMINGUEZ Report Released Date/Time: May 06, 2022 09:29 PM Reporting Lab: [place] [facility] [address] Performing Lab: [facility] [address] [facility] [address] C-REACTIVE PROTEIN 392.40 H <5.00 May 06, 2022 10:51 AM [facility] URINALYSIS Specim en Type: URINE No comment enter ed. Ordering Provid er: MODESTA VILLANUEVA Report Released Date/Time: May 06, 2022 10:11 AM Reporting Lab: [facility] [address] Performing Lab: [facility] [address] URINE COLOR YELLOW SPECIFIC GRAVITY 1.020 1.003-1.035 [...] ESTERASE 500 NEGATIVE May 06, 2022 10:24 [facility] COVID-19 DIAGNOSTIC Speci men Type: NASOPHARYNGEAL AM PANEL (CEPHEID) Comment: Cephei d GeneXpert (618) Ordering Provid er: MODESTA VILLANUEVA Report Released Date/Time: May 06, 2022 10:11 AM Reporting Lab: [facility] [address] Performing Lab: [facility] [address] COVID-19 (CEPHEID) Not Detected Not Dete cted May 06, 2022 10:20 AM [facility] POC ABG/LACTATE Specim en Type: VENOUS BLOOD No comment enter ed. Ordering Provid er: MODESTA VILLANUEVA Report Released Date/Time: May 06, 2022 10:22 AM Reporting Lab: [facility] [address] Performing Lab: [facility] [address] POC PH 7.410 7.31-7.41 POC PCO2 28.9 L 35.00-45.00 POC PO2 82 H 35.0-40.0 POC TCO2 19 L 24.0-29.0 POC HCO3 18.3 L 23.0-28.0 POC BE ECT -6 L -2 POC SO2 96 H 70-75 POC LACTATE 3.62 0.90-1.70 May 06, 2022 10:00 AM [facility] PHOSPHORUS Specim en Type: PLASMA No comment enter ed. Ordering Provid er: MODESTA VILLANUEVA Report Released Date/Time: May 06, 2022 10:11 AM Reporting Lab: [facility] [address] [facility] [address] Performing Lab: [facility] [address] [facility] [address] PHOSPHORUS 2.5 2.3-4.7 May 06, 2022 10:00 [facility] ACT PART THROMBO TIME Spe cimen Type: PLASMA AM No comment enter ed. Ordering Provid er: MODESTA VILLANUEVA Report Released Date/Time: May 06, 2022 10:11 AM Reporting Lab: [facility] [address] [facility] [address] Performing Lab: [facility] [address] [facility] [address] APTT 37.8 H 25.1-36.5 May 06, 2022 10:00 [facility] PROTHROMBIN TIME/INR Spec imen Type: PLASMA AM No comment enter ed. Ordering Provid er: MODESTA VILLANUEVA Report Released Date/Time: May 06, 2022 10:11 AM Reporting Lab: [facility] [address] [facility] [address] Performing Lab: [facility] [address] [facility] [address] .INR 2.5 H 0.8-1.1 .PT 29.2 H 9.4-12.5 May 06, 2022 10:00 [facility] CARDIAC TROPONIN I Specim en Type: PLASMA AM Comment: Critic al Value Reported To: BROOKS COTE 05-06-2022 @1053 BY MBImmanuel. Critical value report confirmed. Ordering Provid er: MODESTA VILLANUEVA Report Released Date/Time: May 06, 2022 10:11 AM Reporting Lab: [facility] [address] [facility] [address] Performing Lab: [facility] [address] [facility] [address] CARDIAC TROPONIN I 0.035 HH <0.028 May 06, 2022 10:00 AM [facility] PROCALCITONIN Specim en Type: PLASMA No comment enter ed. Ordering Provid er: MODESTA VILLANUEVA Report Released Date/Time: May 06, 2022 10:11 AM Reporting Lab: [facility] [address] [facility] [address] Performing Lab: [facility] [address] [facility] [address] PROCALCITONIN 22.29 H <0.09 May 06, 2022 10:00 AM [facility] LIPASE Specim en Type: PLASMA No comment enter ed. Ordering Provid er: MODESTA VILLANUEVA Report Released Date/Time: May 06, 2022 10:11 AM Reporting Lab: [facility] [address] [facility] [address] Performing Lab: [facility] [address] [facility] [address] LIPASE <4 <60 May 06, 2022 [facility] COMPREHENSIVE METABOLIC Spec imen Type: PLASMA 10:00 AM PANEL+MG Comment: Manual Differential Performed Ordering Provid er: MODESTA VILLANUEVA Report Released Date/Time: May 06, 2022 10:11 AM Reporting Lab: [facility] [address] [facility] [address] Performing Lab: [facility] [address] [facility] [address] CREATININE 1.3 H 0.7-1.2 UREA NITROGEN 25 [...] 54 L >60 May 06, 2022 10:00 [facility] EXTRA GOLD GEL TUBE Speci men Type: SERUM AM No comment enter ed. Ordering Provid er: LINNEA RAND Report Released Date/Time: May 06, 2022 10:25 AM Reporting Lab: [facility] [address] [facility] [address] Performing Lab: [facility] [address] [facility] [address] EXTRA GOLD GEL TUBE RECEIVED May 06, 2022 10:00 AM [facility] CBC & DIFF Specim en Type: BLOOD Comment: Manual Differential Performed Ordering Provid er: MODESTA VILLANUEVA Report Released Date/Time: May 06, 2022 10:11 AM Reporting Lab: [facility] [address] [facility] [address] Performing Lab: [facility] [address] [facility] [address] WBC 18.82 H 4.0-11.0 RBC 3.70 L [...] .RBC MORPHOLOGY PRESENT May 06, 2022 09:46 [facility] FINGERSTICK GLUCOSE Speci men Type: BLOOD AM Comment: Mark casillas Nurse Notified Ordering Provid er: MODESTA VILLANUEVA Report Released Date/Time: May 06, 2022 09:59 AM Reporting Lab: [facility] [address] [facility] [address] Performing Lab: [facility] [address] FINGERSTICK GLUCOSE 369 H 70-100 Apr 30, 2022 [facility] BASIC METABOLIC Specimen Typ e: PLASMA 09:17 AM PANEL+MG No comment enter ed. Ordering Provid er: BILL ROONEY Report Released Date/Time: Apr 30, 2022 08:21 AM Reporting [facility] [address] Performing Lab: [facility] [address] CREATININE 1.2 0.7-1.2 UREA NITROGEN 26 8-26 GLUCOSE 140 H 70-100 SODIUM 138 136-145 POTASSIUM 3.8 3.5-5.1 CHLORIDE 107 98-107 CO2 20 L 22-29 CALCIUM 9.4 8.4-10.2 MAGNESIUM 1.7 1.6-2.6 ANION GAP 11 5-15 CREAT EGFR(CKD-EPI) 59 L >60 Apr 30, 2022 09:17 AM [facility] CBC Specim en Type: BLOOD No comment enter ed. Ordering Provid er: BILL ROONEY Report Released Date/Time: Apr 30, 2022 08:21 AM Reporting Lab: [facility] [address] Performing Lab: [facility] [address] WBC 10.40 4.0-11.0 RBC 3.96 L 4.6-6.2 [...] dy Source Pressure Rate Mass Index May 07 [facility] 2021 12:14 [facility] May 07 [facility] 2021 04:56 [facility] AM [facility] May 07 [place] 2021 03:23 [facility] May 07, 266.76 35 [facility] 2021 12:15 lb [facility] Social History: Smoking Status (Most current) and Tobacco Use (All prior to encounter date) This section includes the most current, and the historical, smoking and tobacco-related health factors from the [facility] where the Encounter took place.Current Smoking Status This section includes the most current smoking, or tobacco-related health factor, from the [place] facility where the Encounter took place. Date/Time Current Smoking Status Comment Facility Feb 02, 2022 09:30 AM CO-TOBACCO NEVER USED [facility] Tobacco Use History This section includes a history of the smoking, or tobacco- related health factors, that were collected on or before the date of the Encounter. The data comes from the [place] facility where the Encounter took place. Date/Time Smoking Status/Tobacco Use Comment [facility] Mar 22, 2021 07:45 AM VA-TOBACCO NEVER USED [place] [facility] Oct 02, 2019 10:02 AM VA-TOBACCO NEVER USED [place] [facility] May 21, 2018 09:05 AM CO-TOBACCO NEVER USED [place] [facility] December 25, 2017 06:14 PM INPT NO TOBACCO USE IN LAST 30 DAYS [facility] Oct 01, 2017 07:34 AM LIFETIME NON-TOBACCO USER [facility] Sep 28, 2016 08:44 AM LIFETIME NON-TOBACCO USER [facility] Oct 14, 2015 07:52 AM LIFETIME NON-TOBACCO USER [facility] Oct 11, 2014 07:59 AM LIFETIME NON-TOBACCO USER [facility] January 15, 2007 07:55 AM LIFETIME NON-TOBACCO USER [facility] Advance Directives: All historical and [...] Source Apr 18, 2018 ADVANCE DIRECTIVE JOVONLARISSA [facility] Apr 18, 2018 ADVANCE DIRECTIVE DISCUSSION LARISSA SIGALA [facility] December 23, 2017 CLINICAL WARNING FARHAT SCHMID [facility] May 11, 2003 ADVANCE DIRECTIVE BERT CASILLAS [facility] Radiology Reports: +/- 30 days [...] [facility] AM LUISANA EDDY [id number] -1935 M Exm Date: MAY 11, 2022@09:46 Req Phys: CODIE LEON Loc: OP Unknown /05-13-2022@05:05 Img Loc: MAIN X-RAY Service: [facility] (Case [id number] COMPLETE) CHEST 1 VIEW (RAD Detailed) CPT:80761 Proc Modifiers : PORTABLE EXAM Reason for Study: resp distress Clinical History: [place] IS NOT under investigation for COVID-19 or is COVID-19 negative Respiratory distress Responsible provider name and phone number to notify for critical findings if other than u ser placing the order and pager listed below: User placing orde rs pager: [phone] cell LAST CREATININE 1.6 H (05/11/22) Report Status: Verified Date Reported: MAY 11, 2022 Date Verified: MAY 11, 2022 Teacher Ballet E-Sig:/ES/SONJA OVALLES MD Report: CHEST 1 VIEW [...] Primary Interpreting Staff: SONJA OVALLES MD, RADIOLOGIST (Teacher Ballet) /CDC May 10, 2022 03:49 CT HEAD (P): RADIOLOGY,OUTSIDE [facility] PM LUISANA EDDY [id number] -1935 M SERVICE Exm Date: MAY 10, 2022@15:49 Req Phys: CODIE LEON Loc: OP Unknown /05-13-2022@05:05 Img Loc: CT IMAGING Service: [facility] (Case [id number] COMPLETE) CT HEAD/BRAIN W/O CONTRAST (CT Detailed) CPT:43746 Reason for Study: CHANGE IN MENTAL STATUS Clinical History: CHANGE IN MENTAL STATUS. ORDER ADMINISTRATIVELY ENTERED FOLLOWING SYSTEM OUTAGE. Report Status: Verified Date Reported: MAY 10, 2022 Date Verified: MAY 10, 2022 Teacher Ballet E-Sig: Report: CT HEAD/BRAIN W/O CONTRAST [PRINTSET] HISTORY: Change in mental status. COMPARISON: CT from 05/07/2022. TECHNIQUE: Contiguous axial CT images from the level of the skull base through the skull apex, with coronal and s agittal reformats, performed at the local [place] facility. 321 images were received by the [place] National Teleradiology Program (NTP) for interpretation. RADIATION [...] study. READING PHYSICIAN: Akash Mccoy M.D. -[phone] 05/10/2022 17:35 PDT [facility] National Teleradiology Program [phone] (For Medical Practitioner Use Only ) Attention Patients / Veterans: If you have ques tions or concerns about these test results, please contact your o rdering provider or primary care team. Primary Interpreting Staff: RADIOLOGY,OUTSIDE SERVICE, Staff Physician / May 08, 2022 07:45 CT T-SPINE (P): RADIOLOGY,OUTSIDE [facility] PM LUISANA EDDY [id number] [facility]1935 M SERVICE Exm Date: MAY 08, 2022@19:45 Req Phys: CODIE LEON Camron Cornejo Loc: OP Unknown /05-13-2022@05:05 [facility] Loc: CT IMAGING Service: PRIMARY CARE - MED OFFICE (Case [id number] COMPLETE) CT SPINE THORACIC W/O CONTR AST (CT Detailed) CPT:04870 Reason for Study: mrsa bacteremia, spinal surge ry - r/o abscess or discitis Clinical History: [place] IS NOT under investigation for COVID-19 or is COVID-19 negative Defer to radiologist for final CT protocol. Responsible provider name and phone number to n otify for critical findings if other than user placing the order a nd pager listed below: User placing orders pager: [phone] LAST 3: Collection DT Specimen Test Name [...] GFR (eGF 44 L Ref: >=60 Allergies: (Ruby only) SIMVASTATIN (Feb 29, 2004) CEPHALEXIN (Mar 01, 2004) Report Status: Verified Date Reported: MAY 08, 2022 Date Verified: MAY 08, 2022 Teacher Ballet E-Sig: Report: CT SPINE THORACIC W/O CONTRAST [PRINTSET] HISTORY:MRSA bacteremia NUMBER OF IMAGES:1151 COMPARISON: Correlation with images from recent CT abdomen and pelvis May 06, 2022 TECHNIQUE: A non contrast CT of the thoracic sp ine was performed at the local [place]. Images were subsequently sent to [place] [...] thoracic level. READING PHYSICIAN: Luisana Webb MD -[phone] 05/08/2022 19:20 PDT [facility] [employer] Teleradiology Program [phone] (For Medical Practitioner Use Only ) Attention Patients / Veterans: If you have ques tions or concerns about these test results, please contact your o rdering provider or primary care team. Primary Interpreting Staff: RADIOLOGY,OUTSIDE SERVICE, Staff Physician / May 08, 2022 04:48 CHEST 1 VIEW: RADIOLOGY,OUTSIDE [facility] PM LUISANA EDDY [id number] -1935 M SERVICE Exm Date: MAY 08, 2022@16:48 Req Phys: CODIE LEON Loc: OP Unknown /05-13-2022@05:05 Img Loc: MAIN X-RAY Service: PRIMARY CARE - MED OFFICE (Case [id number] COMPLETE) CHEST 1 VIEW (RAD Detailed) CPT:38630 Proc Modifiers : PORTABLE EXAM Reason for Study: dyspnea Clinical History: [place] IS NOT under investigation for COVID-19 or is COVID-19 negative acute worsening of dyspnea Responsible provider name and phone number to notify for critical findings if other than user placing the order and pager listed below: User placing orders pager: [phone] malini cell [phone] LAST CREATININE 1.1 (05/08/22) Report Status: Verified Date Reported: MAY 08, 2022 Date Verified: MAY 08, 2022 Teacher Ballet E-Sig: Report: CHEST 1 VIEW HISTORY: dyspnea COMPARISON: 05/06/2022 TECHNIQUE: Frontal view(s) of the chest, submit nola to the [place] National Teleradiology Program (NTP) for interp retation. FINDINGS: Reduced lung volumes. Progressive cardiomegaly, and vascular congestion as well as diffuse interstitial prom inence with probable small effusions. Impression: Expiratory exam with findings of CHF and mild e santa READING PHYSICIAN: Nghia Menjivar M.D. -[id number] 05/08/2022 18:57 EDT [facility] [employer] Teleradiology Program [phone] (For Medical Practitioner Use Only ) Attention Patients / Veterans: If you have ques tions or concerns about these test results, please contact your o rdering provider or primary care team. Primary Interpreting Staff: RADIOLOGY,OUTSIDE SERVICE, Staff Physician / May 07, 2022 10:29 CT HEAD (P): SHANI POLANCO [facility] AM LUISANA EDDY [id number] -1935 M Exm Date: MAY 07, 2022@10:29 Req Phys: BETO AYALA Loc: OP Unknown/0 05-13-2022@05:05 Img Loc: CT IMAGING Service: PRIMARY CARE - MED OFFICE (Case [id number] COMPLETE) CT HEAD/BRAIN W/O CONTRAST ( CT Detailed) CPT:86263 Reason for Study: seizure noted at [facility] Clinical History: [place] IS NOT under investigation for COVID-19 or is COVID-19 negative Defer to radiologist for final CT protocol. Responsible provider name and phone number to n otify for critical findings if other than user placing the order a nd pager listed below: User placing orders pager: [phone] LAST 3: Collection DT Specimen Test Name [...] GFR (eGF 44 L Ref: >=60 Allergies: (Ruby only) SIMVASTATIN (Feb 29, 2004) CEPHALEXIN (Mar 01, 2004) Report Status: Verified Date Reported: MAY 07, 2022 Date Verified: MAY 07, 2022 Teacher Ballet E-Sig:/ES/SHANI POLANCO MD Report: EXAM: CT HEAD/BRAIN W/O CONTRAST HISTORY: seizure noted at [facility] Reason for Study: seizure noted at [facility] [place] IS NOT under investigation for COVID-19 or is COVID-19 negative Defer to radiologist for final CT prot ocol. Responsible provider name and phone number to notify for cr itical findings if other than user placing the order and pager lis nola below: User placing orders pager: [phone] LAST 3: Collecti on DT Specimen Test [...] Primary Interpreting Staff: SHANI POLANCO MD, RADIOLOGIST (Teacher Ballet) /Javed May 06, 2022 11:40 CHEST 1 VIEW: RADIOLOGY,OUTSIDE [facility] LUISANA EDDY [id number] -1935 M SERVICE Exm Date: MAY 06, 2022@11:40 Req Phys: MODESTA VILLANUEVA Loc: [facility] EMERGENCY DEPT WALK-IN (Re Img Loc: MAIN X-RAY Service: Unknown (Case [id number] COMPLETE) CHEST 1 VIEW (RAD Detailed) C PT:78933 Proc Modifiers : PORTABLE EXAM Reason for [...] pager listed below: User placing orders pager: [phone] LAST CREATININE 1.2 (04/30/22) Report Status: Verified Date Reported: MAY 06, 2022 Date Verified: MAY 06, 2022 Teacher Ballet E-Sig: Report: Technique: Frontal chest. No comparison Impression: Cardiac silhouette is mildly enlarged. There is mild pulmonary venous congestion. No definite pleural effusion . No pneumothorax seen. READING PHYSICIAN: Vern Donnelly M.D. -[id number] [phone] 05/06/2022 13:26 EDT [facility] National Teleradiology Program [phone] (For Medical Practitioner Use Only ) Attention Patients / Veterans: If you have ques tions or concerns about these test results, please [facility] or primary care team. Primary Interpreting Staff: RADIOLOGY,OUTSIDE SERVICE, Staff Physician / May 06, 2022 10:36 CT (AP) ABDOMEN/PELVIS (P): RADIOLOGY,OUTSIDE [facility] LUISANA EDDY [phone] 1935 M SERVICE Exm Date: MAY 06, 2022@10:36 Req Phys: MODESTA VILLANUEVA Loc: [facility] EMERGENCY DEPT WALK-IN (Re Img Loc: CT IMAGING Service: Unknown (Case 66 COMPLETE) CT (AP) ABDOMEN/PELVIS W CONT RAST(CT Detailed) CPT:69535 Reason for Study: fever, back pain Clinical History: fever, back pain, ecchymosis left low back consideration for intra-abdominal process, aort ic changes, LS spine trauma, kidney inflammation, GI or obs truction [place] IS under investigation (PUI) for COVID- 19 or is COVID-19+ Defer to radiologist for final CT protocol. Please enter pertinent clinical history on the next page. Responsible provider name and phone number to n otify for critical findings if other than user placing the order a nd pager listed below: User placing orders pager: [phone] LAST 3: Collection DT Specimen Test Name [...] ESTIMATED GFR(eGF 44 L Ref: >=60 Allergies: (Ruby only) SIMVASTATIN (Feb 29, 2004) CEPHALEXIN (Mar 01, 2004) To see allergies from all [facility] locations click Re ports tab>Remote Data>All Available Sites>Clinical Reports>Aller gies. Report Status: Verified Date Reported: MAY 06, 2022 Date Verified: MAY 06, 2022 Teacher Ballet E-Sig: Report: Exam: CT (AP) ABDOMEN/PELVIS W CONTRAST [PRINTS ET] Clinical History: fever, back pain Number of images: 918 Comparison: No priors available Technique: The study was protocoled and supervi sed [facility] the local [facility] of the abdomen and pelvis was performed afte r the uneventful administration of iodinated contrast. Images we re received by the [place] National Teleradiology Program (NTP) for interpretation. Total [...] findings, above. READING PHYSICIAN: Eduin Donaldson M.D. -[phone] 05/06/2022 12:48 [facility] [employer]comradiology Program [phone] (For Medical Practitioner Use Only ) Attention Patients / Veterans: If you have ques tions or concerns about these test results, please contact [facility] provider or primary care team. Primary Interpreting Staff: RADIOLOGY,OUTSIDE SERVICE, Staff Physician / May 06, 2022 10:35 CT HEAD/BRAIN W/O CONTRAST: RADIOLOGY,OUTSIDE [facility] LUISANA EDDY [id number] -1935 M SERVICE Exm Date: MAY 06, 2022@10:35 Req Phys: MODESTA VILLANUEVA Loc: [facility] EMERGENCY DEPT WALK-IN (Re Img Loc: CT IMAGING Service: Unknown (Case 64 COMPLETE) CT HEAD/BRAIN W/O CONTRAST (C T Detailed) CPT:95156 Reason for Study: falls, blood thinner, AMS, se izure Clinical History: falls, blood thinner, AMS, seizure IS under investigation (PUI) for COVID- 19 or is COVID-19+ Defer to radiologist for final CT protocol. Responsible provider name and phone number to n otify for critical findings if other than user placing the order a nd pager listed below: User placing orders pager: [phone] LAST 3: Collection DT Specimen Test Name [...] ESTIMATED GFR(eGF 44 L Ref: >=60 Allergies: (Ruby only) SIMVASTATIN (Feb 29, 2004) CEPHALEXIN (Mar 01, 2004) To see allergies from all VA locations click Re ports tab>Remote Data>All Available Sites>Clinical Reports>Lashon gironni. Report Status: Verified Date Reported: MAY 06, 2022 Date Verified: MAY 06, 2022 Teacher Ballet E-Sig: Report: CT HEAD/BRAIN W/O CONTRAST Clinical History: falls, blood thinner, AMS, se izure Number of Images: 532 Comparison: 03/12/2022 Technique: The study was protocoled and supervi sed [facility] the local [facility]. CT of the head without contrast. I mages were subsequently received by the [place] National Telera diology Program (NTP) for interpretation. [...] T findings. READING PHYSICIAN: Eduin Donaldson M.D. -[phone] 05/06/2022 12:30 [facility] National Teleradiology Program [phone] (For Medical Practitioner Use Only ) Attention Patients / Veterans: If you have ques tions or concerns about these test results, please contact your o [facility] provider or primary care team. Primary Interpreting Staff: RADIOLOGY,OUTSIDE SERVICE, Staff Physician / May 06, 2022 10:35 CT CERVICAL SPINE W/O CONTRAST: RADIOLOGY,OUT SIDE [facility] AM LUISANA EDDY [id number] -1935 M SERVICE Exm Date: MAY 06, 2022@10:35 Req Phys: MODESTA VILLANUEVA Loc: [facility] EMERGENCY DEPT WALK-IN (Re Img Loc: CT IMAGING Service: Unknown (Case 65 COMPLETE) CT CERVICAL SPINE W/O CONTRAS T (CT Detailed) CPT:35278 Reason for Study: falls, blood thinner, AMS, se izure Clinical History: falls, blood thinner, AMS, seizure [place] IS under investigation (PUI) for COVID- 19 or is COVID-19+ Defer to radiologist for final CT protocol. Responsible provider name and phone number to n otify for critical findings if other than user placing the order a nd pager listed below: User placing orders pager: [phone] LAST 3: Collection DT Specimen Test Name [...] ESTIMATED GFR(eGF 44 L Ref: >=60 Allergies: ([place] only) SIMVASTATIN (Feb 29, 2004) CEPHALEXIN (Mar 01, 2004) To see allergies from all [place] locations click Re ports tab>Remote Data>All Available Sites>Clinical Reports>Aller gies. Report Status: Verified Date Reported: MAY 06, 2022 Date Verified: MAY 06, 2022 [employer] E-Sig: Report: CT CERVICAL SPINE W/O CONTRAST HISTORY:falls, blood thinner, AMS, seizure NUMBER OF IMAGES:[id number] COMPARISON: None available. TECHNIQUE: A non contrast CT of the cervical sp ine was performed at the local [place]. Images were subsequently sent to [facility] [...] 11 mm subcutaneous cyst in the ri [facility] upper neck. Impression: -Motion artifact limits the exam. -Given this limitation, no acute osseous abnorm ality. -Moderate multilevel degenerative change throug hout the cervical spine. -Ancillary findings, above. READING PHYSICIAN: Eduin Donaldson M.D. [phone] 05/06/2022 12:33 [facility] National Teleradiology Program [phone] (For Medical Practitioner Use Only ) Attention Patients / Veterans: If you have ques tions or concerns about these test results, please contact your [facility] provider or primary care team. [...] comes from all [place] treatment facilities. Date/Time Pathology Report Provider Source May 09, 2022 05:30 AM LR MICROBIOLOGY REPORT: [facility] Reporting Lab: [facility] [CLIA# [id number]] [place] [address] Accession [UID]: [id number] [[id number]] Receiv ed: May 09, 2022@01:35 Collection sample: BLOOD Collection date: Apr 05:30 Provider: CODIE LEON Comment on specimen: LEFT ARM, RECEIVED 2 BLOOD CULTURE BOTTLES Test(s) ordered: CULTURE & SUSCEPTIBILITY...... 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 R TRIMETH/SULFA................. S TETRACYCLINE.................. S CLINDAMYCIN................... S RIFAMPIN...................... S VANCOMYCIN.................... S Bacteriology Remark(s): VANCOMYCIN SHAMIKA: <=0.5 ug/mL THIS REPORT IS FINAL =--=--=--=--=--=--=--=--=--=--=--=--=--= --=--=--=--=--=--=--=--=--=--=--=--=-- Performing Laboratory: Bacteriology Report Performed By: [facility] [CLIA# [id number]] [place] [address] May 08, 2022 03:23 PM LR MICROBIOLOGY REPORT: [facility] Reporting Lab: [facility] [CLIA# [id number]] [place] [address] Accession [UID]: [id number] [[id number]] Receiv ed: May 08, 2022@15:41 Collection sample: BLOOD Collection date: Apr 15:23 Provider: CODIE LEON Comment on specimen: LEFT ARM, RECEIVED 2 BLOOD CULTURE BOTTLES Test(s) ordered: CULTURE & SUSCEPTIBILITY...... completed: May 10, 2022 * BACTERIOLOGY FINAL REPORT => May 10, 2022 16:3 1 TECH CODE: [id number] CULTURE RESULTS: GROWTH SAME THAT OF ANOTHER CULTURE Comment: FOR SUSCEPTIBILITY REPORT SEE PREVIOUS POSITIVE SAME MB [id number] ( 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 from Anaerobic bottle ) ( Recovered from Aerobic bottle ) Bacteriology Remark(s): THIS REPORT IS FINAL =--=--=--=--=--=--=--=--=--=--=--=--=--= --=--=--=--=--=--=--=--=--=--=--=--=-- Performing Laboratory: Bacteriology Report Performed By: [facility] [CLIA# [id number]] [place] [address] May 08, 2022 03:21 PM LR MICROBIOLOGY REPORT: [facility] Reporting Lab: [facility] [CLIA# [id number]] [place] [address] Accession [UID]: [id number] [[id number]] Receiv ed: May 08, 2022@15:40 Collection sample: BLOOD Collection date: Apr 15:21 Provider: CODIE LEON Comment on specimen: RT ARM, RECEIVED 2 BLOOD CU LTURE BOTTLES Test(s) ordered: CULTURE & SUSCEPTIBILITY...... completed: May 10, 2022 * BACTERIOLOGY FINAL REPORT => May 10, 2022 16:3 1 TECH CODE: [id number] CULTURE RESULTS: GROWTH SAME THAT OF ANOTHER CULTURE Comment: FOR SUSCEPTIBILITY REPORT SEE PREVIOUS POSITIVE SAME MB 22 [id number] ( 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 from Anaerobic bottle ) ( Recovered from Aerobic bottle ) Bacteriology Remark(s): THIS REPORT IS FINAL =--=--=--=--=--=--=--=--=--=--=--=--=--= --=--=--=--=--=--=--=--=--=--=--=--=-- Performing Laboratory: Bacteriology Report Performed By: [facility] [CLIA# [id number]] [place] [address] May 07, 2022 05:30 AM LR MICROBIOLOGY REPORT: [facility] Reporting Lab: [facility] [CLIA# [id number]] [place] [address] Accession [UID]: [id number] [[id number]] Receiv ed: May 07, 2022@01:35 Collection sample: [...] REPORT SEE PREVIOUS POSITIVE SAME MB 22 [id number] ( 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 from Aerobic bottle ) ( Recovered from Anaerobic bottle ) Bacteriology Remark(s): THIS REPORT IS FINAL =--=--=--=--=--=--=--=--=--=--=--=--=--= --=--=--=--=--=--=--=--=--=--=--=--=-- Performing Laboratory: Bacteriology Report Performed By: [facility] [CLIA# [id number]] [place] [address] May 06, 2022 10:51 AM LR MICROBIOLOGY REPORT: [facility] Reporting Lab: [facility] [CLIA# [id number]] [place] [address] Accession [UID]: [id number] [[id number]] Receiv ed: May 06, 2022@11:32 Collection sample: [...] --=--=--=--=--=--=--=--=--=--=--=--=-- Performing Laboratory: Bacteriology Report Performed By: [facility] [CLIA# [id number]] [place] [address] May 06, 2022 10:34 AM LR MICROBIOLOGY REPORT: [facility] Reporting Lab: [facility] [CLIA# [id number]] [place] [address] Accession [UID]: [id number] [[id number]] Receiv ed: May 06, 2022@10:51 Collection sample: BLOOD Collection date: Apr 10:34 Provider: MODESTA VILLANUEVA Comment on specimen: RECEIVED 2 BLOOD CULTURE [facility] Test(s) ordered: CULTURE & SUSCEPTIBILITY...... 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 [...] --=--=--=--=--=--=--=--=--=--=--=--=-- Performing Laboratory: Bacteriology Report Performed By: [facility] [CLIA# [id number]] [place] [address] May 06, 2022 10:00 AM LR MICROBIOLOGY REPORT: [facility] Reporting Lab: [facility] [CLIA# [id number]] [place] [address] Accession [UID]: [id number] [[id number]] Receiv ed: May 06, 2022@10:41 Collection sample: [...] SEE PREVIOUS POSITIVE SAME LUIS MIGUEL 22 [id number] ( 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 from Anaerobic bottle ) ( Recovered from Aerobic bottle ) Bacteriology Remark(s): THIS REPORT IS FINAL =--=--=--=--=--=--=--=--=--=--=--=--=--= --=--=--=--=--=--=--=--=--=--=--=--=-- Performing Laboratory: Bacteriology Report Performed By: [facility] [CLIA# [id number]] [place] [address]
--- OUTSIDE RECORDS SUMMARY | 2022-05-15 09:30 | XMS_ITS | Encounter Summary ---
:1935 Author Organization [facility] rs Address [address] [place] [address] Support Name Relationship Address Phone WADE LORENZO Unavailable [address] [place] [address] WADE LORENZO Unavailable [address] [place] [address] ARACELI MARSHALL Unavailable [address] [place] [address] GOMARILIA VAZQUEZA Unavailable [address] [place] [address] Insurance Providers: All historical and current Section Date Range: From patient's date of to the date document was created.This section includes the names of all active insurance providers for the patient. Insurance Type of Plan Start of End of Group Member Insurance Policy [facility] Provider Coverage Name Policy Policy Number ID Provider's Bales's Relationship Coverage Coverage Telephone Name to Policy Number Bales [place] Aug 19, [id number] Kristel EDDY [facility] (WNR) ADVANTAGE (WNR) 2016 8 [id number] [phone] [facility] 1 [place] MED[place] M[place] Aug 19, [id number] Kristel EDDY [facility] (WNR) ADVANTAGE (WNR) 2016 8 [id number] [phone] [facility] 1 Selected Encounter This section includes the information on record at NE for the Encounter. Date/Time Encounter Type Encounter Reason Provider Source Description May 07, 2022 INJ PERFLUTREN CARDIAC ECHO ICD-10-CM I33.9 GAIL LOJA 11:31 AM LIP MICROS,ML Acute and subacute endocarditis, unspecified with Provider Comments: Acute and Subacute Endocarditis, unspecified IHE Encounter Template Text not used by NE Assessments - Encounter Diagnoses This section includes the primary and secondary diagnoses documented for the Encounter. Date/Time Primary/Secondary Diagnosis Name Provider Source Diagnosis May 07, 2022 PRIMARY Acute and BRENDEN CLAUDIO 11:32 AM subacute HCS endocarditis, unspecified Plan of Treatment: Future Appointments (+ 6 months) and Future Tests (+/- 45 days) The Plan of Treatment section includes future care activities for the patient from all [place] treatmentfacilities. This section includes future appointments and future orders which are active, pending orscheduled.Future Appointments This section includes appointments that were scheduled to occur 6 months from the date of the Encounter, up to a maximum of 20 appointments. The data comes from all [place] treatment facilities. Appointment Date/Time Appointment Type Appointment Facili ty Name May 11, 2022 06:15 PM AMBULATORY - NONE [facility] Jul 23, 2022 08:00 AM AMBULATORY - NEUROLOGY [facility] Active, Pending, and Scheduled Orders This section includes a listing of several types of active, pending, and scheduled orders, including clinic medications orders, diagnostic test orders, procedure orders and consult orders; where the start date of the order is 45 days before the date of the Encounter or 45 days after the date of the Encounter. The data comes from all [place] treatment facilities. Test Date/Time Test Type Test Details Facility Name Apr 30, 2022 08:21 Laboratory - Chemistry URINALYSIS URINE WC ON CE [facility] AM Order Apr 30, 2022 08:21 Laboratory - CULTURE & SUSCEPTIBILITY [facility] AM Microbiology Order URINE WC May 06, 2022 12:00 Laboratory - Blood ABO/RH - LAB BLOOD [facility] AM Bank Order May 06, 2022 10:11 Laboratory - Blood TYPE & SCREEN - LAB [facility] AM Bank Order BLOOD WC May 06, 2022 10:27 [facility] AM Medication Order May 06, 2022 10:28 [facility] AM Infusion Order May 06, 2022 10:34 [facility] AM Infusion Order May 06, 2022 10:41 [facility] AM Infusion Order May 06, 2022 12:15 [facility] PM Medication Order May 06, 2022 01:31 [facility] PM Medication Order May 06, 2022 04:49 Pharmacy - Clinic [facility] PM Medication Order May 07, 2022 01:00 Laboratory - CULTURE & SUSCEPTIBILITY [facility] PM Microbiology Order BLOOD WC ONCE May 11, 2022 09:07 Laboratory - CULTURE & SUSCEPTIBILITY [facility] AM Microbiology Order BLOOD WC May 11, 2022 09:07 Laboratory - CULTURE & SUSCEPTIBILITY [facility] AM Microbiology Order BLOOD WC May 11, 2022 09:38 Laboratory - Chemistry EOSINOPHIL SMEAR,URINE [facility] AM Order URINE WC ONCE May 11, 2022 09:38 Laboratory - Chemistry URINALYSIS URINE WC ON CE [facility] AM Order May 11, 2022 09:38 Laboratory - Chemistry FENA URINE WC ONCE [facility] AM Order Lab Results: +/- 30 days of the encounter This section includes the Chemistry and Hematology Lab Results on record with NE for the patient. Radiology Reports and Pathology Reports are provided separately, in subsequent sections.Lab Results This section contains the Chemistry/Hematology Results that were resulted 30 days before or 30 daysafter the date of the Encounter. Date/Time Source Result Type Result - Unit Interpretation Reference Range Comment May 11, 2022 11:13 [facility] FINGERSTICK GLUCOSE Speci men Type: BLOOD AM Comment: Mark casillas Nurse Notified Ordering Provid er: CODIE LEON Report Released Date/Time: May 11, 2022 11:53 AM Reporting Lab: [facility] [address] [facility] [address] Performing Lab: [facility] [address] [facility] [address] FINGERSTICK GLUCOSE 367 H 70-100 May 11, 2022 07:05 AM [facility] CBC Specim en Type: BLOOD No comment enter ed. Ordering Provid er: OG DIAL Report Released Date/Time: May 11, 2022 04:46 AM Reporting Lab: [facility] [address] [facility] [address] Performing Lab: [facility] [address] [facility] [address] WBC 15.93 H 4.0-11.0 RBC 3.60 L 4.6-6.2 HGB 11.2 L 13.5-17.9 HCT 35.3 L 41-54 MCV 98.1 80-100 MCH 31.1 27-33 MCHC 31.7 L 32.0-37.5 PLT 231 150-400 MPV 11.2 H 7.4-10.4 RDW 15.2 H 11.5-14.5 May 11, 2022 07:05 [facility] BASIC METABOLIC Specimen Type: PLASMA AM PANEL+MG No comment enter ed. Ordering Provid er: OG DIAL Report Released Date/Time: May 11, 2022 04:46 AM Reporting Lab: [facility] [address] [facility] [address] Performing Lab: [facility] [address] [facility] [address] CREATININE 1.6 H 0.7-1.2 UREA NITROGEN 28 H 8-26 GLUCOSE 396 H 70-100 SODIUM 150 H 136-145 POTASSIUM 3.7 3.5-5.1 CHLORIDE 120 H 98-107 CO2 23 22-29 CALCIUM 8.4 8.4-10.2 MAGNESIUM 2.1 1.6-2.6 ANION GAP 7 5-15 CREAT EGFR(CKD-EPI) 42 L >60 May 11, 2022 07:05 AM [facility] BNP Specim en Type: PLASMA No comment enter ed. Ordering Provid er: CODIE LEON Report Released Date/Time: May 11, 2022 09:15 AM Reporting Lab: [facility] [address] [facility] [address] Performing Lab: [facility] [address] [facility] [address] BNP 59 <99 May 11, 2022 07:05 AM [facility] CK,TOTAL Specim en Type: PLASMA No comment enter ed. Ordering Provid er: CODIE LEON Report Released Date/Time: May 11, 2022 09:08 AM Reporting Lab: [facility] [address] [facility] [address] Performing Lab: [facility] [address] [facility] [address] CK,TOTAL 16 L 39-208 May 11, 2022 07:05 [facility] LIVER FUNCTION TESTS Spec imen Type: PLASMA AM No comment enter ed. Ordering Provid er: CODIE LEON Report Released Date/Time: May 11, 2022 09:08 AM Reporting Lab: [facility] [address] [facility] [address] Performing Lab: [facility] [address] [facility] [address] BILIRUBIN, TOTAL 1.6 H 0.2-1.2 ALKALINE PHOSPHATASE 102 40-150 ALT/SGPT 42 <55 AST/SGOT 30 <34 GAMMA GTP 52 <64 DIR. BILIRUBIN 1.2 H <0.5 May 11, 2022 06:14 [facility] FINGERSTICK GLUCOSE Speci men Type: BLOOD AM Comment: Mark casillas Nurse Notified Ordering Provid er: CODIE LEON Report Released Date/Time: May 11, 2022 06:42 AM Reporting Lab: [facility] [address] [facility] [address] Performing Lab: [facility] [address] [facility] [address] FINGERSTICK GLUCOSE 345 H 70-100 May 11, 2022 02:24 [facility] FINGERSTICK GLUCOSE Speci men Type: BLOOD AM Comment: Mark casillas Ordering Provid er: CODIE LEON Report Released Date/Time: May 11, 2022 02:44 AM Reporting Lab: [facility] [address] [facility] [address] Performing Lab: [facility] [address] [facility] [address] FINGERSTICK GLUCOSE 375 H 70-100 May 10, 2022 08:38 [facility] FINGERSTICK GLUCOSE Speci men Type: BLOOD PM Comment: Mark casillas Ordering Provid er: CODIE LEON Report Released Date/Time: May 11, 2022 12:31 AM Reporting Lab: [facility] [address] [facility] [address] Performing Lab: [facility] [address] [facility] [address] FINGERSTICK GLUCOSE 346 H 70-100 May 10, 2022 05:05 [facility] FINGERSTICK GLUCOSE Speci men Type: BLOOD PM Comment: Mark casillas Nurse Notified Ordering Provid er: CODIE LEON Report Released Date/Time: May 10, 2022 11:50 PM Reporting Lab: [facility] [address] [facility] [address] Performing Lab: [facility] [address] [facility] [address] FINGERSTICK GLUCOSE 245 H 70-100 May 10, 2022 02:00 [facility] VANCOMYCIN (TROUGH) Speci men Type: PLASMA PM No comment enter ed. Ordering Provid er: CODIE LEON Report Released Date/Time: May 11, 2022 01:34 AM Reporting Lab: [facility] [address] Performing Lab: [facility] [address] VANCOMYCIN (TROUGH) 31.8 H 10.0-15.0 May 10, 2022 [facility] BASIC METABOLIC Specimen Typ e: PLASMA 02:00 PM PANEL+MG No comment enter ed. Ordering Provid er: CODIE LEON Report Released Date/Time: May 11, 2022 01:34 AM Reporting Lab: [facility] [address] Performing Lab: [facility] [address] CREATININE 1.1 .7-1.2 UREA NITROGEN 22 8-26 GLUCOSE 279 H 70-100 SODIUM 150 H 136-145 POTASSIUM 3.2 L 3.5-5.1 CHLORIDE 116 H 98-107 CO2 23 22-29 CALCIUM 8.5 8.4-10.2 MAGNESIUM 2.0 1.6-2.6 ANION GAP 11 5-15 CREAT EGFR(CKD-EPI) 65 >60 May 10, 2022 01:20 PM [facility] CBC & DIFF Specim en Type: BLOOD Comment: Automa nola Differential Performed Ordering Provid er: MD ESTEBAN Report Released Date/Time: May 10, 2022 08:52 PM Reporting Lab: [facility] [address] Performing Lab: [facility] [address] WBC 16.24 H 4.0-11.0 RBC 3.76 L [...] 0.28 H 0-0.1 May 10, 2022 11:07 [facility] FINGERSTICK GLUCOSE Speci men Type: BLOOD AM Comment: Mark casillas Nurse Notified Ordering Provid er: CODIE LEON Report Released Date/Time: May 11, 2022 12:31 AM Reporting Lab: [facility] [address] [facility] [address] Performing Lab: [facility] [address] [facility] [address] FINGERSTICK GLUCOSE 253 H 70-100 May 10, 2022 06:16 [facility] FINGERSTICK GLUCOSE Speci men Type: BLOOD AM Comment: Mark casillas Nurse Notified Ordering Provid er: CODIE LEON Report Released Date/Time: May 10, 2022 11:50 PM Reporting Lab: [facility] [address] [facility] [address] Performing Lab: [facility] [address] [facility] [address] FINGERSTICK GLUCOSE 271 H 70-100 May 09, 2022 09:07 [facility] FINGERSTICK GLUCOSE Speci men Type: BLOOD PM Comment: Mark casillas Ordering Provid er: CODIE LEON Report Released Date/Time: May 10, 2022 11:50 PM Reporting Lab: [facility] [address] [facility] [address] Performing Lab: [facility] [address] [facility] [address] FINGERSTICK GLUCOSE 209 H 70-100 May 09, 2022 05:33 [facility] FINGERSTICK GLUCOSE Speci men Type: BLOOD PM Comment: Mark casillas Nurse Notified Ordering Provid er: CODIE LEON Report Released Date/Time: May 09, 2022 05:53 PM Reporting Lab: [facility] [address] [facility] [address] Performing Lab: [facility] [address] [facility] [address] FINGERSTICK GLUCOSE 251 H 70-100 May 09, 2022 02:09 [facility] VANCOMYCIN (PEAK) Specime n Type: SERUM PM No comment enter ed. Ordering Provid er: AMARIS DE JESUS Report Released Date/Time: May 09, 2022 09:33 AM Reporting Lab: [facility] [address] [facility] [address] Performing Lab: [facility] [address] [facility] [address] VANCOMYCIN (PEAK) 24.2 20.0-40.0 May 09, 2022 11:19 [facility] FINGERSTICK GLUCOSE Speci men Type: BLOOD AM Comment: Mark casillas Nurse Notified Ordering Provid er: CODIE LEON Report Released Date/Time: May 09, 2022 11:38 AM Reporting Lab: [facility] [address] [facility] [address] Performing Lab: [facility] [address] [facility] [address] FINGERSTICK GLUCOSE 240 H 70-100 May 09, 2022 08:13 [facility] VANCOMYCIN (TROUGH) Speci men Type: SERUM AM No comment enter ed. Ordering Provid er: AMARIS DE JESUS Report Released Date/Time: May 08, 2022 11:14 AM Reporting Lab: [facility] [address] [facility] [address] Performing Lab: [facility] [address] [facility] [address] VANCOMYCIN (TROUGH) 16.1 H 10.0-15.0 May 09, 2022 05:33 AM [facility] CBC & DIFF Specim en Type: BLOOD Comment: Automa nola Differential Performed Ordering Provid er: CODIE LEON Report Released Date/Time: May 08, 2022 05:27 PM Reporting Lab: [facility] [address] [facility] [address] Performing Lab: [facility] [address] [facility] [address] WBC 14.92 H 4.0-11.0 RBC 3.41 L [...] GRAN 0.16 H 0-0.1 May 09, 2022 [facility] COMPREHENSIVE METABOLIC Spec imen Type: PLASMA 05:32 AM PANEL+MG No comment enter ed. Ordering Provid er: CODIE LEON Report Released Date/Time: May 08, 2022 05:27 PM Reporting [facility] [address] Performing [facility] [address] CREATININE 1.2 0.7-1.2 UREA NITROGEN 25 8-26 [...] 59 L >60 May 09, 2022 05:16 [facility] FINGERSTICK GLUCOSE Speci men Type: BLOOD AM Comment: Mark casillas Nurse Notified Ordering Provid er: CODIE LEON Report Released Date/Time: May 09, 2022 07:27 AM Reporting Lab[facility] [address] Performing Lab: [facility] [address] FINGERSTICK GLUCOSE 295 H 70-100 May 08, 2022 09:32 PM [facility] EXTRA MINT TUBE Specim en Type: PLASMA No comment enter ed. Ordering Provid er: MD ESTEBAN Report Released Date/Time: May 08, 2022 09:32 PM Reporting Lab: [facility] [address] [facility] [address] Performing [facility]: [facility] [address] EXTRA MINT TUBE RECEIVED May 08, 2022 09:32 PM [facility] EXTRA PURPLE TUBE Spec imen Type: BLOOD No comment enter ed. Ordering Provid er: MD ESTEBAN Report Released Date/Time: May 08, 2022 09:32 PM Reporting Lab: [facility] [address] [facility] [address] Performing Lab: [facility] [address] [facility] [address] EXTRA PURPLE TUBE RECEIVED May 08, 2022 09:32 [facility] EXTRA GOLD GEL TUBE Speci men Type: SERUM PM No comment enter ed. Ordering Provid er: MD ESTEBAN Report Released Date/Time: May 08, 2022 09:32 PM Reporting Lab: [facility] [address] [facility] [address] Performing Lab: [facility] [address] [facility] [address] EXTRA GOLD GEL TUBE RECEIVED May 08, 2022 09:32 PM [facility] EXTRA BLUE TUBE Specim en Type: PLASMA No comment enter ed. Ordering Provid er: MD ESTEBAN Report Released Date/Time: May 08, 2022 09:32 PM Reporting Lab: [facility] [address] [facility] [address] Performing Lab: [facility] [address] [facility] [address] EXTRA BLUE TUBE RECEIVED May 08, 2022 09:32 PM [facility] EXTRA BRASWELL TUBE Specim en Type: PLASMA No comment enter ed. Ordering Provid er: MD ESTEBAN Report Released Date/Time: May 08, 2022 09:37 PM Reporting Lab: [facility] [address] [facility] [address] Performing Lab: [facility] [address] [facility] [address] EXTRA BRASWELL TUBE RECEIVED May 08, 2022 09:32 PM [facility] LACTIC ACID Specim en Type: PLASMA No comment enter ed. Ordering Provid er: OG DIAL Report Released Date/Time: May 08, 2022 09:49 PM Reporting Lab: [facility] [address] [facility] [address] Performing Lab: [facility] [address] [facility] [address] LACTIC ACID 2.5 H 0.5-2.2 May 08, 2022 09:32 PM [facility] BNP Specim en Type: PLASMA No comment enter ed. Ordering Provid er: OG DIAL Report Released Date/Time: May 08, 2022 09:50 PM Reporting Lab: [facility] [address] [facility] [address] Performing Lab: [facility] [address] BNP 897 H <99 May 08, 2022 09:32 PM [facility] CBC Specim en Type: BLOOD No comment enter ed. Ordering Provid er: OG DIAL Report Released Date/Time: May 08, 2022 09:50 PM Reporting Lab: [facility] [address] Performing Lab: [facility] [address] WBC 18.54 H 4.0-11.0 RBC 3.68 L 4.6-6.2 HGB 11.5 L 13.5-17.9 HCT 35.1 L 41-54 MCV 95.4 80-100 MCH 31.3 27-33 MCHC 32.8 32.0-37.5 PLT 221 150-400 MPV 11.1 H 7.4-10.4 RDW 14.9 H 11.5-14.5 May 08, 2022 09:32 PM [facility] BLOOD GASES Specim en Type: VENOUS BLOOD Comment: O2 THE RAPY = 3L PM Ordering Provid er: OG DIAL Report Released Date/Time: May 08, 2022 09:50 PM Reporting Lab: [facility] [address] Performing Lab: [facility] [address] PH 7.36 7.33-7.43 PCO2 47 41-51 BICARBONATE 24.4 21.0-30.0 PO2 31 L 35-40 OXYGEN SATURATION 54.7 L 70.0-75.0 PH(TEMP CORRECTED) 7.37 7.33-7.43 PCO2(TEMP CORRECTED) 46 41-51 PO2(TEMP CORRECTED) 31 L 35-40 PATIENT TEMPERATURE 36.7 May 08, 2022 [facility] COMPREHENSIVE METABOLIC Spec imen Type: PLASMA 09:32 PM PANEL+MG No comment enter ed. Ordering Provid er: OG DIAL Report Released Date/Time: May 08, 2022 09:50 PM Reporting Lab: [facility] [address] Performing Lab: [facility] [address] CREATININE 1.3 H 0.7-1.2 UREA NITROGEN 26 [...] 54 L >60 May 08, 2022 08:27 [facility] FINGERSTICK GLUCOSE Speci men Type: BLOOD PM Comment: Mark casillas Nurse Notified Ordering Provid er: CODIE LEON Report Released Date/Time: May 08, 2022 08:55 PM Reporting Lab: [facility] [address] [facility] [address] Performing Lab: [facility] [address] [facility] [address] FINGERSTICK GLUCOSE 272 H 70-100 May 08, 2022 06:56 [facility] FINGERSTICK GLUCOSE Speci men Type: BLOOD PM Comment: Mark casillas Ordering Provid er: CODIE LEON Report Released Date/Time: May 08, 2022 07:08 PM Reporting Lab: [facility] [address] [facility] [address] Performing Lab: [facility] [address] [facility] [address] FING[place]STICK GLUCOSE 262 H 70-100 May 08, 2022 04:50 [facility] FINGERSTICK GLUCOSE Speci men Type: BLOOD PM Comment: Nurse Notified Ordering Provid er: CODIE LEON Report Released Date/Time: May 08, 2022 05:14 PM Reporting Lab: [facility] [address] [facility] [address] Performing Lab: [facility] [address] [facility] [address] FINGERSTICK GLUCOSE 330 H 70-100 May 08, 2022 11:21 [facility] FINGERSTICK GLUCOSE Speci men Type: BLOOD AM Comment: Mark casillas Nurse Notified Ordering Provid er: CODIE LEON Report Released Date/Time: May 08, 2022 11:51 AM Reporting Lab: [facility] [address] [facility] [address] Performing Lab: [facility] [address] [facility] [address] FINGERSTICK GLUCOSE 231 H 70-100 May 08, 2022 07:25 AM [facility] CBC & DIFF Specim en Type: BLOOD Comment: Automa nola Differential Performed Ordering Provid er: BETO AYALA Report Released Date/Time: May 07, 2022 12:28 PM Reporting Lab: [facility] [address] [facility] [address] Performing Lab: [facility] [address] WBC 16.29 H 4.0-11.0 RBC 3.38 L [...] GRAN 0.26 H 0-0.1 May 08, 2022 [facility] PROTHROMBIN TIME/INR Specime n Type: PLASMA 07:25 AM No comment enter ed. Ordering Provid er: BETO AYALA Report Released Date/Time: May 07, 2022 12:28 PM Reporting Lab: [facility] [address] [facility] [address] Performing Lab: [facility] [address] .INR 1.2 H 0.8-1.1 .PT 14.2 H 9.4-12.5 May 08, 2022 [facility] COMPREHENSIVE METABOLIC Spec imen Type: PLASMA 07:25 AM PANEL+MG No comment enter ed. Ordering Provid er: BETO AYALA Report Released Date/Time: May 07, 2022 12:28 PM Reporting Lab: [facility] [address] [facility] [address] Performing Lab: [facility] [address] [facility] [address] CREATININE 1.1 0.7-1.2 UREA NITROGEN 27 H [...] EGFR(CKD-EPI) 65 >60 May 08, 2022 06:53 [facility] FINGERSTICK GLUCOSE Speci men Type: BLOOD AM Comment: Mark casillas Ordering Provid er: CODIE LEON Report Released Date/Time: May 08, 2022 07:18 AM Reporting Lab: [facility] [address] [facility] [address] Performing Lab: [facility] [address] [facility] [address] FINGERSTICK GLUCOSE 276 H 70-100 May 07, 2022 08:36 [facility] FINGERSTICK GLUCOSE Speci men Type: BLOOD PM Comment: Nurse Notified Ordering Provid er: CODIE LEON Report Released Date/Time: May 08, 2022 12:29 AM Reporting Lab: [facility] [address] [facility] [address] Performing Lab: [facility] [address] [facility] [address] FINGERSTICK GLUCOSE 282 H 70-100 May 07, 2022 07:04 PM [facility] LACTIC ACID Specim en Type: PLASMA No comment enter ed. Ordering Provid er: BETO AYALA Report Released Date/Time: May 07, 2022 06:28 PM Reporting Lab: [facility] [address] [facility] [address] Performing Lab: [facility] [address] [facility] [address] LACTIC ACID 2.0 0.5-2.2 May 07, 2022 04:46 [facility] FINGERSTICK GLUCOSE Speci men Type: BLOOD PM Comment: Nurse Notified Ordering Provid er: BETO AYALA Report Released Date/Time: May 07, 2022 05:00 PM Reporting Lab: [facility] [address] [facility] [address] Performing Lab: [facility] [address] [facility] [address] FINGERSTICK GLUCOSE 274 H 70-100 May 07, 2022 12:47 [facility] FINGERSTICK GLUCOSE Speci men Type: BLOOD PM Comment: Mark casillas Nurse Notified Ordering Provid er: BETO AYALA Report Released Date/Time: May 07, 2022 05:32 PM Reporting Lab: [facility] [address] [facility] [address] Performing Lab: [facility] [address] [facility] [address] FINGERSTICK GLUCOSE 309 H 70-100 May 07, 2022 06:35 [facility] FINGERSTICK GLUCOSE Speci men Type: BLOOD AM Comment: Mark casillas Nurse Notified Ordering Provid er: GAYLA DOMINGUEZ Report Released Date/Time: May 07, 2022 06:46 AM Reporting Lab: [facility] [address] [facility] [address] Performing Lab: [facility] [address] [facility] [address] FINGERSTICK GLUCOSE 352 H 70-100 May 07, 2022 06:15 AM [facility] ALBUMIN Specim en Type: PLASMA No comment enter ed. Ordering Provid er: GAYLA DOMINGUEZ Report Released Date/Time: May 06, 2022 06:33 PM Reporting Lab: [facility] [address] [facility] [address] Performing Lab: [facility] [address] [facility] [address] ALBUMIN 3.0 L 3.5-5.2 May 07, 2022 [facility] COMPREHENSIVE METABOLIC Spec imen Type: PLASMA 06:15 AM PANEL+MG No comment enter ed. Ordering Provid er: GAYLA DOMINGUEZ Report Released Date/Time: May 06, 2022 09:11 PM Reporting Lab: [facility] [address] [facility] [address] Performing Lab: [facility] [address] CREATININE 1.2 0.7-1.2 UREA NITROGEN 25 8-26 [...] L >60 May 07, 2022 06:15 AM [facility] CBC & DIFF Specim en Type: BLOOD Comment: Manual Differential Performed Ordering Provid er: GAYLA DOMINGUEZ Report Released Date/Time: May 06, 2022 09:11 PM Reporting Lab: [facility] [address] Performing Lab: [facility] [address] WBC 20.25 H 4.0-11.0 RBC 3.54 L [...] NORMOCYTIC, NORMOCHROMIC May 07, 2022 12:19 AM [facility] LACTIC ACID Specim en Type: PLASMA No comment enter ed. Ordering Provid er: GAYLA DOMINGUEZ Report Released Date/Time: May 06, 2022 07:13 PM Reporting Lab: [facility] [address] Performing Lab: [facility] [address] LACTIC ACID 2.7 H 0.5-2.2 May 06, 2022 10:45 [facility] FINGERSTICK GLUCOSE Speci men Type: BLOOD PM Comment: Mark casillas Nurse Notified Ordering Provid er: GAYLA DOMINGUEZ Report Released Date/Time: May 07, 2022 12:08 AM Reporting Lab: [facility] [address] [facility] [address] Performing Lab: [facility] [address] [facility] [address] FINGERSTICK GLUCOSE 320 H 70-100 May 06, 2022 06:53 [facility] MRSA SURVL NARES Specimen Type: NARES PM DNA No comment enter ed. Ordering Provid er: GAYLA DOMINGUEZ Report Released Date/Time: May 06, 2022 06:33 PM Reporting Lab: [facility] [address] [facility] [address] Performing Lab: [facility] [address] [facility] [address] MRSA SURVL NARES DNA POSITIVE HH Negative May 06, 2022 06:51 [facility] CARDIAC TROPONIN I Specim en Type: PLASMA PM No comment enter ed. Ordering Provid er: GAYLA DOMINGUEZ Report Released Date/Time: May 06, 2022 06:05 PM Reporting Lab: [facility] [address] [facility] [address] Performing Lab: [facility] [address] [facility] [address] CARDIAC TROPONIN I <0.028 <0.028 May 06, 2022 06:51 PM [facility] LACTIC ACID Specim en Type: PLASMA No comment enter ed. Ordering Provid er: GAYLA DOMINGUEZ Report Released Date/Time: May 06, 2022 06:04 PM Reporting Lab: [facility] [address] [facility] [address] Performing Lab: [facility] [address] [facility] [address] LACTIC ACID 3.1 H 0.5-2.2 May 06, 2022 06:51 [facility] EXTRA GOLD GEL TUBE Speci men Type: SERUM PM No comment enter ed. Ordering Provid er: GAYLA DOMINGUEZ Report Released Date/Time: May 06, 2022 06:52 PM Reporting Lab: [facility] [address] [facility] [address] Performing Lab: [facility] [address] [facility] [address] EXTRA GOLD GEL TUBE RECEIVED May 06, 2022 06:51 [facility] C-REACTIVE PROTEIN Specim en Type: PLASMA PM No comment enter ed. Ordering Provid er: GAYLA DOMINGUEZ Report Released Date/Time: May 06, 2022 09:29 PM Reporting Lab: [facility] [address] [facility] [address] Performing Lab: [facility] [address] [facility] [address] C-REACTIVE PROTEIN 392.40 H <5.00 May 06, 2022 10:51 AM [facility] URINALYSIS Specim en Type: URINE No comment enter ed. Ordering Provid er: MODESTA VILLANUEVA Report Released Date/Time: May 06, 2022 10:11 AM Reporting Lab: [facility] [address] [facility] [address] Performing Lab: [facility] [address] [facility] [address] URINE COLOR YELLOW SPECIFIC GRAVITY 1.020 1.003-1.035 [...] ESTERASE 500 NEGATIVE May 06, 2022 10:24 [facility] COVID-19 DIAGNOSTIC Speci men Type: NASOPHARYNGEAL AM PANEL (CEPHEID) Comment: Cephei jessica GeneXpert ([phone]) Ordering Provid er: MODESTA VILLANUEVA Report Released Date/Time: May 06, 2022 10:11 AM Reporting Lab: [facility] [address] [facility] [address] Performing Lab: [facility] [address] [facility] [address] COVID-19 (CEPHEID) Not Detected Not Dete cted May 06, 2022 10:20 AM [facility] POC ABG/LACTATE Specim en Type: VENOUS BLOOD No comment enter ed. Ordering Provid er: MODESTA VILLANUEVA Report Released Date/Time: May 06, 2022 10:22 AM Reporting Lab: [facility] [address] [facility] [address] Performing Lab: [facility] [address] [facility] [address] POC PH 7.410 7.31-7.41 POC PCO2 28.9 L 35.00-45.00 POC PO2 82 H 35.0-40.0 POC TCO2 19 L 24.0-29.0 POC HCO3 18.3 L 23.0-28.0 POC BE ECT -6 L -2 POC SO2 96 H 70-75 POC LACTATE 3.62 0.90-1.70 May 06, 2022 10:00 AM [facility] PHOSPHORUS Specim en Type: PLASMA No comment enter ed. Ordering Provid er: MODESTA VILLANUEVA Report Released Date/Time: May 06, 2022 10:11 AM Reporting Lab: [facility] [address] [facility] [address] Performing Lab: [facility] [address] [facility] [address] PHOSPHORUS 2.5 2.3-4.7 May 06, 2022 10:00 [facility] PROTHROMBIN TIME/INR Spec imen Type: PLASMA AM No comment enter ed. Ordering Provid er: MODESTA VILLANUEVA Report Released Date/Time: May 06, 2022 10:11 AM Reporting Lab: [facility] [address] [facility] [address] Performing Lab: [facility] [address] [facility] [address] .INR 2.5 H 0.8-1.1 .PT 29.2 H 9.4-12.5 May 06, 2022 10:00 [facility] ACT PART THROMBO TIME Spe cimen Type: PLASMA AM No comment enter ed. Ordering Provid er: MODESTA VILLANUEVA Report Released Date/Time: May 06, 2022 10:11 AM Reporting Lab: [facility] [address] [facility] [address] Performing Lab: [facility] [address] [facility] [address] APTT 37.8 H 25.1-36.5 May 06, 2022 10:00 [facility] CARDIAC TROPONIN I Specim en Type: PLASMA AM Comment: Critic al Value Reported To: BROOKS COTE 05-06-2022 @1053 BY MBB. Critical value report confirmed. Ordering Provid er: MODESTA VILLANUEVA Report Released Date/Time: May 06, 2022 10:11 AM Reporting Lab: [facility] [address] [facility] [address] Performing Lab: [facility] [address] [facility] [address] CARDIAC TROPONIN I 0.035 HH <0.028 May 06, 2022 10:00 AM [facility] PROCALCITONIN Specim en Type: PLASMA No comment enter ed. Ordering Provid er: MODESTA VILLANUEVA Report Released Date/Time: May 06, 2022 10:11 AM Reporting Lab: [facility] [address] Performing Lab: [facility] [address] [facility] [address] PROCALCITONIN 22.29 H <0.09 May 06, 2022 [facility] COMPREHENSIVE METABOLIC Spec imen Type: PLASMA 10:00 AM PANEL+MG Comment: Manual Differential Performed Ordering Provid er: MODESTA VILLANUEVA Report Released Date/Time: May 06, 2022 10:11 AM Reporting Lab: [facility] [address] [facility] [address] CREATININE 1.3 H 0.7-1.2 UREA NITROGEN 25 [...] L >60 May 06, 2022 10:00 AM [facility] CBC & DIFF Specim en Type: BLOOD Comment: Manual Differential Performed Ordering Provid er: MODESTA VILLANUEVA Report Released Date/Time: May 06, 2022 10:11 AM Reporting Lab: [facility] [address] [facility] [address] Performing Lab: [facility] [address] [facility] [address] WBC 18.82 H 4.0-11.0 RBC 3.70 L [...] .RBC MORPHOLOGY PRESENT May 06, 2022 10:00 [facility] EXTRA GOLD GEL TUBE Speci men Type: SERUM AM No comment enter ed. Ordering Provid er: LINNEA RAND Report Released Date/Time: May 06, 2022 10:25 AM Reporting Lab: [facility] [address] [facility] [address] Performing Lab: [facility] [address] [facility] [address] EXTRA GOLD GEL TUBE RECEIVED May 06, 2022 10:00 AM [facility] LIPASE Specim en Type: PLASMA No comment enter ed. Ordering Provid er: MODESTA VILLANUEVA Report Released Date/Time: May 06, 2022 10:11 AM Reporting Lab: [facility] [address] [facility] [address] Performing Lab: [facility] [address] [facility] [address] LIPASE <4 <60 May 06, 2022 09:46 [facility] FINGERSTICK GLUCOSE Speci men Type: BLOOD AM Comment: Mark casillas Nurse Notified Ordering Provid er: MODESTA VILLANUEVA Report Released Date/Time: May 06, 2022 09:59 AM Reporting Lab: [facility] [address] [facility] [address] Performing Lab: [facility] [address] [facility] [address] FINGERSTICK GLUCOSE 369 H 70-100 Apr 30, 2022 09:17 AM [facility] CBC Specim en Type: BLOOD No comment enter ed. Ordering Provid er: BILL ROONEY Report Released Date/Time: Apr 30, 2022 08:21 AM Reporting Lab: [facility] [address] [facility] [address] Performing Lab: [facility] [address] WBC 10.40 4.0-11.0 RBC 3.96 L 4.6-6.2 HGB 12.3 L 13.5-17.9 HCT 37.8 L 41-54 MCV 95.5 80-100 MCH 31.1 27-33 MCHC 32.5 32.0-37.5 PLT 286 150-400 MPV 10.1 7.4-10.4 RDW 14.6 H 11.5-14.5 Apr 30, 2022 [facility] BASIC METABOLIC Specimen Typ e: PLASMA 09:17 AM PANEL+MG No comment enter ed. Ordering Provid er: BILL ROONEY Report Released Date/Time: Apr 30, 2022 08:21 AM Reporting Lab: [facility] [address] Performing Lab: [facility] [address] CREATININE 1.2 0.7-1.2 UREA NITROGEN 26 8-26 [...] Source Pressure Rate Mass Index May 07 [facility] 2021 [facility] May 072021 04[facility]56 [facility] AM [facility] May 07 [facility] 2021 03[facility]23 [facility] May 07 266.76 35 [facility]2021 12:15 lb [facility] Social History: Smoking Status (Most current) and Tobacco Use (All prior to encounter date) This section includes the most current, and the historical, smoking and tobacco-related health factors from the [place] facility where the Encounter took place.Current Smoking Status This section includes the most current smoking, or tobacco-related health factor, from the [place] facility where the Encounter took place. Date/Time Current Smoking Status Comment Facility Feb 02, 2022 09:30 AM VA-TOBACCO NEVER USED [place] [facility] Tobacco Use History This section includes a history of the smoking, or tobacco- related health factors, that were collected on or before the date of the Encounter. The data comes from the [place] facility where the Encounter took place. Date/Time Smoking Status/Tobacco Use Comment [facility] caroline Mar 22, 2021 07:45 AM VA-TOBACCO NEVER USED [place] [facility] Oct 02, 2019 10:02 AM VA-TOBACCO NEVER USED [place] [facility] May 21, 2018 09:05 AM VA-TOBACCO NEVER USED [place] [facility] December 25, 2017 06:14 PM INPT NO TOBACCO USE IN LAST 30 DAYS [facility] Oct 01, 2017 07:34 AM LIFETIME NON-TOBACCO USER [facility] Sep 28, 2016 08:44 AM LIFETIME NON-TOBACCO USER [facility] Oct 14, 2015 07:52 AM LIFETIME NON-TOBACCO USER [facility] Oct 11, 2014 07:59 AM LIFETIME NON-TOBACCO USER [facility] January 15, 2007 07:55 AM LIFETIME NON-TOBACCO USER [facility] Advance Directives: All historical and current Section Date Range: From patient's date of to the date document was created. This section includes ALL of a patient's completed or amended [place] Advance and Rescinded Directives. The entries below indicate that a directive exists for the patient, but an actual copy is not included with this document. The data comes from all [facility]. Date Advance Directives Provider Source Apr 18, 2018 ADVANCE DIRECTIVE LARISSA SIGALA [facility] Apr 18, 2018 ADVANCE DIRECTIVE DISCUSSION LARISSA SIGALA [facility] December 23, 2017 CLINICAL WARNING FARHAT SCHMID [facility] May 11, 2003 ADVANCE DIRECTIVE BERT CASILLAS [facility] Radiology Reports: +/- 30 days [...] 2022 09:46 CHEST 1 VIEW: SONJA OVALLES [facility] AM LUISANA EDDY [id number] -1935 M Exm Date: MAY 11, 2022@09:46 Req Phys: CODIE LEON Loc: OP Unknown /05-13-2022@05:05 Img Loc: MAIN X-RAY Service: PRIMARY CARE - MED OFFICE (Case [id number] COMPLETE) CHEST 1 VIEW (RAD Detailed) CPT:99964 Proc Modifiers : PORTABLE EXAM Reason for [...] 11, 2022 Date Verified: MAY 11, 2022 Python Web Developer E-Sig:/ES/SONJA OVALLES MD Report: CHEST 1 VIEW [...] Primary Interpreting Staff: SONJA OVALLES MD, RADIOLOGIST (Python Web Developer) /[facility] May 10, 2022 03:49 CT HEAD (P): RADIOLOGY,OUTSIDE [facility] PM LUISANA EDDY [id number] [facility] SERVICE Exm Date: MAY 10, 2022@15:49 Req Phys: CODIE LEON Loc: OP Unknown /05-13-2022@05:05 Img Loc: CT IMAGING Service: PRIMARY CARE - MED OFFICE (Case [id number] COMPLETE) CT HEAD/BRAIN W/O CONTRAST (CT Detailed) CPT:02307 Reason for Study: CHANGE IN MENTAL STATUS Clinical History: CHANGE IN MENTAL STATUS. ORDER ADMINISTRATIVELY ENTERED FOLLOWING SYSTEM OUTAGE. Report Status: Verified Date Reported: MAY 10, 2022 Date Verified: MAY 10, 2022 Python Web Developer E-Sig: Report: CT HEAD/BRAIN W/O CONTRAST [PRINTSET] HISTORY: Change in mental status. COMPARISON: CT from 05/07/2022. TECHNIQUE: Contiguous axial CT images from the level of the skull base through the skull apex, with coronal and s agittal reformats, performed at the local [place] facility. 321 images were received by the [place] National Teleradiology Program (NTP) for interpretation. RADIATION [...] prior study. READING PHYSICIAN: Akash Mccoy M.D. -[phone] 05/10/2022 17:35 PDT [facility] National Teleradiology Program [phone] (For Medical Practitioner Use Only ) Attention Patients / Veterans: If you have ques tions or concerns about these test results, please contact your o rdering provider or primary care team. Primary Interpreting Staff: RADIOLOGY,OUTSIDE SERVICE, Staff Physician / May 08, 2022 07:45 CT T-SPINE (P): RADIOLOGY,OUTSIDE [facility] PM LUISANA EDDY [id number] -1935 M SERVICE Exm Date: MAY 08, 2022@19:45 Req Phys: CODIE LEON Loc: OP Unknown /05-13-2022@05:05 Img Loc: CT IMAGING Service: PRIMARY CARE - MED OFFICE (Case [id number] COMPLETE) CT SPINE THORACIC W/O CONTR AST (CT Detailed) CPT:98274 Reason for Study: mrsa bacteremia, spinal surge ry - r/o abscess or discitis Clinical History: IS NOT under investigation for COVID-19 or is COVID-19 negative Defer to radiologist for final CT protocol. Responsible provider name and phone number to n otify for critical findings if other than user placing the order a nd pager listed below: User placing orders pager: [phone] LAST 3: Collection DT Specimen Test Name [...] GFR (eGF 44 L Ref: >=60 Allergies: ([place] only) SIMVASTATIN (Feb 29, 2004) CEPHALEXIN (Mar 01, 2004) Report Status: Verified Date Reported: MAY 08, 2022 Date Verified: MAY 08, 2022 Python Web Developer E-Sig: Report: CT SPINE THORACIC W/O CONTRAST [...] thoracic level. READING PHYSICIAN: Luisana Webb MD -[phone] 05/08/2022 19:20 PDT [facility] National Teleradiology Program [phone] (For Medical Practitioner Use Only ) Attention Patients / Veterans: If you have ques tions or concerns about these test results, please contact your o [facility] provider or primary care team. Primary Interpreting Staff: RADIOLOGY,OUTSIDE SERVICE, Staff Physician / May 08, 2022 04:48 CHEST 1 VIEW: RADIOLOGY,OUTSIDE [facility] LUISANA EDDY [id number] -1935 M SERVICE Exm Date: MAY 08, 2022@16:48 Req Phys: CODIE LEON Loc: OP Unknown /05-13-2022@05:05 Img Loc: MAIN X-RAY Service: PRIMARY CARE - MED OFFICE (Case [id number] COMPLETE) CHEST 1 VIEW (RAD Detailed) CPT:14335 Proc Modifiers : PORTABLE EXAM Reason for Study: dyspnea Clinical History: IS NOT under investigation for COVID-19 or is COVID-19 negative acute worsening of dyspnea Responsible provider name and phone number to notify for critical findings if other than user placing the order and pager listed below: User placing orders pager: [phone] malini cell [phone] LAST CREATININE 1.1 (05/08/22) Report Status: Verified Date Reported: MAY 08, 2022 Date Verified: MAY 08, 2022 Python Web Developer E-Sig: Report: CHEST 1 VIEW HISTORY: dyspnea COMPARISON: 05/06/2022 TECHNIQUE: Frontal view(s) of the chest, [place] nola to the [place] National Teleradiology Program ([place]P) for interp retation. FINDINGS: Reduced lung volumes. Progressive cardiomegaly, and vascular congestion as well as diffuse interstitial prom inence with probable small effusions. Impression: Expiratory exam with findings of CHF and mild e [place]anta READING PHYSICIAN: Nghia Menjivar M.D. -[phone] 05/08/2022 18:57 EDT [facility] National Teleradiology Program [phone] (For Medical Practitioner Use Only ) Attention Patients / Veterans: If you have ques tions or concerns about these test results, please contact your o rdering provider or primary care team. Primary Interpreting Staff: RADIOLOGY,OUTSIDE SERVICE, Staff Physician / May 07, 2022 10:29 CT HEAD (P): SHANI POLANCO [facility] AM LUISANA EDDY [id number] -1935 M Exm Date: MAY 07, 2022@10:29 Req Phys: BETO AYALA Loc: OP Unknown/0 05-13-2022@05:05 Img Loc: CT IMAGING Service: PRIMARY CARE - MED OFFICE (Case [id number] COMPLETE) CT HEAD/BRAIN W/O CONTRAST ( CT Detailed) CPT:72176 Reason for Study: seizure noted at [facility] Clinical History: [place] IS NOT under investigation for COVID-19 or is COVID-19 negative Defer to radiologist for final CT protocol. Responsible provider name and phone number to n otify for critical findings if other than user placing the order a nd pager listed below: User placing orders pager: [phone] LAST 3: Collection DT Specimen Test Name [...] GFR (eGF 44 L Ref: >=60 Allergies: ([place] only) SIMVASTATIN (Feb 29, 2004) CEPHALEXIN (Mar 01, 2004) Report Status: Verified Date Reported: MAY 07, 2022 Date Verified: MAY 07, 2022 Python Web Developer E-Sig:/ES/SHANI POLANCO MD Report: EXAM: CT HEAD/BRAIN [...] lis nola below: User placing orders pager: [phone] LAST 3: Collecti on DT Specimen Test [...] Primary Interpreting Staff: SHANI POLANCO MD, RADIOLOGIST (Python Web Developer) /Javed May 06, 2022 11:40 CHEST 1 VIEW: RADIOLOGY,OUTSIDE [facility] AM LUISANA EDDY [id number] -1935 M SERVICE Exm Date: MAY 06, 2022@11:40 Req Phys: MODESTA VILLANUEVA Loc: [facility] EMERGENCY DEPT WALK-IN (Re Img Loc: MAIN X-RAY Service: Unknown (Case [id number] COMPLETE) CHEST 1 VIEW (RAD Detailed) C PT:41252 Proc Modifiers : PORTABLE EXAM Reason for Study: fever, back pain Clinical History: Reason for Exam: Severe Sepsis Pathway to Evalu ate Volume Status and Source of Sepsis [place] IS under investigation ([facility]I) for COVID- 19 or is COVID-19+ 86 yo M with fever, back pain Responsible provi violeta name and phone number to notify for critical findings if other than user placing the order and pager listed below: User placing orders pager: [phone] LAST CREATININE 1.2 (04/30/22) Report Status: Verified Date Reported: MAY 06, 2022 Date Verified: MAY 06, 2022 Python Web Developer E-Sig: Report: Technique: Frontal chest. No comparison Impression: Cardiac silhouette is mildly enlarged. There is mild pulmonary venous congestion. No definite pleural effusion . No pneumothorax seen. READING PHYSICIAN: Vern Donnelly M.D. -[phone] 07 05/06/2022 13:26 EDT [facility] National Teleradiology Program [phone] (For Medical Practitioner Use Only ) Attention Patients / Veterans: If you have ques tions or concerns about these test results, please [facility] or primary care team. Primary Interpreting Staff: RADIOLOGY,OUTSIDE SERVICE, Staff Physician / May 06, 2022 10:36 CT (AP) ABDOMEN/PELVIS (P): RADIOLOGY,OUTSIDE [facility] LUISANA EDDY [id number] -1935 M SERVICE Exm Date: MAY 06, 2022@10:36 Req Phys: MODESTA VILLANUEVA Loc: [facility] EMERGENCY DEPT WALK-IN (Re Img Loc: CT IMAGING Service: Unknown (Case 66 COMPLETE) CT (AP) ABDOMEN/PELVIS W CONT RAST(CT Detailed) CPT:89635 Reason for Study: fever, back pain Clinical [...] pager listed below: User placing orders pager: [phone] LAST 3: Collection DT Specimen Test Name [...] ESTIMATED GFR(eGF 44 L Ref: >=60 Allergies: ([place] only) SIMVASTATIN (Feb 29, 2004) CEPHALEXIN (Mar 01, 2004) To see allergies from all [facility] locations click Re ports tab>Remote Data>All Available Sites>Clinical Reports>Aller gies. Report Status: Verified Date Reported: MAY 06, 2022 Date Verified: MAY 06, 2022 Python Web Developer E-Sig: Report: Exam: CT (AP) ABDOMEN/PELVIS W [...] findings, above. READING PHYSICIAN: Eduin Donaldson M.D. [phone] 05/06/2022 12:48 [facility] [employer] Teleradiology Program [phone] (For Medical Practitioner Use Only ) Attention Patients / Veterans: If you have ques tions or concerns about these test results, please contact your o [facility] provider or primary care team. Primary Interpreting Staff: RADIOLOGY,OUTSIDE SERVICE, Staff Physician / May 06, 2022 10:35 CT HEAD/BRAIN W/O CONTRAST: RADIOLOGY,OUTSIDE [facility] LUISANA EDDY [id number] -1935 M SERVICE Exm Date: MAY 06, 2022@10:35 Req Phys: MODESTA VILLANUEVA Loc: [facility] EMERGENCY DEPT WALK-IN (Re Img Loc: CT IMAGING Service: Unknown (Case 64 COMPLETE) CT HEAD/BRAIN W/O CONTRAST (C T Detailed) CPT:57304 Reason for Study: falls, blood thinner, AMS, se izure Clinical History: falls, blood thinner, AMS, seizure IS under investigation (PUI) for COVID- 19 or is COVID-19+ Defer to radiologist for final CT protocol. Responsible provider name and phone number to n otify for critical findings if other than user placing the order a nd pager listed below: User placing orders pager: [phone] LAST 3: Collection DT Specimen Test Name [...] ESTIMATED GFR(eGF 44 L Ref: >=60 Allergies: ([place] only) SIMVASTATIN (Feb 29, 2004) CEPHALEXIN (Mar 01, 2004) To see allergies from all [facility] locations click Re ports tab>Remote Data>All Available Sites>Clinical Reports>Aller gies. Report Status: Verified Date Reported: MAY 06, 2022 Date Verified: MAY 06, 2022 Python Web Developer E-Sig: Report: CT HEAD/BRAIN W/O CONTRAST Clinical [...] T findings. READING PHYSICIAN: Eduin Donaldson M.D. [phone] 05/06/2022 12:30 [facility] National Teleradiology Program [phone] (For Medical Practitioner Use Only ) Attention Patients / Veterans: If you have ques tions or concerns about these test results, please contact your o rdering provider or primary care team. Primary Interpreting Staff: RADIOLOGY,OUTSIDE SERVICE, Staff Physician / May 06, 2022 10:35 CT CERVICAL SPINE W/O CONTRAST: RADIOLOGY,OUT SIDE [facility] AM LUISANA EDDY [id number] -1935 M SERVICE Exm Date: MAY 06, 2022@10:35 Req Phys: MODESTA VILLANUEVA Loc: [facility] EMERGENCY DEPT WALK-IN (Re Img Loc: CT IMAGING Service: Unknown (Case 65 COMPLETE) CT CERVICAL SPINE W/O CONTRAS T (CT Detailed) CPT:54339 Reason for Study: falls, blood thinner, AMS, se izure Clinical History: falls, blood thinner, AMS, seizure IS under investigation (PUI) for COVID- 19 or is COVID-19+ Defer to radiologist for final CT protocol. Responsible provider name and phone number to n otify for critical findings if other than user placing the order a nd pager listed below: User placing orders pager: [phone] LAST 3: Collection DT Specimen Test Name [...] ESTIMATED GFR(eGF 44 L Ref: >=60 Allergies: ([place] only) SIMVASTATIN (Feb 29, 2004) CEPHALEXIN (Mar 01, 2004) To see allergies from all [facility] locations click Re ports tab>Remote Data>All Available Sites>Clinical Reports>Aller gies. Report Status: Verified Date Reported: MAY 06, 2022 Date Verified: MAY 06, 2022 Python Web Developer E-Sig: Report: CT CERVICAL SPINE W/O CONTRAST HISTORY:falls, blood thinner, AMS, seizure NUMBER OF IMAGES:770 COMPARISON: None available. TECHNIQUE: A non contrast CT of the cervical sp ine was performed [place] the local [place]. [facility] to [facility] [...] findings, above. READING PHYSICIAN: Eduin Donaldson M.D. -[phone] 05/06/2022 12:33 [facility] National Teleradiology Program [phone] (For Medical Practitioner Use Only ) Attention Patients / Veterans: If you have ques tions or concerns about these test results, please contact your [facility] provider or primary care team. Primary [...] the Encounter. The data comes from all [place] treatment facilities. Date/Time Pathology Report Provider Source May 09, 2022 05:30 AM LR MICROBIOLOGY REPORT: [facility] Reporting Lab: [facility] [CLIA# [id number]] [place] [address] Accession [UID]: [id number] [[id number]] Receiv ed: May 09, 2022@01:35 Collection sample: BLOOD Collection date: Apr 05:30 Provider: CODIE LEON Comment on specimen: LEFT ARM, RECEIVED 2 BLOOD CULTURE BOTTLES Test(s) ordered: CULTURE & SUSCEPTIBILITY...... 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 R TRIMETH/SULFA................. S TETRACYCLINE.................. S CLINDAMYCIN................... S RIFAMPIN...................... S VANCOMYCIN.................... S Bacteriology Remark(s): VANCOMYCIN SHAMIKA: <=0.5 ug/mL THIS REPORT IS FINAL =--=--=--=--=--=--=--=--=--=--=--=--=--= --=--=--=--=--=--=--=--=--=--=--=--=-- Performing Laboratory: Bacteriology Report Performed By: [facility] [CLIA# [id number]] [place] [address] May 08, 2022 03:23 PM LR MICROBIOLOGY REPORT: [facility] Reporting Lab: [facility] [CLIA# [id number]] [place] [address] Accession [UID]: [id number] [[id number]] Receiv ed: May 08, 2022@15:41 Collection sample: BLOOD Collection date: Apr 15:23 Provider: CODIE LEON Comment on specimen: LEFT ARM, RECEIVED 2 BLOOD CULTURE BOTTLES Test(s) ordered: CULTURE & SUSCEPTIBILITY...... completed: May 10, 2022 * BACTERIOLOGY FINAL REPORT => May 10, 2022 16:3 1 TECH CODE: [id number] CULTURE RESULTS: GROWTH SAME THAT OF ANOTHER CULTURE Comment: FOR SUSCEPTIBILITY REPORT SEE PREVIOUS POSITIVE SAME MB 22 [id number] ( 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 from Anaerobic bottle ) ( Recovered from Aerobic bottle ) Bacteriology Remark(s): THIS REPORT IS FINAL =--=--=--=--=--=--=--=--=--=--=--=--=--= --=--=--=--=--=--=--=--=--=--=--=--=-- Performing Laboratory: Bacteriology Report Performed By: [facility] [CLIA# [id number]] [place] [address] May 08, 2022 03:21 PM LR MICROBIOLOGY REPORT: [facility] Reporting Lab: [facility] [CLIA# [id number]] [place] [address] Accession [UID]: [id number] [[id number]] Receiv ed: May 08, 2022@15:40 Collection sample: BLOOD Collection date: Apr 15:21 Provider: CODIE LEON Comment on specimen: RT ARM, RECEIVED 2 BLOOD CU LTURE BOTTLES Test(s) ordered: CULTURE & SUSCEPTIBILITY...... completed: May 10, 2022 * BACTERIOLOGY FINAL REPORT => May 10, 2022 16:3 1 TECH CODE: [id number] CULTURE RESULTS: GROWTH SAME THAT OF ANOTHER CULTURE Comment: FOR SUSCEPTIBILITY REPORT SEE PREVIOUS POSITIVE SAME MB 22 [id number] ( 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 from Anaerobic bottle ) ( Recovered from Aerobic bottle ) Bacteriology Remark(s): THIS REPORT IS FINAL =--=--=--=--=--=--=--=--=--=--=--=--=--= --=--=--=--=--=--=--=--=--=--=--=--=-- Performing Laboratory: Bacteriology Report Performed By: [facility] [CLIA# [id number]] [place] [address] May 07, 2022 05:30 AM LR MICROBIOLOGY REPORT: [facility] Reporting Lab: [facility] [CLIA# [id number]] [place] [address] Accession [UID]: [id number] [[id number]] Receiv ed: May 07, 2022@01:35 Collection sample: [...] REPORT SEE PREVIOUS POSITIVE SAME MB 22 [id number] ( 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 from Aerobic bottle ) ( Recovered from Anaerobic bottle ) Bacteriology Remark(s): THIS REPORT IS FINAL =--=--=--=--=--=--=--=--=--=--=--=--=--= --=--=--=--=--=--=--=--=--=--=--=--=-- Performing Laboratory: Bacteriology Report Performed By: [facility] [CLIA# [id number]] [place] [address] May 06, 2022 10:51 AM LR MICROBIOLOGY REPORT: [facility] Reporting Lab: [facility] [CLIA# [id number]] [place] [address] Accession [UID]: [id number] [[id number]] Receiv ed: May 06, 2022@11:32 Collection sample: [...] --=--=--=--=--=--=--=--=--=--=--=--=-- Performing Laboratory: Bacteriology Report Performed By: [facility] [CLIA# [id number]] [place] [address] May 06, 2022 10:34 AM LR MICROBIOLOGY REPORT: [facility] Reporting Lab: [facility] [CLIA# [id number]] [place] [address] Accession [UID]: [id number] [[id number]] Receiv ed: May 06, 2022@10:51 Collection sample: BLOOD Collection date: Apr 10:34 Provider: MODESTA VILLANUEVA Comment on specimen: RECEIVED 2 BLOOD CULTURE MILAN TTLES RAC Test(s) ordered: CULTURE & SUSCEPTIBILITY...... 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 [...] --=--=--=--=--=--=--=--=--=--=--=--=-- Performing Laboratory: Bacteriology Report Performed By: [facility] [CLIA# [id number]] [place] [address] May 06, 2022 10:00 AM LR MICROBIOLOGY REPORT: [facility] Reporting Lab: [facility] [CLIA# [id number]] [place] [address] Accession [UID]: [id number] [[id number]] Receiv ed: May 06, 2022@10:41 Collection sample: [...] REPORT SEE PREVIOUS POSITIVE SAME MB 22 [id number] ( 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 from Anaerobic bottle ) ( Recovered from Aerobic bottle ) Bacteriology Remark(s): THIS REPORT IS FINAL =--=--=--=--=--=--=--=--=--=--=--=--=--= --=--=--=--=--=--=--=--=--=--=--=--=-- Performing Laboratory: Bacteriology Report Performed By: [facility] [CLIA# [id number]] [facility] [place] [address] Encounter Notes: All associated encounter notes This section contains the clinical notes associated to the Encounter. Date/Time Encounter Note(s) Provider Source May 07, 2022 02:16 PM CARDIOLOGY PROCEDURE NOTE: [facility] LOCAL TITLE: ECHOCARDIOGRAM PROCEDURE STANDARD TITLE: CARDIOLOGY PROCEDURE NOTE DATE OF NOTE: MAY 07, 2022@14:16:58 ENTRY DATE: MAY 07, 2022@14:16:58 AUTHOR: CLINICAL,DEVICE PRO EXP COSIGNER: URGENCY: STATUS: COMPLETED PROCEDURE SUMMARY CODE: Machine Resulted DATE/TIME PERFORMED: MAY 07, 2022@10:44:4 DOCUMENT IN VISTA IMAGING SEE FULL REPORT IN VISTA IMAGING SIGNATURE NOT REQUIRED SEE SIGNATURE IN VISTA IMAGING (XCELERA ISCV TTE INPT) AUTO-INSTRUMENT DIAGN OSIS Procedure: Adult Release Status: Released Off-Line Verified Date Verified: May 07, 2022@14:16:40 Study ID: [id number] Amara Brenco Andrez + + [place], [place] + + [facility] [id number] [place] [address] Transthoracic Echocardiogram Report + + :Name: LUISANA EDDY Study Date: 05/07/2022 : : Patient Location: ED-\S\ED- : :: 1935 Gender: Male : :Age: 86 yrs : :CP Order Number: [id number] : :Reason For Study: Endocarditis : + + :Face Worker: Brenden Claudio RDCS : + + :Referring Physician: GAYLA DOMINGUEZ : + + Interpretation Summary A complete two-dimensional transthoracic echocar diogram (64129) was performed with contrast (Q9957). Very poor imaging quality. Grossly, the left carole tricular systolic function is probably grossly low normal. The study was inade quatge for regional wall motion assessment. No obvious vegetation though the sensitivity of this study for vegetations is very limited. Procedure A complete two-dimensional transthoracic echocar diogram (36162) was performed with contrast (Q9957). Left Ventricle Very poor imaging quality. Grossly, the left carole tricular systolic function is probably grossly low normal. The study was inade quatge for regional wall motion assessment. Right Ventricle The right ventricle is normal size. Left Atrium/Right Atrium/Atrial Septum The left atrium is mild to moderately dilated. R ight atrial size is normal. Mitral Valve There is trivial mitral valve regurgitation. Aortic Valve The aortic valve is probably trileaflet. No aort ic valvular regurgitation. Pericardium/Pleural There is no pericardial effusion. Inferior Vena Cava/Hepatic Veins The inferior vena cava is normal in size, and co llapses normally with respiration. MMode/2D Measurements \T\ Calculations IVC Diam: 2.4 cm Doppler Measurements \T\ Calculations MV E max yoana: 97.0 cm/sec MV P1/2t max yoana: 95.1 cm/sec MV P1/2t: 47.6 msec MVA(P1/2t): 4.6 cm2 MV dec slope: 585.2 cm/sec2 MV dec time: 0.18 sec Reading Physician:02:16 PM Administrative Closure: 05/07/2022 by: CLINICAL,DEVICE PROXY SERVICE
--- OUTSIDE RECORDS SUMMARY | 2022-05-15 09:30 | XMS_ITS | Encounter Summary ---
:1935 Author Organization [facility] rs Address [address] [place] [address] Support Name Relationship Address Phone WADE LORENZO Unavailable [address] [place] [address] WADE LORENZO Unavailable [address] [place] [address] ARACELI MARSHALL Unavailable [phone] [place] [address] GOMARILIA VAZQUEZA Unavailable [phone] [place] [address] Insurance Providers: All historical and current Section Date Range: From patient's date of to the date document was created.This section includes the names of all active insurance providers for the patient. Insurance Type of Plan Start of End of Group [facility] Coverage Name Policy Policy Number ID Provider's Bales's Relationship Coverage Coverage Telephone Name to Policy Number Bales [place] M[place] Aug 19, [id number] EDYD [facility] (WNR) ADVANTAGE (WNR) 2016 8 [id number] [phone] [facility] 1 [place] MED[place]ARE M[place] Aug 19, [id number] Kristel EDDY [facility] (WNR) ADVANTAGE (WNR) 2016 8 [id number] [phone] [facility] 1 Selected Encounter This section includes the information on record at [place] for the Encounter. 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 Date/Time Primary/Secondary Diagnosis Name Provider Source Diagnosis May 07, 2022 PRIMARY Other seizures [facility] [place] 12:01 PM [facility] May 07, 2022 SECONDARY Bacteremia CASS ROSAL[facility] 12:01 PM [facility] May 07, 2022 SECONDARY Encephalopathy, CASS ROSALES [facility] 12:01 PM unspecified HCS Plan of Treatment: Future Appointments (+ 6 months) and Future Tests (+/- 45 days) The Plan of Treatment section includes future care activities for the patient from all [place] [facility]. This section includes future appointments and future orders which are active, pending orscheduled.Future Appointments This section includes appointments that were scheduled to occur 6 months from the date of the Encounter, up to a maximum of 20 appointments. The data comes from all [facility] facilities. Appointment Date/Time Appointment Type Appointment Facili ty Name May 11, 2022 06:15 PM AMBULATORY - NONE [facility] Jul 23, 2022 08:00 AM AMBULATORY - NEUROLOGY [facility] Active, Pending, and [...] 2022 08:21 Laboratory - Chemistry URINALYSIS URINE ON CE [facility] AM Order Apr 30, 2022 08:21 Laboratory - CULTURE & SUSCEPTIBILITY [facility] AM Microbiology Order URINE May 06, 2022 12:00 Laboratory - Blood ABO/RH - LAB BLOOD [facility] AM Bank Order May 06, 2022 10:11 Laboratory - Blood TYPE & SCREEN - LAB [facility] AM Bank Order BLOOD May 06, 2022 10:27 Pharmacy [facility] AM Medication Order May 06, 2022 10:28 [facility] AM Infusion Order May 06, 2022 10:34 [facility] AM Infusion Order May 06, 2022 10:41 [facility] AM Infusion Order May 06, 2022 12:15 [facility] PM Medication Order May 06, 2022 01:31 Pharmacy - Clinic [facility] PM Medication Order May 06, 2022 04:49 Pharmacy - Clinic [facility] PM Medication Order May 07, 2022 01:00 Laboratory - CULTURE & SUSCEPTIBILITY [facility] PM Microbiology Order BLOOD WC ONCE May 11, 2022 09:07 Laboratory - CULTURE & SUSCEPTIBILITY [facility] AM Microbiology Order BLOOD WC May 11, 2022 09:07 Laboratory - CULTURE & SUSCEPTIBILITY [facility] AM Microbiology Order BLOOD WC May 11, 2022 09:38 Laboratory - Chemistry EOSINOPHIL SMEAR,URINE [facility] AM Order URINE WC ONCE May 11, 2022 09:38 Laboratory - Chemistry URINALYSIS URINE WC ON CE [facility] AM Order May 11, 2022 09:38 Laboratory - Chemistry FENA URINE WC ONCE [facility] AM Order Lab Results: +/- [...] Reference Range Comment May 11, 2022 11:13 [facility] FINGERSTICK GLUCOSE Speci men Type: BLOOD AM Comment: Mark casillas Nurse Notified Ordering Provid er: CODIE LEON Report Released Date/Time: May 11, 2022 11:53 AM Reporting Lab: [facility] [address] [facility] [address] Performing Lab: [facility] [address] [facility] [address] FINGERSTICK GLUCOSE 367 H 70-100 May 11, 2022 07:05 [facility] BASIC METABOLIC Specimen Type: PLASMA AM PANEL+MG No comment enter ed. Ordering Provid er: OG DIAL Report Released Date/Time: May 11, 2022 04:46 AM Reporting Lab: [facility] [address] [facility] [address] Performing Lab: [facility] [address] [facility] [address] CREATININE 1.6 H 0.7-1.2 UREA NITROGEN 28 H 8-26 GLUCOSE 396 H 70-100 SODIUM 150 H 136-145 POTASSIUM 3.7 3.5-5.1 CHLORIDE 120 H 98-107 CO2 23 22-29 CALCIUM 8.4 8.4-10.2 MAGNESIUM 2.1 1.6-2.6 ANION GAP 7 5-15 CREAT EGFR(CKD-EPI) 42 L >60 May 11, 2022 07:05 AM [facility] CBC Specim en Type: BLOOD No comment enter ed. Ordering Provid er: OG DIAL Report Released Date/Time: May 11, 2022 04:46 AM Reporting Lab: [facility] [address] [facility] [address] Performing Lab: [facility] [address] [facility] [address] WBC 15.93 H 4.0-11.0 RBC 3.60 L 4.6-6.2 HGB 11.2 L 13.5-17.9 HCT 35.3 L 41-54 MCV 98.1 80-100 MCH 31.1 27-33 MCHC 31.7 L 32.0-37.5 PLT 231 150-400 MPV 11.2 H 7.4-10.4 RDW 15.2 H 11.5-14.5 May 11, 2022 07:05 AM [facility] BNP Specim en Type: PLASMA No comment enter ed. Ordering Provid er: CODIE LEON Report Released Date/Time: May 11, 2022 09:15 AM Reporting Lab: [facility] [address] [facility] [address] Performing Lab: [facility] [address] [facility] [address] BNP 59 <99 May 11, 2022 07:05 AM [facility] CK,TOTAL Specim en Type: PLASMA No comment enter ed. Ordering Provid er: CODIE LEON Report Released Date/Time: May 11, 2022 09:08 AM Reporting Lab: [facility] [address] [facility] [address] Performing Lab: [facility] [address] [facility] [address] CK,TOTAL 16 L 39-208 May 11, 2022 07:05 [facility] LIVER FUNCTION TESTS Spec imen Type: PLASMA AM No comment enter ed. Ordering Provid er: CODIE LEON Report Released Date/Time: May 11, 2022 09:08 AM Reporting Lab: [facility] [address] [facility] [address] Performing Lab: [facility] [address] [facility] [address] BILIRUBIN, TOTAL 1.6 H 0.2-1.2 ALKALINE PHOSPHATASE 102 40-150 ALT/SGPT 42 <55 AST/SGOT 30 <34 GAMMA GTP 52 <64 DIR. BILIRUBIN 1.2 H <0.5 May 11, 2022 06:14 [facility] FINGERSTICK GLUCOSE Speci men Type: BLOOD AM Comment: Mark casillas Nurse Notified Ordering Provid er: CODIE LEON Report Released Date/Time: May 11, 2022 06:42 AM Reporting Lab: [facility] [address] [facility] [address] Performing Lab: [facility] [address] [facility] [address] FINGERSTICK GLUCOSE 345 H 70-100 May 11, 2022 02:24 [facility] FINGERSTICK GLUCOSE Speci men Type: BLOOD AM Comment: Mark casillas Ordering Provid er: CODIE LEON Report Released Date/Time: May 11, 2022 02:44 AM Reporting Lab: [facility] [address] [facility] [address] Performing Lab: [facility] [address] [facility] [address] FINGERSTICK GLUCOSE 375 H 70-100 May 10, 2022 08:38 [facility] FINGERSTICK GLUCOSE Speci men Type: BLOOD PM Comment: Mark casillas Ordering Provid er: CODIE LEON Report Released Date/Time: May 11, 2022 12:31 AM Reporting Lab: [facility] [address] [facility] [address] Performing Lab: [facility] [address] [facility] [address] FINGERSTICK GLUCOSE 346 H 70-100 May 10, 2022 05:05 [facility] FINGERSTICK GLUCOSE Speci men Type: BLOOD PM Comment: Mark casillas Nurse Notified Ordering Provid er: CODIE LEON Report Released Date/Time: May 10, 2022 11:50 PM Reporting Lab: [facility] [address] [facility] [address] Performing Lab: [facility] [address] [facility] [address] FINGERSTICK GLUCOSE 245 H 70-100 May 10, 2022 02:00 [facility] VANCOMYCIN (TROUGH) Speci men Type: PLASMA PM No comment enter ed. Ordering Provid er: CODIE LEON Report Released Date/Time: May 11, 2022 01:34 AM Reporting Lab: [facility] [address] Performing Lab: [facility] [address] VANCOMYCIN (TROUGH) 31.8 H 10.0-15.0 May 10, 2022 [facility] BASIC METABOLIC Specimen Typ e: PLASMA 02:00 PM PANEL+MG No comment enter ed. Ordering Provid er: CODIE LEON Report Released Date/Time: May 11, 2022 01:34 AM Reporting Lab: [facility] [address] Performing Lab: [facility] [address] CREATININE 1.1 .7-1.2 UREA NITROGEN 22 8-26 GLUCOSE 279 H 70-100 SODIUM 150 H 136-145 POTASSIUM 3.2 L 3.5-5.1 CHLORIDE 116 H 98-107 CO2 23 22-29 CALCIUM 8.5 8.4-10.2 MAGNESIUM 2.0 1.6-2.6 ANION GAP 11 5-15 CREAT EGFR(CKD-EPI) 65 >60 May 10, 2022 01:20 PM [facility] CBC & DIFF Specim en Type: BLOOD Comment: Automa nola Differential Performed Ordering Provid er: MD ESTEBAN Report Released Date/Time: May 10, 2022 08:52 PM Reporting Lab: [facility] [address] Performing Lab: [facility] [address] WBC 16.24 H 4.0-11.0 RBC 3.76 L [...] 0.28 H 0-0.1 May 10, 2022 11:07 [facility] FINGERSTICK GLUCOSE Speci men Type: BLOOD AM Comment: Mark casillas Nurse Notified Ordering Provid er: CODIE LEON Report Released Date/Time: May 11, 2022 12:31 AM Reporting Lab: [facility] [address] [facility] [address] Performing Lab: [facility] [address] [facility] [address] FINGERSTICK GLUCOSE 253 H 70-100 May 10, 2022 06:16 [facility] FINGERSTICK GLUCOSE Speci men Type: BLOOD AM Comment: Mark casillas Nurse Notified Ordering Provid er: CODIE LEON Report Released Date/Time: May 10, 2022 11:50 PM Reporting Lab: [facility] [address] [facility] [address] Performing Lab: [facility] [address] [facility] [address] FINGERSTICK GLUCOSE 271 H 70-100 May 09, 2022 09:07 [facility] FINGERSTICK GLUCOSE Speci men Type: BLOOD PM Comment: Mark casillas Ordering Provid er: CODIE LEON Report Released Date/Time: May 10, 2022 11:50 PM Reporting Lab: [facility] [address] [facility] [address] Performing Lab: [facility] [address] [facility] [address] FINGERSTICK GLUCOSE 209 H 70-100 May 09, 2022 05:33 [facility] FINGERSTICK GLUCOSE Speci men Type: BLOOD PM Comment: Mark casillas Nurse Notified Ordering Provid er: CODIE LEON Report Released Date/Time: May 09, 2022 05:53 PM Reporting Lab: [facility] [address] [facility] [address] Performing Lab: [facility] [address] [facility] [address] FINGERSTICK GLUCOSE 251 H 70-100 May 09, 2022 02:09 [facility] VANCOMYCIN (PEAK) Specime n Type: SERUM PM No comment enter ed. Ordering Provid er: AMARIS DE JESUS Report Released Date/Time: May 09, 2022 09:33 AM Reporting Lab: [facility] [address] [facility] [address] Performing Lab: [facility] [address] [facility] [address] VANCOMYCIN (PEAK) 24.2 20.0-40.0 May 09, 2022 11:19 [facility] FINGERSTICK GLUCOSE Speci men Type: BLOOD AM Comment: Mark casillas Nurse Notified Ordering Provid er: CODIE LEON Report Released Date/Time: May 09, 2022 11:38 AM Reporting Lab: [facility] [address] [facility] [address] Performing Lab: [facility] [address] [facility] [address] FINGERSTICK GLUCOSE 240 H 70-100 May 09, 2022 08:13 [facility] VANCOMYCIN (TROUGH) Speci men Type: SERUM AM No comment enter ed. Ordering Provid er: AMARIS DE JESUS Report Released Date/Time: May 08, 2022 11:14 AM Reporting Lab: [facility] [address] [facility] [address] Performing Lab: [facility] [address] [facility] [address] VANCOMYCIN (TROUGH) 16.1 H 10.0-15.0 May 09, 2022 05:33 AM [facility] CBC & DIFF Specim en Type: BLOOD Comment: Automa nola Differential Performed Ordering Provid er: CODIE LEON Report Released Date/Time: May 08, 2022 05:27 PM Reporting Lab: [facility] [address] [facility] [address] Performing Lab: [facility] [address] [facility] [address] WBC 14.92 H 4.0-11.0 RBC 3.41 L [...] GRAN 0.16 H 0-0.1 May 09, 2022 [facility] COMPREHENSIVE METABOLIC Spec imen Type: PLASMA 05:32 AM PANEL+MG No comment enter ed. Ordering Provid er: CODIE LEON Report Released Date/Time: May 08, 2022 05:27 PM Reporting Lab: [facility] [address] [facility] [address] Performing Lab: [facility] [address] [facility] [address] CREATININE 1.2 0.7-1.2 UREA NITROGEN 25 8-26 [...] 59 L >60 May 09, 2022 05:16 [facility] FINGERSTICK GLUCOSE Speci men Type: BLOOD AM Comment: Mark casillas Nurse Notified Ordering Provid er: CODIE LEON Report Released Date/Time: May 09, 2022 07:27 AM Reporting Lab: [facility] [address] [facility] [address] Performing Lab: [facility] [address] [facility] [address] FINGERSTICK GLUCOSE 295 H 70-100 May 08, 2022 09:32 PM [facility] EXTRA MINT TUBE Specim en Type: PLASMA No comment enter ed. Ordering Provid er: MD ESTEBAN Report Released Date/Time: May 08, 2022 09:32 PM Reporting Lab: [facility] [address] [facility] [address] Performing Lab: [facility] [address] [facility] [address] EXTRA MINT TUBE RECEIVED May 08, 2022 09:32 PM [facility] EXTRA PURPLE TUBE Spec imen Type: BLOOD No comment enter ed. Ordering Provid er: MD ESTEBAN Report Released Date/Time: May 08, 2022 09:32 PM Reporting Lab: [facility] [address] [facility] [address] Performing Lab: [facility] [address] [facility] [address] EXTRA PURPLE TUBE RECEIVED May 08, 2022 09:32 PM [facility] EXTRA BLUE TUBE Specim en Type: PLASMA No comment enter ed. Ordering Provid er: MD ESTEBAN Report Released Date/Time: May 08, 2022 09:32 PM Reporting Lab: [facility] [address] [facility] [address] Performing Lab: [facility] [address] [facility] [address] EXTRA BLUE TUBE RECEIVED May 08, 2022 09:32 [facility] EXTRA GOLD GEL TUBE Speci men Type: SERUM PM No comment enter ed. Ordering Provid er: MD ESTEBAN Report Released Date/Time: May 08, 2022 09:32 PM Reporting Lab: [facility] [address] [facility] [address] Performing Lab: [facility] [address] [facility] [address] EXTRA GOLD GEL TUBE RECEIVED May 08, 2022 09:32 PM [facility] EXTRA BRASWELL TUBE Specim en Type: PLASMA No comment enter ed. Ordering Provid er: MD ESTEBAN Report Released Date/Time: May 08, 2022 09:37 PM Reporting Lab: [facility] [address] [facility] [address] Performing Lab: [facility] [address] [facility] [address] EXTRA BRASWELL TUBE RECEIVED May 08, 2022 09:32 PM [facility] LACTIC ACID Specim en Type: PLASMA No comment enter ed. Ordering Provid er: OG DIAL Report Released Date/Time: May 08, 2022 09:49 PM Reporting Lab: [facility] [address] [facility] [address] Performing Lab: [facility] [address] [facility] [address] LACTIC ACID 2.5 H 0.5-2.2 May 08, 2022 09:32 PM [facility] BNP Specim en Type: PLASMA No comment enter ed. Ordering Provid er: OG DIAL Report Released Date/Time: May 08, 2022 09:50 PM Reporting Lab: [facility] [address] Performing Lab: [facility] [address] BNP 897 H <99 May 08, 2022 09:32 PM [facility] BLOOD GASES Specim en Type: VENOUS BLOOD Comment: O2 THE RAPY = 3L PM Ordering Provid er: OG DIAL Report Released Date/Time: May 08, 2022 09:50 PM Reporting Lab: [facility] [address] Performing Lab: [facility] [address] PH 7.36 7.33-7.43 PCO2 47 41-51 BICARBONATE 24.4 21.0-30.0 PO2 31 L 35-40 OXYGEN SATURATION 54.7 L 70.0-75.0 PH(TEMP CORRECTED) 7.37 7.33-7.43 PCO2(TEMP CORRECTED) 46 41-51 PO2(TEMP CORRECTED) 31 L 35-40 PATIENT TEMPERATURE 36.7 May 08, 2022 09:32 PM [facility] CBC Specim en Type: BLOOD No comment enter ed. Ordering Provid er: OG DIAL Report Released Date/Time: May 08, 2022 09:50 PM Reporting Lab: [facility] [address] Performing Lab: [facility] [address] WBC 18.54 H 4.0-11.0 RBC 3.68 L 4.6-6.2 HGB 11.5 L 13.5-17.9 HCT 35.1 L 41-54 MCV 95.4 80-100 MCH 31.3 27-33 MCHC 32.8 32.0-37.5 PLT 221 150-400 MPV 11.1 H 7.4-10.4 RDW 14.9 H 11.5-14.5 May 08, 2022 [facility] COMPREHENSIVE METABOLIC Spec imen Type: PLASMA 09:32 PM PANEL+MG No comment enter ed. Ordering Provid er: OG DIAL Report Released Date/Time: May 08, 2022 09:50 PM Reporting Lab: [facility] [address] Performing Lab: [facility] [address] [facility] [address] CREATININE 1.3 H 0.7-1.2 UREA NITROGEN 26 [...] 54 L >60 May 08, 2022 08:27 [facility] FINGERSTICK GLUCOSE Speci men Type: BLOOD PM Comment: Mark casillas Nurse Notified Ordering Provid er: CODIE LEON Report Released Date/Time: May 08, 2022 08:55 PM Reporting Lab: [facility] [address] [facility] [address] Performing Lab: [facility] [address] [facility] [address] FINGERSTICK GLUCOSE 272 H 70-100 May 08, 2022 06:56 [facility] FINGERSTICK GLUCOSE Speci men Type: BLOOD PM Comment: Mark casillas Ordering Provid er: CODIE LEON Report Released Date/Time: May 08, 2022 07:08 PM Reporting Lab: [facility] [address] [facility] [address] Performing Lab: [facility] [address] [facility] [address] FINGERSTICK GLUCOSE 262 H 70-100 May 08, 2022 04:50 [facility] FINGERSTICK GLUCOSE Speci men Type: BLOOD PM Comment: Nurse Notified Ordering Provid er: CODIE LEON Report Released Date/Time: May 08, 2022 05:14 PM Reporting Lab: [facility] [address] [facility] [address] Performing Lab: [facility] [address] [facility] [address] FINGERSTICK GLUCOSE 330 H 70-100 May 08, 2022 11:21 [facility] FINGERSTICK GLUCOSE Speci men Type: BLOOD AM Comment: Mark casillas Nurse Notified Ordering Provid er: CODIE LEON Report Released Date/Time: May 08, 2022 11:51 AM Reporting Lab: [facility] [address] Performing Lab: [facility] [address] [facility] [address] FINGERSTICK GLUCOSE 231 H 70-100 May 08, 2022 07:25 AM [facility] CBC & DIFF Specim en Type: BLOOD Comment: Automa nola Differential Performed Ordering Provid er: BETO CAO Report Released Date/Time: May 07, 2022 12:28 PM Reporting Lab: [facility] [address] Performing Lab: [facility] [address] WBC 16.29 H 4.0-11.0 RBC 3.38 L [...] GRAN 0.26 H 0-0.1 May 08, 2022 [facility] PROTHROMBIN TIME/INR Specime n Type: PLASMA 07:25 AM No comment enter ed. Ordering Provid er: BETO CAO Report Released Date/Time: May 07, 2022 12:28 PM Reporting Lab: [facility] [address] [facility] [address] Performing Lab: [facility] [address] .INR 1.2 H 0.8-1.1 .PT 14.2 H 9.4-12.5 May 08, 2022 [facility] COMPREHENSIVE METABOLIC Spec imen Type: PLASMA 07:25 AM PANEL+MG No comment enter ed. Ordering Provid er: BETO CAO Report Released Date/Time: May 07, 2022 12:28 PM Reporting Lab: [facility] [address] [facility] [address] Performing Lab: [facility] [address] [facility] [address] CREATININE 1.1 0.7-1.2 UREA NITROGEN 27 H [...] EGFR(CKD-EPI) 65 >60 May 08, 2022 06:53 [facility] FINGERSTICK GLUCOSE Speci men Type: BLOOD AM Comment: Mark casillas Ordering Provid er: CODIE LEON Report Released Date/Time: May 08, 2022 07:18 AM Reporting Lab: [facility] [address] [facility] [address] Performing Lab: [facility] [address] [facility] [address] FINGERSTICK GLUCOSE 276 H 70-100 May 07, 2022 08:36 [facility] FINGERSTICK GLUCOSE Speci men Type: BLOOD PM Comment: Nurse Notified Ordering Provid er: CODIE LEON Report Released Date/Time: May 08, 2022 12:29 AM Reporting Lab: [facility] [address] [facility] [address] Performing Lab: [facility] [address] [facility] [address] FINGERSTICK GLUCOSE 282 H 70-100 May 07, 2022 07:04 PM [facility] LACTIC ACID Specim en Type: PLASMA No comment enter ed. Ordering Provid er: BETO CAO Report Released Date/Time: May 07, 2022 06:28 PM Reporting Lab: [facility] [facility] [address] [facility] [address] Performing Lab: [facility] [address] [facility] [address] LACTIC ACID 2.0 0.5-2.2 May 07, 2022 04:46 [facility] FINGERSTICK GLUCOSE Speci men Type: BLOOD PM Comment: Nurse Notified Ordering Provid er: BETO CAO Report Released Date/Time: May 07, 2022 05:00 PM Reporting Lab: [facility] [address] [facility] [address] Performing Lab: [facility] [address] [facility] [address] FINGERSTICK GLUCOSE 274 H 70-100 May 07, 2022 12:47 [facility] FINGERSTICK GLUCOSE Speci men Type: BLOOD PM Comment: Mark casillas Nurse Notified Ordering Provid er: BETO CAO Report Released Date/Time: May 07, 2022 05:32 PM Reporting Lab: [facility] [address] [facility] [address] Performing Lab: [facility] [address] [facility] [address] FINGERSTICK GLUCOSE 309 H 70-100 May 07, 2022 06:35 [facility] FINGERSTICK GLUCOSE Speci men Type: BLOOD AM Comment: Mark casillas Nurse Notified Ordering Provid er: GAYLA DOMINGUEZ Report Released Date/Time: May 07, 2022 06:46 AM Reporting Lab: [facility] [address] [facility] [address] Performing Lab: [facility] [address] [facility] [address] FINGERSTICK GLUCOSE 352 H 70-100 May 07, 2022 06:15 AM [facility] ALBUMIN Specim en Type: PLASMA No comment enter ed. Ordering Provid er: GAYLA DOMINGUEZ Report Released Date/Time: May 06, 2022 06:33 PM Reporting Lab: [facility] [address] [facility] [address] Performing Lab: [facility] [address] [facility] [address] ALBUMIN 3.0 L 3.5-5.2 May 07, 2022 [facility] COMPREHENSIVE METABOLIC Spec imen Type: PLASMA 06:15 AM PANEL+MG No comment enter ed. Ordering Provid er: GAYLA DOMINGUEZ Report Released Date/Time: May 06, 2022 09:11 PM Reporting Lab: [facility] [address] Performing Lab: [facility] [address] CREATININE 1.2 0.7-1.2 UREA NITROGEN 25 8-26 [...] L >60 May 07, 2022 06:15 AM [facility] CBC & DIFF Specim en Type: BLOOD Comment: Manual Differential Performed Ordering Provid er: GAYLA DOMINGUEZ Report Released Date/Time: May 06, 2022 09:11 PM Reporting Lab: [facility] [address] Performing Lab: [facility] [address] WBC 20.25 H 4.0-11.0 RBC 3.54 L [...] NORMOCYTIC, NORMOCHROMIC May 07, 2022 12:19 AM [facility] LACTIC ACID Specim en Type: PLASMA No comment enter ed. Ordering Provid er: GAYLA DOMINGUEZ Report Released Date/Time: May 06, 2022 07:13 PM Reporting Lab: [facility] [address] Performing Lab: [facility] [address] [facility] [address] LACTIC ACID 2.7 H 0.5-2.2 May 06, 2022 10:45 [facility] FINGERSTICK GLUCOSE Speci men Type: BLOOD PM Comment: Mark casillas Nurse Notified Ordering Provid er: GAYLA DOMINGUEZ Report Released Date/Time: May 07, 2022 12:08 AM Reporting Lab: [facility] [address] [facility] [address] Performing Lab: [facility] [address] [facility] [address] FINGERSTICK GLUCOSE 320 H 70-100 May 06, 2022 06:53 [facility] MRSA SURVL NARES Specimen Type: NARES PM DNA No comment enter ed. Ordering Provid er: GAYLA DOMINGUEZ Report Released Date/Time: May 06, 2022 06:33 PM Reporting Lab: [facility] [address] [facility] [address] Performing Lab: [facility] [address] [facility] [address] MRSA SURVL NARES DNA POSITIVE HH Negative May 06, 2022 06:51 [facility] CARDIAC TROPONIN I Specim en Type: PLASMA PM No comment enter ed. Ordering Provid er: GAYLA DOMINGUEZ Report Released Date/Time: May 06, 2022 06:05 PM Reporting Lab: [facility] [address] [facility] [address] Performing Lab: [facility] [address] [facility] [address] CARDIAC TROPONIN I <0.028 <0.028 May 06, 2022 06:51 PM [facility] LACTIC ACID Specim en Type: PLASMA No comment enter ed. Ordering Provid er: GAYLA DOMINGUEZ Report Released Date/Time: May 06, 2022 06:04 PM Reporting Lab: [facility] [address] [facility] [address] Performing Lab: [facility] [address] [facility] [address] LACTIC ACID 3.1 H 0.5-2.2 May 06, 2022 06:51 [facility] C-REACTIVE PROTEIN Specim en Type: PLASMA PM No comment enter ed. Ordering Provid er: GAYLA DOMINGUEZ Report Release d Date/Time: May 06, 2022 09:29 PM Reporting Lab: [facility] [address] [facility] [address] Performing Lab: [facility] [address] [facility] [address] C-REACTIVE PROTEIN 392.40 H <5.00 May 06, 2022 06:51 [facility] EXTRA GOLD GEL TUBE Speci men Type: SERUM PM No comment enter ed. Ordering Provid er: GAYLA DOMINGUEZ Report Released Date/Time: May 06, 2022 06:52 PM Reporting Lab: [facility] [address] [facility] [address] Performing Lab: [facility] [address] [facility] [address] EXTRA GOLD GEL TUBE RECEIVED May 06, 2022 10:51 AM [facility] URINALYSIS Specim en Type: URINE No comment enter ed. Ordering Provid er: MODESTA VILLANUEVA Report Released Date/Time: May 06, 2022 10:11 AM Reporting Lab: [facility] [address] [facility] [address] Performing Lab: [facility] [address] [facility] [address] URINE COLOR YELLOW SPECIFIC GRAVITY 1.020 1.003-1.035 [...] ESTERASE 500 NEGATIVE May 06, 2022 10:24 [facility] COVID-19 DIAGNOSTIC Speci men Type: NASOPHARYNGEAL AM PANEL (CEPHEID) Comment: Cephei jessica GeneXpert (618) Ordering Provid er: MODESTA VILLANUEVA Report Released Date/Time: May 06, 2022 10:11 AM Reporting Lab: [facility] [address] [facility] [address] Performing Lab: [facility] [address] [facility] [address] COVID-19 (CEPHEID) Not Detected Not Dete cted May 06, 2022 10:20 AM [facility] POC ABG/LACTATE Specim en Type: VENOUS BLOOD No comment enter ed. Ordering Provid er: MODESTA VILLANUEVA Report Released Date/Time: May 06, 2022 10:22 AM Reporting Lab: [facility] [address] [facility] [address] Performing Lab: [facility] [address] [facility] [address] POC PH 7.410 7.31-7.41 POC PCO2 28.9 L 35.00-45.00 POC PO2 82 H 35.0-40.0 POC TCO2 19 L 24.0-29.0 POC HCO3 18.3 L 23.0-28.0 POC BE ECT -6 L -2 POC SO2 96 H 70-75 POC LACTATE 3.62 0.90-1.70 May 06, 2022 10:00 AM [facility] PHOSPHORUS Specim en Type: PLASMA No comment enter ed. Ordering Provid er: MODESTA VILLANUEVA Report Released Date/Time: May 06, 2022 10:11 AM Reporting Lab: [facility] [address] [facility] [address] Performing Lab: [facility] [address] [facility] [address] PHOSPHORUS 2.5 2.3-4.7 May 06, 2022 10:00 [facility] PROTHROMBIN TIME/INR Spec imen Type: PLASMA AM No comment enter ed. Ordering Provid er: MODESTA VILLANUEVA Report Released Date/Time: May 06, 2022 10:11 AM Reporting Lab: [facility] [address] [facility] [address] Performing Lab: [facility] [address] [facility] [address] .INR 2.5 H 0.8-1.1 .PT 29.2 H 9.4-12.5 May 06, 2022 10:00 [facility] ACT PART THROMBO TIME Spe cimen Type: PLASMA AM No comment enter ed. Ordering Provid er: MODESTA VILLANUEVA Report Released Date/Time: May 06, 2022 10:11 AM Reporting Lab: [facility] [address] [facility] [address] Performing Lab: [facility] [address] [facility] [address] APTT 37.8 H 25.1-36.5 May 06, 2022 10:00 AM [facility] CBC & DIFF Specim en Type: BLOOD Comment: Manual Differential Performed Ordering Provid er: MODESTA VILLANUEVA Report Released Date/Time: May 06, 2022 10:11 AM Reporting Lab: [facility] [address] [facility] [address] Performing Lab: [facility] [address] [facility] [address] WBC 18.82 H 4.0-11.0 RBC 3.70 L [...] MORPHOLOGY PRESENT May 06, 2022 10:00 AM [facility] PROCALCITONIN Specim en Type: PLASMA No comment enter ed. Ordering Provid er: MODESTA VILLANUEVA Report Released Date/Time: May 06, 2022 10:11 AM Reporting Lab: [facility] [address] [facility] [address] Performing Lab: [facility] [address] [facility] [address] PROCALCITONIN 22.29 H <0.09 May 06, 2022 10:00 [facility] CARDIAC TROPONIN I Specim en Type: PLASMA AM Comment: Critic al Value Reported To: BROOKS COTE 05-06-2022 @1053 BY MBB. Critical value report confirmed. Ordering Provid er: MODESTA VILLANUEVA Report Released Date/Time: May 06, 2022 10:11 AM Reporting Lab: [facility] [address] [facility] [address] Performing Lab: [facility] [address] [facility] [address] CARDIAC TROPONIN I 0.035 HH <0.028 May 06, 2022 [facility] COMPREHENSIVE METABOLIC Spec imen Type: PLASMA 10:00 AM PANEL+MG Comment: Manual Differential Performed Ordering Provid er: MODESTA VILLANUEVA Report Released Date/Time: May 06, 2022 10:11 AM Reporting Lab: [facility] [address] [facility] [address] Performing Lab: [facility] [address] [facility] [address] CREATININE 1.3 H 0.7-1.2 UREA NITROGEN 25 [...] L >60 May 06, 2022 10:00 AM [facility] LIPASE Specim en Type: PLASMA No comment enter ed. Ordering Provid er: MODESTA VILLANUEVA Report Released Date/Time: May 06, 2022 10:11 AM Reporting Lab: [facility] [address] [facility] [address] Performing Lab: [facility] [address] [facility] [address] LIPASE <4 <60 May 06, 2022 10:00 [facility] EXTRA GOLD GEL TUBE Speci men Type: SERUM AM No comment enter ed. Ordering Provid er: LINNEA RAND Report Released Date/Time: May 06, 2022 10:25 AM Reporting Lab: [facility] [address] [facility] [address] Performing Lab: [facility] [address] [facility] [address] EXTRA GOLD GEL TUBE RECEIVED May 06, 2022 09:46 [facility] FINGERSTICK GLUCOSE Speci men Type: BLOOD AM Comment: Mark casillas Nurse Notified Ordering Provid er: MODESTA VILLANUEVA Report Released Date/Time: May 06, 2022 09:59 AM Reporting Lab: [facility] [address] [facility] [address] Performing Lab: [facility] [address] [facility] [address] FINGERSTICK GLUCOSE 369 H 70-100 Apr 30, 2022 09:17 AM [facility] CBC Specim en Type: BLOOD No comment enter ed. Ordering Provid er: BILL ROONEY Report Release d Date/Time: Apr 30, 2022 08:21 AM Reporting Lab: [facility] [address] Performing Lab: [facility] [address] WBC 10.40 4.0-11.0 RBC 3.96 L 4.6-6.2 HGB 12.3 L 13.5-17.9 HCT 37.8 L 41-54 MCV 95.5 80-100 MCH 31.1 27-33 MCHC 32.5 32.0-37.5 PLT 286 150-400 MPV 10.1 7.4-10.4 RDW 14.6 H 11.5-14.5 Apr 30, 2022 [facility] BASIC METABOLIC Specimen Typ e: PLASMA 09:17 AM PANEL+MG No comment enter ed. Ordering Provid er: BILL ROONEY Report Released Date/Time: Apr 30, 2022 08:21 AM Reporting Lab: [facility] [address] Performing Lab: [facility] [address] CREATININE 1.2 0.7-1.2 UREA NITROGEN 26 8-26 [...] Source Pressure Rate Mass Index May 07 [facility]2021 12:14 [place] PM [facility] May 07 [facility] 2021 04[facility]56 [facility] May 07 [facility] 2021 03:23 [facility] May 07 266.76 35 [place] 2021 12:15 lb [facility] Social History: Smoking Status (Most current) and Tobacco Use (All prior to encounter date) This section includes the most current, and the historical, smoking and tobacco-related health factors from the [place] facility where the Encounter took place.Current Smoking Status This section includes the most current smoking, or tobacco-related health factor, from the [place] facility where the Encounter took place. Date/Time Current Smoking Status Comment Facility Feb 02, 2022 09:30 AM [facility] Tobacco Use History This section includes a history of the smoking, or tobacco- related health factors, that were collected on or before the date of the Encounter. The data comes from the [facility] where the Encounter took place. Date/Time Smoking Status/Tobacco Use Comment [facility] Mar 22, 2021 07:45 AM [place] [place] Oct 02, 2019 10:02 AM [place] [place] [facility] May 21, 2018 09:05 AM [place] [facility] [...] ALL of a patient's completed or amended [place] Advance and Rescinded Directives. The entries below indicate that a directive exists for the patient, but an actual copy is not included with this document. The data comes from all [facility]. Date Advance Directives Provider Source Apr 18, 2018 ADVANCE DIRECTIVE LARISSA SIGALA [facility] Apr 18, 2018 ADVANCE DIRECTIVE DISCUSSION LARISSA SIGALA [facility] December 23, 2017 CLINICAL WARNING FARHAT SCHMID [facility] May 11, 2003 ADVANCE DIRECTIVE BERT CASILLAS [facility] Radiology Reports: +/- 30 days [...] the Encounter. The data comes from all [place] treatment facilities. Date/Time Radiology Report Provider Source May 11, 2022 09:46 CHEST 1 VIEW: SONJA OVALLES AM LUISANA EDDY [id number] -1935 M Exm Date: MAY 11, 2022@09:46 Req Phys: CODIE LEON Pat Loc: OP Unknown /05-13-2022@05:05 Img Loc: MAIN X-RAY Service: PRIMARY CARE - MED OFFICE (Case [id number] COMPLETE) CHEST 1 VIEW (RAD Detailed) CPT:77393 Proc Modifiers : PORTABLE EXAM Reason for [...] 11, 2022 Date Verified: MAY 11, 2022 [facility] E-Sig:/ES/SONJA OVALLES MD Report: CHEST 1 VIEW [...] Primary Interpreting Staff: SONJA OVALLES MD, RADIOLOGIST ([place] Skinner) /[facility] May 10, 2022 03:49 CT HEAD (P): RADIOLOGY,OUTSIDE [facility] PM LUISANA EDDY [id number] -1935 M SERVICE Exm Date: MAY 10, 2022@15:49 Req Phys: CODIE LEON Loc: OP Unknown /05-13-2022@05:05 Img Loc: CT IMAGING Service: PRIMARY CARE - MED OFFICE (Case [id number] COMPLETE) CT HEAD/BRAIN W/O CONTRAST (CT Detailed) CPT:95120 Reason for Study: CHANGE IN MENTAL STATUS Clinical History: CHANGE IN MENTAL STATUS. ORDER ADMINISTRATIVELY ENTERED FOLLOWING SYSTEM OUTAGE. Report Status: Verified Date Reported: MAY 10, 2022 Date Verified: MAY 10, 2022 [place] [facility] E-Sig: Report: CT HEAD/BRAIN W/O CONTRAST [PRINTSET] HISTORY: Change in mental status. COMPARISON: CT from 05/07/2022. TECHNIQUE: Contiguous axial CT images from the level of the skull base through the skull apex, with coronal and s agittal reformats, performed at the local [place] facility. 321 images were received by the [place] National Teleradiology Program (NTP) for interpretation. RADIATION [...] prior study. READING PHYSICIAN: Akash Mccoy M.D. -[phone] 05/10/2022 17:35 PDT [facility] National Teleradiology Program [phone] (For Medical Practitioner Use Only ) Attention Patients / Veterans: If you have ques tions or concerns about these test results, please contact your o rdering provider or primary care team. Primary Interpreting Staff: RADIOLOGY,OUTSIDE SERVICE, Staff Physician / May 08, 2022 07:45 CT T-SPINE (P): RADIOLOGY,OUTSIDE [facility] PM LUISANA EDDY [id number] -1935 M SERVICE Exm Date: MAY 08, 2022@19:45 Req Phys: CODIE LEON Pat Loc: OP Unknown /05-13-2022@05:05 Img Loc: CT IMAGING Service: PRIMARY CARE - MED OFFICE (Case [id number] COMPLETE) CT SPINE THORACIC W/O CONTR AST (CT Detailed) CPT:33173 Reason for Study: mrsa bacteremia, spinal surge ry - r/o abscess or discitis Clinical History: Gabbs IS NOT under investigation for COVID-19 or is COVID-19 negative Defer to radiologist for final CT protocol. Responsible provider name and phone number to n otify for critical findings if other than user placing the order a nd pager listed below: User placing orders pager: [phone] LAST 3: Collection DT Specimen Test Name [...] GFR (eGF 44 L Ref: >=60 Allergies: ([place] only) SIMVASTATIN (Feb 29, 2004) CEPHALEXIN (Mar 01, 2004) Report Status: Verified Date Reported: MAY 08, 2022 Date Verified: MAY 08, 2022 [place] [facility]inner E-Sig: Report: CT SPINE THORACIC W/O CONTRAST [PRINTSET] HISTORY:MRSA bacteremia NUMBER OF IMAGES:[id number] COMPARISON: Correlation with images from recent CT abdomen and pelvis May 06, 2022 TECHNIQUE: A non contrast CT of the thoracic sp [facility] for interpretation. Axial, coronal and sagittal [...] thoracic level. READING PHYSICIAN: Luisana Webb MD -[id number] [phone] 05/08/2022 19:20 PDT [facility] National Teleradiology Program [phone] (For Medical Practitioner Use Only ) Attention Patients / Veterans: If you have ques tions or concerns about these test results, please contact your [facility] provider or primary care team. Primary Interpreting Staff: RADIOLOGY,OUTSIDE SERVICE, Staff Physician / May 08, 2022 04:48 CHEST 1 VIEW: RADIOLOGY,OUTSIDE [facility] PM LUISANA EDDY [id number] -1935 M SERVICE Exm Date: MAY 08, 2022@16:48 Req Phys: CODIE LEON Loc: OP Unknown /05-13-2022@05:05 Img Loc: MAIN X-RAY Service: PRIMARY CARE - MED OFFICE (Case [id number] COMPLETE) CHEST 1 VIEW (RAD Detailed) CPT:90952 Proc Modifiers : PORTABLE EXAM Reason for Study: dyspnea Clinical History: IS NOT under investigation for COVID-19 or is COVID-19 negative acute worsening of dyspnea Responsible provider name and phone number to notify for critical findings if other than user placing the order and pager listed below: User placing orders pager: [phone] malini cell [phone] LAST CREATININE 1.1 (05/08/22) Report Status: Verified Date Reported: MAY 08, 2022 Date Verified: MAY 08, 2022 [facility] [facility]inner E-Sig: Report: CHEST 1 VIEW HISTORY: dyspnea COMPARISON: 05/06/2022 TECHNIQUE: Frontal view(s) of the chest, submit nola to the [place] National Teleradiology Program (NTP) for interp retation. FINDINGS: Reduced lung volumes. Progressive cardiomegaly, and vascular congestion as well as diffuse interstitial prom inence with probable small effusions. Impression: Expiratory exam with findings of CHF and mild e santa READING PHYSICIAN: Nghia Menjivar M.D. -[id number] 10 05/08/2022 18:57 EDT [facility] National Teleradiology Program [phone] (For Medical Practitioner Use Only ) Attention Patients / Veterans: If you have ques tions or concerns about these test results, please contact your o rdering provider or primary care team. Primary Interpreting Staff: RADIOLOGY,OUTSIDE SERVICE, Staff Physician / May 07, 2022 10:29 CT HEAD (P): SHANI POLANCO [facility] LUISANA EDDY [id number] -1935 M Exm Date: MAY 07, 2022@10:29 Req Phys: LUCYBETOWayne Cornejo Loc: OP Unknown/0 05-13-2022@05:05 Img Loc: CT IMAGING Service: PRIMARY CARE - MED OFFICE (Case [id number] COMPLETE) CT HEAD/BRAIN W/O CONTRAST ( CT Detailed) CPT:49963 Reason for Study: seizure noted at [facility] Clinical History: Gabbs IS NOT under investigation for COVID-19 or is COVID-19 negative Defer to radiologist for final CT protocol. Responsible provider name and phone number to n otify for critical findings if other than user placing the order a nd pager listed below: User placing orders pager: [phone] LAST 3: Collection DT Specimen Test Name [...] GFR (eGF 44 L Ref: >=60 Allergies: ([place] only) SIMVASTATIN (Feb 29, 2004) CEPHALEXIN (Mar 01, 2004) Report Status: Verified Date Reported: MAY 07, 2022 Date Verified: MAY 07, 2022 [place] E-Sig:/ES/SHANI POLANCO MD Report: EXAM: CT HEAD/BRAIN [...] lis nola below: User placing orders pager: [phone] LAST 3: Collecti on DT Specimen Test [...] Primary Interpreting Staff: SHANI POLANCO MD, RADIOLOGIST ([place] Skinner) /Javed May 06, 2022 11:40 CHEST 1 VIEW: RADIOLOGY,OUTSIDE [facility] AM LUISANA EDDY [id number] -1935 M SERVICE Exm Date: MAY 06, 2022@11:40 Req Phys: MODESTA VILLANUEVA Loc: [facility] EM[facility]GENCY [facility]PT WALK-IN (Re Img Loc: MAIN X-RAY Service: Unknown (Case [id number] COMPLETE) CHEST 1 VIEW (RAD Detailed) C PT:44769 Proc Modifiers : PORTABLE EXAM Reason for Study: fever, back pain Clinical History: Reason for Exam: Severe Sepsis Pathway to Evalu ate Volume Status and Source of Sepsis Gabbs IS under investigation ([facility]I) for COVID- 19 or is COVID-19+ 86 yo M with fever, back pain Responsible provi violeta name and phone number to notify for critical findings if other than user placing the order and pager listed below: User placing orders pager: [phone] LAST CREATININE 1.2 (04/30/22) Report Status: Verified Date Reported: MAY 06, 2022 Date Verified: MAY 06, 2022 [place]inner E-Sig: Report: Technique: Frontal chest. No comparison Impression: Cardiac silhouette is mildly enlarged. There is mild pulmonary venous congestion. No definite pleural effusion . No pneumothorax seen. READING PHYSICIAN: Vern Donnelly M.D. -[id number] 07 05/06/2022 13:26 EDT [facility] National Teleradiology Program [phone] (For Medical Practitioner Use Only ) Attention Patients / Veterans: If you have ques tions or concerns about these test results, please contact your [facility] provider or primary care team. Primary Interpreting Staff: RADIOLOGY,OUTSIDE SERVICE, Staff Physician / May 06, 2022 10:36 CT (AP) ABDOMEN/PELVIS (P): RADIOLOGY,OUTSIDE [facility] LUISANA EDDY [id number] -1935 M SERVICE Exm Date: MAY 06, 2022@10:36 Req Phys: MODESTA VILLANUEVA Loc: [facility] EM[facility]GENC[facility] WALK-IN (Re Img Loc: CT IMAGING Service: Unknown (Case [id number] COMPLETE) CT (AP) ABDOMEN/PELVIS W CONT RAST(CT Detailed) CPT:74126 Reason for Study: fever, back pain Clinical [...] pager listed below: User placing orders pager: [phone] LAST 3: Collection DT Specimen Test Name [...] ESTIMATED GFR(eGF 44 L Ref: >=60 Allergies: ([place] only) SIMVASTATIN (Feb 29, 2004) CEPHALEXIN (Mar 01, 2004) To see allergies from all [facility] locations click Re ports tab>Remote Data>All Available Sites>Clinical Reports>Aller gies. Report Status: Verified Date Reported: MAY 06, 2022 Date Verified: MAY 06, 2022 Slunk Skinner E-Sig: Report: Exam: CT (AP) ABDOMEN/PELVIS W [...] findings, above. READING PHYSICIAN: Eduin Donaldson M.D. -[phone] 05/06/2022 12:48 [facility] National Teleradiology Program [phone] (For Medical Practitioner Use Only ) Attention Patients / Veterans: If you have ques tions or concerns about these test results, please contact your [facility] provider or primary care team. Primary Interpreting Staff: RADIOLOGY,OUTSIDE SERVICE, Staff Physician / May 06, 2022 10:35 CT HEAD/BRAIN W/O CONTRAST: RADIOLOGY,OUTSIDE [facility] AM NUNULUISANA [id number] -1935 SERVICE Exm Date: MAY 06, 2022@10:35 Req Phys: MODESTA VILLANUEVA Loc: [facility] EMERGENCY DEPT WALK-IN (Re Img Loc: CT IMAGING Service: Unknown (Case 64 COMPLETE) CT HEAD/BRAIN W/O CONTRAST (C T Detailed) CPT:78883 Reason for Study: falls, blood thinner, AMS, se izure Clinical History: falls, blood thinner, AMS, seizure IS under investigation (PUI) for COVID- 19 or is COVID-19+ Defer to radiologist for final CT protocol. Responsible provider name and phone number to n otify for critical findings if other than user placing the order a nd pager listed below: User placing orders pager: [phone] LAST 3: Collection DT Specimen Test Name [...] ESTIMATED GFR(eGF 44 L Ref: >=60 Allergies: ([facility]) SIMVASTATIN (Feb 29, 2004) CEPHALEXIN (Mar 01, 2004) To see allergies from all [facility] locations click Re ports tab>Remote Data>All Available Sites>Clinical Reports>Aller gies. Report Status: Verified Date Reported: MAY 06, 2022 Date Verified: MAY 06, 2022 Slunk Skinner E-Sig: Report: CT HEAD/BRAIN W/O CONTRAST Clinical [...] intracranial C T findings. READING PHYSICIAN: Eduin Donaldsno M.D. -[phone] 05/06/2022 12:30 [facility] National Teleradiology Program [phone] (For Medical Practitioner Use Only ) Attention Patients / Veterans: If you have ques tions or concerns about these test results, please contact your o rdering provider or primary care team. Primary Interpreting Staff: RADIOLOGY,OUTSIDE SERVICE, Staff Physician / May 06, 2022 10:35 CT CERVICAL SPINE W/O CONTRAST: RADIOLOGY,OUT SIDE [facility] AM LUISANA EDDY [id number] -1935 M SERVICE Exm Date: MAY 06, 2022@10:35 Req Phys: MODESTA VILLANUEVA Loc: [facility] EMERGENCY DEPT WALK-IN (Re Img Loc: CT IMAGING Service: Unknown (Case 65 COMPLETE) CT CERVICAL SPINE W/O CONTRAS T (CT Detailed) CPT:35896 Reason for Study: falls, blood thinner, AMS, se izure Clinical History: falls, blood thinner, AMS, seizure Gabbs IS under investigation (PUI) for COVID- 19 or is COVID-19+ Defer to radiologist for final CT protocol. Responsible provider name and phone number to n otify for critical findings if other than user placing the order a nd pager listed below: User placing orders pager: [phone] LAST 3: Collection DT Specimen Test Name [...] ESTIMATED GFR(eGF 44 L Ref: >=60 Allergies: ([place] only) SIMVASTATIN (Feb 29, 2004) CEPHALEXIN (Mar 01, 2004) To see allergies from all [facility] locations click Re ports tab>Remote Data>All Available Sites>Clinical Reports>Lashon king. Report Status: Verified Date Reported: MAY 06, 2022 Date Verified: MAY 06, 2022 Sl[place] Skinner E-Sig: Report: CT CERVICAL SPINE W/O CONTRAST HISTORY:falls, blood thinner, AMS, seizure NUMBER OF IMAGES:[id number] COMPARISON: None available. TECHNIQUE: A non contrast CT of the cervical sp ine was performed at the local [place]. Images were subsequently sent to [facility] for interpretation. Axial, coronal and sagittal [...] cervical spine. -Ancillary findings, above. READING PHYSICIAN: Ediun Donaldson M.D. -[phone] 05/06/2022 12:33 [facility] National Teleradiology Program [phone] (For Medical Practitioner Use Only ) Attention [...] the Encounter. The data comes from all [place] treatment facilities. Date/Time Pathology Report Provider Source May 09, 2022 05:30 AM LR MICROBIOLOGY REPORT: [facility] Reporting Lab: [facility] [CLIA# [id number]] [place] [address] Accession [UID]: [id number] [[id number]] Receiv ed: May 09, 2022@01:35 Collection sample: BLOOD Collection date: Apr 05:30 Provider: CODIE LEON Comment on specimen: LEFT ARM, RECEIVED 2 BLOOD CULTURE BOTTLES Test(s) ordered: CULTURE & SUSCEPTIBILITY...... 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 R TRIMETH/SULFA................. S TETRACYCLINE.................. S CLINDAMYCIN................... S RIFAMPIN...................... S VANCOMYCIN.................... S Bacteriology Remark(s): VANCOMYCIN SHAMIKA: <=0.5 ug/mL THIS REPORT IS FINAL =--=--=--=--=--=--=--=--=--=--=--=--=--= --=--=--=--=--=--=--=--=--=--=--=--=-- Performing Laboratory: Bacteriology Report Performed By: [facility] [CLIA# [id number]] [place] [address] May 08, 2022 03:23 PM LR MICROBIOLOGY REPORT: [facility] Reporting Lab: [facility] [CLIA# [id number]] [place] [address] Accession [UID]: [id number] [[id number]] Receiv ed: May 08, 2022@15:41 Collection sample: BLOOD Collection date: Apr 15:23 Provider: CODIE LEON Comment on specimen: LEFT ARM, RECEIVED 2 BLOOD CULTURE BOTTLES Test(s) ordered: CULTURE & SUSCEPTIBILITY...... completed: May 10, 2022 * BACTERIOLOGY FINAL REPORT => May 10, 2022 16:3 1 TECH CODE: [id number] CULTURE RESULTS: GROWTH SAME THAT OF ANOTHER CULTURE Comment: FOR SUSCEPTIBILITY REPORT SEE PREVIOUS POSITIVE SAME MB 22 [id number] ( 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 from Anaerobic bottle ) ( Recovered from Aerobic bottle ) Bacteriology Remark(s): THIS REPORT IS FINAL =--=--=--=--=--=--=--=--=--=--=--=--=--= --=--=--=--=--=--=--=--=--=--=--=--=-- Performing Laboratory: Bacteriology Report Performed By: [facility] [CLIA# [id number]] [place] [address] May 08, 2022 03:21 PM LR MICROBIOLOGY REPORT: [facility] Reporting Lab: [facility] [CLIA# [id number]] [place] [address] Accession [UID]: [id number] [[id number]] Receiv ed: May 08, 2022@15:40 Collection sample: BLOOD Collection date: Apr 15:21 Provider: CODIE LEON Comment on specimen: RT ARM, RECEIVED 2 BLOOD CU LTURE BOTTLES Test(s) ordered: CULTURE & SUSCEPTIBILITY...... completed: May 10, 2022 * BACTERIOLOGY FINAL REPORT => May 10, 2022 16:3 1 TECH CODE: [id number] CULTURE RESULTS: GROWTH SAME THAT OF ANOTHER CULTURE Comment: FOR SUSCEPTIBILITY REPORT SEE PREVIOUS POSITIVE SAME MB 22 44719 ( 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 from Anaerobic bottle ) ( Recovered from Aerobic bottle ) Bacteriology Remark(s): THIS REPORT IS FINAL =--=--=--=--=--=--=--=--=--=--=--=--=--= --=--=--=--=--=--=--=--=--=--=--=--=-- Performing Laboratory: Bacteriology Report Performed By: [facility] [CLIA# [id number]] [place] [address] May 07, 2022 05:30 AM LR MICROBIOLOGY REPORT: [facility] Reporting Lab: [facility] [CLIA# [id number]] [place] [address] Accession [UID]: [id number] [[id number]] Receiv ed: May 07, 2022@01:35 Collection sample: [...] REPORT SEE PREVIOUS POSITIVE SAME MB 22 35850 ( 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 from Aerobic bottle ) ( Recovered from Anaerobic bottle ) Bacteriology Remark(s): THIS REPORT IS FINAL =--=--=--=--=--=--=--=--=--=--=--=--=--= --=--=--=--=--=--=--=--=--=--=--=--=-- Performing Laboratory: Bacteriology Report Performed By: [facility] [CLIA# [id number]] [place] [address] May 06, 2022 10:51 AM LR MICROBIOLOGY REPORT: [facility] Reporting Lab: [facility] [CLIA# [id number]] [place] [address] Accession [UID]: [id number] [[id number]] Receiv ed: May 06, 2022@11:32 Collection sample: [...] --=--=--=--=--=--=--=--=--=--=--=--=-- Performing Laboratory: Bacteriology Report Performed By: [facility] [CLIA# [id number]] [place] [address] May 06, 2022 10:34 AM LR MICROBIOLOGY REPORT: [facility] Reporting Lab: [facility] [CLIA# [id number]] [place] [address] Accession [UID]: [id number] [[id number]] Receiv ed: May 06, 2022@10:51 Collection sample: BLOOD Collection date: Apr 10:34 Provider: MODESTA VILLANUEVA Comment on specimen: RECEIVED 2 BLOOD CULTURE MILAN TTLES RAC Test(s) ordered: CULTURE & SUSCEPTIBILITY...... completed: May 07, 2022 * BACTERIOLOGY FINAL REPORT => May 08, 2022 08:3 0 TECH CODE: [id number] CULTURE RESULTS: STAPHYLOCOCCUS AUREUS METHICILL IN RESISTANT [...] --=--=--=--=--=--=--=--=--=--=--=--=-- Performing Laboratory: Bacteriology Report Performed By: [facility] [CLIA# [id number]] [place] [address] May 06, 2022 10:00 AM LR MICROBIOLOGY REPORT: [facility] Reporting Lab: [facility] [CLIA# [id number] 147] [place] [address] Accession [UID]: [id number] [[id number]] Receiv ed: May 06, 2022@10:41 Collection sample: [...] SUSCEPTIBILITY REPORT SEE PREVIOUS POSITIVE SAME 22 90148 ( 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 from Anaerobic bottle ) ( Recovered from Aerobic bottle ) Bacteriology Remark(s): THIS REPORT IS FINAL =--=--=--=--=--=--=--=--=--=--=--=--=--= --=--=--=--=--=--=--=--=--=--=--=--=-- Performing Laboratory: Bacteriology Report Performed By: [facility] [CLIA# [id number]] [place] [address] Encounter Notes: All associated encounter notes This section contains the clinical notes associated to the Encounter. Date/Time Encounter Note(s) Provider Source May 07, 2022 10:45 AM [facility]OLOGY CONSULT STANDARD TITLE: NEUROLOGY CONSULT DATE OF NOTE: MAY 07, 2022@10:45 ENTRY DATE: MAY 07, 2022@10:45:45 AUTHOR: CASS ROSALES EXP COSIGNER: URGENCY: STATUS: COMPLETED NEUROLOGY CONSULT Has ADDENDA NEUROLOGY INPT CONSULT Requesting Provider: Beto Cao Reason for Consultation: Witnessed seizure per JLV, likely from infectio us etiology but would like to know if any further workup. thanks HISTORY OF PRESENT ILLNESS Luisana Eddy is an 86-year-old with a fib, diastolic heart failure, HTN, and CKD3 who was transferred from [facility] with fever and back pain. Per report, he was found to have a thoraci c spine fracture and had been complaining of worsening yaya k pain. He was admitted to the hospital and on 05/02 there was report of seizure activity. This was reported to be clinching of hands and extremities. He was unresponsive for a few m inutes and was confused after waking up. Discussed with his son, the patient had not had a seizure before in the past. There is no family history of seizures. REVIEW OF SYSTEMS Complete 10-point review of systems is negative unless noted in HPI. PAST MEDICAL/SURGICAL HISTORY Active problems - Computerized Problem List is t he source for the followin. Type 2 diabetes mellitus (SNOMED CT 13756016 ) 2. OBESITY, UNSP 3. Psoriasis * 4. Social and personal history finding - Lives alone. Has brother in [place]. Friends felipe breaux. 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 5. History of adenomatous polyp of colon - Last c-scope 05/09/15 at [place]. Two small polyp s. - 5 year follow up if appropriate. 6. Elevated PSA - follows with urology at [place] - with BPH on terazosin - February 2021: TURP at [place] 7. Chronic kidney disease stage 3 8. Diastolic heart failure - w/ HTN and dyslipidemia 9. Chronic atrial fibrillation - metoprolol and rivaroxaban 10. history of hospitalization - January 2021: Bacteremia secondary to urinary ou tflow obstruction from BPH - underwent a TURP at [facility] February 2021 11. corns and calluses - followed by podiatry in the community in [facility] 12. Gout - on allopurinol ALLERGIES: SIMVASTATIN (Feb 29, 2004) CEPHALEXIN (Mar 01, 2004) CURRENT MEDICATIONS Active Inpatient Medications (including Supplies ): Active [...] See order details for full text. 9) HYDROMORPHONE INJ,SOLN 0.5MG/0.5ML IV Q8H PRN FOR ACTIVE PAIN 10) INSULIN ASPART (HUMAN) INJ LOW DOSE MEALTIME ACTIVE CORRECTION SQ DTID Low Dose (requiring less stan n 40 units/day) BG 201-250 2 units, BG 251-300 3 uni ts, BG 301-350 4 units, BG 351-400 5 units, BG >400 6 units 11) INSULIN ASPART (HUMAN) INJ LOW DOSE QHS BRANDYN ECTION ACTIVE SQ QHS Low Dose (requiring less than 40 units/d ay) BG 201-250 1 unit, BG 251-300 2 units, BG 301-3 50 3 units, BG 351-400 4 units, BS >400 5 units 12) MELATONIN CAP/TAB 3MG PO QHS ACTIVE 13) NYSTATIN CREAM,TOP THIN LAYER TOP BID PRN sk in folds ACTIVE for fungal infection/rash 14) ONDANSETRON INJ,SOLN 4MG/2ML IV Q6H PRN FOR NAUSEA - ACTIVE try second 15) ONDANSETRON TAB 4MG PO Q6H PRN FOR NAUSEA - try ACTIVE first 16) PIPERACILLIN/TAZOBACTAM 4.5GM 100ML INJ in A CTIVE PIPERACIL/TAZOB 4.5GM PREMIX 100 ML INFUSE OVER 30 Minutes *Indication: sepsis* Pharmacy Confirmation #: [id number] IVPB Q6H 17) RIVAROXABAN TAB 20MG PO QPM for chronic afib ACTIVE 18) SERTRALINE TAB 50MG PO QDAY ACTIVE 19) VANCOMYCIN INJ VANCOMYCIN 1000 MG in 0.9% NA CL 250 ACTIVE ML HEPARIN INCOMPAT*OVER 2 HRS* Starting @ 2100 on 05/06. *Indication: sepsis* IVPB Q12H SOCIAL HISTORY Unable to obtain due to altered mental status. FAMILY HISTORY Per discussion with son, no known family history of seizures. PHYSICAL EXAM General: Well-developed, well-nourished. No acut e distress. HEENT: Normocephalic, atraum atic. Moist mucus membranes. Nares patent, no nasal drainage. Dry blood at gums. CV: Extremities appear appropriately perfused. Resp: Breathing comfortably on room air. No accessory muscle use. No wheezing. Abd: Soft, non-distended, non-tender. Skin: Warm, dry. No jaundice. NEUROLOGIC EXAM Mental Status: Eyes are closed and open to voice . He is oriented to self, location ([place]), and month - reports current year as 1921. Cranial Nerves: Gaze is conjugate. Pupils 3-4mm equal, round, reactive. EOMI with smooth pursuit, no nyst agmus. Sensation is intact to light touch in the V1- V3 distribtutions. Facial movements are symmetri c. Hearing intact to conversation. No dysarthria. Shoulder shrug strong bilaterally. Tongue protrudes midline. Motor: No asterixis, tremors or other ab normal movements observed. End Polisher, elbow flexion and extension, ankle plantarflexion are 5/5 bilaterally. He does not follow the remainder of the motor exam, but all extremities are antigravity and he is resisting movements in all extremities. Reflexes: Brisk biceps, brachioradialis, patella r, and achilles reflexes bilaterally. Toes are equivocal. 1-2 beats of cl onus bilaterally. Sensory: He is moving all extremities to light t ouch. Coordination: Unable to assess. The patient does not follow full exam. Station/Gait: Deferred. SUMMARY OF PERTINENT INVESTIGATIONS Labs: Collection DT Spec WBC HGB HCT PLT MCV NEUT LYMP HS 05/07/2022 05:30 BLOOD 20.25 H 11.2 L 33.6 L 190 94.9 93.0 4.0 05/06/2022 10:00 BLOOD 18.82 H 11.6 L 35.0 L 209 94.6 97.0 1.5 04/30/2022 09:17 BLOOD 10.40 12.3 L 37.8 L 286 9 5.5 02/02/2022 11:29 BLOOD 9.18 13.1 L 40.9 L 284 93 .4 09/20/2021 06:38 BLOOD 9.17 12.0 L 37.9 L 298 90 .0 06/21/2021 06:43 BLOOD 6.71 10.8 L 34.7 L 249 94 .3 UREA NITROGEN 25 (05/07/22) CREATININE 1.2 (05/07/22) GLUCOSE 314 H (05/07/22) SODIUM 140 (05/07/22) CHLORIDE 107 (05/07/22) POTASSIUM 3.9 (05/07/22) CO2 21 L (05/07/22) UCx 05/06/2022: pending Bcx 05/06/2022: GPC in 3/4 bottles Bcx 05/07/2022: pending Imaging: Head CT without contrast 05/06/2022: Impression: -Significantly limited exam from motion artifac t. -Given this limitation, no acute intracranial C T findings. IMPRESSION This is a an 86-year-old vet kathia with heart disease and CKD 3 who is being seen in for evaluation of fever, bacteremia, severe back pain, and report of seizure activity. His neurologic examination is notable for full s trength, mild clonus in the lower extremities, and brisk reflexes. He also h as been febrile and reports significant lower back pain. He is alert and pooja ented, but participates in examination in a limited capacity. Stren gth and sensation appear to be intact. His UA was dirty and there is concern fo r UTI/urosepsis. However, his low back pain and bacteremia, we also are concerned of me ningitis. Therefore, we recommend treating with antibiotic s with TELEPHONE SERVICE REPRESENTATIVE dosing. Because he is going MRSA in his blood, we think it is reasonable to continue on vancomycin only for now. Please obtain brain and T- spine MRI with and without contrast to evaluate for leptomeningeal enhancement or possi ble epidural abscess. We recommend obtaining this fernando or to performing lumbar puncture in case there is an abscess. If lumbar puncture is obtained, please send CSF analyses for cell counts, protein, glucose, HSV, cultures. With regard to event that was concerning for seizure activity, the description is quite vague and may have represented seizure. Given his significant illness, he is at risk for seizures a nd we think it is reasonable to start levetiracetam 750 twice daily and obtain routine EEG. Additional recommendations pending the above res ults. RECOMMENDATIONS 1) Start TELEPHONE SERVICE REPRESENTATIVE coverage abx - since preliminary Bc x are growing GPC, okay with vancomycin at TELEPHONE SERVICE REPRESENTATIVE dosing. 2) Brain/brainstem MRI with and without contrast 3) T-spine MRI with and without contrast 4) Please obtain imaging prior to performing LP in case there is an epidural abscess. 5) If brain and T-spine MRI are unremarkable, re commend LP with the following CSF studies: cell count, protein, glucose, HSV, bacterial culture. 6) Routine EEG (neurology will order) 7) Start levetiracetam 750mg twice daily Thank you for allowing the eurology service to participate in the care of this . Please contact us with questions. The was evaluated and his care was discu ssed with the attending neurologist, Dr. Haynes. /ronni/ CASS ROSALES MD NEUROLOGY RESIDENT Signed: 05/07/2022 12:01 Receipt Acknowledged By: 05/07/2022 12:20 /ronni/ JOSIAH HAYNES Physician 05/07/2022 ADDENDUM STATUS: COMPLETED NEUROLOGY ADDENDUM BY STAFF ATTENDING: I have independently examine d and discussed the case with the resident and team. Agree with the above note and assessment and plan with the following addition: Spoke with son who was at chaz meyer's bedside- reassured him that focus of work up is to find source of infecti on and that with time and antibiotics patient should eventually improve. Pending tests- including thoracic spine mri to r ule out epidural abscess and brain mri w/ and w/o to rule out meningitis/absc ess etc. Clinically patient does not have headache, nucha l rigidty, neg brudenski and kernigs- less likely to have meningitis but he is currently bacteremic and has had 1 seizure in this settin g, likely provoked. LP can be done if imaging is not revealing a source for infection. Agree with tura for short term given possible filtering machine tender helper infection. ID to determine antibiotic coverage. EEG when able, routine. /es/ JOSIAH aRfael HAYNES Physician Signed: 05/07/2022 12:20
--- OUTSIDE RECORDS SUMMARY | 2022-05-15 09:30 | XMS_ITS | Encounter Summary ---
:1935 Author Organization [facility] rs Address [address] [place] [address] Support Name Relationship Address Phone WADE LORENZO Unavailable [address] [place] [address] WADE LORENZO Unavailable [address] [place] [address] ARACELI MARSHALL Unavailable [phone] [place] [address] ARACELI MARSHALL Unavailable [address] [place] [address] Insurance Providers: All historical and current Section Date Range: From patient's date of to the date document was created.This section includes the names of all active insurance providers for the patient. Insurance Type of Plan Start of End of Group [facility] Coverage Name Policy Policy Number ID Provider's Bales's Relationship Coverage Coverage Telephone Name to Policy Number [place]ales [place] M[place] Aug 19, [id number] EDDY [facility] (WNR) ADVANTAGE (WNR) 2016 8 [id number] [phone] [facility] 1 [place] MEDICARE M[place] Aug 19, [id number] [address] EDDY [facility] (WNR) ADVANTAGE (WNR) 2016 8 [id number] [phone] [facility] 1 Selected Encounter This section includes the information on record at [place] for the Encounter. Date/Time Encounter Type Encounter Description Reason Provider Source May 07, 2022 10:37 AM Inpatient Visit CLINICAL PHARMACY E Encounter Template Text not used by [place] Plan of Treatment: Future Appointments (+ 6 months) and Future Tests (+/- 45 days) The Plan of Treatment section includes future care activities for the [place] from [facility] [place] [facility] This section includes future appointments and future orders which are active, pending orscheduled.Future Appointments This section includes appointments that were scheduled to occur 6 months from the date of the Encounter, up to a maximum of 20 appointments. The data comes from all [place] treatment facilities. Appointment Date/Time Appointment Type Appointment Facili ty Name May 11, 2022 06:15 PM AMBULATORY - NONE [facility] Jul 23, 2022 08:00 AM AMBULATORY - NEUROLOGY [facility] Active, Pending, and Scheduled Orders This section includes a listing of several types of active, pending, and scheduled orders, including clinic medications orders, diagnostic test orders, procedure orders and consult orders; where the start date of the order is 45 days before the date of the Encounter or 45 days after the date of the Encounter. The data comes from all [place] treatment [facility]. Test Date/Time Test Type Test Details Facility Name Apr 30, 2022 08:21 Laboratory - Chemistry URINALYSIS URINE WC ON CE [facility] AM Order Apr 30, 2022 08:21 Laboratory - CULTURE & SUSCEPTIBILITY [facility] AM Microbiology Order URINE WC May 06, 2022 12:00 Laboratory - Blood ABO/RH - LAB BLOOD [facility] AM Bank Order May 06, 2022 10:11 Laboratory - Blood TYPE & SCREEN - LAB [facility] AM Bank Order BLOOD WC May 06, 2022 10:27 Pharmacy [facility] AM Medication Order May 06, 2022 10:28 [facility] AM Infusion Order May 06, 2022 10:34 [facility] AM Infusion Order May 06, 2022 10:41 [facility] AM Infusion Order May 06, 2022 12:15 [facility] PM Medication Order May 06, 2022 01:31 [facility] PM Medication Order May 06, 2022 04:49 [facility] PM Medication Order May 07, 2022 01:00 Laboratory - CULTURE & SUSCEPTIBILITY [facility] PM Microbiology Order BLOOD WC ONCE May 11, 2022 09:07 Laboratory - CULTURE & SUSCEPTIBILITY [facility] AM Microbiology Order BLOOD WC May 11, 2022 09:07 Laboratory - CULTURE & SUSCEPTIBILITY [facility] AM Microbiology Order BLOOD WC May 11, 2022 09:38 Laboratory - Chemistry EOSINOPHIL SMEAR,URINE [facility] AM Order URINE WC ONCE May 11, 2022 09:38 Laboratory - Chemistry URINALYSIS URINE WC ON CE [facility] AM Order May 11, 2022 09:38 Laboratory - Chemistry [facility]NA [facility] Order Lab Results: +/- 30 days of the encounter This section includes the Chemistry and Hematology Lab Results on record with [place] for the patient. Radiology Reports and Pathology Reports are provided separately, in subsequent sections.Lab Results This section contains the Chemistry/Hematology Results that were resulted 30 days before or 30 daysafter the date of the Encounter. Date/Time Source Result Type Result - Unit Interpretation Reference Range Comment May 11, 2022 11:13 [facility] FINGERSTICK GLUCOSE Speci men Type: BLOOD AM Comment: Mark casillas Nurse Notified Ordering Provid er: CODIE LEON Report Released Date/Time: May 11, 2022 11:53 AM Reporting [facility] [address] Performing Lab: [facility] [address] [facility] [address] FINGERSTICK GLUCOSE 367 H 70-100 May 11, 2022 07:05 [facility] BASIC METABOLIC Specimen Type: PLASMA AM PANEL+MG No comment enter ed. Ordering Provid er: OG DIAL Report Released Date/Time: May 11, 2022 04:46 AM Reporting Lab: [facility] [address] [facility] [address] Performing [facility]: [facility] [address] CREATININE 1.6 H 0.7-1.2 UREA NITROGEN 28 H 8-26 GLUCOSE 396 H 70-100 SODIUM 150 H 136-145 POTASSIUM 3.7 3.5-5.1 CHLORIDE 120 H 98-107 CO2 23 22-29 CALCIUM 8.4 8.4-10.2 MAGNESIUM 2.1 1.6-2.6 ANION GAP 7 5-15 CREAT EGFR(CKD-EPI) 42 L >60 May 11, 2022 07:05 [facility] LIVER FUNCTION TESTS Spe cimen Type: PLASMA AM No comment enter ed. Ordering Provid er: CODIE LEON Report Released Date/Time: May 11, 2022 09:08 AM Reporting Lab: [facility] [address] [facility] [address] Performing Lab: [facility] [address] [facility] [address] BILIRUBIN, TOTAL 1.6 H 0.2-1.2 ALKALINE PHOSPHATASE 102 40-150 ALT/SGPT 42 <55 AST/SGOT 30 <34 GAMMA GTP 52 <64 DIR. BILIRUBIN 1.2 H <0.5 May 11, 2022 07:05 AM [facility] CK,TOTAL Specim en Type: PLASMA No comment enter ed. Ordering Provid er: CODIE LEON Report Released Date/Time: May 11, 2022 09:08 AM Reporting Lab: [facility] [address] [facility] [address] Performing Lab: [facility] [address] [facility] [address] CK,TOTAL 16 L 39-208 May 11, 2022 07:05 AM [facility] BNP Specim en Type: PLASMA No comment enter ed. Ordering Provid er: CODIE LEON Report Released Date/Time: May 11, 2022 09:15 AM Reporting Lab: [facility] [address] [facility] [address] Performing Lab: [facility] [address] [facility] [address] BNP 59 <99 May 11, 2022 07:05 AM [facility] CBC Specim en Type: BLOOD No comment enter ed. Ordering Provid er: OG DIAL Report Released Date/Time: May 11, 2022 04:46 AM Reporting Lab: [facility] [address] [facility] [address] Performing Lab: [facility] [address] WBC 15.93 H 4.0-11.0 RBC 3.60 L 4.6-6.2 HGB 11.2 L 13.5-17.9 HCT 35.3 L 41-54 MCV 98.1 80-100 MCH 31.1 27-33 MCHC 31.7 L 32.0-37.5 PLT 231 150-400 MPV 11.2 H 7.4-10.4 RDW 15.2 H 11.5-14.5 May 11, 2022 06:14 [facility] FINGERSTICK GLUCOSE Speci men Type: BLOOD AM Comment: Mark casillas Nurse Notified Ordering Provid er: CODIE LEON Report Released Date/Time: May 11, 2022 06:42 AM Reporting Lab: [facility] [address] [facility] [address] Performing Lab: [facility] [address] [facility] [address] FINGERSTICK GLUCOSE 345 H 70-100 May 11, 2022 02:24 [facility] FINGERSTICK GLUCOSE Speci men Type: BLOOD AM Comment: Mark casillas Ordering Provid er: CODIE LEON Report Released Date/Time: May 11, 2022 02:44 AM Reporting Lab: [facility] [address] [facility] [address] Performing Lab: [facility] [address] [facility] [address] FINGERSTICK GLUCOSE 375 H 70-100 May 10, 2022 08:38 [facility] FINGERSTICK GLUCOSE Speci men Type: BLOOD PM Comment: Mark casillas Ordering Provid er: CODIE LEON Report Released Date/Time: May 11, 2022 12:31 AM Reporting Lab: [facility] [address] [facility] [address] Performing Lab: [facility] [address] [facility] [address] FINGERSTICK GLUCOSE 346 H 70-100 May 10, 2022 05:05 [facility] FINGERSTICK GLUCOSE Speci men Type: BLOOD PM Comment: Mark casillas Nurse Notified Ordering Provid er: CODIE LEON Report Released Date/Time: May 10, 2022 11:50 PM Reporting Lab: [facility] [address] [facility] [address] Performing Lab: [facility] [address] [facility] [address] FINGERSTICK GLUCOSE 245 H 70-100 May 10, 2022 02:00 [facility] VANCOMYCIN (TROUGH) Speci men Type: PLASMA PM No comment enter ed. Ordering Provid er: CODIE LEON Report Released Date/Time: May 11, 2022 01:34 AM Reporting Lab: [facility] [address] [facility] [address] Performing Lab: [facility] [address] [facility] [address] VANCOMYCIN (TROUGH) 31.8 H 10.0-15.0 May 10, 2022 [facility] BASIC METABOLIC Specimen Typ e: PLASMA 02:00 PM PANEL+MG No comment enter ed. Ordering Provid er: CODIE LEON Report Released Date/Time: May 11, 2022 01:34 AM Reporting Lab: [facility] [address] Performing Lab: [facility] [address] CREATININE 1.1 .7-1.2 UREA NITROGEN 22 8-26 GLUCOSE 279 H 70-100 SODIUM 150 H 136-145 POTASSIUM 3.2 L 3.5-5.1 CHLORIDE 116 H 98-107 CO2 23 22-29 CALCIUM 8.5 8.4-10.2 MAGNESIUM 2.0 1.6-2.6 ANION GAP 11 5-15 CREAT EGFR(CKD-EPI) 65 >60 May 10, 2022 01:20 PM [facility] CBC & DIFF Specim en Type: BLOOD Comment: Automa nola Differential Performed Ordering Provid er: MD ESTEBAN Report Released Date/Time: May 10, 2022 08:52 PM Reporting Lab: [facility] [address] Performing Lab: [facility] [address] WBC 16.24 H 4.0-11.0 RBC 3.76 L [...] 0.28 H 0-0.1 May 10, 2022 11:07 [facility] FINGERSTICK GLUCOSE Speci men Type: BLOOD AM Comment: Mark casillas Nurse Notified Ordering Provid er: CODIE LEON Report Released Date/Time: May 11, 2022 12:31 AM Reporting Lab: [facility] [address] [facility] [address] Performing Lab: [facility] [address] [facility] [address] FINGERSTICK GLUCOSE 253 H 70-100 May 10, 2022 06:16 [facility] FINGERSTICK GLUCOSE Speci men Type: BLOOD AM Comment: Mark casillas Nurse Notified Ordering Provid er: CODIE LEON Report Released Date/Time: May 10, 2022 11:50 PM Reporting Lab: [facility] [address] [facility] [address] Performing Lab: [facility] [address] [facility] [address] FINGERSTICK GLUCOSE 271 H 70-100 May 09, 2022 09:07 [facility] FINGERSTICK GLUCOSE Speci men Type: BLOOD PM Comment: Mark casillas Ordering Provid er: CODIE LEON Report Released Date/Time: May 10, 2022 11:50 PM Reporting Lab: [facility] [address] [facility] [address] Performing Lab: [facility] [address] [facility] [address] FINGERSTICK GLUCOSE 209 H 70-100 May 09, 2022 05:33 [facility] FINGERSTICK GLUCOSE Speci men Type: BLOOD PM Comment: Mark casillas Nurse Notified Ordering Provid er: CODIE LEON Report Released Date/Time: May 09, 2022 05:53 PM Reporting Lab: [facility] [address] [facility] [address] Performing Lab: [facility] [address] [facility] [address] FINGERSTICK GLUCOSE 251 H 70-100 May 09, 2022 02:09 [facility] VANCOMYCIN (PEAK) Specime n Type: SERUM PM No comment enter ed. Ordering Provid er: AMARIS DE JESUS Report Released Date/Time: May 09, 2022 09:33 AM Reporting Lab: [facility] [address] [facility] [address] Performing Lab: [facility] [address] [facility] [address] VANCOMYCIN (PEAK) 24.2 20.0-40.0 May 09, 2022 11:19 [facility] FINGERSTICK GLUCOSE Speci men Type: BLOOD AM Comment: Mark casillas Nurse Notified Ordering Provid er: CODIE LEON Report Released Date/Time: May 09, 2022 11:38 AM Reporting Lab: [facility] [address] Performing Lab: [facility] [address] FINGERSTICK GLUCOSE 240 H 70-100 May 09, 2022 08:13 [facility] VANCOMYCIN (TROUGH) Speci men Type: SERUM AM No comment enter ed. Ordering Provid er: AMARIS DE JESUS Report Released Date/Time: May 08, 2022 11:14 AM Reporting Lab: [facility] [address] [facility] [address] Performing Lab: [facility] [address] VANCOMYCIN (TROUGH) 16.1 H 10.0-15.0 May 09, 2022 05:33 AM [facility] CBC & DIFF Specim en Type: BLOOD Comment: Automa nola Differential Performed Ordering Provid er: CODIE LEON Report Released Date/Time: May 08, 2022 05:27 PM Reporting Lab: [facility] [address] Performing Lab: [facility] [address] WBC 14.92 H 4.0-11.0 RBC 3.41 L [...] GRAN 0.16 H 0-0.1 May 09, 2022 [facility] COMPREHENSIVE METABOLIC Spec imen Type: PLASMA 05:32 AM PANEL+MG No comment enter ed. Ordering Provid er: CODIE LEON Report Released Date/Time: May 08, 2022 05:27 PM Reporting Lab: [facility] [address] [facility] [address] Performing Lab: [facility] [address] [facility] [address] CREATININE 1.2 0.7-1.2 UREA NITROGEN 25 8-26 [...] 59 L >60 May 09, 2022 05:16 [facility] FINGERSTICK GLUCOSE Speci men Type: BLOOD AM Comment: Mark casillas Nurse Notified Ordering Provid er: CODIE LEON Report Released Date/Time: May 09, 2022 07:27 AM Reporting Lab: [facility] [address] Per[facility]: [facility] [address] FINGERSTICK GLUCOSE 295 H 70-100 May 08, 2022 09:32 PM [facility] EXTRA MINT TUBE Specim en Type: PLASMA No comment enter ed. Ordering Provid er: MD ESTEBAN Report Released Date/Time: May 08, 2022 09:32 PM Reporting Lab: [facility] [address] [facility] [address] Performing Lab: [facility] [address] EXTRA MINT TUBE RECEIVED May 08, 2022 09:32 PM [facility] EXTRA PURPLE TUBE Spec imen Type: BLOOD No comment enter ed. Ordering Provid er: MD ESTEBAN Report Released Date/Time: May 08, 2022 09:32 PM Reporting Lab: [facility] [address] [facility] [address] Performing Lab: [facility] [address] EXTRA PURPLE TUBE RECEIVED May 08, 2022 09:32 [facility] EXTRA GOLD GEL TUBE Speci men Type: SERUM PM No comment enter ed. Ordering Provid er: MD ESTEBAN Report Released Date/Time: May 08, 2022 09:32 PM Reporting Lab: [facility] [address] [facility] [address] Performing Lab: [facility] [address] [facility] [address] EXTRA GOLD GEL TUBE RECEIVED May 08, 2022 09:32 PM [facility] EXTRA BLUE TUBE Specim en Type: PLASMA No comment enter ed. Ordering Provid er: MD ESTEBAN Report Released Date/Time: May 08, 2022 09:32 PM Reporting Lab: [facility] [address] [facility] [address] Performing Lab: [facility] [address] [facility] [address] EXTRA BLUE TUBE RECEIVED May 08, 2022 09:32 PM [facility] LACTIC ACID Specim en Type: PLASMA No comment enter ed. Ordering Provid er: OG DIAL Report Released Date/Time: May 08, 2022 09:49 PM Reporting Lab: [facility] [address] [facility] [address] Performing Lab: [facility] [address] [facility] [address] LACTIC ACID 2.5 H 0.5-2.2 May 08, 2022 09:32 PM [facility] BNP Specim en Type: PLASMA No comment enter ed. Ordering Provid er: OG DIAL Report Released Date/Time: May 08, 2022 09:50 PM Reporting Lab: [facility] [address] [facility] [address] Performing Lab: [facility] [address] [facility] [address] BNP 897 H <99 May 08, 2022 09:32 PM [facility] EXTRA BRASWELL TUBE Specim en Type: PLASMA No comment enter ed. Ordering Provid er: MD ESTEBAN Report Released Date/Time: May 08, 2022 09:37 PM Reporting Lab: [facility] [address] [facility] [address] Performing Lab: [facility] [address] [facility] [address] EXTRA BRASWELL TUBE RECEIVED May 08, 2022 09:32 PM [facility] CBC Specim en Type: BLOOD No comment enter ed. Ordering Provid er: OG DIAL Report Released Date/Time: May 08, 2022 09:50 PM Reporting Lab: [facility] [address] [facility] [address] Performing Lab: [facility] [address] WBC 18.54 H 4.0-11.0 RBC 3.68 L 4.6-6.2 HGB 11.5 L 13.5-17.9 HCT 35.1 L 41-54 MCV 95.4 80-100 MCH 31.3 27-33 MCHC 32.8 32.0-37.5 PLT 221 150-400 MPV 11.1 H 7.4-10.4 RDW 14.9 H 11.5-14.5 May 08, 2022 [facility] COMPREHENSIVE METABOLIC Spec imen Type: PLASMA 09:32 PM PANEL+MG No comment enter ed. Ordering Provid er: OG DIAL Report Released Date/Time: May 08, 2022 09:50 PM Reporting Lab: [facility] [address] Performing Lab: [facility] [address] CREATININE 1.3 H 0.7-1.2 UREA NITROGEN 26 [...] L >60 May 08, 2022 09:32 PM [facility] BLOOD GASES Specim en Type: VENOUS BLOOD Comment: O2 THE RAPY = 3L PM Ordering Provid er: OG DIAL Report Released Date/Time: May 08, 2022 09:50 PM Reporting Lab: [facility] [address] Performing Lab: [facility] [address] PH 7.36 7.33-7.43 PCO2 47 41-51 BICARBONATE 24.4 21.0-30.0 PO2 31 L 35-40 OXYGEN SATURATION 54.7 L 70.0-75.0 PH(TEMP CORRECTED) 7.37 7.33-7.43 PCO2(TEMP CORRECTED) 46 41-51 PO2(TEMP CORRECTED) 31 L 35-40 PATIENT TEMPERATURE 36.7 May 08, 2022 08:27 [facility] FINGERSTICK GLUCOSE Speci men Type: BLOOD PM Comment: Mark casillas Nurse Notified Ordering Provid er: CODIE LEON Report Released Date/Time: May 08, 2022 08:55 PM Reporting Lab: [facility] [address] [facility] [address] Performing Lab: [facility] [address] [facility] [address] FINGERSTICK GLUCOSE 272 H 70-100 May 08, 2022 06:56 [facility] FINGERSTICK GLUCOSE Speci men Type: BLOOD PM Comment: Mark casillas Ordering Provid er: CODIE LEON Report Released Date/Time: May 08, 2022 07:08 PM Reporting Lab: [facility] [address] [facility] [address] Performing Lab: [facility] [address] [facility] [address] FINGERSTICK GLUCOSE 262 H 70-100 May 08, 2022 04:50 [facility] FINGERSTICK GLUCOSE Speci men Type: BLOOD PM Comment: Nurse Notified Ordering Provid er: CODIE LEON Report Released Date/Time: May 08, 2022 05:14 PM Reporting Lab: [facility] [address] [facility] [address] Performing Lab: [facility] [address] [facility] [address] FINGERSTICK GLUCOSE 330 H 70-100 May 08, 2022 11:21 [facility] FINGERSTICK GLUCOSE Speci men Type: BLOOD AM Comment: Mark casillas Nurse Notified Ordering Provid er: CODIE LEON Report Released Date/Time: May 08, 2022 11:51 AM Reporting Lab: [facility] [address] [facility] [address] Performing Lab: [facility] [address] [facility] [address] FINGERSTICK GLUCOSE 231 H 70-100 May 08, 2022 07:25 AM [facility] CBC & DIFF Specim en Type: BLOOD Comment: Automa nola Differential Performed Ordering Provid er: BETO AYALA Report Released Date/Time: May 07, 2022 12:28 PM Reporting Lab: [facility] [address] Performing Lab: [facility] [address] [facility] [address] WBC 16.29 H 4.0-11.0 RBC 3.38 L [...] GRAN 0.26 H 0-0.1 May 08, 2022 [facility] PROTHROMBIN TIME/INR Specime n Type: PLASMA 07:25 AM No comment enter ed. Ordering Provid er: BETO AYALA Report Released Date/Time: May 07, 2022 12:28 PM Reporting Lab: [facility] [address] [facility] [address] Performing Lab: [facility] [address] .INR 1.2 H 0.8-1.1 .PT 14.2 H 9.4-12.5 May 08, 2022 [facility] COMPREHENSIVE METABOLIC Spec imen Type: PLASMA 07:25 AM PANEL+MG No comment enter ed. Ordering Provid er: BETO AYALA Report Released Date/Time: May 07, 2022 12:28 PM Reporting Lab: [facility] [address] [facility] [address] Performing Lab: [facility] [address] CREATININE 1.1 0.7-1.2 UREA NITROGEN 27 H [...] EGFR(CKD-EPI) 65 >60 May 08, 2022 06:53 [facility] FINGERSTICK GLUCOSE Speci men Type: BLOOD AM Comment: Mark casillas Ordering Provid er: CODIE LEON Report Released Date/Time: May 08, 2022 07:18 AM Reporting Lab: [facility] [address] [facility] [address] Performing Lab: [facility] [address] FINGERSTICK GLUCOSE 276 H 70-100 May 07, 2022 08:36 [facility] FINGERSTICK GLUCOSE Speci men Type: BLOOD PM Comment: Nurse Notified Ordering Provid er: CODIE LEON Report Released Date/Time: May 08, 2022 12:29 AM Reporting Lab: [facility] [address] [facility] [address] Performing Lab: [facility] [address] [facility] [address] FINGERSTICK GLUCOSE 282 H 70-100 May 07, 2022 07:04 PM [facility] LACTIC ACID Specim en Type: PLASMA No comment enter ed. Ordering Provid er: BETO AYALA Report Released Date/Time: May 07, 2022 06:28 PM Reporting Lab: [facility] [address] [facility] [address] Performing Lab: [facility] [address] [facility] [address] LACTIC ACID 2.0 0.5-2.2 May 07, 2022 04:46 [facility] FINGERSTICK GLUCOSE Speci men Type: BLOOD PM Comment: Nurse Notified Ordering Provid er: BETO AYALA Report Released Date/Time: May 07, 2022 05:00 PM Reporting Lab: [facility] [address] [facility] [address] Performing Lab: [facility] [address] [facility] [address] FINGERSTICK GLUCOSE 274 H 70-100 May 07, 2022 12:47 [facility] FINGERSTICK GLUCOSE Speci men Type: BLOOD PM Comment: Mark casillas Nurse Notified Ordering Provid er: BETO AYALA Report Released Date/Time: May 07, 2022 05:32 PM Reporting Lab: [facility] [address] [facility] [address] Performing Lab: [facility] [address] [facility] [address] FINGERSTICK GLUCOSE 309 H 70-100 May 07, 2022 06:35 [facility] FINGERSTICK GLUCOSE Speci men Type: BLOOD AM Comment: Mark casillas Nurse Notified Ordering Provid er: GAYLA DOMINGUEZ Report Released Date/Time: May 07, 2022 06:46 AM Reporting Lab: [facility] [address] [facility] [address] Performing Lab: [facility] [address] [facility] [address] FINGERSTICK GLUCOSE 352 H 70-100 May 07, 2022 06:15 AM [facility] ALBUMIN Specim en Type: PLASMA No comment enter ed. Ordering Provid er: GAYLA DOMINGUEZ Report Released Date/Time: May 06, 2022 06:33 PM Reporting Lab: [facility] [address] [facility] [address] Performing Lab: [facility] [address] [facility] [address] ALBUMIN 3.0 L 3.5-5.2 May 07, 2022 [facility] COMPREHENSIVE METABOLIC Spec imen Type: PLASMA 06:15 AM PANEL+MG No comment enter ed. Ordering Provid er: GAYLA DOMINGUEZ Report Released Date/Time: May 06, 2022 09:11 PM Reporting Lab: [facility] [address] [facility] [address] Performing Lab: [facility] [address] [facility] [address] CREATININE 1.2 0.7-1.2 UREA NITROGEN 25 8-26 [...] L >60 May 07, 2022 06:15 AM [facility] CBC & DIFF Specim en Type: BLOOD Comment: Manual Differential Performed Ordering Provid er: GAYLA DOMINGUEZ Report Released Date/Time: May 06, 2022 09:11 PM Reporting Lab: [facility] [address] [facility] [address] Performing Lab: [facility] [address] [facility] [address] WBC 20.25 H 4.0-11.0 RBC 3.54 L [...] NORMOCYTIC, NORMOCHROMIC May 07, 2022 12:19 AM [facility] LACTIC ACID Specim en Type: PLASMA No comment enter ed. Ordering Provid er: GAYLA DOMINGEUZ Report Released Date/Time: May 06, 2022 07:13 PM Reporting Lab: [facility] [address] [facility] [address] Performing Lab: [facility] [address] [facility] [address] LACTIC ACID 2.7 H 0.5-2.2 May 06, 2022 10:45 [facility] FINGERSTICK GLUCOSE Speci men Type: BLOOD PM Comment: Mark casillas Nurse Notified Ordering Provid er: GAYLA DOMINGUEZ Report Released Date/Time: May 07, 2022 12:08 AM Reporting Lab: [facility] [address] [facility] [address] Performing Lab: [facility] [address] [facility] [address] FINGERSTICK GLUCOSE 320 H 70-100 May 06, 2022 06:53 [facility] MRSA SURVL NARES Specimen Type: NARES PM DNA No comment enter ed. Ordering Provid er: GYALA DOMINGUEZ Report Released Date/Time: May 06, 2022 06:33 PM Reporting Lab: [facility] [address] [facility] [address] Performing Lab: [facility] [address] [facility] [address] MRSA SURVL NARES DNA POSITIVE HH Negative May 06, 2022 06:51 [facility] CARDIAC TROPONIN I Specim en Type: PLASMA PM No comment enter ed. Ordering Provid er: GAYLA DOMINGUEZ Report Released Date/Time: May 06, 2022 06:05 PM Reporting Lab: [facility] [address] [facility] [address] Performing Lab: [facility] [address] [facility] [address] CARDIAC TROPONIN I <0.028 <0.028 May 06, 2022 06:51 PM [facility] LACTIC ACID Specim en Type: PLASMA No comment enter ed. Ordering Provid er: GAYLA DOMINGUEZ Report Released Date/Time: May 06, 2022 06:04 PM Reporting Lab: [facility] [address] [facility] [address] Performing Lab: [facility] [address] [facility] [address] LACTIC ACID 3.1 H 0.5-2.2 May 06, 2022 06:51 [facility] EXTRA GOLD GEL TUBE Speci men Type: SERUM PM No comment enter ed. Ordering Provid er: GAYLA DOMINGUEZ Report Released Date/Time: May 06, 2022 06:52 PM Reporting Lab: [facility] [address] [facility] [address] Performing Lab: [facility] [address] [facility] [address] EXTRA GOLD GEL TUBE RECEIVED May 06, 2022 06:51 [facility] C-REACTIVE PROTEIN Specim en Type: PLASMA PM No comment enter ed. Ordering Provid er: GAYLA DOMINGUEZ Report Released Date/Time: May 06, 2022 09:29 PM Reporting Lab: [facility] [address] [facility] [address] Performing Lab: [facility] [address] C-REACTIVE PROTEIN 392.40 H <5.00 May 06, 2022 10:51 AM [facility] URINALYSIS Specim en Type: URINE No comment enter ed. Ordering Provid er: MODESTA VILLANUEVA Report Released Date/Time: May 06, 2022 10:11 AM Reporting Lab: [facility] [address] Performing Lab: [facility] [address] URINE COLOR YELLOW SPECIFIC GRAVITY 1.020 1.003-1.035 [...] ESTERASE 500 NEGATIVE May 06, 2022 10:24 [facility] COVID-19 DIAGNOSTIC Speci men Type: NASOPHARYNGEAL AM PANEL (CEPHEID) Comment: Cephei d GeneXpert (618) Ordering Provid er: MODESTA VILLANUEVA Report Released Date/Time: May 06, 2022 10:11 AM Reporting Lab: [facility] [address] Performing Lab: [facility] [address] COVID-19 (CEPHEID) Not Detected Not Dete cted May 06, 2022 10:20 AM [facility] POC ABG/LACTATE Specim en Type: VENOUS BLOOD No comment enter ed. Ordering Provid er: MODESTA VILLANUEVA Report Released Date/Time: May 06, 2022 10:22 AM Reporting Lab: [facility] [address] Performing Lab: [facility] [address] POC PH 7.410 7.31-7.41 POC PCO2 28.9 L 35.00-45.00 POC PO2 82 H 35.0-40.0 POC TCO2 19 L 24.0-29.0 POC HCO3 18.3 L 23.0-28.0 POC BE ECT -6 L -2 POC SO2 96 H 70-75 POC LACTATE 3.62 0.90-1.70 May 06, 2022 10:00 AM [facility] PHOSPHORUS Specim en Type: PLASMA No comment enter ed. Ordering Provid er: MODESTA VILLANUEVA Report Released Date/Time: May 06, 2022 10:11 AM Reporting Lab: [facility] [address] [facility] [address] Performing Lab: [facility] [address] [facility] [address] PHOSPHORUS 2.5 2.3-4.7 May 06, 2022 10:00 [facility] PROTHROMBIN TIME/INR Spec imen Type: PLASMA AM No comment enter ed. Ordering Provid er: MODESTA VILLANUEVA Report Released Date/Time: May 06, 2022 10:11 AM Reporting Lab: [facility] [address] [facility] [address] Performing Lab: [facility] [address] [facility] [address] .INR 2.5 H 0.8-1.1 .PT 29.2 H 9.4-12.5 May 06, 2022 10:00 [facility] ACT PART THROMBO TIME Spe cimen Type: PLASMA AM No comment enter ed. Ordering Provid er: MODESTA VILLANUEVA Report Released Date/Time: May 06, 2022 10:11 AM Reporting Lab: [facility] [address] [facility] [address] Performing Lab: [facility] [address] [facility] [address] APTT 37.8 H 25.1-36.5 May 06, 2022 10:00 AM [facility] PROCALCITONIN Specim en Type: PLASMA No comment enter ed. Ordering Provid er: MODESTA VILLANUEVA Report Released Date/Time: May 06, 2022 10:11 AM Reporting Lab: [facility] [address] [facility] [address] Performing Lab: [facility] [address] [facility] [address] PROCALCITONIN 22.29 H <0.09 May 06, 2022 [facility] COMPREHENSIVE METABOLIC Spec imen Type: PLASMA 10:00 AM PANEL+MG Comment: Manual Differential Performed Ordering Provid er: MODESTA VILLANUEVA Report Released Date/Time: May 06, 2022 10:11 AM Reporting Lab: [facility] [address] [facility] [address] Performing Lab: [facility] [address] [facility] [address] CREATININE 1.3 H 0.7-1.2 UREA NITROGEN 25 [...] 54 L >60 May 06, 2022 10:00 [facility] CARDIAC TROPONIN I Specim en Type: PLASMA AM Comment: Critic al Value Reported To: BROOKS COTE 05-06-2022 @1053 BY MBB. Critical value report confirmed. Ordering Provid er: MODESTA VILLANUEVA Report Released Date/Time: May 06, 2022 10:11 AM Reporting Lab: [facility] [address] [facility] [address] Performing Lab: [facility] [address] [facility] [address] CARDIAC TROPONIN I 0.035 HH <0.028 May 06, 2022 10:00 AM [facility] LIPASE Specim en Type: PLASMA No comment enter ed. Ordering Provid er: MODESTA VILLANUEVA Report Released Date/Time: May 06, 2022 10:11 AM Reporting Lab: [facility] [address] [facility] [address] Performing Lab: [facility] [address] [facility] [address] LIPASE <4 <60 May 06, 2022 10:00 [facility] EXTRA GOLD GEL TUBE Speci men Type: SERUM AM No comment enter ed. Ordering Provid er: LINNEA RAND Report Released Date/Time: May 06, 2022 10:25 AM Reporting Lab: [facility] [address] [facility] [address] Performing Lab: [facility] [address] [facility] [address] EXTRA GOLD GEL TUBE RECEIVED May 06, 2022 10:00 AM [facility] CBC & DIFF Specim en Type: BLOOD Comment: Manual Differential Performed Ordering Provid er: MODESTA VILLANUEVA Report Released Date/Time: May 06, 2022 10:11 AM Reporting Lab: [facility] [address] Performing Lab: [facility] [address] WBC 18.82 H 4.0-11.0 RBC 3.70 L [...] .RBC MORPHOLOGY PRESENT May 06, 2022 09:46 [facility] FINGERSTICK GLUCOSE Speci men Type: BLOOD AM Comment: Mark casillas Nurse Notified Ordering Provid er: MODESTA VILLANUEVA Report Released Date/Time: May 06, 2022 09:59 AM Reporting Lab: [facility] [address] Performing Lab: [facility] [address] FINGERSTICK GLUCOSE 369 H 70-100 Apr 30, 2022 [facility] BASIC METABOLIC Specimen Typ e: PLASMA 09:17 AM PANEL+MG No comment enter ed. Ordering Provid er: BILL ROONEY Report Released Date/Time: Apr 30, 2022 08:21 AM Reporting Lab: [facility] [address] Performing Lab: [facility] [address] CREATININE 1.2 0.7-1.2 UREA NITROGEN 26 8-26 GLUCOSE 140 H 70-100 SODIUM 138 136-145 POTASSIUM 3.8 3.5-5.1 CHLORIDE 107 98-107 CO2 20 L 22-29 CALCIUM 9.4 8.4-10.2 MAGNESIUM 1.7 1.6-2.6 ANION GAP 11 5-15 CREAT EGFR(CKD-EPI) 59 L >60 Apr 30, 2022 09:17 AM [facility] CBC Specim en Type: BLOOD No comment enter ed. Ordering Provid er: BILL ROONEY Report Released Date/Time: Apr 30, 2022 08:21 AM Reporting Lab: [facility] [address] [facility] [address] Performing Lab: [facility] [address] WBC 10.40 4.0-11.0 RBC 3.96 L 4.6-6.2 [...] Source Pressure Rate Mass Index May 07 [facility] 2021 12:14 [facility] PM [facility] May 07 [facility] 2021 04:56 [facility] AM [facility] May 07 [place] 2021 03:23 [facility] May 07 266.76 35 [place] 2021 12:15 lb [facility] Social History: Smoking Status (Most current) and Tobacco Use (All prior to encounter date) This section includes the most current, and the historical, smoking and tobacco-related health factors from the [facility] where the Encounter took place.Current Smoking Status This section includes the most current smoking, or tobacco-related health factor, from the [place] facility where the Encounter took place. Date/Time Current Smoking Status Comment Facility Feb 02, 2022 09:30 AM [place] US[place] [facility] Tobacco Use History This section includes a history of the smoking, or tobacco- related health factors, that were collected on or before the date of the Encounter. The data comes from the [place] facility where the Encounter took place. Date/Time Smoking Status/Tobacco Use Comment [facility] Mar 22, 2021 07:45 AM [place]-TO[place]CO [place] [facility] Oct 02, 2019 10:02 AM [place] [facility] May 21, 2018 09:05 AM [place] [facility] December 25, 2017 06:14 PM INPT NO TOBACCO USE IN LAST 30 DAYS [facility] Oct 01, 2017 07:34 AM LIFETIME NON-TOBACCO USER [facility] Sep 28, 2016 08:44 AM LIFETIME NON-TOBACCO USER [facility] Oct 14, 2015 07:52 AM LIFETIME NON-TOBACCO USER [facility] Oct 11, 2014 07:59 AM LIFETIME NON-TOBACCO USER [facility] January 15, 2007 07:55 AM LIFETIME NON-TOBACCO USER [facility] Advance Directives: All historical and current Section Date Range: From patient's date of to the date document was created. This section includes ALL of a patient's completed or amended [place] Advance and Rescinded Directives. The entries below indicate that a directive exists for the patient, but an actual copy is not included with this document. The data comes from all [facility]. Date Advance Directives Provider Source Apr 18, 2018 ADVANCE DIRECTIVE JOVONLARISSA [facility] Apr 18, 2018 ADVANCE DIRECTIVE DISCUSSION LARISSA SIGALA [facility] December 23, 2017 CLINICAL WARNING FARHAT SCHMID [facility] May 11, 2003 ADVANCE DIRECTIVE BERT CASILLAS [facility] Radiology Reports: +/- 30 days of [...] the Encounter. The data comes from all [place] treatment facilities. Date/Time Radiology Report Provider Source May 11, 2022 09:46 CHEST 1 VIEW: SONJA OVALLES [facility] AM NUNU,LUISANA H [id number] -1935 M Exm Date: MAY 11, 2022@09:46 Req Phys: CODIE LEON Loc: OP Unknown /05-13-2022@05:05 Img Loc: MAIN X-RAY Service: PRIMARY [facility] OFFICE (Case [id number] COMPLETE) CHEST 1 VIEW (RAD Detailed) CPT:07552 Proc Modifiers : PORTABLE EXAM Reason for [...] 11, 2022 Date Verified: MAY 11, 2022 Time Study Analyst E-Sig:/ES/SONJA OVALLES MD Report: CHEST 1 [...] Primary Interpreting Staff: SONJA OVALLES MD, RADIOLOGIST (Time Study Analyst) /CDC May 10, 2022 03:49 CT HEAD (P): RADIOLOGY,OUTSIDE [facility] PM LUISANA EDDY [id number] -1935 M SERVICE Exm Date: MAY 10, 2022@15:49 Req Phys: CODIE LEON Loc: OP Unknown /05-13-2022@05:05 Img Loc: CT IMAGING Service: [facility] OFFICE (Case [id number] COMPLETE) CT HEAD/BRAIN W/O CONTRAST (CT Detailed) CPT:64820 Reason for Study: CHANGE IN MENTAL STATUS Clinical History: CHANGE IN MENTAL STATUS. ORDER ADMINISTRATIVELY ENTERED FOLLOWING SYSTEM OUTAGE. Report Status: Verified Date Reported: MAY 10, 2022 Date Verified: MAY 10, 2022 Time Study Analyst E-Sig: Report: CT HEAD/BRAIN W/O CONTRAST [PRINTSET] HISTORY: Change in mental status. COMPARISON: CT from 05/07/2022. TECHNIQUE: Contiguous axial CT images from the level of the skull base through the skull apex, with coronal and s agittal reformats, performed at the local [place] facility. 321 images [place] received by the [place] National Teleradiology Program (NTP) for interpretation. RADIATION [...] study. READING PHYSICIAN: Akash Mccoy M.D. -[phone] 05/10/2022 17:35 PDT [facility] National Teleradiology Program [phone] (For Medical Practitioner Use Only ) Attention Patients / Veterans: If you have ques tions or concerns about these test results, please contact [facility] provider or primary care team. Primary Interpreting Staff: RADIOLOGY,OUTSIDE SERVICE, Staff Physician / May 08, 2022 07:45 CT T-SPINE (P): RADIOLOGY,OUTSIDE [facility] PM LUISANA EDDY [id number] -1935 M SERVICE Exm Date: MAY 08, 2022@19:45 Req Phys: CODIE LEON Chantal Loc: OP Unknown /05-13-2022@05:05 Img Loc: CT IMAGING Service: PRIMARY CARE - MED OFFICE (Case [id number] COMPLETE) CT SPINE THORACIC W/O CONTR AST (CT Detailed) CPT:33502 Reason for Study: mrsa bacteremia, spinal surge ry - r/o abscess or discitis Clinical History: [place] IS NOT under investigation for COVID-19 or is COVID-19 negative Defer to radiologist for final CT protocol. Responsible provider name and phone number to n otify for critical findings if other than user placing the order a nd pager listed below: User placing orders pager: [phone] LAST 3: Collection DT Specimen Test Name [...] GFR (eGF 44 L Ref: >=60 Allergies: ([place] only) SIMVASTATIN (Feb 29, 2004) CEPHALEXIN (Mar 01, 2004) Report Status: Verified Date Reported: MAY 08, 2022 Date Verified: MAY 08, 2022 Time Study Analyst E-Sig: Report: CT SPINE THORACIC W/O CONTRAST [PRINTSET] HISTORY:MRSA bacteremia NUMBER OF IMAGES:1151 COMPARISON: Correlation with images from recent CT abdomen and pelvis May 06, 2022 TECHNIQUE: A non contrast CT of the thoracic sp ine was performed [place] the local [place] Images were subsequently sent to NTP for interpretation. Axial, coronal and sagittal reformats [...] thoracic level. READING PHYSICIAN: Luisana Webb MD -[phone] 05/08/2022 19:20 PDT [facility] National Teleradiology Program [phone] (For Medical Practitioner Use Only ) Attention Patients / Veterans: If you have ques tions or concerns about these test results, please contact your [facility] provider or primary care team. Primary Interpreting Staff: RADIOLOGY,OUTSIDE SERVICE, Staff Physician / May 08, 2022 04:48 CHEST 1 VIEW: RADIOLOGY,OUTSIDE [facility] PM LUISANA EDDY [id number] -1935 M SERVICE Exm Date: MAY 08, 2022@16:48 Req Phys: CODIE LEON Loc: OP Unknown /05-13-2022@05:05 Img Loc: MAIN X-RAY Service: PRIMARY CARE - MED OFFICE (Case [id number] COMPLETE) CHEST 1 VIEW (RAD Detailed) CPT:67381 Proc Modifiers : PORTABLE EXAM Reason for Study: dyspnea Clinical History: IS NOT under investigation for COVID-19 or is COVID-19 negative acute worsening of dyspnea Responsible provider name and phone number to notify for critical findings if other than user placing the order and pager listed below: User placing orders pager: [phone] malini cell [phone] LAST CREATININE 1.1 (05/08/22) Report Status: Verified Date Reported: MAY 08, 2022 Date Verified: MAY 08, 2022 Time Study Analyst E-Sig: Report: CHEST 1 VIEW HISTORY: dyspnea COMPARISON: 05/06/2022 TECHNIQUE: Frontal view(s) of the chest, [place]ola to the [place] National Teleradiology Program (NTP) for interp retation. FINDINGS: Reduced lung volumes. Progressive cardiomegaly, and vascular congestion as well as diffuse interstitial prom inence with probable small effusions. Impression: Expiratory exam with findings of CHF and mild e santa READING PHYSICIAN: Nghia Menjivar M.D. -[id number] 10 05/08/2022 18:57 EDT [facility] National Teleradiology Program [phone] (For Medical Practitioner Use Only ) Attention Patients / Veterans: If you have ques tions or concerns about these test results, please contact your o rdering provider or primary care team. Primary Interpreting Staff: RADIOLOGY,OUTSIDE SERVICE, Staff Physician / May 07, 2022 10:29 CT HEAD (P): SHANI POLANCO [facility] AM LUISANA EDDY [id number] -1935 M Exm Date: MAY 07, 2022@10:29 Req Phys: BEOT AYALA Loc: OP Unknown/0 05-13-2022@05:05 Img Loc: CT IMAGING Service: PRIMARY CARE - MED OFFICE (Case [id number] COMPLETE) CT HEAD/BRAIN W/O CONTRAST ( CT Detailed) CPT:63464 Reason for Study: seizure noted at [facility] Clinical History: IS NOT under investigation for COVID-19 or is COVID-19 negative Defer to radiologist for final CT protocol. Responsible provider name and phone number to n otify for critical findings if other than user placing the order a nd pager listed below: User placing orders pager: [phone] LAST 3: Collection DT Specimen Test Name [...] GFR (eGF 44 L Ref: >=60 Allergies: ([place] only) SIMVASTATIN (Feb 29, 2004) CEPHALEXIN (Mar 01, 2004) Report Status: Verified Date Reported: MAY 07, 2022 Date Verified: MAY 07, 2022 Time Study Analyst E-Sig:/ES/SHANI POLANCO MD Report: EXAM: CT [...] lis nola below: User placing orders pager: [phone] LAST 3: Collecti on DT Specimen Test [...] Primary Interpreting Staff: SHANI POLANCO MD, RADIOLOGIST (Time Study Analyst) /Javed May 06, 2022 11:40 CHEST 1 VIEW: RADIOLOGY,OUTSIDE [facility] AM LUISANA EDDY [id number] -1935 M SERVICE Exm Date: MAY 06, 2022@11:40 Req Phys: MODESTA VILLANUEVA Loc: [facility] EMERGENCY DEPT WALK-IN (Re Img Loc: MAIN X-RAY Service: Unknown (Case [id number] COMPLETE) CHEST 1 VIEW (RAD Detailed) C PT:49430 Proc Modifiers : PORTABLE EXAM Reason for Study: fever, back pain Clinical History: Reason for Exam: Severe Sepsis Pathway to Evalu ate Volume Status and Source of Sepsis [place] IS under investigation (PUI) for COVID- 19 or is COVID-19+ 86 yo M with fever, back pain Responsible provi violeta name and phone number to notify for critical findings if other than user placing the order and pager listed below: User placing orders pager: [phone] LAST CREATININE 1.2 (04/30/22) Report Status: Verified Date Reported: MAY 06, 2022 Date Verified: MAY 06, 2022 Time Study Analyst E-Sig: Report: Technique: Frontal chest. No comparison Impression: Cardiac silhouette is mildly enlarged. There is mild pulmonary venous congestion. No definite pleural effusion . No pneumothorax seen. READING PHYSICIAN: Vern Donnelly M.D. -[id number] 07 05/06/2022 13:26 EDT [facility] National Teleradiology Program [phone] (For Medical Practitioner Use Only ) Attention Patients / Veterans: If you have ques tions or concerns about these test results, please contact your o rdering provider or primary care team. Primary Interpreting Staff: RADIOLOGY,OUTSIDE SERVICE, Staff Physician / May 06, 2022 10:36 CT (AP) ABDOMEN/PELVIS (P): RADIOLOGY,OUTSIDE [facility] LUISANA EDDY [id number] -1935 M SERVICE Exm Date: MAY 06, 2022@10:36 Req Phys: MODESTA VILLANUEVA Loc: [facility] EMERGENCY DEPT WALK-IN (Re Img Loc: CT IMAGING Service: Unknown (Case [id number] COMPLETE) CT (AP) ABDOMEN/PELVIS W CONT RAST(CT Detailed) CPT:06703 Reason for Study: fever, back pain Clinical [...] pager listed below: User placing orders pager: [phone] LAST 3: Collection DT Specimen Test Name [...] ESTIMATED GFR(eGF 44 L Ref: >=60 Allergies: ([place] only) SIMVASTATIN (Feb 29, 2004) CEPHALEXIN (Mar 01, 2004) To see allergies from all [facility] locations click Re ports tab>Remote Data>All Available Sites>Clinical Reports>Aller gies. Report Status: Verified Date Reported: MAY 06, 2022 Date Verified: MAY 06, 2022 Time Study Analyst E-Sig: Report: Exam: CT (AP) ABDOMEN/PELVIS W CONTRAST [PRINTS ET] Clinical History: fever, back pain Number of images: 918 Comparison: No priors available Technique: The study was protocoled and supervi [facility] local [facility] of the abdomen and pelvis was performed afte r the uneventful administration of iodinated contrast. Images we re received by the [place] National Teleradiology Program (NTP) for interpretation. Total [...] findings, above. READING PHYSICIAN: Eduin Donaldson M.D. -[phone] 05/06/2022 12:48 [facility] National Teleradiology Program [phone] (For Medical Practitioner Use Only ) Attention Patients / Veterans: If you have ques tions or concerns about these test results, please contact [facility] provider or primary care team. Primary Interpreting Staff: RADIOLOGY,OUTSIDE SERVICE, Staff Physician / May 06, 2022 10:35 CT CERVICAL SPINE W/O CONTRAST: RADIOLOGY,OUT SIDE [facility] AM NUNULUISANA [id number] -1935 M SERVICE Exm Date: MAY 06, 2022@10:35 Req Phys: MODESTA VILLANUEVA Loc: [facility] EMERGENCY DEPT WALK-IN (Re Img Loc: CT IMAGING Service: Unknown (Case 65 COMPLETE) CT CERVICAL SPINE W/O CONTRAS T (CT Detailed) CPT:41965 Reason for Study: falls, blood thinner, AMS, se izure Clinical History: falls, blood thinner, AMS, seizure IS under investigation (PUI) for COVID- 19 or is COVID-19+ Defer to radiologist for final CT protocol. Responsible provider name and phone number to n otify for critical findings if other than user placing the order a nd pager listed below: User placing orders pager: [phone] LAST 3: Collection DT Specimen Test Name [...] ESTIMATED GFR(eGF 44 L Ref: >=60 Allergies: ([place] only) SIMVASTATIN (Feb 29, 2004) CEPHALEXIN (Mar 01, 2004) To see allergies from all [facility] locations click Re ports tab>Remote Data>All Available Sites>Clinical Reports>Aller gies. Report Status: Verified Date Reported: MAY 06, 2022 Date Verified: MAY 06, 2022 Time Study Analyst E-Sig: Report: CT CERVICAL SPINE W/O CONTRAST HISTORY:falls, blood thinner, AMS, seizure NUMBER OF IMAGES:770 COMPARISON: None available. TECHNIQUE: A non contrast CT of the cervical sp [place]e [place] [facility] sent to [facility] for interpretation. Axial, coronal and [...] 11 mm subcutaneous cyst in the [facility] upper neck. Impression: -Motion artifact limits the exam. -Given this limitation, no acute osseous abnorm ality. -Moderate multilevel degenerative change throug hout the cervical spine. -Ancillary findings, above. READING PHYSICIAN: Eduin Donaldson M.D. -[phone] 05/06/2022 12:33 [facility] National Teleradiology Program [phone] (For Medical Practitioner Use Only ) Attention Patients / Veterans: If you have ques tions or concerns about these test results, please contact your [facility] provider or primary care team. Primary Interpreting Staff: RADIOLOGY,OUTSIDE SERVICE, Staff Physician / May 06, 2022 10:35 CT HEAD/BRAIN W/O CONTRAST: RADIOLOGY,OUTSIDE [facility] AM LUISANA EDDY [id number] -[phone] M SERVICE Exm Date: MAY 06, 2022@10:35 Req Phys: MODESTA VILLANUEVA Loc: [facility] EMERGENCY DEPT WALK-IN (Re Img Loc: CT IMAGING Service: Unknown (Case 64 COMPLETE) CT HEAD/BRAIN W/O CONTRAST (C T Detailed) CPT:18255 Reason for Study: falls, blood thinner, AMS, se izure Clinical History: falls, blood thinner, AMS, seizure [place] IS under investigation (PUI) for COVID- 19 or is COVID-19+ Defer to radiologist for final CT protocol. Responsible provider name and phone number to n otify for critical findings if other than user placing the order a nd pager listed below: User placing orders pager: [phone] LAST 3: Collection DT Specimen Test Name [...] ESTIMATED GFR(eGF 44 L Ref: >=60 Allergies: ([place] only) SIMVASTATIN (Feb 29, 2004) CEPHALEXIN (Mar 01, 2004) To see allergies from all [place] locations click Re ports tab>Remote Data>All Available Sites>Clinical Reports>Lashon gies. Report Status: Verified Date Reported: MAY 06, 2022 Date Verified: MAY 06, 2022 Time Study Analyst E-Sig: Report: CT HEAD/BRAIN W/O CONTRAST Clinical History: falls, blood thinner, AMS, se izure Number of Images: 532 Comparison: 03/12/2022 Technique: The study was protocol[facility] and [facility] of the head without contrast. I mages were subsequently received by the [place] National Telera diology Program (NTP) for interpretation. [...] T findings. READING PHYSICIAN: Eduin Donaldson M.D. -[phone] 05/06/2022 12:30 [facility] National Teleradiology Program [phone] (For Medical Practitioner Use Only ) Attention Patients / Veterans: If you have ques tions or concerns about these test results, please contact your o [facility] provider or primary care team. Primary [...] the Encounter. The data comes from all [place] treatment facilities. Date/Time Pathology Report Provider Source May 09, 2022 05:30 AM LR MICROBIOLOGY REPORT: [facility] [place] [facility] Reporting Lab: [facility] [CLIA# [id number]] [place] [address] Accession [UID]: [id number] [[id number]] Receiv ed: May 09, 2022@01:35 Collection sample: BLOOD Collection date: Apr 05:30 Provider: CODIE LEON Comment on specimen: LEFT ARM, RECEIVED 2 BLOOD CULTURE BOTTLES Test(s) ordered: CULTURE & SUSCEPTIBILITY...... 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 R TRIMETH/SULFA................. S TETRACYCLINE.................. S CLINDAMYCIN................... S RIFAMPIN...................... S VANCOMYCIN.................... S Bacteriology Remark(s): VANCOMYCIN SHAMIKA: <=0.5 ug/mL THIS REPORT IS FINAL =--=--=--=--=--=--=--=--=--=--=--=--=--= --=--=--=--=--=--=--=--=--=--=--=--=-- Performing Laboratory: Bacteriology Report Performed By: [facility] [CLIA# [id number]] [place] [address] May 08, 2022 03:23 PM LR MICROBIOLOGY REPORT: [facility] Reporting Lab: [facility] [CLIA# [id number]] [place] [address] Accession [UID]: [id number] [[id number]] Receiv ed: May 08, 2022@15:41 Collection sample: BLOOD Collection date: Apr 15:23 Provider: CODIE LEON Comment on specimen: LEFT ARM, RECEIVED 2 BLOOD CULTURE BOTTLES Test(s) ordered: CULTURE & SUSCEPTIBILITY...... completed: May 10, 2022 * BACTERIOLOGY FINAL REPORT => May 10, 2022 16:3 1 TECH CODE: [id number] CULTURE RESULTS: GROWTH SAME THAT OF ANOTHER CULTURE Comment: FOR SUSCEPTIBILITY REPORT SEE PREVIOUS POSITIVE SAME MB 22 [id number] ( 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 from Anaerobic bottle ) ( Recovered from Aerobic bottle ) Bacteriology Remark(s): THIS REPORT IS FINAL =--=--=--=--=--=--=--=--=--=--=--=--=--= --=--=--=--=--=--=--=--=--=--=--=--=-- Performing Laboratory: Bacteriology Report Performed By: [facility] [CLIA# [id number]] [place] [address] May 08, 2022 03:21 PM LR MICROBIOLOGY REPORT: [facility] Reporting Lab: [facility] [CLIA# [id number]] [place] [address] Accession [UID]: [id number] [[id number]] Receiv ed: May 08, 2022@15:40 Collection sample: BLOOD Collection date: Apr 15:21 Provider: CODIE LEON Comment on specimen: RT ARM, RECEIVED 2 BLOOD CU LTURE BOTTLES Test(s) ordered: CULTURE & SUSCEPTIBILITY...... completed: May 10, 2022 * BACTERIOLOGY FINAL REPORT => May 10, 2022 16:3 1 TECH CODE: [id number] CULTURE RESULTS: GROWTH SAME THAT OF ANOTHER CULTURE Comment: FOR SUSCEPTIBILITY REPORT SEE PREVIOUS POSITIVE SAME MB 22 [id number] ( 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 from Anaerobic bottle ) ( Recovered from Aerobic bottle ) Bacteriology Remark(s): THIS REPORT IS FINAL =--=--=--=--=--=--=--=--=--=--=--=--=--= --=--=--=--=--=--=--=--=--=--=--=--=-- Performing Laboratory: Bacteriology Report Performed By: [facility] [CLIA# [id number]] [place] [address] May 07, 2022 05:30 AM LR MICROBIOLOGY REPORT: [facility] Reporting Lab: [facility] [CLIA# [id number]] [place] [address] Accession [UID]: [id number] [[id number]] Receiv ed: May 07, 2022@01:35 Collection sample: [...] REPORT SEE PREVIOUS POSITIVE SAME MB 22 [id number] ( 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 from Aerobic bottle ) ( Recovered from Anaerobic bottle ) Bacteriology Remark(s): THIS REPORT IS FINAL =--=--=--=--=--=--=--=--=--=--=--=--=--= --=--=--=--=--=--=--=--=--=--=--=--=-- Performing Laboratory: Bacteriology Report Performed By: [facility] [CLIA# [id number]] [place] [address] May 06, 2022 10:51 AM LR MICROBIOLOGY REPORT: [facility] Reporting Lab: [facility] [CLIA# [id number] 147] [place] [address] Accession [UID]: [id number] [[id number]] Receiv ed: May 06, 2022@11:32 Collection sample: [...] --=--=--=--=--=--=--=--=--=--=--=--=-- Performing Laboratory: Bacteriology Report Performed By: [facility] [CLIA# [id number]] [place] [address] May 06, 2022 10:34 AM LR MICROBIOLOGY REPORT: [facility] Reporting Lab: [facility] [CLIA# [id number]] [place] [address] Accession [UID]: [id number] [[id number]] Receiv ed: May 06, 2022@10:51 Collection sample: BLOOD Collection date: Apr 10:34 Provider: MODESTA VILLANUEVA Comment on specimen: RECEIVED 2 BLOOD CULTURE [facility] Test(s) ordered: CULTURE & SUSCEPTIBILITY...... 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 [...] --=--=--=--=--=--=--=--=--=--=--=--=-- Performing Laboratory: Bacteriology Report Performed By: [facility] [CLIA# [id number]] [place] [address] May 06, 2022 10:00 AM LR MICROBIOLOGY REPORT: [facility] Reporting Lab: [facility] [CLIA# [id number]] [place] [address] Accession [UID]: [id number] [[id number]] Receiv ed: May 06, 2022@10:41 Collection sample: [...] SEE PREVIOUS POSITIVE SAME LUIS MIGUEL 22 35562 ( 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 from Anaerobic bottle ) ( Recovered from Aerobic bottle ) Bacteriology Remark(s): THIS REPORT IS FINAL =--=--=--=--=--=--=--=--=--=--=--=--=--= --=--=--=--=--=--=--=--=--=--=--=--=-- Performing Laboratory: Bacteriology Report Performed By: [facility] [CLIA# [id number]] [place] [address] Encounter Notes: All associated encounter notes This section contains the clinical notes associated to the Encounter. Date/Time Encounter Note(s) Provider Source May 07, 2022 10:37 AM PHARMACY MEDICATION MGT NOTE: ANNE-MARIE GILLILAND [facility] LOCAL TITLE: DRUG RECONCILIATION ON ADMIT STANDARD TITLE: PHARMACY MEDICATION MGT NOTE DATE OF NOTE: MAY 07, 2022@10:37 ENTRY DATE: MAY 07, 2022@10:37:29 AUTHOR: ANNE-MARIE GILLILAND EXP COSIGNER: URGENCY: STATUS: COMPLETED PHARMACY MEDICATION HISTORY NOTE Medication & allergy history was compiled by lenore moss to assist providers ordering inpatient medicatio ns. Essential medication list includes active local & remote VA prescriptions, non-VA medica tions, recently & discontinued prescriptions, pending & clinic medication order s. With the exception of allergies, if a category is not listed below, there were no relevant medications for the patient. [facility] will be reviewed to complete medication reconciliation. See [facility] Emergency Department documentation for medications given during emergency department visit. NON-INTERVIEW Patient has NOT BEEN INTERVIEWED by pharmacy lala jackman outpatient medication use prior to admit. Coming from another health care facility, does n ot manage medications. The following medication list pr ovided by provided by [facility] ) and reviewed for essential medications . Allergies: FACILITY ALLERGY/ADR -------- No Remote Allergy/ADR Data available for this chaz meyer [facility] CEPHALEXIN [facility] SIMVASTATIN MAR received from [place] above, in addition to inter view with [facility] at [facility] for clarifications and additional information on med hx. Of note, patient had been residing at [facility] for STR and was tentatively planning for discharge to home on 04/19 02/07 until he had a fall on 04/29/22, hospitalized at [facility] 05[facility]01[facility]05[facility]03, then resumed STR cares at [facility]. Chantal castrejon was mostly receiving medications through the [place] pharmacy while recei ving therapies at the [place] (OT, PT, [employer]) but there was a short time when he was done with therapy, considered private pay, thus [place] pharmacy med supply [place] ut[place]ized. Therapy resumed after most recent hospitalization at [facility] (05/01/22-05/03/22). Patient has active Rxs at [place] Pharmac [place] but will not include them in this list due to not up-to-date and [facility] being currently util ized. Also of note, RN says they started crushing appr opriate meds on 05/04/22 d/t difficulty swallowing and pt chewing his meds. T he following medications are CURRENT: - Acetaminophen 650mg (regul ar IR formulation) PO QID *Changed from ER tab after hospitalization 05/03/22) - Calcitonin 200 units/act 1 spray in 1 nostril QPM for bone health, alternating nostrils each night - Cholecalciferol 2,000 units PO qday - Cyanocobalamin 1000mcg IM once weekly every We dn *most recent dose 05/02/22, next dose due 05/09/22 - Finasteride 5mg PO qday - Furosemide 20mg PO qday - Propranolol 24hr ER capsule 60mg PO qday *New start after hospitalization starting 05/03/22). RN unable to confirm indicat ion but noted pt had acute onset tremors at time of hospitalization on 04/19 11/07 - Sertraline 50mg PO qday - Rivaroxaban 20mg PO qpm wi th evening meal for atrial fibrillation *most recent dose at [place] 05/05/22 PM - Lidocaine patch 4% apply t o lower back for pain QPM for 12 hrs then remove for 12 hrs *note applied in PM, removed in AM. Appe ars to have been refused most days in April. Unclear when last ap plied due to coding on OCT not defined - Metformin 1000mg PO BID - Metoprolol tartrate 12.5mg PO BID for A. fib *New start after hospitalization (change from succinate) 05/03/22 ) - Nystatin powder apply to affected area BID for rash - Sennosides 17.2mg PO BID - Triamcinolone acetonide 0.1% cream apply to af fected area BID for rash *Initially started 04/18/22, then given a durati on of for 1 week on 04/26/22, then reordered without a duration limit after h ospitalization 05/03/22 PRNs: ----- - Lorazepam 0.25mg PO q4h PRN for agitation for 2 weeks *New start 05/04/22, received 5 doses on 05/05, last admin 05/06 @7am* - Oxycodone 5mg PO q4h PRN f or pain *Received 5 doses on 05/05, last admin 05/06 @ 7am; otherwise 2 other doses documented in Apr . (hx from RN includes pt was just about tapered off of oxycodone in Apr unt il it was resumed and given more frequently after the hospitalizati on on 05/03/22 d/t acute pain from fall on 04/29) - Polyethylene glycol 17gm PO qday PRN for const ipation Recently DISCONTINUED medications: - Allopurinol 100mg PO qday (d/c'ed by Abilio CHOPRA 05/03/22; RN states no reason given) - Atorvastatin 5mg PO qhs (d/c'ed by OSH 05/03/22 ; RN states no reason given) - Melatonin 10mg PO qhs (d/c'ed by OSH 05/03/22; RN states no reason given) - Metoprolol succinate 50mg XL PO qday ( changed to metoprolol tartrate at OSH) - Pioglitazone 30mg PO qday (d/c'ed by O 05/03/22; RN states no reason given) - Fentanyl patch 12 mcg/hr 1 patch trans dermally q72hrs Newly started by OSH 05/03/22; last applied 05/03/22 at OSH; order d/c'ed 05/04/22 @11:13 d/t pt diaphoretic; RN states multiple staff lo oked all over his body and could not find a patch to remove). - Prednisone taper started for rash: received 60mg qday x 04/26-04/29 (intended thru 04/30 but gone for [facility] appts, then hospitali zed 04/30-05/03), then order d/c'ed. - Baby powder (talc) apply to back topically BID for skin irritation - Acetaminophen ER tab 650mg QID (replaced by IR form) - Diphenhydramine 50mg PO q8h PRN for it catarina for 1 week 04/24-04/30 *was getting 2-3x/day, last admin 04/29 AM END Consider the following inpatient medications whe n reviewing list above to complete medication reconciliation: Active Inpatient Medications (including Supplies ): Active [...] 30 Minutes *Indication: sepsis* Pharmacy Confirmation #: [id number] IVPB Q6H 17) RIVAROXABAN TAB 20MG PO QPM for chronic afib ACTIVE 18) SERTRALINE TAB 50MG PO QDAY ACTIVE 19) VANCOMYCIN INJ VANCOMYCIN 1000 MG in 0.9% NA CL 250 ACTIVE ML HEPARIN INCOMPAT*OVER 2 HRS* Starting @ 2100 on 05/06. *Indication: sepsis* IVPB Q12H /es/ Noreen TavarezD, BCPS Pharmacist Signed: 05/07/2022 11:04 Receipt Acknowledged By: 05/07/2022 11:11 /es/ AMARIS DE JESUS PHARMACIST * AWAITING SIGNATURE * BETO AYALA
--- OUTSIDE RECORDS SUMMARY | 2022-05-15 09:31 | XMS_ITS | Encounter Summary ---
:1935 Author Organization [facility] Address [address] [place] [address] Support Name Relationship Address Phone WADE LORENZO Unavailable [id number] [place] [address] WADE LORNEZO Unavailable [address] [place] [address] MARILIA MARSHALLA Unavailable [address] [place] [address] GOGEORGE, ARACELI Unavailable [address] [place] [address] Insurance Providers: All historical and current Section [...] Chan [place] M[place] Aug 19, [id number] Kristel [facility] (WNR) ADVANTAGE (WNR) 2017 8 [id number] [phone] [facility] 1 [place] Aug 19, [id number] Kristel [facility] (WNR) ADVANTAGE (WNR) 2016 8 [id number] [phone] [facility] 1 Selected Encounter This section includes the information on record at [place] for the Encounter. Date/Time Encounter Type Encounter Reason Provider Source Description May 06, 2022 01:00 Outpatient ADMIN PAT [facility] AM Encounter (MASNONCT) IHE Encounter Template Text not used by [place] Plan of Treatment: Future Appointments (+ 6 months) and Future Tests (+/- 45 days) The Plan of Treatment section includes future care activities for the patient from [facility]. This section includes future appointments and future orders which are active, pending orscheduled.Future Appointments This section includes appointments that were scheduled to occur 6 months from the date of the Encounter, up to a maximum of 20 appointments. The data comes from all [facility] treatment facilities. Appointment Date/Time Appointment Type Appointment Facili ty Name May 11, 2022 06:15 PM AMBULATORY - NONE [facility] Jul 23, 2022 08:00 AM AMBULATORY - NEUROLOGY [facility] Active, Pending, and Scheduled Orders This section includes a listing of several types of active, pending, and scheduled orders, including clinic medications orders, diagnostic test orders, procedure orders and consult orders; where the start date of the order is 45 days before the date of the Encounter or 45 days after the date of the Encounter. The data comes from all [facility]. Test Date/Time Test Type Test Details Facility Name Apr 30, 2022 08:21 Laboratory - Chemistry URINALYSIS URINE WC ON CE [facility] AM Order Apr 30, 2022 08:21 Laboratory - CULTURE & SUSCEPTIBILITY [facility] AM Microbiology Order URINE WC May 06, 2022 12:00 Laboratory - Blood ABO/RH - LAB BLOOD [facility] AM Bank Order May 06, 2022 10:11 Laboratory - Blood TYPE & SCREEN - LAB [facility] AM Bank Order BLOOD WC May 06, 2022 10:27 [facility] AM Medication Order May 06, 2022 10:28 [facility] AM Infusion Order May 06, 2022 10:34 [facility] AM Infusion Order May 06, 2022 10:41 [facility] AM Infusion Order May 06, 2022 12:15 [facility] PM Medication Order May 06, 2022 01:31 [facility] PM Medication Order May 06, 2022 04:49 [facility] PM Medication Order May 07, 2022 01:00 Laboratory - CULTURE & SUSCEPTIBILITY [facility] PM Microbiology Order BLOOD WC ONCE May 11, 2022 09:07 Laboratory - CULTURE & SUSCEPTIBILITY [facility] AM Microbiology Order BLOOD WC May 11, 2022 09:07 Laboratory - CULTURE & SUSCEPTIBILITY COREY WHALEY [facility] AM Microbiology Order BLOOD WC May 11, 2022 09:38 Laboratory - Chemistry EOSINOPHIL SMEAR,URINE [facility] AM Order URINE WC ONCE May 11, 2022 09:38 Laboratory - Chemistry URINALYSIS URINE WC ON CE [facility] AM Order May 11, 2022 09:38 Laboratory - Chemistry FENA URINE WC ONCE MIN AUDRA [facility] AM Order Lab Results: +/- 30 days of the encounter This section includes the Chemistry and Hematology Lab Results on record with [place] for the patient. Radiology Reports and Pathology Reports are provided separately, in subsequent sections.Lab Results This section contains the Chemistry/Hematology Results that were resulted 30 days before or 30 daysafter the date of the Encounter. Date/Time Source Result Type Result - Unit Interpretation Reference Range Comment May 11, 2022 11:13 [facility] FINGERSTICK GLUCOSE Speci men Type: BLOOD AM Comment: Mark casillas Nurse Notified Ordering Provid er: CODIE LEON Report Released Date/Time: May 11, 2022 11:53 AM Reporting Lab: [facility] [address] [facility] [address] Performing Lab: [facility] [address] [facility] [address] FINGERSTICK GLUCOSE 367 H 70-100 May 11, 2022 07:05 [facility] BASIC METABOLIC Specimen Type: PLASMA AM PANEL+MG No comment enter ed. Ordering Provid er: OG DIAL Report Released Date/Time: May 11, 2022 04:46 AM Reporting Lab: [facility] [address] [facility] [address] Performing Lab: [facility] [address] [facility] [address] CREATININE 1.6 H 0.7-1.2 UREA NITROGEN 28 H 8-26 GLUCOSE 396 H 70-100 SODIUM 150 H 136-145 POTASSIUM 3.7 3.5-5.1 CHLORIDE 120 H 98-107 CO2 23 22-29 CALCIUM 8.4 8.4-10.2 MAGNESIUM 2.1 1.6-2.6 ANION GAP 7 5-15 CREAT EGFR(CKD-EPI) 42 L >60 May 11, 2022 07:05 AM [facility] CBC Specim en Type: BLOOD No comment enter ed. Ordering Provid er: OG DIAL Report Released Date/Time: May 11, 2022 04:46 AM Reporting Lab: [facility] [address] [facility] [address] Performing Lab: [facility] [address] [facility] [address] WBC 15.93 H 4.0-11.0 RBC 3.60 L 4.6-6.2 HGB 11.2 L 13.5-17.9 HCT 35.3 L 41-54 MCV 98.1 80-100 MCH 31.1 27-33 MCHC 31.7 L 32.0-37.5 PLT 231 150-400 MPV 11.2 H 7.4-10.4 RDW 15.2 H 11.5-14.5 May 11, 2022 07:05 [facility] LIVER FUNCTION TESTS Spec imen Type: PLASMA AM No comment enter ed. Ordering Provid er: CODIE LEON Report Released Date/Time: May 11, 2022 09:08 AM Reporting Lab: [facility] [address] [facility] [address] Performing Lab: [facility] [address] [facility] [address] BILIRUBIN, TOTAL 1.6 H 0.2-1.2 ALKALINE PHOSPHATASE 102 40-150 ALT/SGPT 42 <55 AST/SGOT 30 <34 GAMMA GTP 52 <64 DIR. BILIRUBIN 1.2 H <0.5 May 11, 2022 07:05 AM [facility] CK,TOTAL Specim en Type: PLASMA No comment enter ed. Ordering Provid er: CODIE LEON Report Released Date/Time: May 11, 2022 09:08 AM Reporting Lab: [facility] [address] [facility] [address] Performing Lab: [facility] [address] [facility] [address] CK,TOTAL 16 L 39-208 May 11, 2022 07:05 AM [facility] BNP Specim en Type: PLASMA No comment enter ed. Ordering Provid er: CODIE LEON Report Released Date/Time: May 11, 2022 09:15 AM Reporting Lab: [facility] [address] [facility] [address] Performing Lab: [facility] [address] [facility] [address] BNP 59 <99 May 11, 2022 06:14 [facility] FINGERSTICK GLUCOSE Speci men Type: BLOOD AM Comment: Mark casillas Nurse Notified Ordering Provid er: CODIE LEON Report Released Date/Time: May 11, 2022 06:42 AM Reporting Lab: [facility] [address] [facility] [address] Performing Lab: [facility] [address] [facility] [address] FINGERSTICK GLUCOSE 345 H 70-100 May 11, 2022 02:24 [facility] FINGERSTICK GLUCOSE Speci men Type: BLOOD AM Comment: Mark casillas Ordering Provid er: CODIE LEON Report Released Date/Time: May 11, 2022 02:44 AM Reporting Lab: [facility] [address] [facility] [address] Performing Lab: [facility] [address] [facility] [address] FINGERSTICK GLUCOSE 375 H 70-100 May 10, 2022 08:38 [facility] FINGERSTICK GLUCOSE Speci men Type: BLOOD PM Comment: Mark casillas Ordering Provid er: CODIE LEON Report Released Date/Time: May 11, 2022 12:31 AM Reporting Lab: [facility] [address] [facility] [address] Performing Lab: [facility] [address] [facility] [address] FINGERSTICK GLUCOSE 346 H 70-100 May 10, 2022 05:05 [facility] FINGERSTICK GLUCOSE Speci men Type: BLOOD PM Comment: Mark casillas Nurse Notified Ordering Provid er: CODIE LEON Report Released Date/Time: May 10, 2022 11:50 PM Reporting Lab: [facility] [address] [facility] [address] Performing Lab: [facility] [address] [facility] [address] FINGERSTICK GLUCOSE 245 H 70-100 May 10, 2022 02:00 [facility] VANCOMYCIN (TROUGH) Speci men Type: PLASMA PM No comment enter ed. Ordering Provid er: CODIE LEON Report Released Date/Time: May 11, 2022 01:34 AM Reporting Lab: [facility] [address] [facility] [address] Performing Lab: [facility] [address] [facility] [address] VANCOMYCIN (TROUGH) 31.8 H 10.0-15.0 May 10, 2022 [facility] BASIC METABOLIC Specimen Typ e: PLASMA 02:00 PM PANEL+MG No comment enter ed. Ordering Provid er: CODIE LEON Report Released Date/Time: May 11, 2022 01:34 AM Reporting Lab: [facility] [address] Performing Lab: [facility] [address] CREATININE 1.1 .7-1.2 UREA NITROGEN 22 8-26 GLUCOSE 279 H 70-100 SODIUM 150 H 136-145 POTASSIUM 3.2 L 3.5-5.1 CHLORIDE 116 H 98-107 CO2 23 22-29 CALCIUM 8.5 8.4-10.2 MAGNESIUM 2.0 1.6-2.6 ANION GAP 11 5-15 CREAT EGFR(CKD-EPI) 65 >60 May 10, 2022 01:20 PM [facility] CBC & DIFF Specim en Type: BLOOD Comment: Automa nola Differential Performed Ordering Provid er: MD ESTEBAN Report Released Date/Time: May 10, 2022 08:52 PM Reporting Lab: [facility] [address] Performing Lab: [facility] [address] WBC 16.24 H 4.0-11.0 RBC 3.76 L [...] H 0-0.1 May 10, 2022 11:07 [facility] FINGERSTICK GLUCOSE Speci men Type: BLOOD AM Comment: Mark casillas Nurse Notified Ordering Provid er: CODIE LEON Report Released Date/Time: May 11, 2022 12:31 AM Reporting Lab: [facility] [address] [facility] [address] Performing Lab: [facility] [address] [facility] [address] FINGERSTICK GLUCOSE 253 H 70-100 May 10, 2022 06:16 [facility] FINGERSTICK GLUCOSE Speci men Type: BLOOD AM Comment: Mark casillas Nurse Notified Ordering Provid er: CODIE LEON Report Released Date/Time: May 10, 2022 11:50 PM Reporting Lab: [facility] [address] [facility] [address] Performing Lab: [facility] [address] [facility] [address] FINGERSTICK GLUCOSE 271 H 70-100 May 09, 2022 09:07 [facility] FINGERSTICK GLUCOSE Speci men Type: BLOOD PM Comment: Mark casillas Ordering Provid er: OCDIE LEON Report Released Date/Time: May 10, 2022 11:50 PM Reporting Lab: [facility] [address] [facility] [address] Performing Lab: [facility] [address] [facility] [address] FINGERSTICK GLUCOSE 209 H 70-100 May 09, 2022 05:33 [facility] FINGERSTICK GLUCOSE Speci men Type: BLOOD PM Comment: Mark casillas Nurse Notified Ordering Provid er: CODIE LEON Report Released Date/Time: May 09, 2022 05:53 PM Reporting Lab: [facility] [address] [facility] [address] Performing Lab: [facility] [address] [facility] [address] FINGERSTICK GLUCOSE 251 H 70-100 May 09, 2022 02:09 [facility] VANCOMYCIN (PEAK) Specime n Type: SERUM PM No comment enter ed. Ordering Provid er: AMARIS DE JESUS Report Released Date/Time: May 09, 2022 09:33 AM Reporting Lab: [facility] [address] [facility] [address] Performing Lab: [facility] [address] [facility] [address] VANCOMYCIN (PEAK) 24.2 20.0-40.0 May 09, 2022 11:19 [facility] FINGERSTICK GLUCOSE Speci men Type: BLOOD AM Comment: Mark casillas Nurse Notified Ordering Provid er: CODIE LEON Report Released Date/Time: May 09, 2022 11:38 AM Reporting Lab: [facility] [address] [facility] [address] Performing Lab: [facility] [address] [facility] [address] FINGERSTICK GLUCOSE 240 H 70-100 May 09, 2022 08:13 [facility] VANCOMYCIN (TROUGH) Speci men Type: SERUM AM No comment enter ed. Ordering Provid er: AMARIS DE JESUS Report Released Date/Time: May 08, 2022 11:14 AM Reporting Lab: [facility] [address] [facility] [address] Performing Lab: [facility] [address] [facility] [address] VANCOMYCIN (TROUGH) 16.1 H 10.0-15.0 May 09, 2022 05:33 AM [facility] CBC & DIFF Specim en Type: BLOOD Comment: Automa nola Differential Performed Ordering Provid er: CODIE LEON Report Released Date/Time: May 08, 2022 05:27 PM Reporting Lab: [facility] [address] [facility] [address] Performing Lab: [facility] [address] [facility] [address] WBC 14.92 H 4.0-11.0 RBC 3.41 L [...] 0.16 H 0-0.1 May 09, 2022 [facility] COMPREHENSIVE METABOLIC Spec imen Type: PLASMA 05:32 AM PANEL+MG No comment enter ed. Ordering Provid er: CODIE LEON Report Released Date/Time: May 08, 2022 05:27 PM Reporting Lab: [facility] [address] [facility] [address] Performing Lab: [facility] [address] [facility] [address] CREATININE 1.2 0.7-1.2 UREA NITROGEN 25 8-26 [...] L >60 May 09, 2022 05:16 [facility] FINGERSTICK GLUCOSE Speci men Type: BLOOD AM Comment: Mark casillas Nurse Notified Ordering Provid er: CODIE LEON Report Released Date/Time: May 09, 2022 07:27 AM Reporting Lab: [facility] [address] [facility] [address] Performing Lab: [facility] [address] [facility] [address] FINGERSTICK GLUCOSE 295 H 70-100 May 08, 2022 09:32 PM [facility] EXTRA MINT TUBE Specim en Type: PLASMA No comment enter ed. Ordering Provid er: MD ESTEBAN Report Released Date/Time: May 08, 2022 09:32 PM Reporting Lab: [facility] [address] [facility] [address] Performing Lab: [facility] [address] [facility] [address] EXTRA MINT TUBE RECEIVED May 08, 2022 09:32 PM [facility] EXTRA PURPLE TUBE Spec imen Type: BLOOD No comment enter ed. Ordering Provid er: MD ESTEBAN Report Released Date/Time: May 08, 2022 09:32 PM Reporting Lab: [facility] [address] [facility] [address] Performing Lab: [facility] [address] [facility] [address] EXTRA PURPLE TUBE RECEIVED May 08, 2022 09:32 [facility] EXTRA GOLD GEL TUBE Speci men Type: SERUM PM No comment enter ed. Ordering Provid er: MD ESTEBAN Report Released Date/Time: May 08, 2022 09:32 PM Reporting Lab: [facility] [address] [facility] [address] Performing Lab: [facility] [address] [facility] [address] EXTRA GOLD GEL TUBE RECEIVED May 08, 2022 09:32 PM [facility] EXTRA BLUE TUBE Specim en Type: PLASMA No comment enter ed. Ordering Provid er: MD ESTEBAN Report Released Date/Time: May 08, 2022 09:32 PM Reporting Lab: [facility] [address] [facility] [address] Performing Lab: [facility] [address] [facility] [address] EXTRA BLUE TUBE RECEIVED May 08, 2022 09:32 PM [facility] EXTRA BRASWELL TUBE Specim en Type: PLASMA No comment enter ed. Ordering Provid er: MD ESTEBAN Report Released Date/Time: May 08, 2022 09:37 PM Reporting Lab: [facility] [address] [facility] [address] Performing Lab: [facility] [address] [facility] [address] EXTRA BRASWELL TUBE RECEIVED May 08, 2022 09:32 PM [facility] LACTIC ACID Specim en Type: PLASMA No comment enter ed. Ordering Provid er: OG DIAL Report Released Date/Time: May 08, 2022 09:49 PM Reporting Lab: [facility] [address] [facility] [address] Performing Lab: [facility] [address] [facility] [address] LACTIC ACID 2.5 H 0.5-2.2 May 08, 2022 09:32 PM [facility] BNP Specim en Type: PLASMA No comment enter ed. Ordering Provid er: OG DIAL Report Released Date/Time: May 08, 2022 09:50 PM Reporting Lab: [facility] [address] [facility] [address] Performing Lab: [facility] [address] [facility] [address] BNP 897 H <99 May 08, 2022 09:32 PM [facility] BLOOD GASES Specim en Type: VENOUS BLOOD Comment: O2 THE RAPY = 3L PM Ordering Provid er: OG DIAL Report Released Date/Time: May 08, 2022 09:50 PM Reporting Lab: [facility] [address] [address] Performing Lab: [facility] [address] PH 7.36 7.33-7.43 PCO2 47 41-51 BICARBONATE 24.4 21.0-30.0 PO2 31 L 35-40 OXYGEN SATURATION 54.7 L 70.0-75.0 PH(TEMP CORRECTED) 7.37 7.33-7.43 PCO2(TEMP CORRECTED) 46 41-51 PO2(TEMP CORRECTED) 31 L 35-40 PATIENT TEMPERATURE 36.7 May 08, 2022 09:32 PM [facility] CBC Specim en Type: BLOOD No comment enter ed. Ordering Provid er: OG DIAL Report Released Date/Time: May 08, 2022 09:50 PM Reporting Lab: [facility] [address] Performing Lab: [facility] [address] WBC 18.54 H 4.0-11.0 RBC 3.68 L 4.6-6.2 HGB 11.5 L 13.5-17.9 HCT 35.1 L 41-54 MCV 95.4 80-100 MCH 31.3 27-33 MCHC 32.8 32.0-37.5 PLT 221 150-400 MPV 11.1 H 7.4-10.4 RDW 14.9 H 11.5-14.5 May 08, 2022 [facility] COMPREHENSIVE METABOLIC Spec imen Type: PLASMA 09:32 PM PANEL+MG No comment enter ed. Ordering Provid er: OG DIAL Report Released Date/Time: May 08, 2022 09:50 PM Reporting Lab: [facility] [address] Performing Lab: [facility] [address] CREATININE 1.3 H 0.7-1.2 UREA NITROGEN 26 [...] L >60 May 08, 2022 08:27 [facility] FINGERSTICK GLUCOSE Speci men Type: BLOOD PM Comment: Mark casillas Nurse Notified Ordering Provid er: CODIE LEON Report Released Date/Time: May 08, 2022 08:55 PM Reporting Lab: [facility] [address] [facility] [address] Performing Lab: [facility] [address] [facility] [address] FINGERSTICK GLUCOSE 272 H 70-100 May 08, 2022 06:56 [facility] FINGERSTICK GLUCOSE Speci men Type: BLOOD PM Comment: Mark casillas Ordering Provid er: CODIE LEON Report Released Date/Time: May 08, 2022 07:08 PM Reporting Lab: [facility] [address] [facility] [address] Performing Lab: [facility] [address] [facility] [address] FINGERSTICK GLUCOSE 262 H 70-100 May 08, 2022 04:50 [facility] FINGERSTICK GLUCOSE Speci men Type: BLOOD PM Comment: Nurse Notified Ordering Provid er: CODIE LEON Report Released Date/Time: May 08, 2022 05:14 PM Reporting Lab: [facility] [address] [facility] [address] Performing Lab: [facility] [address] [facility] [address] FINGERSTICK GLUCOSE 330 H 70-100 May 08, 2022 11:21 [facility] FINGERSTICK GLUCOSE Speci men Type: BLOOD AM Comment: Mark casillas Nurse Notified Ordering Provid er: CODIE LEON Report Released Date/Time: May 08, 2022 11:51 AM Reporting Lab: [facility] [address] [facility] [address] Performing Lab: [facility] [address] [facility] [address] FINGERSTICK GLUCOSE 231 H 70-100 May 08, 2022 07:25 AM [facility] CBC & DIFF Specim en Type: BLOOD Comment: Automa nola Differential Performed Ordering Provid er: BETO AYALA Report Released Date/Time: May 07, 2022 12:28 PM Reporting Lab: [facility] [address] [facility] [address] Performing Lab: [facility] [address] [facility] [address] WBC 16.29 H 4.0-11.0 RBC 3.38 L [...] 0.26 H 0-0.1 May 08, 2022 [facility] PROTHROMBIN TIME/INR Specime n Type: PLASMA 07:25 AM No comment enter ed. Ordering Provid er: BETO AYALA Report Released Date/Time: May 07, 2022 12:28 PM Reporting Lab: [facility] [address] [facility] [address] Performing Lab: [facility] [address] .INR 1.2 H 0.8-1.1 .PT 14.2 H 9.4-12.5 May 08, 2022 [facility] COMPREHENSIVE METABOLIC Spec imen Type: PLASMA 07:25 AM PANEL+MG No comment enter ed. Ordering Provid er: BETO AYALA Report Released Date/Time: May 07, 2022 12:28 PM Reporting Lab: [facility] [address] [facility] [address] Performing Lab: [facility] [address] CREATININE 1.1 0.7-1.2 UREA NITROGEN 27 H [...] 65 >60 May 08, 2022 06:53 [facility] FINGERSTICK GLUCOSE Speci men Type: BLOOD AM Comment: Mark casillas Ordering Provid er: CODIE LEON Report Released Date/Time: May 08, 2022 07:18 AM Reporting Lab: [facility] [address] [facility] [address] Performing Lab: [facility] [address] [facility] [address] FINGERSTICK GLUCOSE 276 H 70-100 May 07, 2022 08:36 [facility] FINGERSTICK GLUCOSE Speci men Type: BLOOD PM Comment: Nurse Notified Ordering Provid er: CODIE LEON Report Released Date/Time: May 08, 2022 12:29 AM Reporting Lab: [facility] [address] [facility] [id number] Performing Lab: [facility] [address] [facility] [address] FINGERSTICK GLUCOSE 282 H 70-100 May 07, 2022 07:04 PM [facility] LACTIC ACID Specim en Type: PLASMA No comment enter ed. Ordering Provid er: BETO AYALA Report Released Date/Time: May 07, 2022 06:28 PM Reporting [facility]: [facility] [facility] [address] [facility] [address] Performing Lab: [facility] [address] [facility] [address] LACTIC ACID 2.0 0.5-2.2 May 07, 2022 04:46 [facility] FINGERSTICK GLUCOSE Speci men Type: BLOOD PM Comment: Nurse Notified Ordering Provid er: BETO AYALA Report Released Date/Time: May 07, 2022 05:00 PM Reporting Lab: [facility] [address] [facility] [address] Performing Lab: [facility] [address] [facility] [address] FINGERSTICK GLUCOSE 274 H 70-100 May 07, 2022 12:47 [facility] FINGERSTICK GLUCOSE Speci men Type: BLOOD PM Comment: Mark casillas Nurse Notified Ordering Provid er: BETO AYALA Report Released Date/Time: May 07, 2022 05:32 PM Reporting Lab: [facility] [address] [facility] [address] Performing Lab: [facility] [address] [facility] [address] FINGERSTICK GLUCOSE 309 H 70-100 May 07, 2022 06:35 [facility] FINGERSTICK GLUCOSE Speci men Type: BLOOD AM Comment: Mark casillas Nurse Notified Ordering Provid er: GAYLA DOMINGUEZ Report Released Date/Time: May 07, 2022 06:46 AM Reporting Lab: [facility] [address] [facility] [address] Performing Lab: [facility] [address] [facility] [address] FINGERSTICK GLUCOSE 352 H 70-100 May 07, 2022 06:15 AM [facility] ALBUMIN Specim en Type: PLASMA No comment enter ed. Ordering Provid er: GAYLA DOMINGUEZ Report Released Date/Time: May 06, 2022 06:33 PM Reporting Lab: [facility] [address] [facility] [address] Performing Lab: [facility] [address] [facility] [address] ALBUMIN 3.0 L 3.5-5.2 May 07, 2022 [facility] COMPREHENSIVE METABOLIC Spec imen Type: PLASMA 06:15 AM PANEL+MG No comment enter ed. Ordering Provid er: GAYLA DOMINGUEZ Report Released Date/Time: May 06, 2022 09:11 PM Reporting Lab: [facility] [address] [facility] [address] Performing Lab: [facility] [address] [facility] [address] CREATININE 1.2 0.7-1.2 UREA NITROGEN 25 8-26 [...] >60 May 07, 2022 06:15 AM [facility] CBC & DIFF Specim en Type: BLOOD Comment: Manual Differential Performed Ordering Provid er: GAYLA DOMINGUEZ Report Released Date/Time: May 06, 2022 09:11 PM Reporting Lab: [facility] [address] Performing Lab: [facility] [address] WBC 20.25 H 4.0-11.0 RBC 3.54 L [...] NORMOCHROMIC May 07, 2022 12:19 AM [facility] LACTIC ACID Specim en Type: PLASMA No comment enter ed. Ordering Provid er: GAYLA DOMINGUEZ Report Released Date/Time: May 06, 2022 07:13 PM Reporting Lab: [facility] [address] Performing Lab: [facility] [address] LACTIC ACID 2.7 H 0.5-2.2 May 06, 2022 10:45 [facility] FINGERSTICK GLUCOSE Speci men Type: BLOOD PM Comment: Save R esult Nurse Notified Ordering Provid er: GAYLA DOMINGUEZ Report Released Date/Time: May 07, 2022 12:08 AM Reporting Lab: [facility] [address] [facility] [address] Performing Lab: [facility] [address] [facility] [address] FINGERSTICK GLUCOSE 320 H 70-100 May 06, 2022 06:53 [facility] MRSA SURVL NARES Specimen Type: NARES PM DNA No comment enter ed. Ordering Provid er: GAYLA DOMINGUEZ Report Released Date/Time: May 06, 2022 06:33 PM Reporting Lab: [facility] [address] [facility] [address] Performing Lab: [facility] [address] [facility] [address] MRSA SURVL NARES DNA POSITIVE HH Negative May 06, 2022 06:51 PM [facility] LACTIC ACID Specim en Type: PLASMA No comment enter ed. Ordering Provid er: GAYLA DOMINGUEZ Report Released Date/Time: May 06, 2022 06:04 PM Reporting Lab: [facility] [address] [facility] [address] Performing Lab: [facility] [address] [facility] [address] LACTIC ACID 3.1 H 0.5-2.2 May 06, 2022 06:51 [facility] CARDIAC TROPONIN I Specim en Type: PLASMA PM No comment enter ed. Ordering Provid er: GAYLA DOMINGUEZ Report Released Date/Time: May 06, 2022 06:05 PM Reporting Lab: [facility] [address] [facility] [address] Performing Lab: [facility] [address] [facility] [address] CARDIAC TROPONIN I <0.028 <0.028 May 06, 2022 06:51 [facility] EXTRA GOLD GEL TUBE Speci men Type: SERUM PM No comment enter ed. Ordering Provid er: GAYLA DOMINGUEZ Report Released Date/Time: May 06, 2022 06:52 PM Reporting Lab: [facility] [address] [facility] [address] Performing Lab: [facility] [address] [facility] [address] EXTRA GOLD GEL TUBE RECEIVED May 06, 2022 06:51 [facility] C-REACTIVE PROTEIN Specim en Type: PLASMA PM No comment enter ed. Ordering Provid er: GAYLA DOMINGUEZ Report Released Date/Time: May 06, 2022 09:29 PM Reporting Lab: [facility] [address] Performing Lab: [facility] [address] C-REACTIVE PROTEIN 392.40 H <5.00 May 06, 2022 10:51 AM [facility] URINALYSIS Specim en Type: URINE No comment enter ed. Ordering Provid er: MODESTA VILLANUEVA Report Released Date/Time: May 06, 2022 10:11 AM Reporting Lab: [facility] [address] Performing Lab: [facility] [address] URINE COLOR YELLOW SPECIFIC GRAVITY 1.020 1.003-1.035 [...] 500 NEGATIVE May 06, 2022 10:24 [facility] COVID-19 DIAGNOSTIC Speci men Type: NASOPHARYNGEAL AM PANEL (CEPHEID) Comment: Cephei d GeneXpert (618) Ordering Provid er: MODESTA VILLANUEVA Report Released Date/Time: May 06, 2022 10:11 AM Reporting Lab: [facility] [address] [facility] [address] Performing Lab: [facility] [address] COVID-19 (CEPHEID) Not Detected Not Dete cted May 06, 2022 10:20 AM [facility] POC ABG/LACTATE Specim en Type: VENOUS BLOOD No comment enter ed. Ordering Provid er: MODESTA VILLANUEVA Report Released Date/Time: May 06, 2022 10:22 AM Reporting Lab: [facility] [address] Performing Lab: [facility] [address] POC PH 7.410 7.31-7.41 POC PCO2 28.9 L 35.00-45.00 POC PO2 82 H 35.0-40.0 POC TCO2 19 L 24.0-29.0 POC HCO3 18.3 L 23.0-28.0 POC BE ECT -6 L -2 POC SO2 96 H 70-75 POC LACTATE 3.62 0.90-1.70 May 06, 2022 10:00 AM [facility] PHOSPHORUS Specim en Type: PLASMA No comment enter ed. Ordering Provid er: MODESTA VILLANUEVA Report Released Date/Time: May 06, 2022 10:11 AM Reporting Lab: [facility] [address] [facility] [address] Performing Lab: [facility] [address] [facility] [address] PHOSPHORUS 2.5 2.3-4.7 May 06, 2022 10:00 [facility] PROTHROMBIN TIME/INR Spec imen Type: PLASMA AM No comment enter ed. Ordering Provid er: MODESTA VILLANUEVA Report Released Date/Time: May 06, 2022 10:11 AM Reporting Lab: [facility] [address] [facility] [address] Performing Lab: [facility] [address] [facility] [address] .INR 2.5 H 0.8-1.1 .PT 29.2 H 9.4-12.5 May 06, 2022 10:00 [facility] ACT PART THROMBO TIME Spe cimen Type: PLASMA AM No comment enter ed. Ordering Provid er: MODESTA VILLANUEVA Report Released Date/Time: May 06, 2022 10:11 AM Reporting Lab: [facility] [address] [facility] [address] Performing Lab: [facility] [address] [facility] [address] APTT 37.8 H 25.1-36.5 May 06, 2022 10:00 [facility] CARDIAC TROPONIN I Specim en Type: PLASMA AM Comment: Critic al Value Reported To: BROOKS COTE 05-06-2022 @1053 BY MBB. Critical value report confirmed. Ordering Provid er: MODESTA VILLANUEVA Report Released Date/Time: May 06, 2022 10:11 AM Reporting Lab: [facility] [address] [facility] [address] Performing Lab: [facility] [address] [facility] [address] CARDIAC TROPONIN I 0.035 HH <0.028 May 06, 2022 10:00 AM [facility] PROCALCITONIN Specim en Type: PLASMA No comment enter ed. Ordering Provid er: MODESTA VILLANUEVA Report Released Date/Time: May 06, 2022 10:11 AM Reporting Lab: [facility] [address] [facility] [address] Performing Lab: [facility] [address] [facility] [address] PROCALCITONIN 22.29 H <0.09 May 06, 2022 10:00 AM [facility] LIPASE Specim en Type: PLASMA No comment enter ed. Ordering Provid er: MODESTA VILLANUEVA Report Released Date/Time: May 06, 2022 10:11 AM Reporting Lab: [facility] [address] [facility] [address] Performing Lab: [facility] [address] [facility] [address] LIPASE <4 <60 May 06, 2022 [facility] COMPREHENSIVE METABOLIC Spec imen Type: PLASMA 10:00 AM PANEL+MG Comment: Manual Differential Performed Ordering Provid er: MODESTA VILLANUEVA Report Released Date/Time: May 06, 2022 10:11 AM Reporting Lab: [facility] [address] [facility] [address] Performing Lab: [facility] [address] [facility] [address] CREATININE 1.3 H 0.7-1.2 UREA NITROGEN 25 [...] L >60 May 06, 2022 10:00 [facility] EXTRA GOLD GEL TUBE Speci men Type: SERUM AM No comment enter ed. Ordering Provid er: LINNEA RAND Report Released Date/Time: May 06, 2022 10:25 AM Reporting Lab: [facility] [address] [facility] [address] Performing Lab: [facility] [address] [facility] [address] EXTRA GOLD GEL TUBE RECEIVED May 06, 2022 10:00 AM [facility] CBC & DIFF Specim en Type: BLOOD Comment: Manual Differential Performed Ordering Provid er: MODESTA VILLANUEVA Report Released Date/Time: May 06, 2022 10:11 AM Reporting Lab: [facility] [address] [facility] [address] Performing Lab: [facility] [address] [facility] [address] WBC 18.82 H 4.0-11.0 RBC 3.70 L [...] MORPHOLOGY PRESENT May 06, 2022 09:46 [facility] FINGERSTICK GLUCOSE Speci men Type: BLOOD AM Comment: Mark casillas Nurse Notified Ordering Provid er: MODESTA VILLANUEVA Report Released Date/Time: May 06, 2022 09:59 AM Reporting Lab: [facility] [address] [facility] [address] Performing Lab: [facility] [address] [facility] [address] FINGERSTICK GLUCOSE 369 H 70-100 Apr 30, 2022 09:17 AM [facility] CBC Specim en Type: BLOOD No comment enter ed. Ordering Provid er: BILL ROONEY Report Released Date/Time: Apr 30, 2022 08:21 AM Reporting Lab: [facility] [address] [facility] [address] Performing Lab: [facility] [address] [facility] [address] WBC 10.40 4.0-11.0 RBC 3.96 L 4.6-6.2 HGB 12.3 L 13.5-17.9 HCT 37.8 L 41-54 MCV 95.5 80-100 MCH 31.1 27-33 MCHC 32.5 32.0-37.5 PLT 286 150-400 MPV 10.1 7.4-10.4 RDW 14.6 H 11.5-14.5 Apr 30, 2022 [facility] BASIC METABOLIC Specimen Typ e: PLASMA 09:17 AM PANEL+MG No comment enter ed. Ordering Provid er: BILL ROONEY Report Released Date/Time: Apr 30, 2022 08:21 AM Reporting Lab: [facility] [address] [facility] [address] Performing Lab: [facility] [address] CREATININE 1.2 0.7-1.2 UREA NITROGEN 26 8-26 [...] % 99 [place] 2021 10:00 /min mm[Hg] [facility] May 06, 100 [facility] May 06, 101.2 F 84 117/56 22 /min 10 [place] 2021 11:22 /min mm[Hg] [facility] AM [facility] May 06, 257.4 34 [place] 2021 10:41 lb [facility] Social History: Smoking Status (Most current) and Tobacco Use (All prior to encounter date) This section includes the most current, and the historical, smoking and tobacco-related health factors from the [place] facility where the Encounter took place.Current Smoking Status This section includes the most current smoking, or tobacco-related health factor, from the [place] facility where the Encounter took place. Date/Time Current Smoking Status Comment Facility Feb 02, 2022 09:30 AM VA-TOBACCO NEVER USED [facility] Tobacco Use History This section includes a history of the smoking, or tobacco- related health factors, that were collected on or before the date of the Encounter. The data comes from the [place] facility where the Encounter took place. Date/Time [...] ALL of a patient's completed or amended [place] Advance and Rescinded Directives. The entries below indicate that a directive exists for the patient, but an actual copy is not included with this document. The data comes from all [facility]. Date Advance Directives Provider Source Apr 18, 2018 ADVANCE DIRECTIVE LARISSA SIGALA [facility] Apr 18, 2018 ADVANCE DIRECTIVE DISCUSSION LARISSA SIGALA [facility] December 23, 2017 CLINICAL WARNING FARHAT SCHMID [facility] May 11, 2003 ADVANCE [...] the Encounter. The data comes from all [place] treatment facilities. Date/Time Radiology Report Provider Source May 11, 2022 09:46 CHEST 1 VIEW: SONJA OVALLES [facility] [place] [id number] -1935 M Exm Date: MAY 11, 2022@09:46 Req Phys: CODIE LEON Loc: OP Unknown /05-13-2022@05:05 Img Loc: MAIN X-RAY Service: PRIMARY CARE - MED OFFICE (Case [id number] COMPLETE) CHEST 1 VIEW (RAD Detailed) CPT:06402 Proc Modifiers : PORTABLE EXAM Reason for Study: resp distress Clinical History: [place] IS NOT under investigation for COVID-19 or is COVID-19 negative Respiratory distress Responsible provider name and phone number to notify for critical findings if other than u ser placing the order and pager listed below: User placing orde rs pager: [phone] cell LAST CREATININE 1.6 H (05/11/22) Report Status: Verified Date Reported: MAY 11, 2022 Date Verified: MAY 11, 2022 Cook Pressure E-Sig:/ES/SONJA OVALLES MD Report: CHEST 1 VIEW [...] Primary Interpreting Staff: SONJA OVALLES MD, RADIOLOGIST (Cook Pressure) /[facility] May 10, 2022 03:49 CT HEAD (P): RADIOLOGY,OUTSIDE [facility] PM [place] ED[place] [id number] -1935 M SERVICE Exm Date: MAY 10, 2022@15:49 Req Phys: CODIE LEON Loc: OP Unknown /05-13-2022@05:05 [facility] Loc: CT IMAGING Service: PRIMARY CARE - MED OFFICE (Case [id number] COMPLETE) CT HEAD/BRAIN W/O CONTRAST (CT Detailed) CPT:17265 Reason for Study: CHANGE IN MENTAL STATUS Clinical History: CHANGE IN MENTAL STATUS. ORDER ADMINISTRATIVELY ENTERED FOLLOWING SYSTEM OUTAGE. Report Status: Verified Date Reported: MAY 10, 2022 Date Verified: MAY 10, 2022 Cook Pressure E-Sig: Report: CT HEAD/BRAIN W/O CONTRAST [PRINTSET] HISTORY: Change in mental status. COMPARISON: CT from 05/07/2022. TECHNIQUE: Contiguous axial CT images from the level of the skull base through the skull apex, with coronal and s agittal reformats, performed at the local [place] facility. 321 images were received by the [place] National Teleradiology Program (NTP) for interpretation. RADIATION [...] study. READING PHYSICIAN: Akash Mccoy M.D. -[phone] 05/10/2022 17:35 PDT [facility] National Teleradiology Program [phone] (For Medical Practitioner Use Only ) Attention Patients / Veterans: If you have ques tions or concerns about these test results, please contact [facility] or primary care team. Primary Interpreting Staff: RADIOLOGY,OUTSIDE SERVICE, Staff Physician / May 08, 2022 07:45 CT T-SPINE (P): RADIOLOGY,OUTSIDE [facility] PM [place] ED[place] [id number] -1935 M SERVICE Exm Date: MAY 08, 2022@19:45 Req Phys: CODIE LEON Camron Cornejo Loc: OP Unknown /05-13-2022@05:05 Img Loc: CT IMAGING Service: PRIMARY CARE - MED OFFICE (Case [id number] COMPLETE) CT SPINE THORACIC W/O CONTR AST (CT Detailed) CPT:07789 Reason for Study: mrsa bacteremia, spinal surge ry - r/o abscess or discitis Clinical History: IS NOT under investigation for COVID-19 or is COVID-19 negative Defer to radiologist for final CT protocol. Responsible provider name and phone number to n otify for critical findings if other than user placing the order a nd pager listed below: User placing orders pager: [phone] LAST 3: Collection DT Specimen Test Name [...] GFR (eGF 44 L Ref: >=60 Allergies: ([place] only) SIMVASTATIN (Feb 29, 2004) CEPHALEXIN (Mar 01, 2004) Report Status: Verified Date Reported: MAY 08, 2022 Date Verified: MAY 08, 2022 Cook Pressure E-Sig: Report: CT SPINE THORACIC W/O CONTRAST [PRINTSET] HISTORY:MRSA bacteremia NUMBER OF IMAGES:1151 COMPARISON: Correlation with images from recent CT abdomen and pelvis May 06, 2022 TECHNIQUE: A non contrast CT of the thoracic sp ine was performed at the local [place]. Images were subsequently sent to [facility] for interpretation. Axial, coronal and sagittal [...] thoracic level. READING PHYSICIAN: Luisana Webb MD -[phone] 05/08/2022 19:20 PDT [facility] National Teleradiology Program [phone] (For Medical Practitioner Use Only ) Attention Patients / Veterans: If you have ques tions or concerns about these test results, please contact your [facility] provider or primary care team. Primary Interpreting Staff: RADIOLOGY,OUTSIDE SERVICE, Staff Physician / May 08, 2022 04:48 CHEST 1 VIEW: RADIOLOGY,OUTSIDE [facility] PM [place] EDDY [id number] -1935 M SERVICE Exm Date: MAY 08, 2022@16:48 Req Phys: CODIE LEON Loc: OP Unknown /05-13-2022@05:05 Img Loc: MAIN X-RAY Service: PRIMARY CARE - MED OFFICE (Case [id number] COMPLETE) CHEST 1 VIEW (RAD Detailed) CPT:32424 Proc Modifiers : PORTABLE EXAM Reason for Study: dyspnea Clinical History: [place] IS NOT under investigation for COVID-19 or is COVID-19 negative acute worsening of dyspnea Responsible provider name and phone number to notify for critical findings if other than user placing the order and pager listed below: User placing orders pager: [phone] malini cell [phone] LAST CREATININE 1.1 (05/08/22) Report Status: Verified Date Reported: MAY 08, 2022 Date Verified: MAY 08, 2022 Cook Pressure E-Sig: Report: CHEST 1 VIEW HISTORY: dyspnea COMPARISON: 05/06/2022 TECHNIQUE: Frontal view(s) of the chest, submit nola to the [place] National Teleradiology Program (NTP) for interp retation. FINDINGS: Reduced lung volumes. Progressive cardiomegaly, and vascular congestion as well as diffuse interstitial prom inence with probable small effusions. Impression: Expiratory exam with findings of CHF and mild e santa READING PHYSICIAN: Nghia Menjivar M.D. -[id number] 10 05/08/2022 18:57 EDT [facility] National Teleradiology Program [phone] (For Medical Practitioner Use Only ) Attention Patients / Veterans: If you have ques tions or concerns about these test results, please contact your o rdering provider or primary care team. Primary Interpreting Staff: RADIOLOGY,OUTSIDE SERVICE, Staff Physician / May 07, 2022 10:29 CT HEAD (P): SHANI POLANCO [facility] [place] ED[place] [id number] -1935 M Exm Date: MAY 07, 2022@10:29 Req Phys: BETO AYALA Pat Loc: OP Unknown/0 05-13-2022@05:05 Img Loc: CT IMAGING Service: PRIMARY CARE - MED OFFICE (Case [id number] COMPLETE) CT HEAD/BRAIN W/O CONTRAST ( CT Detailed) CPT:51983 Reason for Study: seizure noted at [facility] Clinical History: [place] IS NOT under investigation for COVID-19 or is COVID-19 negative Defer to radiologist for final CT protocol. Responsible provider name and phone number to n otify for critical findings if other than user placing the order a nd pager listed below: User placing orders pager: [phone] LAST 3: Collection DT Specimen Test Name [...] GFR (eGF 44 L Ref: >=60 Allergies: ([place] only) SIMVASTATIN (Feb 29, 2004) CEPHALEXIN (Mar 01, 2004) Report Status: Verified Date Reported: MAY 07, 2022 Date Verified: MAY 07, 2022 Cook Pressure E-Sig:/ES/SHANI POLANCO MD Report: EXAM: CT HEAD/BRAIN W/O CONTRAST HISTORY: seizure noted at [facility] Reason for Study: seizure noted at [facility] [place] IS NOT under investigation for COVID-19 or is COVID-19 negative Defer to radiologist for final CT prot ocol. Responsible provider name and phone number to notify for cr itical findings if other than user placing the order and pager lis nola below: User placing orders pager: [phone] LAST 3: Collecti on DT Specimen Test [...] Primary Interpreting Staff: SHANI POLANCO MD, RADIOLOGIST (Cook Pressure) /Javed May 06, 2022 11:40 CHEST 1 VIEW: RADIOLOGY,OUTSIDE [facility] [place] [id number] [facility]1935 M SERVICE Exm Date: MAY 06, 2022@11:40 Req Phys: MODESTA VILLANUEVA Loc: [facility] WALK-IN (Re Img Loc: MAIN X-RAY Service: Unknown (Case [id number] COMPLETE) CHEST 1 VIEW (RAD Detailed) C PT:74749 Proc Modifiers : PORTABLE EXAM Reason for Study: fever, back pain Clinical History: Reason for Exam: Severe Sepsis Pathway to Evalu ate Volume Status and Source of Sepsis [place] IS under investigation ([facility]) for COVID- 19 or is COVID-19+ 86 yo M with fever, back pain Responsible provi violeta name and phone number to notify for critical findings if other than user placing the order and pager listed below: User placing orders pager: [phone] LAST CREATININE 1.2 (04/30/22) Report Status: Verified Date Reported: MAY 06, 2022 Date Verified: MAY 06, 2022 Cook Pressure E-Sig: Report: Technique: Frontal chest. No comparison Impression: Cardiac silhouette is mildly enlarged. There is mild pulmonary venous congestion. No definite pleural effusion . No pneumothorax seen. READING PHYSICIAN: Vern Donnelly M.D. -[id number] 05/06/2022 13:26 EDT [facility] National Teleradiology Program [phone] (For Medical Practitioner Use Only ) Attention Patients / Veterans: If you have ques tions or concerns about these test results, please contact your [facility] provider or primary care team. Primary Interpreting Staff: RADIOLOGY,OUTSIDE SERVICE, Staff Physician / May 06, 2022 10:36 CT (AP) ABDOMEN/PELVIS (P): RADIOLOGY,OUTSIDE [facility] [place] [id number] -1935 M SERVICE Exm Date: MAY 06, 2022@10:36 Req Phys: MODESTA VILLANUEVA Loc: [facility] WALK-IN (Re Img Loc: CT IMAGING Service: Unknown (Case [id number] COMPLETE) CT (AP) ABDOMEN/PELVIS W CONT RAST(CT Detailed) CPT:52641 Reason for Study: fever, back pain Clinical History: fever, back pain, ecchymosis left low back consideration for intra-abdominal process, aort ic changes, LS spine trauma, kidney inflammation, GI or obs truction [place] IS under investigation (PUI) for COVID- 19 or is COVID-19+ Defer to radiologist for final CT protocol. Please enter pertinent clinical history on the next page. Responsible provider name and phone number to n otify for critical findings if other than user placing the order a nd pager listed below: User placing orders pager: [phone] LAST 3: Collection DT Specimen Test Name [...] ESTIMATED GFR(eGF 44 L Ref: >=60 Allergies: ([place] only) SIMVASTATIN (Feb 29, 2004) CEPHALEXIN (Mar 01, 2004) To see allergies from all [facility] locations click Re ports tab>Remote Data>All Available Sites>Clinical Reports>Aller gies. Report Status: Verified Date Reported: MAY 06, 2022 Date Verified: MAY 06, 2022 Cook Pressure E-Sig: Report: Exam: CT (AP) ABDOMEN/PELVIS W [...] findings, above. READING PHYSICIAN: Eduin Donaldson M.D. -[phone] 05/06/2022 12:48 [facility] National Teleradiology Program [phone] (For Medical Practitioner Use Only ) Attention Patients / Veterans: If you have ques tions or concerns about these test results, please contact your o [facility] provider or primary care team. Primary Interpreting Staff: RADIOLOGY,OUTSIDE SERVICE, Staff Physician / May 06, 2022 10:35 CT HEAD/BRAIN W/O CONTRAST: RADIOLOGY,OUTSIDE [facility] AM LUISANA EDDY [id number] 1935 M SERVICE Exm Date: MAY 06, 2022@10:35 Req Phys: MODESTA VILLANUEVA Loc: [facility] WALK-IN (Re Img Loc: CT IMAGING Service: Unknown (Case 64 COMPLETE) CT HEAD/BRAIN W/O CONTRAST (C T Detailed) CPT:42003 Reason for Study: falls, blood thinner, AMS, se izure Clinical History: falls, blood thinner, AMS, seizure [place] IS under investigation (PUI) for COVID- 19 or is COVID-19+ Defer to radiologist for final CT protocol. Responsible provider name and phone number to n otify for critical findings if other than user placing the order a nd pager listed below: User placing orders pager: [phone] LAST 3: Collection DT Specimen Test Name [...] ESTIMATED GFR(eGF 44 L Ref: >=60 Allergies: ([place] only) SIMVASTATIN (Feb 29, 2004) CEPHALEXIN (Mar 01, 2004) To see allergies from all [facility] locations click Re ports tab>Remote Data>All Available Sites>Clinical Reports>Aller gies. Report Status: Verified Date Reported: MAY 06, 2022 Date Verified: MAY 06, 2022 Cook Pressure E-Sig: Report: CT HEAD/BRAIN W/O CONTRAST Clinical History: falls, blood thinner, AMS, se izure Number of Images: 532 Comparison: 03/12/2022 Technique: The study was protocoled and supervi sed at the local [facility]. [facility] of the head without contrast. I mages were subsequently received by the [place] National Telera diology Program (NTP) for interpretation. [...] T findings. READING PHYSICIAN: Eduin Donaldson M.D. -[phone] 05/06/2022 12:30 [facility] National Teleradiology Program [phone] (For Medical Practitioner Use Only ) Attention Patients / Veterans: If you have ques tions or concerns about these test results, please contact your o rdering provider or primary care team. Primary Interpreting Staff: RADIOLOGY,OUTSIDE SERVICE, Staff Physician / May 06, 2022 10:35 CT CERVICAL SPINE W/O CONTRAST: RADIOLOGY,OUT SIDE [facility] AM LUISANA EDDY [id number] -1935 M SERVICE Exm Date: MAY 06, 2022@10:35 Req Phys: MODESTA VILLANUEVA Loc: [facility] WALK-IN (Re Img Loc: CT IMAGING Service: Unknown (Case 65 COMPLETE) CT CERVICAL SPINE W/O CONTRAS T (CT Detailed) CPT:29576 Reason for Study: falls, blood thinner, AMS, se izure Clinical History: falls, blood thinner, AMS, seizure IS under investigation (PUI) for COVID- 19 or is COVID-19+ Defer to radiologist for final CT protocol. Responsible provider name and phone number to n otify for critical findings if other than user placing the order a nd pager listed below: User placing orders pager: [phone] LAST 3: Collection DT Specimen Test Name [...] ESTIMATED GFR(eGF 44 L Ref: >=60 Allergies: ([place] only) SIMVASTATIN (Feb 29, 2004) CEPHALEXIN (Mar 01, 2004) To see allergies from all [place] locations click Re ports tab>Remote Data>All Available Sites>Clinical Reports>Aller gies. Report Status: Verified Date Reported: MAY 06, 2022 Date Verified: MAY 06, 2022 Cook Pressure E-Sig: Report: CT CERVICAL SPINE W/O CONTRAST HISTORY:falls, blood thinner, AMS, seizure NUMBER OF IMAGES:770 COMPARISON: None available. TECHNIQUE: A non contrast CT of the cervical sp ine was performed at the local [place]. Images were subsequently sent to [facility] for interpretation. Axial, coronal and sagittal [...] findings, above. READING PHYSICIAN: Eduin Donaldson M.D. -[phone] 05/06/2022 12:33 [facility] National Teleradiology Program [phone] (For Medical Practitioner Use Only ) Attention [...] the Encounter. The data comes from all [place] treatment facilities. Date/Time Pathology Report Provider Source May 09, 2022 05:30 AM LR MICROBIOLOGY REPORT: [facility] Reporting Lab: [facility] [CLIA# [id number]] [place] [address] Accession [UID]: [id number] [[id number]] Receiv ed: May 09, 2022@01:35 Collection sample: BLOOD Collection date: Apr 05:30 Provider: CODIE LEON Comment on specimen: LEFT ARM, RECEIVED 2 BLOOD CULTURE BOTTLES Test(s) ordered: CULTURE & SUSCEPTIBILITY...... 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 R TRIMETH/SULFA................. S TETRACYCLINE.................. S CLINDAMYCIN................... S RIFAMPIN...................... S VANCOMYCIN.................... S Bacteriology Remark(s): VANCOMYCIN SHAMIKA: <=0.5 ug/mL THIS REPORT IS FINAL =--=--=--=--=--=--=--=--=--=--=--=--=--= --=--=--=--=--=--=--=--=--=--=--=--=-- Performing Laboratory: Bacteriology Report Performed By: [facility] [CLIA# [id number]] [place] [address] May 08, 2022 03:23 PM LR MICROBIOLOGY REPORT: [facility] Reporting Lab: [facility] [CLIA# [id number]] [place] [address] Accession [UID]: [id number] [[id number]] Receiv ed: May 08, 2022@15:41 Collection sample: BLOOD Collection date: Apr 15:23 Provider: CODIE LEON Comment on specimen: LEFT ARM, RECEIVED 2 BLOOD CULTURE BOTTLES Test(s) ordered: CULTURE & SUSCEPTIBILITY...... completed: May 10, 2022 * BACTERIOLOGY FINAL REPORT => May 10, 2022 16:3 1 TECH CODE: [id number] CULTURE RESULTS: GROWTH SAME THAT OF ANOTHER CULTURE Comment: FOR SUSCEPTIBILITY REPORT SEE PREVIOUS POSITIVE SAME MB 22 [id number] ( 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 from Anaerobic bottle ) ( Recovered from Aerobic bottle ) Bacteriology Remark(s): THIS REPORT IS FINAL =--=--=--=--=--=--=--=--=--=--=--=--=--= --=--=--=--=--=--=--=--=--=--=--=--=-- Performing Laboratory: Bacteriology Report Performed By: [facility] [CLIA# [id number]] [place] [address] May 08, 2022 03:21 PM LR MICROBIOLOGY REPORT: [facility] Reporting Lab: [facility] [CLIA# [id number]] [place] [address] Accession [UID]: [id number] [[id number]] Receiv ed: May 08, 2022@15:40 Collection sample: BLOOD Collection date: Apr 15:21 Provider: CODIE LEON Comment on specimen: RT ARM, RECEIVED 2 BLOOD CU LTURE BOTTLES Test(s) ordered: CULTURE & SUSCEPTIBILITY...... completed: May 10, 2022 * BACTERIOLOGY FINAL REPORT => May 10, 2022 16:3 1 TECH CODE: [id number] CULTURE RESULTS: GROWTH SAME THAT OF ANOTHER CULTURE Comment: FOR SUSCEPTIBILITY REPORT SEE PREVIOUS POSITIVE SAME MB 22 65340 ( 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 from Anaerobic bottle ) ( Recovered from Aerobic bottle ) Bacteriology Remark(s): THIS REPORT IS FINAL =--=--=--=--=--=--=--=--=--=--=--=--=--= --=--=--=--=--=--=--=--=--=--=--=--=-- Performing Laboratory: Bacteriology Report Performed By: [facility] [CLIA# [id number]] [place] [address] May 07, 2022 05:30 AM LR MICROBIOLOGY REPORT: [facility] Reporting Lab: [facility] [CLIA# [id number]] [place] [address] Accession [UID]: [id number] [[id number]] Receiv ed: May 07, 2022@01:35 Collection sample: [...] REPORT SEE PREVIOUS POSITIVE SAME MB 22 35164 ( 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 from Aerobic bottle ) ( Recovered from Anaerobic bottle ) Bacteriology Remark(s): THIS REPORT IS FINAL =--=--=--=--=--=--=--=--=--=--=--=--=--= --=--=--=--=--=--=--=--=--=--=--=--=-- Performing Laboratory: Bacteriology Report Performed By: [facility] [CLIA# [id number]] [place] [address] May 06, 2022 10:51 AM LR MICROBIOLOGY REPORT: [facility] Reporting Lab: [facility] [CLIA# [id number]] [place] [address] Accession [UID]: [id number] [[id number]] Receiv ed: May 06, 2022@11:32 Collection sample: [...] Performing Laboratory: Bacteriology Report Performed By: [facility] [CLIA# [id number]] [place] [address] May 06, 2022 10:34 AM LR MICROBIOLOGY REPORT: [facility] Reporting Lab: [facility] [CLIA# [id number]] [place] [address] Accession [UID]: [id number] [[id number]] Receiv ed: May 06, 2022@10:51 Collection sample: BLOOD Collection date: Apr 10:34 Provider: MODESTA VILLANUEVA Comment on specimen: RECEIVED 2 BLOOD CULTURE MILAN TTLES RAC Test(s) ordered: CULTURE & SUSCEPTIBILITY...... 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 [...] Performing Laboratory: Bacteriology Report Performed By: [facility] [CLIA# [id number]] [place] [address] May 06, 2022 10:00 AM LR MICROBIOLOGY REPORT: [facility] Reporting Lab: [facility] [CLIA# [id number]] [place] [address] Accession [UID]: [id number] [[id number]] Receiv ed: May 06, 2022@10:41 Collection sample: [...] SUSCEPTIBILITY REPORT SEE PREVIOUS POSITIVE SAME 22 53719 ( 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 from Anaerobic bottle ) ( Recovered from Aerobic bottle ) Bacteriology Remark(s): THIS REPORT IS FINAL =--=--=--=--=--=--=--=--=--=--=--=--=--= --=--=--=--=--=--=--=--=--=--=--=--=-- Performing Laboratory: Bacteriology Report Performed By: [facility] [CLIA# [id number]] [place] [address] Encounter Notes: All associated encounter notes This section contains the clinical notes associated to the Encounter. Date/Time Encounter Note(s) Provider Source May 06, 2022 01:00 AM CRITICAL CARE UNIT NOTE: [facility] LOCAL TITLE: [facility] RESPIRATORY THERAPY FLOWSHEET STANDARD TITLE: CRITICAL CARE UNIT NOTE DATE OF NOTE: MAY 06, 2022@01:00 ENTRY DATE: MAY 07, 2022@15:02:56 AUTHOR: FELECIA GU EXP COSIGNER: URGENCY: STATUS: COMPLETED This is a place chan only. Please see VISTA aging to view document. /es/ FELECIA SYSTEM ICU DOCUMENT IMPORT Signed: 05/07/2022 15:02
--- OUTSIDE RECORDS SUMMARY | 2022-05-15 09:31 | XMS_ITS ---
DAILY HOSPITALIZATION DATA [facility] Encounter Summary Created on:May 07, 2022 Patient:LUISANA EDDY Sex:Male :1935 Author Organization Department [facility] rs Address [address] [place] [address] Support Name Relationship Address Phone WADE LORENZO Unavailable [id number] [place] [address] WADE LORENZO Unavailable [address] [place] [address] TREYGEORGE ARACELI Unavailable [address] [place] [address] GOGEORGE ARACELI Unavailable [address] [place] [address] Insurance Providers: All historical and current Section [...] [place] M[place] Aug 19, [id number] Kristel EDDY [facility] (WNR) ADVANTAGE (WNR) 2016 8 [id number] [phone] [facility] 1 [place] MEDICARE M[place] Aug 19, [id number] Kristel EDDY [facility] (WNR) ADVANTAGE (WNR) 2017 03 [id number] [phone] [facility] 1 Selected Encounter This section includes the information on record at [place] for the Encounter. Date/Time Encounter Type Encounter Description Reason Provider Source May 07, 2022 Inpatient Visit DAILY HOSPITALIZATION JUAN ANTONIO SARAVIA 04:27 PM DATA [facility] Encounter Template Text not used by CO Plan of Treatment: Future Appointments (+ 6 months) and Future Tests (+/- 45 days) The Plan of Treatment section includes future care activities for the [facility] This section includes future appointments [...] The data comes from all [place] treatment [facility]. Test Date/Time Test Type Test Details Facility Name Apr 30, 2022 08:21 Laboratory - Chemistry URINALYSIS URINE WC ON CE [facility] AM Order Apr 30, 2022 08:21 Laboratory - CULTURE & SUSCEPTIBILITY [facility] AM Microbiology Order URINE WC May 06, 2022 12:00 Laboratory - Blood ABO/RH - LAB BLOOD [facility] AM Bank Order May 06, 2022 10:11 Laboratory - Blood TYPE & SCREEN - LAB [facility] AM Bank Order BLOOD WC May 06, 2022 10:27 Pharmacy [facility] AM Medication Order May 06, 2022 10:28 [facility] AM Infusion Order May 06, 2022 10:34 [facility] AM Infusion Order May 06, 2022 10:41 [facility] AM Infusion Order May 06, 2022 12:15 [facility] PM Medication Order May 06, 2022 01:31 [facility] PM Medication Order May 06, 2022 04:49 [facility] PM Medication Order May 07, 2022 01:00 Laboratory - CULTURE & SUSCEPTIBILITY [facility] PM Microbiology Order BLOOD WC ONCE May 11, 2022 09:07 Laboratory - CULTURE & SUSCEPTIBILITY [facility] AM Microbiology Order BLOOD WC May 11, 2022 09:07 Laboratory - CULTURE & SUSCEPTIBILITY [facility] AM Microbiology Order BLOOD WC May 11, 2022 09:38 Laboratory - Chemistry EOSINOPHIL SMEAR,URINE [facility] AM Order URINE WC ONCE May 11, 2022 09:38 Laboratory - Chemistry URINALYSIS URINE WC ON CE [facility] AM Order May 11, 2022 09:38 Laboratory - Chemistry FENA URINE WC ONCE MIN [facility] AM Order Lab Results: +/- 30 [...] Reference Range Comment May 11, 2022 11:13 [facility] FINGERSTICK GLUCOSE Speci men Type: BLOOD AM Comment: Mark casillas Nurse Notified Ordering Provid er: CODIE LEON Report Released Date/Time: May 11, 2022 11:53 AM Reporting Lab: [facility] [address] [facility] [address] Performing Lab: [employer] [address] [facility] [address] FINGERSTICK GLUCOSE 367 H 70-100 May 11, 2022 07:05 AM [facility] CK,TOTAL Specim en Type: PLASMA No comment enter ed. Ordering Provid er: CODIE LEON Report Released Date/Time: May 11, 2022 09:08 AM Reporting Lab: [facility] [address] [facility] [address] Performing [facility]: [facility] [address] CK,TOTAL 16 L 39-208 May 11, 2022 07:05 [facility] BASIC METABOLIC Specimen Type: PLASMA AM PANEL+MG No comment enter ed. Ordering Provid er: OG DIAL Report Released Date/Time: May 11, 2022 04:46 AM Reporting Lab: [facility] [address] [facility] [address] Performing Lab: [facility] [address] CREATININE 1.6 H 0.7-1.2 UREA NITROGEN 28 H 8-26 GLUCOSE 396 H 70-100 SODIUM 150 H 136-145 POTASSIUM 3.7 3.5-5.1 CHLORIDE 120 H 98-107 CO2 23 22-29 CALCIUM 8.4 8.4-10.2 MAGNESIUM 2.1 1.6-2.6 ANION GAP 7 5-15 CREAT EGFR(CKD-EPI) 42 L >60 May 11, 2022 07:05 [facility] LIVER FUNCTION TESTS Spec imen Type: PLASMA AM No comment enter ed. Ordering Provid er: CODIE LEON Report Released Date/Time: May 11, 2022 09:08 AM Reporting Lab: [facility] [address] [facility] [address] Performing Lab: [facility] [address] [facility] [address] BILIRUBIN, TOTAL 1.6 H 0.2-1.2 ALKALINE PHOSPHATASE 102 40-150 ALT/SGPT 42 <55 AST/SGOT 30 <34 GAMMA GTP 52 <64 DIR. BILIRUBIN 1.2 H <0.5 May 11, 2022 07:05 AM [facility] BNP Specim en Type: PLASMA No comment enter ed. Ordering Provid er: CODIE LEON Report Released Date/Time: May 11, 2022 09:15 AM Reporting Lab: [facility] [address] [facility] [address] Performing Lab: [facility] [address] [facility] [address] BNP 59 <99 May 11, 2022 07:05 AM [facility] CBC Specim en Type: BLOOD No comment enter ed. Ordering Provid er: OG DIAL Report Released Date/Time: May 11, 2022 04:46 AM Reporting Lab: [facility] [address] [facility] [address] Performing Lab: [facility] [address] [facility] [address] WBC 15.93 H 4.0-11.0 RBC 3.60 L 4.6-6.2 HGB 11.2 L 13.5-17.9 HCT 35.3 L 41-54 MCV 98.1 80-100 MCH 31.1 27-33 MCHC 31.7 L 32.0-37.5 PLT 231 150-400 MPV 11.2 H 7.4-10.4 RDW 15.2 H 11.5-14.5 May 11, 2022 06:14 [facility] FINGERSTICK GLUCOSE Speci men Type: BLOOD AM Comment: Mark casillas Nurse Notified Ordering Provid er: CODIE LEON Report Released Date/Time: May 11, 2022 06:42 AM Reporting Lab: [facility] [address] [facility] [address] Performing Lab: [facility] [address] [facility] [address] FINGERSTICK GLUCOSE 345 H 70-100 May 11, 2022 02:24 [facility] FINGERSTICK GLUCOSE Speci men Type: BLOOD AM Comment: Mark casillas Ordering Provid er: CODIE LEON Report Released Date/Time: May 11, 2022 02:44 AM Reporting Lab: [facility] [address] [facility] [address] Performing Lab: [facility] [address] [facility] [address] FINGERSTICK GLUCOSE 375 H 70-100 May 10, 2022 08:38 [facility] FINGERSTICK GLUCOSE Speci men Type: BLOOD PM Comment: Mark casillas Ordering Provid er: CODIE LEON Report Released Date/Time: May 11, 2022 12:31 AM Reporting Lab: [facility] [address] [facility] [address] Performing Lab: [facility] [address] [facility] [address] FINGERSTICK GLUCOSE 346 H 70-100 May 10, 2022 05:05 [facility] FINGERSTICK GLUCOSE Speci men Type: BLOOD PM Comment: Mark casillas Nurse Notified Ordering Provid er: CODIE LEON Report Released Date/Time: May 10, 2022 11:50 PM Reporting Lab: [facility] [address] [facility] [address] Performing Lab: [facility] [address] [facility] [address] FINGERSTICK GLUCOSE 245 H 70-100 May 10, 2022 02:00 [facility] VANCOMYCIN (TROUGH) Speci men Type: PLASMA PM No comment enter ed. Ordering Provid er: CODIE LEON Report Released Date/Time: May 11, 2022 01:34 AM Reporting Lab: [facility] [address] [facility] [address] Performing Lab: [facility] [address] [facility] [address] VANCOMYCIN (TROUGH) 31.8 H 10.0-15.0 May 10, 2022 [facility] BASIC METABOLIC Specimen Typ e: PLASMA 02:00 PM PANEL+MG No comment enter ed. Ordering Provid er: CODIE LEON Report Released Date/Time: May 11, 2022 01:34 AM Reporting Lab: [facility] [address] Performing Lab: [facility] [address] CREATININE 1.1 .7-1.2 UREA NITROGEN 22 8-26 GLUCOSE 279 H 70-100 SODIUM 150 H 136-145 POTASSIUM 3.2 L 3.5-5.1 CHLORIDE 116 H 98-107 CO2 23 22-29 CALCIUM 8.5 8.4-10.2 MAGNESIUM 2.0 1.6-2.6 ANION GAP 11 5-15 CREAT EGFR(CKD-EPI) 65 >60 May 10, 2022 01:20 PM [facility] CBC & DIFF Specim en Type: BLOOD Comment: Automa nola Differential Performed Ordering Provid er: MD ESTEBAN Report Released Date/Time: May 10, 2022 08:52 PM Reporting Lab: [facility] [address] Performing Lab: [facility] [address] WBC 16.24 H 4.0-11.0 RBC 3.76 L [...] 0.28 H 0-0.1 May 10, 2022 11:07 [facility] FINGERSTICK GLUCOSE Speci men Type: BLOOD AM Comment: Mark casillas Nurse Notified Ordering Provid er: CODIE LEON Report Released Date/Time: May 11, 2022 12:31 AM Reporting Lab: [facility] [address] [facility] [address] Performing Lab: [facility] [address] [facility] [address] FINGERSTICK GLUCOSE 253 H 70-100 May 10, 2022 06:16 [facility] FINGERSTICK GLUCOSE Speci men Type: BLOOD AM Comment: Mark casillas Nurse Notified Ordering Provid er: CODIE LEON Report Released Date/Time: May 10, 2022 11:50 PM Reporting Lab: [facility] [address] [facility] [address] Performing Lab: [facility] [address] [facility] [address] FINGERSTICK GLUCOSE 271 H 70-100 May 09, 2022 09:07 [facility] FINGERSTICK GLUCOSE Speci men Type: BLOOD PM Comment: Mark casillas Ordering Provid er: CODIE LEON Report Released Date/Time: May 10, 2022 11:50 PM Reporting Lab: [facility] [address] [facility] [address] Performing Lab: [facility] [address] [facility] [address] FINGERSTICK GLUCOSE 209 H 70-100 May 09, 2022 05:33 [facility] FINGERSTICK GLUCOSE Speci men Type: BLOOD PM Comment: Mark casillas Nurse Notified Ordering Provid er: CODIE LEON Report Released Date/Time: May 09, 2022 05:53 PM Reporting Lab: [facility] [address] [facility] [address] Performing Lab: [facility] [address] [facility] [address] FINGERSTICK GLUCOSE 251 H 70-100 May 09, 2022 02:09 [facility] VANCOMYCIN (PEAK) Specime n Type: SERUM PM No comment enter ed. Ordering Provid er: AMARIS DE JESUS Report Released Date/Time: May 09, 2022 09:33 AM Reporting Lab: [facility] [address] [facility] [address] Performing Lab: [facility] [address] [facility] [address] VANCOMYCIN (PEAK) 24.2 20.0-40.0 May 09, 2022 11:19 [facility] FINGERSTICK GLUCOSE Speci men Type: BLOOD AM Comment: Save R esult Nurse Notified Ordering Provid er: CODIE LEON Report Released Date/Time: May 09, 2022 11:38 AM Reporting Lab: [facility] [address] [facility] [address] Performing Lab: [facility] [address] FINGERSTICK GLUCOSE 240 H 70-100 May 09, 2022 08:13 [facility] VANCOMYCIN (TROUGH) Speci men Type: SERUM AM No comment enter ed. Ordering Provid er: AMARIS DE JESUS Report Released Date/Time: May 08, 2022 11:14 AM Reporting Lab: [facility] [address] [facility] [address] Performing Lab: [facility] [address] VANCOMYCIN (TROUGH) 16.1 H 10.0-15.0 May 09, 2022 05:33 AM [facility] CBC & DIFF Specim en Type: BLOOD Comment: Automa nola Differential Performed Ordering Provid er: CODIE LEON Report Released Date/Time: May 08, 2022 05:27 PM Reporting Lab: [facility] [address] [facility] [address] Performing Lab: [facility] [address] WBC 14.92 H 4.0-11.0 RBC 3.41 L [...] GRAN 0.16 H 0-0.1 May 09, 2022 [facility] COMPREHENSIVE METABOLIC Spec imen Type: PLASMA 05:32 AM PANEL+MG No comment enter ed. Ordering Provid er: CODIE LEON Report Released Date/Time: May 08, 2022 05:27 PM Reporting Lab: [facility] [address] [facility] [address] Performing Lab: [facility] [address] [facility] [address] CREATININE 1.2 0.7-1.2 UREA NITROGEN 25 8-26 [...] 59 L >60 May 09, 2022 05:16 [facility] FINGERSTICK GLUCOSE Speci men Type: BLOOD AM Comment: Mark casillas Nurse Notified Ordering Provid er: CODIE LEON Report Released Date/Time: May 09, 2022 07:27 AM Reporting Lab: [facility] [address] Per[facility]: [facility] [address] FINGERSTICK GLUCOSE 295 H 70-100 May 08, 2022 09:32 PM [facility] EXTRA MINT TUBE Specim en Type: PLASMA No comment enter ed. Ordering Provid er: MD ESTEBAN Report Released Date/Time: May 08, 2022 09:32 PM Reporting Lab: [facility] [address] [facility] [address] Performing Lab: [facility] [address] [facility] [address] EXTRA MINT TUBE RECEIVED May 08, 2022 09:32 PM [facility] EXTRA PURPLE TUBE Spec imen Type: BLOOD No comment enter ed. Ordering Provid er: MD ESTEBAN Report Released Date/Time: May 08, 2022 09:32 PM Reporting Lab: [facility] [address] [facility] [address] Performing Lab: [facility] [address] [facility] [address] EXTRA PURPLE TUBE RECEIVED May 08, 2022 09:32 [facility] EXTRA GOLD GEL TUBE Speci men Type: SERUM PM No comment enter ed. Ordering Provid er: MD ESTEBAN Report Released Date/Time: May 08, 2022 09:32 PM Reporting Lab: [facility] [address] [facility] [address] Performing Lab: [facility] [address] [facility] [address] EXTRA GOLD GEL TUBE RECEIVED May 08, 2022 09:32 PM [facility] EXTRA BLUE TUBE Specim en Type: PLASMA No comment enter ed. Ordering Provid er: MD ESTEBAN Report Released Date/Time: May 08, 2022 09:32 PM Reporting Lab: [facility] [address] [facility] [address] Performing Lab: [facility] [address] [facility] [address] EXTRA BLUE TUBE RECEIVED May 08, 2022 09:32 PM [facility] EXTRA BRASWELL TUBE Specim en Type: PLASMA No comment enter ed. Ordering Provid er: MD ESTEBAN Report Released Date/Time: May 08, 2022 09:37 PM Reporting Lab: [facility] [address] [facility] [address] Performing Lab: [facility] [address] [facility] [address] EXTRA BRASWELL TUBE RECEIVED May 08, 2022 09:32 PM [facility] LACTIC ACID Specim en Type: PLASMA No comment enter ed. Ordering Provid er: OG DIAL Report Released Date/Time: May 08, 2022 09:49 PM Reporting Lab: [facility] [address] [facility] [address] Performing Lab: [facility] [address] [facility] [address] LACTIC ACID 2.5 H 0.5-2.2 May 08, 2022 09:32 PM [facility] BNP Specim en Type: PLASMA No comment enter ed. Ordering Provid er: OG DIAL Report Released Date/Time: May 08, 2022 09:50 PM Reporting Lab: [facility] [address] [facility] [address] Performing Lab: [facility] [address] [facility] [address] BNP 897 H <99 May 08, 2022 09:32 PM [facility] CBC Specim en Type: BLOOD No comment enter ed. Ordering Provid er: OG DIAL Report Released Date/Time: May 08, 2022 09:50 PM Reporting Lab: [facility] [address] Performing Lab: [facility] [address] WBC 18.54 H 4.0-11.0 RBC 3.68 L 4.6-6.2 HGB 11.5 L 13.5-17.9 HCT 35.1 L 41-54 MCV 95.4 80-100 MCH 31.3 27-33 MCHC 32.8 32.0-37.5 PLT 221 150-400 MPV 11.1 H 7.4-10.4 RDW 14.9 H 11.5-14.5 May 08, 2022 09:32 PM [facility] BLOOD GASES Specim en Type: VENOUS BLOOD Comment: O2 THE RAPY = 3L PM Ordering Provid er: OG DIAL Report Released Date/Time: May 08, 2022 09:50 PM Reporting Lab: [facility] [address] Performing Lab: [facility] [address] PH 7.36 7.33-7.43 PCO2 47 41-51 BICARBONATE 24.4 21.0-30.0 PO2 31 L 35-40 OXYGEN SATURATION 54.7 L 70.0-75.0 PH(TEMP CORRECTED) 7.37 7.33-7.43 PCO2(TEMP CORRECTED) 46 41-51 PO2(TEMP CORRECTED) 31 L 35-40 PATIENT TEMPERATURE 36.7 May 08, 2022 [facility] COMPREHENSIVE METABOLIC Spec imen Type: PLASMA 09:32 PM PANEL+MG No comment enter ed. Ordering Provid er: OG DIAL Report Released Date/Time: May 08, 2022 09:50 PM Reporting Lab: [facility] [address] Performing Lab: [facility] [address] CREATININE 1.3 H 0.7-1.2 UREA NITROGEN 26 [...] 54 L >60 May 08, 2022 08:27 [facility] FINGERSTICK GLUCOSE Speci men Type: BLOOD PM Comment: Mark casillas Nurse Notified Ordering Provid er: CODIE LEON Report Released Date/Time: May 08, 2022 08:55 PM Reporting Lab: [facility] [address] [facility] [address] Performing Lab: [facility] [address] [facility] [address] FINGERSTICK GLUCOSE 272 H 70-100 May 08, 2022 06:56 [facility] FINGERSTICK GLUCOSE Speci men Type: BLOOD PM Comment: Mark casillas Ordering Provid er: CODIE LEON Report Released Date/Time: May 08, 2022 07:08 PM Reporting Lab: [facility] [address] [facility] [address] Performing Lab: [facility] [address] [facility] [address] FINGERSTICK GLUCOSE 262 H 70-100 May 08, 2022 04:50 [facility] FINGERSTICK GLUCOSE Speci men Type: BLOOD PM Comment: Nurse Notified Ordering Provid er: CODIE LEON Report Released Date/Time: May 08, 2022 05:14 PM Reporting Lab: [facility] [address] [facility] [address] Performing Lab: [facility] [address] [facility] [address] FINGERSTICK GLUCOSE 330 H 70-100 May 08, 2022 11:21 [facility] FINGERSTICK GLUCOSE Speci men Type: BLOOD AM Comment: Mark casillas Nurse Notified Ordering Provid er: CODIE LEON Report Released Date/Time: May 08, 2022 11:51 AM Reporting Lab: [facility] [address] [facility] [address] Performing Lab: [facility] [address] [facility] [address] FINGERSTICK GLUCOSE 231 H 70-100 May 08, 2022 07:25 AM [facility] CBC & DIFF Specim en Type: BLOOD Comment: Automa nola Differential Performed Ordering Provid er: BETO AYALA Report Released Date/Time: May 07, 2022 12:28 PM Reporting Lab: [facility] [address] Performing Lab: [facility] [address] [facility] [address] WBC 16.29 H 4.0-11.0 RBC 3.38 L [...] GRAN 0.26 H 0-0.1 May 08, 2022 [facility] PROTHROMBIN TIME/INR Specime n Type: PLASMA 07:25 AM No comment enter ed. Ordering Provid er: BETO AYALA Report Released Date/Time: May 07, 2022 12:28 PM Reporting Lab: [facility] [address] [facility] [address] Performing Lab: [facility] [address] .INR 1.2 H 0.8-1.1 .PT 14.2 H 9.4-12.5 May 08, 2022 [facility] COMPREHENSIVE METABOLIC Spec imen Type: PLASMA 07:25 AM PANEL+MG No comment enter ed. Ordering Provid er: BETO AYALA Report Released Date/Time: May 07, 2022 12:28 PM Reporting Lab: [facility] [address] [facility] [address] Performing Lab: [facility] [address] CREATININE 1.1 0.7-1.2 UREA NITROGEN 27 H [...] EGFR(CKD-EPI) 65 >60 May 08, 2022 06:53 [facility] FINGERSTICK GLUCOSE Speci men Type: BLOOD AM Comment: Save R esel Ordering Provid er: CODIE LEON Report Released Date/Time: May 08, 2022 07:18 AM Reporting Lab: [facility] [address] [facility] [address] Performing Lab: [facility] [address] [facility] [address] FINGERSTICK GLUCOSE 276 H 70-100 May 07, 2022 08:36 [facility] FINGERSTICK GLUCOSE Speci men Type: BLOOD PM Comment: Nurse Notified Ordering Provid er: CODIE LEON Report Released Date/Time: May 08, 2022 12:29 AM Reporting Lab: [facility] [address] [facility] [address] Performing Lab: [facility] [address] [facility] [address] FINGERSTICK GLUCOSE 282 H 70-100 May 07, 2022 07:04 PM [facility] LACTIC ACID Specim en Type: PLASMA No comment enter ed. Ordering Provid er: BETO AYALA Report Released Date/Time: May 07, 2022 06:28 PM Reporting Lab: [facility] [address] [facility] [address] Performing Lab: [facility] [address] [facility] [address] LACTIC ACID 2.0 0.5-2.2 May 07, 2022 04:46 [facility] FINGERSTICK GLUCOSE Speci men Type: BLOOD PM Comment: Nurse Notified Ordering Provid er: BETO AYALA Report Released Date/Time: May 07, 2022 05:00 PM Reporting Lab: [facility] [address] [facility] [address] Performing Lab: [facility] [address] [facility] [address] FINGERSTICK GLUCOSE 274 H 70-100 May 07, 2022 12:47 [facility] FINGERSTICK GLUCOSE Speci men Type: BLOOD PM Comment: Mark casillas Nurse Notified Ordering Provid er: BETO AYALA Report Released Date/Time: May 07, 2022 05:32 PM Reporting Lab: [facility] [address] [facility] [address] Performing Lab: [facility] [address] [facility] [address] FINGERSTICK GLUCOSE 309 H 70-100 May 07, 2022 06:35 [facility] FINGERSTICK GLUCOSE Speci men Type: BLOOD AM Comment: Mark casillas Nurse Notified Ordering Provid er: GAYLA DOMINGUEZ Report Released Date/Time: May 07, 2022 06:46 AM Reporting Lab: [facility] [address] [facility] [address] Performing Lab: [facility] [address] [facility] [address] FINGERSTICK GLUCOSE 352 H 70-100 May 07, 2022 06:15 AM [facility] ALBUMIN Specim en Type: PLASMA No comment enter ed. Ordering Provid er: GAYLA DOMINGUEZ Report Released Date/Time: May 06, 2022 06:33 PM Reporting Lab: [facility] [address] [facility] [address] Performing Lab: [facility] [address] [facility] [address] ALBUMIN 3.0 L 3.5-5.2 May 07, 2022 [facility] COMPREHENSIVE METABOLIC Spec imen Type: PLASMA 06:15 AM PANEL+MG No comment enter ed. Ordering Provid er: GAYLA DOMINGUEZ Report Released Date/Time: May 06, 2022 09:11 PM Reporting Lab: [facility] [address] [facility] [address] Performing Lab: [facility] [address] [facility] [address] CREATININE 1.2 0.7-1.2 UREA NITROGEN 25 8-26 [...] L >60 May 07, 2022 06:15 AM [facility] CBC & DIFF Specim en Type: BLOOD Comment: Manual Differential Performed Ordering Provid er: GAYLA DOMINGUEZ Report Released Date/Time: May 06, 2022 09:11 PM Reporting Lab: [facility] [address] [facility] [address] Performing Lab: [facility] [address] [facility] [address] WBC 20.25 H 4.0-11.0 RBC 3.54 L [...] NORMOCYTIC, NORMOCHROMIC May 07, 2022 12:19 AM [facility] LACTIC ACID Specim en Type: PLASMA No comment enter ed. Ordering Provid er: GAYLA DOMINGUEZ Report Released Date/Time: May 06, 2022 07:13 PM Reporting Lab: [facility] [address] [facility] [address] Performing Lab: [facility] [address] [facility] [address] LACTIC ACID 2.7 H 0.5-2.2 May 06, 2022 10:45 [facility] FINGERSTICK GLUCOSE Speci men Type: BLOOD PM Comment: Save R esult Nurse Notified Ordering Provid er: GAYLA DOMINGUEZ Report Released Date/Time: May 07, 2022 12:08 AM Reporting Lab: [facility] [address] [facility] [address] Performing Lab: [facility] [address] [facility] [address] FINGERSTICK GLUCOSE 320 H 70-100 May 06, 2022 06:53 [facility] MRSA SURVL NARES Specimen Type: NARES PM DNA No comment enter ed. Ordering Provid er: GAYLA DOMINGUEZ Report Released Date/Time: May 06, 2022 06:33 PM Reporting Lab: [facility] [address] [facility] [address] Performing Lab: [facility] [address] [facility] [address] MRSA SURVL NARES DNA POSITIVE HH Negative May 06, 2022 06:51 PM [facility] LACTIC ACID Specim en Type: PLASMA No comment enter ed. Ordering Provid er: GAYLA DOMINGUEZ Report Released Date/Time: May 06, 2022 06:04 PM Reporting Lab: [facility] [address] [facility] [address] Performing Lab: [facility] [address] [facility] [address] LACTIC ACID 3.1 H 0.5-2.2 May 06, 2022 06:51 [facility] CARDIAC TROPONIN I Specim en Type: PLASMA PM No comment enter ed. Ordering Provid er: GAYLA DOMINGUEZ Report Released Date/Time: May 06, 2022 06:05 PM Reporting Lab: [facility] [address] [facility] [address] Performing Lab: [facility] [address] [facility] [address] CARDIAC TROPONIN I <0.028 <0.028 May 06, 2022 06:51 [facility] EXTRA GOLD GEL TUBE Speci men Type: SERUM PM No comment enter ed. Ordering Provid er: GAYLA DOMINGUEZ Report Released Date/Time: May 06, 2022 06:52 PM Reporting Lab: [facility] [address] [facility] [address] Performing Lab: [facility] [address] [facility] [address] EXTRA GOLD GEL TUBE RECEIVED May 06, 2022 06:51 [facility] C-REACTIVE PROTEIN Specim en Type: PLASMA PM No comment enter ed. Ordering Provid er: GAYLA DOMINGUEZ Report Released Date/Time: May 06, 2022 09:29 PM Reporting Lab: [facility] [address] [facility] [address] Performing Lab: [facility] [address] C-REACTIVE PROTEIN 392.40 H <5.00 May 06, 2022 10:51 AM [facility] URINALYSIS Specim en Type: URINE No comment enter ed. Ordering Provid er: MODESTA VILLANUEVA Report Released Date/Time: May 06, 2022 10:11 AM Reporting Lab: [facility] [address] Performing Lab: [facility] [address] URINE COLOR YELLOW SPECIFIC GRAVITY 1.020 1.003-1.035 [...] ESTERASE 500 NEGATIVE May 06, 2022 10:24 [facility] COVID-19 DIAGNOSTIC Speci men Type: NASOPHARYNGEAL AM PANEL (CEPHEID) Comment: Cephei jessica GeneXpert (618) Ordering Provid er: MODESTA VILLANUEVA Report Released Date/Time: May 06, 2022 10:11 AM Reporting Lab: [facility] [address] Performing Lab: [facility] [address] COVID-19 (CEPHEID) Not Detected Not Dete cted May 06, 2022 10:20 AM [facility] POC ABG/LACTATE Specim en Type: VENOUS BLOOD No comment enter ed. Ordering Provid er: MODESTA VILLANUEVA Report Released Date/Time: May 06, 2022 10:22 AM Reporting Lab: [facility] [address] Performing Lab: [facility] [address] POC PH 7.410 7.31-7.41 POC PCO2 28.9 L 35.00-45.00 POC PO2 82 H 35.0-40.0 POC TCO2 19 L 24.0-29.0 POC HCO3 18.3 L 23.0-28.0 POC BE ECT -6 L -2 POC SO2 96 H 70-75 POC LACTATE 3.62 0.90-1.70 May 06, 2022 10:00 AM [facility] PHOSPHORUS Specim en Type: PLASMA No comment enter ed. Ordering Provid er: MODESTA VILLANUEVA Report Released Date/Time: May 06, 2022 10:11 AM Reporting Lab: [facility] [address] [facility] [address] Performing Lab: [facility] [address] [facility] [address] PHOSPHORUS 2.5 2.3-4.7 May 06, 2022 10:00 [facility] PROTHROMBIN TIME/INR Spec imen Type: PLASMA AM No comment enter ed. Ordering Provid er: MODESTA VILLANUEVA Report Released Date/Time: May 06, 2022 10:11 AM Reporting Lab: [facility] [address] [facility] [address] Performing Lab: [facility] [address] [facility] [address] .INR 2.5 H 0.8-1.1 .PT 29.2 H 9.4-12.5 May 06, 2022 10:00 [facility] ACT PART THROMBO TIME Spe cimen Type: PLASMA AM No comment enter ed. Ordering Provid er: MODESTA VILLANUEVA Report Released Date/Time: May 06, 2022 10:11 AM Reporting Lab: [facility] [address] [facility] [address] Performing Lab: [facility] [address] [facility] [address] APTT 37.8 H 25.1-36.5 May 06, 2022 10:00 [facility] CARDIAC TROPONIN I Specim en Type: PLASMA AM Comment: Critic al Value Reported To: BROOKS COTE 05-06-2022 @1053 BY MBImmanuel. Critical value report confirmed. Ordering Provid er: MODESTA VILLANUEVA Report Released Date/Time: May 06, 2022 10:11 AM Reporting Lab: [facility] [address] [facility] [address] Performing Lab: [facility] [address] [facility] [address] CARDIAC TROPONIN I 0.035 HH <0.028 May 06, 2022 10:00 AM [facility] PROCALCITONIN Specim en Type: PLASMA No comment enter ed. Ordering Provid er: MODESTA VILLANUEVA Report Released Date/Time: May 06, 2022 10:11 AM Reporting Lab: [facility] [address] [facility] [address] Performing Lab: [facility] [address] [facility] [address] PROCALCITONIN 22.29 H <0.09 May 06, 2022 10:00 AM [facility] LIPASE Specim en Type: PLASMA No comment enter ed. Ordering Provid er: MODESTA VILLANUEVA Report Released Date/Time: May 06, 2022 10:11 AM Reporting Lab: [facility] [address] [facility] [address] Performing Lab: [facility] [address] [facility] [address] LIPASE <4 <60 May 06, 2022 [facility] COMPREHENSIVE METABOLIC Spec imen Type: PLASMA 10:00 AM PANEL+MG Comment: Manual Differential Performed Ordering Provid er: MODESTA VILLANUEVA Report Released Date/Time: May 06, 2022 10:11 AM Reporting Lab: [facility] [address] [facility] [address] Performing Lab: [facility] [address] [facility] [address] CREATININE 1.3 H 0.7-1.2 UREA NITROGEN 25 [...] 54 L >60 May 06, 2022 10:00 [facility] EXTRA GOLD GEL TUBE Speci men Type: SERUM AM No comment enter ed. Ordering Provid er: LINNEA RAND Report Released Date/Time: May 06, 2022 10:25 AM Reporting Lab: [facility] [address] [facility] [address] Performing Lab: [facility] [address] [facility] [address] EXTRA GOLD GEL TUBE RECEIVED May 06, 2022 10:00 AM [facility] CBC & DIFF Specim en Type: BLOOD Comment: Manual Differential Performed Ordering Provid er: MODESTA VILLANUEVA Report Released Date/Time: May 06, 2022 10:11 AM Reporting Lab: [facility] [address] [facility] [address] Performing Lab: [facility] [address] [facility] [address] WBC 18.82 H 4.0-11.0 RBC 3.70 L [...] .RBC MORPHOLOGY PRESENT May 06, 2022 09:46 [facility] FINGERSTICK GLUCOSE Speci men Type: BLOOD AM Comment: Mark casillas Nurse Notified Ordering Provid er: MODESTA VILLANUEVA Report Released Date/Time: May 06, 2022 09:59 AM Reporting Lab: [facility] [address] [facility] [address] Performing Lab: [facility] [address] [facility] [address] FINGERSTICK GLUCOSE 369 H 70-100 Apr 30, 2022 09:17 AM [facility] CBC Specim en Type: BLOOD No comment enter ed. Ordering Provid er: BILL ROONEY Report Released Date/Time: Apr 30, 2022 08:21 AM Reporting Lab: [facility] [address] [facility] [address] Performing Lab: [facility] [address] [address] WBC 10.40 4.0-11.0 RBC 3.96 L 4.6-6.2 [...] 08:21 AM Reporting Lab: [facility] [address] Performing Lab: [facility] [address] CREATININE 1.2 0.7-1.2 UREA NITROGEN 26 8-26 [...] Source Pressure Rate Mass Index May 07 [facility] 2021 12:14 [facility] PM [facility] May 07 [facility] 2021 04:56 [facility] AM [facility] May 07 [facility]2021 03:23 [facility] May 07, 266.76 35 [facility] 2021 12:15 lb [facility] Social History: Smoking Status (Most current) and Tobacco Use (All prior to encounter date) This section includes the most current, and the historical, smoking and tobacco-related health factors from the [facility] where the Encounter took place.Current Smoking Status This section includes the most current smoking, or tobacco-related health factor, from the [place] facility where the Encounter took place. Date/Time Current Smoking Status Comment Facility Feb 02, 2022 09:30 AM CO-TOBACCO NEVER USED [facility] Tobacco Use History This section includes a history of the smoking, or tobacco- related health factors, that were collected on or before the date of the Encounter. The data comes from the [place] facility where the Encounter took place. Date/Time Smoking Status/Tobacco Use Comment [facility] Mar 22, 2021 07:45 AM VA-TOBACCO NEVER USED [place] [facility] Oct 02, 2019 10:02 AM VA-TOBACCO NEVER USED [place] [facility] [facility] May 21, 2018 09:05 AM CO-TOBACCO NEVER USED [place] [...] this document. The data comes from all [facility]. Date Advance Directives Provider Source Apr 18, 2018 ADVANCE DIRECTIVE JOVONLARISSA [facility] Apr 18, 2018 ADVANCE DIRECTIVE DISCUSSION LARISSA SIGALA [facility] December 23, 2017 CLINICAL WARNING FARHAT [facility] May 11, 2003 ADVANCE DIRECTIVE BERT CASILLAS [facility] Radiology Reports: +/- 30 days of the [...] 2022 09:46 CHEST 1 VIEW: SONJA OVALLES [facility] AM NELY EDDYMICHELE Rivera [id number] -1935 M Exm Date: MAY 11, 2022@09:46 Req Phys: CDOIE LEON Loc: OP Unknown /05-13-2022@05:05 Img Loc: MAIN X-RAY Service: [facility] OFFICE (Case [id number] COMPLETE) CHEST 1 VIEW (RAD Detailed) CPT:68559 Proc Modifiers : PORTABLE EXAM Reason for Study: resp distress Clinical History: [place] IS NOT under investigation for COVID-19 or is COVID-19 negative Respiratory distress Responsible provider name and phone number to notify for critical findings if other than u ser placing the order and pager listed below: User placing orde rs pager: [phone] cell LAST CREATININE 1.6 H (05/11/22) Report Status: Verified Date Reported: MAY 11, 2022 Date Verified: MAY 11, 2022 [employer] E-Sig:/ES/SONJA OVALLES MD Report: CHEST 1 VIEW [...] Primary Interpreting Staff: SONJA OVALLES MD, RADIOLOGIST ([employer]) /CDC May 10, 2022 03:49 CT HEAD (P): RADIOLOGY,OUTSIDE [facility] PM LUISANA EDDY [id number] -1935 M SERVICE Exm Date: MAY 10, 2022@15:49 Req Phys: CODIE LEON Loc: OP Unknown /05-13-2022@05:05 Img Loc: CT IMAGING Service: [facility] OFFICE (Case [id number] COMPLETE) CT HEAD/BRAIN W/O CONTRAST (CT Detailed) CPT:09270 Reason for Study: CHANGE IN MENTAL STATUS Clinical History: CHANGE IN MENTAL STATUS. ORDER ADMINISTRATIVELY ENTERED FOLLOWING SYSTEM OUTAGE. Report Status: Verified Date Reported: MAY 10, 2022 Date Verified: MAY 10, 2022 [employer] Associate E-Sig: Report: CT HEAD/BRAIN W/O CONTRAST [PRINTSET] [...] study. READING PHYSICIAN: Akash Mccoy M.D. -[phone] 05/10/2022 17:35 PDT [facility] National Teleradiology Program [phone] (For Medical Practitioner Use Only ) Attention Patients / Veterans: If you have ques tions or concerns about these test results, please contact your o rdering provider or primary care team. Primary Interpreting Staff: RADIOLOGY,OUTSIDE SERVICE, Staff Physician / May 08, 2022 07:45 CT T-SPINE (P): RADIOLOGY,OUTSIDE [facility] PM LUISANA EDDY [id number] 1935 M SERVICE Exm Date: MAY 08, 2022@19:45 Req Phys: MALINICODIECARMELITA Cornejo Loc: OP Unknown /05-13-2022@05:05 Im Loc: CT IMAGING Service: PRIMARY CARE - MED OFFICE (Case [id number] COMPLETE) CT SPINE THORACIC W/O CONTR AST (CT Detailed) CPT:20968 Reason for Study: mrsa bacteremia, spinal surge ry - r/o abscess or discitis Clinical History: [place] IS NOT under investigation for COVID-19 or is COVID-19 negative Defer to radiologist for final CT protocol. Responsible provider name and phone number to n otify for critical findings if other than user placing the order a nd pager listed below: User placing orders pager: [phone] LAST 3: Collection DT Specimen Test Name [...] GFR (eGF 44 L Ref: >=60 Allergies: ([facility] only) SIMVASTATIN (Feb 29, 2004) CEPHALEXIN (Mar 01, 2004) Report Status: Verified Date Reported: MAY 08, 2022 Date Verified: MAY 08, 2022 [employer] Associate E-Sig: Report: CT SPINE THORACIC W/O CONTRAST [PRINTSET] HISTORY:MRSA bacteremia NUMBER OF IMAGES:1151 COMPARISON: Correlation with images from recent CT abdomen and pelvis May 06, 2022 TECHNIQUE: A non contrast CT of the thoracic sp ine was performed [place] the local [place] Images were subsequently sent to [facility] [...] thoracic level. READING PHYSICIAN: Luisana Webb MD -[phone] 05/08/2022 19:20 PDT [facility] Teleradiology Program [phone] (For Medical Practitioner Use Only ) Attention Patients / Veterans: If you have ques tions or concerns about these test results, please contact your o rdering provider or primary care team. Primary Interpreting Staff: RADIOLOGY,OUTSIDE SERVICE, Staff Physician / May 08, 2022 04:48 CHEST 1 VIEW: RADIOLOGY,OUTSIDE [facility] PM LUISANA EDDY [id number] -1935 M SERVICE Exm Date: MAY 08, 2022@16:48 Req Phys: CODIE LEON Loc: OP Unknown /05-13-2022@05:05 Img Loc: MAIN X-RAY Service: PRIMARY CARE - MED OFFICE (Case [id number] COMPLETE) CHEST 1 VIEW (RAD Detailed) CPT:61376 Proc Modifiers : PORTABLE EXAM Reason for Study: dyspnea Clinical History: [place] IS NOT under investigation for COVID-19 or is COVID-19 negative acute worsening of dyspnea Responsible provider name and phone number to notify for critical findings if other than user placing the order and pager listed below: User placing orders pager: [phone] malini cell [phone] LAST CREATININE 1.1 (05/08/22) Report Status: Verified Date Reported: MAY 08, 2022 Date Verified: MAY 08, 2022 [employer] Associate E-Sig: Report: CHEST 1 VIEW HISTORY: dyspnea COMPARISON: 05/06/2022 TECHNIQUE: Frontal view(s) of the chest, submit nola to the [place] National Teleradiology Program (NTP) for interp retation. FINDINGS: Reduced lung volumes. Progressive cardiomegaly, and vascular congestion as well as diffuse interstitial prom inence with probable small effusions. Impression: Expiratory exam with findings of CHF and mild e santa READING PHYSICIAN: Nghia Menjivar M.D. -[phone] 05/08/2022 18:57 EDT [facility] Teleradiology Program [phone] (For Medical Practitioner Use Only ) Attention Patients / Veterans: If you have ques tions or concerns about these test results, please contact your o rdering provider or primary care team. Primary Interpreting Staff: RADIOLOGY,OUTSIDE SERVICE, Staff Physician / May 07, 2022 10:29 CT HEAD (P): SHANI POLANCO [facility] AM LUISANA EDDY [id number] -1935 M Exm Date: MAY 07, 2022@10:29 Req Phys: BETO AYALA Loc: OP Unknown/0 05-13-2022@05:05 Img Loc: CT IMAGING Service: PRIMARY CARE - MED OFFICE (Case [id number] COMPLETE) CT HEAD/BRAIN W/O CONTRAST ( CT Detailed) CPT:38804 Reason for Study: seizure noted at [facility] Clinical History: [place] IS NOT under investigation for COVID-19 or is COVID-19 negative Defer to radiologist for final CT protocol. Responsible provider name and phone number to n otify for critical findings if other than user placing the order a nd pager listed below: User placing orders pager: [phone] LAST 3: Collection DT Specimen Test Name [...] GFR (eGF 44 L Ref: >=60 Allergies: ([facility] only) SIMVASTATIN (Feb 29, 2004) CEPHALEXIN (Mar 01, 2004) Report Status: Verified Date Reported: MAY 07, 2022 Date Verified: MAY 07, 2022 [employer] Associate E-Sig:/ES/SHANI POLANCO MD Report: EXAM: CT HEAD/BRAIN [...] lis nola below: User placing orders pager: [phone] LAST 3: Collecti on DT Specimen Test [...] Primary Interpreting Staff: SHANI POLANCO MD, RADIOLOGIST ([employer] Associate) /Javed May 06, 2022 11:40 CHEST 1 VIEW: RADIOLOGY,OUTSIDE [facility] LUISANA EDDY [id number] -1935 M SERVICE Exm Date: MAY 06, 2022@11:40 Req Phys: MODESTA VILLANUEVA Loc: [facility] EMERGENCY DEPT WALK-IN (Re Img Loc: MAIN X-RAY Service: Unknown (Case 73 COMPLETE) CHEST 1 VIEW (RAD Detailed) C PT:06353 Proc Modifiers : PORTABLE EXAM Reason for Study: fever, back pain Clinical History: Reason for Exam: Severe Sepsis Pathway to Evalu ate Volume Status and Source of Sepsis [place] IS under investigation (PUI) for COVID- 19 or is COVID-19+ 86 yo M with fever, back pain Responsible provi violeta name and phone number to notify for critical findings if other than user placing the order and pager listed below: User placing orders pager: [phone] LAST CREATININE 1.2 (04/30/22) Report Status: Verified Date Reported: MAY 06, 2022 Date Verified: MAY 06, 2022 [employer] Associate E-Sig: Report: Technique: Frontal chest. No comparison Impression: Cardiac silhouette is mildly enlarged. There is mild pulmonary venous congestion. No definite pleural effusion . No pneumothorax seen. READING PHYSICIAN: Vern Donnelly M.D. -[phone] 07 05/06/2022 13:26 EDT [facility] National Teleradiology Program [phone] (For Medical Practitioner Use Only ) Attention Patients / Veterans: If you have ques tions or concerns about these test results, please contact your o rdering provider or primary care team. Primary Interpreting Staff: RADIOLOGY,OUTSIDE SERVICE, Staff Physician / May 06, 2022 10:36 CT (AP) ABDOMEN/PELVIS (P): RADIOLOGY,OUTSIDE [facility] LUISANA EDDY [id number] -1935 M SERVICE Exm Date: MAY 06, 2022@10:36 Req Phys: MODESTA VILLANUEVA Loc: [facility] EMERGENCY DEPT WALK-IN (Re Img Loc: CT IMAGING Service: Unknown (Case [id number] COMPLETE) CT (AP) ABDOMEN/PELVIS W CONT RAST(CT Detailed) CPT:03100 Reason for Study: fever, back pain Clinical [...] pager listed below: User placing orders pager: [phone] LAST 3: Collection DT Specimen Test Name [...] ESTIMATED GFR(eGF 44 L Ref: >=60 Allergies: ([facility] only) SIMVASTATIN (Feb 29, 2004) CEPHALEXIN (Mar 01, 2004) To see allergies from all [facility] locations click Re ports tab>Remote Data>All Available Sites>Clinical Reports>Aller gies. Report Status: Verified Date Reported: MAY 06, 2022 Date Verified: MAY 06, 2022 [employer] Associate E-Sig: Report: Exam: CT (AP) ABDOMEN/PELVIS W [...] findings, above. READING PHYSICIAN: Eduin Donaldson M.D. -[phone] 05/06/2022 12:48 [facility] Responsive Sportsradiology Program [phone] (For Medical Practitioner Use Only ) Attention Patients / Veterans: If you have ques tions or concerns about these test results, please contact your [facility] provider or primary care team. Primary Interpreting Staff: RADIOLOGY,OUTSIDE SERVICE, Staff Physician / May 06, 2022 10:35 CT HEAD/BRAIN W/O CONTRAST: RADIOLOGY,OUTSIDE [facility] LUISANA EDDY [id number] 1935 M SERVICE Exm Date: MAY 06, 2022@10:35 Req Phys: MODESTA VILLANUEVA Loc: [facility] EMERGENCY DEPT WALK-IN (Re Img Loc: CT IMAGING Service: Unknown (Case 64 COMPLETE) CT HEAD/BRAIN W/O CONTRAST (C T Detailed) CPT:36033 Reason for Study: falls, blood thinner, AMS, se izure Clinical History: falls, blood thinner, AMS, seizure IS under investigation (PUI) for COVID- 19 or is COVID-19+ Defer to radiologist for final CT protocol. Responsible provider name and phone number to n otify for critical findings if other than user placing the order a nd pager listed below: User placing orders pager: [phone] LAST 3: Collection DT Specimen Test Name [...] ESTIMATED GFR(eGF 44 L Ref: >=60 Allergies: ([facility] only) SIMVASTATIN (Feb 29, 2004) CEPHALEXIN (Mar 01, 2004) To see allergies from all [facility] locations click Re ports tab>Remote Data>All Available Sites>Clinical Reports>Aller gies. Report Status: Verified Date Reported: MAY 06, 2022 Date Verified: MAY 06, 2022 [employer] Associate E-Sig: Report: CT HEAD/BRAIN W/O CONTRAST Clinical [...] T findings. READING PHYSICIAN: Eduin Donaldson M.D. -[phone] 05/06/2022 12:30 [facility] National Teleradiology Program [phone] (For Medical Practitioner Use Only ) Attention Patients / Veterans: If you have ques tions or concerns about these test results, please contact [facility] provider or primary care team. Primary Interpreting Staff: RADIOLOGY,OUTSIDE SERVICE, Staff Physician / May 06, 2022 10:35 CT CERVICAL SPINE W/O CONTRAST: RADIOLOGY,OUT SIDE [facility] AM LUISANA EDDY [id number] -1935 M SERVICE Exm Date: MAY 06, 2022@10:35 Req Phys: MODESTA VILLANUEVA Loc: [facility] EMERGENCY DEPT WALK-IN (Re Img Loc: CT IMAGING Service: Unknown (Case 65 COMPLETE) CT CERVICAL SPINE W/O CONTRAS T (CT Detailed) CPT:43021 Reason for Study: falls, blood thinner, AMS, se izure Clinical History: falls, blood thinner, AMS, seizure IS under investigation (PUI) for COVID- 19 or is COVID-19+ Defer to radiologist for final CT protocol. Responsible provider name and phone number to n otify for critical findings if other than user placing the order a nd pager listed below: User placing orders pager: [phone] LAST 3: Collection DT Specimen Test Name [...] ESTIMATED GFR(eGF 44 L Ref: >=60 Allergies: ([facility] only) SIMVASTATIN (Feb 29, 2004) CEPHALEXIN (Mar 01, 2004) To see allergies from all [place] locations click Re ports tab>Remote Data>All Available Sites>Clinical Reports>Aller gies. Report Status: Verified Date Reported: MAY 06, 2022 Date Verified: MAY 06, 2022 [employer] E-Sig: Report: CT CERVICAL SPINE W/O CONTRAST HISTORY:falls, blood thinner, AMS, seizure NUMBER OF IMAGES:770 COMPARISON: None available. TECHNIQUE: A non contrast CT of the cervical sp [place]e was [place] the local [place] [facility] [...] findings, above. READING PHYSICIAN: Eduin Donaldson M.D. -[phone] 05/06/2022 12:33 [facility] National Teleradiology Program [phone] (For Medical Practitioner Use Only ) Attention Patients / Veterans: If you have ques tions or concerns about these test results, please contact your [facility] provider or primary care team. [...] 09, 2022 05:30 AM LR MICROBIOLOGY REPORT: [facility] Reporting Lab: [facility] [CLIA# [id number]] [place] [address] Accession [UID]: [id number] [[id number]] Receiv ed: May 09, 2022@01:35 Collection sample: BLOOD Collection date: Apr 05:30 Provider: CODIE LEON Comment on specimen: LEFT ARM, RECEIVED 2 BLOOD CULTURE BOTTLES Test(s) ordered: CULTURE & SUSCEPTIBILITY...... 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 R TRIMETH/SULFA................. S TETRACYCLINE.................. S CLINDAMYCIN................... S RIFAMPIN...................... S VANCOMYCIN.................... S Bacteriology Remark(s): VANCOMYCIN SHAMIKA: <=0.5 ug/mL THIS REPORT IS FINAL =--=--=--=--=--=--=--=--=--=--=--=--=--= --=--=--=--=--=--=--=--=--=--=--=--=-- Performing Laboratory: Bacteriology Report Performed By: [facility] [CLIA# [id number]] [place] [address] May 08, 2022 03:23 PM LR MICROBIOLOGY REPORT: [facility] Reporting Lab: [facility] [CLIA# [id number]] [place] [address] Accession [UID]: [id number] [[id number]] Receiv ed: May 08, 2022@15:41 Collection sample: BLOOD Collection date: Apr 15:23 Provider: CODIE LEON Comment on specimen: LEFT ARM, RECEIVED 2 BLOOD CULTURE BOTTLES Test(s) ordered: CULTURE & SUSCEPTIBILITY...... completed: May 10, 2022 * BACTERIOLOGY FINAL REPORT => May 10, 2022 16:3 1 TECH CODE: [id number] CULTURE RESULTS: GROWTH SAME THAT OF ANOTHER CULTURE Comment: FOR SUSCEPTIBILITY REPORT SEE PREVIOUS POSITIVE SAME MB [id number] ( 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 from Anaerobic bottle ) ( Recovered from Aerobic bottle ) Bacteriology Remark(s): THIS REPORT IS FINAL =--=--=--=--=--=--=--=--=--=--=--=--=--= --=--=--=--=--=--=--=--=--=--=--=--=-- Performing Laboratory: Bacteriology Report Performed By: [facility] [CLIA# [id number]] [place] [address] May 08, 2022 03:21 PM LR MICROBIOLOGY REPORT: [facility] Reporting Lab: [facility] [CLIA# [id number]] [place] [address] Accession [UID]: [id number] [[id number]] Receiv ed: May 08, 2022@15:40 Collection sample: BLOOD Collection date: Apr 15:21 Provider: CODIE LEON Comment on specimen: RT ARM, RECEIVED 2 BLOOD CU LTURE BOTTLES Test(s) ordered: CULTURE & SUSCEPTIBILITY...... completed: May 10, 2022 * BACTERIOLOGY FINAL REPORT => May 10, 2022 16:3 1 TECH CODE: [id number] CULTURE RESULTS: GROWTH SAME THAT OF ANOTHER CULTURE Comment: FOR SUSCEPTIBILITY REPORT SEE PREVIOUS POSITIVE SAME MB 22 [id number] ( 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 from Anaerobic bottle ) ( Recovered from Aerobic bottle ) Bacteriology Remark(s): THIS REPORT IS FINAL =--=--=--=--=--=--=--=--=--=--=--=--=--= --=--=--=--=--=--=--=--=--=--=--=--=-- Performing Laboratory: Bacteriology Report Performed By: [facility] [CLIA# [id number]] [place] [address] May 07, 2022 05:30 AM LR MICROBIOLOGY REPORT: [facility] Reporting Lab: [facility] [CLIA# [id number]] [place] [address] Accession [UID]: [id number] [[id number]] Receiv ed: May 07, 2022@01:35 Collection sample: [...] REPORT SEE PREVIOUS POSITIVE SAME MB 22 [id number] ( 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 from Aerobic bottle ) ( Recovered from Anaerobic bottle ) Bacteriology Remark(s): THIS REPORT IS FINAL =--=--=--=--=--=--=--=--=--=--=--=--=--= --=--=--=--=--=--=--=--=--=--=--=--=-- Performing Laboratory: Bacteriology Report Performed By: [facility] [CLIA# [id number]] [place] [address] May 06, 2022 10:51 AM LR MICROBIOLOGY REPORT: [facility] Reporting Lab: [facility] [CLIA# [id number]] [place] [address] Accession [UID]: [id number] [[id number]] Receiv ed: May 06, 2022@11:32 Collection sample: [...] --=--=--=--=--=--=--=--=--=--=--=--=-- Performing Laboratory: Bacteriology Report Performed By: [facility] [CLIA# [id number]] [place] [address] May 06, 2022 10:34 AM LR MICROBIOLOGY REPORT: [facility] Reporting Lab: [facility] [CLIA# [id number]] [place] [address] Accession [UID]: [id number] [[id number]] Receiv ed: May 06, 2022@10:51 Collection sample: BLOOD Collection date: Apr 10:34 Provider: MODESTA VILLANUEVA Comment on specimen: RECEIVED 2 BLOOD [facility]URE [facility] Test(s) ordered: CULTURE & SUSCEPTIBILITY...... completed: May 07, 2022 * BACTERIOLOGY FINAL REPORT => May 08, 2022 08:3 0 TECH CODE: [id number] CULTURE RESULTS: STAPHYLOCOCCUS AUREUS METHICILL IN RESISTANT [...] --=--=--=--=--=--=--=--=--=--=--=--=-- Performing Laboratory: Bacteriology Report Performed By: [facility] [CLIA# [id number]] [place] [address] May 06, 2022 10:00 AM LR MICROBIOLOGY REPORT: [facility] Reporting Lab: [facility] [CLIA# [id number]] [place] [address] Accession [UID]: [id number] [[id number]] Receiv ed: May 06, 2022@10:41 Collection sample: [...] SEE PREVIOUS POSITIVE SAME LUIS MIGUEL 22 [id number] ( 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 from Anaerobic bottle ) ( Recovered from Aerobic bottle ) Bacteriology Remark(s): THIS REPORT IS FINAL =--=--=--=--=--=--=--=--=--=--=--=--=--= --=--=--=--=--=--=--=--=--=--=--=--=-- Performing Laboratory: Bacteriology Report Performed By: [facility] [CLIA# [id number]] [place] [address]
--- OUTSIDE RECORDS SUMMARY | 2022-05-15 09:32 | XMS_ITS | Encounter Summary ---
:1935 Author Organization [facility] rs Address [address] [place] [address] Support Name Relationship Address Phone WADE LORENZO Unavailable [phone] [place] [address] WADE LORENZO Unavailable [address] [place] [address] ARACELI MARSHALL Unavailable [address] [place] [address] ARACELI MASRHALL Unavailable [address] [place] [address] Insurance Providers: All historical and current Section [...] Bales [place] MED[place]ARE MCR Aug 19, [id number] Kristel EDDY [facility] (WNR) ADVANTAGE (WNR) 2016 8 [id number] [phone] [facility] 1 [place] MEDICARE M[place] Aug 19, [id number] [address] EDDY [facility] (WNR) ADVANTAGE (WNR) 2016 8 [id number] [phone] [facility] 1 Selected Encounter This section includes the information on record at [place] for the Encounter. Date/Time Encounter Type Encounter Description Reason Provider Source May 07, 2022 12:00 AM Inpatient Visit EVENT (HISTORICAL) IHE Encounter Template Text not used by [place] Plan of Treatment: Future Appointments (+ 6 months) and Future Tests (+/- 45 days) The Plan of Treatment section includes future care activities for the patient from all [place] [facility]. This section includes future appointments and future orders which are active, pending orscheduled.Future Appointments This section includes appointments that were scheduled to occur 6 months from the date of the Encounter, up to a maximum of 20 appointments. The data comes from all [place] treatment facilities. Appointment Date/Time Appointment Type Appointment Facili ty Name May 11, 2022 06:15 PM AMBULATORY - NONE [facility] Jul 23, 2022 08:00 AM AMBULATORY - NEUROLOGY [facility] Active, Pending, and Scheduled Orders This section includes a listing of several types of active, pending, and scheduled orders, including clinic medications orders, diagnostic test orders, procedure orders and consult orders; where the start date of the order is 45 days before the date of the Encounter or 45 days after the date of the Encounter. The data comes from all [facility]. Test Date/Time Test Type Test Details Facility Name Apr 30, 2022 08:21 Laboratory - Chemistry URINALYSIS URINE WC ON CE [facility] AM Order Apr 30, 2022 08:21 Laboratory - CULTURE & SUSCEPTIBILITY [facility] AM Microbiology Order URINE WC May 06, 2022 12:00 Laboratory - Blood ABO/RH - LAB BLOOD [facility] AM Bank Order May 06, 2022 10:11 Laboratory - Blood TYPE & SCREEN - LAB [facility] AM Bank Order BLOOD WC May 06, 2022 10:27 Pharmacy [facility] AM Medication Order May 06, 2022 10:28 [facility] AM Infusion Order May 06, 2022 10:34 [facility] AM Infusion Order May 06, 2022 10:41 [facility] AM Infusion Order May 06, 2022 12:15 [facility] PM Medication Order May 06, 2022 01:31 [facility] PM Medication Order May 06, 2022 04:49 [facility] PM Medication Order May 07, 2022 01:00 Laboratory - CULTURE & SUSCEPTIBILITY [facility] PM Microbiology Order BLOOD WC ONCE May 11, 2022 09:07 Laboratory - CULTURE & SUSCEPTIBILITY [facility] AM Microbiology Order BLOOD WC May 11, 2022 09:07 Laboratory - CULTURE & SUSCEPTIBILITY [facility] AM Microbiology Order BLOOD WC May 11, 2022 09:38 Laboratory - Chemistry EOSINOPHIL SMEAR,URINE [facility] AM Order URINE WC ONCE May 11, 2022 09:38 Laboratory - Chemistry URINALYSIS URINE WC ON CE [facility] AM Order May 11, 2022 09:38 Laboratory - Chemistry FENA URINE WC ONCE [facility] AM Order Lab Results: +/- 30 [...] Reference Range Comment May 11, 2022 11:13 [facility] FINGERSTICK GLUCOSE Speci men Type: BLOOD AM Comment: Mark casillas Nurse Notified Ordering Provid er: CODIE LEON Report Released Date/Time: May 11, 2022 11:53 AM Reporting Lab: [facility] [address] [facility] [address] Performing Lab: [facility] [address] [facility] [address] FINGERSTICK GLUCOSE 367 H 70-100 May 11, 2022 07:05 [facility] LIVER FUNCTION TESTS Spec imen Type: PLASMA AM No comment enter ed. Ordering Provid er: CODIE LEON Report Released Date/Time: May 11, 2022 09:08 AM Reporting Lab: [facility] [address] [facility] [address] Performing Lab: [facility] [address] [facility] [address] BILIRUBIN, TOTAL 1.6 H 0.2-1.2 ALKALINE PHOSPHATASE 102 40-150 ALT/SGPT 42 <55 AST/SGOT 30 <34 GAMMA GTP 52 <64 DIR. BILIRUBIN 1.2 H <0.5 May 11, 2022 07:05 AM [facility] CK,TOTAL Specim en Type: PLASMA No comment enter ed. Ordering Provid er: CODIE LEON Report Released Date/Time: May 11, 2022 09:08 AM Reporting Lab: [facility] [address] [facility] [address] Performing Lab: [facility] [address] [facility] [place] [address] CK,TOTAL 16 L 39-208 May 11, 2022 07:05 [facility] BASIC METABOLIC Specimen Type: PLASMA AM PANEL+MG No comment enter ed. Ordering Provid er: OG DIAL Report Released Date/Time: May 11, 2022 04:46 AM Reporting Lab: [facility] [address] [facility] [place] [address] Performing Lab: [facility] [address] [facility] [place] [address] CREATININE 1.6 H 0.7-1.2 UREA NITROGEN 28 H 8-26 GLUCOSE 396 H 70-100 SODIUM 150 H 136-145 POTASSIUM 3.7 3.5-5.1 CHLORIDE 120 H 98-107 CO2 23 22-29 CALCIUM 8.4 8.4-10.2 MAGNESIUM 2.1 1.6-2.6 ANION GAP 7 5-15 CREAT EGFR(CKD-EPI) 42 L >60 May 11, 2022 07:05 AM [facility] BNP Specim en Type: PLASMA No comment enter ed. Ordering Provid er: CODIE LEON Report Released Date/Time: May 11, 2022 09:15 AM Reporting Lab: [facility] [address] [facility] [place] [address] Performing Lab: [facility] [address] [facility] [place] [address] BNP 59 <99 May 11, 2022 07:05 AM [facility] CBC Specim en Type: BLOOD No comment enter ed. Ordering Provid er: OG DIAL Report Released Date/Time: May 11, 2022 04:46 AM Reporting Lab: [facility] [address] [facility] [place] [address] Performing Lab: [facility] [address] [facility] [place] [address] WBC 15.93 H 4.0-11.0 RBC 3.60 L 4.6-6.2 HGB 11.2 L 13.5-17.9 HCT 35.3 L 41-54 MCV 98.1 80-100 MCH 31.1 27-33 MCHC 31.7 L 32.0-37.5 PLT 231 150-400 MPV 11.2 H 7.4-10.4 RDW 15.2 H 11.5-14.5 May 11, 2022 06:14 [facility] FINGERSTICK GLUCOSE Speci men Type: BLOOD AM Comment: Mark casillas Nurse Notified Ordering Provid er: MALINI,CODIE E Report Released Date/Time: May 11, 2022 06:42 AM Reporting Lab: [facility] [address] [facility] [address] Performing Lab: [facility] [address] [facility] [address] FINGERSTICK GLUCOSE 345 H 70-100 May 11, 2022 02:24 [facility] FINGERSTICK GLUCOSE Speci men Type: BLOOD AM Comment: Mark casillas Ordering Provid er: CODIE LEON Report Released Date/Time: May 11, 2022 02:44 AM Reporting Lab: [facility] [address] [facility] [address] Performing Lab: [facility] [address] [facility] [address] FINGERSTICK GLUCOSE 375 H 70-100 May 10, 2022 08:38 [facility] FINGERSTICK GLUCOSE Speci men Type: BLOOD PM Comment: Mark casillas Ordering Provid er: CODIE LEON Report Released Date/Time: May 11, 2022 12:31 AM Reporting Lab: [facility] [address] [facility] [address] Performing Lab: [facility] [address] [facility] [address] FINGERSTICK GLUCOSE 346 H 70-100 May 10, 2022 05:05 [facility] FINGERSTICK GLUCOSE Speci men Type: BLOOD PM Comment: Mark casillas Nurse Notified Ordering Provid er: CODIE LEON Report Released Date/Time: May 10, 2022 11:50 PM Reporting Lab: [facility] [address] [facility] [address] Performing Lab: [facility] [address] [facility] [address] FINGERSTICK GLUCOSE 245 H 70-100 May 10, 2022 02:00 [facility] VANCOMYCIN (TROUGH) Speci men Type: PLASMA PM No comment enter ed. Ordering Provid er: CODIE LEON Report Released Date/Time: May 11, 2022 01:34 AM Reporting Lab: [facility] [address] [facility] [address] Performing Lab: [facility] [address] [facility] [address] VANCOMYCIN (TROUGH) 31.8 H 10.0-15.0 May 10, 2022 [facility] BASIC METABOLIC Specimen Typ e: PLASMA 02:00 PM PANEL+MG No comment enter ed. Ordering Provid er: CODIE LEON Report Released Date/Time: May 11, 2022 01:34 AM Reporting Lab: [facility] [address] Performing Lab: [facility] [address] CREATININE 1.1 .7-1.2 UREA NITROGEN 22 8-26 GLUCOSE 279 H 70-100 SODIUM 150 H 136-145 POTASSIUM 3.2 L 3.5-5.1 CHLORIDE 116 H 98-107 CO2 23 22-29 CALCIUM 8.5 8.4-10.2 MAGNESIUM 2.0 1.6-2.6 ANION GAP 11 5-15 CREAT EGFR(CKD-EPI) 65 >60 May 10, 2022 01:20 PM [facility] CBC & DIFF Specim en Type: BLOOD Comment: Automa nola Differential Performed Ordering Provid er: MD ESTEBAN Report Released Date/Time: May 10, 2022 08:52 PM Reporting Lab: [facility] [address] Performing Lab: [facility] [address] WBC 16.24 H 4.0-11.0 RBC 3.76 L [...] 0.28 H 0-0.1 May 10, 2022 11:07 [facility] FINGERSTICK GLUCOSE Speci men Type: BLOOD AM Comment: Mark casillas Nurse Notified Ordering Provid er: CODIE LEON Report Released Date/Time: May 11, 2022 12:31 AM Reporting Lab: [facility] [address] [facility] [address] Performing Lab: [facility] [address] [facility] [address] FINGERSTICK GLUCOSE 253 H 70-100 May 10, 2022 06:16 [facility] FINGERSTICK GLUCOSE Speci men Type: BLOOD AM Comment: Mark casillas Nurse Notified Ordering Provid er: CODIE LEON Report Released Date/Time: May 10, 2022 11:50 PM Reporting Lab: [facility] [address] [facility] [address] Performing Lab: [facility] [address] [facility] [address] FINGERSTICK GLUCOSE 271 H 70-100 May 09, 2022 09:07 [facility] FINGERSTICK GLUCOSE Speci men Type: BLOOD PM Comment: Mark casillas Ordering Provid er: CODIE LEON Report Released Date/Time: May 10, 2022 11:50 PM Reporting Lab: [facility] [address] [facility] [address] Performing Lab: [facility] [address] [facility] [address] FINGERSTICK GLUCOSE 209 H 70-100 May 09, 2022 05:33 [facility] FINGERSTICK GLUCOSE Speci men Type: BLOOD PM Comment: Mark casillas Nurse Notified Ordering Provid er: CODIE LEON Report Released Date/Time: May 09, 2022 05:53 PM Reporting Lab: [facility] [address] [facility] [address] Performing Lab: [facility] [address] [facility] [address] FINGERSTICK GLUCOSE 251 H 70-100 May 09, 2022 02:09 [facility] VANCOMYCIN (PEAK) Specime n Type: SERUM PM No comment enter ed. Ordering Provid er: AMARIS DE JESUS Report Released Date/Time: May 09, 2022 09:33 AM Reporting Lab: [facility] [address] [facility] [address] Performing Lab: [facility] [address] [facility] [address] VANCOMYCIN (PEAK) 24.2 20.0-40.0 May 09, 2022 11:19 [facility] FINGERSTICK GLUCOSE Speci men Type: BLOOD AM Comment: Mark casillas Nurse Notified Ordering Provid er: CODIE LEON Report Released Date/Time: May 09, 2022 11:38 AM Reporting Lab: [facility] [address] [facility] [place] [address] Performing Lab: [facility] [address] FINGERSTICK GLUCOSE 240 H 70-100 May 09, 2022 08:13 [facility] VANCOMYCIN (TROUGH) Speci men Type: SERUM AM No comment enter ed. Ordering Provid er: AMARIS DE JESUS Report Released Date/Time: May 08, 2022 11:14 AM Reporting Lab: [facility] [address] [facility] [address] Performing Lab: [facility] [address] VANCOMYCIN (TROUGH) 16.1 H 10.0-15.0 May 09, 2022 05:33 AM [facility] CBC & DIFF Specim en Type: BLOOD Comment: Automa nola Differential Performed Ordering Provid er: CODIE LEON Report Released Date/Time: May 08, 2022 05:27 PM Reporting Lab: [facility] [address] [facility] [address] Performing Lab: [facility] [address] [facility] [address] WBC 14.92 H 4.0-11.0 RBC 3.41 L [...] GRAN 0.16 H 0-0.1 May 09, 2022 [facility] COMPREHENSIVE METABOLIC Spec imen Type: PLASMA 05:32 AM PANEL+MG No comment enter ed. Ordering Provid er: CODIE LEON Report Released Date/Time: May 08, 2022 05:27 PM Reporting Lab: [facility] [address] [facility] [place] [address] Performing Lab: [facility] [address] [facility] [place] [address] CREATININE 1.2 0.7-1.2 UREA NITROGEN 25 8-26 [...] 59 L >60 May 09, 2022 05:16 [facility] FINGERSTICK GLUCOSE Speci men Type: BLOOD AM Comment: Mark casillas Nurse Notified Ordering Provid er: CODIE LEON Report Released Date/Time: May 09, 2022 07:27 AM Reporting Lab: [facility] [address] [facility] [place] [address] Performing Lab: [facility] [address] [facility] [address] FINGERSTICK GLUCOSE 295 H 70-100 May 08, 2022 09:32 PM [facility] EXTRA MINT TUBE Specim en Type: PLASMA No comment enter ed. Ordering Provid er: MD ESTEBAN Report Released Date/Time: May 08, 2022 09:32 PM Reporting Lab: [facility] [address] [facility] [place] [address] Performing Lab: [facility] [address] [facility] [place] [address] EXTRA MINT TUBE RECEIVED May 08, 2022 09:32 PM [facility] EXTRA PURPLE TUBE Spec imen Type: BLOOD No comment enter ed. Ordering Provid er: MD ESTEBAN Report Released Date/Time: May 08, 2022 09:32 PM Reporting Lab: [facility] [address] [facility] [place] [address] Performing Lab: [facility] [address] [facility] [place] [address] EXTRA PURPLE TUBE RECEIVED May 08, 2022 09:32 [facility] EXTRA GOLD GEL TUBE Speci men Type: SERUM PM No comment enter ed. Ordering Provid er: MD ESTEBAN Report Released Date/Time: May 08, 2022 09:32 PM Reporting Lab: [facility] [address] [facility] [address] Performing Lab: [facility] [address] [facility] [address] EXTRA GOLD GEL TUBE RECEIVED May 08, 2022 09:32 PM [facility] EXTRA BLUE TUBE Specim en Type: PLASMA No comment enter ed. Ordering Provid er: MD ESTEBAN Report Released Date/Time: May 08, 2022 09:32 PM Reporting Lab: [facility] [address] [facility] [address] Performing Lab: [facility] [address] [facility] [address] EXTRA BLUE TUBE RECEIVED May 08, 2022 09:32 PM [facility] EXTRA BRASWELL TUBE Specim en Type: PLASMA No comment enter ed. Ordering Provid er: MD ESTEBAN Report Released Date/Time: May 08, 2022 09:37 PM Reporting Lab: [facility] [address] [facility] [address] Performing Lab: [facility] [address] [facility] [address] EXTRA BRASWELL TUBE RECEIVED May 08, 2022 09:32 PM [facility] LACTIC ACID Specim en Type: PLASMA No comment enter ed. Ordering Provid er: OG DIAL Report Released Date/Time: May 08, 2022 09:49 PM Reporting Lab: [facility] [address] [facility] [address] Performing Lab: [facility] [address] [facility] [address] LACTIC ACID 2.5 H 0.5-2.2 May 08, 2022 09:32 PM [facility] BNP Specim en Type: PLASMA No comment enter ed. Ordering Provid er: OG DIAL Report Released Date/Time: May 08, 2022 09:50 PM Reporting Lab: [facility] [address] [facility] [address] Performing Lab: [facility] [address] [facility] [address] BNP 897 H <99 May 08, 2022 09:32 PM [facility] BLOOD GASES Specim en Type: VENOUS BLOOD Comment: O2 THE RAPY = 3L PM Ordering Provid er: OG DIAL Report Released Date/Time: May 08, 2022 09:50 PM Reporting Lab: [facility] [address] [facility] [place] [address] Performing Lab: [facility] [address] PH 7.36 7.33-7.43 PCO2 47 41-51 BICARBONATE 24.4 21.0-30.0 PO2 31 L 35-40 OXYGEN SATURATION 54.7 L 70.0-75.0 PH(TEMP CORRECTED) 7.37 7.33-7.43 PCO2(TEMP CORRECTED) 46 41-51 PO2(TEMP CORRECTED) 31 L 35-40 PATIENT TEMPERATURE 36.7 May 08, 2022 09:32 PM [facility] CBC Specim en Type: BLOOD No comment enter ed. Ordering Provid er: OG DIAL Report Released Date/Time: May 08, 2022 09:50 PM Reporting Lab: [facility] [address] Performing Lab: [facility] [address] WBC 18.54 H 4.0-11.0 RBC 3.68 L 4.6-6.2 HGB 11.5 L 13.5-17.9 HCT 35.1 L 41-54 MCV 95.4 80-100 MCH 31.3 27-33 MCHC 32.8 32.0-37.5 PLT 221 150-400 MPV 11.1 H 7.4-10.4 RDW 14.9 H 11.5-14.5 May 08, 2022 [facility] COMPREHENSIVE METABOLIC Spec imen Type: PLASMA 09:32 PM PANEL+MG No comment enter ed. Ordering Provid er: OG DIAL Report Released Date/Time: May 08, 2022 09:50 PM Reporting Lab: [facility] [address] Performing Lab: [facility] [address] CREATININE 1.3 H 0.7-1.2 UREA NITROGEN 26 [...] 54 L >60 May 08, 2022 08:27 [facility] FINGERSTICK GLUCOSE Speci men Type: BLOOD PM Comment: Mark casillas Nurse Notified Ordering Provid er: CODIE LEON Report Released Date/Time: May 08, 2022 08:55 PM Reporting Lab: [facility] [address] [facility] [address] Performing Lab: [facility] [address] [facility] [address] FINGERSTICK GLUCOSE 272 H 70-100 May 08, 2022 06:56 [facility] FINGERSTICK GLUCOSE Speci men Type: BLOOD PM Comment: Mark casillas Ordering Provid er: CODIE LEON Report Released Date/Time: May 08, 2022 07:08 PM Reporting Lab: [facility] [address] [facility] [address] Performing Lab: [facility] [address] [facility] [address] FINGERSTICK GLUCOSE 262 H 70-100 May 08, 2022 04:50 [facility] FINGERSTICK GLUCOSE Speci men Type: BLOOD PM Comment: Nurse Notified Ordering Provid er: CODIE LEON Report Released Date/Time: May 08, 2022 05:14 PM Reporting Lab: [facility] [address] [facility] [address] Performing Lab: [facility] [address] [facility] [address] FINGERSTICK GLUCOSE 330 H 70-100 May 08, 2022 11:21 [facility] FINGERSTICK GLUCOSE Speci men Type: BLOOD AM Comment: Mark casillas Nurse Notified Ordering Provid er: CODIE LEON Report Released Date/Time: May 08, 2022 11:51 AM Reporting Lab: [facility] [address] [facility] [address] Performing Lab: [facility] [address] [facility] [place] [address] FINGERSTICK GLUCOSE 231 H 70-100 May 08, 2022 07:25 AM [facility] CBC & DIFF Specim en Type: BLOOD Comment: Automa nola Differential Performed Ordering Provid er: BETO AYALA Report Released Date/Time: May 07, 2022 12:28 PM Reporting Lab: [facility] [place] [address] Performing Lab: [facility] [address] [facility] [place] [address] WBC 16.29 H 4.0-11.0 RBC 3.38 L [...] GRAN 0.26 H 0-0.1 May 08, 2022 [facility] PROTHROMBIN TIME/INR Specime n Type: PLASMA 07:25 AM No comment enter ed. Ordering Provid er: BETO AYALA Report Released Date/Time: May 07, 2022 12:28 PM Reporting Lab: [facility] [address] [facility] [address] Performing Lab: [facility] [address] .INR 1.2 H 0.8-1.1 .PT 14.2 H 9.4-12.5 May 08, 2022 [facility] COMPREHENSIVE METABOLIC Spec imen Type: PLASMA 07:25 AM PANEL+MG No comment enter ed. Ordering Provid er: BETO AYALA Report Released Date/Time: May 07, 2022 12:28 PM Reporting Lab: [facility] [address] [facility] [address] Performing Lab: [facility] [address] CREATININE 1.1 0.7-1.2 UREA NITROGEN 27 H [...] EGFR(CKD-EPI) 65 >60 May 08, 2022 06:53 [facility] FINGERSTICK GLUCOSE Speci men Type: BLOOD AM Comment: Mark casillas Ordering Provid er: CODIE LEON Report Released Date/Time: May 08, 2022 07:18 AM Reporting Lab: [facility] [address] [facility] [address] Performing Lab: [facility] [address] [facility] [address] FINGERSTICK GLUCOSE 276 H 70-100 May 07, 2022 08:36 [facility] FINGERSTICK GLUCOSE Speci men Type: BLOOD PM Comment: Nurse Notified Ordering Provid er: CODIE LEON Report Released Date/Time: May 08, 2022 12:29 AM Reporting Lab: [facility] [address] [facility] [address] Performing Lab: [facility] [address] [facility] [address] FINGERSTICK GLUCOSE 282 H 70-100 May 07, 2022 07:04 PM [facility] LACTIC ACID Specim en Type: PLASMA No comment enter ed. Ordering Provid er: BETO AYALA Report Released Date/Time: May 07, 2022 06:28 PM Reporting Lab: [facility] [address] [facility] [address] Performing Lab: [facility] [address] [facility] [address] LACTIC ACID 2.0 0.5-2.2 May 07, 2022 04:46 [facility] FINGERSTICK GLUCOSE Speci men Type: BLOOD PM Comment: Nurse Notified Ordering Provid er: BETO AYALA Report Released Date/Time: May 07, 2022 05:00 PM Reporting Lab: [facility] [address] [facility] [address] Performing Lab: [facility] [address] [facility] [address] FINGERSTICK GLUCOSE 274 H 70-100 May 07, 2022 12:47 [facility] FINGERSTICK GLUCOSE Speci men Type: BLOOD PM Comment: Mark casillas Nurse Notified Ordering Provid er: BETO AYALA Report Released Date/Time: May 07, 2022 05:32 PM Reporting Lab: [facility] [address] [facility] [place] [address] Performing Lab: [facility] [address] [facility] [place] [address] FINGERSTICK GLUCOSE 309 H 70-100 May 07, 2022 06:35 [facility] FINGERSTICK GLUCOSE Speci men Type: BLOOD AM Comment: Mark casillas Nurse Notified Ordering Provid er: GAYLA DOMINGUEZ Report Released Date/Time: May 07, 2022 06:46 AM Reporting Lab: [facility] [address] [facility] [place] [address] Performing Lab: [facility] [address] [facility] [place] [address] FINGERSTICK GLUCOSE 352 H 70-100 May 07, 2022 06:15 AM [facility] ALBUMIN Specim en Type: PLASMA No comment enter ed. Ordering Provid er: GAYLA DOMINGUEZ Report Released Date/Time: May 06, 2022 06:33 PM Reporting Lab: [facility] [address] [facility] [place] [address] Performing Lab: [facility] [address] [facility] [place] [address] ALBUMIN 3.0 L 3.5-5.2 May 07, 2022 [facility] COMPREHENSIVE METABOLIC Spec imen Type: PLASMA 06:15 AM PANEL+MG No comment enter ed. Ordering Provid er: GAYLA DOMINGUEZ Report Released Date/Time: May 06, 2022 09:11 PM Reporting Lab: [facility] [address] [facility] [place] [address] Performing Lab: [facility] [address] [facility] [place] [address] CREATININE 1.2 0.7-1.2 UREA NITROGEN 25 8-26 [...] L >60 May 07, 2022 06:15 AM [facility] CBC & DIFF Specim en Type: BLOOD Comment: Manual Differential Performed Ordering Provid er: GAYLA DOMINGUEZ Report Released Date/Time: May 06, 2022 09:11 PM Reporting Lab: [facility] [address] [facility] [place] [address] Performing Lab: [facility] [address] [facility] [place] [address] WBC 20.25 H 4.0-11.0 RBC 3.54 L [...] NORMOCYTIC, NORMOCHROMIC May 07, 2022 12:19 AM [facility] LACTIC ACID Specim en Type: PLASMA No comment enter ed. Ordering Provid er: GAYLA DOMINGUEZ Report Released Date/Time: May 06, 2022 07:13 PM Reporting Lab: [facility] [address] [facility] [place] [address] Performing Lab: [facility] [address] [facility] [place] [address] LACTIC ACID 2.7 H 0.5-2.2 May 06, 2022 10:45 [facility] FINGERSTICK GLUCOSE Speci men Type: BLOOD PM Comment: Mark casillas Nurse Notified Ordering Provid er: GAYLA DOMINGUEZ Report Released Date/Time: May 07, 2022 12:08 AM Reporting Lab: [facility] [address] [facility] [place] [address] Performing Lab: [facility] [address] [facility] [address] FINGERSTICK GLUCOSE 320 H 70-100 May 06, 2022 06:53 [facility] MRSA SURVL NARES Specimen Type: NARES PM DNA No comment enter ed. Ordering Provid er: GAYLA DOMINGUEZ Report Released Date/Time: May 06, 2022 06:33 PM Reporting Lab: [facility] [address] [facility] [address] Performing Lab: [facility] [address] [facility] [address] MRSA SURVL NARES DNA POSITIVE HH Negative May 06, 2022 06:51 PM [facility] LACTIC ACID Specim en Type: PLASMA No comment enter ed. Ordering Provid er: GAYLA DOMINGUEZ Report Released Date/Time: May 06, 2022 06:04 PM Reporting Lab: [facility] [address] [facility] [address] Performing Lab: [facility] [address] [facility] [address] LACTIC ACID 3.1 H 0.5-2.2 May 06, 2022 06:51 [facility] CARDIAC TROPONIN I Specim en Type: PLASMA PM No comment enter ed. Ordering Provid er: GAYLA DOMINGUEZ Report Released Date/Time: May 06, 2022 06:05 PM Reporting Lab: [facility] [address] [facility] [address] Performing Lab: [facility] [address] [facility] [address] CARDIAC TROPONIN I <0.028 <0.028 May 06, 2022 06:51 [facility] EXTRA GOLD GEL TUBE Speci men Type: SERUM PM No comment enter ed. Ordering Provid er: GAYLA DOMINGUEZ Report Released Date/Time: May 06, 2022 06:52 PM Reporting Lab: [facility] [address] [facility] [address] Performing Lab: [facility] [address] [facility] [address] EXTRA GOLD GEL TUBE RECEIVED May 06, 2022 06:51 [facility] C-REACTIVE PROTEIN Specim en Type: PLASMA PM No comment enter ed. Ordering Provid er: GAYLA DOMINGUEZ Report Released Date/Time: May 06, 2022 09:29 PM Reporting Lab: [facility] [address] [facility] [address] Performing Lab: [facility] [place] [address] C-REACTIVE PROTEIN 392.40 H <5.00 May 06, 2022 10:51 AM [facility] URINALYSIS Specim en Type: URINE No comment enter ed. Ordering Provid er: MODESTA VILLANUEVA Report Released Date/Time: May 06, 2022 10:11 AM Reporting Lab: [facility] [address] Performing Lab: [facility] [address] URINE COLOR YELLOW SPECIFIC GRAVITY 1.020 1.003-1.035 [...] ESTERASE 500 NEGATIVE May 06, 2022 10:24 [facility] COVID-19 DIAGNOSTIC Speci men Type: NASOPHARYNGEAL AM PANEL (CEPHEID) Comment: Cephei d GeneXpert (618) Ordering Provid er: MODESTA VILLANUEVA Report Released Date/Time: May 06, 2022 10:11 AM Reporting Lab: [facility] [address] Performing Lab: [facility] [address] COVID-19 (CEPHEID) Not Detected Not Dete cted May 06, 2022 10:20 AM [facility] POC ABG/LACTATE Specim en Type: VENOUS BLOOD No comment enter ed. Ordering Provid er: MODESTA VILLANUEVA Report Released Date/Time: May 06, 2022 10:22 AM Reporting Lab: [facility] [address] Performing Lab: [facility] [address] POC PH 7.410 7.31-7.41 POC PCO2 28.9 L 35.00-45.00 POC PO2 82 H 35.0-40.0 POC TCO2 19 L 24.0-29.0 POC HCO3 18.3 L 23.0-28.0 POC BE ECT -6 L -2 POC SO2 96 H 70-75 POC LACTATE 3.62 0.90-1.70 May 06, 2022 10:00 [facility] PROTHROMBIN TIME/INR Spec imen Type: PLASMA AM No comment enter ed. Ordering Provid er: MODESTA VILLANUEVA Report Released Date/Time: May 06, 2022 10:11 AM Reporting Lab: [facility] [address] [facility] [address] Performing Lab: [facility] [address] [facility] [address] .INR 2.5 H 0.8-1.1 .PT 29.2 H 9.4-12.5 May 06, 2022 10:00 [facility] ACT PART THROMBO TIME Spe cimen Type: PLASMA AM No comment enter ed. Ordering Provid er: MODESTA VILLANUEVA Report Released Date/Time: May 06, 2022 10:11 AM Reporting Lab: [facility] [address] [facility] [address] Performing Lab: [facility] [address] [facility] [address] APTT 37.8 H 25.1-36.5 May 06, 2022 10:00 AM [facility] PHOSPHORUS Specim en Type: PLASMA No comment enter ed. Ordering Provid er: MODESTA VILLANUEVA Report Released Date/Time: May 06, 2022 10:11 AM Reporting Lab: [facility] [address] [facility] [address] Performing Lab: [facility] [address] [facility] [address] PHOSPHORUS 2.5 2.3-4.7 May 06, 2022 10:00 AM [facility] PROCALCITONIN Specim en Type: PLASMA No comment enter ed. Ordering Provid er: MODESTA VILLANUEVA Report Released Date/Time: May 06, 2022 10:11 AM Reporting Lab: [facility] [address] [facility] [address] Performing Lab: [facility] [address] [facility] [address] PROCALCITONIN 22.29 H <0.09 May 06, 2022 10:00 [facility] CARDIAC TROPONIN I Specim en Type: PLASMA AM Comment: Critic al Value Reported To: BROOKS COTE 05-06-2022 @1053 BY MBB. Critical value report confirmed. Ordering Provid er: MODESTA VILLANUEVA Report Released Date/Time: May 06, 2022 10:11 AM Reporting Lab: [facility] [address] [facility] [place] [address] Performing Lab: [facility] [address] [facility] [place] [address] CARDIAC TROPONIN I 0.035 HH <0.028 May 06, 2022 10:00 AM [facility] LIPASE Specim en Type: PLASMA No comment enter ed. Ordering Provid er: MODESTA VILLANUEVA Report Released Date/Time: May 06, 2022 10:11 AM Reporting Lab: [facility] [address] [facility] [place] [address] Performing Lab: [facility] [address] [facility] [place] [address] LIPASE <4 <60 May 06, 2022 10:00 AM [facility] CBC & DIFF Specim en Type: BLOOD Comment: Manual Differential Performed Ordering Provid er: MODESTA VILLANUEVA Report Released Date/Time: May 06, 2022 10:11 AM Reporting Lab: [facility] [address] [facility] [address] Performing Lab: [facility] [address] [facility] [place] [address] WBC 18.82 H 4.0-11.0 RBC 3.70 L [...] 0.09 .RBC MORPHOLOGY PRESENT May 06, 2022 [facility] COMPREHENSIVE METABOLIC Spec imen Type: PLASMA 10:00 AM PANEL+MG Comment: Manual Differential Performed Ordering Provid er: MODESTA VILLANUEVA Report Released Date/Time: May 06, 2022 10:11 AM Reporting Lab: [facility] [address] [facility] [place] [address] Performing Lab: [facility] [address] [facility] [address] CREATININE 1.3 H 0.7-1.2 UREA NITROGEN 25 [...] 54 L >60 May 06, 2022 10:00 [facility] EXTRA GOLD GEL TUBE Speci men Type: SERUM AM No comment enter ed. Ordering Provid er: LINNEA RAND Report Released Date/Time: May 06, 2022 10:25 AM Reporting Lab: [facility] [address] [facility] [place] [address] Performing Lab: [facility] [address] [facility] [place] [address] EXTRA GOLD GEL TUBE RECEIVED May 06, 2022 09:46 [facility] FINGERSTICK GLUCOSE Speci men Type: BLOOD AM Comment: Mark casillas Nurse Notified Ordering Provid er: MODESTA VILLANUEVA Report Released Date/Time: May 06, 2022 09:59 AM Reporting Lab: [facility] [address] [facility] [place] [address] Performing Lab: [facility] [address] [facility] [place] [address] FINGERSTICK GLUCOSE 369 H 70-100 Apr 30, 2022 09:17 AM [facility] CBC Specim en Type: BLOOD No comment enter ed. Ordering Provid er: BILL ROONEY Report Released Date/Time: Apr 30, 2022 08:21 AM Reporting Lab: [facility] [address] [facility] [place] [address] Performing Lab: [facility] [address] [facility] [address] WBC 10.40 4.0-11.0 RBC 3.96 L 4.6-6.2 HGB 12.3 L 13.5-17.9 HCT 37.8 L 41-54 MCV 95.5 80-100 MCH 31.1 27-33 MCHC 32.5 32.0-37.5 PLT 286 150-400 MPV 10.1 7.4-10.4 RDW 14.6 H 11.5-14.5 Apr 30, 2022 [facility] BASIC METABOLIC Specimen Typ e: PLASMA 09:17 AM PANEL+MG No comment enter ed. Ordering Provid er: BILL ORONEY Report Released Date/Time: Apr 30, 2022 08:21 AM Reporting Lab: [facility] [address] Performing Lab: [facility] [address] CREATININE 1.2 0.7-1.2 UREA NITROGEN 26 8-26 [...] Source Pressure Rate Mass Index May 07 [facility] 2021 12:14 [facility] PM [facility] May 07 [facility] 2021 04:56 [facility] AM [facility] May 07 [facility] 2021 03:23 [facility] May 07, 266.76 35 [facility] 2021 12:15 lb [facility] Social History: Smoking Status (Most current) and Tobacco Use (All prior to encounter date) This section includes the most current, and the historical, smoking and tobacco-related health factors from the [facility] where the Encounter took place.Current Smoking Status This section includes the most current smoking, or tobacco-related health factor, from the [place] facility where the Encounter took place. Date/Time Current Smoking Status Comment Facility Feb 02, 2022 09:30 AM VA-TOBACCO NEVER USED [facility] Tobacco Use History This section includes a history of the smoking, or tobacco- related health factors, that were collected on or before the date of the Encounter. The data comes from the [place] facility where the Encounter took place. Date/Time Smoking Status/Tobacco Use Comment [facility] Mar 22, 2021 07:45 AM VA-TOBACCO NEVER USED [place] [facility] Oct 02, 2019 10:02 AM VA-TOBACCO NEVER USED [place] [facility] [facility] May 21, 2018 09:05 AM [place] [facility] [facility] December 25, 2017 06:14 PM INPT NO TOBACCO USE IN LAST 30 DAYS [facility] Oct 01, 2017 07:34 AM LIFETIME NON-TOBACCO USER [facility] Sep 28, 2016 08:44 AM LIFETIME NON-TOBACCO USER [facility] Oct 14, 2015 07:52 AM LIFETIME NON-TOBACCO USER [facility] Oct 11, 2014 07:59 AM LIFETIME NON-TOBACCO USER [facility] January 15, 2007 07:55 AM LIFETIME NON-TOBACCO USER [facility] Advance Directives: All historical and current Section Date Range: From patient's date of to the date document was created. This section includes ALL of a patient's completed or amended [place] Advance and Rescinded Directives. The entries below indicate that a directive exists for the patient, but an actual copy is not included with this document. The data comes from all [facility]. Date Advance Directives Provider Source Apr 18, 2018 ADVANCE DIRECTIVE JOVONLARISSA [facility] Apr 18, 2018 ADVANCE DIRECTIVE DISCUSSION LARISSA SIGALA [facility] December 23, 2017 CLINICAL WARNING FARHAT SCHMID [facility] May 11, 2003 ADVANCE DIRECTIVE BERT CASILLAS [facility] Radiology Reports: +/- 30 days of [...] 2022 09:46 CHEST 1 VIEW: SONJA OVALLES [facility] AM NELY EDDYNETH Miguel [id number] -1935 M Exm Date: MAY 11, 2022@09:46 Req Phys: CODIE LEON Loc: OP Unknown /05-13-2022@05:05 Img Loc: MAIN X-RAY Service: [facility] OFFICE (Case [id number] COMPLETE) CHEST 1 VIEW (RAD Detailed) CPT:67710 Proc Modifiers : PORTABLE EXAM Reason for Study: resp distress Clinical History: [place] IS NOT under investigation for COVID-19 or is COVID-19 negative Respiratory distress Responsible provider name and phone number to notify for critical findings if other than u ser placing the order and pager listed below: User placing orde rs pager: [phone] cell LAST CREATININE 1.6 H (05/11/22) Report Status: Verified Date Reported: MAY 11, 2022 Date Verified: MAY 11, 2022 Engineer Of System Development E-Sig:/ES/SONJA OVALLES MD Report: CHEST 1 VIEW [...] Primary Interpreting Staff: SONJA OVALLES MD, RADIOLOGIST (Engineer Of System Development) /CDC May 10, 2022 03:49 CT HEAD (P): RADIOLOGY,OUTSIDE [facility] PM LUISANA EDDY [id number] -1935 M SERVICE Exm Date: MAY 10, 2022@15:49 Req Phys: CODIE LEON Loc: OP Unknown /05-13-2022@05:05 Img Loc: CT IMAGING Service: [facility] OFFICE (Case [id number] COMPLETE) CT HEAD/BRAIN W/O CONTRAST (CT Detailed) CPT:43988 Reason for Study: CHANGE IN MENTAL STATUS Clinical History: CHANGE IN MENTAL STATUS. ORDER ADMINISTRATIVELY ENTERED FOLLOWING SYSTEM OUTAGE. Report Status: Verified Date Reported: MAY 10, 2022 Date Verified: MAY 10, 2022 Engineer Of System Development E-Sig: Report: CT HEAD/BRAIN W/O CONTRAST [PRINTSET] [...] study. READING PHYSICIAN: Akash Mccoy M.D. -[phone] 05/10/2022 17:35 PDT [facility] National Teleradiology Program [phone] (For Medical Practitioner Use Only ) Attention Patients / Veterans: If you have ques tions or concerns about these test results, please contact your o rdering provider or primary care team. Primary Interpreting Staff: RADIOLOGY,OUTSIDE SERVICE, Staff Physician / May 08, 2022 07:45 CT T-SPINE (P): RADIOLOGY,OUTSIDE [facility] PM LUISANA EDDY [id number] [facility] SERVICE Exm Date: MAY 08, 2022@19:45 Req Phys: MALINICODIE GOOD Camron Cornejo Loc: OP Unknown /05-13-2022@05:05 Img Loc: CT IMAGING Service: PRIMARY CARE - MED OFFICE (Case [id number] COMPLETE) CT SPINE THORACIC W/O CONTR AST (CT Detailed) CPT:32148 Reason for Study: mrsa bacteremia, spinal surge ry - r/o abscess or discitis Clinical History: IS NOT under investigation for COVID-19 or is COVID-19 negative Defer to radiologist for final CT protocol. Responsible provider name and phone number to n otify for critical findings if other than user placing the order a nd pager listed below: User placing orders pager: [phone] LAST 3: Collection DT Specimen Test Name [...] GFR (eGF 44 L Ref: >=60 Allergies: ([place] only) SIMVASTATIN (Feb 29, 2004) CEPHALEXIN (Mar 01, 2004) Report Status: Verified Date Reported: MAY 08, 2022 Date Verified: MAY 08, 2022 Engineer Of System Development E-Sig: Report: CT SPINE THORACIC W/O CONTRAST [PRINTSET] HISTORY:MRSA bacteremia NUMBER OF IMAGES:1151 COMPARISON: Correlation with images from recent CT abdomen and pelvis May 06, 2022 TECHNIQUE: A non contrast CT of the thoracic sp ine was performed at the local [place]. Images were subsequently sent to [facility] [...] thoracic level. READING PHYSICIAN: Luisana Webb MD -[phone] 05/08/2022 19:20 PDT [facility] National Teleradiology Program [phone] (For Medical Practitioner Use Only ) Attention Patients / Veterans: If you have ques tions or concerns about these test results, please contact your o rdering provider or primary care team. Primary Interpreting Staff: RADIOLOGY,OUTSIDE SERVICE, Staff Physician / May 08, 2022 04:48 CHEST 1 VIEW: RADIOLOGY,OUTSIDE [facility] PM LUISANA EDDY [id number] -1935 M SERVICE Exm Date: MAY 08, 2022@16:48 Req Phys: CODIE LEON Loc: OP Unknown /05-13-2022@05:05 Img Loc: MAIN X-RAY Service: PRIMARY CARE - MED OFFICE (Case [id number] COMPLETE) CHEST 1 VIEW (RAD Detailed) CPT:94225 Proc Modifiers : PORTABLE EXAM Reason for Study: dyspnea Clinical History: [place] IS NOT under investigation for COVID-19 or is COVID-19 negative acute worsening of dyspnea Responsible provider name and phone number to notify for critical findings if other than user placing the order and pager listed below: User placing orders pager: [phone] malini cell [phone] LAST CREATININE 1.1 (05/08/22) Report Status: Verified Date Reported: MAY 08, 2022 Date Verified: MAY 08, 2022 Engineer Of System Development E-Sig: Report: CHEST 1 VIEW HISTORY: dyspnea COMPARISON: 05/06/2022 TECHNIQUE: Frontal view(s) of the chest, submit nola to the [place] National Teleradiology Program (NTP) for interp retation. FINDINGS: Reduced lung volumes. Progressive cardiomegaly, and vascular congestion as well as diffuse interstitial prom inence with probable small effusions. Impression: Expiratory exam with findings of CHF and mild e santa READING PHYSICIAN: Nghia Menjivar M.D. -[phone] 05/08/2022 18:57 EDT [facility] National Teleradiology [facility] [phone] (For Medical Practitioner Use Only ) Attention Patients / Veterans: If you have ques tions or concerns about these test results, please contact your o rdering provider or primary care team. Primary Interpreting Staff: RADIOLOGY,OUTSIDE SERVICE, Staff Physician / May 07, 2022 10:29 CT HEAD (P): SHANI POLANCO [facility] AM LUISANA EDDY [id number] -1935 M Exm Date: MAY 07, 2022@10:29 Req Phys: BETO AYALA Loc: OP Unknown/0 05-13-2022@05:05 Img Loc: CT IMAGING Service: PRIMARY CARE - MED OFFICE (Case [id number] COMPLETE) CT HEAD/BRAIN W/O CONTRAST ( CT Detailed) CPT:39890 Reason for Study: seizure noted at [facility] Clinical History: IS NOT under investigation for COVID-19 or is COVID-19 negative Defer to radiologist for final CT protocol. Responsible provider name and phone number to n otify for critical findings if other than user placing the order a nd pager listed below: User placing orders pager: [phone] LAST 3: Collection DT Specimen Test Name [...] GFR (eGF 44 L Ref: >=60 Allergies: ([place] only) SIMVASTATIN (Feb 29, 2004) CEPHALEXIN (Mar 01, 2004) Report Status: Verified Date Reported: MAY 07, 2022 Date Verified: MAY 07, 2022 Engineer Of System Development E-Sig:/ES/SHANI POLANCO MD Report: EXAM: CT HEAD/BRAIN [...] lis nola below: User placing orders pager: [phone] LAST 3: Collecti on DT Specimen Test [...] Primary Interpreting Staff: SHANI POLANCO MD, RADIOLOGIST (Engineer Of System Development) /Javed May 06, 2022 11:40 CHEST 1 VIEW: RADIOLOGY,OUTSIDE [facility] AM LUISANA EDDY [id number] -1935 M SERVICE Exm Date: MAY 06, 2022@11:40 Req Phys: MODESTA VILLANUEVA Loc: [facility] EMERGENCY DEPT WALK-IN (Re Img Loc: MAIN X-RAY Service: Unknown (Case [id number] COMPLETE) CHEST 1 VIEW (RAD Detailed) C PT:45829 Proc Modifiers : PORTABLE EXAM Reason for [...] pager listed below: User placing orders pager: [phone] LAST CREATININE 1.2 (04/30/22) Report Status: Verified Date Reported: MAY 06, 2022 Date Verified: MAY 06, 2022 Engineer Of System Development E-Sig: Report: Technique: Frontal chest. No comparison Impression: Cardiac silhouette is mildly enlarged. There is mild pulmonary venous congestion. No definite pleural effusion . No pneumothorax seen. READING PHYSICIAN: Vern Donnelly M.D. -[phone] 05/06/2022 13:26 EDT [facility] T[facility]iology [facility] [phone] (For Medical Practitioner Use Only ) Attention Patients / Veterans: If you have ques tions or concerns about these test results, please contact your o rdering provider or primary care team. Primary Interpreting Staff: RADIOLOGY,OUTSIDE SERVICE, Staff Physician / May 06, 2022 10:36 CT (AP) ABDOMEN/PELVIS (P): RADIOLOGY,OUTSIDE [facility] LUISANA EDDY [id number] -1935 M SERVICE Exm Date: MAY 06, 2022@10:36 Req Phys: MODESTA VILLANUEVA Loc: [facility] EMERGENCY DEPT WALK-IN (Re Img Loc: CT IMAGING Service: Unknown (Case [id number] COMPLETE) CT (AP) ABDOMEN/PELVIS W CONT RAST(CT Detailed) CPT:86284 Reason for Study: fever, back pain Clinical History: fever, back pain, ecchymosis left low back consideration for intra-abdominal process, aort ic changes, LS spine trauma, kidney inflammation, GI or obs truction [place] IS under investigation (PUI) for COVID- 19 or is COVID-19+ Defer to radiologist for final CT protocol. Please enter pertinent clinical history on the next page. Responsible provider name and phone number to n otify for critical findings if other than user placing the order a nd pager listed below: User placing orders pager: [phone] LAST 3: Collection DT Specimen Test Name [...] ESTIMATED GFR(eGF 44 L Ref: >=60 Allergies: ([place] only) SIMVASTATIN (Feb 29, 2004) CEPHALEXIN (Mar 01, 2004) To see allergies from all [facility] locations click Re ports tab>Remote Data>All Available Sites>Clinical Reports>Aller gies. Report Status: Verified Date Reported: MAY 06, 2022 Date Verified: MAY 06, 2022 Engineer Of System Development E-Sig: Report: Exam: CT (AP) ABDOMEN/PELVIS W CONTRAST [PRINTS ET] Clinical History: fever, back pain Number of images: 918 Comparison: No priors available Technique: The study was protocoled and supervi sed at the local [place] facility. CT of the abdomen and pelvis [...] findings, above. READING PHYSICIAN: Eduin Donaldson M.D. -[phone] 05/06/2022 12:48 [facility] [employer] Teleradiology [facility] [phone] (For Medical Practitioner Use Only ) Attention Patients / Veterans: If you have ques tions or concerns about these test results, please [facility] or primary care team. Primary Interpreting Staff: RADIOLOGY,OUTSIDE SERVICE, Staff Physician / May 06, 2022 10:35 CT HEAD/BRAIN W/O CONTRAST: RADIOLOGY,OUTSIDE [facility] LUISANA EDDY [id number] -1935 M SERVICE Exm Date: MAY 06, 2022@10:35 Req Phys: MODESTA VILLANUEVA Loc: [facility] EMERGENCY DEPT WALK-IN (Re Img Loc: CT IMAGING Service: Unknown (Case 64 COMPLETE) CT HEAD/BRAIN W/O CONTRAST (C T Detailed) CPT:00829 Reason for Study: falls, blood thinner, AMS, se izure Clinical History: falls, blood thinner, AMS, seizure IS under investigation (PUI) for COVID- 19 or is COVID-19+ Defer to radiologist for final CT protocol. Responsible provider name and phone number to n otify for critical findings if other than user placing the order a nd pager listed below: User placing orders pager: [phone] LAST 3: Collection DT Specimen Test Name [...] ESTIMATED GFR(eGF 44 L Ref: >=60 Allergies: ([place] only) SIMVASTATIN (Feb 29, 2004) CEPHALEXIN (Mar 01, 2004) To see allergies from all [place] locations click Re ports tab>Remote Data>All Available Sites>Clinical Reports>Aller gies. Report Status: Verified Date Reported: MAY 06, 2022 Date Verified: MAY 06, 2022 Engineer Of System Development E-Sig: Report: CT HEAD/BRAIN W/O CONTRAST Clinical [...] T findings. READING PHYSICIAN: Eduin Donaldson M.D. -[phone] 05/06/2022 12:30 [facility] Teleradiology Program [phone] (For Medical Practitioner Use Only ) Attention Patients / Veterans: If you have ques tions or concerns about these test results, please [facility] or primary care team. Primary Interpreting Staff: RADIOLOGY,OUTSIDE SERVICE, Staff Physician / May 06, 2022 10:35 CT CERVICAL SPINE W/O CONTRAST: RADIOLOGY,OUT SIDE [facility] AM LUISANA EDDY [id number] -[phone] M SERVICE Exm Date: MAY 06, 2022@10:35 Req Phys: MODESTA VILLANUEVA Loc: [facility] EMERGENCY DEPT WALK-IN (Re Img Loc: CT IMAGING Service: Unknown (Case 65 COMPLETE) CT CERVICAL SPINE W/O CONTRAS T (CT Detailed) CPT:16705 Reason for Study: falls, blood thinner, AMS, se izure Clinical History: falls, blood thinner, AMS, seizure [place] IS under investigation ([facility]) for COVID- 19 or is COVID-19+ Defer to radiologist for final CT protocol. Responsible provider name and phone number to n otify for critical findings if other than user placing the order a nd pager listed below: User placing orders pager: [phone] LAST 3: Collection DT Specimen Test Name [...] ESTIMATED GFR(eGF 44 L Ref: >=60 Allergies: ([place] only) SIMVASTATIN (Feb 29, 2004) CEPHALEXIN (Mar 01, 2004) To see allergies from all [place] locations click Re ports tab>Remote Data>All Available Sites>Clinical Reports>Aller gies. Report Status: Verified Date Reported: MAY 06, 2022 Date Verified: MAY 06, 2022 Engineer [employer] System Development E-Sig: Report: CT CERVICAL SPINE W/O CONTRAST HISTORY:falls, blood thinner, AMS, seizure NUMBER OF IMAGES:[id number] COMPARISON: None available. TECHNIQUE: A non contrast CT of the cervical sp [place]e was performed at the local [place]. Images were subsequently [facility] to [facility] [...] 11 mm subcutaneous cyst in the ri [facility] upper neck. Impression: -Motion artifact limits the exam. -Given this limitation, no acute osseous abnorm ality. -Moderate multilevel degenerative change throug hout the cervical spine. -Ancillary findings, above. READING PHYSICIAN: Eduin Donaldson M.D. -[phone] 05/06/2022 12:33 [facility] National Teleradiology Program [phone] (For Medical Practitioner Use Only ) Attention Patients / Veterans: If you have ques tions or concerns about these test results, please contact your [facility] provider or primary care team. [...] 2022 05:30 AM LR MICROBIOLOGY REPORT: [facility] [place] [facility] Reporting Lab: [facility] [CLIA# [id number]] [place] [address] Accession [UID]: [id number] [[id number]] Receiv ed: May 09, 2022@01:35 Collection sample: BLOOD Collection date: Apr 05:30 Provider: MALINI,CODIE E Comment on specimen: LEFT ARM, RECEIVED 2 BLOOD CULTURE BOTTLES Test(s) ordered: CULTURE & SUSCEPTIBILITY...... 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 R TRIMETH/SULFA................. S TETRACYCLINE.................. S CLINDAMYCIN................... S RIFAMPIN...................... S VANCOMYCIN.................... S Bacteriology Remark(s): VANCOMYCIN SHAMIKA: <=0.5 ug/mL THIS REPORT IS FINAL =--=--=--=--=--=--=--=--=--=--=--=--=--= --=--=--=--=--=--=--=--=--=--=--=--=-- Performing Laboratory: Bacteriology Report Performed By: [facility] [CLIA# [id number]] [place] [address] May 08, 2022 03:23 PM LR MICROBIOLOGY REPORT: [facility] Reporting Lab: [facility] [CLIA# [id number] 147] [place] [address] Accession [UID]: [id number] [[id number]] Receiv ed: May 08, 2022@15:41 Collection sample: BLOOD Collection date: Apr 15:23 Provider: CODIE LEON Comment on specimen: LEFT ARM, RECEIVED 2 BLOOD CULTURE BOTTLES Test(s) ordered: CULTURE & SUSCEPTIBILITY...... completed: May 10, 2022 * BACTERIOLOGY FINAL REPORT => May 10, 2022 16:3 1 TECH CODE: [id number] CULTURE RESULTS: GROWTH SAME THAT OF ANOTHER CULTURE Comment: FOR SUSCEPTIBILITY REPORT SEE PREVIOUS POSITIVE SAME MB 22 [id number] ( 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 from Anaerobic bottle ) ( Recovered from Aerobic bottle ) Bacteriology Remark(s): THIS REPORT IS FINAL =--=--=--=--=--=--=--=--=--=--=--=--=--= --=--=--=--=--=--=--=--=--=--=--=--=-- Performing Laboratory: Bacteriology Report Performed By: [facility] [CLIA# [id number]] [place] [address] May 08, 2022 03:21 PM LR MICROBIOLOGY REPORT: [facility] Reporting Lab: [facility] [CLIA# [id number] 147] [place] [address] Accession [UID]: [id number] [[id number]] Receiv ed: May 08, 2022@15:40 Collection sample: BLOOD Collection date: Apr 15:21 Provider: CODIE LEON Comment on specimen: RT ARM, RECEIVED 2 BLOOD CU LTURE BOTTLES Test(s) ordered: CULTURE & SUSCEPTIBILITY...... completed: May 10, 2022 * BACTERIOLOGY FINAL REPORT => May 10, 2022 16:3 1 TECH CODE: [id number] CULTURE RESULTS: GROWTH SAME THAT OF ANOTHER CULTURE Comment: FOR SUSCEPTIBILITY REPORT SEE PREVIOUS POSITIVE SAME MB 22 [id number] ( 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 from Anaerobic bottle ) ( Recovered from Aerobic bottle ) Bacteriology Remark(s): THIS REPORT IS FINAL =--=--=--=--=--=--=--=--=--=--=--=--=--= --=--=--=--=--=--=--=--=--=--=--=--=-- Performing Laboratory: Bacteriology Report Performed By: [facility] [CLIA# [id number]] [place] [address] May 07, 2022 05:30 AM LR MICROBIOLOGY REPORT: [facility] Reporting Lab: [facility] [CLIA# [id number] 147] [place] [address] Accession [UID]: [id number] [[id number]] Receiv ed: May 07, 2022@01:35 Collection sample: [...] REPORT SEE PREVIOUS POSITIVE SAME MB 22 [id number] ( 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 from Aerobic bottle ) ( Recovered from Anaerobic bottle ) Bacteriology Remark(s): THIS REPORT IS FINAL =--=--=--=--=--=--=--=--=--=--=--=--=--= --=--=--=--=--=--=--=--=--=--=--=--=-- Performing Laboratory: Bacteriology Report Performed By: [facility] [CLIA# [id number]] [place] [address] May 06, 2022 10:51 AM LR MICROBIOLOGY REPORT: [facility] Reporting Lab: [facility] [CLIA# [id number] 147] [place] [address] Accession [UID]: [id number] [[id number]] Receiv ed: May 06, 2022@11:32 Collection sample: [...] --=--=--=--=--=--=--=--=--=--=--=--=-- Performing Laboratory: Bacteriology Report Performed By: [facility] [CLIA# [id number]] [place] [address] May 06, 2022 10:34 AM LR MICROBIOLOGY REPORT: [facility] Reporting Lab: [facility] [CLIA# [id number] 147] [place] [address] Accession [UID]: [id number] [[id number]] Receiv ed: May 06, 2022@10:51 Collection sample: BLOOD Collection date: Apr 10:34 Provider: MODESTA VILLANUEVA Comment on specimen: RECEIVED 2 BLOOD CULTURE [facility] Test(s) ordered: CULTURE & SUSCEPTIBILITY...... 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 [...] --=--=--=--=--=--=--=--=--=--=--=--=-- Performing Laboratory: Bacteriology Report Performed By: [facility] [CLIA# [id number]] [place] [address] May 06, 2022 10:00 AM LR MICROBIOLOGY REPORT: [facility] Reporting Lab: [facility] [CLIA# [id number] 147] [place] [address] Accession [UID]: [id number] [[id number]] Receiv ed: May 06, 2022@10:41 Collection sample: [...] SEE PREVIOUS POSITIVE SAME LUIS MIGUEL 22 [id number] ( 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 from Anaerobic bottle ) ( Recovered from Aerobic bottle ) Bacteriology Remark(s): THIS REPORT IS FINAL =--=--=--=--=--=--=--=--=--=--=--=--=--= --=--=--=--=--=--=--=--=--=--=--=--=-- Performing Laboratory: Bacteriology Report Performed By: [facility] [CLIA# [id number]] [place] [address]
--- OUTSIDE RECORDS SUMMARY | 2022-05-15 09:33 | XMS_ITS | Encounter Summary ---
:1935 Author Organization [facility] Address [address] [place] [address] Support Name Relationship Address Phone WADE LORENZO Unavailable [address] [place] [address] WADE LORENZO Unavailable [address] [place] [address] MARILIA MARSHALLA Unavailable [address] [place] [address] GOGEORGE, ARACELI Unavailable [address] [place] [address] Insurance Providers: All historical and current Section [...] Chan [place] Aug 19, [id number] Kristel [facility]NR) 2017 8 [id number] [phone] [facility] 1 [place] Aug 19, [id number] Kristel [facility] (WNR) 2016 8 [id number] [phone] [facility] 1 Selected Encounter This section includes the information on record at [place] for the Encounter. Date/Time Encounter Type Encounter Description Reason Provider Source May 07, 2022 01:00 Inpatient Visit ADMIN PAT ACTIVTIES SYS TEM,CIS-ARK AM (MASNONCT) IHE Encounter Template Text not used by [place] Plan of Treatment: Future Appointments (+ 6 months) and Future Tests (+/- 45 days) The Plan of Treatment section includes future care activities for the [facility]. This section includes future appointments [...] 2022 06:15 PM AMBULATORY - NONE [facility] Jul 23, 2022 08:00 AM AMBULATORY - NEUROLOGY [facility] Active, Pending, and Scheduled Orders [...] The data comes from all [place] treatment [facility]. Test Date/Time Test Type Test Details Facility Name Apr 30, 2022 08:21 Laboratory - Chemistry URINALYSIS URINE WC ON CE [facility] AM Order Apr 30, 2022 08:21 Laboratory - CULTURE & SUSCEPTIBILITY [facility] AM Microbiology Order URINE WC May 06, 2022 12:00 Laboratory - Blood ABO/RH - LAB BLOOD [facility] AM Bank Order May 06, 2022 10:11 Laboratory - Blood TYPE & SCREEN - LAB [facility] AM Bank Order BLOOD WC May 06, 2022 10:27 Pharmacy [facility] AM Medication Order May 06, 2022 10:28 [facility] AM Infusion Order May 06, 2022 10:34 [facility] AM Infusion Order May 06, 2022 10:41 [facility] AM Infusion Order May 06, 2022 12:15 [facility] PM Medication Order May 06, 2022 01:31 [facility] PM Medication Order May 06, 2022 04:49 [facility] PM Medication Order May 07, 2022 01:00 Laboratory - CULTURE & SUSCEPTIBILITY [facility] PM Microbiology Order BLOOD WC ONCE May 11, 2022 09:07 Laboratory - CULTURE & SUSCEPTIBILITY [facility] AM Microbiology Order BLOOD WC May 11, 2022 09:07 Laboratory - CULTURE & SUSCEPTIBILITY GILESFaisal [facility] AM Microbiology Order BLOOD WC May 11, 2022 09:38 Laboratory - Chemistry EOSINOPHIL SMEAR,URINE [facility] AM Order URINE WC ONCE May 11, 2022 09:38 Laboratory - Chemistry URINALYSIS URINE WC ON CE [facility] AM Order May 11, 2022 09:38 Laboratory - Chemistry FENA URINE WC ONCE MIN [facility] AM Order Lab Results: [...] Reference Range Comment May 11, 2022 11:13 [facility] FINGERSTICK GLUCOSE Speci men Type: BLOOD AM Comment: Mark casillas Nurse Notified Ordering Provid er: CODIE LEON Report Released Date/Time: May 11, 2022 11:53 AM Reporting Lab: [facility] [address] [facility] [address] Performing Lab: [facility] [address] [facility] [address] FINGERSTICK GLUCOSE 367 H 70-100 May 11, 2022 07:[address] [facility] CBC Specim en Type: BLOOD No comment enter ed. Ordering Provid er: OG DIAL Report Released Date/Time: May 11, 2022 04:46 AM Reporting Lab: [facility] [address] [facility] [address] Performing Lab: [facility] [address] [facility] [address] WBC 15.93 H 4.0-11.0 RBC 3.60 L 4.6-6.2 HGB 11.2 L 13.5-17.9 HCT 35.3 L 41-54 MCV 98.1 80-100 MCH 31.1 27-33 MCHC 31.7 L 32.0-37.5 PLT 231 150-400 MPV 11.2 H 7.4-10.4 RDW 15.2 H 11.5-14.5 May 11, 2022 07:[address] [facility] CK,TOTAL Specim en Type: PLASMA No comment enter ed. Ordering Provid er: CODIE LEON Report Released Date/Time: May 11, 2022 09:08 AM Reporting Lab: [facility] [address] [facility] [address] Performing Lab: [facility] [address] [facility] [address] CK,TOTAL 16 L 39-208 May 11, 2022 07:05 [facility] BASIC METABOLIC Specimen Type: PLASMA AM PANEL+MG No comment enter ed. Ordering Provid er: OG DIAL Report Released Date/Time: May 11, 2022 04:46 AM Reporting Lab: [facility] [address] [facility] [address] Performing Lab: [facility] [address] [facility] [address] CREATININE 1.6 H 0.7-1.2 UREA NITROGEN 28 H 8-26 GLUCOSE 396 H 70-100 SODIUM 150 H 136-145 POTASSIUM 3.7 3.5-5.1 CHLORIDE 120 H 98-107 CO2 23 22-29 CALCIUM 8.4 8.4-10.2 MAGNESIUM 2.1 1.6-2.6 ANION GAP 7 5-15 CREAT EGFR(CKD-EPI) 42 L >60 May 11, 2022 07:[address] [facility] BNP Specim en Type: PLASMA No comment enter ed. Ordering Provid er: CODIE LEON Report Released Date/Time: May 11, 2022 09:15 AM Reporting Lab: [facility] [address] [facility] [address] Performing Lab: [facility] [address] [facility] [address] BNP 59 <99 May 11, 2022 07:05 [facility] LIVER FUNCTION TESTS Spec imen Type: PLASMA AM No comment enter ed. Ordering Provid er: CODIE LEON Report Released Date/Time: May 11, 2022 09:08 AM Reporting Lab: [facility] [address] [facility] [address] Performing Lab: [facility] [address] [facility] [address] BILIRUBIN, TOTAL 1.6 H 0.2-1.2 ALKALINE PHOSPHATASE 102 40-150 ALT/SGPT 42 <55 AST/SGOT 30 <34 GAMMA GTP 52 <64 DIR. BILIRUBIN 1.2 H <0.5 May 11, 2022 06:14 [facility] FINGERSTICK GLUCOSE Speci men Type: BLOOD AM Comment: Mark casillas Nurse Notified Ordering Provid er: CODIE LEON Report Released Date/Time: May 11, 2022 06:42 AM Reporting Lab: [facility] [address] [facility] [address] Performing Lab: [facility] [address] [facility] [address] FINGERSTICK GLUCOSE 345 H 70-100 May 11, 2022 02:24 [facility] FINGERSTICK GLUCOSE Speci men Type: BLOOD AM Comment: Mark casilals Ordering Provid er: CODIE LEON Report Released Date/Time: May 11, 2022 02:44 AM Reporting Lab: [facility] [address] [facility] [address] Performing Lab: [facility] [address] [facility] [address] FINGERSTICK GLUCOSE 375 H 70-100 May 10, 2022 08:38 [facility] FINGERSTICK GLUCOSE Speci men Type: BLOOD PM Comment: Mark casillas Ordering Provid er: CODIE LEON Report Released Date/Time: May 11, 2022 12:31 AM Reporting Lab: [facility] [address] [facility] [address] Performing Lab: [facility] [address] [facility] [address] FINGERSTICK GLUCOSE 346 H 70-100 May 10, 2022 05:05 [facility] FINGERSTICK GLUCOSE Speci men Type: BLOOD PM Comment: Mark casillas Nurse Notified Ordering Provi violeta: CODIE LEON Report Released Date/Time: May 10, 2022 11:50 PM Reporting Lab: [facility] [address] [facility] [address] Performing Lab: [facility] [address] [facility] [address] FINGERSTICK GLUCOSE 245 H 70-100 May 10, 2022 02:00 [facility] VANCOMYCIN (TROUGH) Speci men Type: PLASMA PM No comment enter ed. Ordering Provid er: CODIE LEON Report Released Date/Time: May 11, 2022 01:34 AM Reporting Lab: [facility] [address] [facility] [address] Performing Lab: [facility] [address] [facility] [address] VANCOMYCIN (TROUGH) 31.8 H 10.0-15.0 May 10, 2022 [facility] BASIC METABOLIC Specimen Typ e: PLASMA 02:00 PM PANEL+MG No comment enter ed. Ordering Provid er: CODIE LEON Report Released Date/Time: May 11, 2022 01:34 AM Reporting Lab: [facility] [address] Performing Lab: [facility] [address] CREATININE 1.1 .7-1.2 UREA NITROGEN 22 8-26 GLUCOSE 279 H 70-100 SODIUM 150 H 136-145 POTASSIUM 3.2 L 3.5-5.1 CHLORIDE 116 H 98-107 CO2 23 22-29 CALCIUM 8.5 8.4-10.2 MAGNESIUM 2.0 1.6-2.6 ANION GAP 11 5-15 CREAT EGFR(CKD-EPI) 65 >60 May 10, 2022 01:[address] [facility] CBC & DIFF Specim en Type: BLOOD Comment: Automa nola Differential Performed Ordering Provid er: MD ESTEBAN Report Released Date/Time: May 10, 2022 08:52 PM Reporting Lab: [facility] [address] Performing Lab: [facility] [address] WBC 16.24 H 4.0-11.0 RBC 3.76 L [...] 0.28 H 0-0.1 May 10, 2022 11:07 [facility] FINGERSTICK GLUCOSE Speci men Type: BLOOD AM Comment: Mark casillas Nurse Notified Ordering Provid er: CODIE LEON Report Released Date/Time: May 11, 2022 12:31 AM Reporting Lab: [facility] [address] [facility] [address] Performing Lab: [facility] [address] [facility] [address] FINGERSTICK GLUCOSE 253 H 70-100 May 10, 2022 06:16 [facility] FINGERSTICK GLUCOSE Speci men Type: BLOOD AM Comment: Mark casillas Nurse Notified Ordering Provid er: CODIE LEON Report Released Date/Time: May 10, 2022 11:50 PM Reporting Lab: [facility] [address] [facility] [address] Performing Lab: [facility] [address] [facility] [address] FINGERSTICK GLUCOSE 271 H 70-100 May 09, 2022 09:07 [facility] FINGERSTICK GLUCOSE Speci men Type: BLOOD PM Comment: Mark casillas Ordering Provid er: CODIE LEON Report Released Date/Time: May 10, 2022 11:50 PM Reporting Lab: [facility] [address] [facility] [address] Performing Lab: [facility] [address] [facility] [address] FINGERSTICK GLUCOSE 209 H 70-100 May 09, 2022 05:33 [facility] FINGERSTICK GLUCOSE Speci men Type: BLOOD PM Comment: Mark casillas Nurse Notified Ordering Provid er: CODIE LEON Report Released Date/Time: May 09, 2022 05:53 PM Reporting Lab: [facility] [address] [facility] [address] Performing Lab: [facility] [address] [facility] [address] FINGERSTICK GLUCOSE 251 H 70-100 May 09, 2022 02:09 [facility] VANCOMYCIN (PEAK) Specime n Type: SERUM PM No comment enter ed. Ordering Provid er: AMARIS DE JESUS Report Released Date/Time: May 09, 2022 09:33 AM Reporting Lab: [facility] [address] [facility] [address] Performing Lab: [facility] [address] [facility] [address] VANCOMYCIN (PEAK) 24.2 20.0-40.0 May 09, 2022 11:19 [facility] FINGERSTICK GLUCOSE Speci men Type: BLOOD AM Comment: Mark casillas Nurse Notified Ordering Provid er: CODIE LEON Report Released Date/Time: May 09, 2022 11:38 AM Reporting Lab: [facility] [address] [facility] [address] Performing Lab: [facility] [address] [facility] [address] FINGERSTICK GLUCOSE 240 H 70-100 May 09, 2022 08:13 [facility] VANCOMYCIN (TROUGH) Speci men Type: SERUM AM No comment enter ed. Ordering Provid er: AMARIS DE JESUS Report Released Date/Time: May 08, 2022 11:14 AM Reporting Lab: [facility] [address] [facility] [address] Performing Lab: [facility] [address] [facility] [address] VANCOMYCIN (TROUGH) 16.1 H 10.0-15.0 May 09, 2022 05:[address] [facility] CBC & DIFF Specim en Type: BLOOD Comment: Automa nola Differential Performed Ordering Provid er: CODIE LEON Report Released Date/Time: May 08, 2022 05:27 PM Reporting Lab: [facility] [address] [facility] [address] Performing Lab: [facility] [address] [facility] [address] WBC 14.92 H 4.0-11.0 RBC 3.41 L [...] GRAN 0.16 H 0-0.1 May 09, 2022 [facility] COMPREHENSIVE METABOLIC Spec imen Type: PLASMA 05:32 AM PANEL+MG No comment enter ed. Ordering Provid er: CODIE LEON Report Released Date/Time: May 08, 2022 05:27 PM Reporting Lab: [facility] [address] [facility] [address] Performing Lab: [facility] [address] [facility] [address] CREATININE 1.2 0.7-1.2 UREA NITROGEN 25 8-26 [...] 59 L >60 May 09, 2022 05:16 [facility] FINGERSTICK GLUCOSE Speci men Type: BLOOD AM Comment: Mark casillas Nurse Notified Ordering Provid er: CODIE LEON Report Released Date/Time: May 09, 2022 07:27 AM Reporting Lab: [facility] [address] [facility] [address] Performing Lab: [facility] [address] [facility] [address] FINGERSTICK GLUCOSE 295 H 70-100 May 08, 2022 09:[address] [facility] EXTRA MINT TUBE Specim en Type: PLASMA No comment enter ed. Ordering Provid er: MD ESTEBAN Report Released Date/Time: May 08, 2022 09:32 PM Reporting Lab: [facility] [address] [facility] [address] Performing Lab: [facility] [address] [facility] [address] EXTRA MINT TUBE RECEIVED May 08, 2022 09:[address] [facility] EXTRA PURPLE TUBE Spec imen Type: BLOOD No comment enter ed. Ordering Provid er: MD ESTEBAN Report Released Date/Time: May 08, 2022 09:32 PM Reporting Lab: [facility] [address] [facility] [address] Performing Lab: [facility] [address] [facility] [address] EXTRA PURPLE TUBE RECEIVED May 08, 2022 09:32 [facility] EXTRA GOLD GEL TUBE Speci men Type: SERUM PM No comment enter ed. Ordering Provid er: MD ESTEBAN Report Released Date/Time: May 08, 2022 09:32 PM Reporting Lab: [facility] [address] [facility] [address] Performing Lab: [facility] [address] [facility] [address] EXTRA GOLD GEL TUBE RECEIVED May 08, 2022 09:[address] [facility] EXTRA BLUE TUBE Specim en Type: PLASMA No comment enter ed. Ordering Provid er: MD ESTEBAN Report Released Date/Time: May 08, 2022 09:32 PM Reporting Lab: [facility] [address] [facility] [address] Performing Lab: [facility] [address] [facility] [address] EXTRA BLUE TUBE RECEIVED May 08, 2022 09:[address] [facility] EXTRA BRASWELL TUBE Specim en Type: PLASMA No comment enter ed. Ordering Provid er: MD ESTEBAN Report Released Date/Time: May 08, 2022 09:37 PM Reporting Lab: [facility] [address] [facility] [address] Performing Lab: [facility] [address] [facility] [address] EXTRA BRASWELL TUBE RECEIVED May 08, 2022 09:[address] [facility] LACTIC ACID Specim en Type: PLASMA No comment enter ed. Ordering Provid er: OG DIAL Report Released Date/Time: May 08, 2022 09:49 PM Reporting Lab: [facility] [address] [facility] [address] Performing Lab: [facility] [address] [facility] [address] LACTIC ACID 2.5 H 0.5-2.2 May 08, 2022 09:[address] [facility] BNP Specim en Type: PLASMA No comment enter ed. Ordering Provid er: OG DIAL Report Released Date/Time: May 08, 2022 09:50 PM Reporting Lab: [facility] [address] [facility] [address] Performing Lab: [facility] [address] [facility] [address] BNP 897 H <99 May 08, 2022 09:[address] [facility] BLOOD GASES Specim en Type: VENOUS BLOOD Comment: O2 THE RAPY = 3L PM Ordering Provid er: OG DIAL Report Released Date/Time: May 08, 2022 09:50 PM Reporting Lab: [facility] [address] Performing Lab: [facility] [address] PH 7.36 7.33-7.43 PCO2 47 41-51 BICARBONATE 24.4 21.0-30.0 PO2 31 L 35-40 OXYGEN SATURATION 54.7 L 70.0-75.0 PH(TEMP CORRECTED) 7.37 7.33-7.43 PCO2(TEMP CORRECTED) 46 41-51 PO2(TEMP CORRECTED) 31 L 35-40 PATIENT TEMPERATURE 36.7 May 08, 2022 09:[address] [facility] CBC Specim en Type: BLOOD No comment enter ed. Ordering Provid er: OG DIAL Report Released Date/Time: May 08, 2022 09:50 PM Reporting Lab: [facility] [address] Performing Lab: [facility] [address] WBC 18.54 H 4.0-11.0 RBC 3.68 L 4.6-6.2 HGB 11.5 L 13.5-17.9 HCT 35.1 L 41-54 MCV 95.4 80-100 MCH 31.3 27-33 MCHC 32.8 32.0-37.5 PLT 221 150-400 MPV 11.1 H 7.4-10.4 RDW 14.9 H 11.5-14.5 May 08, 2022 [facility] COMPREHENSIVE METABOLIC Spec imen Type: PLASMA 09:32 PM PANEL+MG No comment enter ed. Ordering Provid er: OG DIAL Report Released Date/Time: May 08, 2022 09:50 PM Reporting Lab: [facility] [address] Performing Lab: [facility] [address] CREATININE 1.3 H 0.7-1.2 UREA NITROGEN 26 [...] 54 L >60 May 08, 2022 08:27 [facility] FINGERSTICK GLUCOSE Speci men Type: BLOOD PM Comment: Mark casillas Nurse Notified Ordering Provid er: CODIE LEON Report Released Date/Time: May 08, 2022 08:55 PM Reporting Lab: [facility] [address] [facility] [address] Performing Lab: [facility] [address] [facility] [address] FINGERSTICK GLUCOSE 272 H 70-100 May 08, 2022 06:56 [facility] FINGERSTICK GLUCOSE Speci men Type: BLOOD PM Comment: Mark casillas Ordering Provid er: CODIE LEON Report Released Date/Time: May 08, 2022 07:08 PM Reporting Lab: [facility] [address] [facility] [address] Performing Lab: [facility] [address] [facility] [address] FINGERSTICK GLUCOSE 262 H 70-100 May 08, 2022 04:50 [facility] FINGERSTICK GLUCOSE Speci men Type: BLOOD PM Comment: Nurse Notified Ordering Provid er: CODIE LEON Report Released Date/Time: May 08, 2022 05:14 PM Reporting Lab: [facility] [address] [facility] [address] Performing Lab: [facility] [address] [facility] [address] FINGERSTICK GLUCOSE 330 H 70-100 May 08, 2022 11:21 [facility] FINGERSTICK GLUCOSE Speci men Type: BLOOD AM Comment: Mark casillas Nurse Notified Ordering Provid er: CODIE LEON Report Released Date/Time: May 08, 2022 11:51 AM Reporting Lab: [facility] [address] [facility] [address] Performing Lab: [facility] [address] [facility] [address] FINGERSTICK GLUCOSE 231 H 70-100 May 08, 2022 07:[address] [facility] CBC & DIFF Specim en Type: BLOOD Comment: Automa nola Differential Performed Ordering Provid er: BETO AYALA Report Released Date/Time: May 07, 2022 12:28 PM Reporting Lab: [facility] [address] [facility] [address] Performing Lab: [facility] [address] [facility] [address] WBC 16.29 H 4.0-11.0 RBC 3.38 L [...] GRAN 0.26 H 0-0.1 May 08, 2022 [facility] PROTHROMBIN TIME/INR Specime n Type: PLASMA 07:25 AM No comment enter ed. Ordering Provid er: BETO AYALA Report Released Date/Time: May 07, 2022 12:28 PM Reporting Lab: [facility] [address] [facility] [address] Performing Lab: [facility] [address] .INR 1.2 H 0.8-1.1 .PT 14.2 H 9.4-12.5 May 08, 2022 [facility] COMPREHENSIVE METABOLIC Spec imen Type: PLASMA 07:25 AM PANEL+MG No comment enter ed. Ordering Provid er: BETO AYALA Report Released Date/Time: May 07, 2022 12:28 PM Reporting Lab: [facility] [address] [facility] [address] Performing Lab: [facility] [address] [facility] [address] CREATININE 1.1 0.7-1.2 UREA NITROGEN 27 H [...] EGFR(CKD-EPI) 65 >60 May 08, 2022 06:53 [facility] FINGERSTICK GLUCOSE Speci men Type: BLOOD AM Comment: Mark casillas Ordering Provid er: CODIE LEON Report Released Date/Time: May 08, 2022 07:18 AM Reporting Lab: [facility] [address] [facility] [address] Performing Lab: [facility] [address] [facility] [address] FINGERSTICK GLUCOSE 276 H 70-100 May 07, 2022 08:36 [facility] FINGERSTICK GLUCOSE Speci men Type: BLOOD PM Comment: Nurse Notified Ordering Provid er: CODIE LEON Report Released Date/Time: May 08, 2022 12:29 AM Reporting Lab: [facility] [address] [facility] [address] Performing Lab: [facility] [address] [facility] [address] FINGERSTICK GLUCOSE 282 H 70-100 May 07, 2022 07:[address] [facility] LACTIC ACID Specim en Type: PLASMA No comment enter ed. Ordering Provid er: BETO AYALA Report Released Date/Time: May 07, 2022 06:28 PM Reporting Lab: [facility] [address] [facility] [id number] Performing Lab: [facility] [address] [facility] [address] LACTIC ACID 2.0 0.5-2.2 May 07, 2022 04:46 [facility] FINGERSTICK GLUCOSE Speci men Type: BLOOD PM Comment: Nurse Notified Ordering Provid er: BETO AYALA Report Released Date/Time: May 07, 2022 05:00 PM Reporting Lab: [facility] [address] [facility] [id number] Performing Lab: [facility] [address] [facility] [address] FINGERSTICK GLUCOSE 274 H 70-100 May 07, 2022 12:47 [facility] FINGERSTICK GLUCOSE Speci men Type: BLOOD PM Comment: Mark casillas Nurse Notified Ordering Provid er: BETO AYALA Report Released Date/Time: May 07, 2022 05:32 PM Reporting Lab: [facility] ONE [facility] [address] Performing Lab: [facility] [address] [facility] [address] FINGERSTICK GLUCOSE 309 H 70-100 May 07, 2022 06:35 [facility] FINGERSTICK GLUCOSE Speci men Type: BLOOD AM Comment: Mark casillas Nurse Notified Ordering Provid er: GAYLA DOMINGUEZ Report Released Date/Time: May 07, 2022 06:46 AM Reporting Lab: [facility] [place] [facility] [address] Performing Lab: [facility] [address] FINGERSTICK GLUCOSE 352 H 70-100 May 07, 2022 06:[address] [facility] ALBUMIN Specim en Type: PLASMA No comment enter ed. Ordering Provid er: GAYLA DOMINGUEZ Report Released Date/Time: May 06, 2022 06:33 PM Reporting Lab: [facility] [address] [facility] [address] Performing Lab: [facility] [place] [facility] [address] ALBUMIN 3.0 L 3.5-5.2 May 07, 2022 [facility] COMPREHENSIVE METABOLIC Spec imen Type: PLASMA 06:15 AM PANEL+MG No comment enter ed. Ordering Provid er: GAYLA DOMINGUEZ Report Released Date/Time: May 06, 2022 09:11 PM Reporting Lab: [facility] [address] [facility] [address] Performing Lab: [facility] [facility] [address] CREATININE 1.2 0.7-1.2 UREA NITROGEN 25 8-26 [...] L >60 May 07, 2022 06:[address] [facility] CBC & DIFF Specim en Type: BLOOD Comment: Manual Differential Performed Ordering Provid er: GAYLA DOMINGUEZ Report Released Date/Time: May 06, 2022 09:11 PM Reporting Lab: [facility] [address] Performing Lab: [facility] [address] WBC 20.25 H 4.0-11.0 RBC 3.54 L [...] NORMOCYTIC, NORMOCHROMIC May 07, 2022 12:[address] [facility] LACTIC ACID Specim en Type: PLASMA No comment enter ed. Ordering Provid er: GAYLA DOMINGUEZ Report Released Date/Time: May 06, 2022 07:13 PM Reporting Lab: [facility] [address] Performing Lab: [facility] [address] LACTIC ACID 2.7 H 0.5-2.2 May 06, 2022 10:45 [facility] FINGERSTICK GLUCOSE Speci men Type: BLOOD PM Comment: Save R esult Nurse Notified Ordering Provid er: GAYLA DOMINGUEZ Report Released Date/Time: May 07, 2022 12:08 AM Reporting Lab: [facility] [address] [facility] [address] Performing Lab: [facility] [address] [facility] [address] FINGERSTICK GLUCOSE 320 H 70-100 May 06, 2022 06:53 [facility] MRSA SURVL NARES Specimen Type: NARES PM DNA No comment enter ed. Ordering Provid er: GAYLA DOMINGUEZ Report Released Date/Time: May 06, 2022 06:33 PM Reporting Lab: [facility] [address] [facility] [address] Performing Lab: [facility] [address] [facility] [address] MRSA SURVL NARES DNA POSITIVE HH Negative May 06, 2022 06:[address] [facility] LACTIC ACID Specim en Type: PLASMA No comment enter ed. Ordering Provid er: GAYLA DOMINGUEZ Report Released Date/Time: May 06, 2022 06:04 PM Reporting Lab: [facility] [address] [facility] [address] Performing Lab: [facility] [address] [facility] [address] LACTIC ACID 3.1 H 0.5-2.2 May 06, 2022 06:51 [facility] CARDIAC TROPONIN I Specim en Type: PLASMA PM No comment enter ed. Ordering Provid er: GAYLA DOMINGUEZ Report Released Date/Time: May 06, 2022 06:05 PM Reporting Lab: [facility] [address] [facility] [address] Performing Lab: [facility] [address] [address] CARDIAC TROPONIN I <0.028 <0.028 May 06, 2022 06:51 [facility] EXTRA GOLD GEL TUBE Speci men Type: SERUM PM No comment enter ed. Ordering Provid er: GAYLA DOMINGUEZ Report Released Date/Time: May 06, 2022 06:52 PM Reporting Lab: [facility] [address] [facility] [address] Performing Lab: [facility] [address] [facility] [address] EXTRA GOLD GEL TUBE RECEIVED May 06, 2022 06:51 [facility] C-REACTIVE PROTEIN Specim en Type: PLASMA PM No comment enter ed. Ordering Provid er: GAYLA DOMINGUEZ Report Released Date/Time: May 06, 2022 09:29 PM Reporting Lab: [facility] [address] Performing Lab: [facility] [address] C-REACTIVE PROTEIN 392.40 H <5.00 May 06, 2022 10:[address] [facility] URINALYSIS Specim en Type: URINE No comment enter ed. Ordering Provid er: MODESTA VILLANUEVA Report Released Date/Time: May 06, 2022 10:11 AM Reporting Lab: [facility] [address] Performing Lab: [facility] [address] URINE COLOR YELLOW SPECIFIC GRAVITY 1.020 1.003-1.035 [...] ESTERASE 500 NEGATIVE May 06, 2022 10:24 [facility] COVID-19 DIAGNOSTIC Speci men Type: NASOPHARYNGEAL AM PANEL (CEPHEID) Comment: Cephei d GeneXpert ([phone]) Ordering Provid er: MODESTA VILLANUEVA Report Released Date/Time: May 06, 2022 10:11 AM Reporting Lab: [facility] [address] Performing Lab: [facility] [address] COVID-19 (CEPHEID) Not Detected Not Dete cted May 06, 2022 10:[address] [facility] POC ABG/LACTATE Specim en Type: VENOUS BLOOD No comment enter ed. Ordering Provid er: MODESTA VILLANUEVA Report Released Date/Time: May 06, 2022 10:22 AM Reporting Lab: [facility] [address] Performing Lab: [facility] [address] POC PH 7.410 7.31-7.41 POC PCO2 28.9 L 35.00-45.00 POC PO2 82 H 35.0-40.0 POC TCO2 19 L 24.0-29.0 POC HCO3 18.3 L 23.0-28.0 POC BE ECT -6 L -2 POC SO2 96 H 70-75 POC LACTATE 3.62 0.90-1.70 May 06, 2022 10:[address] [facility] PHOSPHORUS Specim en Type: PLASMA No comment enter ed. Ordering Provid er: MODESTA VILLANUEVA Report Released Date/Time: May 06, 2022 10:11 AM Reporting Lab: [facility] [address] [facility] [address] Performing Lab: [facility] [address] [facility] [address] PHOSPHORUS 2.5 2.3-4.7 May 06, 2022 10:00 [facility] PROTHROMBIN TIME/INR Spec imen Type: PLASMA AM No comment enter ed. Ordering Provid er: MODESTA VILLANUEVA Report Released Date/Time: May 06, 2022 10:11 AM Reporting Lab: [facility] [address] [facility] [address] Performing Lab: [facility] [address] [facility] [address] .INR 2.5 H 0.8-1.1 .PT 29.2 H 9.4-12.5 May 06, 2022 10:00 [facility] ACT PART THROMBO TIME Spe cimen Type: PLASMA AM No comment enter ed. Ordering Provid er: MODESTA VILLANUEVA Report Released Date/Time: May 06, 2022 10:11 AM Reporting Lab: [facility] [address] [facility] [address] Performing Lab: [facility] [address] [facility] [address] APTT 37.8 H 25.1-36.5 May 06, 2022 10:00 [facility] CARDIAC TROPONIN I Specim en Type: PLASMA AM Comment: Critic al Value Reported To: BROOKS COTE 05-06-2022 @1053 BY MBB. Critical value report confirmed. Ordering Provid er: MODESTA VILLANUEVA Report Released Date/Time: May 06, 2022 10:11 AM Reporting Lab: [facility] [address] [facility] [address] Performing Lab: [facility] [address] [address] CARDIAC TROPONIN I 0.035 HH <0.028 May 06, 2022 10:[address] [facility] PROCALCITONIN Specim en Type: PLASMA No comment enter ed. Ordering Provid er: MODESTA VILLANUEVA Report Released Date/Time: May 06, 2022 10:11 AM Reporting Lab: [facility] [address] [address] Performing Lab: [facility] [address] [facility] [facility] [address] PROCALCITONIN 22.29 H <0.09 May 06, 2022 10:[address] [facility] LIPASE Specim en Type: PLASMA No comment enter ed. Ordering Provid er: MODESTA VILLANUEVA Report Released Date/Time: May 06, 2022 10:11 AM Reporting Lab: [facility] [address] [facility] [address] Performing Lab: [facility] [address] [facility] [facility] [address] LIPASE <4 <60 May 06, 2022 [facility] COMPREHENSIVE METABOLIC Spec imen Type: PLASMA 10:00 AM PANEL+MG Comment: Manual Differential Performed Ordering Provid er: MODESTA VILLANUEVA Report Released Date/Time: May 06, 2022 10:11 AM Reporting Lab: [facility] [address] [facility] [address] Performing Lab: [facility] [address] [facility] [address] CREATININE 1.3 H 0.7-1.2 UREA NITROGEN 25 [...] 54 L >60 May 06, 2022 10:00 [facility] EXTRA GOLD GEL TUBE Speci men Type: SERUM AM No comment enter ed. Ordering Provid er: LINNEA RAND Report Released Date/Time: May 06, 2022 10:25 AM Reporting Lab: [facility] [address] [facility] [facility] [address] Performing Lab: [facility] [address] [address] EXTRA GOLD GEL TUBE RECEIVED May 06, 2022 10:[address] [facility] CBC & DIFF Specim en Type: BLOOD Comment: Manual Differential Performed Ordering Provid er: MODESTA VILLANUEVA Report Released Date/Time: May 06, 2022 10:11 AM Reporting Lab: [facility] [address] [address] Performing Lab: [facility] [address] [facility] [address] WBC 18.82 H 4.0-11.0 RBC 3.70 L [...] .RBC MORPHOLOGY PRESENT May 06, 2022 09:46 [facility] FINGERSTICK GLUCOSE Speci men Type: BLOOD AM Comment: Mark casillas Nurse Notified Ordering Provid er: MODESTA VILLANUEVA Report Released Date/Time: May 06, 2022 09:59 AM Reporting Lab: [facility] [address] [facility] [address] Performing Lab: [facility] [address] [facility] [address] FINGERSTICK GLUCOSE 369 H 70-100 Apr 30, 2022 09:[address] [facility] CBC Specim en Type: BLOOD No comment enter ed. Ordering Provid er: BILL ROONEY Report Released Date/Time: Apr 30, 2022 08:21 AM Reporting Lab: [facility] [address] [facility] [address] Performing Lab: [facility] [address] [facility] [address] WBC 10.40 4.0-11.0 RBC 3.96 L 4.6-6.2 HGB 12.3 L 13.5-17.9 HCT 37.8 L 41-54 MCV 95.5 80-100 MCH 31.1 27-33 MCHC 32.5 32.0-37.5 PLT 286 150-400 MPV 10.1 7.4-10.4 RDW 14.6 H 11.5-14.5 Apr 30, 2022 [facility] BASIC METABOLIC Specimen Typ e: PLASMA 09:17 AM PANEL+MG No comment enter ed. Ordering Provid er: BILL ROONEY Report Released Date/Time: Apr 30, 2022 08:21 AM Reporting Lab: [facility] [address] Performing Lab: [facility] [address] CREATININE 1.2 0.7-1.2 UREA NITROGEN 26 8-26 [...] Source Pressure Rate Mass Index May 07 [facility] 2021 12:14 [facility] May 07 [facility] 2021 04:56 [facility] May 07 [facility] 2021 03:23 [facility] May 07 266.76 35 [facility] 2021 12:15 lb [facility] Social History: Smoking Status (Most current) and Tobacco Use (All prior to encounter date) This section includes the most current, and the historical, smoking and tobacco-related health factors from the [facility] where the Encounter took place.Current Smoking Status This section includes the most current smoking, or tobacco-related health factor, from the [facility] where the Encounter took place. Date/Time Current Smoking Status Comment Facility Feb 02, 2022 09:30 AM VA-TOBACCO NEVER USED [facility] Tobacco Use History This section includes a history of the smoking, or tobacco- related health factors, that were collected on or before the date of the Encounter. The data comes from the [facility] where the Encounter took place. Date/Time Smoking Status/Tobacco Use Comment Xavi chanel Mar 22, 2021 07:45 AM [place]-TOBACCO NEVER USED [place] [facility] Oct 02, 2019 10:02 AM VA-TOBACCO NEVER USED [place] [facility] May 21, 2018 09:05 AM VA-TOBACCO NEVER USED [place] [facility] December 25, 2017 06:14 PM INPT NO TOBACCO USE IN LAST [address] [facility] Oct 01, 2017 07:34 AM LIFETIME NON-TOBACCO USER [facility] Sep 28, 2016 08:44 AM LIFETIME NON-TOBACCO USER [facility] Oct 14, 2015 07:52 AM LIFETIME NON-TOBACCO USER [facility] Oct 11, 2014 07:59 AM LIFETIME NON-TOBACCO USER [facility] January 15, 2007 07:55 AM LIFETIME NON-TOBACCO USER [facility] Advance Directives: All historical and current Section Date Range: From patient's date of to the date document was created. This section includes ALL of a patient's completed or amended [place] Advance and Rescinded Directives. The entries below indicate that a directive exists for the patient, but an actual copy is not included with this document. The data comes from all [facility]. Date Advance Directives Provider Source Apr 18, 2018 ADVANCE DIRECT[address] LARISSA SIGALA [facility] Apr 18, 2018 ADVANCE DIRECTIVE DISCUSSION RAE [facility] December 23, 2017 CLINICAL WARNING [facility] May 11, [address] BERT [address] [facility] Radiology Reports: +/- 30 days [...] 2022 09:46 CHEST 1 VIEW: SONJA OVALLES [facility] [place] [id number] -1935 M Exm Date: MAY 11, 2022@09:46 Req Phys: CODIE LEON Loc: OP Unknown /05-13-2022@05:05 Img Loc: MAIN X-RAY Service: PRIMARY [facility] OFFICE (Case [id number] COMPLETE) CHEST 1 VIEW (RAD Detailed) CPT:23572 Proc Modifiers : PORTABLE EXAM Reason for [...] 11, 2022 Date Verified: MAY 11, 2022 Regulatory Auditor E-Sig:/ES/SONJA OVALLES MD Report: CHEST 1 VIEW [...] Primary Interpreting Staff: SONJA OVALLES MD, RADIOLOGIST (Regulatory Auditor) /CDC May 10, 2022 03:49 CT HEAD (P): RADIOLOGY,OUTSIDE [facility] PM [place] [id number] -1935 M SERVICE Exm Date: MAY 10, 2022@15:49 Req Phys: MALINIMATTHEW GOODNEY Camron Chantal Loc: OP Unknown /05-13-2022@05:05 Img Loc: CT IMAGING Service: PRIMARY [facility] OFFICE (Case [id number] COMPLETE) CT HEAD/BRAIN W/O CONTRAST (CT Detailed) CPT:99338 Reason for Study: CHANGE IN MENTAL STATUS Clinical History: CHANGE IN MENTAL STATUS. ORDER ADMINISTRATIVELY ENTERED FOLLOWING SYSTEM OUTAGE. Report Status: Verified Date Reported: MAY 10, 2022 Date Verified: MAY 10, 2022 Regulatory Auditor E-Sig: Report: CT HEAD/BRAIN W/O CONTRAST [PRINTSET] HISTORY: Change in mental status. COMPARISON: CT from 05/07/2022. TECHNIQUE: Contiguous axial CT images from the level of the skull base through the skull apex, with coronal and s agittal reformats, performed at the local [place] facility. 321 images were received by the [place] National Teleradiology Program (NTP) for interpretation. RADIATION [...] study. READING PHYSICIAN: Akash Mccoy M.D. -[phone] 05/10/2022 17:35 PDT [facility] National Teleradiology Program [phone] (For Medical Practitioner Use Only ) Attention Patients / Veterans: If you have ques tions or concerns about these test results, please contact your [facility] provider or primary care team. Primary Interpreting Staff: RADIOLOGY,OUTSIDE SERVICE, Staff Physician / May 08, 2022 07:45 CT T-SPINE (P): RADIOLOGY,OUTSIDE [facility] [place] EDDY [id number] -1935 M SERVICE Exm Date: MAY 08, 2022@19:45 Req Phys: CODIE LEON Loc: OP Unknown /05-13-2022@05:05 Img Loc: CT IMAGING Service: PRIMARY CARE - MED OFFICE (Case [id number] COMPLETE) CT SPINE THORACIC W/O CONTR AST (CT Detailed) CPT:64628 Reason for Study: mrsa bacteremia, spinal surge ry - r/o abscess or discitis Clinical History: IS NOT under investigation for COVID-19 or is COVID-19 negative Defer to radiologist for final CT protocol. Responsible provider name and phone number to n otify for critical findings if other than user placing the order a nd pager listed below: User placing orders pager: [phone] LAST 3: Collection DT Specimen Test Name [...] (eGF 44 L Ref: >=60 Allergies: ([place] only) SIMVASTATIN (Feb 29, 2004) CEPHALEXIN (Mar 01, 2004) Report Status: Verified Date Reported: MAY 08, 2022 Date Verified: MAY 08, 2022 Regulatory Auditor E-Sig: Report: CT SPINE THORACIC W/O CONTRAST [PRINTSET] HISTORY:MRSA bacteremia NUMBER OF IMAGES:1151 COMPARISON: Correlation with images from recent CT abdomen and pelvis May 06, 2022 TECHNIQUE: A non contrast CT of the thoracic sp ine was performed at the local [place]. Images were subsequently sent to [facility] [...] thoracic level. READING PHYSICIAN: Luisana Webb MD -[id number] 05/08/2022 19:20 PDT [facility] [employer] [place] Teleradiology Program [phone] (For Medical Practitioner Use Only ) Attention Patients / Veterans: If you have ques tions or concerns about these test results, please contact your [facility] provider or primary care team. Primary Interpreting Staff: RADIOLOGY,OUTSIDE SERVICE, Staff Physician / May 08, 2022 04:48 CHEST 1 VIEW: RADIOLOGY,OUTSIDE [facility] LU[place] EDDY [id number] -1935 M SERVICE Exm Date: MAY 08, 2022@16:48 Req Phys: CODIE LEON Loc: OP Unknown /05-13-2022@05:05 Img Loc: MAIN X-RAY Service: PRIMARY CARE - MED OFFICE (Case [id number] COMPLETE) CHEST 1 VIEW (RAD Detailed) CPT:27374 Proc Modifiers : PORTABLE EXAM Reason for Study: dyspnea Clinical History: [place] IS NOT under investigation for COVID-19 or is COVID-19 negative acute worsening of dyspnea Responsible provider name and phone number to notify for critical findings if other than user placing the order and pager listed below: User placing orders pager: [phone] malini cell [phone] LAST CREATININE 1.1 (05/08/22) Report Status: Verified Date Reported: MAY 08, 2022 Date Verified: MAY 08, 2022 Regulatory Auditor E-Sig: Report: CHEST 1 VIEW HISTORY: dyspnea COMPARISON: 05/06/2022 TECHNIQUE: Frontal view(s) of the chest, submit nola to the [place] National Teleradiology Program (NTP) for interp retation. FINDINGS: Reduced lung volumes. Progressive cardiomegaly, and vascular congestion as well as diffuse interstitial prom inence with probable small effusions. Impression: Expiratory exam with findings of CHF and mild e santa READING PHYSICIAN: Nghia Menjivar M.D. -[id number] [phone] 05/08/2022 18:57 EDT [facility] National Teleradiology Program [phone] (For Medical Practitioner Use Only ) Attention Patients / Veterans: If you have ques tions or concerns about these test results, please contact your o rdering provider or primary care team. Primary Interpreting Staff: RADIOLOGY,OUTSIDE SERVICE, Staff Physician / May 07, 2022 10:29 CT HEAD (P): SHANI POLANCO [facility] AM [place] EDDY [id number] -1935 M Exm Date: MAY 07, 2022@10:29 Req Phys: LUCY,BETOWayne Cornejo Loc: OP Unknown/0 05-13-2022@05:05 Img Loc: CT IMAGING Service: PRIMARY CARE - MED OFFICE (Case [id number] COMPLETE) CT HEAD/BRAIN W/O CONTRAST ( CT Detailed) CPT:36150 Reason for Study: seizure noted at [facility] Clinical History: [place] IS NOT under investigation for COVID-19 or is COVID-19 negative Defer to radiologist for final CT protocol. Responsible provider name and phone number to n otify for critical findings if other than user placing the order a nd pager listed below: User placing orders pager: [phone] LAST 3: Collection DT Specimen Test Name [...] (eGF 44 L Ref: >=60 Allergies: ([place] only) SIMVASTATIN (Feb 29, 2004) CEPHALEXIN (Mar 01, 2004) Report Status: Verified Date Reported: MAY 07, 2022 Date Verified: MAY 07, 2022 Regulatory Auditor E-Sig:/ES/SHANI POLANCO MD Report: EXAM: CT HEAD/BRAIN W/O CONTRAST HISTORY: seizure noted at [facility] Reason for Study: seizure noted at [facility] [place] IS NOT under investigation for COVID-19 or is COVID-19 negative Defer to radiologist for final CT prot ocol. Responsible provider name and phone number to notify for cr itical findings if other than user placing the order and pager lis nola below: User placing orders pager: [phone] LAST 3: Collecti on DT Specimen Test [...] Primary Interpreting Staff: SHANI POLANCO MD, RADIOLOGIST (Regulatory Auditor) /Javed May 06, 2022 11:40 CHEST 1 VIEW: RADIOLOGY,OUTSIDE [facility] [place] EDDY [id number] -1935 M SERVICE Exm Date: MAY 06, 2022@11:40 Req Phys: MODESTA VILLANUEVA Pat Loc: [facility] WALK-IN (Re Img Loc: MAIN X-RAY Service: Unknown (Case [id number] COMPLETE) CHEST 1 VIEW (RAD Detailed) C PT:44990 Proc Modifiers : PORTABLE EXAM Reason for [...] pager listed below: User placing orders pager: [phone] LAST CREATININE 1.2 (09/12/22) Report Status: Verified Date Reported: MAY 06, 2022 Date Verified: MAY 06, 2022 Regulatory Auditor E-Sig: Report: Technique: Frontal chest. No comparison Impression: Cardiac silhouette is mildly enlarged. There is mild pulmonary venous congestion. No definite pleural effusion . No pneumothorax seen. READING PHYSICIAN: Vern oDnnelly M.D. -[id number] 07 05/06/2022 13:26 EDT [facility] National Teleradiology Program [phone] (For Medical Practitioner Use Only ) Attention Patients / Veterans: If you have ques tions or concerns about these test results, please contact your o rdering provider or primary care team. Primary Interpreting Staff: RADIOLOGY,OUTSIDE SERVICE, Staff Physician / May 06, 2022 10:36 CT (AP) ABDOMEN/PELVIS (P): RADIOLOGY,OUTSIDE [facility] LU[place] EDDY [id number] 1935 M SERVICE Exm Date: MAY 06, 2022@10:36 Req Phys: MODESTA VILLANUEVA Loc: [facility] WALK-IN (Re Img Loc: CT IMAGING Service: Unknown (Case [id number] COMPLETE) CT (AP) ABDOMEN/PELVIS W CONT RAST(CT Detailed) CPT:33756 Reason for Study: fever, back pain Clinical History: fever, back pain, ecchymosis left low back consideration for intra-abdominal process, aort ic changes, LS spine trauma, kidney inflammation, GI or obs truction [place] IS under investigation ([facility]I) for COVID- 19 or is COVID-19+ Defer to radiologist for final CT protocol. Please enter pertinent clinical history on the next page. Responsible provider name and phone number to n otify for critical findings if other than user placing the order a nd pager listed below: User placing orders pager: [phone] LAST 3: Collection DT Specimen Test Name [...] GFR(eGF 44 L Ref: >=60 Allergies: ([place] only) SIMVASTATIN (Feb 29, 2004) CEPHALEXIN (Mar 01, 2004) To see allergies from all [facility] locations click Re ports tab>Remote Data>All Available Sites>Clinical Reports>Aller gies. Report Status: Verified Date Reported: MAY 06, 2022 Date Verified: MAY 06, 2022 Regulatory Auditor E-Sig: Report: Exam: CT (AP) ABDOMEN/PELVIS W CONTRAST [PRINTS ET] Clinical History: fever, back pain Number of images: 918 Comparison: No priors available Technique: The study was protocoled and supervi sed at the local [place] facility. CT of the abdomen and pelvis was performed afte r the uneventful administration of iodinated contrast. Images we re received by the [place] National Teleradiology Program (NTP) for interpretation. Total [...] findings, above. READING PHYSICIAN: Eduin Donaldson M.D. -[phone] 05/06/2022 12:48 [facility] [phone] (For Medical Practitioner Use Only ) Attention Patients / Veterans: If you have ques tions or concerns about these test results, please contact your [facility] provider or primary care team. Primary Interpreting Staff: RADIOLOGY,OUTSIDE SERVICE, Staff Physician / May 06, 2022 10:35 CT HEAD/BRAIN W/O CONTRAST: RADIOLOGY,OUTSIDE [facility] LUISANA EDDY [id number] -1935 M SERVICE Exm Date: MAY 06, 2022@10:35 Req Phys: MODESTA VILLANUEVA Loc: [facility] EMERGENCY DEPT WALK-IN (Re Img Loc: CT IMAGING Service: Unknown (Case 64 COMPLETE) CT HEAD/BRAIN W/O CONTRAST (C T Detailed) CPT:80861 Reason for Study: falls, blood thinner, AMS, se izure Clinical History: falls, blood thinner, AMS, seizure [place] IS under investigation (PUI) for COVID- 19 or is COVID-19+ Defer to radiologist for final CT protocol. Responsible provider name and phone number to n otify for critical findings if other than user placing the order a nd pager listed below: User placing orders pager: [phone] LAST 3: Collection DT Specimen Test Name [...] GFR(eGF 44 L Ref: >=60 Allergies: ([place] only) SIMVASTATIN (Feb 29, 2004) CEPHALEXIN (Mar 01, 2004) To see allergies from all [facility] locations click Re ports tab>Remote Data>All Available Sites>Clinical Reports>Aller gies. Report Status: Verified Date Reported: MAY 06, 2022 Date Verified: MAY 06, 2022 Regulatory Auditor E-Sig: Report: CT HEAD/BRAIN W/O CONTRAST Clinical History: falls, blood thinner, AMS, se izure Number of Images: 532 Comparison: 03/12/2022 Technique: The study was protocoled and super[facility] of the head without contrast. I mages were subsequently received by the [place] National Telera diology Program (NTP) for interpretation. [...] T findings. READING PHYSICIAN: Eduin Donaldson M.D. -[phone] 05/06/2022 12:30 [facility] National Teleradiology Program [phone] (For Medical Practitioner Use Only ) Attention Patients / Veterans: If you have ques tions or concerns about these test results, please contact your o [facility] provider or primary care team. Primary Interpreting Staff: RADIOLOGY,OUTSIDE SERVICE, Staff Physician / May 06, 2022 10:35 CT CERVICAL SPINE W/O CONTRAST: RADIOLOGY,OUT SIDE [facility] LUISANA EDDY [id number] -1935 M SERVICE Exm Date: MAY 06, 2022@10:35 Req Phys: MODESTA VILLANUEVA Loc: [facility] EMERGENCY DEPT WALK-IN (Re Img Loc: CT IMAGING Service: Unknown (Case 65 COMPLETE) CT CERVICAL SPINE W/O CONTRAS T (CT Detailed) CPT:19471 Reason for Study: falls, blood thinner, AMS, se izure Clinical History: falls, blood thinner, AMS, seizure IS under investigation (PUI) for COVID- 19 or is COVID-19+ Defer to radiologist for final CT protocol. Responsible provider name and phone number to n otify for critical findings if other than user placing the order a nd pager listed below: User placing orders pager: [phone] LAST 3: Collection DT Specimen Test Name [...] GFR(eGF 44 L Ref: >=60 Allergies: ([place] only) SIMVASTATIN (Feb 29, 2004) CEPHALEXIN (Mar 01, 2004) To see allergies from all [place] locations click Re ports tab>Remote Data>All Available Sites>Clinical Reports>Aller gies. Report Status: Verified Date Reported: MAY 06, 2022 Date Verified: MAY 06, 2022 Regulatory Auditor E-Sig: Report: CT CERVICAL SPINE W/O CONTRAST HISTORY:falls, blood thinner, AMS, seizure NUMBER OF IMAGES:770 COMPARISON: None available. TECHNIQUE: A non contrast CT of the cervical sp ine was performed at the local [place]. Images were subsequently sent to [facility] [...] findings, above. READING PHYSICIAN: Eduin Donaldson M.D. -[phone] 05/06/2022 12:33 [facility] National Teleradiology Program [phone] (For Medical Practitioner Use Only ) Attention [...] comes from all [place] treatment facilities. Date/Time Pathology Report Provider Source May 09, 2022 05:30 AM LR MICROBIOLOGY REPORT: [facility] Reporting Lab: [facility] [CLIA# [id number]] [place] [address] Accession [UID]: [id number] [[id number]] Receiv ed: May 09, 2022@01:35 Collection sample: BLOOD Collection date: Apr 05:30 Provider: CODIE LEON Comment on specimen: LEFT ARM, RECEIVED 2 BLOOD CULTURE BOTTLES Test(s) ordered: CULTURE & SUSCEPTIBILITY...... 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 R TRIMETH/SULFA................. S TETRACYCLINE.................. S CLINDAMYCIN................... S RIFAMPIN...................... S VANCOMYCIN.................... S Bacteriology Remark(s): VANCOMYCIN SHAMIKA: <=0.5 ug/mL THIS REPORT IS FINAL =--=--=--=--=--=--=--=--=--=--=--=--=--= --=--=--=--=--=--=--=--=--=--=--=--=-- Performing Laboratory: Bacteriology Report Performed By: [facility] [CLIA# [id number]] [place] [address] May 08, 2022 03:23 PM LR MICROBIOLOGY REPORT: [facility] Reporting Lab: [facility] [CLIA# [id number]] [place] [address] Accession [UID]: [id number] [[id number]] Receiv ed: May 08, 2022@15:41 Collection sample: BLOOD Collection date: Apr 15:23 Provider: CODIE LEON Comment on specimen: LEFT ARM, RECEIVED 2 BLOOD CULTURE BOTTLES Test(s) ordered: CULTURE & SUSCEPTIBILITY...... completed: May 10, 2022 * BACTERIOLOGY FINAL REPORT => May 10, 2022 16:3 1 TECH CODE: [id number] CULTURE RESULTS: GROWTH SAME THAT OF ANOTHER CULTURE Comment: FOR SUSCEPTIBILITY REPORT SEE PREVIOUS POSITIVE SAME MB [id number] ( 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 from Anaerobic bottle ) ( Recovered from Aerobic bottle ) Bacteriology Remark(s): THIS REPORT IS FINAL =--=--=--=--=--=--=--=--=--=--=--=--=--= --=--=--=--=--=--=--=--=--=--=--=--=-- Performing Laboratory: Bacteriology Report Performed By: [facility] [CLIA# [id number]] [place] [address] May 08, 2022 03:21 PM LR MICROBIOLOGY REPORT: [facility] Reporting Lab: [facility] [CLIA# [id number]] [place] [address] Accession [UID]: [id number] [[id number]] Receiv ed: May 08, 2022@15:40 Collection sample: BLOOD Collection date: Apr 15:21 Provider: CODIE LEON Comment on specimen: RT ARM, RECEIVED 2 BLOOD CU LTURE BOTTLES Test(s) ordered: CULTURE & SUSCEPTIBILITY...... completed: May 10, 2022 * BACTERIOLOGY FINAL REPORT => May 10, 2022 16:3 1 TECH CODE: [id number] CULTURE RESULTS: GROWTH SAME THAT OF ANOTHER CULTURE Comment: FOR SUSCEPTIBILITY REPORT SEE PREVIOUS POSITIVE SAME MB 22 [id number] ( 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 from Anaerobic bottle ) ( Recovered from Aerobic bottle ) Bacteriology Remark(s): THIS REPORT IS FINAL =--=--=--=--=--=--=--=--=--=--=--=--=--= --=--=--=--=--=--=--=--=--=--=--=--=-- Performing Laboratory: Bacteriology Report Performed By: [facility] [CLIA# [id number]] [place] [address] May 07, 2022 05:30 AM LR MICROBIOLOGY REPORT: [facility] Reporting Lab: [facility] [CLIA# [id number]] [place] [address] Accession [UID]: [id number] [[id number]] Receiv ed: May 07, 2022@01:35 Collection sample: [...] REPORT SEE PREVIOUS POSITIVE SAME MB 22 [id number] ( 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 from Aerobic bottle ) ( Recovered from Anaerobic bottle ) Bacteriology Remark(s): THIS REPORT IS FINAL =--=--=--=--=--=--=--=--=--=--=--=--=--= --=--=--=--=--=--=--=--=--=--=--=--=-- Performing Laboratory: Bacteriology Report Performed By: [facility] [CLIA# [id number]] [place] [address] May 06, 2022 10:51 AM LR MICROBIOLOGY REPORT: [facility] Reporting Lab: [facility] [CLIA# [id number]] [place] [address] Accession [UID]: [id number] [[id number]] Receiv ed: May 06, 2022@11:32 Collection sample: [...] --=--=--=--=--=--=--=--=--=--=--=--=-- Performing Laboratory: Bacteriology Report Performed By: [facility] [CLIA# [id number]] [place] [address] May 06, 2022 10:34 AM LR MICROBIOLOGY REPORT: [facility] Reporting Lab: [facility] [CLIA# [id number]] [place] [address] Accession [UID]: [id number] [[id number]] Receiv ed: May 06, 2022@10:51 Collection sample: BLOOD Collection date: Apr 10:34 Provider: MODESTA VILLANUEVA Comment on specimen: [facility]CE[facility] 2 [facility] Test(s) ordered: CULTURE & SUSCEPTIBILITY...... completed: May 07, 2022 * BACTERIOLOGY FINAL REPORT => May 08, 2022 08:3 0 TECH CODE: [id number] CULTURE RESULTS: STAPHYLOCOCCUS AUREUS METHICILL IN RESISTANT [...] --=--=--=--=--=--=--=--=--=--=--=--=-- Performing Laboratory: Bacteriology Report Performed By: [facility] [CLIA# [id number]] [place] [address] May 06, 2022 10:00 AM LR MICROBIOLOGY REPORT: [facility] Reporting Lab: [facility] [CLIA# [id number] 147] [place] [address] Accession [UID]: [id number] [[id number]] Receiv ed: May 06, 2022@10:41 Collection sample: [...] SEE PREVIOUS POSITIVE SAME LUIS MIGUEL 22 [id number] ( 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 from Anaerobic bottle ) ( Recovered from Aerobic bottle ) Bacteriology Remark(s): THIS REPORT IS FINAL =--=--=--=--=--=--=--=--=--=--=--=--=--= --=--=--=--=--=--=--=--=--=--=--=--=-- Performing Laboratory: Bacteriology Report Performed By: [facility] [CLIA# [id number]] [address] [place] [address] Encounter Notes: All associated encounter notes This section contains the clinical notes associated to the Encounter. Date/Time Encounter Note(s) Provider Source May 07, 2022 01:00 AM CRITICAL CARE UNIT NOTE: BRITTANIESatoris-uControlK [facility] FLOWSHEET STANDARD TITLE: CRITICAL CARE UNIT NOTE DATE OF NOTE: MAY 07, 2022@01:00 ENTRY DATE: MAY 08, 2022@01:33:51 AUTHOR: SYSTEM,CIS-ARK EXP COSIGNER: URGENCY: STATUS: COMPLETED This is a place chan only. Please see [place] to view document. /es/ [facility]IS[facility] SYSTEM ICU DOCUMENT IMPORT Signed: 05/08/2022 01:33 May 07, 2022 01:00 AM CRITICAL CARE UNIT NOTE: SYSTEMSatoris-ARK [facility] LOCAL TITLE: [facility] RESPIRATORY THERAPY FLOWSHEET STANDARD TITLE: CRITICAL CARE UNIT NOTE DATE OF NOTE: MAY 07, 2022@01:00 ENTRY DATE: MAY 08, 2022@15:03:47 AUTHOR: SYSTEM,CIS-ARK EXP COSIGNER: URGENCY: STATUS: COMPLETED This is a place chan only. Please see [place] to view document. /es/ [facility] SYSTEM ICU DOCUMENT IMPORT Signed: 05/08/2022 15:03
--- OUTSIDE RECORDS SUMMARY | 2022-05-15 09:33 | XMS_ITS ---
DAILY HOSPITALIZATION DATA [facility] Encounter Summary Created on:May 07, 2022 Patient:LUISANA EDDY Sex:Male :1935 Author Organization Department [facility] Address [address] [place] [address] Support Name Relationship Address Phone WADE LORENZO Unavailable [address] [place] [address] WADE LORENZO Unavailable [address] [place] [address] ARACELI MARSHALL Unavailable [address] [place] [address] MARILIA MARSHALLA Unavailable [address] [place] [address] Insurance Providers: All historical and current Section [...] [place] M[place] Aug 19, [id number] Kristel EDDY [facility] (WNR) ADVANTAGE (WNR) 2016 8 [id number] [phone] [facility] 1 [place] Aug 19, [id number] Kristel EDDY [facility] (WNR) ADVANTAGE (WNR) 2016 8 [id number] [phone] [facility] 1 Selected Encounter This section includes the information on record at [place] for the Encounter. Date/Time Encounter Type Encounter Description Reason Provider Source May 07, 2022 11:52 Inpatient Visit DAILY HOSPITALIZATION DATA PM [facility] Encounter Template Text not used by [place] Plan of Treatment: Future Appointments (+ 6 months) and Future Tests (+/- 45 days) The Plan of Treatment section includes future care activities for the patient from all [place] [facility]. This section includes future appointments and [...] The data comes from all [place] treatment [facility]. Test Date/Time Test Type Test Details Facility Name Apr 30, 2022 08:21 Laboratory - Chemistry URINALYSIS URINE WC ON CE [facility] AM Order Apr 30, 2022 08:21 Laboratory - CULTURE & SUSCEPTIBILITY [facility] AM Microbiology Order URINE WC May 06, 2022 12:00 Laboratory - Blood ABO/RH - LAB BLOOD [facility] AM Bank Order May 06, 2022 10:11 Laboratory - Blood TYPE & SCREEN - LAB [facility] AM Bank Order BLOOD WC May 06, 2022 10:27 Pharmacy [facility] AM Medication Order May 06, 2022 10:28 [facility] AM Infusion Order May 06, 2022 10:34 [facility] AM Infusion Order May 06, 2022 10:41 [facility] AM Infusion Order May 06, 2022 12:15 [facility] PM Medication Order May 06, 2022 01:31 [facility] PM Medication Order May 06, 2022 04:49 [facility] PM Medication Order May 07, 2022 01:00 Laboratory - CULTURE & SUSCEPTIBILITY [facility] PM Microbiology Order BLOOD WC ONCE May 11, 2022 09:07 Laboratory - [facility] AM Microbiology Order BLOOD WC May 11, 2022 09:07 Laboratory - CULTURE & SUSCEPTIBILITY [facility] AM Microbiology Order BLOOD WC May 11, 2022 09:38 Laboratory - Chemistry EOSINOPHIL SMEAR,URINE [facility] AM Order URINE WC ONCE May 11, 2022 09:38 Laboratory - Chemistry URINALYSIS URINE WC ON CE [facility] AM Order May 11, 2022 09:38 Laboratory - Chemistry FENA URINE WC ONCE [facility] AM Order Lab Results: +/- 30 [...] May 11, 2022 11:53 AM Reporting Lab: [facility] [address] [facility] [address] Performing Lab: [facility] [address] [facility] [address] FINGERSTICK GLUCOSE 367 H 70-100 May 11, 2022 07:05 AM [facility] CBC Specim en Type: BLOOD No comment enter ed. Ordering Provid er: OG DIAL Report Released Date/Time: May 11, 2022 04:46 AM Reporting Lab: [facility] [address] [facility] [address] Performing Lab: [facility] [address] [facility] [address] WBC 15.93 H 4.0-11.0 RBC 3.60 L 4.6-6.2 HGB 11.2 L 13.5-17.9 HCT 35.3 L 41-54 MCV 98.1 80-100 MCH 31.1 27-33 MCHC 31.7 L 32.0-37.5 PLT 231 150-400 MPV 11.2 H 7.4-10.4 RDW 15.2 H 11.5-14.5 May 11, 2022 07:05 [facility] BASIC METABOLIC Specimen Type: PLASMA AM PANEL+MG No comment enter ed. Ordering Provid er: OG DIAL Report Released Date/Time: May 11, 2022 04:46 AM Reporting Lab: [facility] [address] [facility] [address] Performing Lab: [facility] [address] [facility] [address] CREATININE 1.6 H 0.7-1.2 UREA NITROGEN 28 [...] Lab: [facility] [address] [facility] [address] Performing Lab: [facility] [address] [facility] [address] CK,TOTAL 16 L 39-208 May 11, 2022 07:05 AM [facility] BNP Specim en Type: PLASMA No comment enter ed. Ordering Provid er: CODIE LEON Report Released Date/Time: May 11, 2022 09:15 AM Reporting Lab: [facility] [address] [facility] [address] Performing Lab: [facility] [address] [facility] [address] BNP 59 <99 May 11, 2022 07:05 [facility] LIVER FUNCTION TESTS Spec imen Type: PLASMA AM No comment enter ed. Ordering Provid er: CODIE LEON Report Released Date/Time: May 11, 2022 09:08 AM Reporting Lab: [facility] [address] [facility] [address] Performing Lab: [facility] [address] [facility] [address] BILIRUBIN, TOTAL 1.6 H 0.2-1.2 ALKALINE PHOSPHATASE 102 40-150 ALT/SGPT 42 <55 AST/SGOT 30 <34 GAMMA GTP 52 <64 DIR. BILIRUBIN 1.2 H <0.5 May 11, 2022 06:14 [facility] FINGERSTICK GLUCOSE Speci men Type: BLOOD AM Comment: Mark casillas Nurse Notified Ordering Provid er: CODIE LEON Report Released Date/Time: May 11, 2022 06:42 AM Reporting Lab: [facility] [address] [facility] [address] Performing Lab: [facility] [address] [facility] [address] FINGERSTICK GLUCOSE 345 H 70-100 May 11, 2022 02:24 [facility] FINGERSTICK GLUCOSE Speci men Type: BLOOD AM Comment: Mark casillas Ordering Provid er: CODIE LEON Report Released Date/Time: May 11, 2022 02:44 AM Reporting Lab: [facility] [address] [facility] [address] Performing Lab: [facility] [address] [facility] [address] FINGERSTICK GLUCOSE 375 H 70-100 May 10, 2022 08:38 [facility] FINGERSTICK GLUCOSE Speci men Type: BLOOD PM Comment: Mark casillas Ordering Provid er: CODIE LEON Report Released Date/Time: May 11, 2022 12:31 AM Reporting Lab: [facility] [address] [facility] [address] Performing Lab: [facility] [address] [facility] [address] FINGERSTICK GLUCOSE 346 H 70-100 May 10, 2022 05:05 [facility] FINGERSTICK GLUCOSE Speci men Type: BLOOD PM Comment: Mark casillas Nurse Notified Ordering Provid er: CODIE LEON Report Released Date/Time: May 10, 2022 11:50 PM Reporting Lab: [facility] [address] [facility] [address] Performing Lab: [facility] [address] [facility] [address] FINGERSTICK GLUCOSE 245 H 70-100 May 10, 2022 02:00 [facility] VANCOMYCIN (TROUGH) Speci men Type: PLASMA PM No comment enter ed. Ordering Provid er: CODIE LEON Report Released Date/Time: May 11, 2022 01:34 AM Reporting Lab: [facility] [address] [facility] [address] Performing Lab: [facility] [address] [facility] [address] VANCOMYCIN (TROUGH) 31.8 H 10.0-15.0 May 10, 2022 [facility] BASIC METABOLIC Specimen Typ e: PLASMA 02:00 PM PANEL+MG No comment enter ed. Ordering Provid er: CODIE LEON Report Released Date/Time: May 11, 2022 01:34 AM Reporting Lab: [facility] [address] Performing Lab: [facility] [address] CREATININE 1.1 .7-1.2 UREA NITROGEN 22 8-26 [...] May 10, 2022 08:52 PM Reporting Lab: [facility] [address] Performing Lab: [facility] [address] WBC 16.24 H 4.0-11.0 RBC 3.76 L [...] [facility] [address] [facility] [address] Performing Lab: [facility] [address] [facility] [address] FINGERSTICK GLUCOSE 253 H 70-100 May 10, 2022 06:16 [facility] FINGERSTICK GLUCOSE Speci men Type: BLOOD AM Comment: Mark casillas Nurse Notified Ordering Provid er: CODIE LEON Report Released Date/Time: May 10, 2022 11:50 PM Reporting Lab: [facility] [address] [facility] [address] Performing Lab: [facility] [address] [facility] [address] FINGERSTICK GLUCOSE 271 H 70-100 May 09, 2022 09:07 [facility] FINGERSTICK GLUCOSE Speci men Type: BLOOD PM Comment: Mark casillas Ordering Provid er: CODIE LEON Report Released Date/Time: May 10, 2022 11:50 PM Reporting Lab: [facility] [address] [facility] [address] Performing Lab: [facility] [address] [facility] [address] FINGERSTICK GLUCOSE 209 H 70-100 May 09, 2022 05:33 [facility] FINGERSTICK GLUCOSE Speci men Type: BLOOD PM Comment: Mark casillas Nurse Notified Ordering Provid er: CODIE LEON Report Released Date/Time: May 09, 2022 05:53 PM Reporting Lab: [facility] [address] [facility] [address] Performing Lab: [facility] [address] [facility] [address] FINGERSTICK GLUCOSE 251 H 70-100 May 09, 2022 02:09 [facility] VANCOMYCIN (PEAK) Specime n Type: SERUM PM No comment enter ed. Ordering Provid er: AMARIS DE JESUS Report Released Date/Time: May 09, 2022 09:33 AM Reporting Lab: [facility] [address] [facility] [address] Performing Lab: [facility] [address] [facility] [address] VANCOMYCIN (PEAK) 24.2 20.0-40.0 May 09, 2022 11:19 [facility] FINGERSTICK GLUCOSE Speci men Type: BLOOD AM Comment: Mark casillas Nurse Notified Ordering Provid er: CODIE LEON Report Released Date/Time: May 09, 2022 11:38 AM Reporting Lab: [facility] [address] Performing Lab: [facility] [address] FINGERSTICK GLUCOSE 240 H 70-100 May 09, 2022 08:13 [facility] VANCOMYCIN (TROUGH) Speci men Type: SERUM AM No comment enter ed. Ordering Provid er: AMARIS DE JESUS Report Released Date/Time: May 08, 2022 11:14 AM Reporting Lab: [facility] [address] Performing Lab: [facility] [address] VANCOMYCIN (TROUGH) 16.1 H 10.0-15.0 May 09, 2022 05:33 AM [facility] CBC & DIFF Specim en Type: BLOOD Comment: Automa nola Differential Performed Ordering Provid er: CODIE LEON Report Released Date/Time: May 08, 2022 05:27 PM Reporting Lab: [facility] [address] Performing Lab: [facility] [address] WBC 14.92 H 4.0-11.0 RBC 3.41 L [...] No comment enter ed. Ordering Provid er: MALINI,CODIE E Report Released Date/Time: May 08, 2022 05:27 PM Reporting Lab: [facility] [address] [facility] [address] Performing Lab: [facility] [address] [facility] [address] [facility] [address] CREATININE 1.2 0.7-1.2 UREA NITROGEN 25 8-26 [...] May 09, 2022 07:27 AM Reporting Lab: [facility] [address] Performing Lab: [facility] [address] FINGERSTICK GLUCOSE 295 H 70-100 May 08, 2022 09:32 PM [facility] EXTRA MINT TUBE Specim en Type: PLASMA No comment enter ed. Ordering Provid er: MD ESTEBAN Report Released Date/Time: May 08, 2022 09:32 PM Reporting Lab: [facility] [address] Performing Lab: [facility] [address] [facility] [address] EXTRA MINT TUBE RECEIVED May 08, 2022 09:32 PM [facility] EXTRA PURPLE TUBE Spec imen Type: BLOOD No comment enter ed. Ordering Provid er: MD ESTEBAN Report Released Date/Time: May 08, 2022 09:32 PM Reporting Lab: [facility] [address] [facility] [address] Performing Lab: [facility] [address] EXTRA PURPLE TUBE RECEIVED May 08, 2022 09:32 [facility] EXTRA GOLD GEL TUBE Speci men Type: SERUM PM No comment enter ed. Ordering Provid er: MD ESTEBAN Report Released Date/Time: May 08, 2022 09:32 PM Reporting Lab: [facility] [address] [facility] [address] Performing Lab: [facility] [address] [facility] [address] EXTRA GOLD GEL TUBE RECEIVED May 08, 2022 09:32 PM [facility] EXTRA BLUE TUBE Specim en Type: PLASMA No comment enter ed. Ordering Provid er: MD ESTEBAN Report Released Date/Time: May 08, 2022 09:32 PM Reporting Lab: [facility] [address] [facility] [address] Performing Lab: [facility] [address] [facility] [address] EXTRA BLUE TUBE RECEIVED May 08, 2022 09:32 PM [facility] EXTRA BRASWELL TUBE Specim en Type: PLASMA No comment enter ed. Ordering Provid er: MD ESTEBAN Report Released Date/Time: May 08, 2022 09:37 PM Reporting Lab: [facility] [address] [facility] [address] Performing Lab: [facility] [address] [facility] [address] EXTRA BRASWELL TUBE RECEIVED May 08, 2022 09:32 PM [facility] LACTIC ACID Specim en Type: PLASMA No comment enter ed. Ordering Provid er: OG DIAL Report Released Date/Time: May 08, 2022 09:49 PM Reporting Lab: [facility] [address] [facility] [address] Performing Lab: [facility] [address] [facility] [address] LACTIC ACID 2.5 H 0.5-2.2 May 08, 2022 09:32 PM [facility] BNP Specim en Type: PLASMA No comment enter ed. Ordering Provid er: OG DIAL Report Released Date/Time: May 08, 2022 09:50 PM Reporting Lab: [facility] [address] [facility] [address] Performing Lab: [facility] [address] [facility] [address] BNP 897 H <99 May 08, 2022 09:32 PM [facility] CBC Specim en Type: BLOOD No comment enter ed. Ordering Provid er: OG DIAL Report Released Date/Time: May 08, 2022 09:50 PM Reporting Lab: [facility] [address] [facility] [address] Performing Lab: [facility] [address] WBC 18.54 H 4.0-11.0 RBC 3.68 L [...] PM Reporting Lab: [facility] [address] Performing Lab: [facility] [address] CREATININE 1.3 H 0.7-1.2 UREA NITROGEN 26 [...] L >60 May 08, 2022 09:32 PM [facility] BLOOD GASES Specim en Type: VENOUS BLOOD Comment: O2 THE RAPY = 3L PM Ordering Provid er: OG DIAL Report Released Date/Time: May 08, 2022 09:50 PM Reporting Lab: [facility] [address] Performing Lab: [facility] [address] PH 7.36 7.33-7.43 PCO2 47 41-51 BICARBONATE 24.4 21.0-30.0 PO2 31 L 35-40 OXYGEN SATURATION 54.7 L 70.0-75.0 PH(TEMP CORRECTED) 7.37 7.33-7.43 PCO2(TEMP CORRECTED) 46 41-51 PO2(TEMP CORRECTED) 31 L 35-40 PATIENT TEMPERATURE 36.7 May 08, 2022 08:27 [facility] FINGERSTICK GLUCOSE Speci men Type: BLOOD PM Comment: Mark casillas Nurse Notified Ordering Provid er: CODIE LEON Report Released Date/Time: May 08, 2022 08:55 PM Reporting Lab: [facility] [address] [facility] [address] Performing Lab: [facility] [address] [facility] [address] FINGERSTICK GLUCOSE 272 H 70-100 May 08, 2022 06:56 [facility] FINGERSTICK GLUCOSE Speci men Type: BLOOD PM Comment: Mark casillas Ordering Provid er: CODIE LEON Report Released Date/Time: May 08, 2022 07:08 PM Reporting Lab: [facility] [address] [facility] [address] Performing Lab: [facility] [address] [facility] [address] FINGERSTICK GLUCOSE 262 H 70-100 May 08, 2022 04:50 [facility] FINGERSTICK GLUCOSE Speci men Type: BLOOD PM Comment: Nurse Notified Ordering Provid er: CODIE LEON Report Released Date/Time: May 08, 2022 05:14 PM Reporting Lab: [facility] [address] [facility] [address] Performing Lab: [facility] [address] [facility] [address] FINGERSTICK GLUCOSE 330 H 70-100 May 08, 2022 11:21 [facility] FINGERSTICK GLUCOSE Speci men Type: BLOOD AM Comment: Mark casillas Nurse Notified Ordering Provid er: CODIE LEON Report Released Date/Time: May 08, 2022 11:51 AM Reporting Lab: [facility] [address] [facility] [address] Performing Lab: [facility] [address] [facility] [address] FINGERSTICK GLUCOSE 231 H 70-100 May 08, 2022 07:25 AM [facility] CBC & DIFF Specim en Type: BLOOD Comment: Automa nola Differential Performed Ordering Provid er: BETO AYALA Report Released Date/Time: May 07, 2022 12:28 PM Reporting Lab: [facility] [address] Performing Lab: [facility] [address] WBC 16.29 H 4.0-11.0 RBC 3.38 L [...] 12:28 PM Reporting Lab: [facility] [address] Performing Lab: [facility] [address] .INR 1.2 H 0.8-1.1 .PT 14.2 H 9.4-12.5 May 08, 2022 [facility] COMPREHENSIVE METABOLIC Spec imen Type: PLASMA 07:25 AM PANEL+MG No comment enter ed. Ordering Provid er: BETO AYALA Report Released Date/Time: May 07, 2022 12:28 PM Reporting Lab: [facility] [address] Performing Lab: [facility] [address] CREATININE 1.1 0.7-1.2 UREA NITROGEN 27 H [...] Lab: [facility] [address] [facility] [address] Performing Lab: [facility] [address] [facility] [address] FINGERSTICK GLUCOSE 276 H 70-100 May 07, 2022 08:36 [facility] FINGERSTICK GLUCOSE Speci men Type: BLOOD PM Comment: Nurse Notified Ordering Provid er: CODIE LEON Report Released Date/Time: May 08, 2022 12:29 AM Reporting Lab: [facility] [address] [facility] [address] Performing Lab: [facility] [address] [facility] [address] FINGERSTICK GLUCOSE 282 H 70-100 May 07, 2022 07:04 PM [facility] LACTIC ACID Specim en Type: PLASMA No comment enter ed. Ordering Provid er: BETO AYLAA Report Released Date/Time: May 07, 2022 06:28 PM Reporting Lab: [facility] [address] [facility] [address] Performing Lab: [facility] [address] [facility] [address] LACTIC ACID 2.0 0.5-2.2 May 07, 2022 04:46 [facility] FINGERSTICK GLUCOSE Speci men Type: BLOOD PM Comment: Nurse Notified Ordering Provid er: BETO AYALA Report Released Date/Time: May 07, 2022 05:00 PM Reporting Lab: [facility] [address] [facility] [address] Performing Lab: [facility] [address] [facility] [address] FINGERSTICK GLUCOSE 274 H 70-100 May 07, 2022 12:47 [facility] FINGERSTICK GLUCOSE Speci men Type: BLOOD PM Comment: Mark casillas Nurse Notified Ordering Provid er: BETO AYALA Report Released Date/Time: May 07, 2022 05:32 PM Reporting Lab: [facility] [address] [facility] [address] Performing Lab: [facility] [address] [facility] [address] FINGERSTICK GLUCOSE 309 H 70-100 May 07, 2022 06:35 [facility] FINGERSTICK GLUCOSE Speci men Type: BLOOD AM Comment: Mark casillas Nurse Notified Ordering Provid er: GAYLA DOMINGUEZ Report Released Date/Time: May 07, 2022 06:46 AM Reporting Lab: [facility] [address] [facility] [address] Performing Lab: [facility] [address] [facility] [address] FINGERSTICK GLUCOSE 352 H 70-100 May 07, 2022 06:15 AM [facility] ALBUMIN Specim en Type: PLASMA No comment enter ed. Ordering Provid er: GAYLA DOMINGUEZ Report Released Date/Time: May 06, 2022 06:33 PM Reporting Lab: [facility] [address] [facility] [address] Performing Lab: [facility] [address] [facility] [address] ALBUMIN 3.0 L 3.5-5.2 May 07, 2022 [facility] COMPREHENSIVE METABOLIC Spec imen Type: PLASMA 06:15 AM PANEL+MG No comment enter ed. Ordering Provid er: GAYLA DOMINGUEZ Report Released Date/Time: May 06, 2022 09:11 PM Reporting Lab: [facility] [address] [facility] [address] Performing Lab: [facility] [address] [facility] [address] CREATININE 1.2 0.7-1.2 UREA NITROGEN 25 8-26 [...] May 06, 2022 09:11 PM Reporting Lab: [facility] [address] [facility] [address] Performing Lab: [facility] [address] WBC 20.25 H 4.0-11.0 RBC 3.54 L [...] Lab: [facility] [address] [facility] [address] Performing Lab: [facility] [facility] [address] LACTIC ACID 2.7 H 0.5-2.2 May 06, 2022 10:45 [facility] FINGERSTICK GLUCOSE Speci men Type: BLOOD PM Comment: Mark casillas Nurse Notified Ordering Provid er: GAYLA DOMINGUEZ Report Released Date/Time: May 07, 2022 12:08 AM Reporting Lab: [facility] [address] [facility] [address] Performing Lab: [facility] [address] [facility] [address] FINGERSTICK GLUCOSE 320 H 70-100 May 06, 2022 06:53 [facility] MRSA SURVL NARES Specimen Type: NARES PM DNA No comment enter ed. Ordering Provid er: GAYLA DOMINGUEZ Report Released Date/Time: May 06, 2022 06:33 PM Reporting Lab: [facility] [address] [facility] [address] Performing Lab: [facility] [address] [facility] [address] MRSA SURVL NARES DNA POSITIVE HH Negative May 06, 2022 06:51 PM [facility] LACTIC ACID Specim en Type: PLASMA No comment enter ed. Ordering Provid er: GAYLA DOMINGUEZ Report Released Date/Time: May 06, 2022 06:04 PM Reporting Lab: [facility] [address] [facility] [address] Performing Lab: [facility] [address] [facility] [address] LACTIC ACID 3.1 H 0.5-2.2 May 06, 2022 06:51 [facility] CARDIAC TROPONIN I Specim en Type: PLASMA PM No comment enter ed. Ordering Provid er: GAYLA DOMINGUEZ Report Released Date/Time: May 06, 2022 06:05 PM Reporting Lab: [facility] [address] [facility] [address] Performing Lab: [facility] [address] [facility] [address] CARDIAC TROPONIN I <0.028 <0.028 May 06, 2022 06:51 [facility] C-REACTIVE PROTEIN Specim en Type: PLASMA PM No comment enter ed. Ordering Provid er: GAYLA DOMINGUEZ Report Released Date/Time: May 06, 2022 09:29 PM Reporting Lab: [facility] [address] [facility] [address] Performing Lab: [facility] [address] [facility] [address] C-REACTIVE PROTEIN 392.40 H <5.00 May 06, 2022 06:51 [facility] EXTRA GOLD GEL TUBE Speci men Type: SERUM PM No comment enter ed. Ordering Provid er: GAYLA DOMINGUEZ Report Released Date/Time: May 06, 2022 06:52 PM Reporting Lab: [facility] [address] Performing Lab: [facility] [address] EXTRA GOLD GEL TUBE RECEIVED May 06, 2022 10:51 AM [facility] URINALYSIS Specim en Type: URINE No comment enter ed. Ordering Provid er: MODESTA VILLANUEVA Report Released Date/Time: May 06, 2022 10:11 AM Reporting Lab: [facility] [address] Performing Lab: [facility] [address] URINE COLOR YELLOW SPECIFIC GRAVITY 1.020 1.003-1.035 [...] 10:11 AM Reporting Lab: [facility] [address] Performing Lab: [facility] [address] COVID-19 (CEPHEID) Not Detected Not Dete cted May 06, 2022 10:20 AM [facility] POC ABG/LACTATE Specim en Type: VENOUS BLOOD No comment enter ed. Ordering Provid er: MODESTA VILLANUEVA Report Released Date/Time: May 06, 2022 10:22 AM Reporting Lab: [facility] [address] Performing Lab: [facility] [address] POC PH 7.410 7.31-7.41 POC PCO2 28.9 [...] 10:11 AM Reporting Lab: [facility] [address] [facility] [address] Performing Lab: [facility] [address] PHOSPHORUS 2.5 2.3-4.7 May 06, 2022 10:00 [facility] PROTHROMBIN TIME/INR Spec imen Type: PLASMA AM No comment enter ed. Ordering Provid er: MODESTA VILLANUEVA Report Released Date/Time: May 06, 2022 10:11 AM Reporting Lab: [facility] [address] Performing Lab: [facility] [address] .INR 2.5 H 0.8-1.1 .PT 29.2 H 9.4-12.5 May 06, 2022 [facility] COMPREHENSIVE METABOLIC Spec imen Type: PLASMA 10:00 AM PANEL+MG Comment: Manual Differential Performed Ordering Provid er: MODESTA VILLANUEVA Report Released Date/Time: May 06, 2022 10:11 AM Reporting Lab: [facility] [address] Performing Lab: [facility] [address] CREATININE 1.3 H 0.7-1.2 UREA NITROGEN 25 [...] 54 L >60 May 06, 2022 10:00 [facility] ACT PART THROMBO TIME Spe cimen Type: PLASMA AM No comment enter ed. Ordering Provid er: MODESTA VILLANUEVA Report Released Date/Time: May 06, 2022 10:11 AM Reporting Lab: [facility] [address] [facility] [address] Performing Lab: [facility] [address] [facility] [address] APTT 37.8 H 25.1-36.5 May 06, 2022 10:00 AM [facility] CBC & DIFF Specim en Type: BLOOD Comment: Manual Differential Performed Ordering Provid er: MODESTA VILLANUEVA Report Released Date/Time: May 06, 2022 10:11 AM Reporting Lab: [facility] [address] [facility] [address] Performing Lab: [facility] [address] [facility] [address] WBC 18.82 H 4.0-11.0 RBC 3.70 L [...] MORPHOLOGY PRESENT May 06, 2022 10:00 AM [facility] PROCALCITONIN Specim en Type: PLASMA No comment enter ed. Ordering Provid er: MODESTA VILLANUEVA Report Released Date/Time: May 06, 2022 10:11 AM Reporting Lab: [facility] [address] [facility] [address] Performing Lab: [facility] [address] [facility] [address] PROCALCITONIN 22.29 H <0.09 May 06, 2022 10:00 [facility] CARDIAC TROPONIN I Specim en Type: PLASMA AM Comment: Critic al Value Reported To: BROOKS COTE 05-06-2022 @1053 BY MBB. Critical value report confirmed. Ordering Provid er: MODESTA VILLANUEVA Report Released Date/Time: May 06, 2022 10:11 AM Reporting Lab: [facility] [address] [facility] [address] Performing Lab: [facility] [address] [facility] [address] CARDIAC TROPONIN I 0.035 HH <0.028 May 06, 2022 10:00 AM [facility] LIPASE Specim en Type: PLASMA No comment enter ed. Ordering Provid er: MODESTA VILLANUEVA Report Released Date/Time: May 06, 2022 10:11 AM Reporting Lab: [facility] [address] [facility] [address] Performing Lab: [facility] [address] [facility] [address] LIPASE <4 <60 May 06, 2022 10:00 [facility] EXTRA GOLD GEL TUBE Speci men Type: SERUM AM No comment enter ed. Ordering Provid er: LINNEA RAND Report Released Date/Time: May 06, 2022 10:25 AM Reporting Lab: [facility] [address] [facility] [address] Performing Lab: [facility] [address] [facility] [address] EXTRA GOLD GEL TUBE RECEIVED May 06, 2022 09:46 [facility] FINGERSTICK GLUCOSE Speci men Type: BLOOD AM Comment: Mark casillas Nurse Notified Ordering Provid er: MODESTA VILLANUEVA Report Released Date/Time: May 06, 2022 09:59 AM Reporting Lab: [facility] [address] [facility] [address] Performing Lab: [facility] [address] [facility] [address] FINGERSTICK GLUCOSE 369 H 70-100 Apr 30, 2022 [facility] BASIC METABOLIC Specimen Typ e: PLASMA 09:17 AM PANEL+MG No comment enter ed. Ordering Provid er: BILL ROONEY Report Released Date/Time: Apr 30, 2022 08:21 AM Reporting Lab: [facility] [address] [facility] [address] Performing Lab: [facility] [address] [facility] [address] CREATININE 1.2 0.7-1.2 UREA NITROGEN 26 8-26 GLUCOSE 140 H 70-100 SODIUM 138 136-145 POTASSIUM 3.8 3.5-5.1 CHLORIDE 107 98-107 CO2 20 L 22-29 CALCIUM 9.4 8.4-10.2 MAGNESIUM 1.7 1.6-2.6 ANION GAP 11 5-15 CREAT EGFR(CKD-EPI) 59 L >60 Apr 30, 2022 09:17 AM [facility] CBC Specim en Type: BLOOD No comment enter ed. Ordering Provid er: TORIBIOBILL L Report Released Date/Time: Apr 30, 2022 08:21 AM Reporting Lab: [facility] [address] Performing Lab: [facility] [address] WBC 10.40 4.0-11.0 RBC 3.96 L 4.6-6.2 [...] Source Pressure Rate Mass Index May 07 [facility] 2021 12:14 [facility] PM [facility] May 07 [facility] 2021 04:56 [facility] AM [facility] May 07 [place] 2021 03:23 [facility] May 07 266.76 35 [facility] 12:15 lb [facility] Social History: Smoking Status (Most current) and Tobacco Use (All prior to encounter date) This section includes the most current, and the historical, smoking and tobacco-related health factors from the [facility] where the Encounter took place.Current Smoking Status This section includes the most current smoking, or tobacco-related health factor, from the [place] facility where the Encounter took place. Date/Time Current Smoking Status Comment Facility Feb 02, 2022 09:30 AM [place]-TO[place]CO [facility] Tobacco Use History This section includes a history of the smoking, or tobacco- related health factors, that were collected on or before the date of the Encounter. The data comes from the [place] facility where the Encounter took place. Date/Time Smoking Status/Tobacco Use Comment [facility] Mar 22, 2021 07:45 AM [place]-TOBACCO NEVER USED [place] [facility] Oct 02, 2019 10:02 AM VA-TOBACCO NEVER USED [place] [facility] May 21, 2018 09:05 AM [place]-TOBACCO NEVER USED [place] [facility] [...] 18, 2018 ADVANCE DIRECTIVE DISCUSSION [facility] December 23, 2017 CLINICAL WARNING FARHAT SCHMID [facility] May 11, 2003 ADVANCE DIRECTIVE BERT CASILLAS [...] 2022 09:46 CHEST 1 VIEW: SONJA OVALLES [facility] AM NUNULUISANA H [id number] -1935 M Exm Date: MAY 11, 2022@09:46 Req Phys: CODIE LEON Loc: OP Unknown /05-13-2022@05:05 Img Loc: MAIN X-RAY Service: [facility] OFFICE (Case [id number] COMPLETE) CHEST 1 VIEW (RAD Detailed) CPT:23378 Proc Modifiers : PORTABLE EXAM Reason for Study: resp distress Clinical History: [place] IS NOT under investigation for COVID-19 or is COVID-19 negative Respiratory distress Responsible provider name and phone number to notify for critical findings if other than u ser placing the order and pager listed below: User placing orde rs pager: [phone] cell LAST CREATININE 1.6 H (05/11/22) Report Status: Verified Date Reported: MAY 11, 2022 Date Verified: MAY 11, 2022 Yeast Maker E-Sig:/ES/SONJA OVALLES MD Report: CHEST 1 VIEW [...] Primary Interpreting Staff: SONJA OVALLES MD, RADIOLOGIST (Yeast Maker) /CDC May 10, 2022 03:49 CT HEAD (P): RADIOLOGY,OUTSIDE [facility] PM LUISANA EDDY [id number] -1935 M SERVICE Exm Date: MAY 10, 2022@15:49 Req Phys: CODIE LEON Loc: OP Unknown /05-13-2022@05:05 Img Loc: CT IMAGING Service: [facility] OFFICE (Case [id number] COMPLETE) CT HEAD/BRAIN W/O CONTRAST (CT Detailed) CPT:44873 Reason for Study: CHANGE IN MENTAL STATUS Clinical History: CHANGE IN MENTAL STATUS. ORDER ADMINISTRATIVELY ENTERED FOLLOWING SYSTEM OUTAGE. Report Status: Verified Date Reported: MAY 10, 2022 Date Verified: MAY 10, 2022 Yeast Maker E-Sig: Report: CT HEAD/BRAIN W/O CONTRAST [PRINTSET] [...] study. READING PHYSICIAN: Akash Mccoy M.D. -[phone] 05/10/2022 17:35 PDT [facility] National Teleradiology Program [phone] (For Medical Practitioner Use Only ) Attention Patients / Veterans: If you have ques tions or concerns about these test results, please contact [facility] provider or primary care team. Primary Interpreting Staff: RADIOLOGY,OUTSIDE SERVICE, Staff Physician / May 08, 2022 07:45 CT T-SPINE (P): RADIOLOGY,OUTSIDE [facility] PM LUISANA EDDY [id number] 1935 M SERVICE Exm Date: MAY 08, 2022@19:45 Req Phys: CODIE LEON E Chantal Loc: OP Unknown /05-13-2022@05:05 Img Loc: CT IMAGING Service: PRIMARY CARE - MED OFFICE (Case [id number] COMPLETE) CT SPINE THORACIC W/O CONTR AST (CT Detailed) CPT:84183 Reason for Study: mrsa bacteremia, spinal surge ry - r/o abscess or discitis Clinical History: IS NOT under investigation for COVID-19 or is COVID-19 negative Defer to radiologist for final CT protocol. Responsible provider name and phone number to n otify for critical findings if other than user placing the order a nd pager listed below: User placing orders pager: [phone] LAST 3: Collection DT Specimen Test Name [...] GFR (eGF 44 L Ref: >=60 Allergies: ([place] only) SIMVASTATIN (Feb 29, 2004) CEPHALEXIN (Mar 01, 2004) Report Status: Verified Date Reported: MAY 08, 2022 Date Verified: MAY 08, 2022 Yeast Maker E-Sig: Report: CT SPINE THORACIC W/O CONTRAST [...] thoracic level. READING PHYSICIAN: Luisana Webb MD -[phone] 05/08/2022 19:20 PDT [facility] National Teleradiology Program [phone] (For Medical Practitioner Use Only ) Attention Patients / Veterans: If you have ques tions or concerns about these test results, please contact your [facility] provider or primary care team. Primary Interpreting Staff: RADIOLOGY,OUTSIDE SERVICE, Staff Physician / May 08, 2022 04:48 CHEST 1 VIEW: RADIOLOGY,OUTSIDE [facility] PM LUISANA EDDY [id number] -1935 M SERVICE Exm Date: MAY 08, 2022@16:48 Req Phys: CODIE LEON Loc: OP Unknown /05-13-2022@05:05 Img Loc: MAIN X-RAY Service: PRIMARY CARE - MED OFFICE (Case [id number] COMPLETE) CHEST 1 VIEW (RAD Detailed) CPT:40341 Proc Modifiers : PORTABLE EXAM Reason for Study: dyspnea Clinical History: IS NOT under investigation for COVID-19 or is COVID-19 negative acute worsening of dyspnea Responsible provider name and phone number to notify for critical findings if other than user placing the order and pager listed below: User placing orders pager: [phone] malini cell [phone] LAST CREATININE 1.1 (05/08/22) Report Status: Verified Date Reported: MAY 08, 2022 Date Verified: MAY 08, 2022 Yeast Maker E-Sig: Report: CHEST 1 VIEW HISTORY: dyspnea COMPARISON: 05/06/2022 TECHNIQUE: Frontal view(s) of the chest, submit nola to the [place] National Teleradiology Program (NTP) for interp retation. FINDINGS: Reduced lung volumes. Progressive cardiomegaly, and vascular congestion as well as diffuse interstitial prom inence with probable small effusions. Impression: Expiratory exam with findings of CHF and mild e santa READING PHYSICIAN: Nghia Menjivar M.D. -[phone] 05/08/2022 18:57 EDT [facility] National Teleradiology Program [phone] (For Medical Practitioner Use Only ) Attention Patients / Veterans: If you have ques tions or concerns about these test results, please contact your o rdering provider or primary care team. Primary Interpreting Staff: RADIOLOGY,OUTSIDE SERVICE, Staff Physician / May 07, 2022 10:29 CT HEAD (P): SHANI POLANCO [facility] AM LUISANA EDDY [id number] -1935 M Exm Date: MAY 07, 2022@10:29 Req Phys: BETO AYALA Loc: OP Unknown/0 05-13-2022@05:05 Img Loc: CT IMAGING Service: PRIMARY CARE - MED OFFICE (Case [id number] COMPLETE) CT HEAD/BRAIN W/O CONTRAST ( CT Detailed) CPT:06537 Reason for Study: seizure noted at [facility] Clinical History: IS NOT under investigation for COVID-19 or is COVID-19 negative Defer to radiologist for final CT protocol. Responsible provider name and phone number to n otify for critical findings if other than user placing the order a nd pager listed below: User placing orders pager: [phone] LAST 3: Collection DT Specimen Test Name [...] GFR (eGF 44 L Ref: >=60 Allergies: ([place] only) SIMVASTATIN (Feb 29, 2004) CEPHALEXIN (Mar 01, 2004) Report Status: Verified Date Reported: MAY 07, 2022 Date Verified: MAY 07, 2022 Yeast Maker E-Sig:/ES/SHANI POLANCO MD Report: EXAM: CT HEAD/BRAIN W/O CONTRAST HISTORY: seizure noted at [facility] Reason for Study: seizure noted at [facility] [place] IS NOT under investigation for COVID-19 or is COVID-19 negative Defer to radiologist for final CT prot ocol. Responsible provider name and phone number to notify for cr itical findings if other than user placing the order and pager lis nola below: User placing orders pager: [phone] LAST 3: Collecti on DT Specimen Test [...] Primary Interpreting Staff: SHANI POLANCO MD, RADIOLOGIST (Yeast Maker) /Javed May 06, 2022 11:40 CHEST 1 VIEW: RADIOLOGY,OUTSIDE [facility] AM LUISANA EDDY [id number] -1935 M SERVICE Exm Date: MAY 06, 2022@11:40 Req Phys: MODESTA VILLANUEVA Loc: [facility] EMERGENCY DEPT WALK-IN (Re Img Loc: MAIN X-RAY Service: Unknown (Case [id number] COMPLETE) CHEST 1 VIEW (RAD Detailed) C PT:78282 Proc Modifiers : PORTABLE EXAM Reason for [...] pager listed below: User placing orders pager: [phone] LAST CREATININE 1.2 (04/30/22) Report Status: Verified Date Reported: MAY 06, 2022 Date Verified: MAY 06, 2022 Yeast Maker E-Sig: Report: Technique: Frontal chest. No comparison Impression: Cardiac silhouette is mildly enlarged. There is mild pulmonary venous congestion. No definite pleural effusion . No pneumothorax seen. READING PHYSICIAN: Vern Donnelly M.D. -[id number] 07 05/06/2022 13:26 EDT [facility] National Teleradiology Program [phone] (For Medical Practitioner Use Only ) Attention Patients / Veterans: If you have ques tions or concerns about these test results, please contact your o rdering provider or primary care team. Primary Interpreting Staff: RADIOLOGY,OUTSIDE SERVICE, Staff Physician / May 06, 2022 10:36 CT (AP) ABDOMEN/PELVIS (P): RADIOLOGY,OUTSIDE [facility] LUISANA EDDY [id number] -1935 M SERVICE Exm Date: MAY 06, 2022@10:36 Req Phys: MODESTA VILLANUEVA Loc: [facility] EMERGENCY DEPT WALK-IN (Re Img Loc: CT IMAGING Service: Unknown (Case [id number] COMPLETE) CT (AP) ABDOMEN/PELVIS W CONT RAST(CT Detailed) CPT:46641 Reason for Study: fever, back pain Clinical History: fever, back pain, ecchymosis left low back consideration for intra-abdominal process, aort ic changes, LS spine trauma, kidney inflammation, GI or obs truction [place] IS under investigation (PUI) for COVID- 19 or is COVID-19+ Defer to radiologist for final CT protocol. Please enter pertinent clinical history on the next page. Responsible provider name and phone number to n otify for critical findings if other than user placing the order a nd pager listed below: User placing orders pager: [phone] LAST 3: Collection DT Specimen Test Name [...] ESTIMATED GFR(eGF 44 L Ref: >=60 Allergies: ([place] only) SIMVASTATIN (Feb 29, 2004) CEPHALEXIN (Mar 01, 2004) To see allergies from all [facility] locations click Re ports tab>Remote Data>All Available Sites>Clinical Reports>Aller gies. Report Status: Verified Date Reported: MAY 06, 2022 Date Verified: MAY 06, 2022 Yeast Maker E-Sig: Report: Exam: CT (AP) ABDOMEN/PELVIS W [...] findings, above. READING PHYSICIAN: Eduin Donaldson M.D. -[phone] 05/06/2022 12:48 [facility] Teleradiology Program [phone] (For Medical Practitioner Use Only ) Attention Patients / Veterans: If you have ques tions or concerns about these test results, please contact your [facility] provider or primary care team. Primary Interpreting Staff: RADIOLOGY,OUTSIDE SERVICE, Staff Physician / May 06, 2022 10:35 CT CERVICAL SPINE W/O CONTRAST: RADIOLOGY,OUT SIDE [facility] AM LUISANA EDDY [id number] -1935 M SERVICE Exm Date: MAY 06, 2022@10:35 Req Phys: MODESTA VILLANUEVA Loc: [facility] EMERGENCY DEPT WALK-IN (Re Img Loc: CT IMAGING Service: Unknown (Case 65 COMPLETE) CT CERVICAL SPINE W/O CONTRAS T (CT Detailed) CPT:91180 Reason for Study: falls, blood thinner, AMS, se izure Clinical History: falls, blood thinner, AMS, seizure [place] IS under investigation (PUI) for COVID- 19 or is COVID-19+ Defer to radiologist for final CT protocol. Responsible provider name and phone number to n otify for critical findings if other than user placing the order a nd pager listed below: User placing orders pager: [phone] LAST 3: Collection DT Specimen Test Name [...] ESTIMATED GFR(eGF 44 L Ref: >=60 Allergies: ([place] only) SIMVASTATIN (Feb 29, 2004) CEPHALEXIN (Mar 01, 2004) To see allergies from all [facility] locations click Re ports tab>Remote Data>All Available Sites>Clinical Reports>Aller gies. Report Status: Verified Date Reported: MAY 06, 2022 Date Verified: MAY 06, 2022 Yeast Maker E-Sig: Report: CT CERVICAL SPINE W/O CONTRAST [...] tissues: 11 mm subcutaneous cyst in the [facility] upper neck. Impression: -Motion artifact limits the exam. -Given this limitation, no acute osseous abnorm ality. -Moderate multilevel degenerative change throug hout the cervical spine. -Ancillary findings, above. READING PHYSICIAN: Eduin Donaldson M.D. -[phone] 05/06/2022 12:33 [facility] National Teleradiology Program [phone] (For Medical Practitioner Use Only ) Attention Patients / Veterans: If you have ques tions or concerns about these test results, please contact your [facility] provider or primary care team. Primary Interpreting Staff: RADIOLOGY,OUTSIDE SERVICE, Staff Physician / May 06, 2022 10:35 CT HEAD/BRAIN W/O CONTRAST: RADIOLOGY,OUTSIDE [facility] AM LUISANA EDDY [id number] -1935 M SERVICE Exm Date: MAY 06, 2022@10:35 Req Phys: MODESTA VILLANUEVA Loc: [facility] EMERGENCY DEPT WALK-IN (Re Im Loc: CT IMAGING Service: Unknown (Case 64 COMPLETE) CT HEAD/BRAIN W/O CONTRAST (C T Detailed) CPT:78938 Reason for Study: falls, blood thinner, AMS, se izure Clinical History: falls, blood thinner, AMS, seizure IS under investigation (PUI) for COVID- 19 or is COVID-19+ Defer to radiologist for final CT protocol. Responsible provider name and phone number to n otify for critical findings if other than user placing the order a nd pager listed below: User placing orders pager: [phone] LAST 3: Collection DT Specimen Test Name [...] ESTIMATED GFR(eGF 44 L Ref: >=60 Allergies: ([place] only) SIMVASTATIN (Feb 29, 2004) CEPHALEXIN (Mar 01, 2004) To see allergies from all [place] locations click Re ports tab>Remote Data>All Available Sites>Clinical Reports>Aller gies. Report Status: Verified Date Reported: MAY 06, 2022 Date Verified: MAY 06, 2022 Yeast Maker E-Sig: Report: CT HEAD/BRAIN W/O CONTRAST Clinical [...] T findings. READING PHYSICIAN: Eduin Donaldson M.D. -[phone] 05/06/2022 12:30 [facility] National Teleradiology Program [phone] (For Medical Practitioner Use Only ) Attention [...] 09, 2022 05:30 AM LR MICROBIOLOGY REPORT: [facility] [place] [facility] Reporting Lab: [facility] [CLIA# [id number]] [place] [address] Accession [UID]: [id number] [[id number]] Receiv ed: May 09, 2022@01:35 Collection sample: BLOOD Collection date: Apr 05:30 Provider: CODIE LEON Comment on specimen: LEFT ARM, RECEIVED 2 BLOOD CULTURE BOTTLES Test(s) ordered: CULTURE & SUSCEPTIBILITY...... 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 R TRIMETH/SULFA................. S TETRACYCLINE.................. S CLINDAMYCIN................... S RIFAMPIN...................... S VANCOMYCIN.................... S Bacteriology Remark(s): VANCOMYCIN SHAMIKA: <=0.5 ug/mL THIS REPORT IS FINAL =--=--=--=--=--=--=--=--=--=--=--=--=--= --=--=--=--=--=--=--=--=--=--=--=--=-- Performing Laboratory: Bacteriology Report Performed By: [facility] [CLIA# [id number]] [place] [address] May 08, 2022 03:23 PM LR MICROBIOLOGY REPORT: [facility] Reporting Lab: [facility] [CLIA# [id number]] [place] [address] Accession [UID]: [id number] [[id number]] Receiv ed: May 08, 2022@15:41 Collection sample: BLOOD Collection date: Apr 15:23 Provider: CODIE LEON Comment on specimen: LEFT ARM, RECEIVED 2 BLOOD CULTURE BOTTLES Test(s) ordered: CULTURE & SUSCEPTIBILITY...... completed: May 10, 2022 * BACTERIOLOGY FINAL REPORT => May 10, 2022 16:3 1 TECH CODE: [id number] CULTURE RESULTS: GROWTH SAME THAT OF ANOTHER CULTURE Comment: FOR SUSCEPTIBILITY REPORT SEE PREVIOUS POSITIVE SAME MB 22 [id number] ( 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 from Anaerobic bottle ) ( Recovered from Aerobic bottle ) Bacteriology Remark(s): THIS REPORT IS FINAL =--=--=--=--=--=--=--=--=--=--=--=--=--= --=--=--=--=--=--=--=--=--=--=--=--=-- Performing Laboratory: Bacteriology Report Performed By: [facility] [CLIA# [id number]] [place] [address] May 08, 2022 03:21 PM LR MICROBIOLOGY REPORT: [facility] Reporting Lab: [facility] [CLIA# [id number]] [place] [address] Accession [UID]: [id number] [[id number]] Receiv ed: May 08, 2022@15:40 Collection sample: BLOOD Collection date: Apr 15:21 Provider: CODIE LEON Comment on specimen: RT ARM, RECEIVED 2 BLOOD CU LTURE BOTTLES Test(s) ordered: CULTURE & SUSCEPTIBILITY...... completed: May 10, 2022 * BACTERIOLOGY FINAL REPORT => May 10, 2022 16:3 1 TECH CODE: [id number] CULTURE RESULTS: GROWTH SAME THAT OF ANOTHER CULTURE Comment: FOR SUSCEPTIBILITY REPORT SEE PREVIOUS POSITIVE SAME MB 22 [id number] ( 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 from Anaerobic bottle ) ( Recovered from Aerobic bottle ) Bacteriology Remark(s): THIS REPORT IS FINAL =--=--=--=--=--=--=--=--=--=--=--=--=--= --=--=--=--=--=--=--=--=--=--=--=--=-- Performing Laboratory: Bacteriology Report Performed By: [facility] [CLIA# [id number]] [place] [address] May 07, 2022 05:30 AM LR MICROBIOLOGY REPORT: [facility] Reporting Lab: [facility] [CLIA# [id number]] [place] [address] Accession [UID]: [id number] [[id number]] Receiv ed: May 07, 2022@01:35 Collection sample: [...] REPORT SEE PREVIOUS POSITIVE SAME MB 22 17590 ( 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 from Aerobic bottle ) ( Recovered from Anaerobic bottle ) Bacteriology Remark(s): THIS REPORT IS FINAL =--=--=--=--=--=--=--=--=--=--=--=--=--= --=--=--=--=--=--=--=--=--=--=--=--=-- Performing Laboratory: Bacteriology Report Performed By: [facility] [CLIA# [id number]] [place] [address] May 06, 2022 10:51 AM LR MICROBIOLOGY REPORT: [facility] Reporting Lab: [facility] [CLIA# [id number]] [place] [address] Accession [UID]: [id number] [[id number]] Receiv ed: May 06, 2022@11:32 Collection sample: URINE Collection date: Apr 10:51 Provider: MODESTA VILLANUEVA Comment on specimen: RECEIVED IN STERILE CUP Test(s) ordered: CULTURE & SUSCEPTIBILITY...... completed: May 07, 2022 * BACTERIOLOGY FINAL REPORT => May 07, 2022 20:4 8 TECH CODE: [id number] CULTURE RESULTS: STAPHYLOCOC CUS AUREUS METHICILLIN RESISTANT (MRSA) - Quantity: >100,000 ANTIBIOTIC SUSCEPTIBILITY TEST RESULTS: STAPHYLOCOCCUS AUREUS METHICILLIN RESISTANT (M RSA) : OXACILLIN..................... R TRIMETH/SULFA................. S TETRACYCLINE.................. S RIFAMPIN...................... S VANCOMYCIN.................... S Bacteriology Remark(s): THIS REPORT IS FINAL =--=--=--=--=--=--=--=--=--=--=--=--=--= --=--=--=--=--=--=--=--=--=--=--=--=-- Performing Laboratory: Bacteriology Report Performed By: [facility] [CLIA# [id number]] [place] [address] May 06, 2022 10:34 AM LR MICROBIOLOGY REPORT: [facility] Reporting Lab: [facility] [CLIA# [id number]] [place] [address] Accession [UID]: [id number] [[id number]] Receiv ed: May 06, 2022@10:51 Collection sample: BLOOD Collection date: Apr 10:34 Provider: MODESTA VILLANUEVA Comment on specimen: RECEIVED 2 BLOOD CULTURE [facility] Test(s) ordered: CULTURE & SUSCEPTIBILITY...... completed: May 07, 2022 * BACTERIOLOGY FINAL REPORT => May 08, 2022 08:3 0 TECH CODE: [id number] CULTURE RESULTS: STAPHYLOCOCCUS AUREUS METHICILL IN RESISTANT [...] Report Performed By: [facility] [CLIA# [id number]] [place] [address] May 06, 2022 10:00 AM LR MICROBIOLOGY REPORT: [facility] Reporting Lab: [facility] [CLIA# [id number]] [place] [address] Accession [UID]: [id number] [[id number]] Receiv ed: May 06, 2022@10:41 Collection sample: [...] SEE PREVIOUS POSITIVE SAME LUIS MIGUEL [id number] ( 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 from Anaerobic bottle ) ( Recovered from Aerobic bottle ) Bacteriology Remark(s): THIS REPORT IS FINAL =--=--=--=--=--=--=--=--=--=--=--=--=--= --=--=--=--=--=--=--=--=--=--=--=--=-- Performing Laboratory: Bacteriology Report Performed By: [facility] [CLIA# [id number]] [place] [address]
--- OUTSIDE RECORDS SUMMARY | 2022-05-15 09:33 | XMS_ITS ---
DAILY HOSPITALIZATION DATA [facility] Encounter Summary Created on:May 08, 2022 Patient:LUISANA EDDY Sex:Male :1935 Author Organization Department [facility] rs Address [address] [place] [address] Support Name Relationship Address Phone WADE LORENZO Unavailable [address] [place] [address] WADE LORENZO Unavailable [address] [place] [address] ARACELI MARSHALL Unavailable [address] [place] [address] MARILIA MARSHALLA Unavailable [address] [place] [address] Insurance Providers: All historical and current Section [...] [place] M[place] Aug 19, [id number] Kristel EDDY [facility] (WNR) ADVANTAGE (WNR) 2016 8 [id number] [phone] [facility] [place] MEDICARE MCR Aug 19, [id number] Kristel EDDY [facility] (WNR) ADVANTAGE (WNR) 2017 03 [id number] [phone] [facility] 1 Selected Encounter This section includes the information on record at [place] for the Encounter. Date/Time Encounter Type Encounter Description Reason Provider Source May 08, 2022 04:57 Inpatient Visit DAILY HOSPITALIZATION DATA [facility] Encounter Template Text not used by [place] Plan of Treatment: Future Appointments (+ 6 months) and Future Tests (+/- 45 days) The Plan of Treatment section includes future care activities for the patient from all [place] [facility] This section includes future appointments and future orders which are active, pending orscheduled.Future Appointments This section includes appointments that were scheduled to occur 6 months from the date of the Encounter, up to a maximum of 20 appointments. The data comes from all [place] treatment facilities. Appointment Date/Time Appointment Type Appointment Facili ty Name May 11, 2022 06:15 PM AMBULATORY - NONE [facility] Jul 23, 2022 08:00 AM AMBULATORY - NEUROLOGY [facility] Active, Pending, and Scheduled Orders This section includes a listing of several types of active, pending, and scheduled orders, including clinic medications orders, diagnostic test orders, procedure orders and consult orders; where the start date of the order is 45 days before the date of the Encounter or 45 days after the date of the Encounter. The data comes from all [place] treatment [facility]. Test Date/Time Test Type Test Details Facility Name Apr 30, 2022 08:21 Laboratory - Chemistry URINALYSIS URINE WC ON CE [facility] AM Order Apr 30, 2022 08:21 Laboratory - CULTURE & SUSCEPTIBILITY [facility] AM Microbiology Order URINE WC May 06, 2022 12:00 Laboratory - Blood ABO/RH - LAB BLOOD [facility] AM Bank Order May 06, 2022 10:11 Laboratory - Blood TYPE & SCREEN - LAB [facility] AM Bank Order BLOOD WC May 06, 2022 10:27 Pharmacy [facility] AM Medication Order May 06, 2022 10:28 [facility] AM Infusion Order May 06, 2022 10:34 [facility] AM Infusion Order May 06, 2022 10:41 [facility] AM Infusion Order May 06, 2022 12:15 [facility] PM Medication Order May 06, 2022 01:31 [facility] PM Medication Order May 06, 2022 04:49 [facility] PM Medication Order May 07, 2022 01:00 Laboratory - CULTURE & SUSCEPTIBILITY [facility] PM Microbiology Order BLOOD WC ONCE May 11, 2022 09:07 [facility] AM Microbiology Order BLOOD WC May 11, 2022 09:07 Laboratory - CULTURE & SUSCEPTIBILITY [facility] AM Microbiology Order BLOOD WC May 11, 2022 09:38 Laboratory - Chemistry EOSINOPHIL SMEAR,URINE [facility] AM Order URINE WC ONCE May 11, 2022 09:38 Laboratory - Chemistry FENA URINE WC ONCE [facility] AM Order May 11, 2022 09:38 Laboratory - Chemistry URINALYSIS URINE WC ON CE [facility] AM Order Lab Results: +/- 30 [...] Comment May 11, 2022 11:13 [facility] FINGERSTICK GLUCOSE Speci men Type: BLOOD AM Comment: Mark casillas Nurse Notified Ordering Provid er: CODIE LEON Report Released Date/Time: May 11, 2022 11:53 AM Reporting Lab: [facility] [address] [address] Performing Lab: [facility] [address] FINGERSTICK GLUCOSE 367 H 70-100 May 11, 2022 07:05 [facility] BASIC METABOLIC Specimen Type: PLASMA AM PANEL+MG No comment enter ed. Ordering Provid er: OG DIAL Report Released Date/Time: May 11, 2022 04:46 AM Reporting Lab: [facility] [address] [facility] [address] Per[facility]: [facility] [address] CREATININE 1.6 H 0.7-1.2 UREA NITROGEN 28 H 8-26 GLUCOSE 396 H 70-100 SODIUM 150 H 136-145 POTASSIUM 3.7 3.5-5.1 CHLORIDE 120 H 98-107 CO2 23 22-29 CALCIUM 8.4 8.4-10.2 MAGNESIUM 2.1 1.6-2.6 ANION GAP 7 5-15 CREAT EGFR(CKD-EPI) 42 L >60 May 11, 2022 07:05 [facility] LIVER FUNCTION TESTS Spec imen Type: PLASMA AM No comment enter ed. Ordering Provid er: CODIE LEON Report Released Date/Time: May 11, 2022 09:08 AM Reporting Lab: [facility] [address] [address] Performing Lab: [facility] [address] [facility] [address] BILIRUBIN, TOTAL 1.6 H 0.2-1.2 ALKALINE PHOSPHATASE 102 40-150 ALT/SGPT 42 <55 AST/SGOT 30 <34 GAMMA GTP 52 <64 DIR. BILIRUBIN 1.2 H <0.5 May 11, 2022 07:05 AM [facility] CK,TOTAL Specim en Type: PLASMA No comment enter ed. Ordering Provid er: CODIE LEON Report Released Date/Time: May 11, 2022 09:08 AM Reporting Lab: [facility] [address] [facility] [address] Performing Lab: [facility] [address] [facility] [address] CK,TOTAL 16 L 39-208 May 11, 2022 07:05 AM [facility] BNP Specim en Type: PLASMA No comment enter ed. Ordering Provid er: CODIE LEON Report Released Date/Time: May 11, 2022 09:15 AM Reporting Lab: [facility] [address] [facility] [address] Performing Lab: [facility] [address] [facility] [address] BNP 59 <99 May 11, 2022 07:05 AM [facility] CBC Specim en Type: BLOOD No comment enter ed. Ordering Provid er: OG DIAL Report Released Date/Time: May 11, 2022 04:46 AM Reporting Lab: [facility] [address] [facility] [address] Performing Lab: [facility] [address] [facility] [address] WBC 15.93 H 4.0-11.0 RBC 3.60 L 4.6-6.2 HGB 11.2 L 13.5-17.9 HCT 35.3 L 41-54 MCV 98.1 80-100 MCH 31.1 27-33 MCHC 31.7 L 32.0-37.5 PLT 231 150-400 MPV 11.2 H 7.4-10.4 RDW 15.2 H 11.5-14.5 May 11, 2022 06:14 [facility] FINGERSTICK GLUCOSE Speci men Type: BLOOD AM Comment: Mark casillas Nurse Notified Ordering Provid er: CODIE LEON Report Released Date/Time: May 11, 2022 06:42 AM Reporting Lab: [facility] [address] [facility] [address] Performing Lab: [facility] [address] [facility] [address] FINGERSTICK GLUCOSE 345 H 70-100 May 11, 2022 02:24 [facility] FINGERSTICK GLUCOSE Speci men Type: BLOOD AM Comment: Mark casillas Ordering Provid er: CODIE LEON Report Released Date/Time: May 11, 2022 02:44 AM Reporting Lab: [facility] [address] [facility] [address] Performing Lab: [facility] [address] [facility] [address] FINGERSTICK GLUCOSE 375 H 70-100 May 10, 2022 08:38 [facility] FINGERSTICK GLUCOSE Speci men Type: BLOOD PM Comment: Mark casillas Ordering Provid er: CODIE LEON Report Released Date/Time: May 11, 2022 12:31 AM Reporting Lab: [facility] [address] [facility] [address] Performing Lab: [facility] [address] [facility] [address] FINGERSTICK GLUCOSE 346 H 70-100 May 10, 2022 05:05 [facility] FINGERSTICK GLUCOSE Speci men Type: BLOOD PM Comment: Mark casillas Nurse Notified Ordering Provid er: CODIE LEON Report Released Date/Time: May 10, 2022 11:50 PM Reporting Lab: [facility] [address] [facility] [address] Performing Lab: [facility] [address] [facility] [address] FINGERSTICK GLUCOSE 245 H 70-100 May 10, 2022 02:00 [facility] VANCOMYCIN (TROUGH) Speci men Type: PLASMA PM No comment enter ed. Ordering Provid er: CODIE LEON Report Released Date/Time: May 11, 2022 01:34 AM Reporting Lab: [facility] [address] [facility] [address] Performing Lab: [facility] [address] [facility] [address] VANCOMYCIN (TROUGH) 31.8 H 10.0-15.0 May 10, 2022 [facility] BASIC METABOLIC Specimen Typ e: PLASMA 02:00 PM PANEL+MG No comment enter ed. Ordering Provid er: CODIE LEON Report Released Date/Time: May 11, 2022 01:34 AM Reporting Lab: [facility] [address] Performing Lab: [facility] [address] CREATININE 1.1 .7-1.2 UREA NITROGEN 22 8-26 GLUCOSE 279 H 70-100 SODIUM 150 H 136-145 POTASSIUM 3.2 L 3.5-5.1 CHLORIDE 116 H 98-107 CO2 23 22-29 CALCIUM 8.5 8.4-10.2 MAGNESIUM 2.0 1.6-2.6 ANION GAP 11 5-15 CREAT EGFR(CKD-EPI) 65 >60 May 10, 2022 01:20 PM [facility] CBC & DIFF Specim en Type: BLOOD Comment: Automa nola Differential Performed Ordering Provid er: MD ESTEBAN Report Released Date/Time: May 10, 2022 08:52 PM Reporting Lab: [facility] [address] Performing Lab: [facility] [address] WBC 16.24 H 4.0-11.0 RBC 3.76 L [...] 0-0.1 May 10, 2022 11:07 [facility] FINGERSTICK GLUCOSE Speci men Type: BLOOD AM Comment: Mark casillas Nurse Notified Ordering Provid er: CODIE LEON Report Released Date/Time: May 11, 2022 12:31 AM Reporting Lab: [facility] [address] [facility] [address] Performing Lab: [facility] [address] [facility] [address] FINGERSTICK GLUCOSE 253 H 70-100 May 10, 2022 06:16 [facility] FINGERSTICK GLUCOSE Speci men Type: BLOOD AM Comment: Mark casillas Nurse Notified Ordering Provid er: CODIE LEON Report Released Date/Time: May 10, 2022 11:50 PM Reporting Lab: [facility] [address] [facility] [address] Performing Lab: [facility] [address] [facility] [address] FINGERSTICK GLUCOSE 271 H 70-100 May 09, 2022 09:07 [facility] FINGERSTICK GLUCOSE Speci men Type: BLOOD PM Comment: Mark casillas Ordering Provid er: CODIE LEON Report Released Date/Time: May 10, 2022 11:50 PM Reporting Lab: [facility] [address] [facility] [address] Performing Lab: [facility] [address] [facility] [address] FINGERSTICK GLUCOSE 209 H 70-100 May 09, 2022 05:33 [facility] FINGERSTICK GLUCOSE Speci men Type: BLOOD PM Comment: Mark casillas Nurse Notified Ordering Provid er: CODIE LEON Report Released Date/Time: May 09, 2022 05:53 PM Reporting Lab: [facility] [address] [facility] [address] Performing Lab: [facility] [address] [facility] [address] FINGERSTICK GLUCOSE 251 H 70-100 May 09, 2022 02:09 [facility] VANCOMYCIN (PEAK) Specime n Type: SERUM PM No comment enter ed. Ordering Provid er: AMARIS DE JESUS Report Released Date/Time: May 09, 2022 09:33 AM Reporting Lab: [facility] [address] [facility] [address] Performing Lab: [facility] [address] [facility] [address] VANCOMYCIN (PEAK) 24.2 20.0-40.0 May 09, 2022 11:19 [facility] FINGERSTICK GLUCOSE Speci men Type: BLOOD AM Comment: Mark casillas Nurse Notified Ordering Provid er: CODIE LEON Report Released Date/Time: May 09, 2022 11:38 AM Reporting Lab: [facility] [address] Performing Lab: [facility] [address] FINGERSTICK GLUCOSE 240 H 70-100 May 09, 2022 08:13 [facility] VANCOMYCIN (TROUGH) Speci men Type: SERUM AM No comment enter ed. Ordering Provid er: AMARIS DE JESUS Report Released Date/Time: May 08, 2022 11:14 AM Reporting Lab: [facility] [address] Performing Lab: [facility] [address] VANCOMYCIN (TROUGH) 16.1 H 10.0-15.0 May 09, 2022 05:33 AM [facility] CBC & DIFF Specim en Type: BLOOD Comment: Automa nola Differential Performed Ordering Provid er: CODIE LEON Report Released Date/Time: May 08, 2022 05:27 PM Reporting Lab: [facility] [address] Performing Lab: [facility] [address] WBC 14.92 H 4.0-11.0 RBC 3.41 L [...] H 0-0.1 May 09, 2022 [facility] COMPREHENSIVE METABOLIC Spec imen Type: PLASMA 05:32 AM PANEL+MG No comment enter ed. Ordering Provid er: MALINI,CODIE E Report Released Date/Time: May 08, 2022 05:27 PM Reporting Lab: [facility] [address] [address] [facility] [address] Performing Lab: [facility] [address] [address] CREATININE 1.2 0.7-1.2 UREA NITROGEN 25 8-26 [...] >60 May 09, 2022 05:16 [facility] FINGERSTICK GLUCOSE Speci men Type: BLOOD AM Comment: Mark casillas Nurse Notified Ordering Provid er: CODIE LEON Report Released Date/Time: May 09, 2022 07:27 AM Reporting Lab: [facility] [address] [facility] [address] FINGERSTICK GLUCOSE 295 H 70-100 May 08, 2022 09:32 PM [facility] EXTRA MINT TUBE Specim en Type: PLASMA No comment enter ed. Ordering Provid er: MD ESTEBAN Report Released Date/Time: May 08, 2022 09:32 PM Reporting [facility] [address] Performing Lab: [facility] [address] EXTRA MINT TUBE RECEIVED May 08, 2022 09:32 PM [facility] EXTRA PURPLE TUBE Spec imen Type: BLOOD No comment enter ed. Ordering Provid er: MD ESTEBAN Report Released Date/Time: May 08, 2022 09:32 PM Reporting Lab: [facility] [address] [facility] [address] Per[facility]: [facility] [address] EXTRA PURPLE TUBE RECEIVED May 08, 2022 09:32 [facility] EXTRA GOLD GEL TUBE Speci men Type: SERUM PM No comment enter ed. Ordering Provid er: MD ESTEBAN Report Released Date/Time: May 08, 2022 09:32 PM Reporting Lab: [facility] [address] [facility] [address] Performing Lab: [facility] [address] [facility] [address] EXTRA GOLD GEL TUBE RECEIVED May 08, 2022 09:32 PM [facility] EXTRA BLUE TUBE Specim en Type: PLASMA No comment enter ed. Ordering Provid er: MD ESTEBAN Report Released Date/Time: May 08, 2022 09:32 PM Reporting Lab: [facility] [address] [facility] [address] Performing Lab: [facility] [address] [facility] [address] EXTRA BLUE TUBE RECEIVED May 08, 2022 09:32 PM [facility] EXTRA BRASWELL TUBE Specim en Type: PLASMA No comment enter ed. Ordering Provid er: MD ESTEBAN Report Released Date/Time: May 08, 2022 09:37 PM Reporting Lab: [facility] [address] [facility] [address] Performing Lab: [facility] [address] [facility] [address] EXTRA BRASWELL TUBE RECEIVED May 08, 2022 09:32 PM [facility] LACTIC ACID Specim en Type: PLASMA No comment enter ed. Ordering Provid er: OG DIAL Report Released Date/Time: May 08, 2022 09:49 PM Reporting Lab: [facility] [address] [facility] [address] Performing Lab: [facility] [address] [facility] [address] LACTIC ACID 2.5 H 0.5-2.2 May 08, 2022 09:32 PM [facility] BNP Specim en Type: PLASMA No comment enter ed. Ordering Provid er: OG DIAL Report Released Date/Time: May 08, 2022 09:50 PM Reporting Lab: [facility] [address] [facility] [address] Performing Lab: [facility] [address] [facility] [address] BNP 897 H <99 May 08, 2022 09:32 PM [facility] BLOOD GASES Specim en Type: VENOUS BLOOD Comment: O2 THE RAPY = 3L PM Ordering Provid er: OG DIAL Report Released Date/Time: May 08, 2022 09:50 PM Reporting Lab: [facility] [address] [facility] [address] Performing Lab: [facility] [address] PH 7.36 7.33-7.43 PCO2 47 41-51 BICARBONATE 24.4 21.0-30.0 PO2 31 L 35-40 OXYGEN SATURATION 54.7 L 70.0-75.0 PH(TEMP CORRECTED) 7.37 7.33-7.43 PCO2(TEMP CORRECTED) 46 41-51 PO2(TEMP CORRECTED) 31 L 35-40 PATIENT TEMPERATURE 36.7 May 08, 2022 09:32 PM [facility] CBC Specim en Type: BLOOD No comment enter ed. Ordering Provid er: OG DIAL Report Released Date/Time: May 08, 2022 09:50 PM Reporting Lab: [facility] [address] Performing Lab: [facility] [address] WBC 18.54 H 4.0-11.0 RBC 3.68 L 4.6-6.2 HGB 11.5 L 13.5-17.9 HCT 35.1 L 41-54 MCV 95.4 80-100 MCH 31.3 27-33 MCHC 32.8 32.0-37.5 PLT 221 150-400 MPV 11.1 H 7.4-10.4 RDW 14.9 H 11.5-14.5 May 08, 2022 [facility] COMPREHENSIVE METABOLIC Spec imen Type: PLASMA 09:32 PM PANEL+MG No comment enter ed. Ordering Provid er: OG DIAL Report Released Date/Time: May 08, 2022 09:50 PM Reporting Lab: [facility] [address] Performing Lab: [facility] [address] CREATININE 1.3 H 0.7-1.2 UREA NITROGEN 26 [...] >60 May 08, 2022 08:27 [facility] FINGERSTICK GLUCOSE Speci men Type: BLOOD PM Comment: Mark casillas Nurse Notified Ordering Provid er: CODIE LEON Report Released Date/Time: May 08, 2022 08:55 PM Reporting Lab: [facility] [address] [facility] [address] Performing Lab: [facility] [address] [facility] [address] FINGERSTICK GLUCOSE 272 H 70-100 May 08, 2022 06:56 [facility] FINGERSTICK GLUCOSE Speci men Type: BLOOD PM Comment: Mark casillas Ordering Provid er: CODIE LEON Report Released Date/Time: May 08, 2022 07:08 PM Reporting Lab: [facility] [address] [facility] [address] Performing Lab: [facility] [address] [facility] [address] FINGERSTICK GLUCOSE 262 H 70-100 May 08, 2022 04:50 [facility] FINGERSTICK GLUCOSE Speci men Type: BLOOD PM Comment: Nurse Notified Ordering Provid er: CODIE LEON Report Released Date/Time: May 08, 2022 05:14 PM Reporting Lab: [facility] [address] [facility] [address] Performing Lab: [facility] [address] [facility] [address] FINGERSTICK GLUCOSE 330 H 70-100 May 08, 2022 11:21 [facility] FINGERSTICK GLUCOSE Speci men Type: BLOOD AM Comment: Mark casillas Nurse Notified Ordering Provid er: CODIE LEON Report Released Date/Time: May 08, 2022 11:51 AM Reporting Lab: [facility] [address] [facility] [address] Performing Lab: [facility] [address] [facility] [address] FINGERSTICK GLUCOSE 231 H 70-100 May 08, 2022 07:25 AM [facility] CBC & DIFF Specim en Type: BLOOD Comment: Automa nola Differential Performed Ordering Provid er: BETO AYALA Report Released Date/Time: May 07, 2022 12:28 PM Reporting Lab: [facility] [address] Performing Lab: [facility] [address] WBC 16.29 H 4.0-11.0 RBC 3.38 L [...] H 0-0.1 May 08, 2022 [facility] PROTHROMBIN TIME/INR Specime n Type: PLASMA 07:25 AM No comment enter ed. Ordering Provid er: BETO AYALA Report Released Date/Time: May 07, 2022 12:28 PM Reporting Lab: [facility] [address] Performing Lab: [facility] [address] .INR 1.2 H 0.8-1.1 .PT 14.2 H 9.4-12.5 May 08, 2022 [facility] COMPREHENSIVE METABOLIC Spec imen Type: PLASMA 07:25 AM PANEL+MG No comment enter ed. Ordering Provid er: BETO AYALA Report Released Date/Time: May 07, 2022 12:28 PM Reporting Lab: [facility] [address] Performing Lab: [facility] [address] CREATININE 1.1 0.7-1.2 UREA NITROGEN 27 H [...] >60 May 08, 2022 06:53 [facility] FINGERSTICK GLUCOSE Speci men Type: BLOOD AM Comment: Mark casillas Ordering Provid er: CODIE LEON Report Released Date/Time: May 08, 2022 07:18 AM Reporting Lab: [facility] [address] [facility] [address] Performing Lab: [facility] [address] FINGERSTICK GLUCOSE 276 H 70-100 May 07, 2022 08:36 [facility] FINGER[place]ICK GLUCOSE Speci men Type: BLOOD PM Comment: Nurse Notified Ordering Provid er: CODIE LEON Report Released Date/Time: May 08, 2022 12:29 AM Reporting Lab: [facility] [address] [facility] [address] Performing Lab: [facility] [address] [facility] [address] FINGERSTICK GLUCOSE 282 H 70-100 May 07, 2022 07:04 PM [facility] LACTIC ACID Specim en Type: PLASMA No comment enter ed. Ordering Provid er: BETO AYALA Report Released Date/Time: May 07, 2022 06:28 PM Reporting Lab: [facility] [address] [facility] [address] Performing Lab: [facility] [address] [facility] [address] LACTIC ACID 2.0 0.5-2.2 May 07, 2022 04:46 [facility] FINGERSTICK GLUCOSE Speci men Type: BLOOD PM Comment: Nurse Notified Ordering Provid er: BETO AYALA Report Released Date/Time: May 07, 2022 05:00 PM Reporting Lab: [facility] [address] [facility] [address] Performing Lab: [facility] [address] [facility] [address] FINGERSTICK GLUCOSE 274 H 70-100 May 07, 2022 12:47 [facility] FINGERSTICK GLUCOSE Speci men Type: BLOOD PM Comment: Mark casillas Nurse Notified Ordering Provid er: BETO AYALA Report Released Date/Time: May 07, 2022 05:32 PM Reporting Lab: [facility] [address] [facility] [address] Performing Lab: [facility] [address] [facility] [address] FINGERSTICK GLUCOSE 309 H 70-100 May 07, 2022 06:35 [facility] FINGERSTICK GLUCOSE Speci men Type: BLOOD AM Comment: Mark casillas Nurse Notified Ordering Provid er: GAYLA DOMINGUEZ Report Released Date/Time: May 07, 2022 06:46 AM Reporting Lab: [facility] [address] [facility] [address] Performing Lab: [facility] [address] [facility] [address] FINGERSTICK GLUCOSE 352 H 70-100 May 07, 2022 06:15 AM [facility] ALBUMIN Specim en Type: PLASMA No comment enter ed. Ordering Provid er: GAYLA DOMINGUEZ Report Released Date/Time: May 06, 2022 06:33 PM Reporting Lab: [facility] [address] [facility] [address] Performing Lab: [facility] [address] [facility] [address] ALBUMIN 3.0 L 3.5-5.2 May 07, 2022 [facility] COMPREHENSIVE METABOLIC Spec imen Type: PLASMA 06:15 AM PANEL+MG No comment enter ed. Ordering Provid er: GAYLA DOMINGUEZ Report Released Date/Time: May 06, 2022 09:11 PM Reporting Lab: [facility] [address] [facility] [address] Performing Lab: [facility] [address] [facility] [address] CREATININE 1.2 0.7-1.2 UREA NITROGEN 25 8-26 [...] May 07, 2022 06:15 AM [facility] CBC & DIFF Specim en Type: BLOOD Comment: Manual Differential Performed Ordering Provid er: GAYLA DOMINGUEZ Report Released Date/Time: May 06, 2022 09:11 PM Reporting Lab: [facility] [address] [facility] [address] Performing Lab: [facility] [address] [facility] [address] WBC 20.25 H 4.0-11.0 RBC 3.54 L [...] May 07, 2022 12:19 AM [facility] LACTIC ACID Specim en Type: PLASMA No comment enter ed. Ordering Provid er: GAYLA DOMINGUEZ Report Released Date/Time: May 06, 2022 07:13 PM Reporting Lab: [facility] [address] [facility] [address] Performing Lab: [facility] [address] [facility] [address] LACTIC ACID 2.7 H 0.5-2.2 May 06, 2022 10:45 [facility] FINGERSTICK GLUCOSE Speci men Type: BLOOD PM Comment: Mark casillas Nurse Notified Ordering Provid er: GAYLA DOMINGUEZ Report Released Date/Time: May 07, 2022 12:08 AM Reporting Lab: [facility] [address] [facility] [address] Performing Lab: [facility] [address] [facility] [address] FINGERSTICK GLUCOSE 320 H 70-100 May 06, 2022 06:53 [facility] MRSA SURVL NARES Specimen Type: NARES PM DNA No comment enter ed. Ordering Provid er: GAYLA DOMINGUEZ Report Released Date/Time: May 06, 2022 06:33 PM Reporting Lab: [facility] [address] [facility] [address] Performing Lab: [facility] [address] [facility] [address] MRSA SURVL NARES DNA POSITIVE HH Negative May 06, 2022 06:51 PM [facility] LACTIC ACID Specim en Type: PLASMA No comment enter ed. Ordering Provid er: GAYLA DOMINGUEZ Report Released Date/Time: May 06, 2022 06:04 PM Reporting Lab: [facility] [address] [facility] [address] Performing Lab: [facility] [address] [facility] [address] LACTIC ACID 3.1 H 0.5-2.2 May 06, 2022 06:51 [facility] CARDIAC TROPONIN I Specim en Type: PLASMA PM No comment enter ed. Ordering Provid er: GAYLA DOMINGUEZ Report Released Date/Time: May 06, 2022 06:05 PM Reporting Lab: [facility] [address] [facility] [address] Performing Lab: [facility] [address] [facility] [address] CARDIAC TROPONIN I <0.028 <0.028 May 06, 2022 06:51 [facility] EXTRA GOLD GEL TUBE Speci men Type: SERUM PM No comment enter ed. Ordering Provid er: GAYLA DOMINGUEZ Report Released Date/Time: May 06, 2022 06:52 PM Reporting Lab: [facility] [address] [facility] [address] Performing Lab: [facility] [address] [facility] [address] EXTRA GOLD GEL TUBE RECEIVED May 06, 2022 06:51 [facility] C-REACTIVE PROTEIN Specim en Type: PLASMA PM No comment enter ed. Ordering Provid er: GAYLA DOMINGUEZ Report Released Date/Time: May 06, 2022 09:29 PM Reporting Lab: [facility] [address] [facility] [address] Performing Lab: [facility] [address] C-REACTIVE PROTEIN 392.40 H <5.00 May 06, 2022 10:51 AM [facility] URINALYSIS Specim en Type: URINE No comment enter ed. Ordering Provid er: MODESTA VILLANUEVA Report Released Date/Time: May 06, 2022 10:11 AM Reporting Lab: [facility] [address] Performing Lab: [facility] [address] URINE COLOR YELLOW SPECIFIC GRAVITY 1.020 1.003-1.035 [...] NEGATIVE May 06, 2022 10:24 [facility] COVID-19 DIAGNOSTIC Speci men Type: NASOPHARYNGEAL AM PANEL (CEPHEID) Comment: Cephei d GeneXpert (618) Ordering Provid er: MODESTA VILLANUEVA Report Released Date/Time: May 06, 2022 10:11 AM Reporting Lab: [facility] [address] Performing Lab: [facility] [address] COVID-19 (CEPHEID) Not Detected Not Dete cted May 06, 2022 10:20 AM [facility] POC ABG/LACTATE Specim en Type: VENOUS BLOOD No comment enter ed. Ordering Provid er: MODESTA VILLANUEVA Report Released Date/Time: May 06, 2022 10:22 AM Reporting Lab: [facility] [address] Performing Lab: [facility] [address] POC PH 7.410 7.31-7.41 POC PCO2 28.9 L 35.00-45.00 POC PO2 82 H 35.0-40.0 POC TCO2 19 L 24.0-29.0 POC HCO3 18.3 L 23.0-28.0 POC BE ECT -6 L -2 POC SO2 96 H 70-75 POC LACTATE 3.62 0.90-1.70 May 06, 2022 10:00 AM [facility] PHOSPHORUS Specim en Type: PLASMA No comment enter ed. Ordering Provid er: MODESTA VILLANUEVA Report Released Date/Time: May 06, 2022 10:11 AM Reporting Lab: [facility] [address] [facility] [address] Performing Lab: [facility] [address] [facility] [address] PHOSPHORUS 2.5 2.3-4.7 May 06, 2022 10:00 [facility] ACT PART THROMBO TIME Spe cimen Type: PLASMA AM No comment enter ed. Ordering Provid er: MODESTA VILLANUEVA Report Released Date/Time: May 06, 2022 10:11 AM Reporting Lab: [facility] [address] [facility] [address] Performing Lab: [facility] [address] [facility] [address] APTT 37.8 H 25.1-36.5 May 06, 2022 10:00 [facility] PROTHROMBIN TIME/INR Spec imen Type: PLASMA AM No comment enter ed. Ordering Provid er: MODESTA VILLANUEVA Report Released Date/Time: May 06, 2022 10:11 AM Reporting Lab: [facility] [address] [facility] [address] Performing Lab: [facility] [address] [facility] [address] .INR 2.5 H 0.8-1.1 .PT 29.2 H 9.4-12.5 May 06, 2022 10:00 [facility] CARDIAC TROPONIN I Specim en Type: PLASMA AM Comment: Critic al Value Reported To: BROOKS COTE 05-06-2022 @1053 BY MBB. Critical value report confirmed. Ordering Provid er: MODESTA VILLANUEVA Report Released Date/Time: May 06, 2022 10:11 AM Reporting Lab: [facility] [address] [facility] [address] Performing Lab: [facility] [address] [facility] [address] CARDIAC TROPONIN I 0.035 HH <0.028 May 06, 2022 10:00 AM [facility] LIPASE Specim en Type: PLASMA No comment enter ed. Ordering Provid er: MODESTA VILLANUEVA Report Released Date/Time: May 06, 2022 10:11 AM Reporting Lab: [facility] [address] [facility] [address] Performing Lab: [facility] [address] [facility] [address] LIPASE <4 <60 May 06, 2022 10:00 AM [facility] PROCALCITONIN Specim en Type: PLASMA No comment enter ed. Ordering Provid er: MODESTA VILLANUEVA Report Released Date/Time: May 06, 2022 10:11 AM Reporting Lab: [facility] [address] [facility] [address] Performing Lab: [facility] [address] PROCALCITONIN 22.29 H <0.09 May 06, 2022 10:00 AM [facility] CBC & DIFF Specim en Type: BLOOD Comment: Manual Differential Performed Ordering Provid er: MODESTA VILLANUEVA Report Released Date/Time: May 06, 2022 10:11 AM Reporting Lab: [facility] [address] Performing Lab: [facility] [address] WBC 18.82 H 4.0-11.0 RBC 3.70 L [...] PRESENT May 06, 2022 10:00 [facility] EXTRA GOLD GEL TUBE Speci men Type: SERUM AM No comment enter ed. Ordering Provid er: LINNEA RAND Report Released Date/Time: May 06, 2022 10:25 AM Reporting Lab: [facility] [address] Performing Lab: [facility] [address] EXTRA GOLD GEL TUBE RECEIVED May 06, 2022 [facility] COMPREHENSIVE METABOLIC Spec imen Type: PLASMA 10:00 AM PANEL+MG Comment: Manual Differential Performed Ordering Provid er: MODESTA VILLANUEVA Report Released Date/Time: May 06, 2022 10:11 AM Reporting Lab: [facility] [address] Performing Lab: [facility] [address] CREATININE 1.3 H 0.7-1.2 UREA NITROGEN 25 [...] >60 May 06, 2022 09:46 [facility] FINGERSTICK GLUCOSE Speci men Type: BLOOD AM Comment: Mark casillas Nurse Notified Ordering Provid er: MODESTA VILLANUEVA Report Released Date/Time: May 06, 2022 09:59 AM Reporting Lab: [facility] [address] Performing Lab: [facility] [address] FINGERSTICK GLUCOSE 369 H 70-100 Apr 30, 2022 [facility] BASIC METABOLIC Specimen Typ e: PLASMA 09:17 AM PANEL+MG No comment enter ed. Ordering Provid er: BILL ROONEY Report Released Date/Time: Apr 30, 2022 08:21 AM Reporting Lab: [facility] [address] Performing Lab: [facility] [address] CREATININE 1.2 0.7-1.2 UREA NITROGEN 26 8-26 GLUCOSE 140 H 70-100 SODIUM 138 136-145 POTASSIUM 3.8 3.5-5.1 CHLORIDE 107 98-107 CO2 20 L 22-29 CALCIUM 9.4 8.4-10.2 MAGNESIUM 1.7 1.6-2.6 ANION GAP 11 5-15 CREAT EGFR(CKD-EPI) 59 L >60 Apr 30, 2022 09:17 AM [facility] CBC Specim en Type: BLOOD No comment enter ed. Ordering Provid er: TORIBIOBILL L Report Released Date/Time: Apr 30, 2022 08:21 AM Reporting Lab: [facility] [address] [facility] [address] Performing Lab: [facility] [address] [facility] [address] WBC 10.40 4.0-11.0 RBC 3.96 L 4.6-6.2 [...] dy Source Pressure Rate [facility] Index May [facility] 10:37 [facility] May 08, 259.7 34 [place] 2021 09:14 lb [facility] May 08 [facility] 2021 05:54 [facility] Social History: Smoking Status (Most current) and [...] Comment Facility Feb 02, 2022 09:30 AM [place]-TOBACCO NEVER USED [facility] Tobacco Use History This section includes a history of the smoking, or tobacco- related health factors, that were collected on or before the date of the Encounter. The data comes from the [place] facility where the Encounter took place. Date/Time Smoking Status/Tobacco Use Comment [facility] Mar 22, 2021 07:45 AM [place]-TOBACCO NEVER USED [facility] [employer] [facility] Oct 02, 2019 10:02 AM [place]-TOBACCO NEVER USED [place] [facility] May 21, 2018 09:05 AM [place]TO[place]CO [place] US[place] [facility] December 25, 2017 06:14 PM INPT NO TOBACCO USE IN LAST 30 DAYS [facility] Oct 01, 2017 07:34 AM LIFETIME NON-TOBACCO USER [facility] Sep 28, 2016 08:44 AM LIFETIME NON-TOBACCO USER [facility] Oct 14, 2015 07:52 AM LIFETIME NON-TOBACCO USER [facility] Oct 11, 2014 07:59 AM LIFETIME NON-TOBACCO USER [facility] January 15, 2007 07:55 AM LIFETIME NON-TOBACCO USER [facility] Advance Directives: All historical and current [...] 2018 ADVANCE DIRECTIVE LARISSA SIGALA [facility] Apr 18, 2018 ADVANCE DIRECTIVE DISCUSSION JOVONRAEN [facility] December 23, 2017 CLINICAL WARNING FARHAT SCHMID [facility] May 11, 2003 ADVANCE DIRECTIVE BERT CASILLAS [facility] Radiology Reports: +/- 30 days of [...] the Encounter. The data comes from all [place] treatment facilities. Date/Time Radiology Report Provider Source May 11, 2022 09:46 CHEST 1 VIEW: SONJA OVALLES [facility] AM [place] EDDY [id number] -1935 M Exm Date: MAY 11, 2022@09:46 Req Phys: CODIE LEON Loc: OP Unknown /05-13-2022@05:05 Img Loc: MAIN X-RAY Service: PRIMARY CARE - MED OFFICE (Case [id number] COMPLETE) CHEST 1 VIEW (RAD Detailed) CPT:98302 Proc Modifiers : PORTABLE EXAM Reason for Study: resp distress Clinical History: [place] IS NOT under investigation for COVID-19 or is COVID-19 negative Respiratory distress Responsible provider name and phone number to notify for critical findings if other than u ser placing the order and pager listed below: User placing orde rs pager: [phone] cell LAST CREATININE 1.6 H (05/11/22) Report Status: Verified Date Reported: MAY 11, 2022 Date Verified: MAY 11, 2022 Substitute Nurse E-Sig:/ES/SONJA OVALLES MD Report: CHEST 1 VIEW [...] Primary Interpreting Staff: SONJA OVALLES MD, RADIOLOGIST (Substitute Nurse) /CDC May 10, 2022 03:49 CT HEAD (P): RADIOLOGY,OUTSIDE [facility] PM [place] [id number] -1935 M SERVICE Exm Date: MAY 10, 2022@15:49 Req Phys: CODIE LEON Loc: OP Unknown /05-13-2022@05:05 Img Loc: CT IMAGING Service: PRIMARY CARE - MED OFFICE (Case [id number] COMPLETE) CT HEAD/BRAIN W/O CONTRAST (CT Detailed) CPT:01555 Reason for Study: CHANGE IN MENTAL STATUS Clinical History: CHANGE IN MENTAL STATUS. ORDER ADMINISTRATIVELY ENTERED FOLLOWING SYSTEM OUTAGE. Report Status: Verified Date Reported: MAY 10, 2022 Date Verified: MAY 10, 2022 Substitute Nurse E-Sig: Report: CT HEAD/BRAIN W/O CONTRAST [PRINTSET] HISTORY: Change in mental status. COMPARISON: CT from 05/07/2022. TECHNIQUE: Contiguous axial CT images from the level of the skull base through the skull apex, with coronal and s agittal reformats, performed at the local [place] facility. 321 images were received by the [place] National Teleradiology Program (NTP) for interpretation. RADIATION [...] study. READING PHYSICIAN: Akash Mccoy M.D. -[phone] 05/10/2022 17:35 PDT [facility] National Teleradiology Program [phone] (For Medical Practitioner Use Only ) Attention Patients / Veterans: If you have ques tions or concerns about these test results, please contact [facility] or primary care team. Primary Interpreting Staff: RADIOLOGY,OUTSIDE SERVICE, Staff Physician / May 08, 2022 07:45 CT T-SPINE (P): RADIOLOGY,OUTSIDE [facility] NUNUNELYULISANA H [id number] -1935 M SERVICE Exm Date: MAY 08, 2022@19:45 Req Phys: CODIE LEON Loc: OP Unknown /05-13-2022@05:05 Img Loc: CT IMAGING Service: PRIMARY CARE - MED OFFICE (Case [id number] COMPLETE) CT SPINE THORACIC W/O CONTR AST (CT Detailed) CPT:30654 Reason for Study: mrsa bacteremia, spinal surge ry - r/o abscess or discitis Clinical History: [place] IS NOT under investigation for COVID-19 or is COVID-19 negative Defer to radiologist for final CT protocol. Responsible provider name and phone number to n otify for critical findings if other than user placing the order a nd pager listed below: User placing orders pager: [phone] LAST 3: Collection DT Specimen Test Name [...] GFR (eGF 44 L Ref: >=60 Allergies: ([place] only) SIMVASTATIN (Feb 29, 2004) CEPHALEXIN (Mar 01, 2004) Report Status: Verified Date Reported: MAY 08, 2022 Date Verified: MAY 08, 2022 Substitute Nurse E-Sig: Report: CT SPINE THORACIC W/O CONTRAST [PRINTSET] HISTORY:MRSA bacteremia NUMBER OF IMAGES:1151 COMPARISON: Correlation with images from recent CT abdomen and pelvis May 06, 2022 TECHNIQUE: A non contrast CT of the thoracic sp ine was performed at the local [place]. Images were subsequently sent to [facility] for interpretation. Axial, [...] thoracic level. READING PHYSICIAN: Luisana Webb MD -[phone] 05/08/2022 19:20 PDT [facility] National Teleradiology Program [phone] (For Medical Practitioner Use Only ) Attention Patients / Veterans: If you have ques tions or concerns about these test results, please contact your [facility] provider or primary care team. Primary Interpreting Staff: RADIOLOGY,OUTSIDE SERVICE, Staff Physician / May 08, 2022 04:48 CHEST 1 VIEW: RADIOLOGY,OUTSIDE [facility] PM LU[place]NA EDDY [id number] -1935 M SERVICE Exm Date: MAY 08, 2022@16:48 Req Phys: CODIE LEON Loc: OP Unknown /05-13-2022@05:05 Img Loc: MAIN X-RAY Service: PRIMARY CARE - MED OFFICE (Case [id number] COMPLETE) CHEST 1 VIEW (RAD Detailed) CPT:00606 Proc Modifiers : PORTABLE EXAM Reason for Study: dyspnea Clinical History: [place] IS NOT under investigation for COVID-19 or is COVID-19 negative acute worsening of dyspnea Responsible provider name and phone number to notify for critical findings if other than user placing the order and pager listed below: User placing orders pager: [phone] malini cell [phone] LAST CREATININE 1.1 (05/08/22) Report Status: Verified Date Reported: MAY 08, 2022 Date Verified: MAY 08, 2022 Substitute Nurse E-Sig: Report: CHEST 1 VIEW HISTORY: dyspnea COMPARISON: 05/06/2022 TECHNIQUE: Frontal view(s) of the chest, submit nola to the [place] National Teleradiology Program (NTP) for interp retation. FINDINGS: Reduced lung volumes. Progressive cardiomegaly, and vascular congestion as well as diffuse interstitial prom inence with probable small effusions. Impression: Expiratory exam with findings of CHF and mild e santa READING PHYSICIAN: Nghia Menjivar M.D. -[phone] 10 05/08/2022 18:57 EDT [facility] National Teleradiology Program [phone] (For Medical Practitioner Use Only ) Attention Patients / Veterans: If you have ques tions or concerns about these test results, please contact your [facility] provider or primary care team. Primary Interpreting Staff: RADIOLOGY,OUTSIDE SERVICE, Staff Physician / May 07, 2022 10:29 CT HEAD (P): SHANI POLANCO [facility] AM [place]NA EDDY [id number] -1935 M Exm Date: MAY 07, 2022@10:29 Req Phys: BETO AYALA Loc: OP Unknown/0 05-13-2022@05:05 Img Loc: CT IMAGING Service: PRIMARY CARE - MED OFFICE (Case [id number] COMPLETE) CT HEAD/BRAIN W/O CONTRAST ( CT Detailed) CPT:15614 Reason for Study: seizure noted at [facility] Clinical History: IS NOT under investigation for COVID-19 or is COVID-19 negative Defer to radiologist for final CT protocol. Responsible provider name and phone number to n otify for critical findings if other than user placing the order a nd pager listed below: User placing orders pager: [phone] LAST 3: Collection DT Specimen Test Name [...] GFR (eGF 44 L Ref: >=60 Allergies: ([place] only) SIMVASTATIN (Feb 29, 2004) CEPHALEXIN (Mar 01, 2004) Report Status: Verified Date Reported: MAY 07, 2022 Date Verified: MAY 07, 2022 Substitute Nurse E-Sig:/ES/SHANI POLANCO MD Report: EXAM: CT HEAD/BRAIN W/O CONTRAST HISTORY: seizure noted at [facility] Reason for Study: seizure noted at [facility] [place] IS NOT under investigation for COVID-19 or is COVID-19 negative Defer to radiologist for final CT prot ocol. Responsible provider name and phone number to notify for cr itical findings if other than user placing the order and pager lis nola below: User placing orders pager: [phone] LAST 3: Collecti on DT Specimen Test [...] Primary Interpreting Staff: SHANI POLANCO MD, RADIOLOGIST (Substitute Nurse) /Javed May 06, 2022 11:40 CHEST 1 VIEW: RADIOLOGY,OUTSIDE [facility] AM LUISANA EDDY [id number] -1935 M SERVICE Exm Date: MAY 06, 2022@11:40 Req Phys: MODESTA VILLANUEVA Loc: [facility] EMERGENCY DEPT WALK-IN (Re Img Loc: MAIN X-RAY Service: Unknown (Case 73 COMPLETE) CHEST 1 VIEW (RAD Detailed) C PT:03238 Proc Modifiers : PORTABLE EXAM Reason for [...] pager listed below: User placing orders pager: [phone] LAST CREATININE 1.2 (04/30/22) Report Status: Verified Date Reported: MAY 06, 2022 Date Verified: MAY 06, 2022 Substitute Nurse E-Sig: Report: Technique: Frontal chest. No comparison Impression: Cardiac silhouette is mildly enlarged. There is mild pulmonary venous congestion. No definite pleural effusion . No pneumothorax seen. READING PHYSICIAN: Vern Donnelly M.D. -[phone] 07 05/06/2022 13:26 EDT [facility] National Teleradiology Program [phone] (For Medical Practitioner Use Only ) Attention Patients / Veterans: If you have ques tions or concerns about these test results, please contact your o rdering provider or primary care team. Primary Interpreting Staff: RADIOLOGY,OUTSIDE SERVICE, Staff Physician / May 06, 2022 10:36 CT (AP) ABDOMEN/PELVIS (P): RADIOLOGY,OUTSIDE [facility] AM [place] EDDY [id number] -1935 M SERVICE Exm Date: MAY 06, 2022@10:36 Req Phys: MODESTA VILLANUEVA Loc: [facility] EMERGENCY DEPT WALK-IN (Re Img Loc: CT IMAGING Service: Unknown (Case 66 COMPLETE) CT (AP) ABDOMEN/PELVIS W CONT RAST(CT Detailed) CPT:52717 Reason for Study: fever, back pain Clinical [...] pager listed below: User placing orders pager: [phone] LAST 3: Collection DT Specimen Test Name [...] ESTIMATED GFR(eGF 44 L Ref: >=60 Allergies: ([place] only) SIMVASTATIN (Feb 29, 2004) CEPHALEXIN (Mar 01, 2004) To see allergies from all [facility] locations click Re ports tab>Remote Data>All Available Sites>Clinical Reports>Aller gies. Report Status: Verified Date Reported: MAY 06, 2022 Date Verified: MAY 06, 2022 Substitute Nurse E-Sig: Report: Exam: CT (AP) ABDOMEN/PELVIS W CONTRAST [PRINTS ET] Clinical History: fever, back pain Number of images: 918 Comparison: No priors available Technique: The study was protocoled and supervi sed at the local [place] facility. CT of the abdomen and pelvis was performed afte r the uneventful administration of iodinated contrast. Images we re received by the [place] National Teleradiology Program (NTP) for interpretation. Total [...] findings, above. READING PHYSICIAN: Eduin Donaldson M.D. -[phone] 05/06/2022 12:48 [facility] [employer] [phone] (For Medical Practitioner Use Only ) Attention Patients / Veterans: If you have ques tions or concerns about these test results, please contact your [facility] provider or primary care team. Primary Interpreting Staff: RADIOLOGY,OUTSIDE SERVICE, Staff Physician / May 06, 2022 10:35 CT HEAD/BRAIN W/O CONTRAST: RADIOLOGY,OUTSIDE [facility] LU[place] EDDY [id number] -1935 SERVICE Exm Date: MAY 06, 2022@10:35 Req Phys: MODESTA VILLANUEVA Loc: [facility] EMERGENCY DEPT WALK-IN (Re Img Loc: CT IMAGING Service: Unknown (Case 64 COMPLETE) CT HEAD/BRAIN W/O CONTRAST (C T Detailed) CPT:21704 Reason for Study: falls, blood thinner, AMS, se izure Clinical History: falls, blood thinner, AMS, seizure IS under investigation (PUI) for COVID- 19 or is COVID-19+ Defer to radiologist for final CT protocol. Responsible provider name and phone number to n otify for critical findings if other than user placing the order a nd pager listed below: User placing orders pager: [phone] LAST 3: Collection DT Specimen Test Name [...] ESTIMATED GFR(eGF 44 L Ref: >=60 Allergies: ([place] only) SIMVASTATIN (Feb 29, 2004) CEPHALEXIN (Mar 01, 2004) To see allergies from all [place] locations click Re ports tab>Remote Data>All Available Sites>Clinical Reports>Aller gies. Report Status: Verified Date Reported: MAY 06, 2022 Date Verified: MAY 06, 2022 Substitute Nurse E-Sig: Report: CT HEAD/BRAIN W/O CONTRAST Clinical History: falls, blood thinner, AMS, se izure Number of Images: 532 Comparison: 03/12/2022 Technique: The study was protocoled and supervi sed at the local [place] facility. CT of the head without contrast. I mages were subsequently received by the [place] National Telera diology Program (NTP) for interpretation. [...] T findings. READING PHYSICIAN: Eduin Donaldson M.D. -[phone] 05/06/2022 12:30 [facility] National Teleradiology Program [phone] (For Medical Practitioner Use Only ) Attention Patients / Veterans: If you have ques tions or concerns about these test results, please contact your o rdering provider or primary care team. Primary Interpreting Staff: RADIOLOGY,OUTSIDE SERVICE, Staff Physician / May 06, 2022 10:35 CT CERVICAL SPINE W/O CONTRAST: RADIOLOGY,OUT SIDE [facility] AM LUISANA EDDY [id number] -1935 M SERVICE Exm Date: MAY 06, 2022@10:35 Req Phys: MODESTA VILLANUEVA Loc: [facility] EMERGENCY DEPT WALK-IN (Re Img Loc: CT IMAGING Service: Unknown (Case 65 COMPLETE) CT CERVICAL SPINE W/O CONTRAS T (CT Detailed) CPT:55994 Reason for Study: falls, blood thinner, AMS, se izure Clinical History: falls, blood thinner, AMS, seizure [place] IS under investigation (PUI) for COVID- 19 or is COVID-19+ Defer to radiologist for final CT protocol. Responsible provider name and phone number to n otify for critical findings if other than user placing the order a nd pager listed below: User placing orders pager: [phone] LAST 3: Collection DT Specimen Test Name [...] ESTIMATED GFR(eGF 44 L Ref: >=60 Allergies: ([place] only) SIMVASTATIN (Feb 29, 2004) CEPHALEXIN (Mar 01, 2004) To see allergies from all [facility] locations click Re ports tab>Remote Data>All Available Sites>Clinical Reports>Aller gies. Report Status: Verified Date Reported: MAY 06, 2022 Date Verified: MAY 06, 2022 Substitute Nurse E-Sig: Report: CT CERVICAL SPINE W/O CONTRAST HISTORY:falls, blood thinner, AMS, seizure NUMBER OF IMAGES:770 COMPARISON: None available. TECHNIQUE: A non contrast CT of the cervical sp ine was performed at the local [place]. Images were subsequently sent to [facility] for interpretation. Axial, [...] tissues: 11 mm subcutaneous cyst in the [facility] upper neck. Impression: -Motion artifact limits the exam. -Given this limitation, no acute osseous abnorm ality. -Moderate multilevel degenerative change throug hout the cervical spine. -Ancillary findings, above. READING PHYSICIAN: Eduin Donaldson M.D. -[phone] 05/06/2022 12:33 [facility] National Teleradiology Program [phone] (For Medical Practitioner Use Only ) Attention Patients / Veterans: If you have ques tions or concerns about these test results, please contact your [facility] behavioral health provider or primary care team. [...] the Encounter. The data comes from all [place] treatment facilities. Date/Time Pathology Report Provider Source May 09, 2022 05:30 AM LR MICROBIOLOGY REPORT: [facility] Reporting Lab: [facility] [CLIA# [id number]] [place] [address] Accession [UID]: [id number] [[id number]] Receiv ed: May 09, 2022@01:35 Collection sample: BLOOD Collection date: Apr 05:30 Provider: CODIE LEON Comment on specimen: LEFT ARM, RECEIVED 2 BLOOD CULTURE BOTTLES Test(s) ordered: CULTURE & SUSCEPTIBILITY...... 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 R TRIMETH/SULFA................. S TETRACYCLINE.................. S CLINDAMYCIN................... S RIFAMPIN...................... S VANCOMYCIN.................... S Bacteriology Remark(s): VANCOMYCIN SHAMIKA: <=0.5 ug/mL THIS REPORT IS FINAL =--=--=--=--=--=--=--=--=--=--=--=--=--= --=--=--=--=--=--=--=--=--=--=--=--=-- Performing Laboratory: Bacteriology Report Performed By: [facility] [CLIA# [id number]] [place] [address] May 08, 2022 03:23 PM LR MICROBIOLOGY REPORT: [facility] Reporting Lab: [facility] [CLIA# [id number] 147] [place] [address] Accession [UID]: [id number] [[id number]] Receiv ed: May 08, 2022@15:41 Collection sample: BLOOD Collection date: Apr 15:23 Provider: CODIE LEON Comment on specimen: LEFT ARM, RECEIVED 2 BLOOD CULTURE BOTTLES Test(s) ordered: CULTURE & SUSCEPTIBILITY...... completed: May 10, 2022 * BACTERIOLOGY FINAL REPORT => May 10, 2022 16:3 1 TECH CODE: [id number] CULTURE RESULTS: GROWTH SAME THAT OF ANOTHER CULTURE Comment: FOR SUSCEPTIBILITY REPORT SEE PREVIOUS POSITIVE SAME MB 22 [id number] ( 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 from Anaerobic bottle ) ( Recovered from Aerobic bottle ) Bacteriology Remark(s): THIS REPORT IS FINAL =--=--=--=--=--=--=--=--=--=--=--=--=--= --=--=--=--=--=--=--=--=--=--=--=--=-- Performing Laboratory: Bacteriology Report Performed By: [facility] [CLIA# [id number]] [place] [address] May 08, 2022 03:21 PM LR MICROBIOLOGY REPORT: [facility] Reporting Lab: [facility] [CLIA# [id number]] [place] [address] Accession [UID]: [id number] [[id number]] Receiv ed: May 08, 2022@15:40 Collection sample: BLOOD Collection date: Apr 15:21 Provider: CODIE LEON Comment on specimen: RT ARM, RECEIVED 2 BLOOD CU LTURE BOTTLES Test(s) ordered: CULTURE & SUSCEPTIBILITY...... completed: May 10, 2022 * BACTERIOLOGY FINAL REPORT => May 10, 2022 16:3 1 TECH CODE: [id number] CULTURE RESULTS: GROWTH SAME THAT OF ANOTHER CULTURE Comment: FOR SUSCEPTIBILITY REPORT SEE PREVIOUS POSITIVE SAME MB 22 [id number] ( 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 from Anaerobic bottle ) ( Recovered from Aerobic bottle ) Bacteriology Remark(s): THIS REPORT IS FINAL =--=--=--=--=--=--=--=--=--=--=--=--=--= --=--=--=--=--=--=--=--=--=--=--=--=-- Performing Laboratory: Bacteriology Report Performed By: [facility] [CLIA# [id number]] [place] [address] May 07, 2022 05:30 AM LR MICROBIOLOGY REPORT: [facility] Reporting Lab: [facility] [CLIA# [id number] 147] [place] [address] Accession [UID]: [id number] [[id number]] Receiv ed: May 07, 2022@01:35 Collection sample: [...] REPORT SEE PREVIOUS POSITIVE SAME MB 22 [id number] ( 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 from Aerobic bottle ) ( Recovered from Anaerobic bottle ) Bacteriology Remark(s): THIS REPORT IS FINAL =--=--=--=--=--=--=--=--=--=--=--=--=--= --=--=--=--=--=--=--=--=--=--=--=--=-- Performing Laboratory: Bacteriology Report Performed By: [facility] [CLIA# [id number]] [place] [address] May 06, 2022 10:51 AM LR MICROBIOLOGY REPORT: [facility] Reporting Lab: [facility] [CLIA# [id number]] [place] [address] Accession [UID]: [id number] [[id number]] Receiv ed: May 06, 2022@11:32 Collection sample: [...] Laboratory: Bacteriology Report Performed By: [facility] [CLIA# [id number]] [place] [address] May 06, 2022 10:34 AM LR MICROBIOLOGY REPORT: [facility] Reporting Lab: [facility] [CLIA# [id number] 147] [place] [address] Accession [UID]: [id number] [[id number]] Receiv ed: May 06, 2022@10:51 Collection sample: BLOOD Collection date: Apr 10:34 Provider: MODESTA VILLANUEVA Comment on specimen: RECEIVED 2 BLOOD CULTURE [facility] Test(s) ordered: CULTURE & SUSCEPTIBILITY...... completed: May 07, 2022 * BACTERIOLOGY FINAL REPORT => May 08, 2022 08:3 0 TECH CODE: [id number] CULTURE RESULTS: STAPHYLOCOCCUS AUREUS METHICILL IN RESISTANT [...] Laboratory: Bacteriology Report Performed By: [facility] [CLIA# [id number]] [place] [address] May 06, 2022 10:00 AM LR MICROBIOLOGY REPORT: [facility] Reporting Lab: [facility] [CLIA# [id number] 147] [place] [address] Accession [UID]: [id number] [[id number]] Receiv ed: May 06, 2022@10:41 Collection sample: [...] REPORT SEE PREVIOUS POSITIVE SAME MB 22 [id number] ( 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 from Anaerobic bottle ) ( Recovered from Aerobic bottle ) Bacteriology Remark(s): THIS REPORT IS FINAL =--=--=--=--=--=--=--=--=--=--=--=--=--= --=--=--=--=--=--=--=--=--=--=--=--=-- Performing Laboratory: Bacteriology Report Performed By: [facility] [CLIA# [id number]] [place] [address]
--- OUTSIDE RECORDS SUMMARY | 2022-05-15 09:34 | XMS_ITS | Encounter Summary ---
:1935 Author Organization [facility] rs Address [address] [place] [id number] Support Name Relationship Address Phone WADE LORENZO Unavailable [address] [place] [address] WADE LORENZO Unavailable [address] [place] [address] ARACELI MARSHALL Unavailable [address] [place] [address] ARACELI MARSHALL Unavailable [address] [place] [address] Insurance Providers: All historical and current Section [...] [place] M[place] Aug 19, [id number] [address] EDDY [facility] (WNR) ADVANTAGE (WNR) 2017 8 [id number] [phone] [facility] 1 [place] MEDICARE MCR Aug 19, [id number] [address] [facility] (WNR) 2017 8 [id number] [phone] [facility] 1 Selected Encounter This section includes the information on record at [place] for the Encounter. Date/Time Encounter Type Encounter [...] this document. The data comes from all [place] facilities. Date Advance Directives Provider Source Apr 18, 2018 ADVANCE DIRECTIVE LARISSA SIGALA [facility] Apr 18, 2018 ADVANCE DIRECTIVE DISCUSSION LARISSA SIGALA [facility] December 23, 2017 CLINICAL WARNING FARHAT [facility] May 11, 2003 ADVANCE DIRECTIVE BERT CASILLAS [facility]
--- OUTSIDE RECORDS SUMMARY | 2022-05-15 09:34 | XMS_ITS | Encounter Summary ---
:1935 Author Organization [facility] rs Address [address] [place] [address] Support Name Relationship Address Phone WADE LORENZO Unavailable [id number] [place] [address] WADE LORENZO Unavailable [id number] [place] [address] JOANNA ARACELI Unavailable [phone] [place] [address] GOMARILIA VAZQUEZA Unavailable [phone] [place] [address] Insurance Providers: All historical and current Section [...] [place] MED[place]ARE MCR Aug 19, [id number] Krist[address] EDDY [facility] (WNR) ADVANTAGE (WNR) 2016 8 [id number] [phone] [facility] 1 [place] MEDICARE M[place] Aug 19, [id number] Krist[address] EDDY [facility] (WNR) ADVANTAGE (WNR) 2016 8 [id number] [phone] [facility] 1 Selected Encounter This section includes the information on record at PA for the Encounter. 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 Date/Time Primary/Secondary Diagnosis Name Provider Source Diagnosis May 08, 2022 PRIMARY Other seizures ROSALIA ROSALES [facility] 05:21 PM HCS May 08, 2022 SECONDARY Bacteremia ROSALIA ROSALES [facility] 05:21 PM [facility] May 08, 2022 SECONDARY Low back pain, ROSALIA ROSALES [facility] 05:21 PM unspecified HCS Plan of Treatment: Future Appointments (+ 6 months) and Future Tests (+/- 45 days) The Plan of Treatment section includes future care activities for the [facility] This section includes future appointments and future orders which are active, pending orscheduled.Future Appointments This section includes appointments that were scheduled to occur 6 months from the date of the Encounter, up to a maximum of 20 appointments. The data comes from all [place] treatment facilities. Appointment Date/Time Appointment Type Appointment Facili ty Name May 11, 2022 06:15 PM AMBULATORY - NONE [facility] Jul 23, 2022 08:00 AM AMBULATORY - NEUROLOGY [facility] Active, Pending, and Scheduled Orders This section includes a listing of several types of active, pending, and scheduled orders, including clinic medications orders, diagnostic test orders, procedure orders and consult orders; where the start date of the order is 45 days before the date of the Encounter or 45 days after the date of the Encounter. The data comes from all [place] treatment facilities. Test Date/Time Test Type Test Details Facility Name Apr 30, 2022 08:21 Laboratory - Chemistry URINALYSIS URINE WC ON CE [facility] AM Order Apr 30, 2022 08:21 Laboratory - CULTURE & SUSCEPTIBILITY [facility] AM Microbiology Order URINE May 06, 2022 12:00 Laboratory - Blood ABO/RH - LAB BLOOD [facility] AM Bank Order May 06, 2022 10:11 Laboratory - Blood TYPE & SCREEN - LAB [facility] Bank Order BLOOD May 06, 2022 10:27 Pharmacy [facility] AM Medication Order May 06, 2022 10:28 [facility] AM Infusion Order May 06, 2022 10:34 [facility] AM Infusion Order May 06, 2022 10:41 [facility] AM Infusion Order May 06, 2022 12:15 Pharmacy [facility] PM Medication Order May 06, 2022 01:31 Pharmacy - [facility] PM Medication Order May 06, 2022 04:49 Pharmacy - [facility] PM Medication Order May 07, 2022 01:00 Laboratory - CULTURE & SUSCEPTIBILITY [facility] PM Microbiology Order BLOOD WC ONCE May 11, 2022 09:07 Laboratory - CULTURE & SUSCEPTIBILITY [facility] AM Microbiology Order BLOOD WC May 11, 2022 09:07 Laboratory - CULTURE & SUSCEPTIBILITY [facility] AM Microbiology Order BLOOD WC May 11, 2022 09:38 Laboratory - Chemistry EOSINOPHIL SMEAR,URINE [facility] AM Order URINE WC ONCE May 11, 2022 09:38 Laboratory - Chemistry URINALYSIS URINE WC ON CE [facility] AM Order May 11, 2022 09:38 Laboratory - Chemistry FENA URINE WC ONCE [facility] AM Order Lab Results: +/- [...] Range Comment May 11, 2022 11:13 [facility] FINGERSTICK GLUCOSE Speci men Type: BLOOD AM Comment: Mark casillas Nurse Notified Ordering Provid er: CODIE LEON Report Released Date/Time: May 11, 2022 11:53 AM Reporting Lab: [facility] [address] [facility] [address] Performing Lab: [facility] [address] [facility] [address] FINGERSTICK GLUCOSE 367 H 70-100 May 11, 2022 07:05 [facility] LIVER FUNCTION TESTS Spec imen Type: PLASMA AM No comment enter ed. Ordering Provid er: CODIE LEON Report Released Date/Time: May 11, 2022 09:08 AM Reporting Lab: [facility] [address] [facility] [address] Performing Lab: [facility] [address] [facility] [address] BILIRUBIN, TOTAL 1.6 H 0.2-1.2 ALKALINE PHOSPHATASE 102 40-150 ALT/SGPT 42 <55 AST/SGOT 30 <34 GAMMA GTP 52 <64 DIR. BILIRUBIN 1.2 H <0.5 May 11, 2022 07:[address] [facility] CK,TOTAL Specim en Type: PLASMA No comment enter ed. Ordering Provid er: CODIE LEON Report Released Date/Time: May 11, 2022 09:08 AM Reporting Lab: [facility] [address] [facility] [address] Performing Lab: [facility] [address] [facility] [address] CK,TOTAL 16 L 39-208 May 11, 2022 07:05 [facility] BASIC METABOLIC Specimen Type: PLASMA AM PANEL+MG No comment enter ed. Ordering Provid er: OG DIAL Report Released Date/Time: May 11, 2022 04:46 AM Reporting Lab: [facility] [address] [facility] [address] Performing Lab: [facility] [place] [address] [facility] [address] CREATININE 1.6 H 0.7-1.2 UREA NITROGEN 28 H 8-26 GLUCOSE 396 H 70-100 SODIUM 150 H 136-145 POTASSIUM 3.7 3.5-5.1 CHLORIDE 120 H 98-107 CO2 23 22-29 CALCIUM 8.4 8.4-10.2 MAGNESIUM 2.1 1.6-2.6 ANION GAP 7 5-15 CREAT EGFR(CKD-EPI) 42 L >60 May 11, 2022 07:[address] [facility] BNP Specim en Type: PLASMA No comment enter ed. Ordering Provid er: CODIE LEON Report Released Date/Time: May 11, 2022 09:15 AM Reporting Lab: [facility] [address] [facility] [address] Performing Lab: [facility] [address] [facility] [address] BNP 59 <99 May 11, 2022 07:[address] [facility] CBC Specim en Type: BLOOD No comment enter ed. Ordering Provid er: OG DIAL Report Released Date/Time: May 11, 2022 04:46 AM Reporting Lab: [facility] [address] [address] [facility] [address] Performing Lab: [facility] [address] [address] [facility] [address] WBC 15.93 H 4.0-11.0 RBC 3.60 L 4.6-6.2 HGB 11.2 L 13.5-17.9 HCT 35.3 L 41-54 MCV 98.1 80-100 MCH 31.1 27-33 MCHC 31.7 L 32.0-37.5 PLT 231 150-400 MPV 11.2 H 7.4-10.4 RDW 15.2 H 11.5-14.5 May 11, 2022 06:14 [facility] FINGERSTICK GLUCOSE Speci men Type: BLOOD AM Comment: Mark casillas Nurse Notified Ordering Provid er: CODIE LEON Report Released Date/Time: May 11, 2022 06:42 AM Reporting Lab: [facility] [address] [facility] [address] Performing Lab: [facility] [address] [facility] [address] FINGERSTICK GLUCOSE 345 H 70-100 May 11, 2022 02:24 [facility] FINGERSTICK GLUCOSE Speci men Type: BLOOD AM Comment: Mark casillas Ordering Provid er: CODIE LEON Report Released Date/Time: May 11, 2022 02:44 AM Reporting Lab: [facility] [address] [facility] [address] Performing Lab: [facility] [address] [facility] [address] FINGERSTICK GLUCOSE 375 H 70-100 May 10, 2022 08:38 [facility] FINGERSTICK GLUCOSE Speci men Type: BLOOD PM Comment: Mark casillas Ordering Provid er: CODIE LEON Report Released Date/Time: May 11, 2022 12:31 AM Reporting Lab: [facility] [address] [facility] [address] Performing Lab: [facility] [address] [facility] [address] FINGERSTICK GLUCOSE 346 H 70-100 May 10, 2022 05:05 [facility] FINGERSTICK GLUCOSE Speci men Type: BLOOD PM Comment: Mark casillas Nurse Notified Ordering Provid er: CODIE LEON Report Released Date/Time: May 10, 2022 11:50 PM Reporting Lab: [facility] [address] [facility] [address] Performing Lab: [facility] [address] [facility] [address] FINGERSTICK GLUCOSE 245 H 70-100 May 10, 2022 02:00 [facility] VANCOMYCIN (TROUGH) Speci men Type: PLASMA PM No comment enter ed. Ordering Provid er: CODIE LEON Report Released Date/Time: May 11, 2022 01:34 AM Reporting Lab: [facility] [address] Performing Lab: [facility] [address] VANCOMYCIN (TROUGH) 31.8 H 10.0-15.0 May 10, 2022 [facility] BASIC METABOLIC Specimen Typ e: PLASMA 02:00 PM PANEL+MG No comment enter ed. Ordering Provid er: CODIE LEON Report Released Date/Time: May 11, 2022 01:34 AM Reporting Lab: [facility] [address] Performing Lab: [facility] [address] CREATININE 1.1 .7-1.2 UREA NITROGEN 22 8-26 GLUCOSE 279 H 70-100 SODIUM 150 H 136-145 POTASSIUM 3.2 L 3.5-5.1 CHLORIDE 116 H 98-107 CO2 23 22-29 CALCIUM 8.5 8.4-10.2 MAGNESIUM 2.0 1.6-2.6 ANION GAP 11 5-15 CREAT EGFR(CKD-EPI) 65 >60 May 10, 2022 01:[address] [facility] CBC & DIFF Specim en Type: BLOOD Comment: Automa nola Differential Performed Ordering Provid er: MD ESTEBAN Report Released Date/Time: May 10, 2022 08:52 PM Reporting Lab: [facility] [address] Performing Lab: [facility] [address] WBC 16.24 H 4.0-11.0 RBC 3.76 L [...] H 0-0.1 May 10, 2022 11:07 [facility] FINGERSTICK GLUCOSE Speci men Type: BLOOD AM Comment: Mark casillas Nurse Notified Ordering Provid er: CODIE LEON Report Released Date/Time: May 11, 2022 12:31 AM Reporting Lab: [facility] [address] [facility] [address] Performing Lab: [facility] [address] [facility] [address] FINGERSTICK GLUCOSE 253 H 70-100 May 10, 2022 06:16 [facility] FINGERSTICK GLUCOSE Speci men Type: BLOOD AM Comment: Mark casillas Nurse Notified Ordering Provid er: CODIE LEON Report Released Date/Time: May 10, 2022 11:50 PM Reporting Lab: [facility] [address] [facility] [address] Performing Lab: [facility] [address] [facility] [address] FINGERSTICK GLUCOSE 271 H 70-100 May 09, 2022 09:07 [facility] FINGERSTICK GLUCOSE Speci men Type: BLOOD PM Comment: Mark casillas Ordering Provid er: CODIE LEON Report Released Date/Time: May 10, 2022 11:50 PM Reporting Lab: [facility] [address] [facility] [address] Performing Lab: [facility] [address] [facility] [address] FINGERSTICK GLUCOSE 209 H 70-100 May 09, 2022 05:33 [facility] FINGERSTICK GLUCOSE Speci men Type: BLOOD PM Comment: Mark casillas Nurse Notified Ordering Provid er: CODIE LEON Report Released Date/Time: May 09, 2022 05:53 PM Reporting Lab: [facility] [address] [facility] [address] Performing Lab: [facility] [address] [facility] [address] FINGERSTICK GLUCOSE 251 H 70-100 May 09, 2022 02:09 [facility] VANCOMYCIN (PEAK) Specime n Type: SERUM PM No comment enter ed. Ordering Provid er: AMARIS DE JESUS Report Released Date/Time: May 09, 2022 09:33 AM Reporting Lab: [facility] [address] [facility] [address] Performing Lab: [facility] [address] VANCOMYCIN (PEAK) 24.2 20.0-40.0 May 09, 2022 11:19 [facility] FINGERSTICK GLUCOSE Speci men Type: BLOOD AM Comment: Mark casillas Nurse Notified Ordering Provid er: CODIE LEON Report Released Date/Time: May 09, 2022 11:38 AM Reporting Lab: [facility] [address] Performing Lab: [facility] [address] FINGERSTICK GLUCOSE 240 H 70-100 May 09, 2022 08:13 [facility] VANCOMYCIN (TROUGH) Speci men Type: SERUM AM No comment enter ed. Ordering Provid er: AMARIS DE JESUS Report Released Date/Time: May 08, 2022 11:14 AM Reporting Lab: [facility] [address] [facility] [address] Performing Lab: [facility] [address] VANCOMYCIN (TROUGH) 16.1 H 10.0-15.0 May 09, 2022 05:[address] [facility] CBC & DIFF Specim en Type: BLOOD Comment: Automa nola Differential Performed Ordering Provid er: CODIE LEON Report Released Date/Time: May 08, 2022 05:27 PM Reporting Lab: [facility] [address] [facility] [address] Performing Lab: [facility] [address] [facility] [address] WBC 14.92 H 4.0-11.0 RBC 3.41 L [...] 0.16 H 0-0.1 May 09, 2022 [facility] COMPREHENSIVE METABOLIC Spec imen Type: PLASMA 05:32 AM PANEL+MG No comment enter ed. Ordering Provid er: CODIE LEON Report Released Date/Time: May 08, 2022 05:27 PM Reporting Lab: [facility] [address] [facility] [address] Performing Lab: [facility] [address] [facility] [address] CREATININE 1.2 0.7-1.2 UREA NITROGEN 25 8-26 [...] L >60 May 09, 2022 05:16 [facility] FINGERSTICK GLUCOSE Speci men Type: BLOOD AM Comment: Mark casillas Nurse Notified Ordering Provid er: CODIE LEON Report Released Date/Time: May 09, 2022 07:27 AM Reporting Lab: [facility] [address] [facility] [address] Performing Lab: [facility] [address] [facility] [address] FINGERSTICK GLUCOSE 295 H 70-100 May 08, 2022 09:[address] [facility] EXTRA MINT TUBE Specim en Type: PLASMA No comment enter ed. Ordering Provid er: MD ESTEBAN Report Released Date/Time: May 08, 2022 09:32 PM Reporting Lab: [facility] [address] [facility] [address] Performing Lab: [facility] [address] [facility] [address] EXTRA MINT TUBE RECEIVED May 08, 2022 09:[address] [facility] EXTRA PURPLE TUBE Spec imen Type: BLOOD No comment enter ed. Ordering Provid er: MD ESTEBAN Report Released Date/Time: May 08, 2022 09:32 PM Reporting Lab: [facility] [address] [facility] [address] Performing Lab: [facility] [address] [facility] [address] EXTRA PURPLE TUBE RECEIVED May 08, 2022 09:32 [facility] EXTRA GOLD GEL TUBE Speci men Type: SERUM PM No comment enter ed. Ordering Provid er: MD ESTEBAN Report Released Date/Time: May 08, 2022 09:32 PM Reporting Lab: [facility] [address] [facility] [address] Performing Lab: [facility] [address] [facility] [address] EXTRA GOLD GEL TUBE RECEIVED May 08, 2022 09:[address] [facility] EXTRA BLUE TUBE Specim en Type: PLASMA No comment enter ed. Ordering Provid er: MD ESTEBAN Report Released Date/Time: May 08, 2022 09:32 PM Reporting Lab: [facility] [address] [facility] [address] Performing Lab: [facility] [address] [facility] [address] EXTRA BLUE TUBE RECEIVED May 08, 2022 09:[address] [facility] EXTRA BRASWELL TUBE Specim en Type: PLASMA No comment enter ed. Ordering Provid er: MD ESTEBAN Report Released Date/Time: May 08, 2022 09:37 PM Reporting Lab: [facility] [address] [facility] [address] Performing Lab: [facility] [address] [facility] [address] EXTRA BRASWELL TUBE RECEIVED May 08, 2022 09:[address] [facility] LACTIC ACID Specim en Type: PLASMA No comment enter ed. Ordering Provid er: OG DIAL Report Released Date/Time: May 08, 2022 09:49 PM Reporting Lab: [facility] [address] [facility] [address] Performing Lab: [facility] [address] [facility] [address] LACTIC ACID 2.5 H 0.5-2.2 May 08, 2022 09:[address] [facility] BNP Specim en Type: PLASMA No comment enter ed. Ordering Provid er: OG DIAL Report Released Date/Time: May 08, 2022 09:50 PM Reporting Lab: [facility] [address] Performing Lab: [facility] [address] BNP 897 H <99 May 08, 2022 09:[address] [facility] BLOOD GASES Specim en Type: VENOUS BLOOD Comment: O2 THE RAPY = 3L PM Ordering Provid er: OG DIAL Report Released Date/Time: May 08, 2022 09:50 PM Reporting Lab: [facility] [address] Performing Lab: [facility] [address] PH 7.36 7.33-7.43 PCO2 47 41-51 BICARBONATE 24.4 21.0-30.0 PO2 31 L 35-40 OXYGEN SATURATION 54.7 L 70.0-75.0 PH(TEMP CORRECTED) 7.37 7.33-7.43 PCO2(TEMP CORRECTED) 46 41-51 PO2(TEMP CORRECTED) 31 L 35-40 PATIENT TEMPERATURE 36.7 May 08, 2022 09:[address] [facility] CBC Specim en Type: BLOOD No comment enter ed. Ordering Provid er: OG DIAL Report Released Date/Time: May 08, 2022 09:50 PM Reporting Lab: [facility] [address] [address] [facility] [address] Performing Lab: [facility] [address] WBC 18.54 H 4.0-11.0 RBC 3.68 L 4.6-6.2 HGB 11.5 L 13.5-17.9 HCT 35.1 L 41-54 MCV 95.4 80-100 MCH 31.3 27-33 MCHC 32.8 32.0-37.5 PLT 221 150-400 MPV 11.1 H 7.4-10.4 RDW 14.9 H 11.5-14.5 May 08, 2022 [facility] COMPREHENSIVE METABOLIC Spec imen Type: PLASMA 09:32 PM PANEL+MG No comment enter ed. Ordering Provid er: OG DIAL Report Released Date/Time: May 08, 2022 09:50 PM Reporting Lab: [facility] [address] Performing Lab: [facility] [address] [facility] [address] CREATININE 1.3 H 0.7-1.2 UREA NITROGEN 26 [...] L >60 May 08, 2022 08:27 [facility] FINGERSTICK GLUCOSE Speci men Type: BLOOD PM Comment: Mark casillas Nurse Notified Ordering Provid er: CODIE LEON Report Released Date/Time: May 08, 2022 08:55 PM Reporting Lab: [facility] [address] [facility] [address] Performing Lab: [facility] [address] [facility] [address] FINGERSTICK GLUCOSE 272 H 70-100 May 08, 2022 06:56 [facility] FINGERSTICK GLUCOSE Speci men Type: BLOOD PM Comment: Mark casillas Ordering Provid er: CODIE LEON Report Released Date/Time: May 08, 2022 07:08 PM Reporting Lab: [facility] [address] [facility] [address] Performing Lab: [facility] [address] [facility] [address] FINGERSTICK GLUCOSE 262 H 70-100 May 08, 2022 04:50 [facility] FINGERSTICK GLUCOSE Speci men Type: BLOOD PM Comment: Nurse Notified Ordering Provid er: CODIE LEON Report Released Date/Time: May 08, 2022 05:14 PM Reporting Lab: [facility] [address] [facility] [address] Performing Lab: [facility] [address] [facility] [address] FINGERSTICK GLUCOSE 330 H 70-100 May 08, 2022 11:21 [facility] FINGERSTICK GLUCOSE Speci men Type: BLOOD AM Comment: Mark casillas Nurse Notified Ordering Provid er: CODIE LEON Report Released Date/Time: May 08, 2022 11:51 AM Reporting Lab: [facility] [address] [facility] [address] Performing Lab: [facility] [address] [facility] [address] FINGERSTICK GLUCOSE 231 H 70-100 May 08, 2022 07:[address] [facility] CBC & DIFF Specim en Type: BLOOD Comment: Automa nola Differential Performed Ordering Provid er: BETO AYALA Report Released Date/Time: May 07, 2022 12:28 PM Reporting Lab: [facility] [address] [facility] [address] Performing Lab: [facility] [address] [facility] [address] WBC 16.29 H 4.0-11.0 RBC 3.38 L [...] 0.26 H 0-0.1 May 08, 2022 [facility] PROTHROMBIN TIME/INR Specime n Type: PLASMA 07:25 AM No comment enter ed. Ordering Provid er: BETO AYALA Report Released Date/Time: May 07, 2022 12:28 PM Reporting Lab: [facility] [address] [facility] [address] Performing Lab: [facility] [address] .INR 1.2 H 0.8-1.1 .PT 14.2 H 9.4-12.5 May 08, 2022 [facility] COMPREHENSIVE METABOLIC Spec imen Type: PLASMA 07:25 AM PANEL+MG No comment enter ed. Ordering Provid er: BETO AYALA Report Released Date/Time: May 07, 2022 12:28 PM Reporting Lab: [facility] [address] [facility] [address] Performing Lab: [facility] [address] [facility] [address] CREATININE 1.1 0.7-1.2 UREA NITROGEN 27 H [...] 65 >60 May 08, 2022 06:53 [facility] FINGERSTICK GLUCOSE Speci men Type: BLOOD AM Comment: Mark casillas Ordering Provid er: CODIE LEON Report Released Date/Time: May 08, 2022 07:18 AM Reporting Lab: [facility] [address] [facility] [address] Performing Lab: [facility] [address] [facility] [address] FINGERSTICK GLUCOSE 276 H 70-100 May 07, 2022 08:36 [facility] FINGERSTICK GLUCOSE Speci men Type: BLOOD PM Comment: Nurse Notified Ordering Provid er: CODIE LEON Report Released Date/Time: May 08, 2022 12:29 AM Reporting Lab: [facility] [address] [facility] [address] Performing Lab: [facility] [address] [facility] [address] FINGERSTICK GLUCOSE 282 H 70-100 May 07, 2022 07:[address] [facility] LACTIC ACID Specim en Type: PLASMA No comment enter ed. Ordering Provid er: BETO AYALA Report Released Date/Time: May 07, 2022 06:28 PM Reporting Lab: [facility] [address] [facility] [address] Performing Lab: [facility] [address] [facility] [address] LACTIC ACID 2.0 0.5-2.2 May 07, 2022 04:46 [facility] FINGERSTICK GLUCOSE Speci men Type: BLOOD PM Comment: Nurse Notified Ordering Provid er: BETO AYALA Report Released Date/Time: May 07, 2022 05:00 PM Reporting Lab: [facility] [address] [facility] [address] Performing Lab: [facility] [address] [facility] [address] FINGERSTICK GLUCOSE 274 H 70-100 May 07, 2022 12:47 [facility] FINGERSTICK GLUCOSE Speci men Type: BLOOD PM Comment: Mark casillas Nurse Notified Ordering Provid er: BETO AYALA Report Released Date/Time: May 07, 2022 05:32 PM Reporting Lab: [facility] [address] [facility] [address] Performing Lab: [facility] [address] [facility] [address] FINGERSTICK GLUCOSE 309 H 70-100 May 07, 2022 06:35 [facility] FINGERSTICK GLUCOSE Speci men Type: BLOOD AM Comment: Mark casillas Nurse Notified Ordering Provid er: GAYLA DOMINGUEZ Report Released Date/Time: May 07, 2022 06:46 AM Reporting Lab: [facility] [address] [facility] [address] Performing Lab: [facility] [address] [facility] [address] FINGERSTICK GLUCOSE 352 H 70-100 May 07, 2022 06:[address] [facility] ALBUMIN Specim en Type: PLASMA No comment enter ed. Ordering Provid er: GAYLA DOMINGUEZ Report Released Date/Time: May 06, 2022 06:33 PM Reporting Lab: [facility] [address] [facility] [address] Performing Lab: [facility] [address] [facility] [address] ALBUMIN 3.0 L 3.5-5.2 May 07, 2022 [facility] COMPREHENSIVE METABOLIC Spec imen Type: PLASMA 06:15 AM PANEL+MG No comment enter ed. Ordering Provid er: GAYLA DOMINGUEZ Report Released Date/Time: May 06, 2022 09:11 PM Reporting Lab: [facility] [address] Performing Lab: [facility] [address] CREATININE 1.2 0.7-1.2 UREA NITROGEN 25 8-26 [...] >60 May 07, 2022 06:[address] [facility] CBC & DIFF Specim en Type: BLOOD Comment: Manual Differential Performed Ordering Provid er: GAYLA DOMINGUEZ Report Released Date/Time: May 06, 2022 09:11 PM Reporting Lab: [facility] [address] Performing Lab: [facility] [address] WBC 20.25 H 4.0-11.0 RBC 3.54 L [...] NORMOCHROMIC May 07, 2022 12:[address] [facility] LACTIC ACID Specim en Type: PLASMA No comment enter ed. Ordering Provid er: GAYLA DOMINGUEZ Report Released Date/Time: May 06, 2022 07:13 PM Reporting Lab: [facility] [address] Performing Lab: [facility] [address] [facility] [address] LACTIC ACID 2.7 H 0.5-2.2 May 06, 2022 10:45 [facility] FINGERSTICK GLUCOSE Speci men Type: BLOOD PM Comment: Mark casillas Nurse Notified Ordering Provid er: GAYLA DOMINGUEZ Report Released Date/Time: May 07, 2022 12:08 AM Reporting Lab: [facility] [address] [facility] [address] Performing Lab: [facility] [address] [facility] [address] FINGERSTICK GLUCOSE 320 H 70-100 May 06, 2022 06:53 [facility] MRSA SURVL NARES Specimen Type: NARES PM DNA No comment enter ed. Ordering Provid er: GAYLA DOMINGUEZ Report Released Date/Time: May 06, 2022 06:33 PM Reporting Lab: [facility] [address] [facility] [address] Performing Lab: [facility] [address] [facility] [address] MRSA SURVL NARES DNA POSITIVE HH Negative May 06, 2022 06:[address] [facility] LACTIC ACID Specim en Type: PLASMA No comment enter ed. Ordering Provid er: GAYLA DOMINGUEZ Report Released Date/Time: May 06, 2022 06:04 PM Reporting Lab: [facility] [address] [facility] [address] Performing Lab: [facility] [address] [facility] [address] LACTIC ACID 3.1 H 0.5-2.2 May 06, 2022 06:51 [facility] CARDIAC TROPONIN I Specim en Type: PLASMA PM No comment enter ed. Ordering Provid er: GAYLA DOMINGUEZ Report Released Date/Time: May 06, 2022 06:05 PM Reporting Lab: [facility] [address] [facility] [address] Performing Lab: [facility] [address] [facility] [address] CARDIAC TROPONIN I <0.028 <0.028 May 06, 2022 06:51 [facility] EXTRA GOLD GEL TUBE Speci men Type: SERUM PM No comment enter ed. Ordering Provid er: GAYLA DOMINGUEZ Report Released Date/Time: May 06, 2022 06:52 PM Reporting Lab: [facility] [address] [facility] [address] Performing Lab: [facility] [address] [facility] [address] EXTRA GOLD GEL TUBE RECEIVED May 06, 2022 06:51 [facility] C-REACTIVE PROTEIN Specim en Type: PLASMA PM No comment enter ed. Ordering Provid er: GAYLA DOMINGUEZ Report Released Date/Time: May 06, 2022 09:29 PM Reporting Lab: [facility] [address] [facility] [address] Performing Lab: [facility] [address] [facility] [address] C-REACTIVE PROTEIN 392.40 H <5.00 May 06, 2022 10:[address] [facility] URINALYSIS Specim en Type: URINE No comment enter ed. Ordering Provid er: MODESTA VILLANUEVA Report Released Date/Time: May 06, 2022 10:11 AM Reporting Lab: [facility] [address] Performing Lab: [facility] [address] [facility] [address] URINE COLOR YELLOW SPECIFIC GRAVITY 1.020 1.003-1.035 [...] 500 NEGATIVE May 06, 2022 10:24 [facility] COVID-19 DIAGNOSTIC Speci men Type: NASOPHARYNGEAL AM PANEL (CEPHEID) Comment: Cephei d GeneXpert (618) Ordering Provid er: MODESTA VILLANUEVA Report Released Date/Time: May 06, 2022 10:11 AM Reporting Lab: [facility] [address] [facility] [address] Performing Lab: [facility] [address] COVID-19 (CEPHEID) Not Detected Not Dete cted May 06, 2022 10:[address] [facility] POC ABG/LACTATE Specim en Type: VENOUS BLOOD No comment enter ed. Ordering Provid er: MODESTA VILLANUEVA Report Released Date/Time: May 06, 2022 10:22 AM Reporting Lab: [facility] [address] [facility] [address] Performing Lab: [facility] [address] [facility] [address] POC PH 7.410 7.31-7.41 POC PCO2 28.9 L 35.00-45.00 POC PO2 82 H 35.0-40.0 POC TCO2 19 L 24.0-29.0 POC HCO3 18.3 L 23.0-28.0 POC BE ECT -6 L -2 POC SO2 96 H 70-75 POC LACTATE 3.62 0.90-1.70 May 06, 2022 10:[address] [facility] PHOSPHORUS Specim en Type: PLASMA No comment enter ed. Ordering Provid er: MODESTA VILLANUEVA Report Released Date/Time: May 06, 2022 10:11 AM Reporting Lab: [facility] [address] [facility] [address] Performing Lab: [facility] [address] [facility] [address] PHOSPHORUS 2.5 2.3-4.7 May 06, 2022 10:00 [facility] ACT PART THROMBO TIME Spe cimen Type: PLASMA AM No comment enter ed. Ordering Provid er: MODESTA VILLANUEVA Report Released Date/Time: May 06, 2022 10:11 AM Reporting Lab: [facility] [address] [facility] [address] Performing Lab: [facility] [address] [facility] [address] APTT 37.8 H 25.1-36.5 May 06, 2022 10:00 [facility] PROTHROMBIN TIME/INR Spec imen Type: PLASMA AM No comment enter ed. Ordering Provid er: MODESTA VILLANUEVA Report Released Date/Time: May 06, 2022 10:11 AM Reporting Lab: [facility] [address] [facility] [address] Performing Lab: [facility] [address] [facility] [address] .INR 2.5 H 0.8-1.1 .PT 29.2 H 9.4-12.5 May 06, 2022 10:00 [facility] CARDIAC TROPONIN I Specim en Type: PLASMA AM Comment: Critic al Value Reported To: BROOKS COTE 05-06-2022 @1053 BY MBImmanuel. Critical value report confirmed. Ordering Provid er: MODESTA VILLANUEVA Report Released Date/Time: May 06, 2022 10:11 AM Reporting Lab: [facility] [address] [facility] [address] Performing Lab: [facility] [address] [facility] [address] CARDIAC TROPONIN I 0.035 HH <0.028 May 06, 2022 10:[address] [facility] PROCALCITONIN Specim en Type: PLASMA No comment enter ed. Ordering Provid er: MODESTA VILLANUEVA Report Released Date/Time: May 06, 2022 10:11 AM Reporting Lab: [facility] [address] [facility] [address] Performing Lab: [facility] [address] [facility] [address] PROCALCITONIN 22.29 H <0.09 May 06, 2022 10:[address] [facility] LIPASE Specim en Type: PLASMA No comment enter ed. Ordering Provid er: MODESTA VILLANUEVA Report Released Date/Time: May 06, 2022 10:11 AM Reporting Lab: [facility] [address] [facility] [address] Performing Lab: [facility] [address] [facility] [address] LIPASE <4 <60 May 06, 2022 10:[address] [facility] CBC & DIFF Specim en Type: BLOOD Comment: Manual Differential Performed Ordering Provid er: MODESTA VILLANUEVA Report Released Date/Time: May 06, 2022 10:11 AM Reporting Lab: [facility] [address] [facility] [address] Performing Lab: [facility] [address] [facility] [address] WBC 18.82 H 4.0-11.0 RBC 3.70 L [...] .RBC MORPHOLOGY PRESENT May 06, 2022 10:00 [facility] EXTRA GOLD GEL TUBE Speci men Type: SERUM AM No comment enter ed. Ordering Provid er: LINNEA RAND Report Released Date/Time: May 06, 2022 10:25 AM Reporting Lab: [facility] [address] [facility] [address] Performing Lab: [facility] [address] [facility] [address] EXTRA GOLD GEL TUBE RECEIVED May 06, 2022 [facility] COMPREHENSIVE METABOLIC Spec imen Type: PLASMA 10:00 AM PANEL+MG Comment: Manual Differential Performed Ordering Provid er: MODESTA VILLANUEVA Report Released Date/Time: May 06, 2022 10:11 AM Reporting Lab: [facility] [address] [facility] [address] Performing Lab: [facility] [address] [facility] [address] CREATININE 1.3 H 0.7-1.2 UREA NITROGEN 25 [...] 54 L >60 May 06, 2022 09:46 [facility] FINGERSTICK GLUCOSE Speci men Type: BLOOD AM Comment: Mark casillas Nurse Notified Ordering Provid er: MODESTA VILLANUEVA Report Released Date/Time: May 06, 2022 09:59 AM Reporting Lab: [facility] [address] [facility] [address] Performing Lab: [facility] [address] [facility] [address] FINGERSTICK GLUCOSE 369 H 70-100 Apr 30, 2022 09:[address] [facility] CBC Specim en Type: BLOOD No comment enter ed. Ordering Provid er: BILL ROONEY Report Released Date/Time: Apr 30, 2022 08:21 AM Reporting Lab: [facility] [address] Performing Lab: [facility] [address] WBC 10.40 4.0-11.0 RBC 3.96 L 4.6-6.2 HGB 12.3 L 13.5-17.9 HCT 37.8 L 41-54 MCV 95.5 80-100 MCH 31.1 27-33 MCHC 32.5 32.0-37.5 PLT 286 150-400 MPV 10.1 7.4-10.4 RDW 14.6 H 11.5-14.5 Apr 30, 2022 [facility] BASIC METABOLIC Specimen Typ e: PLASMA 09:17 AM PANEL+MG No comment enter ed. Ordering Provid er: BILL ROONEY Report Released Date/Time: Apr 30, 2022 08:21 AM Reporting Lab: [facility] [address] Performing Lab: [facility] [address] CREATININE 1.2 0.7-1.2 UREA NITROGEN 26 8-26 [...] Source Pressure Rate Mass Index May 08 [facility]2021 10:37 [facility] May 08 259.7 34 [place] 2021 09:14 lb [facility] May 08 [facility] 2021 05:54 [facility] Social History: Smoking Status (Most current) [...] 09:30 AM VA-TOBACCO NEVER USED [place] [facility] Tobacco Use History This section includes a history of the smoking, or tobacco- related health factors, that were collected on or before the date of the Encounter. The data comes from the [facility] where the Encounter took place. Date/Time Smoking Status/Tobacco Use Comment [facility] Mar 22, 2021 07:45 AM VA-TOBACCO NEVER USED [place] [facility] Oct 02, 2019 10:02 AM VA-TOBACCO NEVER USED [place] [facility] May 21, 2018 09:05 AM PA-TOBACCO NEVER USED [place] [facility] December 25, 2017 06:14 PM INPT NO TOBACCO USE IN LAST [address] [facility] Oct 01, 2017 07:34 AM LIFETIME NON-TOBACCO USER [facility] Sep 28, 2016 08:44 AM LIFETIME NON-TOBACCO USER [facility] Oct 14, 2015 07:52 AM LIFETIME NON-TOBACCO USER [facility] Oct 11, 2014 07:59 AM LIFETIME NON-TOBACCO USER [facility] January 15, 2007 07:55 AM LIFETIME NON-TOBACCO USER [facility] Advance Directives: All historical and current Section Date Range: From patient's date of to the date document was created. This section includes ALL of a patient's completed or amended PA Advance and Rescinded Directives. The entries below indicate that a directive exists for the patient, but an actual copy is not included with this document. The data comes from all [facility]. Date Advance Directives Provider Source Apr 18, 2018 ADVANCE DIRECTIVE LARISSA SIGALA [facility] Apr 18, 2018 ADVANCE DIRECTIVE DISCUSSION LARISSA SIGALA [facility] December 23, 2017 CLINICAL WARNING FARHAT SCHMID [facility] May 11, 2003 ADV[address] BERT [address]ILL[address] [facility] Radiology Reports: +/- 30 days [...] the Encounter. The data comes from all [place] treatment facilities. Date/Time Radiology Report Provider Source May 11, 2022 09:46 CHEST 1 VIEW: SONJA OVALLES [facility] AM LUISANA EDDY [id number] -1935 M Exm Date: MAY 11, 2022@09:46 Req Phys: CODIE LEON Loc: OP Unknown /05-13-2022@05:05 Img Loc: MAIN X-RAY Service: PRIMARY CARE - MED OFFICE (Case [id number] COMPLETE) CHEST 1 VIEW (RAD Detailed) CPT:65319 Proc Modifiers : PORTABLE EXAM Reason for Study: resp distress Clinical History: [place] IS NOT under investigation for COVID-19 or is COVID-19 negative Respiratory distress Responsible provider name and phone number to notify for critical findings if other than u ser placing the order and pager listed below: User placing orde rs pager: [phone] cell LAST CREATININE 1.6 H (05/11/22) Report Status: Verified Date Reported: MAY 11, 2022 Date Verified: MAY 11, 2022 Film Producer E-Sig:/ES/SONJA OVALLES MD Report: CHEST 1 VIEW [...] Primary Interpreting Staff: SONJA OVALLES MD, RADIOLOGIST (Film Producer) /CDC May 10, 2022 03:49 CT HEAD (P): RADIOLOGY,OUTSIDE [facility] PM LUISANA EDDY [id number] -1935 M SERVICE Exm Date: MAY 10, 2022@15:49 Req Phys: CODIE LEON Loc: OP Unknown /05-13-2022@05:05 Img Loc: CT IMAGING Service: PRIMARY CARE - MED OFFICE (Case [id number] COMPLETE) CT HEAD/BRAIN W/O CONTRAST (CT Detailed) CPT:98514 Reason for Study: CHANGE IN MENTAL STATUS Clinical History: CHANGE IN MENTAL STATUS. ORDER ADMINISTRATIVELY ENTERED FOLLOWING SYSTEM OUTAGE. Report Status: Verified Date Reported: MAY 10, 2022 Date Verified: MAY 10, 2022 Film Producer E-Sig: Report: CT HEAD/BRAIN W/O CONTRAST [PRINTSET] HISTORY: Change in mental status. COMPARISON: CT from 05/07/2022. TECHNIQUE: Contiguous axial CT images from the level of the skull base through the skull apex, with coronal and s agittal reformats, performed at the local [place] facility. 321 images were received by the [place] National Teleradiology Program (NTP) for interpretation. RADIATION [...] study. READING PHYSICIAN: Akash Mccoy M.D. -[phone] 05/10/2022 17:35 PDT [facility] National Teleradiology Program [phone] (For Medical Practitioner Use Only ) Attention Patients / Veterans: If you have ques tions or concerns about these test results, please contact your o rdering provider or primary care team. Primary Interpreting Staff: RADIOLOGY,OUTSIDE SERVICE, Staff Physician / May 08, 2022 07:45 CT T-SPINE (P): RADIOLOGY,OUTSIDE [facility] LUISANA EDDY [id number] -1935 M SERVICE Exm Date: MAY 08, 2022@19:45 Req Phys: MALINI,CODIECARMELITA Cornejo Loc: OP Unknown /05-13-2022@05:05 Img Loc: CT IMAGING Service: PRIMARY CARE - MED OFFICE (Case [id number] COMPLETE) CT SPINE THORACIC W/O CONTR AST (CT Detailed) CPT:59358 Reason for Study: mrsa bacteremia, spinal surge ry - r/o abscess or discitis Clinical History: IS NOT under investigation for COVID-19 or is COVID-19 negative Defer to radiologist for final CT protocol. Responsible provider name and phone number to n otify for critical findings if other than user placing the order a nd pager listed below: User placing orders pager: [phone] LAST 3: Collection DT Specimen Test Name [...] GFR (eGF 44 L Ref: >=60 Allergies: (Tresckow only) SIMVASTATIN (Feb 29, 2004) CEPHALEXIN (Mar 01, 2004) Report Status: Verified Date Reported: MAY 08, 2022 Date Verified: MAY 08, 2022 Film Producer E-Sig: Report: CT SPINE THORACIC W/O CONTRAST [PRINTSET] HISTORY:MRSA bacteremia NUMBER OF IMAGES:1151 COMPARISON: Correlation with images from recent CT abdomen and pelvis May 06, 2022 TECHNIQUE: A non contrast CT of the thoracic sp ine [facility] sent to [facility] for interpretation. Axial, coronal and sagittal [...] thoracic level. READING PHYSICIAN: Luisana Webb MD -[phone] 05/08/2022 19:20 PDT [facility] National Teleradiology Program [phone] (For Medical Practitioner Use Only ) Attention Patients / Veterans: If you have ques tions or concerns about these test results, please contact your o [facility] provider or primary care team. Primary Interpreting Staff: RADIOLOGY,OUTSIDE SERVICE, Staff Physician / May 08, 2022 04:48 CHEST 1 VIEW: RADIOLOGY,OUTSIDE [facility] LUISANA EDDY [id number] -1935 M SERVICE Exm Date: MAY 08, 2022@16:48 Req Phys: CODIE LEON Loc: OP Unknown /05-13-2022@05:05 Img Loc: MAIN X-RAY Service: PRIMARY CARE - MED OFFICE (Case [id number] COMPLETE) CHEST 1 VIEW (RAD Detailed) CPT:81970 Proc Modifiers : PORTABLE EXAM Reason for Study: dyspnea Clinical History: [place] IS NOT under investigation for COVID-19 or is COVID-19 negative acute worsening of dyspnea Responsible provider name and phone number to notify for critical findings if other than user placing the order and pager listed below: User placing orders pager: [phone] malini cell [phone] LAST CREATININE 1.1 (05/08/22) Report Status: Verified Date Reported: MAY 08, 2022 Date Verified: MAY 08, 2022 Film Producer E-Sig: Report: CHEST 1 VIEW HISTORY: dyspnea COMPARISON: 05/06/2022 TECHNIQUE: Frontal view(s) of the chest, submit nola to the [place] National Teleradiology Program (NTP) for interp retation. FINDINGS: Reduced lung volumes. Progressive cardiomegaly, and vascular congestion as well as diffuse interstitial prom inence with probable small effusions. Impression: Expiratory exam with findings of CHF and mild e [place]anta READING PHYSICIAN: Nghia Menjivar M.D. -[id number] 10 05/08/2022 18:57 EDT [facility] National Teleradiology Program [phone] (For Medical Practitioner Use Only ) Attention Patients / Veterans: If you have ques tions or concerns about these test results, please contact your o rdering provider or primary care team. Primary Interpreting Staff: RADIOLOGY,OUTSIDE SERVICE, Staff Physician / May 07, 2022 10:29 CT HEAD (P): SHANI POLANCO [facility] LUISANA EDDY [id number] -1935 M Exm Date: MAY 07, 2022@10:29 Req Phys: LUCYBETOWayne Cornejo Loc: OP Unknown/0 05-13-2022@05:05 Img Loc: CT IMAGING Service: PRIMARY CARE - MED OFFICE (Case [id number] COMPLETE) CT HEAD/BRAIN W/O CONTRAST ( CT Detailed) CPT:69433 Reason for Study: seizure noted at [facility] Clinical History: IS NOT under investigation for COVID-19 or is COVID-19 negative Defer to radiologist for final CT protocol. Responsible provider name and phone number to n otify for critical findings if other than user placing the order a nd pager listed below: User placing orders pager: [phone] LAST 3: Collection DT Specimen Test Name [...] GFR (eGF 44 L Ref: >=60 Allergies: (Tresckow only) SIMVASTATIN (Feb 29, 2004) CEPHALEXIN (Mar 01, 2004) Report Status: Verified Date Reported: MAY 07, 2022 Date Verified: MAY 07, 2022 Film Producer E-Sig:/ES/SHANI POLANCO MD Report: EXAM: CT HEAD/BRAIN W/O CONTRAST HISTORY: seizure noted at [facility] Reason for Study: seizure noted at [facility] [place] IS NOT under investigation for COVID-19 or is COVID-19 negative Defer to radiologist for final CT prot ocol. Responsible provider name and phone number to notify for cr itical findings if other than user placing the order and pager lis nola below: User placing orders pager: [phone] LAST 3: Collecti on DT Specimen Test [...] Primary Interpreting Staff: SHANI POLANCO MD, RADIOLOGIST (Film Producer) /Javed May 06, 2022 11:40 CHEST 1 VIEW: RADIOLOGY,OUTSIDE [facility] AM LUISANA EDDY [id number] -1935 M SERVICE Exm Date: MAY 06, 2022@11:40 Req Phys: MODESTA VILLANUEVA Loc: [facility] EMERGENCY DEPT WALK-IN (Re Img Loc: MAIN X-RAY Service: Unknown (Case 73 COMPLETE) CHEST 1 VIEW (RAD Detailed) C PT:26854 Proc Modifiers : PORTABLE EXAM Reason for [...] pager listed below: User placing orders pager: [phone] LAST CREATININE 1.2 (04/30/22) Report Status: Verified Date Reported: MAY 06, 2022 Date Verified: MAY 06, 2022 Film Producer E-Sig: Report: Technique: Frontal chest. No comparison Impression: Cardiac silhouette is mildly enlarged. There is mild pulmonary venous congestion. No definite pleural effusion . No pneumothorax seen. READING PHYSICIAN: Vern Donnelly M.D. -[id number] 07 05/06/2022 13:26 EDT [facility] [employer] Teleradiology Program [phone] (For Medical Practitioner Use Only ) Attention Patients / Veterans: If you have ques tions or concerns about these test results, please contact your o rdering provider or primary care team. Primary Interpreting Staff: RADIOLOGY,OUTSIDE SERVICE, Staff Physician / May 06, 2022 10:36 CT (AP) ABDOMEN/PELVIS (P): RADIOLOGY,OUTSIDE [facility] AM LUISANA EDDY [id number] -1935 M SERVICE Exm Date: MAY 06, 2022@10:36 Req Phys: MODESTA VILLANUEVA Loc: [facility] EMERGENCY DEPT WALK-IN (Re Img Loc: CT IMAGING Service: Unknown (Case 66 COMPLETE) CT (AP) ABDOMEN/PELVIS W CONT RAST(CT Detailed) CPT:43220 Reason for Study: fever, back pain Clinical [...] pager listed below: User placing orders pager: [phone] LAST 3: Collection DT Specimen Test Name [...] ESTIMATED GFR(eGF 44 L Ref: >=60 Allergies: (Tresckow only) SIMVASTATIN (Feb 29, 2004) CEPHALEXIN (Mar 01, 2004) To see allergies from all [facility] locations click Re ports tab>Remote Data>All Available Sites>Clinical Reports>Aller gies. Report Status: Verified Date Reported: MAY 06, 2022 Date Verified: MAY 06, 2022 Film Producer E-Sig: Report: Exam: CT (AP) ABDOMEN/PELVIS W CONTRAST [PRINTS ET] Clinical History: fever, back pain Number of images: 918 Comparison: No priors available Technique: The study was protocoled [facility]vi [facility] of the abdomen and pelvis was performed afte r the uneventful administration of iodinated contrast. Images we re received by the [place] National Teleradiology Program (NTP) for interpretation. Total [...] findings, above. READING PHYSICIAN: Eduin Donaldson M.D. -[phone] 05/06/2022 12:48 [facility] [employer] Teleradiology Program [phone] (For Medical Practitioner Use Only ) Attention Patients / Veterans: If you have ques tions or concerns about these test results, please contact your [facility] provider or primary care team. Primary Interpreting Staff: RADIOLOGY,OUTSIDE SERVICE, Staff Physician / May 06, 2022 10:35 CT HEAD/BRAIN W/O CONTRAST: RADIOLOGY,OUTSIDE [facility] LUISANA EDDY [id number] -1935 M SERVICE Exm Date: MAY 06, 2022@10:35 Req Phys: MODESTA VILLANUEVA Loc: [facility] EMERGENCY DEPT WALK-IN (Re Img Loc: CT IMAGING Service: Unknown (Case 64 COMPLETE) CT HEAD/BRAIN W/O CONTRAST (C T Detailed) CPT:32639 Reason for Study: falls, blood thinner, AMS, se izure Clinical History: falls, blood thinner, AMS, seizure [place] IS under investigation (PUI) for COVID- 19 or is COVID-19+ Defer to radiologist for final CT protocol. Responsible provider name and phone number to n otify for critical findings if other than user placing the order a nd pager listed below: User placing orders pager: [phone] LAST 3: Collection DT Specimen Test Name [...] ESTIMATED GFR(eGF 44 L Ref: >=60 Allergies: (Tresckow only) SIMVASTATIN (Feb 29, 2004) CEPHALEXIN (Mar 01, 2004) To see allergies from all [place] locations click Re ports tab>Remote Data>All Available Sites>Clinical Reports>Aller gies. Report Status: Verified Date Reported: MAY 06, 2022 Date Verified: MAY 06, 2022 Film Producer E-Sig: Report: CT HEAD/BRAIN W/O CONTRAST Clinical History: falls, blood thinner, AMS, se izure Number of Images: 532 Comparison: 03/12/2022 Technique: The study was protocoled and supervi [facility] of the head without contrast. I mages were subsequently received by the [place] National Telera diology Program (NTP) for interpretation. [...] T findings. READING PHYSICIAN: Eduin Donaldson M.D. -[phone] 05/06/2022 12:30 [facility] National Teleradiology Program [phone] (For Medical Practitioner Use Only ) Attention Patients / Veterans: If you have ques tions or concerns about these test results, please contact your o rdering provider or primary care team. Primary Interpreting Staff: RADIOLOGY,OUTSIDE SERVICE, Staff Physician / May 06, 2022 10:35 CT CERVICAL SPINE W/O CONTRAST: RADIOLOGY,OUT SIDE [facility] AM LUISANA EDDY [id number] -1935 M SERVICE Exm Date: MAY 06, 2022@10:35 Req Phys: MODESTA VILLANUEVA Loc: [facility] EMERGENCY DEPT WALK-IN (Re Img Loc: CT IMAGING Service: Unknown (Case 65 COMPLETE) CT CERVICAL SPINE W/O CONTRAS T (CT Detailed) CPT:55357 Reason for Study: falls, blood thinner, AMS, se izure Clinical History: falls, blood thinner, AMS, seizure [place] IS under investigation (PUI) for COVID- 19 or is COVID-19+ Defer to radiologist for final CT protocol. Responsible provider name and phone number to n otify for critical findings if other than user placing the order a nd pager listed below: User placing orders pager: [phone] LAST 3: Collection DT Specimen Test Name [...] ESTIMATED GFR(eGF 44 L Ref: >=60 Allergies: (Tresckow only) SIMVASTATIN (Feb 29, 2004) CEPHALEXIN (Mar 01, 2004) To see allergies from all [facility] locations click Re ports tab>Remote Data>All Available Sites>Clinical Reports>Aller gies. Report Status: Verified Date Reported: MAY 06, 2022 Date Verified: MAY 06, 2022 Film Producer E-Sig: Report: CT CERVICAL SPINE W/O CONTRAST HISTORY:falls, blood thinner, AMS, seizure NUMBER OF IMAGES:770 COMPARISON: None available. TECHNIQUE: A non contrast CT of the cervical sp ine was performed at the local [place]. Images were subsequently sent to [facility] for interpretation. Axial, coronal and sagittal [...] tissues: 11 mm subcutaneous cyst in the [facility] upper neck. Impression: -Motion artifact limits the exam. -Given this limitation, no acute osseous abnorm ality. -Moderate multilevel degenerative change throug hout the cervical spine. -Ancillary findings, above. READING PHYSICIAN: Eduin Donaldson M.D. -[phone] 05/06/2022 12:33 [facility] National Teleradiology Program [phone] (For Medical Practitioner Use Only ) Attention Patients / Veterans: If you have ques tions or concerns about these test results, please contact your [facility] provider or primary care team. Primary Interpreting [...] the Encounter. The data comes from all [place] treatment facilities. Date/Time Pathology Report Provider Source May 09, 2022 05:30 AM LR MICROBIOLOGY REPORT: [facility] Reporting Lab: [facility] [CLIA# [id number] [place] [address] Accession [UID]: [id number] [[id number]] Receiv ed: May 09, 2022@01:35 Collection sample: BLOOD Collection date: Apr 05:30 Provider: CODIE LEON Comment on specimen: LEFT ARM, RECEIVED 2 BLOOD CULTURE BOTTLES Test(s) ordered: CULTURE & SUSCEPTIBILITY...... 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 R TRIMETH/SULFA................. S TETRACYCLINE.................. S CLINDAMYCIN................... S RIFAMPIN...................... S VANCOMYCIN.................... S Bacteriology Remark(s): VANCOMYCIN SHAMIKA: <=0.5 ug/mL THIS REPORT IS FINAL =--=--=--=--=--=--=--=--=--=--=--=--=--= --=--=--=--=--=--=--=--=--=--=--=--=-- Performing Laboratory: Bacteriology Report Performed By: [facility] [CLIA# [id number]] [place] [address] May 08, 2022 03:23 PM LR MICROBIOLOGY REPORT: [facility] Reporting Lab: [facility] [CLIA# [id number] [place] [address] Accession [UID]: [id number] [[id number]] Receiv ed: May 08, 2022@15:41 Collection sample: BLOOD Collection date: Apr 15:23 Provider: CODIE LEON Comment on specimen: LEFT ARM, RECEIVED 2 BLOOD CULTURE BOTTLES Test(s) ordered: CULTURE & SUSCEPTIBILITY...... completed: May 10, 2022 * BACTERIOLOGY FINAL REPORT => May 10, 2022 16:3 1 TECH CODE: [id number] CULTURE RESULTS: GROWTH SAME THAT OF ANOTHER CULTURE Comment: FOR SUSCEPTIBILITY REPORT SEE PREVIOUS POSITIVE SAME MB 22 [id number] ( 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 from Anaerobic bottle ) ( Recovered from Aerobic bottle ) Bacteriology Remark(s): THIS REPORT IS FINAL =--=--=--=--=--=--=--=--=--=--=--=--=--= --=--=--=--=--=--=--=--=--=--=--=--=-- Performing Laboratory: Bacteriology Report Performed By: [facility] [CLIA# [id number]] [place] [address] May 08, 2022 03:21 PM LR MICROBIOLOGY REPORT: [facility] Reporting Lab: [facility] [CLIA# [id number]] [place] [address] Accession [UID]: [id number] [[id number]] Receiv ed: May 08, 2022@15:40 Collection sample: BLOOD Collection date: Apr 15:21 Provider: CODIE LEON Comment on specimen: RT ARM, RECEIVED 2 BLOOD CU LTURE BOTTLES Test(s) ordered: CULTURE & SUSCEPTIBILITY...... completed: May 10, 2022 * BACTERIOLOGY FINAL REPORT => May 10, 2022 16:3 1 TECH CODE: [id number] CULTURE RESULTS: GROWTH SAME THAT OF ANOTHER CULTURE Comment: FOR SUSCEPTIBILITY REPORT SEE PREVIOUS POSITIVE SAME MB 22 [id number] ( 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 from Anaerobic bottle ) ( Recovered from Aerobic bottle ) Bacteriology Remark(s): THIS REPORT IS FINAL =--=--=--=--=--=--=--=--=--=--=--=--=--= --=--=--=--=--=--=--=--=--=--=--=--=-- Performing Laboratory: Bacteriology Report Performed By: [facility] [CLIA# [id number]] [place] [address] May 07, 2022 05:30 AM LR MICROBIOLOGY REPORT: [facility] Reporting Lab: [facility] [CLIA# [id number] [place] [address] Accession [UID]: [id number] [[id number]] Receiv ed: May 07, 2022@01:35 Collection sample: [...] REPORT SEE PREVIOUS POSITIVE SAME MB 22 [id number] ( 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 from Aerobic bottle ) ( Recovered from Anaerobic bottle ) Bacteriology Remark(s): THIS REPORT IS FINAL =--=--=--=--=--=--=--=--=--=--=--=--=--= --=--=--=--=--=--=--=--=--=--=--=--=-- Performing Laboratory: Bacteriology Report Performed By: [facility] [CLIA# [id number]] [place] [address] May 06, 2022 10:51 AM LR MICROBIOLOGY REPORT: [facility] Reporting Lab: [facility] [CLIA# [id number]] [place] [address] Accession [UID]: [id number] [[id number]] Receiv ed: May 06, 2022@11:32 Collection sample: [...] Performing Laboratory: Bacteriology Report Performed By: [facility] [CLIA# [id number]] [place] [address] May 06, 2022 10:34 AM LR MICROBIOLOGY REPORT: [place] [facility] Reporting Lab: [facility] [CLIA# [id number]] [place] [address] Accession [UID]: [id number] [[id number]] Receiv ed: May 06, 2022@10:51 Collection sample: BLOOD Collection date: Apr 10:34 Provider: MODESTA VILLANUEVA Comment on specimen: RECEIVED 2 BLOOD CULTURE MILAN TTLES RAC Test(s) ordered: CULTURE & SUSCEPTIBILITY...... completed: May 07, 2022 * BACTERIOLOGY FINAL REPORT => May 08, 2022 08:3 0 TECH CODE: [id number] CULTURE RESULTS: STAPHYLOCOCCUS AUREUS TYRONEICILL IN RESISTANT (MRSA) Comment: Recovered from Anaerobic [...] Performing Laboratory: Bacteriology Report Performed By: [facility] [CLIA# [id number]] [place] [address] May 06, 2022 10:00 AM LR MICROBIOLOGY REPORT: [place] [facility] Reporting Lab: [facility] [CLIA# [id number] [address] [place] [address] Accession [UID]: [id number] [[id number]] Receiv ed: May 06, 2022@10:41 Collection sample: [...] SUSCEPTIBILITY REPORT SEE PREVIOUS POSITIVE SAME 22 [id number] ( 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 from Anaerobic bottle ) ( Recovered from Aerobic bottle ) Bacteriology Remark(s): THIS REPORT IS FINAL =--=--=--=--=--=--=--=--=--=--=--=--=--= --=--=--=--=--=--=--=--=--=--=--=--=-- Performing Laboratory: Bacteriology Report Performed By: [facility] [CLIA# [id number]] [place] [address] Encounter Notes: All associated encounter notes This section contains the clinical notes associated to the Encounter. Date/Time Encounter Note(s) Provider Source May 08, 2022 07:21 AM NEUROLOGY ATTENDING NOTE: ROSALIA ROSALES [facility] LOCAL TITLE: NEUROLOGY INPT PROGRESS NOTE STANDARD TITLE: NEUROLOGY ATTENDING NOTE DATE OF NOTE: MAY 08, 2022@07:21 ENTRY DATE: MAY 08, 2022@07:21:13 AUTHOR: ROSALIA ROSALES EXP COSIGNER: URGENCY: STATUS: COMPLETED NEUROLOGY INPT PROGRESS NOTE Has ADDENDA * Neurology Inpatient Progress Note ASSESSMENT & RECOMMENDATIONS Luisana Eddy is a an 86-y ear-old with heart disease and CKD 3 who is being seen in for evaluation of fever, bacteremia, severe back pain, and report of seizure-like activity. His neurologic examination i s notable for being more alert, but still with some encephalopathy. He is orient ed and conversant. The remainder of his examination today was somewhat limited by his inability to r elax - but he was diffusely hyperreflexic on initial evaluation 05/07. His UA and bcx have been growing GPCs. H is lower back pain may be due to known spinal fracture. However, wi th his low back pain and the bacteremia, we also are concerned of discitis, abscess, and/or meningiti s. Therefore, we recommend treating with antibiotic s with FORMAL WEAR RENTAL CLERK dosing. Because he is going MRSA in his blood, we think it is reasonable to continue on vancomycin only for now. Please obtain brain and T- spine MRI with and without contrast to evaluate for leptomeningeal enhancement or possi ble epidural abscess. We recommend obtaining this fernando or to performing lumbar puncture in case there is an abscess. Though, we will continue evaluating to determine the need for lumbar puncture and CSF analysis. If lumbar puncture is obtained, recommend CSF analyses for cell counts, protein, glucose, HSV, cultures. With regard to event that was concerning for seizure activity, the description is quite vague and may have represented seizure. Routine EEG showed moderate- severe slowing/encephalopathy, but no lateralizi ng discharges. Given his significant illness, he is a t risk for seizures and we think it is reasonable to start levetiracetam 750 twice daily. #MRSA bacteremia #Lower back pain #Seizure-like activity -Continue vancomycin -Brain/brainstem MRI with and without contrast -MRI T- and L-spine with and without contrast -If brain and T-spine MRI are unremarkable, we w ould consider LP though will continue to evaluate for the utility of this. If LP is pursued, recommend the following CSF studies: cell count, protein, gluc ose, HSV, bacterial culture. -Continue levetiracetam 750mg twice daily #At risk for hospital-acquired delirium -Treat underlying infection, correct metabolic d erangements as able. -Avoid FORM[employer] WE[employer] RENTAL CLERK acting drugs (including opiates, star odiazepines, anti- [...] discussed with the attend ing neurologist, Dr. Haynes. Rosalia Rosales MD Neurology PGY-4 INTERVAL HISTORY Blood cultures positive for GPC, Ucx growing MRS Wayne. He has been afebrile overnight, on scheduled shoaib taminophen. His niece is at bedside and notes that farzana che is more alert and interactive today. He is opening eyes and interacting. Repo rts significant back pain and he wants to drink water. OBJECTIVE VS (last 24-hours via ICIP): Tmax: 97/7 BP [id number] HR 67-101 RR 22-46 O2 sat: 93-97, currently on 2L oxymask General: Well-developed, well-nourished. No acut e distress. [...] . He is oriented to self, location ([place]), and month (April 2022 ). Follows simple commands and complex 2-step commands. Naming intact. Repetition is in tact. Cranial Nerves: Pupils are e qual, round, reactive. EOMI, no nystagmus. Sensation is intact to light touch in the V1-V3 distributi ons. Facial movements are symmetric. Hearing intact to conversation. Mild dysarthria that does not impair the listener's understanding. Shoulder shrug str daisy bilaterally. Tongue protrudes midline. Motor: Mild tremulousness in the upper extremiti es. Animal Control Specialist, elbow flexion and extension, hip flexion, ankle plantarflexion are 5/5 bilaterally. He does not follow the remainder of the motor exam, but all extremities are antigravity and he is resisting movements in all extremities. Reflexes: He has difficulty relaxing for examina tion, but biceps, brachioradialis, patellar reflexes are at least 2+ and symmetric. Unable to relax for clonus evaluation. Toes equivocal. Sensory: Sensation intact to light touch in the upper and lower extremities. Coordination: Unable to assess - does not follow exam. Station/Gait: Deferred. Labs: CMP 05/08/2022: Na 142, K 3.4 , Cl 112, Co2 19, BUN 27, Cr 1.1, Gluc 308, AST 33, ALT 30, Alkphos 98 CBC 05/08/2022: WBC 16.2, Hgb 10.5, Plt 200 Bcx 05/06/2022: GPC, MRSA in 3/4. Bcx 05/07/2022: GPC in 2/2. Ucx 05/06/2022: MRSA. Imaging: Personally reviewed. The radiologist's interpret ation is documented below. Head CT without contrast 05/07/2022: Impression: 1. Mild small vessel ischemia. This is relative ly stable. 2. 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 /ronni/ ROSALIA ROSALES MD NEUROLOGY RESIDENT Signed: 05/08/2022 17:22 Receipt Acknowledged By: 05/09/2022 08:40 /ronni/ JOSIAH HAYNES Physician 05/09/2022 ADDENDUM STATUS: COMPLETED Neurology Addendum by Staff Attending: I have discussed the case with the resident and team. Agree with the above note and assessment and kristen n /ronni/ JOSIAH HAYNES Physician Signed: 05/09/2022 08:41
--- OUTSIDE RECORDS SUMMARY | 2022-05-15 09:35 | XMS_ITS | Encounter Summary ---
:1935 Author Organization [facility] Address [address] [place] [address] Support Name Relationship Address Phone WADE LORENZO Unavailable [id number] [place] [address] WADE LORENZO Unavailable [id number] [place] [address] MARILIA MARSHALLA Unavailable [phone] [place] [address] GOGEORGE, ARACELI Unavailable [phone] [place] [address] Insurance Providers: All historical and current Section [...] Chan [place] M[place] Aug 19, [id number] Kristel EDDY [facility] (WNR) ADVANTAGE (WNR) 2017 8 [id number] [phone] [facility] [place]IC[place] Aug 19, [id number] Kristel EDDY [facility] (WNR) ADVANTAGE (WNR) 2016 8 [id number] [phone] [facility] Selected Encounter This section includes the information on record at [place] for the Encounter. Date/Time Encounter Type Encounter Description Reason Provider Source May 07, 2022 07:31 Inpatient Visit ADMIN PAT ACTIVTIES SYS TEM,CIS-ARK PM (MASNONCT) IHE Encounter Template Text not used by [place] Plan of Treatment: Future Appointments (+ 6 months) and Future Tests (+/- 45 days) The Plan of Treatment section includes future care activities for the patient from [facility] [place] [facility] This section includes future appointments and future orders which are active, pending orscheduled.Future Appointments This section includes appointments that were scheduled to occur 6 months from the date of the Encounter, up to a maximum of 20 appointments. The data comes from all [place] treatment facilities. Appointment Date/Time Appointment Type Appointment Facili ty Name May 11, 2022 06:15 PM AMBULATORY - NONE [facility] Jul 23, 2022 08:00 AM AMBULATORY - NEUROLOGY [facility] Active, Pending, and Scheduled Orders This section includes a listing of several types of active, pending, and scheduled orders, including clinic medications orders, diagnostic test orders, procedure orders and consult orders; where the start date of the order is 45 days before the date of the Encounter or 45 days after the date of the Encounter. The data comes from all [place] treatment [facility]. Test Date/Time Test Type Test Details Facility Name Apr 30, 2022 08:21 Laboratory - Chemistry URINALYSIS URINE WC ON CE [facility] AM Order Apr 30, 2022 08:21 Laboratory - CULTURE & SUSCEPTIBILITY [facility] AM Microbiology Order URINE WC May 06, 2022 12:00 Laboratory - Blood ABO/RH - LAB BLOOD [facility] AM Bank Order May 06, 2022 10:11 Laboratory - Blood TYPE & SCREEN - LAB [facility] AM Bank Order BLOOD WC May 06, 2022 10:27 Pharmacy [facility] AM Medication Order May 06, 2022 10:28 [facility] AM Infusion Order May 06, 2022 10:34 [facility] AM Infusion Order May 06, 2022 10:41 [facility] AM Infusion Order May 06, 2022 12:15 [facility] PM Medication Order May 06, 2022 01:31 [facility] PM Medication Order May 06, 2022 04:49 [facility] PM Medication Order May 07, 2022 01:00 Laboratory - CULTURE & SUSCEPTIBILITY [facility] PM Microbiology Order BLOOD WC ONCE May 11, 2022 09:07 Laboratory - CULTURE & SUSCEPTIBILITY [facility] AM Microbiology Order BLOOD WC May 11, 2022 09:07 Laboratory - CULTURE & SUSCEPTIBILITY [facility] AM Microbiology Order BLOOD WC May 11, 2022 09:38 Laboratory - Chemistry EOSINOPHIL SMEAR,URINE [facility] AM Order URINE WC ONCE May 11, 2022 09:38 Laboratory - Chemistry FENA URINE WC ONCE [facility] AM Order May 11, 2022 09:38 Laboratory - Chemistry URINALYSIS URINE WC ON CE [facility] AM Order Lab Results: +/- 30 days [...] Reference Range Comment May 11, 2022 11:13 [facility] FINGERSTICK GLUCOSE Speci men Type: BLOOD AM Comment: Mark casillas Nurse Notified Ordering Provid er: CODIE LEON Report Released Date/Time: May 11, 2022 11:53 AM Reporting Lab: [facility] [address] [facility] [address] Performing Lab: [facility] [address] FINGERSTICK GLUCOSE 367 H 70-100 May 11, 2022 07:05 [facility] LIVER FUNCTION TESTS Spec imen Type: PLASMA AM No comment enter ed. Ordering Provid er: CODIE LEON Report Released Date/Time: May 11, 2022 09:08 AM Reporting Lab: [facility] [address] Performing Lab: [facility] [address] [address] BILIRUBIN, TOTAL 1.6 H 0.2-1.2 ALKALINE PHOSPHATASE 102 40-150 ALT/SGPT 42 <55 AST/SGOT 30 <34 GAMMA GTP 52 <64 DIR. BILIRUBIN 1.2 H <0.5 May 11, 2022 07:05 [facility] BASIC METABOLIC Specimen Type: PLASMA AM PANEL+MG No comment enter ed. Ordering Provid er: OG DIAL Report Released Date/Time: May 11, 2022 04:46 AM Reporting Lab: [facility] [address] Performing Lab: [facility] [address] CREATININE 1.6 H 0.7-1.2 UREA NITROGEN 28 H 8-26 GLUCOSE 396 H 70-100 SODIUM 150 H 136-145 POTASSIUM 3.7 3.5-5.1 CHLORIDE 120 H 98-107 CO2 23 22-29 CALCIUM 8.4 8.4-10.2 MAGNESIUM 2.1 1.6-2.6 ANION GAP 7 5-15 CREAT EGFR(CKD-EPI) 42 L >60 May 11, 2022 07:05 AM [facility] CK,TOTAL Specim en Type: PLASMA No comment enter ed. Ordering Provid er: CODIE LEON Report Released Date/Time: May 11, 2022 09:08 AM Reporting Lab: [facility] [address] [facility] [address] Performing Lab: [facility] [address] CK,TOTAL 16 L 39-208 May 11, 2022 07:05 AM [facility] BNP Specim en Type: PLASMA No comment enter ed. Ordering Provid er: CODIE LEON Report Released Date/Time: May 11, 2022 09:15 AM Reporting Lab: [facility] [address] [facility] [address] Performing Lab: [facility] [address] BNP 59 <99 May 11, 2022 07:05 AM [facility] CBC Specim en Type: BLOOD No comment enter ed. Ordering Provid er: OG DIAL Report Released Date/Time: May 11, 2022 04:46 AM Reporting Lab: [facility] [address] Performing Lab: [facility] [address] WBC 15.93 H 4.0-11.0 RBC 3.60 L 4.6-6.2 HGB 11.2 L 13.5-17.9 HCT 35.3 L 41-54 MCV 98.1 80-100 MCH 31.1 27-33 MCHC 31.7 L 32.0-37.5 PLT 231 150-400 MPV 11.2 H 7.4-10.4 RDW 15.2 H 11.5-14.5 May 11, 2022 06:14 [facility] FINGERSTICK GLUCOSE Speci men Type: BLOOD AM Comment: Mark casillas Nurse Notified Ordering Provid er: CODIE LEON Report Released Date/Time: May 11, 2022 06:42 AM Reporting Lab: [facility] [address] [facility] [address] Performing Lab: [facility] [address] [facility] [address] FINGERSTICK GLUCOSE 345 H 70-100 May 11, 2022 02:24 [facility] FINGERSTICK GLUCOSE Speci men Type: BLOOD AM Comment: Mark casillas Ordering Provid er: CODIE LEON Report Released Date/Time: May 11, 2022 02:44 AM Reporting Lab: [facility] [address] [facility] [address] Performing Lab: [facility] [address] [facility] [address] FINGERSTICK GLUCOSE 375 H 70-100 May 10, 2022 08:38 [facility] FINGERSTICK GLUCOSE Speci men Type: BLOOD PM Comment: Mark casillas Ordering Provid er: CODIE LEON Report Released Date/Time: May 11, 2022 12:31 AM Reporting Lab: [facility] [address] [facility] [address] Performing Lab: [facility] [address] [facility] [address] FINGERSTICK GLUCOSE 346 H 70-100 May 10, 2022 05:05 [facility] FINGERSTICK GLUCOSE Speci men Type: BLOOD PM Comment: Mark casillas Nurse Notified Ordering Provid er: CODIE LEON Report Released Date/Time: May 10, 2022 11:50 PM Reporting Lab: [facility] [address] [facility] [address] Performing Lab: [facility] [address] [facility] [address] FINGERSTICK GLUCOSE 245 H 70-100 May 10, 2022 02:00 [facility] VANCOMYCIN (TROUGH) Speci men Type: PLASMA PM No comment enter ed. Ordering Provid er: CODIE LEON Report Released Date/Time: May 11, 2022 01:34 AM Reporting Lab: [facility] [address] [facility] [address] Performing Lab: [facility] [address] [facility] [address] VANCOMYCIN (TROUGH) 31.8 H 10.0-15.0 May 10, 2022 [facility] BASIC METABOLIC Specimen Typ e: PLASMA 02:00 PM PANEL+MG No comment enter ed. Ordering Provid er: CODIE LEON Report Released Date/Time: May 11, 2022 01:34 AM Reporting Lab: [facility] [address] Performing Lab: [facility] [address] CREATININE 1.1 .7-1.2 UREA NITROGEN 22 8-26 GLUCOSE 279 H 70-100 SODIUM 150 H 136-145 POTASSIUM 3.2 L 3.5-5.1 CHLORIDE 116 H 98-107 CO2 23 22-29 CALCIUM 8.5 8.4-10.2 MAGNESIUM 2.0 1.6-2.6 ANION GAP 11 5-15 CREAT EGFR(CKD-EPI) 65 >60 May 10, 2022 01:20 PM [facility] CBC & DIFF Specim en Type: BLOOD Comment: Automa nola Differential Performed Ordering Provid er: MD ESTEBAN Report Released Date/Time: May 10, 2022 08:52 PM Reporting Lab: [facility] [address] Performing Lab: [facility] [address] WBC 16.24 H 4.0-11.0 RBC 3.76 L [...] 0.28 H 0-0.1 May 10, 2022 11:07 [facility] FINGERSTICK GLUCOSE Speci men Type: BLOOD AM Comment: Mark casillas Nurse Notified Ordering Provid er: CODIE LEON Report Released Date/Time: May 11, 2022 12:31 AM Reporting Lab: [facility] [address] [facility] [address] Performing Lab: [facility] [address] [facility] [address] FINGERSTICK GLUCOSE 253 H 70-100 May 10, 2022 06:16 [facility] FINGERSTICK GLUCOSE Speci men Type: BLOOD AM Comment: Mark casillas Nurse Notified Ordering Provid er: CODIE LEON Report Released Date/Time: May 10, 2022 11:50 PM Reporting Lab: [facility] [address] [facility] [address] Performing Lab: [facility] [address] [facility] [address] FINGERSTICK GLUCOSE 271 H 70-100 May 09, 2022 09:07 [facility] FINGERSTICK GLUCOSE Speci men Type: BLOOD PM Comment: Mark casillas Ordering Provid er: CODIE LEON Report Released Date/Time: May 10, 2022 11:50 PM Reporting Lab: [facility] [address] [facility] [address] Performing Lab: [facility] [address] [facility] [address] FINGERSTICK GLUCOSE 209 H 70-100 May 09, 2022 05:33 [facility] FINGERSTICK GLUCOSE Speci men Type: BLOOD PM Comment: Mark casillas Nurse Notified Ordering Provid er: CODIE LEON Report Released Date/Time: May 09, 2022 05:53 PM Reporting Lab: [facility] [address] [facility] [address] Performing Lab: [facility] [address] [facility] [address] FINGERSTICK GLUCOSE 251 H 70-100 May 09, 2022 02:09 [facility] VANCOMYCIN (PEAK) Specime n Type: SERUM PM No comment enter ed. Ordering Provid er: AMARIS DE JESUS Report Released Date/Time: May 09, 2022 09:33 AM Reporting Lab: [facility] [address] [facility] [address] Performing Lab: [facility] [address] [facility] [address] VANCOMYCIN (PEAK) 24.2 20.0-40.0 May 09, 2022 11:19 [facility] FINGERSTICK GLUCOSE Speci men Type: BLOOD AM Comment: Mark casillas Nurse Notified Ordering Provid er: CODIE LEON Report Released Date/Time: May 09, 2022 11:38 AM Reporting Lab: [facility] [address] [facility] [address] Performing Lab: [facility] [address] [facility] [address] FINGERSTICK GLUCOSE 240 H 70-100 May 09, 2022 08:13 [facility] VANCOMYCIN (TROUGH) Speci men Type: SERUM AM No comment enter ed. Ordering Provid er: AMARIS DE JESUS Report Released Date/Time: May 08, 2022 11:14 AM Reporting Lab: [facility] [address] Performing Lab: [facility] [address] VANCOMYCIN (TROUGH) 16.1 H 10.0-15.0 May 09, 2022 05:33 AM [facility] CBC & DIFF Specim en Type: BLOOD Comment: Automa nola Differential Performed Ordering Provid er: CODIE LEON Report Released Date/Time: May 08, 2022 05:27 PM Reporting Lab: [facility] [address] [facility] [address] Performing Lab: [facility] [address] WBC 14.92 H 4.0-11.0 RBC 3.41 L [...] GRAN 0.16 H 0-0.1 May 09, 2022 [facility] COMPREHENSIVE METABOLIC Spec imen Type: PLASMA 05:32 AM PANEL+MG No comment enter ed. Ordering Provid er: CODIE LEON Report Released Date/Time: May 08, 2022 05:27 PM Reporting Lab: [facility] [address] [facility] [address] Performing Lab: [facility] [address] [facility] [address] CREATININE 1.2 0.7-1.2 UREA NITROGEN 25 8-26 [...] 59 L >60 May 09, 2022 05:16 [facility] FINGERSTICK GLUCOSE Speci men Type: BLOOD AM Comment: Mark casillas Nurse Notified Ordering Provid er: CODIE LEON Report Released Date/Time: May 09, 2022 07:27 AM Reporting Lab: [facility] [address] [facility] [address] Performing Lab: [facility] [address] FINGERSTICK GLUCOSE 295 H 70-100 May 08, 2022 09:32 PM [facility] EXTRA MINT TUBE Specim en Type: PLASMA No comment enter ed. Ordering Provid er: MD ESTEBAN Report Released Date/Time: May 08, 2022 09:32 PM Reporting Lab: [facility] [address] [facility] [address] Performing Lab: [facility] [address] EXTRA MINT TUBE RECEIVED May 08, 2022 09:32 PM [facility] EXTRA PURPLE TUBE Spec imen Type: BLOOD No comment enter ed. Ordering Provid er: MD ESTEBAN Report Released Date/Time: May 08, 2022 09:32 PM Reporting Lab: [facility] [address] Performing Lab: [facility] [address] [facility] [address] EXTRA PURPLE TUBE RECEIVED May 08, 2022 09:32 [facility] EXTRA GOLD GEL TUBE Speci men Type: SERUM PM No comment enter ed. Ordering Provid er: MD ESTEBAN Report Released Date/Time: May 08, 2022 09:32 PM Reporting Lab: [facility] [address] [facility] [address] Performing Lab: [facility] [address] [facility] [address] EXTRA GOLD GEL TUBE RECEIVED May 08, 2022 09:32 PM [facility] EXTRA BLUE TUBE Specim en Type: PLASMA No comment enter ed. Ordering Provid er: MD ESTEBAN Report Released Date/Time: May 08, 2022 09:32 PM Reporting Lab: [facility] [address] [facility] [address] Performing Lab: [facility] [address] [facility] [address] EXTRA BLUE TUBE RECEIVED May 08, 2022 09:32 PM [facility] EXTRA BRASWELL TUBE Specim en Type: PLASMA No comment enter ed. Ordering Provid er: MD ESTEBAN Report Released Date/Time: May 08, 2022 09:37 PM Reporting Lab: [facility] [address] [facility] [address] Performing Lab: [facility] [address] [facility] [address] EXTRA BRASWELL TUBE RECEIVED May 08, 2022 09:32 PM [facility] LACTIC ACID Specim en Type: PLASMA No comment enter ed. Ordering Provid er: OG DIAL Report Released Date/Time: May 08, 2022 09:49 PM Reporting Lab: [facility] [address] [facility] [address] Performing Lab: [facility] [address] [facility] [address] LACTIC ACID 2.5 H 0.5-2.2 May 08, 2022 09:32 PM [facility] BNP Specim en Type: PLASMA No comment enter ed. Ordering Provid er: OG DIAL Report Released Date/Time: May 08, 2022 09:50 PM Reporting Lab: [facility] [address] [facility] [address] Performing Lab: [facility] [address] [facility] [address] BNP 897 H <99 May 08, 2022 09:32 PM [facility] CBC Specim en Type: BLOOD No comment enter ed. Ordering Provid er: OG DIAL Report Released Date/Time: May 08, 2022 09:50 PM Reporting Lab: [facility] [address] Performing Lab: [facility] [address] WBC 18.54 H 4.0-11.0 RBC 3.68 L 4.6-6.2 HGB 11.5 L 13.5-17.9 HCT 35.1 L 41-54 MCV 95.4 80-100 MCH 31.3 27-33 MCHC 32.8 32.0-37.5 PLT 221 150-400 MPV 11.1 H 7.4-10.4 RDW 14.9 H 11.5-14.5 May 08, 2022 09:32 PM [facility] BLOOD GASES Specim en Type: VENOUS BLOOD Comment: O2 THE RAPY = 3L PM Ordering Provid er: OG DIAL Report Released Date/Time: May 08, 2022 09:50 PM Reporting Lab: [facility] [address] Performing Lab: [facility] [address] PH 7.36 7.33-7.43 PCO2 47 41-51 BICARBONATE 24.4 21.0-30.0 PO2 31 L 35-40 OXYGEN SATURATION 54.7 L 70.0-75.0 PH(TEMP CORRECTED) 7.37 7.33-7.43 PCO2(TEMP CORRECTED) 46 41-51 PO2(TEMP CORRECTED) 31 L 35-40 PATIENT TEMPERATURE 36.7 May 08, 2022 [facility] COMPREHENSIVE METABOLIC Spec imen Type: PLASMA 09:32 PM PANEL+MG No comment enter ed. Ordering Provid er: OG DIAL Report Released Date/Time: May 08, 2022 09:50 PM Reporting Lab: [facility] [address] Performing Lab: [facility] [address] CREATININE 1.3 H 0.7-1.2 UREA NITROGEN 26 [...] 54 L >60 May 08, 2022 08:27 [facility] FINGERSTICK GLUCOSE Speci men Type: BLOOD PM Comment: Mrak casillas Nurse Notified Ordering Provid er: CODIE LEON Report Released Date/Time: May 08, 2022 08:55 PM Reporting Lab: [facility] [address] [facility] [address] Performing Lab: [facility] [address] [facility] [address] FINGERSTICK GLUCOSE 272 H 70-100 May 08, 2022 06:56 [facility] FINGERSTICK GLUCOSE Speci men Type: BLOOD PM Comment: Mark casillas Ordering Provid er: CODIE LEON Report Released Date/Time: May 08, 2022 07:08 PM Reporting Lab: [facility] [address] [facility] [address] Performing Lab: [facility] [address] [facility] [address] FINGERSTICK GLUCOSE 262 H 70-100 May 08, 2022 04:50 [facility] FINGERSTICK GLUCOSE Speci men Type: BLOOD PM Comment: Nurse Notified Ordering Provid er: CODIE LEON Report Released Date/Time: May 08, 2022 05:14 PM Reporting Lab: [facility] [address] [facility] [address] Performing Lab: [facility] [address] [facility] [address] FINGERSTICK GLUCOSE 330 H 70-100 May 08, 2022 11:21 [facility] FINGERSTICK GLUCOSE Speci men Type: BLOOD AM Comment: Mark casillas Nurse Notified Ordering Provid er: CODIE LEON Report Released Date/Time: May 08, 2022 11:51 AM Reporting Lab: [facility] [address] [facility] [address] Performing Lab: [facility] [address] [facility] [address] FINGERSTICK GLUCOSE 231 H 70-100 May 08, 2022 07:25 AM [facility] CBC & DIFF Specim en Type: BLOOD Comment: Automa nola Differential Performed Ordering Provid er: BETO AYALA Report Released Date/Time: May 07, 2022 12:28 PM Reporting Lab: [facility] [address] [facility] [address] Performing Lab: [facility] [address] [facility] [address] WBC 16.29 H 4.0-11.0 RBC 3.38 L [...] GRAN 0.26 H 0-0.1 May 08, 2022 [facility] PROTHROMBIN TIME/INR Specime n Type: PLASMA 07:25 AM No comment enter ed. Ordering Provid er: BETO AYALA Report Released Date/Time: May 07, 2022 12:28 PM Reporting Lab: [facility] [address] [facility] [address] Performing Lab: [facility] [address] .INR 1.2 H 0.8-1.1 .PT 14.2 H 9.4-12.5 May 08, 2022 [facility] COMPREHENSIVE METABOLIC Spec imen Type: PLASMA 07:25 AM PANEL+MG No comment enter ed. Ordering Provid er: BETO AYALA Report Released Date/Time: May 07, 2022 12:28 PM Reporting Lab: [facility] [address] [facility] [address] Performing Lab: [facility] [address] CREATININE 1.1 0.7-1.2 UREA NITROGEN 27 H [...] EGFR(CKD-EPI) 65 >60 May 08, 2022 06:53 [facility] FINGERSTICK GLUCOSE Speci men Type: BLOOD AM Comment: Mark casillas Ordering Provid er: CODIE LEON Report Released Date/Time: May 08, 2022 07:18 AM Reporting Lab: [facility] [address] [facility] [address] Performing Lab: [facility] [address] [facility] [address] FINGERSTICK GLUCOSE 276 H 70-100 May 07, 2022 08:36 [facility] FINGERSTICK GLUCOSE Speci men Type: BLOOD PM Comment: Nurse Notified Ordering Provid er: CODIE LEON Report Released Date/Time: May 08, 2022 12:29 AM Reporting Lab: [facility] [address] [facility] [id number] Performing Lab: [facility] [address] [facility] [id number] FINGERSTICK GLUCOSE 282 H 70-100 May 07, 2022 07:04 PM [facility] LACTIC ACID Specim en Type: PLASMA No comment enter ed. Ordering Provid er: BETO AYALA Report Released Date/Time: May 07, 2022 06:28 PM Reporting Lab: [facility] [address] [facility] [id number] Performing Lab: [facility] [address] [facility] [id number] LACTIC ACID 2.0 0.5-2.2 May 07, 2022 04:46 [facility] FINGERSTICK GLUCOSE Speci men Type: BLOOD PM Comment: Nurse Notified Ordering Provid er: BETO AYALA Report Released Date/Time: May 07, 2022 05:00 PM Reporting Lab: [facility] [address] [facility] [address] Performing Lab: [facility] [address] [facility] [address] FINGERSTICK GLUCOSE 274 H 70-100 May 07, 2022 12:47 [facility] FINGERSTICK GLUCOSE Speci men Type: BLOOD PM Comment: Mark casillas Nurse Notified Ordering Provid er: BETO AYALA Report Released Date/Time: May 07, 2022 05:32 PM Reporting Lab: [facility] [address] [facility] [address] Performing Lab: [facility] [address] [facility] [address] FINGERSTICK GLUCOSE 309 H 70-100 May 07, 2022 06:35 [facility] FINGERSTICK GLUCOSE Speci men Type: BLOOD AM Comment: Mark casillas Nurse Notified Ordering Provid er: GAYLA DOMINGUEZ Report Released Date/Time: May 07, 2022 06:46 AM Reporting Lab: [facility] [address] [facility] [address] Performing Lab: [facility] [address] [facility] [address] FINGERSTICK GLUCOSE 352 H 70-100 May 07, 2022 06:15 AM [facility] ALBUMIN Specim en Type: PLASMA No comment enter ed. Ordering Provid er: GAYLA DOMINGUEZ Report Released Date/Time: May 06, 2022 06:33 PM Reporting Lab: [facility] [address] [facility] [address] Performing Lab: [facility] [address] [facility] [address] ALBUMIN 3.0 L 3.5-5.2 May 07, 2022 [facility] COMPREHENSIVE METABOLIC Spec imen Type: PLASMA 06:15 AM PANEL+MG No comment enter ed. Ordering Provid er: GAYLA DOMINGUEZ Report Released Date/Time: May 06, 2022 09:11 PM Reporting Lab: [facility] [address] [facility] [address] Performing Lab: [facility] [address] [facility] [address] CREATININE 1.2 0.7-1.2 UREA NITROGEN 25 8-26 [...] L >60 May 07, 2022 06:15 AM [facility] CBC & DIFF Specim en Type: BLOOD Comment: Manual Differential Performed Ordering Provid er: GAYLA DOMINGUEZ Report Released Date/Time: May 06, 2022 09:11 PM Reporting Lab: [facility] [address] Performing Lab: [facility] [address] WBC 20.25 H 4.0-11.0 RBC 3.54 L [...] NORMOCYTIC, NORMOCHROMIC May 07, 2022 12:19 AM [facility] LACTIC ACID Specim en Type: PLASMA No comment enter ed. Ordering Provid er: GAYLA DOMINGUEZ Report Released Date/Time: May 06, 2022 07:13 PM Reporting Lab: [facility] [address] Performing Lab: [facility] [address] LACTIC ACID 2.7 H 0.5-2.2 May 06, 2022 10:45 [facility] FINGERSTICK GLUCOSE Speci men Type: BLOOD PM Comment: Save R esult Nurse Notified Ordering Provid er: GAYLA DOMINGUEZ Report Released Date/Time: May 07, 2022 12:08 AM Reporting Lab: [facility] [address] [facility] [address] Performing Lab: [facility] [address] [facility] [address] FINGERSTICK GLUCOSE 320 H 70-100 May 06, 2022 06:53 [facility] MRSA SURVL NARES Specimen Type: NARES PM DNA No comment enter ed. Ordering Provid er: GAYLA DOMINGUEZ Report Released Date/Time: May 06, 2022 06:33 PM Reporting Lab: [facility] [address] [facility] [address] Performing Lab: [facility] [address] [facility] [address] MRSA SURVL NARES DNA POSITIVE HH Negative May 06, 2022 06:51 PM [facility] LACTIC ACID Specim en Type: PLASMA No comment enter ed. Ordering Provid er: GAYLA DOMINGUEZ Report Released Date/Time: May 06, 2022 06:04 PM Reporting Lab: [facility] [address] [facility] [address] Performing Lab: [facility] [address] [facility] [address] LACTIC ACID 3.1 H 0.5-2.2 May 06, 2022 06:51 [facility] CARDIAC TROPONIN I Specim en Type: PLASMA PM No comment enter ed. Ordering Provid er: GAYLA DOMINGUEZ Report Released Date/Time: May 06, 2022 06:05 PM Reporting Lab: [facility] [address] [facility] [address] Performing Lab: [facility] [address] [facility] [address] CARDIAC TROPONIN I <0.028 <0.028 May 06, 2022 06:51 [facility] EXTRA GOLD GEL TUBE Speci men Type: SERUM PM No comment enter ed. Ordering Provid er: GAYLA DOMINGUEZ Report Released Date/Time: May 06, 2022 06:52 PM Reporting Lab: [facility] [address] [facility] [address] Performing Lab: [facility] [address] [facility] [address] EXTRA GOLD GEL TUBE RECEIVED May 06, 2022 06:51 [facility] C-REACTIVE PROTEIN Specim en Type: PLASMA PM No comment enter ed. Ordering Provid er: GAYLA DOMINGUEZ Report Released Date/Time: May 06, 2022 09:29 PM Reporting Lab: [facility] [address] Performing Lab: [facility] [address] C-REACTIVE PROTEIN 392.40 H <5.00 May 06, 2022 10:51 AM [facility] URINALYSIS Specim en Type: URINE No comment enter ed. Ordering Provid er: MODESTA VILLANUEVA Report Released Date/Time: May 06, 2022 10:11 AM Reporting Lab: [facility] [address] Performing Lab: [facility] [address] URINE COLOR YELLOW SPECIFIC GRAVITY 1.020 1.003-1.035 [...] ESTERASE 500 NEGATIVE May 06, 2022 10:24 [facility] COVID-19 DIAGNOSTIC Speci men Type: NASOPHARYNGEAL AM PANEL (CEPHEID) Comment: Cephei d GeneXpert (618) Ordering Provid er: MODESTA VILLANUEVA Report Released Date/Time: May 06, 2022 10:11 AM Reporting Lab: [facility] [address] Performing Lab: [facility] [address] COVID-19 (CEPHEID) Not Detected Not Dete cted May 06, 2022 10:20 AM [facility] POC ABG/LACTATE Specim en Type: VENOUS BLOOD No comment enter ed. Ordering Provid er: MODESTA VILLANUEVA Report Released Date/Time: May 06, 2022 10:22 AM Reporting Lab: [facility] [address] Performing Lab: [facility] [address] POC PH 7.410 7.31-7.41 POC PCO2 28.9 L 35.00-45.00 POC PO2 82 H 35.0-40.0 POC TCO2 19 L 24.0-29.0 POC HCO3 18.3 L 23.0-28.0 POC BE ECT -6 L -2 POC SO2 96 H 70-75 POC LACTATE 3.62 0.90-1.70 May 06, 2022 10:00 [facility] ACT PART THROMBO TIME Spe cimen Type: PLASMA AM No comment enter ed. Ordering Provid er: MODESTA VILLANUEVA Report Released Date/Time: May 06, 2022 10:11 AM Reporting Lab: [facility] [address] [facility] [address] Performing Lab: [facility] [address] [facility] [address] APTT 37.8 H 25.1-36.5 May 06, 2022 10:00 AM [facility] PHOSPHORUS Specim en Type: PLASMA No comment enter ed. Ordering Provid er: MODESTA VILLANUEVA Report Released Date/Time: May 06, 2022 10:11 AM Reporting Lab: [facility] [address] [facility] [address] Performing Lab: [facility] [address] [facility] [address] PHOSPHORUS 2.5 2.3-4.7 May 06, 2022 10:00 [facility] PROTHROMBIN TIME/INR Spec imen Type: PLASMA AM No comment enter ed. Ordering Provid er: MODESTA VILLANUEVA Report Released Date/Time: May 06, 2022 10:11 AM Reporting Lab: [facility] [address] [facility] [address] Performing Lab: [facility] [address] [facility] [address] .INR 2.5 H 0.8-1.1 .PT 29.2 H 9.4-12.5 May 06, 2022 10:00 [facility] CARDIAC TROPONIN I Specim en Type: PLASMA AM Comment: Critic al Value Reported To: BROOKS COTE 05-06-2022 @1053 BY MBB. Critical value report confirmed. Ordering Provid er: MODESTA VILLANUEVA Report Released Date/Time: May 06, 2022 10:11 AM Reporting Lab: [facility] [address] [facility] [address] Performing Lab: [facility] [address] [facility] [address] CARDIAC TROPONIN I 0.035 HH <0.028 May 06, 2022 10:00 AM [facility] PROCALCITONIN Specim en Type: PLASMA No comment enter ed. Ordering Provid er: MODESTA VILLANUEVA Report Released Date/Time: May 06, 2022 10:11 AM Reporting Lab: [facility] [address] [facility] [address] Performing Lab: [facility] [address] [facility] [address] PROCALCITONIN 22.29 H <0.09 May 06, 2022 10:00 AM [facility] LIPASE Specim en Type: PLASMA No comment enter ed. Ordering Provid er: MODESTA VILLANUEVA Report Released Date/Time: May 06, 2022 10:11 AM Reporting Lab: [facility] [address] [facility] [address] Performing Lab: [facility] [address] [facility] [address] LIPASE <4 <60 May 06, 2022 [facility] COMPREHENSIVE METABOLIC Spec imen Type: PLASMA 10:00 AM PANEL+MG Comment: Manual Differential Performed Ordering Provid er: MODESTA VILLANUEVA Report Released Date/Time: May 06, 2022 10:11 AM Reporting Lab: [facility] [address] [facility] [address] Performing Lab: [facility] [address] [facility] [address] CREATININE 1.3 H 0.7-1.2 UREA NITROGEN 25 [...] 54 L >60 May 06, 2022 10:00 [facility] EXTRA GOLD GEL TUBE Speci men Type: SERUM AM No comment enter ed. Ordering Provid er: LINNEA RAND Report Released Date/Time: May 06, 2022 10:25 AM Reporting Lab: [facility] [address] [facility] [address] Performing Lab: [facility] [address] [facility] [address] EXTRA GOLD GEL TUBE RECEIVED May 06, 2022 10:00 AM [facility] CBC & DIFF Specim en Type: BLOOD Comment: Manual Differential Performed Ordering Provid er: MODESTA VILLANUEVA Report Released Date/Time: May 06, 2022 10:11 AM Reporting Lab: [facility] [address] [facility] [address] Performing Lab: [facility] [address] WBC 18.82 H 4.0-11.0 RBC 3.70 L [...] .RBC MORPHOLOGY PRESENT May 06, 2022 09:46 [facility] FINGERSTICK GLUCOSE Speci men Type: BLOOD AM Comment: Mark casillas Nurse Notified Ordering Provid er: MODESTA VILLANUEVA Report Released Date/Time: May 06, 2022 09:59 AM Reporting Lab: [facility] [address] [facility] [address] Performing Lab: [facility] [address] FINGERSTICK GLUCOSE 369 H 70-100 Apr 30, 2022 09:17 AM [facility] CBC Specim en Type: BLOOD No comment enter ed. Ordering Provid er: BILL ROONEY Report Released Date/Time: Apr 30, 2022 08:21 AM Reporting Lab: [facility] [address] Performing Lab: [facility] [address] WBC 10.40 4.0-11.0 RBC 3.96 L 4.6-6.2 HGB 12.3 L 13.5-17.9 HCT 37.8 L 41-54 MCV 95.5 80-100 MCH 31.1 27-33 MCHC 32.5 32.0-37.5 PLT 286 150-400 MPV 10.1 7.4-10.4 RDW 14.6 H 11.5-14.5 Apr 30, 2022 [facility] BASIC METABOLIC Specimen Typ e: PLASMA 09:17 AM PANEL+MG No comment enter ed. Ordering Provid er: BILL ROONEY Report Released Date/Time: Apr 30, 2022 08:21 AM Reporting Lab: [facility] [address] Performing Lab: [facility] [address] CREATININE 1.2 0.7-1.2 UREA NITROGEN 26 8-26 [...] Rate Mass Index May 07 [facility] 2021 12:14 [facility] May 07 [facility] 2021 04:56 [facility] AM [facility] May 07 [facility] 2021 03:23 [facility] May 07 266.76 35 [facility] 2021 12:15 lb [facility] Social History: Smoking Status (Most current) and [...] 09:30 AM [place]-TOBACCO NEVER USED [facility] Tobacco Use History This section includes a history of the smoking, or tobacco- related health factors, that were collected on or before the date of the Encounter. The data comes from the [facility] where the Encounter took place. Date/Time Smoking Status/Tobacco Use Comment Xavi chanel Mar 22, 2021 07:45 AM [place]-TOBAC[place] NEVER USED [facility] [facility] [facility] Oct 02, 2019 10:02 AM VA-TOBACCO NEVER USED [facility] [facility] [facility] May 21, 2018 09:05 AM VA-TOBACCO NEVER USED [facility] [facility] [facility] December 25, 2017 06:14 PM INPT NO TOBACCO USE IN LAST 30 DAYS [facility] Oct 01, 2017 07:34 AM LIFETIME NON-TOBACCO USER [facility] Sep 28, 2016 08:44 AM LIFETIME NON-TOBACCO USER [facility] Oct 14, 2015 07:52 AM LIFETIME NON-TOBACCO USER [facility] Oct 11, 2014 07:59 AM LIFETIME NON-TOBACCO USER [facility] January 15, 2007 07:55 AM LIFETIME NON-TOBACCO USER [facility] Advance Directives: All historical and current Section Date Range: From patient's date of to the date document was created. This section includes ALL of a patient's completed or amended [place] Advance and Rescinded Directives. The entries below indicate that a directive exists for the patient, but an actual copy is not included with this document. The data comes from all [facility]. Date Advance Directives Provider Source Apr 18, 2018 ADVANCE DIRECTIVE LARISSA SIGALA [facility] Apr 18, 2018 ADVANCE DIRECTIVE DISCUSSION RAE SIGALAN [facility] December 23, 2017 CLINICAL WARNING FARHAT SCHMID [facility] May 11, 2003 ADVANCE DIRECTIVE BERT CASILLAS [facility] Radiology Reports: +/- 30 days of the [...] 2022 09:46 CHEST 1 VIEW: SONJA OVALLES [facility] LUISANA EDDY [id number] -1935 M Exm Date: MAY 11, 2022@09:46 Req Phys: CODIE LEON Loc: OP Unknown /05-13-2022@05:05 Img Loc: MAIN X-RAY Service: PRIMARY CARE - [facility] OFFICE (Case [id number] COMPLETE) CHEST 1 VIEW (RAD Detailed) CPT:28177 Proc Modifiers : PORTABLE EXAM Reason for [...] 11, 2022 Date Verified: MAY 11, 2022 [employer] Teacher E-Sig:/ES/SONJA OVALLES MD Report: CHEST 1 VIEW [...] Primary Interpreting Staff: SONJA OVALLES MD, RADIOLOGIST (Autom[employer] Service Management Teacher) /CDC May 10, 2022 03:49 CT HEAD (P): RADIOLOGY,OUTSIDE [facility] PM LUISANA EDDY [id number] -1935 M SERVICE Exm Date: MAY 10, 2022@15:49 Req Phys: CODEI LEON Loc: OP Unknown /05-13-2022@05:05 Img Loc: CT IMAGING Service: PRIMARY CARE - MED OFFICE (Case [id number] COMPLETE) CT HEAD/BRAIN W/O CONTRAST (CT Detailed) CPT:61486 Reason for Study: CHANGE IN MENTAL STATUS Clinical History: CHANGE IN MENTAL STATUS. ORDER ADMINISTRATIVELY ENTERED FOLLOWING SYSTEM OUTAGE. Report Status: Verified Date Reported: MAY 10, 2022 Date Verified: MAY 10, 2022 [employer] Teacher E-Sig: Report: CT HEAD/BRAIN W/O CONTRAST [PRINTSET] [...] study. READING PHYSICIAN: Akash Mccoy M.D. -[phone] 05/10/2022 17:35 PDT [facility] National Teleradiology Program [phone] (For Medical Practitioner Use Only ) Attention Patients / Veterans: If you have ques tions or concerns about these test results, please contact your [facility] provider or primary care team. Primary Interpreting Staff: RADIOLOGY,OUTSIDE SERVICE, Staff Physician / May 08, 2022 07:45 CT T-SPINE (P): RADIOLOGY,OUTSIDE [facility] LUISANA EDDY [id number] -1935 M SERVICE Exm Date: MAY 08, 2022@19:45 Req Phys: CODIE LEON Loc: OP Unknown /05-13-2022@05:05 Img Loc: CT IMAGING Service: PRIMARY CARE - MED OFFICE (Case [id number] COMPLETE) CT SPINE THORACIC W/O CONTR AST (CT Detailed) CPT:11652 Reason for Study: mrsa bacteremia, spinal surge ry - r/o abscess or discitis Clinical History: IS NOT under investigation for COVID-19 or is COVID-19 negative Defer to radiologist for final CT protocol. Responsible provider name and phone number to n otify for critical findings if other than user placing the order a nd pager listed below: User placing orders pager: [phone] LAST 3: Collection DT Specimen Test Name [...] GFR (eGF 44 L Ref: >=60 Allergies: ([place] only) SIMVASTATIN (Feb 29, 2004) CEPHALEXIN (Mar 01, 2004) Report Status: Verified Date Reported: MAY 08, 2022 Date Verified: MAY 08, 2022 [employer] Teacher E-Sig: Report: CT SPINE THORACIC W/O CONTRAST [PRINTSET] HISTORY:MRSA bacteremia NUMBER OF IMAGES:1151 COMPARISON: Correlation with images from recent CT abdomen and pelvis May 06, 2022 TECHNIQUE: A non contrast CT of the thoracic sp ine was performed at the local [place]. Images were subsequently sent to [facility] [...] thoracic level. READING PHYSICIAN: Luisana Webb MD -[id number] [phone] 05/08/2022 19:20 PDT [facility] [employer] [facility] Teleradiology Program [phone] (For Medical Practitioner Use Only ) Attention Patients / Veterans: If you have ques tions or concerns about these test results, please contact your o [facility] provider or primary care team. Primary Interpreting Staff: RADIOLOGY,OUTSIDE SERVICE, Staff Physician / May 08, 2022 04:48 CHEST 1 VIEW: RADIOLOGY,OUTSIDE [facility] LUISANA EDDY [id number] -1935 M SERVICE Exm Date: MAY 08, 2022@16:48 Req Phys: CODIE LEON Loc: OP Unknown /05-13-2022@05:05 Img Loc: MAIN X-RAY Service: PRIMARY CARE - MED OFFICE (Case [id number] COMPLETE) CHEST 1 VIEW (RAD Detailed) CPT:04225 Proc Modifiers : PORTABLE EXAM Reason for Study: dyspnea Clinical History: [place] IS NOT under investigation for COVID-19 or is COVID-19 negative acute worsening of dyspnea Responsible provider name and phone number to notify for critical findings if other than user placing the order and pager listed below: User placing orders pager: [phone] malini cell [phone] LAST CREATININE 1.1 (05/08/22) Report Status: Verified Date Reported: MAY 08, 2022 Date Verified: MAY 08, 2022 [employer] Teacher E-Sig: Report: CHEST 1 VIEW HISTORY: dyspnea COMPARISON: 05/06/2022 TECHNIQUE: Frontal view(s) of the chest, submit nola to the [place] National Teleradiology Program (NTP) for interp retation. FINDINGS: Reduced lung volumes. Progressive cardiomegaly, and vascular congestion as well as diffuse interstitial prom inence with probable small effusions. Impression: Expiratory exam with findings of CHF and mild e santa READING PHYSICIAN: Nghia Menjivar M.D. -[id number] [phone] 05/08/2022 18:57 EDT [facility] [employer] [facility] Teleradiology Program [phone] (For Medical Practitioner Use Only ) Attention Patients / Veterans: If you have ques tions or concerns about these test results, please contact your o rdering provider or primary care team. Primary Interpreting Staff: RADIOLOGY,OUTSIDE SERVICE, Staff Physician / May 07, 2022 10:29 CT HEAD (P): SHANI POLANCO [facility] AM LUISANA EDDY [id number] -1935 M Exm Date: MAY 07, 2022@10:29 Req Phys: LUCY,BETOWayne Cornejo Loc: OP Unknown/0 05-13-2022@05:05 Img Loc: CT IMAGING Service: PRIMARY CARE - MED OFFICE (Case [id number] COMPLETE) CT HEAD/BRAIN W/O CONTRAST ( CT Detailed) CPT:38283 Reason for Study: seizure noted at [facility] Clinical History: [place] IS NOT under investigation for COVID-19 or is COVID-19 negative Defer to radiologist for final CT protocol. Responsible provider name and phone number to n otify for critical findings if other than user placing the order a nd pager listed below: User placing orders pager: [phone] LAST 3: Collection DT Specimen Test Name [...] GFR (eGF 44 L Ref: >=60 Allergies: ([place] only) SIMVASTATIN (Feb 29, 2004) CEPHALEXIN (Mar 01, 2004) Report Status: Verified Date Reported: MAY 07, 2022 Date Verified: MAY 07, 2022 [employer] Teacher E-Sig:/ES/SHANI POLANCO MD Report: EXAM: CT HEAD/BRAIN W/O CONTRAST HISTORY: seizure noted at [facility] Reason for Study: seizure noted at [facility] [place] IS NOT under investigation for COVID-19 or is COVID-19 negative Defer to radiologist for final CT prot ocol. Responsible provider name and phone number to notify for cr itical findings if other than user placing the order and pager lis nola below: User placing orders pager: [phone] LAST 3: Collecti on DT Specimen Test [...] Primary Interpreting Staff: SHANI POLANCO MD, RADIOLOGIST (Autom[employer] Service Management Teacher) /Javed May 06, 2022 11:40 CHEST 1 VIEW: RADIOLOGY,OUTSIDE [facility] LUISANA EDDY [id number] -1935 M SERVICE Exm Date: MAY 06, 2022@11:40 Req Phys: MODESTA VILLANUEVA Loc: [facility] EMERGENCY DEPT WALK-IN (Re Img Loc: MAIN X-RAY Service: Unknown (Case [id number] COMPLETE) CHEST 1 VIEW (RAD Detailed) C PT:57769 Proc Modifiers : PORTABLE EXAM Reason for [...] pager listed below: User placing orders pager: [phone] LAST CREATININE 1.2 (04/30/22) Report Status: Verified Date Reported: MAY 06, 2022 Date Verified: MAY 06, 2022 [employer] Teacher E-Sig: Report: Technique: Frontal chest. No comparison Impression: Cardiac silhouette is mildly enlarged. There is mild pulmonary venous congestion. No definite pleural effusion . No pneumothorax seen. READING PHYSICIAN: Vern Donnelly M.D. -[id number] 07 05/06/2022 13:26 EDT [facility] National Teleradiology Program [phone] (For Medical Practitioner Use Only ) Attention Patients / Veterans: If you have ques tions or concerns about these test results, please contact your o rdering provider or primary care team. Primary Interpreting Staff: RADIOLOGY,OUTSIDE SERVICE, Staff Physician / May 06, 2022 10:36 CT (AP) ABDOMEN/PELVIS (P): RADIOLOGY,OUTSIDE [facility] LUISANA EDDY [id number] 1935 M SERVICE Exm Date: MAY 06, 2022@10:36 Req Phys: MODESTA VILLANUEVA Loc: [facility] EMERGENCY DEPT WALK-IN (Re Img Loc: CT IMAGING Service: Unknown (Case 66 COMPLETE) CT (AP) ABDOMEN/PELVIS W CONT RAST(CT Detailed) CPT:35428 Reason for Study: fever, back pain Clinical History: fever, back pain, ecchymosis left low back consideration for intra-abdominal process, aort ic changes, LS spine trauma, kidney inflammation, GI or obs truction [place] IS under investigation (PUI) for COVID- 19 or is COVID-19+ Defer to radiologist for final CT protocol. Please enter pertinent clinical history on the next page. Responsible provider name and phone number to n otify for critical findings if other than user placing the order a nd pager listed below: User placing orders pager: [phone] LAST 3: Collection DT Specimen Test Name [...] ESTIMATED GFR(eGF 44 L Ref: >=60 Allergies: ([place] only) SIMVASTATIN (Feb 29, 2004) CEPHALEXIN (Mar 01, 2004) To see allergies from all [place] locations click Re ports tab>Remote Data>All Available Sites>Clinical Reports>Aller gies. Report Status: Verified Date Reported: MAY 06, 2022 Date Verified: MAY 06, 2022 [employer] Teacher E-Sig: Report: Exam: CT (AP) ABDOMEN/PELVIS W CONTRAST [PRINTS ET] Clinical History: fever, back pain Number of images: 918 Comparison: No priors available Technique: The study was protocoled and supervi sed at the local [place] facility. CT of the abdomen and pelvis [...] findings, above. READING PHYSICIAN: Eduin Donaldson M.D. -[phone] 05/06/2022 12:48 [facility] [phone] (For Medical Practitioner Use Only ) Attention Patients / Veterans: If you have ques tions or concerns about these test results, please contact your [facility] [place] provider or primary care team. Primary Interpreting Staff: RADIOLOGY,OUTSIDE SERVICE, Staff Physician / May 06, 2022 10:35 CT HEAD/BRAIN W/O CONTRAST: RADIOLOGY,OUTSIDE [facility] LUISANA EDDY [id number] -1935 M SERVICE Exm Date: MAY 06, 2022@10:35 Req Phys: MODESTA VILLANUEVA Loc: [facility] EMERGENCY DEPT WALK-IN (Re Img Loc: CT IMAGING Service: Unknown (Case 64 COMPLETE) CT HEAD/BRAIN W/O CONTRAST (C T Detailed) CPT:83028 Reason for Study: falls, blood thinner, AMS, se izure Clinical History: falls, blood thinner, AMS, seizure [place] IS under investigation (PUI) for COVID- 19 or is COVID-19+ Defer to radiologist for final CT protocol. Responsible provider name and phone number to n otify for critical findings if other than user placing the order a nd pager listed below: User placing orders pager: [phone] LAST 3: Collection DT Specimen Test Name [...] ESTIMATED GFR(eGF 44 L Ref: >=60 Allergies: ([place] only) SIMVASTATIN (Feb 29, 2004) CEPHALEXIN (Mar 01, 2004) To see allergies from all [facility] locations click Re ports tab>Remote Data>All Available Sites>Clinical Reports>Aller gies. Report Status: Verified Date Reported: MAY 06, 2022 Date Verified: MAY 06, 2022 [employer] Teacher E-Sig: Report: CT HEAD/BRAIN W/O CONTRAST Clinical [...] T findings. READING PHYSICIAN: Eduin Donaldson M.D. -[phone] 05/06/2022 12:30 [facility] [phone] (For Medical Practitioner Use Only ) Attention Patients / Veterans: If you have ques tions or concerns about these test results, please contact your o [facility] provider or primary care team. Primary Interpreting Staff: RADIOLOGY,OUTSIDE SERVICE, Staff Physician / May 06, 2022 10:35 CT CERVICAL SPINE W/O CONTRAST: RADIOLOGY,OUT SIDE [facility] LUISANA EDDY [id number] -1935 M SERVICE Exm Date: MAY 06, 2022@10:35 Req Phys: MODESTA VILLANUEVA Loc: [facility] EMERGENCY DEPT WALK-IN (Re Img Loc: CT IMAGING Service: Unknown (Case 65 COMPLETE) CT CERVICAL SPINE W/O CONTRAS T (CT Detailed) CPT:46388 Reason for Study: falls, blood thinner, AMS, se izure Clinical History: falls, blood thinner, AMS, seizure IS under investigation (PUI) for COVID- 19 or is COVID-19+ Defer to radiologist for final CT protocol. Responsible provider name and phone number to n otify for critical findings if other than user placing the order a nd pager listed below: User placing orders pager: [phone] LAST 3: Collection DT Specimen Test Name [...] ESTIMATED GFR(eGF 44 L Ref: >=60 Allergies: ([place] only) SIMVASTATIN (Feb 29, 2004) CEPHALEXIN (Mar 01, 2004) To see allergies from all [place] locations click Re ports tab>Remote Data>All Available Sites>Clinical Reports>Aller gies. Report Status: Verified Date Reported: MAY 06, 2022 Date Verified: MAY 06, 2022 [employer] Teacher E-Sig: Report: CT CERVICAL SPINE W/O CONTRAST HISTORY:falls, blood thinner, AMS, seizure NUMBER OF IMAGES:770 COMPARISON: None available. TECHNIQUE: A non contrast CT of the cervical sp ine was performed at the local [place]. Images were subsequently sent to [facility] [...] findings, above. READING PHYSICIAN: Eduin Donaldson M.D. -[phone] 05/06/2022 12:33 [facility] Program [phone] (For Medical Practitioner Use Only ) Attention Patients / Veterans: If you have ques tions or concerns about these test results, please contact your [facility] [place] provider or primary care team. Primary Interpreting [...] 05:30 AM LR MICROBIOLOGY REPORT: [facility] [place] [facility] Reporting Lab: [facility] [CLIA# [id number] 147] [place] [address] Accession [UID]: [id number] [[id number]] Receiv ed: May 09, 2022@01:35 Collection sample: BLOOD Collection date: Apr 05:30 Provider: CODIE LEON Comment on specimen: LEFT ARM, RECEIVED 2 BLOOD CULTURE BOTTLES Test(s) ordered: CULTURE & SUSCEPTIBILITY...... 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 R TRIMETH/SULFA................. S TETRACYCLINE.................. S CLINDAMYCIN................... S RIFAMPIN...................... S VANCOMYCIN.................... S Bacteriology Remark(s): VANCOMYCIN SHAMIKA: <=0.5 ug/mL THIS REPORT IS FINAL =--=--=--=--=--=--=--=--=--=--=--=--=--= --=--=--=--=--=--=--=--=--=--=--=--=-- Performing Laboratory: Bacteriology Report Performed By: [facility] [CLIA# [id number]] [place] [address] May 08, 2022 03:23 PM LR MICROBIOLOGY REPORT: [facility] Reporting Lab: [facility] [CLIA# [id number]] [place] [address] Accession [UID]: [id number] [[id number]] Receiv ed: May 08, 2022@15:41 Collection sample: BLOOD Collection date: Apr 15:23 Provider: CODIE LEON Comment on specimen: LEFT ARM, RECEIVED 2 BLOOD CULTURE BOTTLES Test(s) ordered: CULTURE & SUSCEPTIBILITY...... completed: May 10, 2022 * BACTERIOLOGY FINAL REPORT => May 10, 2022 16:3 1 TECH CODE: [id number] CULTURE RESULTS: GROWTH SAME THAT OF ANOTHER CULTURE Comment: FOR SUSCEPTIBILITY REPORT SEE PREVIOUS POSITIVE SAME MB 22 [id number] ( 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 from Anaerobic bottle ) ( Recovered from Aerobic bottle ) Bacteriology Remark(s): THIS REPORT IS FINAL =--=--=--=--=--=--=--=--=--=--=--=--=--= --=--=--=--=--=--=--=--=--=--=--=--=-- Performing Laboratory: Bacteriology Report Performed By: [facility] [CLIA# [id number]] [place] [address] May 08, 2022 03:21 PM LR MICROBIOLOGY REPORT: [facility] Reporting Lab: [facility] [CLIA# [id number]] [place] [address] Accession [UID]: [id number] [[id number]] Receiv ed: May 08, 2022@15:40 Collection sample: BLOOD Collection date: Apr 15:21 Provider: CODIE LEON Comment on specimen: RT ARM, RECEIVED 2 BLOOD CU LTURE BOTTLES Test(s) ordered: CULTURE & SUSCEPTIBILITY...... completed: May 10, 2022 * BACTERIOLOGY FINAL REPORT => May 10, 2022 16:3 1 TECH CODE: [id number] CULTURE RESULTS: GROWTH SAME THAT OF ANOTHER CULTURE Comment: FOR SUSCEPTIBILITY REPORT SEE PREVIOUS POSITIVE SAME MB 22 [id number] ( 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 from Anaerobic bottle ) ( Recovered from Aerobic bottle ) Bacteriology Remark(s): THIS REPORT IS FINAL =--=--=--=--=--=--=--=--=--=--=--=--=--= --=--=--=--=--=--=--=--=--=--=--=--=-- Performing Laboratory: Bacteriology Report Performed By: [facility] [CLIA# [id number]] [place] [address] May 07, 2022 05:30 AM LR MICROBIOLOGY REPORT: [facility] Reporting Lab: [facility] [CLIA# [id number] 147] [place] [address] Accession [UID]: [id number] [[id number]] Receiv ed: May 07, 2022@01:35 Collection sample: [...] REPORT SEE PREVIOUS POSITIVE SAME MB 22 04515 ( 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 from Aerobic bottle ) ( Recovered from Anaerobic bottle ) Bacteriology Remark(s): THIS REPORT IS FINAL =--=--=--=--=--=--=--=--=--=--=--=--=--= --=--=--=--=--=--=--=--=--=--=--=--=-- Performing Laboratory: Bacteriology Report Performed By: [facility] [CLIA# [id number]] [place] [address] May 06, 2022 10:51 AM LR MICROBIOLOGY REPORT: [facility] Reporting Lab: [facility] [CLIA# [id number] 147] [place] [address] Accession [UID]: [id number] [[id number]] Receiv ed: May 06, 2022@11:32 Collection sample: [...] --=--=--=--=--=--=--=--=--=--=--=--=-- Performing Laboratory: Bacteriology Report Performed By: [facility] [CLIA# [id number]] [place] [address] May 06, 2022 10:34 AM LR MICROBIOLOGY REPORT: [facility] Reporting Lab: [facility] [CLIA# [id number] 147] [place] [address] Accession [UID]: [id number] [[id number]] Receiv ed: May 06, 2022@10:51 Collection sample: BLOOD Collection date: Apr 10:34 Provider: MODESTA VILLANUEVA Comment on specimen: RECEIVED 2 BLOOD CULTURE [facility] Test(s) ordered: CULTURE & SUSCEPTIBILITY...... completed: May 07, 2022 * BACTERIOLOGY FINAL REPORT => May 08, 2022 08:3 0 TECH CODE: [id number] CULTURE RESULTS: STAPHYLOCOCCUS AUREUS METHICILL IN RESISTANT [...] --=--=--=--=--=--=--=--=--=--=--=--=-- Performing Laboratory: Bacteriology Report Performed By: [facility] [CLIA# [id number]] [place] [address] May 06, 2022 10:00 AM LR MICROBIOLOGY REPORT: [facility] Reporting Lab: [facility] [CLIA# [id number] 147] [place] [address] Accession [UID]: [id number] [[id number]] Receiv ed: May 06, 2022@10:41 Collection sample: [...] SEE PREVIOUS POSITIVE SAME [place] MIGUEL 22 70317 ( 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 from Anaerobic bottle ) ( Recovered from Aerobic bottle ) Bacteriology Remark(s): THIS REPORT IS FINAL =--=--=--=--=--=--=--=--=--=--=--=--=--= --=--=--=--=--=--=--=--=--=--=--=--=-- Performing Laboratory: Bacteriology Report Performed By: [facility] [CLIA# [id number]] [address] [place] [address] Encounter Notes: All associated encounter notes This section contains the clinical notes associated to the Encounter. Date/Time Encounter Note(s) Provider Source May 07, 2022 07:31 PM CRITICAL CARE UNIT NOTE: [facility] LOCAL TITLE: ICCA INPATIENT FLOWSHEET STANDARD TITLE: CRITICAL CARE UNIT NOTE DATE OF NOTE: MAY 07, 2022@19:31 ENTRY DATE: MAY 08, 2022@14:30:32 AUTHOR: SYSTEM,[facility] EXP COSIGNER: URGENCY: STATUS: COMPLETED This is a place chan only. Please see [email or web address] to view document. /es/ [facility] ICU DOCUMENT IMPORT Signed: 05/08/2022 14:30 May 07, 2022 07:31 PM CRITICAL CARE UNIT NOTE: [facility] LOCAL TITLE: ICCA RESPIRATORY THERAPY FLOWSHEET STANDARD TITLE: CRITICAL CARE UNIT NOTE DATE OF NOTE: MAY 07, 2022@19:31 ENTRY DATE: MAY 08, 2022@15:03:27 AUTHOR: SYSTEM,[facility] EXP COSIGNER: URGENCY: STATUS: COMPLETED This is a place chan only. Please see [email or web address] to view document. /es/ [facility] ICU DOCUMENT IMPORT Signed: 05/08/2022 15:03
--- OUTSIDE RECORDS SUMMARY | 2022-05-15 09:36 | XMS_ITS ---
DAILY HOSPITALIZATION DATA [facility] Encounter Summary Created on:May 08, 2022 Patient:LUISANA EDDY Sex:Male :1935 Author Organization Department [facility] rs Address [address] [place] [address] Support Name Relationship Address Phone WADE LORENZO Unavailable [id number] [place] [address] WADE LORENZO Unavailable [id number] [place] [address] ARACELI MARSHALL Unavailable [phone] [place] [address] MARILIA MARSHALLA Unavailable [phone] [place] [address] Insurance Providers: All historical and current Section [...] [place] Aug 19, [id number] Kristel EDDY [facility] (WNR) ADVANTAGE (WNR) 2016 8 [id number] [phone] [facility] [place] MCR Aug 19, [id number] Kristel EDDY [facility] (WNR) ADVANTAGE (WNR) 2016 8 [id number] [phone] [facility] 1 Selected Encounter This section includes the information on record at [place] for the Encounter. Date/Time Encounter Type Encounter Description Reason Provider Source May 08, 2022 10:56 Inpatient Visit DAILY HOSPITALIZATION DATA PM [facility] Encounter Template Text not used by [place] Plan of Treatment: Future Appointments (+ 6 months) and Future Tests (+/- 45 days) The Plan of Treatment section includes future care activities for the patient from all [place] [facility]. This section includes future appointments [...] 11, 2022 06:15 PM AMBULATORY - NONE [facility] Jul 23, 2022 08:00 AM AMBULATORY - NEUROLOGY [facility] Active, Pending, and Scheduled Orders This section includes a listing of several types of active, pending, and scheduled orders, including clinic medications orders, diagnostic test orders, procedure orders and consult orders; where the start date of the order is 45 days before the date of the Encounter or 45 days after the date of the Encounter. The data comes from all [place] treatment [facility]. Test Date/Time Test Type Test Details Facility Name Apr 30, 2022 08:21 Laboratory - CULTURE & SUSCEPTIBILITY [facility] AM Microbiology Order URINE WC Apr 30, 2022 08:21 Laboratory - Chemistry URINALYSIS URINE WC ON CE [facility] AM Order May 06, 2022 12:00 Laboratory - Blood ABO/RH - LAB BLOOD [facility] AM Bank Order May 06, 2022 10:11 Laboratory - Blood TYPE & SCREEN - LAB [facility] AM Bank Order BLOOD WC May 06, 2022 10:27 Pharmacy [facility] AM Medication Order May [...] 2022 01:00 Laboratory - CULTURE & SUSCEPTIBILITY [facility] PM Microbiology Order BLOOD WC ONCE May 11, 2022 09:07 Laboratory - CULTURE & SUSCEPTIBILITY [facility] AM Microbiology Order BLOOD WC May 11, 2022 09:07 Laboratory - CULTURE & SUSCEPTIBILITY [facility] AM Microbiology Order BLOOD WC May 11, 2022 09:38 Laboratory - Chemistry EOSINOPHIL SMEAR,URINE [facility] AM Order URINE WC ONCE May 11, 2022 09:38 Laboratory - Chemistry URINALYSIS URINE WC ON CE [facility] AM Order May 11, 2022 09:38 Laboratory - Chemistry FENA URINE WC ONCE [facility] AM Order Lab Results: +/- 30 [...] May 11, 2022 11:13 [facility] FINGERSTICK GLUCOSE Speci men Type: BLOOD AM Comment: Mark casillas Nurse Notified Ordering Provid er: CODIE LEON Report Released Date/Time: May 11, 2022 11:53 AM Reporting Lab: [facility] [address] [facility] [address] Performing Lab: [facility] [address] [facility] [address] FINGERSTICK GLUCOSE 367 H 70-100 May 11, 2022 07:05 [facility] LIVER FUNCTION TESTS Spec imen Type: PLASMA AM No comment enter ed. Ordering Provid er: CODIE LEON Report Released Date/Time: May 11, 2022 09:08 AM Reporting Lab: [facility] [address] [facility] [address] Performing Lab: [facility] [address] [facility] [address] BILIRUBIN, TOTAL 1.6 H 0.2-1.2 ALKALINE PHOSPHATASE 102 40-150 ALT/SGPT 42 <55 AST/SGOT 30 <34 GAMMA GTP 52 <64 DIR. BILIRUBIN 1.2 H <0.5 May 11, 2022 07:05 [facility] BASIC METABOLIC Specimen Type: PLASMA AM PANEL+MG No comment enter ed. Ordering Provid er: OG DIAL Report Released Date/Time: May 11, 2022 04:46 AM Reporting Lab: [facility] [address] [facility] [address] Performing Lab: [facility] [address] [facility] [address] CREATININE 1.6 H 0.7-1.2 UREA NITROGEN 28 H 8-26 GLUCOSE 396 H 70-100 SODIUM 150 H 136-145 POTASSIUM 3.7 3.5-5.1 CHLORIDE 120 H 98-107 CO2 23 22-29 CALCIUM 8.4 8.4-10.2 MAGNESIUM 2.1 1.6-2.6 ANION GAP 7 5-15 CREAT EGFR(CKD-EPI) 42 L >60 May 11, 2022 07:05 AM [facility] CBC Specim en Type: BLOOD No comment enter ed. Ordering Provid er: OG DIAL Report Released Date/Time: May 11, 2022 04:46 AM Reporting Lab: [facility] [address] [facility] [address] Performing Lab: [facility] [address] [facility] [address] WBC 15.93 H 4.0-11.0 RBC 3.60 L 4.6-6.2 HGB 11.2 L 13.5-17.9 HCT 35.3 L 41-54 MCV 98.1 80-100 MCH 31.1 27-33 MCHC 31.7 L 32.0-37.5 PLT 231 150-400 MPV 11.2 H 7.4-10.4 RDW 15.2 H 11.5-14.5 May 11, 2022 07:05 AM [facility] CK,TOTAL Specim en Type: PLASMA No comment enter ed. Ordering Provid er: CODIE LEON Report Released Date/Time: May 11, 2022 09:08 AM Reporting Lab: [facility] [address] [facility] [address] Performing Lab: [facility] [address] [facility] [address] CK,TOTAL 16 L 39-208 May 11, 2022 07:05 AM [facility] BNP Specim en Type: PLASMA No comment enter ed. Ordering Provid er: CODIE LEON Report Released Date/Time: May 11, 2022 09:15 AM Reporting Lab: [facility] [address] [facility] [address] Performing Lab: [facility] [address] [facility] [address] BNP 59 <99 May 11, 2022 06:14 [facility] FINGERSTICK GLUCOSE Speci men Type: BLOOD AM Comment: Mark casillas Nurse Notified Ordering Provid er: CODIE LEON Report Released Date/Time: May 11, 2022 06:42 AM Reporting Lab: [facility] [address] [facility] [address] Performing Lab: [facility] [address] [facility] [address] FINGER[place]ICK GLUCOSE 345 H 70-100 May 11, 2022 02:24 [facility] FINGERSTICK GLUCOSE Speci men Type: BLOOD AM Comment: Mark casillas Ordering Provid er: CODIE LEON Report Released Date/Time: May 11, 2022 02:44 AM Reporting Lab: [facility] [address] [facility] [address] Performing Lab: [facility] [address] [facility] [address] FING[place] GLUCOSE 375 H 70-100 May 10, 2022 08:38 [facility] FINGERSTICK GLUCOSE Speci men Type: BLOOD PM Comment: Mark casillas Ordering Provid er: CODIE LEON Report Released Date/Time: May 11, 2022 12:31 AM Reporting Lab: [facility] [address] [facility] [address] Performing Lab: [facility] [address] [facility] [address] FINGER[place]ICK GLUCOSE 346 H 70-100 May 10, 2022 05:05 [facility] FINGERSTICK GLUCOSE Speci men Type: BLOOD PM Comment: Mark casillas Nurse Notified Ordering Provid er: CODIE LEON Report Released Date/Time: May 10, 2022 11:50 PM Reporting Lab: [facility] [address] [facility] [address] Performing Lab: [facility] [address] [facility] [address] FINGERSTICK GLUCOSE 245 H 70-100 May 10, 2022 02:00 [facility] VANCOMYCIN (TROUGH) Speci men Type: PLASMA PM No comment enter ed. Ordering Provid er: CODIE LEON Report Released Date/Time: May 11, 2022 01:34 AM Reporting Lab: [facility] [address] [facility] [address] Performing Lab: [facility] [address] [facility] [address] VANCOMYCIN (TROUGH) 31.8 H 10.0-15.0 May 10, 2022 [facility] BASIC METABOLIC Specimen Typ e: PLASMA 02:00 PM PANEL+MG No comment enter ed. Ordering Provid er: CODIE LEON Report Released Date/Time: May 11, 2022 01:34 AM Reporting Lab: [facility] [address] Performing Lab: [facility] [address] CREATININE 1.1 .7-1.2 UREA NITROGEN 22 8-26 GLUCOSE 279 H 70-100 SODIUM 150 H 136-145 POTASSIUM 3.2 L 3.5-5.1 CHLORIDE 116 H 98-107 CO2 23 22-29 CALCIUM 8.5 8.4-10.2 MAGNESIUM 2.0 1.6-2.6 ANION GAP 11 5-15 CREAT EGFR(CKD-EPI) 65 >60 May 10, 2022 01:20 PM [facility] CBC & DIFF Specim en Type: BLOOD Comment: Automa nola Differential Performed Ordering Provid er: MD ESTEBAN Report Released Date/Time: May 10, 2022 08:52 PM Reporting Lab: [facility] [address] Performing Lab: [facility] [address] WBC 16.24 H 4.0-11.0 RBC 3.76 L [...] May 10, 2022 11:07 [facility] FINGERSTICK GLUCOSE Speci men Type: BLOOD AM Comment: Mark casillas Nurse Notified Ordering Provid er: CODIE LEON Report Released Date/Time: May 11, 2022 12:31 AM Reporting Lab: [facility] [address] [facility] [address] Performing Lab: [facility] [address] [facility] [address] FINGERSTICK GLUCOSE 253 H 70-100 May 10, 2022 06:16 [facility] FINGERSTICK GLUCOSE Speci men Type: BLOOD AM Comment: Mark casillas Nurse Notified Ordering Provid er: CODIE LEON Report Released Date/Time: May 10, 2022 11:50 PM Reporting Lab: [facility] [address] [facility] [address] Performing Lab: [facility] [address] [facility] [address] FINGERSTICK GLUCOSE 271 H 70-100 May 09, 2022 09:07 [facility] FINGERSTICK GLUCOSE Speci men Type: BLOOD PM Comment: aMrk casillas Ordering Provid er: CODIE LEON Report Released Date/Time: May 10, 2022 11:50 PM Reporting Lab: [facility] [address] [facility] [address] Performing Lab: [facility] [address] [facility] [address] FINGERSTICK GLUCOSE 209 H 70-100 May 09, 2022 05:33 [facility] FINGERSTICK GLUCOSE Speci men Type: BLOOD PM Comment: Mark casillas Nurse Notified Ordering Provid er: CODIE LEON Report Released Date/Time: May 09, 2022 05:53 PM Reporting Lab: [facility] [address] [facility] [address] Performing Lab: [facility] [address] [facility] [address] FINGERSTICK GLUCOSE 251 H 70-100 May 09, 2022 02:09 [facility] VANCOMYCIN (PEAK) Specime n Type: SERUM PM No comment enter ed. Ordering Provid er: AMARIS DE JESUS Report Released Date/Time: May 09, 2022 09:33 AM Reporting Lab: [facility] [address] [facility] [address] Performing Lab: [facility] [address] [facility] [address] VANCOMYCIN (PEAK) 24.2 20.0-40.0 May 09, 2022 11:19 [facility] FINGERSTICK GLUCOSE Speci men Type: BLOOD AM Comment: Mark casillas Nurse Notified Ordering Provid er: CODIE LEON Report Released Date/Time: May 09, 2022 11:38 AM Reporting Lab: [facility] [address] Performing Lab: [facility] [address] FING[place] GLUCOSE 240 H 70-100 May 09, 2022 08:13 [facility] VANCOMYCIN (TROUGH) Speci men Type: SERUM AM No comment enter ed. Ordering Provid er: AMARIS DE JESUS Report Released Date/Time: May 08, 2022 11:14 AM Reporting Lab: [facility] [address] Performing Lab: [facility] [address] VANCOMYCIN (TROUGH) 16.1 H 10.0-15.0 May 09, 2022 05:33 AM [facility] CBC & DIFF Specim en Type: BLOOD Comment: Automa nola Differential Performed Ordering Provid er: CODIE LEON Report Released Date/Time: May 08, 2022 05:27 PM Reporting Lab: [facility] [address] Performing Lab: [facility] [address] WBC 14.92 H 4.0-11.0 RBC 3.41 L [...] 0-0.1 May 09, 2022 [facility] COMPREHENSIVE METABOLIC Spec imen Type: PLASMA 05:32 AM PANEL+MG No comment enter ed. Ordering Provid er: MALINI,CODIE E Report Released Date/Time: May 08, 2022 05:27 PM Reporting Lab: [facility] [address] [facility] [address] Performing Lab: [facility] [address] [facility] [address] [facility] [address] CREATININE 1.2 0.7-1.2 UREA NITROGEN 25 8-26 [...] May 09, 2022 05:16 [facility] FINGERSTICK GLUCOSE Speci men Type: BLOOD AM Comment: Mark casillas Nurse Notified Ordering Provid er: CODIE LEON Report Released Date/Time: May 09, 2022 07:27 AM Reporting Lab: [facility] [address] [facility] [address] F[place] GLUCOSE 295 H 70-100 May 08, 2022 09:32 PM [facility] EXTRA MINT TUBE Specim en Type: PLASMA No comment enter ed. Ordering Provid er: MD ESTEBAN Report Released Date/Time: May 08, 2022 09:32 PM Reporting [facility] [address] Performing Lab: [facility] [address] [facility] [address] EXTRA MINT TUBE RECEIVED May 08, 2022 09:32 PM [facility] EXTRA PURPLE TUBE Spec imen Type: BLOOD No comment enter ed. Ordering Provid er: MD ESTEBAN Report Released Date/Time: May 08, 2022 09:32 PM Reporting Lab: [facility] [address] [facility] [address] Performing [facility]: [facility] [address] EXTRA PURPLE TUBE RECEIVED May 08, 2022 09:32 [facility] EXTRA GOLD GEL TUBE Speci men Type: SERUM PM No comment enter ed. Ordering Provid er: MD ESTEBAN Report Released Date/Time: May 08, 2022 09:32 PM Reporting Lab: [facility] [address] [facility] [address] Performing Lab: [facility] [address] [facility] [address] EXTRA GOLD GEL TUBE RECEIVED May 08, 2022 09:32 PM [facility] EXTRA BLUE TUBE Specim en Type: PLASMA No comment enter ed. Ordering Provid er: MD ESTEBAN Report Released Date/Time: May 08, 2022 09:32 PM Reporting Lab: [facility] [address] [facility] [address] Performing Lab: [facility] [address] [facility] [address] EXTRA BLUE TUBE RECEIVED May 08, 2022 09:32 PM [facility] EXTRA BRASWELL TUBE Specim en Type: PLASMA No comment enter ed. Ordering Provid er: MD ESTEBAN Report Released Date/Time: May 08, 2022 09:37 PM Reporting Lab: [facility] [address] [facility] [address] Performing Lab: [facility] [address] [facility] [address] EXTRA BRASWELL TUBE RECEIVED May 08, 2022 09:32 PM [facility] LACTIC ACID Specim en Type: PLASMA No comment enter ed. Ordering Provid er: OG DIAL Report Released Date/Time: May 08, 2022 09:49 PM Reporting Lab: [facility] [address] [facility] [address] Performing Lab: [facility] [address] [facility] [address] LACTIC ACID 2.5 H 0.5-2.2 May 08, 2022 09:32 PM [facility] BNP Specim en Type: PLASMA No comment enter ed. Ordering Provid er: OG DIAL Report Released Date/Time: May 08, 2022 09:50 PM Reporting Lab: [facility] [address] [facility] [address] Performing Lab: [facility] [address] [facility] [address] BNP 897 H <99 May 08, 2022 09:32 PM [facility] BLOOD GASES Specim en Type: VENOUS BLOOD Comment: O2 THE RAPY = 3L PM Ordering Provid er: OG DIAL Report Released Date/Time: May 08, 2022 09:50 PM Reporting Lab: [facility] [address] [facility] [address] Performing Lab: [facility] [address] PH 7.36 7.33-7.43 PCO2 47 41-51 BICARBONATE 24.4 21.0-30.0 PO2 31 L 35-40 OXYGEN SATURATION 54.7 L 70.0-75.0 PH(TEMP CORRECTED) 7.37 7.33-7.43 PCO2(TEMP CORRECTED) 46 41-51 PO2(TEMP CORRECTED) 31 L 35-40 PATIENT TEMPERATURE 36.7 May 08, 2022 09:32 PM [facility] CBC Specim en Type: BLOOD No comment enter ed. Ordering Provid er: OG DIAL Report Released Date/Time: May 08, 2022 09:50 PM Reporting Lab: [facility] [address] Performing Lab: [facility] [address] WBC 18.54 H 4.0-11.0 RBC 3.68 L 4.6-6.2 HGB 11.5 L 13.5-17.9 HCT 35.1 L 41-54 MCV 95.4 80-100 MCH 31.3 27-33 MCHC 32.8 32.0-37.5 PLT 221 150-400 MPV 11.1 H 7.4-10.4 RDW 14.9 H 11.5-14.5 May 08, 2022 [facility] COMPREHENSIVE METABOLIC Spec imen Type: PLASMA 09:32 PM PANEL+MG No comment enter ed. Ordering Provid er: OG DIAL Report Released Date/Time: May 08, 2022 09:50 PM Reporting Lab: [facility] [address] Performing Lab: [facility] [address] CREATININE 1.3 H 0.7-1.2 UREA NITROGEN 26 [...] May 08, 2022 08:27 [facility] FINGERSTICK GLUCOSE Speci men Type: BLOOD PM Comment: Mark casillas Nurse Notified Ordering Provid er: CODIE LEON Report Released Date/Time: May 08, 2022 08:55 PM Reporting Lab: [facility] [address] [facility] [address] Performing Lab: [facility] [address] [facility] [address] FINGERSTICK GLUCOSE 272 H 70-100 May 08, 2022 06:56 [facility] FINGERSTICK GLUCOSE Speci men Type: BLOOD PM Comment: Mark casillas Ordering Provid er: CODIE LEON Report Released Date/Time: May 08, 2022 07:08 PM Reporting Lab: [facility] [address] [facility] [address] Performing Lab: [facility] [address] [facility] [address] FINGERSTICK GLUCOSE 262 H 70-100 May 08, 2022 04:50 [facility] FINGERSTICK GLUCOSE Speci men Type: BLOOD PM Comment: Nurse Notified Ordering Provid er: CODIE LEON Report Released Date/Time: May 08, 2022 05:14 PM Reporting Lab: [facility] [address] [facility] [address] Performing Lab: [facility] [address] [facility] [address] FINGERSTICK GLUCOSE 330 H 70-100 May 08, 2022 11:21 [facility] FINGERSTICK GLUCOSE Speci men Type: BLOOD AM Comment: Mark casillas Nurse Notified Ordering Provid er: CODIE LEON Report Released Date/Time: May 08, 2022 11:51 AM Reporting Lab: [facility] [address] [facility] [address] Performing Lab: [facility] [address] [facility] [address] FINGERSTICK GLUCOSE 231 H 70-100 May 08, 2022 07:25 AM [facility] CBC & DIFF Specim en Type: BLOOD Comment: Automa nola Differential Performed Ordering Provid er: BETO AYALA Report Released Date/Time: May 07, 2022 12:28 PM Reporting Lab: [facility] [address] Performing Lab: [facility] [address] WBC 16.29 H 4.0-11.0 RBC 3.38 L [...] 0-0.1 May 08, 2022 [facility] PROTHROMBIN TIME/INR Specime n Type: PLASMA 07:25 AM No comment enter ed. Ordering Provid er: BETO AYALA Report Released Date/Time: May 07, 2022 12:28 PM Reporting Lab: [facility] [address] Performing Lab: [facility] [address] .INR 1.2 H 0.8-1.1 .PT 14.2 H 9.4-12.5 May 08, 2022 [facility] COMPREHENSIVE METABOLIC Spec imen Type: PLASMA 07:25 AM PANEL+MG No comment enter ed. Ordering Provid er: BETO AYALA Report Released Date/Time: May 07, 2022 12:28 PM Reporting Lab: [facility] [address] Performing Lab: [facility] [address] CREATININE 1.1 0.7-1.2 UREA NITROGEN 27 H [...] May 08, 2022 06:53 [facility] FINGERSTICK GLUCOSE Speci men Type: BLOOD AM Comment: Mark acsillas Ordering Provid er: CODIE LEON Report Released Date/Time: May 08, 2022 07:18 AM Reporting Lab: [facility] [address] [facility] [address] Performing Lab: [facility] [address] [facility] [address] FINGERSTICK GLUCOSE 276 H 70-100 May 07, 2022 08:36 [facility] FINGERSTICK GLUCOSE Speci men Type: BLOOD PM Comment: Nurse Notified Ordering Provid er: CODIE LEON Report Released Date/Time: May 08, 2022 12:29 AM Reporting Lab: [facility] [address] [facility] [address] Performing Lab: [facility] [address] [facility] [address] FINGERSTICK GLUCOSE 282 H 70-100 May 07, 2022 07:04 PM [facility] LACTIC ACID Specim en Type: PLASMA No comment enter ed. Ordering Provid er: BETO AYALA Report Released Date/Time: May 07, 2022 06:28 PM Reporting Lab: [facility] [address] [facility] [address] Performing Lab: [facility] [address] [facility] [address] LACTIC ACID 2.0 0.5-2.2 May 07, 2022 04:46 [facility] FINGERSTICK GLUCOSE Speci men Type: BLOOD PM Comment: Nurse Notified Ordering Provid er: BETO AYALA Report Released Date/Time: May 07, 2022 05:00 PM Reporting Lab: [facility] [address] [facility] [address] Performing Lab: [facility] [address] [facility] [address] FINGERSTICK GLUCOSE 274 H 70-100 May 07, 2022 12:47 [facility] FINGERSTICK GLUCOSE Speci men Type: BLOOD PM Comment: Mark casillas Nurse Notified Ordering Provid er: BETO AYALA Report Released Date/Time: May 07, 2022 05:32 PM Reporting Lab: [facility] [address] [facility] [address] Performing Lab: [facility] [address] [facility] [address] FINGERSTICK GLUCOSE 309 H 70-100 May 07, 2022 06:35 [facility] FINGERSTICK GLUCOSE Speci men Type: BLOOD AM Comment: Mark casillas Nurse Notified Ordering Provid er: GAYLA DOMINGUEZ Report Released Date/Time: May 07, 2022 06:46 AM Reporting Lab: [facility] [address] [facility] [address] Performing Lab: [facility] [address] [facility] [address] FINGERSTICK GLUCOSE 352 H 70-100 May 07, 2022 06:15 AM [facility] ALBUMIN Specim en Type: PLASMA No comment enter ed. Ordering Provid er: GAYLA DOMINGUEZ Report Released Date/Time: May 06, 2022 06:33 PM Reporting Lab: [facility] [address] [facility] [address] Performing Lab: [facility] [address] [facility] [address] ALBUMIN 3.0 L 3.5-5.2 May 07, 2022 [facility] COMPREHENSIVE METABOLIC Spec imen Type: PLASMA 06:15 AM PANEL+MG No comment enter ed. Ordering Provid er: GAYLA DOMINGUEZ Report Released Date/Time: May 06, 2022 09:11 PM Reporting Lab: [facility] [address] [facility] [address] Performing Lab: [facility] [address] [facility] [address] CREATININE 1.2 0.7-1.2 UREA NITROGEN 25 8-26 [...] 07, 2022 06:15 AM [facility] CBC & DIFF Specim en Type: BLOOD Comment: Manual Differential Performed Ordering Provid er: GAYLA DOMINGUEZ Report Released Date/Time: May 06, 2022 09:11 PM Reporting Lab: [facility] [address] [facility] [address] Performing Lab: [facility] [address] [facility] [address] WBC 20.25 H 4.0-11.0 RBC 3.54 L [...] 07, 2022 12:19 AM [facility] LACTIC ACID Specim en Type: PLASMA No comment enter ed. Ordering Provid er: GAYLA DOMINGUEZ Report Released Date/Time: May 06, 2022 07:13 PM Reporting Lab: [facility] [address] [facility] [address] Performing Lab: [facility] [address] [facility] [address] LACTIC ACID 2.7 H 0.5-2.2 May 06, 2022 10:45 [facility] FINGERSTICK GLUCOSE Speci men Type: BLOOD PM Comment: Mark casillas Nurse Notified Ordering Provid er: GAYLA DOMINGUEZ Report Released Date/Time: May 07, 2022 12:08 AM Reporting Lab: [facility] [address] [facility] [address] Performing Lab: [facility] [address] [facility] [address] FINGERSTICK GLUCOSE 320 H 70-100 May 06, 2022 06:53 [facility] MRSA SURVL NARES Specimen Type: NARES PM DNA No comment enter ed. Ordering Provid er: GAYLA DOMINGUEZ Report Released Date/Time: May 06, 2022 06:33 PM Reporting Lab: [facility] [address] [facility] [address] Performing Lab: [facility] [address] [facility] [address] MRSA SURVL NARES DNA POSITIVE HH Negative May 06, 2022 06:51 PM [facility] LACTIC ACID Specim en Type: PLASMA No comment enter ed. Ordering Provid er: GAYLA DOMINGUEZ Report Released Date/Time: May 06, 2022 06:04 PM Reporting Lab: [facility] [address] [facility] [address] Performing Lab: [facility] [address] [facility] [address] LACTIC ACID 3.1 H 0.5-2.2 May 06, 2022 06:51 [facility] CARDIAC TROPONIN I Specim en Type: PLASMA PM No comment enter ed. Ordering Provid er: GAYLA DOMINGUEZ Report Released Date/Time: May 06, 2022 06:05 PM Reporting Lab: [facility] [address] [facility] [address] Performing Lab: [facility] [address] [facility] [address] CARDIAC TROPONIN I <0.028 <0.028 May 06, 2022 06:51 [facility] EXTRA GOLD GEL TUBE Speci men Type: SERUM PM No comment enter ed. Ordering Provid er: GAYLA DOMINGUEZ Report Released Date/Time: May 06, 2022 06:52 PM Reporting Lab: [facility] [address] [facility] [address] Performing Lab: [facility] [address] [facility] [address] EXTRA GOLD GEL TUBE RECEIVED May 06, 2022 06:51 [facility] C-REACTIVE PROTEIN Specim en Type: PLASMA PM No comment enter ed. Ordering Provid er: GAYLA DOMINGUEZ Report Released Date/Time: May 06, 2022 09:29 PM Reporting Lab: [facility] [address] [facility] [address] Performing Lab: [facility] [address] C-REACTIVE PROTEIN 392.40 H <5.00 May 06, 2022 10:51 AM [facility] URINALYSIS Specim en Type: URINE No comment enter ed. Ordering Provid er: MODESTA VILLANUEVA Report Released Date/Time: May 06, 2022 10:11 AM Reporting Lab: [facility] [address] Performing Lab: [facility] [address] URINE COLOR YELLOW SPECIFIC GRAVITY 1.020 1.003-1.035 [...] May 06, 2022 10:24 [facility] COVID-19 DIAGNOSTIC Speci men Type: NASOPHARYNGEAL AM PANEL (CEPHEID) Comment: Cephei d GeneXpert (618) Ordering Provid er: MODESTA VILLANUEVA Report Released Date/Time: May 06, 2022 10:11 AM Reporting Lab: [facility] [address] Performing Lab: [facility] [address] COVID-19 (CEPHEID) Not Detected Not Dete cted May 06, 2022 10:20 AM [facility] POC ABG/LACTATE Specim en Type: VENOUS BLOOD No comment enter ed. Ordering Provid er: MODESTA VILLANUEVA Report Released Date/Time: May 06, 2022 10:22 AM Reporting Lab: [facility] [address] Performing Lab: [facility] [address] POC PH 7.410 7.31-7.41 POC PCO2 28.9 L 35.00-45.00 POC PO2 82 H 35.0-40.0 POC TCO2 19 L 24.0-29.0 POC HCO3 18.3 L 23.0-28.0 POC BE ECT -6 L -2 POC SO2 96 H 70-75 POC LACTATE 3.62 0.90-1.70 May 06, 2022 10:00 AM [facility] PHOSPHORUS Specim en Type: PLASMA No comment enter ed. Ordering Provid er: MODESTA VILLANUEVA Report Released Date/Time: May 06, 2022 10:11 AM Reporting Lab: [facility] [address] [facility] [address] Performing Lab: [facility] [address] [facility] [address] PHOSPHORUS 2.5 2.3-4.7 May 06, 2022 10:00 [facility] PROTHROMBIN TIME/INR Spec imen Type: PLASMA AM No comment enter ed. Ordering Provid er: MODESTA VILLANUEVA Report Released Date/Time: May 06, 2022 10:11 AM Reporting Lab: [facility] [address] [facility] [address] Performing Lab: [facility] [address] [facility] [address] .INR 2.5 H 0.8-1.1 .PT 29.2 H 9.4-12.5 May 06, 2022 10:00 [facility] ACT PART THROMBO TIME Spe cimen Type: PLASMA AM No comment enter ed. Ordering Provid er: MODESTA VILLANUEVA Report Released Date/Time: May 06, 2022 10:11 AM Reporting Lab: [facility] [address] [facility] [address] Performing Lab: [facility] [address] [facility] [address] APTT 37.8 H 25.1-36.5 May 06, 2022 10:00 [facility] CARDIAC TROPONIN I Specim en Type: PLASMA AM Comment: Critic al Value Reported To: BROOKS COTE 05-06-2022 @1053 BY MBB. Critical value report confirmed. Ordering Provid er: MODESTA VILLANUEVA Report Released Date/Time: May 06, 2022 10:11 AM Reporting Lab: [facility] [address] [facility] [address] Performing Lab: [facility] [address] [facility] [address] CARDIAC TROPONIN I 0.035 HH <0.028 May 06, 2022 10:00 AM [facility] PROCALCITONIN Specim en Type: PLASMA No comment enter ed. Ordering Provid er: MODESTA VILLANUEVA Report Released Date/Time: May 06, 2022 10:11 AM Reporting Lab: [facility] [address] [facility] [address] Performing Lab: [facility] [address] [facility] [address] PROCALCITONIN 22.29 H <0.09 May 06, 2022 10:00 AM [facility] LIPASE Specim en Type: PLASMA No comment enter ed. Ordering Provid er: MODESTA VILLANUEVA Report Released Date/Time: May 06, 2022 10:11 AM Reporting Lab: [facility] [address] [facility] [address] Performing Lab: [facility] [address] [facility] [address] LIPASE <4 <60 May 06, 2022 [facility] COMPREHENSIVE METABOLIC Spec imen Type: PLASMA 10:00 AM PANEL+MG Comment: Manual Differential Performed Ordering Provid er: MODESTA VILLANUEVA Report Released Date/Time: May 06, 2022 10:11 AM Reporting Lab: [facility] [address] [facility] [address] Performing Lab: [facility] [address] [facility] [address] CREATININE 1.3 H 0.7-1.2 UREA NITROGEN 25 [...] L >60 May 06, 2022 10:00 AM [facility] CBC & DIFF Specim en Type: BLOOD Comment: Manual Differential Performed Ordering Provid er: MODESTA VILLANUEVA Report Released Date/Time: May 06, 2022 10:11 AM Reporting Lab: [facility] [address] [facility] [address] Performing Lab: [facility] [address] [facility] [address] WBC 18.82 H 4.0-11.0 RBC 3.70 L [...] May 06, 2022 10:00 [facility] EXTRA GOLD GEL TUBE Speci men Type: SERUM AM No comment enter ed. Ordering Provid er: LINNEA RAND Report Released Date/Time: May 06, 2022 10:25 AM Reporting [facility] [address] Performing Lab: [facility] [address] EXTRA GOLD GEL TUBE RECEIVED May 06, 2022 09:46 [facility] FINGERSTICK GLUCOSE Speci men Type: BLOOD AM Comment: Mark casillas Nurse Notified Ordering Provid er: MODESTA VILLANUEVA Report Released Date/Time: May 06, 2022 09:59 AM Reporting Lab: [facility] [address] [facility] [address] Performing Lab: [facility] [address] [facility] [address] FINGERSTICK GLUCOSE 369 H 70-100 Apr 30, 2022 [facility] BASIC METABOLIC Specimen Typ e: PLASMA 09:17 AM PANEL+MG No comment enter ed. Ordering Provid er: BILL ROONEY Report Released Date/Time: Apr 30, 2022 08:21 AM Reporting Lab: [facility] [address] [facility] [address] Performing Lab: [facility] [address] CREATININE 1.2 0.7-1.2 UREA NITROGEN 26 8-26 GLUCOSE 140 H 70-100 SODIUM 138 136-145 POTASSIUM 3.8 3.5-5.1 CHLORIDE 107 98-107 CO2 20 L 22-29 CALCIUM 9.4 8.4-10.2 MAGNESIUM 1.7 1.6-2.6 ANION GAP 11 5-15 CREAT EGFR(CKD-EPI) 59 L >60 Apr 30, 2022 09:17 AM [facility] CBC Specim en Type: BLOOD No comment enter ed. Ordering Provid er: TORIBIOBILL L Report Released Date/Time: Apr 30, 2022 08:21 AM Reporting Lab: [facility] [address] [facility] [address] Performing Lab: [facility] [address] [facility] [address] WBC 10.40 4.0-11.0 RBC 3.96 L 4.6-6.2 [...] Source Pressure Rate Mass Index May 08 [employer] [facility] 2021 10:37 [facility] May 08, 259.7 34 [place] 2021 09:14 lb [facility] May 08 [facility] 2021 05:54 [facility] Social History: Smoking Status (Most current) and [...] Comment Facility Feb 02, 2022 09:30 AM [place]-TOBACCO NEVER USED [facility] Use History This section includes a history of the smoking, or tobacco- related health factors, that were collected on or before the date of the Encounter. The data comes from the [place] facility where the Encounter took place. Date/Time Smoking Status/Tobacco Use Comment [facility] Mar 22, 2021 07:45 AM [place]-TOBACCO NEVER USED [facility] [employer] [facility] Oct 02, 2019 10:02 AM [place]-TOBACCO NEVER USED [place] [facility] May 21, 2018 09:05 AM [place]-TO[place]CO [place] US[place] [facility] December 25, 2017 06:14 [...] Apr 18, 2018 ADVANCE DIRECTIVE DISCUSSION [facility] December 23, 2017 CLINICAL WARNING FARHAT SCHMID [facility] May 11, 2003 ADVANCE DIRECTIVE BERT CASILLAS [facility] Radiology Reports: +/- 30 days of [...] the Encounter. The data comes from all [place] treatment facilities. Date/Time Radiology Report Provider Source May 11, 2022 09:46 CHEST 1 VIEW: SONJA OVALLES [facility] AM LUISANA EDDY [id number] -1935 M Exm Date: MAY 11, 2022@09:46 Req Phys: CODIE LEON Loc: OP Unknown /05-13-2022@05:05 Img Loc: MAIN X-RAY Service: PRIMARY CARE - MED OFFICE (Case [id number] COMPLETE) CHEST 1 VIEW (RAD Detailed) CPT:22673 Proc Modifiers : PORTABLE EXAM Reason for Study: resp distress Clinical History: [place] IS NOT under investigation for COVID-19 or is COVID-19 negative Respiratory distress Responsible provider name and phone number to notify for critical findings if other than u ser placing the order and pager listed below: User placing orde rs pager: [phone] cell LAST CREATININE 1.6 H (05/11/22) Report Status: Verified Date Reported: MAY 11, 2022 Date Verified: MAY 11, 2022 Tightening Machine Operator E-Sig:/ES/SONJA OVALLES MD Report: CHEST [...] Primary Interpreting Staff: SONJA OVALLES MD, RADIOLOGIST (Tightening Machine Operator) /CDC May 10, 2022 03:49 CT HEAD (P): RADIOLOGY,OUTSIDE [facility] PM LUISANA EDDY [id number] -1935 M SERVICE Exm Date: MAY 10, 2022@15:49 Req Phys: CODIE LEON Loc: OP Unknown /05-13-2022@05:05 Img Loc: CT IMAGING Service: PRIMARY CARE - MED OFFICE (Case [id number] COMPLETE) CT HEAD/BRAIN W/O CONTRAST (CT Detailed) CPT:67592 Reason for Study: CHANGE IN MENTAL STATUS Clinical History: CHANGE IN MENTAL STATUS. ORDER ADMINISTRATIVELY ENTERED FOLLOWING SYSTEM OUTAGE. Report Status: Verified Date Reported: MAY 10, 2022 Date Verified: MAY 10, 2022 Tightening Machine Operator E-Sig: Report: CT HEAD/BRAIN W/O CONTRAST [PRINTSET] HISTORY: Change in mental status. COMPARISON: CT from 05/07/2022. TECHNIQUE: Contiguous axial CT images from the level of the skull base through the skull apex, with coronal and s agittal reformats, performed at the local [place] facility. 321 images were received by the [place] National Teleradiology Program (NTP) for interpretation. RADIATION [...] study. READING PHYSICIAN: Akash Mccoy M.D. -[phone] 05/10/2022 17:35 PDT [facility] National Teleradiology Program [phone] (For Medical Practitioner Use Only ) Attention Patients / Veterans: If you have ques tions or concerns about these test results, please contact [facility] or primary care team. Primary Interpreting Staff: RADIOLOGY,OUTSIDE SERVICE, Staff Physician / May 08, 2022 07:45 CT T-SPINE (P): RADIOLOGY,OUTSIDE [facility] NUNUNELYLUISANA H [id number] -1935 M SERVICE Exm Date: MAY 08, 2022@19:45 Req Phys: CODIE LEON Loc: OP Unknown /05-13-2022@05:05 Img Loc: CT IMAGING Service: PRIMARY CARE - MED OFFICE (Case [id number] COMPLETE) CT SPINE THORACIC W/O CONTR AST (CT Detailed) CPT:96492 Reason for Study: mrsa bacteremia, spinal surge ry - r/o abscess or discitis Clinical History: [place] IS NOT under investigation for COVID-19 or is COVID-19 negative Defer to radiologist for final CT protocol. Responsible provider name and phone number to n otify for critical findings if other than user placing the order a nd pager listed below: User placing orders pager: [phone] LAST 3: Collection DT Specimen Test Name [...] GFR (eGF 44 L Ref: >=60 Allergies: ([place] only) SIMVASTATIN (Feb 29, 2004) CEPHALEXIN (Mar 01, 2004) Report Status: Verified Date Reported: MAY 08, 2022 Date Verified: MAY 08, 2022 Tightening Machine Operator E-Sig: Report: CT SPINE THORACIC W/O CONTRAST [PRINTSET] HISTORY:MRSA bacteremia NUMBER OF IMAGES:1151 COMPARISON: Correlation with images from recent CT abdomen and pelvis May 06, 2022 TECHNIQUE: A non contrast CT of the thoracic sp ine was performed at the local [place]. Images were subsequently sent to [facility] for interpretation. Axial, coronal and sagittal [...] thoracic level. READING PHYSICIAN: Luisana Webb MD -[id number] 05/08/2022 19:20 PDT [facility] National Teleradiology Program [phone] (For Medical Practitioner Use Only ) Attention Patients / Veterans: If you have ques tions or concerns about these test results, please contact your o [facility] provider or primary care team. Primary Interpreting Staff: RADIOLOGY,OUTSIDE SERVICE, Staff Physician / May 08, 2022 04:48 CHEST 1 VIEW: RADIOLOGY,OUTSIDE [facility] PM LUISANA EDDY [id number] -1935 M SERVICE Exm Date: MAY 08, 2022@16:48 Req Phys: CODIE LEON Loc: OP Unknown /05-13-2022@05:05 Img Loc: MAIN X-RAY Service: PRIMARY CARE - MED OFFICE (Case [id number] COMPLETE) CHEST 1 VIEW (RAD Detailed) CPT:61017 Proc Modifiers : PORTABLE EXAM Reason for Study: dyspnea Clinical History: [place] IS NOT under investigation for COVID-19 or is COVID-19 negative acute worsening of dyspnea Responsible provider name and phone number to notify for critical findings if other than user placing the order and pager listed below: User placing orders pager: [phone] malini cell [phone] LAST CREATININE 1.1 (05/08/22) Report Status: Verified Date Reported: MAY 08, 2022 Date Verified: MAY 08, 2022 Tightening Machine Operator E-Sig: Report: CHEST 1 VIEW HISTORY: dyspnea COMPARISON: 05/06/2022 TECHNIQUE: Frontal view(s) of the chest, submit nola to the [place] National Teleradiology Program ([place]P) for interp retation. FINDINGS: Reduced lung volumes. Progressive cardiomegaly, and vascular congestion as well as diffuse interstitial prom inence with probable small effusions. Impression: Expiratory exam with findings of CHF and mild e [place]anta READING PHYSICIAN: Nghia Menjivar M.D. -[id number] [phone] 05/08/2022 18:57 EDT [facility] National Teleradiology Program [phone] (For Medical Practitioner Use Only ) Attention Patients / Veterans: If you have ques tions or concerns about these test results, please contact your o [facility] provider or primary care team. Primary Interpreting Staff: RADIOLOGY,OUTSIDE SERVICE, Staff Physician / May 07, 2022 10:29 CT HEAD (P): SHANI POLANCO [facility] AM LUISANA EDDY [id number] -1935 M Exm Date: MAY 07, 2022@10:29 Req Phys: BETO AYALA Loc: OP Unknown/0 05-13-2022@05:05 Img Loc: CT IMAGING Service: PRIMARY CARE - MED OFFICE (Case [id number] COMPLETE) CT HEAD/BRAIN W/O CONTRAST ( CT Detailed) CPT:32790 Reason for Study: seizure noted at [facility] Clinical History: IS NOT under investigation for COVID-19 or is COVID-19 negative Defer to radiologist for final CT protocol. Responsible provider name and phone number to n otify for critical findings if other than user placing the order a nd pager listed below: User placing orders pager: [phone] LAST 3: Collection DT Specimen Test Name [...] GFR (eGF 44 L Ref: >=60 Allergies: ([place] only) SIMVASTATIN (Feb 29, 2004) CEPHALEXIN (Mar 01, 2004) Report Status: Verified Date Reported: MAY 07, 2022 Date Verified: MAY 07, 2022 Tightening Machine Operator E-Sig:/ES/SHANI POLANCO MD Report: EXAM: CT HEAD/BRAIN W/O CONTRAST HISTORY: seizure noted at [facility] Reason for Study: seizure noted at [facility] [place] IS NOT under investigation for COVID-19 or is COVID-19 negative Defer to radiologist for final CT prot ocol. Responsible provider name and phone number to notify for cr itical findings if other than user placing the order and pager lis nola below: User placing orders pager: [phone] LAST 3: Collecti on DT Specimen Test [...] Primary Interpreting Staff: SHANI POLANCO MD, RADIOLOGIST (Tightening Machine Operator) /Javed May 06, 2022 11:40 CHEST 1 VIEW: RADIOLOGY,OUTSIDE [facility] AM LUISANA EDDY [id number] -1935 M SERVICE Exm Date: MAY 06, 2022@11:40 Req Phys: MODESTA VILLANUEVA Loc: [facility] EMERGENCY DEPT WALK-IN (Re Img Loc: MAIN X-RAY Service: Unknown (Case [id number] COMPLETE) CHEST 1 VIEW (RAD Detailed) C PT:96091 Proc Modifiers : PORTABLE EXAM Reason for [...] pager listed below: User placing orders pager: [phone] LAST CREATININE 1.2 (04/30/22) Report Status: Verified Date Reported: MAY 06, 2022 Date Verified: MAY 06, 2022 Tightening Machine Operator E-Sig: Report: Technique: Frontal chest. No comparison Impression: Cardiac silhouette is mildly enlarged. There is mild pulmonary venous congestion. No definite pleural effusion . No pneumothorax seen. READING PHYSICIAN: Vern Donnelly M.D. -[id number] 07 05/06/2022 13:26 EDT [facility] National Teleradiology Program [phone] (For Medical Practitioner Use Only ) Attention Patients / Veterans: If you have ques tions or concerns about these test results, please contact your o rdering provider or primary care team. Primary Interpreting Staff: RADIOLOGY,OUTSIDE SERVICE, Staff Physician / May 06, 2022 10:36 CT (AP) ABDOMEN/PELVIS (P): RADIOLOGY,OUTSIDE [facility] AM LUISANA EDDY [id number] -1935 M SERVICE Exm Date: MAY 06, 2022@10:36 Req Phys: MODESTA VILLANUEVA Loc: [facility] EMERGENCY DEPT WALK-IN (Re Img Loc: CT IMAGING Service: Unknown (Case [id number] COMPLETE) CT (AP) ABDOMEN/PELVIS W CONT RAST(CT Detailed) CPT:76654 Reason for Study: fever, back pain Clinical [...] pager listed below: User placing orders pager: [phone] LAST 3: Collection DT Specimen Test Name [...] ESTIMATED GFR(eGF 44 L Ref: >=60 Allergies: ([place] only) SIMVASTATIN (Feb 29, 2004) CEPHALEXIN (Mar 01, 2004) To see allergies from all [facility] locations click Re ports tab>Remote Data>All Available Sites>Clinical Reports>Aller gies. Report Status: Verified Date Reported: MAY 06, 2022 Date Verified: MAY 06, 2022 Tightening Machine Operator E-Sig: Report: Exam: CT (AP) ABDOMEN/PELVIS W CONTRAST [PRINTS ET] Clinical History: fever, back pain Number of images: 918 Comparison: No priors available Technique: The study was protocoled and supervi sed at the local [place] facility. CT of the abdomen and pelvis was performed afte r the uneventful administration of iodinated contrast. Images we re received by the [place] National Teleradiology Program (NTP) for interpretation. Total [...] findings, above. READING PHYSICIAN: Eduin Donaldson M.D. -[phone] 05/06/2022 12:48 [facility] [phone] (For Medical Practitioner Use Only ) Attention Patients / Veterans: If you have ques tions or concerns about these test results, please contact your o [facility] provider or primary care team. Primary Interpreting Staff: RADIOLOGY,OUTSIDE SERVICE, Staff Physician / May 06, 2022 10:35 CT HEAD/BRAIN W/O CONTRAST: RADIOLOGY,OUTSIDE [facility] LUISANA EDDY [id number] -1935 SERVICE Exm Date: MAY 06, 2022@10:35 Req Phys: MODESTA VILLANUEVA Loc: [facility] EMERGENCY DEPT WALK-IN (Re Img Loc: CT IMAGING Service: Unknown (Case 64 COMPLETE) CT HEAD/BRAIN W/O CONTRAST (C T Detailed) CPT:93894 Reason for Study: falls, blood thinner, AMS, se izure Clinical History: falls, blood thinner, AMS, seizure IS under investigation ([facility]I) for COVID- 19 or is COVID-19+ Defer to radiologist for final CT protocol. Responsible provider name and phone number to n otify for critical findings if other than user placing the order a nd pager listed below: User placing orders pager: [phone] LAST 3: Collection DT Specimen Test Name [...] ESTIMATED GFR(eGF 44 L Ref: >=60 Allergies: ([place] only) SIMVASTATIN (Feb 29, 2004) CEPHALEXIN (Mar 01, 2004) To see allergies from all [place] locations click Re ports tab>Remote Data>All Available Sites>Clinical Reports>Aller gies. Report Status: Verified Date Reported: MAY 06, 2022 Date Verified: MAY 06, 2022 Tightening Machine Operator E-Sig: Report: CT HEAD/BRAIN W/O CONTRAST Clinical History: falls, blood thinner, AMS, se izure Number of Images: 532 Comparison: 03/12/2022 Technique: The study was protocoled and supervi sed at the local [place] facility. CT of the head without contrast. I mages were subsequently received by the [place] National Telera diology Program (NTP) for interpretation. [...] T findings. READING PHYSICIAN: Eduin Donaldson M.D. -[phone] 05/06/2022 12:30 [facility] National Teleradiology Program [phone] (For Medical Practitioner Use Only ) Attention Patients / Veterans: If you have ques tions or concerns about these test results, please contact your o rdering provider or primary care team. Primary Interpreting Staff: RADIOLOGY,OUTSIDE SERVICE, Staff Physician / May 06, 2022 10:35 CT CERVICAL SPINE W/O CONTRAST: RADIOLOGY,OUT SIDE [facility] AM LUISANA EDDY [id number] -[phone] M SERVICE Exm Date: MAY 06, 2022@10:35 Req Phys: MODESTA VILLANUEVA Loc: [facility] EMERGENCY DEPT WALK-IN (Re Img Loc: CT IMAGING Service: Unknown (Case 65 COMPLETE) CT CERVICAL SPINE W/O CONTRAS T (CT Detailed) CPT:23265 Reason for Study: falls, blood thinner, AMS, se izure Clinical History: falls, blood thinner, AMS, seizure [place] IS under investigation (PUI) for COVID- 19 or is COVID-19+ Defer to radiologist for final CT protocol. Responsible provider name and phone number to n otify for critical findings if other than user placing the order a nd pager listed below: User placing orders pager: [phone] LAST 3: Collection DT Specimen Test Name [...] ESTIMATED GFR(eGF 44 L Ref: >=60 Allergies: ([place] only) SIMVASTATIN (Feb 29, 2004) CEPHALEXIN (Mar 01, 2004) To see allergies from all [facility] locations click Re ports tab>Remote Data>All Available Sites>Clinical Reports>Aller gies. Report Status: Verified Date Reported: MAY 06, 2022 Date Verified: MAY 06, 2022 Tightening Machine Operator E-Sig: Report: CT CERVICAL SPINE W/O CONTRAST HISTORY:falls, blood thinner, AMS, seizure NUMBER OF IMAGES:770 COMPARISON: None available. TECHNIQUE: A non contrast CT of the cervical sp ine was performed at the local [place]. Images were subsequently sent to [facility] for interpretation. Axial, coronal and sagittal [...] tissues: 11 mm subcutaneous cyst in the [facility] upper neck. Impression: -Motion artifact limits the exam. -Given this limitation, no acute osseous abnorm ality. -Moderate multilevel degenerative change throug hout the cervical spine. -Ancillary findings, above. READING PHYSICIAN: Eduin Donaldson M.D. -[phone] 05/06/2022 12:33 [facility] National Teleradiology Program [phone] (For Medical Practitioner Use Only ) Attention [...] the Encounter. The data comes from all [place] treatment facilities. Date/Time Pathology Report Provider Source May 09, 2022 05:30 AM LR MICROBIOLOGY REPORT: [facility] Reporting Lab: [facility] [CLIA# [id number]] [place] [address] Accession [UID]: [id number] [[id number]] Receiv ed: May 09, 2022@01:35 Collection sample: BLOOD Collection date: Apr 05:30 Provider: CODIE LEON Comment on specimen: LEFT ARM, RECEIVED 2 BLOOD CULTURE BOTTLES Test(s) ordered: CULTURE & SUSCEPTIBILITY...... 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 R TRIMETH/SULFA................. S TETRACYCLINE.................. S CLINDAMYCIN................... S RIFAMPIN...................... S VANCOMYCIN.................... S Bacteriology Remark(s): VANCOMYCIN SHAMIKA: <=0.5 ug/mL THIS REPORT IS FINAL =--=--=--=--=--=--=--=--=--=--=--=--=--= --=--=--=--=--=--=--=--=--=--=--=--=-- Performing Laboratory: Bacteriology Report Performed By: [facility] [CLIA# [id number]] [place] [address] May 08, 2022 03:23 PM LR MICROBIOLOGY REPORT: [facility] Reporting Lab: [facility] [CLIA# [id number] 147] [place] [address] Accession [UID]: [id number] [[id number]] Receiv ed: May 08, 2022@15:41 Collection sample: BLOOD Collection date: Apr 15:23 Provider: CODIE LOEN Comment on specimen: LEFT ARM, RECEIVED 2 BLOOD CULTURE BOTTLES Test(s) ordered: CULTURE & SUSCEPTIBILITY...... completed: May 10, 2022 * BACTERIOLOGY FINAL REPORT => May 10, 2022 16:3 1 TECH CODE: [id number] CULTURE RESULTS: GROWTH SAME THAT OF ANOTHER CULTURE Comment: FOR SUSCEPTIBILITY REPORT SEE PREVIOUS POSITIVE SAME MB 22 [id number] ( 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 from Anaerobic bottle ) ( Recovered from Aerobic bottle ) Bacteriology Remark(s): THIS REPORT IS FINAL =--=--=--=--=--=--=--=--=--=--=--=--=--= --=--=--=--=--=--=--=--=--=--=--=--=-- Performing Laboratory: Bacteriology Report Performed By: [facility] [CLIA# [id number]] [place] [address] May 08, 2022 03:21 PM LR MICROBIOLOGY REPORT: [facility] Reporting Lab: [facility] [CLIA# [id number] 147] [place] [address] Accession [UID]: [id number] [[id number]] Receiv ed: May 08, 2022@15:40 Collection sample: BLOOD Collection date: Apr 15:21 Provider: CODIE LEON Comment on specimen: RT ARM, RECEIVED 2 BLOOD CU LTURE BOTTLES Test(s) ordered: CULTURE & SUSCEPTIBILITY...... completed: May 10, 2022 * BACTERIOLOGY FINAL REPORT => May 10, 2022 16:3 1 TECH CODE: [id number] CULTURE RESULTS: GROWTH SAME THAT OF ANOTHER CULTURE Comment: FOR SUSCEPTIBILITY REPORT SEE PREVIOUS POSITIVE SAME MB 22 [id number] ( 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 from Anaerobic bottle ) ( Recovered from Aerobic bottle ) Bacteriology Remark(s): THIS REPORT IS FINAL =--=--=--=--=--=--=--=--=--=--=--=--=--= --=--=--=--=--=--=--=--=--=--=--=--=-- Performing Laboratory: Bacteriology Report Performed By: [facility] [CLIA# [id number]] [place] [address] May 07, 2022 05:30 AM LR MICROBIOLOGY REPORT: [facility] Reporting Lab: [facility] [CLIA# [id number] 147] [place] [address] Accession [UID]: [id number] [[id number]] Receiv ed: May 07, 2022@01:35 Collection sample: [...] REPORT SEE PREVIOUS POSITIVE SAME MB 22 [id number] ( 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 from Aerobic bottle ) ( Recovered from Anaerobic bottle ) Bacteriology Remark(s): THIS REPORT IS FINAL =--=--=--=--=--=--=--=--=--=--=--=--=--= --=--=--=--=--=--=--=--=--=--=--=--=-- Performing Laboratory: Bacteriology Report Performed By: [facility] [CLIA# [id number]] [place] [address] May 06, 2022 10:51 AM LR MICROBIOLOGY REPORT: [facility] Reporting Lab: [facility] [CLIA# [id number] 147] [place] [address] Accession [UID]: [id number] [[id number]] Receiv ed: May 06, 2022@11:32 Collection sample: [...] Bacteriology Report Performed By: [facility] [CLIA# [id number]] [place] [address] May 06, 2022 10:34 AM LR MICROBIOLOGY REPORT: [facility] Reporting Lab: [facility] [CLIA# [id number]] [place] [address] Accession [UID]: [id number] [[id number]] Receiv ed: May 06, 2022@10:51 Collection sample: BLOOD Collection date: Apr 10:34 Provider: MODESTA VILLANUEVA Comment on specimen: RECEIVED 2 BLOOD CULTURE [facility] Test(s) ordered: CULTURE & SUSCEPTIBILITY...... completed: May 07, 2022 * BACTERIOLOGY FINAL REPORT => May 08, 2022 08:3 0 TECH CODE: [id number] CULTURE RESULTS: STAPHYLOCOCCUS AUREUS METHICILL IN RESISTANT [...] Bacteriology Report Performed By: [facility] [CLIA# [id number]] [place] [address] May 06, 2022 10:00 AM LR MICROBIOLOGY REPORT: [facility] Reporting Lab: [facility] [CLIA# [id number] 147] [place] [address] Accession [UID]: [id number] [[id number]] Receiv ed: May 06, 2022@10:41 Collection sample: [...] REPORT SEE PREVIOUS POSITIVE SAME MB 22 [id number] ( 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 from Anaerobic bottle ) ( Recovered from Aerobic bottle ) Bacteriology Remark(s): THIS REPORT IS FINAL =--=--=--=--=--=--=--=--=--=--=--=--=--= --=--=--=--=--=--=--=--=--=--=--=--=-- Performing Laboratory: Bacteriology Report Performed By: [facility] [CLIA# [id number]] [place] [address]
--- OUTSIDE RECORDS SUMMARY | 2022-05-15 09:36 | XMS_ITS ---
DAILY HOSPITALIZATION DATA [facility] Encounter Summary Created on:May 08, 2022 Patient:LUISANA EDDY Sex:Male :1935 Author Organization Department [facility] rs Address [address] [place] [address] Support Name Relationship Address Phone WADE LORENZO Unavailable [id number] [place] [address] WADE LORENZO Unavailable [address] [place] [address] RAACELI MARSHALL Unavailable [address] [place] [address] MARILIA MARSHALLA Unavailable [address] [place] [address] Insurance Providers: All historical and current Section [...] [place] Aug 19, [id number] Kristel EDDY [facility] (WNR) ADVANTAGE (WNR) 2016 8 [id number] [phone] [facility] 1 [place] Aug 19, [id number] Kristel EDDY [facility] (WNR) ADVANTAGE (WNR) 2017 03 [id number] [phone] [facility] 1 Selected Encounter This section includes the information on record at [facility] for the Encounter. Date/Time Encounter Type Encounter Description Reason Provider Source May 08, 2022 06:46 Inpatient Visit DAILY HOSPITALIZATION DATA [facility] Encounter Template Text not used by [facility] Plan of Treatment: Future Appointments (+ 6 months) and Future Tests (+/- 45 days) The Plan of Treatment section includes future care activities for the [facility] This section includes future appointments [...] 06:15 PM AMBULATORY - NONE [facility] Jul 23, 2022 08:00 AM AMBULATORY - NEUROLOGY [facility] Active, Pending, and Scheduled Orders [...] The data comes from all [facility] treatment [facility]. Test Date/Time Test Type Test Details Facility Name Apr 30, 2022 08:21 Laboratory - Chemistry URINALYSIS URINE WC ON CE [facility] AM Order Apr 30, 2022 08:21 Laboratory - CULTURE & SUSCEPTIBILITY [facility] AM Microbiology Order URINE WC May 06, 2022 12:00 Laboratory - Blood ABO/RH - LAB BLOOD [facility] AM Bank Order May 06, 2022 10:11 Laboratory - Blood TYPE & SCREEN - LAB [facility] AM Bank Order BLOOD WC May 06, 2022 10:27 Pharmacy [facility] AM Medication Order May 06, [...] 2022 09:07 Laboratory - CULTURE & SUSCEPTIBILITY [facility] AM Microbiology Order BLOOD WC May 11, 2022 09:07 Laboratory - CULTURE & SUSCEPTIBILITY [facility] AM Microbiology Order BLOOD WC May 11, 2022 09:38 Laboratory - Chemistry EOSINOPHIL SMEAR,URINE [facility] AM Order URINE WC ONCE May 11, 2022 09:38 Laboratory - Chemistry URINALYSIS URINE WC ON CE [facility] AM Order May 11, 2022 09:38 Laboratory - Chemistry FENA URINE WC ONCE MIN [facility] AM Order Lab Results: [...] Range Comment May 11, 2022 11:13 [facility] FINGERSTICK GLUCOSE Speci men Type: BLOOD AM Comment: Mark casillas Nurse Notified Ordering Provid er: CODIE LEON Report Released Date/Time: May 11, 2022 11:53 AM Reporting Lab: [facility] [address] [facility] [address] Performing Lab: [facility] [address] [facility] [address] FINGERSTICK GLUCOSE 367 H 70-100 May 11, 2022 07:05 [facility] BASIC METABOLIC Specimen Type: PLASMA AM PANEL+MG No comment enter ed. Ordering Provid er: OG DIAL Report Released Date/Time: May 11, 2022 04:46 AM Reporting Lab: [facility] [address] [facility] [address] Performing Lab: [facility] [address] [facility] [address] CREATININE 1.6 H 0.7-1.2 UREA NITROGEN 28 H 8-26 GLUCOSE 396 H 70-100 SODIUM 150 H 136-145 POTASSIUM 3.7 3.5-5.1 CHLORIDE 120 H 98-107 CO2 23 22-29 CALCIUM 8.4 8.4-10.2 MAGNESIUM 2.1 1.6-2.6 ANION GAP 7 5-15 CREAT EGFR(CKD-EPI) 42 L >60 May 11, 2022 07:[address] [facility] BNP Specim en Type: PLASMA No comment enter ed. Ordering Provid er: CODIE LEON Report Released Date/Time: May 11, 2022 09:15 AM Reporting Lab: [facility] [address] [facility] [address] Performing Lab: [facility] [address] [facility] [address] BNP 59 <99 May 11, 2022 07:[address] [facility] CK,TOTAL Specim en Type: PLASMA No comment enter ed. Ordering Provid er: CODIE LEON Report Released Date/Time: May 11, 2022 09:08 AM Reporting Lab: [facility] [address] [facility] [address] Performing Lab: [facility] [address] [facility] [address] CK,TOTAL 16 L 39-208 May 11, 2022 07:[address] [facility] CBC Specim en Type: BLOOD No comment enter ed. Ordering Provid er: OG DIAL Report Released Date/Time: May 11, 2022 04:46 AM Reporting Lab: [facility] [address] [facility] [address] Performing Lab: [facility] [address] [facility] [address] WBC 15.93 H 4.0-11.0 RBC 3.60 L 4.6-6.2 HGB 11.2 L 13.5-17.9 HCT 35.3 L 41-54 MCV 98.1 80-100 MCH 31.1 27-33 MCHC 31.7 L 32.0-37.5 PLT 231 150-400 MPV 11.2 H 7.4-10.4 RDW 15.2 H 11.5-14.5 May 11, 2022 07:05 [facility] LIVER FUNCTION TESTS Spec imen Type: PLASMA AM No comment enter ed. Ordering Provid er: CODIE LEON Report Released Date/Time: May 11, 2022 09:08 AM Reporting Lab: [facility] [address] [facility] [address] Performing Lab: [facility] [address] [facility] [address] BILIRUBIN, TOTAL 1.6 H 0.2-1.2 ALKALINE PHOSPHATASE 102 40-150 ALT/SGPT 42 <55 AST/SGOT 30 <34 GAMMA GTP 52 <64 DIR. BILIRUBIN 1.2 H <0.5 May 11, 2022 06:14 [facility] FINGERSTICK GLUCOSE Speci men Type: BLOOD AM Comment: Mark casillas Nurse Notified Ordering Provid er: CODIE LEON Report Released Date/Time: May 11, 2022 06:42 AM Reporting Lab: [facility] [address] [facility] [address] Performing Lab: [facility] [address] [facility] [address] FINGERSTICK GLUCOSE 345 H 70-100 May 11, 2022 02:24 [facility] FINGERSTICK GLUCOSE Speci men Type: BLOOD AM Comment: Mark casillas Ordering Provid er: CODIE LEON Report Released Date/Time: May 11, 2022 02:44 AM Reporting Lab: [facility] [address] [facility] [address] Performing Lab: [facility] [address] [facility] [address] FINGERSTICK GLUCOSE 375 H 70-100 May 10, 2022 08:38 [facility] FINGERSTICK GLUCOSE Speci men Type: BLOOD PM Comment: Mark casillas Ordering Provid er: CODIE LEON Report Released Date/Time: May 11, 2022 12:31 AM Reporting Lab: [facility] [address] [facility] [address] Performing Lab: [facility] [address] [facility] [address] FINGERSTICK GLUCOSE 346 H 70-100 May 10, 2022 05:05 [facility] FINGERSTICK GLUCOSE Speci men Type: BLOOD PM Comment: Mark casillas Nurse Notified Ordering Provid er: CODIE LEON Report Released Date/Time: May 10, 2022 11:50 PM Reporting Lab: [facility] [address] [facility] [address] Performing Lab: [facility] [address] [facility] [address] FINGERSTICK GLUCOSE 245 H 70-100 May 10, 2022 02:00 [facility] VANCOMYCIN (TROUGH) Speci men Type: PLASMA PM No comment enter ed. Ordering Provid er: CODIE LEON Report Released Date/Time: May 11, 2022 01:34 AM Reporting Lab: [facility] [address] [facility] [address] Performing Lab: [facility] [address] [facility] [address] VANCOMYCIN (TROUGH) 31.8 H 10.0-15.0 May 10, 2022 [facility] BASIC METABOLIC Specimen Typ e: PLASMA 02:00 PM PANEL+MG No comment enter ed. Ordering Provid er: CODIE LEON Report Released Date/Time: May 11, 2022 01:34 AM Reporting Lab: [facility] [address] Performing Lab: [facility] [address] CREATININE 1.1 .7-1.2 UREA NITROGEN 22 8-26 GLUCOSE 279 H 70-100 SODIUM 150 H 136-145 POTASSIUM 3.2 L 3.5-5.1 CHLORIDE 116 H 98-107 CO2 23 22-29 CALCIUM 8.5 8.4-10.2 MAGNESIUM 2.0 1.6-2.6 ANION GAP 11 5-15 CREAT EGFR(CKD-EPI) 65 >60 May 10, 2022 01:[address] [facility] CBC & DIFF Specim en Type: BLOOD Comment: Automa nola Differential Performed Ordering Provid er: MD ESTEBAN Report Released Date/Time: May 10, 2022 08:52 PM Reporting Lab: [facility] [address] Performing Lab: [facility] [address] WBC 16.24 H 4.0-11.0 RBC 3.76 L [...] H 0-0.1 May 10, 2022 11:07 [facility] FINGERSTICK GLUCOSE Speci men Type: BLOOD AM Comment: Mark casillas Nurse Notified Ordering Provid er: CODIE LEON Report Released Date/Time: May 11, 2022 12:31 AM Reporting Lab: [facility] [address] [facility] [address] Performing Lab: [facility] [address] [facility] [address] FINGERSTICK GLUCOSE 253 H 70-100 May 10, 2022 06:16 [facility] FINGERSTICK GLUCOSE Speci men Type: BLOOD AM Comment: Mark casillas Nurse Notified Ordering Provid er: CODIE LEON Report Released Date/Time: May 10, 2022 11:50 PM Reporting Lab: [facility] [address] [facility] [address] Performing Lab: [facility] [address] [facility] [address] FINGERSTICK GLUCOSE 271 H 70-100 May 09, 2022 09:07 [facility] FINGERSTICK GLUCOSE Speci men Type: BLOOD PM Comment: Mark casillas Ordering Provid er: CODIE LEON Report Released Date/Time: May 10, 2022 11:50 PM Reporting Lab: [facility] [address] [facility] [address] Performing Lab: [facility] [address] [facility] [address] FINGERSTICK GLUCOSE 209 H 70-100 May 09, 2022 05:33 [facility] FINGERSTICK GLUCOSE Speci men Type: BLOOD PM Comment: Mark casillas Nurse Notified Ordering Provid er: CODIE LEON Report Released Date/Time: May 09, 2022 05:53 PM Reporting Lab: [facility] [address] [facility] [address] Performing Lab: [facility] [address] [facility] [address] FINGERSTICK GLUCOSE 251 H 70-100 May 09, 2022 02:09 [facility] VANCOMYCIN (PEAK) Specime n Type: SERUM PM No comment enter ed. Ordering Provid er: AMARIS DE JESUS Report Released Date/Time: May 09, 2022 09:33 AM Reporting Lab: [facility] [address] [facility] [address] Performing Lab: [facility] [address] [facility] [address] VANCOMYCIN (PEAK) 24.2 20.0-40.0 May 09, 2022 11:19 [facility] FINGERSTICK GLUCOSE Speci men Type: BLOOD AM Comment: Mark casillas Nurse Notified Ordering Provid er: CODIE LEON Report Released Date/Time: May 09, 2022 11:38 AM Reporting Lab: [facility] [address] Performing Lab: [facility] [address] FINGERSTICK GLUCOSE 240 H 70-100 May 09, 2022 08:13 [facility] VANCOMYCIN (TROUGH) Speci men Type: SERUM AM No comment enter ed. Ordering Provid er: AMRAIS DE JESUS Report Released Date/Time: May 08, 2022 11:14 AM Reporting Lab: [facility] [address] Performing Lab: [facility] [address] VANCOMYCIN (TROUGH) 16.1 H 10.0-15.0 May 09, 2022 05:[address] [facility] CBC & DIFF Specim en Type: BLOOD Comment: Automa nola Differential Performed Ordering Provid er: CODIE LEON Report Released Date/Time: May 08, 2022 05:27 PM Reporting Lab: [facility] [address] Performing Lab: [facility] [address] WBC 14.92 H 4.0-11.0 RBC 3.41 L [...] 0.16 H 0-0.1 May 09, 2022 [facility] COMPREHENSIVE METABOLIC Spec imen Type: PLASMA 05:32 AM PANEL+MG No comment enter ed. Ordering Provid er: MALINI,CODIE E Report Released Date/Time: May 08, 2022 05:27 PM Reporting Lab: [facility] [address] [facility] [address] Performing Lab: [facility] [address] [address] CREATININE 1.2 0.7-1.2 UREA NITROGEN 25 8-26 [...] L >60 May 09, 2022 05:16 [facility] FINGERSTICK GLUCOSE Speci men Type: BLOOD AM Comment: Mark casillas Nurse Notified Ordering Provid er: CODIE LEON Report Released Date/Time: May 09, 2022 07:27 AM Reporting Lab: [facility] [address] [facility] [address] FINGERSTICK GLUCOSE 295 H 70-100 May 08, 2022 09:[address] [facility] EXTRA MINT TUBE Specim en Type: PLASMA No comment enter ed. Ordering Provid er: MD ESTEBAN Report Released Date/Time: May 08, 2022 09:32 PM Reporting Lab: [facility] [address] Performing Lab: [facility] [address] [facility] [address] EXTRA MINT TUBE RECEIVED May 08, 2022 09:[address] [facility] EXTRA PURPLE TUBE Spec imen Type: BLOOD No comment enter ed. Ordering Provid er: MD ESTEBAN Report Released Date/Time: May 08, 2022 09:32 PM Reporting Lab: [facility] [address] [facility] [address] Per[facility]: [facility] [address] EXTRA PURPLE TUBE RECEIVED May 08, 2022 09:32 [facility] EXTRA GOLD GEL TUBE Speci men Type: SERUM PM No comment enter ed. Ordering Provid er: MD ESTEBAN Report Released Date/Time: May 08, 2022 09:32 PM Reporting Lab: [facility] [address] [facility] [address] Performing Lab: [facility] [address] [facility] [address] EXTRA GOLD GEL TUBE RECEIVED May 08, 2022 09:[address] [facility] EXTRA BLUE TUBE Specim en Type: PLASMA No comment enter ed. Ordering Provid er: MD ESTEBAN Report Released Date/Time: May 08, 2022 09:32 PM Reporting Lab: [facility] [address] [facility] [address] Performing Lab: [facility] [address] [facility] [address] EXTRA BLUE TUBE RECEIVED May 08, 2022 09:[address] [facility] EXTRA BRASWELL TUBE Specim en Type: PLASMA No comment enter ed. Ordering Provid er: MD ESTEBAN Report Released Date/Time: May 08, 2022 09:37 PM Reporting Lab: [facility] [address] [facility] [address] Performing Lab: [facility] [address] [facility] [address] EXTRA BRASWELL TUBE RECEIVED May 08, 2022 09:[address] [facility] BNP Specim en Type: PLASMA No comment enter ed. Ordering Provid er: OG DIAL Report Released Date/Time: May 08, 2022 09:50 PM Reporting Lab: [facility] [address] [facility] [address] Performing Lab: [facility] [address] [facility] [address] BNP 897 H <99 May 08, 2022 09:[address] [facility] LACTIC ACID Specim en Type: PLASMA No comment enter ed. Ordering Provid er: OG DIAL Report Released Date/Time: May 08, 2022 09:49 PM Reporting Lab: [facility] [address] [facility] [address] Performing Lab: [facility] [address] [facility] [address] LACTIC ACID 2.5 H 0.5-2.2 May 08, 2022 09:[address] [facility] CBC Specim en Type: BLOOD No comment enter ed. Ordering Provid er: OG DIAL Report Released Date/Time: May 08, 2022 09:50 PM Reporting Lab: [facility] [address] [facility] [address] Performing Lab: [facility] [address] WBC 18.54 H 4.0-11.0 RBC 3.68 L 4.6-6.2 HGB 11.5 L 13.5-17.9 HCT 35.1 L 41-54 MCV 95.4 80-100 MCH 31.3 27-33 MCHC 32.8 32.0-37.5 PLT 221 150-400 MPV 11.1 H 7.4-10.4 RDW 14.9 H 11.5-14.5 May 08, 2022 [facility] COMPREHENSIVE METABOLIC Spec imen Type: PLASMA 09:32 PM PANEL+MG No comment enter ed. Ordering Provid er: OG DIAL Report Released Date/Time: May 08, 2022 09:50 PM Reporting Lab: [facility] [address] Performing Lab: [facility] [address] CREATININE 1.3 H 0.7-1.2 UREA NITROGEN 26 [...] L >60 May 08, 2022 09:[address] [facility] BLOOD GASES Specim en Type: VENOUS BLOOD Comment: O2 THE RAPY = 3L PM Ordering Provid er: OG DIAL Report Released Date/Time: May 08, 2022 09:50 PM Reporting Lab: [facility] [address] Performing Lab: [facility] [address] PH 7.36 7.33-7.43 PCO2 47 41-51 BICARBONATE 24.4 21.0-30.0 PO2 31 L 35-40 OXYGEN SATURATION 54.7 L 70.0-75.0 PH(TEMP CORRECTED) 7.37 7.33-7.43 PCO2(TEMP CORRECTED) 46 41-51 PO2(TEMP CORRECTED) 31 L 35-40 PATIENT TEMPERATURE 36.7 May 08, 2022 08:27 [facility] FINGERSTICK GLUCOSE Speci men Type: BLOOD PM Comment: Mark casillas Nurse Notified Ordering Provid er: CODIE LEON Report Released Date/Time: May 08, 2022 08:55 PM Reporting Lab: [facility] [address] [facility] [address] Performing Lab: [facility] [address] [facility] [address] FINGERSTICK GLUCOSE 272 H 70-100 May 08, 2022 06:56 [facility] FINGERSTICK GLUCOSE Speci men Type: BLOOD PM Comment: Mark casillas Ordering Provid er: CODIE LEON Report Released Date/Time: May 08, 2022 07:08 PM Reporting Lab: [facility] [address] [facility] [address] Performing Lab: [facility] [address] [facility] [address] FINGERSTICK GLUCOSE 262 H 70-100 May 08, 2022 04:50 [facility] FINGERSTICK GLUCOSE Speci men Type: BLOOD PM Comment: Nurse Notified Ordering Provid er: OCDIE LEON Report Released Date/Time: May 08, 2022 05:14 PM Reporting Lab: [facility] [address] [facility] [address] Performing Lab: [facility] [address] [facility] [address] FINGERSTICK GLUCOSE 330 H 70-100 May 08, 2022 11:21 [facility] FINGERSTICK GLUCOSE Speci men Type: BLOOD AM Comment: Mark casillas Nurse Notified Ordering Provid er: CODIE LEON Report Released Date/Time: May 08, 2022 11:51 AM Reporting Lab: [facility] [address] [facility] [address] Performing Lab: [facility] [address] [facility] [address] FINGERSTICK GLUCOSE 231 H 70-100 May 08, 2022 07:[address] [facility] CBC & DIFF Specim en Type: BLOOD Comment: Automa nola Differential Performed Ordering Provid er: BETO AYALA Report Released Date/Time: May 07, 2022 12:28 PM Reporting Lab: [facility] [address] Performing Lab: [facility] [address] WBC 16.29 H 4.0-11.0 RBC 3.38 L [...] 0.26 H 0-0.1 May 08, 2022 [facility] PROTHROMBIN TIME/INR Specime n Type: PLASMA 07:25 AM No comment enter ed. Ordering Provid er: BETO AYALA Report Released Date/Time: May 07, 2022 12:28 PM Reporting Lab: [facility] [address] Performing Lab: [facility] [address] .INR 1.2 H 0.8-1.1 .PT 14.2 H 9.4-12.5 May 08, 2022 [facility] COMPREHENSIVE METABOLIC Spec imen Type: PLASMA 07:25 AM PANEL+MG No comment enter ed. Ordering Provid er: BETO AYALA Report Released Date/Time: May 07, 2022 12:28 PM Reporting Lab: [facility] [address] Performing Lab: [facility] [address] CREATININE 1.1 0.7-1.2 UREA NITROGEN 27 H [...] 65 >60 May 08, 2022 06:53 [facility] FINGERSTICK GLUCOSE Speci men Type: BLOOD AM Comment: Mark casillas Ordering Provid er: CODIE LEON Report Released Date/Time: May 08, 2022 07:18 AM Reporting Lab: [facility] [address] [facility] [address] Performing Lab: [facility] [address] [facility] [address] FINGERSTICK GLUCOSE 276 H 70-100 May 07, 2022 08:36 [facility] FINGERSTICK GLUCOSE Speci men Type: BLOOD PM Comment: Nurse Notified Ordering Provid er: CODIE LEON Report Released Date/Time: May 08, 2022 12:29 AM Reporting Lab: [facility] [address] [facility] [address] Performing Lab: [facility] [address] [facility] [address] FINGERSTICK GLUCOSE 282 H 70-100 May 07, 2022 07:[address] [facility] LACTIC ACID Specim en Type: PLASMA No comment enter ed. Ordering Provid er: BETO AYALA Report Released Date/Time: May 07, 2022 06:28 PM Reporting Lab: [facility] [address] [facility] [address] Performing Lab: [facility] [address] [facility] [address] LACTIC ACID 2.0 0.5-2.2 May 07, 2022 04:46 [facility] FINGERSTICK GLUCOSE Speci men Type: BLOOD PM Comment: Nurse Notified Ordering Provid er: BETO AYALA Report Released Date/Time: May 07, 2022 05:00 PM Reporting Lab: [facility] [address] [facility] [address] Performing Lab: [facility] [address] [facility] [address] FINGERSTICK GLUCOSE 274 H 70-100 May 07, 2022 12:47 [facility] FINGERSTICK GLUCOSE Speci men Type: BLOOD PM Comment: Mark casillas Nurse Notified Ordering Provid er: BETO AYALA Report Released Date/Time: May 07, 2022 05:32 PM Reporting Lab: [facility] [address] [facility] [address] Performing Lab: [facility] [address] [facility] [address] FINGERSTICK GLUCOSE 309 H 70-100 May 07, 2022 06:35 [facility] FINGERSTICK GLUCOSE Speci men Type: BLOOD AM Comment: Mark casillas Nurse Notified Ordering Provid er: GAYLA DOMINGUEZ Report Released Date/Time: May 07, 2022 06:46 AM Reporting Lab: [facility] [address] [facility] [address] Performing Lab: [facility] [address] [facility] [address] FINGERSTICK GLUCOSE 352 H 70-100 May 07, 2022 06:[address] [facility] ALBUMIN Specim en Type: PLASMA No comment enter ed. Ordering Provid er: GAYLA DOMINGUEZ Report Released Date/Time: May 06, 2022 06:33 PM Reporting Lab: [facility] [address] [facility] [address] Performing Lab: [facility] [address] [facility] [address] ALBUMIN 3.0 L 3.5-5.2 May 07, 2022 [facility] COMPREHENSIVE METABOLIC Spec imen Type: PLASMA 06:15 AM PANEL+MG No comment enter ed. Ordering Provid er: GAYLA DOMINGUEZ Report Released Date/Time: May 06, 2022 09:11 PM Reporting Lab: [facility] [address] [facility] [address] Performing Lab: [facility] [address] [facility] [address] CREATININE 1.2 0.7-1.2 UREA NITROGEN 25 8-26 [...] >60 May 07, 2022 06:[address] [facility] CBC & DIFF Specim en Type: BLOOD Comment: Manual Differential Performed Ordering Provid er: GAYLA DOMINGUEZ Report Released Date/Time: May 06, 2022 09:11 PM Reporting Lab: [facility] [address] [facility] [address] Performing Lab: [facility] [address] [facility] [address] WBC 20.25 H 4.0-11.0 RBC 3.54 L [...] NORMOCHROMIC May 07, 2022 12:[address] [facility] LACTIC ACID Specim en Type: PLASMA No comment enter ed. Ordering Provid er: GAYLA DOMINGUEZ Report Released Date/Time: May 06, 2022 07:13 PM Reporting Lab: [facility] [address] [facility] [address] Performing Lab: [facility] [address] [facility] [address] LACTIC ACID 2.7 H 0.5-2.2 May 06, 2022 10:45 [facility] FINGERSTICK GLUCOSE Speci men Type: BLOOD PM Comment: Mark casillas Nurse Notified Ordering Provid er: GAYLA DOMINGUEZ Report Released Date/Time: May 07, 2022 12:08 AM Reporting Lab: [facility] [address] [facility] [address] Performing Lab: [facility] [address] [facility] [address] FINGERSTICK GLUCOSE 320 H 70-100 May 06, 2022 06:53 [facility] MRSA SURVL NARES Specimen Type: NARES PM DNA No comment enter ed. Ordering Provid er: GAYLA DOMINGUEZ Report Released Date/Time: May 06, 2022 06:33 PM Reporting Lab: [facility] [address] [facility] [address] Performing Lab: [facility] [address] [facility] [address] MRSA SURVL NARES DNA POSITIVE HH Negative May 06, 2022 06:[address] [facility] LACTIC ACID Specim en Type: PLASMA No comment enter ed. Ordering Provid er: GAYLA DOMINGUEZ Report Released Date/Time: May 06, 2022 06:04 PM Reporting Lab: [facility] [address] [facility] [address] Performing Lab: [facility] [address] [facility] [address] LACTIC ACID 3.1 H 0.5-2.2 May 06, 2022 06:51 [facility] CARDIAC TROPONIN I Specim en Type: PLASMA PM No comment enter ed. Ordering Provid er: GAYLA DOMINGUEZ Report Released Date/Time: May 06, 2022 06:05 PM Reporting Lab: [facility] [address] [facility] [address] Performing Lab: [facility] [address] [facility] [address] CARDIAC TROPONIN I <0.028 <0.028 May 06, 2022 06:51 [facility] EXTRA GOLD GEL TUBE Speci men Type: SERUM PM No comment enter ed. Ordering Provid er: GAYLA DOMINGUEZ Report Released Date/Time: May 06, 2022 06:52 PM Reporting Lab: [facility] [address] [facility] [address] Performing Lab: [facility] [address] [facility] [address] EXTRA GOLD GEL TUBE RECEIVED May 06, 2022 06:51 [facility] C-REACTIVE PROTEIN Specim en Type: PLASMA PM No comment enter ed. Ordering Provid er: GAYLA DOMINGUEZ Report Released Date/Time: May 06, 2022 09:29 PM Reporting Lab: [facility] [address] [facility] [address] Performing Lab: [facility] [address] C-REACTIVE PROTEIN 392.40 H <5.00 May 06, 2022 10:[address] [facility] URINALYSIS Specim en Type: URINE No comment enter ed. Ordering Provid er: MODESTA VILLANUEVA Report Released Date/Time: May 06, 2022 10:11 AM Reporting Lab: [facility] [address] Performing Lab: [facility] [address] URINE COLOR YELLOW SPECIFIC GRAVITY 1.020 1.003-1.035 [...] 500 NEGATIVE May 06, 2022 10:24 [facility] COVID-19 DIAGNOSTIC Speci men Type: NASOPHARYNGEAL AM PANEL (CEPHEID) Comment: Cephei d GeneXpert (618) Ordering Provid er: MODESTA VILLANUEVA Report Released Date/Time: May 06, 2022 10:11 AM Reporting Lab: [facility] [address] Performing Lab: [facility] [address] COVID-19 (CEPHEID) Not Detected Not Dete cted May 06, 2022 10:[address] [facility] POC ABG/LACTATE Specim en Type: VENOUS BLOOD No comment enter ed. Ordering Provid er: MODESTA VILLANUEVA Report Released Date/Time: May 06, 2022 10:22 AM Reporting Lab: [facility] [address] Performing Lab: [facility] [address] POC PH 7.410 7.31-7.41 POC PCO2 28.9 L 35.00-45.00 POC PO2 82 H 35.0-40.0 POC TCO2 19 L 24.0-29.0 POC HCO3 18.3 L 23.0-28.0 POC BE ECT -6 L -2 POC SO2 96 H 70-75 POC LACTATE 3.62 0.90-1.70 May 06, 2022 10:[address] [facility] PHOSPHORUS Specim en Type: PLASMA No comment enter ed. Ordering Provid er: MODESTA VILLANUEVA Report Released Date/Time: May 06, 2022 10:11 AM Reporting Lab: [facility] [address] [facility] [address] Performing Lab: [facility] [address] [facility] [address] PHOSPHORUS 2.5 2.3-4.7 May 06, 2022 10:00 [facility] ACT PART THROMBO TIME Spe cimen Type: PLASMA AM No comment enter ed. Ordering Provid er: MODESTA VILLANUEVA Report Released Date/Time: May 06, 2022 10:11 AM Reporting Lab: [facility] [address] [facility] [address] Performing Lab: [facility] [address] [facility] [address] APTT 37.8 H 25.1-36.5 May 06, 2022 10:00 [facility] PROTHROMBIN TIME/INR Spec imen Type: PLASMA AM No comment enter ed. Ordering Provid er: MODESTA VILLANUEVA Report Released Date/Time: May 06, 2022 10:11 AM Reporting Lab: [facility] [address] [facility] [address] Performing Lab: [facility] [address] [facility] [address] .INR 2.5 H 0.8-1.1 .PT 29.2 H 9.4-12.5 May 06, 2022 10:00 [facility] CARDIAC TROPONIN I Specim en Type: PLASMA AM Comment: Critic al Value Reported To: BROOKS COTE 05-06-2022 @1053 BY MBB. Critical value report confirmed. Ordering Provid er: MODESTA VILLANUEVA Report Released Date/Time: May 06, 2022 10:11 AM Reporting Lab: [facility] [address] [facility] [address] Performing Lab: [facility] [address] [facility] [address] CARDIAC TROPONIN I 0.035 HH <0.028 May 06, 2022 10:[address] [facility] PROCALCITONIN Specim en Type: PLASMA No comment enter ed. Ordering Provid er: MODESTA VILLANUEVA Report Released Date/Time: May 06, 2022 10:11 AM Reporting Lab: [facility] [address] Performing Lab: [facility] [address] PROCALCITONIN 22.29 H <0.09 May 06, 2022 [facility] COMPREHENSIVE METABOLIC Spec imen Type: PLASMA 10:00 AM PANEL+MG Comment: Manual Differential Performed Ordering Provid er: MODESTA VILLANUEVA Report Released Date/Time: May 06, 2022 10:11 AM Reporting Lab: [facility] [address] Performing Lab: [facility] [address] CREATININE 1.3 H 0.7-1.2 UREA NITROGEN 25 [...] L >60 May 06, 2022 10:[address] [facility] CBC & DIFF Specim en Type: BLOOD Comment: Manual Differential Performed Ordering Provid er: MODESTA VILLANUEVA Report Released Date/Time: May 06, 2022 10:11 AM Reporting Lab: [facility] [address] Performing Lab: [facility] [address] WBC 18.82 H 4.0-11.0 RBC 3.70 L [...] MORPHOLOGY PRESENT May 06, 2022 10:[address] [facility] LIPASE Specim en Type: PLASMA No comment enter ed. Ordering Provid er: MODESTA VILLANUEVA Report Released Date/Time: May 06, 2022 10:11 AM Reporting Lab: [facility] [address] [facility] [address] Performing Lab: [facility] [address] [facility] [address] LIPASE <4 <60 May 06, 2022 10:00 [facility] EXTRA GOLD GEL TUBE Speci men Type: SERUM AM No comment enter ed. Ordering Provid er: LINNEA RAND Report Released Date/Time: May 06, 2022 10:25 AM Reporting Lab: [facility] [address] [facility] [address] Performing Lab: [facility] [address] [facility] [address] EXTRA GOLD GEL TUBE RECEIVED May 06, 2022 09:46 [facility] FINGERSTICK GLUCOSE Speci men Type: BLOOD AM Comment: Mark casillas Nurse Notified Ordering Provid er: MODESTA VILLANUEVA Report Released Date/Time: May 06, 2022 09:59 AM Reporting Lab: [facility] [address] [facility] [address] Performing Lab: [facility] [address] [facility] [address] FINGERSTICK GLUCOSE 369 H 70-100 Apr 30, 2022 09:[address] [facility] CBC Specim en Type: BLOOD No comment enter ed. Ordering Provid er: BILL ROONEY Report Released Date/Time: Apr 30, 2022 08:21 AM Reporting Lab: [facility] [address] [facility] [address] Performing Lab: [facility] [address] [facility] [address] WBC 10.40 4.0-11.0 RBC 3.96 L 4.6-6.2 HGB 12.3 L 13.5-17.9 HCT 37.8 L 41-54 MCV 95.5 80-100 MCH 31.1 27-33 MCHC 32.5 32.0-37.5 PLT 286 150-400 MPV 10.1 7.4-10.4 RDW 14.6 H 11.5-14.5 Apr 30, 2022 [facility] BASIC METABOLIC Specimen Typ e: PLASMA 09:17 AM PANEL+MG No comment enter ed. Ordering Provid er: BILL ROONEY Report Released Date/Time: Apr 30, 2022 08:21 AM Reporting Lab: [facility] [address] [facility] [address] Performing Lab: [facility] [address] CREATININE 1.2 0.7-1.2 UREA NITROGEN 26 8-26 [...] Source Pressure Rate Mass Index May 08 [facility] 2021 10:37 [facility] May 08, 259.7 34 [facility] 2021 09:14 lb [facility] May 08 [facility] 2021 05:54 [facility] Social History: Smoking Status (Most current) and Tobacco Use (All prior to encounter date) This section includes the most current, and the historical, smoking and tobacco-related health factors from the [facility] facility where the Encounter took place.Current Smoking Status This section includes the most current smoking, or tobacco-related health factor, from the [facility] facility where the Encounter took place. Date/Time Current Smoking Status Comment Facility Feb 02, 2022 09:30 AM [facility] Tobacco Use History This section includes a history of the smoking, or tobacco- related health factors, that were collected on or before the date of the Encounter. The data comes from the [place] facility where the Encounter took place. Date/Time Smoking Status/Tobacco Use [place] [facility] [place] 22, 2021 07:45 AM [facility] Oct 02, 2019 10:02 AM [place]-TOBACCO NEVER USED [place] [facility] May 21, 2018 09:05 AM [place]-TOBACCO NEVER USED [place] [facility] December 25, 2017 06:14 PM INPT NO TOBACCO USE IN LAST [address] [facility] Oct 01, 2017 07:34 AM LIFETIME NON-TOBACCO USER [facility] Sep 28, 2016 08:44 AM LIFETIME NON-TOBACCO USER [facility] Oct 14, 2015 07:52 AM LIFETIME NON-TOBACCO USER [facility] Oct 11, 2014 07:59 AM LIFETIME NON-TOBACCO USER [facility] January 15, 2007 07:55 AM LIFETIME NON-TOBACCO USER [facility] Advance Directives: All historical and [...] 2018 ADVANCE DIRECTIVE LARISSA SIGALA [facility] Apr 18, 2018 ADVANCE DIRECTIVE DISCUSSION JOVONRAEN [facility] December 23, 2017 CLINICAL WARNING FARHAT SCHMID [employer] May 11, [address] BERT [address] [facility] Radiology Reports: +/- 30 days [...] 2022 09:46 CHEST 1 VIEW: SONJA OVALLES [employer] AM LUISANA EDDY [id number] -1935 M Exm Date: MAY 11, 2022@09:46 Req Phys: CODIE LEON Loc: OP Unknown /05-13-2022@05:05 Img Loc: MAIN X-RAY Service: PRIMARY CARE - MED OFFICE (Case [id number] COMPLETE) CHEST 1 VIEW (RAD Detailed) CPT:09678 Proc Modifiers : PORTABLE EXAM Reason for Study: resp distress Clinical History: [place] IS NOT under investigation for COVID-19 or is COVID-19 negative Respiratory distress Responsible provider name and phone number to notify for critical findings if other than u ser placing the order and pager listed below: User placing orde rs pager: [phone] cell LAST CREATININE 1.6 H (05/11/22) Report Status: Verified Date Reported: MAY 11, 2022 Date Verified: MAY 11, 2022 Commercial Sales Representative E-Sig:/ES/SONJA OVALLES MD Report: CHEST 1 VIEW [...] Interpreting Staff: SONJA OVALLES MD, RADIOLOGIST (Commercial Sales Representative) /CDC May 10, 2022 03:49 CT HEAD (P): RADIOLOGY,OUTSIDE [facility] PM LUISANA EDDY [id number] -1935 M SERVICE Exm Date: MAY 10, 2022@15:49 Req Phys: CODIE LEON Loc: OP Unknown /05-13-2022@05:05 Img Loc: CT IMAGING Service: PRIMARY CARE - MED OFFICE (Case [id number] COMPLETE) CT HEAD/BRAIN W/O CONTRAST (CT Detailed) CPT:05520 Reason for Study: CHANGE IN MENTAL STATUS Clinical History: CHANGE IN MENTAL STATUS. ORDER ADMINISTRATIVELY ENTERED FOLLOWING SYSTEM OUTAGE. Report Status: Verified Date Reported: MAY 10, 2022 Date Verified: MAY 10, 2022 Commercial Sales Representative E-Sig: Report: CT HEAD/BRAIN W/O CONTRAST [PRINTSET] [...] study. READING PHYSICIAN: Akash Mccoy M.D. -[phone] 05/10/2022 17:35 PDT [facility] National Teleradiology Program [phone] (For Medical Practitioner Use Only ) Attention Patients / Veterans: If you have ques tions or concerns about these test results, please [facility] or primary care team. Primary Interpreting Staff: RADIOLOGY,OUTSIDE SERVICE, Staff Physician / May 08, 2022 07:45 CT T-SPINE (P): RADIOLOGY,OUTSIDE [facility] NUNUNELYLUISANA H [id number] -1935 M SERVICE Exm Date: MAY 08, 2022@19:45 Req Phys: CODIE LEON Loc: OP Unknown /05-13-2022@05:05 Img Loc: CT IMAGING Service: PRIMARY CARE - MED OFFICE (Case [id number] COMPLETE) CT SPINE THORACIC W/O CONTR AST (CT Detailed) CPT:93000 Reason for Study: mrsa bacteremia, spinal surge ry - r/o abscess or discitis Clinical History: [place] IS NOT under investigation for COVID-19 or is COVID-19 negative Defer to radiologist for final CT protocol. Responsible provider name and phone number to n otify for critical findings if other than user placing the order a nd pager listed below: User placing orders pager: [phone] LAST 3: Collection DT Specimen Test Name [...] GFR (eGF 44 L Ref: >=60 Allergies: (Snowflake only) SIMVASTATIN (Feb 29, 2004) CEPHALEXIN (Mar 01, 2004) Report Status: Verified Date Reported: MAY 08, 2022 Date Verified: MAY 08, 2022 Commercial Sales Representative E-Sig: Report: CT SPINE THORACIC W/O CONTRAST [PRINTSET] HISTORY:MRSA bacteremia NUMBER OF IMAGES:[id number] COMPARISON: Correlation with images from recent CT abdomen and pelvis May 06, 2022 TECHNIQUE: A non contrast CT of the thoracic sp ine was performed at the local [place]. Images were subsequently sent to [facility] for interpretation. Axial, coronal and sagittal reformats [...] thoracic level. READING PHYSICIAN: Luisana Webb MD -[phone] 05/08/2022 19:20 PDT [facility] National Teleradiology Program [phone] (For Medical Practitioner Use Only ) Attention Patients / Veterans: If you have ques tions or concerns about these test results, please contact your o [facility] provider or primary care team. Primary Interpreting Staff: RADIOLOGY,OUTSIDE SERVICE, Staff Physician / May 08, 2022 04:48 CHEST 1 VIEW: RADIOLOGY,OUTSIDE [facility] PM LUISANA EDDY [id number] -1935 M SERVICE Exm Date: MAY 08, 2022@16:48 Req Phys: CODIE LEON Loc: OP Unknown /05-13-2022@05:05 Img Loc: MAIN X-RAY Service: PRIMARY CARE - MED OFFICE (Case [id number] COMPLETE) CHEST 1 VIEW (RAD Detailed) CPT:28671 Proc Modifiers : PORTABLE EXAM Reason for Study: dyspnea Clinical History: [place] IS NOT under investigation for COVID-19 or is COVID-19 negative acute worsening of dyspnea Responsible provider name and phone number to notify for critical findings if other than user placing the order and pager listed below: User placing orders pager: [phone] malini cell [phone] LAST CREATININE 1.1 (05/08/22) Report Status: Verified Date Reported: MAY 08, 2022 Date Verified: MAY 08, 2022 Commercial Sales Representative E-Sig: Report: CHEST 1 VIEW HISTORY: dyspnea COMPARISON: 05/06/2022 TECHNIQUE: Frontal view(s) of the chest, submit nola to the [place] National Teleradiology Program (NTP) for interp retation. FINDINGS: Reduced lung volumes. Progressive cardiomegaly, and vascular congestion as well as diffuse interstitial prom inence with probable small effusions. Impression: Expiratory exam with findings of CHF and mild e santa READING PHYSICIAN: Nghia Menjivar M.D. -[id number] [phone] 05/08/2022 18:57 EDT [facility] National Teleradiology Program [phone] (For Medical Practitioner Use Only ) Attention Patients / Veterans: If you have ques tions or concerns about these test results, please contact your o [facility] provider or primary care team. Primary Interpreting Staff: RADIOLOGY,OUTSIDE SERVICE, Staff Physician / May 07, 2022 10:29 CT HEAD (P): SHANI POLANCO [facility] AM LUISANA EDDY [id number] -1935 M Exm Date: MAY 07, 2022@10:29 Req Phys: BETO AYALA Loc: OP Unknown/0 05-13-2022@05:05 Img Loc: CT IMAGING Service: PRIMARY CARE - MED OFFICE (Case [id number] COMPLETE) CT HEAD/BRAIN W/O CONTRAST ( CT Detailed) CPT:85238 Reason for Study: seizure noted at [facility] Clinical History: IS NOT under investigation for COVID-19 or is COVID-19 negative Defer to radiologist for final CT protocol. Responsible provider name and phone number to n otify for critical findings if other than user placing the order a nd pager listed below: User placing orders pager: [phone] LAST 3: Collection DT Specimen Test Name [...] GFR (eGF 44 L Ref: >=60 Allergies: (Snowflake only) SIMVASTATIN (Feb 29, 2004) CEPHALEXIN (Mar 01, 2004) Report Status: Verified Date Reported: MAY 07, 2022 Date Verified: MAY 07, 2022 Commercial Sales Representative E-Sig:/ES/SHANI POLANCO MD Report: EXAM: CT HEAD/BRAIN W/O CONTRAST HISTORY: seizure noted at [facility] Reason for Study: seizure noted at [facility] [place] IS NOT under investigation for COVID-19 or is COVID-19 negative Defer to radiologist for final CT prot ocol. Responsible provider name and phone number to notify for cr itical findings if other than user placing the order and pager lis nola below: User placing orders pager: [phone] LAST 3: Collecti on DT Specimen Test [...] Interpreting Staff: SHANI POLANCO MD, RADIOLOGIST (Commercial Sales Representative) /Javed May 06, 2022 11:40 CHEST 1 VIEW: RADIOLOGY,OUTSIDE [facility] AM LUISANA EDDY [id number] -1935 M SERVICE Exm Date: MAY 06, 2022@11:40 Req Phys: MODESTA VILLANUEVA Loc: [facility] EMERGENCY DEPT WALK-IN (Re Img Loc: MAIN X-RAY Service: Unknown (Case [id number] COMPLETE) CHEST 1 VIEW (RAD Detailed) C PT:16466 Proc Modifiers : PORTABLE EXAM Reason for [...] pager listed below: User placing orders pager: [phone] LAST CREATININE 1.2 (04/30/22) Report Status: Verified Date Reported: MAY 06, 2022 Date Verified: MAY 06, 2022 Commercial Sales Representative E-Sig: Report: Technique: Frontal chest. No comparison Impression: Cardiac silhouette is mildly enlarged. There is mild pulmonary venous congestion. No definite pleural effusion . No pneumothorax seen. READING PHYSICIAN: Vern Donnelly M.D. -[id number] 07 05/06/2022 13:26 EDT [facility] National Teleradiology Program [phone] (For Medical Practitioner Use Only ) Attention Patients / Veterans: If you have ques tions or concerns about these test results, please contact your o rdering provider or primary care team. Primary Interpreting Staff: RADIOLOGY,OUTSIDE SERVICE, Staff Physician / May 06, 2022 10:36 CT (AP) ABDOMEN/PELVIS (P): RADIOLOGY,OUTSIDE [facility] AM LUISANA EDDY [id number] -1935 M SERVICE Exm Date: MAY 06, 2022@10:36 Req Phys: MODESTA VILLANUEVA Loc: [facility] EMERGENCY DEPT WALK-IN (Re Img Loc: CT IMAGING Service: Unknown (Case 66 COMPLETE) CT (AP) ABDOMEN/PELVIS W CONT RAST(CT Detailed) CPT:14245 Reason for Study: fever, back pain Clinical [...] pager listed below: User placing orders pager: [phone] LAST 3: Collection DT Specimen Test Name [...] ESTIMATED GFR(eGF 44 L Ref: >=60 Allergies: (Snowflake only) SIMVASTATIN (Feb 29, 2004) CEPHALEXIN (Mar 01, 2004) To see allergies from all [facility] locations click Re ports tab>Remote Data>All Available Sites>Clinical Reports>Aller gies. Report Status: Verified Date Reported: MAY 06, 2022 Date Verified: MAY 06, 2022 Commercial Sales Representative E-Sig: Report: Exam: CT (AP) ABDOMEN/PELVIS W [...] findings, above. READING PHYSICIAN: Eduin Donaldson M.D. -[phone] 05/06/2022 12:48 [facility] [employer] [phone] (For Medical Practitioner Use Only ) Attention Patients / Veterans: If you have ques tions or concerns about these test results, please contact your o [facility] provider or primary care team. Primary Interpreting Staff: RADIOLOGY,OUTSIDE SERVICE, Staff Physician / May 06, 2022 10:35 CT CERVICAL SPINE W/O CONTRAST: RADIOLOGY,OUT SIDE [facility] LUISANA EDDY [id number] -1935 M SERVICE Exm Date: MAY 06, 2022@10:35 Req Phys: MODESTA VILLANUEVA Loc: [facility] EMERGENCY DEPT WALK-IN (Re Img Loc: CT IMAGING Service: Unknown (Case 65 COMPLETE) CT CERVICAL SPINE W/O CONTRAS T (CT Detailed) CPT:36309 Reason for Study: falls, blood thinner, AMS, se izure Clinical History: falls, blood thinner, AMS, seizure IS under investigation ([facility]I) for COVID- 19 or is COVID-19+ Defer to radiologist for final CT protocol. Responsible provider name and phone number to n otify for critical findings if other than user placing the order a nd pager listed below: User placing orders pager: [phone] LAST 3: Collection DT Specimen Test Name [...] ESTIMATED GFR(eGF 44 L Ref: >=60 Allergies: (Snowflake only) SIMVASTATIN (Feb 29, 2004) CEPHALEXIN (Mar 01, 2004) To see allergies from all [place] locations click Re ports tab>Remote Data>All Available Sites>Clinical Reports>Aller gies. Report Status: Verified Date Reported: MAY 06, 2022 Date Verified: MAY 06, 2022 Commercial Sales Representative E-Sig: Report: CT CERVICAL SPINE W/O CONTRAST HISTORY:falls, blood thinner, AMS, seizure NUMBER OF IMAGES:[id number] COMPARISON: None available. TECHNIQUE: A non contrast CT of the cervical sp ine was performed [place] the local [place] Images were subsequently sent to [facility] for interpretation. Axial, coronal and sagittal reformats [...] tissues: 11 [facility] Impression: -Motion artifact limits the exam. -Given this limitation, no acute osseous abnorm ality. -Moderate multilevel degenerative change throug hout the cervical spine. -Ancillary findings, above. READING PHYSICIAN: Eduin Donaldson M.D. -[phone] 05/06/2022 12:33 [facility] National Teleradiology Program [phone] (For Medical Practitioner Use Only ) Attention Patients / Veterans: If you have ques tions or concerns about these test results, please contact your [facility] provider or primary care team. Primary Interpreting Staff: RADIOLOGY,OUTSIDE SERVICE, Staff Physician / May 06, 2022 10:35 CT HEAD/BRAIN W/O CONTRAST: RADIOLOGY,OUTSIDE [facility] AM LUISANA EDDY [id number] 1935 M SERVICE Exm Date: MAY 06, 2022@10:35 Req Phys: MODESTA VILLANUEVA Loc: [facility] EMERGENCY DEPT WALK-IN (Re Img Loc: CT IMAGING Service: Unknown (Case 64 COMPLETE) CT HEAD/BRAIN W/O CONTRAST (C T Detailed) CPT:61176 Reason for Study: falls, blood thinner, AMS, se izure Clinical History: falls, blood thinner, AMS, seizure IS under investigation (PUI) for COVID- 19 or is COVID-19+ Defer to radiologist for final CT protocol. Responsible provider name and phone number to n otify for critical findings if other than user placing the order a nd pager listed below: User placing orders pager: [phone] LAST 3: Collection DT Specimen Test Name [...] ESTIMATED GFR(eGF 44 L Ref: >=60 Allergies: (Snowflake only) SIMVASTATIN (Feb 29, 2004) CEPHALEXIN (Mar 01, 2004) To see allergies from all [facility] locations click Re ports tab>Remote Data>All Available Sites>Clinical Reports>Lashon king. Report Status: Verified Date Reported: MAY 06, 2022 Date Verified: MAY 06, 2022 Commercial Sales Representative E-Sig: Report: CT HEAD/BRAIN W/O CONTRAST Clinical History: falls, blood thinner, AMS, se izure Number of Images: 532 Comparison: 03/12/2022 Technique: The study was protocoled and supervi sed at the local [facility] facility. CT of the head without contrast. I mages were subsequently received by the [facility] National Telera diology Program (NTP) for interpretation. [...] T findings. READING PHYSICIAN: Eduin Donaldson M.D. [phone] 05/06/2022 12:30 [facility] National Teleradiology Program [phone] (For Medical Practitioner Use Only ) Attention Patients / Veterans: If you have ques tions or concerns about these test results, please contact your [facility] provider or primary care team. Primary [...] 09, 2022 05:30 AM LR MICROBIOLOGY REPORT: [facility] Reporting Lab: [facility] [CLIA# [id number] 147] [place] [address] Accession [UID]: [id number] [[id number]] Receiv ed: May 09, 2022@01:35 Collection sample: BLOOD Collection date: Apr 05:30 Provider: CODIE LEON Comment on specimen: LEFT ARM, RECEIVED 2 BLOOD CULTURE BOTTLES Test(s) ordered: CULTURE & SUSCEPTIBILITY...... 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 R TRIMETH/SULFA................. S TETRACYCLINE.................. S CLINDAMYCIN................... S RIFAMPIN...................... S VANCOMYCIN.................... S Bacteriology Remark(s): VANCOMYCIN SHAMIKA: <=0.5 ug/mL THIS REPORT IS FINAL =--=--=--=--=--=--=--=--=--=--=--=--=--= --=--=--=--=--=--=--=--=--=--=--=--=-- Performing Laboratory: Bacteriology Report Performed By: [facility] [CLIA# [id number]] [place] [address] May 08, 2022 03:23 PM LR MICROBIOLOGY REPORT: [facility] Reporting Lab: [facility] [CLIA# [id number] 147] [place] [address] Accession [UID]: [id number] [[id number]] Receiv ed: May 08, 2022@15:41 Collection sample: BLOOD Collection date: Apr 15:23 Provider: CODIE LEON Comment on specimen: LEFT ARM, RECEIVED 2 BLOOD CULTURE BOTTLES Test(s) ordered: CULTURE & SUSCEPTIBILITY...... completed: May 10, 2022 * BACTERIOLOGY FINAL REPORT => May 10, 2022 16:3 1 TECH CODE: [id number] CULTURE RESULTS: GROWTH SAME THAT OF ANOTHER CULTURE Comment: FOR SUSCEPTIBILITY REPORT SEE PREVIOUS POSITIVE SAME MB 22 [id number] ( 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 from Anaerobic bottle ) ( Recovered from Aerobic bottle ) Bacteriology Remark(s): THIS REPORT IS FINAL =--=--=--=--=--=--=--=--=--=--=--=--=--= --=--=--=--=--=--=--=--=--=--=--=--=-- Performing Laboratory: Bacteriology Report Performed By: [facility] [CLIA# [id number]] [place] [address] May 08, 2022 03:21 PM LR MICROBIOLOGY REPORT: [facility] Reporting Lab: [facility] [CLIA# [id number] 147] [place] [address] Accession [UID]: [id number] [[id number]] Receiv ed: May 08, 2022@15:40 Collection sample: BLOOD Collection date: Apr 15:21 Provider: CODIE LEON Comment on specimen: RT ARM, RECEIVED 2 BLOOD CU LTURE BOTTLES Test(s) ordered: CULTURE & SUSCEPTIBILITY...... completed: May 10, 2022 * BACTERIOLOGY FINAL REPORT => May 10, 2022 16:3 1 TECH CODE: [id number] CULTURE RESULTS: GROWTH SAME THAT OF ANOTHER CULTURE Comment: FOR SUSCEPTIBILITY REPORT SEE PREVIOUS POSITIVE SAME MB 22 [id number] ( 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 from Anaerobic bottle ) ( Recovered from Aerobic bottle ) Bacteriology Remark(s): THIS REPORT IS FINAL =--=--=--=--=--=--=--=--=--=--=--=--=--= --=--=--=--=--=--=--=--=--=--=--=--=-- Performing Laboratory: Bacteriology Report Performed By: [facility] [CLIA# [id number]] [place] [address] May 07, 2022 05:30 AM LR MICROBIOLOGY REPORT: [facility] Reporting Lab: [facility] [CLIA# [id number] 147] [place] [address] Accession [UID]: [id number] [[id number]] Receiv ed: May 07, 2022@01:35 Collection sample: [...] REPORT SEE PREVIOUS POSITIVE SAME MB 22 [id number] ( 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 from Aerobic bottle ) ( Recovered from Anaerobic bottle ) Bacteriology Remark(s): THIS REPORT IS FINAL =--=--=--=--=--=--=--=--=--=--=--=--=--= --=--=--=--=--=--=--=--=--=--=--=--=-- Performing Laboratory: Bacteriology Report Performed By: [facility] [CLIA# [id number]] [place] [address] May 06, 2022 10:51 AM LR MICROBIOLOGY REPORT: [facility] Reporting Lab: [facility] [CLIA# [id number] 147] [place] [address] Accession [UID]: [id number] [[id number]] Receiv ed: May 06, 2022@11:32 Collection sample: [...] Performing Laboratory: Bacteriology Report Performed By: [facility] [CLIA# [id number]] [place] [address] May 06, 2022 10:34 AM LR MICROBIOLOGY REPORT: [facility] Reporting Lab: [facility] [CLIA# [id number] 147] [place] [address] Accession [UID]: [id number] [[id number]] Receiv ed: May 06, 2022@10:51 Collection sample: BLOOD Collection date: Apr 10:34 Provider: MODESTA VILLANUEVA Comment on specimen: RECEIVED 2 BLOOD CULTURE [facility] Test(s) ordered: CULTURE & SUSCEPTIBILITY...... completed: May 07, 2022 * BACTERIOLOGY FINAL REPORT => May 08, 2022 08:3 0 TECH CODE: [id number] CULTURE RESULTS: STAPHYLOCOCCUS AUREUS METHICILL IN RESISTANT [...] Performing Laboratory: Bacteriology Report Performed By: [facility] [CLIA# [id number]] [place] [address] May 06, 2022 10:00 AM LR MICROBIOLOGY REPORT: [facility] Reporting Lab: [facility] [CLIA# [id number] 147] [place] [address] Accession [UID]: [id number] [[id number]] Receiv ed: May 06, 2022@10:41 Collection sample: [...] REPORT SEE PREVIOUS POSITIVE SAME MB 22 [id number] ( 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 from Anaerobic bottle ) ( Recovered from Aerobic bottle ) Bacteriology Remark(s): THIS REPORT IS FINAL =--=--=--=--=--=--=--=--=--=--=--=--=--= --=--=--=--=--=--=--=--=--=--=--=--=-- Performing Laboratory: Bacteriology Report Performed By: [facility] [CLIA# [id number]] [place] [address]
--- OUTSIDE RECORDS SUMMARY | 2022-05-15 09:37 | XMS_ITS ---
DAILY HOSPITALIZATION DATA [facility] Encounter Summary Created on:May 08, 2022 Patient:LUISANA EDDY Sex:Male :1935 Author Organization Department [facility] rs Address [address] [place] [address] Support Name Relationship Address Phone WADE LORENZO Unavailable [phone] [place] [address] WADE LORENZO Unavailable [phone] [place] [address] ARACELI MARSHALL Unavailable [phone] [place] [address] MARILIA MARSHALLA Unavailable [phone] [place] [address] Insurance Providers: All historical and current Section [...] [place]ales [place] MCR Aug 19, [id number] Kristel EDDY [facility] (WNR) ADVANTAGE (WNR) 2016 8 [id number] [phone] [facility] 1 [place] MEDICARE M[place] Aug 19, [id number] Kristel EDDY [facility] (WNR) ADVANTAGE (WNR) 2016 8 [id number] [phone] [facility] 1 Selected Encounter This section includes the information on record at CT for the Encounter. Date/Time Encounter Type Encounter Description Reason Provider Source May 08, 2022 11:25 Inpatient Visit DAILY HOSPITALIZATION DATA [facility] Encounter Template Text not used by CT Plan of Treatment: Future Appointments (+ 6 months) and Future Tests (+/- 45 days) The Plan of Treatment section includes future care activities for the patient [facility] This section includes future appointments and future orders which are active, pending orscheduled.Future Appointments This section includes appointments that were scheduled to occur 6 months from the date of the Encounter, up to a maximum of 20 appointments. The data comes from all CT treatment facilities. Appointment Date/Time Appointment Type Appointment Facili ty Name May 11, 2022 06:15 PM AMBULATORY - NONE [facility] Jul 23, 2022 08:00 AM AMBULATORY - NEUROLOGY [facility] Active, Pending, and Scheduled Orders This section includes a listing of several types of active, pending, and scheduled orders, including clinic medications orders, diagnostic test orders, procedure orders and consult orders; where the start date of the order is 45 days before the date of the Encounter or 45 days after the date of the Encounter. The data comes from all CT treatment [facility]. Test Date/Time Test Type Test Details Facility Name Apr 30, 2022 08:21 Laboratory - Chemistry URINALYSIS URINE WC ON CE [facility] AM Order Apr 30, 2022 08:21 Laboratory - CULTURE & SUSCEPTIBILITY [facility] AM Microbiology Order URINE WC May 06, 2022 12:00 Laboratory - Blood ABO/RH - LAB BLOOD [facility] AM Bank Order May 06, 2022 10:11 Laboratory - Blood TYPE & SCREEN - LAB [facility] AM Bank Order BLOOD WC May 06, 2022 10:27 Pharmacy [facility] AM Medication Order May 06, 2022 10:28 [facility] AM Infusion Order May 06, 2022 10:34 [facility] AM Infusion Order May 06, 2022 10:41 [facility] AM Infusion Order May 06, 2022 12:15 [facility] PM Medication Order May 06, 2022 01:31 [facility] PM Medication Order May 06, 2022 04:49 [facility] PM Medication Order May 07, 2022 01:00 Laboratory - CULTURE & SUSCEPTIBILITY [facility] PM Microbiology Order BLOOD WC ONCE May 11, 2022 09:07 [facility] AM Microbiology Order BLOOD WC May 11, 2022 09:07 Laboratory - CULTURE & SUSCEPTIBILITY [facility] AM Microbiology Order BLOOD WC May 11, 2022 09:38 Laboratory - Chemistry EOSINOPHIL SMEAR,URINE [facility] AM Order URINE WC ONCE May 11, 2022 09:38 Laboratory - Chemistry URINALYSIS URINE WC ON CE [facility] AM Order May 11, 2022 09:38 Laboratory - Chemistry FENA URINE WC ONCE [facility] AM Order Lab Results: +/- 30 days of the encounter This section includes the Chemistry and Hematology Lab Results on record with CT for the patient. Radiology Reports and Pathology Reports are provided separately, in subsequent sections.Lab Results This section contains the Chemistry/Hematology Results that were resulted 30 days before or 30 daysafter the date of the Encounter. Date/Time Source Result Type Result - Unit Interpretation Reference Range Comment May 11, 2022 11:13 [facility] FINGERSTICK GLUCOSE Speci men Type: BLOOD AM Comment: Mark casillas Nurse Notified Ordering Provid er: CODIE LEON Report Released Date/Time: May 11, 2022 11:53 AM Reporting Lab: [facility] [address] [facility] [address] Performing Lab: [facility] [address] [facility] [address] FINGERSTICK GLUCOSE 367 H 70-100 May 11, 2022 07:05 [facility] LIVER FUNCTION TESTS Spec imen Type: PLASMA AM No comment enter ed. Ordering Provid er: CODIE LEON Report Released Date/Time: May 11, 2022 09:08 AM Reporting Lab: [facility] [address] [facility] [address] Performing Lab: [facility] [address] [facility] [address] BILIRUBIN, TOTAL 1.6 H 0.2-1.2 ALKALINE PHOSPHATASE 102 40-150 ALT/SGPT 42 <55 AST/SGOT 30 <34 GAMMA GTP 52 <64 DIR. BILIRUBIN 1.2 H <0.5 May 11, 2022 07:05 AM [facility] CK,TOTAL Specim en Type: PLASMA No comment enter ed. Ordering Provid er: CODIE LEON Report Released Date/Time: May 11, 2022 09:08 AM Reporting Lab: [facility] [address] [facility] [address] Performing Lab: [facility] [address] [facility] [address] CK,TOTAL 16 L 39-208 May 11, 2022 07:05 [facility] BASIC METABOLIC Specimen Type: PLASMA AM PANEL+MG No comment enter ed. Ordering Provid er: OG DIAL Report Released Date/Time: May 11, 2022 04:46 AM Reporting Lab: [facility] [address] [facility] [address] Performing Lab: [facility] [address] [facility] [address] CREATININE 1.6 H 0.7-1.2 UREA NITROGEN 28 H 8-26 GLUCOSE 396 H 70-100 SODIUM 150 H 136-145 POTASSIUM 3.7 3.5-5.1 CHLORIDE 120 H 98-107 CO2 23 22-29 CALCIUM 8.4 8.4-10.2 MAGNESIUM 2.1 1.6-2.6 ANION GAP 7 5-15 CREAT EGFR(CKD-EPI) 42 L >60 May 11, 2022 07:05 AM [facility] BNP Specim en Type: PLASMA No comment enter ed. Ordering Provid er: CODIE LEON Report Released Date/Time: May 11, 2022 09:15 AM Reporting Lab: [facility] [address] [facility] [address] Performing Lab: [facility] [address] [facility] [address] BNP 59 <99 May 11, 2022 07:05 AM [facility] CBC Specim en Type: BLOOD No comment enter ed. Ordering Provid er: OG DIAL Report Released Date/Time: May 11, 2022 04:46 AM Reporting Lab: [facility] [address] [facility] [address] Performing Lab: [facility] [address] [facility] [address] WBC 15.93 H 4.0-11.0 RBC 3.60 L 4.6-6.2 HGB 11.2 L 13.5-17.9 HCT 35.3 L 41-54 MCV 98.1 80-100 MCH 31.1 27-33 MCHC 31.7 L 32.0-37.5 PLT 231 150-400 MPV 11.2 H 7.4-10.4 RDW 15.2 H 11.5-14.5 May 11, 2022 06:14 [facility] FINGERSTICK GLUCOSE Speci men Type: BLOOD AM Comment: Mark casillas Nurse Notified Ordering Provid er: CODIE LEON Report Released Date/Time: May 11, 2022 06:42 AM Reporting Lab: [facility] [address] [facility] [address] Performing Lab: [facility] [address] [facility] [address] FINGERSTICK GLUCOSE 345 H 70-100 May 11, 2022 02:24 [facility] FINGERSTICK GLUCOSE Speci men Type: BLOOD AM Comment: Mark casillas Ordering Provid er: CODIE LEON Report Released Date/Time: May 11, 2022 02:44 AM Reporting Lab: [facility] [address] [facility] [address] Performing Lab: [facility] [address] [facility] [address] FINGERSTICK GLUCOSE 375 H 70-100 May 10, 2022 08:38 [facility] FINGERSTICK GLUCOSE Speci men Type: BLOOD PM Comment: Mark casillas Ordering Provid er: CODIE LEON Report Released Date/Time: May 11, 2022 12:31 AM Reporting Lab: [facility] [address] [facility] [address] Performing Lab: [facility] [address] [facility] [address] FINGERSTICK GLUCOSE 346 H 70-100 May 10, 2022 05:05 [facility] FINGERSTICK GLUCOSE Speci men Type: BLOOD PM Comment: Mark casillas Nurse Notified Ordering Provid er: CODIE LEON Report Released Date/Time: May 10, 2022 11:50 PM Reporting Lab: [facility] [address] [facility] [address] Performing Lab: [facility] [address] [facility] [address] FINGERSTICK GLUCOSE 245 H 70-100 May 10, 2022 02:00 [facility] VANCOMYCIN (TROUGH) Speci men Type: PLASMA PM No comment enter ed. Ordering Provid er: CODIE LEON Report Released Date/Time: May 11, 2022 01:34 AM Reporting Lab: [facility] [address] [facility] [address] Performing Lab: [facility] [address] [facility] [address] VANCOMYCIN (TROUGH) 31.8 H 10.0-15.0 May 10, 2022 [facility] BASIC METABOLIC Specimen Typ e: PLASMA 02:00 PM PANEL+MG No comment enter ed. Ordering Provid er: CODIE LEON Report Released Date/Time: May 11, 2022 01:34 AM Reporting Lab: [facility] [address] Performing Lab: [facility] [address] CREATININE 1.1 .7-1.2 UREA NITROGEN 22 8-26 GLUCOSE 279 H 70-100 SODIUM 150 H 136-145 POTASSIUM 3.2 L 3.5-5.1 CHLORIDE 116 H 98-107 CO2 23 22-29 CALCIUM 8.5 8.4-10.2 MAGNESIUM 2.0 1.6-2.6 ANION GAP 11 5-15 CREAT EGFR(CKD-EPI) 65 >60 May 10, 2022 01:20 PM [facility] CBC & DIFF Specim en Type: BLOOD Comment: Automa nola Differential Performed Ordering Provid er: MD ESTEBAN Report Released Date/Time: May 10, 2022 08:52 PM Reporting Lab: [facility] [address] Performing Lab: [facility] [address] WBC 16.24 H 4.0-11.0 RBC 3.76 L [...] 0.28 H 0-0.1 May 10, 2022 11:07 [facility] FINGERSTICK GLUCOSE Speci men Type: BLOOD AM Comment: Mark casillas Nurse Notified Ordering Provid er: CODIE LEON Report Released Date/Time: May 11, 2022 12:31 AM Reporting Lab: [facility] [address] [facility] [address] Performing Lab: [facility] [address] [facility] [address] FINGERSTICK GLUCOSE 253 H 70-100 May 10, 2022 06:16 [facility] FINGERSTICK GLUCOSE Speci men Type: BLOOD AM Comment: Mark casillas Nurse Notified Ordering Provid er: CODIE LEON Report Released Date/Time: May 10, 2022 11:50 PM Reporting Lab: [facility] [address] [facility] [address] Performing Lab: [facility] [address] [facility] [address] FINGERSTICK GLUCOSE 271 H 70-100 May 09, 2022 09:07 [facility] FINGERSTICK GLUCOSE Speci men Type: BLOOD PM Comment: Mark casillas Ordering Provid er: CODIE LEON Report Released Date/Time: May 10, 2022 11:50 PM Reporting Lab: [facility] [address] [facility] [address] Performing Lab: [facility] [address] [facility] [address] FINGERSTICK GLUCOSE 209 H 70-100 May 09, 2022 05:33 [facility] FINGERSTICK GLUCOSE Speci men Type: BLOOD PM Comment: Mark casillas Nurse Notified Ordering Provid er: CODIE LEON Report Released Date/Time: May 09, 2022 05:53 PM Reporting Lab: [facility] [address] [facility] [address] Performing Lab: [facility] [address] [facility] [address] FINGERSTICK GLUCOSE 251 H 70-100 May 09, 2022 02:09 [facility] VANCOMYCIN (PEAK) Specime n Type: SERUM PM No comment enter ed. Ordering Provid er: AMARIS DE JESUS Report Released Date/Time: May 09, 2022 09:33 AM Reporting Lab: [facility] [address] [facility] [address] Performing Lab: [facility] [address] [facility] [address] VANCOMYCIN (PEAK) 24.2 20.0-40.0 May 09, 2022 11:19 [facility] FINGERSTICK GLUCOSE Speci men Type: BLOOD AM Comment: Mark casillas Nurse Notified Ordering Provid er: CODIE LEON Report Released Date/Time: May 09, 2022 11:38 AM Reporting Lab: [facility] [address] Performing Lab: [facility] [address] FINGERSTICK GLUCOSE 240 H 70-100 May 09, 2022 08:13 [facility] VANCOMYCIN (TROUGH) Speci men Type: SERUM AM No comment enter ed. Ordering Provid er: AMARIS DE JESUS Report Released Date/Time: May 08, 2022 11:14 AM Reporting Lab: [facility] [address] Performing Lab: [facility] [address] VANCOMYCIN (TROUGH) 16.1 H 10.0-15.0 May 09, 2022 05:33 AM [facility] CBC & DIFF Specim en Type: BLOOD Comment: Automa nola Differential Performed Ordering Provid er: CODIE LEON Report Released Date/Time: May 08, 2022 05:27 PM Reporting Lab: [facility] [address] Performing Lab: [facility] [address] WBC 14.92 H 4.0-11.0 RBC 3.41 L [...] GRAN 0.16 H 0-0.1 May 09, 2022 [facility] COMPREHENSIVE METABOLIC Spec imen Type: PLASMA 05:32 AM PANEL+MG No comment enter ed. Ordering Provid er: MALINI,CODIE E Report Released Date/Time: May 08, 2022 05:27 PM Reporting Lab: [facility] [address] [facility] [address] Performing Lab: [facility] [address] [facility] [address] CREATININE 1.2 0.7-1.2 UREA NITROGEN 25 8-26 [...] 59 L >60 May 09, 2022 05:16 [facility] FINGERSTICK GLUCOSE Speci men Type: BLOOD AM Comment: Mark casillas Nurse Notified Ordering Provid er: CODIE LEON Report Released Date/Time: May 09, 2022 07:27 AM Reporting Lab: [facility] [address] Performing Lab: [facility] [address] FINGERSTICK GLUCOSE 295 H 70-100 May 08, 2022 09:32 PM [facility] EXTRA MINT TUBE Specim en Type: PLASMA No comment enter ed. Ordering Provid er: MD ESTEBAN Report Released Date/Time: May 08, 2022 09:32 PM Reporting Lab: [facility] [address] Performing Lab: [facility] [address] [facility] [address] EXTRA MINT TUBE RECEIVED May 08, 2022 09:32 PM [facility] EXTRA PURPLE TUBE Spec imen Type: BLOOD No comment enter ed. Ordering Provid er: MD ESTEBAN Report Released Date/Time: May 08, 2022 09:32 PM Reporting Lab: [facility] [address] [facility] [address] Performing Lab: [facility] [address] EXTRA PURPLE TUBE RECEIVED May 08, 2022 09:32 [facility] EXTRA GOLD GEL TUBE Speci men Type: SERUM PM No comment enter ed. Ordering Provid er: MD ESTEBAN Report Released Date/Time: May 08, 2022 09:32 PM Reporting Lab: [facility] [address] [facility] [address] Performing Lab: [facility] [address] [facility] [address] EXTRA GOLD GEL TUBE RECEIVED May 08, 2022 09:32 PM [facility] EXTRA BLUE TUBE Specim en Type: PLASMA No comment enter ed. Ordering Provid er: MD ESTEBAN Report Released Date/Time: May 08, 2022 09:32 PM Reporting Lab: [facility] [address] [facility] [address] Performing Lab: [facility] [address] [facility] [address] EXTRA BLUE TUBE RECEIVED May 08, 2022 09:32 PM [facility] EXTRA BRASWELL TUBE Specim en Type: PLASMA No comment enter ed. Ordering Provid er: MD ESTEBAN Report Released Date/Time: May 08, 2022 09:37 PM Reporting Lab: [facility] [address] [facility] [address] Performing Lab: [facility] [address] [facility] [address] EXTRA BRASWELL TUBE RECEIVED May 08, 2022 09:32 PM [facility] LACTIC ACID Specim en Type: PLASMA No comment enter ed. Ordering Provid er: OG DIAL Report Released Date/Time: May 08, 2022 09:49 PM Reporting Lab: [facility] [address] [facility] [address] Performing Lab: [facility] [address] [facility] [address] LACTIC ACID 2.5 H 0.5-2.2 May 08, 2022 09:32 PM [facility] BNP Specim en Type: PLASMA No comment enter ed. Ordering Provid er: OG DIAL Report Released Date/Time: May 08, 2022 09:50 PM Reporting Lab: [facility] [address] [facility] [address] Performing Lab: [facility] [address] [facility] [address] BNP 897 H <99 May 08, 2022 09:32 PM [facility] CBC Specim en Type: BLOOD No comment enter ed. Ordering Provid er: OG DIAL Report Released Date/Time: May 08, 2022 09:50 PM Reporting Lab: [facility] [address] Performing Lab: [facility] [address] WBC 18.54 H 4.0-11.0 RBC 3.68 L 4.6-6.2 HGB 11.5 L 13.5-17.9 HCT 35.1 L 41-54 MCV 95.4 80-100 MCH 31.3 27-33 MCHC 32.8 32.0-37.5 PLT 221 150-400 MPV 11.1 H 7.4-10.4 RDW 14.9 H 11.5-14.5 May 08, 2022 09:32 PM [facility] BLOOD GASES Specim en Type: VENOUS BLOOD Comment: O2 THE RAPY = 3L PM Ordering Provid er: OG DIAL Report Released Date/Time: May 08, 2022 09:50 PM Reporting Lab: [facility] [address] Performing Lab: [facility] [address] PH 7.36 7.33-7.43 PCO2 47 41-51 BICARBONATE 24.4 21.0-30.0 PO2 31 L 35-40 OXYGEN SATURATION 54.7 L 70.0-75.0 PH(TEMP CORRECTED) 7.37 7.33-7.43 PCO2(TEMP CORRECTED) 46 41-51 PO2(TEMP CORRECTED) 31 L 35-40 PATIENT TEMPERATURE 36.7 May 08, 2022 [facility] COMPREHENSIVE METABOLIC Spec imen Type: PLASMA 09:32 PM PANEL+MG No comment enter ed. Ordering Provid er: OG DIAL Report Released Date/Time: May 08, 2022 09:50 PM Reporting Lab: [facility] [address] Performing Lab: [facility] [address] CREATININE 1.3 H 0.7-1.2 UREA NITROGEN 26 [...] 54 L >60 May 08, 2022 08:27 [facility] FINGERSTICK GLUCOSE Speci men Type: BLOOD PM Comment: Mark casillas Nurse Notified Ordering Provid er: CODIE LEON Report Released Date/Time: May 08, 2022 08:55 PM Reporting Lab: [facility] [address] [facility] [address] Performing Lab: [facility] [address] [facility] [address] FINGERSTICK GLUCOSE 272 H 70-100 May 08, 2022 06:56 [facility] FINGERSTICK GLUCOSE Speci men Type: BLOOD PM Comment: Mark casillas Ordering Provid er: CODIE LEON Report Released Date/Time: May 08, 2022 07:08 PM Reporting Lab: [facility] [address] [facility] [address] Performing Lab: [facility] [address] [facility] [address] FINGERSTICK GLUCOSE 262 H 70-100 May 08, 2022 04:50 [facility] FINGERSTICK GLUCOSE Speci men Type: BLOOD PM Comment: Nurse Notified Ordering Provid er: CODIE LEON Report Released Date/Time: May 08, 2022 05:14 PM Reporting Lab: [facility] [address] [facility] [address] Performing Lab: [facility] [address] [facility] [address] FINGERSTICK GLUCOSE 330 H 70-100 May 08, 2022 11:21 [facility] FINGERSTICK GLUCOSE Speci men Type: BLOOD AM Comment: Mark casillas Nurse Notified Ordering Provid er: CODIE LEON Report Released Date/Time: May 08, 2022 11:51 AM Reporting Lab: [facility] [address] [facility] [address] Performing Lab: [facility] [address] [facility] [address] FINGERSTICK GLUCOSE 231 H 70-100 May 08, 2022 07:25 AM [facility] CBC & DIFF Specim en Type: BLOOD Comment: Automa nola Differential Performed Ordering Provid er: BETO AYALA Report Released Date/Time: May 07, 2022 12:28 PM Reporting Lab: [facility] [address] Performing Lab: [facility] [address] WBC 16.29 H 4.0-11.0 RBC 3.38 L [...] GRAN 0.26 H 0-0.1 May 08, 2022 [facility] PROTHROMBIN TIME/INR Specime n Type: PLASMA 07:25 AM No comment enter ed. Ordering Provid er: BETO AYALA Report Released Date/Time: May 07, 2022 12:28 PM Reporting Lab: [facility] [address] Performing Lab: [facility] [address] .INR 1.2 H 0.8-1.1 .PT 14.2 H 9.4-12.5 May 08, 2022 [facility] COMPREHENSIVE METABOLIC Spec imen Type: PLASMA 07:25 AM PANEL+MG No comment enter ed. Ordering Provid er: BETO AYALA Report Released Date/Time: May 07, 2022 12:28 PM Reporting Lab: [facility] [address] Performing Lab: [facility] [address] CREATININE 1.1 0.7-1.2 UREA NITROGEN 27 H [...] EGFR(CKD-EPI) 65 >60 May 08, 2022 06:53 [facility] FINGERSTICK GLUCOSE Speci men Type: BLOOD AM Comment: Mark casillas Ordering Provid er: CODIE LEON Report Released Date/Time: May 08, 2022 07:18 AM Reporting Lab: [facility] [address] [facility] [address] Performing Lab: [facility] [address] [facility] [address] FINGERSTICK GLUCOSE 276 H 70-100 May 07, 2022 08:36 [facility] FINGERSTICK GLUCOSE Speci men Type: BLOOD PM Comment: Nurse Notified Ordering Provid er: CODIE LEON Report Released Date/Time: May 08, 2022 12:29 AM Reporting Lab: [facility] [address] [facility] [address] Performing Lab: [facility] [address] [facility] [address] FINGERSTICK GLUCOSE 282 H 70-100 May 07, 2022 07:04 PM [facility] LACTIC ACID Specim en Type: PLASMA No comment enter ed. Ordering Provid er: BETO AYALA Report Released Date/Time: May 07, 2022 06:28 PM Reporting Lab: [facility] [address] [facility] [id number] Performing Lab: [facility] [address] [facility] [address] LACTIC ACID 2.0 0.5-2.2 May 07, 2022 04:46 [facility] FINGERSTICK GLUCOSE Speci men Type: BLOOD PM Comment: Nurse Notified Ordering Provid er: BETO AYALA Report Released Date/Time: May 07, 2022 05:00 PM Reporting Lab: [facility] [address] [facility] [address] Performing Lab: [facility] [address] [place] [facility] [address] FINGERSTICK GLUCOSE 274 H 70-100 May 07, 2022 12:47 [facility] FINGERSTICK GLUCOSE Speci men Type: BLOOD PM Comment: Mark casillas Nurse Notified Ordering Provid er: BETO AYALA Report Released Date/Time: May 07, 2022 05:32 PM Reporting Lab: [facility] [address] [facility] [address] Performing Lab: [facility] [address] [facility] [address] FINGERSTICK GLUCOSE 309 H 70-100 May 07, 2022 06:35 [facility] FINGERSTICK GLUCOSE Speci men Type: BLOOD AM Comment: Mark casillas Nurse Notified Ordering Provid er: GAYLA DOMINGUEZ Report Released Date/Time: May 07, 2022 06:46 AM Reporting Lab: [facility] [address] [facility] [address] Performing Lab: [facility] [address] [facility] [address] FINGERSTICK GLUCOSE 352 H 70-100 May 07, 2022 06:15 AM [facility] ALBUMIN Specim en Type: PLASMA No comment enter ed. Ordering Provid er: GAYLA DOMINGUEZ Report Released Date/Time: May 06, 2022 06:33 PM Reporting Lab: [facility] [address] [facility] [address] Performing Lab: [facility] [address] [facility] [address] ALBUMIN 3.0 L 3.5-5.2 May 07, 2022 [facility] COMPREHENSIVE METABOLIC Spec imen Type: PLASMA 06:15 AM PANEL+MG No comment enter ed. Ordering Provid er: GAYLA DOMINGUEZ Report Released Date/Time: May 06, 2022 09:11 PM Reporting Lab: [facility] [address] [facility] [address] Performing Lab: [facility] [address] [facility] [address] CREATININE 1.2 0.7-1.2 UREA NITROGEN 25 8-26 [...] L >60 May 07, 2022 06:15 AM [facility] CBC & DIFF Specim en Type: BLOOD Comment: Manual Differential Performed Ordering Provid er: GAYLA DOMINGUEZ Report Released Date/Time: May 06, 2022 09:11 PM Reporting Lab: [facility] [address] [facility] [address] Performing Lab: [facility] [address] [facility] [address] WBC 20.25 H 4.0-11.0 RBC 3.54 L [...] NORMOCYTIC, NORMOCHROMIC May 07, 2022 12:19 AM [facility] LACTIC ACID Specim en Type: PLASMA No comment enter ed. Ordering Provid er: GAYLA DOMINGUEZ Report Released Date/Time: May 06, 2022 07:13 PM Reporting Lab: [facility] [address] [facility] [address] Performing Lab: [facility] [address] [facility] [address] LACTIC ACID 2.7 H 0.5-2.2 May 06, 2022 10:45 [facility] FINGERSTICK GLUCOSE Speci men Type: BLOOD PM Comment: Mark casillas Nurse Notified Ordering Provid er: GAYLA DOMINGUEZ Report Released Date/Time: May 07, 2022 12:08 AM Reporting Lab: [facility] [address] [facility] [address] Performing Lab: [facility] [address] [facility] [address] FINGERSTICK GLUCOSE 320 H 70-100 May 06, 2022 06:53 [facility] MRSA SURVL NARES Specimen Type: NARES PM DNA No comment enter ed. Ordering Provid er: GAYLA DOMINGUEZ Report Released Date/Time: May 06, 2022 06:33 PM Reporting Lab: [facility] [address] [facility] [address] Performing Lab: [facility] [address] [facility] [address] MRSA SURVL NARES DNA POSITIVE HH Negative May 06, 2022 06:51 [facility] CARDIAC TROPONIN I Specim en Type: PLASMA PM No comment enter ed. Ordering Provid er: GAYLA DOMINGUEZ Report Released Date/Time: May 06, 2022 06:05 PM Reporting Lab: [facility] [address] [facility] [address] Performing Lab: [facility] [address] [facility] [address] CARDIAC TROPONIN I <0.028 <0.028 May 06, 2022 06:51 PM [facility] LACTIC ACID Specim en Type: PLASMA No comment enter ed. Ordering Provid er: GAYLA DOMINGUEZ Report Released Date/Time: May 06, 2022 06:04 PM Reporting Lab: [facility] [address] [facility] [address] Performing Lab: [facility] [address] [facility] [address] LACTIC ACID 3.1 H 0.5-2.2 May 06, 2022 06:51 [facility] EXTRA GOLD GEL TUBE Speci men Type: SERUM PM No comment enter ed. Ordering Provid er: GAYLA DOMINGUEZ Report Released Date/Time: May 06, 2022 06:52 PM Reporting Lab: [facility] [address] [facility] [address] Performing Lab: [facility] [address] [facility] [address] EXTRA GOLD GEL TUBE RECEIVED May 06, 2022 06:51 [facility] C-REACTIVE PROTEIN Specim en Type: PLASMA PM No comment enter ed. Ordering Provid er: GAYLA DOMINGUEZ Report Released Date/Time: May 06, 2022 09:29 PM Reporting Lab: [facility] [address] [facility] [address] Performing Lab: [facility] [address] C-REACTIVE PROTEIN 392.40 H <5.00 May 06, 2022 10:51 AM [facility] URINALYSIS Specim en Type: URINE No comment enter ed. Ordering Provid er: MODESTA VILLANUEVA Report Released Date/Time: May 06, 2022 10:11 AM Reporting Lab: [facility] [address] Performing Lab: [facility] [address] URINE COLOR YELLOW SPECIFIC GRAVITY 1.020 1.003-1.035 [...] ESTERASE 500 NEGATIVE May 06, 2022 10:24 [facility] COVID-19 DIAGNOSTIC Speci men Type: NASOPHARYNGEAL AM PANEL (CEPHEID) Comment: Cephei d GeneXpert (618) Ordering Provid er: MODESTA VILLANUEVA Report Released Date/Time: May 06, 2022 10:11 AM Reporting Lab: [facility] [address] Performing Lab: [facility] [address] COVID-19 (CEPHEID) Not Detected Not Dete cted May 06, 2022 10:20 AM [facility] POC ABG/LACTATE Specim en Type: VENOUS BLOOD No comment enter ed. Ordering Provid er: MODESTA VILLANUEVA Report Released Date/Time: May 06, 2022 10:22 AM Reporting Lab: [facility] [address] Performing Lab: [facility] [address] POC PH 7.410 7.31-7.41 POC PCO2 28.9 L 35.00-45.00 POC PO2 82 H 35.0-40.0 POC TCO2 19 L 24.0-29.0 POC HCO3 18.3 L 23.0-28.0 POC BE ECT -6 L -2 POC SO2 96 H 70-75 POC LACTATE 3.62 0.90-1.70 May 06, 2022 10:00 [facility] ACT PART THROMBO TIME Spe cimen Type: PLASMA AM No comment enter ed. Ordering Provid er: MODESTA VILLANUEVA Report Released Date/Time: May 06, 2022 10:11 AM Reporting Lab: [facility] [address] [facility] [address] Performing Lab: [facility] [address] [facility] [address] APTT 37.8 H 25.1-36.5 May 06, 2022 10:00 [facility] PROTHROMBIN TIME/INR Spec imen Type: PLASMA AM No comment enter ed. Ordering Provid er: MODESTA VILLANUEVA Report Released Date/Time: May 06, 2022 10:11 AM Reporting Lab: [facility] [address] [facility] [address] Performing Lab: [facility] [address] [facility] [address] .INR 2.5 H 0.8-1.1 .PT 29.2 H 9.4-12.5 May 06, 2022 10:00 AM [facility] PHOSPHORUS Specim en Type: PLASMA No comment enter ed. Ordering Provid er: MODESTA VILLANUEVA Report Released Date/Time: May 06, 2022 10:11 AM Reporting Lab: [facility] [address] [facility] [address] Performing Lab: [facility] [address] [facility] [address] PHOSPHORUS 2.5 2.3-4.7 May 06, 2022 10:00 [facility] CARDIAC TROPONIN I Specim en Type: PLASMA AM Comment: Critic al Value Reported To: BROOKS COTE 05-06-2022 @1053 BY MBB. Critical value report confirmed. Ordering Provid er: MODESTA VILLANUEVA Report Released Date/Time: May 06, 2022 10:11 AM Reporting Lab: [facility] [address] [facility] [address] Performing Lab: [facility] [address] [facility] [address] CARDIAC TROPONIN I 0.035 HH <0.028 May 06, 2022 10:00 AM [facility] PROCALCITONIN Specim en Type: PLASMA No comment enter ed. Ordering Provid er: MODESTA VILLANUEVA Report Released Date/Time: May 06, 2022 10:11 AM Reporting Lab: [facility] [address] [facility] [address] Performing Lab: [facility] [address] [facility] [address] PROCALCITONIN 22.29 H <0.09 May 06, 2022 10:00 AM [facility] LIPASE Specim en Type: PLASMA No comment enter ed. Ordering Provid er: MODESTA VILLANUEVA Report Released Date/Time: May 06, 2022 10:11 AM Reporting Lab: [facility] [address] [facility] [address] Performing Lab: [facility] [address] [facility] [address] LIPASE <4 <60 May 06, 2022 10:00 AM [facility] CBC & DIFF Specim en Type: BLOOD Comment: Manual Differential Performed Ordering Provid er: MODESTA VILLANUEVA Report Released Date/Time: May 06, 2022 10:11 AM Reporting Lab: [facility] [address] Performing Lab: [facility] [address] [facility] [address] WBC 18.82 H 4.0-11.0 RBC 3.70 L [...] 0.09 .RBC MORPHOLOGY PRESENT May 06, 2022 [facility] COMPREHENSIVE METABOLIC Spec imen Type: PLASMA 10:00 AM PANEL+MG Comment: Manual Differential Performed Ordering Provid er: MODESTA VILLANUEVA Report Released Date/Time: May 06, 2022 10:11 AM Reporting Lab[facility] [address] Performing Lab: [facility] [address] CREATININE 1.3 H 0.7-1.2 UREA NITROGEN 25 [...] 54 L >60 May 06, 2022 10:00 [facility] EXTRA GOLD GEL TUBE Speci men Type: SERUM AM No comment enter ed. Ordering Provid er: LINNEA RAND Report Released Date/Time: May 06, 2022 10:25 AM Reporting Lab: [facility] [address] [facility] [address] Performing Lab: [facility] [address] [facility] [address] EXTRA GOLD GEL TUBE RECEIVED May 06, 2022 09:46 [facility] FINGERSTICK GLUCOSE Speci men Type: BLOOD AM Comment: Mark casillas Nurse Notified Ordering Provid er: MODESTA VILLANUEVA Report Released Date/Time: May 06, 2022 09:59 AM Reporting Lab: [facility] [address] [facility] [address] Performing Lab: [facility] [address] [facility] [address] FINGERSTICK GLUCOSE 369 H 70-100 Apr 30, 2022 09:17 AM [facility] CBC Specim en Type: BLOOD No comment enter ed. Ordering Provid er: BILL ROONEY Report Released Date/Time: Apr 30, 2022 08:21 AM Reporting Lab: [facility] [address] [facility] [address] Performing Lab: [facility] [address] [facility] [address] WBC 10.40 4.0-11.0 RBC 3.96 L 4.6-6.2 HGB 12.3 L 13.5-17.9 HCT 37.8 L 41-54 MCV 95.5 80-100 MCH 31.1 27-33 MCHC 32.5 32.0-37.5 PLT 286 150-400 MPV 10.1 7.4-10.4 RDW 14.6 H 11.5-14.5 Apr 30, 2022 [facility] BASIC METABOLIC Specimen Typ e: PLASMA 09:17 AM PANEL+MG No comment enter ed. Ordering Provid er: BILL ROONEY Report Released Date/Time: Apr 30, 2022 08:21 AM Reporting Lab: [facility] [address] Performing Lab: [facility] [address] CREATININE 1.2 0.7-1.2 UREA NITROGEN 26 8-26 [...] Source Pressure Rate Mass Index May 08 [facility] 2021 10:37 [facility] May 08, 259.7 34 [facility] 2021 09:14 lb [facility] May 08 [facility] 2021 05:54 [facility] Social History: Smoking Status (Most current) [...] Comment Facility Feb 02, 2022 09:[address] Tobacco Use History This section includes a history of the smoking, or tobacco- related health factors, that were collected on or before the date of the Encounter. The data comes from the CT facility where the Encounter took place. Date/Time Smoking Status/Tobacco Use Comment [facility] Mar 22, 2021 07:45 AM [facility] Oct 02, 2019 10:02 AM VA-TOBACCO NEVER USED [place] [facility] May 21, 2018 09:[address]TOBACCO [place] USED [place] [facility] December 25, 2017 [...] CLINICS Apr 18, 2018 ADVANCE DIRECTIVE DISCUSSION [facility] December 23, 2017 CLINICAL WARNING FARHAT SCHMID [facility] May 11, 2003 ADVANCE DIRECTIVE BERT CASILLAS [facility] Radiology Reports: +/- 30 days of the [...] the Encounter. The data comes from all CT treatment facilities. Date/Time Radiology Report Provider Source May 11, 2022 09:46 CHEST 1 VIEW: SONJA OVALLES [facility] AM LUISANA EDDY [id number] -1935 M Exm Date: MAY 11, 2022@09:46 Req Phys: CODIE LEON Loc: OP Unknown /05-13-2022@05:05 Img Loc: MAIN X-RAY Service: PRIMARY CARE - MED OFFICE (Case [id number] COMPLETE) CHEST 1 VIEW (RAD Detailed) CPT:07504 Proc Modifiers : PORTABLE EXAM Reason for Study: resp distress Clinical History: [place] IS NOT under investigation for COVID-19 or is COVID-19 negative Respiratory distress Responsible provider name and phone number to notify for critical findings if other than u ser placing the order and pager listed below: User placing orde rs pager: [phone] cell LAST CREATININE 1.6 H (05/11/22) Report Status: Verified Date Reported: MAY 11, 2022 Date Verified: MAY 11, 2022 Electronic News Gathering Editor E-Sig:/ES/SONJA OVALLES MD Report: CHEST 1 VIEW [...] Primary Interpreting Staff: SONJA OVALLES MD, RADIOLOGIST (Electronic News Gathering Editor) /CDC May 10, 2022 03:49 CT HEAD (P): RADIOLOGY,OUTSIDE [facility] PM LUISANA EDDY [id number] -1935 M SERVICE Exm Date: MAY 10, 2022@15:49 Req Phys: CODIE LEON Loc: OP Unknown /05-13-2022@05:05 Img Loc: CT IMAGING Service: PRIMARY CARE - MED OFFICE (Case [id number] COMPLETE) CT HEAD/BRAIN W/O CONTRAST (CT Detailed) CPT:46434 Reason for Study: CHANGE IN MENTAL STATUS Clinical History: CHANGE IN MENTAL STATUS. ORDER ADMINISTRATIVELY ENTERED FOLLOWING SYSTEM OUTAGE. Report Status: Verified Date Reported: MAY 10, 2022 Date Verified: MAY 10, 2022 Electronic News Gathering Editor E-Sig: Report: CT HEAD/BRAIN W/O CONTRAST [PRINTSET] HISTORY: Change in mental status. COMPARISON: CT from 05/07/2022. TECHNIQUE: Contiguous axial CT images from the level of the skull base through the skull apex, with coronal and s agittal reformats, performed at the local CT facility. 321 images were received by the CT National Teleradiology Program (NTP) for interpretation. RADIATION [...] study. READING PHYSICIAN: Akash Mccoy M.D. -[phone] 05/10/2022 17:35 PDT [facility] National Teleradiology Program [phone] (For Medical Practitioner Use Only ) Attention Patients / Veterans: If you have ques tions or concerns about these test results, please contact your [facility] or primary care team. Primary Interpreting Staff: RADIOLOGY,OUTSIDE SERVICE, Staff Physician / May 08, 2022 07:45 CT T-SPINE (P): RADIOLOGY,OUTSIDE [facility] NUNUNELYLUISANA H [id number] -1935 M SERVICE Exm Date: MAY 08, 2022@19:45 Req Phys: CODIE LEON Loc: OP Unknown /05-13-2022@05:05 Img Loc: CT IMAGING Service: PRIMARY CARE - MED OFFICE (Case [id number] COMPLETE) CT SPINE THORACIC W/O CONTR AST (CT Detailed) CPT:58887 Reason for Study: mrsa bacteremia, spinal surge ry - r/o abscess or discitis Clinical History: [place] IS NOT under investigation for COVID-19 or is COVID-19 negative Defer to radiologist for final CT protocol. Responsible provider name and phone number to n otify for critical findings if other than user placing the order a nd pager listed below: User placing orders pager: [phone] LAST 3: Collection DT Specimen Test Name [...] GFR (eGF 44 L Ref: >=60 Allergies: ([place] only) SIMVASTATIN (Feb 29, 2004) CEPHALEXIN (Mar 01, 2004) Report Status: Verified Date Reported: MAY 08, 2022 Date Verified: MAY 08, 2022 Electronic News Gathering Editor E-Sig: Report: CT SPINE THORACIC W/O CONTRAST [PRINTSET] HISTORY:MRSA bacteremia NUMBER OF IMAGES:1151 COMPARISON: Correlation with images from recent CT abdomen and pelvis May 06, 2022 TECHNIQUE: A non contrast CT of the thoracic sp ine was performed at the local CT. Images were subsequently sent to [facility] [...] thoracic level. READING PHYSICIAN: Luisana Webb MD -[phone] 05/08/2022 19:20 PDT [facility] National Teleradiology Program [phone] (For Medical Practitioner Use Only ) Attention Patients / Veterans: If you have ques tions or concerns about these test results, please contact your o [facility] provider or primary care team. Primary Interpreting Staff: RADIOLOGY,OUTSIDE SERVICE, Staff Physician / May 08, 2022 04:48 CHEST 1 VIEW: RADIOLOGY,OUTSIDE [facility] PM LUISANA EDDY [id number] -1935 M SERVICE Exm Date: MAY 08, 2022@16:48 Req Phys: CODIE LEON Loc: OP Unknown /05-13-2022@05:05 Img Loc: MAIN X-RAY Service: PRIMARY CARE - MED OFFICE (Case [id number] COMPLETE) CHEST 1 VIEW (RAD Detailed) CPT:67581 Proc Modifiers : PORTABLE EXAM Reason for Study: dyspnea Clinical History: [place] IS NOT under investigation for COVID-19 or is COVID-19 negative acute worsening of dyspnea Responsible provider name and phone number to notify for critical findings if other than user placing the order and pager listed below: User placing orders pager: [phone] malini cell [phone] LAST CREATININE 1.1 (05/08/22) Report Status: Verified Date Reported: MAY 08, 2022 Date Verified: MAY 08, 2022 Electronic News Gathering Editor E-Sig: Report: CHEST 1 VIEW HISTORY: dyspnea COMPARISON: 05/06/2022 TECHNIQUE: Frontal view(s) of the chest, submit nola to the CT National Teleradiology Program (NTP) for interp retation. FINDINGS: Reduced lung volumes. Progressive cardiomegaly, and vascular congestion as well as diffuse interstitial prom inence with probable small effusions. Impression: Expiratory exam with findings of CHF and mild e santa READING PHYSICIAN: Nghia Menjivar M.D. -[id number] [phone] 05/08/2022 18:57 EDT [facility] National Teleradiology Program [phone] (For Medical Practitioner Use Only ) Attention Patients / Veterans: If you have ques tions or concerns about these test results, please contact your [facility] provider or primary care team. Primary Interpreting Staff: RADIOLOGY,OUTSIDE SERVICE, Staff Physician / May 07, 2022 10:29 CT HEAD (P): SHANI POLANCO [facility] AM LUISANA EDDY [id number] -1935 M Exm Date: MAY 07, 2022@10:29 Req Phys: BETO AYALA Loc: OP Unknown/0 05-13-2022@05:05 Img Loc: CT IMAGING Service: PRIMARY CARE - MED OFFICE (Case [id number] COMPLETE) CT HEAD/BRAIN W/O CONTRAST ( CT Detailed) CPT:07158 Reason for Study: seizure noted at [facility] Clinical History: IS NOT under investigation for COVID-19 or is COVID-19 negative Defer to radiologist for final CT protocol. Responsible provider name and phone number to n otify for critical findings if other than user placing the order a nd pager listed below: User placing orders pager: [phone] LAST 3: Collection DT Specimen Test Name [...] GFR (eGF 44 L Ref: >=60 Allergies: ([place] only) SIMVASTATIN (Feb 29, 2004) CEPHALEXIN (Mar 01, 2004) Report Status: Verified Date Reported: MAY 07, 2022 Date Verified: MAY 07, 2022 Electronic News Gathering Editor E-Sig:/ES/SHANI POLANCO MD Report: EXAM: CT HEAD/BRAIN W/O CONTRAST HISTORY: seizure noted at [facility] Reason for Study: seizure noted at [facility] [place] IS NOT under investigation for COVID-19 or is COVID-19 negative Defer to radiologist for final CT prot ocol. Responsible provider name and phone number to notify for cr itical findings if other than user placing the order and pager lis nola below: User placing orders pager: [phone] LAST 3: Collecti on DT Specimen Test [...] Primary Interpreting Staff: SHANI POLANCO MD, RADIOLOGIST (Electronic News Gathering Editor) /Javed May 06, 2022 11:40 CHEST 1 VIEW: RADIOLOGY,OUTSIDE [facility] AM LUISANA EDDY [id number] -1935 M SERVICE Exm Date: MAY 06, 2022@11:40 Req Phys: MODESTA VILLANUEVA Loc: [facility] EMERGENCY DEPT WALK-IN (Re Img Loc: MAIN X-RAY Service: Unknown (Case 73 COMPLETE) CHEST 1 VIEW (RAD Detailed) C PT:33899 Proc Modifiers : PORTABLE EXAM Reason for [...] pager listed below: User placing orders pager: [phone] LAST CREATININE 1.2 (04/30/22) Report Status: Verified Date Reported: MAY 06, 2022 Date Verified: MAY 06, 2022 Electronic News Gathering Editor E-Sig: Report: Technique: Frontal chest. No comparison Impression: Cardiac silhouette is mildly enlarged. There is mild pulmonary venous congestion. No definite pleural effusion . No pneumothorax seen. READING PHYSICIAN: Vern Donnelly M.D. -[id number] 07 05/06/2022 13:26 EDT [facility] National Teleradiology Program [phone] (For Medical Practitioner Use Only ) Attention Patients / Veterans: If you have ques tions or concerns about these test results, please contact your o rdering provider or primary care team. Primary Interpreting Staff: RADIOLOGY,OUTSIDE SERVICE, Staff Physician / May 06, 2022 10:36 CT (AP) ABDOMEN/PELVIS (P): RADIOLOGY,OUTSIDE [facility] AM LUISANA EDDY [id number] -1935 M SERVICE Exm Date: MAY 06, 2022@10:36 Req Phys: MODESTA VILLANUEVA Loc: [facility] EMERGENCY DEPT WALK-IN (Re Img Loc: CT IMAGING Service: Unknown (Case 66 COMPLETE) CT (AP) ABDOMEN/PELVIS W CONT RAST(CT Detailed) CPT:99022 Reason for Study: fever, back pain Clinical [...] pager listed below: User placing orders pager: [phone] LAST 3: Collection DT Specimen Test Name [...] ESTIMATED GFR(eGF 44 L Ref: >=60 Allergies: ([place] only) SIMVASTATIN (Feb 29, 2004) CEPHALEXIN (Mar 01, 2004) To see allergies from all [facility] locations click Re ports tab>Remote Data>All Available Sites>Clinical Reports>Aller gies. Report Status: Verified Date Reported: MAY 06, 2022 Date Verified: MAY 06, 2022 Electronic News Gathering Editor E-Sig: Report: Exam: CT (AP) ABDOMEN/PELVIS W CONTRAST [PRINTS ET] Clinical History: fever, back pain Number of images: 918 Comparison: No priors available Technique: The study was protocoled and supervi sed at the local CT facility. CT of the abdomen and pelvis was performed afte r the uneventful administration of iodinated contrast. Images we re received by the CT National Teleradiology Program (NTP) for interpretation. Total [...] findings, above. READING PHYSICIAN: Eduin Donaldson M.D. -[phone] 05/06/2022 12:48 [facility] [employer]radiology Program [phone] (For Medical Practitioner Use Only ) Attention Patients / Veterans: If you have ques tions or concerns about these test results, please contact your [facility] provider or primary care team. Primary Interpreting Staff: RADIOLOGY,OUTSIDE SERVICE, Staff Physician / May 06, 2022 10:35 CT HEAD/BRAIN W/O CONTRAST: RADIOLOGY,OUTSIDE [facility] LUISANA EDDY [id number] -1935 SERVICE Exm Date: MAY 06, 2022@10:35 Req Phys: MODESTA VILALNUEVA [facility] [facility] (Re Img Loc: CT IMAGING Service: Unknown (Case 64 COMPLETE) CT HEAD/BRAIN W/O CONTRAST (C T Detailed) CPT:08250 Reason for Study: falls, blood thinner, AMS, se izure Clinical History: falls, blood thinner, AMS, seizure IS under investigation (PUI) for COVID- 19 or is COVID-19+ Defer to radiologist for final CT protocol. Responsible provider name and phone number to n otify for critical findings if other than user placing the order a nd pager listed below: User placing orders pager: [phone] LAST 3: Collection DT Specimen Test Name [...] ESTIMATED GFR(eGF 44 L Ref: >=60 Allergies: ([place] only) SIMVASTATIN (Feb 29, 2004) CEPHALEXIN (Mar 01, 2004) To see allergies from all CT locations click Re ports tab>Remote Data>All Available Sites>Clinical Reports>Aller gies. Report Status: Verified Date Reported: MAY 06, 2022 Date Verified: MAY 06, 2022 Electronic News Gathering Editor E-Sig: Report: CT HEAD/BRAIN W/O CONTRAST Clinical History: falls, blood thinner, AMS, se izure Number of Images: 532 Comparison: 03/12/2022 Technique: The study was protocoled and supervi sed at the local CT facility. CT of the head without contrast. I mages were subsequently received by the CT National Telera diology Program (NTP) for interpretation. [...] T findings. READING PHYSICIAN: Eduin Donaldson M.D. -[phone] 05/06/2022 12:30 [facility] National Teleradiology Program [phone] (For Medical Practitioner Use Only ) Attention Patients / Veterans: If you have ques tions or concerns about these test results, please contact your o rdering provider or primary care team. Primary Interpreting Staff: RADIOLOGY,OUTSIDE SERVICE, Staff Physician / May 06, 2022 10:35 CT CERVICAL SPINE W/O CONTRAST: RADIOLOGY,OUT SIDE [facility] AM LUISANA EDDY [phone] M SERVICE Exm Date: MAY 06, 2022@10:35 Req Phys: MODESTA VILLANUEVA Loc: [facility] EMERGENC[facility] DEPT WALK-IN (Re Img Loc: CT IMAGING Service: Unknown (Case 65 COMPLETE) CT CERVICAL SPINE W/O CONTRAS T (CT Detailed) CPT:35193 Reason for Study: falls, blood thinner, AMS, se izure Clinical History: falls, blood thinner, AMS, seizure [place] IS under investigation (PUI) for COVID- 19 or is COVID-19+ Defer to radiologist for final CT protocol. Responsible provider name and phone number to n otify for critical findings if other than user placing the order a nd pager listed below: User placing orders pager: [phone] LAST 3: Collection DT Specimen Test Name [...] ESTIMATED GFR(eGF 44 L Ref: >=60 Allergies: ([place] only) SIMVASTATIN (Feb 29, 2004) CEPHALEXIN (Mar 01, 2004) To see allergies from all [facility] locations click Re ports tab>Remote Data>All Available Sites>Clinical Reports>Aller gies. Report Status: Verified Date Reported: MAY 06, 2022 Date Verified: MAY 06, 2022 Electronic News Gathering Editor E-Sig: Report: CT CERVICAL SPINE W/O CONTRAST HISTORY:falls, blood thinner, AMS, seizure NUMBER OF IMAGES:770 COMPARISON: None available. TECHNIQUE: A non contrast CT of the cervical sp ine was performed at the local CT. Images were subsequently sent to [facility] [...] findings, above. READING PHYSICIAN: Eduin Donaldson M.D. -[phone] 05/06/2022 12:33 [facility] National Teleradiology Program [phone] (For Medical Practitioner Use Only ) Attention Patients / Veterans: If you have ques tions or concerns about these test results, please contact your [facility] provider or primary care team. [...] the Encounter. The data comes from all CT treatment facilities. Date/Time Pathology Report Provider Source May 09, 2022 05:30 AM LR MICROBIOLOGY REPORT: [facility] Reporting Lab: [facility] [CLIA# [id number]] [place] [address] Accession [UID]: [id number] [[id number]] Receiv ed: May 09, 2022@01:35 Collection sample: BLOOD Collection date: Apr 05:30 Provider: CODIE LEON Comment on specimen: LEFT ARM, RECEIVED 2 BLOOD CULTURE BOTTLES Test(s) ordered: CULTURE & SUSCEPTIBILITY...... 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 R TRIMETH/SULFA................. S TETRACYCLINE.................. S CLINDAMYCIN................... S RIFAMPIN...................... S VANCOMYCIN.................... S Bacteriology Remark(s): VANCOMYCIN SHAMIKA: <=0.5 ug/mL THIS REPORT IS FINAL =--=--=--=--=--=--=--=--=--=--=--=--=--= --=--=--=--=--=--=--=--=--=--=--=--=-- Performing Laboratory: Bacteriology Report Performed By: [facility] [CLIA# [id number]] [place] [address] May 08, 2022 03:23 PM LR MICROBIOLOGY REPORT: [facility] Reporting Lab: [facility] [CLIA# [id number]] [place] [address] Accession [UID]: [id number] [[id number]] Receiv ed: May 08, 2022@15:41 Collection sample: BLOOD Collection date: Apr 15:23 Provider: CODIE LEON Comment on specimen: LEFT ARM, RECEIVED 2 BLOOD CULTURE BOTTLES Test(s) ordered: CULTURE & SUSCEPTIBILITY...... completed: May 10, 2022 * BACTERIOLOGY FINAL REPORT => May 10, 2022 16:3 1 TECH CODE: [id number] CULTURE RESULTS: GROWTH SAME THAT OF ANOTHER CULTURE Comment: FOR SUSCEPTIBILITY REPORT SEE PREVIOUS POSITIVE SAME MB 22 [id number] ( 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 from Anaerobic bottle ) ( Recovered from Aerobic bottle ) Bacteriology Remark(s): THIS REPORT IS FINAL =--=--=--=--=--=--=--=--=--=--=--=--=--= --=--=--=--=--=--=--=--=--=--=--=--=-- Performing Laboratory: Bacteriology Report Performed By: [facility] [CLIA# [id number]] [place] [address] May 08, 2022 03:21 PM LR MICROBIOLOGY REPORT: [facility] Reporting Lab: [facility] [CLIA# [id number]] [place] [address] Accession [UID]: [id number] [[id number]] Receiv ed: May 08, 2022@15:40 Collection sample: BLOOD Collection date: Apr 15:21 Provider: CODIE LEON Comment on specimen: RT ARM, RECEIVED 2 BLOOD CU LTURE BOTTLES Test(s) ordered: CULTURE & SUSCEPTIBILITY...... completed: May 10, 2022 * BACTERIOLOGY FINAL REPORT => May 10, 2022 16:3 1 TECH CODE: [id number] CULTURE RESULTS: GROWTH SAME THAT OF ANOTHER CULTURE Comment: FOR SUSCEPTIBILITY REPORT SEE PREVIOUS POSITIVE SAME MB 22 [id number] ( 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 from Anaerobic bottle ) ( Recovered from Aerobic bottle ) Bacteriology Remark(s): THIS REPORT IS FINAL =--=--=--=--=--=--=--=--=--=--=--=--=--= --=--=--=--=--=--=--=--=--=--=--=--=-- Performing Laboratory: Bacteriology Report Performed By: [facility] [CLIA# [id number]] [place] [address] May 07, 2022 05:30 AM LR MICROBIOLOGY REPORT: [facility] Reporting Lab: [facility] [CLIA# [id number]] [place] [address] Accession [UID]: [id number] [[id number]] Receiv ed: May 07, 2022@01:35 Collection sample: [...] REPORT SEE PREVIOUS POSITIVE SAME MB 22 [id number] ( 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 from Aerobic bottle ) ( Recovered from Anaerobic bottle ) Bacteriology Remark(s): THIS REPORT IS FINAL =--=--=--=--=--=--=--=--=--=--=--=--=--= --=--=--=--=--=--=--=--=--=--=--=--=-- Performing Laboratory: Bacteriology Report Performed By: [facility] [CLIA# [id number]] [place] [address] May 06, 2022 10:51 AM LR MICROBIOLOGY REPORT: [facility] Reporting Lab: [facility] [CLIA# [id number]] [place] [address] Accession [UID]: [id number] [[id number]] Receiv ed: May 06, 2022@11:32 Collection sample: [...] --=--=--=--=--=--=--=--=--=--=--=--=-- Performing Laboratory: Bacteriology Report Performed By: [facility] [CLIA# [id number]] [place] [address] May 06, 2022 10:34 AM LR MICROBIOLOGY REPORT: [facility] Reporting Lab: [facility] [CLIA# [id number]] [place] [address] Accession [UID]: [id number] [[id number]] Receiv ed: May 06, 2022@10:51 Collection sample: BLOOD Collection date: Apr 10:34 Provider: MODESTA VILLANUEVA Comment on specimen: RECEIVED 2 BLOOD CULTURE [facility] Test(s) ordered: CULTURE & SUSCEPTIBILITY...... completed: May 07, 2022 * BACTERIOLOGY FINAL REPORT => May 08, 2022 08:3 0 TECH CODE: [id number] CULTURE RESULTS: STAPHYLOCOCCUS AUREUS METHICILL IN RESISTANT [...] --=--=--=--=--=--=--=--=--=--=--=--=-- Performing Laboratory: Bacteriology Report Performed By: [facility] [CLIA# [id number]] [place] [address] May 06, 2022 10:00 AM LR MICROBIOLOGY REPORT: [facility] Reporting Lab: [facility] [CLIA# [id number]] [place] [address] Accession [UID]: [id number] [[id number]] Receiv ed: May 06, 2022@10:41 Collection sample: [...] REPORT SEE PREVIOUS POSITIVE SAME MB 22 [id number] ( 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 from Anaerobic bottle ) ( Recovered from Aerobic bottle ) Bacteriology Remark(s): THIS REPORT IS FINAL =--=--=--=--=--=--=--=--=--=--=--=--=--= --=--=--=--=--=--=--=--=--=--=--=--=-- Performing Laboratory: Bacteriology Report Performed By: [facility] [CLIA# [id number]] [place] [address]
--- OUTSIDE RECORDS SUMMARY | 2022-05-15 09:38 | XMS_ITS | Encounter Summary ---
:1935 Author Organization [facility] Address [address] [place] [address] Support Name Relationship Address Phone WADE LORENZO Unavailable [id number] [place] [address] WADE LORENZO Unavailable [address] [place] [address] MARILIA MARSHALLA Unavailable [address] [facility] [place] [address] GOGEORGE, ARACELI Unavailable [address] [place] [address] Insurance Providers: All historical and current Section [...] Chan [place] MCR Aug 19, [id number] Kristel EDDY [facility] (WNR) ADVANTAGE (WNR) 2017 8 [id number] [phone] [facility] 1 [place] M[place] Aug 19, [id number] Kristel EDDY [facility] (WNR) ADVANTAGE (WNR) 2016 8 [id number] [phone] [facility] 1 Selected Encounter This section includes the information on record at [place] for the Encounter. Date/Time Encounter Type Encounter Description Reason Provider Source May 08, 2022 01:00 Inpatient Visit ADMIN PAT ACTIVTIES SYS TEM,CIS-ARK AM (MASNONCT) IHE Encounter Template Text not used by [place] Plan of Treatment: Future Appointments (+ 6 months) and Future Tests (+/- 45 days) The Plan of Treatment section includes future care activities for the patient [facility] [place] [facility] This section includes future appointments and future orders which are active, pending orscheduled.Future Appointments This section includes appointments that were scheduled to occur 6 months from the date of the Encounter, up to a maximum of 20 appointments. The data comes from all [place] treatment facilities. Appointment Date/Time Appointment Type Appointment [...] the Encounter. The data comes from all [place] treatment [facility]. Test Date/Time Test Type Test Details Facility Name Apr 30, 2022 08:21 Laboratory - Chemistry URINALYSIS URINE WC ON CE [facility] AM Order Apr 30, 2022 08:21 Laboratory - CULTURE & SUSCEPTIBILITY [facility] AM Microbiology Order URINE WC May 06, 2022 12:00 Laboratory - Blood ABO/RH - LAB BLOOD [facility] AM Bank Order May 06, 2022 10:11 Laboratory - Blood TYPE & SCREEN - LAB [facility] AM Bank Order BLOOD WC May 06, 2022 10:27 Pharmacy [facility] AM Medication Order May 06, 2022 10:28 [facility] AM Infusion Order May 06, 2022 10:34 [facility] AM Infusion Order May 06, 2022 10:41 [facility] AM Infusion Order May 06, 2022 12:15 [facility] PM Medication Order May 06, 2022 01:31 [facility] PM Medication Order May 06, 2022 04:49 [facility] PM Medication Order May 07, 2022 01:00 Laboratory - CULTURE & SUSCEPTIBILITY [facility] PM Microbiology Order BLOOD WC ONCE May 11, 2022 09:07 Laboratory - CULTURE & SUSCEPTIBILITY [facility] AM Microbiology Order BLOOD WC May 11, 2022 09:07 Laboratory - CULTURE & SUSCEPTIBILITY [facility] AM Microbiology Order BLOOD WC May 11, 2022 09:38 Laboratory - Chemistry EOSINOPHIL SMEAR,URINE [facility] AM Order URINE WC ONCE May 11, 2022 09:38 Laboratory - Chemistry FENA URINE WC ONCE MIN [facility] AM Order May 11, 2022 09:38 Laboratory - Chemistry URINALYSIS URINE WC ON CE [facility] AM Order Lab Results: +/- [...] [facility] [address] [facility] [address] Performing Lab: [facility] [address] [facility] [address] FINGERSTICK GLUCOSE 367 H 70-100 May 11, 2022 07:05 [facility] BASIC METABOLIC Specimen Type: PLASMA AM PANEL+MG No comment enter ed. Ordering Provid er: OG DIAL Report Released Date/Time: May 11, 2022 04:46 AM Reporting Lab: [facility] [address] [facility] [address] Performing Lab: [facility] [address] [facility] [address] CREATININE 1.6 H 0.7-1.2 UREA NITROGEN 28 [...] 09:15 AM Reporting Lab: [facility] [address] [facility] [address] Performing Lab: [facility] [address] [facility] [address] BNP 59 <99 May 11, 2022 07:05 AM [facility] CK,TOTAL Specim en Type: PLASMA No comment enter ed. Ordering Provid er: CODIE LEON Report Released Date/Time: May 11, 2022 09:08 AM Reporting Lab: [facility] [address] [facility] [address] Performing Lab: [facility] [address] [facility] [address] CK,TOTAL 16 L 39-208 May 11, 2022 07:05 [facility] LIVER FUNCTION TESTS Spec imen Type: PLASMA AM No comment enter ed. Ordering Provid er: CODIE LEON Report Released Date/Time: May 11, 2022 09:08 AM Reporting Lab: [facility] [address] [facility] [address] Performing Lab: [facility] [address] [facility] [address] BILIRUBIN, TOTAL 1.6 H 0.2-1.2 ALKALINE PHOSPHATASE 102 40-150 ALT/SGPT 42 <55 AST/SGOT 30 <34 GAMMA GTP 52 <64 DIR. BILIRUBIN 1.2 H <0.5 May 11, 2022 07:05 AM [facility] CBC Specim en Type: BLOOD No comment enter ed. Ordering Provid er: OG DIAL Report Released Date/Time: May 11, 2022 04:46 AM Reporting Lab: [facility] [address] [facility] [address] Performing Lab: [facility] [address] [facility] [address] WBC 15.93 H 4.0-11.0 RBC 3.60 L [...] May 11, 2022 06:42 AM Reporting Lab: [facility] [address] [facility] [address] Performing Lab: [facility] [address] [facility] [address] FINGERSTICK GLUCOSE 345 H 70-100 May 11, 2022 02:24 [facility] FINGERSTICK GLUCOSE Speci men Type: BLOOD AM Comment: Mark casillas Ordering Provid er: CODIE LEON Report Released Date/Time: May 11, 2022 02:44 AM Reporting Lab: [facility] [address] [facility] [address] Performing Lab: [facility] [address] [facility] [address] FINGERSTICK GLUCOSE 375 H 70-100 May 10, 2022 08:38 [facility] FINGERSTICK GLUCOSE Speci men Type: BLOOD PM Comment: Mark casillas Ordering Provid er: CODIE LEON Report Released Date/Time: May 11, 2022 12:31 AM Reporting Lab: [facility] [address] [facility] [address] Performing Lab: [facility] [address] [facility] [address] FINGERSTICK GLUCOSE 346 H 70-100 May 10, 2022 05:05 [facility] FINGERSTICK GLUCOSE Speci men Type: BLOOD PM Comment: Mark casillas Nurse Notified Ordering Provi violeta: CODIE LEON Report Released Date/Time: May 10, 2022 11:50 PM Reporting Lab: [facility] [address] [facility] [address] Performing Lab: [facility] [address] [facility] [address] FINGERSTICK GLUCOSE 245 H 70-100 May 10, 2022 02:00 [facility] VANCOMYCIN (TROUGH) Speci men Type: PLASMA PM No comment enter ed. Ordering Provid er: CODIE LEON Report Released Date/Time: May 11, 2022 01:34 AM Reporting Lab: [facility] [address] [facility] [address] Performing Lab: [facility] [address] [facility] [address] VANCOMYCIN (TROUGH) 31.8 H 10.0-15.0 May 10, 2022 [facility] BASIC METABOLIC Specimen Typ e: PLASMA 02:00 PM PANEL+MG No comment enter ed. Ordering Provid er: CODIE LEON Report Released Date/Time: May 11, 2022 01:34 AM Reporting Lab: [facility] [address] Performing Lab: [facility] [address] CREATININE 1.1 .7-1.2 UREA NITROGEN 22 8-26 [...] May 10, 2022 08:52 PM Reporting Lab: [facility] [address] Performing Lab: [facility] [address] WBC 16.24 H 4.0-11.0 RBC 3.76 L [...] [facility] [address] [facility] [address] Performing Lab: [facility] [address] [facility] [address] FINGERSTICK GLUCOSE 253 H 70-100 May 10, 2022 06:16 [facility] FINGERSTICK GLUCOSE Speci men Type: BLOOD AM Comment: Mark casillas Nurse Notified Ordering Provid er: CODIE LEON Report Released Date/Time: May 10, 2022 11:50 PM Reporting Lab: [facility] [address] [facility] [address] Performing Lab: [facility] [address] [facility] [address] FINGERSTICK GLUCOSE 271 H 70-100 May 09, 2022 09:07 [facility] FINGERSTICK GLUCOSE Speci men Type: BLOOD PM Comment: Mark casillas Ordering Provid er: CODIE LEON Report Released Date/Time: May 10, 2022 11:50 PM Reporting Lab: [facility] [address] [facility] [address] Performing Lab: [facility] [address] [facility] [address] FINGERSTICK GLUCOSE 209 H 70-100 May 09, 2022 05:33 [facility] FINGERSTICK GLUCOSE Speci men Type: BLOOD PM Comment: Mark casillas Nurse Notified Ordering Provid er: CODIE LEON Report Released Date/Time: May 09, 2022 05:53 PM Reporting Lab: [facility] [address] [facility] [address] Performing Lab: [facility] [address] [facility] [address] FINGERSTICK GLUCOSE 251 H 70-100 May 09, 2022 02:09 [facility] VANCOMYCIN (PEAK) Specime n Type: SERUM PM No comment enter ed. Ordering Provid er: AMARIS DE JESUS Report Released Date/Time: May 09, 2022 09:33 AM Reporting Lab: [facility] [address] [facility] [address] Performing Lab: [facility] [address] [facility] [address] VANCOMYCIN (PEAK) 24.2 20.0-40.0 May 09, 2022 11:19 [facility] FINGERSTICK GLUCOSE Speci men Type: BLOOD AM Comment: Mark casillas Nurse Notified Ordering Provid er: CODIE LEON Report Released Date/Time: May 09, 2022 11:38 AM Reporting Lab: [facility] [address] [facility] [address] Performing Lab: [facility] [address] [facility] [address] FINGERSTICK GLUCOSE 240 H 70-100 May 09, 2022 08:13 [facility] VANCOMYCIN (TROUGH) Speci men Type: SERUM AM No comment enter ed. Ordering Provid er: AMARIS DE JESUS Report Released Date/Time: May 08, 2022 11:14 AM Reporting Lab: [facility] [address] [facility] [address] Performing Lab: [facility] [address] [facility] [address] VANCOMYCIN (TROUGH) 16.1 H 10.0-15.0 May 09, 2022 05:33 AM [facility] CBC & DIFF Specim en Type: BLOOD Comment: Automa nola Differential Performed Ordering Provid er: CODIE LEON Report Released Date/Time: May 08, 2022 05:27 PM Reporting Lab: [facility] [address] [facility] [address] Performing Lab: [facility] [address] [facility] [address] WBC 14.92 H 4.0-11.0 RBC 3.41 L [...] 05:27 PM Reporting Lab: [facility] [address] [facility] [address] Performing Lab: [facility] [address] [facility] [address] CREATININE 1.2 0.7-1.2 UREA NITROGEN 25 8-26 [...] 07:27 AM Reporting Lab: [facility] [address] [facility] [address] Performing Lab: [facility] [address] [facility] [address] FINGERSTICK GLUCOSE 295 H 70-100 May 08, 2022 09:32 PM [facility] EXTRA MINT TUBE Specim en Type: PLASMA No comment enter ed. Ordering Provid er: MD ESTEBAN Report Released Date/Time: May 08, 2022 09:32 PM Reporting Lab: [facility] [address] [facility] [address] Performing Lab: [facility] [address] [facility] [address] EXTRA MINT TUBE RECEIVED May 08, 2022 09:32 PM [facility] EXTRA PURPLE TUBE Spec imen Type: BLOOD No comment enter ed. Ordering Provid er: MD ESTEBAN Report Released Date/Time: May 08, 2022 09:32 PM Reporting Lab: [facility] [address] [facility] [address] Performing Lab: [facility] [address] [facility] [address] EXTRA PURPLE TUBE RECEIVED May 08, 2022 09:32 PM [facility] EXTRA BLUE TUBE Specim en Type: PLASMA No comment enter ed. Ordering Provid er: MD ESTEBAN Report Released Date/Time: May 08, 2022 09:32 PM Reporting Lab: [facility] [address] [facility] [address] Performing Lab: [facility] [address] [facility] [address] EXTRA BLUE TUBE RECEIVED May 08, 2022 09:32 [facility] EXTRA GOLD GEL TUBE Speci men Type: SERUM PM No comment enter ed. Ordering Provid er: MD ESTEBAN Report Released Date/Time: May 08, 2022 09:32 PM Reporting Lab: [facility] [address] [facility] [address] Performing Lab: [facility] [address] [facility] [address] EXTRA GOLD GEL TUBE RECEIVED May 08, 2022 09:32 PM [facility] EXTRA BRASWELL TUBE Specim en Type: PLASMA No comment enter ed. Ordering Provid er: MD ESTEBAN Report Released Date/Time: May 08, 2022 09:37 PM Reporting Lab: [facility] [address] [facility] [address] Performing Lab: [facility] [address] [facility] [address] EXTRA BRASWELL TUBE RECEIVED May 08, 2022 09:32 PM [facility] LACTIC ACID Specim en Type: PLASMA No comment enter ed. Ordering Provid er: OG DIAL Report Released Date/Time: May 08, 2022 09:49 PM Reporting Lab: [facility] [address] [facility] [address] Performing Lab: [facility] [address] [facility] [address] LACTIC ACID 2.5 H 0.5-2.2 May 08, 2022 09:32 PM [facility] BNP Specim en Type: PLASMA No comment enter ed. Ordering Provid er: OG DIAL Report Released Date/Time: May 08, 2022 09:50 PM Reporting Lab: [facility] [address] [facility] [address] Performing Lab: [facility] [address] [facility] [address] BNP 897 H <99 May 08, 2022 09:32 PM [facility] BLOOD GASES Specim en Type: VENOUS BLOOD Comment: O2 THE RAPY = 3L PM Ordering Provid er: OG DIAL Report Released Date/Time: May 08, 2022 09:50 PM Reporting Lab: [facility] [address] Performing Lab: [facility] [address] PH 7.36 7.33-7.43 PCO2 47 41-51 BICARBONATE 24.4 21.0-30.0 PO2 31 L 35-40 OXYGEN SATURATION 54.7 L 70.0-75.0 PH(TEMP CORRECTED) 7.37 7.33-7.43 PCO2(TEMP CORRECTED) 46 41-51 PO2(TEMP CORRECTED) 31 L 35-40 PATIENT TEMPERATURE 36.7 May 08, 2022 09:32 PM [facility] CBC Specim en Type: BLOOD No comment enter ed. Ordering Provid er: OG DIAL Report Released Date/Time: May 08, 2022 09:50 PM Reporting Lab: [facility] [address] Performing Lab: [facility] [address] WBC 18.54 H 4.0-11.0 RBC 3.68 L 4.6-6.2 HGB 11.5 L 13.5-17.9 HCT 35.1 L 41-54 MCV 95.4 80-100 MCH 31.3 27-33 MCHC 32.8 32.0-37.5 PLT 221 150-400 MPV 11.1 H 7.4-10.4 RDW 14.9 H 11.5-14.5 May 08, 2022 [facility] COMPREHENSIVE METABOLIC Spec imen Type: PLASMA 09:32 PM PANEL+MG No comment enter ed. Ordering Provid er: OG DIAL Report Released Date/Time: May 08, 2022 09:50 PM Reporting Lab: [facility] [address] Performing Lab: [facility] [address] CREATININE 1.3 H 0.7-1.2 UREA NITROGEN 26 [...] [facility] [address] [facility] [address] Performing Lab: [facility] [address] [facility] [address] FINGERSTICK GLUCOSE 272 H 70-100 May 08, 2022 06:56 [facility] FINGERSTICK GLUCOSE Speci men Type: BLOOD PM Comment: Makr casillas Ordering Provid er: CODIE LEON Report Released Date/Time: May 08, 2022 07:08 PM Reporting Lab: [facility] [address] [facility] [address] Performing Lab: [facility] [address] [facility] [address] FINGERSTICK GLUCOSE 262 H 70-100 May 08, 2022 04:50 [facility] FINGERSTICK GLUCOSE Speci men Type: BLOOD PM Comment: Nurse Notified Ordering Provid er: CODIE LEON Report Released Date/Time: May 08, 2022 05:14 PM Reporting Lab: [facility] [address] [facility] [address] Performing Lab: [facility] [address] [facility] [address] FINGERSTICK GLUCOSE 330 H 70-100 May 08, 2022 11:21 [facility] FINGERSTICK GLUCOSE Speci men Type: BLOOD AM Comment: Mark casillas Nurse Notified Ordering Provid er: CODIE LEON Report Released Date/Time: May 08, 2022 11:51 AM Reporting Lab: [facility] [address] [facility] [address] Performing Lab: [facility] [address] [facility] [address] FINGERSTICK GLUCOSE 231 H 70-100 May 08, 2022 07:25 AM [facility] CBC & DIFF Specim en Type: BLOOD Comment: Automa nola Differential Performed Ordering Provid er: EBTO AYALA Report Released Date/Time: May 07, 2022 12:28 PM Reporting Lab: [facility] [address] [facility] [address] Performing Lab: [facility] [address] [facility] [address] WBC 16.29 H 4.0-11.0 RBC 3.38 L [...] [address] [facility] [address] Performing Lab: [facility] [address] .INR 1.2 H 0.8-1.1 .PT 14.2 H 9.4-12.5 May 08, 2022 [facility] COMPREHENSIVE METABOLIC Spec imen Type: PLASMA 07:25 AM PANEL+MG No comment enter ed. Ordering Provid er: BETO AYALA Report Released Date/Time: May 07, 2022 12:28 PM Reporting Lab: [facility] [address] [facility] [address] Performing Lab: [facility] [address] [facility] [address] CREATININE 1.1 0.7-1.2 UREA NITROGEN 27 H [...] [address] [facility] [address] Performing Lab: [facility] [address] [facility] [address] FINGERSTICK GLUCOSE 276 H 70-100 May 07, 2022 08:36 [facility] FINGERSTICK GLUCOSE Speci men Type: BLOOD PM Comment: Nurse Notified Ordering Provid er: CODIE LEON Report Released Date/Time: May 08, 2022 12:29 AM Reporting Lab: [facility] [address] [facility] [address] Performing Lab: [facility] [address] [facility] [address] FINGERSTICK GLUCOSE 282 H 70-100 May 07, 2022 07:04 PM [facility] LACTIC ACID Specim en Type: PLASMA No comment enter ed. Ordering Provid er: BETO AYALA Report Released Date/Time: May 07, 2022 06:28 PM Reporting Lab: [facility] [address] [facility] [address] Performing Lab: [facility] [address] [facility] [address] LACTIC ACID 2.0 0.5-2.2 May 07, 2022 04:46 [facility] FINGERSTICK GLUCOSE Speci men Type: BLOOD PM Comment: Nurse Notified Ordering Provid er: BETO AYALA Report Released Date/Time: May 07, 2022 05:00 PM Reporting Lab: [facility] [address] [facility] [address] Performing Lab: [facility] [address] [facility] [address] FINGERSTICK GLUCOSE 274 H 70-100 May 07, 2022 12:47 [facility] FINGERSTICK GLUCOSE Speci men Type: BLOOD PM Comment: Mark casillas Nurse Notified Ordering Provid er: BETO AYALA Report Released Date/Time: May 07, 2022 05:32 PM Reporting Lab: [facility] [address] [facility] [address] Performing Lab: [facility] [address] [facility] [address] FINGERSTICK GLUCOSE 309 H 70-100 May 07, 2022 06:35 [facility] FINGERSTICK GLUCOSE Speci men Type: BLOOD AM Comment: Mark casillas Nurse Notified Ordering Provid er: GAYLA DOMINGUEZ Report Released Date/Time: May 07, 2022 06:46 AM Reporting Lab: [facility] [address] [facility] [address] Performing Lab: [facility] [address] [facility] [address] FINGERSTICK GLUCOSE 352 H 70-100 May 07, 2022 06:15 AM [facility] ALBUMIN Specim en Type: PLASMA No comment enter ed. Ordering Provid er: GAYLA DOMINGUEZ Report Released Date/Time: May 06, 2022 06:33 PM Reporting Lab: [facility] [address] [facility] [address] Performing Lab: [facility] [address] [facility] [address] ALBUMIN 3.0 L 3.5-5.2 May 07, 2022 [facility] COMPREHENSIVE METABOLIC Spec imen Type: PLASMA 06:15 AM PANEL+MG No comment enter ed. Ordering Provid er: GAYLA DOMINGUEZ Report Released Date/Time: May 06, 2022 09:11 PM Reporting Lab: [facility] [address] [facility] [address] Performing Lab: [facility] [address] [facility] [address] CREATININE 1.2 0.7-1.2 UREA NITROGEN 25 8-26 [...] May 06, 2022 09:11 PM Reporting Lab: [facility] [address] Performing Lab: [facility] [address] WBC 20.25 H 4.0-11.0 RBC 3.54 L [...] May 06, 2022 07:13 PM Reporting Lab: [facility] [address] Performing Lab: [facility] [address] [facility] [address] LACTIC ACID 2.7 H 0.5-2.2 May 06, 2022 10:45 [facility] FINGERSTICK GLUCOSE Speci men Type: BLOOD PM Comment: Save R esult Nurse Notified Ordering Provid er: GAYLA DOMINGUEZ Report Released Date/Time: May 07, 2022 12:08 AM Reporting Lab: [facility] [address] [facility] [address] Performing Lab: [facility] [address] [facility] [address] FINGERSTICK GLUCOSE 320 H 70-100 May 06, 2022 06:53 [facility] MRSA SURVL NARES Specimen Type: NARES PM DNA No comment enter ed. Ordering Provid er: GAYLA DOMINGUEZ Report Released Date/Time: May 06, 2022 06:33 PM Reporting Lab: [facility] [address] [facility] [address] Performing Lab: [facility] [address] [facility] [address] MRSA SURVL NARES DNA POSITIVE HH Negative May 06, 2022 06:51 PM [facility] LACTIC ACID Specim en Type: PLASMA No comment enter ed. Ordering Provid er: GAYLA DOMINGUEZ Report Released Date/Time: May 06, 2022 06:04 PM Reporting Lab: [facility] [address] [facility] [address] Performing Lab: [facility] [address] [facility] [address] LACTIC ACID 3.1 H 0.5-2.2 May 06, 2022 06:51 [facility] CARDIAC TROPONIN I Specim en Type: PLASMA PM No comment enter ed. Ordering Provid er: GAYLA DOMINGUEZ Report Released Date/Time: May 06, 2022 06:05 PM Reporting Lab: [facility] [address] [facility] [address] Performing Lab: [facility] [address] [facility] [address] CARDIAC TROPONIN I <0.028 <0.028 May 06, 2022 06:51 [facility] EXTRA GOLD GEL TUBE Speci men Type: SERUM PM No comment enter ed. Ordering Provid er: GAYLA DOMINGUEZ Report Released Date/Time: May 06, 2022 06:52 PM Reporting Lab: [facility] [facility] [address] [facility] [address] [address] Performing Lab: [facility] [address] [facility] [facility] [address] EXTRA GOLD GEL TUBE RECEIVED May 06, 2022 06:51 [facility] C-REACTIVE PROTEIN Specim en Type: PLASMA PM No comment enter ed. Ordering Provid er: GAYLA DOMINGUEZ Report Released Date/Time: May 06, 2022 09:29 PM Reporting Lab: [facility] [address] Performing Lab: [facility] [address] C-REACTIVE PROTEIN 392.40 H <5.00 May 06, 2022 10:51 AM [facility] URINALYSIS Specim en Type: URINE No comment enter ed. Ordering Provid er: MODESTA VILLANUEVA Report Released Date/Time: May 06, 2022 10:11 AM Reporting Lab: [facility] [address] Performing Lab: [facility] [address] URINE COLOR YELLOW SPECIFIC GRAVITY 1.020 1.003-1.035 [...] 10:11 AM Reporting Lab: [facility] [address] Performing Lab: [facility] [address] COVID-19 (CEPHEID) Not Detected Not Dete cted May 06, 2022 10:20 AM [facility] POC ABG/LACTATE Specim en Type: VENOUS BLOOD No comment enter ed. Ordering Provid er: MODESTA VILLANUEVA Report Released Date/Time: May 06, 2022 10:22 AM Reporting Lab: [facility] [address] Performing Lab: [facility] [address] POC PH 7.410 7.31-7.41 POC PCO2 28.9 [...] [facility] [address] [address] Performing Lab: [facility] [address] [facility] [address] PHOSPHORUS 2.5 2.3-4.7 May 06, 2022 10:00 [facility] PROTHROMBIN TIME/INR Spec imen Type: PLASMA AM No comment enter ed. Ordering Provid er: MODESTA VILLANUEVA Report Released Date/Time: May 06, 2022 10:11 AM Reporting Lab: [facility] [address] [address] Performing Lab: [facility] [address] [facility] [address] .INR 2.5 H 0.8-1.1 .PT 29.2 H 9.4-12.5 May 06, 2022 10:00 [facility] CARDIAC TROPONIN I Specim en Type: PLASMA AM Comment: Critic al Value Reported To: BROOKS COTE 05-06-2022 @1053 BY MBB. Critical value report confirmed. Ordering Provid er: MODESTA VILLANUEVA Report Released Date/Time: May 06, 2022 10:11 AM Reporting Lab: [facility] [address] [facility] [address] Performing Lab: [facility] [address] [facility] [address] CARDIAC TROPONIN I 0.035 HH <0.028 May 06, 2022 10:00 [facility] ACT PART THROMBO TIME Spe cimen Type: PLASMA AM No comment enter ed. Ordering Provid er: MODESTA VILLANUEVA Report Released Date/Time: May 06, 2022 10:11 AM Reporting Lab: [facility] [address] [facility] [address] Performing Lab: [facility] [address] [facility] [address] APTT 37.8 H 25.1-36.5 May 06, 2022 10:00 AM [facility] PROCALCITONIN Specim en Type: PLASMA No comment enter ed. Ordering Provid er: MODESTA VILLANUEVA Report Released Date/Time: May 06, 2022 10:11 AM Reporting Lab: [facility] [address] [facility] [address] Performing Lab: [facility] [address] [facility] [address] PROCALCITONIN 22.29 H <0.09 May 06, 2022 10:00 AM [facility] LIPASE Specim en Type: PLASMA No comment enter ed. Ordering Provid er: MODESTA VILLANUEVA Report Released Date/Time: May 06, 2022 10:11 AM Reporting Lab: [facility] [address] [facility] [address] Performing Lab: [facility] [address] [facility] [address] LIPASE <4 <60 May 06, 2022 10:00 [facility] EXTRA GOLD GEL TUBE Speci men Type: SERUM AM No comment enter ed. Ordering Provid er: LINNEA RAND Report Released Date/Time: May 06, 2022 10:25 AM Reporting Lab: [facility] [address] [facility] [address] Performing Lab: [facility] [address] [facility] [address] EXTRA GOLD GEL TUBE RECEIVED May 06, 2022 10:00 AM [facility] CBC & DIFF Specim en Type: BLOOD Comment: Manual Differential Performed Ordering Provid er: MODESTA VILLANUEVA Report Released Date/Time: May 06, 2022 10:11 AM Reporting Lab: [facility] [address] [facility] [address] Performing Lab: [facility] [address] [facility] [address] WBC 18.82 H 4.0-11.0 RBC 3.70 L [...] 0.09 .RBC MORPHOLOGY PRESENT May 06, 2022 [facility] COMPREHENSIVE METABOLIC Spec imen Type: PLASMA 10:00 AM PANEL+MG Comment: Manual Differential Performed Ordering Provid er: MODESTA VILLANUEVA Report Released Date/Time: May 06, 2022 10:11 AM Reporting Lab: [facility] [address] Performing Lab: [facility] [address] CREATININE 1.3 H 0.7-1.2 UREA NITROGEN 25 [...] AM Reporting Lab: [facility] [address] Performing [facility]: [facility] [address] FINGERSTICK GLUCOSE 369 H 70-100 Apr 30, 2022 [facility] BASIC METABOLIC Specimen Typ e: PLASMA 09:17 AM PANEL+MG No comment enter ed. Ordering Provid er: BILL ROONEY Report Released Date/Time: Apr 30, 2022 08:21 AM Reporting Lab: [facility] [address] [facility] [address] Performing Lab: [facility] [address] CREATININE 1.2 0.7-1.2 UREA NITROGEN 26 8-26 GLUCOSE 140 H 70-100 SODIUM 138 136-145 POTASSIUM 3.8 3.5-5.1 CHLORIDE 107 98-107 CO2 20 L 22-29 CALCIUM 9.4 8.4-10.2 MAGNESIUM 1.7 1.6-2.6 ANION GAP 11 5-15 CREAT EGFR(CKD-EPI) 59 L >60 Apr 30, 2022 09:17 AM [facility] CBC Specim en Type: BLOOD No comment enter ed. Ordering Provid er: BILL ROONEY Report Released Date/Time: Apr 30, 2022 08:21 AM Reporting Lab: [facility] [address] Performing Lab: [facility] [address] WBC 10.40 4.0-11.0 RBC 3.96 L 4.6-6.2 [...] Source Pressure Rate Mass Index May 08 [facility] 2021 10:37 [facility] May 08, 259.7 34 [place] 2021 09:14 lb [facility] May 08 [facility] 2021 05:54 [facility] Social History: Smoking Status (Most [...] took place. Date/Time Current Smoking Status Comment [facility] Feb 02, 2022 09:30 AM VA-TOBACCO NEVER USED [place] Tobacco Use History This section includes a history of the smoking, or tobacco- related health factors, that were collected on or before the date of the Encounter. The data comes from the [place] facility where the Encounter took place. Date/Time Smoking Status/Tobacco Use Comment [facility] Mar 22, 2021 07:45 AM VA-TOBACCO NEVER USED [place] [facility] Oct 02, 2019 10:02 AM VA-TOBACCO NEVER USED [place] [facility] May 21, 2018 09:05 AM VA-TOBACCO NEVER USED [place] [facility] December 25, 2017 06:14 PM [...] Source Apr 18, 2018 ADVANCE DIRECTIVE JOVONLARISSA [facility] Apr 18, 2018 ADVANCE DIRECTIVE DISCUSSION LARISSA SIGALA [facility] December 23, 2017 CLINICAL WARNING FARHAT [facility] May 11, 2003 ADVANCE DIRECTIVE BERT CASILLAS [...] the Encounter. The data comes from all [place] treatment facilities. Date/Time Radiology Report Provider Source May 11, 2022 09:46 CHEST 1 VIEW: SONJA OVALLES [facility] AM NELY EDDYMICHELE Rivera [id number] -1935 M Exm Date: MAY 11, 2022@09:46 Req Phys: CODIE LEON Loc: OP Unknown /05-13-2022@05:05 Img Loc: MAIN X-RAY Service: PRIMARY [facility] OFFICE (Case [id number] COMPLETE) CHEST 1 VIEW (RAD Detailed) CPT:07491 Proc Modifiers : PORTABLE EXAM Reason for [...] 11, 2022 Date Verified: MAY 11, 2022 Geological Specialist E-Sig:/ES/SONJA OVALLES MD Report: CHEST 1 [...] Primary Interpreting Staff: SONJA OVALLES MD, RADIOLOGIST (Geological Specialist) /CDC May 10, 2022 03:49 CT HEAD (P): RADIOLOGY,OUTSIDE [facility] PM LUISANA EDDY [id number] -1935 M SERVICE Exm Date: MAY 10, 2022@15:49 Req Phys: CODIE LEON Loc: OP Unknown /05-13-2022@05:05 Img Loc: CT IMAGING Service: PRIMARY [facility] OFFICE (Case [id number] COMPLETE) CT HEAD/BRAIN W/O CONTRAST (CT Detailed) CPT:39310 Reason for Study: CHANGE IN MENTAL STATUS Clinical History: CHANGE IN MENTAL STATUS. ORDER ADMINISTRATIVELY ENTERED FOLLOWING SYSTEM OUTAGE. Report Status: Verified Date Reported: MAY 10, 2022 Date Verified: MAY 10, 2022 Geological Specialist E-Sig: Report: CT HEAD/BRAIN W/O CONTRAST [PRINTSET] HISTORY: Change in mental status. COMPARISON: CT from 05/07/2022. TECHNIQUE: Contiguous axial CT images from the level of the skull base through the skull apex, with coronal and s agittal reformats, performed at the local [place] facility. 321 images were received by the [place] National Teleradiology Program (NTP) for interpretation. RADIATION [...] study. READING PHYSICIAN: Akash Mccoy M.D. -[phone] 05/10/2022 17:35 PDT [facility] National Teleradiology Program [phone] (For Medical Practitioner Use Only ) Attention Patients / Veterans: If you have ques tions or concerns about these test results, please contact [facility] provider or primary care team. Primary Interpreting Staff: RADIOLOGY,OUTSIDE SERVICE, Staff Physician / May 08, 2022 07:45 CT T-SPINE (P): RADIOLOGY,OUTSIDE [facility] PM LUISANA EDDY [id number] -1935 M SERVICE Exm Date: MAY 08, 2022@19:45 Req Phys: MALINICODIE GOOD Camron Cornejo Loc: OP Unknown /05-13-2022@05:05 [facility] Loc: CT IMAGING Service: PRIMARY CARE - MED OFFICE (Case [id number] COMPLETE) CT SPINE THORACIC W/O CONTR AST (CT Detailed) CPT:16128 Reason for Study: mrsa bacteremia, spinal surge ry - r/o abscess or discitis Clinical History: [place] IS NOT under investigation for COVID-19 or is COVID-19 negative Defer to radiologist for final CT protocol. Responsible provider name and phone number to n otify for critical findings if other than user placing the order a nd pager listed below: User placing orders pager: [phone] LAST 3: Collection DT Specimen Test Name [...] GFR (eGF 44 L Ref: >=60 Allergies: ([place] only) SIMVASTATIN (Feb 29, 2004) CEPHALEXIN (Mar 01, 2004) Report Status: Verified Date Reported: MAY 08, 2022 Date Verified: MAY 08, 2022 Geological Specialist E-Sig: Report: CT SPINE THORACIC W/O CONTRAST [PRINTSET] HISTORY:MRSA bacteremia NUMBER OF IMAGES:1151 COMPARISON: Correlation with images from recent CT abdomen and pelvis May 06, 2022 TECHNIQUE: A non contrast CT of the thoracic sp [facility]e [facility] [place] [...] thoracic level. READING PHYSICIAN: Luisana Webb MD -[phone] 05/08/2022 19:20 PDT [facility] [place] [facility] [phone] (For Medical Practitioner Use Only ) Attention Patients / Veterans: If you have ques tions or concerns about these test results, please contact your o richard provider or primary care team. Primary Interpreting Staff: RADIOLOGY,OUTSIDE SERVICE, Staff Physician / May 08, 2022 04:48 CHEST 1 VIEW: RADIOLOGY,OUTSIDE [facility] PM LUISANA EDDY [id number] -1935 M SERVICE Exm Date: MAY 08, 2022@16:48 Req Phys: CODIE LEON Loc: OP Unknown /05-13-2022@05:05 Img Loc: MAIN X-RAY Service: PRIMARY CARE - MED OFFICE (Case [id number] COMPLETE) CHEST 1 VIEW (RAD Detailed) CPT:77298 Proc Modifiers : PORTABLE EXAM Reason for Study: dyspnea Clinical History: IS NOT under investigation for COVID-19 or is COVID-19 negative acute worsening of dyspnea Responsible provider name and phone number to notify for critical findings if other than user placing the order and pager listed below: User placing orders pager: [phone] malini cell [phone] LAST CREATININE 1.1 (05/08/22) Report Status: Verified Date Reported: MAY 08, 2022 Date Verified: MAY 08, 2022 Geological Specialist E-Sig: Report: CHEST 1 VIEW HISTORY: dyspnea COMPARISON: 05/06/2022 TECHNIQUE: Frontal view(s) of the chest, submit nola to the [place] National Teleradiology Program (NTP) for interp retation. FINDINGS: Reduced lung volumes. Progressive cardiomegaly, and vascular congestion as well as diffuse interstitial prom inence with probable small effusions. Impression: Expiratory exam with findings of CHF and mild e santa READING PHYSICIAN: Nghia Menjivar M.D. -[phone] 05/08/2022 18:57 EDT [facility] [place] [facility] [phone] (For Medical Practitioner Use Only ) Attention Patients / Veterans: If you have ques tions or concerns about these test results, please contact your o rdering provider or primary care team. Primary Interpreting Staff: RADIOLOGY,OUTSIDE SERVICE, Staff Physician / May 07, 2022 10:29 CT HEAD (P): SHANI POLANCO [facility] AM LUISANA EDDY [id number] -1935 M Exm Date: MAY 07, 2022@10:29 Req Phys: BETO AYALA Loc: OP Unknown/0 05-13-2022@05:05 Img Loc: CT IMAGING Service: PRIMARY CARE - MED OFFICE (Case [id number] COMPLETE) CT HEAD/BRAIN W/O CONTRAST ( CT Detailed) CPT:90176 Reason for Study: seizure noted at [facility] Clinical History: [place] IS NOT under investigation for COVID-19 or is COVID-19 negative Defer to radiologist for final CT protocol. Responsible provider name and phone number to n otify for critical findings if other than user placing the order a nd pager listed below: User placing orders pager: [phone] LAST 3: Collection DT Specimen Test Name [...] GFR (eGF 44 L Ref: >=60 Allergies: ([place] only) SIMVASTATIN (Feb 29, 2004) CEPHALEXIN (Mar 01, 2004) Report Status: Verified Date Reported: MAY 07, 2022 Date Verified: MAY 07, 2022 Geological Specialist E-Sig:/ES/SHANI POLANCO MD Report: EXAM: CT [...] lis nola below: User placing orders pager: [phone] LAST 3: Collecti on DT Specimen Test [...] Primary Interpreting Staff: SHANI POLANCO MD, RADIOLOGIST (Geological Specialist) /Javed May 06, 2022 11:40 CHEST 1 VIEW: RADIOLOGY,OUTSIDE [facility] AM LUISANA EDDY [id number] -1935 M SERVICE Exm Date: MAY 06, 2022@11:40 Req Phys: MODESTA VILLANUEVA Loc: [facility] EMERGENCY DEPT WALK-IN (Re Img Loc: MAIN X-RAY Service: Unknown (Case [id number] COMPLETE) CHEST 1 VIEW (RAD Detailed) C PT:88250 Proc Modifiers : PORTABLE EXAM Reason for Study: fever, back pain Clinical History: Reason for Exam: Severe Sepsis Pathway to Evalu ate Volume Status and Source of Sepsis [place] IS under investigation (PUI) for COVID- 19 or is COVID-19+ 86 yo M with fever, back pain Responsible provi violeta name and phone number to notify for critical findings if other than user placing the order and pager listed below: User placing orders pager: [phone] LAST CREATININE 1.2 (04/30/22) Report Status: Verified Date Reported: MAY 06, 2022 Date Verified: MAY 06, 2022 Geological Specialist E-Sig: Report: Technique: Frontal chest. No comparison Impression: Cardiac silhouette is mildly enlarged. There is mild pulmonary venous congestion. No definite pleural effusion . No pneumothorax seen. READING PHYSICIAN: Vern Donnelly M.D. -[id number] [phone] 05/06/2022 13:26 EDT [facility] National Teleradiology Program [phone] (For Medical Practitioner Use Only ) Attention Patients / Veterans: If you have ques tions or concerns about these test results, please contact your o rdering provider or primary care team. Primary Interpreting Staff: RADIOLOGY,OUTSIDE SERVICE, Staff Physician / May 06, 2022 10:36 CT (AP) ABDOMEN/PELVIS (P): RADIOLOGY,OUTSIDE [facility] LUISANA EDDY [id number] -1935 M SERVICE Exm Date: MAY 06, 2022@10:36 Req Phys: MODESTA VILLANUEVA Loc: [facility] EMERGENCY DEPT WALK-IN (Re Img Loc: CT IMAGING Service: Unknown (Case 66 COMPLETE) CT (AP) ABDOMEN/PELVIS W CONT RAST(CT Detailed) CPT:95956 Reason for Study: fever, back pain Clinical History: fever, back pain, ecchymosis left low back consideration for intra-abdominal process, aort ic changes, LS spine trauma, kidney inflammation, GI or obs truction [place] IS under investigation (PUI) for COVID- 19 or is COVID-19+ Defer to radiologist for final CT protocol. Please enter pertinent clinical history on the next page. Responsible provider name and phone number to n otify for critical findings if other than user placing the order a nd pager listed below: User placing orders pager: [phone] LAST 3: Collection DT Specimen Test Name [...] ESTIMATED GFR(eGF 44 L Ref: >=60 Allergies: ([place] only) SIMVASTATIN (Feb 29, 2004) CEPHALEXIN (Mar 01, 2004) To see allergies from all VA locations click Re ports tab>Remote Data>All Available Sites>Clinical Reports>Aller gies. Report Status: Verified Date Reported: MAY 06, 2022 Date Verified: MAY 06, 2022 Geological Specialist E-Sig: Report: Exam: CT (AP) ABDOMEN/PELVIS W CONTRAST [PRINTS ET] Clinical History: fever, back pain Number of images: 918 Comparison: No priors available Technique: The study was protocoled and supervi sed [facility] the local [facility] CT of the abdomen and pelvis was performed afte r the uneventful administration of iodinated contrast. Images we re received by the [place] National Teleradiology Program (NTP) for interpretation. Total [...] findings, above. READING PHYSICIAN: Eduin Donaldson M.D. -[phone] 05/06/2022 12:48 [facility] [place] [facility] [phone] (For Medical Practitioner Use Only ) Attention Patients / Veterans: If you have ques tions or concerns about these test results, please contact [facility] provider or primary care team. Primary Interpreting Staff: RADIOLOGY,OUTSIDE SERVICE, Staff Physician / May 06, 2022 10:35 CT HEAD/BRAIN W/O CONTRAST: RADIOLOGY,OUTSIDE [facility] LUISANA EDDY [id number] 1935 M SERVICE Exm Date: MAY 06, 2022@10:35 Req Phys: MODESTA VILLANUEVA Loc: [facility] EMERGENCY DEPT WALK-IN (Re Im Loc: CT IMAGING Service: Unknown (Case 64 COMPLETE) CT HEAD/BRAIN W/O CONTRAST (C T Detailed) CPT:12836 Reason for Study: falls, blood thinner, AMS, se izure Clinical History: falls, blood thinner, AMS, seizure [place] IS under investigation (PUI) for COVID- 19 or is COVID-19+ Defer to radiologist for final CT protocol. Responsible provider name and phone number to n otify for critical findings if other than user placing the order a nd pager listed below: User placing orders pager: [phone] LAST 3: Collection DT Specimen Test Name [...] ESTIMATED GFR(eGF 44 L Ref: >=60 Allergies: ([place] only) SIMVASTATIN (Feb 29, 2004) CEPHALEXIN (Mar 01, 2004) To see allergies from all [facility] locations click Re ports tab>Remote Data>All Available Sites>Clinical Reports>Aller gies. Report Status: Verified Date Reported: MAY 06, 2022 Date Verified: MAY 06, 2022 Geological Specialist E-Sig: Report: CT HEAD/BRAIN W/O CONTRAST Clinical History: falls, blood thinner, AMS, se izure Number of Images: 532 Comparison: 03/12/2022 Technique: The study was protocoled and supervi sed [facility] local [facility] CT of the head without contrast. I mages were subsequently received by the [place] National Tel[facility] Program (NTP) for interpretation. [...] T findings. READING PHYSICIAN: Eduin Donaldson M.D. -[phone] 05/06/2022 12:30 [facility] National Teleradiology Program [phone] (For Medical Practitioner Use Only ) Attention Patients / Veterans: If you have ques tions or concerns about these test results, please contact your [facility] provider or primary care team. Primary Interpreting Staff: RADIOLOGY,OUTSIDE SERVICE, Staff Physician / May 06, 2022 10:35 CT CERVICAL SPINE W/O CONTRAST: RADIOLOGY,OUT SIDE [facility] AM LUISANA EDDY [id number] -1935 M SERVICE Exm Date: MAY 06, 2022@10:35 Req Phys: MODESTA VILLANUEVA Loc: [facility] EMERGENCY DEPT WALK-IN (Re Img Loc: CT IMAGING Service: Unknown (Case 65 COMPLETE) CT CERVICAL SPINE W/O CONTRAS T (CT Detailed) CPT:82137 Reason for Study: falls, blood thinner, AMS, se izure Clinical History: falls, blood thinner, AMS, seizure IS under investigation (PUI) for COVID- 19 or is COVID-19+ Defer to radiologist for final CT protocol. Responsible provider name and phone number to n otify for critical findings if other than user placing the order a nd pager listed below: User placing orders pager: [phone] LAST 3: Collection DT Specimen Test Name [...] ESTIMATED GFR(eGF 44 L Ref: >=60 Allergies: ([place] only) SIMVASTATIN (Feb 29, 2004) CEPHALEXIN (Mar 01, 2004) To see allergies from all [place] locations click Re ports tab>Remote Data>All Available Sites>Clinical Reports>Aller gies. Report Status: Verified Date Reported: MAY 06, 2022 Date Verified: MAY 06, 2022 Geological Specialist E-Sig: Report: CT CERVICAL SPINE W/O CONTRAST HISTORY:falls, blood thinner, AMS, seizure NUMBER OF IMAGES:770 COMPARISON: None available. TECHNIQUE: A non contrast CT of the cervical sp ine [place] the [place] [...] cervical spine. -Ancillary findings, above. READING PHYSICIAN: Eudin Donaldson M.D. -[phone] 05/06/2022 12:33 [facility] National Teleradiology Program [phone] (For Medical Practitioner Use Only ) Attention Patients / Veterans: If you have ques tions or concerns about these test results, please contact your o [facility] provider or primary care team. [...] the Encounter. The data comes from all [place] treatment facilities. Date/Time Pathology Report Provider Source May 09, 2022 05:30 AM [facility] MICROBIOLOGY REPORT: [facility] [place] [facility] Reporting Lab: [facility] [CLIA# [id number]] [place] [address] Accession [UID]: [id number] [[id number]] Receiv ed: May 09, 2022@01:35 Collection sample: BLOOD Collection date: Apr 05:30 Provider: CODIE LEON Comment on specimen: LEFT ARM, RECEIVED 2 BLOOD CULTURE BOTTLES Test(s) ordered: CULTURE & SUSCEPTIBILITY...... 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 R TRIMETH/SULFA................. S TETRACYCLINE.................. S CLINDAMYCIN................... S RIFAMPIN...................... S VANCOMYCIN.................... S Bacteriology Remark(s): VANCOMYCIN SHAMIKA: <=0.5 ug/mL THIS REPORT IS FINAL =--=--=--=--=--=--=--=--=--=--=--=--=--= --=--=--=--=--=--=--=--=--=--=--=--=-- Performing Laboratory: Bacteriology Report Performed By: [facility] [CLIA# [id number]] [place] [address] May 08, 2022 03:23 PM LR MICROBIOLOGY REPORT: [facility] Reporting Lab: [facility] [CLIA# [id number]] [place] [address] Accession [UID]: [id number] [[id number]] Receiv ed: May 08, 2022@15:41 Collection sample: BLOOD Collection date: Apr 15:23 Provider: CODIE LEON Comment on specimen: LEFT ARM, RECEIVED 2 BLOOD CULTURE BOTTLES Test(s) ordered: CULTURE & SUSCEPTIBILITY...... completed: May 10, 2022 * BACTERIOLOGY FINAL REPORT => May 10, 2022 16:3 1 TECH CODE: [id number] CULTURE RESULTS: GROWTH SAME THAT OF ANOTHER CULTURE Comment: FOR SUSCEPTIBILITY REPORT SEE PREVIOUS POSITIVE SAME [id number] ( 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 from Anaerobic bottle ) ( Recovered from Aerobic bottle ) Bacteriology Remark(s): THIS REPORT IS FINAL =--=--=--=--=--=--=--=--=--=--=--=--=--= --=--=--=--=--=--=--=--=--=--=--=--=-- Performing Laboratory: Bacteriology Report Performed By: [facility] [CLIA# [id number]] [place] [address] May 08, 2022 03:21 PM LR MICROBIOLOGY REPORT: [facility] Reporting Lab: [facility] [CLIA# [id number]] [place] [address] Accession [UID]: [id number] [[id number]] Receiv ed: May 08, 2022@15:40 Collection sample: BLOOD Collection date: Apr 15:21 Provider: CODIE LEON Comment on specimen: RT ARM, RECEIVED 2 BLOOD CU LTURE BOTTLES Test(s) ordered: CULTURE & SUSCEPTIBILITY...... completed: May 10, 2022 * BACTERIOLOGY FINAL REPORT => May 10, 2022 16:3 1 TECH CODE: [id number] CULTURE RESULTS: GROWTH SAME THAT OF ANOTHER CULTURE Comment: FOR SUSCEPTIBILITY REPORT SEE PREVIOUS POSITIVE SAME MB 22 [id number] ( 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 from Anaerobic bottle ) ( Recovered from Aerobic bottle ) Bacteriology Remark(s): THIS REPORT IS FINAL =--=--=--=--=--=--=--=--=--=--=--=--=--= --=--=--=--=--=--=--=--=--=--=--=--=-- Performing Laboratory: Bacteriology Report Performed By: [facility] [CLIA# [id number]] [place] [address] May 07, 2022 05:30 AM LR MICROBIOLOGY REPORT: [facility] Reporting Lab: [facility] [CLIA# [id number]] [place] [address] Accession [UID]: [id number] [[id number]] Receiv ed: May 07, 2022@01:35 Collection sample: [...] REPORT SEE PREVIOUS POSITIVE SAME MB 22 [id number] ( 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 from Aerobic bottle ) ( Recovered from Anaerobic bottle ) Bacteriology Remark(s): THIS REPORT IS FINAL =--=--=--=--=--=--=--=--=--=--=--=--=--= --=--=--=--=--=--=--=--=--=--=--=--=-- Performing Laboratory: Bacteriology Report Performed By: [facility] [CLIA# [id number]] [place] [address] May 06, 2022 10:51 AM LR MICROBIOLOGY REPORT: [facility] Reporting Lab: [facility] [CLIA# [id number]] [place] [address] Accession [UID]: [id number] [[id number]] Receiv ed: May 06, 2022@11:32 Collection sample: [...] Report Performed By: [facility] [CLIA# [id number]] [place] [address] May 06, 2022 10:34 AM LR MICROBIOLOGY REPORT: [facility] Reporting Lab: [facility] [CLIA# [id number]] [place] [address] Accession [UID]: [id number] [[id number]] Receiv ed: May 06, 2022@10:51 Collection sample: BLOOD Collection date: Apr 10:34 Provider: MODESTA VILLANUEVA Comment on specimen: RECEIVED 2 BLOOD [facility] Test(s) ordered: CULTURE & SUSCEPTIBILITY...... completed: May 07, 2022 * BACTERIOLOGY FINAL REPORT => May 08, 2022 08:3 0 TECH CODE: [id number] CULTURE RESULTS: STAPHYLOCOCCUS AUREUS METHICILL IN RESISTANT [...] Report Performed By: [facility] [CLIA# [id number]] [place] [address] May 06, 2022 10:00 AM LR MICROBIOLOGY REPORT: [facility] Reporting Lab: [facility] [CLIA# [id number]] [place] [address] Accession [UID]: [id number] [[id number]] Receiv ed: May 06, 2022@10:41 Collection sample: [...] SEE PREVIOUS POSITIVE SAME LUIS MIGUEL 22 [id number] ( 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 from Anaerobic bottle ) ( Recovered from Aerobic bottle ) Bacteriology Remark(s): THIS REPORT IS FINAL =--=--=--=--=--=--=--=--=--=--=--=--=--= --=--=--=--=--=--=--=--=--=--=--=--=-- Performing Laboratory: Bacteriology Report Performed By: [facility] [CLIA# [id number]] [place] [address] Encounter Notes: All associated encounter notes This section contains the clinical notes associated to the Encounter. Date/Time Encounter Note(s) Provider Source May 08, 2022 01:00 AM CRITICAL CARE UNIT NOTE: [facility] LOCAL TITLE: [facility] RESPIRATORY THERAPY FLOWSHEET STANDARD TITLE: CRITICAL CARE UNIT NOTE DATE OF NOTE: MAY 08, 2022@01:00 ENTRY DATE: MAY 09, 2022@15:03:54 AUTHOR: FELECIA GU EXP COSIGNER: URGENCY: STATUS: COMPLETED This is a place chan only. Please see [employer] to view document. /es/ [facility] ICU DOCUMENT IMPORT Signed: 05/09/2022 15:03 May 08, 2022 01:00 AM CRITICAL CARE UNIT NOTE: BRITTANIEOBDULIAYESSICA [facility] LOCAL TITLE: [facility] INPATIENT FLOWSHEET STANDARD TITLE: CRITICAL CARE UNIT NOTE DATE OF NOTE: MAY 08, 2022@01:00 ENTRY DATE: MAY 09, 2022@14:34:08 AUTHOR: OBDULIA GU-ARKristel EXP COSIGNER: URGENCY: STATUS: COMPLETED This is a place chan only. Please see [employer] to view document. /es/ [facility] ICU DOCUMENT IMPORT Signed: 05/09/2022 14:34
--- OUTSIDE RECORDS SUMMARY | 2022-05-15 09:38 | XMS_ITS | Encounter Summary ---
:1935 Author Organization [facility] rs Address [address] [place] [address] Support Name Relationship Address Phone WADE LORENZO Unavailable [phone] [place] [address] WADE LORENZO Unavailable [id number] [place] [address] ARACELI MARSHALL Unavailable [address] [place] [address] MARILIA MARSHALLA Unavailable [address] [place] [address] Insurance Providers: All historical and current Section Date Range: From patient's date of to the date document was created.This section includes the names of all active insurance providers for the patient. Insurance Type of Plan Start of End of Group Member [facility] Coverage Name Policy Policy Number ID Provider's Bales's Relationship Coverage Coverage Telephone Name to Policy Number Bales [place] M[place] Aug 19, [id number] Kristel [facility] (WNR) ADVANTAGE (WNR) 2017 8 [id number] [phone] [facility] 1 [place] MEDICARE M[place] Aug 19, [id number] Kristel [facility] (WNR) ADVANTAGE (WNR) 2016 8 [id number] [phone] [facility] 1 Selected Encounter This section includes the information on record at CT for the Encounter. Date/Time Encounter Type Encounter Reason Provider Source Description May 07, 2022 EEG EXTND MNTR EEG ICD-10-CM JERRY FLYNN 01:30 PM 61-119 MIN G40.209 E Local-rel symptc epi w cmplx prt seiz,not ntrct,w/o stat epi with Provider Comments: Local-rel symptc epi w cmplx prt seiz,not ntrct,w/o stat epi IHE Encounter Template Text not used by CT Assessments - Encounter Diagnoses This section includes the primary and secondary diagnoses documented for the Encounter. Date/Time Primary/Secondary Diagnosis Name Provider Source Diagnosis May 09, 2022 PRIMARY Local-rel EDDA GEORGE 10:37 AM symptc epi w K [facility]CS cmplx prt seiz,not ntrct,w/o stat epi Plan of Treatment: Future Appointments (+ 6 months) and Future Tests (+/- 45 days) The Plan of Treatment section includes future care activities for the [facility] This section includes future appointments and future orders which are active, pending orscheduled.Future Appointments This section includes appointments that were scheduled to occur 6 months from the date of the Encounter, up to a maximum of 20 appointments. The data comes from all [facility] treatment [facility]. Appointment Date/Time Appointment Type Appointment Facili ty Name May 11, 2022 06:15 PM AMBULATORY - NONE [facility] Jul 23, 2022 08:00 AM AMBULATORY - NEUROLOGY [facility] Active, Pending, and Scheduled Orders This section includes a listing of several types of active, pending, and scheduled orders, including clinic medications orders, diagnostic test orders, procedure orders and consult orders; where the start date of the order is 45 days before the date of the Encounter or 45 days after the date of the Encounter. The data comes from all [facility]. Test Date/Time Test Type Test Details Facility Name Apr 30, 2022 08:21 Laboratory - Chemistry URINALYSIS URINE WC ON CE [facility] AM Order Apr 30, 2022 08:21 Laboratory - CULTURE & SUSCEPTIBILITY [facility] AM Microbiology Order URINE May 06, 2022 12:00 Laboratory - Blood ABO/RH - LAB BLOOD [facility] AM Bank Order May 06, 2022 10:11 Laboratory - Blood TYPE & SCREEN - LAB [facility] AM Bank Order BLOOD May 06, 2022 10:27 Pharmacy [facility] AM Medication Order May 06, 2022 10:28 Pharmacy [facility] AM Infusion Order May 06, 2022 10:34 Pharmacy [facility] AM Infusion Order May 06, 2022 10:41 Pharmacy - [facility] AM Infusion Order May 06, 2022 12:15 Pharmacy - [facility] PM Medication Order May 06, 2022 01:31 Pharmacy [facility] PM Medication Order May 06, 2022 04:49 Pharmacy - [facility] PM Medication Order May 07, 2022 01:00 Laboratory - CULTURE & SUSCEPTIBILITY [facility] PM Microbiology Order BLOOD WC ONCE May 11, 2022 09:07 [facility] Microbiology Order BLOOD WC May 11, 2022 09:07 [facility] AM Microbiology Order BLOOD WC May 11, 2022 09:38 Laboratory - Chemistry EOSINOPHIL SMEAR,URINE [facility] AM Order URINE WC ONCE May 11, 2022 09:38 Laboratory - Chemistry URINALYSIS URINE WC ON CE [facility] AM Order May 11, 2022 09:38 Laboratory - Chemistry FENA URINE WC ONCE [facility] AM Order Lab Results: +/- 30 [...] Reference Range Comment May 11, 2022 11:13 [facility] FINGERSTICK GLUCOSE Speci men Type: BLOOD AM Comment: Mark casillas Nurse Notified Ordering Provid er: CODIE LEON Report Released Date/Time: May 11, 2022 11:53 AM Reporting Lab: [facility] [address] [facility] [address] Performing Lab: [facility] [address] [facility] [address] FINGERSTICK GLUCOSE 367 H 70-100 May 11, 2022 07:05 [facility] LIVER FUNCTION TESTS Spec imen Type: PLASMA AM No comment enter ed. Ordering Provid er: CODIE LEON Report Released Date/Time: May 11, 2022 09:08 AM Reporting Lab: [facility] [address] [facility] [address] Performing Lab: [facility] [address] [facility] [address] BILIRUBIN, TOTAL 1.6 H 0.2-1.2 ALKALINE PHOSPHATASE 102 40-150 ALT/SGPT 42 <55 AST/SGOT 30 <34 GAMMA GTP 52 <64 DIR. BILIRUBIN 1.2 H <0.5 May 11, 2022 07:05 AM [facility] CK,TOTAL Specim en Type: PLASMA No comment enter ed. Ordering Provid er: CODIE LEON Report Released Date/Time: May 11, 2022 09:08 AM Reporting Lab: [facility] [address] [facility] [address] Performing Lab: [facility] [address] I [facility] [address] CK,TOTAL 16 L 39-208 May 11, 2022 07:05 AM [facility] BNP Specim en Type: PLASMA No comment enter ed. Ordering Provid er: CODIE LEON Report Released Date/Time: May 11, 2022 09:15 AM Reporting Lab: [facility] [address] [facility] [address] Performing Lab: [facility] JANIE [facility] [address] BNP 59 <99 May 11, 2022 07:05 [facility] BASIC METABOLIC Specimen Type: PLASMA AM PANEL+MG No comment enter ed. Ordering Provid er: OG DIAL Report Released Date/Time: May 11, 2022 04:46 AM Reporting Lab: [facility] AMRAA LIMA [facility] [address] Performing Lab: [facility] [address] [facility] [address] CREATININE 1.6 H 0.7-1.2 UREA NITROGEN 28 H 8-26 GLUCOSE 396 H 70-100 SODIUM 150 H 136-145 POTASSIUM 3.7 3.5-5.1 CHLORIDE 120 H 98-107 CO2 23 22-29 CALCIUM 8.4 8.4-10.2 MAGNESIUM 2.1 1.6-2.6 ANION GAP 7 5-15 CREAT EGFR(CKD-EPI) 42 L >60 May 11, 2022 07:05 AM [facility] CBC Specim en Type: BLOOD No comment enter ed. Ordering Provid er: OG DIAL Report Released Date/Time: May 11, 2022 04:46 AM Reporting Lab: [facility] [address] [place] I [facility] [address] Performing Lab: [facility] JANIE [facility] [address] WBC 15.93 H 4.0-11.0 RBC 3.60 L 4.6-6.2 HGB 11.2 L 13.5-17.9 HCT 35.3 L 41-54 MCV 98.1 80-100 MCH 31.1 27-33 MCHC 31.7 L 32.0-37.5 PLT 231 150-400 MPV 11.2 H 7.4-10.4 RDW 15.2 H 11.5-14.5 May 11, 2022 06:14 [facility] FINGERSTICK GLUCOSE Speci men Type: BLOOD AM Comment: Mark casillas Nurse Notified Ordering Provid er: CODIE LEON Report Released Date/Time: May 11, 2022 06:42 AM Reporting Lab: [facility] [address] [facility] [address] Performing Lab: [facility] [address] [facility] [address] FINGERSTICK GLUCOSE 345 H 70-100 May 11, 2022 02:24 [facility] FINGERSTICK GLUCOSE Speci men Type: BLOOD AM Comment: Mark casillas Ordering Provid er: CODIE LEON Report Released Date/Time: May 11, 2022 02:44 AM Reporting Lab: [facility] [address] [facility] [address] Performing Lab: [facility] [address] [facility] [address] FINGERSTICK GLUCOSE 375 H 70-100 May 10, 2022 08:38 [facility] FINGERSTICK GLUCOSE Speci men Type: BLOOD PM Comment: Mark casillas Ordering Provid er: CODIE LEON Report Released Date/Time: May 11, 2022 12:31 AM Reporting Lab: [facility] [address] [facility] [address] Performing Lab: [facility] [address] [facility] [address] FINGERSTICK GLUCOSE 346 H 70-100 May 10, 2022 05:05 [facility] FINGERSTICK GLUCOSE Speci men Type: BLOOD PM Comment: Mark casillas Nurse Notified Ordering Provid er: CODIE LEON Report Released Date/Time: May 10, 2022 11:50 PM Reporting Lab: [facility] [address] [facility] [address] Performing Lab: [facility] [address] [facility] [address] FINGERSTICK GLUCOSE 245 H 70-100 May 10, 2022 02:00 [facility] VANCOMYCIN (TROUGH) Speci men Type: PLASMA PM No comment enter ed. Ordering Provid er: CODIE LEON Report Released Date/Time: May 11, 2022 01:34 AM Reporting Lab: [facility] [address] Performing Lab: [facility] [address] VANCOMYCIN (TROUGH) 31.8 H 10.0-15.0 May 10, 2022 [facility] BASIC METABOLIC Specimen Typ e: PLASMA 02:00 PM PANEL+MG No comment enter ed. Ordering Provid er: CODIE LEON Report Released Date/Time: May 11, 2022 01:34 AM Reporting Lab: [facility] [address] Performing Lab: [facility] [address] CREATININE 1.1 .7-1.2 UREA NITROGEN 22 8-26 GLUCOSE 279 H 70-100 SODIUM 150 H 136-145 POTASSIUM 3.2 L 3.5-5.1 CHLORIDE 116 H 98-107 CO2 23 22-29 CALCIUM 8.5 8.4-10.2 MAGNESIUM 2.0 1.6-2.6 ANION GAP 11 5-15 CREAT EGFR(CKD-EPI) 65 >60 May 10, 2022 01:20 PM [facility] CBC & DIFF Specim en Type: BLOOD Comment: Automa nola Differential Performed Ordering Provid er: MD ESTEBAN Report Released Date/Time: May 10, 2022 08:52 PM Reporting Lab: [facility] [address] Performing Lab: [facility] [address] WBC 16.24 H 4.0-11.0 RBC 3.76 L [...] 0.28 H 0-0.1 May 10, 2022 11:07 [facility] FINGERSTICK GLUCOSE Speci men Type: BLOOD AM Comment: Mark casillas Nurse Notified Ordering Provid er: CODIE LEON Report Released Date/Time: May 11, 2022 12:31 AM Reporting Lab: [facility] [address] [facility] [address] Performing Lab: [facility] [address] [facility] [address] FINGERSTICK GLUCOSE 253 H 70-100 May 10, 2022 06:16 [facility] FINGERSTICK GLUCOSE Speci men Type: BLOOD AM Comment: Mark casillas Nurse Notified Ordering Provid er: CODIE LEON Report Released Date/Time: May 10, 2022 11:50 PM Reporting Lab: [facility] [address] [facility] [address] Performing Lab: [facility] [address] [facility] [address] FINGERSTICK GLUCOSE 271 H 70-100 May 09, 2022 09:07 [facility] FINGERSTICK GLUCOSE Speci men Type: BLOOD PM Comment: Mark casillas Ordering Provid er: CODIE LEON Report Released Date/Time: May 10, 2022 11:50 PM Reporting Lab: [facility] [address] [facility] [address] Performing Lab: [facility] [address] [facility] [address] FINGERSTICK GLUCOSE 209 H 70-100 May 09, 2022 05:33 [facility] FINGERSTICK GLUCOSE Speci men Type: BLOOD PM Comment: Mark casillas Nurse Notified Ordering Provid er: CODIE LEON Report Released Date/Time: May 09, 2022 05:53 PM Reporting Lab: [facility] [address] [facility] [address] Performing Lab: [facility] [address] [facility] [address] FINGERSTICK GLUCOSE 251 H 70-100 May 09, 2022 02:09 [facility] VANCOMYCIN (PEAK) Specime n Type: SERUM PM No comment enter ed. Ordering Provid er: AMARIS DE JESUS Report Released Date/Time: May 09, 2022 09:33 AM Reporting Lab: [facility] [address] [facility] [address] Performing Lab: [facility] [address] [facility] [address] VANCOMYCIN (PEAK) 24.2 20.0-40.0 May 09, 2022 11:19 [facility] FINGERSTICK GLUCOSE Speci men Type: BLOOD AM Comment: Mark casillas Nurse Notified Ordering Provid er: CODIE LEON Report Released Date/Time: May 09, 2022 11:38 AM Reporting Lab: [facility] [address] [facility] [address] Performing Lab: [facility] [address] [facility] [address] FINGERSTICK GLUCOSE 240 H 70-100 May 09, 2022 08:13 [facility] VANCOMYCIN (TROUGH) Speci men Type: SERUM AM No comment enter ed. Ordering Provid er: AMARIS DE JESUS Report Released Date/Time: May 08, 2022 11:14 AM Reporting Lab: [facility] [address] [facility] [address] Performing Lab: [facility] [address] [facility] [address] VANCOMYCIN (TROUGH) 16.1 H 10.0-15.0 May 09, 2022 05:33 AM [facility] CBC & DIFF Specim en Type: BLOOD Comment: Automa nola Differential Performed Ordering Provid er: CODIE LEON Report Released Date/Time: May 08, 2022 05:27 PM Reporting Lab: [facility] [address] [facility] [address] Performing Lab: [facility] [address] [facility] [address] WBC 14.92 H 4.0-11.0 RBC 3.41 L [...] GRAN 0.16 H 0-0.1 May 09, 2022 [facility] COMPREHENSIVE METABOLIC Spec imen Type: PLASMA 05:32 AM PANEL+MG No comment enter ed. Ordering Provid er: CODIE LEON Report Released Date/Time: May 08, 2022 05:27 PM Reporting Lab: [facility] [address] Performing Lab: [facility] [address] CREATININE 1.2 0.7-1.2 UREA NITROGEN 25 8-26 [...] 59 L >60 May 09, 2022 05:16 [facility] FINGERSTICK GLUCOSE Speci men Type: BLOOD AM Comment: Mark casillas Nurse Notified Ordering Provid er: CODIE LEON Report Released Date/Time: May 09, 2022 07:27 AM Reporting Lab: [facility] [address] Performing Lab: [facility] [address] FINGERSTICK GLUCOSE 295 H 70-100 May 08, 2022 09:32 PM [facility] EXTRA MINT TUBE Specim en Type: PLASMA No comment enter ed. Ordering Provid er: MD ESTEBAN Report Released Date/Time: May 08, 2022 09:32 PM Reporting Lab: [facility] [address] [facility] [address] Performing Lab: [facility] [address] [facility] [address] EXTRA MINT TUBE RECEIVED May 08, 2022 09:32 PM [facility] EXTRA PURPLE TUBE Spec imen Type: BLOOD No comment enter ed. Ordering Provid er: MD ESTEBAN Report Released Date/Time: May 08, 2022 09:32 PM Reporting Lab: [facility] [address] [facility] [address] Performing Lab: [facility] [address] [facility] [address] EXTRA PURPLE TUBE RECEIVED May 08, 2022 09:32 PM [facility] EXTRA BLUE TUBE Specim en Type: PLASMA No comment enter ed. Ordering Provid er: MD ESTEBAN Report Released Date/Time: May 08, 2022 09:32 PM Reporting Lab: [facility] [address] [facility] [address] Performing Lab: [facility] [address] [facility] [address] EXTRA BLUE TUBE RECEIVED May 08, 2022 09:32 [facility] EXTRA GOLD GEL TUBE Speci men Type: SERUM PM No comment enter ed. Ordering Provid er: MD ESTEBAN Report Released Date/Time: May 08, 2022 09:32 PM Reporting Lab: [facility] [address] [facility] [address] Performing Lab: [facility] [address] [facility] [address] EXTRA GOLD GEL TUBE RECEIVED May 08, 2022 09:32 PM [facility] EXTRA BRASWELL TUBE Specim en Type: PLASMA No comment enter ed. Ordering Provid er: MD ESTEBAN Report Released Date/Time: May 08, 2022 09:37 PM Reporting Lab: [facility] [address] [facility] [address] Performing Lab: [facility] [address] [facility] [address] EXTRA BRASWELL TUBE RECEIVED May 08, 2022 09:32 PM [facility] LACTIC ACID Specim en Type: PLASMA No comment enter ed. Ordering Provid er: OG DIAL Report Released Date/Time: May 08, 2022 09:49 PM Reporting Lab: [facility] [address] [facility] [address] Performing Lab: [facility] [address] [facility] [address] LACTIC ACID 2.5 H 0.5-2.2 May 08, 2022 09:32 PM [facility] BNP Specim en Type: PLASMA No comment enter ed. Ordering Provid er: OG DIAL Report Released Date/Time: May 08, 2022 09:50 PM Reporting Lab: [facility] [address] [address] [facility] [address] Performing Lab: [facility] [address] [address] [facility] [address] BNP 897 H <99 May 08, 2022 09:32 PM [facility] CBC Specim en Type: BLOOD No comment enter ed. Ordering Provid er: OG DIAL Report Released Date/Time: May 08, 2022 09:50 PM Reporting Lab: [facility] [address] [address] [facility] [address] Performing Lab: [facility] [address] [facility] [address] WBC 18.54 H 4.0-11.0 RBC 3.68 L 4.6-6.2 HGB 11.5 L 13.5-17.9 HCT 35.1 L 41-54 MCV 95.4 80-100 MCH 31.3 27-33 MCHC 32.8 32.0-37.5 PLT 221 150-400 MPV 11.1 H 7.4-10.4 RDW 14.9 H 11.5-14.5 May 08, 2022 09:32 PM [facility] BLOOD GASES Specim en Type: VENOUS BLOOD Comment: O2 THE RAPY = 3L PM Ordering Provid er: OG DIAL Report Released Date/Time: May 08, 2022 09:50 PM Reporting Lab: [facility] [address] [facility] [address] Performing Lab: [facility] [address] [facility] [address] PH 7.36 7.33-7.43 PCO2 47 41-51 BICARBONATE 24.4 21.0-30.0 PO2 31 L 35-40 OXYGEN SATURATION 54.7 L 70.0-75.0 PH(TEMP CORRECTED) 7.37 7.33-7.43 PCO2(TEMP CORRECTED) 46 41-51 PO2(TEMP CORRECTED) 31 L 35-40 PATIENT TEMPERATURE 36.7 May 08, 2022 [facility] COMPREHENSIVE METABOLIC Spec imen Type: PLASMA 09:32 PM PANEL+MG No comment enter ed. Ordering Provid er: OG DIAL Report Released Date/Time: May 08, 2022 09:50 PM Reporting Lab: [facility] [address] [facility] [address] Performing Lab: [facility] [address] [facility] [address] CREATININE 1.3 H 0.7-1.2 UREA NITROGEN 26 [...] 54 L >60 May 08, 2022 08:27 [facility] FINGERSTICK GLUCOSE Speci men Type: BLOOD PM Comment: Mark casillas Nurse Notified Ordering Provid er: CODIE LEON Report Released Date/Time: May 08, 2022 08:55 PM Reporting Lab: [facility] [address] [facility] [address] Performing Lab: [facility] [address] [facility] [address] FINGERSTICK GLUCOSE 272 H 70-100 May 08, 2022 06:56 [facility] FINGERSTICK GLUCOSE Speci men Type: BLOOD PM Comment: Mark casillas Ordering Provid er: CODIE LEON Report Released Date/Time: May 08, 2022 07:08 PM Reporting Lab: [facility] [address] [facility] [address] Performing Lab: [facility] [address] [facility] [address] FINGERSTICK GLUCOSE 262 H 70-100 May 08, 2022 04:50 [facility] FINGERSTICK GLUCOSE Speci men Type: BLOOD PM Comment: Nurse Notified Ordering Provid er: CODIE LEON Report Released Date/Time: May 08, 2022 05:14 PM Reporting Lab: [facility] [address] [facility] [address] Performing Lab: [facility] [address] [facility] [address] FINGERSTICK GLUCOSE 330 H 70-100 May 08, 2022 11:21 [facility] FINGERSTICK GLUCOSE Speci men Type: BLOOD AM Comment: Mark casillas Nurse Notified Ordering Provid er: CODIE LEON Report Released Date/Time: May 08, 2022 11:51 AM Reporting Lab: [facility] [address] [facility] [address] Performing Lab: [facility] [address] FINGERSTICK GLUCOSE 231 H 70-100 May 08, 2022 07:25 AM [facility] CBC & DIFF Specim en Type: BLOOD Comment: Automa nola Differential Performed Ordering Provid er: BETO AYALA Report Released Date/Time: May 07, 2022 12:28 PM Reporting Lab: [facility] [address] Performing Lab: [facility] [address] [facility] [address] WBC 16.29 H 4.0-11.0 RBC 3.38 L [...] GRAN 0.26 H 0-0.1 May 08, 2022 [facility] PROTHROMBIN TIME/INR Specime n Type: PLASMA 07:25 AM No comment enter ed. Ordering Provid er: BETO AYALA Report Released Date/Time: May 07, 2022 12:28 PM Reporting Lab: [facility] [address] [facility] [address] Performing Lab: [facility] [address] .INR 1.2 H 0.8-1.1 .PT 14.2 H 9.4-12.5 May 08, 2022 [facility] COMPREHENSIVE METABOLIC Spec imen Type: PLASMA 07:25 AM PANEL+MG No comment enter ed. Ordering Provid er: BETO AYALA Report Released Date/Time: May 07, 2022 12:28 PM Reporting Lab: [facility] [address] [facility] [address] Performing Lab: [facility] [address] [facility] [address] CREATININE 1.1 0.7-1.2 UREA NITROGEN 27 H [...] EGFR(CKD-EPI) 65 >60 May 08, 2022 06:53 [facility] FINGERSTICK GLUCOSE Speci men Type: BLOOD AM Comment: Mark casillas Ordering Provid er: CODIE LEON Report Released Date/Time: May 08, 2022 07:18 AM Reporting Lab: [facility] [address] [facility] [address] Performing Lab: [facility] [address] [facility] [address] FINGERSTICK GLUCOSE 276 H 70-100 May 07, 2022 08:36 [facility] FINGERSTICK GLUCOSE Speci men Type: BLOOD PM Comment: Nurse Notified Ordering Provid er: CODIE LEON Report Released Date/Time: May 08, 2022 12:29 AM Reporting Lab: [facility] [address] [facility] [address] Performing Lab: [facility] [address] [facility] [address] FINGERSTICK GLUCOSE 282 H 70-100 May 07, 2022 07:04 PM [facility] LACTIC ACID Specim en Type: PLASMA No comment enter ed. Ordering Provid er: BETO AYAAL Report Released Date/Time: May 07, 2022 06:28 PM Reporting Lab: [facility] [address] [facility] [id number] Performing Lab: [facility] [address] [facility] [id number] LACTIC ACID 2.0 0.5-2.2 May 07, 2022 04:46 [facility] FINGERSTICK GLUCOSE Speci men Type: BLOOD PM Comment: Nurse Notified Ordering Provid er: BETO AYALA Report Released Date/Time: May 07, 2022 05:00 PM Reporting Lab: [facility] [address] [facility] [id number] Performing Lab: [facility] [address] [facility] [id number] FINGERSTICK GLUCOSE 274 H 70-100 May 07, 2022 12:47 [facility] FINGERSTICK GLUCOSE Speci men Type: BLOOD PM Comment: Mark casillas Nurse Notified Ordering Provid er: BETO AYALA Report Released Date/Time: May 07, 2022 05:32 PM Reporting Lab: [facility] [address] [facility] [address] Performing Lab: [facility] [address] [facility] [address] FINGERSTICK GLUCOSE 309 H 70-100 May 07, 2022 06:35 [facility] FINGERSTICK GLUCOSE Speci men Type: BLOOD AM Comment: Mrak casillas Nurse Notified Ordering Provid er: GAYLA DOMINGUEZ Report Released Date/Time: May 07, 2022 06:46 AM Reporting Lab: [facility] [address] [facility] [address] Performing Lab: [facility] [address] [facility] [address] FINGERSTICK GLUCOSE 352 H 70-100 May 07, 2022 06:15 AM [facility] ALBUMIN Specim en Type: PLASMA No comment enter ed. Ordering Provid er: GAYLA DOMINGUEZ Report Released Date/Time: May 06, 2022 06:33 PM Reporting Lab: [facility] [address] [facility] [address] Performing Lab: [facility] [address] [facility] [address] ALBUMIN 3.0 L 3.5-5.2 May 07, 2022 [facility] COMPREHENSIVE METABOLIC Spec imen Type: PLASMA 06:15 AM PANEL+MG No comment enter ed. Ordering Provid er: GAYLA DOMINGUEZ Report Released Date/Time: May 06, 2022 09:11 PM Reporting Lab: [facility] [address] Performing Lab: [facility] [address] CREATININE 1.2 0.7-1.2 UREA NITROGEN 25 8-26 [...] L >60 May 07, 2022 06:15 AM [facility] CBC & DIFF Specim en Type: BLOOD Comment: Manual Differential Performed Ordering Provid er: GAYLA DOMINGUEZ Report Released Date/Time: May 06, 2022 09:11 PM Reporting Lab: [facility] [address] Performing Lab: [facility] [address] WBC 20.25 H 4.0-11.0 RBC 3.54 L [...] NORMOCYTIC, NORMOCHROMIC May 07, 2022 12:19 AM [facility] LACTIC ACID Specim en Type: PLASMA No comment enter ed. Ordering Provid er: GAYLA DOMINGUEZ Report Released Date/Time: May 06, 2022 07:13 PM Reporting Lab: [facility] [address] [facility] [address] Performing Lab: [facility] [address] [facility] [address] LACTIC ACID 2.7 H 0.5-2.2 May 06, 2022 10:45 [facility] FINGERSTICK GLUCOSE Speci men Type: BLOOD PM Comment: Mark casillas Nurse Notified Ordering Provid er: GAYLA DOMINGUEZ Report Released Date/Time: May 07, 2022 12:08 AM Reporting Lab: [facility] [address] [facility] [address] Performing Lab: [facility] [address] [facility] [address] FINGERSTICK GLUCOSE 320 H 70-100 May 06, 2022 06:53 [facility] MRSA SURVL NARES Specimen Type: NARES PM DNA No comment enter ed. Ordering Provid er: GAYLA DOMINGUEZ Report Released Date/Time: May 06, 2022 06:33 PM Reporting Lab: [facility] [address] [facility] [address] Performing Lab: [facility] [address] [facility] [address] MRSA SURVL NARES DNA POSITIVE HH Negative May 06, 2022 06:51 PM [facility] LACTIC ACID Specim en Type: PLASMA No comment enter ed. Ordering Provid er: GAYLA DOMINGUEZ Report Released Date/Time: May 06, 2022 06:04 PM Reporting Lab: [facility] [address] [facility] [address] Performing Lab: [facility] [address] [facility] [address] LACTIC ACID 3.1 H 0.5-2.2 May 06, 2022 06:51 [facility] CARDIAC TROPONIN I Specim en Type: PLASMA PM No comment enter ed. Ordering Provid er: GAYLA DOMINGUEZ Report Released Date/Time: May 06, 2022 06:05 PM Reporting Lab: [facility] [address] [facility] [address] Performing Lab: [facility] [address] [facility] [address] CARDIAC TROPONIN I <0.028 <0.028 May 06, 2022 06:51 [facility] EXTRA GOLD GEL TUBE Speci men Type: SERUM PM No comment enter ed. Ordering Provid er: GAYLA DOMINGUEZ Report Released Date/Time: May 06, 2022 06:52 PM Reporting Lab: [facility] [address] [facility] [address] Performing Lab: [facility] [address] [facility] [address] EXTRA GOLD GEL TUBE RECEIVED May 06, 2022 06:51 [facility] C-REACTIVE PROTEIN Specim en Type: PLASMA PM No comment enter ed. Ordering Provid er: GAYLA DOMINGUEZ Report Released Date/Time: May 06, 2022 09:29 PM Reporting Lab: [facility] [address] [facility] [address] Performing Lab: [facility] [address] [facility] [address] C-REACTIVE PROTEIN 392.40 H <5.00 May 06, 2022 10:51 AM [facility] URINALYSIS Specim en Type: URINE No comment enter ed. Ordering Provid er: MODESTA VILLANUEVA Report Released Date/Time: May 06, 2022 10:11 AM Reporting Lab: [facility] [address] [facility] [address] Performing Lab: [facility] [address] [facility] [address] URINE COLOR YELLOW SPECIFIC GRAVITY 1.020 1.003-1.035 [...] ESTERASE 500 NEGATIVE May 06, 2022 10:24 [facility] COVID-19 DIAGNOSTIC Speci men Type: NASOPHARYNGEAL AM PANEL (CEPHEID) Comment: Cephei d GeneXpert (618) Ordering Provid er: MODESTA VILLANUEVA Report Released Date/Time: May 06, 2022 10:11 AM Reporting Lab: [facility] [address] [facility] [address] Performing Lab: [facility] [address] COVID-19 (CEPHEID) Not Detected Not Dete cted May 06, 2022 10:20 AM [facility] POC ABG/LACTATE Specim en Type: VENOUS BLOOD No comment enter ed. Ordering Provid er: MODESTA VILLANUEVA Report Released Date/Time: May 06, 2022 10:22 AM Reporting Lab: [facility] [address] [facility] [address] Performing Lab: [facility] [address] [facility] [address] POC PH 7.410 7.31-7.41 POC PCO2 28.9 L 35.00-45.00 POC PO2 82 H 35.0-40.0 POC TCO2 19 L 24.0-29.0 POC HCO3 18.3 L 23.0-28.0 POC BE ECT -6 L -2 POC SO2 96 H 70-75 POC LACTATE 3.62 0.90-1.70 May 06, 2022 10:00 AM [facility] PHOSPHORUS Specim en Type: PLASMA No comment enter ed. Ordering Provid er: MODESTA VILLANUEVA Report Released Date/Time: May 06, 2022 10:11 AM Reporting Lab: [facility] [address] [facility] [address] Performing Lab: [facility] [address] [facility] [address] PHOSPHORUS 2.5 2.3-4.7 May 06, 2022 10:00 [facility] PROTHROMBIN TIME/INR Spec imen Type: PLASMA AM No comment enter ed. Ordering Provid er: MODESTA VILLANUEVA Report Released Date/Time: May 06, 2022 10:11 AM Reporting Lab: [facility] [address] [facility] [address] Performing Lab: [facility] [address] [facility] [address] .INR 2.5 H 0.8-1.1 .PT 29.2 H 9.4-12.5 May 06, 2022 10:00 [facility] ACT PART THROMBO TIME Spe cimen Type: PLASMA AM No comment enter ed. Ordering Provid er: MODESTA VILLANUEVA Report Released Date/Time: May 06, 2022 10:11 AM Reporting Lab: [facility] [address] [facility] [address] Performing Lab: [facility] [address] [facility] [address] APTT 37.8 H 25.1-36.5 May 06, 2022 10:00 AM [facility] PROCALCITONIN Specim en Type: PLASMA No comment enter ed. Ordering Provid er: MODESTA VILLANUEVA Report Released Date/Time: May 06, 2022 10:11 AM Reporting Lab: [facility] [address] [facility] [address] Performing Lab: [facility] [address] [facility] [address] PROCALCITONIN 22.29 H <0.09 May 06, 2022 10:00 [facility] CARDIAC TROPONIN I Specim en Type: PLASMA AM Comment: Critic al Value Reported To: BROOKS COTE 05-06-2022 @1053 BY MBB. Critical value report confirmed. Ordering Provid er: MODESTA VILLANUEVA Report Released Date/Time: May 06, 2022 10:11 AM Reporting Lab: [facility] [address] [facility] [address] Performing Lab: [facility] [address] [facility] [address] CARDIAC TROPONIN I 0.035 HH <0.028 May 06, 2022 [facility] COMPREHENSIVE METABOLIC Spec imen Type: PLASMA 10:00 AM PANEL+MG Comment: Manual Differential Performed Ordering Provid er: MODESTA VILLANUEVA Report Released Date/Time: May 06, 2022 10:11 AM Reporting Lab: [facility] [address] [facility] [address] Performing Lab: [facility] [address] [facility] [address] CREATININE 1.3 H 0.7-1.2 UREA NITROGEN 25 [...] L >60 May 06, 2022 10:00 AM [facility] LIPASE Specim en Type: PLASMA No comment enter ed. Ordering Provid er: MODESTA VILLANUEVA Report Released Date/Time: May 06, 2022 10:11 AM Reporting Lab: [facility] [address] [facility] [address] Performing Lab: [facility] [address] [facility] [address] LIPASE <4 <60 May 06, 2022 10:00 AM [facility] CBC & DIFF Specim en Type: BLOOD Comment: Manual Differential Performed Ordering Provid er: MODESTA VILLANUEVA Report Released Date/Time: May 06, 2022 10:11 AM Reporting Lab: [facility] [address] [facility] [address] Performing Lab: [facility] [address] [facility] [address] WBC 18.82 H 4.0-11.0 RBC 3.70 L [...] .RBC MORPHOLOGY PRESENT May 06, 2022 10:00 [facility] EXTRA GOLD GEL TUBE Speci men Type: SERUM AM No comment enter ed. Ordering Provid er: LINNEA RAND Report Released Date/Time: May 06, 2022 10:25 AM Reporting Lab: [facility] [address] [facility] [address] Performing Lab: [facility] [address] [facility] [address] EXTRA GOLD GEL TUBE RECEIVED May 06, 2022 09:46 [facility] FINGERSTICK GLUCOSE Speci men Type: BLOOD AM Comment: Mark casillas Nurse Notified Ordering Provid er: MODESTA VILLANUEVA Report Released Date/Time: May 06, 2022 09:59 AM Reporting Lab: [facility] [address] [facility] [address] Performing Lab: [facility] [address] [facility] [address] FINGERSTICK GLUCOSE 369 H 70-100 Apr 30, 2022 [facility] BASIC METABOLIC Specimen Typ e: PLASMA 09:17 AM PANEL+MG No comment enter ed. Ordering Provid er: BILL ROONEY Report Released Date/Time: Apr 30, 2022 08:21 AM Reporting Lab: [facility] [address] Performing Lab: [facility] [address] CREATININE 1.2 0.7-1.2 UREA NITROGEN 26 8-26 GLUCOSE 140 H 70-100 SODIUM 138 136-145 POTASSIUM 3.8 3.5-5.1 CHLORIDE 107 98-107 CO2 20 L 22-29 CALCIUM 9.4 8.4-10.2 MAGNESIUM 1.7 1.6-2.6 ANION GAP 11 5-15 CREAT EGFR(CKD-EPI) 59 L >60 Apr 30, 2022 09:17 AM [facility] CBC Specim en Type: BLOOD No comment enter ed. Ordering Provid er: BILL ROONEY Report Released Date/Time: Apr 30, 2022 08:21 AM Reporting Lab: [facility] [address] Performing Lab: [facility] [address] WBC 10.40 4.0-11.0 RBC 3.96 L 4.6-6.2 [...] dy Source Pressure Rate Mass Index May 072021 12:[address] PM [facility] May 072021 04:[address] AM [facility] May 072021 03:23 [facility] May 07 266.76 35 2021 12:15 lb [facility] AM [facility] Social History: Smoking Status (Most current) and Tobacco Use (All prior to encounter date) This section includes the most current, and the historical, smoking and tobacco-related health factors from the [facility] where the Encounter took place.Current [...] the Encounter. The data comes from the [facility] where the Encounter took place. [...] December 23, 2017 CLINICAL WARNING [facility] May 11, 2003 ADVANCE DIRECTIVE BERT CASILLAS [facility] Radiology Reports: +/- 30 days [...] VIEW: SONJA OVALLES V [facility] AM LU[place] EDDY [id number] -1935 M Exm Date: MAY 11, 2022@09:46 Req Phys: MALINICODIE Camron Pat Loc: OP Unknown /05-13-2022@05:05 Img Loc: MAIN X-RAY Service: PRIMARY CARE - MED OFFICE (Case [id number] COMPLETE) CHEST 1 VIEW (RAD Detailed) CPT:85389 Proc Modifiers : PORTABLE EXAM Reason for [...] 11, 2022 Date Verified: MAY 11, 2022 Engagement Specialist E-Sig:/ES/SONJA OVALLES MD Report: CHEST 1 [...] Primary Interpreting Staff: SONJA OVALLES MD, RADIOLOGIST (Engagement Specialist) /CDC May 10, 2022 03:49 CT HEAD (P): RADIOLOGY,OUTSIDE [facility] PM LU[place]NA EDDY [id number] -1935 M SERVICE Exm Date: MAY 10, 2022@15:49 Req Phys: CODIE LEON Loc: OP Unknown /05-13-2022@05:05 Img Loc: CT IMAGING Service: PRIMARY CARE - MED OFFICE (Case [id number] COMPLETE) CT HEAD/BRAIN W/O CONTRAST (CT Detailed) CPT:62231 Reason for Study: CHANGE IN MENTAL STATUS Clinical History: CHANGE IN MENTAL STATUS. ORDER ADMINISTRATIVELY ENTERED FOLLOWING SYSTEM OUTAGE. Report Status: Verified Date Reported: MAY 10, 2022 Date Verified: MAY 10, 2022 Engagement Specialist E-Sig: Report: CT HEAD/BRAIN W/O CONTRAST [...] study. READING PHYSICIAN: Akash Mccoy M.D. -[phone] 05/10/2022 17:35 PDT [facility] National Teleradiology Program [phone] (For Medical Practitioner Use Only ) Attention Patients / Veterans: If you have ques tions or concerns about these test results, please contact your o rdering provider or primary care team. Primary Interpreting Staff: RADIOLOGY,OUTSIDE SERVICE, Staff Physician / May 08, 2022 07:45 CT T-SPINE (P): RADIOLOGY,OUTSIDE [facility] PM LUISANA EDDY [id number] -1935 M SERVICE Exm Date: MAY 08, 2022@19:45 Req Phys: CODIE LEON Loc: OP Unknown /05-13-2022@05:05 Img Loc: CT IMAGING Service: PRIMARY CARE - MED OFFICE (Case [id number] COMPLETE) CT SPINE THORACIC W/O CONTR AST (CT Detailed) CPT:56747 Reason for Study: mrsa bacteremia, spinal surge ry - r/o abscess or discitis Clinical History: IS NOT under investigation for COVID-19 or is COVID-19 negative Defer to radiologist for final CT protocol. Responsible provider name and phone number to n otify for critical findings if other than user placing the order a nd pager listed below: User placing orders pager: [phone] LAST 3: Collection DT Specimen Test Name [...] GFR (eGF 44 L Ref: >=60 Allergies: ([place] only) SIMVASTATIN (Feb 29, 2004) CEPHALEXIN (Mar 01, 2004) Report Status: Verified Date Reported: MAY 08, 2022 Date Verified: MAY 08, 2022 Engagement Specialist E-Sig: Report: CT SPINE THORACIC W/O CONTRAST [PRINTSET] HISTORY:MRSA bacteremia NUMBER OF IMAGES:1151 COMPARISON: Correlation with images from recent CT abdomen and pelvis May 06, 2022 TECHNIQUE: A non contrast CT of the thoracic sp ine was performed at the local CT. [facility] [...] itis at any thoracic level. READING PHYSICIAN: Liusana Webb MD -[phone] 05/08/2022 19:20 PDT [facility] National Teleradiology Program [phone] (For Medical Practitioner Use Only ) Attention Patients / Veterans: If you have ques tions or concerns about these test results, please contact your [facility] provider or primary care team. Primary Interpreting Staff: RADIOLOGY,OUTSIDE SERVICE, Staff Physician / May 08, 2022 04:48 CHEST 1 VIEW: RADIOLOGY,OUTSIDE [facility] PM LUISANA EDDY [id number] -1935 M SERVICE Exm Date: MAY 08, 2022@16:48 Req Phys: CODIE LEON Loc: OP Unknown /05-13-2022@05:05 Img Loc: MAIN X-RAY Service: PRIMARY CARE - MED OFFICE (Case [id number] COMPLETE) CHEST 1 VIEW (RAD Detailed) CPT:08503 Proc Modifiers : PORTABLE EXAM Reason for Study: dyspnea Clinical History: [place] IS NOT under investigation for COVID-19 or is COVID-19 negative acute worsening of dyspnea Responsible provider name and phone number to notify for critical findings if other than user placing the order and pager listed below: User placing orders pager: [phone] malini cell [phone] LAST CREATININE 1.1 (05/08/22) Report Status: Verified Date Reported: MAY 08, 2022 Date Verified: MAY 08, 2022 Engagement Specialist E-Sig: Report: CHEST 1 VIEW HISTORY: [...] e [place] READING PHYSICIAN: Nghia Menjivar M.D. -[phone] 05/08/2022 18:57 EDT [facility] National Teleradiology Program [phone] (For Medical Practitioner Use Only ) Attention Patients / Veterans: If you have ques tions or concerns about these test results, please contact your o rdering provider or primary care team. Primary Interpreting Staff: RADIOLOGY,OUTSIDE SERVICE, Staff Physician / May 07, 2022 10:29 CT HEAD (P): SHANI POLANCO [facility] LUISANA EDDY [id number] -1935 M Exm Date: MAY 07, 2022@10:29 Req Phys: BETO AYALA Loc: OP Unknown/0 05-13-2022@05:05 Im Loc: CT IMAGING Service: PRIMARY CARE - MED OFFICE (Case [id number] COMPLETE) CT HEAD/BRAIN W/O CONTRAST ( CT Detailed) CPT:51519 Reason for Study: seizure noted at [facility] Clinical History: IS NOT under investigation for COVID-19 or is COVID-19 negative Defer to radiologist for final CT protocol. Responsible provider name and phone number to n otify for critical findings if other than user placing the order a nd pager listed below: User placing orders pager: [phone] LAST 3: Collection DT Specimen Test Name [...] GFR (eGF 44 L Ref: >=60 Allergies: ([place] only) SIMVASTATIN (Feb 29, 2004) CEPHALEXIN (Mar 01, 2004) Report Status: Verified Date Reported: MAY 07, 2022 Date Verified: MAY 07, 2022 Engagement Specialist E-Sig:/ES/SHANI POLANCO MD Report: EXAM: CT HEAD/BRAIN W/O CONTRAST HISTORY: seizure noted at [facility] Reason for Study: seizure noted at [facility] [place] IS NOT under investigation for COVID-19 or is COVID-19 negative Defer to radiologist for final CT prot ocol. Responsible provider name and phone number to notify for cr itical findings if other than user placing the order and pager lis nola below: User placing orders pager: [phone] LAST 3: Collecti on DT Specimen Test [...] Primary Interpreting Staff: SHANI POLANCO MD, RADIOLOGIST (Engagement Specialist) /Javed May 06, 2022 11:40 CHEST 1 VIEW: RADIOLOGY,OUTSIDE [facility] AM LUISANA EDDY Miguel [id number] -1935 M SERVICE Exm Date: MAY 06, 2022@11:40 Req Phys: MODESTA VILLANUEVA Loc: [facility] EMERGENCY DEPT WALK-IN (Re Img Loc: MAIN X-RAY Service: Unknown (Case 73 COMPLETE) CHEST 1 VIEW (RAD Detailed) C PT:40789 Proc Modifiers : PORTABLE EXAM Reason for [...] pager listed below: User placing orders pager: [phone] LAST CREATININE 1.2 (04/30/22) Report Status: Verified Date Reported: MAY 06, 2022 Date Verified: MAY 06, 2022 Engagement Specialist E-Sig: Report: Technique: Frontal chest. No comparison Impression: Cardiac silhouette is mildly enlarged. There is mild pulmonary venous congestion. No definite pleural effusion . No pneumothorax seen. READING PHYSICIAN: Vern Donnelly M.D. -[id number] 05/06/2022 13:26 EDT [facility] National Teleradiology Program [phone] (For Medical Practitioner Use Only ) Attention Patients / Veterans: If you have ques tions or concerns about these test results, please contact your o [facility] provider or primary care team. Primary Interpreting Staff: RADIOLOGY,OUTSIDE SERVICE, Staff Physician / May 06, 2022 10:36 CT (AP) ABDOMEN/PELVIS (P): RADIOLOGY,OUTSIDE [facility] LUISANA EDDY [id number] -1935 M SERVICE Exm Date: MAY 06, 2022@10:36 Req Phys: MODESTA VILLANUEVA Loc: [facility] EMERGENCY DEPT WALK-IN (Re Img Loc: CT IMAGING Service: Unknown (Case 66 COMPLETE) CT (AP) ABDOMEN/PELVIS W CONT RAST(CT Detailed) CPT:33913 Reason for Study: fever, back pain Clinical [...] pager listed below: User placing orders pager: [phone] LAST 3: Collection DT Specimen Test Name [...] ESTIMATED GFR(eGF 44 L Ref: >=60 Allergies: ([place] only) SIMVASTATIN (Feb 29, 2004) CEPHALEXIN (Mar 01, 2004) To see allergies from all CT locations click Re ports tab>Remote Data>All Available Sites>Clinical Reports>Aller gies. Report Status: Verified Date Reported: MAY 06, 2022 Date Verified: MAY 06, 2022 Engagement Specialist E-Sig: Report: Exam: CT (AP) ABDOMEN/PELVIS [...] findings, above. READING PHYSICIAN: Eduin Donaldson M.D. -[phone] 05/06/2022 12:48 [facility] National Teleradiology Program [phone] (For Medical Practitioner Use Only ) Attention Patients / Veterans: If you have ques tions or concerns about these test results, please contact your o rdering provider or primary care team. Primary Interpreting Staff: RADIOLOGY,OUTSIDE SERVICE, Staff Physician / May 06, 2022 10:35 CT CERVICAL SPINE W/O CONTRAST: RADIOLOGY,OUT SIDE [facility] AM [place],LUISANA [id number] -1935 M SERVICE Exm Date: MAY 06, 2022@10:35 Req Phys: MODESTA VILLANUEVA Loc: [facility] EMERGENCY DEPT WALK-IN (Re Img Loc: CT IMAGING Service: Unknown (Case 65 COMPLETE) CT CERVICAL SPINE W/O CONTRAS T (CT Detailed) CPT:99201 Reason for Study: falls, blood thinner, AMS, se izure Clinical History: falls, blood thinner, AMS, seizure [place] IS under investigation (PUI) for COVID- 19 or is COVID-19+ Defer to radiologist for final CT protocol. Responsible provider name and phone number to n otify for critical findings if other than user placing the order a nd pager listed below: User placing orders pager: [phone] LAST 3: Collection DT Specimen Test Name [...] ESTIMATED GFR(eGF 44 L Ref: >=60 Allergies: ([place] only) SIMVASTATIN (Feb 29, 2004) CEPHALEXIN (Mar 01, 2004) To see allergies from all [facility] locations click Re ports tab>Remote Data>All Available Sites>Clinical Reports>Lashon king. Report Status: Verified Date Reported: MAY 06, 2022 Date Verified: MAY 06, 2022 Engagement Specialist E-Sig: Report: CT CERVICAL SPINE W/O CONTRAST HISTORY:falls, blood thinner, AMS, seizure NUMBER OF IMAGES:770 COMPARISON: None available. TECHNIQUE: A non contrast CT of the cervical sp ine was performed at the local CT. [facility] findings, above. READING PHYSICIAN: Eduin Donaldson M.D. -[phone] 05/06/2022 12:33 [facility] National Teleradiology Program [phone] (For Medical Practitioner Use Only ) Attention Patients / Veterans: If you have ques tions or concerns about these test results, please contact your o rdering provider or primary care team. Primary Interpreting Staff: RADIOLOGY,OUTSIDE SERVICE, Staff Physician / May 06, 2022 10:35 CT HEAD/BRAIN W/O CONTRAST: RADIOLOGY,OUTSIDE [facility] LUISANA EDDY [id number] -1935 M SERVICE Exm Date: MAY 06, 2022@10:35 Req Phys: MODESTA VILLANUEVA Loc: [facility] EMERGENCY DEPT WALK-IN (Re Img Loc: CT IMAGING Service: Unknown (Case 64 COMPLETE) CT HEAD/BRAIN W/O CONTRAST (C T Detailed) CPT:81452 Reason for Study: falls, blood thinner, AMS, se izure Clinical History: falls, blood thinner, AMS, seizure [place] IS under investigation (PUI) for COVID- 19 or is COVID-19+ Defer to radiologist for final CT protocol. Responsible provider name and phone number to n otify for critical findings if other than user placing the order a nd pager listed below: User placing orders pager: [phone] LAST 3: Collection DT Specimen Test Name [...] ESTIMATED GFR(eGF 44 L Ref: >=60 Allergies: ([place] only) SIMVASTATIN (Feb 29, 2004) CEPHALEXIN (Mar 01, 2004) To see allergies from all CT locations click Re ports tab>Remote Data>All Available Sites>Clinical Reports>Aller gies. Report Status: Verified Date Reported: MAY 06, 2022 Date Verified: MAY 06, 2022 Engagement Specialist E-Sig: Report: CT HEAD/BRAIN W/O CONTRAST [...] T findings. READING PHYSICIAN: Eduin Donaldson M.D. -[phone] 05/06/2022 12:30 [facility] National Teleradiology Program [phone] (For Medical Practitioner Use Only ) Attention Patients / Veterans: If you have ques tions or concerns about these test results, please contact your [facility] provider or primary care team. [...] 09, 2022 05:30 AM LR MICROBIOLOGY REPORT: IN [facility] Reporting Lab: [facility] [CLIA# [id number] 147] [place] [address] Accession [UID]: [id number] [[id number]] Receiv ed: May 09, 2022@01:35 Collection sample: BLOOD Collection date: Apr 05:30 Provider: CODIE LEON Comment on specimen: LEFT ARM, RECEIVED 2 BLOOD CULTURE BOTTLES Test(s) ordered: CULTURE & SUSCEPTIBILITY...... 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 R TRIMETH/SULFA................. S TETRACYCLINE.................. S CLINDAMYCIN................... S RIFAMPIN...................... S VANCOMYCIN.................... S Bacteriology Remark(s): VANCOMYCIN SHAMIKA: <=0.5 ug/mL THIS REPORT IS FINAL =--=--=--=--=--=--=--=--=--=--=--=--=--= --=--=--=--=--=--=--=--=--=--=--=--=-- Performing Laboratory: Bacteriology Report Performed By: [facility] [CLIA# [id number]] [place] [address] May 08, 2022 03:23 PM LR MICROBIOLOGY REPORT: [facility] Reporting Lab: [facility] [CLIA# [id number] 147] [place] [address] Accession [UID]: [id number] [[id number]] Receiv ed: May 08, 2022@15:41 Collection sample: BLOOD Collection date: Apr 15:23 Provider: CODIE LEON Comment on specimen: LEFT ARM, RECEIVED 2 BLOOD CULTURE BOTTLES Test(s) ordered: CULTURE & SUSCEPTIBILITY...... completed: May 10, 2022 * BACTERIOLOGY FINAL REPORT => May 10, 2022 16:3 1 TECH CODE: [id number] CULTURE RESULTS: GROWTH SAME THAT OF ANOTHER CULTURE Comment: FOR SUSCEPTIBILITY REPORT SEE PREVIOUS POSITIVE SAME LUIS MIGUEL 22 [id number] ( 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 from Anaerobic bottle ) ( Recovered from Aerobic bottle ) Bacteriology Remark(s): THIS REPORT IS FINAL =--=--=--=--=--=--=--=--=--=--=--=--=--= --=--=--=--=--=--=--=--=--=--=--=--=-- Performing Laboratory: Bacteriology Report Performed By: [facility] [CLIA# [id number]] [place] [address] May 08, 2022 03:21 PM LR MICROBIOLOGY REPORT: [facility] Reporting Lab: [facility] [CLIA# [id number] 147] [place] [address] Accession [UID]: [id number] [[id number]] Receiv ed: May 08, 2022@15:40 Collection sample: BLOOD Collection date: Apr 15:21 Provider: CODIE LEON Comment on specimen: RT ARM, RECEIVED 2 BLOOD CU LTURE BOTTLES Test(s) ordered: CULTURE & SUSCEPTIBILITY...... completed: May 10, 2022 * BACTERIOLOGY FINAL REPORT => May 10, 2022 16:3 1 TECH CODE: [id number] CULTURE RESULTS: GROWTH SAME THAT OF ANOTHER CULTURE Comment: FOR SUSCEPTIBILITY REPORT SEE PREVIOUS POSITIVE SAME MB 22 [id number] ( 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 from Anaerobic bottle ) ( Recovered from Aerobic bottle ) Bacteriology Remark(s): THIS REPORT IS FINAL =--=--=--=--=--=--=--=--=--=--=--=--=--= --=--=--=--=--=--=--=--=--=--=--=--=-- Performing Laboratory: Bacteriology Report Performed By: [facility] [CLIA# [id number]] [place] [address] May 07, 2022 05:30 AM LR MICROBIOLOGY REPORT: IN [facility] Reporting Lab: [facility] [CLIA# [id number] 147] [place] [address] Accession [UID]: [id number] [[id number]] Receiv ed: May 07, 2022@01:35 Collection sample: [...] REPORT SEE PREVIOUS POSITIVE SAME MB 22 [id number] ( 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 from Aerobic bottle ) ( Recovered from Anaerobic bottle ) Bacteriology Remark(s): THIS REPORT IS FINAL =--=--=--=--=--=--=--=--=--=--=--=--=--= --=--=--=--=--=--=--=--=--=--=--=--=-- Performing Laboratory: Bacteriology Report Performed By: [facility] [CLIA# [id number]] [place] [address] May 06, 2022 10:51 AM LR MICROBIOLOGY REPORT: [facility] Reporting Lab: [facility] [CLIA# [id number] 147] [place] [address] Accession [UID]: [id number] [[id number]] Receiv ed: May 06, 2022@11:32 Collection sample: [...] --=--=--=--=--=--=--=--=--=--=--=--=-- Performing Laboratory: Bacteriology Report Performed By: [facility] [CLIA# [id number]] [place] [address] May 06, 2022 10:34 AM LR MICROBIOLOGY REPORT: [facility] Reporting Lab: [facility] [CLIA# [id number] 147] [place] [address] Accession [UID]: [id number] [[id number]] Receiv ed: May 06, 2022@10:51 Collection sample: BLOOD Collection date: Apr 10:34 Provider: MODESTA VILLANUEVA Comment on specimen: RECEIVED 2 BLOOD CULTURE [facility] Test(s) ordered: CULTURE & SUSCEPTIBILITY...... completed: May 07, 2022 * BACTERIOLOGY FINAL REPORT => May 08, 2022 08:3 0 TECH CODE: [id number] CULTURE RESULTS: STAPHYLOCOCCUS AUREUS METHICILL IN RESISTANT [...] --=--=--=--=--=--=--=--=--=--=--=--=-- Performing Laboratory: Bacteriology Report Performed By: [facility] [CLIA# [id number]] [place] [address] May 06, 2022 10:00 AM LR MICROBIOLOGY REPORT: [facility] Reporting Lab: [facility] [CLIA# [id number] 147] [place] [address] Accession [UID]: [id number] [[id number]] Receiv ed: May 06, 2022@10:41 Collection sample: [...] SUSCEPTIBILITY REPORT SEE PREVIOUS POSITIVE SAME 22 12614 ( 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 from Anaerobic bottle ) ( Recovered from Aerobic bottle ) Bacteriology Remark(s): THIS REPORT IS FINAL =--=--=--=--=--=--=--=--=--=--=--=--=--= --=--=--=--=--=--=--=--=--=--=--=--=-- Performing Laboratory: Bacteriology Report Performed By: [facility] [CLIA# [id number]] [place] [address]
--- OUTSIDE RECORDS SUMMARY | 2022-05-15 09:39 | XMS_ITS ---
DAILY HOSPITALIZATION DATA [facility] Encounter Summary Created on:May 09, 2022 Patient:LUISANA EDDY Sex:Male :1935 Author Organization Department [facility] rs Address [address] [place] [address] Support Name Relationship Address Phone WADE LORENZO Unavailable [address] [place] [address] WADE LORENZO Unavailable [address] [place] [address] ARACELI MARSHALL Unavailable [address] [place] [address] MARILIA MARSHALLA Unavailable [address] [place] [address] Insurance Providers: All historical and current Section [...] [place] MED[place] M[place] Aug 19, [id number] Kristel EDDY [facility] (WNR) ADVANTAGE (WNR) 2016 8 [id number] [phone] [facility] 1 [place] MEDICARE M[place] Aug 19, [id number] Kristel EDDY [facility] (WNR) ADVANTAGE (WNR) 2016 8 [id number] [phone] [facility] 1 Selected Encounter This section includes the information on record at [place] for the Encounter. Date/Time Encounter Type Encounter Description Reason Provider Source May 09, 2022 03:17 Inpatient Visit DAILY HOSPITALIZATION DATA [facility] Encounter Template Text not used by [place] Plan of Treatment: Future Appointments (+ 6 months) and Future Tests (+/- 45 days) The Plan of Treatment section includes future care activities for the patient from [facility] [place] [facility] This section includes future appointments and [...] 08:00 AM AMBULATORY - NEUROLOGY [facility] Active, Pending, and Scheduled Orders [...] The data comes from all [place] treatment [facility]. Test Date/Time Test Type Test Details Facility Name Apr 30, 2022 08:21 Laboratory - Chemistry URINALYSIS URINE WC ON CE [facility] AM Order Apr 30, 2022 08:21 Laboratory - CULTURE & SUSCEPTIBILITY [facility] AM Microbiology Order URINE WC May 06, 2022 12:00 Laboratory - Blood ABO/RH - LAB BLOOD [facility] AM Bank Order May 06, 2022 10:11 Laboratory - Blood TYPE & SCREEN - LAB [facility] AM Bank Order BLOOD WC May 06, 2022 10:27 Pharmacy [facility] AM Medication Order May 06, 2022 10:28 [facility] AM Infusion Order May 06, 2022 10:34 [facility] AM Infusion Order May 06, 2022 10:41 [facility] AM Infusion Order May 06, 2022 12:15 [facility] PM Medication Order May 06, 2022 01:31 [facility] PM Medication Order May 06, 2022 04:49 [facility] PM Medication Order May 07, 2022 01:00 Laboratory - CULTURE & SUSCEPTIBILITY [facility] PM Microbiology Order BLOOD WC ONCE May 11, 2022 09:07 [facility] AM Microbiology Order BLOOD WC May 11, 2022 09:07 Laboratory - CULTURE & SUSCEPTIBILITY [facility] AM Microbiology Order BLOOD WC May 11, 2022 09:38 Laboratory - Chemistry EOSINOPHIL SMEAR,URINE [facility] AM Order URINE WC ONCE May 11, 2022 09:38 Laboratory - Chemistry URINALYSIS URINE WC ON CE [facility] AM Order May 11, 2022 09:38 Laboratory - Chemistry FENA URINE WC ONCE [facility] AM Order Lab Results: +/- [...] Reference Range Comment May 11, 2022 11:13 [facility] FINGERSTICK GLUCOSE Speci men Type: BLOOD AM Comment: Mark casillas Nurse Notified Ordering Provid er: CODIE LEON Report Released Date/Time: May 11, 2022 11:53 AM Reporting Lab: [facility] [address] [facility] [address] Performing Lab: [facility] [address] [facility] [address] FINGERSTICK GLUCOSE 367 H 70-100 May 11, 2022 07:05 [facility] LIVER FUNCTION TESTS Spec imen Type: PLASMA AM No comment enter ed. Ordering Provid er: CODIE LEON Report Released Date/Time: May 11, 2022 09:08 AM Reporting Lab: [facility] [address] [facility] [address] Performing Lab: [facility] [address] [facility] [address] BILIRUBIN, TOTAL 1.6 H 0.2-1.2 ALKALINE PHOSPHATASE 102 40-150 ALT/SGPT 42 <55 AST/SGOT 30 <34 GAMMA GTP 52 <64 DIR. BILIRUBIN 1.2 H <0.5 May 11, 2022 07:05 [facility] BASIC METABOLIC Specimen Type: PLASMA AM PANEL+MG No comment enter ed. Ordering Provid er: OG DIAL Report Released Date/Time: May 11, 2022 04:46 AM Reporting Lab: [facility] [address] [facility] [address] Performing Lab: [facility] [address] [facility] [address] CREATININE 1.6 H 0.7-1.2 UREA NITROGEN 28 H 8-26 GLUCOSE 396 H 70-100 SODIUM 150 H 136-145 POTASSIUM 3.7 3.5-5.1 CHLORIDE 120 H 98-107 CO2 23 22-29 CALCIUM 8.4 8.4-10.2 MAGNESIUM 2.1 1.6-2.6 ANION GAP 7 5-15 CREAT EGFR(CKD-EPI) 42 L >60 May 11, 2022 07:05 AM [facility] CBC Specim en Type: BLOOD No comment enter ed. Ordering Provid er: OG DIAL Report Released Date/Time: May 11, 2022 04:46 AM Reporting Lab: [facility] [address] [facility] [address] Performing Lab: [facility] [address] [facility] [address] WBC 15.93 H 4.0-11.0 RBC 3.60 L 4.6-6.2 HGB 11.2 L 13.5-17.9 HCT 35.3 L 41-54 MCV 98.1 80-100 MCH 31.1 27-33 MCHC 31.7 L 32.0-37.5 PLT 231 150-400 MPV 11.2 H 7.4-10.4 RDW 15.2 H 11.5-14.5 May 11, 2022 07:05 AM [facility] CK,TOTAL Specim en Type: PLASMA No comment enter ed. Ordering Provid er: CODIE LEON Report Released Date/Time: May 11, 2022 09:08 AM Reporting Lab: [facility] [address] [facility] [address] Performing Lab: [facility] [address] [facility] [address] CK,TOTAL 16 L 39-208 May 11, 2022 07:05 AM [facility] BNP Specim en Type: PLASMA No comment enter ed. Ordering Provid er: CODIE LEON Report Released Date/Time: May 11, 2022 09:15 AM Reporting Lab: [facility] [address] [facility] [address] Performing Lab: [facility] [address] [facility] [address] BNP 59 <99 May 11, 2022 06:14 [facility] FINGERSTICK GLUCOSE Speci men Type: BLOOD AM Comment: Mark casillas Nurse Notified Ordering Provid er: CODIE LEON Report Released Date/Time: May 11, 2022 06:42 AM Reporting Lab: [facility] [address] [facility] [address] Performing Lab: [facility] [address] [facility] [address] FINGERSTICK GLUCOSE 345 H 70-100 May 11, 2022 02:24 [facility] FINGERSTICK GLUCOSE Speci men Type: BLOOD AM Comment: Mark casillas Ordering Provid er: CODIE LEON Report Released Date/Time: May 11, 2022 02:44 AM Reporting Lab: [facility] [address] [facility] [address] Performing Lab: [facility] [address] [facility] [address] FINGERSTICK GLUCOSE 375 H 70-100 May 10, 2022 08:38 [facility] FINGERSTICK GLUCOSE Speci men Type: BLOOD PM Comment: Mark casillas Ordering Provid er: CODIE LEON Report Released Date/Time: May 11, 2022 12:31 AM Reporting Lab: [facility] [address] [facility] [address] Performing Lab: [facility] [address] [facility] [address] FINGERSTICK GLUCOSE 346 H 70-100 May 10, 2022 05:05 [facility] FINGERSTICK GLUCOSE Speci men Type: BLOOD PM Comment: Mark casillas Nurse Notified Ordering Provid er: CODIE LEON Report Released Date/Time: May 10, 2022 11:50 PM Reporting Lab: [facility] [address] [facility] [address] Performing Lab: [facility] [address] [facility] [address] FINGERSTICK GLUCOSE 245 H 70-100 May 10, 2022 02:00 [facility] VANCOMYCIN (TROUGH) Speci men Type: PLASMA PM No comment enter ed. Ordering Provid er: CODIE LEON Report Released Date/Time: May 11, 2022 01:34 AM Reporting Lab: [facility] [address] [facility] [address] Performing Lab: [facility] [address] [facility] [address] VANCOMYCIN (TROUGH) 31.8 H 10.0-15.0 May 10, 2022 [facility] BASIC METABOLIC Specimen Typ e: PLASMA 02:00 PM PANEL+MG No comment enter ed. Ordering Provid er: CODIE LEON Report Released Date/Time: May 11, 2022 01:34 AM Reporting Lab: [facility] [address] Performing Lab: [facility] [address] CREATININE 1.1 .7-1.2 UREA NITROGEN 22 8-26 GLUCOSE 279 H 70-100 SODIUM 150 H 136-145 POTASSIUM 3.2 L 3.5-5.1 CHLORIDE 116 H 98-107 CO2 23 22-29 CALCIUM 8.5 8.4-10.2 MAGNESIUM 2.0 1.6-2.6 ANION GAP 11 5-15 CREAT EGFR(CKD-EPI) 65 >60 May 10, 2022 01:20 PM [facility] CBC & DIFF Specim en Type: BLOOD Comment: Automa nola Differential Performed Ordering Provid er: MD ESTEBAN Report Released Date/Time: May 10, 2022 08:52 PM Reporting Lab: [facility] [address] Performing Lab: [facility] [address] WBC 16.24 H 4.0-11.0 RBC 3.76 L [...] 0.28 H 0-0.1 May 10, 2022 11:07 [facility] FINGERSTICK GLUCOSE Speci men Type: BLOOD AM Comment: Mark casillas Nurse Notified Ordering Provid er: CODIE LEON Report Released Date/Time: May 11, 2022 12:31 AM Reporting Lab: [facility] [address] [facility] [address] Performing Lab: [facility] [address] [facility] [address] FINGERSTICK GLUCOSE 253 H 70-100 May 10, 2022 06:16 [facility] FINGERSTICK GLUCOSE Speci men Type: BLOOD AM Comment: Mark casillas Nurse Notified Ordering Provid er: CODIE LEON Report Released Date/Time: May 10, 2022 11:50 PM Reporting Lab: [facility] [address] [facility] [address] Performing Lab: [facility] [address] [facility] [address] FINGERSTICK GLUCOSE 271 H 70-100 May 09, 2022 09:07 [facility] FINGERSTICK GLUCOSE Speci men Type: BLOOD PM Comment: Mark casillas Ordering Provid er: CODIE LEON Report Released Date/Time: May 10, 2022 11:50 PM Reporting Lab: [facility] [address] [facility] [address] Performing Lab: [facility] [address] [facility] [address] FINGERSTICK GLUCOSE 209 H 70-100 May 09, 2022 05:33 [facility] FINGERSTICK GLUCOSE Speci men Type: BLOOD PM Comment: Mark casillas Nurse Notified Ordering Provid er: CODIE LEON Report Released Date/Time: May 09, 2022 05:53 PM Reporting Lab: [facility] [address] [facility] [address] Performing Lab: [facility] [address] [facility] [address] FINGERSTICK GLUCOSE 251 H 70-100 May 09, 2022 02:09 [facility] VANCOMYCIN (PEAK) Specime n Type: SERUM PM No comment enter ed. Ordering Provid er: AMARIS DE JESUS Report Released Date/Time: May 09, 2022 09:33 AM Reporting Lab: [facility] [address] [facility] [address] Performing Lab: [facility] [address] [facility] [address] VANCOMYCIN (PEAK) 24.2 20.0-40.0 May 09, 2022 11:19 [facility] FINGERSTICK GLUCOSE Speci men Type: BLOOD AM Comment: Mark casillas Nurse Notified Ordering Provid er: CODIE LEON Report Released Date/Time: May 09, 2022 11:38 AM Reporting Lab: [facility] [address] [facility] [address] Performing Lab: [facility] [address] FINGERSTICK GLUCOSE 240 H 70-100 May 09, 2022 08:13 [facility] VANCOMYCIN (TROUGH) Speci men Type: SERUM AM No comment enter ed. Ordering Provid er: AMARIS DE JESUS Report Released Date/Time: May 08, 2022 11:14 AM Reporting Lab: [facility] [address] Performing Lab: [facility] [address] VANCOMYCIN (TROUGH) 16.1 H 10.0-15.0 May 09, 2022 05:33 AM [facility] CBC & DIFF Specim en Type: BLOOD Comment: Automa nola Differential Performed Ordering Provid er: CODIE LEON Report Released Date/Time: May 08, 2022 05:27 PM Reporting Lab: [facility] [address] Performing Lab: [facility] [address] WBC 14.92 H 4.0-11.0 RBC 3.41 L [...] GRAN 0.16 H 0-0.1 May 09, 2022 [facility] COMPREHENSIVE METABOLIC Spec imen Type: PLASMA 05:32 AM PANEL+MG No comment enter ed. Ordering Provid er: MALINI,CODIE E Report Released Date/Time: May 08, 2022 05:27 PM Reporting Lab: [facility] [address] [facility] [address] Performing Lab: [facility] [address] [facility] [address] [facility] [address] CREATININE 1.2 0.7-1.2 UREA NITROGEN 25 8-26 [...] 59 L >60 May 09, 2022 05:16 [facility] FINGERSTICK GLUCOSE Speci men Type: BLOOD AM Comment: Mark casillas Nurse Notified Ordering Provid er: CODIE LEON Report Released Date/Time: May 09, 2022 07:27 AM Reporting Lab: [facility] [address] Performing Lab: [facility] [address] FINGERSTICK GLUCOSE 295 H 70-100 May 08, 2022 09:32 PM [facility] EXTRA MINT TUBE Specim en Type: PLASMA No comment enter ed. Ordering Provid er: MD ESTEBAN Report Released Date/Time: May 08, 2022 09:32 PM Reporting Lab: [facility] [address] Performing Lab: [facility] [address] [facility] [address] EXTRA MINT TUBE RECEIVED May 08, 2022 09:32 PM [facility] EXTRA PURPLE TUBE Spec imen Type: BLOOD No comment enter ed. Ordering Provid er: MD ESTEBAN Report Released Date/Time: May 08, 2022 09:32 PM Reporting Lab: [facility] [address] [facility] [address] Performing Lab: [facility] [address] EXTRA PURPLE TUBE RECEIVED May 08, 2022 09:32 [facility] EXTRA GOLD GEL TUBE Speci men Type: SERUM PM No comment enter ed. Ordering Provid er: MD ESTEBAN Report Released Date/Time: May 08, 2022 09:32 PM Reporting Lab: [facility] [address] [facility] [address] Performing Lab: [facility] [address] [facility] [address] EXTRA GOLD GEL TUBE RECEIVED May 08, 2022 09:32 PM [facility] EXTRA BLUE TUBE Specim en Type: PLASMA No comment enter ed. Ordering Provid er: MD ESTEBAN Report Released Date/Time: May 08, 2022 09:32 PM Reporting Lab: [facility] [address] [facility] [address] Performing Lab: [facility] [address] [facility] [address] EXTRA BLUE TUBE RECEIVED May 08, 2022 09:32 PM [facility] EXTRA BRASWELL TUBE Specim en Type: PLASMA No comment enter ed. Ordering Provid er: MD ESTEBAN Report Released Date/Time: May 08, 2022 09:37 PM Reporting Lab: [facility] [address] [facility] [address] Performing Lab: [facility] [address] [facility] [address] EXTRA BRASWELL TUBE RECEIVED May 08, 2022 09:32 PM [facility] LACTIC ACID Specim en Type: PLASMA No comment enter ed. Ordering Provid er: OG DIAL Report Released Date/Time: May 08, 2022 09:49 PM Reporting Lab: [facility] [address] [facility] [address] Performing Lab: [facility] [address] [facility] [address] LACTIC ACID 2.5 H 0.5-2.2 May 08, 2022 09:32 PM [facility] BNP Specim en Type: PLASMA No comment enter ed. Ordering Provid er: OG DIAL Report Released Date/Time: May 08, 2022 09:50 PM Reporting Lab: [facility] [address] [facility] [address] Performing Lab: [facility] [address] [facility] [address] BNP 897 H <99 May 08, 2022 09:32 PM [facility] BLOOD GASES Specim en Type: VENOUS BLOOD Comment: O2 THE RAPY = 3L PM Ordering Provid er: OG DIAL Report Released Date/Time: May 08, 2022 09:50 PM Reporting Lab: [facility] [address] [facility] [address] Performing Lab: [facility] [address] PH 7.36 7.33-7.43 PCO2 47 41-51 BICARBONATE 24.4 21.0-30.0 PO2 31 L 35-40 OXYGEN SATURATION 54.7 L 70.0-75.0 PH(TEMP CORRECTED) 7.37 7.33-7.43 PCO2(TEMP CORRECTED) 46 41-51 PO2(TEMP CORRECTED) 31 L 35-40 PATIENT TEMPERATURE 36.7 May 08, 2022 09:32 PM [facility] CBC Specim en Type: BLOOD No comment enter ed. Ordering Provid er: OG DIAL Report Released Date/Time: May 08, 2022 09:50 PM Reporting Lab: [facility] [address] Performing Lab: [facility] [address] WBC 18.54 H 4.0-11.0 RBC 3.68 L 4.6-6.2 HGB 11.5 L 13.5-17.9 HCT 35.1 L 41-54 MCV 95.4 80-100 MCH 31.3 27-33 MCHC 32.8 32.0-37.5 PLT 221 150-400 MPV 11.1 H 7.4-10.4 RDW 14.9 H 11.5-14.5 May 08, 2022 [facility] COMPREHENSIVE METABOLIC Spec imen Type: PLASMA 09:32 PM PANEL+MG No comment enter ed. Ordering Provid er: OG DIAL Report Released Date/Time: May 08, 2022 09:50 PM Reporting Lab: [facility] [address] Performing Lab: [facility] [address] CREATININE 1.3 H 0.7-1.2 UREA NITROGEN 26 [...] 54 L >60 May 08, 2022 08:27 [facility] FINGERSTICK GLUCOSE Speci men Type: BLOOD PM Comment: Mark casillas Nurse Notified Ordering Provid er: CODIE LEON Report Released Date/Time: May 08, 2022 08:55 PM Reporting Lab: [facility] [address] [facility] [address] Performing Lab: [facility] [address] [facility] [address] FINGERSTICK GLUCOSE 272 H 70-100 May 08, 2022 06:56 [facility] FINGERSTICK GLUCOSE Speci men Type: BLOOD PM Comment: Mark casillas Ordering Provid er: CODIE LEON Report Released Date/Time: May 08, 2022 07:08 PM Reporting Lab: [facility] [address] [facility] [address] Performing Lab: [facility] [address] [facility] [address] FINGERSTICK GLUCOSE 262 H 70-100 May 08, 2022 04:50 [facility] FINGERSTICK GLUCOSE Speci men Type: BLOOD PM Comment: Nurse Notified Ordering Provid er: CODIE LEON Report Released Date/Time: May 08, 2022 05:14 PM Reporting Lab: [facility] [address] [facility] [address] Performing Lab: [facility] [address] [facility] [address] FINGERSTICK GLUCOSE 330 H 70-100 May 08, 2022 11:21 [facility] FINGERSTICK GLUCOSE Speci men Type: BLOOD AM Comment: Mark casillas Nurse Notified Ordering Provid er: CODIE LEON Report Released Date/Time: May 08, 2022 11:51 AM Reporting Lab: [facility] [address] [facility] [address] Performing Lab: [facility] [address] [facility] [address] FINGERSTICK GLUCOSE 231 H 70-100 May 08, 2022 07:25 AM [facility] CBC & DIFF Specim en Type: BLOOD Comment: Automa nola Differential Performed Ordering Provid er: BETO AYALA Report Released Date/Time: May 07, 2022 12:28 PM Reporting Lab: [facility] [address] Performing Lab: [facility] [address] WBC 16.29 H 4.0-11.0 RBC 3.38 L [...] GRAN 0.26 H 0-0.1 May 08, 2022 [facility] PROTHROMBIN TIME/INR Specime n Type: PLASMA 07:25 AM No comment enter ed. Ordering Provid er: BETO AYALA Report Released Date/Time: May 07, 2022 12:28 PM Reporting Lab: [facility] [address] Performing Lab: [facility] [address] .INR 1.2 H 0.8-1.1 .PT 14.2 H 9.4-12.5 May 08, 2022 [facility] COMPREHENSIVE METABOLIC Spec imen Type: PLASMA 07:25 AM PANEL+MG No comment enter ed. Ordering Provid er: BETO AYALA Report Released Date/Time: May 07, 2022 12:28 PM Reporting Lab: [facility] [address] Performing Lab: [facility] [address] CREATININE 1.1 0.7-1.2 UREA NITROGEN 27 H [...] EGFR(CKD-EPI) 65 >60 May 08, 2022 06:53 [facility] FINGERSTICK GLUCOSE Speci men Type: BLOOD AM Comment: Mark casillas Ordering Provid er: CODIE LEON Report Released Date/Time: May 08, 2022 07:18 AM Reporting Lab: [facility] [address] [facility] [address] Performing Lab: [facility] [address] [facility] [address] FINGERSTICK GLUCOSE 276 H 70-100 May 07, 2022 08:36 [facility] FINGERSTICK GLUCOSE Speci men Type: BLOOD PM Comment: Nurse Notified Ordering Provid er: CODIE LEON Report Released Date/Time: May 08, 2022 12:29 AM Reporting Lab: [facility] [address] [facility] [address] Performing Lab: [facility] [address] [facility] [address] FINGERSTICK GLUCOSE 282 H 70-100 May 07, 2022 07:04 PM [facility] LACTIC ACID Specim en Type: PLASMA No comment enter ed. Ordering Provid er: BETO AYALA Report Released Date/Time: May 07, 2022 06:28 PM Reporting Lab: [facility] [address] [facility] [address] Performing Lab: [facility] [address] [facility] [address] LACTIC ACID 2.0 0.5-2.2 May 07, 2022 04:46 [facility] FINGERSTICK GLUCOSE Speci men Type: BLOOD PM Comment: Nurse Notified Ordering Provid er: BETO AYALA Report Released Date/Time: May 07, 2022 05:00 PM Reporting Lab: [facility] [address] [facility] [address] Performing Lab: [facility] [address] [facility] [address] FINGERSTICK GLUCOSE 274 H 70-100 May 07, 2022 12:47 [facility] FINGERSTICK GLUCOSE Speci men Type: BLOOD PM Comment: Mark casillas Nurse Notified Ordering Provid er: BETO AYALA Report Released Date/Time: May 07, 2022 05:32 PM Reporting Lab: [facility] [address] [facility] [address] Performing Lab: [facility] [address] [facility] [address] FINGERSTICK GLUCOSE 309 H 70-100 May 07, 2022 06:35 [facility] FINGERSTICK GLUCOSE Speci men Type: BLOOD AM Comment: Mark casillas Nurse Notified Ordering Provid er: GAYLA DOMINGUEZ Report Released Date/Time: May 07, 2022 06:46 AM Reporting Lab: [facility] [address] [facility] [address] Performing Lab: [facility] [address] [facility] [address] FINGERSTICK GLUCOSE 352 H 70-100 May 07, 2022 06:15 AM [facility] ALBUMIN Specim en Type: PLASMA No comment enter ed. Ordering Provid er: GAYLA DOMINGUEZ Report Released Date/Time: May 06, 2022 06:33 PM Reporting Lab: [facility] [address] [facility] [address] Performing Lab: [facility] [address] [facility] [address] ALBUMIN 3.0 L 3.5-5.2 May 07, 2022 [facility] COMPREHENSIVE METABOLIC Spec imen Type: PLASMA 06:15 AM PANEL+MG No comment enter ed. Ordering Provid er: GAYLA DOMINGUEZ Report Released Date/Time: May 06, 2022 09:11 PM Reporting Lab: [facility] [address] [facility] [address] Performing Lab: [facility] [address] [facility] [address] CREATININE 1.2 0.7-1.2 UREA NITROGEN 25 8-26 [...] L >60 May 07, 2022 06:15 AM [facility] CBC & DIFF Specim en Type: BLOOD Comment: Manual Differential Performed Ordering Provid er: GAYLA DOMINGUEZ Report Released Date/Time: May 06, 2022 09:11 PM Reporting Lab: [facility] [address] [facility] [address] Performing Lab: [facility] [address] [facility] [address] WBC 20.25 H 4.0-11.0 RBC 3.54 L [...] NORMOCYTIC, NORMOCHROMIC May 07, 2022 12:19 AM [facility] LACTIC ACID Specim en Type: PLASMA No comment enter ed. Ordering Provid er: GAYLA DOMINGUEZ Report Released Date/Time: May 06, 2022 07:13 PM Reporting Lab: [facility] [address] [facility] [address] Performing Lab: [facility] [address] [facility] [address] LACTIC ACID 2.7 H 0.5-2.2 May 06, 2022 10:45 [facility] FINGERSTICK GLUCOSE Speci men Type: BLOOD PM Comment: Mark casillas Nurse Notified Ordering Provid er: GAYLA DOMINGUEZ Report Released Date/Time: May 07, 2022 12:08 AM Reporting Lab: [facility] [address] [facility] [address] Performing Lab: [facility] [address] [facility] [address] FINGERSTICK GLUCOSE 320 H 70-100 May 06, 2022 06:53 [facility] MRSA SURVL NARES Specimen Type: NARES PM DNA No comment enter ed. Ordering Provid er: GAYLA DOMINGUEZ Report Released Date/Time: May 06, 2022 06:33 PM Reporting Lab: [facility] [address] [facility] [address] Performing Lab: [facility] [address] [facility] [address] MRSA SURVL NARES DNA POSITIVE HH Negative May 06, 2022 06:51 PM [facility] LACTIC ACID Specim en Type: PLASMA No comment enter ed. Ordering Provid er: GAYLA DOMINGUEZ Report Released Date/Time: May 06, 2022 06:04 PM Reporting Lab: [facility] [address] [facility] [address] Performing Lab: [facility] [address] [facility] [address] LACTIC ACID 3.1 H 0.5-2.2 May 06, 2022 06:51 [facility] CARDIAC TROPONIN I Specim en Type: PLASMA PM No comment enter ed. Ordering Provid er: GAYLA DOMINGUEZ Report Released Date/Time: May 06, 2022 06:05 PM Reporting Lab: [facility] [address] [facility] [address] Performing Lab: [facility] [address] [facility] [address] CARDIAC TROPONIN I <0.028 <0.028 May 06, 2022 06:51 [facility] EXTRA GOLD GEL TUBE Speci men Type: SERUM PM No comment enter ed. Ordering Provid er: GAYLA DOMINGUEZ Report Released Date/Time: May 06, 2022 06:52 PM Reporting Lab: [facility] [address] [facility] [address] Performing Lab: [facility] [address] [facility] [address] EXTRA GOLD GEL TUBE RECEIVED May 06, 2022 06:51 [facility] C-REACTIVE PROTEIN Specim en Type: PLASMA PM No comment enter ed. Ordering Provid er: GAYLA DOMINGUEZ Report Released Date/Time: May 06, 2022 09:29 PM Reporting Lab: [facility] [address] [facility] [address] Performing Lab: [facility] [address] C-REACTIVE PROTEIN 392.40 H <5.00 May 06, 2022 10:51 AM [facility] URINALYSIS Specim en Type: URINE No comment enter ed. Ordering Provid er: MODESTA VILLANUEVA Report Released Date/Time: May 06, 2022 10:11 AM Reporting Lab: [facility] [address] Performing Lab: [facility] [address] URINE COLOR YELLOW SPECIFIC GRAVITY 1.020 1.003-1.035 [...] ESTERASE 500 NEGATIVE May 06, 2022 10:24 [facility] COVID-19 DIAGNOSTIC Speci men Type: NASOPHARYNGEAL AM PANEL (CEPHEID) Comment: Cephei d GeneXpert (618) Ordering Provid er: MODESTA VILLANUEVA Report Released Date/Time: May 06, 2022 10:11 AM Reporting Lab: [facility] [address] Performing Lab: [facility] [address] COVID-19 (CEPHEID) Not Detected Not Dete cted May 06, 2022 10:20 AM [facility] POC ABG/LACTATE Specim en Type: VENOUS BLOOD No comment enter ed. Ordering Provid er: MODESTA VILLANUEVA Report Released Date/Time: May 06, 2022 10:22 AM Reporting Lab: [facility] [address] Performing Lab: [facility] [address] POC PH 7.410 7.31-7.41 POC PCO2 28.9 L 35.00-45.00 POC PO2 82 H 35.0-40.0 POC TCO2 19 L 24.0-29.0 POC HCO3 18.3 L 23.0-28.0 POC BE ECT -6 L -2 POC SO2 96 H 70-75 POC LACTATE 3.62 0.90-1.70 May 06, 2022 10:00 AM [facility] PHOSPHORUS Specim en Type: PLASMA No comment enter ed. Ordering Provid er: MODESTA VILLANUEVA Report Released Date/Time: May 06, 2022 10:11 AM Reporting Lab: [facility] [address] [facility] [address] Performing Lab: [facility] [address] [facility] [address] PHOSPHORUS 2.5 2.3-4.7 May 06, 2022 10:00 [facility] ACT PART THROMBO TIME Spe cimen Type: PLASMA AM No comment enter ed. Ordering Provid er: MODESTA VILLANUEVA Report Released Date/Time: May 06, 2022 10:11 AM Reporting Lab: [facility] [address] [facility] [address] Performing Lab: [facility] [address] [facility] [address] APTT 37.8 H 25.1-36.5 May 06, 2022 10:00 [facility] PROTHROMBIN TIME/INR Spec imen Type: PLASMA AM No comment enter ed. Ordering Provid er: MODESTA VILLANUEVA Report Released Date/Time: May 06, 2022 10:11 AM Reporting Lab: [facility] [address] [facility] [address] Performing Lab: [facility] [address] [facility] [address] .INR 2.5 H 0.8-1.1 .PT 29.2 H 9.4-12.5 May 06, 2022 10:00 [facility] CARDIAC TROPONIN I Specim en Type: PLASMA AM Comment: Critic al Value Reported To: BROOKS COTE 05-06-2022 @1053 BY MBB. Critical value report confirmed. Ordering Provid er: MODESTA VILLANUEVA Report Released Date/Time: May 06, 2022 10:11 AM Reporting Lab: [facility] [address] [facility] [address] Performing Lab: [facility] [address] [facility] [address] CARDIAC TROPONIN I 0.035 HH <0.028 May 06, 2022 10:00 AM [facility] PROCALCITONIN Specim en Type: PLASMA No comment enter ed. Ordering Provid er: MODESTA VILLANUEVA Report Released Date/Time: May 06, 2022 10:11 AM Reporting Lab: [facility] [address] Performing Lab: [facility] [address] PROCALCITONIN 22.29 H <0.09 May 06, 2022 [facility] COMPREHENSIVE METABOLIC Spec imen Type: PLASMA 10:00 AM PANEL+MG Comment: Manual Differential Performed Ordering Provid er: MODESTA VILLANUEVA Report Released Date/Time: May 06, 2022 10:11 AM Reporting Lab: [facility] [address] Performing Lab: [facility] [address] CREATININE 1.3 H 0.7-1.2 UREA NITROGEN 25 [...] L >60 May 06, 2022 10:00 AM [facility] CBC & DIFF Specim en Type: BLOOD Comment: Manual Differential Performed Ordering Provid er: MODESTA VILLANUEVA Report Released Date/Time: May 06, 2022 10:11 AM Reporting Lab: [facility] [address] Performing Lab: [facility] [address] WBC 18.82 H 4.0-11.0 RBC 3.70 L [...] MORPHOLOGY PRESENT May 06, 2022 10:00 AM [facility] LIPASE Specim en Type: PLASMA No comment enter ed. Ordering Provid er: MODESTA VILLANUEVA Report Released Date/Time: May 06, 2022 10:11 AM Reporting Lab: [facility] [address] [facility] [address] Performing Lab: [facility] [address] [facility] [address] LIPASE <4 <60 May 06, 2022 10:00 [facility] EXTRA GOLD GEL TUBE Speci men Type: SERUM AM No comment enter ed. Ordering Provid er: LINNEA RAND Report Released Date/Time: May 06, 2022 10:25 AM Reporting Lab: [facility] [address] [facility] [address] Performing Lab: [facility] [address] [facility] [address] EXTRA GOLD GEL TUBE RECEIVED May 06, 2022 09:46 [facility] FINGERSTICK GLUCOSE Speci men Type: BLOOD AM Comment: Mark casillas Nurse Notified Ordering Provid er: MODESTA VILLANUEVA Report Released Date/Time: May 06, 2022 09:59 AM Reporting Lab: [facility] [address] [facility] [address] Performing Lab: [facility] [address] [facility] [address] FINGERSTICK GLUCOSE 369 H 70-100 Apr 30, 2022 09:17 AM [facility] CBC Specim en Type: BLOOD No comment enter ed. Ordering Provid er: BILL ROONEY Report Released Date/Time: Apr 30, 2022 08:21 AM Reporting Lab: [facility] [address] [facility] [address] Performing Lab: [facility] [address] [facility] [address] WBC 10.40 4.0-11.0 RBC 3.96 L 4.6-6.2 HGB 12.3 L 13.5-17.9 HCT 37.8 L 41-54 MCV 95.5 80-100 MCH 31.1 27-33 MCHC 32.5 32.0-37.5 PLT 286 150-400 MPV 10.1 7.4-10.4 RDW 14.6 H 11.5-14.5 Apr 30, 2022 [facility] BASIC METABOLIC Specimen Typ e: PLASMA 09:17 AM PANEL+MG No comment enter ed. Ordering Provid er: BILL ROONEY Report Released Date/Time: Apr 30, 2022 08:21 AM Reporting Lab: [facility] [address] Performing Lab: [facility] [address] CREATININE 1.2 0.7-1.2 UREA NITROGEN 26 8-26 [...] dy Source Pressure Rate Mass Index May 09 [facility] 11:10 [place] [facility] May 09 [facility] 07:49 [facility] [facility] May 09 [place] 2021 07:49 [place] [facility] May 09 [place] 2021 04:27 [place] [facility] May 09, 7 [place] 2021 09:39 [facility] Social History: Smoking Status (Most current) and Tobacco Use (All prior to encounter date) This section includes the most current, and the historical, smoking and tobacco-related health factors from the [place] facility where the Encounter took place.Current Smoking Status This section includes the most current smoking, or tobacco-related health factor, from the [place] facility where the Encounter took place. Date/Time Current Smoking Status Comment [facility] Feb 02, 2022 09:30 AM VA-TOBACCO NEVER USED [place] [facility] Tobacco Use History This section includes a history of the smoking, or tobacco- related health factors, that were collected on or before the date of the Encounter. The data comes from the [place] facility where the Encounter took place. Date/Time Smoking Status/Tobacco Use Comment [facility] ity Mar 22, 2021 07:45 AM VA-TOBACCO NEVER USED [place] [facility] Oct 02, 2019 10:02 AM VA-TOBACCO NEVER USED [place] [facility] May 21, 2018 09:05 AM [place] [facility] [...] this document. The data comes from all [facility]. Date Advance Directives Provider Source Apr 18, 2018 ADVANCE DIRECTIVE JOVONLARISSA [facility] Apr 18, 2018 ADVANCE DIRECTIVE DISCUSSION LARISSA SIGALA [facility] December 23, 2017 CLINICAL WARNING FARHAT SCHMID [facility] May 11, 2003 ADVANCE DIRECTIVE [...] 2022 09:46 CHEST 1 VIEW: SONJA OVALLES [facility] NELY EDDYMICHELE Rivera [id number] -1935 M Exm Date: MAY 11, 2022@09:46 Req Phys: CODIE LEON Loc: OP Unknown /05-13-2022@05:05 Img Loc: MAIN X-RAY Service: PRIMARY [facility] OFFICE (Case [id number] COMPLETE) CHEST 1 VIEW (RAD Detailed) CPT:74619 Proc Modifiers : PORTABLE EXAM Reason for [...] 11, 2022 Date Verified: MAY 11, 2022 [employer] E-Sig:/ES/SONJA OVALLES MD Report: CHEST 1 VIEW [...] Primary Interpreting Staff: SONJA OVALLES MD, RADIOLOGIST ([employer]) /CDC May 10, 2022 03:49 CT HEAD (P): RADIOLOGY,OUTSIDE [facility] PM LUISANA EDDY [id number] -1935 M SERVICE Exm Date: MAY 10, 2022@15:49 Req Phys: CODIE LEON Loc: OP Unknown /05-13-2022@05:05 Img Loc: CT IMAGING Service: PRIMARY [facility] OFFICE (Case [id number] COMPLETE) CT HEAD/BRAIN W/O CONTRAST (CT Detailed) CPT:67015 Reason for Study: CHANGE IN MENTAL STATUS Clinical History: CHANGE IN MENTAL STATUS. ORDER ADMINISTRATIVELY ENTERED FOLLOWING SYSTEM OUTAGE. Report Status: Verified Date Reported: MAY 10, 2022 Date Verified: MAY 10, 2022 [employer] E-Sig: Report: CT HEAD/BRAIN W/O CONTRAST [PRINTSET] [...] study. READING PHYSICIAN: Akash Mccoy M.D. [phone] 05/10/2022 17:35 PDT [facility] National Teleradiology Program [phone] (For Medical Practitioner Use Only ) Attention Patients / Veterans: If you have ques tions or concerns about these test results, please contact your o rdering provider or primary care team. Primary Interpreting Staff: RADIOLOGY,OUTSIDE SERVICE, Staff Physician / May 08, 2022 07:45 CT T-SPINE (P): RADIOLOGY,OUTSIDE [facility] PM LUISANA EDDY [id number] -1935 M SERVICE Exm Date: MAY 08, 2022@19:45 Req Phys: CODIE LEON Chantal Loc: OP Unknown /05-13-2022@05:05 Img Loc: CT IMAGING Service: PRIMARY CARE - MED OFFICE (Case [id number] COMPLETE) CT SPINE THORACIC W/O CONTR AST (CT Detailed) CPT:52006 Reason for Study: mrsa bacteremia, spinal surge ry - r/o abscess or discitis Clinical History: [place] IS NOT under investigation for COVID-19 or is COVID-19 negative Defer to radiologist for final CT protocol. Responsible provider name and phone number to n otify for critical findings if other than user placing the order a nd pager listed below: User placing orders pager: [phone] LAST 3: Collection DT Specimen Test Name [...] GFR (eGF 44 L Ref: >=60 Allergies: (Junction only) SIMVASTATIN (Feb 29, 2004) CEPHALEXIN (Mar 01, 2004) Report Status: Verified Date Reported: MAY 08, 2022 Date Verified: MAY 08, 2022 [employer] E-Sig: Report: CT SPINE THORACIC W/O CONTRAST [...] thoracic level. READING PHYSICIAN: Luisana Webb MD [phone] 05/08/2022 19:20 PDT [facility] Integrate Teleradiology Program [phone] (For Medical Practitioner Use Only ) Attention Patients / Veterans: If you have ques tions or concerns about these test results, please contact your o [facility] provider or primary care team. Primary Interpreting Staff: RADIOLOGY,OUTSIDE SERVICE, Staff Physician / May 08, 2022 04:48 CHEST 1 VIEW: RADIOLOGY,OUTSIDE [facility] PM LUISANA EDDY [id number] -1935 M SERVICE Exm Date: MAY 08, 2022@16:48 Req Phys: CODIE LEON Loc: OP Unknown /05-13-2022@05:05 Img Loc: MAIN X-RAY Service: PRIMARY CARE - MED OFFICE (Case [id number] COMPLETE) CHEST 1 VIEW (RAD Detailed) CPT:92959 Proc Modifiers : PORTABLE EXAM Reason for Study: dyspnea Clinical History: [place] IS NOT under investigation for COVID-19 or is COVID-19 negative acute worsening of dyspnea Responsible provider name and phone number to notify for critical findings if other than user placing the order and pager listed below: User placing orders pager: [phone] malini cell [phone] LAST CREATININE 1.1 (05/08/22) Report Status: Verified Date Reported: MAY 08, 2022 Date Verified: MAY 08, 2022 [employer] E-Sig: Report: CHEST 1 VIEW HISTORY: dyspnea COMPARISON: 05/06/2022 TECHNIQUE: Frontal view(s) of the chest, submit nola to the [place] National Teleradiology Program (NTP) for interp retation. FINDINGS: Reduced lung volumes. Progressive cardiomegaly, and vascular congestion as well as diffuse interstitial prom inence with probable small effusions. Impression: Expiratory exam with findings of CHF and mild e santa READING PHYSICIAN: Nghia Menjivar M.D. -[phone] 05/08/2022 18:57 EDT [facility] Integrate Teleradiology Program [phone] (For Medical Practitioner Use Only ) Attention Patients / Veterans: If you have ques tions or concerns about these test results, please contact your o rdering provider or primary care team. Primary Interpreting Staff: RADIOLOGY,OUTSIDE SERVICE, Staff Physician / May 07, 2022 10:29 CT HEAD (P): SHANI POLANCO [facility] AM LUISANA EDDY [id number] -1935 M Exm Date: MAY 07, 2022@10:29 Req Phys: BETO AYALA Pat Loc: OP Unknown/0 05-13-2022@05:05 Img Loc: CT IMAGING Service: PRIMARY CARE - MED OFFICE (Case [id number] COMPLETE) CT HEAD/BRAIN W/O CONTRAST ( CT Detailed) CPT:69297 Reason for Study: seizure noted at [facility] Clinical History: [place] IS NOT under investigation for COVID-19 or is COVID-19 negative Defer to radiologist for final CT protocol. Responsible provider name and phone number to n otify for critical findings if other than user placing the order a nd pager listed below: User placing orders pager: [phone] LAST 3: Collection DT Specimen Test Name [...] GFR (eGF 44 L Ref: >=60 Allergies: (Junction only) SIMVASTATIN (Feb 29, 2004) CEPHALEXIN (Mar 01, 2004) Report Status: Verified Date Reported: MAY 07, 2022 Date Verified: MAY 07, 2022 [employer] E-Sig:/ES/SHANI POLANCO MD Report: EXAM: CT HEAD/BRAIN W/O CONTRAST HISTORY: seizure noted at [facility] Reason for Study: seizure noted at O[facility] [place] IS NOT under investigation for COVID-19 or is COVID-19 negative Defer to radiologist for final CT prot ocol. Responsible provider name and phone number to notify for cr itical findings if other than user placing the order and pager lis nola below: User placing orders pager: [phone] LAST 3: Collecti on DT Specimen Test [...] Primary Interpreting Staff: SHANI POLANCO MD, RADIOLOGIST ([employer]) /Javed May 06, 2022 11:40 CHEST 1 VIEW: RADIOLOGY,OUTSIDE [facility] LUISANA EDDY [id number] -1935 M SERVICE Exm Date: MAY 06, 2022@11:40 Req Phys: MODESTA VILLANUEVA Loc: [facility] EMERGENCY DEPT WALK-IN (Re Im Loc: MAIN X-RAY Service: Unknown (Case [id number] COMPLETE) CHEST 1 VIEW (RAD Detailed) C PT:94225 Proc Modifiers : PORTABLE EXAM Reason for Study: fever, back pain Clinical History: Reason for Exam: Severe Sepsis Pathway to Evalu ate Volume Status and Source of Sepsis [place] IS under investigation (PUI) for COVID- 19 or is COVID-19+ 86 yo M with fever, back pain Responsible provi violeta name and phone number to notify for critical findings if other than user placing the order and pager listed below: User placing orders pager: [phone] LAST CREATININE 1.2 (04/30/22) Report Status: Verified Date Reported: MAY 06, 2022 Date Verified: MAY 06, 2022 [employer] E-Sig: Report: Technique: Frontal chest. No comparison Impression: Cardiac silhouette is mildly enlarged. There is mild pulmonary venous congestion. No definite pleural effusion . No pneumothorax seen. READING PHYSICIAN: Vern Donnelly M.D. -[phone] 05/06/2022 13:26 EDT [facility] National Teleradiology Program [phone] (For Medical Practitioner Use Only ) Attention Patients / Veterans: If you have ques tions or concerns about these test results, please [facility] or primary care team. Primary Interpreting Staff: RADIOLOGY,OUTSIDE SERVICE, Staff Physician / May 06, 2022 10:36 CT (AP) ABDOMEN/PELVIS (P): RADIOLOGY,OUTSIDE [facility] LUISANA EDDY [id number] 1935 M SERVICE Exm Date: MAY 06, 2022@10:36 Req Phys: MODESTA VILLANUEVA Loc: [facility] EMERGENCY DEPT WALK-IN (Re Img Loc: CT IMAGING Service: Unknown (Case [id number] COMPLETE) CT (AP) ABDOMEN/PELVIS W CONT RAST(CT Detailed) CPT:05491 Reason for Study: fever, back pain Clinical History: fever, back pain, ecchymosis left low back consideration for intra-abdominal process, aort ic changes, LS spine trauma, kidney inflammation, GI or obs truction [place] IS under investigation (PUI) for COVID- 19 or is COVID-19+ Defer to radiologist for final CT protocol. Please enter pertinent clinical history on the next page. Responsible provider name and phone number to n otify for critical findings if other than user placing the order a nd pager listed below: User placing orders pager: [phone] LAST 3: Collection DT Specimen Test Name [...] ESTIMATED GFR(eGF 44 L Ref: >=60 Allergies: (Junction only) SIMVASTATIN (Feb 29, 2004) CEPHALEXIN (Mar 01, 2004) To see allergies from all [place] locations click Re ports tab>Remote Data>All Available Sites>Clinical Reports>Aller gies. Report Status: Verified Date Reported: MAY 06, 2022 Date Verified: MAY 06, 2022 [employer] E-Sig: Report: Exam: CT (AP) ABDOMEN/PELVIS W [...] findings, above. READING PHYSICIAN: Eduin Donaldson M.D. -[phone] 05/06/2022 12:48 [facility] Integrate Teleradiology Program [phone] (For Medical Practitioner Use Only ) Attention Patients / Veterans: If you have ques tions or concerns about these test results, please contact your o rdering provider or primary care team. Primary Interpreting Staff: RADIOLOGY,OUTSIDE SERVICE, Staff Physician / May 06, 2022 10:35 CT HEAD/BRAIN W/O CONTRAST: RADIOLOGY,OUTSIDE [facility] NUNULUISANA [id number] -1935 M SERVICE Exm Date: MAY 06, 2022@10:35 Req Phys: MODESTA VILLANUEVA Loc: [facility] EMERGENCY DEPT WALK-IN (Re Img Loc: CT IMAGING Service: Unknown (Case 64 COMPLETE) CT HEAD/BRAIN W/O CONTRAST (C T Detailed) CPT:66382 Reason for Study: falls, blood thinner, AMS, se izure Clinical History: falls, blood thinner, AMS, seizure IS under investigation (PUI) for COVID- 19 or is COVID-19+ Defer to radiologist for final CT protocol. Responsible provider name and phone number to n otify for critical findings if other than user placing the order a nd pager listed below: User placing orders pager: [phone] LAST 3: Collection DT Specimen Test Name [...] ESTIMATED GFR(eGF 44 L Ref: >=60 Allergies: (Junction only) SIMVASTATIN (Feb 29, 2004) CEPHALEXIN (Mar 01, 2004) To see allergies from all [place] locations click Re ports tab>Remote Data>All Available Sites>Clinical Reports>Lashon king. Report Status: Verified Date Reported: MAY 06, 2022 Date Verified: MAY 06, 2022 [employer] E-Sig: Report: CT HEAD/BRAIN W/O CONTRAST Clinical [...] T findings. READING PHYSICIAN: Eduin Donaldson M.D. -[phone] 05/06/2022 12:30 [facility] National Teleradiology Program [phone] (For Medical Practitioner Use Only ) Attention Patients / Veterans: If you have ques tions or concerns about these test results, please contact your o [facility] provider or primary care team. Primary Interpreting Staff: RADIOLOGY,OUTSIDE SERVICE, Staff Physician / May 06, 2022 10:35 CT CERVICAL SPINE W/O CONTRAST: RADIOLOGY,OUT SIDE [facility] AM LUISANA EDDY [id number] -1935 M SERVICE Exm Date: MAY 06, 2022@10:35 Req Phys: MODESTA VILLANUEVA Loc: [facility] EMERGENCY DEPT WALK-IN (Re Img Loc: CT IMAGING Service: Unknown (Case 65 COMPLETE) CT CERVICAL SPINE W/O CONTRAS T (CT Detailed) CPT:26778 Reason for Study: falls, blood thinner, AMS, se izure Clinical History: falls, blood thinner, AMS, seizure [place] IS under investigation (PUI) for COVID- 19 or is COVID-19+ Defer to radiologist for final CT protocol. Responsible provider name and phone number to n otify for critical findings if other than user placing the order a nd pager listed below: User placing orders pager: [phone] LAST 3: Collection DT Specimen Test Name [...] ESTIMATED GFR(eGF 44 L Ref: >=60 Allergies: (Junction only) SIMVASTATIN (Feb 29, 2004) CEPHALEXIN (Mar 01, 2004) To see allergies from all [place] locations click Re ports tab>Remote Data>All Available Sites>Clinical Reports>Lashon gies. Report Status: Verified Date Reported: MAY 06, 2022 Date Verified: MAY 06, 2022 [employer] E-Sig: Report: CT CERVICAL SPINE W/O CONTRAST [...] findings, above. READING PHYSICIAN: Eduin Donaldson M.D. -[phone] 05/06/2022 12:33 [facility] National Teleradiology Program [phone] (For Medical Practitioner Use Only ) Attention [...] 09, 2022 05:30 AM LR MICROBIOLOGY REPORT: [place] [facility] [place] [facility] Reporting Lab: [facility] [CLIA# [id number]] [place] [address] Accession [UID]: [id number] [[id number]] Receiv ed: May 09, 2022@01:35 Collection sample: BLOOD Collection date: Apr 05:30 Provider: CODIE LEON Comment on specimen: LEFT ARM, RECEIVED 2 BLOOD CULTURE BOTTLES Test(s) ordered: CULTURE & SUSCEPTIBILITY...... 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 R TRIMETH/SULFA................. S TETRACYCLINE.................. S CLINDAMYCIN................... S RIFAMPIN...................... S VANCOMYCIN.................... S Bacteriology Remark(s): VANCOMYCIN SHAMIKA: <=0.5 ug/mL THIS REPORT IS FINAL =--=--=--=--=--=--=--=--=--=--=--=--=--= --=--=--=--=--=--=--=--=--=--=--=--=-- Performing Laboratory: Bacteriology Report Performed By: [facility] [CLIA# [id number]] [place] [address] May 08, 2022 03:23 PM LR MICROBIOLOGY REPORT: [facility] Reporting Lab: [facility] [CLIA# [id number]] [place] [address] Accession [UID]: [id number] [[id number]] Receiv ed: May 08, 2022@15:41 Collection sample: BLOOD Collection date: Apr 15:23 Provider: CODIE LEON Comment on specimen: LEFT ARM, RECEIVED 2 BLOOD CULTURE BOTTLES Test(s) ordered: CULTURE & SUSCEPTIBILITY...... completed: May 10, 2022 * BACTERIOLOGY FINAL REPORT => May 10, 2022 16:3 1 TECH CODE: [id number] CULTURE RESULTS: GROWTH SAME THAT OF ANOTHER CULTURE Comment: FOR SUSCEPTIBILITY REPORT SEE PREVIOUS POSITIVE SAME MB 22 [id number] ( 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 from Anaerobic bottle ) ( Recovered from Aerobic bottle ) Bacteriology Remark(s): THIS REPORT IS FINAL =--=--=--=--=--=--=--=--=--=--=--=--=--= --=--=--=--=--=--=--=--=--=--=--=--=-- Performing Laboratory: Bacteriology Report Performed By: [facility] [CLIA# [id number]] [place] [address] May 08, 2022 03:21 PM LR MICROBIOLOGY REPORT: [facility] Reporting Lab: [facility] [CLIA# [id number]] [place] [address] Accession [UID]: [id number] [[id number]] Receiv ed: May 08, 2022@15:40 Collection sample: BLOOD Collection date: Apr 15:21 Provider: CODIE LEON Comment on specimen: RT ARM, RECEIVED 2 BLOOD CU LTURE BOTTLES Test(s) ordered: CULTURE & SUSCEPTIBILITY...... completed: May 10, 2022 * BACTERIOLOGY FINAL REPORT => May 10, 2022 16:3 1 TECH CODE: [id number] CULTURE RESULTS: GROWTH SAME THAT OF ANOTHER CULTURE Comment: FOR SUSCEPTIBILITY REPORT SEE PREVIOUS POSITIVE SAME MB 22 [id number] ( 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 from Anaerobic bottle ) ( Recovered from Aerobic bottle ) Bacteriology Remark(s): THIS REPORT IS FINAL =--=--=--=--=--=--=--=--=--=--=--=--=--= --=--=--=--=--=--=--=--=--=--=--=--=-- Performing Laboratory: Bacteriology Report Performed By: [facility] [CLIA# [id number]] [place] [address] May 07, 2022 05:30 AM LR MICROBIOLOGY REPORT: [facility] Reporting Lab: [facility] [CLIA# [id number]] [place] [address] Accession [UID]: [id number] [[id number]] Receiv ed: May 07, 2022@01:35 Collection sample: [...] REPORT SEE PREVIOUS POSITIVE SAME MB 22 [id number] ( 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 from Aerobic bottle ) ( Recovered from Anaerobic bottle ) Bacteriology Remark(s): THIS REPORT IS FINAL =--=--=--=--=--=--=--=--=--=--=--=--=--= --=--=--=--=--=--=--=--=--=--=--=--=-- Performing Laboratory: Bacteriology Report Performed By: [facility] [CLIA# [id number]] [place] [address] May 06, 2022 10:51 AM LR MICROBIOLOGY REPORT: [facility] Reporting Lab: [facility] [CLIA# [id number]] [place] [address] Accession [UID]: [id number] [[id number]] Receiv ed: May 06, 2022@11:32 Collection sample: [...] --=--=--=--=--=--=--=--=--=--=--=--=-- Performing Laboratory: Bacteriology Report Performed By: [facility] [CLIA# [id number]] [place] [address] May 06, 2022 10:34 AM LR MICROBIOLOGY REPORT: [facility] Reporting Lab: [facility] [CLIA# [id number]] [place] [address] Accession [UID]: [id number] [[id number]] Receiv ed: May 06, 2022@10:51 Collection sample: BLOOD Collection date: Apr 10:34 Provider: MODESTA VILLANUEVA Comment on specimen: RECEIVED [address] [facility] Test(s) ordered: CULTURE & SUSCEPTIBILITY...... completed: May 07, 2022 * BACTERIOLOGY FINAL REPORT => May 08, 2022 08:3 0 TECH CODE: [id number] CULTURE RESULTS: STAPHYLOCOCCUS AUREUS METHICILL IN RESISTANT [...] --=--=--=--=--=--=--=--=--=--=--=--=-- Performing Laboratory: Bacteriology Report Performed By: [facility] [CLIA# [id number]] [place] [address] May 06, 2022 10:00 AM LR MICROBIOLOGY REPORT: [facility] Reporting Lab: [facility] [CLIA# [id number]] [place] [address] Accession [UID]: [id number] [[id number]] Receiv ed: May 06, 2022@10:41 Collection sample: [...] SUSCEPTIBILITY REPORT SEE PREVIOUS POSITIVE SAME 22 [id number] ( 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 from Anaerobic bottle ) ( Recovered from Aerobic bottle ) Bacteriology Remark(s): THIS REPORT IS FINAL =--=--=--=--=--=--=--=--=--=--=--=--=--= --=--=--=--=--=--=--=--=--=--=--=--=-- Performing Laboratory: Bacteriology Report Performed By: [facility] [CLIA# [id number]] [place] [address]
--- OUTSIDE RECORDS SUMMARY | 2022-05-15 09:39 | XMS_ITS | Encounter Summary ---
:1935 Author Organization [facility] rs Address [address] [place] [address] Support Name Relationship Address Phone WADE LORENZO Unavailable [address] [place] [address] WADE LORENZO Unavailable [phone] [place] [address] ARACELI MARSHALL Unavailable [address] [place] [address] MARILIA MARSHALLA Unavailable [address] [place] [address] Insurance Providers: All historical and current Section Date Range: From patient's date of to the date document was created.This section includes the names of all active insurance providers for the patient. Insurance Type of Plan Start of End of Group Member [facility] Coverage Name Policy Policy Number ID Provider's Bales's Relationship Coverage Coverage Telephone Name to Policy Number Bales [place] M[place] Aug 19, [id number] Kristel [facility] (WNR) ADVANTAGE (WNR) 2016 8 [id number] [phone] [facility] 1 [place] MEDICARE M[place] Aug 19, [id number] Kristel [facility] (WNR) ADVANTAGE (WNR) 2016 8 [id number] [phone] [facility] 1 Selected Encounter This section includes the information on record at [place] for the Encounter. Date/Time Encounter Type Encounter Reason Provider Source Description May 09, 2022 [facility] ICD-10-CM Z51.81 GISELLE DE JESUS 03:06 PM ASSMT&MGMT Encounter for A B 11-20 therapeutic drug level monitoring with Provider Comments: Encounter for therapeutic drug level monitoring IHE Encounter Template Text not used by [place] Assessments - Encounter Diagnoses This section includes the primary and secondary diagnoses documented for the Encounter. 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 This section includes future appointments and future orders which are active, pending orscheduled.Future Appointments This section includes appointments that were scheduled to occur 6 months from the date of the Encounter, up to a maximum of 20 appointments. The data comes from all [place] treatment [facility]. Appointment Date/Time Appointment Type Appointment Facili ty Name May 11, 2022 06:15 PM AMBULATORY - NONE [facility] Jul 23, 2022 08:00 AM AMBULATORY - NEUROLOGY [facility] Active, Pending, and Scheduled Orders This section includes a listing of several types of active, pending, and scheduled orders, including clinic medications orders, diagnostic test orders, procedure orders and consult orders; where the start date of the order is 45 days before the date of the Encounter or 45 days after the date of the Encounter. The data comes from all [facility]. Test Date/Time Test Type Test Details Facility Name Apr 30, 2022 08:21 Laboratory - Chemistry URINALYSIS URINE WC ON CE [facility] AM Order Apr 30, 2022 08:21 Laboratory - CULTURE & SUSCEPTIBILITY [facility] AM Microbiology Order URINE May 06, 2022 12:00 Laboratory - Blood ABO/RH - LAB BLOOD [facility] AM Bank Order May 06, 2022 10:11 Laboratory - Blood TYPE & SCREEN - LAB [facility] AM Bank Order BLOOD May 06, 2022 10:27 Pharmacy [facility] AM Medication Order May 06, 2022 10:28 [facility] AM Infusion Order May 06, 2022 10:34 [facility] AM Infusion Order May 06, 2022 10:41 [facility] AM Infusion Order May 06, 2022 12:15 Pharmacy - [facility] PM Medication Order May 06, 2022 01:31 Pharmacy - [facility] PM Medication Order May 06, 2022 04:49 Pharmacy - [facility] PM Medication Order May 07, 2022 [...] 2022 09:38 Laboratory - Chemistry EOSINOPHIL SMEAR,URINE [facility] AM Order URINE WC ONCE May 11, 2022 09:38 Laboratory - Chemistry URINALYSIS URINE WC ON CE [facility] AM Order May 11, 2022 09:38 Laboratory - Chemistry FENA URINE WC ONCE [facility] AM Order Lab Results: [...] Reference Range Comment May 11, 2022 11:13 [facility] FINGERSTICK GLUCOSE Speci men Type: BLOOD AM Comment: Mark casillas Nurse Notified Ordering Provid er: CODIE LEON Report Released Date/Time: May 11, 2022 11:53 AM Reporting Lab: [facility] [address] [facility] [address] Performing Lab: [facility] [address] [facility] [address] FINGERSTICK GLUCOSE 367 H 70-100 May 11, 2022 07:05 AM [facility] CBC Specim en Type: BLOOD No comment enter ed. Ordering Provid er: OG DIAL Report Released Date/Time: May 11, 2022 04:46 AM Reporting Lab: [facility] [address] [facility] [address] Performing Lab: [facility] [address] [facility] [address] WBC 15.93 H 4.0-11.0 RBC 3.60 L 4.6-6.2 HGB 11.2 L 13.5-17.9 HCT 35.3 L 41-54 MCV 98.1 80-100 MCH 31.1 27-33 MCHC 31.7 L 32.0-37.5 PLT 231 150-400 MPV 11.2 H 7.4-10.4 RDW 15.2 H 11.5-14.5 May 11, 2022 07:05 AM [facility] CK,TOTAL Specim en Type: PLASMA No comment enter ed. Ordering Provid er: CODIE LEON Report Released Date/Time: May 11, 2022 09:08 AM Reporting Lab: [facility] [address] [facility] [address] Performing Lab: [facility] [address] [facility] [address] CK,TOTAL 16 L 39-208 May 11, 2022 07:05 AM [facility] BNP Specim en Type: PLASMA No comment enter ed. Ordering Provid er: CODIE LEON Report Released Date/Time: May 11, 2022 09:15 AM Reporting Lab: [facility] [address] [facility] [address] Performing Lab: [facility] [address] [facility] [address] BNP 59 <99 May 11, 2022 07:05 [facility] BASIC METABOLIC Specimen Type: PLASMA AM PANEL+MG No comment enter ed. Ordering Provid er: OG DIAL Report Released Date/Time: May 11, 2022 04:46 AM Reporting Lab: [facility] [address] [facility] [address] Performing Lab: [facility] [address] [facility] [address] CREATININE 1.6 H 0.7-1.2 UREA NITROGEN 28 H 8-26 GLUCOSE 396 H 70-100 SODIUM 150 H 136-145 POTASSIUM 3.7 3.5-5.1 CHLORIDE 120 H 98-107 CO2 23 22-29 CALCIUM 8.4 8.4-10.2 MAGNESIUM 2.1 1.6-2.6 ANION GAP 7 5-15 CREAT EGFR(CKD-EPI) 42 L >60 May 11, 2022 07:05 [facility] LIVER FUNCTION TESTS Spec imen Type: PLASMA AM No comment enter ed. Ordering Provid er: CODIE LEON Report Released Date/Time: May 11, 2022 09:08 AM Reporting Lab: [facility] [address] [facility] [address] Performing Lab: [facility] [address] [facility] [address] BILIRUBIN, TOTAL 1.6 H 0.2-1.2 ALKALINE PHOSPHATASE 102 40-150 ALT/SGPT 42 <55 AST/SGOT 30 <34 GAMMA GTP 52 <64 DIR. BILIRUBIN 1.2 H <0.5 May 11, 2022 06:14 [facility] FINGERSTICK GLUCOSE Speci men Type: BLOOD AM Comment: Mark casillas Nurse Notified Ordering Provid er: CODIE LEON Report Released Date/Time: May 11, 2022 06:42 AM Reporting Lab: [facility] [address] [facility] [address] Performing Lab: [facility] [address] [facility] [address] FINGERSTICK GLUCOSE 345 H 70-100 May 11, 2022 02:24 [facility] FINGERSTICK GLUCOSE Speci men Type: BLOOD AM Comment: Mark casillas Ordering Provid er: CODIE LEON Report Released Date/Time: May 11, 2022 02:44 AM Reporting Lab: [facility] [address] [facility] [address] Performing Lab: [facility] [address] [facility] [address] FINGERSTICK GLUCOSE 375 H 70-100 May 10, 2022 08:38 [facility] FINGERSTICK GLUCOSE Speci men Type: BLOOD PM Comment: Mark casillas Ordering Provid er: CODIE LEON Report Released Date/Time: May 11, 2022 12:31 AM Reporting Lab: [facility] [address] [facility] [address] Performing Lab: [facility] [address] [facility] [address] FINGERSTICK GLUCOSE 346 H 70-100 May 10, 2022 05:05 [facility] FINGERSTICK GLUCOSE Speci men Type: BLOOD PM Comment: Mark casillas Nurse Notified Ordering Provid er: CODIE LEON Report Released Date/Time: May 10, 2022 11:50 PM Reporting Lab: [facility] [address] [facility] [address] Performing Lab: [facility] [address] [facility] [address] FINGERSTICK GLUCOSE 245 H 70-100 May 10, 2022 02:00 [facility] VANCOMYCIN (TROUGH) Speci men Type: PLASMA PM No comment enter ed. Ordering Provid er: CODIE LEON Report Released Date/Time: May 11, 2022 01:34 AM Reporting Lab: [facility] [address] Performing Lab: [facility] [address] VANCOMYCIN (TROUGH) 31.8 H 10.0-15.0 May 10, 2022 [facility] BASIC METABOLIC Specimen Typ e: PLASMA 02:00 PM PANEL+MG No comment enter ed. Ordering Provid er: CODIE LEON Report Released Date/Time: May 11, 2022 01:34 AM Reporting Lab: [facility] [address] Performing Lab: [facility] [address] CREATININE 1.1 .7-1.2 UREA NITROGEN 22 8-26 GLUCOSE 279 H 70-100 SODIUM 150 H 136-145 POTASSIUM 3.2 L 3.5-5.1 CHLORIDE 116 H 98-107 CO2 23 22-29 CALCIUM 8.5 8.4-10.2 MAGNESIUM 2.0 1.6-2.6 ANION GAP 11 5-15 CREAT EGFR(CKD-EPI) 65 >60 May 10, 2022 01:20 PM [facility] CBC & DIFF Specim en Type: BLOOD Comment: Automa nola Differential Performed Ordering Provid er: MD ESTEBAN Report Released Date/Time: May 10, 2022 08:52 PM Reporting Lab: [facility] [address] Performing Lab: [facility] [address] WBC 16.24 H 4.0-11.0 RBC 3.76 L [...] 0.28 H 0-0.1 May 10, 2022 11:07 [facility] FINGERSTICK GLUCOSE Speci men Type: BLOOD AM Comment: Mark casillas Nurse Notified Ordering Provid er: CODIE LEON Report Released Date/Time: May 11, 2022 12:31 AM Reporting Lab: [facility] [address] [facility] [address] Performing Lab: [facility] [address] [facility] [address] FINGERSTICK GLUCOSE 253 H 70-100 May 10, 2022 06:16 [facility] FINGERSTICK GLUCOSE Speci men Type: BLOOD AM Comment: Mark casillas Nurse Notified Ordering Provid er: CODIE LEON Report Released Date/Time: May 10, 2022 11:50 PM Reporting Lab: [facility] [address] [facility] [address] Performing Lab: [facility] [address] [facility] [address] FINGERSTICK GLUCOSE 271 H 70-100 May 09, 2022 09:07 [facility] FINGERSTICK GLUCOSE Speci men Type: BLOOD PM Comment: Mark casillas Ordering Provid er: CODIE LEON Report Released Date/Time: May 10, 2022 11:50 PM Reporting Lab: [facility] [address] [facility] [address] Performing Lab: [facility] [address] [facility] [address] FINGERSTICK GLUCOSE 209 H 70-100 May 09, 2022 05:33 [facility] FINGERSTICK GLUCOSE Speci men Type: BLOOD PM Comment: Mark Silva Notified Ordering Provid er: CODIE LEON Report Released Date/Time: May 09, 2022 05:53 PM Reporting Lab: [facility] [address] [facility] [address] Performing Lab: [facility] [address] [facility] [address] FINGERSTICK GLUCOSE 251 H 70-100 May 09, 2022 02:09 [facility] VANCOMYCIN (PEAK) Specime n Type: SERUM PM No comment enter ed. Ordering Provid er: AMARIS DE JESUS Report Released Date/Time: May 09, 2022 09:33 AM Reporting Lab: [facility] [address] [facility] [address] Performing Lab: [facility] [address] [facility] [address] VANCOMYCIN (PEAK) 24.2 20.0-40.0 May 09, 2022 11:19 [facility] FINGERSTICK GLUCOSE Speci men Type: BLOOD AM Comment: Mark casillas Nurse Notified Ordering Provid er: CODIE LEON Report Released Date/Time: May 09, 2022 11:38 AM Reporting Lab: [facility] [address] Performing Lab: [facility] [address] FINGERSTICK GLUCOSE 240 H 70-100 May 09, 2022 08:13 [facility] VANCOMYCIN (TROUGH) Speci men Type: SERUM AM No comment enter ed. Ordering Provid er: AMARIS DE JESUS Report Released Date/Time: May 08, 2022 11:14 AM Reporting Lab: [facility] [address] [facility] [address] Performing Lab: [facility] [address] [facility] [address] VANCOMYCIN (TROUGH) 16.1 H 10.0-15.0 May 09, 2022 05:33 AM [facility] CBC & DIFF Specim en Type: BLOOD Comment: Automa nola Differential Performed Ordering Provid er: CODIE LEON Report Released Date/Time: May 08, 2022 05:27 PM Reporting Lab: [facility] [address] [facility] [address] Performing Lab: [facility] [address] [facility] [address] WBC 14.92 H 4.0-11.0 RBC 3.41 L [...] GRAN 0.16 H 0-0.1 May 09, 2022 [facility] COMPREHENSIVE METABOLIC Spec imen Type: PLASMA 05:32 AM PANEL+MG No comment enter ed. Ordering Provid er: CODIE LEON Report Released Date/Time: May 08, 2022 05:27 PM Reporting Lab: [facility] [address] Performing Lab: [facility] [address] CREATININE 1.2 0.7-1.2 UREA NITROGEN 25 8-26 [...] 59 L >60 May 09, 2022 05:16 [facility] FINGERSTICK GLUCOSE Speci men Type: BLOOD AM Comment: Mark casillas Nurse Notified Ordering Provid er: CODIE LEON Report Released Date/Time: May 09, 2022 07:27 AM Reporting Lab: [facility] [address] Performing Lab: [facility] [address] FINGERSTICK GLUCOSE 295 H 70-100 May 08, 2022 09:32 PM [facility] EXTRA MINT TUBE Specim en Type: PLASMA No comment enter ed. Ordering Provid er: MD ESTEBAN Report Released Date/Time: May 08, 2022 09:32 PM Reporting Lab: [facility] [address] Performing Lab: [facility] [address] [facility] [address] EXTRA MINT TUBE RECEIVED May 08, 2022 09:32 PM [facility] EXTRA PURPLE TUBE Spec imen Type: BLOOD No comment enter ed. Ordering Provid er: MD ESTEBAN Report Released Date/Time: May 08, 2022 09:32 PM Reporting Lab: [facility] [address] [facility] [address] Performing Lab: [facility] [address] [facility] [address] EXTRA PURPLE TUBE RECEIVED May 08, 2022 09:32 PM [facility] EXTRA BLUE TUBE Specim en Type: PLASMA No comment enter ed. Ordering Provid er: MD ESTEBAN Report Released Date/Time: May 08, 2022 09:32 PM Reporting Lab: [facility] [address] [facility] [address] Performing Lab: [facility] [address] [facility] [address] EXTRA BLUE TUBE RECEIVED May 08, 2022 09:32 [facility] EXTRA GOLD GEL TUBE Speci men Type: SERUM PM No comment enter ed. Ordering Provid er: MD ESTEBAN Report Released Date/Time: May 08, 2022 09:32 PM Reporting Lab: [facility] [address] [facility] [address] Performing Lab: [facility] [address] [address] EXTRA GOLD GEL TUBE RECEIVED May 08, 2022 09:32 PM [facility] EXTRA BRASWELL TUBE Specim en Type: PLASMA No comment enter ed. Ordering Provid er: MD ESTEBAN Report Released Date/Time: May 08, 2022 09:37 PM Reporting Lab: [facility] [address] [facility] [address] Performing Lab: [facility] [address] [address] EXTRA BRASWELL TUBE RECEIVED May 08, 2022 09:32 PM [facility] LACTIC ACID Specim en Type: PLASMA No comment enter ed. Ordering Provid er: OG DIAL Report Released Date/Time: May 08, 2022 09:49 PM Reporting Lab: [facility] [address] [facility] [address] Performing Lab: [facility] [address] [address] LACTIC ACID 2.5 H 0.5-2.2 May 08, 2022 09:32 PM [facility] BNP Specim en Type: PLASMA No comment enter ed. Ordering Provid er: OG DIAL Report Released Date/Time: May 08, 2022 09:50 PM Reporting Lab: [facility] [address] [facility] [address] Performing Lab: [facility] [address] BNP 897 H <99 May 08, 2022 09:32 PM [facility] BLOOD GASES Specim en Type: VENOUS BLOOD Comment: O2 THE RAPY = 3L PM Ordering Provid er: OG DIAL Report Released Date/Time: May 08, 2022 09:50 PM Reporting Lab: [facility] [facility] [address] Performing Lab: [facility] [address] [facility] [address] PH 7.36 7.33-7.43 PCO2 47 41-51 BICARBONATE 24.4 21.0-30.0 PO2 31 L 35-40 OXYGEN SATURATION 54.7 L 70.0-75.0 PH(TEMP CORRECTED) 7.37 7.33-7.43 PCO2(TEMP CORRECTED) 46 41-51 PO2(TEMP CORRECTED) 31 L 35-40 PATIENT TEMPERATURE 36.7 May 08, 2022 09:32 PM [facility] CBC Specim en Type: BLOOD No comment enter ed. Ordering Provid er: OG DIAL Report Released Date/Time: May 08, 2022 09:50 PM Reporting Lab: [facility] [address] [address] [facility] [address] Performing Lab: [facility] [address] WBC 18.54 H 4.0-11.0 RBC 3.68 L 4.6-6.2 HGB 11.5 L 13.5-17.9 HCT 35.1 L 41-54 MCV 95.4 80-100 MCH 31.3 27-33 MCHC 32.8 32.0-37.5 PLT 221 150-400 MPV 11.1 H 7.4-10.4 RDW 14.9 H 11.5-14.5 May 08, 2022 [facility] COMPREHENSIVE METABOLIC Spec imen Type: PLASMA 09:32 PM PANEL+MG No comment enter ed. Ordering Provid er: OG DIAL Report Released Date/Time: May 08, 2022 09:50 PM Reporting Lab: [facility] [address] Performing Lab: [facility] [address] [facility] [address] CREATININE 1.3 H 0.7-1.2 UREA NITROGEN 26 [...] 54 L >60 May 08, 2022 08:27 [facility] FINGERSTICK GLUCOSE Speci men Type: BLOOD PM Comment: Mark casillas Nurse Notified Ordering Provid er: CODIE LEON Report Released Date/Time: May 08, 2022 08:55 PM Reporting Lab: [facility] [address] [facility] [address] Performing Lab: [facility] [address] [address] FINGERSTICK GLUCOSE 272 H 70-100 May 08, 2022 06:56 [facility] FINGERSTICK GLUCOSE Speci men Type: BLOOD PM Comment: Mark casillas Ordering Provid er: CODIE LEON Report Released Date/Time: May 08, 2022 07:08 PM Reporting Lab: [facility] [address] [facility] [address] Performing Lab: [facility] [address] FINGERSTICK GLUCOSE 262 H 70-100 May 08, 2022 04:50 [facility] FINGERSTICK GLUCOSE Speci men Type: BLOOD PM Comment: Nurse Notified Ordering Provid er: CODIE LEON Report Released Date/Time: May 08, 2022 05:14 PM Reporting Lab: [facility] [address] [facility] [address] Performing Lab: [facility] [address] [facility] [address] FINGERSTICK GLUCOSE 330 H 70-100 May 08, 2022 11:21 [facility] FINGERSTICK GLUCOSE Speci men Type: BLOOD AM Comment: Mark casillas Nurse Notified Ordering Provid er: CODIE LEON Report Released Date/Time: May 08, 2022 11:51 AM Reporting Lab: [facility] [address] [facility] [address] Performing Lab: [facility] [address] [facility] [address] FINGERSTICK GLUCOSE 231 H 70-100 May 08, 2022 07:25 AM [facility] CBC & DIFF Specim en Type: BLOOD Comment: Automa nola Differential Performed Ordering Provid er: BETO AYALA Report Released Date/Time: May 07, 2022 12:28 PM Reporting Lab: [facility] [address] [facility] [address] Performing Lab: [facility] [address] [facility] [address] WBC 16.29 H 4.0-11.0 RBC 3.38 L [...] GRAN 0.26 H 0-0.1 May 08, 2022 [facility] PROTHROMBIN TIME/INR Specime n Type: PLASMA 07:25 AM No comment enter ed. Ordering Provid er: BETO AYALA Report Released Date/Time: May 07, 2022 12:28 PM Reporting Lab: [facility] [address] [facility] [address] Performing Lab: [facility] [address] [facility] [address] .INR 1.2 H 0.8-1.1 .PT 14.2 H 9.4-12.5 May 08, 2022 [facility] COMPREHENSIVE METABOLIC Spec imen Type: PLASMA 07:25 AM PANEL+MG No comment enter ed. Ordering Provid er: BETO AYALA Report Released Date/Time: May 07, 2022 12:28 PM Reporting Lab: [facility] [address] [facility] [address] Performing Lab: [facility] [address] [facility] [address] CREATININE 1.1 0.7-1.2 UREA NITROGEN 27 H [...] EGFR(CKD-EPI) 65 >60 May 08, 2022 06:53 [facility] FINGERSTICK GLUCOSE Speci men Type: BLOOD AM Comment: Save R esel Ordering Provid er: CODIE LEON Report Released Date/Time: May 08, 2022 07:18 AM Reporting Lab: [facility] [address] [facility] [address] Performing Lab: [facility] [address] FINGERSTICK GLUCOSE 276 H 70-100 May 07, 2022 08:36 [facility] FINGERSTICK GLUCOSE Speci men Type: BLOOD PM Comment: Nurse Notified Ordering Provid er: CODIE LEON Report Released Date/Time: May 08, 2022 12:29 AM Reporting Lab: [facility] [address] [facility] [address] Performing Lab: [facility] [address] [facility] [address] FINGERSTICK GLUCOSE 282 H 70-100 May 07, 2022 07:04 PM [facility] LACTIC ACID Specim en Type: PLASMA No comment enter ed. Ordering Provid er: BETO AYALA Report Released Date/Time: May 07, 2022 06:28 PM Reporting Lab: [facility] [address] [facility] [address] Performing Lab: [facility] [address] [facility] [address] LACTIC ACID 2.0 0.5-2.2 May 07, 2022 04:46 [facility] FINGERSTICK GLUCOSE Speci men Type: BLOOD PM Comment: Nurse Notified Ordering Provid er: BETO AYALA Report Released Date/Time: May 07, 2022 05:00 PM Reporting Lab: [facility] [address] [facility] [address] Performing Lab: [facility] [address] [facility] [address] FINGERSTICK GLUCOSE 274 H 70-100 May 07, 2022 12:47 [facility] FINGERSTICK GLUCOSE Speci men Type: BLOOD PM Comment: Mark casillas Nurse Notified Ordering Provid er: BETO AYALA Report Released Date/Time: May 07, 2022 05:32 PM Reporting Lab: [facility] [address] [facility] [address] Performing Lab: [facility] [address] [facility] [address] FINGERSTICK GLUCOSE 309 H 70-100 May 07, 2022 06:35 [facility] FINGERSTICK GLUCOSE Speci men Type: BLOOD AM Comment: Mark casillas Nurse Notified Ordering Provid er: GAYLA DOMINGUEZ Report Released Date/Time: May 07, 2022 06:46 AM Reporting Lab: [facility] [address] [facility] [address] Performing Lab: [facility] [address] [facility] [address] FINGERSTICK GLUCOSE 352 H 70-100 May 07, 2022 06:15 AM [facility] ALBUMIN Specim en Type: PLASMA No comment enter ed. Ordering Provid er: GAYLA DOMINGUEZ Report Released Date/Time: May 06, 2022 06:33 PM Reporting Lab: [facility] [address] [facility] [address] Performing Lab: [facility] [address] [facility] [address] ALBUMIN 3.0 L 3.5-5.2 May 07, 2022 [facility] COMPREHENSIVE METABOLIC Spec imen Type: PLASMA 06:15 AM PANEL+MG No comment enter ed. Ordering Provid er: GAYLA DOMINGUEZ Report Released Date/Time: May 06, 2022 09:11 PM Reporting Lab: [facility] [address] [facility] [address] Performing Lab: [facility] [address] CREATININE 1.2 0.7-1.2 UREA NITROGEN 25 8-26 [...] L >60 May 07, 2022 06:15 AM [facility] CBC & DIFF Specim en Type: BLOOD Comment: Manual Differential Performed Ordering Provid er: GAYLA DOMINGUEZ Report Released Date/Time: May 06, 2022 09:11 PM Reporting Lab: [facility] [address] [facility] [address] Performing Lab: [facility] [address] [facility] [address] WBC 20.25 H 4.0-11.0 RBC 3.54 L [...] NORMOCYTIC, NORMOCHROMIC May 07, 2022 12:19 AM [facility] LACTIC ACID Specim en Type: PLASMA No comment enter ed. Ordering Provid er: GAYLA DOMINGUEZ Report Released Date/Time: May 06, 2022 07:13 PM Reporting Lab: [facility] [address] [facility] [address] Performing Lab: [facility] [address] [facility] [address] LACTIC ACID 2.7 H 0.5-2.2 May 06, 2022 10:45 [facility] FINGERSTICK GLUCOSE Speci men Type: BLOOD PM Comment: Mark casillas Nurse Notified Ordering Provid er: GAYLA DOMINGUEZ Report Released Date/Time: May 07, 2022 12:08 AM Reporting Lab: [facility] [address] [facility] [address] Performing Lab: [facility] [address] [facility] [address] FINGERSTICK GLUCOSE 320 H 70-100 May 06, 2022 06:53 [facility] MRSA SURVL NARES Specimen Type: NARES PM DNA No comment enter ed. Ordering Provid er: GAYLA DOMINGUEZ Report Released Date/Time: May 06, 2022 06:33 PM Reporting Lab: [facility] [address] [facility] [address] Performing Lab: [facility] [address] [facility] [address] MRSA SURVL NARES DNA POSITIVE HH Negative May 06, 2022 06:51 PM [facility] LACTIC ACID Specim en Type: PLASMA No comment enter ed. Ordering Provid er: GAYLA DOMINGUEZ Report Released Date/Time: May 06, 2022 06:04 PM Reporting Lab: [facility] [address] [facility] [address] Performing Lab: [facility] [address] [facility] [address] LACTIC ACID 3.1 H 0.5-2.2 May 06, 2022 06:51 [facility] CARDIAC TROPONIN I Specim en Type: PLASMA PM No comment enter ed. Ordering Provid er: GAYLA DOMINGUEZ Report Released Date/Time: May 06, 2022 06:05 PM Reporting Lab: [facility] [address] [facility] [address] Performing Lab: [facility] [address] [facility] [address] CARDIAC TROPONIN I <0.028 <0.028 May 06, 2022 06:51 [facility] EXTRA GOLD GEL TUBE Speci men Type: SERUM PM No comment enter ed. Ordering Provid er: GAYLA DOMINGUEZ Report Released Date/Time: May 06, 2022 06:52 PM Reporting Lab: [facility] [address] [facility] [address] Performing Lab: [facility] [address] [facility] [address] EXTRA GOLD GEL TUBE RECEIVED May 06, 2022 06:51 [facility] C-REACTIVE PROTEIN Specim en Type: PLASMA PM No comment enter ed. Ordering Provid er: GAYLA DOMINGUEZ Report Released Date/Time: May 06, 2022 09:29 PM Reporting Lab: [facility] [address] [facility] [address] Performing Lab: [facility] [address] C-REACTIVE PROTEIN 392.40 H <5.00 May 06, 2022 10:51 AM [facility] URINALYSIS Specim en Type: URINE No comment enter ed. Ordering Provid er: MODESTA VILLANUEVA Report Released Date/Time: May 06, 2022 10:11 AM Reporting Lab: [facility] [address] Performing Lab: [facility] [address] URINE COLOR YELLOW SPECIFIC GRAVITY 1.020 1.003-1.035 [...] ESTERASE 500 NEGATIVE May 06, 2022 10:24 [facility] COVID-19 DIAGNOSTIC Speci men Type: NASOPHARYNGEAL AM PANEL (CEPHEID) Comment: Cephei d GeneXpert (618) Ordering Provid er: MODESTA VILLANUEVA Report Released Date/Time: May 06, 2022 10:11 AM Reporting Lab: [facility] [address] [facility] [address] Performing Lab: [facility] [address] COVID-19 (CEPHEID) Not Detected Not Dete cted May 06, 2022 10:20 AM [facility] POC ABG/LACTATE Specim en Type: VENOUS BLOOD No comment enter ed. Ordering Provid er: MODESTA VILLANUEVA Report Released Date/Time: May 06, 2022 10:22 AM Reporting Lab: [facility] [address] [facility] [address] Performing Lab: [facility] [address] [facility] [address] POC PH 7.410 7.31-7.41 POC PCO2 28.9 L 35.00-45.00 POC PO2 82 H 35.0-40.0 POC TCO2 19 L 24.0-29.0 POC HCO3 18.3 L 23.0-28.0 POC BE ECT -6 L -2 POC SO2 96 H 70-75 POC LACTATE 3.62 0.90-1.70 May 06, 2022 10:00 AM [facility] PHOSPHORUS Specim en Type: PLASMA No comment enter ed. Ordering Provid er: MODESTA VILLANUEVA Report Released Date/Time: May 06, 2022 10:11 AM Reporting Lab: [facility] [address] [facility] [address] Performing Lab: [facility] [address] [facility] [address] PHOSPHORUS 2.5 2.3-4.7 May 06, 2022 10:00 [facility] PROTHROMBIN TIME/INR Spec imen Type: PLASMA AM No comment enter ed. Ordering Provid er: MODESTA VILLANUEVA Report Released Date/Time: May 06, 2022 10:11 AM Reporting Lab: [facility] [address] [facility] [address] Performing Lab: [facility] [address] [facility] [address] .INR 2.5 H 0.8-1.1 .PT 29.2 H 9.4-12.5 May 06, 2022 10:00 [facility] CARDIAC TROPONIN I Specim en Type: PLASMA AM Comment: Critic al Value Reported To: BROOKS COTE 05-06-2022 @1053 BY MBB. Critical value report confirmed. Ordering Provid er: MODESTA VILLANUEVA Report Released Date/Time: May 06, 2022 10:11 AM Reporting Lab: [facility] [address] [facility] [address] Performing Lab: [facility] [address] [facility] [address] CARDIAC TROPONIN I 0.035 HH <0.028 May 06, 2022 10:00 [facility] ACT PART THROMBO TIME Spe cimen Type: PLASMA AM No comment enter ed. Ordering Provid er: MODESTA VILLANUEAV Report Released Date/Time: May 06, 2022 10:11 AM Reporting Lab: [facility] [address] [facility] [address] Performing Lab: [facility] [address] [facility] [address] APTT 37.8 H 25.1-36.5 May 06, 2022 10:00 AM [facility] PROCALCITONIN Specim en Type: PLASMA No comment enter ed. Ordering Provid er: MODESTA VILLANUEVA Report Released Date/Time: May 06, 2022 10:11 AM Reporting Lab: [facility] [address] [facility] [address] Performing Lab: [facility] [address] [facility] [address] PROCALCITONIN 22.29 H <0.09 May 06, 2022 10:00 AM [facility] CBC & DIFF Specim en Type: BLOOD Comment: Manual Differential Performed Ordering Provid er: MODESTA VILLANUEVA Report Released Date/Time: May 06, 2022 10:11 AM Reporting Lab: [facility] [address] [facility] [address] Performing Lab: [facility] [address] [facility] [address] WBC 18.82 H 4.0-11.0 RBC 3.70 L [...] MORPHOLOGY PRESENT May 06, 2022 10:00 AM [facility] LIPASE Specim en Type: PLASMA No comment enter ed. Ordering Provid er: MODESTA VILLANUEVA Report Released Date/Time: May 06, 2022 10:11 AM Reporting Lab: [facility] [address] [facility] [address] Performing Lab: [facility] [address] [facility] [address] LIPASE <4 <60 May 06, 2022 10:00 [facility] EXTRA GOLD GEL TUBE Speci men Type: SERUM AM No comment enter ed. Ordering Provid er: LINNEA RAND Report Released Date/Time: May 06, 2022 10:25 AM Reporting Lab: [facility] [address] [facility] [address] Performing Lab: [facility] [address] [facility] [address] EXTRA GOLD GEL TUBE RECEIVED May 06, 2022 [facility] COMPREHENSIVE METABOLIC Spec imen Type: PLASMA 10:00 AM PANEL+MG Comment: Manual Differential Performed Ordering Provid er: MODESTA VILLANUEVA Report Released Date/Time: May 06, 2022 10:11 AM Reporting Lab: [facility] [address] [facility] [address] Performing Lab: [facility] [address] [facility] [address] CREATININE 1.3 H 0.7-1.2 UREA NITROGEN 25 [...] 54 L >60 May 06, 2022 09:46 [facility] FINGERSTICK GLUCOSE Speci men Type: BLOOD AM Comment: Mark casillas Nurse Notified Ordering Provid er: MODSETA VILLANUEVA Report Released Date/Time: May 06, 2022 09:59 AM Reporting Lab: [facility] [address] [facility] [address] Performing Lab: [facility] [address] [facility] [address] FINGERSTICK GLUCOSE 369 H 70-100 Apr 30, 2022 09:17 AM [facility] CBC Specim en Type: BLOOD No comment enter ed. Ordering Provid er: BILL ROONEY Report Released Date/Time: Apr 30, 2022 08:21 AM Reporting Lab: [facility] [facility] [address] Performing Lab: [facility] [address] WBC 10.40 4.0-11.0 RBC 3.96 L 4.6-6.2 HGB 12.3 L 13.5-17.9 HCT 37.8 L 41-54 MCV 95.5 80-100 MCH 31.1 27-33 MCHC 32.5 32.0-37.5 PLT 286 150-400 MPV 10.1 7.4-10.4 RDW 14.6 H 11.5-14.5 Apr 30, 2022 [facility] BASIC METABOLIC Specimen Typ e: PLASMA 09:17 AM PANEL+MG No comment enter ed. Ordering Provid er: BILL ROONEY Report Released Date/Time: Apr 30, 2022 08:21 AM Reporting Lab: [facility] [address] Performing Lab: [facility] [address] CREATININE 1.2 0.7-1.2 UREA NITROGEN 26 8-26 [...] dy Source Pressure Rate Mass Index May 092021 11:10 [facility] May 092021 07:49 [facility] May 092021 07:49 [facility] May 092021 04:27 [facility] May 092021 09:39 [facility] Social History: Smoking Status (Most current) and [...] 09:30 AM VA-TOBACCO NEVER USED [facility] Tobacco Use History This section includes a history of the smoking, or tobacco- related health factors, that were collected on or before the date of the Encounter. The data comes from the [facility] where the Encounter took place. Date/Time Smoking Status/Tobacco Use Comment [facility] Mar 22, 2021 07:45 AM VA-TOBACCO NEVER USED [facility] Oct 02, 2019 10:02 AM VA-TOBACCO NEVER USED [facility] May 21, 2018 09:05 AM VA-TOBACCO NEVER USED [facility] December 25, 2017 06:14 PM INPT NO TOBACCO USE IN LAST 30 DAYS [facility] Oct 01, 2017 07:34 AM LIFETIME NON-TOBACCO USER [facility] Sep 28, 2016 08:44 AM LIFETIME NON-TOBACCO USER [facility] Oct 14, 2015 07:52 AM LIFETIME NON-TOBACCO USER [facility] Oct 11, 2014 07:59 AM LIFETIME NON-TOBACCO USER [facility] January 15, 2007 07:55 AM LIFETIME NON-TOBACCO USER [facility] Advance Directives: All historical and current Section Date Range: From patient's date of to the date document was created. This section includes ALL of a patient's completed or amended [place] Advance and Rescinded Directives. The entries below indicate that a directive exists for the patient, but an actual copy is not included with this document. The data comes from all [facility]. Date Advance Directives Provider Source Apr 18, 2018 ADVANCE DIRECTIVE LARISSA SIGALA [facility] Apr 18, 2018 ADVANCE DIRECTIVE DISCUSSION LARISSA SIGALA [facility] December 23, 2017 CLINICAL WARNING FARHAT SCHMID [facility] May 11, 2003 ADVANCE DIRECTIVE BERT CASILLAS [facility] Radiology Reports: +/- 30 days of [...] 1 VIEW: SONJA OVALLES V A [facility] [place] STERL[place] [id number] -1935 M Exm Date: MAY 11, 2022@09:46 Req Phys: MALINI,CODIE Camron Pat Loc: OP Unknown /05-13-2022@05:05 Img Loc: MAIN X-RAY Service: PRIMARY CARE - MED OFFICE (Case [id number] COMPLETE) CHEST 1 VIEW (RAD Detailed) CPT:15048 Proc Modifiers : PORTABLE EXAM Reason for Study: resp distress Clinical History: [place] IS NOT under investigation for COVID-19 or is COVID-19 negative Respiratory distress Responsible provider name and phone number to notify for critical findings if other than u ser placing the order and pager listed below: User placing orde rs pager: [phone] cell LAST CREATININE 1.6 H (05/11/22) Report Status: Verified Date Reported: MAY 11, 2022 Date Verified: MAY 11, 2022 Shampooer E-Sig:/ES/SONJA OVALLES MD Report: CHEST 1 VIEW [...] Primary Interpreting Staff: SONJA OVALLES MD, RADIOLOGIST (Shampooer) /CDC May 10, 2022 03:49 CT HEAD (P): RADIOLOGY,OUTSIDE [facility] PM LUISANA EDDY [id number] -1935 M SERVICE Exm Date: MAY 10, 2022@15:49 Req Phys: CODIE LEON Loc: OP Unknown /05-13-2022@05:05 Img Loc: CT IMAGING Service: PRIMARY CARE - MED OFFICE (Case [id number] COMPLETE) CT HEAD/BRAIN W/O CONTRAST (CT Detailed) CPT:41289 Reason for Study: CHANGE IN MENTAL STATUS Clinical History: CHANGE IN MENTAL STATUS. ORDER ADMINISTRATIVELY ENTERED FOLLOWING SYSTEM OUTAGE. Report Status: Verified Date Reported: MAY 10, 2022 Date Verified: MAY 10, 2022 Shampooer E-Sig: Report: CT HEAD/BRAIN W/O CONTRAST [PRINTSET] HISTORY: Change in mental status. COMPARISON: CT from 05/07/2022. TECHNIQUE: Contiguous axial CT images from the level of the skull base through the skull apex, with coronal and s agittal reformats, performed at the local [place] facility. 321 images were received by the [place] National Teleradiology Program (NTP) for interpretation. RADIATION [...] study. READING PHYSICIAN: Akash Mccoy M.D. -[phone] 05/10/2022 17:35 PDT [facility] National Teleradiology Program [phone] (For Medical Practitioner Use Only ) Attention Patients / Veterans: If you have ques tions or concerns about these test results, please contact your o rdering provider or primary care team. Primary Interpreting Staff: RADIOLOGY,OUTSIDE SERVICE, Staff Physician / May 08, 2022 07:45 CT T-SPINE (P): RADIOLOGY,OUTSIDE [facility] PM LUISANA EDDY [id number] -1935 M SERVICE Exm Date: MAY 08, 2022@19:45 Req Phys: CODIE LEON Loc: OP Unknown /05-13-2022@05:05 Img Loc: CT IMAGING Service: PRIMARY CARE - MED OFFICE (Case [id number] COMPLETE) CT SPINE THORACIC W/O CONTR AST (CT Detailed) CPT:58347 Reason for Study: mrsa bacteremia, spinal surge ry - r/o abscess or discitis Clinical History: [place] IS NOT under investigation for COVID-19 or is COVID-19 negative Defer to radiologist for final CT protocol. Responsible provider name and phone number to n otify for critical findings if other than user placing the order a nd pager listed below: User placing orders pager: [phone] LAST 3: Collection DT Specimen Test Name [...] GFR (eGF 44 L Ref: >=60 Allergies: ([place] only) SIMVASTATIN (Feb 29, 2004) CEPHALEXIN (Mar 01, 2004) Report Status: Verified Date Reported: MAY 08, 2022 Date Verified: MAY 08, 2022 Shampooer E-Sig: Report: CT SPINE THORACIC W/O CONTRAST [PRINTSET] HISTORY:MRSA bacteremia NUMBER OF IMAGES:1151 COMPARISON: Correlation with images from recent CT abdomen and pelvis May 06, 2022 TECHNIQUE: A non contrast CT of the thoracic sp ine was performed at the local [place]. Images were subsequently sent to [facility] [...] thoracic level. READING PHYSICIAN: Luisana Webb MD -[phone] 05/08/2022 19:20 PDT [facility] National Teleradiology Program [phone] (For Medical Practitioner Use Only ) Attention Patients / Veterans: If you have ques tions or concerns about these test results, please contact your [facility] provider or primary care team. Primary Interpreting Staff: RADIOLOGY,OUTSIDE SERVICE, Staff Physician / May 08, 2022 04:48 CHEST 1 VIEW: RADIOLOGY,OUTSIDE [facility] PM LUISANA EDDY [id number] -1935 M SERVICE Exm Date: MAY 08, 2022@16:48 Req Phys: CODIE LEON Loc: OP Unknown /05-13-2022@05:05 Img Loc: MAIN X-RAY Service: PRIMARY CARE - MED OFFICE (Case [id number] COMPLETE) CHEST 1 VIEW (RAD Detailed) CPT:56054 Proc Modifiers : PORTABLE EXAM Reason for Study: dyspnea Clinical History: [place] IS NOT under investigation for COVID-19 or is COVID-19 negative acute worsening of dyspnea Responsible provider name and phone number to notify for critical findings if other than user placing the order and pager listed below: User placing orders pager: [phone] malini cell [phone] LAST CREATININE 1.1 (05/08/22) Report Status: Verified Date Reported: MAY 08, 2022 Date Verified: MAY 08, 2022 Shampooer E-Sig: Report: CHEST 1 VIEW HISTORY: dyspnea COMPARISON: 05/06/2022 TECHNIQUE: Frontal view(s) of the chest, submit nola to the [place] National Teleradiology Program (NTP) for interp retation. FINDINGS: Reduced lung volumes. Progressive cardiomegaly, and vascular congestion as well as diffuse interstitial prom inence with probable small effusions. Impression: Expiratory exam with findings of CHF and mild e santa READING PHYSICIAN: Nghia Menjivar M.D. -[id number] 05/08/2022 18:57 EDT [facility] National Teleradiology Program [phone] (For Medical Practitioner Use Only ) Attention Patients / Veterans: If you have ques tions or concerns about these test results, please contact your o rdering provider or primary care team. Primary Interpreting Staff: RADIOLOGY,OUTSIDE SERVICE, Staff Physician / May 07, 2022 10:29 CT HEAD (P): SHANI POLANCO [facility] LUISANA EDDY [id number] -1935 M Exm Date: MAY 07, 2022@10:29 Req Phys: BETO AYALA Loc: OP Unknown/0 05-13-2022@05:05 Img Loc: CT IMAGING Service: PRIMARY CARE - MED OFFICE (Case [id number] COMPLETE) CT HEAD/BRAIN W/O CONTRAST ( CT Detailed) CPT:70079 Reason for Study: seizure noted at [facility] Clinical History: [place] IS NOT under investigation for COVID-19 or is COVID-19 negative Defer to radiologist for final CT protocol. Responsible provider name and phone number to n otify for critical findings if other than user placing the order a nd pager listed below: User placing orders pager: [phone] LAST 3: Collection DT Specimen Test Name [...] GFR (eGF 44 L Ref: >=60 Allergies: ([place] only) SIMVASTATIN (Feb 29, 2004) CEPHALEXIN (Mar 01, 2004) Report Status: Verified Date Reported: MAY 07, 2022 Date Verified: MAY 07, 2022 Shampooer E-Sig:/ES/SHANI POLANCO MD Report: EXAM: CT HEAD/BRAIN [...] lis nola below: User placing orders pager: [phone] LAST 3: Collecti on DT Specimen Test [...] Primary Interpreting Staff: SHANI POLANCO MD, RADIOLOGIST (Shampooer) /Javed May 06, 2022 11:40 CHEST 1 VIEW: RADIOLOGY,OUTSIDE [facility] AM LUISANA EDDY [id number] -1935 M SERVICE Exm Date: MAY 06, 2022@11:40 Req Phys: MODESTA VILLANUEVA Loc: [facility] EMERGENCY DEPT WALK-IN (Re Img Loc: MAIN X-RAY Service: Unknown (Case [id number] COMPLETE) CHEST 1 VIEW (RAD Detailed) C PT:95126 Proc Modifiers : PORTABLE EXAM Reason for [...] pager listed below: User placing orders pager: [phone] LAST CREATININE 1.2 (04/30/22) Report Status: Verified Date Reported: MAY 06, 2022 Date Verified: MAY 06, 2022 Shampooer E-Sig: Report: Technique: Frontal chest. No comparison Impression: Cardiac silhouette is mildly enlarged. There is mild pulmonary venous congestion. No definite pleural effusion . No pneumothorax seen. READING PHYSICIAN: Vern Donnelly M.D. -[id number] 07 05/06/2022 13:26 EDT [facility] National Teleradiology Program [phone] (For Medical Practitioner Use Only ) Attention Patients / Veterans: If you have ques tions or concerns about these test results, please contact your o [facility] provider or primary care team. Primary Interpreting Staff: RADIOLOGY,OUTSIDE SERVICE, Staff Physician / May 06, 2022 10:36 CT (AP) ABDOMEN/PELVIS (P): RADIOLOGY,OUTSIDE [facility] LUISANA EDDY [id number] -1935 M SERVICE Exm Date: MAY 06, 2022@10:36 Req Phys: MODESTA VILLANUEVA Loc: [facility] EMERGENCY DEPT WALK-IN (Re Img Loc: CT IMAGING Service: Unknown (Case 66 COMPLETE) CT (AP) ABDOMEN/PELVIS W CONT RAST(CT Detailed) CPT:57371 Reason for Study: fever, back pain Clinical [...] pager listed below: User placing orders pager: [phone] LAST 3: Collection DT Specimen Test Name [...] ESTIMATED GFR(eGF 44 L Ref: >=60 Allergies: ([place] only) SIMVASTATIN (Feb 29, 2004) CEPHALEXIN (Mar 01, 2004) To see allergies from all [place] locations click Re ports tab>Remote Data>All Available Sites>Clinical Reports>Aller gies. Report Status: Verified Date Reported: MAY 06, 2022 Date Verified: MAY 06, 2022 Shampooer E-Sig: Report: Exam: CT (AP) ABDOMEN/PELVIS W CONTRAST [PRINTS ET] Clinical History: fever, back pain Number of images: 918 Comparison: No priors available Technique: The study was protocoled and supervi sed at the local [place] facility. CT of the abdomen and pelvis was performed afte r the uneventful administration of iodinated contrast. Images we re received by the [place] National Teleradiology Program (NTP) for interpretation. Total [...] findings, above. READING PHYSICIAN: Eduin Donaldson M.D. -[phone] 05/06/2022 12:48 [facility] National Teleradiology Program [phone] (For Medical Practitioner Use Only ) Attention Patients / Veterans: If you have ques tions or concerns about these test results, please contact your o rdering provider or primary care team. Primary Interpreting Staff: RADIOLOGY,OUTSIDE SERVICE, Staff Physician / May 06, 2022 10:35 CT CERVICAL SPINE W/O CONTRAST: RADIOLOGY,OUT SIDE [facility] AM LUISANA EDDY [id number] -1935 M SERVICE Exm Date: MAY 06, 2022@10:35 Req Phys: MODESTA VILLANUEVA Loc: [facility] EMERGENCY DEPT WALK-IN (Re Img Loc: CT IMAGING Service: Unknown (Case 65 COMPLETE) CT CERVICAL SPINE W/O CONTRAS T (CT Detailed) CPT:72647 Reason for Study: falls, blood thinner, AMS, se izure Clinical History: falls, blood thinner, AMS, seizure [place] IS under investigation (PUI) for COVID- 19 or is COVID-19+ Defer to radiologist for final CT protocol. Responsible provider name and phone number to n otify for critical findings if other than user placing the order a nd pager listed below: User placing orders pager: [phone] LAST 3: Collection DT Specimen Test Name [...] ESTIMATED GFR(eGF 44 L Ref: >=60 Allergies: ([place] only) SIMVASTATIN (Feb 29, 2004) CEPHALEXIN (Mar 01, 2004) To see allergies from all [facility] locations click Re ports tab>Remote Data>All Available Sites>Clinical Reports>Aller gies. Report Status: Verified Date Reported: MAY 06, 2022 Date Verified: MAY 06, 2022 Shampooer E-Sig: Report: CT CERVICAL SPINE W/O CONTRAST [...] findings, above. READING PHYSICIAN: Eduin Donaldson M.D. -[phone] 05/06/2022 12:33 [facility] National Teleradiology Program [phone] (For Medical Practitioner Use Only ) Attention Patients / Veterans: If you have ques tions or concerns about these test results, please contact your o rdering provider or primary care team. Primary Interpreting Staff: RADIOLOGY,OUTSIDE SERVICE, Staff Physician / May 06, 2022 10:35 CT HEAD/BRAIN W/O CONTRAST: RADIOLOGY,OUTSIDE [facility] AM [place],LUISANA [id number] -1935 M SERVICE Exm Date: MAY 06, 2022@10:35 Req Phys: MODESTA VILLANUEVA Loc: [facility] EMERGENCY DEPT WALK-IN (Re Img Loc: CT IMAGING Service: Unknown (Case 64 COMPLETE) CT HEAD/BRAIN W/O CONTRAST (C T Detailed) CPT:59062 Reason for Study: falls, blood thinner, AMS, se izure Clinical History: falls, blood thinner, AMS, seizure [place] IS under investigation (PUI) for COVID- 19 or is COVID-19+ Defer to radiologist for final CT protocol. Responsible provider name and phone number to n otify for critical findings if other than user placing the order a nd pager listed below: User placing orders pager: [phone] LAST 3: Collection DT Specimen Test Name [...] ESTIMATED GFR(eGF 44 L Ref: >=60 Allergies: ([place] only) SIMVASTATIN (Feb 29, 2004) CEPHALEXIN (Mar 01, 2004) To see allergies from all [place] locations click Re ports tab>Remote Data>All Available Sites>Clinical Reports>Aller gies. Report Status: Verified Date Reported: MAY 06, 2022 Date Verified: MAY 06, 2022 Shampooer E-Sig: Report: CT HEAD/BRAIN W/O CONTRAST Clinical History: falls, blood thinner, AMS, se izure Number of Images: 532 Comparison: 03/12/2022 Technique: The study [facility] protocol[facility] of the head without contrast. I mages were subsequently received by the [place] National Telera diology Program (NTP) for interpretation. [...] T findings. READING PHYSICIAN: Eduin Donaldson M.D. -[phone] 05/06/2022 12:30 [facility] National Teleradiology Program [phone] (For Medical Practitioner Use Only ) Attention Patients / Veterans: If you have ques tions or concerns about these test results, please contact your [facility] provider or primary care team. Primary [...] comes from all [place] treatment facilities. Date/Time Pathology Report Provider Source May 09, 2022 05:30 AM LR MICROBIOLOGY REPORT: LEOBARDO MARTINEZ [facility] Reporting Lab: [facility] [CLIA# [id number]] [place] [address] Accession [UID]: [id number] [[id number]] Receiv ed: May 09, 2022@01:35 Collection sample: BLOOD Collection date: Apr 05:30 Provider: CODIE LEON Comment on specimen: LEFT ARM, RECEIVED 2 BLOOD CULTURE BOTTLES Test(s) ordered: CULTURE & SUSCEPTIBILITY...... 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 R TRIMETH/SULFA................. S TETRACYCLINE.................. S CLINDAMYCIN................... S RIFAMPIN...................... S VANCOMYCIN.................... S Bacteriology Remark(s): VANCOMYCIN SHAMIKA: <=0.5 ug/mL THIS REPORT IS FINAL =--=--=--=--=--=--=--=--=--=--=--=--=--= --=--=--=--=--=--=--=--=--=--=--=--=-- Performing Laboratory: Bacteriology Report Performed By: [facility] [CLIA# [id number]] [place] [address] May 08, 2022 03:23 PM LR MICROBIOLOGY REPORT: [facility] Reporting Lab: [facility] [CLIA# [id number]] [place] [address] Accession [UID]: [id number] [[id number]] Receiv ed: May 08, 2022@15:41 Collection sample: BLOOD Collection date: Apr 15:23 Provider: CODIE LEON Comment on specimen: LEFT ARM, RECEIVED 2 BLOOD CULTURE BOTTLES Test(s) ordered: CULTURE & SUSCEPTIBILITY...... completed: May 10, 2022 * BACTERIOLOGY FINAL REPORT => May 10, 2022 16:3 1 TECH CODE: [id number] CULTURE RESULTS: GROWTH SAME THAT OF ANOTHER CULTURE Comment: FOR SUSCEPTIBILITY REPORT SEE PREVIOUS POSITIVE SAME LUIS MIGUEL 22 [id number] ( 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 from Anaerobic bottle ) ( Recovered from Aerobic bottle ) Bacteriology Remark(s): THIS REPORT IS FINAL =--=--=--=--=--=--=--=--=--=--=--=--=--= --=--=--=--=--=--=--=--=--=--=--=--=-- Performing Laboratory: Bacteriology Report Performed By: [facility] [CLIA# [id number]] [place] [address] May 08, 2022 03:21 PM LR MICROBIOLOGY REPORT: [facility] Reporting Lab: [facility] [CLIA# [id number]] [place] [address] Accession [UID]: [id number] [[id number]] Receiv ed: May 08, 2022@15:40 Collection sample: BLOOD Collection date: Apr 15:21 Provider: CODIE LEON Comment on specimen: RT ARM, RECEIVED 2 BLOOD CU LTURE BOTTLES Test(s) ordered: CULTURE & SUSCEPTIBILITY...... completed: May 10, 2022 * BACTERIOLOGY FINAL REPORT => May 10, 2022 16:3 1 TECH CODE: [id number] CULTURE RESULTS: GROWTH SAME THAT OF ANOTHER CULTURE Comment: FOR SUSCEPTIBILITY REPORT SEE PREVIOUS POSITIVE SAME MB 22 [id number] ( 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 from Anaerobic bottle ) ( Recovered from Aerobic bottle ) Bacteriology Remark(s): THIS REPORT IS FINAL =--=--=--=--=--=--=--=--=--=--=--=--=--= --=--=--=--=--=--=--=--=--=--=--=--=-- Performing Laboratory: Bacteriology Report Performed By: [facility] [CLIA# [id number]] [place] [address] May 07, 2022 05:30 AM LR MICROBIOLOGY REPORT: [facility] Reporting Lab: [facility] [CLIA# [id number] 147] [place] [address] Accession [UID]: [id number] [[id number]] Receiv ed: May 07, 2022@01:35 Collection sample: [...] REPORT SEE PREVIOUS POSITIVE SAME MB 22 [id number] ( 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 from Aerobic bottle ) ( Recovered from Anaerobic bottle ) Bacteriology Remark(s): THIS REPORT IS FINAL =--=--=--=--=--=--=--=--=--=--=--=--=--= --=--=--=--=--=--=--=--=--=--=--=--=-- Performing Laboratory: Bacteriology Report Performed By: [facility] [CLIA# [id number]] [place] [address] May 06, 2022 10:51 AM LR MICROBIOLOGY REPORT: [facility] Reporting Lab: [facility] [CLIA# [id number]] [place] [address] Accession [UID]: [id number] [[id number]] Receiv ed: May 06, 2022@11:32 Collection sample: [...] --=--=--=--=--=--=--=--=--=--=--=--=-- Performing Laboratory: Bacteriology Report Performed By: [facility] [CLIA# [id number]] [place] [address] May 06, 2022 10:34 AM LR MICROBIOLOGY REPORT: [facility] Reporting Lab: [facility] [CLIA# [id number] 147] [place] [address] Accession [UID]: [id number] [[id number]] Receiv ed: May 06, 2022@10:51 Collection sample: BLOOD Collection date: Apr 10:34 Provider: MODESTA VILLANUEVA Comment on specimen: RECEIVED 2 BLOOD CULTURE [facility] Test(s) ordered: CULTURE & SUSCEPTIBILITY...... completed: May 07, 2022 * BACTERIOLOGY FINAL REPORT => May 08, 2022 08:3 0 TECH CODE: [id number] CULTURE RESULTS: STAPHYLOCOCCUS AUREUS METHICILL IN RESISTANT [...] --=--=--=--=--=--=--=--=--=--=--=--=-- Performing Laboratory: Bacteriology Report Performed By: [facility] [CLIA# [id number]] [place] [address] May 06, 2022 10:00 AM LR MICROBIOLOGY REPORT: [facility] Reporting Lab: [facility] [CLIA# [id number] 147] [place] [address] Accession [UID]: [id number] [[id number]] Receiv ed: May 06, 2022@10:41 Collection sample: [...] SUSCEPTIBILITY REPORT SEE PREVIOUS POSITIVE SAME 22 03025 ( 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 from Anaerobic bottle ) ( Recovered from Aerobic bottle ) Bacteriology Remark(s): THIS REPORT IS FINAL =--=--=--=--=--=--=--=--=--=--=--=--=--= --=--=--=--=--=--=--=--=--=--=--=--=-- Performing Laboratory: Bacteriology Report Performed By: [facility] [CLIA# [id number]] [place] [address] Encounter Notes: All associated encounter notes This section contains the clinical notes associated to the Encounter. Date/Time Encounter Note(s) Provider Source May 09, 2022 03:06 PM PHARMACY MEDICATION MGT NOTE: JANES DE JESUS [facility] LOCAL TITLE: PHARMACY PHARMACOKINETICS NOTE STANDARD TITLE: PHARMACY MEDICATION MGT NOTE DATE OF NOTE: MAY 09, 2022@15:06 ENTRY DATE: MAY 09, 2022@15:06:55 AUTHOR: AMARIS DE JESUS EXP COSIGNER: URGENCY: STATUS: COMPLETED VANCOMYCIN Dosing per Pharmacy Visit Type: Chart Review HISTORY: Diagnosis: MRSA bacteremia Current regimen: 1000mg every 12 hours (@-) started on 05/06/22. Current status of patient with respect to infec tion: - Afebrile - WBC trending down (14.92 today) - Blood cultures o 05/06 (x2) = MRSA (+) o 05/07 (x1) = MRSA (+) o 05/08 (x2) = GRAM POSITIVE COCCI IN PAIRS AND CLUSTERS o 05/09 (x1) --> pending - Urine culture 05/06 = MRSA (+) CREATININE 1.2 (05/09/22) No data available for: CYSTATIN C Prior to trough being drawn, vanco dose of 1000 mg given on 05/08/22 at 22:22 Vancomycin trough collected on 05/09/22 at 08:13 = 16.1 mcg/ml. Dose infused at 08:47 on 05/09/22 = 1000mg over 120 minutes. Vancomycin peak collected on 05/09/22 at 14:09 = 24.2 mcg/ml. Calculated half-life (t1/2)= 7.6 hours. Calculated Volume of distribution (Vd)= 42 L. Desired AUC to maximize efficacy and mi nimize likelihood of toxicity 400-600. ASSESSMENT: Interpretation of levels: appropriate to assess Renal function is assessed to be stable Based on the above levels, current regimen yield s a steady state peak of 32.9mg/L and steady state trough of 13.2mg/L for a calculated AUC of 524 mg*24hr/L. PLAN: - No change - Current vancomycin regimen yields AUC within t ypical guideline recommended parameters. Continue current regimen of 1000mg q12h (05-09). Time spent reviewing chart: 15 minutes Thank you. /ronni/ AMARIS DE JESUS PHARMACIST Signed: 05/09/2022 15:25
--- OUTSIDE RECORDS SUMMARY | 2022-05-15 09:40 | XMS_ITS | Encounter Summary ---
:1935 Author Organization [facility] Address [address] [place] [address] Support Name Relationship Address Phone WADE LORENZO Unavailable [address] [place] [address] WADE LORENZO Unavailable [address] [place] [address] MARILIA MARSHALLA Unavailable [address] [place] [address] GOGEORGE, ARACELI Unavailable [address] [place] [address] Insurance Providers: All historical and current Section [...] Chan [place] MCR Aug 19, [id number] Kristel [facility] (WNR) 2017 8 [id number] [phone] [facility] 1 [place]ARE M[place] Aug 19, [id number] Kristel [facility] (WNR[facility] ADVANTAGE (WNR) 2016 8 [id number] [phone] [facility] 1 Selected Encounter This section includes the information on record at [place] for the Encounter. Date/Time Encounter Type Encounter Description Reason Provider Source May 09, 2022 01:00 Inpatient Visit ADMIN PAT ACTIVTIES SYS TEM,CIS-ARK AM (MASNONCT) IHE Encounter Template Text not used by MT Plan of Treatment: Future Appointments (+ 6 months) and Future Tests (+/- 45 days) The Plan of Treatment section includes future care activities for the patient [facility]. This section includes future appointments and future orders which are active, pending orscheduled.Future Appointments This section includes appointments that were scheduled to occur 6 months from the date of the Encounter, up to a maximum of 20 appointments. The data comes from all [place] treatment facilities. Appointment Date/Time Appointment Type Appointment Facili ty Name May 11, 2022 06:15 PM AMBULATORY - NONE [facility] Jul 23, 2022 08:00 AM AMBULATORY - NEUROLOGY [facility] Active, Pending, and Scheduled Orders [...] The data comes from all [place] treatment [facility]. Test Date/Time Test Type Test Details Facility Name Apr 30, 2022 08:21 Laboratory - Chemistry URINALYSIS URINE WC ON CE [facility] AM Order Apr 30, 2022 08:21 Laboratory - CULTURE & SUSCEPTIBILITY [facility] AM Microbiology Order URINE WC May 06, 2022 12:00 Laboratory - Blood ABO/RH - LAB BLOOD [facility] AM Bank Order May 06, 2022 10:11 Laboratory - Blood TYPE & SCREEN - LAB [facility] AM Bank Order BLOOD WC May 06, 2022 10:27 Pharmacy [facility] AM Medication Order May 06, 2022 [...] 01:00 Laboratory - CULTURE & SUSCEPTIBILITY [facility] PM Microbiology Order BLOOD WC ONCE May 11, 2022 09:07 Laboratory - CULTURE & SUSCEPTIBILITY [facility] AM Microbiology Order BLOOD WC May 11, 2022 09:07 Laboratory - CULTURE & SUSCEPTIBILITY [facility] AM Microbiology Order BLOOD WC May 11, 2022 09:38 Laboratory - Chemistry EOSINOPHIL SMEAR,URINE [facility] AM Order URINE WC ONCE May 11, 2022 09:38 Laboratory - Chemistry URINALYSIS URINE WC ON CE [facility] AM Order May 11, 2022 09:38 Laboratory - Chemistry FENA URINE WC ONCE MIN [facility] AM Order Lab Results: +/- 30 [...] Reference Range Comment May 11, 2022 11:13 [facility] FINGERSTICK GLUCOSE Speci men Type: BLOOD AM Comment: Mark casillas Nurse Notified Ordering Provid er: CODIE LEON Report Released Date/Time: May 11, 2022 11:53 AM Reporting Lab: [facility] [address] [facility] [address] Performing Lab: [facility] [address] [facility] [address] FINGERSTICK GLUCOSE 367 H 70-100 May 11, 2022 07:05 [facility] LIVER FUNCTION TESTS Spec imen Type: PLASMA AM No comment enter ed. Ordering Provid er: CODIE LEON Report Released Date/Time: May 11, 2022 09:08 AM Reporting Lab: [facility] [address] [facility] [address] Performing Lab: [facility] [address] [facility] [address] BILIRUBIN, TOTAL 1.6 H 0.2-1.2 ALKALINE PHOSPHATASE 102 40-150 ALT/SGPT 42 <55 AST/SGOT 30 <34 GAMMA GTP 52 <64 DIR. BILIRUBIN 1.2 H <0.5 May 11, 2022 07:05 AM [facility] CBC Specim en Type: BLOOD No comment enter ed. Ordering Provid er: OG DIAL Report Released Date/Time: May 11, 2022 04:46 AM Reporting Lab: [facility] [address] [facility] [address] Performing Lab: [facility] [address] [facility] [address] WBC 15.93 H 4.0-11.0 RBC 3.60 L 4.6-6.2 HGB 11.2 L 13.5-17.9 HCT 35.3 L 41-54 MCV 98.1 80-100 MCH 31.1 27-33 MCHC 31.7 L 32.0-37.5 PLT 231 150-400 MPV 11.2 H 7.4-10.4 RDW 15.2 H 11.5-14.5 May 11, 2022 07:05 AM [facility] CK,TOTAL Specim en Type: PLASMA No comment enter ed. Ordering Provid er: CODIE LEON Report Released Date/Time: May 11, 2022 09:08 AM Reporting Lab: [facility] [address] [employer] [address] Performing Lab: [facility] [address] [employer] [address] CK,TOTAL 16 L 39-208 May 11, 2022 07:05 [facility] BASIC METABOLIC Specimen Type: PLASMA AM PANEL+MG No comment enter ed. Ordering Provid er: OG DIAL Report Released Date/Time: May 11, 2022 04:46 AM Reporting Lab: [facility] [address] [employer] [address] Performing Lab: [facility] [address] [employer] [address] CREATININE 1.6 H 0.7-1.2 UREA NITROGEN 28 H 8-26 GLUCOSE 396 H 70-100 SODIUM 150 H 136-145 POTASSIUM 3.7 3.5-5.1 CHLORIDE 120 H 98-107 CO2 23 22-29 CALCIUM 8.4 8.4-10.2 MAGNESIUM 2.1 1.6-2.6 ANION GAP 7 5-15 CREAT EGFR(CKD-EPI) 42 L >60 May 11, 2022 07:05 AM [facility] BNP Specim en Type: PLASMA No comment enter ed. Ordering Provid er: CODIE LEON Report Released Date/Time: May 11, 2022 09:15 AM Reporting Lab: [facility] [address] [employer] [address] Performing Lab: [facility] [address] [employer] [address] BNP 59 <99 May 11, 2022 06:14 [facility] FINGERSTICK GLUCOSE Speci men Type: BLOOD AM Comment: Mark casillas Nurse Notified Ordering Provid er: CODIE LEON Report Released Date/Time: May 11, 2022 06:42 AM Reporting Lab: [facility] [address] [facility] [address] Performing Lab: [facility] [address] [facility] [address] FINGERSTICK GLUCOSE 345 H 70-100 May 11, 2022 02:24 [facility] FINGERSTICK GLUCOSE Speci men Type: BLOOD AM Comment: Mark casillas Ordering Provid er: CODIE LEON Report Released Date/Time: May 11, 2022 02:44 AM Reporting Lab: [facility] [address] [facility] [address] Performing Lab: [facility] [address] [facility] [address] FINGERSTICK GLUCOSE 375 H 70-100 May 10, 2022 08:38 [facility] FINGERSTICK GLUCOSE Speci men Type: BLOOD PM Comment: Mark casillas Ordering Provid er: CODIE LEON Report Released Date/Time: May 11, 2022 12:31 AM Reporting Lab: [facility] [address] [facility] [address] Performing Lab: [facility] [address] [facility] [address] FINGERSTICK GLUCOSE 346 H 70-100 May 10, 2022 05:05 [facility] FINGERSTICK GLUCOSE Speci men Type: BLOOD PM Comment: Mark casillas Nurse Notified Ordering Provid er: CODIE LEON Report Released Date/Time: May 10, 2022 11:50 PM Reporting Lab: [facility] [address] [facility] [address] Performing Lab: [facility] [address] [facility] [address] FINGERSTICK GLUCOSE 245 H 70-100 May 10, 2022 02:00 [facility] VANCOMYCIN (TROUGH) Speci men Type: PLASMA PM No comment enter ed. Ordering Provid er: CODIE LEON Report Released Date/Time: May 11, 2022 01:34 AM Reporting Lab: [facility] [address] [facility] [address] Performing Lab: [facility] [address] [facility] [address] VANCOMYCIN (TROUGH) 31.8 H 10.0-15.0 May 10, 2022 [facility] BASIC METABOLIC Specimen Typ e: PLASMA 02:00 PM PANEL+MG No comment enter ed. Ordering Provid er: CODIE LEON Report Released Date/Time: May 11, 2022 01:34 AM Reporting Lab: [facility] [address] Performing Lab: [facility] [address] CREATININE 1.1 .7-1.2 UREA NITROGEN 22 8-26 GLUCOSE 279 H 70-100 SODIUM 150 H 136-145 POTASSIUM 3.2 L 3.5-5.1 CHLORIDE 116 H 98-107 CO2 23 22-29 CALCIUM 8.5 8.4-10.2 MAGNESIUM 2.0 1.6-2.6 ANION GAP 11 5-15 CREAT EGFR(CKD-EPI) 65 >60 May 10, 2022 01:20 PM [facility] CBC & DIFF Specim en Type: BLOOD Comment: Automa nola Differential Performed Ordering Provid er: MD ESTEBAN Report Released Date/Time: May 10, 2022 08:52 PM Reporting Lab: [facility] [address] Performing Lab: [facility] [address] WBC 16.24 H 4.0-11.0 RBC 3.76 L [...] 0.28 H 0-0.1 May 10, 2022 11:07 [facility] FINGERSTICK GLUCOSE Speci men Type: BLOOD AM Comment: Mark casillas Nurse Notified Ordering Provid er: CODIE LEON Report Released Date/Time: May 11, 2022 12:31 AM Reporting Lab: [facility] [address] [facility] [address] Performing Lab: [facility] [address] [facility] [address] FINGERSTICK GLUCOSE 253 H 70-100 May 10, 2022 06:16 [facility] FINGERSTICK GLUCOSE Speci men Type: BLOOD AM Comment: Mark casillas Nurse Notified Ordering Provid er: CODIE LEON Report Released Date/Time: May 10, 2022 11:50 PM Reporting Lab: [facility] [address] [facility] [address] Performing Lab: [facility] [address] [facility] [address] FINGERSTICK GLUCOSE 271 H 70-100 May 09, 2022 09:07 [facility] FINGERSTICK GLUCOSE Speci men Type: BLOOD PM Comment: Mark casillas Ordering Provid er: CODIE LEON Report Released Date/Time: May 10, 2022 11:50 PM Reporting Lab: [facility] [address] [facility] [address] Performing Lab: [facility] [address] [facility] [address] FINGERSTICK GLUCOSE 209 H 70-100 May 09, 2022 05:33 [facility] FINGERSTICK GLUCOSE Speci men Type: BLOOD PM Comment: Mark casillas Nurse Notified Ordering Provid er: CODIE LEON Report Released Date/Time: May 09, 2022 05:53 PM Reporting Lab: [facility] [address] [facility] [address] Performing Lab: [facility] [address] [facility] [address] FINGERSTICK GLUCOSE 251 H 70-100 May 09, 2022 02:09 [facility] VANCOMYCIN (PEAK) Specime n Type: SERUM PM No comment enter ed. Ordering Provid er: AMARIS DE JESUS Report Released Date/Time: May 09, 2022 09:33 AM Reporting Lab: [facility] [address] [facility] [address] Performing Lab: [facility] [address] [facility] [address] VANCOMYCIN (PEAK) 24.2 20.0-40.0 May 09, 2022 11:19 [facility] FINGERSTICK GLUCOSE Speci men Type: BLOOD AM Comment: Mark casillas Nurse Notified Ordering Provid er: CODIE LEON Report Released Date/Time: May 09, 2022 11:38 AM Reporting Lab: [facility] [address] [employer] [address] Performing Lab: [facility] [address] [employer] [address] FINGERSTICK GLUCOSE 240 H 70-100 May 09, 2022 08:13 [facility] VANCOMYCIN (TROUGH) Speci men Type: SERUM AM No comment enter ed. Ordering Provid er: AMARIS DE JESUS Report Released Date/Time: May 08, 2022 11:14 AM Reporting Lab: [facility] [address] [facility] [address] Performing Lab: [facility] [address] [facility] [address] VANCOMYCIN (TROUGH) 16.1 H 10.0-15.0 May 09, 2022 05:33 AM [facility] CBC & DIFF Specim en Type: BLOOD Comment: Automa nola Differential Performed Ordering Provid er: CODIE LEON Report Released Date/Time: May 08, 2022 05:27 PM Reporting Lab: [facility] [address] [employer] [address] Performing Lab: [facility] [address] [facility] [address] WBC 14.92 H 4.0-11.0 RBC 3.41 L [...] GRAN 0.16 H 0-0.1 May 09, 2022 [facility] COMPREHENSIVE METABOLIC Spec imen Type: PLASMA 05:32 AM PANEL+MG No comment enter ed. Ordering Provid er: CODIE LEON Report Released Date/Time: May 08, 2022 05:27 PM Reporting Lab: [facility] [address] [employer] [address] Performing Lab: [facility] [address] [employer] [address] CREATININE 1.2 0.7-1.2 UREA NITROGEN 25 8-26 [...] 59 L >60 May 09, 2022 05:16 [facility] FINGERSTICK GLUCOSE Speci men Type: BLOOD AM Comment: Mark casillas Nurse Notified Ordering Provid er: CODIE LEON Report Released Date/Time: May 09, 2022 07:27 AM Reporting Lab: [facility] [address] [employer] [address] Performing Lab: [facility] [address] [employer] [address] FINGERSTICK GLUCOSE 295 H 70-100 May 08, 2022 09:32 PM [facility] EXTRA MINT TUBE Specim en Type: PLASMA No comment enter ed. Ordering Provid er: MD ESTEBAN Report Released Date/Time: May 08, 2022 09:32 PM Reporting Lab: [facility] [address] [employer] [address] Performing Lab: [facility] [address] [employer] [address] EXTRA MINT TUBE RECEIVED May 08, 2022 09:32 PM [facility] EXTRA PURPLE TUBE Spec imen Type: BLOOD No comment enter ed. Ordering Provid er: MD ESTEBAN Report Released Date/Time: May 08, 2022 09:32 PM Reporting Lab: [facility] [address] [employer] [address] Performing Lab: [facility] [address] [employer] [address] EXTRA PURPLE TUBE RECEIVED May 08, 2022 09:32 [facility] EXTRA GOLD GEL TUBE Speci men Type: SERUM PM No comment enter ed. Ordering Provid er: MD ESTEBAN Report Released Date/Time: May 08, 2022 09:32 PM Reporting Lab: [facility] [address] [facility] [address] Performing Lab: [facility] [address] [facility] [address] EXTRA GOLD GEL TUBE RECEIVED May 08, 2022 09:32 PM [facility] EXTRA BLUE TUBE Specim en Type: PLASMA No comment enter ed. Ordering Provid er: MD ESTEBAN Report Released Date/Time: May 08, 2022 09:32 PM Reporting Lab: [facility] [address] [employer] [address] Performing Lab: [facility] [address] [facility] [address] EXTRA BLUE TUBE RECEIVED May 08, 2022 09:32 PM [facility] EXTRA BRASWELL TUBE Specim en Type: PLASMA No comment enter ed. Ordering Provid er: MD ESTEBAN Report Released Date/Time: May 08, 2022 09:37 PM Reporting Lab: [facility] [address] [facility] [address] Performing Lab: [facility] [address] [facility] [address] EXTRA BRASWELL TUBE RECEIVED May 08, 2022 09:32 PM [facility] LACTIC ACID Specim en Type: PLASMA No comment enter ed. Ordering Provid er: OG DIAL Report Released Date/Time: May 08, 2022 09:49 PM Reporting Lab: [facility] [address] [facility] [address] Performing Lab: [facility] [address] [facility] [address] LACTIC ACID 2.5 H 0.5-2.2 May 08, 2022 09:32 PM [facility] BNP Specim en Type: PLASMA No comment enter ed. Ordering Provid er: OG DIAL Report Released Date/Time: May 08, 2022 09:50 PM Reporting Lab: [facility] [address] [facility] [address] Performing Lab: [facility] [address] [facility] [address] BNP 897 H <99 May 08, 2022 09:32 PM [facility] CBC Specim en Type: BLOOD No comment enter ed. Ordering Provid er: OG DIAL Report Released Date/Time: May 08, 2022 09:50 PM Reporting Lab: [facility] [address] Performing Lab: [facility] [address] WBC 18.54 H 4.0-11.0 RBC 3.68 L 4.6-6.2 HGB 11.5 L 13.5-17.9 HCT 35.1 L 41-54 MCV 95.4 80-100 MCH 31.3 27-33 MCHC 32.8 32.0-37.5 PLT 221 150-400 MPV 11.1 H 7.4-10.4 RDW 14.9 H 11.5-14.5 May 08, 2022 09:32 PM [facility] BLOOD GASES Specim en Type: VENOUS BLOOD Comment: O2 THE RAPY = 3L PM Ordering Provid er: OG DIAL Report Released Date/Time: May 08, 2022 09:50 PM Reporting Lab: [facility] [address] Performing Lab: [facility] [address] PH 7.36 7.33-7.43 PCO2 47 41-51 BICARBONATE 24.4 21.0-30.0 PO2 31 L 35-40 OXYGEN SATURATION 54.7 L 70.0-75.0 PH(TEMP CORRECTED) 7.37 7.33-7.43 PCO2(TEMP CORRECTED) 46 41-51 PO2(TEMP CORRECTED) 31 L 35-40 PATIENT TEMPERATURE 36.7 May 08, 2022 [facility] COMPREHENSIVE METABOLIC Spec imen Type: PLASMA 09:32 PM PANEL+MG No comment enter ed. Ordering Provid er: OG DIAL Report Released Date/Time: May 08, 2022 09:50 PM Reporting Lab: [facility] [address] Performing Lab: [facility] [address] CREATININE 1.3 H 0.7-1.2 UREA NITROGEN 26 [...] 54 L >60 May 08, 2022 08:27 [facility] FINGERSTICK GLUCOSE Speci men Type: BLOOD PM Comment: Mark casillas Nurse Notified Ordering Provid er: CODIE LEON Report Released Date/Time: May 08, 2022 08:55 PM Reporting Lab: [facility] [address] [facility] [address] Performing Lab: [facility] [address] [facility] [address] FINGERSTICK GLUCOSE 272 H 70-100 May 08, 2022 06:56 [facility] FINGERSTICK GLUCOSE Speci men Type: BLOOD PM Comment: Mark casillas Ordering Provid er: CODIE LEON Report Released Date/Time: May 08, 2022 07:08 PM Reporting Lab: [facility] [address] [facility] [address] Performing Lab: [facility] [address] [facility] [address] FINGERSTICK GLUCOSE 262 H 70-100 May 08, 2022 04:50 [facility] FINGERSTICK GLUCOSE Speci men Type: BLOOD PM Comment: Nurse Notified Ordering Provid er: CODIE LEON Report Released Date/Time: May 08, 2022 05:14 PM Reporting Lab: [facility] [address] [facility] [address] Performing Lab: [facility] [address] [facility] [address] FINGERSTICK GLUCOSE 330 H 70-100 May 08, 2022 11:21 [facility] FINGERSTICK GLUCOSE Speci men Type: BLOOD AM Comment: Mark casillas Nurse Notified Ordering Provid er: CODIE LEON Report Released Date/Time: May 08, 2022 11:51 AM Reporting Lab: [facility] [address] [facility] [address] Performing Lab: [facility] [address] [facility] [address] FINGERSTICK GLUCOSE 231 H 70-100 May 08, 2022 07:25 AM [facility] CBC & DIFF Specim en Type: BLOOD Comment: Automa nola Differential Performed Ordering Provid er: BETO AYALA Report Released Date/Time: May 07, 2022 12:28 PM Reporting Lab: [facility] [address] [employer] [address] Performing Lab: [facility] [address] [employer] [address] WBC 16.29 H 4.0-11.0 RBC 3.38 L [...] GRAN 0.26 H 0-0.1 May 08, 2022 [facility] PROTHROMBIN TIME/INR Specime n Type: PLASMA 07:25 AM No comment enter ed. Ordering Provid er: BETO AYALA Report Released Date/Time: May 07, 2022 12:28 PM Reporting Lab: [facility] [address] [employer] [address] Performing Lab: [facility] [address] .INR 1.2 H 0.8-1.1 .PT 14.2 H 9.4-12.5 May 08, 2022 [facility] COMPREHENSIVE METABOLIC Spec imen Type: PLASMA 07:25 AM PANEL+MG No comment enter ed. Ordering Provid er: BETO AYALA Report Released Date/Time: May 07, 2022 12:28 PM Reporting Lab: [facility] [address] [employer] [address] Performing Lab: [facility] ONE [facility] [address] CREATININE 1.1 0.7-1.2 UREA NITROGEN 27 H [...] EGFR(CKD-EPI) 65 >60 May 08, 2022 06:53 [facility] FINGERSTICK GLUCOSE Speci men Type: BLOOD AM Comment: Mark casillas Ordering Provid er: CODIE LEON Report Released Date/Time: May 08, 2022 07:18 AM Reporting Lab: [facility] [address] [employer] [address] Performing Lab: [facility] [address] [employer] [address] FINGERSTICK GLUCOSE 276 H 70-100 May 07, 2022 08:36 [facility] FINGERSTICK GLUCOSE Speci men Type: BLOOD PM Comment: Nurse Notified Ordering Provid er: CODIE LEON Report Released Date/Time: May 08, 2022 12:29 AM Reporting Lab: [facility] [address] [employer] [address] Performing Lab: [facility] [address] [employer] [address] FINGERSTICK GLUCOSE 282 H 70-100 May 07, 2022 07:04 PM [facility] LACTIC ACID Specim en Type: PLASMA No comment enter ed. Ordering Provid er: BETO AYALA Report Released Date/Time: May 07, 2022 06:28 PM Reporting Lab: [facility] [address] [employer] [address] Performing Lab: [facility] [address] [employer] [address] LACTIC ACID 2.0 0.5-2.2 May 07, 2022 04:46 [facility] FINGERSTICK GLUCOSE Speci men Type: BLOOD PM Comment: Nurse Notified Ordering Provid er: BETO AYALA Report Released Date/Time: May 07, 2022 05:00 PM Reporting Lab: [facility] [address] [facility] [address] Performing Lab: [facility] [address] [facility] [address] FINGERSTICK GLUCOSE 274 H 70-100 May 07, 2022 12:47 [facility] FINGERSTICK GLUCOSE Speci men Type: BLOOD PM Comment: Mark casillas Nurse Notified Ordering Provid er: BETO AYALA Report Released Date/Time: May 07, 2022 05:32 PM Reporting Lab: [facility] [address] [employer] [facility] [address] Performing Lab: [facility] [address] [facility] [address] FINGERSTICK GLUCOSE 309 H 70-100 May 07, 2022 06:35 [facility] FINGERSTICK GLUCOSE Speci men Type: BLOOD AM Comment: Mark casillas Nurse Notified Ordering Provid er: GAYLA DOMINGUEZ Report Released Date/Time: May 07, 2022 06:46 AM Reporting Lab: [facility] [address] [employer] [address] Performing Lab: [facility] [address] [employer] [address] FINGERSTICK GLUCOSE 352 H 70-100 May 07, 2022 06:15 AM [facility] ALBUMIN Specim en Type: PLASMA No comment enter ed. Ordering Provid er: GAYLA DOMINGUEZ Report Released Date/Time: May 06, 2022 06:33 PM Reporting Lab: [facility] [address] [employer] [address] Performing Lab: [facility] [address] [employer] [address] ALBUMIN 3.0 L 3.5-5.2 May 07, 2022 [facility] COMPREHENSIVE METABOLIC Spec imen Type: PLASMA 06:15 AM PANEL+MG No comment enter ed. Ordering Provid er: GAYLA DOMINGUEZ Report Released Date/Time: May 06, 2022 09:11 PM Reporting Lab: [facility] [address] [employer] [facility] [address] Performing Lab: [facility] [address] [employer] [address] CREATININE 1.2 0.7-1.2 UREA NITROGEN 25 8-26 [...] L >60 May 07, 2022 06:15 AM [facility] CBC & DIFF Specim en Type: BLOOD Comment: Manual Differential Performed Ordering Provid er: GAYLA DOMINGUEZ Report Released Date/Time: May 06, 2022 09:11 PM Reporting Lab: [facility] [address] Performing Lab: [facility] [address] WBC 20.25 H 4.0-11.0 RBC 3.54 L [...] NORMOCYTIC, NORMOCHROMIC May 07, 2022 12:19 AM [facility] LACTIC ACID Specim en Type: PLASMA No comment enter ed. Ordering Provid er: GAYLA DOMINGUEZ Report Released Date/Time: May 06, 2022 07:13 PM Reporting Lab: [facility] [employer] [address] Performing Lab: [facility] [address] LACTIC ACID 2.7 H 0.5-2.2 May 06, 2022 10:45 [facility] FINGERSTICK GLUCOSE Speci men Type: BLOOD PM Comment: Save R esult Nurse Notified Ordering Provid er: GAYLA DOMINGUEZ Report Released Date/Time: May 07, 2022 12:08 AM Reporting Lab: [facility] [address] [facility] [address] Performing Lab: [facility] [address] [facility] [address] FINGERSTICK GLUCOSE 320 H 70-100 May 06, 2022 06:53 [facility] MRSA SURVL NARES Specimen Type: NARES PM DNA No comment enter ed. Ordering Provid er: GAYLA DOMINGUEZ Report Released Date/Time: May 06, 2022 06:33 PM Reporting Lab: [facility] [address] [facility] [address] Performing Lab: [facility] [address] [facility] [address] MRSA SURVL NARES DNA POSITIVE HH Negative May 06, 2022 06:51 PM [facility] LACTIC ACID Specim en Type: PLASMA No comment enter ed. Ordering Provid er: GAYLA DOMINGUEZ Report Released Date/Time: May 06, 2022 06:04 PM Reporting Lab: [facility] [address] [employer] [address] Performing Lab: [facility] [address] [employer] [address] LACTIC ACID 3.1 H 0.5-2.2 May 06, 2022 06:51 [facility] CARDIAC TROPONIN I Specim en Type: PLASMA PM No comment enter ed. Ordering Provid er: GAYLA DOMINGUEZ Report Released Date/Time: May 06, 2022 06:05 PM Reporting Lab: [facility] [address] [facility] [address] Performing Lab: [facility] [address] [employer] [address] CARDIAC TROPONIN I <0.028 <0.028 May 06, 2022 06:51 [facility] EXTRA GOLD GEL TUBE Speci men Type: SERUM PM No comment enter ed. Ordering Provid er: GAYLA DOMINGUEZ Report Released Date/Time: May 06, 2022 06:52 PM Reporting Lab: [facility] [address] [facility] [address] Performing Lab: [facility] [address] [facility] [address] EXTRA GOLD GEL TUBE RECEIVED May 06, 2022 06:51 [facility] C-REACTIVE PROTEIN Specim en Type: PLASMA PM No comment enter ed. Ordering Provid er: GAYLA DOMINGUEZ Report Released Date/Time: May 06, 2022 09:29 PM Reporting Lab: [facility] [employer] [address] Performing Lab: [facility] [address] C-REACTIVE PROTEIN 392.40 H <5.00 May 06, 2022 10:51 AM [facility] URINALYSIS Specim en Type: URINE No comment enter ed. Ordering Provid er: MODESTA VILLANUEVA Report Released Date/Time: May 06, 2022 10:11 AM Reporting Lab: [facility] [address] Performing Lab: [facility] [address] URINE COLOR YELLOW SPECIFIC GRAVITY 1.020 1.003-1.035 [...] ESTERASE 500 NEGATIVE May 06, 2022 10:24 [facility] COVID-19 DIAGNOSTIC Speci men Type: NASOPHARYNGEAL AM PANEL (CEPHEID) Comment: Cephei d GeneXpert (618) Ordering Provid er: MODESTA VILLANUEVA Report Released Date/Time: May 06, 2022 10:11 AM Reporting Lab: [facility] [address] Performing Lab: [facility] [address] COVID-19 (CEPHEID) Not Detected Not Dete cted May 06, 2022 10:20 AM [facility] POC ABG/LACTATE Specim en Type: VENOUS BLOOD No comment enter ed. Ordering Provid er: MODESTA VILLANUEVA Report Released Date/Time: May 06, 2022 10:22 AM Reporting Lab: [facility] [address] Performing Lab: [facility] [address] POC PH 7.410 7.31-7.41 POC PCO2 28.9 L 35.00-45.00 POC PO2 82 H 35.0-40.0 POC TCO2 19 L 24.0-29.0 POC HCO3 18.3 L 23.0-28.0 POC BE ECT -6 L -2 POC SO2 96 H 70-75 POC LACTATE 3.62 0.90-1.70 May 06, 2022 10:00 AM [facility] PHOSPHORUS Specim en Type: PLASMA No comment enter ed. Ordering Provid er: MODESTA VILLANUEVA Report Released Date/Time: May 06, 2022 10:11 AM Reporting Lab: [facility] [address] [facility] [address] Performing Lab: [facility] [address] [facility] [address] PHOSPHORUS 2.5 2.3-4.7 May 06, 2022 10:00 [facility] PROTHROMBIN TIME/INR Spec imen Type: PLASMA AM No comment enter ed. Ordering Provid er: MODESTA VILLANUEVA Report Released Date/Time: May 06, 2022 10:11 AM Reporting Lab: [facility] [address] [facility] [address] Performing Lab: [facility] [address] [employer] [address] .INR 2.5 H 0.8-1.1 .PT 29.2 H 9.4-12.5 May 06, 2022 10:00 [facility] ACT PART THROMBO TIME Spe cimen Type: PLASMA AM No comment enter ed. Ordering Provid er: MODESTA VILLANUEVA Report Released Date/Time: May 06, 2022 10:11 AM Reporting Lab: [facility] [address] [facility] [address] Performing Lab: [facility] [address] [facility] [address] APTT 37.8 H 25.1-36.5 May 06, 2022 10:00 [facility] CARDIAC TROPONIN I Specim en Type: PLASMA AM Comment: Critic al Value Reported To: BROOKS COTE 05-06-2022 @1053 BY MBB. Critical value report confirmed. Ordering Provid er: MODESTA VILLANUEVA Report Released Date/Time: May 06, 2022 10:11 AM Reporting Lab: [facility] [address] [facility] [address] Performing Lab: [facility] [address] [facility] [address] CARDIAC TROPONIN I 0.035 HH <0.028 May 06, 2022 10:00 AM [facility] LIPASE Specim en Type: PLASMA No comment enter ed. Ordering Provid er: MODESTA VILLANUEVA Report Released Date/Time: May 06, 2022 10:11 AM Reporting Lab: [facility] [address] [employer] [address] Performing Lab: [facility] [address] [employer] [address] LIPASE <4 <60 May 06, 2022 10:00 AM [facility] PROCALCITONIN Specim en Type: PLASMA No comment enter ed. Ordering Provid er: MODESTA VILLANUEVA Report Released Date/Time: May 06, 2022 10:11 AM Reporting Lab: [facility] [address] [employer] [address] Performing Lab: [facility] [address] [employer] [address] PROCALCITONIN 22.29 H <0.09 May 06, 2022 [facility] COMPREHENSIVE METABOLIC Spec imen Type: PLASMA 10:00 AM PANEL+MG Comment: Manual Differential Performed Ordering Provid er: MODESTA VILLANUEVA Report Released Date/Time: May 06, 2022 10:11 AM Reporting Lab: [facility] [address] [employer] [address] Performing Lab: [facility] [address] [employer] [address] CREATININE 1.3 H 0.7-1.2 UREA NITROGEN 25 [...] L >60 May 06, 2022 10:00 AM [facility] CBC & DIFF Specim en Type: BLOOD Comment: Manual Differential Performed Ordering Provid er: MODESTA VILLANUEVA Report Released Date/Time: May 06, 2022 10:11 AM Reporting Lab: [facility] [address] [employer] [address] Performing Lab: [facility] [address] [employer] [address] WBC 18.82 H 4.0-11.0 RBC 3.70 L [...] .RBC MORPHOLOGY PRESENT May 06, 2022 10:00 [facility] EXTRA GOLD GEL TUBE Speci men Type: SERUM AM No comment enter ed. Ordering Provid er: LINNEA RAND Report Released Date/Time: May 06, 2022 10:25 AM Reporting Lab: [facility] [address] [employer] [address] Performing Lab: [facility] [employer] [address] EXTRA GOLD GEL TUBE RECEIVED May 06, 2022 09:46 [facility] FINGERSTICK GLUCOSE Speci men Type: BLOOD AM Comment: Mark casillas Nurse Notified Ordering Provid er: MODESTA VILLANUEVA Report Released Date/Time: May 06, 2022 09:59 AM Reporting Lab: [facility] [address] [employer] [address] Performing Lab: [facility] [address] [employer] [address] FINGERSTICK GLUCOSE 369 H 70-100 Apr 30, 2022 09:17 AM [facility] CBC Specim en Type: BLOOD No comment enter ed. Ordering Provid er: BILL ROONEY Report Released Date/Time: Apr 30, 2022 08:21 AM Reporting Lab: [facility] [address] [employer] [address] Performing Lab: [facility] [employer] [address] WBC 10.40 4.0-11.0 RBC 3.96 L 4.6-6.2 HGB 12.3 L 13.5-17.9 HCT 37.8 L 41-54 MCV 95.5 80-100 MCH 31.1 27-33 MCHC 32.5 32.0-37.5 PLT 286 150-400 MPV 10.1 7.4-10.4 RDW 14.6 H 11.5-14.5 Apr 30, 2022 [facility] BASIC METABOLIC Specimen Typ e: PLASMA 09:17 AM PANEL+MG No comment enter ed. Ordering Provid er: BILL ROONEY Report Released Date/Time: Apr 30, 2022 08:21 AM Reporting Lab: [facility] [address] [facility] [address] Performing Lab: [facility] [address] CREATININE 1.2 0.7-1.2 UREA NITROGEN 26 8-26 [...] Source Pressure Rate Mass Index May 09 [facility]2021 11:10 [facility] May 09 [facility] 2021 07[facility]49 [facility] May 09 [place]2021 07:49 [facility] May 09 [facility] 2021 04:27 [facility] May 09 [facility] 2021 09:39 [facility] Social History: Smoking Status (Most current) [...] Comment Facility Feb 02, 2022 09:30 AM [place]-TOBACCO NEVER USED [facility] Tobacco Use History This section includes a history of the smoking, or tobacco- related health factors, that were collected on or before the date of the Encounter. The data comes from the [place] facility where the Encounter took place. Date/Time Smoking Status/Tobacco Use Comment Xavi darío Mar 22, 2021 07:45 AM [place]-TOBACCO NEVER USED [place] [facility] Oct 02, 2019 10:02 AM [place]-TOBACCO NEVER USED [place] [facility] May 21, 2018 09:05 AM [place]-TOBACCO NEVER USED [place] [facility] December 25, 2017 06:14 PM INPT NO TOBACCO USE IN LAST 30 DAYS [facility] Oct 01, 2017 07:34 AM LIFETIME NON-TOBACCO USER [facility] Sep 28, 2016 08:44 AM LIFETIME NON-TOBACCO USER [facility] Oct 14, 2015 07:52 AM LIFETIME NON-TOBACCO USER [facility] Oct 11, 2014 07:59 AM LIFETIME NON-TOBACCO USER [facility] January 15, 2007 07:55 AM LIFETIME NON-TOBACCO USER [facility] Advance Directives: All historical and [...] Apr 18, 2018 ADVANCE DIRECTIVE LARISSA SIGALA [facility] Apr 18, 2018 ADVANCE DIRECTIVE DISCUSSION RAE SIGALAN [facility] December 23, 2017 CLINICAL WARNING FARHAT [facility] May 11, 2003 ADVANCE DIRECTIVE BERT CASILLAS [facility] Radiology Reports: +/- 30 days [...] 09:46 CHEST 1 VIEW: SONJA OVALLES [facility] AM LUISANA EDDY [id number] -1935 M Ex Date: MAY 11, 2022@09:46 Req Phys: CODIE LEON Pat Loc: OP Unknown /05-13-2022@05:05 Img Loc: MAIN X-RAY Service: PRIMARY CARE - [facility] OFFICE (Case [id number] COMPLETE) CHEST 1 VIEW (RAD Detailed) CPT:87154 Proc Modifiers : PORTABLE EXAM Reason for [...] 11, 2022 Date Verified: MAY 11, 2022 Satellite Instruction Facilitator E-Sig:/ES/SONJA OVALLES MD Report: CHEST 1 VIEW [...] Primary Interpreting Staff: SONJA OVALLES MD, RADIOLOGIST (Satellite Instruction Facilitator) /CDC May 10, 2022 03:49 CT HEAD (P): RADIOLOGY,OUTSIDE [facility] PM LUISANA EDDY [id number] -1935 M SERVICE Exm Date: MAY 10, 2022@15:49 Req Phys: CODIE LEON Loc: OP Unknown /05-13-2022@05:05 Img Loc: CT IMAGING Service: PRIMARY CARE - MED OFFICE (Case [id number] COMPLETE) CT HEAD/BRAIN W/O CONTRAST (CT Detailed) CPT:94768 Reason for Study: CHANGE IN MENTAL STATUS Clinical History: CHANGE IN MENTAL STATUS. ORDER ADMINISTRATIVELY ENTERED FOLLOWING SYSTEM OUTAGE. Report Status: Verified Date Reported: MAY 10, 2022 Date Verified: MAY 10, 2022 Satellite Instruction Facilitator E-Sig: Report: CT HEAD/BRAIN W/O CONTRAST [PRINTSET] [...] study. READING PHYSICIAN: Akash Mccoy M.D. -[phone] 05/10/2022 17:35 PDT [facility] National Teleradiology Program [phone] (For Medical Practitioner Use Only ) Attention Patients / Veterans: If you have ques tions or concerns about these test results, please contact your o rdering provider or primary care team. Primary Interpreting Staff: RADIOLOGY,OUTSIDE SERVICE, Staff Physician / May 08, 2022 07:45 CT T-SPINE (P): RADIOLOGY,OUTSIDE [facility] PM LUISANA EDDY [id number] -1935 M SERVICE Exm Date: MAY 08, 2022@19:45 Req Phys: CODIE LEON Loc: OP Unknown /05-13-2022@05:05 Img Loc: CT IMAGING Service: PRIMARY CARE - MED OFFICE (Case [id number] COMPLETE) CT SPINE THORACIC W/O CONTR AST (CT Detailed) CPT:64152 Reason for Study: mrsa bacteremia, spinal surge ry - r/o abscess or discitis Clinical History: [place] IS NOT under investigation for COVID-19 or is COVID-19 negative Defer to radiologist for final CT protocol. Responsible provider name and phone number to n otify for critical findings if other than user placing the order a nd pager listed below: User placing orders pager: [phone] LAST 3: Collection DT Specimen Test Name [...] GFR (eGF 44 L Ref: >=60 Allergies: (Grant only) SIMVASTATIN (Feb 29, 2004) CEPHALEXIN (Mar 01, 2004) Report Status: Verified Date Reported: MAY 08, 2022 Date Verified: MAY 08, 2022 Satellite Instruction Facilitator E-Sig: Report: CT SPINE THORACIC W/O CONTRAST [PRINTSET] HISTORY:MRSA bacteremia NUMBER OF IMAGES:[id number] COMPARISON: Correlation with images from recent CT abdomen and pelvis May 06, 2022 TECHNIQUE: A non contrast CT of the thoracic sp ine was performed at the local [place]. Images were subsequently sent to [facility] for interpretation. Axial, coronal and sagittal [...] thoracic level. READING PHYSICIAN: Luisana Webb MD -[phone] 05/08/2022 19:20 PDT [facility] National Teleradiology Program [phone] (For Medical Practitioner Use Only ) Attention Patients / Veterans: If you have ques tions or concerns about these test results, please contact [facility] or primary care team. Primary Interpreting Staff: RADIOLOGY,OUTSIDE SERVICE, Staff Physician / May 08, 2022 04:48 CHEST 1 VIEW: RADIOLOGY,OUTSIDE [facility] PM LUISANA EDDY [id number] -1935 M SERVICE Exm Date: MAY 08, 2022@16:48 Req Phys: CODIE LEON Loc: OP Unknown /05-13-2022@05:05 Img Loc: MAIN X-RAY Service: PRIMARY CARE - MED OFFICE (Case [id number] COMPLETE) CHEST 1 VIEW (RAD Detailed) CPT:38470 Proc Modifiers : PORTABLE EXAM Reason for Study: dyspnea Clinical History: IS NOT under investigation for COVID-19 or is COVID-19 negative acute worsening of dyspnea Responsible provider name and phone number to notify for critical findings if other than user placing the order and pager listed below: User placing orders pager: [phone] malini cell [phone] LAST CREATININE 1.1 (05/08/22) Report Status: Verified Date Reported: MAY 08, 2022 Date Verified: MAY 08, 2022 Satellite Instruction Facilitator E-Sig: Report: CHEST 1 VIEW HISTORY: dyspnea COMPARISON: 05/06/2022 TECHNIQUE: Frontal view(s) of the chest, submit nola to the [place] National Teleradiology Program (NTP) for interp retation. FINDINGS: Reduced lung volumes. Progressive cardiomegaly, and vascular congestion as well as diffuse interstitial prom inence with probable small effusions. Impression: Expiratory exam with findings of CHF and mild e santa READING PHYSICIAN: Nghia Menjivar M.D. -[id number] [phone] 05/08/2022 18:57 EDT [facility]JI Teleradiology Program [phone] (For Medical Practitioner Use Only ) Attention Patients / Veterans: If you have ques tions or concerns about these test results, please contact your o rdering provider or primary care team. Primary Interpreting Staff: RADIOLOGY,OUTSIDE SERVICE, Staff Physician / May 07, 2022 10:29 CT HEAD (P): SHANI POLANCO [facility] AM LUISAAN EDDY [id number] -1935 M Exm Date: MAY 07, 2022@10:29 Req Phys: BETO AYALA Loc: OP Unknown/0 05-13-2022@05:05 Img Loc: CT IMAGING Service: PRIMARY CARE - MED OFFICE (Case [id number] COMPLETE) CT HEAD/BRAIN W/O CONTRAST ( CT Detailed) CPT:33444 Reason for Study: seizure noted at [facility] Clinical History: [place] IS NOT under investigation for COVID-19 or is COVID-19 negative Defer to radiologist for final CT protocol. Responsible provider name and phone number to n otify for critical findings if other than user placing the order a nd pager listed below: User placing orders pager: [phone] LAST 3: Collection DT Specimen Test Name [...] GFR (eGF 44 L Ref: >=60 Allergies: (Grant only) SIMVASTATIN (Feb 29, 2004) CEPHALEXIN (Mar 01, 2004) Report Status: Verified Date Reported: MAY 07, 2022 Date Verified: MAY 07, 2022 Satellite Instruction Facilitator E-Sig:/ES/SHANI POLANCO MD Report: EXAM: CT HEAD/BRAIN W/O CONTRAST HISTORY: seizure noted at [facility] Reason for Study: seizure noted at [facility] [place] IS NOT under investigation for COVID-19 or is COVID-19 negative Defer to radiologist for final CT prot ocol. Responsible provider name and phone number to notify for cr itical findings if other than user placing the order and pager lis nola below: User placing orders pager: [phone] LAST 3: Collecti on DT Specimen Test [...] Primary Interpreting Staff: SHANI POLANCO MD, RADIOLOGIST (Satellite Instruction Facilitator) /Javed May 06, 2022 11:40 CHEST 1 VIEW: RADIOLOGY,OUTSIDE [facility] LUISANA EDDY [id number] -1935 M SERVICE Exm Date: MAY 06, 2022@11:40 Req Phys: MODESTA VILLANUEVA Pat Loc: [facility] EMERGENCY DEPT WALK-IN (Re Img Loc: MAIN X-RAY Service: Unknown (Case [id number] COMPLETE) CHEST 1 VIEW (RAD Detailed) C PT:72262 Proc Modifiers : PORTABLE EXAM Reason for [...] pager listed below: User placing orders pager: [phone] LAST CREATININE 1.2 (04/30/22) Report Status: Verified Date Reported: MAY 06, 2022 Date Verified: MAY 06, 2022 Satellite Instruction Facilitator E-Sig: Report: Technique: Frontal chest. No comparison Impression: Cardiac silhouette is mildly enlarged. There is mild pulmonary venous congestion. No definite pleural effusion . No pneumothorax seen. READING PHYSICIAN: Vern Donnelly M.D. -[phone] 07 05/06/2022 13:26 EDT [facility] National Teleradiology Program [phone] (For Medical Practitioner Use Only ) Attention Patients / Veterans: If you have ques tions or concerns about these test results, please contact [facility] or [facility] care team. Primary Interpreting Staff: RADIOLOGY,OUTSIDE SERVICE, Staff Physician / May 06, 2022 10:36 CT (AP) ABDOMEN/PELVIS (P): RADIOLOGY,OUTSIDE [facility] LUISANA EDDY [id number] -1935 M SERVICE Exm Date: MAY 06, 2022@10:36 Req Phys: MODESTA VILLANUEVA Loc: [facility] EMERGENCY DEPT WALK-IN (Re Img Loc: CT IMAGING Service: Unknown (Case [id number] COMPLETE) CT (AP) ABDOMEN/PELVIS W CONT RAST(CT Detailed) CPT:88867 Reason for Study: fever, back pain Clinical History: fever, back pain, ecchymosis left low back consideration for intra-abdominal process, aort ic changes, LS spine trauma, kidney inflammation, GI or obs truction [place] IS under investigation (PUI) for COVID- 19 or is COVID-19+ Defer to radiologist for final CT protocol. Please enter pertinent clinical history on the next page. Responsible provider name and phone number to n otify for critical findings if other than user placing the order a nd pager listed below: User placing orders pager: [phone] LAST 3: Collection DT Specimen Test Name [...] ESTIMATED GFR(eGF 44 L Ref: >=60 Allergies: (Grant only) SIMVASTATIN (Feb 29, 2004) CEPHALEXIN (Mar 01, 2004) To see allergies from all [facility] locations click Re ports tab>Remote Data>All Available Sites>Clinical Reports>Aller gies. Report Status: Verified Date Reported: MAY 06, 2022 Date Verified: MAY 06, 2022 Satellite Instruction Facilitator E-Sig: Report: Exam: CT (AP) ABDOMEN/PELVIS W [...] findings, above. READING PHYSICIAN: Eduin Donaldson M.D. -[phone] 05/06/2022 12:48 [facility] [phone] (For Medical Practitioner Use Only ) Attention Patients / Veterans: If you have ques tions or concerns about these test results, please contact [facility] or primary care team. Primary Interpreting Staff: RADIOLOGY,OUTSIDE SERVICE, Staff Physician / May 06, 2022 10:35 CT HEAD/BRAIN W/O CONTRAST: RADIOLOGY,OUTSIDE [facility] AM LUISANA EDDY [id number] -1935 M SERVICE Exm Date: MAY 06, 2022@10:35 Req Phys: MODESTA VILLANUEVA Loc: [facility] EMERGENCY DEPT WALK-IN (Re Img Loc: CT IMAGING Service: Unknown (Case 64 COMPLETE) CT HEAD/BRAIN W/O CONTRAST (C T Detailed) CPT:36406 Reason for Study: falls, blood thinner, AMS, se izure Clinical History: falls, blood thinner, AMS, seizure [place] IS under investigation (PUI) for COVID- 19 or is COVID-19+ Defer to radiologist for final CT protocol. Responsible provider name and phone number to n otify for critical findings if other than user placing the order a nd pager listed below: User placing orders pager: [phone] LAST 3: Collection DT Specimen Test Name [...] ESTIMATED GFR(eGF 44 L Ref: >=60 Allergies: (Grant only) SIMVASTATIN (Feb 29, 2004) CEPHALEXIN (Mar 01, 2004) To see allergies from all [facility] locations click Re ports tab>Remote Data>All Available Sites>Clinical Reports>Aller gies. Report Status: Verified Date Reported: MAY 06, 2022 Date Verified: MAY 06, 2022 Satellite Instruction Facilitator E-Sig: Report: CT HEAD/BRAIN W/O CONTRAST Clinical [...] T findings. READING PHYSICIAN: Eduin Donaldson M.D. -[phone] 05/06/2022 12:30 [facility] National Teleradiology Program [phone] (For Medical Practitioner Use Only ) Attention Patients / Veterans: If you have ques tions or concerns about these test results, please contact your o rdering provider or primary care team. Primary Interpreting Staff: RADIOLOGY,OUTSIDE SERVICE, Staff Physician / May 06, 2022 10:35 CT CERVICAL SPINE W/O CONTRAST: RADIOLOGY,OUT SIDE [facility] AM LUISANA EDDY [id number] -1935 M SERVICE Exm Date: MAY 06, 2022@10:35 Req Phys: MODESTA VILLANUEVA Loc: [facility] EMERGENCY DEPT WALK-IN (Re Img Loc: CT IMAGING Service: Unknown (Case 65 COMPLETE) CT CERVICAL SPINE W/O CONTRAS T (CT Detailed) CPT:55266 Reason for Study: falls, blood thinner, AMS, se izure Clinical History: falls, blood thinner, AMS, seizure [place] IS under investigation (PUI) for COVID- 19 or is COVID-19+ Defer to radiologist for final CT protocol. Responsible provider name and phone number to n otify for critical findings if other than user placing the order a nd pager listed below: User placing orders pager: [phone] LAST 3: Collection DT Specimen Test Name [...] ESTIMATED GFR(eGF 44 L Ref: >=60 Allergies: (Grant only) SIMVASTATIN (Feb 29, 2004) CEPHALEXIN (Mar 01, 2004) To see allergies from all [place] locations click Re ports tab>Remote Data>All Available Sites>Clinical Reports>Aller gies. Report Status: Verified Date Reported: MAY 06, 2022 Date Verified: MAY 06, 2022 Satellite Instruction Facilitator E-Sig: Report: CT CERVICAL SPINE W/O CONTRAST HISTORY:falls, blood thinner, AMS, seizure NUMBER OF IMAGES:770 COMPARISON: None available. TECHNIQUE: A non contrast CT of the cervical sp ine was performed at the local [place]. Images were subsequently sent to [facility] for interpretation. Axial, coronal and sagittal [...] findings, above. READING PHYSICIAN: Eduin Donaldson M.D. -[phone] 05/06/2022 12:33 [facility] National Teleradiology Program [phone] (For Medical Practitioner Use Only ) Attention Patients / Veterans: If you have ques tions or concerns about these test results, please [facility] or primary care team. Primary [...] 09, 2022 05:30 AM LR MICROBIOLOGY REPORT: [facility] Reporting Lab: [facility] [CLIA# [id number]] [place] [address] Accession [UID]: [id number] [[id number]] Receiv ed: May 09, 2022@01:35 Collection sample: BLOOD Collection date: Apr 05:30 Provider: CODIE LEON Comment on specimen: LEFT ARM, RECEIVED 2 BLOOD CULTURE BOTTLES Test(s) ordered: CULTURE & SUSCEPTIBILITY...... 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 R TRIMETH/SULFA................. S TETRACYCLINE.................. S CLINDAMYCIN................... S RIFAMPIN...................... S VANCOMYCIN.................... S Bacteriology Remark(s): VANCOMYCIN SHAMIKA: <=0.5 ug/mL THIS REPORT IS FINAL =--=--=--=--=--=--=--=--=--=--=--=--=--= --=--=--=--=--=--=--=--=--=--=--=--=-- Performing Laboratory: Bacteriology Report Performed By: [facility] [CLIA# [id number]] [place] [address] May 08, 2022 03:23 PM LR MICROBIOLOGY REPORT: [facility] Reporting Lab: [facility] [CLIA# [id number]] [place] [address] Accession [UID]: [id number] [[id number]] Receiv ed: May 08, 2022@15:41 Collection sample: BLOOD Collection date: Apr 15:23 Provider: CODIE LEON Comment on specimen: LEFT ARM, RECEIVED 2 BLOOD CULTURE BOTTLES Test(s) ordered: CULTURE & SUSCEPTIBILITY...... completed: May 10, 2022 * BACTERIOLOGY FINAL REPORT => May 10, 2022 16:3 1 TECH CODE: [id number] CULTURE RESULTS: GROWTH SAME THAT OF ANOTHER CULTURE Comment: FOR SUSCEPTIBILITY REPORT SEE PREVIOUS POSITIVE SAME MB 22 [id number] ( 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 from Anaerobic bottle ) ( Recovered from Aerobic bottle ) Bacteriology Remark(s): THIS REPORT IS FINAL =--=--=--=--=--=--=--=--=--=--=--=--=--= --=--=--=--=--=--=--=--=--=--=--=--=-- Performing Laboratory: Bacteriology Report Performed By: [facility] [CLIA# [id number]] [facility] [place] [address] May 08, 2022 03:21 PM LR MICROBIOLOGY REPORT: [facility] Reporting Lab: [facility] [CLIA# [id number] 147] [place] [address] Accession [UID]: [id number] [[id number]] Receiv ed: May 08, 2022@15:40 Collection sample: BLOOD Collection date: Apr 15:21 Provider: CODIE LEON Comment on specimen: RT ARM, RECEIVED 2 BLOOD CU LTURE BOTTLES Test(s) ordered: CULTURE & SUSCEPTIBILITY...... completed: May 10, 2022 * BACTERIOLOGY FINAL REPORT => May 10, 2022 16:3 1 TECH CODE: [id number] CULTURE RESULTS: GROWTH SAME THAT OF ANOTHER CULTURE Comment: FOR SUSCEPTIBILITY REPORT SEE PREVIOUS POSITIVE SAME MB 22 [id number] ( 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 from Anaerobic bottle ) ( Recovered from Aerobic bottle ) Bacteriology Remark(s): THIS REPORT IS FINAL =--=--=--=--=--=--=--=--=--=--=--=--=--= --=--=--=--=--=--=--=--=--=--=--=--=-- Performing Laboratory: Bacteriology Report Performed By: [facility] [CLIA# [id number]] [place] [address] May 07, 2022 05:30 AM LR MICROBIOLOGY REPORT: [facility] Reporting Lab: [facility] [CLIA# [id number]] [place] [address] Accession [UID]: [id number] [[id number]] Receiv ed: May 07, 2022@01:35 Collection sample: [...] REPORT SEE PREVIOUS POSITIVE SAME MB 22 [id number] ( 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 from Aerobic bottle ) ( Recovered from Anaerobic bottle ) Bacteriology Remark(s): THIS REPORT IS FINAL =--=--=--=--=--=--=--=--=--=--=--=--=--= --=--=--=--=--=--=--=--=--=--=--=--=-- Performing Laboratory: Bacteriology Report Performed By: [facility] [CLIA# [id number]] [place] [address] May 06, 2022 10:51 AM LR MICROBIOLOGY REPORT: [facility] Reporting Lab: [facility] [CLIA# [id number] 147] [place] [address] Accession [UID]: [id number] [[id number]] Receiv ed: May 06, 2022@11:32 Collection sample: [...] --=--=--=--=--=--=--=--=--=--=--=--=-- Performing Laboratory: Bacteriology Report Performed By: [facility] [CLIA# [id number]] [place] [address] May 06, 2022 10:34 AM LR MICROBIOLOGY REPORT: [facility] Reporting Lab: [facility] [CLIA# [id number]] [place] [address] Accession [UID]: [id number] [[id number]] Receiv ed: May 06, 2022@10:51 Collection sample: BLOOD Collection date: Apr 10:34 Provider: MODESTA VILLANUEVA Comment on specimen: RECEIVED 2 BLOOD [facility] Test(s) ordered: CULTURE & SUSCEPTIBILITY...... completed: May 07, 2022 * BACTERIOLOGY FINAL REPORT => May 08, 2022 08:3 0 TECH CODE: [id number] CULTURE RESULTS: STAPHYLOCOCCUS AUREUS METHICILL IN RESISTANT [...] --=--=--=--=--=--=--=--=--=--=--=--=-- Performing Laboratory: Bacteriology Report Performed By: [facility] [CLIA# [id number]] [place] [address] May 06, 2022 10:00 AM LR MICROBIOLOGY REPORT: [facility] Lab: [facility] [CLIA# [id number] 147] [place] [address] Accession [UID]: [id number] [[id number]] Receiv ed: May 06, 2022@10:41 Collection sample: [...] SUSCEPTIBILITY REPORT SEE PREVIOUS POSITIVE SAME 22 [id number] ( 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 from Anaerobic bottle ) ( Recovered from Aerobic bottle ) Bacteriology Remark(s): THIS REPORT IS FINAL =--=--=--=--=--=--=--=--=--=--=--=--=--= --=--=--=--=--=--=--=--=--=--=--=--=-- Performing Laboratory: Bacteriology Report Performed By: [facility] [CLIA# [id number]] [place] [address] Encounter Notes: All associated encounter notes This section contains the clinical notes associated to the Encounter. Date/Time Encounter Note(s) Provider Source May 09, 2022 01:00 AM CRITICAL CARE UNIT NOTE: [facility]YBIL [facility] LOCAL TITLE: ICCA INPATIENT FLOWSHEET STANDARD TITLE: CRITICAL CARE UNIT NOTE DATE OF NOTE: MAY 09, 2022@01:00 ENTRY DATE: MAY 10, 2022@18:34:41 AUTHOR: BRITTANIEPrivacyProtector-KeyOwnerK EXP COSIGNER: URGENCY: STATUS: COMPLETED This is a place chan only. Please see ProTip to view document. /es/ CIS-KeyOwnerK SYSTEM ICU DOCUMENT IMPORT Signed: 05/10/2022 18:34 May 09, 2022 01:00 AM CRITICAL CARE UNIT NOTE: BRITTANIESynedgenSYBIL [facility] LOCAL TITLE: ICCA RESPIRATORY THERAPY FLOWSHEET STANDARD TITLE: CRITICAL CARE UNIT NOTE DATE OF NOTE: MAY 09, 2022@01:00 ENTRY DATE: MAY 10, 2022@18:48:16 AUTHOR: SYSTEMPrivacyProtector-ARK EXP COSIGNER: URGENCY: STATUS: COMPLETED This is a place chan only. Please see ProTip to view document. /es/ CIS-ARK SYSTEM ICU DOCUMENT IMPORT Signed: 05/10/2022 18:48
--- OUTSIDE RECORDS SUMMARY | 2022-05-15 09:40 | XMS_ITS ---
DAILY HOSPITALIZATION DATA [facility] Encounter Summary Created on:May 09, 2022 Patient:LUISANA EDDY Sex:Male :1935 Author Organization Department [facility] rs Address [address] [place] [address] Support Name Relationship Address Phone WADE LORENZO Unavailable [address] [place] [address] WADE LORENZO Unavailable [phone] [place] [address] ARACELI MARSHALL Unavailable [address] [place] [address] MARILIA MARSHALLA Unavailable [address] [place] [address] Insurance Providers: All historical and current Section [...] [place] M[place] Aug 19, [id number] Kristel EDDY FORMERLY [facility] (WNR) ADVANTAGE (WNR) 2016 8 [id number] [phone] [facility] [place] MEDICARE M[place] Aug 19, [id number] Kristel EDDY [facility]LY [facility] (WNR) ADVANTAGE (WNR) 2016 8 [id number] [phone] [facility] 1 Selected Encounter This section includes the information on record at [place] for the Encounter. Date/Time Encounter Type Encounter Description Reason Provider Source May 09, 2022 11:29 Inpatient Visit DAILY HOSPITALIZATION DATA PM [facility] Encounter Template Text not used by MS Plan of Treatment: Future Appointments (+ 6 months) and Future Tests (+/- 45 days) The Plan of Treatment section includes future care activities for the patient from [facility] This section includes future appointments and future orders which are active, pending orscheduled.Future Appointments This section includes appointments that were scheduled to occur 6 months from the date of the Encounter, up to a maximum of 20 appointments. The data comes from all [place] treatment facilities. Appointment Date/Time Appointment Type Appointment Facili ty Name May 11, 2022 06:15 PM AMBULATORY - NONE [facility] Jul 23, 2022 08:00 AM AMBULATORY - NEUROLOGY [facility] Active, Pending, and Scheduled Orders This section includes a listing of several types of active, pending, and scheduled orders, including clinic medications orders, diagnostic test orders, procedure orders and consult orders; where the start date of the order is 45 days before the date of the Encounter or 45 days after the date of the Encounter. The data comes from all [place] treatment [facility]. Test Date/Time Test Type Test Details Facility Name Apr 30, 2022 08:21 Laboratory - Chemistry URINALYSIS URINE WC ON CE [facility] AM Order Apr 30, 2022 08:21 Laboratory - CULTURE & SUSCEPTIBILITY [facility] AM Microbiology Order URINE WC May 06, 2022 12:00 Laboratory - Blood ABO/RH - LAB BLOOD [facility] AM Bank Order May 06, 2022 10:11 Laboratory - Blood TYPE & SCREEN - LAB [facility] AM Bank Order BLOOD WC May 06, 2022 10:27 Pharmacy [facility] AM Medication Order May 06, 2022 10:28 [facility] AM Infusion Order May 06, 2022 10:34 [facility] AM Infusion Order May 06, 2022 10:41 [facility] AM Infusion Order May 06, 2022 12:15 [facility] PM Medication Order May 06, 2022 01:31 [facility] PM Medication Order May 06, 2022 04:49 [facility] PM Medication Order May 07, 2022 01:00 Laboratory - CULTURE & SUSCEPTIBILITY [facility] PM Microbiology Order BLOOD WC ONCE May 11, 2022 09:07 [facility] AM Microbiology Order BLOOD WC May 11, 2022 09:07 Laboratory - CULTURE & SUSCEPTIBILITY [facility] AM Microbiology Order BLOOD WC May 11, 2022 09:38 Laboratory - Chemistry EOSINOPHIL SMEAR,URINE [facility] AM Order URINE WC ONCE May 11, 2022 09:38 Laboratory - Chemistry FENA URINE WC ONCE [facility] AM Order May 11, 2022 09:38 Laboratory - Chemistry URINALYSIS URINE WC ON CE [facility] AM Order Lab Results: +/- 30 days of the encounter This section includes the Chemistry and Hematology Lab Results on record with [place] for the patient. Radiology Reports and Pathology Reports are provided separately, in subsequent sections.Lab Results This section contains the Chemistry/Hematology Results that were resulted 30 days before or 30 daysafter the date of the Encounter. Date/Time Source Result Type Result - Unit Interpretation Reference Range Comment May 11, 2022 11:13 [facility] FINGERSTICK GLUCOSE Speci men Type: BLOOD AM Comment: Mark casillas Nurse Notified Ordering Provid er: CODIE LEON Report Released Date/Time: May 11, 2022 11:53 AM Reporting Lab: [facility] [address] [facility] [address] Performing [facility]: [facility] [address] FINGERSTICK GLUCOSE 367 H 70-100 May 11, 2022 07:05 [facility] LIVER FUNCTION TESTS Spec imen Type: PLASMA AM No comment enter ed. Ordering Provid er: CODIE LEON Report Released Date/Time: May 11, 2022 09:08 AM Reporting Lab: [facility] [address] [address] Performing Lab: [facility] [address] BILIRUBIN, TOTAL 1.6 H 0.2-1.2 ALKALINE PHOSPHATASE 102 40-150 ALT/SGPT 42 <55 AST/SGOT 30 <34 GAMMA GTP 52 <64 DIR. BILIRUBIN 1.2 H <0.5 May 11, 2022 07:05 [facility] BASIC METABOLIC Specimen Type: PLASMA AM PANEL+MG No comment enter ed. Ordering Provid er: OG DIAL Report Released Date/Time: May 11, 2022 04:46 AM Reporting Lab: [facility] [address] Performing Lab: [facility] [address] CREATININE 1.6 H 0.7-1.2 UREA NITROGEN 28 H 8-26 GLUCOSE 396 H 70-100 SODIUM 150 H 136-145 POTASSIUM 3.7 3.5-5.1 CHLORIDE 120 H 98-107 CO2 23 22-29 CALCIUM 8.4 8.4-10.2 MAGNESIUM 2.1 1.6-2.6 ANION GAP 7 5-15 CREAT EGFR(CKD-EPI) 42 L >60 May 11, 2022 07:05 AM [facility] CK,TOTAL Specim en Type: PLASMA No comment enter ed. Ordering Provid er: CODIE LEON Report Released Date/Time: May 11, 2022 09:08 AM Reporting Lab: [facility] [address] [facility] [address] Performing Lab: [facility] [address] [facility] [address] CK,TOTAL 16 L 39-208 May 11, 2022 07:05 AM [facility] BNP Specim en Type: PLASMA No comment enter ed. Ordering Provid er: CODIE LEON Report Released Date/Time: May 11, 2022 09:15 AM Reporting Lab: [facility] [address] [facility] [address] Performing Lab: [facility] [address] [facility] [address] BNP 59 <99 May 11, 2022 07:05 AM [facility] CBC Specim en Type: BLOOD No comment enter ed. Ordering Provid er: OG DIAL Report Released Date/Time: May 11, 2022 04:46 AM Reporting Lab: [facility] [address] [facility] [address] Performing Lab: [facility] [address] [facility] [address] WBC 15.93 H 4.0-11.0 RBC 3.60 L 4.6-6.2 HGB 11.2 L 13.5-17.9 HCT 35.3 L 41-54 MCV 98.1 80-100 MCH 31.1 27-33 MCHC 31.7 L 32.0-37.5 PLT 231 150-400 MPV 11.2 H 7.4-10.4 RDW 15.2 H 11.5-14.5 May 11, 2022 06:14 [facility] FINGERSTICK GLUCOSE Speci men Type: BLOOD AM Comment: Mark casillas Nurse Notified Ordering Provid er: CODIE LEON Report Released Date/Time: May 11, 2022 06:42 AM Reporting Lab: [facility] [address] [facility] [address] Performing Lab: [facility] [address] [facility] [address] FINGERSTICK GLUCOSE 345 H 70-100 May 11, 2022 02:24 [facility] FINGERSTICK GLUCOSE Speci men Type: BLOOD AM Comment: Mark casillas Ordering Provid er: CODIE LEON Report Released Date/Time: May 11, 2022 02:44 AM Reporting Lab: [facility] [address] [facility] [address] Performing Lab: [facility] [address] [facility] [address] FINGERSTICK GLUCOSE 375 H 70-100 May 10, 2022 08:38 [facility] FINGERSTICK GLUCOSE Speci men Type: BLOOD PM Comment: Mark casillas Ordering Provid er: CODIE LEON Report Released Date/Time: May 11, 2022 12:31 AM Reporting Lab: [facility] [address] [facility] [address] Performing Lab: [facility] [address] [facility] [address] FINGERSTICK GLUCOSE 346 H 70-100 May 10, 2022 05:05 [facility] FINGERSTICK GLUCOSE Speci men Type: BLOOD PM Comment: Mark casillas Nurse Notified Ordering Provid er: CODIE LEON Report Released Date/Time: May 10, 2022 11:50 PM Reporting Lab: [facility] [address] [facility] [address] Performing Lab: [facility] [address] [facility] [address] FINGERSTICK GLUCOSE 245 H 70-100 May 10, 2022 02:00 [facility] VANCOMYCIN (TROUGH) Speci men Type: PLASMA PM No comment enter ed. Ordering Provid er: CODIE LEON Report Released Date/Time: May 11, 2022 01:34 AM Reporting Lab: [facility] [address] [facility] [address] Performing Lab: [facility] [address] [facility] [address] VANCOMYCIN (TROUGH) 31.8 H 10.0-15.0 May 10, 2022 [facility] BASIC METABOLIC Specimen Typ e: PLASMA 02:00 PM PANEL+MG No comment enter ed. Ordering Provid er: CODIE LEON Report Released Date/Time: May 11, 2022 01:34 AM Reporting Lab: [facility] [address] Performing Lab: [facility] [address] CREATININE 1.1 .7-1.2 UREA NITROGEN 22 8-26 GLUCOSE 279 H 70-100 SODIUM 150 H 136-145 POTASSIUM 3.2 L 3.5-5.1 CHLORIDE 116 H 98-107 CO2 23 22-29 CALCIUM 8.5 8.4-10.2 MAGNESIUM 2.0 1.6-2.6 ANION GAP 11 5-15 CREAT EGFR(CKD-EPI) 65 >60 May 10, 2022 01:20 PM [facility] CBC & DIFF Specim en Type: BLOOD Comment: Automa nola Differential Performed Ordering Provid er: MD ESTEBAN Report Released Date/Time: May 10, 2022 08:52 PM Reporting Lab: [facility] [address] Performing Lab: [facility] [address] WBC 16.24 H 4.0-11.0 RBC 3.76 L [...] 0.28 H 0-0.1 May 10, 2022 11:07 [facility] FINGERSTICK GLUCOSE Speci men Type: BLOOD AM Comment: Mark casillas Nurse Notified Ordering Provid er: CODIE LEON Report Released Date/Time: May 11, 2022 12:31 AM Reporting Lab: [facility] [address] [facility] [address] Performing Lab: [facility] [address] [facility] [address] FINGERSTICK GLUCOSE 253 H 70-100 May 10, 2022 06:16 [facility] FINGERSTICK GLUCOSE Speci men Type: BLOOD AM Comment: Mark casillas Nurse Notified Ordering Provid er: CODIE LEON Report Released Date/Time: May 10, 2022 11:50 PM Reporting Lab: [facility] [address] [facility] [address] Performing Lab: [facility] [address] [facility] [address] FINGERSTICK GLUCOSE 271 H 70-100 May 09, 2022 09:07 [facility] FINGERSTICK GLUCOSE Speci men Type: BLOOD PM Comment: Mark casillas Ordering Provid er: CODIE LEON Report Released Date/Time: May 10, 2022 11:50 PM Reporting Lab: [facility] [address] [facility] [address] Performing Lab: [facility] [address] [facility] [address] FINGERSTICK GLUCOSE 209 H 70-100 May 09, 2022 05:33 [facility] FINGERSTICK GLUCOSE Speci men Type: BLOOD PM Comment: Mark caisllas Nurse Notified Ordering Provid er: CODIE LEON Report Released Date/Time: May 09, 2022 05:53 PM Reporting Lab: [facility] [address] [facility] [address] Performing Lab: [facility] [address] [facility] [address] FINGERSTICK GLUCOSE 251 H 70-100 May 09, 2022 02:09 [facility] VANCOMYCIN (PEAK) Specime n Type: SERUM PM No comment enter ed. Ordering Provid er: AMARIS DE JESUS Report Released Date/Time: May 09, 2022 09:33 AM Reporting Lab: [facility] [address] [facility] [address] Performing Lab: [facility] [address] [facility] [address] VANCOMYCIN (PEAK) 24.2 20.0-40.0 May 09, 2022 11:19 [facility] FINGERSTICK GLUCOSE Speci men Type: BLOOD AM Comment: Mark casillas Nurse Notified Ordering Provid er: CODIE LEON Report Released Date/Time: May 09, 2022 11:38 AM Reporting Lab: [facility] [address] Performing Lab: [facility] [address] FINGERSTICK GLUCOSE 240 H 70-100 May 09, 2022 08:13 [facility] VANCOMYCIN (TROUGH) Speci men Type: SERUM AM No comment enter ed. Ordering Provid er: AMARIS DE JESUS Report Released Date/Time: May 08, 2022 11:14 AM Reporting Lab: [facility] [address] Performing Lab: [facility] [address] VANCOMYCIN (TROUGH) 16.1 H 10.0-15.0 May 09, 2022 05:33 AM [facility] CBC & DIFF Specim en Type: BLOOD Comment: Automa nola Differential Performed Ordering Provid er: CODIE LEON Report Released Date/Time: May 08, 2022 05:27 PM Reporting Lab: [facility] [address] Performing Lab: [facility] [address] WBC 14.92 H 4.0-11.0 RBC 3.41 L [...] GRAN 0.16 H 0-0.1 May 09, 2022 [facility] COMPREHENSIVE METABOLIC Spec imen Type: PLASMA 05:32 AM PANEL+MG No comment enter ed. Ordering Provid er: MALINI,CODIE E Report Released Date/Time: May 08, 2022 05:27 PM Reporting Lab: [facility] [address] [facility] [address] Performing Lab: [facility] [address] [facility] [address] CREATININE 1.2 0.7-1.2 UREA NITROGEN 25 8-26 [...] 59 L >60 May 09, 2022 05:16 [facility] FINGERSTICK GLUCOSE Speci men Type: BLOOD AM Comment: Mark casillas Nurse Notified Ordering Provid er: CODIE LEON Report Released Date/Time: May 09, 2022 07:27 AM Reporting Lab: [facility] [address] [facility] [address] FINGERSTICK GLUCOSE 295 H 70-100 May 08, 2022 09:32 PM [facility] EXTRA MINT TUBE Specim en Type: PLASMA No comment enter ed. Ordering Provid er: MD ESTEBAN Report Released Date/Time: May 08, 2022 09:32 PM Reporting Lab: [facility] [address] Performing Lab: [facility] [address] EXTRA MINT TUBE RECEIVED May 08, 2022 09:32 PM [facility] EXTRA PURPLE TUBE Spec imen Type: BLOOD No comment enter ed. Ordering Provid er: MD ESTEBAN Report Released Date/Time: May 08, 2022 09:32 PM Reporting Lab: [facility] [address] [address] [facility] [address] Performing [facility]: [facility] [address] EXTRA PURPLE TUBE RECEIVED May 08, 2022 09:32 [facility] EXTRA GOLD GEL TUBE Speci men Type: SERUM PM No comment enter ed. Ordering Provid er: MD ESTEBAN Report Released Date/Time: May 08, 2022 09:32 PM Reporting Lab: [facility] [address] [facility] [address] Performing Lab: [facility] [address] [facility] [address] EXTRA GOLD GEL TUBE RECEIVED May 08, 2022 09:32 PM [facility] EXTRA BLUE TUBE Specim en Type: PLASMA No comment enter ed. Ordering Provid er: MD ESTEBAN Report Released Date/Time: May 08, 2022 09:32 PM Reporting Lab: [facility] [address] [facility] [address] Performing Lab: [facility] [address] [facility] [address] EXTRA BLUE TUBE RECEIVED May 08, 2022 09:32 PM [facility] EXTRA BRASWELL TUBE Specim en Type: PLASMA No comment enter ed. Ordering Provid er: MD ESTEBAN Report Released Date/Time: May 08, 2022 09:37 PM Reporting Lab: [facility] [address] [facility] [address] Performing Lab: [facility] [address] [facility] [address] EXTRA BRASWELL TUBE RECEIVED May 08, 2022 09:32 PM [facility] LACTIC ACID Specim en Type: PLASMA No comment enter ed. Ordering Provid er: OG DIAL Report Released Date/Time: May 08, 2022 09:49 PM Reporting Lab: [facility] [address] [facility] [address] Performing Lab: [facility] [address] [facility] [address] LACTIC ACID 2.5 H 0.5-2.2 May 08, 2022 09:32 PM [facility] BNP Specim en Type: PLASMA No comment enter ed. Ordering Provid er: OG DIAL Report Released Date/Time: May 08, 2022 09:50 PM Reporting Lab: [facility] [address] [facility] [address] Performing Lab: [facility] [address] [facility] [address] BNP 897 H <99 May 08, 2022 09:32 PM [facility] BLOOD GASES Specim en Type: VENOUS BLOOD Comment: O2 THE RAPY = 3L PM Ordering Provid er: OG DIAL Report Released Date/Time: May 08, 2022 09:50 PM Reporting Lab: [facility] [address] [address] [facility] [address] Performing Lab: [facility] [address] PH 7.36 7.33-7.43 PCO2 47 41-51 BICARBONATE 24.4 21.0-30.0 PO2 31 L 35-40 OXYGEN SATURATION 54.7 L 70.0-75.0 PH(TEMP CORRECTED) 7.37 7.33-7.43 PCO2(TEMP CORRECTED) 46 41-51 PO2(TEMP CORRECTED) 31 L 35-40 PATIENT TEMPERATURE 36.7 May 08, 2022 09:32 PM [facility] CBC Specim en Type: BLOOD No comment enter ed. Ordering Provid er: OG DIAL Report Released Date/Time: May 08, 2022 09:50 PM Reporting Lab: [facility] [address] Performing Lab: [facility] [address] WBC 18.54 H 4.0-11.0 RBC 3.68 L 4.6-6.2 HGB 11.5 L 13.5-17.9 HCT 35.1 L 41-54 MCV 95.4 80-100 MCH 31.3 27-33 MCHC 32.8 32.0-37.5 PLT 221 150-400 MPV 11.1 H 7.4-10.4 RDW 14.9 H 11.5-14.5 May 08, 2022 [facility] COMPREHENSIVE METABOLIC Spec imen Type: PLASMA 09:32 PM PANEL+MG No comment enter ed. Ordering Provid er: OG DIAL Report Released Date/Time: May 08, 2022 09:50 PM Reporting Lab: [facility] [address] Performing Lab: [facility] [address] CREATININE 1.3 H 0.7-1.2 UREA NITROGEN 26 [...] 54 L >60 May 08, 2022 08:27 [facility] FINGERSTICK GLUCOSE Speci men Type: BLOOD PM Comment: Mark casillas Nurse Notified Ordering Provid er: CODIE LEON Report Released Date/Time: May 08, 2022 08:55 PM Reporting Lab: [facility] [address] [facility] [address] Performing Lab: [facility] [address] [facility] [address] FINGERSTICK GLUCOSE 272 H 70-100 May 08, 2022 06:56 [facility] FINGERSTICK GLUCOSE Speci men Type: BLOOD PM Comment: Mark casillas Ordering Provid er: CODIE LEON Report Released Date/Time: May 08, 2022 07:08 PM Reporting Lab: [facility] [address] [facility] [address] Performing Lab: [facility] [address] [facility] [address] FINGERSTICK GLUCOSE 262 H 70-100 May 08, 2022 04:50 [facility] FINGERSTICK GLUCOSE Speci men Type: BLOOD PM Comment: Nurse Notified Ordering Provid er: CODIE LEON Report Released Date/Time: May 08, 2022 05:14 PM Reporting Lab: [facility] [address] [facility] [address] Performing Lab: [facility] [address] [facility] [address] FINGERSTICK GLUCOSE 330 H 70-100 May 08, 2022 11:21 [facility] FINGERSTICK GLUCOSE Speci men Type: BLOOD AM Comment: Mark casillas Nurse Notified Ordering Provid er: CODIE LEON Report Released Date/Time: May 08, 2022 11:51 AM Reporting Lab: [facility] [address] [facility] [address] Performing Lab: [facility] [address] [facility] [address] FINGERSTICK GLUCOSE 231 H 70-100 May 08, 2022 07:25 AM [facility] CBC & DIFF Specim en Type: BLOOD Comment: Automa nola Differential Performed Ordering Provid er: BETO AYALA Report Released Date/Time: May 07, 2022 12:28 PM Reporting Lab: [facility] [address] Performing Lab: [facility] [address] WBC 16.29 H 4.0-11.0 RBC 3.38 L [...] GRAN 0.26 H 0-0.1 May 08, 2022 [facility] PROTHROMBIN TIME/INR Specime n Type: PLASMA 07:25 AM No comment enter ed. Ordering Provid er: EBTO AYALA Report Released Date/Time: May 07, 2022 12:28 PM Reporting Lab: [facility] [address] Performing Lab: [facility] [address] .INR 1.2 H 0.8-1.1 .PT 14.2 H 9.4-12.5 May 08, 2022 [facility] COMPREHENSIVE METABOLIC Spec imen Type: PLASMA 07:25 AM PANEL+MG No comment enter ed. Ordering Provid er: BETO AYALA Report Released Date/Time: May 07, 2022 12:28 PM Reporting Lab: [facility] [id number] Performing Lab: [facility] [id number] CREATININE 1.1 0.7-1.2 UREA NITROGEN 27 H [...] EGFR(CKD-EPI) 65 >60 May 08, 2022 06:53 [facility] FINGERSTICK GLUCOSE Speci men Type: BLOOD AM Comment: Mark casillas Ordering Provid er: CODIE LEON Report Released Date/Time: May 08, 2022 07:18 AM Reporting Lab: [facility] [address] [facility] [address] Performing Lab: [facility] [address] FINGERSTICK GLUCOSE 276 H 70-100 May 07, 2022 08:36 [facility] FINGERSTICK GLUCOSE Speci men Type: BLOOD PM Comment: Nurse Notified Ordering Provid er: CODIE LEON Report Released Date/Time: May 08, 2022 12:29 AM Reporting Lab: [facility] [address] [facility] [address] Performing Lab: [facility] [address] [facility] [address] FINGERSTICK GLUCOSE 282 H 70-100 May 07, 2022 07:04 PM [facility] LACTIC ACID Specim en Type: PLASMA No comment enter ed. Ordering Provid er: BETO AYALA Report Released Date/Time: May 07, 2022 06:28 PM Reporting Lab: [facility] [address] [facility] [address] Performing Lab: [facility] [address] [facility] [address] LACTIC ACID 2.0 0.5-2.2 May 07, 2022 04:46 [facility] FINGERSTICK GLUCOSE Speci men Type: BLOOD PM Comment: Nurse Notified Ordering Provid er: BETO AYALA Report Released Date/Time: May 07, 2022 05:00 PM Reporting Lab: [facility] [address] [facility] [address] Performing Lab: [facility] [address] [facility] [address] FINGERSTICK GLUCOSE 274 H 70-100 May 07, 2022 12:47 [facility] FINGERSTICK GLUCOSE Speci men Type: BLOOD PM Comment: Mark casillas Nurse Notified Ordering Provid er: BETO AYALA Report Released Date/Time: May 07, 2022 05:32 PM Reporting Lab: [facility] [address] [facility] [address] Performing Lab: [facility] [address] [facility] [address] FINGERSTICK GLUCOSE 309 H 70-100 May 07, 2022 06:35 [facility] FINGERSTICK GLUCOSE Speci men Type: BLOOD AM Comment: Mark casillas Nurse Notified Ordering Provid er: GAYLA DOMINGUEZ Report Released Date/Time: May 07, 2022 06:46 AM Reporting Lab: [facility] [address] [facility] [address] Performing Lab: [facility] [address] [facility] [address] FINGERSTICK GLUCOSE 352 H 70-100 May 07, 2022 06:15 AM [facility] ALBUMIN Specim en Type: PLASMA No comment enter ed. Ordering Provid er: GAYLA DOMINGUEZ Report Released Date/Time: May 06, 2022 06:33 PM Reporting Lab: [facility] [address] [facility] [address] Performing Lab: [facility] [address] [facility] [address] ALBUMIN 3.0 L 3.5-5.2 May 07, 2022 [facility] COMPREHENSIVE METABOLIC Spec imen Type: PLASMA 06:15 AM PANEL+MG No comment enter ed. Ordering Provid er: GAYLA DOMINGUEZ Report Released Date/Time: May 06, 2022 09:11 PM Reporting Lab: [facility] [address] [facility] [address] Performing Lab: [facility] [address] [facility] [address] CREATININE 1.2 0.7-1.2 UREA NITROGEN 25 8-26 [...] L >60 May 07, 2022 06:15 AM [facility] CBC & DIFF Specim en Type: BLOOD Comment: Manual Differential Performed Ordering Provid er: GAYLA DOMINGUEZ Report Released Date/Time: May 06, 2022 09:11 PM Reporting Lab: [facility] [address] [facility] [address] Performing Lab: [facility] [address] [facility] [address] WBC 20.25 H 4.0-11.0 RBC 3.54 L [...] NORMOCYTIC, NORMOCHROMIC May 07, 2022 12:19 AM [facility] LACTIC ACID Specim en Type: PLASMA No comment enter ed. Ordering Provid er: GAYLA DOMINGUEZ Report Released Date/Time: May 06, 2022 07:13 PM Reporting Lab: [facility] [address] [facility] [address] Performing Lab: [facility] [address] [facility] [address] LACTIC ACID 2.7 H 0.5-2.2 May 06, 2022 10:45 [facility] FINGERSTICK GLUCOSE Speci men Type: BLOOD PM Comment: Mark casillas Nurse Notified Ordering Provid er: GAYLA DOMINGUEZ Report Released Date/Time: May 07, 2022 12:08 AM Reporting Lab: [facility] [address] [facility] [address] Performing Lab: [facility] [address] [facility] [address] FINGERSTICK GLUCOSE 320 H 70-100 May 06, 2022 06:53 [facility] MRSA SURVL NARES Specimen Type: NARES PM DNA No comment enter ed. Ordering Provid er: GAYLA DOMINGUEZ Report Released Date/Time: May 06, 2022 06:33 PM Reporting Lab: [facility] [address] [facility] [address] Performing Lab: [facility] [address] [facility] [address] MRSA SURVL NARES DNA POSITIVE HH Negative May 06, 2022 06:51 PM [facility] LACTIC ACID Specim en Type: PLASMA No comment enter ed. Ordering Provid er: GAYLA DOMINGUEZ Report Released Date/Time: May 06, 2022 06:04 PM Reporting Lab: [facility] [address] [facility] [address] Performing Lab: [facility] [address] [facility] [address] LACTIC ACID 3.1 H 0.5-2.2 May 06, 2022 06:51 [facility] CARDIAC TROPONIN I Specim en Type: PLASMA PM No comment enter ed. Ordering Provid er: GAYLA DOMINGUEZ Report Released Date/Time: May 06, 2022 06:05 PM Reporting Lab: [facility] [address] [facility] [address] Performing Lab: [facility] [address] [facility] [address] CARDIAC TROPONIN I <0.028 <0.028 May 06, 2022 06:51 [facility] C-REACTIVE PROTEIN Specim en Type: PLASMA PM No comment enter ed. Ordering Provid er: GAYLA DOMINGUEZ Report Released Date/Time: May 06, 2022 09:29 PM Reporting Lab: [facility] [address] [facility] [address] Performing Lab: [facility] [address] [facility] [address] C-REACTIVE PROTEIN 392.40 H <5.00 May 06, 2022 06:51 [facility] EXTRA GOLD GEL TUBE Speci men Type: SERUM PM No comment enter ed. Ordering Provid er: GAYLA DOMINGUEZ Report Released Date/Time: May 06, 2022 06:52 PM Reporting Lab: [facility] [address] Performing Lab: [facility] [address] EXTRA GOLD GEL TUBE RECEIVED May 06, 2022 10:51 AM [facility] URINALYSIS Specim en Type: URINE No comment enter ed. Ordering Provid er: MODESTA VILLANUEVA Report Released Date/Time: May 06, 2022 10:11 AM Reporting Lab: [facility] [address] Performing Lab: [facility] [address] URINE COLOR YELLOW SPECIFIC GRAVITY 1.020 1.003-1.035 [...] ESTERASE 500 NEGATIVE May 06, 2022 10:24 [facility] COVID-19 DIAGNOSTIC Speci men Type: NASOPHARYNGEAL AM PANEL (CEPHEID) Comment: Cephei d GeneXpert (618) Ordering Provid er: MODESTA VILLANUEVA Report Released Date/Time: May 06, 2022 10:11 AM Reporting Lab: [facility] [address] Performing Lab: [facility] [address] COVID-19 (CEPHEID) Not Detected Not Dete cted May 06, 2022 10:20 AM [facility] POC ABG/LACTATE Specim en Type: VENOUS BLOOD No comment enter ed. Ordering Provid er: MODESTA VILLANUEVA Report Released Date/Time: May 06, 2022 10:22 AM Reporting Lab: [facility] [address] Performing Lab: [facility] [address] POC PH 7.410 7.31-7.41 POC PCO2 28.9 L 35.00-45.00 POC PO2 82 H 35.0-40.0 POC TCO2 19 L 24.0-29.0 POC HCO3 18.3 L 23.0-28.0 POC BE ECT -6 L -2 POC SO2 96 H 70-75 POC LACTATE 3.62 0.90-1.70 May 06, 2022 10:00 AM [facility] PHOSPHORUS Specim en Type: PLASMA No comment enter ed. Ordering Provid er: MODESTA VILLANUEVA Report Released Date/Time: May 06, 2022 10:11 AM Reporting Lab: [facility] [address] [facility] [address] Performing Lab: [facility] [address] [facility] [address] PHOSPHORUS 2.5 2.3-4.7 May 06, 2022 10:00 [facility] PROTHROMBIN TIME/INR Spec imen Type: PLASMA AM No comment enter ed. Ordering Provid er: MODESTA VILLANUEVA Report Released Date/Time: May 06, 2022 10:11 AM Reporting Lab: [facility] [address] [facility] [address] Performing Lab: [facility] [address] [facility] [address] .INR 2.5 H 0.8-1.1 .PT 29.2 H 9.4-12.5 May 06, 2022 10:00 [facility] ACT PART THROMBO TIME Spe cimen Type: PLASMA AM No comment enter ed. Ordering Provid er: MODESTA VILLANUEVA Report Released Date/Time: May 06, 2022 10:11 AM Reporting Lab: [facility] [address] [facility] [address] Performing Lab: [facility] [address] [facility] [address] APTT 37.8 H 25.1-36.5 May 06, 2022 10:00 [facility] CARDIAC TROPONIN I Specim en Type: PLASMA AM Comment: Critic al Value Reported To: BROOKS COTE 05-06-2022 @1053 BY MBB. Critical value report confirmed. Ordering Provid er: MODESTA VILLANUEVA Report Released Date/Time: May 06, 2022 10:11 AM Reporting Lab: [facility] [address] [facility] [address] Performing Lab: [facility] [address] [facility] [address] CARDIAC TROPONIN I 0.035 HH <0.028 May 06, 2022 10:00 AM [facility] PROCALCITONIN Specim en Type: PLASMA No comment enter ed. Ordering Provid er: MODESTA VILLANUEVA Report Released Date/Time: May 06, 2022 10:11 AM Reporting Lab: [facility] [address] [facility] [address] Performing Lab: [facility] [address] [facility] [address] PROCALCITONIN 22.29 H <0.09 May 06, 2022 10:00 AM [facility] CBC & DIFF Specim en Type: BLOOD Comment: Manual Differential Performed Ordering Provid er: MODESTA VILLANUEVA Report Released Date/Time: May 06, 2022 10:11 AM Reporting [facility] [address] Performing Lab: [facility] [address] WBC 18.82 H 4.0-11.0 RBC 3.70 L [...] 0.09 .RBC MORPHOLOGY PRESENT May 06, 2022 [facility] COMPREHENSIVE METABOLIC Spec imen Type: PLASMA 10:00 AM PANEL+MG Comment: Manual Differential Performed Ordering Provid er: MODESTA VILLANUEVA Report Released Date/Time: May 06, 2022 10:11 AM Reporting Lab: [facility] [address] [facility] [address] Performing Lab: [facility] [address] [facility] [address] CREATININE 1.3 H 0.7-1.2 UREA NITROGEN 25 [...] L >60 May 06, 2022 10:00 AM [facility] LIPASE Specim en Type: PLASMA No comment enter ed. Ordering Provid er: MODESTA VILLANUEVA Report Released Date/Time: May 06, 2022 10:11 AM Reporting Lab: [facility] [address] [facility] [address] Performing Lab: [facility] [address] [facility] [address] LIPASE <4 <60 May 06, 2022 10:00 [facility] EXTRA GOLD GEL TUBE Speci men Type: SERUM AM No comment enter ed. Ordering Provid er: LINNEA RAND Report Released Date/Time: May 06, 2022 10:25 AM Reporting Lab: [facility] [address] [facility] [address] Performing Lab: [facility] [address] [facility] [address] EXTRA GOLD GEL TUBE RECEIVED May 06, 2022 09:46 [facility] FINGERSTICK GLUCOSE Speci men Type: BLOOD AM Comment: Mark casillas Nurse Notified Ordering Provid er: MODESTA VILLANUEVA Report Released Date/Time: May 06, 2022 09:59 AM Reporting Lab: [facility] [address] [facility] [address] Performing Lab: [facility] [address] [facility] [address] FINGERSTICK GLUCOSE 369 H 70-100 Apr 30, 2022 09:17 AM [facility] CBC Specim en Type: BLOOD No comment enter ed. Ordering Provid er: BILL ROONEY Report Released Date/Time: Apr 30, 2022 08:21 AM Reporting Lab: [facility] [address] [facility] [address] Performing Lab: [facility] [address] [facility] [address] WBC 10.40 4.0-11.0 RBC 3.96 L 4.6-6.2 HGB 12.3 L 13.5-17.9 HCT 37.8 L 41-54 MCV 95.5 80-100 MCH 31.1 27-33 MCHC 32.5 32.0-37.5 PLT 286 150-400 MPV 10.1 7.4-10.4 RDW 14.6 H 11.5-14.5 Apr 30, 2022 [facility] BASIC METABOLIC Specimen Typ e: PLASMA 09:17 AM PANEL+MG No comment enter ed. Ordering Provid er: BILL ROONEY Report Released Date/Time: Apr 30, 2022 08:21 AM Reporting Lab: [facility] ONE [facility] [address] Performing Lab: [facility] ONE [facility] [address] CREATININE 1.2 0.7-1.2 UREA NITROGEN 26 8-26 [...] Source Pressure Rate Mass Index May 09 [facility] 11:10 [facility] [place] PM [facility] May 09 [facility] 07:49 OLIS [facility] May 09 [place] 2021 07:49 OLIS [place] PM [facility] May 09 [place] 2021 04:27 OLIS [facility] May 09, 7 [place] 2021 09:[facility] Social History: Smoking Status (Most current) [...] took place. Date/Time Current Smoking Status Comment [facility] Feb 02, 2022 09:30 AM VA-TOBACCO NEVER USED [facility] [facility] Tobacco Use History This section includes a history of the smoking, or tobacco- related health factors, that were collected on or before the date of the Encounter. The data comes from the [place] facility where the Encounter took place. Date/Time Smoking Status/Tobacco Use Comment [facility] Mar 22, 2021 07:45 AM VA-TOBACCO NEVER USED [place] [facility] Oct 02, 2019 10:02 AM VA-TOBACCO NEVER USED [place] [facility] May 21, 2018 09:05 AM MS-TOBACCO NEVER USED [place] [facility] December 25, 2017 06:14 PM INPT NO TOBACCO USE IN LAST 30 DAYS [facility] Oct 01, 2017 07:34 AM LIFETIME NON-TOBACCO USER [facility] Sep 28, 2016 08:44 AM LIFETIME NON-TOBACCO USER [facility] Oct 14, 2015 07:52 AM LIFETIME NON-TOBACCO USER [facility] Oct 11, 2014 07:59 AM LIFETIME NON-TOBACCO USER [facility] January 15, 2007 07:55 AM LIFETIME NON-TOBACCO USER [facility] Advance Directives: All historical and current Section [...] Source Apr 18, 2018 ADVANCE DIRECTIVE JOVONLARISSA [facility] Apr 18, 2018 ADVANCE DIRECTIVE DISCUSSION LARISSA SIGALA [facility] December 23, 2017 CLINICAL WARNING FARHAT SCHMID [facility] May 11, 2003 ADVANCE DIRECTIVE BERT CASILLAS [facility] Radiology Reports: +/- 30 days of the [...] May 11, 2022 09:46 CHEST 1 VIEW: SONAJ OVALLES [facility] NELY EDDYMICHELE Rivera [id number] -1935 M Exm Date: MAY 11, 2022@09:46 Req Phys: CODIE LEON Loc: OP Unknown /05-13-2022@05:05 Img Loc: MAIN X-RAY Service: PRIMARY [facility] (Case [id number] COMPLETE) CHEST 1 VIEW (RAD Detailed) CPT:76705 Proc Modifiers : PORTABLE EXAM Reason for [...] 11, 2022 Date Verified: MAY 11, 2022 Netezza Developer E-Sig:/ES/SONJA OVALLES MD Report: CHEST 1 [...] Primary Interpreting Staff: SONJA OVALLES MD, RADIOLOGIST (Netezza Developer) /CDC May 10, 2022 03:49 CT HEAD (P): RADIOLOGY,OUTSIDE [facility] PM LUISANA EDDY [id number] -1935 M SERVICE Exm Date: MAY 10, 2022@15:49 Req Phys: CODIE LEON Loc: OP Unknown /05-13-2022@05:05 Img Loc: CT IMAGING Service: PRIMARY [facility] (Case [id number] COMPLETE) CT HEAD/BRAIN W/O CONTRAST (CT Detailed) CPT:44373 Reason for Study: CHANGE IN MENTAL STATUS Clinical History: CHANGE IN MENTAL STATUS. ORDER ADMINISTRATIVELY ENTERED FOLLOWING SYSTEM OUTAGE. Report Status: Verified Date Reported: MAY 10, 2022 Date Verified: MAY 10, 2022 Netezza Developer E-Sig: Report: CT HEAD/BRAIN W/O CONTRAST [...] study. READING PHYSICIAN: Akash Mccoy M.D. -[phone] 05/10/2022 17:35 PDT [facility] National Teleradiology Program [phone] (For Medical Practitioner Use Only ) Attention Patients / Veterans: If you have ques tions or concerns about these test results, please contact your o rdering provider or primary care team. Primary Interpreting Staff: RADIOLOGY,OUTSIDE SERVICE, Staff Physician / May 08, 2022 07:45 CT T-SPINE (P): RADIOLOGY,OUTSIDE [facility] PM LUISANA EDDY [id number] -1935 M SERVICE Exm Date: MAY 08, 2022@19:45 Req Phys: CODIE LEON Chantal Loc: OP Unknown /05-13-2022@05:05 Img Loc: CT IMAGING Service: PRIMARY CARE - MED OFFICE (Case [id number] COMPLETE) CT SPINE THORACIC W/O CONTR AST (CT Detailed) CPT:59007 Reason for Study: mrsa bacteremia, spinal surge ry - r/o abscess or discitis Clinical History: [place] IS NOT under investigation for COVID-19 or is COVID-19 negative Defer to radiologist for final CT protocol. Responsible provider name and phone number to n otify for critical findings if other than user placing the order a nd pager listed below: User placing orders pager: [phone] LAST 3: Collection DT Specimen Test Name [...] GFR (eGF 44 L Ref: >=60 Allergies: ([place] only) SIMVASTATIN (Feb 29, 2004) CEPHALEXIN (Mar 01, 2004) Report Status: Verified Date Reported: MAY 08, 2022 Date Verified: MAY 08, 2022 Netezza Developer E-Sig: Report: CT SPINE THORACIC W/O CONTRAST [PRINTSET] HISTORY:MRSA bacteremia NUMBER OF IMAGES:[id number] COMPARISON: Correlation with images from recent CT abdomen and pelvis May 06, 2022 TECHNIQUE: A non contrast CT of the thoracic sp ine was performed at the local [place]. Images were subsequently sent to [facility] for interpretation. Axial, coronal and sagittal [...] thoracic level. READING PHYSICIAN: Luisana Webb MD -[phone] 05/08/2022 19:20 PDT [facility] Teler[facility] [phone] (For Medical Practitioner Use Only ) Attention Patients / Veterans: If you have ques tions or concerns about these test results, please contact your o [facility] provider or primary care team. Primary Interpreting Staff: RADIOLOGY,OUTSIDE SERVICE, Staff Physician / May 08, 2022 04:48 CHEST 1 VIEW: RADIOLOGY,OUTSIDE [facility] PM LUISANA EDDY [id number] -1935 M SERVICE Exm Date: MAY 08, 2022@16:48 Req Phys: CODIE LEON Loc: OP Unknown /05-13-2022@05:05 Img Loc: MAIN X-RAY Service: PRIMARY CARE - MED OFFICE (Case [id number] COMPLETE) CHEST 1 VIEW (RAD Detailed) CPT:07649 Proc Modifiers : PORTABLE EXAM Reason for Study: dyspnea Clinical History: [place] IS NOT under investigation for COVID-19 or is COVID-19 negative acute worsening of dyspnea Responsible provider name and phone number to notify for critical findings if other than user placing the order and pager listed below: User placing orders pager: [phone] malini cell [phone] LAST CREATININE 1.1 (05/08/22) Report Status: Verified Date Reported: MAY 08, 2022 Date Verified: MAY 08, 2022 Netezza Developer E-Sig: Report: CHEST 1 VIEW HISTORY: [...] e santa READING PHYSICIAN: Nghia Menjivar M.D. -[phone] 10 05/08/2022 18:57 EDT [facility] [phone] (For Medical Practitioner Use Only ) Attention Patients / Veterans: If you have ques tions or concerns about these test results, please contact your o rdering provider or primary care team. Primary Interpreting Staff: RADIOLOGY,OUTSIDE SERVICE, Staff Physician / May 07, 2022 10:29 CT HEAD (P): SHANI POLANCO [facility] AM LUISANA EDDY [id number] -1935 M Exm Date: MAY 07, 2022@10:29 Req Phys: BETO AYALA Pat Loc: OP Unknown/0 05-13-2022@05:05 Img Loc: CT IMAGING Service: PRIMARY CARE - MED OFFICE (Case [id number] COMPLETE) CT HEAD/BRAIN W/O CONTRAST ( CT Detailed) CPT:03963 Reason for Study: seizure noted at [facility] Clinical History: [place] IS NOT under investigation for COVID-19 or is COVID-19 negative Defer to radiologist for final CT protocol. Responsible provider name and phone number to n otify for critical findings if other than user placing the order a nd pager listed below: User placing orders pager: [phone] LAST 3: Collection DT Specimen Test Name [...] GFR (eGF 44 L Ref: >=60 Allergies: ([place] only) SIMVASTATIN (Feb 29, 2004) CEPHALEXIN (Mar 01, 2004) Report Status: Verified Date Reported: MAY 07, 2022 Date Verified: MAY 07, 2022 Netezza Developer E-Sig:/ES/SHANI POLANCO MD Report: EXAM: CT HEAD/BRAIN W/O CONTRAST HISTORY: seizure noted at [facility] Reason for Study: seizure noted at [facility] [place] IS NOT under investigation for COVID-19 or is COVID-19 negative Defer to radiologist for final CT prot ocol. Responsible provider name and phone number to notify for cr itical findings if other than user placing the order and pager lis nola below: User placing orders pager: [phone] LAST 3: Collecti on DT Specimen Test [...] Primary Interpreting Staff: SHANI POLANCO MD, RADIOLOGIST (Netezza Developer) /Javed May 06, 2022 11:40 CHEST 1 VIEW: RADIOLOGY,OUTSIDE [facility] LUISANA EDDY [id number] -1935 M SERVICE Exm Date: MAY 06, 2022@11:40 Req Phys: MODESTA VILLANUEVA Loc: [facility] EMERGENCY DEPT WALK-IN (Re Im Loc: MAIN X-RAY Service: Unknown (Case [id number] COMPLETE) CHEST 1 VIEW (RAD Detailed) C PT:17187 Proc Modifiers : PORTABLE EXAM Reason for Study: fever, back pain Clinical History: Reason for Exam: Severe Sepsis Pathway to Evalu ate Volume Status and Source of Sepsis [place] IS under investigation ([facility]) for COVID- 19 or is COVID-19+ 86 yo M with fever, back pain Responsible provi violeta name and phone number to notify for critical findings if other than user placing the order and pager listed below: User placing orders pager: [phone] LAST CREATININE 1.2 (04/30/22) Report Status: Verified Date Reported: MAY 06, 2022 Date Verified: MAY 06, 2022 Netezza Developer E-Sig: Report: Technique: Frontal chest. No comparison Impression: Cardiac silhouette is mildly enlarged. There is mild pulmonary venous congestion. No definite pleural effusion . No pneumothorax seen. READING PHYSICIAN: Vern Donnelly M.D. -[id number] 07 05/06/2022 13:26 EDT [facility] National Teleradiology Program [phone] (For Medical Practitioner Use Only ) Attention Patients / Veterans: If you have ques tions or concerns about these test results, please [facility] or primary care team. Primary Interpreting Staff: RADIOLOGY,OUTSIDE SERVICE, Staff Physician / May 06, 2022 10:36 CT (AP) ABDOMEN/PELVIS (P): RADIOLOGY,OUTSIDE [facility] LUISANA EDDY [phone] 1935 M SERVICE Exm Date: MAY 06, 2022@10:36 Req Phys: MODESTA VILLANUEVA Loc: [facility] EMERGENCY DEPT WALK-IN (Re Img Loc: CT IMAGING Service: Unknown (Case 66 COMPLETE) CT (AP) ABDOMEN/PELVIS W CONT RAST(CT Detailed) CPT:49342 Reason for Study: fever, back pain Clinical History: fever, back pain, ecchymosis left low back consideration for intra-abdominal process, aort ic changes, LS spine trauma, kidney inflammation, GI or obs truction [place] IS under investigation ([facility]) for COVID- 19 or is COVID-19+ Defer to radiologist for final CT protocol. Please enter pertinent clinical history on the next page. Responsible provider name and phone number to n otify for critical findings if other than user placing the order a nd pager listed below: User placing orders pager: [phone] LAST 3: Collection DT Specimen Test Name [...] ESTIMATED GFR(eGF 44 L Ref: >=60 Allergies: ([place] only) SIMVASTATIN (Feb 29, 2004) CEPHALEXIN (Mar 01, 2004) To see allergies from all [place] locations click Re ports tab>Remote Data>All Available Sites>Clinical Reports>Aller gies. Report Status: Verified Date Reported: MAY 06, 2022 Date Verified: MAY 06, 2022 [employer] Developer E-Sig: Report: Exam: CT (AP) ABDOMEN/PELVIS [...] findings, above. READING PHYSICIAN: Eduin Donaldson M.D. -[phone] 05/06/2022 12:48 [facility] Telerad[facility] Program [phone] (For Medical Practitioner Use Only ) Attention Patients / Veterans: If you have ques tions or concerns about these test results, please contact your o rdering provider or primary care team. Primary Interpreting Staff: RADIOLOGY,OUTSIDE SERVICE, Staff Physician / May 06, 2022 10:35 CT HEAD/BRAIN W/O CONTRAST: RADIOLOGY,OUTSIDE [facility] NUNULUISANA [id number] -1935 M SERVICE Exm Date: MAY 06, 2022@10:35 Req Phys: MODESTA VILLANUEVA Loc: [facility] EMERGENCY DEPT WALK-IN (Re Img Loc: CT IMAGING Service: Unknown (Case 64 COMPLETE) CT HEAD/BRAIN W/O CONTRAST (C T Detailed) CPT:35218 Reason for Study: falls, blood thinner, AMS, se izure Clinical History: falls, blood thinner, AMS, seizure IS under investigation (PUI) for COVID- 19 or is COVID-19+ Defer to radiologist for final CT protocol. Responsible provider name and phone number to n otify for critical findings if other than user placing the order a nd pager listed below: User placing orders pager: [phone] LAST 3: Collection DT Specimen Test Name [...] ESTIMATED GFR(eGF 44 L Ref: >=60 Allergies: ([place] only) SIMVASTATIN (Feb 29, 2004) CEPHALEXIN (Mar 01, 2004) To see allergies from all [facility] locations click Re ports tab>Remote Data>All Available Sites>Clinical Reports>Lashon king. Report Status: Verified Date Reported: MAY 06, 2022 Date Verified: MAY 06, 2022 [employer] Developer E-Sig: Report: CT HEAD/BRAIN W/O CONTRAST [...] T findings. READING PHYSICIAN: Eduin Donaldson M.D. -[phone] 05/06/2022 12:30 [facility] National Teleradiology Program [phone] (For Medical Practitioner Use Only ) Attention Patients / Veterans: If you have ques tions or concerns about these test results, please contact your [facility] provider or primary care team. Primary Interpreting Staff: RADIOLOGY,OUTSIDE SERVICE, Staff Physician / May 06, 2022 10:35 CT CERVICAL SPINE W/O CONTRAST: RADIOLOGY,OUT SIDE [facility] AM LUISANA EDDY [id number] M SERVICE Exm Date: MAY 06, 2022@10:35 Req Phys: MODESTA VILLANUEVA Loc: [facility] EMERGENCY DEPT WALK-IN (Re Img Loc: CT IMAGING Service: Unknown (Case 65 COMPLETE) CT CERVICAL SPINE W/O CONTRAS T (CT Detailed) CPT:58703 Reason for Study: falls, blood thinner, AMS, se izure Clinical History: falls, blood thinner, AMS, seizure [place] IS under investigation (PUI) for COVID- 19 or is COVID-19+ Defer to radiologist for final CT protocol. Responsible provider name and phone number to n otify for critical findings if other than user placing the order a nd pager listed below: User placing orders pager: [phone] LAST 3: Collection DT Specimen Test Name [...] ESTIMATED GFR(eGF 44 L Ref: >=60 Allergies: ([place] only) SIMVASTATIN (Feb 29, 2004) CEPHALEXIN (Mar 01, 2004) To see allergies from all [place] locations click Re ports tab>Remote Data>All Available Sites>Clinical Reports>Lashon gies. Report Status: Verified Date Reported: MAY 06, 2022 Date Verified: MAY 06, 2022 Netezza Developer E-Sig: Report: CT CERVICAL SPINE W/O CONTRAST HISTORY:falls, blood thinner, AMS, seizure NUMBER OF IMAGES:770 COMPARISON: None available. TECHNIQUE: A non contrast CT of the cervical sp ine was performed at the local [place]. Images were subsequently sent to [facility] for interpretation. Axial, coronal and sagittal [...] findings, above. READING PHYSICIAN: Eduin Donaldson M.D. -[phone] 05/06/2022 12:33 [facility] National Teleradiology Program [phone] (For Medical Practitioner Use Only ) Attention Patients / Veterans: If you have ques tions or concerns about these test results, please contact your [facility] provider or primary care team. Primary Interpreting [...] 09, 2022 05:30 AM LR MICROBIOLOGY REPORT: [facility] Reporting Lab: [facility] [CLIA# [id number]] [place] [address] Accession [UID]: [id number] [[id number]] Receiv ed: May 09, 2022@01:35 Collection sample: BLOOD Collection date: Apr 05:30 Provider: CODIE LEON Comment on specimen: LEFT ARM, RECEIVED 2 BLOOD CULTURE BOTTLES Test(s) ordered: CULTURE & SUSCEPTIBILITY...... 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 R TRIMETH/SULFA................. S TETRACYCLINE.................. S CLINDAMYCIN................... S RIFAMPIN...................... S VANCOMYCIN.................... S Bacteriology Remark(s): VANCOMYCIN SHAMIKA: <=0.5 ug/mL THIS REPORT IS FINAL =--=--=--=--=--=--=--=--=--=--=--=--=--= --=--=--=--=--=--=--=--=--=--=--=--=-- Performing Laboratory: Bacteriology Report Performed By: [facility] [CLIA# [id number]] [place] [address] May 08, 2022 03:23 PM LR MICROBIOLOGY REPORT: [facility] Reporting Lab: [facility] [CLIA# [id number]] [place] [address] Accession [UID]: [id number] [[id number]] Receiv ed: May 08, 2022@15:41 Collection sample: BLOOD Collection date: Apr 15:23 Provider: CODIE LEON Comment on specimen: LEFT ARM, RECEIVED 2 BLOOD CULTURE BOTTLES Test(s) ordered: CULTURE & SUSCEPTIBILITY...... completed: May 10, 2022 * BACTERIOLOGY FINAL REPORT => May 10, 2022 16:3 1 TECH CODE: [id number] CULTURE RESULTS: GROWTH SAME THAT OF ANOTHER CULTURE Comment: FOR SUSCEPTIBILITY REPORT SEE PREVIOUS POSITIVE SAME MB 22 [id number] ( 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 from Anaerobic bottle ) ( Recovered from Aerobic bottle ) Bacteriology Remark(s): THIS REPORT IS FINAL =--=--=--=--=--=--=--=--=--=--=--=--=--= --=--=--=--=--=--=--=--=--=--=--=--=-- Performing Laboratory: Bacteriology Report Performed By: [facility] [CLIA# [id number]] [place] [address] May 08, 2022 03:21 PM LR MICROBIOLOGY REPORT: [facility] Reporting Lab: [facility] [CLIA# [id number] 147] [place] [address] Accession [UID]: [id number] [[id number]] Receiv ed: May 08, 2022@15:40 Collection sample: BLOOD Collection date: Apr 15:21 Provider: CODIE LEON Comment on specimen: RT ARM, RECEIVED 2 BLOOD CU LTURE BOTTLES Test(s) ordered: CULTURE & SUSCEPTIBILITY...... completed: May 10, 2022 * BACTERIOLOGY FINAL REPORT => May 10, 2022 16:3 1 TECH CODE: [id number] CULTURE RESULTS: GROWTH SAME THAT OF ANOTHER CULTURE Comment: FOR SUSCEPTIBILITY REPORT SEE PREVIOUS POSITIVE SAME MB 22 [id number] ( 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 from Anaerobic bottle ) ( Recovered from Aerobic bottle ) Bacteriology Remark(s): THIS REPORT IS FINAL =--=--=--=--=--=--=--=--=--=--=--=--=--= --=--=--=--=--=--=--=--=--=--=--=--=-- Performing Laboratory: Bacteriology Report Performed By: [facility] [CLIA# [id number]] [place] [address] May 07, 2022 05:30 AM LR MICROBIOLOGY REPORT: [facility] Reporting Lab: [facility] [CLIA# [id number] 147] [place] [address] Accession [UID]: [id number] [[id number]] Receiv ed: May 07, 2022@01:35 Collection sample: [...] REPORT SEE PREVIOUS POSITIVE SAME MB 22 03461 ( 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 from Aerobic bottle ) ( Recovered from Anaerobic bottle ) Bacteriology Remark(s): THIS REPORT IS FINAL =--=--=--=--=--=--=--=--=--=--=--=--=--= --=--=--=--=--=--=--=--=--=--=--=--=-- Performing Laboratory: Bacteriology Report Performed By: [facility] [CLIA# [id number]] [place] [address] May 06, 2022 10:51 AM LR MICROBIOLOGY REPORT: [facility] Reporting Lab: [facility] [CLIA# [id number] 147] [place] [address] Accession [UID]: [id number] [[id number]] Receiv ed: May 06, 2022@11:32 Collection sample: [...] --=--=--=--=--=--=--=--=--=--=--=--=-- Performing Laboratory: Bacteriology Report Performed By: [facility] [CLIA# [id number]] [place] [address] May 06, 2022 10:34 AM LR MICROBIOLOGY REPORT: [facility] Reporting Lab: [facility] [CLIA# [id number] 147] [place] [address] Accession [UID]: [id number] [[id number]] Receiv ed: May 06, 2022@10:51 Collection sample: BLOOD Collection date: Apr 10:34 Provider: MODESTA VILLANUEVA Comment on specimen: RECEIVED 2 BLOOD CULTURE [facility] Test(s) ordered: CULTURE & SUSCEPTIBILITY...... completed: May 07, 2022 * BACTERIOLOGY FINAL REPORT => May 08, 2022 08:3 0 TECH CODE: [id number] CULTURE RESULTS: STAPHYLOCOCCUS AUREUS METHICILL IN RESISTANT [...] --=--=--=--=--=--=--=--=--=--=--=--=-- Performing Laboratory: Bacteriology Report Performed By: [facility] [CLIA# [id number]] [place] [address] May 06, 2022 10:00 AM LR MICROBIOLOGY REPORT: [facility] Reporting Lab: [facility] [CLIA# [id number] 147] [place] [address] Accession [UID]: [id number] [[id number]] Receiv ed: May 06, 2022@10:41 Collection sample: [...] SUSCEPTIBILITY REPORT SEE PREVIOUS POSITIVE SAME 22 06870 ( 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 from Anaerobic bottle ) ( Recovered from Aerobic bottle ) Bacteriology Remark(s): THIS REPORT IS FINAL =--=--=--=--=--=--=--=--=--=--=--=--=--= --=--=--=--=--=--=--=--=--=--=--=--=-- Performing Laboratory: Bacteriology Report Performed By: [facility] [CLIA# [id number]] [place] [address]
--- OUTSIDE RECORDS SUMMARY | 2022-05-15 09:41 | XMS_ITS | Clinical Summary ---
:1935 Author Organization [employer] [facility] [place] [address] Care Team Providers Name Role Phone Ron Berkowitz MD Primary Care Provider [phone] Allergies No known active allergies Medications [...] encounter (HC) durable medical Soft Back Brace, Director Of Special Events [facility] 1 Each 0 Active equipment Length [...] report s are released immediately into your [facility] medical record. ??You may view this report [...] provider. If you have questions, please contact [facility] care provider. Indication: Closed compression fracture of [...] Group MEDICARE PART B MEDICARE PART B [id number] 2000-[employer] ATTN: CLAIMS - HB USE ONLY HB ONLY t [address] [place] [address] MEDICARE PART A MEDICARE PART A [id number] 2000-[employer] ATTN: CLAIMS - HB USE ONLY HB ONLY t [address] [place] [address] [employer] [place] BL[employer] CROSS [id number] 2016-[employer] [address] [address] [place], [place] ONLY [id number] [employer] BL[employer] CROSS [id number] 2016-[employer] [address] [address] [place], [place] ONLY [id number] Advance Directives Latest Code Status on File Code Status Date Activated Date Inactivated Comments Full Code 03/07/2021 10:36 AM 03/09/2021 4:18 PM Code Status Discussion: Not Discussed Care Teams Welding Process Specialist Relationship Specialty Start Date End Date Ron Berkowitz MD PCP - General Family Practice 09/22/201999 [place] [address]
== END 2022-05-01 08:13 | disposition home or self-care (01) ==
LOC: AMB 05-15 09:08
PROVIDERS: PCP Family Medicine; Visit Provider Family Medicine
DX: R41.82 Altered mental status, unspecified (principal)
CPT/HCPCS: A0425; A0427

== ENCOUNTER 2022-05-01 08:42 | Observation (INO) | payer OTHER, MEDICARE, BC, SELFPAY ==
[2022-05-01] VITALS (10 sets, daily range): BP systolic 104–138; BP diastolic 49–126; PULSE 64–90; RESP 12–16; TEMP 35.9–36.9; O2SAT 93–99; BMI 36.2
--- NOTE | 2022-05-01 08:47 | CRLHL7_ITS ---
For Patients: As a result of the Century Cures Act, medical imaging exams and procedure reports are released immediately into your electronic medical record. You may view this report before your referring provider. If you have questions, please contact your health care provider. INDICATION: Fall TECHNIQUE: CT head without contrast. COMPARISON: Head CT 12/29/2021 FINDINGS: CSF spaces: Within normal limits for age. Brain parenchyma: No intracranial bleed or mass effect. Mild cerebral atrophy with minimal low-density in the deep white matter. Skull base and calvarium: The visualized paranasal sinuses and mastoid air cells demonstrate no acute or significant findings. The visualized orbits are grossly unremarkable. No skull fractures. IMPRESSION: 1. No intracranial bleed or mass effect. 2. Mild cerebral atrophy with nonspecific white matter disease, likely microangiopathy. Please note that all CT scans at this facility use dose modulation, iterative reconstruction, and/or weight-based dosing when appropriate to reduce radiation dose to as low as reasonably achievable. Dictated by Joe Patricio MD @ 05/01/2022 9:41:23 AM (Electronically Signed)
--- NOTE | 2022-05-01 08:47 | CRLHL7_ITS ---
For Patients: As a result of the Cures Act, medical imaging exams and procedure reports are released immediately into your electronic medical record. You may view this report before your referring provider. If you have questions, please contact your health care provider. INDICATION: Fall TECHNIQUE: CT cervical spine without contrast. COMPARISON: None FINDINGS: Vertebrae: Alignment is normal. There are no fractures or suspicious bony lesions. Discs and facet joints: Facet hypertrophy C2-3 with mild right foraminal stenosis. Facet hypertrophy with posterior osteophyte at C3-4 causing moderate left foraminal stenosis. Facet hypertrophy with posterior osteophytes C4-5 causing mild right foraminal stenosis. Facet hypertrophy C5-6, C6-7 and C7-T1 without significant stenosis. Extraspinal findings: Ossicle nuchal ligament. IMPRESSION: Multilevel degenerative changes cervical spine without evidence of cervical spine fracture. Please note that all CT scans at this facility use dose modulation, iterative reconstruction, and/or weight-based dosing when appropriate to reduce radiation dose to as low as reasonably achievable. Dictated by Joe Patricio MD @ 05/01/2022 9:44:25 AM (Electronically Signed)
[2022-05-01 09:03] LABS: Basophils Absolute Auto 0.02 K/uL (0.00-0.30); Basophils Percent Auto 0.2 % (0.0-3.0); Eosinophils Percent Auto 2.2 % (0.0-7.0); Hematocrit 38.1 % (37.0-53.0); Hemoglobin* 12.6 gm/dL (13.5-17.5); Lymphocytes Percent Auto 12.9 % (20-44); Mean Corpuscular HGB Conc 33 gm/dL (32-36); Mean Corpuscular Hemoglobin 31 pg (26-34); Mean Corpuscular Volume 95 fL (80-100); Monocytes Percent Auto 6.5 % (0.0-11.0); Neutrophils Percent Auto 77.1 % (42.0-72.0); Platelet Count* 293 K/uL (140-440); RDW Coefficient of Variation % 14.4 % (11.5-15.5); Red Blood Count 4.01 m/uL (4.30-5.90); White Blood Count* 9.17 K/uL (4.50-11.00)
[2022-05-01 09:08] LABS: Slide Review Reflex No
[2022-05-01 09:29] LABS: INR 1.36 (0.91-1.10); Prothrombin Time 17.2 Seconds
[2022-05-01 09:30] LABS: Partial Thromboplastin Time* 38 Seconds (23-33)
[2022-05-01 09:35] LABS: Chloride* 105 mmol/L (96-114); Sodium* 137 mmol/L (135-149)
[2022-05-01 09:36] LABS: Potassium* 3.8 mmol/L (3.6-5.1)
[2022-05-01 09:38] LABS: Carbon Dioxide* 21 mmol/L (20-32); Creatinine* 1.3 mg/dL (0.5-1.5); Estimated Glomerular Filt Rate 54 ml/min
[2022-05-01 09:39] LABS: Blood Urea Nitrogen* 26 mg/dL (7-30); Glucose* 215 mg/dL (60-115)
[2022-05-01 09:43] LABS: Ethanol* < 0.01 % (0.01-0.03)
[2022-05-01 09:58] LABS: PCR FLU A Negative PCR FLU A (Negative); PCR FLU B Negative PCR FLU B (Negative); PCR RSV Negative PCR RSV (Negative); SARS PCR* Negative SARS-CoV-2 (Negative)
--- OUTSIDE RECORDS SUMMARY | 2022-05-01 10:18 | XMS_ITS | Clinical Summary ---
:1935 Author Organization [facility] [place] [address] Care Team Providers Name Role Phone Ron Berkowitz MD Primary Care Provider [phone] Allergies No known active allergies Medications Medication Sig Dispensed Refills Start End Date Status Date allopurinoL Take 1 tablet 0 Acti ve (ZYLOPRIM) 100 mg by mouth once 0 tablet daily. atorvastatin Take 5 mg by 0 Acti ve (LIPITOR) 10 mg mouth every 0 tablet morning. Take .5 tablet 1x daily. finasteride Take 1 tablet 0 Acti ve (PROSCAR) 5 mg by mouth every 0 tablet morning. glipiZIDE Take 1 tablet 0 Active (GLUCOTROL) 10 mg by mouth once 0 tablet daily before a meal. metFORMIN Take 850 mg by 0 Activ e (GLUCOPHAGE) 850 mg mouth 3 times 0 tablet daily with meals. pioglitazone Take 1 tablet 0 Act shyann (ACTOS) 30 mg by mouth once 0 tablet daily. furosemide (LASIX) Take 20 mg by 0 Active 20 mg tablet mouth every 0 morning. Okay to take an extra dose as needed for swelling cholecalciferol Take 2,000 0 Act shyann (Vitamin D) 1,000 units by mouth unit tablet once daily. metoprolol tartrate Take 0.5 0 Active (LOPRESSOR) 100 mg Tablets (50 mg) 1 tabletIndications: by mouth 2 Persistent atrial times daily. fibrillation (HC) rivaroxaban Take 1 Tablet 0 Acti ve (Xarelto) 10 mg (10 mg) by 1 tablet mouth once daily. calcitonin salmon, 0 A ctive 200 units per 2 actuation, nasal (MIACALCIN, FORTICAL) 200 unit/actuation nasal spray cyanocobalamin Take 2 Tablets 0 Active (VITAMIN B12) 100 by mouth once 2 mcg tablet daily. doxycycline TAKE 1 CAPSULE 0 Act shyann (VIBRAMYCIN) 100 mg BY MOUTH DAILY 2 capsule FOR 10 DAYS nystatin Apply topically 0 Acti ve (MYCOSTATIN) cream to affected 2 area(s). Nystop powder APPLY TOPICALLY 0 Active TWICE DAILY 2 magnesium citrate DRINK 296 ML BY 0 Active (CITRATE OF MAG) MOUTH ONCE 2 SSD 1 % cream APPLY TOPICALLY 0 Active TO THE AFFECTED 2 AREA TWICE DAILY durable medical TLSO for T11 1 Each 0 A ctive equipment compression 2 (DME)Indications: fracture. Closed wedge compression fracture of T11 vertebra, initial encounter (HC) durable medical Soft Back Brace, [facility] 1 Each 0 Active equipment Length of use: 99 months 2 (DME)Indications: Closed wedge compression fracture of T11 vertebra with routine healing, subsequent encounter sertraline (ZOLOFT) Take 1 Tablet 0 Active 50 mg tablet (50 mg) by 2 mouth once daily. lidocaine 5 % Apply on dry, 30 Patch 11 Ac tive topical patch clean, hairless 2 skin. Apply 1 patch to painful area of skin for up to to 12 hours within 24 hour period. melatonin 3 mg Take 1 Tablet 0 A ctive tablet (3 mg) by mouth 2 once daily. oxyCODONE 0 04/16/20 Discontinu ed (ROXICODONE) 5 mg 2 22 (* Med immediate release co mplete/Regime tablet n complete/L evel of care ch rubi) oxyCODONE Take 1-2 100 Tablet 0 04/16/20 Discontin ued (ROXICODONE) 5 mg Tablets (5-10 2 22 (*Med immediate release mg) by mouth complete/Regime tabletIndications: every 4 hours n Closed wedge if needed for com plete/Level compression Pain. of care change) fracture of T11 vertebra, initial encounter (HC) Active Problems Problem Noted Date E. coli septic shock (HC) history 12/202012/17/2020 Overview: 2nd episode Atrial fibrillation BPH (benign prostatic hyperplasia) Chronic kidney disease Diabetes mellitus Diastolic heart failure HLD (hyperlipidemia) Prostatitis Sleep apnea Encounters Date Type Specialty Care Team Description 04/30/2022 Lab Requisition James Renee MD 04/16/2022 Ancillary Procedure 04/16/2022 Office Visit Gumaro Zaman MD (Follow up back injury, T11 compression fracture, DOI: 02/05/22) 04/16/2022 Travel 03/19/2022 Ancillary Procedure 03/19/2022 Office Visit Gumaro Zaman MD (Follow up back injury, T11 compression fracture, DOI: 02/05/22) 03/19/2022 Travel 03/06/2022 Telephone Gumaro Zaman MD 03/05/2022 Ancillary Procedure 03/05/2022 Office Visit Gumaro Zaman MD (Follow up back injury, T11 compression fracture, DOI: 02/05/22) 03/05/2022 Travel 03/02/2022 Telephone Gumaro Zaman Appointment Rafael vasquez (Call MD Shivam back ) 02/26/2022 Telephone Aaron Moreno Appointment Christi Ayers MD (03/07) 02/23/2022 Ancillary Procedure 02/23/2022 Office Visit Gumaro Zaman MD (Follow up back injury, T11 compression fracture, DOI: 02/05/22) 02/23/2022 Travel 02/16/2022 Telephone Gumaro Zaman back sylvia Langley MD 02/15/2022 Ancillary Procedure 02/15/2022 Ancillary Procedure 02/15/2022 Office Visit Gumaro Zaman MD (Follow up back pain, patient did fal l on 02/05/22) 02/15/2022 Travel from Last 3 Months Immunizations Name Administration Dates Next Due COVID-19 vaccine (Pfizer-BioNTech 30mcg/0.3mL) IFEANYI AGUILERA 10/12 Social History Tobacco Use Types Packs/Day Years Used Date Never Smoker Smokeless Tobacco: Never Used Tobacco Cessation: Counseling Given: Yes Comments: no exposure Alcohol Use Standard Drinks/Week Comments Not Currently 0 (1 standard drink = 0.6 oz pure alcoho l) Alcohol Habits Answer Date Recorded How often do you have a drink containing alcohol? Never 02/08/2021 How many drinks containing alcohol do you have on a typical Not asked day when you are drinking? How often do you have six or more drinks on one occasion? No t asked Comment: Not asked Sex Assigned at Date Recorded Not on file COVID-19 Exposure Response Date Recorded In the last 10 days, have you been in contact with No / Unsu re 04/16/2022 11:00 AM CDT someone who was confirmed or suspected to have Coronavirus/COVID-19? Obstetrics History Last Filed Vital Signs Vital Sign Reading Time Taken Comments Blood Pressure 121/81 04/16/2022 11:26 AM CDT Pulse 66 04/16/2022 11:26 AM CDT Temperature 36.4 ??C (97.6 ??F) 04/16/2022 11:26 AM CDT Respiratory Rate 22 04/05/2021 8:12 AM CDT Oxygen Saturation 97% 04/16/2022 11:26 AM CDT Inhaled Oxygen Concentration - - Weight 130.1 kg (286 lb 12.8 oz) 02/15/2022 9:48 AM CDT shoes on Height 189.2 cm (6' 2.5) 03/07/2021 10:29 AM CDT Body Mass Index 36.33 03/07/2021 10:29 AM CDT Plan of Treatment Health Maintenance Due Date Last Done Comments Pneumococcal series for age 65+ (1 - PCV) 10/26/1941 Tdap 10/26/1946 Depression screening for age 12+ 1947 Tetanus booster 1955 Zoster (shingles) series for age 50+ (1 of 10/26/1985 2) Medicare Wellness for age 65+ 10/26/2000 BMI (ht and wt on same day) for age 18+ 05/12/2021 05/12/20 20 Influenza for age 65+ 04/19/2022 COVID-19 vaccine series (3 - Booster for 06/11/2022 05/24/2 022, 10/12/2020 Pfizer series) Procedures Procedure Name Priority Date/Time Associated Diagnosis Comme nts XR SPINE THORACOLUMBAR Routine 04/16/2022 12:15 Closed wedge R esults for this 2 VIEWS PM CDT compression fracture procedu re are in of T11 vertebra with the res ults routine healing, section. subsequent encounter XR SPINE THORACOLUMBAR Routine 03/19/2022 3:20 Closed wedge Re sults for this 2 VIEWS PM CDT compression fracture procedu re are in of T11 vertebra with the res ults routine healing, section. subsequent encou nter Spinal stenosis of lumbar region with neurogenic claudication XR SPINE THORACOLUMBAR Routine 03/05/2022 3:45 Closed wedge Re sults for this 2 VIEWS PM CDT compression fracture procedu re are in of T11 vertebra with the res ults routine healing, section. subsequent encou nter Spinal stenosis of lumbar region with neurogenic claudication Bilateral leg weakness XR SPINE THORACOLUMBAR Routine 02/23/2022 2:12 Closed wedge Re sults for this 2 VIEWS PM CDT compression fracture procedu re are in of T11 vertebra with the res ults routine healing, section. subsequent encounter MR SPINE LUMBAR WO CHRISTOPHER 02/15/2022 12:30 Closed wedge Resul ts for this PM CDT compression fracture procedu re are in of T11 vertebra, the results initial encounter section. (HC) Lumbar facet arthropathy XR SPINE THORACOLUMBAR Routine 02/15/2022 10:41 Closed wedge R esults for this 2 VIEWS AM CDT compression fracture procedu re are in of T11 vertebra, the results initial encounter section. (HC) from Last 3 Months Results XR SPINE THORACOLUMBAR JUNCTION MINIMUM OF 2 VIEWS (04/16/2022 12:15 PM CDT)Only the most recent of5 resultswithin the time period is included. Anatomical Region Laterality Modality Spine, THORACIC SPINE Computed Radiograp hy Specimen (Source) Anatomical Collection Method Collection Time Re ceived Time Location / / Volume Laterality 04/16/2022 5:16 PM CDT Narrative 04/16/2022 5:16 PM CDT For Patients: ??As a result of the Cures Act, medical imaging exams and procedure report s are released immediately into your [facility] medical record. ??You may view this report before your referring provider. ??If you have questions, please contact your health care provider. Indication: Closed compression fracture of the T11 v ertebral body. Technique: Two views. Comparison: 03/19/2022.. Findings/Impression: No change in appearance of the T11 compr ession fracture with near complete vertebral height loss anteriorly. Focal kyphosis at the T11 level. Stable reactive changes in the superior endplate of T12. Gen eralized osseous demineralization. Mild multilevel degenerative disc disease. Aortic atherosclerosis. Lumbar dextrocurvature. Dictated by Joe Lisa MD @ Apr 16 ??5:16PM (Electronically Signed) ?? Procedure Note Joe Lisa MD - 04/16/2022Form atting of this note might be different from the original. For Patients: As a result of the Cures Act, medical imaging exams and procedure reports are released immediately into your electronic medical record. You may view this report before your referring provider. If you have questions, please contact [facility] care provider. Indication: Closed compression fracture of the T11 v ertebral body. Technique: Two views. Comparison: 03/19/2022.. Findings/Impression: No change in appearance of the T11 compr ession fracture with near complete vertebral height loss anteriorly. Focal kyphosis at the T11 level. Stable reactive changes in the superior endplate of T12. Generalized osseous demineralization. Mild multilevel degene rative disc disease. Aortic atherosclerosis. Lumbar dextrocurvature. Dictated by Joe Lisa MD @ Apr 16 5:16PM (Electronically Signed) Gumaro Zaman MD GENERAL IMAGING MR SPINE LUMBAR WO (02/15/2022 12:30 PM CDT) Anatomical Region Laterality Modality Spine, LUMBAR SPINE Magnetic Resonance Specimen (Source) Anatomical Location Collection Method / Collectio n Time Received Time / Laterality Volume Narrative 03/06/2022 10:51 AM CDT For Patients: As a result of the Cures Act, medical imaging exams and procedure reports are released immediately into your electronic medical record. ??You may view this repo rt before your referring provider. ?? If you have questions, please contact yo ur health care provider. Indication: Fall. Low back pain. Technique: T2, T1, and STIR sagittal as well as T1 and T2 axial sequences were obtained. No IV contrast. Comparison: X-rays earlier on 02/15/2022. Findings: There is moderate wedge compression of t he T11 vertebral body with vacuum phenomenon. Marrow edema suggests this i s a recent or active insult. Mild chronic compression is seen along t he superior endplate of the L5 vertebral body. No additional evidence for recent fractu re, worrisome bone lesion or pars defect. Mildly exaggerated kyphosis in the lower thoracic region in association with the T11 fracture. There is severe central canal stenosis a t L3-4, and moderately severe central canal compromise at L4-5. There is some associated tortuosity of the cauda equina nerve roots. The conus medullaris is unremarkable, wi th the tip of the cord at the L1 level. No paraspinal pathology is identified. T11-12: Moderate disc and bilateral face t degenerative changes. Mild narrowing of the central canal and both neural foramina. T12-L1: The disc and facets are negative . The foramina are patent. L1-2: The disc and facets are negative. The foramina are patent. L2-3: Mild disc and bilateral facet dege nerative changes with low-grade foraminal narrowing. L3-4: Advanced bilateral facet osteoarth ritis with a tiny effusion on the right. Mild disc degeneration. Severe ce ntral canal stenosis. Moderate foraminal narrowing. L4-5: Advanced bilateral facet osteoarth ritis with small facet joint effusions. There is also a 4 millimeter intraspinal synovial cyst along the medial margin of the left facet join t. Moderately severe narrowing of the central spinal canal. Moderate narro wing of both neural foramina. L5-S1: Severe bilateral facet osteoarthr itis. Medial spurring off the right facet joint causes moderate narrow ing of the right subarticular recess and potential impingement on the right S1 nerve root. Mild foraminal narrowing. Impression: 1. Moderate recent wedge compression of the T11 vertebral body. No compromise of the spinal canal or conus medullaris at this time. 2. 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 3. At L5-S1 there is medial spurring off the degenerated right facet joint, causing lateral recess stenosis a nd potential right S1 root impingement. Dictated by Seng Fisher MD @ 022 1:03:10 PM Signed by: Seng Fisher MD @ 1:03:10 PM Gumaro Zaman MD MR from Last 3 Months Insurance Payer Benefit Plan / Subscriber ID Effective Dates Phone Addre ss Type Group MEDICARE PART B MEDICARE PART B [id number] 2000-Presen ATTN: CLAIMS - HB USE ONLY HB ONLY t [address] [facility] [place] [address] MEDICARE PART A MEDICARE PART A [id number] 2000-Presen ATTN: CLAIMS - HB USE ONLY HB ONLY t [address] [place] [address] BLUE CROSS MR BLUE CROSS [id number] 2016-Presen [address] [address] [place] [id number] [employer]OSS BLUE CROSS [id number] 2016-[place]en [address] [address] [place], [place] [id number] Advance Directives Latest Code Status on File Code Status Date Activated Date Inactivated Comments Full Code 03/07/2021 10:36 AM 03/09/2021 4:18 PM Code Status Discussion: Not Discussed Care Teams Mica Plate Layer Hand Relationship Specialty Start Date End Date Ron Berkowitz MD PCP - General Family Practice 09/22/201999 [place] [address]
--- OUTSIDE RECORDS SUMMARY | 2022-05-01 10:19 | XMS_ITS | Encounter Summary ---
:1935 Author Organization [facility] rs Address [address] [place] [address] Support Name Relationship Address Phone WADE LORENZO Unavailable [address] [place] [address] WADE LORENZO Unavailable [address] [place] [address] ARACELI MARSHALL Unavailable [address] [place] [address] ARACELI MARSHALL Unavailable [address] [place] [address] Insurance Providers: All historical and current Section Date Range: From patient's date of to the date document was created.This section includes the names of all active insurance providers for the patient. Insurance Type of Plan Start of End of Group Member Insurance Policy P atient's Provider Coverage Name Policy Policy Number ID Provider's Bales's Relationship Coverage Coverage Telephone Name to Policy Number Bales [place] M[place] Aug 19, [id number] Kristel [facility] (WNR) ADVANTAGE (WNR) 2016 8 [id number] [phone] [facility] 1 [place] MEDICARE M[place] Aug 19, [id number] Kristel [facility] (WNR) ADVANTAGE (WNR) 2017 03 [id number] [phone] [facility] 1 Selected Encounter This section includes the information on record at [place] for the Encounter. Date/Time Encounter Type Encounter Description Reason Provider Source Jun 28, 2021 02:25 Outpatient Encounter TELEPHONE PRIMARY CARE IHE Encounter Template Text not used by [place] Plan of Treatment: Future Appointments (+ 6 months) and Future Tests (+/- 45 days) The Plan of Treatment section includes future care activities for the patient from [facility] [place] [facility] This section includes future appointments and future orders which are active, pending orscheduled.Future Appointments This section includes appointments that were scheduled to occur 6 months from the date of the Encounter, up to a maximum of 20 appointments. The data comes from all [place] treatment facilities. Appointment Date/Time Appointment Type Appointment Facili ty Name Jul 17, 2021 11:00 AM AMBULATORY - MEDICINE [facility] Sep 20, 2021 06:45 AM AMBULATORY - NONE [facility] Sep 20, 2021 07:45 AM AMBULATORY - MEDICINE [facility] December 19, 2021 11:01 AM AMBULATORY - NONE [facility] December 20, 2021 06:45 AM AMBULATORY - NONE [facility] Lab Results: +/- 30 days of the encounter This section includes the Chemistry and Hematology Lab Results on record with [facility] for the patient. Radiology Reports and Pathology Reports are provided separately, in subsequent sections.Lab Results This section contains the Chemistry/Hematology Results that were resulted 30 days before or 30 daysafter the date of the Encounter. Date/Time Source Result Type Result - Unit Interpretation Reference Range Comment Jul 17, 2021 [facility] MICROALBUMIN/CREATININE RATIO Specimen Type: URINE 11:06 AM URINE No comment enter ed. Ordering Provid er: BILL ROONEY Report Released Date/Time: Jul 06, 2021 05:15 PM Reporting Lab: [facility] [address] [facility] [address] Performing Lab: [facility] [address] CREATININE,UR RANDOM 94.9 58.0-161. 0 ALB/CREAT RATIO,UR 122.8 H <29.9 MICROALBUMIN,UR 116.5 H <29.9 Jun 21, 2021 06:43 [facility] HEMOGLOBIN A1C Specimen Type: BLOOD AM No comment enter ed. Ordering Provid er: BILL ROONEY Report Released Date/Time: Mar 22, 2021 08:23 AM Reporting Lab: [facility] [address] [facility] [address] Performing Lab: [facility] [address] [facility] [address] [facility] [address] HEMOGLOBIN A1C 7.7 H 4.0-6.0 Jun 21, 2021 06:43 AM [facility] CBC Specim en Type: BLOOD No comment enter ed. Ordering Provid er: BILL ROONEY Report Released Date/Time: Mar 22, 2021 11:13 AM Reporting Lab: [facility] [id number] Performing Lab: [facility] [address] WBC 6.71 4.0-11.0 RBC 3.68 L 4.6-6.2 HGB 10.8 L 13.5-17.9 HCT 34.7 L 41-54 MCV 94.3 80-100 MCH 29.3 27-33 MCHC 31.1 L 32.0-37.5 PLT 249 150-400 MPV 10.0 7.4-10.4 RDW 15.0 H 11.5-14.5 Jun 21, 2021 [facility] BASIC METABOLIC Specimen Typ e: PLASMA 06:43 AM PANEL+MG No comment enter ed. Ordering Provid er: BILL ORONEY Report Released Date/Time: Mar 22, 2021 08:23 AM Reporting Lab: [facility] [address] Performing Lab: [facility] [address] CREATININE 1.4 H 0.7-1.2 UREA NITROGEN 17 8-26 GLUCOSE 176 H 74-100 SODIUM 141 136-145 POTASSIUM 3.9 3.5-5.1 CHLORIDE 110 H 98-107 CO2 21 L 22-29 CALCIUM 9.0 8.4-10.2 MAGNESIUM 1.7 1.6-2.6 ANION GAP 10 5-15 ESTIMATED GFR(eGFR) 48 L >60 Social History: Smoking Status (Most current) and Tobacco Use (All prior to encounter date) This section includes the most current, and the historical, smoking and tobacco-related health factors from the [place] facility where the Encounter took place.Current Smoking Status This section includes the most current smoking, or tobacco-related health factor, from the [place] facility where the Encounter took place. Date/Time Current Smoking Status Comment Facility Mar 22, 2021 07:45 AM VA-TOBACCO NEVER USED [place] [facility] Tobacco Use History This section includes a history of the smoking, or tobacco- related health factors, that were collected on or before the date of the Encounter. The data comes from the [place] facility where the Encounter took place. Date/Time Smoking Status/Tobacco Use Comment Xavi chanel Oct 02, 2019 10:02 AM VA-TOBACCO NEVER USED [place] [facility] May 21, 2018 09:05 AM [place]-TOBACCO NEVER USED [place] [facility] December 25, 2017 06:14 PM INPT NO TOBACCO USE IN LAST 30 DAYS [facility] Oct 01, 2017 07:34 AM LIFETIME NON-TOBACCO USER [facility] Sep 28, 2016 08:44 AM LIFETIME NON-TOBACCO USER [facility] Oct 14, 2015 07:52 AM LIFETIME NON-TOBACCO USER [facility] Oct 11, 2014 07:59 AM LIFETIME NON-TOBACCO USER [facility] January 15, 2007 07:55 AM LIFETIME NON-TOBACCO USER [facility] Advance Directives: All historical and current Section Date Range: From patient's date of to the date document was created. This section includes ALL of a patient's completed or amended [place] Advance and Rescinded Directives. The entries below indicate that a directive exists for the patient, but an actual copy is not included with this document. The data comes from all [place] facilities. Date Advance Directives Provider Source Apr 18, 2018 ADVANCE DIRECTIVE LARISSA SIGALA [facility] Apr 18, 2018 ADVANCE DIRECTIVE DISCUSSION RAE SIGALAN [facility] December 23, 2017 CLINICAL WARNING FARHAT [facility] May 11, 2003 ADVANCE DIRECTIVE BERT CASILLAS [facility] Encounter Notes: All associated encounter notes This section contains the clinical notes associated to the Encounter. Date/Time Encounter Note(s) Provider Source Jun 28, 2021 02:28 PM REPORT OF CONTACT: ZARA SONI [facility] LOCAL TITLE: PATIENT CONTACT NOTE STANDARD TITLE: REPORT OF CONTACT DATE OF NOTE: JUN 28, 2021@14:28 ENTRY DATE: JUN 28, 2021@14:28:57 AUTHOR: ZARA SONI EXP COSIGNER: URGENCY: STATUS: COMPLETED SUBJECT: COVID-19 PREVENTIVE HEALTH INVENTORY Patient contact Name of : NUNULUISANA Name/Relationship of Contact if other than Veter an: Date & Time of Contact: Jun@14:29 Type of Contact: Telephone Reason for Contact: [facility] PREVENTIVE HEALTH SCREENING Configuration Management Specialist attempted to contact via telephon e x 1 as part of the [facility]CT COVID-19 Preventative Health Screening Team to p erform [facility] Preventative Health Screenings as indicated by [facility] Team. No answer at home number or mobile number. Configuration Management Specialist left a general voicemail on mobile number stating no need to call back per [facility] Preventative Health pr otocol. [facility] Preventative Health Screening Team will attempt again at a la ter date. [facility] Preventive Health screenings can also be completed at Veter an's next office visit by [facility] Team if unable to reach [place] per ofelia wang. No further action is necessary at this time. /es/ ZARA SONI RN Signed: 06/28/2021 14:31
--- OUTSIDE RECORDS SUMMARY | 2022-05-01 10:19 | XMS_ITS | Encounter Summary ---
:1935 Author Organization [facility] rs Address [address] [place] [address] Support Name Relationship Address Phone WADE LORENZO Unavailable [address] [place] [address] WADE LORENZO Unavailable [address] [place] [address] ARACELI MARSHALL Unavailable [address] [place] [address] MARILIA MARSHALLA Unavailable [address] [place] [address] Insurance Providers: All historical and current Section [...] Number [place] MCR Aug [id number] Kristel EDDY [facility] (WNR) ADVANTAGE (WNR) 2017 8 [id number] [phone] [facility] 1 [place] Aug [id number] [facility] [facility]WNR[facility] 2017 03 [id number] [phone] [facility] 1 Selected Encounter This section includes the information on record at [place] for the Encounter. Date/Time Encounter Type Encounter Reason Provider Source Description Jun 21, 2021 OFFICE O/P EST PRIMARY ICD-10-CM BETH GUNTER 07:45 AM MOD 30-39 MIN CARE/MEDICINE I50.32 Chronic SSA L diastolic (congestive) heart failure with Provider Comments: Diastolic heart failure ([facility] [id number]) IHE Encounter Template Text not used by [place] Assessments - Encounter Diagnoses This section includes the primary and secondary diagnoses documented for the Encounter. Date/Time Primary/Secondary Diagnosis Name Provider Source Diagnosis Jun 21, 2021 PRIMARY Chronic BETH GUNTER 08:25 AM diastolic SSA L HCS (congestive) heart failure Plan of Treatment: Future Appointments (+ 6 months) and Future Tests (+/- 45 days) The Plan of Treatment section includes future care activities for the patient from all [place] treatmentfacilities. This section includes future appointments and future orders which are active, pending orscheduled.Future Appointments This section includes appointments that were scheduled to occur 6 months from the date of the Encounter, up to a maximum of 20 appointments. The data comes from all [place] treatment facilities. Appointment Date/Time Appointment Type Appointment Facili ty Name Jul 17, 2021 11:00 AM AMBULATORY - [facility] Sep 20, 2021 06:45 AM [facility] - [facility] Sep 20, 2021 07:45 AM AMBULATORY - [facility]IC[facility] December 19, 2021 11:01 AM AM[facility]ULATORY - [facility] Lab Results: +/- 30 days of the encounter This section includes the Chemistry and Hematology Lab Results on record with [place] for the patient. Radiology Reports and Pathology Reports are provided separately, in subsequent sections.Lab Results This section contains the Chemistry/Hematology Results that were resulted 30 days before or 30 daysafter the date of the Encounter. Date/Time Source Result Type Result - Unit Interpretation Reference Range Comment Jul 17, 2021 [facility] MICROALBUMIN/CREATININE RATIO Specimen Type: URINE 11:06 AM URINE No comment enter ed. Ordering Provid er: TORIBIOBILL Felipe Report Released Date/Time: Jul 06, 2021 05:15 PM Reporting Lab: [facility] [address] [facility] [id number] Performing Lab: [facility] ONE [facility][NOTE 2] I CECY [facility] [id number] CREATININE,UR RANDOM 94.9 58.0-161. 0 ALB/CREAT RATIO,UR 122.8 H <29.9 MICROALBUMIN,UR 116.5 H <29.9 Jun 21, 2021 06:43 [facility] HEMOGLOBIN A1C Specimen Type: BLOOD AM No comment enter ed. Ordering Provid er: BILL GUNTER Report Released Date/Time: Mar 22, 2021 08:23 AM Reporting Lab: [facility] [address] [facility] [id number] Performing Lab: [facility] [address] [facility] [address] HEMOGLOBIN A1C 7.7 H 4.0-6.0 Jun 21, 2021 06:[address] [facility] CBC Specim en Type: BLOOD No comment enter ed. Ordering Provid er: BILL GUNTER Report Released Date/Time: Mar 22, 2021 11:13 AM Reporting Lab: [facility] [address] [facility] [address] Performing Lab: [facility] [address] [facility] [address] WBC 6.71 4.0-11.0 RBC 3.68 L 4.6-6.2 HGB 10.8 L 13.5-17.9 HCT 34.7 L 41-54 MCV 94.3 80-100 MCH 29.3 27-33 MCHC 31.1 L 32.0-37.5 PLT 249 150-400 MPV 10.0 7.4-10.4 RDW 15.0 H 11.5-14.5 Jun 21, 2021 [facility] BASIC METABOLIC Specimen Typ e: PLASMA 06:43 AM PANEL+MG No comment enter ed. Ordering Provid er: BILL GUNTER Report Released Date/Time: Mar 22, 2021 08:23 AM Reporting Lab: [facility] [address] [facility] [address] Performing Lab: [facility] [address] [facility] [address] CREATININE 1.4 H 0.7-1.2 UREA NITROGEN 17 8-26 GLUCOSE 176 H 74-100 SODIUM 141 136-145 POTASSIUM 3.9 3.5-5.1 CHLORIDE 110 H 98-107 CO2 21 L 22-29 CALCIUM 9.0 8.4-10.2 MAGNESIUM 1.7 1.6-2.6 ANION GAP 10 5-15 ESTIMATED GFR(eGFR) 48 L >60 Vital Signs: All taken on the encounter date This section contains inpatient and outpatient Vital Signs collected on the date of the Encounter. Date/Time Temperature Pulse Blood Respiratory SP02 Pain Height Weight Edvin dy Source Pressure Rate Mass Index Jun 21, 133/77 [place] 2020 07:50 mm[Hg] [facility] Jun 21, 95.2 F 97 154/82 16 /min 96 % 0 283.2 37 [place] 2020 07:47 /min mm[Hg] lb [facility] Social History: Smoking Status (Most current) and Tobacco Use (All prior to encounter date) This section includes the most current, and the historical, smoking and tobacco-related health factors from the [place] facility where the Encounter took place.Current Smoking Status This section includes the most current smoking, or tobacco-related health factor, from the [place] facility where the Encounter took place. Date/Time Current Smoking Status Comment Facility Mar 22, 2021 07:45 AM [place] Tobacco Use History This section includes a history of the smoking, or tobacco- related health factors, that were collected on or before the date of the Encounter. The data comes from the [place] facility where the Encounter took place. Date/Time Smoking Status/Tobacco Use Comment [facility] Oct 02, 2019 10:02 AM [place] [facility] May 21, 2018 09:05 AM [place]-TOBACCO [place] [facility] December 25, 2017 06:14 PM INPT NO TOBACCO USE IN LAST [address] [facility] Oct 01, 2017 07:34 AM LIFETIME NON-TOBACCO USER [facility] Sep 28, 2016 08:44 AM LIFETIME NON-TOBACCO USER [facility] Oct 14, 2015 07:52 AM LIFETIME NON-TOBACCO USER [facility] Oct 11, 2014 07:59 AM LIFETIME NON-TOBACCO USER [facility] January 15, 2007 07:55 AM LIFETIME NON-TOBACCO USER [facility] Advance Directives: All historical and current Section Date Range: From patient's date of to the date document was created. This section includes ALL of a patient's completed or amended [place] Advance and Rescinded Directives. The entries below indicate that a directive exists for the patient, but an actual copy is not included with this document. The data comes from all [facility]. Date Advance Directives Provider Source Apr 18, 2018 ADV[address]A [facility] Apr 18, 2018 ADVANCE DIRECTIVE DISCUSSION LARISSA SIGALA [facility] December 23, 2017 CLINICAL WARNING [facility] May 11, [address] B[address] [facility] Encounter Notes: All associated encounter notes This section contains the clinical notes associated to the Encounter. Date/Time Encounter Note(s) Provider Source Jun 21, 2021 08:14 AM INTERNAL MEDICINE NOTE: BILL GUNTER [facility] LOCAL TITLE: MEDICINE CLINIC NOTE STANDARD TITLE: INTERNAL MEDICINE NOTE DATE OF NOTE: JUN 21, 2021@08:14 ENTRY DATE: JUN 21, 2021@08:15 AUTHOR: BILL GUNTER EXP COSIGNER: URGENCY: STATUS: COMPLETED Assessment and plan: Type 2 diabetes mellitus goal A1c less than 8% ( age and renal function) -Regimen deescalated March 2021 secondary to re peated hypoglycemic episodes while A1c was in the 6% range -A1c 7.7% today. No changes to regimen made -Current regimen Metformin 500 mg twice daily Pioglitazone 30 mg every morning Glipizide 5 mg every morning -On BERE and statin -Foot exam up-to-date per podiatry -Encourage yearly eye exams. -A1c in 3 months prior to next appointment Elevated PSA with BPH Urinary outlet obstruction with bacterem ia requiring hospitalization January 2021 TURP February 2021 -follows with urology Dr Moreno at [facility] -Continue finasteride 5 mg daily Chronic kidney disease stage 3 - Creatinine at baseline today (1.4) Diastolic heart failure HTN Dyslipidemia Chronic atrial fibrillation -Managed by cardiology and in [facility] Dr. Chu is -Current regimen Metoprolol succinate 100 mg daily Rivaroxaban 20 mg daily Atorvastatin 10 mg daily Lasix 20 mg daily Mild anemia, asymptomatic -Repeat CBC in 3 months with iron studies -Patient entirely asymptomatic at this time. Con fryline attendant FIT card testing, UA, etc., pending follow-up testing corns and calluses Recent toenail injury -Continue follow-up with podiatry in the [facility] Dr. Sweeney -Continue intermittent prosthetics referrals for shoes Health maintenance: -Has aged out of routine colon cancer screening -PSA managed by community urology -Does not meet criteria for lung cancer screening as he is a lifelong non-smoker -Does not meet criteria for AAA screening RTC in 3 months for diabetic check in with A1c B MP and CBC prior. Nurse's notes reviewed from today. LUISANA EDDY is a 85 year old MALE with the following Chief complaint: Check-in on diabetes This is the best I felt in years. Has appointment coming up with a new office administration instructor. Also maintains a community primary care physicia n Dr. Berkowitz along with community urologist and distribution center assistant He is taking meds as prescribed. Dr. Berkowitz re started glipizide 5 mg daily Patient has had no polyuria polydipsia o r episodes of hypoglycemia of which he is aware Active problems - Computerized Problem List is t he source for the followin. Type 2 diabetes mellitus (SNOMED CT 87899182 ) 2. OBESITY, UNSP 3. Psoriasis * 4. Social and personal history finding - Lives alone. Has brother in [place]. Friends felipe breaux. 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 5. History of adenomatous polyp of colon - Last c-scope 05/09/15 at [place]. Two small polyp s. - 5 year follow up if appropriate. 6. Elevated PSA - follows with urology at [place] - with BPH on terazosin - February 2021: TURP at [place] 7. Chronic kidney disease stage 3 8. Diastolic heart failure - w/ HTN and dyslipidemia 9. Chronic atrial fibrillation - metoprolol and rivaroxaban 10. history of hospitalization - January 2021: Bacteremia secondary to urinary ou tflow obstruction from BPH - underwent a TURP at [facility] February 2021 11. corns and calluses - followed by podiatry in the community in [facility] 12. Gout - on allopurinol Family/social history: Lifelong non-smoker Nondrinker ROS as per HPI ow neg in 10 part ROS for acute c omplaints Allergies: SIMVASTATIN (Feb 29, 2004) CEPHALEXIN (Mar 01, 2004) Active and Recently Outpatient Medicatio ns (including Supplies): Active Outpatient Medications Status 1) ACCU-CHEK GUIDE (GLUCOSE) TEST STRIP USE 1 ST RIP ACTIVE TWICE WEEKLY TO CHECK BLOOD SUGAR--USE WITHIN 3 MINUTES OF REMOVING FROM CONTAINER 2) ALLOPURINOL 100MG TAB TAKE ONE TABLET BY MOUT H EVERY ACTIVE DAY 3) ATORVASTATIN CALCIUM 10MG TAB TAKE ONE-HALF T ABLET BY ACTIVE MOUTH EVERY DAY 4) CHOLECALCIF 25MCG (D3-1,000UNIT) TAB TAKE 200 0UNIT BY ACTIVE MOUTH EVERY DAY FOR VITAMIN-D SUPPLEMENTATION. 5) FINASTERIDE 5MG TAB TAKE ONE TABLET BY MOUTH EVERY ACTIVE DAY FOR PROSTATE 6) FUROSEMIDE 20MG TAB TAKE ONE TABLET BY MOUTH EVERY ACTIVE DAY FOR LOWER EXTREMITY SWELLING; OKAY TO TAKE AN EXTRA DOSE DAILY NEEDEDFOR INCREASED SWELLIN G. 7) METFORMIN HCL 1000MG TAB TAKE ONE-HALF TABLET BY ACTIVE MOUTH TWO TIMES A DAY 8) METOPROLOL SUCCINATE 200MG SA TAB TAKE ONE-DONALD LF ACTIVE TABLET BY MOUTH EVERY DAY 9) PIOGLITAZONE HCL 30MG TAB TAKE ONE TABLET BY MOUTH ACTIVE EVERY MORNING FOR BLOOD SUGAR 10) RIVAROXABAN 20MG TAB TAKE ONE TABLET BY MOUT H EVERY ACTIVE EVENING WITH A MEAL TO PREVENT BLOOD CLOTS EXAM: VS: Temp: 95.2 F [35.1 C] (06/21/2021 07:47) BP: 133/77 (06/21/2021 07:50) Pulse:97 (06/21/2021 07:47) Resp: 16 (06/21/2021 07:47) Pain: 0 (06/21/2021 07:47) Weight: WEIGHTS IN LAST 6 MONTHS: 283.2 (JUN 21, 2021@07:47:27) 286.6 (MAR 22, 2021@07:42:31) General Appearance:NAD Mental Status:A&O Neck:supple Chest/T Spine:mod kyphosis Cardiac:RRR JVP:no Lungs: Clear bilaterally Abdomen: Nontender Extremities: Calves soft nontender Gait: Stable and nonantalgic Data/Labs: WBC: 6.71 RBC: 3.68 L HGB: 10.8 L HCT: 34.7 L MCV: 94.3 MCH: 29.3 MCHC: 31.1 L RDW: 15.0 H PLT: 249 MPV: 10.0 GLUCOSE: 176 H UREA NITROGEN: 17 CREATININE: 1.4 H SODIUM: 141 POTASSIUM: 3.9 CHLORIDE: 110 H CO2: 21 L CALCIUM: 9.0 MAGNESIUM: 1.7 ANION GAP: 10 EGFR (03/22): 48 L HGB A1C: 7.7 H (x )Patient was informed of available lab, imagi ng, and other study results associated with today's visit. /es/ Bill Gunter MD Physician Signed: 06/21/2021 08:25 Jun 21, 2021 07:52 AM DIABETOLOGY NOTE: VINCENT READ [facility] LOCAL TITLE: GLUCOSE PATIENT METER DATA STANDARD TITLE: DIABETOLOGY NOTE DATE OF NOTE: JUN 21, 2021@07:52 ENTRY DATE: JUN 21, 2021@07:52:49 AUTHOR: VINCENT READ EXP COSIGNER: URGENCY: STATUS: COMPLETED Name: Luisana Eddy : 1935 ID: [id number] Information from ACCU-CHEK 360 Diabetes Manageme nt System on 06/21/2021 Patient Name: Luisana Eddy Date Range: 06/08/2021 - 06/21/2021 bG values are displayed in mg/dL # of tests 7 Average 150 SD 29 Highest 212 Lowest 122 Avg tests/day 0.5 # HI 0 # LO 0 <70 0.0% 70-140 42.9% >140 57.1% Hypos(<60) 0 Date Range: 06/08/2021 - 06/21/2021 bG values are displayed in mg/dL 00:00- 05:30- 08:00- 11:00- 12:30- 17:00- 18:30 - :30- :30 08:00 11:00 12:30 17:00 18:30 21:30 00:00 06/09/2021 148 06/12/2021 136 06/13/2021 154 06/14/2021 122 06/18/2021 212 06/19/2021 137 06/20/2021 144 Date Range: 06/08/2021 - 06/21/2021 bG values are displayed in mg/dL 00:00- 05:30- 08:00- 11:00- 12:30- 17:00- 18:30 - :30- 05:30 08:00 11:00 12:30 17:00 18:30 21:30 00:00 # of tests 0 3 4 0 0 0 0 0 Average 0 143 156 0 0 0 0 0 SD 5.6 39.6 Hi/Lo 0 0 0 0 0 0 0 0 Date Range: 06/08/2021 - 06/21/2021 bG values are displayed in mg/dL 06/09/2021 7:28 AM 148 06/12/2021 8:31 AM 136 06/13/2021 8:12 AM 154 06/14/2021 8:19 AM 122 06/18/2021 9:39 AM 212 06/19/2021 7:12 AM 137 06/20/2021 6:58 AM 144 End of information from [employer] /ronni/ VINCENT READ LPN LPN Signed: 06/21/2021 07:53 Receipt Acknowledged By: * AWAITING SIGNATURE * BILL GUNTER Jun 21, 2021 07:48 AM INTERNAL MEDICINE OUTPATIENT NOTE: VINCENT READ [facility] LOCAL TITLE: MEDICINE CLINIC NURSING NOTE STANDARD TITLE: INTERNAL MEDICINE OUTPATIENT NOT E DATE OF NOTE: JUN 21, 2021@07:48 ENTRY DATE: JUN 21, 2021@07:48:33 AUTHOR: VINCENT READ EXP COSIGNER: URGENCY: STATUS: COMPLETED TYPE OF VISIT: Appointment Check In Type of appointment: In-person appointment REASON FOR VISIT: Follow up visit ALLERGIES: SIMVASTATIN (Feb 29, 2004) CEPHALEXIN (Mar 01, 2004) VITAL SIGNS: Blood Pressure: 154/82 (06/21/2021 07:47) Reche cked: 133/77 Pulse: 97 (06/21/2021 07:47) Respiration: 16 (06/21/2021 07:47) Temperature: 95.2 F [35.1 C] (06/21/2021 07:47) Weight: 283.2 lb [128.7 kg] (06/21/2021 07:47) Height: 73.5 in [186.7 cm] (03/22/2021 07:42) BMI: 36.9 O2 Sat: 96 (06/21/2021 07:47) Pain: 0 (06/21/2021 07:47) PAIN SCREEN: Patient is not having significant pain that the y wish to discuss with their provider today. MEDICATION Over the Counter/Herbal Medications: The patient denies taking any outside medicatio ns or herbals. CHF Weight Monitoring Educ/[place]: CHF and Weight Monitoring Education Patient declined brochure related to CHF and We ight Monitoring at this visit. /ronni/ VINCENT READ LPN LPN Signed: 06/21/2021 07:50
--- OUTSIDE RECORDS SUMMARY | 2022-05-01 10:19 | XMS_ITS | Encounter Summary ---
:1935 Author Organization [facility] rs Address [address] [place] [id number] Support Name Relationship Address Phone WADE LORENZO Unavailable [id number] [place] [address] WADE LORENZO Unavailable [address] [place] [address] ARACELI MARSHALL Unavailable [address] [place] [address] ARACELI MARSHALL Unavailable [address] [place] [address] Insurance Providers: All historical and current Section [...] [place] Aug 19, [id number] [address] EDDY [facility] (WNR) ADVANTAGE (WNR) 2017 8 [id number] [phone] [facility] 1 [place] MED[place] Aug 19, [id number] [address] EDDY [facility] (WNR) ADVANTAGE (WNR) 2017 8 [id number] [phone] [facility] 1 Selected Encounter This section includes the information on record at ME for the Encounter. Date/Time Encounter Type Encounter Reason Provider Source Description May 15, 2021 IMMUNIZATION GENERAL INTERNAL ICD-10-CM Z23 LILIAN AVELAR 11:15 AM ADMIN MEDICINE Encounter for IE GAVI immunization with Provider Comments: Encounter for Immunization IHE Encounter Template Text not used by ME Assessments - Encounter Diagnoses This section includes the primary and secondary diagnoses documented for the Encounter. Date/Time Primary/Secondary Diagnosis Name Provider Source Diagnosis May 15, 2021 PRIMARY Encounter for SAIRA AVELAR V A 11:08 AM immunization [facility] Plan of Treatment: Future Appointments (+ 6 months) and Future Tests (+/- 45 days) The Plan of Treatment section includes future care activities for the patient from all ME treatmentfacilities. This section includes future appointments and future orders which are active, pending orscheduled.Future Appointments This section includes appointments that were scheduled to occur 6 months from the date of the Encounter, up to a maximum of 20 appointments. The data comes from all ME treatment facilities. Appointment Date/Time Appointment Type Appointment Facili ty Name Jun 21, 2021 06:45 AM AMBULATORY [facility] Jun 21, 2021 07:45 AM AMBULATORY [facility] Jul 17, 2021 11:00 AM AMBULATORY [facility] Sep 20, 2021 06:45 AM AMBULATORY [facility] Sep 20, 2021 07:45 AM AMBULATORY [facility] Immunizations: All administered on the encounter date This section contains immunizations associated to the Encounter. Immunization Series Date Issued Reaction Comments COVID-19 (PFIZER), MRNA, LNP-S, 3 May 15, 2021 PFR; [id number]; 06/18/2021 PF, 30 MCG/0.3 ML DOSE INFLUENZA, INJECTABLE, May 15, 2021 QUADRIVALENT, PRESERVATIVE FREE Social History: Smoking Status (Most current) and Tobacco Use (All prior to encounter date) This section includes the most current, and the historical, smoking and tobacco-related health factors from the ME facility where the Encounter took place.Current Smoking Status This section includes the most current smoking, or tobacco-related health factor, from the ME facility where the Encounter took place. Date/Time Current Smoking Status Comment Facility Mar 22, 2021 07:45 AM ME-TOBACCO NEVER USED [facility] Tobacco Use History This section includes a history of the smoking, or tobacco- related health factors, that were collected on or before the date of the Encounter. The data comes from the ME facility where the Encounter took place. Date/Time Smoking Status/Tobacco Use Comment [facility] it Oct 02, 2019 10:02 AM ME-TOBACCO NEVER USED [facility] [facility] May 21, 2018 09:05 AM ME-TOBACCO NEVER USED [facility] December 25, 2017 06:14 PM INPT NO TOBACCO USE IN LAST 30 DAYS [facility] Oct 01, 2017 07:34 AM LIFETIME NON-TOBACCO USER [facility] Sep 28, 2016 08:44 AM LIFETIME NON-TOBACCO USER [facility] Oct 14, 2015 07:52 AM LIFETIME NON-TOBACCO USER [facility] Oct 11, 2014 07:59 AM LIFETIME NON-TOBACCO USER [facility] January 15, 2007 07:55 AM LIFETIME NON-TOBACCO USER [facility] Advance Directives: All historical and current Section Date Range: From patient's date of to the date document was created. This section includes ALL of a patient's completed or amended ME Advance and Rescinded Directives. The entries below indicate that a directive exists for the patient, but an actual copy is not included with this document. The data comes from all ME facilities. Date Advance Directives Provider Source Apr 18, 2018 ADVANCE DIRECTIVE LARISSA SIGALA [facility] Apr 18, 2018 ADVANCE DIRECTIVE DISCUSSION [facility] December 23, 2017 CLINICAL WARNING [facility] May 11, 2003 ADVANCE DIRECTIVE BERT CASILLAS [facility] Encounter Notes: All associated encounter notes This section contains the clinical notes associated to the Encounter. Date/Time Encounter Note(s) Provider Source May 15, 2021 11:08 AM IMMUNIZATION NOTE: THALIA AVELAR [facility] LOCAL TITLE: INFLUENZA VACCINATION STANDARD TITLE: IMMUNIZATION NOTE DATE OF NOTE: MAY 15, 2021@11:08 ENTRY DATE: MAY 15, 2021@11:08:47 AUTHOR: THALIA AVELAR EXP COSIGNER: URGENCY: STATUS: COMPLETED The patient was given the influenza VIS which li sts the benefits and side effects of the vaccine and which reviews the ris ks of not receiving the flu vaccine. The VIS was reviewed with the patient a nd they were given an opportunity to ask questions. The patient was pr ovided education on how to decrease the risk of influen za infection including social distancing and use of good hand hygiene. The patient denied any prior severe reaction to the flu vaccine or its components. The patient gave verb al consent to receive the vaccine. The seasonal influenza vaccine VIS given to the patient: VIS version date Mar. The patient received seasonal influenza vaccine today - Influenza, Quadrivalent preservative free (Afluria) 0.5 ml IM today in Left Deltoid. 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 Lot # and Expiration Date: Lot#:[id number], EXP :01/31/2022 Administered by protocol/policy Complications: None /ronni/ THALIA AVELAR RN Signed: 05/15/2021 11:09 May 15, 2021 11:07 AM NURSING IMMUNIZATION NOTE: THALIA AVELAR [facility] LOCAL TITLE: VAAES OUTPATIENT COVID VACCINE ADM INISTRATION STANDARD TITLE: NURSING IMMUNIZATION NOTE DATE OF NOTE: MAY 15, 2021@11:07 ENTRY DATE: MAY 15, 2021@11:07:55 AUTHOR: THALIA AVELAR EXP COSIGNER: URGENCY: STATUS: COMPLETED The patient was given the VIS for this vaccine w [facility] lists the benefits and side effects of the vaccine and which reviews th e risks of the vaccine. The fact sheet was reviewed with the patient and they were given an opportunity to ask questions. The patient denied any pr ior severe reaction to this vaccine or its components or a severe allergic reaction suc h as anaphylaxis to any vaccine or to any injectable therapy. The patien t gave verbal consent to receive the vaccine. The patient received TMAT COVID-19 Vaccine 0. 3 ml IM. MVX (Manuf); Lot#; Exp Date: PFR; [id number]; 06/18 Administration Anatomic site: Right Deltoid Vaccine administered without complications. The patient was advised to remain in the facility for 15 minutes p ost vaccination. The patient was given a completed COVID-19 vaccination record card, a copy of the ME Side Effects and Adverse Events Reporting Fact Sheet and ins tructed on how to report any adverse reactions. Vaccine administered by policy/protocol. /ronni/ THALIA AVELAR RN Signed: 05/15/2021 11:08
--- OUTSIDE RECORDS SUMMARY | 2022-05-01 10:19 | XMS_ITS | Continuity of Care Document ---
:1935 Author Organization [facility] Care Team Providers Name Role Phone [facility] Unavailable Unavailable Problems Combined list of problems from Department of Defense and Veterans Affairs facilities. It does not include entries that were removed or entered in error. Problem Status Onset Problem Date of Comments Source Date Type Resolution Chronic atrial Active Condition Mar 22, [place] fibrillation [address] [facility] By: BETH ROONEY Comment: metoprolol and rivaroxaban Chronic kidney Active Condition [facility] disease stage [address] 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 2020 Entered [facility] By: BETH ROONEY Comment: w/ HTN and dyslipidemia Elevated PSA Active Condition Oct 14 [place] 2015 Entered [facility] By: SHANI PIKE Comment: follows with urology at [place] Mar 22, 2021 Entered By: BETH ROONEY Comment: with BPH on terazosin Mar 22, 2021 Entered By: BETH ROONEY Comment: February 2021: TURP at [place] Gout Active Condition Mar 22 [place] 2020 Entered [facility] By: BETH ROONEY Comment: on allopurinol History of Active Condition 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 Two small polyps. Oct 14, 2015 Entered By: SHANI PIKE Comment: 5 year follow up if appropriate. 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 Has brother in [place]. Friends locally. 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 Type 2 diabetes Active Condition [place] mellitus (SNOMED CT [facility] [id number]) Diagnosis: ICD-10-CM Active Diagnosis [place] I48.20 Chronic [facility] S atrial fibrillation, unspecifiedwith Provider Comments: Chronic atrial fibrillation ([facility] [id number]) Diagnosis: ICD-10-CM Active Diagnosis [place] Z65.8 Oth problems [facility] related to psychosocial circumstanceswith Provider Comments: Other specified Problems Related to Psychosocial Circumstances Diagnosis: ICD-10-CM Active Diagnosis [place] F03.90 Unspecified [facility] dementia without behavioral disturbancewith Provider Comments: Unspecified Dementia without Behavioral Disturbance Diagnosis: ICD-10-CM Active Diagnosis [place] E11.9 Type 2 [facility] diabetes mellitus without complicationswith Provider Comments: Type 2 diabetes mellitus ([facility] [id number]) Diagnosis: ICD-10-CM Active Diagnosis [place] Z71.89 Other [facility] specified counselingwith Provider Comments: Other specified counseling Diagnosis: ICD-10-CM Active Diagnosis [place] Z71.89 Other [facility] specified counselingwith Provider Comments: Other specified Counseling Diagnosis: ICD-10-CM Active Diagnosis [place] I50.32 Chronic [facility] S diastolic (congestive) heart failurewith Provider Comments: Diastolic heart failure ([facility] [id number]) Diagnosis: ICD-10-CM Active Diagnosis [place] Z23 Encounter for [facility] immunizationwith Provider Comments: Encounter for Immunization Diagnosis: ICD-10-CM Active Diagnosis [place] M20.40 Other hammer [facility] toe(s) (acquired), unspecified footwith Provider Comments: Other Hammer Toe(s) (Acquired), unspecified Foot Medications Combined list of outpatient medications from Department of Defense and Veterans Affairs facilities. Medications provided include 1) outpatient medications from the last 15 months, and 2) patient-reported medications. Medication Details Route Status Patient Prescription Prescription Last Ordering Order Source Instructions Expires Number Dispense Provider Date Date ALLOPURINOL TAKE ONE ORALLY 03/23/2022 [id number] BORWICK 03/23/ [place] 100MG TAB TABLET 2 ,2020 [facility] EVERY DAY ATORVASTATI TAKE ORALLY ACTIVE 04/05/2023 [id number] BORTH WICK 04/05/ [place] 10MG ONE-HALF 2 ,2021 [facility] TAB TABLET L [facility] BY MOUTH EVERY DAY ATORVASTATI TAKE ORALLY DISCONT 03/23/2022 [id number] B[place]TH WICK 03/23/ [place] 10MG ONE-HALF INUED 2 ,2020 [facility] TAB TABLET L [facility] BY MOUTH EVERY DAY ATORVASTATI TAKE ORALLY DISCONT 01/20/2022 [id number] L EIGH,ANGELICA 04/07/ [place] 10MG ONE-HALF INUED 1 GLAS R 2020 [facility] TAB TABLET (EDIT) HCS BY MOUTH EVERY DAY CHOLECALCIF TAKE ORALLY 03/23/2022 [id number] [facility]/ [place] SUAD 25MCG 2000UNIT ,2020 [facility] (1,000UNIT) BY MOUTH L HCS TAB EVERY DAY FOR VITAMIN- D SUPPLEME NTATION. CYANOCOBALA INJECT INTRAM ACTIVE 04/03/2023 [id number] Kristel BRADSHAW 04/02/ [place] MIN 1ML USCULA 2 HALAFALLA 2021 [facility] 1000MCG/ML (1000MCG R O HCS INJ ) INTRAMUS CULAR EVERY DAY FOR 7 DAYS, THEN INJECT 1ML (1000MCG ) EVERY WEEK FOR 4 WEEKS, THEN INJECT 1ML (1000MCG ) EVERY MONTH FOR 3 MONTHS, THEN INJECT 1ML (1000MCG ) EVERY 3 MONTHS CYANOCOBALA TAKE TWO ORALLY DISCONT 02/13/2023 [id number] BORTHWICK 02/14/ [place] MIN 100MCG TABLETS INUED 2 ,2021 [facility] TAB BY MOUTH L H[facility] EVERY DAY FERROUS SO4 TAKE ONE ORALLY ACTIVE 09/28/2022 [id number] B ORTHWICK 09/28/ [place] 325MG TAB TABLET 2 ,2021 [facility] EVERY DAY FINASTERIDE TAKE ONE ORALLY ACTIVE 09/21/2022 [id number] B ORTHWICK 09/21/ [place] 5MG TAB TABLET 2 ,2021 [facility] BY [facility]TH [facility] EVERY DAY FOR PROSTATE FINASTERIDE TAKE ONE ORALLY DISCONT 03/23/2022 [id number] BORTHWICK 03/23/ [place] 5MG TAB TABLET INUED 1 ,BILL2020 [facility] BY [facility]TH [facility] EVERY DAY FOR PROSTATE FUROSEMIDE TAKE ONE ORALLY DISCONT 02/25/2022 [id number] MARK,ANGELICA 03/08/ [place] 20MG TAB TABLET INUED 1 GLAS R 2020 [facility] BY MOUTH (EDIT) HCS EVERY DAY FOR LOWER EXTREMIT Y SWELLING ; OKAY TO TAKE AN EXTRA DOSE DAILY NEEDED FOR INCREASE D SWELLING . FUROSEMIDE TAKE ONE ORALLY 03/23/2022 [id number] B ORTHWICK /10/ [place] 20MG TAB TABLET 2 ,2020 [facility] BY [facility]TH L [facility] EVERY DAY FOR LOWER EXTREMIT Y SWELLING ; OKAY TO TAKE AN EXTRA DOSE DAILY NEEDEDFO R INCREASE D SWELLING . GLIPIZIDE TAKE ONE ORALLY DISCONT 03/01/2021 [id number] L EIGH,ANGELICA 05/07/ [place] 10MG TAB TABLET INUE 1 GLAS R 2020 [facility] BY [facility]TH [facility] EVERY MORNING TO DECREASE BLOOD SUGAR TAKE 30 MINUTES BEFORE MEAL GLIPIZIDE TAKE ONE ORALLY ACTIVE 06/22/2022 [id number] BOR THWICK 06/22/ [place] 5MG TAB TABLET 2 ,2020 [facility] BY [facility]TH L [facility] EVERY DAY FOR DIABETES -TAKE 30 MINUTES BEFORE MEAL MELATONIN TAKE 1 ORALLY ACTIVE 02/03/2023 [id number] BORTHWI CK 02/02/ [place] 3MG CAP/TAB TABLET 2 ,2021 [facility] BY [facility]TH L [facility] AT BEDTIME METFORMIN TAKE ORALLY ACTIVE 04/05/2023 [id number] [facility] CK 04/05/ [place] HCL 1000MG ONE-HALF 2 ,2021 [facility] TAB TABLET L HCS BY MOUTH TWO TIMES A DAY METFORMIN TAKE ORALLY DISCONT 03/23/2022 [id number] [facility] CK 03/23/ [place] HCL 1000MG ONE-HALF INUED 2 ,2020 [facility] TAB TABLET L HCS BY MOUTH TWO TIMES A DAY METFORMIN TAKE ONE ORALLY DISCONT 03/01/2021 [id number] [facility],ANGELICA 05/08/ [place] HCL 850MG TABLET INUE 1 GLAS R 2019 [facility] TAB BY MOUTH HCS THREE TIMES A DAY TO DECREASE BLOOD SUGAR METOPROLOL TAKE ORALLY ACTIVE 04/05/2023 [id number] [facility] ICK 04/05/ [place] SUCCINATE ONE-HALF 2 ,2021 [facility] 200MG TABLET L HCS TAB,SA BY MOUTH EVERY DAY METOPROLOL TAKE ORALLY DISCONT 03/23/2022 [id number] [facility] 03/23/ [place] SUCCINATE ONE-HALF INUED 2 ,2020 [facility] 200MG TABLET L HCS TAB,SA BY MOUTH EVERY DAY METOPROLOL TAKE ONE ORALLY DISCONT 03/01/2021 [id number] MARK,ANGELICA 05/07/ [place] TARTRATE TABLET INUED 1 GLAS R 2019 [facility] 100MG TAB BY MOUTH HCS TWICE A DAY TO HELP CONTROL YOUR HEART RATE WITH ATRIAL FIBRILLA TION NYSTATIN APPLY TOPICA ACTIVE 02/03/[id number] 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 USE ONLY SKIN FOLDS PIOGLITAZON TAKE ONE ORALLY DISCONT 03/24/2021 [id number] [facility],K 04/06/ [place] E HCL 30MG TABLET INUED 1 ATHY 2019 [facility] TAB BY MOUTH (EDIT) HCS EVERY MORNING FOR BLOOD SUGAR PIOGLITAZON TAKE ONE ORALLY 03/23/2022 [id number] TOR[facility] 03/23/ [place] E HCL 30MG TABLET 2 ,2020 [facility] TAB BY MOUTH L HCS EVERY MORNING FOR BLOOD SUGAR RIVAROXABAN TAKE ONE ORALLY 03/23/2022 [id number] TORIBIO 03/22/ [place] 20MG TAB TABLET 2 ,2020 [facility] EVERY EVENING WITH A MEAL TO PREVENT BLOOD CLOTS Allergies, Adverse Reactions, Alerts Combined list of allergies from Department of Defense and Veterans Affairs facilities. It does not include entries that were removed or entered in error. Substance Category Reaction Severity Reaction Status Date Comments S ource type Reported CEPHALEXIN Propensity Eruption Propensity active [place] to adverse to adverse 4 LI S [facility] reactions reactions [facility] to drug to drug (finding) (finding) SIMVASTATIN Propensity SKIN Propensity active [place] to adverse REACTION to adverse 4 L IS [facility] reactions reactions HCS to drug to drug (finding) (finding) Immunizations Combined list of available immunizations from the Department of Defense and Veterans Affairs facilities. 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 complet [place] POLYSACCHARID 2021 ed [facility] E PPV23 [facility] COVID-19 4 complet [place] (PFIZER), 2021 ed [facility] MRNA, LNP-S, H CS PF, 30 MCG/0.3 ML DOSE COVID-19 3 complet PFR; [place] (PFIZER), 2020 ed [id number]; [facility] MRNA, LNP-S, 02 HCS PF, 30 1 MCG/0.3 ML DOSE INFLUENZA, complet [place] INJECTABLE, 2020 ed [facility] [place] [facility] QUADRIVALENT, HCS PRESERVATIVE FREE COVID-19 2 complet PFR; [place] (PFIZER), 2020 ed [id number]; [facility] [place] [facility] MRNA, LNP-S, 02 HCS PF, 30 1 MCG/0.3 ML DOSE COVID-19 1 complet PFR; [place] (PFIZER), 2020 ed [id number]; [place] [facility] MRNA, LNP-S, 02 HCS PF, 30 1 MCG/0.3 ML DOSE INFLUENZA, complet [place] UNSPECIFIED 2019 ed [facility] FORMULATION HC S INFLUENZA, complet [place] HIGH DOSE 2018 ed CLIN IC SEASONAL ZOSTER 2 complet [place] RECOMBINANT 2018 ed [facility] ZOSTER 1 complet [place] RECOMBINANT 2018 ed [facility] INFLUENZA, complet [place] SEASONAL, 2017 ed [facility] INJECTABLE, HC S PRESERVATIVE FREE INFLUENZA, complet CANDELAR[place] HIGH DOSE 2016 ed CLIN IC SEASONAL INFLUENZA, complet [place] HIGH DOSE 2016 ed ER SEASONAL (CBOC ) PNEUMOCOCCAL complet wyet h, [place] CONJUGATE PCV 2016 ed [id number] , [facility] 13 01/02 HCS INFLUENZA, complet [place] HIGH DOSE 2014 ed [facility] SEASONAL HCS INFLUENZA, complet [place] SEASONAL, 2013 ed CLIN IC INJECTABLE INFLUENZA, complet [place] UNSPECIFIED 2012 ed [facility] FORMULATION [facility] S ZOSTER LIVE 121 complet merck , [place] 2012 ed [id number], [facility] 09/20/13 HCS TDAP complet [id number] M [place] 2012 ed A, [facility] 11/07/14, HCS boostrix INFLUENZA, complet [place] UNSPECIFIED 2011 ed [facility] FORM[facility]ATION [facility] INFLUENZA, complet [place] UNSPECIFIED 2010 ed [facility] FORM[facility]ATION [facility] INFLUENZA, complet [place] UNSPECIFIED 2009 ed [facility] FORM[facility]ATION [facility] NOVEL complet [place] INFLUENZA-H1N 2008 ed [facility] 08-27, ALL HCS FORMULATIONS INFLUENZA, complet [place] UNSPECIFIED 2008 ed CL INIC FORMULATION INFLUENZA, complet [place] UNSPECIFIED 2007 ed [facility] FORM[facility] INFLUENZA, complet [place] UNSPECIFIED 2006 ed [facility] FORM[facility]ATION [facility] INFLUENZA, complet [place] UNSPECIFIED 2005 ed [facility] FORM[facility]ATION [facility] INFLUENZA, complet [place] UNSPECIFIED 2004 ed [facility] FORM[facility]ATION [facility] INFLUENZA, complet [place] UNSPECIFIED 2003 ed [facility] FORM[facility]ATION [facility] INFLUENZA, complet [place] UNSPECIFIED 2002 ed [facility] FORM[facility] INFLUENZA 88 complet [place] (HISTORICAL) 2001 ed O [facility] TETANUS 112 complet [place] TOXOID, 2001 ed [facility] A UNSPECIFIED HC S FORMULATION PNEUMOCOCCAL, 109 complet [place] UNSPECIFIED 2001 ed [facility] FORMULATION [facility] S Results Combined list of recent chemistry, hematology and other laboratory results from Department of Defense and Veterans Affairs, ranging from 15 months to all on record, depending upon the facility. Order Results Value Reference Date Interpretation Specimen Commen ts Source Name Range BASIC CREATININE 1.2 0.7 - 1.2 04/30 Specimen Ty pe: PLASMA [place] METABOLI [MASS/VOLU /2021 No comment e ntered. IS [facility] C ME] IN Ordering Provid er: BILL ROONEY PANEL+MG SERUM OR Report Releas ed Date/Time: Apr 30, 2022 08:21 AM PLASMA Reporting Lab: [facility] [place] [address] Performing Lab: [facility] [place] [place] [address] BASIC UREA 26 8 - 26 09 Specimen Type: P LASMA [place] METABOLI /2021 No comment ent ered. IS [facility] C [MASS/VOLU Ordering Pro vider: BILL ROONEY PANEL+MG ME] IN Report Release d Date/Time: Apr 30, 2022 08:21 AM SERUM OR Reporting Lab: [facility] PLASMA [place] [address] Performing Lab: [facility] [place] [address] BASIC GLUCOSE 140 70 - 100 09/12 H Specimen Type: PLASMA [place] METABOLI [MASS/VOLU /2021 No comment e ntered. IS [facility] C ME] IN Ordering Provid er: BILL ROONEY PANEL+MG SERUM OR Report Releas ed Date/Time: Apr 30, 2022 08:21 AM PLASMA Reporting Lab: [facility] [address] [place] [address] Performing Lab: [facility] [place] [address] BASIC SODIUM 138 136 - 145 09 Specimen Type: PLASMA [place] METABOLI [MOLES/VOL /2021 No comment e ntered. IS [facility] C UME] IN Ordering Provid er: BILL ROONEY L PANEL+MG SERUM OR Report Releas ed Date/Time: Apr 30, 2022 08:21 AM PLASMA Reporting Lab: [facility] [place] [address] Performing Lab: [facility] [place] [address] BASIC POTASSIUM 3.8 3.5 - 5.1 04/30 Specimen Typ e: PLASMA [place] METABOLI [MOLES/VOL /2021 No comment e ntered. IS [facility] C UME] IN Ordering Provid er: BORBILL MCKEON L PANEL+MG SERUM OR Report Releas ed Date/Time: Apr 30, 2022 08:21 AM PLASMA Reporting Lab: [facility] [address] [place] [facility] [place] [address] Performing Lab: [facility] [place] [address] BASIC CHLORIDE 107 98 - 107 04/30 Specimen Type: PLASMA [place] METABOLI [MOLES/VOL No comment e ntered. IS [facility] C UME] IN Ordering Provid er: BILL ROONEY L PANEL+MG SERUM OR Report Releas ed Date/Time: Apr 30, 2022 08:21 AM PLASMA Reporting Lab: [facility] [address] [place] [facility] [place] [address] Performing Lab: [facility] [place] [address] BASIC CARBON 20 22 - 29 04/30 L Specimen Type: P LASMA [place] METABOLI DIOXIDE, /2021 No comment ent ered. IS [facility] C TOTAL Ordering Provid er: BILL ROONEY L PANEL+MG [MOLES/VOL Report Rele ased Date/Time: Apr 30, 2022 08:21 AM UME] IN Reporting Lab: [facility] SERUM OR [address] [place] [facility] [place] [address] PLASMA Performing Lab: [facility] [address] [place] [facility] [place] [address] BASIC CALCIUM 9.4 8.4 - 10.2 04/30 Specimen Type : PLASMA [place] METABOLI [MASS/VOLU /2021 No comment e ntered. IS [facility] C ME] IN Ordering Provid er: BORBILL MCKEON L PANEL+MG SERUM OR Report Releas ed Date/Time: Apr 30, 2022 08:21 AM PLASMA Reporting Lab: [facility] [address] [place] [facility] [place] [address] Performing Lab: [facility] [place] [address] [place] [address] BASIC MAGNESIUM 1.7 1.6 - 2.6 04/30 Specimen Typ e: PLASMA [place] METABOLI [MASS/VOLU /2021 No comment e ntered. IS [facility] C ME] IN Ordering Provid er: BILL ROONEY PANEL+MG SERUM OR Report Releas ed Date/Time: Apr 30, 2022 08:21 AM PLASMA Reporting Lab: [facility] [address] [place] [facility] [place] [address] Performing Lab: [facility] [address] [place] [facility] [place] [address] BASIC ANION GAP 11 5 - 15 04/30 Specimen Type: PLASMA [place] METABOLI IN SERUM /2021 No comment ent ered. IS [facility] C OR PLASMA Ordering Prov ider: BILL ROONEY PANEL+MG Report Release d Date/Time: Apr 30, 2022 08:21 AM Reporting Lab: [facility] [address] [place] [facility] [place] [address] Performing Lab: [facility] [address] [place] [facility] [place] [address] BASIC GLOMERULAR 59 60 04/30 L Specimen Type : PLASMA [place] METABOLI FILTRATION /2021 No comment e ntered. IS [facility] C RATE/1.73 Ordering Prov ider: BILL ROONEY PANEL+MG SQ Report Release d Date/Time: Apr 30, 2022 08:21 AM DelfinaPREDICTE Reporting La b: [facility] D [VOLUME [address] [facility] [place] [address] RATE/AREA] Performing L ab: [facility] IN SERUM, [address] [facility] [address] PLASMA OR BLOOD BY CREATININE -BASED FORMULA (CKD-EPI) CBC LEUKOCYTES 10.40 4.0 - 11.0 04/30 Specimen T ype: BLOOD [place] [#/VOLUME] /2021 No comment en tered. IS [facility] IN BLOOD Ordering Provi violeta: BILL ROONEY BY Report Released Date/Time: Apr 30, 2022 08:21 AM AUTOMATED Reporting Lab : [facility] [place] [address] Performing Lab: [facility] [place] [address] CBC ERYTHROCYT 3.96 4.6 - 6.2 09/ L Specimen Ty pe: BLOOD [place] ES /2021 No comment enter ed. IS [facility] [#/VOLUME] Ordering Pro vider: BILL ROONEY IN BLOOD Report Release d Date/Time: Apr 30, 2022 08:21 AM BY Reporting Lab: [facility] AUTOMATED [facility] [address] COUNT Performing Lab: [facility] [address] [place] [facility] [place] [address] CBC HEMOGLOBIN 12.3 13.5 - 09/ L Specimen Type : BLOOD [place] [MASS/VOLU 17.9 /2021 No comment en tered. IS [facility] ME] IN Ordering Provid er: BILL ROONEY BLOOD Report Released Date/Time: Apr 30, 2022 08:21 AM Reporting Lab: [facility] [address] [place] [facility] [place] [address] Performing Lab: [facility] [address] [place] [facility] [place] [address] CBC HEMATOCRIT 37.8 41 - 54 04/30 L Specimen Type : BLOOD [place] [VOLUME /2021 No comment enter ed. IS [facility] FRACTION] Ordering Prov ider: BILL ROONEY OF BLOOD Report Release d Date/Time: Apr 30, 2022 08:21 AM BY Reporting Lab: [facility] AUTOMATED [facility] [address] COUNT Performing Lab: [facility] [place] [address] CBC MCV 95.5 80 - 100 04/30 Specimen Type: BLOOD [place] [ENTITIC /2021 No comment ente red. IS [facility] VOLUME] BY Ordering Pro vider: BILL ROONEY AUTOMATED Report Releas ed Date/Time: Apr 30, 2022 08:21 AM COUNT Reporting Lab: [facility] [address] [place] [facility] [place] [address] Performing Lab: [facility] [address] [place] [facility] [place] [address] CBC MCH 31.1 27 - 33 04/30 Specimen Type: B LOOD [place] [ENTITIC /2021 No comment ente red. IS [facility] MASS] BY Ordering Provi violeta: BILL ROONEY AUTOMATED Report Releas ed Date/Time: Apr 30, 2022 08:21 AM COUNT Reporting Lab: [facility] [address] [place] [address] Performing Lab: [facility] [address] [place] [address] CBC MCHC 32.5 32.0 - 04/30 Specimen Type: B LOOD [place] [MASS/VOLU 37.5 /2021 No comment en tered. IS [facility] ME] BY Ordering Provid er: BILL ROONEY AUTOMATED Report Releas ed Date/Time: Apr 30, 2022 08:21 AM COUNT Reporting Lab: [facility] [address] [place] [address] Performing Lab: [facility] [address] [place] [address] CBC PLATELETS 286 150 - 400 04/30 Specimen Typ e: BLOOD [place] [#/VOLUME] /2021 No comment en tered. IS [facility] IN BLOOD Ordering Provi violeta: BILL ROONEY BY Report Released Date/Time: Apr 30, 2022 08:21 AM AUTOMATED Reporting Lab : [facility] [place] [address] [place] [address] Performing Lab: [facility] [address] [place] [address] CBC PLATELET 10.1 7.4 - 10.4 04/30 Specimen Typ e: BLOOD [place] MEAN /2021 No comment enter ed. IS [facility] VOLUME Ordering Provid er: BILL ROONEY [ENTITIC Report Release d Date/Time: Apr 30, 2022 08:21 AM VOLUME] IN Reporting La b: [facility] [place] [address] AUTOMATED Performing La b: [facility] [place] [address] [place] [address] CBC ERYTHROCYT 14.6 11.5 - 09/12 H Specimen Type : BLOOD [place] E 14.5 /2021 No comment enter ed. IS [facility] DISTRIBUTI Ordering Pro vider: BILL ROONEY ON WIDTH Report Release d Date/Time: Apr 30, 2022 08:21 AM [RATIO] BY Reporting La b: [facility] [place] [address] COUNT Performing Lab: [facility] [address] [place] [address] AMMONIA AMMONIA <14 <72 - 72 04/02 Specimen Type: PLASMA [place] [MOLES/VOL /2021 No comment en tered. IS [facility] UME] IN Ordering Provid er: [place] SOL PLASMA Report Released Date/Time: Apr 02, 2022 02:05 PM Reporting Lab: [facility] [place] [address] Performing Lab: [facility] [place] [address] B 12 COBALAMIN 234 213 - 816 04/02 Specimen Typ e: SERUM [place] (VITAMIN /2021 No comment ente red. IS [facility] B12) Ordering Provid er: [place] SOL [MASS/VOLU Report Relea sed Date/Time: Apr 02, 2022 02:05 PM ME] IN Reporting Lab: [facility] SERUM OR [address] RIVCamron [facility] [address] PLASMA Performing Lab: [facility] [address] [place] [facility] [address] LIVER BILIRUBIN. 0.5 0.2 - 1.2 04/02 Specimen Ty pe: PLASMA [place] FUNCTION TOTAL /2021 No comment ente red. IS [facility] TESTS [MASS/VOLU Ordering Pro vider: [place] SOL ME] IN Report Released Date/Time: Apr 02, 2022 02:05 PM SERUM OR Reporting Lab: [facility] PLASMA [address] [place] [facility] [address] Performing Lab: [facility] [address] [place] [facility] [address] LIVER ALKALINE 108 40 - 150 04/02 Specimen Type: PLASMA [place] FUNCTION PHOSPHATAS /2021 No comment e ntered. IS [facility] E Ordering Provid er: [place] [facility] [ENZYMATIC Report Relea sed Date/Time: Apr 02, 2022 02:05 PM ACTIVITY/V Reporting La b: [facility] OLUME] IN [address] [facility] [address] SERUM OR Performing Lab : [facility] PLASMA [address] [place] [facility] [address] LIVER ALANINE 24 <55 - 55 04/02 Specimen Type: PLASMA [place] FUNCTION AMINOTRANS /2021 No comment e ntered. IS [facility] TEST[facility] FERASE Ordering Provid er: MADISON SOL [ENZYMATIC Report Relea sed Date/Time: Apr 02, 2022 02:05 PM ACTIVITY/V Reporting La b: [facility] OLUME] IN [address] [facility] [address] SERUM OR Performing Lab : [facility] PLASMA [address] [place] [facility] [address] LIVER ASPARTATE 18 <34 - 34 04/02 Specimen Type : PLASMA [place] FUNCTION AMINOTRANS /2021 No comment e ntered. IS [facility] TESTS FERASE Ordering Provid er: MADISON SOL [ENZYMATIC Report Relea sed Date/Time: Apr 02, 2022 02:05 PM ACTIVITY/V Reporting La b: [facility] OLUME] IN [address] [facility] [address] SERUM OR Performing Lab : [facility] PLASMA [address] [place] [facility] [address] LIVER GAMMA 34 <64 - 64 04/02 Specimen Type: PLASMA [place] FUNCTION GLUTAMYL /2021 No comment ent ered. IS [facility] TESTS TRANSFERAS Ordering Pro vider: MADISON SOL E Report Released Date/Time: Apr 02, 2022 02:05 PM [ENZYMATIC Reporting La b: [facility] ACTIVITY/V ONE [facility] [address] OLUME] IN Performing La b: [facility] SERUM OR [address] [facility] [address] PLASMA METHYLMA METHYLMALO 406 87 - 318 04/02 H Specimen Ty pe: SERUM [place] ACID, ROME /2021 Comment: This t est was developed and its analytical performance characteristics have been determined by [employer] [place], [place]. It has not been cleared or approved by the [place] [facility] [place] [MOLES/VOL . Food and Dr ug Administration. This assay has been validated pursuant to the CLIA regulations and is used for clinical purposes. Test Performed by [facility], [employer] [facility], [place]] [place] [address] [place], [place] Domenic Miller M.D., Ph.D., Director of Laboratories , CLIA [id number] SERUM OR Ordering Provi violeta: MADISON SOL PLASMA Report Released Date/Time: Apr 02, 2022 04:37 PM Reporting Lab: [facility] [address] [place] [facility] [address] Performing Lab: [facility] [address] [facility] [address] B 12 COBALAMIN 192 213 - 816 02/02 L Specimen Typ e: SERUM [place] (VITAMIN /2021 No comment destiny red. IS [facility] B12) Ordering Provid er: BILL ROONEY [MASS/VOLU Report Relea sed Date/Time: Feb 02, 2022 09:56 AM ME] IN Reporting Lab: [facility] SERUM OR [address] [facility] [place] [address] PLASMA Performing Lab: [facility] [address] [place] [place] [address] FOLATE FOLATE 10.6 7.0 02/02 Specimen Type: S NOÉ [place] [MASS/VOLU /2021 No comment en tered. IS [facility] ME] IN Ordering Provid er: BILL ROONEY SERUM OR Report Release d Date/Time: Feb 02, 2022 09:56 AM PLASMA Reporting Lab: [facility] [place] [address] Performing Lab: [facility] [place] [address] SYPHILIS SYPHILIS NEGATIVE 02/02 Specimen Type : SERUM [place] ANTIBODY SCREEN /2021 No comment destiny av[employer]ia. IS [facility] TEST Ordering Provid er: BILL ROONEY STATUS Report Released Date/Time: Feb 02, 2022 09:56 AM [facility] Reporting Lab: [facility] [place] [address] Performing Lab: [facility] [place] [address] TSH THYROTROPI 1.95 0.35 - 02/02 Specimen Type : PLASMA [place] W/REFLEX N 4.94 /2021 No comment destiny avitia. IS [facility] TO FREE [UNITS/VOL Ordering Pro vider: BILL ROONEY T4 UME] IN Report Released Date/Time: Feb 02, 2022 09:56 AM SERUM OR Reporting Lab: [facility] [place] [address] [place] [address] Performing Lab: [facility] [address] [place] [address] Vital Signs Combined list of inpatient and outpatient Vital Signs from Department of Defense and Veterans Affairs, ranging from 12 months to all on record, depending upon the facility. Vital Sign Value Date Comments Source SYSTOLIC BLOOD PRESSURE 129 04/30/2022 07:57:58 [facility] DIASTOLIC BLOOD PRESSURE 69 04/30/2022 07:57:58 [facility] PULSE OXIMETRY 98% 04/30/2022 07:57:58 [facility] WEIGHT 04/30/2022 07:57:58 [facility] HEIGHT 04/30/2022 07:57:58 [facility] TEMPERATURE 98.2 04/30/2022 07:57:58 [facility] RESPIRATION 18 04/30/2022 07:57:58 [facility] SYSTOLIC BLOOD PRESSURE 123 04/02/2022 13:22:42 [facility] DIASTOLIC BLOOD PRESSURE 70 04/02/2022 13:22:42 [facility] PULSE OXIMETRY 93% 04/02/2022 13:22:42 [facility] PAIN 3 04/02/2022 13:22:42 [facility] PULSE 98 04/02/2022 13:22:42 [facility] RESPIRATION 18 04/02/2022 13:22:42 [facility] SYSTOLIC BLOOD PRESSURE 105 02/02/2022 09:21:12 [facility] DIASTOLIC BLOOD PRESSURE 67 02/02/2022 09:21:12 [facility] PULSE OXIMETRY 97% 02/02/2022 09:21:12 [facility] WEIGHT 284.1 02/02/2022 09:21:12 [facility] BMI 37kg/m2 02/02/2022 09:21:12 [facility] PAIN 0 02/02/2022 09:21:12 [facility] TEMPERATURE 97.1 02/02/2022 09:21:12 [facility] PULSE 91 02/02/2022 09:21:12 [facility] RESPIRATION 16 02/02/2022 09:21:12 [facility] SYSTOLIC BLOOD PRESSURE 133 09/20/2021 07:38:57 [facility] DIASTOLIC BLOOD PRESSURE 82 09/20/2021 07:38:57 [facility] PULSE OXIMETRY 98% 09/20/2021 07:38:57 [facility] WEIGHT 275 09/20/2021 07:38:57 [facility] BMI 36kg/m2 09/20/2021 07:38:57 [facility] PAIN 0 09/20/2021 07:38:57 [facility] HEIGHT 73.5 09/20/2021 07:38:57 [facility] TEMPERATURE 96 09/20/2021 07:38:57 [facility] PULSE 96 09/20/2021 07:38:57 [facility] RESPIRATION 18 09/20/2021 07:38:57 [facility] SYSTOLIC BLOOD PRESSURE 154 06/21/2021 07:47:27 [facility] DIASTOLIC BLOOD PRESSURE 82 06/21/2021 07:47:27 [facility] PULSE OXIMETRY 96% 06/21/2021 07:47:27 [facility] WEIGHT 283.2 06/21/2021 07:47:27 [facility] BMI 37kg/m2 06/21/2021 07:47:27 [facility] PAIN 0 06/21/2021 07:47:27 [facility] TEMPERATURE 95.2 06/21/2021 07:47:27 [facility] PULSE 97 06/21/2021 07:47:27 [facility] RESPIRATION 16 06/21/2021 07:47:27 [facility] Encounters Combined list of: 1) Encounters from Department of Veterans Affairs facilities going back up to the last 18 months. 2) Encounters from the Department of Defense facilities going back up to 280 months. Location Location Encounter Encounter Reason Attending ADM ID Stat us Disposition Source Details Type Number For Provider Date Date Visit Outpatient [id number] 01/26 [place] Encounter [id number] /2021 [facility] 24536-0.61 Diagnos DANIEL HUBBARD 02/03 [place] [facility]TRAIN [id number] is: LAYLA J [facility] G 1ST ENC ICD-10- HCS CM M20.40 Other hammer toe(s) (acquir ed), unspeci fied foot
with Provide r Comment s: Other Hammer Toe(s) (Acquir ed), unspeci fied Foot ORTHOPEDIC 48912-5.61 Diagnos DANIEL HUBBARD 02/27 [place] [id number] is: LAYLA Hardy [facility] MODIFICA ICD-10- HCS NOS CM M20.40 Other hammer toe(s) (acquir ed), unspeci fied foot
with Provide r Comment s: Other Hammer Toe(s) (Acquir ed), unspeci fied Foot Outpatient [id number] 03/09 [place] Encounter [id number] /2021 [facility] OFFICE O/P 39303-[address] [facility], 03/22 [place] [id number] is: IBLL L [facility] 40-54 MIN ICD-10- HCS CM E11.9 Type 2 diabete s mellitu s without complic ations< br/>wit h Provide r Comment s: Type 2 diabete s mellitu s ([facility] [id number] 6) HC PRO Diagnos MARTHA SMITH 04/07 [place] PHONE CALL [id number] is: ANANT E [facility] 5-10 MIN ICD-10- HCS CM I50.32 Chronic diastol ic (conges tive) heart failure
wi th Provide r Comment s: Diastol ic heart failure ([facility] [id number] 08) IMMUNIZATI Diagnos ROSIO, 05/15 [place] ADMIN [id number] is: THALIA GATICA [facility] ICD-10- HCS CM Z23 Encount er for immuniz ation<b r/>with Provide r Comment s: Encount er for Immuniz ation OFFICE O/P 42884-2 Diagnos [facility], 06/21 [place] MOD [id number] is: BILL L [facility] 30-39 MIN ICD-10- HCS CM I50.32 Chronic diastol ic (conges tive) heart failure
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 ing<br/ >with Provide r Comment s: Other specifi ed [employer] Machine [employer] ing OFFICE O/P 44469-7.61 Diagnos TORIBIO, 09/20 [place] EST MOD [id number] is: BILL L /2021 [facility] 30-39 MIN ICD-10- HCS CM E11.9 Type 2 diabete s mellitu s without complic ations< br/>wit h Provide r Comment s: Type 2 diabete s mellitu s (SCT 4307879 6) Outpatient 01470-0.61 09/26 [place] Encounter [id number] /2021 [facility] HC PRO 13579-7.61 Diagnos DEWALEXF,KULWINDER 12/19 [place] PHONE CALL [id number] is: ABEBE J /2021 [facility] 5-10 MIN ICD-10- HCS CM Z71.89 Other specifi ed career development counselor ing<br/ >with Provide r Comment s: Other specifi ed career development counselor ing Outpatient 46612-2.61 Lisa GANDARA 12/19 [place] Encounter [id number] ERRY /2021 [facility] Outpatient 16449-4.61 0513 [place] Encounter [id number] /2021 [facility] Outpatient 22431-0.61 05 [place] Encounter [id number] /2021 [facility] Outpatient 87573-0.61 01/09 [place] Encounter [id number] /2021 [facility] Outpatient 36398-7.61 01/17 [place] Encounter [id number] /2021 [facility] Outpatient 31256-7.61 01/18 [place] Encounter [id number] /2021 [facility] OFFICE O/P 99912-661 Diagnos TORIBIO, 02/02 [place] [id number] is: BILL L /2021 [facility] 40-54 MIN ICD-10- HCS CM I48.20 Chronic atrial fibrill ation, unspeci fied
with Provide r Comment s: Chronic atrial fibrill ation (SCT 7358374 04) Outpatient 41637-9.61 NICHOL,T 02/07 [place] En[place] [id number] ERRY /2021 [facility] Outpatient 28100-2.61 MATTHEW,SA 02/12 [place] Encounter [id number] RA R /2021 [facility] Outpatient 67657-6.61 02/26 [place] Encounter [id number] [facility] Outpatient 52463-6.61 AMTTHEW,SA 02/26 [place] Encounter [id number] RA R /2021 [facility] NRPSYC TST 29624-3.61 Diagnos HIMANSHU,FILIBERTO 04/02 [place] EVAL [id number] is: [facility] PHYS/QHP ICD-10- HCS EA CM 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
with Provide r Comment s: Unspeci fied Dementi a without Behavio ral Disturb ance OFFICE O/P 31561-361 Diagnos SWETA,KH 04/02 [place] NEW MOD [id number] is: JOSSELIN [facility] 45-59 MIN ICD-10- HCS CM E11.9 Type 2 diabete s mellitu s without complic ations< br/>wit h Provide r Comment s: Type 2 diabete s mellitu s (SCT 0122593 6) Outpatient 29868-3.61 04/02 [place] Encounter [id number] /2021 [facility] Outpatient 71033-8.61 MEHUL, 04/25 [place] Encounter [id number] HEATHER A /2021 [facility] NRPSY TST 50206-4.61 Diagnos HIMANSHU,FILIBERTO 04/26 [place] EVAL [id number] is: N [facility] PHYS/QHP ICD-10- HCS 1ST CM 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
with Provide r Comment s: Unspeci fied Dementi a without Behavio ral Disturb ance PRO 17028-0.61 Diagnos WAGNER KIRK 04/27 [place] PHONE CALL [id number] is: SE A [facility] 5-10 MIN ICD-10- [facility] CM Z65.8 Oth problem s related to psychos ocial circums tances< br/>wit h Provide r Comment s: Other specifi ed Problem s Related to Psychos ocial Circums tances OFFICE O/P 66558-2.61 Diagnos TORIBIO, 04/30 [place] [id number] is: BILL [facility] 40-54 MIN ICD-10- HCS CM I48.20 Chronic atrial fibrill ation, unspeci fied
with Provide r Comment s: Chronic atrial fibrill ation ([facility] [id number] 04) Social History Combined list of available smoking, tobacco, and other social history [facility]. Social History Type Response Date Comment Source Tobacco smoking status CA-TOBACCO NEVER USED 02/02/2022 [facility] History of tobacco use CA-TOBACCO NEVER USED 03/22/2021 [facility] History of tobacco use CA-TOBACCO NEVER USED 10/02/2019 [facility] History of tobacco use CA-TOBACCO NEVER USED 05/21/2018 [facility] History of tobacco use INPT NO TOBACCO USE IN 12/25/2017 [facility] LAST 30 DAYS History of tobacco use LIFETIME NON-TOBACCO 10/01/2017 [facility] USER History of tobacco use LIFETIME NON-TOBACCO 09/28/2016 [facility] USER History of tobacco use LIFETIME NON-TOBACCO 10/14/2015 [facility] USER History of tobacco use LIFETIME NON-TOBACCO 10/11/2014 [facility] USER History of tobacco use LIFETIME NON-TOBACCO 01/15/2007 [facility] USER Plan of Care List of future care activities from Department of Veterans Affairs facilities. Additional future care activities may be listed in the Assessment and Plan section. Date/Time Care Activity Care Activity Detail Facility 05/11/2022 AMBULATORY - NONE AMBULATORY - NONE [facility] Advance Directives List of completed, amended, or rescinded Advance Directives on record at [facility] facilities. An actual copy of the Directive is not included. Date Advance Directive Provider Source 04/18/2018 ADVANCE DIRECTIVE LARISSA SIGALA [facility] 04/18/2018 ADVANCE DIRECTIVE DISCUSSION LARISSA SIGALA [facility] 12/23/2017 CLINICAL WARNING FARHAT [facility] 05/11/2003 ADVANCE DIRECTIVE BERT CASILLAS [facility]
--- OUTSIDE RECORDS SUMMARY | 2022-05-01 10:20 | XMS_ITS | Encounter Summary ---
:1935 Author Organization [facility] rs Address [address] [place] [id number] Support Name Relationship Address Phone WADE LORENZO Unavailable [address] [place] [address] WADE LORENZO Unavailable [address] [place] [address] ARACELI MARSHALL Unavailable [address] [place] [address] MARILIA MARSHALLA Unavailable [address] [place] [address] Insurance Providers: All historical and current Section [...] [place] Aug 19, [id number] Kristel EDDY [facility] (WNR) ADVANTAGE (WNR) 2017 8 [id number] [phone] ENON LICENSE OF [facility] 1 [place] MED[place]ARE M[place] Aug [id number] Kristel [facility] (WNR) 2016 8 [id number] [phone] ENON LICENSE OF [facility] 1 Selected Encounter This section includes the information on record at [place] for the Encounter. Date/Time Encounter Type Encounter Reason Provider Source Description Sep 20, 2021 OFFICE O/P EST PRIMARY ICD-10-CM E11.9 NENA GUNTER 07:45 AM MOD 30-39 MIN CARE/MEDICINE Type 2 diabetes JOANNE L mellitus without complications with Provider Comments: Type 2 diabetes mellitus ([facility] [id number]) IHE Encounter Template Text not used by [place] Assessments - Encounter Diagnoses This section includes the primary and secondary diagnoses documented for the Encounter. Date/Time Primary/Secondary Diagnosis Name Provider Source Diagnosis Sep 20, 2021 PRIMARY Type 2 diabetes NENA GUNTER [facility] 08:12 AM mellitus without JOANNE L [facility] complications Plan of Treatment: Future Appointments (+ 6 months) and Future Tests (+/- 45 days) The Plan of Treatment section includes future care activities for the patient from all [place] treatmentfacilities. This section includes future appointments and future orders which are active, pending orscheduled.Future Appointments This section includes appointments that were scheduled to occur 6 months from the date of the Encounter, up to a maximum of 20 appointments. The data comes from all [place] treatment facilities. Appointment Date/Time Appointment Type Appointment Facili ty Name December 19, 2021 11:01 AM AMBULATORY - NONE [facility] December 20, 2021 06:45 AM AMBULATORY - [facility] Feb 02, 2022 09:30 AM AMBULATORY - [facility] Feb 07, 2022 01:37 PM AMBULATORY - NONE [facility] Feb 12, 2022 07:58 PM AMBULATORY - NONE [facility] Feb 26, 2022 07:36 PM AMBULATORY - NONE [facility] Mar 12, 2022 09:30 AM AMBULATORY - [facility] Lab Results: +/- 30 days of the encounter This section includes the Chemistry and Hematology Lab Results on record with MT for the patient. Radiology Reports and Pathology Reports are provided separately, in subsequent sections.Lab Results This section contains the Chemistry/Hematology Results that were resulted 30 days before or 30 daysafter the date of the Encounter. Date/Time Source Result Type Result - Unit Interpretation Reference Range Comment Sep 20, 2021 10:[address] [facility] URINALYSIS Specim en Type: URINE No comment enter ed. Ordering Provid er: BILL GUNTER Felipe Report Released Date/Time: Sep 20, 2021 08:13 AM Reporting Lab: [facility] [address] [facility] [id number] Performing Lab: [facility] [address] [facility] [id number] URINE COLOR LIGHT-YELLOW SPECIFIC GRAVITY 1.010 1.003-1.035 URINE BILIRUBIN NEGATIVE NEGATIVE URINE KETONES NEGATIVE NEGATIVE URINE GLUCOSE NEGATIVE <30 URINE PROTEIN NEGATIVE <20 URINE PH 5.0 5.0-8.0 URINE WBC/HPF 8 H 0-7 URINE BACTERIA NONE SEEN URINE RBC/HPF 1 0-3 APPEARANCE CLEAR SQUAMOUS EPITHELIAL NONE SEEN URINE BLOOD NEGATIVE NEGATIVE URINE NITRITE NEGATIVE NEGATIVE LEUKOCYTE ESTERASE 25 NEGATIVE Sep 20, 2021 06:38 [facility] HEMOGLOBIN A1C Specimen Type: BLOOD AM No comment enter ed. Ordering Provid er: BILL GUNTER Report Released Date/Time: Jun 21, 2021 08:07 AM Reporting Lab: [facility] [address] Performing Lab: [facility] [id number] HEMOGLOBIN A1C 7.8 H 4.0-6.0 Sep 20, 2021 06:[address] [facility] IRON GROUP Specim en Type: SERUM No comment enter ed. Ordering Provid er: BILL GUNTER Report Released Date/Time: Jun 21, 2021 08:23 AM Reporting Lab: [facility] [id number] Performing Lab: [facility] [address] IRON 34 L 65-175 TIBC,CALCULATED 348 250-425 FERRITIN 78.4 21.8-274.7 IRON SATURATION 10 L 20-50 TRANSFERRIN 278 163-382 Sep 20, 2021 [facility] BASIC METABOLIC Specimen Typ e: PLASMA 06:38 AM PANEL+MG No comment enter ed. Ordering Provid er: BILL GUNTER Report Released Date/Time: Jun 21, 2021 08:07 AM Reporting Lab: [facility] [id number] Performing Lab: [facility] [id number] CREATININE 1.7 H 0.7-1.2 UREA NITROGEN 24 8-26 GLUCOSE 185 H 74-100 SODIUM 140 136-145 POTASSIUM 3.7 3.5-5.1 CHLORIDE 107 98-107 CO2 24 22-29 CALCIUM 9.4 8.4-10.2 MAGNESIUM 1.6 1.6-2.6 ANION GAP 9 5-15 ESTIMATED GFR(eGFR) 38 L >60 Sep 20, 2021 06:[address] [facility] CBC Specim en Type: BLOOD No comment enter ed. Ordering Provid er: BILL GUNTER Report Released Date/Time: Jun 21, 2021 08:09 AM Reporting Lab: [facility] [address] [facility] [phone] Performing Lab: [facility] [address] [facility] [address] WBC 9.17 4.0-11.0 RBC 4.21 L 4.6-6.2 HGB 12.0 L 13.5-17.9 HCT 37.9 L 41-54 MCV 90.0 80-100 MCH 28.5 27-33 MCHC 31.7 L 32.0-37.5 PLT 298 150-400 MPV 10.4 7.4-10.4 RDW 15.7 H 11.5-14.5 Vital Signs: All taken on the encounter date This section contains inpatient and outpatient Vital Signs collected on the date of the Encounter. Date/Time Temperature Pulse Blood Respiratory SP02 Pain Height Weight Edvin dy Source Pressure Rate Mass Index Sep 20 F 96 133/82 18 /min 98 % 0 73.5 in 275 lb 36 [place] P 2021 07:38 /min mm[Hg] IS [facility] Social History: Smoking Status (Most current) and Tobacco Use (All prior to encounter date) This section includes the most current, and the historical, smoking and tobacco-related health factors from the [place] facility where the Encounter took place.Current Smoking Status This section includes the most current smoking, or tobacco-related health factor, from the [place] facility where the Encounter took place. Date/Time Current Smoking Status Comment Facility Mar 22, 2021 07:45 AM [place] Tobacco Use History This section includes a history of the smoking, or tobacco- related health factors, that were collected on or before the date of the Encounter. The data comes from the [place] facility where the Encounter took place. Date/Time Smoking Status/Tobacco Use Comment [facility] caroline Oct 02, 2019 10:02 AM [place]-TO[place]ACCO [place] USED [place] [facility] May 21, 2018 09:05 AM [place]-TOBACCO NEVER USED [place] [facility] December 25, 2017 06:14 PM INPT NO TOBACCO USE IN LAST [address] [facility] Oct 01, 2017 07:34 AM LIFETIME NON-TOBACCO USER [facility] Sep 28, 2016 08:44 AM LIFETIME NON-TOBACCO USER [facility] Oct 14, 2015 07:52 AM LIFETIME NON-TOBACCO USER [facility] Oct 11, 2014 07:59 AM LIFETIME NON-TOBACCO USER [facility] January 15, 2007 07:55 AM LIFETIME NON-TOBACCO USER [facility] Advance Directives: All historical and current Section Date Range: From patient's date of to the date document was created. This section includes ALL of a patient's completed or amended [place] Advance and Rescinded Directives. The entries below indicate that a directive exists for the patient, but an actual copy is not included with this document. The data comes from all [place] facilities. Date Advance Directives Provider Source Apr 18, 2018 ADVANCE DIRECTIVE L[address]SA SIGALA [facility] Apr 18, 2018 ADVANCE DIRECTIVE DISCUSSION LARISSA SIGALA [facility] December 23, 2017 CLINICAL WARNING FARHAT [facility] May 11, [address] B[address] [facility] Encounter Notes: All associated encounter notes This section contains the clinical notes associated to the Encounter. Date/Time Encounter Note(s) Provider Source Sep 21, 2021 11:36 AM [facility]: FOLLOW UP RESULTS LETTER STANDARD TITLE: LETTERS DATE OF NOTE: SEP 21, 2021@11:36 ENTRY DATE: SEP 21, 2021@11:37:07 AUTHOR: BILL GUNTER EXP COSIGNER: URGENCY: STATUS: COMPLETED [facility] [address] [place] [address] Sep LUISANA EDDY [id number] [facility] [id number] Dear : I am writing to inform you o f the results of testing that you had done recently at the [facility]. - Complete Blood Count (red/white blood cell cou nts and platelets) White count: WBC 9.17 (09/20/21) (normal is 4.0 -11.0) Hemoglobin: HGB 12.0 L (09/20/21) (normal Male is 13.5-17.9; Female is 11.5-16) Hematocrit: HCT 37.9 L (09/20/21) (normal Male is 41-54; Female is 34.5-48) Platelets: PLT 298 (09/20/21) (normal is 150-40 0) - Electrolytes including sodium and potassium SODIUM 140 (09/20/21) (normal is 136-145) POTASSIUM 3.7 (09/20/21) (normal is 3.5-5.1) - Calcium CALCIUM 9.4 (09/20/21) (normal is 8.5-10.1) - Kidney function CREATININE 1.7 H (09/20/21)(normal Male = less than 1.2; normal Female = less than 1.0)) UREA NITROGEN 24 (09/20/21) (normal Male is 8-2 6; normal Female is 10-20) - Blood Sugar GLUCOSE 185 H (09/20/21) (normal is 74 - 106 if fasting) - Hemoglobin A1C (normal 4.0-6.0) Collection DT Spec HGBA1C 09/20/2021 06:38 BLOOD 7.8 H 06/21/2021 06:43 BLOOD 7.7 H 03/22/2021 06:50 BLOOD 6.6 H Your A1c is 7.8% which is stable from the last c heck. Your diabetes control remains in the desired range (A1c less than 8%). Your kidney function appears to be fairly stable. Your iron stores are slightly low which is consistent with mild iron deficiency anemia. Overall the anemia is better than it was when it was last checked. I think it is reasonable to ta ke an iron supplement if you would like. Iron can be quite constipating howev er. Please let me know if you are interested in this, and we can also discuss it at our next appointment here in the office. Your urine did not show an obvious infection but did show evidence of a few white cells. I think it is r easonable to hold on antibiotics at this point given how well you are feeling. If your urinary sympto ms return, please let us know immediately. If you have any further ques tions or problems, please contact our nursing staff or provider at the following number: . Sincerely, Bill Gunter MD Physician Sep 20, 2021 08:04 AM INTERNAL MEDICINE NOTE: BILL GUNTER [facility] LOCAL TITLE: MEDICINE CLINIC NOTE STANDARD TITLE: INTERNAL MEDICINE NOTE DATE OF NOTE: SEP 20, 2021@08:04 ENTRY DATE: SEP 20, 2021@08:04:47 AUTHOR: BILL GUNTER COSIGNER: URGENCY: STATUS: COMPLETED Assessment and plan: Type 2 diabetes mellitus goal A1c less than 8% ( age and renal function) -Regimen deescalated March 2021 secondary to re peated hypoglycemic episodes while A1c was in the 6% range -A1c 7.7% on last check in June. Repeat A1c is pending today. -Current regimen Metformin 500 mg twice daily Pioglitazone 30 mg every morning Glipizide 5 mg every morning -On statin -Not on BERE or ARB -Foot exam up-to-date per podiatry -Yearly eye exam up-to-date by community ophthal mology -A1c in 3 months prior to next appointment Elevated PSA with BPH Urinary outlet obstruction with bacterem ia requiring hospitalization January 2021 TURP February 2021 -follows with urology Dr Moreno at [facility] -Continue finasteride 5 mg daily. Refilled today Chronic kidney disease stage 3 - Creatinine pending -Continue vitamin D Diastolic heart failure HTN Dyslipidemia Chronic atrial fibrillation -Managed by cardiology and in [place], Dr. Chu . Patient did not have his most recent follow-up appoin [facility] scheduled. He will call Dr. Harrison's office to see if he can get this arranged. -Current regimen Metoprolol succinate 100 mg daily Rivaroxaban 20 mg daily Atorvastatin 10 mg daily Lasix 20 mg daily Mild anemia, asymptomatic -Hemoglobin available during appointment and is 12, which is improved from last check. Iron studies are pending. -Patient entirely asymptomatic at this time. Giv en improvement of hemoglobin will defer FIT card and UA testing. Cons ider iron supplementation depending on iron study results when they are available for chris álvarez. corns and calluses Recent toenail injury -Continue follow-up with podiatry in the [facility] Dr. Sweeney -Continue intermittent prosthetics referrals for shoes OBIE -Continue nightly CPAP Gout -Continue allopurinol 100 mg daily Chronic low back pain -Currently not an issue -Physical therapy as needed -Has a history of spine injections in the past. Referral to pain intervention clinic as needed Mild dysuria 2 days ago, now resolved -Check UA today Health maintenance: -Has aged out of routine colon cancer screening -PSA managed by community urology -Does not meet criteria for lung cancer screening as he is a lifelong non-smoker -Does not meet criteria for AAA screening RTC in 3 months for diabetic check in with A1c B MP prior. Nurse's notes reviewed from today. LUISANA EDDY is a 85 year old MALE with the following Chief complaint: Primary care follow-up of overall medical care. Patient states 2 days ago he had some mid to lower central abdominal discomfort. Roach sharp and burning. Was associated with urin ation. Symptoms lasted a few hours and then went away and he has been asymptomatic ever since. He has had no fevers or chills. No nausea or vomiting. Is tole rating p.o. at his baseline. Social/family history: Lives alone but has a nice social network locall y Lifelong non-smoker Nondrinker No illicit drug use HPI/ROS: As above otherwise negative for acute c omplaints Active problems - Computerized Problem List is t he source for the followin. Type 2 diabetes mellitus (SNOMED CT [id number] ) 2. OBESITY, UNSP 3. Psoriasis * 4. Social and personal history finding - Lives alone. Has brother in [place]. Friends felipe breaux. 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 5. History of adenomatous polyp of colon - Last c-scope 05/09/15 at [facility]. Two small polyp s. - 5 year follow up if appropriate. 6. Elevated PSA - follows with urology at [facility] - with BPH on terazosin - February 2021: TURP at [facility] 7. Chronic kidney disease stage 3 8. Diastolic heart failure - w/ HTN and dyslipidemia 9. Chronic atrial fibrillation - metoprolol and rivaroxaban 10. history of hospitalization - January 2021: Bacteremia secondary to urinary ou tflow obstruction from BPH - underwent a TURP at [facility] February 2021 11. corns and calluses - followed by podiatry in the community in [facility] 12. Gout - on allopurinol Allergies: SIMVASTATIN (Feb 29, 2004) CEPHALEXIN (Mar [...] MOUTH EVERY DAY FOR VITAMIN-D SUPPLEMENTATION. 5) FUROSEMIDE 20MG TAB TAKE ONE TABLET BY MOUTH EVERY ACTIVE DAY FOR LOWER EXTREMITY SWELLING; OKAY TO TAKE AN EXTRA DOSE DAILY NEEDEDFOR INCREASED SWELLIN G. 6) GLIPIZIDE 5MG TAB TAKE ONE TABLET BY MOUTH EV ACTIVE FOR DIABETES -TAKE 30 MINUTES BEFORE MEAL 7) METFORMIN HCL 1000MG TAB TAKE ONE-HALF [...] WITH A MEAL TO PREVENT BLOOD CLOTS 11) TABLET CUTTER USE TO CUT TABLETS ACTIVE Pending Outpatient Medications Status 1) FINASTERIDE 5MG TAB TAKE ONE TABLET BY MOUTH EVERY PENDING DAY FOR PROSTATE EXAM: VS: Temp: 96 F [35.6 C] (09/20/2021 07:38) BP: 133/82 (09/20/2021 07:38) Pulse:96 (09/20/2021 07:38) Resp: 18 (09/20/2021 07:38) Pain: 0 (09/20/2021 07:38) Weight: WEIGHTS IN LAST 6 MONTHS: 275 (SEP 20, 2021@07:38:57) 283.2 (JUN 21, 2021@07:47:27) General Appearance: Elderly but no acute distre ss Mental Status: Alert and oriented Chest/T Spine: no significant deformities Cardiac: Regular rate and rhythm JVP: None Lungs: Speaking in full sentences with no incre ased work of breathing. Clear bilaterally Abdomen: Quiet bowel sounds but certainly prese nt. Obese nontender Extremities: Edema 1+ bilaterally Gait: Independent Diabetic Eye Screening: Patient declined eye exam at this encounter. Exam is up-to-date in the community Diabetic Foot Exam - Complete: Patient declined foot examination at this time. Comment: Exam is up-to-date in the community an d performed by podiatry /es/ Bill Gunter MD Physician Signed: 09/20/2021 08:12 Sep 20, 2021 07:40 AM INTERNAL MEDICINE OUTPATIENT NOTE: LEXA RUIZ [facility] LOCAL TITLE: MEDICINE CLINIC NURSING NOTE STANDARD TITLE: INTERNAL MEDICINE OUTPATIENT NOT E DATE OF NOTE: SEP 20, 2021@07:40 ENTRY DATE: SEP 20, 2021@07:40:12 AUTHOR: LEXA RUIZ EXP COSIGNER: URGENCY: STATUS: COMPLETED MEDICINE CLINIC NURSING NOTE Has ADDENDA * TYPE OF VISIT: Appointment Check In Type of appointment: In-person appointment REASON FOR VISIT: f/u DM and BP ALLERGIES: SIMVASTATIN (Feb 29, 2004) CEPHALEXIN (Mar 01, 2004) VITAL SIGNS: Blood Pressure: 133/82 (09/20/2021 07:38) Pulse: 96 (09/20/2021 07:38) Respiration: 18 (09/20/2021 07:38) Temperature: 96 F [35.6 C] (09/20/2021 07:38) Weight: 275 lb [125.0 kg] (09/20/2021 07:38) Height: 73.5 in [186.7 cm] (09/20/2021 07:38) BMI: 35.9 O2 Sat: 98% (09/20/2021 07:38) Pain: 0 (09/20/2021 07:38) PAIN SCREEN: Patient is not having significant pain that the y wish to discuss with their provider today. MEDICATION Active Outpatient Medications (including Suppli es): ACCU-CHEK GUIDE (GLUCOSE) TEST STRIP USE 1 STRI P TWICE ACTIVE WEEKLY TO CHECK BLOOD SUGAR--USE WITHIN 3 MINUT ES OF REMOVING FROM CONTAINER ALLOPURINOL 100MG TAB TAKE ONE TABLET BY MOUTH EVERY DAY ACTIVE ATORVASTATIN CALCIUM 10MG TAB TAKE ONE-HALF TAB LET BY ACTIVE MOUTH EVERY DAY CHOLECALCIF 25MCG (D3-1,000UNIT) TAB TAKE 2000U NIT BY ACTIVE MOUTH EVERY DAY FOR VITAMIN-D SUPPLEMENTATION. FINASTERIDE 5MG TAB TAKE ONE TABLET BY MOUTH EV KRUNAL DAY FOR ACTIVE (S) PROSTATE FUROSEMIDE 20MG TAB TAKE ONE TABLET BY MOUTH EV KRUNAL DAY FOR ACTIVE LOWER EXTREMITY SWELLING; OKAY TO TAKE AN EXTRA DOSE DAILY NEEDEDFOR INCREASED SWELLING. GLIPIZIDE 5MG TAB TAKE ONE TABLET BY MOUTH EVER Y DAY FOR ACTIVE DIABETES -TAKE 30 MINUTES BEFORE MEAL METFORMIN HCL 1000MG TAB TAKE ONE-HALF TABLET B Y MOUTH TWO ACTIVE TIMES A DAY METOPROLOL SUCCINATE 200MG SA TAB TAKE ONE-HALF TABLET BY ACTIVE MOUTH EVERY DAY PIOGLITAZONE HCL 30MG TAB TAKE ONE TABLET BY MO UTH EVERY ACTIVE MORNING FOR BLOOD SUGAR RIVAROXABAN 20MG TAB TAKE ONE TABLET BY MOUTH E VERY ACTIVE EVENING WITH A MEAL TO PREVENT BLOOD CLOTS TABLET CUTTER USE TO CUT TABLETS ACTIVE PTSD Screening: PC-PTSD-5 A PTSD screening test (PC-PTSD-5) was negative (score=0). Have you ever had any experience that was so fr ightening, horrible or upsetting that, IN THE PAST MONTH, you: Have you ever experienced this kind of event? NO 1. Had nightmares about the event(s) or thought about the event(s) when you did not want to? Response not required due to responses to other questions. 2. Tried hard not to think about the event(s) o r went out of your way to avoid situations that reminded you of the ev ent(s)? Response not required due to responses to other questions. 3. Been constantly on guard, watchful, or easil y startled? Response not required due to responses to other questions. 4. Roach numb or detached from people, activitie s, or your surroundings? Response not required due to responses to other questions. 5. Roach guilty or unable to stop blaming yourse lf or others for the event(s) or any problems the event(s) may have caused? Response not required due to responses to other questions. CHF Weight Monitoring Educ/[place]: CHF and Weight Monitoring Education Brochure Guidelines for Weighing Yourself When You Have Congestive Heart Failure given to patient at this visit. Brochu re includes content that advises patient to: 1. Weigh themselves daily. 2. Keep a record of daily weights. 3. Call provider if weight changes > 2 lbs over night. 4. Call provider if weight changes > 3 lbs in a week. Patient has no questions. Level of Understanding: Good /ronni/ LEXA RUIZ LPN LPN Signed: 09/20/2021 07:41 09/20/2021 ADDENDUM STATUS: COMPLETED EDUCATION: PARTICIPANT(s): Patient Clean Catch Urine Instructed in collection of clean catch urine. Printed instructions provided and participant(s) is able to repeat t hese instructions accurately. Urinalysis sent to lab /yvette RUIZ LPN LPN Signed: 09/20/2021 10:21
--- OUTSIDE RECORDS SUMMARY | 2022-05-01 10:21 | XMS_ITS | Encounter Summary ---
:1935 Author Organization [facility] rs Address [address] [place] [address] Support Name Relationship Address Phone WADE LORENZO Unavailable [address] [place] [address] WADE LORENZO Unavailable [address] [place] [address] ARACELI MARSHALL Unavailable [address] [place] [address] ARACELI MARSHALL Unavailable [address] [place] [address] Insurance Providers: All historical and current Section [...] Bales [place] M[place] Aug 19, [id number] Kristel EDDY [facility] (WNR) ADVANTAGE (WNR) 2016 8 [id number] [phone] [facility] 1 [place] M[place] Aug 19, [id number] Kristel EDDY [facility] (WNR) ADVANTAGE (WNR) 2017 03 [id number] [phone] [facility] 1 Selected Encounter This section includes the information on record at [place] for the Encounter. Date/Time Encounter Type Encounter Reason Provider Source Description Jul 06, 2021 09:38 Outpatient TELEPHONE PRIMARY NIRAJ SONI [facility] En[facility] Template Text not used by [place] Plan of Treatment: Future Appointments (+ 6 months) and Future Tests (+/- 45 days) The Plan of Treatment section includes future care activities for the patient from all [facility]. This section includes future appointments and future orders which are active, pending orscheduled.Future Appointments This section includes appointments that were scheduled to occur 6 months from the date of the Encounter, up to a maximum of 20 appointments. The data comes from all [place] treatment facilities. Appointment Date/Time Appointment Type Appointment Facili ty Name Jul 17, 2021 11:00 AM AMBULATORY - MEDICINE [facility] Sep 20, 2021 06:45 AM AMBULATORY - NONE [facility] Sep 20, 2021 07:45 AM AMBULATORY - MEDICINE [facility] December 19, 2021 11:01 AM AMBULATORY - NONE [facility] December 20, 2021 06:45 AM AMBULATORY - NONE [facility] Lab Results: +/- 30 days of the [...] Interpretation Reference Range Comment Jul 17, 2021 [facility] MICROALBUMIN/CREATININE RATIO Specimen Type: URINE 11:06 AM URINE No comment enter ed. Ordering Provid er: BILL ROONEY Report Released Date/Time: Jul 06, 2021 05:15 PM Reporting Lab: [facility] [address] [facility] [address] Performing [facility]: [facility] [address] CREATININE,UR RANDOM 94.9 58.0-161. 0 ALB/CREAT RATIO,UR 122.8 H <29.9 MICROALBUMIN,UR 116.5 H <29.9 Jun 21, 2021 06:43 [facility] HEMOGLOBIN A1C Specimen Type: BLOOD AM No comment enter ed. Ordering Provid er: BILL ROONEY Report Released Date/Time: Mar 22, 2021 08:23 AM Reporting Lab: [facility] [address] [facility] [address] Performing Lab: [facility] [address] [facility] [address] HEMOGLOBIN A1C 7.7 H 4.0-6.0 Jun 21, 2021 06:43 AM [facility] CBC Specim en Type: BLOOD No comment enter ed. Ordering Provid er: BILL ROONEY Report Released Date/Time: Mar 22, 2021 11:13 AM Reporting Lab: [facility] [address] [facility] [address] Performing Lab: [facility] [address] WBC 6.71 4.0-11.0 RBC 3.68 L 4.6-6.2 HGB 10.8 L 13.5-17.9 HCT 34.7 L 41-54 MCV 94.3 80-100 MCH 29.3 27-33 MCHC 31.1 L 32.0-37.5 PLT 249 150-400 MPV 10.0 7.4-10.4 RDW 15.0 H 11.5-14.5 Jun 21, 2021 [facility] BASIC METABOLIC Specimen Typ e: PLASMA 06:43 AM PANEL+MG No comment enter ed. Ordering Provid er: BILL ROONEY Report Released Date/Time: Mar 22, 2021 08:23 AM Reporting Lab: [facility] [address] [facility] [address] Performing Lab: [facility] [address] CREATININE 1.4 H 0.7-1.2 UREA NITROGEN 17 [...] smoking and tobacco-related health factors from the [facility] where the Encounter took place.Current Smoking Status This section includes the most current smoking, or tobacco-related health factor, from the [place] facility where the Encounter took place. Date/Time Current Smoking Status Comment Facility Mar 22, 2021 07:45 AM HI-TOBACCO NEVER USED [facility] Tobacco Use History This section includes a history of the smoking, or tobacco- related health factors, that were collected on or before the date of the Encounter. The data comes from the [place] facility where the Encounter took place. Date/Time Smoking Status/Tobacco Use Comment Xavi chanel Oct 02, 2019 10:02 AM HI-TOBACCO NEVER USED [place] [facility] May 21, 2018 09:05 AM HI-TOBACCO NEVER USED [place] [facility] December 25, 2017 06:14 PM INPT NO TOBACCO USE IN LAST 30 DAYS [facility] Oct 01, 2017 07:34 AM LIFETIME NON-TOBACCO USER [facility] Sep 28, 2016 08:44 AM LIFETIME NON-TOBACCO USER [facility] Oct 14, 2015 07:52 AM LIFETIME NON-TOBACCO USER [facility] Oct 11, 2014 07:59 AM LIFETIME NON-TOBACCO USER [facility] January 15, 2007 07:55 AM LIFETIME NON-TOBACCO USER [facility] Advance Directives: All historical and current Section Date Range: From patient's date of to the date document was created. This section includes ALL of a patient's completed or amended [place] Advance and Rescinded Directives. The entries below indicate that a directive exists for the patient, but an actual copy is not included with this document. The data comes from all [facility]. Date Advance Directives Provider Source Apr 18, 2018 ADVANCE DIRECTIVE LARISSA SIGALA [facility] Apr 18, 2018 ADVANCE DIRECTIVE DISCUSSION RAE SIGALAN [facility] December 23, 2017 CLINICAL WARNING FARHAT SCHMID [facility] May 11, 2003 ADVANCE DIRECTIVE BERT CASILLAS [facility] Encounter Notes: All associated encounter notes This section contains the clinical notes associated to the Encounter. Date/Time Encounter Note(s) Provider Source Jul 06, 2021 09:38 AM PACT NOTE: ZARA SONI [facility] LOCAL TITLE: COVID-19 PREVENTIVE HEALTH INVENTO STANDARD TITLE: PACT NOTE DATE OF NOTE: JUL 06, 2021@09:38 ENTRY DATE: JUL 06, 2021@09:38:40 AUTHOR: ZARA SONI EXP COSIGNER: URGENCY: STATUS: COMPLETED SUBJECT: COVID-19 PREVENTIVE HEALTH INVENTORY COVID-19 Preventive Health Inventory Patient confirms location is safe and private fo r visit. The method of contact is telephone. Patient Contact Details: Best contact number for backup/emergency commun ication with patient: [phone] Patient Location/Surroundings During Visit: Patient location during visit: Home [address] [place], [place] [address] [place], [place] [address] Next scheduled appointments: 09/20/2021 06:45 [facility] [[email or web address]] LAB BLOOD DRAWING [place] 09/20/2021 07:45 [facility] [[email or web address]] PACT IRIS WH 4D The patient has had a prior vaccination for COVI D-19. Blood Pressure The patient's last blood pressure reading was wi thin the past year. Seasonal Flu Vaccine The patient has received the influenza vaccine t his season. Colorectal Cancer Screening The [facility] is not currently due for colorectal cancer screening. Suicide Screen The patient is not currently due for a suicide s creen. Diabetes Management Hemoglobin A1C The patient is not currently due for a Hemoglob in A1C. Diabetes Kidney Screening A Microalbumin/creatinine order was placed per [facility] [[email or web address]] PACT Preventative Health team protocol pending Provider review/approval. [facility] reports, I had this checked several years ago at the [facility] in [place] but it has been quite some time and I proba rosa should have this checked again. Please follow- up with to schedule lab appoint ment and place return to clinic orders for appointment if approved. Will co-sign MSP P ACT PCP/[facility] [[email or web address] PACT Clinical Associate to follow-up with . Diabetes Foot Check Patient reports cracks in skin, corns, callouse s or blisters. Comment: [facility] reports, I have a callous on bottom right foot, currently healing. I have seen and still see podiatry ([facility] in [place]) for this. Patient reports other concerns with the feet. Concerns: [facility] reports, My second toe right foot toenail was removed, currently healing. I have seen podiatry ([facility] [place]) for this. Plan: The patient was referred to Primary Care Provid er for follow up due to abnormal findings per [facility] [[email or web address]] PACT template ofelia wang. Arley is currently seeing a hydraulics engineer at the [facility] in [place] and reports he is going in for routine diabetic ghazala t checks and that he has been seen for these concerns above. Will co-sig n [facility] [[email or web address]] PACT PCP as an FYI regarding above as per protocol. Diabetes Eye Screening Diabetes eye screening has been completed outsi de of the [place]. Requested that the fax records to the Primary Care Provider or bring records with to his next appointment at the [facility]. ve rbalized understanding and in agreement. Comment: reports, Last eye exam December or January 2021, [facility] in [place], will bring copy of record s to next [facility] appointment. Core Drier contacted [facility] via telephone to perfor m [facility] [[email or web address] PACT Preventive Health Screenings as indicated by M PACT Preventative Health Team. See above answers to health screenings. Vetera n reports in a safe and private location and denies distress during call. had no questions o r concerns during call. Call ended successfully. Core Drier co-signing [facility] [[email or web address]] PACT PCP/[facility] [[email or web address]] PACT Clinical Associate to follow-up with regarding microalbumin/creatinine lab an d if approved, please place return to clinic orders. Please see above under diabetic kidney screening. Core Drier will co-sign [facility] [[email or web address]] PACT PCP as an FYI per p rotocol regarding [facility] reported abnormal diabetic foot findings. Ruslana n reports currently being managed by [facility]. [facility] also reports, I feel the best I have ever fe lt in a long time. Please follow-up with as appropriate regarding above. /ronni/ ZARA SONI RN Signed: 07/06/2021 10:18 Receipt Acknowledged By: * AWAITING SIGNATURE * BILL ROONEY * AWAITING SIGNATURE * VINCENT READ
--- OUTSIDE RECORDS SUMMARY | 2022-05-01 10:21 | XMS_ITS | Encounter Summary ---
:1935 Author Organization [facility] rs Address [address] [place] [address] Support Name Relationship Address Phone WADE LORENZO Unavailable [address] [place] [address] WADE LORENZO Unavailable [address] [place] [address] ARACELI MARSHALL Unavailable [address] [place] [address] MARILIA MARSHALLA Unavailable [address] [place] [address] Insurance Providers: All historical and current Section [...] Number Bales [place] M[place] Aug [id number] Kristel [facility]WNR) 2016 8 [id number] [phone] [facility] 1 [place] MED[place] MCR Aug [id number] 800 Kristel [facility] (WNR) 2017 03 [id number] [phone] [facility] 1 Selected Encounter This section includes the information on record at [place] for the Encounter. Date/Time Encounter Type Encounter Reason Provider Source Description Jul 17, 2021 OFFICE O/P EST PRIMARY ICD-10-CM Z71.89 DORCAS CONTI 11:00 AM MINIMAL PROB CARE/MEDICINE Other specified E M counseling with Provider Comments: Other specified Counseling IHE Encounter Template Text not used by [place] Assessments - Encounter Diagnoses This section includes the primary and secondary diagnoses documented for the Encounter. Date/Time Primary/Secondary Diagnosis Name Provider Source Diagnosis Jul 17, 2021 PRIMARY Other specified ASAD CONTI [place] 11:04 AM counseling E M [facility] Plan of Treatment: Future Appointments (+ 6 months) and Future Tests (+/- 45 days) The Plan of Treatment section includes future care activities for the patient from all [place] treatmentfacilities. This section includes future appointments and future orders which are active, pending orscheduled.Future Appointments This section includes appointments that were scheduled to occur 6 months from the date of the Encounter, up to a maximum of 20 appointments. The data comes from all [place] treatment facilities. Appointment Date/Time Appointment Type Appointment Facili ty Name Sep 20, 2021 06:45 AM AMBULATORY - NONE [facility] Sep 20, 2021 07:45 AM AMBULATORY - MEDICINE [facility] December 19, 2021 11:01 AM AMBULATORY - NONE [facility] December 20, 2021 06:45 AM AMBULATORY - NONE [facility] Lab Results: +/- 30 days of the encounter This section includes the Chemistry and Hematology Lab Results on record with [place] for the patient. Radiology Reports and Pathology Reports are provided separately, in subsequent sections.Lab Results This section contains the Chemistry/Hematology Results that were resulted 30 days before or 30 daysafter the date of the Encounter. Date/Time Source Result Type Result - Unit Interpretation Reference Range Comment Jul 17, 2021 [facility] MICROALBUMIN/CREATININE RATIO Specimen Type: URINE 11:06 AM URINE No comment enter ed. Ordering Provid er: BILL ROONEY Report Released Date/Time: Jul 06, 2021 05:15 PM Reporting Lab: [facility] [address] [facility] [address] Performing Lab: [facility] [address] [facility] [address] CREATININE,UR RANDOM 94.9 58.0-161. 0 ALB/CREAT RATIO,UR 122.8 H <29.9 MICROALBUMIN,UR 116.5 H <29.9 Jun 21, 2021 06:43 [facility] HEMOGLOBIN A1C Specimen Type: BLOOD AM No comment enter ed. Ordering Provid er: BILL ROONEY Report Released Date/Time: Mar 22, 2021 08:23 AM Reporting Lab: [facility] [address] [facility] [address] Performing Lab: [facility] [address] [facility] [address] HEMOGLOBIN A1C 7.7 H 4.0-6.0 Jun 21, 2021 [facility] BASIC METABOLIC Specimen Typ e: PLASMA 06:43 AM PANEL+MG No comment enter ed. Ordering Provid er: BILL ROONEY Report Released Date/Time: Mar 22, 2021 08:23 AM Reporting Lab: [facility] [address] [facility] [address] Performing Lab: [facility] [address] [facility] [address] CREATININE 1.4 H 0.7-1.2 UREA NITROGEN 17 8-26 GLUCOSE 176 H 74-100 SODIUM 141 136-145 POTASSIUM 3.9 3.5-5.1 CHLORIDE 110 H 98-107 CO2 21 L 22-29 CALCIUM 9.0 8.4-10.2 MAGNESIUM 1.7 1.6-2.6 ANION GAP 10 5-15 ESTIMATED GFR(eGFR) 48 L >60 Jun 21, 2021 06:43 AM [facility] CBC Specim en Type: BLOOD No comment enter ed. Ordering Provid er: BILL ROONEY Report Released Date/Time: Mar 22, 2021 11:13 AM Reporting Lab: [facility] [address] [facility] [address] Performing Lab: [facility] [address] WBC 6.71 4.0-11.0 RBC 3.68 L 4.6-6.2 HGB 10.8 L 13.5-17.9 HCT 34.7 L 41-54 MCV 94.3 80-100 MCH 29.3 27-33 MCHC 31.1 L 32.0-37.5 PLT 249 150-400 MPV 10.0 7.4-10.4 RDW 15.0 H 11.5-14.5 Social History: Smoking Status (Most current) and Tobacco Use (All prior to encounter date) This section includes the most current, and the historical, smoking and tobacco-related health factors from the [place] facility where the Encounter took place.Current Smoking Status This section includes the most current smoking, or tobacco-related health factor, from the [place] facility where the Encounter took place. Date/Time Current Smoking Status Comment Facility Mar 22, 2021 07:45 AM [facility]CO [facility] Tobacco Use History This section includes a history of the smoking, or tobacco- related health factors, that were collected on or before the date of the Encounter. The data comes from the [facility] where the Encounter took place. Date/Time Smoking Status/Tobacco Use Comment Xavi chanel Oct 02, 2019 10:02 AM [place]-TOBACCO NEVER USED [place] [facility] May 21, 2018 09:05 AM VA-TOBACCO NEVER USED [place] [facility] December 25, 2017 06:14 PM INPT NO TOBACCO USE IN LAST 30 DAYS [facility] Oct 01, 2017 07:34 AM LIFETIME NON-TOBACCO USER [facility] Sep 28, 2016 08:44 AM LIFETIME NON-TOBACCO USER [facility] Oct 14, 2015 07:52 AM LIFETIME NON-TOBACCO USER [facility] Oct 11, 2014 07:59 AM LIFETIME NON-TOBACCO USER [facility] January 15, 2007 07:55 AM LIFETIME NON-TOBACCO USER [facility] Advance Directives: All historical and current Section Date Range: From patient's date of to the date document was created. This section includes ALL of a patient's completed or amended [place] Advance and Rescinded Directives. The entries below indicate that a directive exists for the patient, but an actual copy is not included with this document. The data comes from all [facility]. Date Advance Directives Provider Source Apr 18, 2018 ADVANCE DIRECTIVE LARISSA SIGALA [facility] Apr 18, 2018 ADVANCE DIRECTIVE DISCUSSION LARISSA SIGALA [facility] December 23, 2017 CLINICAL WARNING FARHAT SCHMID [facility] May 11, 2003 ADVANCE DIRECTIVE BERT CASILLAS [facility] Encounter Notes: All associated encounter notes This section contains the clinical notes associated to the Encounter. Date/Time Encounter Note(s) Provider Source Jul 17, 2021 11:03 AM NURSING OUTPATIENT NOTE: DOROTHY CONTI [facility] LOCAL TITLE: MEDICINE CLINIC NURSING RN NOTE STANDARD TITLE: NURSING OUTPATIENT NOTE DATE OF NOTE: JUL 17, 2021@11:03 ENTRY DATE: JUL 17, 2021@11:03:43 AUTHOR: DOROTHY CONTI EXP COSIGNER: URGENCY: STATUS: COMPLETED TYPE OF VISIT: Nurse Clinic REASON FOR VISIT: ALLERGIES: FACILITY ALLERGY/ADR -------- No Remote Allergy/ADR Data available for this chaz meyer [facility] CEPHALEXIN [facility] SIMVASTATIN PLAN: EDUCATION: PARTICIPANT(s): Patient Clean Catch Urine Instructed in collection of clean catch urine. Printed instructions provided and participant(s) is able to repeat t hese instructions accurately. Urinalysis sent to lab /es/ DOROTHY CONTI RN RN, BSN Signed: 07/17/2021 11:04
--- OUTSIDE RECORDS SUMMARY | 2022-05-01 10:21 | XMS_ITS | Encounter Summary ---
:1935 Author Organization Department [facility] rs Address [address] [place] [address] Support Name Relationship Address Phone WADE LORENZO Unavailable [address] [place] [address] WADE LORENZO Unavailable [address] [place] [address] ARAECLI MARSHALL Unavailable [address] [place] [address] ARACELI MARSHALL Unavailable [address] [place] [address] Insurance Providers: All historical and current Section [...] Bales [place] Aug 19, [id number] Kristel [facility]) [facility]VANTAGE (WNR) 2016 8 [id number] [phone] [facility] 1 [place] Aug 19, [id number] Kristel ED[facility] (WNR) ADVANTAGE (WNR) 2016 8 [id number] [phone] [facility] 1 Selected Encounter This section includes the information on record at ID for the Encounter. Date/Time Encounter Type Encounter Description Reason Provider Source Jul 12, 2021 11:34 Outpatient Encounter PRIMARY CARE/MEDICINE AM IHE Encounter Template Text not used by ID Plan of Treatment: Future Appointments (+ 6 months) and Future Tests (+/- 45 days) The Plan of Treatment section includes future care activities for the patient from all [facility]. This section includes future appointments and future orders which are active, pending orscheduled.Future Appointments This section includes appointments that were scheduled to occur 6 months from the date of the Encounter, up to a maximum of 20 appointments. The data comes from all ID treatment facilities. Appointment Date/Time Appointment Type Appointment Facili ty Name Jul 17, 2021 11:00 AM AMBULATORY - MEDICINE [facility] Sep 20, 2021 06:45 AM AMBULATORY - NONE [facility] Sep 20, 2021 07:45 AM AMBULATORY - MEDICINE [facility] December 19, 2021 11:01 AM AMBULATORY - NONE [facility] December 20, 2021 06:45 AM AMBULATORY - NONE [facility] Lab Results: +/- 30 days of the encounter This section includes the Chemistry and Hematology Lab Results on record with ID for the patient. Radiology Reports and Pathology Reports are provided separately, in subsequent sections.Lab Results This section contains the Chemistry/Hematology Results that were resulted 30 days before or 30 daysafter the date of the Encounter. Date/Time Source Result Type Result - Unit Interpretation Reference Range Comment Jul 17, 2021 [facility] MICROALBUMIN/CREATININE RATIO Specimen Type: URINE 11:06 AM URINE No comment enter ed. Ordering Provid er: BILL ROONEY Report Released Date/Time: Jul 06, 2021 05:15 PM Reporting Lab: [facility] [address] [facility] [address] [facility] [address] Performing Lab: [facility] [id number] CREATININE,UR RANDOM 94.9 58.0-161. 0 ALB/CREAT RATIO,UR 122.8 H <29.9 MICROALBUMIN,UR 116.5 H <29.9 Jun 21, 2021 06:43 [facility] HEMOGLOBIN A1C Specimen Type: BLOOD AM No comment enter ed. Ordering Provid er: BILL ROONEY Report Released Date/Time: Mar 22, 2021 08:23 AM Reporting Lab: [facility] [address] [facility] [id number] Performing Lab: [facility] [id number] HEMOGLOBIN A1C 7.7 H 4.0-6.0 Jun 21, 2021 [facility] BASIC METABOLIC Specimen Typ e: PLASMA 06:43 AM PANEL+MG No comment enter ed. Ordering Provid er: BILL ROONEY Report Released Date/Time: Mar 22, 2021 08:23 AM Reporting Lab: [facility] [address] Performing Lab: [facility] [address] CREATININE 1.4 H 0.7-1.2 UREA NITROGEN 17 8-26 GLUCOSE 176 H 74-100 SODIUM 141 136-145 POTASSIUM 3.9 3.5-5.1 CHLORIDE 110 H 98-107 CO2 21 L 22-29 CALCIUM 9.0 8.4-10.2 MAGNESIUM 1.7 1.6-2.6 ANION GAP 10 5-15 ESTIMATED GFR(eGFR) 48 L >60 Jun 21, 2021 06:[address] [facility] CBC Specim en Type: BLOOD No comment enter ed. Ordering Provid er: BILL ROONEY Report Released Date/Time: Mar 22, 2021 11:13 AM Reporting Lab: [facility] [id number] Performing Lab: [facility] [address] WBC 6.71 4.0-11.0 RBC 3.68 L 4.6-6.2 [...] smoking and tobacco-related health factors from the ID facility where the Encounter took place.Current Smoking Status This section includes the most current smoking, or tobacco-related health factor, from the ID facility where the Encounter took place. Date/Time Current Smoking Status Comment Facility Mar 22, 2021 07:45 AM ID-TOBACCO NEVER USED [facility] Tobacco Use History This section includes a history of the smoking, or tobacco- related health factors, that were collected on or before the date of the Encounter. The data comes from the ID facility where the Encounter took place. Date/Time Smoking Status/Tobacco Use Comment Xavi chanel Oct 02, 2019 10:02 AM ID-TOBACCO NEVER USED [place] [facility] May 21, 2018 09:05 AM ID-TOBACCO NEVER USED [facility] [facility] December 25, 2017 06:14 PM INPT NO TOBACCO USE IN LAST [address] [facility] Oct 01, 2017 07:34 AM LIFETIME NON-TOBACCO USER [facility] Sep 28, 2016 08:44 AM LIFETIME NON-TOBACCO USER [facility] Oct 14, 2015 07:52 AM LIFETIME NON-TOBACCO USER [facility] Oct 11, 2014 07:59 AM LIFETIME NON-TOBACCO USER [facility] January 15, 2007 07:55 AM LIFETIME NON-TOBACCO USER [facility] Advance Directives: All historical and current Section Date Range: From patient's date of to the date document was created. This section includes ALL of a patient's completed or amended ID Advance and Rescinded Directives. The entries below indicate that a directive exists for the patient, but an actual copy is not included with this document. The data comes from all ID facilities. Date Advance Directives Provider Source Apr 18, 2018 ADVANCE DIRECTIVE LARISSA SIGALA [facility] Apr 18, 2018 ADVANCE DIRECTIVE DISCUSSION RAE SIGALAN [facility] December 23, 2017 CLINICAL WARNING FARHAT SCHM[facility] May 11, 2003 ADV[address] BERT [address] [facility] Encounter Notes: All associated encounter notes This section contains the clinical notes associated to the Encounter. Date/Time Encounter Note(s) Provider Source Jul 12, 2021 11:34 AM REPORT OF CONTACT: AMELIE WELDON [facility] LOCAL TITLE: APPOINTMENT SCHEDULING NOTE STANDARD TITLE: REPORT OF CONTACT DATE OF NOTE: JUL 12, 2021@11:34 ENTRY DATE: JUL 12, 2021@11:34:08 AUTHOR: AMELIE WELDON EXP COSIGNER: URGENCY: STATUS: COMPLETED Attempt to schedule return to clinic 1st Contact: Called at: [phone] No v Left message Phone number left for to call back: If calls back, schedule appointment for : please schedule into rust [facility] [employer] 4d for U/A Is the RTC marked as no later than? No /ronni/ AMELIE S FATEMEH ADVANCED MSA Signed: 07/12/2021 11:35
--- OUTSIDE RECORDS SUMMARY | 2022-05-01 10:22 | XMS_ITS | Encounter Summary ---
:[address] [facility] Address [address] [place] [address] Support Name Relationship Address Phone NATHANIEL LORENZO Unavailable [phone] [place] [address] NATHANIEL LORENZO Unavailable [address] [place] [address] ARACELI MARSHALL Unavailable [address] [place] [address] JOANNA ARACELI Unavailable [address] [place] [address] Insurance Providers: All historical and current Section [...] Bales [place] Aug 19, [id number] Kristel EDDY [facility] (WNR) ADVANTAGE (WNR) 2017 8 [id number] [phone] [facility] 1 [place] Aug 19, [id number] Kristel EDDY [facility] (WNR) ADVANTAGE (WNR) 2016 8 [id number] [phone] [facility] 1 Selected Encounter This section includes the information on record at CO for the Encounter. Date/Time Encounter Type Encounter Reason Provider Source Description December 19, 2021 HC PRO PHONE TELEPHONE TRIAGE ICD-10-CM Z71.89 JUSTYNA FAIR 10:35 AM CALL 5-10 MIN Other specified J counseling with Provider Comments: Other specified counseling IHE Encounter Template Text not used by CO Assessments - Encounter Diagnoses This section includes the primary and secondary diagnoses documented for the Encounter. Date/Time Primary/Secondary Diagnosis Name Provider Source Diagnosis December 19, 2021 PRIMARY Other specified ASHLEY FAIR [facility] 10:35 AM counseling [facility] Plan of Treatment: Future Appointments (+ 6 months) and Future Tests (+/- 45 days) The Plan of Treatment section includes future care activities for the patient from all [facility]. This section includes future appointments and future orders which are active, pending orscheduled.Future Appointments This section includes appointments that were scheduled to occur 6 months from the date of the Encounter, up to a maximum of 20 appointments. The data comes from all CO treatment [facility]. Appointment Date/Time Appointment Type Appointment Facili ty Name December 20, 2021 06:45 AM AMBULATORY - NONE [facility] Feb 02, 2022 09:30 AM AMBULATORY - MEDICINE [facility] Feb 07, 2022 01:37 PM AMBULATORY - NONE [facility] Feb 12, 2022 07:58 PM AMBULATORY - NONE [facility] Feb 26, 2022 07:36 PM AMBULATORY - NONE [facility] Mar 12, 2022 09:30 AM AMBULATORY - NONE [facility] Apr 02, 2022 09:00 AM AMBULATORY - PSYCHIATRY [facility] Apr 02, 2022 01:30 PM AMBULATORY - NEUROLOGY [facility] Apr 02, 2022 02:45 PM AMBULATORY - NONE [facility] Apr 26, 2022 10:00 AM AMBULATORY - PSYCHIATRY [facility] Apr 30, 2022 08:00 AM AMBULATORY - MEDICINE [facility] Apr 30, 2022 09:15 AM AMBULATORY - NONE [facility] May 11, 2022 06:15 PM AMBULATORY - NONE [facility] Active, Pending, and Scheduled Orders This section includes a listing of several types of active, pending, and scheduled orders, including clinic medications orders, diagnostic test orders, procedure orders and consult orders; where the start date of the order is 45 days before the date of the Encounter or 45 days after the date of the Encounter. The data comes from all [facility]. Test Date/Time Test Type Test Details Facility Name December 19, 2021 12:00 AM Laboratory - Chemistry BASIC METABOLIC [facility] Order PANEL+MG PLASMA SP ONCE December 19, 2021 12:00 AM Laboratory - Chemistry HEMOGLOBIN A1C BLOO D [facility] Order SP Social History: Smoking Status (Most current) and Tobacco Use (All prior to encounter date) This section includes the most current, and the historical, smoking and tobacco-related health factors from the CO facility where the Encounter took place.Current Smoking Status This section includes the most current smoking, or tobacco-related health factor, from the CO facility where the Encounter took place. Date/Time Current Smoking Status Comment Facility Mar 22, 2021 07:45 AM [facility]CO [facility] Tobacco Use History This section includes a history of the smoking, or tobacco- related health factors, that were collected on or before the date of the Encounter. The data comes from the CO facility where the Encounter took place. Date/Time Smoking Status/Tobacco Use Comment [facility] Oct 02, 2019 10:02 AM CO-TOBACCO NEVER USED [place] [facility] May 21, 2018 09:05 AM CO-TOBACCO NEVER USED [place] [facility] December 25, 2017 06:14 PM INPT NO TOBACCO USE IN LAST 30 DAYS [facility] Oct 01, 2017 07:34 AM LIFETIME NON-TOBACCO USER [facility] Sep 28, 2016 08:44 AM LIFETIME NON-TOBACCO USER [facility] Oct 14, 2015 07:52 AM LIFETIME NON-TOBACCO USER [facility] Oct 11, 2014 07:59 AM LIFETIME NON-TOBACCO USER [facility] January 15, 2007 07:55 AM LIFETIME NON-TOBACCO USER [facility] Advance Directives: All historical and current Section Date Range: From patient's date of to the date document was created. This section includes ALL of a patient's completed or amended CO Advance and Rescinded Directives. The entries below indicate that a directive exists for the patient, but an actual copy is not included with this document. The data comes from all [facility]. Date Advance Directives Provider Source Apr 18, 2018 ADVANCE DIRECTIVE LARISSA SIGALA [facility] Apr 18, 2018 ADVANCE DIRECTIVE DISCUSSION LARISSA SIGALA [facility] December 23, 2017 CLINICAL WARNING FARHAT SCHM[facility] May 11, 2003 ADVANCE DIRECTIVE BERT CASILLAS [facility] Encounter Notes: All associated encounter notes This section contains the clinical notes associated to the Encounter. Date/Time Encounter Note(s) Provider Source December 19, 2021 10:35 AM NURSING TELEPHONE ENCOUNTER NOTE: Arturo FAIR [facility] LOCAL TITLE: TELEPHONE CARE NURSE TRIAGE STANDARD TITLE: NURSING TELEPHONE ENCOUNTER NOTE DATE OF NOTE: DECEMBER 19, 2021@10:35:18 ENTRY DATE: DECEMBER 19, 2021@10:40:54 AUTHOR: ASHLEY FAIR EXP COSIGNER: URGENCY: STATUS: COMPLETED TELEPHONE CARE NURSE TRIAGE Has ADDENDA Chief Complaint: Not applicable to call. The following identifiers were used to verify th is patient: . SSN. Comments: Call from son Nathaniel reporting that travist is candice ravi admitted to [facility] for recurrent urinary infections. He st ates vet has been admitted 3 times in the last few months . As vet admitted, needed to cancel appointment for tomorrow with PCP. Nathaniel is asking to reschedule with PACT team, as admit follow-up. Likely to be discharged on ??. Nathaniel reports the recu rrent abxmay have to be ongoing, unsure if ID has become involved. Aske d Nathaniel to have all admit records tx to CO for assessment. Also provided t he 72hr contact number for billing and FYI aspects Nathaniel asks for team to contact vet at [phone] Author: ASHLEY FAIR Caller Area: *[facility] SON called in for NUNULUISANA SAMUELS Miguel ([phone]) . Caller Response: APPT GREATER THAN 24 HOURS Class Code: Other specified counseling. Contact Advised to contact Telephone Care for any questions, concerns, new or worsening symptoms; services available 11/03. Evaluation/Management Code: HC PRO PHONE CALL 5- 10 MIN ([phone]). Starting at: 12/19/2021 @ 10:35:18 AM Ending at: 12/19/2021 @ 10:40:12 AM Length: 4 minutes. Patient's Email Address: [email or web address] Provider Info: LOCAL - [facility] ([phone] PACT: [facility] PACT IRIS (Focus: Womens Health) Designated Pcp: BILL ROONEY PHONE :[phone] PAGER:[phone] Performance Improvement Analyst: KATIE SMITH PHONE:[phone] Clinical Associate: VINCENT READ PHONE :[phone] Senior Agricultural Assistant: GILBERTO MOSQUEDA GEORGE:[phone] PACT Clinical Pharmacist: FATMATA GARCIA GEORGE:[phone] Clinical POC: Administrative POC: Type of call: *TC SYMPTOM APPT. /rnoni/ ASHLEY FAIR RN VISN 23 Daytime shift nurse manager Signed: 12/19/2021 10:40 Receipt Acknowledged By: 12/19/2021 10:43 /ronni/ HELLEN WARREN, RN REGISTERED NURSE 12/19/2021 ADDENDUM STATUS: COMPLETED Please call to reschedule as requested. /HELLEN Gracia, RN REGISTERED NURSE Signed: 12/19/2021 10:44 Receipt Acknowledged By: * AWAITING SIGNATURE * GILBERTO MOSQUEDA
--- OUTSIDE RECORDS SUMMARY | 2022-05-01 10:22 | XMS_ITS | Encounter Summary ---
:1935 Author Organization [facility] rs Address [address] [place] [address] Support Name Relationship Address Phone WADE LORENZO Unavailable [address] [place] [address] WADE LORENZO Unavailable [address] [place] [address] ARACELI MARSHALL Unavailable [address] [place] [address] ARACELI MARSHALL Unavailable [address] [place] [address] Insurance Providers: All historical and current Section [...] Bales [place] M[place] Aug 19, [id number] Kristel EDDY [facility] (WNR) ADVANTAGE (WNR) 2016 8 [id number] [phone] [facility] 1 [place] Aug 19, [id number] Krist[address] EDDY [facility] (WNR) ADVANTAGE (WNR) 2016 8 [id number] [phone] [facility] 1 Selected Encounter This section includes the information on record at [place] for the Encounter. Date/Time Encounter Type Encounter Description Reason Provider Source Jan 17, 2022 04:26 Outpatient Encounter TELEPHONE TRIAGE PM IHE Encounter Template Text not used by [place] Plan of Treatment: Future Appointments (+ 6 months) and Future Tests (+/- 45 days) The Plan of Treatment section includes future care activities for the patient from all [place] [facility]. This section includes future appointments and future orders which are active, pending orscheduled.Future Appointments This section includes appointments that were scheduled to occur 6 months from the date of the Encounter, up to a maximum of 20 appointments. The data comes from all [facility]. Appointment Date/Time Appointment Type Appointment Facili ty Name Feb 02, 2022 09:30 AM AMBULATORY - MEDICINE [facility] Feb 07, 2022 01:37 PM AMBULATORY - NONE [facility] Feb 12, 2022 07:58 PM AMBULATORY - NONE [facility] Feb 26, 2022 07:36 PM AMBULATORY - NONE [facility] Mar 12, 2022 09:30 AM AMBULATORY - NONE [facility] Apr 02, 2022 09:00 AM AMBULATORY - PSYCHIATRY [facility] Apr 02, 2022 01:30 PM AMBULATORY - NEUROLOGY [facility] Apr 02, 2022 02:45 PM AMBULATORY - NONE [facility] Apr 26, 2022 10:00 AM AMBULATORY - PSYCHIATRY [facility] Apr 30, 2022 08:00 AM AMBULATORY - MEDICINE [facility] Apr 30, 2022 09:15 AM AMBULATORY - NONE [facility] May 11, 2022 06:15 PM AMBULATORY - NONE [facility] Active, Pending, and Scheduled Orders This section includes a listing of several types of active, pending, and scheduled orders, including clinic medications orders, diagnostic test orders, procedure orders and consult orders; where the start date of the order is 45 days before the date of the Encounter or 45 days after the date of the Encounter. The data comes from all [facility]. Test Date/Time Test Type Test Details Facility Name December 19, 2021 12:00 AM Laboratory - Chemistry BASIC METABOLIC MIN [facility] Order PANEL+MG PLASMA SP ONCE December 19, 2021 12:00 AM Laboratory - Chemistry HEMOGLOBIN A1C BLOO D [facility] Order SP Lab Results: +/- 30 days of the encounter This section includes the Chemistry and Hematology Lab Results on record with [place] for the patient. Radiology Reports and Pathology Reports are provided separately, in subsequent sections.Lab Results This section contains the Chemistry/Hematology Results that were resulted 30 days before or 30 daysafter the date of the Encounter. Date/Time Source Result Type Result - Unit Interpretation Reference Range Comment Feb 02, 2022 11:[address] [facility] B 12 Specim en Type: SERUM No comment enter ed. Ordering Provid er: BILL GUNTER Report Released Date/Time: Feb 02, 2022 09:56 AM Reporting Lab: [facility] [address] [facility] [address] Performing Lab: [facility] [address] [facility] [address] B 12 192 L [phone] Feb 02, 2022 11:[address] [facility] FOLATE Specim en Type: SERUM No comment enter ed. Ordering Provid er: BILL GUNTER Report Released Date/Time: Feb 02, 2022 09:56 AM Reporting Lab: [facility] [address] [facility] [address] Performing Lab: [facility] [address] [facility] [address] FOLATE 10.6 >7.0 Feb 02, 2022 [facility] TSH W/REFLEX TO FREE Specime n Type: PLASMA 11:29 AM T4 No comment enter ed. Ordering Provid er: BILL GUNTER Report Released Date/Time: Feb 02, 2022 09:56 AM Reporting Lab: [facility] [address] [facility] [address] Performing Lab: [facility] [address] [facility] [address] TSH 1.95 0.35-4.94 Feb 02, 2022 11:29 [facility] SYPHILIS ANTIBODY Specime n Type: SERUM AM No comment enter ed. Ordering Provid er: BILL GUNTER Report Released Date/Time: Feb 02, 2022 09:56 AM Reporting Lab: [facility] [address] [facility] [address] Performing Lab: [facility] [address] [facility] [address] SYPHILIS ANTIBODY NEGATIVE Feb 02, 2022 11:[address] [facility] IRON GROUP Specim en Type: SERUM No comment enter ed. Ordering Provid er: BILL GUNTER Report Released Date/Time: Feb 02, 2022 09:56 AM Reporting Lab: [facility] [address] [facility] [address] Performing Lab: [facility] [address] [facility] [address] IRON 67 65-175 TIBC,CALCULATED 304 250-425 FERRITIN 39.3 21.8-274.7 IRON SATURATION 22 20-50 TRANSFERRIN [phone] Feb 02, 2022 11:29 [facility] HIV AG/AB SCREEN Specimen Type: SERUM AM No comment enter ed. Ordering Provid er: BILL GUNTER Report Released Date/Time: Feb 02, 2022 09:56 AM Reporting Lab: [facility] [address] [facility] [address] Performing Lab: [facility] [address] [facility] [address] HIV AG/AB SCREEN NEGATIVE NEGATIVE Feb 02, 2022 11:29 [facility] HEMOGLOBIN A1C Specimen Type: BLOOD AM No comment enter ed. Ordering Provid er: BILL GUNTER Report Released Date/Time: Feb 02, 2022 09:56 AM Reporting Lab: [facility] [address] [facility] [address] Performing Lab: [facility] [address] [facility] [address] HEMOGLOBIN A1C 8.2 H 4.0-6.0 Feb 02, 2022 11:[address] [facility] CBC Specim en Type: BLOOD No comment enter ed. Ordering Provid er: BILL GUNTER Report Released Date/Time: Feb 02, 2022 09:56 AM Reporting Lab: [facility] [address] [facility] [address] Performing Lab: [facility] [address] [facility] [address] WBC 9.18 4.0-11.0 RBC 4.38 L 4.6-6.2 HGB 13.1 L 13.5-17.9 HCT 40.9 L 41-54 MCV 93.4 80-100 MCH 29.9 27-33 MCHC 32.0 32.0-37.5 PLT 284 150-400 MPV 9.8 7.4-10.4 RDW 15.5 H 11.5-14.5 Feb 02, 2022 [facility] COMPREHENSIVE METABOLIC Spec imen Type: PLASMA 11:29 AM PANEL+MG No comment enter ed. Ordering Provid er: BILL GUNTER Report Released Date/Time: Feb 02, 2022 09:56 AM Reporting Lab: [facility] [address] [facility] [address] Performing Lab: [facility] [address] [facility] [address] CREATININE 1.7 H 0.7-1.2 UREA NITROGEN 20 8-26 GLUCOSE 176 H 74-100 SODIUM 137 136-145 POTASSIUM 4.2 3.5-5.1 CHLORIDE 105 98-107 CO2 22 22-29 CALCIUM 9.6 8.4-10.2 PROTEIN,TOTAL 7.1 6.0-8.3 ALBUMIN 3.9 3.5-5.2 BILIRUBIN, TOTAL 0.6 0.2-1.2 MAGNESIUM 1.7 1.6-2.6 ANION GAP 10 5-15 ALKALINE PHOSPHATASE 112 40-150 ALT/SGPT 21 <55 AST/SGOT 16 <34 CREAT EGFR(CKD-EPI) 39 L >60 Feb 02, 2022 [facility] METHYLMA ACID, [facility] Specime n Type: SERUM 11:29 AM Comment: This t est was developed and its analytical performance characteristics have been determined by [employer] [place], [place]. It has not been cleared or approved by the U.S . Food and Drug Administration. This assay has been validated pursuant to the CLIA regulations and is used for clinical purposes. Test Performed by [facility], [facility], [address] [place] [address] Domenic Miller M.D., Ph.D., Director of Laboratories , CLIA [id number] Ordering Provid er: BILL GUNTER Report Released Date/Time: Feb 02, 2022 12:56 PM Reporting Lab: [facility] [address] Performing Lab: [address] METHYLMA ACID, QUEST 820 H 87-318 Feb 02, 2022 10:[address] [facility] URINALYSIS Specim en Type: URINE No comment enter ed. Ordering Provid er: BILL GUNTER Report Released Date/Time: Feb 02, 2022 09:56 AM Reporting Lab: [facility] [address] Performing Lab: [facility] [address] URINE COLOR LIGHT-YELLOW SPECIFIC GRAVITY 1.010 1.003-1.035 URINE BILIRUBIN NEGATIVE NEGATIVE URINE KETONES NEGATIVE NEGATIVE URINE GLUCOSE NEGATIVE <30 URINE PROTEIN NEGATIVE <20 URINE PH 5.0 5.0-8.0 URINE WBC/HPF 13 H 0-7 URINE BACTERIA FEW URINE RBC/HPF 13 H 0-3 APPEARANCE CLEAR SQUAMOUS EPITHELIAL NONE SEEN URINE BLOOD 1+ NEGATIVE URINE NITRITE NEGATIVE NEGATIVE LEUKOCYTE ESTERASE 250 NEGATIVE Social History: Smoking Status (Most current) and Tobacco Use (All prior to encounter date) This section includes the most current, and the historical, smoking and tobacco-related health factors from the [facility] where the Encounter took place.Current Smoking Status This section includes the most current smoking, or tobacco-related health factor, from the [place] facility where the Encounter took place. Date/Time Current Smoking Status Comment Facility Mar 22, 2021 07:45 AM [place]-TOBACCO NEVER USED [place] [facility] Tobacco Use History This section includes a history of the smoking, or tobacco- related health factors, that were collected on or before the date of the Encounter. The data comes from the [facility] where the Encounter took place. Date/Time Smoking Status/Tobacco Use Comment [facility] Oct 02, 2019 10:02 AM [place]-TOBACCO NEVER USED [place] [facility] May 21, 2018 09:05 AM [place]-TOBACCO NEVER USED [place] [facility] December 25, 2017 06:14 PM INPT NO TOBACCO USE IN LAST [address] [facility] Oct 01, 2017 07:34 AM LIFETIME NON-TOBACCO USER [facility] Sep 28, 2016 08:44 AM LIFETIME NON-TOBACCO USER [facility] Oct 14, 2015 07:52 AM LIFETIME NON-TOBACCO USER [facility] Oct 11, 2014 07:59 AM LIFETIME NON-TOBACCO USER [facility] January 15, 2007 07:55 AM LIFETIME NON-TOBACCO USER [facility] Advance Directives: All historical and current Section Date Range: From patient's date of to the date document was created. This section includes ALL of a patient's completed or amended [place] Advance and Rescinded Directives. The entries below indicate that a directive exists for the patient, but an actual copy is not included with this document. The data comes from all [facility]. Date Advance Directives Provider Source Apr 18, 2018 ADVANCE DIRECTIVE LARISSA SIGALA [facility] Apr 18, 2018 ADVANCE DIRECTIVE DISCUSSION LARISSA SIGALA [facility] December 23, 2017 CLINICAL WARNING FARHAT SCHMID [facility] May 11, [address] BERT [address] [facility] Encounter Notes: All associated encounter notes This section contains the clinical notes associated to the Encounter. Date/Time Encounter Note(s) Provider Source Jan 17, 2022 04:26 PM REPORT OF CONTACT[facility] TITLE: PATIENT CONTACT NOTE STANDARD TITLE: REPORT OF CONTACT DATE OF NOTE: JAN 17, 2022@16:26 ENTRY DATE: JAN 17, 2022@16:26:27 AUTHOR: BIANKA TOLBERT EXP COSIGNER: URGENCY: STATUS: COMPLETED PATIENT CONTACT NOTE Has ADDENDA Patient contact Name of Lena: LUISANA EDDY Name/Relationship of Contact if other than Veter an: Date & Time of Contact: Jan@16:26 Type of Contact: Reason for Contact: 's nephew, oliva Heard stating that the recently went back to the ER and was recommended to see a neur ologist. Félix is requesting to have PCP place a consult for neuro. Photography Coordinator did transf er the to [facility] nurse for records. /ronni/ BIANKA SOLIS [address] [facility] Signed: 01/17/2022 16:29 Receipt Acknowledged By: 01/17/2022 17:05 /ronni/ Bill Gunter MD Physician 01/18/2022 08:28 /HELLEN Gracia, RN REGISTERED NURSE 01/17/2022 ADDENDUM STATUS: COMPLETED RN team: are you able to pull these records from [facility] for me to review? /yvette Gunter MD Physician Signed: 01/17/2022 17:07 Receipt Acknowledged By: 01/18/2022 08:36 /HELLEN Gracia, RN REGISTERED NURSE 01/18/2022 ADDENDUM STATUS: COMPLETED Photography Coordinator spoke with Félix. There are no records in [facility]. He agreed to have records faxed for PCP review. /HELLEN Gracia, RN REGISTERED NURSE Signed: 01/18/2022 08:37
--- OUTSIDE RECORDS SUMMARY | 2022-05-01 10:22 | XMS_ITS | Encounter Summary ---
:1935 Author Organization [facility] Address [address] [place] [address] Support Name Relationship Address Phone WADE LORENZO Unavailable [address] [place] [address] WADE LORENZO Unavailable [address] [place] [address] ARACELI MARSHALL Unavailable [address] [place] [address] GOGEORGE ARACELI Unavailable [address] [place] [address] Insurance Providers: All historical and current Section [...] Bales [place] M[place] Aug 19, [id number] Kristel EDDY [facility] (WNR) ADVANTAGE (WNR) 2017 8 [id number] [phone] [facility] 1 [place] Aug 19, [id number] Kristel EDDY [facility] (WNR) ADVANTAGE (WNR) 2016 8 [id number] [phone] [facility] 1 Selected Encounter This section includes the information on record at [place] for the Encounter. Date/Time Encounter Type Encounter Reason Provider Source Description December 19, 2021 11:01 Outpatient ADMIN PAT ACTIVTIES ABI GANDARA AM Encounter (MASNONCT) IHE Encounter Template Text not used by [place] Plan of Treatment: Future Appointments (+ 6 months) and Future Tests (+/- 45 days) The Plan of Treatment section includes future care activities for the patient from all [place] [facility]. This section includes future appointments and future orders which are active, pending orscheduled.Future Appointments This section includes appointments that were scheduled to occur 6 months from the date of the Encounter, up to a maximum of 20 appointments. The data comes from all [facility]. Appointment Date/Time Appointment Type Appointment Facili ty Name December 20, 2021 06:45 AM AMBULATORY - NONE [facility] Feb 02, 2022 09:30 AM AMBULATORY - MEDICINE [facility] Feb 07, 2022 01:37 PM AMBULATORY - NONE [facility] Feb 12, 2022 07:58 PM AMBULATORY - NONE [facility] Feb 26, 2022 07:36 PM AMBULATORY - NONE [facility] Mar 12, 2022 09:30 AM AMBULATORY - NONE [facility] Apr 02, 2022 09:00 AM AMBULATORY - PSYCHIATRY [facility] Apr 02, 2022 01:30 PM AMBULATORY - NEUROLOGY [facility] Apr 02, 2022 02:45 PM AMBULATORY - NONE [facility] Apr 26, 2022 10:00 AM AMBULATORY - PSYCHIATRY [facility] Apr 30, 2022 08:00 AM AMBULATORY - MEDICINE [facility] Apr 30, 2022 09:15 AM AMBULATORY - NONE [facility] May 11, 2022 06:15 PM AMBULATORY - NONE [facility] Active, Pending, and Scheduled Orders This section includes a listing of several types of active, pending, and scheduled orders, including clinic medications orders, diagnostic test orders, procedure orders and consult orders; where the start date of the order is 45 days before the date of the Encounter or 45 days after the date of the Encounter. The data comes from all [facility]. Test Date/Time Test Type Test Details Facility Name December 19, 2021 12:00 AM Laboratory - Chemistry BASIC METABOLIC MIN [facility] Order PANEL+MG PLASMA SP ONCE December 19, 2021 12:00 AM Laboratory - Chemistry HEMOGLOBIN A1C BLOO D [facility] Order SP Social History: Smoking Status (Most current) and Tobacco Use (All prior to encounter date) This section includes the most current, and the historical, smoking and tobacco-related health factors from the [place] facility where the Encounter took place.Current Smoking Status This section includes the most current smoking, or tobacco-related health factor, from the [place] facility where the Encounter took place. Date/Time Current Smoking Status Comment Facility Mar 22, 2021 07:45 AM [place]-TOBACCO NEVER USED [place] [facility] Tobacco Use History This section includes a history of the smoking, or tobacco- related health factors, that were collected on or before the date of the Encounter. The data comes from the [place] facility where the Encounter took place. Date/Time Smoking Status/Tobacco Use Comment [facility] Oct 02, 2019 10:02 AM VA-TOBACCO NEVER USED [place] [facility] May 21, 2018 09:05 AM VA-TOBACCO NEVER USED [place] [facility] December 25, 2017 06:14 PM INPT NO TOBACCO USE IN LAST 30 DAYS [facility] Oct 01, 2017 07:34 AM LIFETIME NON-TOBACCO USER [facility] Sep 28, 2016 08:44 AM LIFETIME NON-TOBACCO USER [facility] Oct 14, 2015 07:52 AM LIFETIME NON-TOBACCO USER [facility] Oct 11, 2014 07:59 AM LIFETIME NON-TOBACCO USER [facility] January 15, 2007 07:55 AM LIFETIME NON-TOBACCO USER [facility] Advance Directives: All historical and current Section Date Range: From patient's date of to the date document was created. This section includes ALL of a patient's completed or amended [place] Advance and Rescinded Directives. The entries below indicate that a directive exists for the patient, but an actual copy is not included with this document. The data comes from all [facility]. Date Advance Directives Provider Source Apr 18, 2018 ADVANCE DIRECTIVE LARISSA SIGALA [facility] Apr 18, 2018 ADVANCE DIRECTIVE DISCUSSION LARISSA SIGALA [facility] December 23, 2017 CLINICAL WARNING FARHAT SCHMID [facility] May 11, 2003 ADVANCE DIRECTIVE BERT CASILLAS [facility] Encounter Notes: All associated encounter notes This section contains the clinical notes associated to the Encounter. Date/Time Encounter Note(s) Provider Source December 18, 2021 01:45 PM NONVA NOTE: VILLA COOLEY IS [facility] LOCAL TITLE: COMMUNITY CARE-[place] SELF PRESENTIN G CARE COORD PLAN STANDARD TITLE: NONVA NOTE DATE OF NOTE: DECEMBER 18, 2021@13:45 ENTRY DATE: DECEMBER 19, 2021@11:02:48 AUTHOR: VILLA COOLEY EXP COSIGNER: URGENCY: STATUS: COMPLETED COMMUNITY CARE-[facility] SELF PRESENTING CARE CO ORD PLAN NOTE Has ADDENDA Emergency Notification Intake Date Presenting to the Facility: December Method of Contact: Notified from Certain worklist Notification ID: [id number] [facility] Referral #: [facility] Name: Hospital: [facility] Address: [address] City: [place] State: [place] Zip Code: Phone : Community Facility Point of Contact: Name: TADEO Chief complaint: GENERALIZED WEAKNESS Primary Diagnosis: Disposition Admitted Route of Admission: Date of Admission: December Admitting Diagnosis: GENERALIZED WEAKNESS [facility] Provider: Confirm Level of Care: /ronni/ VILLA COOLEY Clinical Social Work Aide(AOD) Signed: 12/19/2021 11:05 Receipt Acknowledged By: 12/20/2021 16:55 /yvette GANDARA RN Utilization Management 12/20/2021 ADDENDUM STATUS: COMPLETED Faxed for records. /yvette GANDARA RN Utilization Management Signed: 12/20/2021 16:57 Receipt Acknowledged By: 12/21/2021 08:20 /ronni/ HELLEN WARREN, RN REGISTERED NURSE 01/31/2022 ADDENDUM STATUS: COMPLETED 2nd fax sent for records /yvette GANDARA RN Utilization Management Signed: 01/31/2022 15:53 Receipt Acknowledged By: 01/31/2022 16:04 /ronni/ ZARA DAVID, RN REGISTERED NURSE 12/20/2021 ADDENDUM STATUS: COMPLETED [facility] Scanned Document - Addendum. [facility] 12/18 to 12/20/21 dx FINAL DIAGNOSIS Prostatitis Probable UTI Sepsis Chronic kidney disease Atrial fibrillation dc to home Will scan and import dcs received via fax on 01/17 02/07 Please review records /yvette GANDARA RN Utilization Management Signed: 02/01/2022 16:37 Receipt Acknowledged By: * AWAITING SIGNATURE * BILL ROONEY * AWAITING SIGNATURE * ZARA DAVID
--- OUTSIDE RECORDS SUMMARY | 2022-05-01 10:22 | XMS_ITS | Encounter Summary ---
:1935 Author Organization [facility] Address [address] [place] [address] Support Name Relationship Address Phone WADE LORENZO Unavailable [address] [place] [address] WADE LORENZO Unavailable [address] [place] [address] ARACELI MARSHALL Unavailable [address] [place] [address] ARACELI MARSHALL Unavailable [address] [place] [address] Insurance Providers: All historical and current Section Date Range: From patient's date of to the date document was created.This section includes the names of all active insurance providers for the patient. Insurance Type of Plan Start of End of Group Member [facility] Coverage Name Policy Policy Number ID Provider's Bales's Relationship Coverage Coverage Telephone Name to Policy Number Bales [place] Aug 19, [id number] Kristel EDDY [facility] (WNR) ADVANTAGE (WNR) 2016 8 [id number] [phone] [facility] 1 [place] MED[place] M[place] Aug 19, [id number] Kristel EDDY [facility] (WNR) ADVANTAGE (WNR) 2017 03 [id number] [phone] [facility] 1 Selected Encounter This section includes the information on record at ID for the Encounter. Date/Time Encounter Type Encounter Description Reason Provider Source Sep 26, 2021 02:36 Outpatient Encounter TELEPHONE TRIAGE PM IHE Encounter Template Text not used by ID Plan of Treatment: Future Appointments (+ 6 months) and Future Tests (+/- 45 days) The Plan of Treatment section includes future care activities for the patient from all [facility]. This section includes future appointments and future orders which are active, pending orscheduled.Future Appointments This section includes appointments that were scheduled to occur 6 months from the date of the Encounter, up to a maximum of 20 appointments. The data comes from all ID treatment facilities. Appointment Date/Time Appointment Type Appointment Facili ty Name December 19, 2021 11:01 AM AMBULATORY - NONE [facility] December 20, 2021 06:45 AM AMBULATORY - NONE [facility] Feb 02, 2022 09:30 AM AMBULATORY - MEDICINE [facility] Feb 07, 2022 01:37 PM AMBULATORY - NONE [facility] Feb 12, 2022 07:58 PM AMBULATORY - NONE [facility] Feb 26, 2022 07:36 PM AMBULATORY - NONE [facility] Mar 12, 2022 09:30 AM AMBULATORY - NONE [facility] Lab Results: +/- 30 days of the [...] Range Comment Sep 20, 2021 10:25 AM [facility] URINALYSIS Specim en Type: URINE No comment enter ed. Ordering Provid er: IRMA GUNTER Report Released Date/Time: Sep 20, 2021 08:13 AM Reporting Lab: [facility] [address] [facility] [id number] Performing Lab: [facility] [address] [facility] [address] URINE COLOR LIGHT-YELLOW SPECIFIC GRAVITY 1.010 1.003-1.035 URINE BILIRUBIN NEGATIVE NEGATIVE URINE KETONES NEGATIVE NEGATIVE URINE GLUCOSE NEGATIVE <30 URINE PROTEIN NEGATIVE <20 URINE PH 5.0 5.0-8.0 URINE WBC/HPF 8 H 0-7 URINE BACTERIA NONE SEEN URINE RBC/HPF 1 0-3 APPEARANCE CLEAR SQUAMOUS EPITHELIAL NONE SEEN URINE BLOOD NEGATIVE NEGATIVE URINE NITRITE NEGATIVE NEGATIVE LEUKOCYTE ESTERASE 25 NEGATIVE Sep 20, 2021 06:38 [facility] HEMOGLOBIN A1C Specimen Type: BLOOD AM No comment enter ed. Ordering Provid er: IRMA GUNTER Report Released Date/Time: Jun 21, 2021 08:07 AM Reporting Lab: [facility] [address] [facility] [id number] Performing Lab: [facility] [address] [facility] [address] HEMOGLOBIN A1C 7.8 H 4.0-6.0 Sep 20, 2021 06:38 AM [facility] CBC Specim en Type: BLOOD No comment enter ed. Ordering Provid er: IRMA GUNTER Report Released Date/Time: Jun 21, 2021 08:09 AM Reporting Lab: [facility] [address] [facility] [address] Performing Lab: [facility] [address] WBC 9.17 4.0-11.0 RBC 4.21 L 4.6-6.2 HGB 12.0 L 13.5-17.9 HCT 37.9 L 41-54 MCV 90.0 80-100 MCH 28.5 27-33 MCHC 31.7 L 32.0-37.5 PLT 298 150-400 MPV 10.4 7.4-10.4 RDW 15.7 H 11.5-14.5 Sep 20, 2021 06:38 AM [facility] IRON GROUP Specim en Type: SERUM No comment enter ed. Ordering Provid er: IRMA GUNTER Report Released Date/Time: Jun 21, 2021 08:23 AM Reporting Lab: [facility] [address] [facility] [address] Performing Lab: [facility] [address] [facility] [address] IRON 34 L 65-175 TIBC,CALCULATED 348 250-425 FERRITIN 78.4 21.8-274.7 IRON SATURATION 10 L 20-50 TRANSFERRIN 278 163-382 Sep 20, 2021 [facility] BASIC METABOLIC Specimen Typ e: PLASMA 06:38 AM PANEL+MG No comment enter ed. Ordering Provid er: IRMA GUNTER Report Released Date/Time: Jun 21, 2021 08:07 AM Reporting Lab: [facility] [address] Performing Lab: [facility] [address] CREATININE 1.7 H 0.7-1.2 UREA NITROGEN 24 8-26 GLUCOSE 185 H 74-100 SODIUM 140 136-145 POTASSIUM 3.7 3.5-5.1 CHLORIDE 107 98-107 CO2 24 22-29 CALCIUM 9.4 8.4-10.2 MAGNESIUM 1.6 1.6-2.6 ANION GAP 9 5-15 ESTIMATED GFR(eGFR) 38 L >60 Social History: Smoking Status (Most [...] 22, 2021 07:45 AM [facility] Tobacco Use History This section includes a history of the smoking, or tobacco- related health factors, that were collected on or before the date of the Encounter. The data comes from the ID facility where the Encounter took place. Date/Time Smoking Status/Tobacco Use Comment [facility] Oct 02, 2019 10:02 AM ID-TOBACCO NEVER USED [place] [facility] May 21, 2018 09:05 AM ID-TOBACCO NEVER USED [place] [facility] December 25, 2017 06:14 PM INPT NO TOBACCO USE IN LAST 30 DAYS [facility] Oct 01, 2017 07:34 AM LIFETIME NON-TOBACCO USER [facility] Sep 28, 2016 08:44 AM LIFETIME NON-TOBACCO USER [facility] Oct 14, 2015 07:52 AM LIFETIME NON-TOBACCO USER [facility] Oct 11, 2014 07:59 AM LIFETIME NON-TOBACCO USER [facility] January 15, 2007 07:55 AM LIFETIME NON-TOBACCO USER [facility] Advance Directives: All historical and current Section Date Range: From patient's date of to the date document was created. This section includes ALL of a patient's completed or amended ID Advance and Rescinded Directives. The entries below indicate that a directive exists for the patient, but an actual copy is not included with this document. The data comes from all [facility]. Date Advance Directives Provider Source Apr 18, 2018 ADVANCE DIRECTIVE LARISSA SIGALA [facility] Apr 18, 2018 ADVANCE DIRECTIVE DISCUSSION LARISSA SIGALA [facility] December 23, 2017 CLINICAL WARNING FARHAT SCHMID [facility] May 11, 2003 ADVANCE DIRECTIVE BERT CASILLAS [facility] Encounter Notes: All associated encounter notes This section contains the clinical notes associated to the Encounter. Date/Time Encounter Note(s) Provider Source Sep 26, 2021 02:36 PM REPORT OF CONTACT: ALE ROMAN SHEL[facility] LOCAL TITLE: PATIENT CONTACT NOTE STANDARD TITLE: REPORT OF CONTACT DATE OF NOTE: SEP 26, 2021@14:36 ENTRY DATE: SEP 26, 2021@14:36:21 AUTHOR: ALE ROMAN EXP COSIGNER: URGENCY: STATUS: COMPLETED PATIENT CONTACT NOTE Has ADDENDA Primary Care Call Center Primary Care Provider Call. Please contact at the following number: cell Other: Patient called regard ing Results Letter 09/21/21. Patient requesting PCP to order and mail out recommended iron supplement. Patient can be reached at provided number if needed. Please review. Thank you. Phone number verified as correct. cell /es/ Ale Roman VISN 23 [facility] Call Center AMSA Signed: 09/26/2021 14:37 Receipt Acknowledged By: 09/27/2021 14:27 /es/ Irma Gunter MD Physician 09/27/2021 ADDENDUM STATUS: COMPLETED Please let patient know I mailed an iron prescri ption to his house. /es/ Irma Gunter MD Physician Signed: 09/27/2021 14:29 Receipt Acknowledged By: * AWAITING SIGNATURE * KATIE SMITH 09/27/2021 ADDENDUM STATUS: COMPLETED I spoke with pt informing him of ordered Ferrous Sulfate and possible side effects for mail out. Pt replied understanding. /es/ JAMIE SOUZA RN Pact Ob/Gyn Physician Signed: 09/27/2021 16:34
--- OUTSIDE RECORDS SUMMARY | 2022-05-01 10:23 | XMS_ITS | Encounter Summary ---
:1935 Author Organization [facility] Address [address] [place] [address] Support Name Relationship Address Phone WADE LORENZO Unavailable [address] [place] [address] WADE LORENZO Unavailable [address] [place] [address] ARACELI MARSHALL Unavailable [address] [place] [address] GOGEORGE ARACELI Unavailable [address] [place] [address] Insurance Providers: All historical and current Section [...] Bales [place] Aug 19, [id number] Kristel EDDY [facility] (WNR) ADVANTAGE (WNR) 2017 8 [id number] [phone] [facility] 1 [place] MEDICARE M[place] Aug 19, [id number] Kristel EDDY [facility] (WNR) ADVANTAGE (WNR) 2016 8 [id number] [phone] [facility] 1 Selected Encounter This section includes the information on record at CO for the Encounter. Date/Time Encounter Type Encounter Description Reason Provider Source December 30, 2021 12:00 Outpatient Encounter ADMIN PAT ACTIVTIES AM (MASNONCT) E Encounter Template Text not used by CO Plan of Treatment: Future Appointments (+ 6 months) and Future Tests (+/- 45 days) The Plan of Treatment section includes future care activities for the patient from all [facility]. This section includes future appointments and future orders which are active, pending orscheduled.Future Appointments This section includes appointments that were scheduled to occur 6 months from the date of the Encounter, up to a maximum of 20 appointments. The data comes from all [facility]. Appointment Date/Time Appointment Type Appointment Facili ty Name Feb 02, 2022 09:30 AM AMBULATORY - MEDICINE [facility] Feb 07, 2022 01:37 PM AMBULATORY - NONE [facility] Feb 12, 2022 07:58 PM AMBULATORY - NONE [facility] Feb 26, 2022 07:36 PM AMBULATORY - NONE [facility] Mar 12, 2022 09:30 AM AMBULATORY - NONE [facility] Apr 02, 2022 09:00 AM AMBULATORY - PSYCHIATRY [facility] Apr 02, 2022 01:30 PM AMBULATORY - NEUROLOGY [facility] Apr 02, 2022 02:45 PM AMBULATORY - NONE [facility] Apr 26, 2022 10:00 AM AMBULATORY - PSYCHIATRY [facility] Apr 30, 2022 08:00 AM AMBULATORY - MEDICINE [facility] Apr 30, 2022 09:15 AM AMBULATORY - NONE [facility] May 11, 2022 06:15 PM AMBULATORY - NONE [facility] Active, Pending, and Scheduled Orders This section includes a listing of several types of active, pending, and scheduled orders, including clinic medications orders, diagnostic test orders, procedure orders and consult orders; where the start date of the order is 45 days before the date of the Encounter or 45 days after the date of the Encounter. The data comes from all [facility]. Test Date/Time Test Type Test Details Facility Name December 19, 2021 12:00 AM Laboratory - Chemistry BASIC METABOLIC [facility] Order PANEL+MG PLASMA SP ONCE December 19, 2021 12:00 AM Laboratory - Chemistry HEMOGLOBIN A1C BLOO D [facility] Order SP Social History: Smoking Status (Most current) and Tobacco Use (All prior to encounter date) This section includes the most current, and the historical, smoking and tobacco-related health factors from the [facility] where the Encounter took place.Current Smoking Status This section includes the most current smoking, or tobacco-related health factor, from the [place] facility where the Encounter took place. Date/Time Current Smoking Status Comment Facility Mar 22, 2021 07:45 AM [place]-TOBACCO NEVER USED [place] [facility] Tobacco Use History This section includes a history of the smoking, or tobacco- related health factors, that were collected on or before the date of the Encounter. The data comes from the [place] facility where the Encounter took place. Date/Time Smoking Status/Tobacco Use Comment Xavi chanel Oct 02, 2019 10:02 AM VA-TOBACCO NEVER USED [place] [facility] May 21, 2018 09:05 AM VA-TOBACCO NEVER USED [place] [facility] December 25, 2017 06:14 PM INPT NO TOBACCO USE IN LAST 30 DAYS [facility] Oct 01, 2017 07:34 AM LIFETIME NON-TOBACCO USER [facility] Sep 28, 2016 08:44 AM LIFETIME NON-TOBACCO USER [facility] Oct 14, 2015 07:52 AM LIFETIME NON-TOBACCO USER [facility] Oct 11, 2014 07:59 AM LIFETIME NON-TOBACCO USER [facility] January 15, 2007 07:55 AM LIFETIME NON-TOBACCO USER [facility] Advance Directives: All historical and current Section Date Range: From patient's date of to the date document was created. This section includes ALL of a patient's completed or amended [place] Advance and Rescinded Directives. The entries below indicate that a directive exists for the patient, but an actual copy is not included with this document. The data comes from all [facility]. Date Advance Directives Provider Source Apr 18, 2018 ADVANCE DIRECTIVE LARISSA SIGALA [facility] Apr 18, 2018 ADVANCE DIRECTIVE DISCUSSION OLGAAgustinLARISSA [facility] December 23, 2017 CLINICAL WARNING FARHAT SCHMID [facility] May 11, 2003 ADVANCE DIRECTIVE EBRT CASILLAS [facility] Encounter Notes: All associated encounter notes This section contains the clinical notes associated to the Encounter. Date/Time Encounter Note(s) Provider Source December 30, 2021 12:00 AM NONVA NOTE: ROOSEVELT HWOELL [facility] LOCAL TITLE: HOSPITALIZATION PRIVATE NONVA NOTE STANDARD TITLE: NONVA NOTE DATE OF NOTE: DECEMBER 30, 2021 ENTRY DATE: JAN 23 022@08:56:35 AUTHOR: ROOSEVELT HOWELL EXP COSIGNER: URGENCY: STATUS: COMPLETED VistA Imaging - Scanned Document This note contains attached HOSPITALIZATION PRIV ATE scanned document(s) received from an outside facility. Open [employer] Display to review the kemal leigh(s). /ronni/ ROOSEVELT HOWELL Data Security Coordinator - HIT Signed: 01/23/2022 08:56
--- OUTSIDE RECORDS SUMMARY | 2022-05-01 10:23 | XMS_ITS | Encounter Summary ---
:1935 Author Organization [facility] Address [address] [place] [address] Support Name Relationship Address Phone WADE LORENZO Unavailable [address] [place] [address] WADE LORENZO Unavailable [address] [place] [address] ARACELI MARSHALL Unavailable [address] [place] [address] GOGEORGE ARACELI Unavailable [address] [place] [address] Insurance Providers: All historical and current Section [...] Bales [place] Aug 19, [id number] Kristel [facility] (WNR) 2017 8 [id number] [phone] [facility] 1 [place] MEDICARE M[place] Aug 19, [id number] 800 Kristel [facility] (WNR) 2016 8 [id number] [phone] [facility] 1 Selected Encounter This section includes the information on record at [place] for the Encounter. Date/Time Encounter Type Encounter Description Reason Provider Source December 29, 2021 12:00 Outpatient Encounter ADMIN PAT ACTIVKARIN AM (MASNONCT) E Encounter Template Text not used by MT Plan of Treatment: Future Appointments (+ 6 months) and Future Tests (+/- 45 days) The Plan of Treatment section includes future care activities for the patient from all [place] [facility]. This section includes future appointments and future orders which are active, pending orscheduled.Future Appointments This section includes appointments that were scheduled to occur 6 months from the date of the Encounter, up to a maximum of 20 appointments. The data comes from all [facility]. Appointment Date/Time Appointment Type Appointment Facili ty Name Feb 02, 2022 09:30 AM AMBULATORY - MEDICINE [facility] Feb 07, 2022 01:37 PM AMBULATORY - NONE [facility] Feb 12, 2022 07:58 PM AMBULATORY - NONE [facility] Feb 26, 2022 07:36 PM AMBULATORY - NONE [facility] Mar 12, 2022 09:30 AM AMBULATORY - NONE [facility] Apr 02, 2022 09:00 AM AMBULATORY - PSYCHIATRY [facility] Apr 02, 2022 01:30 PM AMBULATORY - NEUROLOGY [facility] Apr 02, 2022 02:45 PM AMBULATORY - NONE [facility] Apr 26, 2022 10:00 AM AMBULATORY - PSYCHIATRY [facility] Apr 30, 2022 08:00 AM AMBULATORY - MEDICINE [facility] Apr 30, 2022 09:15 AM AMBULATORY - NONE [facility] May 11, 2022 06:15 PM AMBULATORY - NONE [facility] Active, Pending, and Scheduled Orders This section includes a listing of several types of active, pending, and scheduled orders, including clinic medications orders, diagnostic test orders, procedure orders and consult orders; where the start date of the order is 45 days before the date of the Encounter or 45 days after the date of the Encounter. The data comes from all [facility]. Test Date/Time Test Type Test Details Facility Name December 19, 2021 12:00 AM Laboratory - Chemistry BASIC METABOLIC [facility] Order PANEL+MG PLASMA SP ONCE December 19, 2021 12:00 AM Laboratory - Chemistry HEMOGLOBIN A1C BLOO D [facility] Order SP Social History: Smoking Status (Most current) and Tobacco Use (All prior to encounter date) This section includes the most current, and the historical, smoking and tobacco-related health factors from the [facility] where the Encounter took place.Current Smoking Status This section includes the most current smoking, or tobacco-related health factor, from the [place] facility where the Encounter took place. Date/Time Current Smoking Status Comment Facility Mar 22, 2021 07:45 AM VA-TOBACCO NEVER USED [place] [facility] Tobacco Use History This section includes a history of the smoking, or tobacco- related health factors, that were collected on or before the date of the Encounter. The data comes from the [place] facility where the Encounter took place. Date/Time Smoking Status/Tobacco Use Comment Xavi chanel Oct 02, 2019 10:02 AM VA-TOBACCO NEVER USED [place] [facility] May 21, 2018 09:05 AM VA-TOBACCO NEVER USED [place] [facility] December 25, 2017 06:14 PM INPT NO TOBACCO USE IN LAST [address] [facility] Oct 01, 2017 07:34 AM LIFETIME NON-TOBACCO USER [facility] Sep 28, 2016 08:44 AM LIFETIME NON-TOBACCO USER [facility] Oct 14, 2015 07:52 AM LIFETIME NON-TOBACCO USER [facility] Oct 11, 2014 07:59 AM LIFETIME NON-TOBACCO USER [facility] January 15, 2007 07:55 AM LIFETIME NON-TOBACCO USER [facility] Advance Directives: All historical and current Section Date Range: From patient's date of to the date document was created. This section includes ALL of a patient's completed or amended [place] Advance and Rescinded Directives. The entries below indicate that a directive exists for the patient, but an actual copy is not included with this document. The data comes from all [facility]. Date Advance Directives Provider Source Apr 18, 2018 ADVANCE DIRECTIVE LARISSA SIGALA [facility] Apr 18, 2018 ADVANCE DIRECTIVE DISCUSSION OLGAAgustinLARISSA [facility] December 23, 2017 CLINICAL WARNING FARHAT SCHMID [facility] May 11, [address] BERT [address] [facility] Encounter Notes: All associated encounter notes This section contains the clinical notes associated to the Encounter. Date/Time Encounter Note(s) Provider Source December 29, 2021 12:00 AM NONVA NOTE: ROOSEVELT HOWELL [facility] LOCAL TITLE: CARDIOLOGY NONVA NOTE STANDARD TITLE: NONVA NOTE DATE OF NOTE: DECEMBER 29, 2021 ENTRY DATE: JAN 23 022@08:58:44 AUTHOR: ROOSEVELT HOWELL EXP COSIGNER: URGENCY: STATUS: COMPLETED VistA Imaging - Scanned Document This note contains attached [CARDIOLOGY] scanned document(s) received from an outside facility. Open [employer] [facility] Display to review the kemal leigh(s). 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
--- OUTSIDE RECORDS SUMMARY | 2022-05-01 10:23 | XMS_ITS | Encounter Summary ---
:1935 Author Organization [facility] rs Address [address] [place] [address] Support Name Relationship Address Phone NATHANIEL LORENZO Unavailable [address] [place] [address] NATHANIEL LORENZO Unavailable [address] [place] [address] JOANNA ARACELI Unavailable [address] [place] [address] ARACELI MARSHALL Unavailable [address] [place] [address] Insurance Providers: All historical and current Section [...] Bales [place] M[place] Aug 19, [id number] Kristel [facility] (WNR) ADVANTAGE (WNR) 2016 8 [id number] [phone] [facility] 1 [place] MCR Aug 19, [id number] Kristel [facility] (WNR) ADVANTAGE (WNR) 2016 8 [id number] [phone] [facility] 1 Selected Encounter This section includes the information on record at [place] for the Encounter. Date/Time Encounter Type Encounter Description Reason Provider Source Jan 18, 2022 03:43 Outpatient Encounter TELEPHONE TRIAGE PM IHE Encounter Template Text not used by [place] Plan of Treatment: Future Appointments (+ 6 months) and Future Tests (+/- 45 days) The Plan of Treatment section includes future care activities for the patient from [facility] [place] [facility] This section includes future appointments and future orders which are active, pending orscheduled.Future Appointments This section includes appointments that were scheduled to occur 6 months from the date of the Encounter, up to a maximum of 20 appointments. The data comes from all [facility]. Appointment Date/Time Appointment Type Appointment Facili ty Name Feb 02, 2022 09:30 AM AMBULATORY - MEDICINE [facility] Feb 07, 2022 01:37 PM AMBULATORY - NONE [facility] Feb 12, 2022 07:58 PM AMBULATORY - NONE [facility] Feb 26, 2022 07:36 PM AMBULATORY - NONE [facility] Mar 12, 2022 09:30 AM AMBULATORY - NONE [facility] Apr 02, 2022 09:00 AM AMBULATORY - PSYCHIATRY [facility] Apr 02, 2022 01:30 PM AMBULATORY - NEUROLOGY [facility] Apr 02, 2022 02:45 PM AMBULATORY - NONE [facility] Apr 26, 2022 10:00 AM AMBULATORY - PSYCHIATRY [facility] Apr 30, 2022 08:00 AM AMBULATORY - MEDICINE [facility] Apr 30, 2022 09:15 AM AMBULATORY - NONE [facility] May 11, 2022 06:15 PM AMBULATORY - NONE [facility] Active, Pending, and Scheduled Orders This section includes a listing of several types of active, pending, and scheduled orders, including clinic medications orders, diagnostic test orders, procedure orders and consult orders; where the start date of the order is 45 days before the date of the Encounter or 45 days after the date of the Encounter. The data comes from all [facility]. Test Date/Time Test Type Test Details Facility Name December 19, 2021 12:00 AM Laboratory - Chemistry BASIC METABOLIC [facility] Order PANEL+MG PLASMA SP ONCE December 19, 2021 12:00 AM Laboratory - Chemistry HEMOGLOBIN A1C BLOO D [facility] Order SP Lab Results: +/- 30 days of the encounter This section includes the Chemistry and Hematology Lab Results on record with [place] for the patient. Radiology Reports and Pathology Reports are provided separately, in subsequent sections.Lab Results This section contains the Chemistry/Hematology Results that were resulted 30 days before or 30 daysafter the date of the Encounter. Date/Time Source Result Type Result - Unit Interpretation Reference Range Comment Feb 02, 2022 11:29 AM [facility] B 12 Specim en Type: SERUM No comment enter ed. Ordering Provid er: BILL ROONEY Report Released Date/Time: Feb 02, 2022 09:56 AM Reporting Lab: [facility] [address] [facility] [address] Performing Lab: [facility] [address] [facility] [address] B 12 192 L [phone] Feb 02, 2022 11:29 AM [facility] FOLATE Specim en Type: SERUM No comment enter ed. Ordering Provid er: BILL ROONEY Report Released Date/Time: Feb 02, 2022 09:56 AM Reporting Lab: [facility] [address] [facility] [address] Performing Lab: [facility] [address] [facility] [address] FOLATE 10.6 >7.0 Feb 02, 2022 [facility] TSH W/REFLEX TO FREE Specime n Type: PLASMA 11:29 AM T4 No comment enter ed. Ordering Provid er: BILL ROONEY Report Released Date/Time: Feb 02, 2022 09:56 AM Reporting Lab: [facility] [address] [facility] [address] Performing Lab: [facility] [address] [facility] [address] TSH 1.95 0.35-4.94 Feb 02, 2022 11:29 [facility] SYPHILIS ANTIBODY Specime n Type: SERUM AM No comment enter ed. Ordering Provid er: BILL ROONEY Report Released Date/Time: Feb 02, 2022 09:56 AM Reporting Lab: [facility] [address] [facility] [address] Performing Lab: [facility] [address] [facility] [address] SYPHILIS ANTIBODY NEGATIVE Feb 02, 2022 11:29 AM [facility] IRON GROUP Specim en Type: SERUM No comment enter ed. Ordering Provid er: BILL ROONEY Report Released Date/Time: Feb 02, 2022 09:56 AM Reporting Lab: [facility] [address] [facility] [address] Performing Lab: [facility] [address] [facility] [address] IRON 67 65-175 TIBC,CALCULATED 304 250-425 FERRITIN 39.3 21.8-274.7 IRON SATURATION 22 20-50 TRANSFERRIN [phone] Feb 02, 2022 11:29 [facility] HIV AG/AB SCREEN Specimen Type: SERUM AM No comment enter ed. Ordering Provid er: BILL ROONEY Report Released Date/Time: Feb 02, 2022 09:56 AM Reporting Lab: [facility] [address] [facility] [address] Performing Lab: [facility] [address] [facility] [address] HIV AG/AB SCREEN NEGATIVE NEGATIVE Feb 02, 2022 11:29 [facility] HEMOGLOBIN A1C Specimen Type: BLOOD AM No comment enter ed. Ordering Provid er: BILL ROONEY Report Released Date/Time: Feb 02, 2022 09:56 AM Reporting Lab: [facility] [address] [facility] [address] Performing Lab: [facility] [address] [facility] [address] HEMOGLOBIN A1C 8.2 H 4.0-6.0 Feb 02, 2022 11:29 AM [facility] CBC Specim en Type: BLOOD No comment enter ed. Ordering Provid er: BILL ROONEY Report Released Date/Time: Feb 02, 2022 09:56 AM Reporting Lab: [facility] [address] [facility] [address] Performing Lab: [facility] [address] [facility] [address] WBC 9.18 4.0-11.0 RBC 4.38 L 4.6-6.2 HGB 13.1 L 13.5-17.9 HCT 40.9 L 41-54 MCV 93.4 80-100 MCH 29.9 27-33 MCHC 32.0 32.0-37.5 PLT 284 150-400 MPV 9.8 7.4-10.4 RDW 15.5 H 11.5-14.5 Feb 02, 2022 [facility] COMPREHENSIVE METABOLIC Spec imen Type: PLASMA 11:29 AM PANEL+MG No comment enter ed. Ordering Provid er: BILL ROONEY Report Released Date/Time: Feb 02, 2022 09:56 AM Reporting Lab: [facility] [address] [facility] [address] Performing Lab: [facility] [address] [facility] [address] CREATININE 1.7 H 0.7-1.2 UREA NITROGEN 20 8-26 GLUCOSE 176 H 74-100 SODIUM 137 136-145 POTASSIUM 4.2 3.5-5.1 CHLORIDE 105 98-107 CO2 22 22-29 CALCIUM 9.6 8.4-10.2 PROTEIN,TOTAL 7.1 6.0-8.3 ALBUMIN 3.9 3.5-5.2 BILIRUBIN, TOTAL 0.6 0.2-1.2 MAGNESIUM 1.7 1.6-2.6 ANION GAP 10 5-15 ALKALINE PHOSPHATASE 112 40-150 ALT/SGPT 21 <55 AST/SGOT 16 <34 CREAT EGFR(CKD-EPI) 39 L >60 Feb 02, 2022 [facility] METHYLMA ACID, [facility]ST Specime n Type: SERUM 11:29 AM Comment: This t est was developed and its analytical performance characteristics have been determined by [facility] [place], [place]. It has not been cleared or approved by the U.S . Food and Drug Administration. This assay has been validated pursuant to the CLIA regulations and is used for clinical purposes. Test Performed by [facility], [facility], [address] [place] [address] Domenic Miller M.D., Ph.D., Director of Laboratories , CLIA [id number] Ordering Provid er: BILL ROONEY Report Released Date/Time: Feb 02, 2022 12:56 PM Reporting Lab: [facility] [address] Performing Lab: [address] METHYLMA ACID, [place] 820 H [phone] Feb 02, 2022 10:53 AM [facility] URINALYSIS Specim en Type: URINE No comment enter ed. Ordering Provid er: BILL ROONEY Report Released Date/Time: Feb 02, 2022 09:56 AM Reporting Lab: [facility] [address] Performing Lab: [facility] [address] URINE COLOR LIGHT-YELLOW SPECIFIC GRAVITY 1.010 1.003-1.035 [...] smoking and tobacco-related health factors from the [facility] where the Encounter took place.Current Smoking Status This section includes the most current smoking, or tobacco-related health factor, from the [place] facility where the Encounter took place. Date/Time Current Smoking Status Comment Facility Mar 22, 2021 07:45 AM [place] US[place] [facility] Tobacco Use History This section includes a history of the smoking, or tobacco- related health factors, that were collected on or before the date of the Encounter. The data comes from the [facility] where the Encounter took place. Date/Time Smoking Status/Tobacco Use Comment [facility] Oct 02, 2019 10:02 AM [place]-TO[place] US[place] [facility] May 21, 2018 09:05 AM [place]-TO[place]ACCO NEVER USED [place] [facility] December 25, 2017 06:14 PM INPT [...] ALL of a patient's completed or amended [place] Advance and Rescinded Directives. The entries below indicate that a directive exists for the patient, but an actual copy is not included with this document. The data comes from all [facility]. Date Advance Directives Provider Source Apr 18, 2018 ADVANCE DIRECTIVE LARISSA SIGALA [facility] Apr 18, 2018 ADVANCE DIRECTIVE DISCUSSION LARISSA SIGALA [facility] December 23, 2017 CLINICAL WARNING FARHAT SCHMID [facility] May 11, 2003 ADVANCE DIRECTIVE BERT CASILLAS [facility] Encounter Notes: All associated encounter notes This section contains the clinical notes associated to the Encounter. 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 No availability in the clinic for it er to schedule this. /ronni/ ANNE-MARIE SOLIS [address] [facility] [place] Signed: 01/18/2022 15:46 Receipt Acknowledged By: * AWAITING SIGNATURE * BILL ROONEY 01/18/2022 16:10 /ronni/ HELLEN WARREN, RN REGISTERED NURSE 01/18/2022 ADDENDUM STATUS: COMPLETED Please call pt to schedule. /HELLEN Gracia, RN REGISTERED NURSE Signed: 01/18/2022 16:10 Receipt Acknowledged By: * AWAITING SIGNATURE * GILBERTO MOSQUEDA
--- OUTSIDE RECORDS SUMMARY | 2022-05-01 10:24 | XMS_ITS | Encounter Summary ---
:1935 Author Organization [facility] rs Address [address] [place] [phone] Support Name Relationship Address Phone WADE LORENZO Unavailable [address] [place] [address] WADE LORENZO Unavailable [address] [place] [address] ARACELI MARSHALL Unavailable [address] [place] [address] MARILIA MARSHALLA Unavailable [address] [place] [address] Insurance Providers: All historical and current Section [...] B[place] Aug 19, [id number] 800 [facility]NR) [facility] 8 [id number] [phone] [facility] 1 [place] MEDICARE MCR Aug 19, [id number] 800 Kristel [facility]WNR) 2016 8 [id number] [phone] [facility] 1 Selected Encounter This section includes the information on record at [place] for the Encounter. Date/Time Encounter Type Encounter Description Reason Provider Source January 09, 2022 12:00 Outpatient Encounter EVENT (HISTORICAL) AM IHE Encounter Template Text not used by [place] Plan of Treatment: Future Appointments (+ 6 months) and Future Tests (+/- 45 days) The Plan of Treatment section includes future care activities for the patient from all [place] [facility]. This section includes future appointments and future orders which are active, pending orscheduled.Future Appointments This section includes appointments that were scheduled to occur 6 months from the date of the Encounter, up to a maximum of 20 appointments. The data comes from all [facility]. Appointment Date/Time Appointment Type Appointment Facili ty Name Feb 02, 2022 09:30 AM AMBULATORY - MEDICINE [facility] Feb 07, 2022 01:37 PM AMBULATORY - NONE [facility] Feb 12, 2022 07:58 PM AMBULATORY - NONE [facility] Feb 26, 2022 07:36 PM AMBULATORY - NONE [facility] Mar 12, 2022 09:30 AM AMBULATORY - NONE [facility] Apr 02, 2022 09:00 AM AMBULATORY - PSYCHIATRY [facility] Apr 02, 2022 01:30 PM AMBULATORY - NEUROLOGY [facility] Apr 02, 2022 02:45 PM AMBULATORY - NONE [facility] Apr 26, 2022 10:00 AM AMBULATORY - PSYCHIATRY [facility] Apr 30, 2022 08:00 AM AMBULATORY - MEDICINE [facility] Apr 30, 2022 09:15 AM AMBULATORY - NONE [facility] May 11, 2022 06:15 PM AMBULATORY - NONE [facility] Active, Pending, and Scheduled Orders This section includes a listing of several types of active, pending, and scheduled orders, including clinic medications orders, diagnostic test orders, procedure orders and consult orders; where the start date of the order is 45 days before the date of the Encounter or 45 days after the date of the Encounter. The data comes from all [facility]. Test Date/Time Test Type Test Details Facility Name December 19, 2021 12:00 AM Laboratory - Chemistry BASIC METABOLIC MIN [facility] Order PANEL+MG PLASMA SP ONCE December 19, 2021 12:00 AM Laboratory - Chemistry HEMOGLOBIN A1C BLOO D [facility] Order SP Lab Results: +/- 30 days of the encounter This section includes the Chemistry and Hematology Lab Results on record with [place] for the patient. Radiology Reports and Pathology Reports are provided separately, in subsequent sections.Lab Results This section contains the Chemistry/Hematology Results that were resulted 30 days before or 30 daysafter the date of the Encounter. Date/Time Source Result Type Result - Unit Interpretation Reference Range Comment Feb 02, 2022 11:29 AM [facility] B 12 Specim en Type: SERUM No comment enter ed. Ordering Provid er: BILL ROONEY Report Released Date/Time: Feb 02, 2022 09:56 AM Reporting Lab: [facility] [address] [facility] [address] Performing Lab: [facility] [address] [facility] [address] B 12 192 L [phone] Feb 02, 2022 11:29 AM [facility] FOLATE Specim en Type: SERUM No comment enter ed. Ordering Provid er: BILL ROONEY Report Released Date/Time: Feb 02, 2022 09:56 AM Reporting Lab: [facility] [address] [facility] [address] Performing Lab: [facility] [address] [facility] [address] FOLATE 10.6 >7.0 Feb 02, 2022 [facility] TSH W/REFLEX TO FREE Specime n Type: PLASMA 11:29 AM T4 No comment enter ed. Ordering Provid er: BILL ROONEY Report Released Date/Time: Feb 02, 2022 09:56 AM Reporting Lab: [facility] [address] [facility] [address] Performing Lab: [facility] [address] [facility] [address] TSH 1.95 0.35-4.94 Feb 02, 2022 11:29 [facility] SYPHILIS ANTIBODY Specime n Type: SERUM AM No comment enter ed. Ordering Provid er: BILL ROONEY Report Released Date/Time: Feb 02, 2022 09:56 AM Reporting Lab: [facility] [address] [facility] [address] Performing Lab: [facility] [address] [facility] [address] SYPHILIS ANTIBODY NEGATIVE Feb 02, 2022 11:29 AM [facility] IRON GROUP Specim en Type: SERUM No comment enter ed. Ordering Provid er: BILL ROONEY Report Released Date/Time: Feb 02, 2022 09:56 AM Reporting Lab: [facility] [address] [facility] [address] Performing Lab: [facility] [address] [facility] [address] IRON 67 65-175 TIBC,CALCULATED 304 250-425 FERRITIN 39.3 21.8-274.7 IRON SATURATION 22 20-50 TRANSFERRIN [phone] Feb 02, 2022 11:29 [facility] HEMOGLOBIN A1C Specimen Type: BLOOD AM No comment enter ed. Ordering Provid er: BILL ROONEY Report Released Date/Time: Feb 02, 2022 09:56 AM Reporting Lab: [facility] [address] [facility] [address] Performing Lab: [facility] [address] [facility] [address] HEMOGLOBIN A1C 8.2 H 4.0-6.0 Feb 02, 2022 11:29 [facility] HIV AG/AB SCREEN Specimen Type: SERUM AM No comment enter ed. Ordering Provid er: BILL ROONEY Report Released Date/Time: Feb 02, 2022 09:56 AM Reporting Lab: [facility] [address] [facility] [address] Performing Lab: [facility] [address] [facility] [address] HIV AG/AB SCREEN NEGATIVE NEGATIVE Feb 02, 2022 11:29 AM [facility] CBC Specim en Type: BLOOD No comment enter ed. Ordering Provid er: BILL ROONEY Report Released Date/Time: Feb 02, 2022 09:56 AM Reporting Lab: [facility] [address] [facility] [address] Performing Lab: [facility] [address] [facility] [address] WBC 9.18 4.0-11.0 RBC 4.38 L 4.6-6.2 HGB 13.1 L 13.5-17.9 HCT 40.9 L 41-54 MCV 93.4 80-100 MCH 29.9 27-33 MCHC 32.0 32.0-37.5 PLT 284 150-400 MPV 9.8 7.4-10.4 RDW 15.5 H 11.5-14.5 Feb 02, 2022 [facility] COMPREHENSIVE METABOLIC Spec imen Type: PLASMA 11:29 AM PANEL+MG No comment enter ed. Ordering Provid er: BILL ROONEY Report Released Date/Time: Feb 02, 2022 09:56 AM Reporting Lab: [facility] [address] [facility] [address] Performing Lab: [facility] [address] [facility] [address] CREATININE 1.7 H 0.7-1.2 UREA NITROGEN 20 8-26 GLUCOSE 176 H 74-100 SODIUM 137 136-145 POTASSIUM 4.2 3.5-5.1 CHLORIDE 105 98-107 CO2 22 22-29 CALCIUM 9.6 8.4-10.2 PROTEIN,TOTAL 7.1 6.0-8.3 ALBUMIN 3.9 3.5-5.2 BILIRUBIN, TOTAL 0.6 0.2-1.2 MAGNESIUM 1.7 1.6-2.6 ANION GAP 10 5-15 ALKALINE PHOSPHATASE 112 40-150 ALT/SGPT 21 <55 AST/SGOT 16 <34 CREAT EGFR(CKD-EPI) 39 L >60 Feb 02, 2022 [facility] METHYLMA ACID, [facility] Specime n Type: SERUM 11:29 AM Comment: This t est was developed and its analytical performance characteristics have been determined by [employer] [place], [place]. It has not been cleared or approved by the U.S . Food and Drug Administration. This assay has been validated pursuant to the CLIA regulations and is used for clinical purposes. Test Performed by [facility], [facility], [address] [place] [address] Domenic Miller M.D., Ph.D., Director of Laboratories , CLIA [id number] Ordering Provid er: BILL ROONEY Report Released Date/Time: Feb 02, 2022 12:56 PM Reporting Lab: [facility] [address] Performing Lab: [address] METHYLMA ACID, [place] 820 H [phone] Feb 02, 2022 10:53 AM [facility] URINALYSIS Specim en Type: URINE No comment enter ed. Ordering Provid er: BILL ROONEY Report Released Date/Time: Feb 02, 2022 09:56 AM Reporting Lab: [facility] [address] Performing Lab: [facility] [address] URINE COLOR LIGHT-YELLOW SPECIFIC GRAVITY 1.010 1.003-1.035 URINE BILIRUBIN NEGATIVE NEGATIVE URINE KETONES NEGATIVE NEGATIVE URINE GLUCOSE NEGATIVE <30 URINE PROTEIN NEGATIVE <20 URINE PH 5.0 5.0-8.0 URINE WBC/HPF 13 H 0-7 URINE BACTERIA FEW URINE RBC/HPF 13 H 0-3 APPEARANCE CLEAR SQUAMOUS EPITHELIAL NONE SEEN URINE BLOOD 1+ NEGATIVE URINE NITRITE NEGATIVE NEGATIVE LEUKOCYTE ESTERASE 250 NEGATIVE Immunizations: All administered on the encounter date This section contains immunizations associated to the Encounter. Immunization Series Date Issued Reaction Comments COVID-19 (PFIZER), MRNA, LNP-S, PF, 30 MCG/0.3 4 January 09, 2022 ML DOSE Social History: Smoking Status (Most current) and Tobacco Use (All prior to encounter date) This section includes the most current, and the historical, smoking and tobacco-related health factors from the [facility] where the Encounter took place.Current Smoking Status This section includes the most current smoking, or tobacco-related health factor, from the [place] facility where the Encounter took place. Date/Time Current Smoking Status Comment Facility Mar 22, 2021 07:45 AM [place]-TOBACCO NEVER [facility]ED [facility] Tobacco Use History This section includes a history of the smoking, or tobacco- related health factors, that were collected on or before the date of the Encounter. The data comes from the [facility] where the Encounter took place. Date/Time Smoking Status/Tobacco Use Comment [facility] Oct 02, 2019 10:02 AM [place] [facility] May 21, 2018 09:05 AM [place] [facility] December 25, 2017 06:14 PM INPT NO TOBACCO USE IN LAST 30 DAYS [facility] Oct 01, 2017 07:34 AM LIFETIME NON-TOBACCO USER [facility] Sep 28, 2016 08:44 AM LIFETIME NON-TOBACCO USER [facility] Oct 14, 2015 07:52 AM LIFETIME NON-TOBACCO USER [facility] Oct 11, 2014 07:59 AM LIFETIME NON-TOBACCO USER [facility] January 15, 2007 07:55 AM LIFETIME NON-TOBACCO USER [facility] Advance Directives: All historical and current Section Date Range: From patient's date of to the date document was created. This section includes ALL of a patient's completed or amended [place] Advance and Rescinded Directives. The entries below indicate that a directive exists for the patient, but an actual copy is not included with this document. The data comes from all [facility]. Date Advance Directives Provider Source Apr 18, 2018 ADVANCE DIRECTIVE LARISSA SIGALA [facility] Apr 18, 2018 ADVANCE DIRECTIVE DISCUSSION LARISSA SIGALA [facility] December 23, 2017 CLINICAL WARNING FARHAT SCHMID [facility] May 11, 2003 ADVANCE DIRECTIVE BERT CASILLAS [facility]
--- OUTSIDE RECORDS SUMMARY | 2022-05-01 10:24 | XMS_ITS | Encounter Summary ---
:1935 Author Organization [facility] Address [address] [place] [id number] Support Name Relationship Address Phone WADE LORENZO Unavailable [address] [place] [address] WADE LORENZO Unavailable [address] [place] [address] ARACELI MARSHALL Unavailable [address] [place] [address] GOGEORGE, ARACELI Unavailable [address] [place] [address] Insurance Providers: All historical and current Section [...] [place] Aug 19, [id number] Kristel EDDY [facility] (WNR) ADVANTAGE (WNR) 2017 8 [id number] [phone] [facility] 1 [place] Aug [id number] Kristel [facility]DY [facility] (WNR) ADVANTAGE (WNR) 2016 8 [id number] [phone] [facility] 1 Selected Encounter This section includes the information on record at [place] for the Encounter. Date/Time Encounter Type Encounter Reason Provider Source Description Feb 07, 2022 01:37 Outpatient ADMIN PAT ACTIVTIES ABI GANDARA Encounter (MASNONCT) IHE Encounter Template Text not used by [place] Plan of Treatment: Future Appointments (+ 6 months) and Future Tests (+/- 45 days) The Plan of Treatment section includes future care activities for the patient from [facility] [place] [facility] This section includes future appointments and future orders which are active, pending orscheduled.Future Appointments This section includes appointments that were scheduled to occur 6 months from the date of the Encounter, up to a maximum of 20 appointments. The data comes from all [place] treatment facilities. Appointment Date/Time Appointment Type Appointment Facili ty Name Feb 12, 2022 07:58 PM AMBULATORY - NONE [facility] Feb 26, 2022 07:36 PM AMBULATORY - NONE [facility] Mar 12, 2022 09:30 AM AMBULATORY - NONE [facility] Apr 02, 2022 09:00 AM AMBULATORY - PSYCHIATRY [facility] Apr 02, 2022 01:30 PM AMBULATORY - NEUROLOGY [facility] Apr 02, 2022 02:45 PM AMBULATORY - NONE [facility] Apr 26, 2022 10:00 AM AMBULATORY - PSYCHIATRY [facility] Apr 30, 2022 08:00 AM AMBULATORY - MEDICINE [facility] Apr 30, 2022 09:15 AM AMBULATORY - NONE [facility] May 11, 2022 06:15 PM AMBULATORY - NONE [facility] Jul 23, 2022 08:00 AM AMBULATORY - NEUROLOGY [facility] Lab Results: +/- 30 days of the encounter This section includes the Chemistry and Hematology Lab Results on record with [place] for the patient. Radiology Reports and Pathology Reports are provided separately, in subsequent sections.Lab Results This section contains the Chemistry/Hematology Results that were resulted 30 days before or 30 daysafter the date of the Encounter. Date/Time Source Result Type Result - Unit Interpretation Reference Range Comment Feb 02, 2022 11:29 AM [facility] B 12 Specim en Type: SERUM No comment enter ed. Ordering Provid er: BILL ROONEY Report Released Date/Time: Feb 02, 2022 09:56 AM Reporting Lab: [facility] [address] [facility] [id number] Performing Lab: [facility] [address] [facility] [address] B 12 192 L [phone] Feb 02, 2022 11:29 AM [facility] FOLATE Specim en Type: SERUM No comment enter ed. Ordering Provid er: BILL ROONEY Report Released Date/Time: Feb 02, 2022 09:56 AM Reporting Lab: [facility] [address] [facility] [address] Performing Lab: [facility] [address] [facility] [address] FOLATE 10.6 >7.0 Feb 02, 2022 [facility] TSH W/REFLEX TO FREE Specime n Type: PLASMA 11:29 AM T4 No comment enter ed. Ordering Provid er: BILL ROONEY Report Released Date/Time: Feb 02, 2022 09:56 AM Reporting Lab: [facility] [address] [facility] [address] Performing Lab: [facility] [address] [facility] [address] TSH 1.95 0.35-4.94 Feb 02, 2022 11:29 [facility] SYPHILIS ANTIBODY Specime n Type: SERUM AM No comment enter ed. Ordering Provid er: BILL ROONEY Report Released Date/Time: Feb 02, 2022 09:56 AM Reporting Lab: [facility] [address] [facility] [address] Performing Lab: [facility] [address] [facility] [address] SYPHILIS ANTIBODY NEGATIVE Feb 02, 2022 11:29 AM [facility] IRON GROUP Specim en Type: SERUM No comment enter ed. Ordering Provid er: BILL ROONEY Report Released Date/Time: Feb 02, 2022 09:56 AM Reporting Lab: [facility] [address] [facility] [address] Performing Lab: [facility] [address] [facility] [address] IRON 67 65-175 TIBC,CALCULATED 304 250-425 FERRITIN 39.3 21.8-274.7 IRON SATURATION 22 20-50 TRANSFERRIN [phone] Feb 02, 2022 11:29 [facility] HIV AG/AB SCREEN Specimen Type: SERUM AM No comment enter ed. Ordering Provid er: BILL ROONEY Report Released Date/Time: Feb 02, 2022 09:56 AM Reporting Lab: [facility] [address] [facility] [address] Performing Lab: [facility] [address] [facility] [address] HIV AG/AB SCREEN NEGATIVE NEGATIVE Feb 02, 2022 11:29 AM [facility] CBC Specim en Type: BLOOD No comment enter ed. Ordering Provid er: BILL ROONEY Report Released Date/Time: Feb 02, 2022 09:56 AM Reporting Lab: [facility] [address] Performing Lab: [facility] [address] WBC 9.18 4.0-11.0 RBC 4.38 L 4.6-6.2 HGB 13.1 L 13.5-17.9 HCT 40.9 L 41-54 MCV 93.4 80-100 MCH 29.9 27-33 MCHC 32.0 32.0-37.5 PLT 284 150-400 MPV 9.8 7.4-10.4 RDW 15.5 H 11.5-14.5 Feb 02, 2022 11:29 [facility] HEMOGLOBIN A1C Specimen Type: BLOOD AM No comment enter ed. Ordering Provid er: BILL ROONEY Report Released Date/Time: Feb 02, 2022 09:56 AM Reporting Lab: [facility] [address] Performing Lab: [facility] [address] HEMOGLOBIN A1C 8.2 H 4.0-6.0 Feb 02, 2022 [facility] COMPREHENSIVE METABOLIC Spec imen Type: PLASMA 11:29 AM PANEL+MG No comment enter ed. Ordering Provid er: BILL ROONEY Report Released Date/Time: Feb 02, 2022 09:56 AM Reporting Lab: [facility] [address] Performing Lab: [facility] [address] CREATININE 1.7 H 0.7-1.2 UREA NITROGEN 20 8-26 GLUCOSE 176 H 74-100 SODIUM 137 136-145 POTASSIUM 4.2 3.5-5.1 CHLORIDE 105 98-107 CO2 22 22-29 CALCIUM 9.6 8.4-10.2 PROTEIN,TOTAL 7.1 6.0-8.3 ALBUMIN 3.9 3.5-5.2 BILIRUBIN, TOTAL 0.6 0.2-1.2 MAGNESIUM 1.7 1.6-2.6 ANION GAP 10 5-15 ALKALINE PHOSPHATASE 112 40-150 ALT/SGPT 21 <55 AST/SGOT 16 <34 CREAT EGFR(CKD-EPI) 39 L >60 Feb 02, 2022 [facility] METHYLMA ACID, QUEST Specime n Type: SERUM 11:29 AM Comment: This t est was developed and its analytical performance characteristics have been determined by [employer] [place], [place]. It has not been cleared or approved by the U.S . Food and Drug Administration. This assay has been validated pursuant to the CLIA regulations and is used for clinical purposes. Test Performed by [facility], [facility], [address] [place] [address] Domenic Miller M.D., Ph.D., Director of Laboratories , CLIA [id number] Ordering Provid er: BILL ROONEY Report Released Date/Time: Feb 02, 2022 12:56 PM Reporting Lab: [facility] [address] Performing Lab: [address] METHYLMA ACID, QUEST 820 H [phone] Feb 02, 2022 10:53 AM [facility] URINALYSIS Specim en Type: URINE No comment enter ed. Ordering Provid er: IBLL ROONEY Report Released Date/Time: Feb 02, 2022 09:56 AM Reporting Lab: [facility] [address] [facility] [address] Performing Lab: [facility] [address] URINE COLOR LIGHT-YELLOW SPECIFIC GRAVITY 1.010 1.003-1.035 [...] smoking and tobacco-related health factors from the [place] facility where the Encounter took place.Current Smoking Status This section includes the most current smoking, or tobacco-related health factor, from the [place] facility where the Encounter took place. Date/Time Current Smoking Status Comment Facility Feb 02, 2022 09:30 AM [place]-TOBACCO NEVER USED [place] [facility] Tobacco Use History This section includes a history of the smoking, or tobacco- related health factors, that were collected on or before the date of the Encounter. The data comes from the [place] facility where the Encounter took place. Date/Time Smoking Status/Tobacco Use Comment Xavi chanel Mar 22, 2021 07:45 AM [place]-TOBACCO NEVER USED [place] [facility] Oct 02, 2019 10:02 AM VA-TOBACCO NEVER USED [place] [facility] May 21, 2018 09:05 AM VA-TOBACCO NEVER USED [place] [facility] December 25, 2017 06:14 PM INPT NO TOBACCO USE IN LAST 30 DAYS [facility] Oct 01, 2017 07:34 AM LIFETIME NON-TOBACCO USER [facility] Sep 28, 2016 08:44 AM LIFETIME NON-TOBACCO USER [facility] Oct 14, 2015 07:52 AM LIFETIME NON-TOBACCO USER [facility] Oct 11, 2014 07:59 AM LIFETIME NON-TOBACCO USER [facility] January 15, 2007 07:55 AM LIFETIME NON-TOBACCO USER [facility] Advance Directives: All historical and current Section Date Range: From patient's date of to the date document was created. This section includes ALL of a patient's completed or amended [place] Advance and Rescinded Directives. The entries below indicate that a directive exists for the patient, but an actual copy is not included with this document. The data comes from all [facility]. Date Advance Directives Provider Source Apr 18, 2018 ADVANCE DIRECTIVE LARISSA SIGALA [facility] Apr 18, 2018 ADVANCE DIRECTIVE DISCUSSION LARISSA SIGALA [facility] December 23, 2017 CLINICAL WARNING FARHAT SCHMID [facility] May 11, 2003 ADVANCE DIRECTIVE BERT CASILLAS [facility] Encounter Notes: All associated encounter notes This section contains the clinical notes associated to the Encounter. Date/Time Encounter Note(s) Provider Source Feb 06, 2022 07:20 AM NONVA NOTE: VILLA COOLEY IS [facility] LOCAL TITLE: COMMUNITY CARE-SANDOVAL SELF PRESENTIN G CARE COORD PLAN STANDARD TITLE: NONVA NOTE DATE OF NOTE: FEB 06, 2022@07:20 ENTRY DATE: FEB 07, 2022@13:39:41 AUTHOR: VILLA COOLEY EXP COSIGNER: URGENCY: STATUS: COMPLETED COMMUNITY CARE-SANDOVAL SELF PRESENTING CARE CO ORD PLAN NOTE Has ADDENDA Emergency Notification Intake Date Presenting to the Facility: Jan Method of Contact: Notified from [employer] worklist Notification ID: [id number] [facility] Referral #: [facility] Name: Hospital: [facility] Address: [address] City: [place] State: [place] Zip Code: [facility] Facility Point of Contact: Name: Maddy Vera F: [phone] Chief complaint: FALL Primary Diagnosis: Disposition Admitted Route of Admission: Date of Admission: Jan Admitting Diagnosis: FALL [facility] Care Provider: Confirm Level of Care: PEARL Kamara /ronni/ VILLA COOLEY Table Games Manager(AOD) Signed: 02/07/2022 13:45 Receipt Acknowledged By: 02/08/2022 16:13 /ronni/ ABI GANDARA RN Utilization Management 02/08/2022 ADDENDUM STATUS: COMPLETED Faxed for records /ronni/ ABI GANDARA RN Utilization Management Signed: 02/08/2022 16:16 Receipt Acknowledged By: 02/09/2022 11:33 /ronni/ DOROTHY CONTI RN RN, BSN for ZARA DAVID 02/24/2022 ADDENDUM STATUS: COMPLETED Medical records received: 02/24/22 Cedar was seen in an outside ER on: 02/06/22 [facility] Diagnosis: Acute compression fracture Patient was seen and dischar gejessica a few hours ago with a compression fracture that occurred acutely when he tried to climb over the edge of the bathtub and fell. He was seen and evaluated by Dr. Coburn and disch arged with Miacalcin and oxycodone. He got home and took a dose of oxycod one at noon and continued to have pain and had his son bring him back to the emergency department. He was warned that this would not t reina all of his pain away. His son is concerned that if he gets more pain medicat ion he might fall again. They were offered admission but were told that this would likely be an obser vation admission often not covered by Medicare. The patient self does not w ant to be admitted to the hospital he just wants stronger pain medication. They return at a time that every ER room is full and we have eight or 10 patient's waiting to be roomed. I brought them into the triage room and merino d a discussion with them. We discussed that he can increase his oxy codone dose to 7.5 mg every 4 hours but needs to be careful with sedation and co nstipation. He should take Tylenol 1000 mg t.i.d .. He needs to use his walker a t all times. He needs to take steps to help prevent constipation. I am his prima doctor and he will contact me in a couple of days with an update. He does already have follow-up s et up with me for later on in the week. Both the patient and his son were comf ortable with this discharge plan. Medical records received and sent to [facility] for im port. Please review records when imported for any need ed follow up, medication changes, and place appropriate specialty consult s. /ronni/ ARACELI CASTRO RN REGISTERED NURSE Signed: 02/24/2022 10:52 Receipt Acknowledged By: * AWAITING SIGNATURE * BILL ROONEY * AWAITING SIGNATURE * ZARA DAVID
--- OUTSIDE RECORDS SUMMARY | 2022-05-01 10:24 | XMS_ITS | Encounter Summary ---
:1935 Author Organization [facility] rs Address [address] [place] [id number] Support Name Relationship Address Phone NATHANIEL LORENZO Unavailable [address] [place] [address] NATHANIEL LORENZO Unavailable [address] [place] [address] ARACELI MARSHALL Unavailable [address] [place] [address] MARILIA MARSHALLA Unavailable [address] [place] [address] Insurance Providers: All historical and current Section [...] [place] MED[place] M[place] Aug 19, [id number] [facility]el [facility] (WNR) 2017 8 [id number] [phone] [facility] 1 [place] MEDICARE M[place] Aug [id number] [facility] (WNR) 2016 8 [id number] [phone] [facility] 1 Selected Encounter This section includes the information on record at [place] for the Encounter. Date/Time Encounter Type Encounter Reason Provider Source Description Feb 02, 2022 OFFICE O/P EST PRIMARY ICD-10-CM I48.20 NENA GUNTER 09:30 AM HI 40-54 MIN CARE/MEDICINE Chronic atrial JOANNE L fibrillation, unspecified with Provider Comments: Chronic atrial fibrillation ([facility] [id number]) IHE Encounter Template Text not used by [place] Assessments - Encounter Diagnoses This section includes the primary and secondary diagnoses documented for the Encounter. Date/Time Primary/Secondary Diagnosis Name Provider Source Diagnosis Feb 02, 2022 PRIMARY Chronic atrial NENA GUNTER [facility] 10:46 AM fibrillation, JOANNE L HCS unspecified Feb 02, 2022 SECONDARY Encounter for JENNIFER RUIZ [facility] A 10:46 AM immunization [facility] Plan of Treatment: Future Appointments (+ 6 months) and Future Tests (+/- 45 days) The Plan of Treatment section includes future care activities for the patient from all [place] [facility] This section includes future appointments and future orders which are active, pending orscheduled.Future Appointments This section includes appointments that were scheduled to occur 6 months from the date of the Encounter, up to a maximum of 20 appointments. The data comes from all [place] treatment [facility]. Appointment Date/Time Appointment Type Appointment Facili ty Name Feb 07, 2022 01:37 PM AMBULATORY - [...] 30, 2022 08:00 AM AMBULATORY - MEDICINE [facility] Apr 30, 2022 09:15 AM AMBULATORY - NONE [facility] May 11, 2022 06:15 PM AMBULATORY - NONE [facility] Jul 23, 2022 08:00 AM AMBULATORY - NEUROLOGY [facility] Active, Pending, and [...] the Encounter. The data comes from all [place] treatment [facility]. Test Date/Time Test Type Test Details Facility Name December 19, 2021 12:00 AM Laboratory - Chemistry BASIC METABOLIC [facility] Order PANEL+MG PLASMA SP ONCE December 19, 2021 12:00 AM Laboratory - Chemistry HEMOGLOBIN A1C BLOO D [facility] Order SP Lab Results: +/- 30 days of the encounter This section includes the Chemistry and Hematology Lab Results on record with [place] for the patient. Radiology Reports and Pathology [...] [facility] [address] [facility] [address] Performing Lab: [facility] [address] [facility] [address] FOLATE 10.6 >7.0 Feb 02, 2022 [facility] TSH W/REFLEX TO FREE Specime n Type: PLASMA 11:29 AM T4 No comment enter ed. Ordering Provid er: BILL GUNTER Report Released Date/Time: Feb 02, 2022 09:56 AM Reporting Lab: [facility] [address] [facility] [address] Performing Lab: [facility] [address] [facility] [address] TSH 1.95 0.35-4.94 Feb 02, 2022 11:29 AM [facility] B 12 Specim en Type: SERUM No comment enter ed. Ordering Provid er: BILL GUNTER Report Released Date/Time: Feb 02, 2022 09:56 AM Reporting Lab: [facility] [address] [facility] [address] Performing Lab: [facility] [address] [facility] [address] B 12 192 L [phone] Feb 02, 2022 11:29 AM [facility] IRON GROUP Specim en Type: SERUM No comment enter ed. Ordering Provid er: BILL GUNTER Report Released Date/Time: Feb 02, 2022 09:56 AM Reporting Lab: [facility] [address] [facility] [address] Performing Lab: [facility] [address] [facility] [address] IRON 67 65-175 TIBC,CALCULATED 304 250-425 FERRITIN 39.3 21.8-274.7 IRON SATURATION 22 20-50 TRANSFERRIN [phone] Feb 02, 2022 11:29 [facility] SYPHILIS ANTIBODY Specime n Type: SERUM AM No comment enter ed. Ordering Provid er: BILL GUNTER Report Released Date/Time: Feb 02, 2022 09:56 AM Reporting Lab: [facility] [address] [facility] [address] Performing Lab: [facility] [address] [facility] [address] SYPHILIS ANTIBODY NEGATIVE Feb 02, 2022 11:29 [facility] HEMOGLOBIN A1C Specimen Type: BLOOD AM No comment enter ed. Ordering Provid er: BILL GUNTER Report Released Date/Time: Feb 02, 2022 09:56 AM Reporting Lab: [facility] [address] [facility] [address] Performing Lab: [facility] [address] [facility] [address] HEMOGLOBIN A1C 8.2 H 4.0-6.0 Feb 02, 2022 11:29 [facility] HIV AG/AB SCREEN Specimen Type: SERUM AM No comment enter ed. Ordering Provid er: BILL GUNTER Report Released Date/Time: Feb 02, 2022 09:56 AM Reporting Lab: [facility] [address] [facility] [address] Performing Lab: [facility] [address] [facility] [address] HIV AG/AB SCREEN NEGATIVE NEGATIVE Feb 02, 2022 [facility] COMPREHENSIVE METABOLIC Spec imen Type: PLASMA 11:29 AM PANEL+MG No comment enter ed. Ordering Provid er: BILL GUNTER Report Released Date/Time: Feb 02, 2022 09:56 AM Reporting Lab: [facility] [address] [facility] [address] Performing Lab: [facility] [address] [facility] [address] CREATININE 1.7 H 0.7-1.2 UREA NITROGEN 20 8-26 GLUCOSE 176 H 74-100 SODIUM 137 136-145 POTASSIUM 4.2 3.5-5.1 CHLORIDE 105 98-107 CO2 22 22-29 CALCIUM 9.6 8.4-10.2 PROTEIN,TOTAL 7.1 6.0-8.3 ALBUMIN 3.9 3.5-5.2 BILIRUBIN, TOTAL 0.6 0.2-1.2 MAGNESIUM 1.7 1.6-2.6 ANION GAP 10 5-15 ALKALINE PHOSPHATASE 112 40-150 ALT/SGPT 21 <55 AST/SGOT 16 <34 CREAT EGFR(CKD-EPI) 39 L >60 Feb 02, 2022 11:29 AM [facility] CBC Specim en Type: BLOOD No comment enter ed. Ordering Provid er: BILL GUNTER Report Released Date/Time: Feb 02, 2022 09:56 AM Reporting Lab: [facility] [address] [facility] [address] Performing Lab: [facility] [address] [facility] [address] WBC 9.18 4.0-11.0 RBC 4.38 L 4.6-6.2 [...] analytical performance characteristics have been determined by [facility] [place], [place]. It has not been cleared or approved by the U.S . Food and Drug Administration. This assay has been validated pursuant to the CLIA regulations and is used for clinical purposes. Test Performed by [facility], [facility] [place], [address] [place] [address] Domenic Miller M.D., Ph.D., Director of Laboratories , CLIA [id number] Ordering Provid er: BILL GUNTER Report Released Date/Time: Feb 02, 2022 12:56 PM Reporting Lab: [facility] [address] [facility] [phone] Performing Lab: [address] METHYLMA ACID, QUEST 820 H [phone] Feb 02, 2022 10:53 AM [facility] URINALYSIS Specim en Type: URINE No comment enter ed. Ordering Provid er: BILL GUNTER Report Released Date/Time: Feb 02, 2022 09:56 AM Reporting Lab: [facility] [address] [facility] [address] Performing Lab: [facility] [address] [facility] [address] URINE COLOR LIGHT-YELLOW SPECIFIC GRAVITY 1.010 1.003-1.035 URINE BILIRUBIN NEGATIVE NEGATIVE URINE KETONES NEGATIVE NEGATIVE URINE GLUCOSE NEGATIVE <30 URINE PROTEIN NEGATIVE <20 URINE PH 5.0 5.0-8.0 URINE WBC/HPF 13 H 0-7 URINE BACTERIA FEW URINE RBC/HPF 13 H 0-3 APPEARANCE CLEAR SQUAMOUS EPITHELIAL NONE SEEN URINE BLOOD 1+ NEGATIVE URINE NITRITE NEGATIVE NEGATIVE LEUKOCYTE ESTERASE 250 NEGATIVE Vital Signs: All taken on the encounter date This section contains inpatient and outpatient Vital Signs collected on the date of the Encounter. Date/Time Temperature Pulse Blood Respiratory SP02 Pain Height Weight Edvin dy Source Pressure Rate Mass Index Feb 02, 97.1 F 91 105/67 16 /min 97 % 0 284.1 37 [place] 2021 09:21 /min mm[Hg] lb [facility] Immunizations: All administered on the encounter date This section contains immunizations associated to the Encounter. Immunization Series Date Issued Reaction Comments PNEUMOCOCCAL POLYSACCHARIDE PPV23 Feb 02, 2022 Social History: Smoking Status (Most current) and Tobacco Use (All prior to encounter date) This section includes the most current, and the historical, smoking and tobacco-related health factors from the [place] facility where the Encounter took place.Current Smoking Status This section includes the most current smoking, or tobacco-related health factor, from the [place] facility where the Encounter took place. Date/Time Current Smoking Status Comment Facility Feb 02, 2022 09:30 AM [place]-TOBACCO NEVER USED [facility] Tobacco Use History This section includes a history of the smoking, or tobacco- related health factors, that were collected on or before the date of the Encounter. The data comes from the [place] facility where the Encounter took place. Date/Time Smoking Status/Tobacco Use Comment [facility] Mar 22, 2021 07:45 AM [place]-TO[place]AC[place] NEVER USED [facility] Oct 02, 2019 10:02 AM [place]-TOBACCO NEVER USED [facility] May 21, 2018 09:05 AM [place]-TOBACCO NEVER USED [facility] December 25, 2017 06:14 PM INPT [...] ALL of a patient's completed or amended [place] Advance and Rescinded Directives. The entries below indicate that a directive exists for the patient, but an actual copy is not included with this document. The data comes from all [place] facilities. Date Advance Directives Provider Source Apr 18, 2018 ADVANCE DIRECTIVE LARISSA SIGALA [facility] Apr 18, 2018 ADVANCE DIRECTIVE DISCUSSION LARISSA SIGALA [facility] December 23, 2017 CLINICAL WARNING FARHAT [facility] May 11, 2003 ADVANCE DIRECTIVE BERT CASILLAS [facility] Encounter Notes: All associated encounter notes This section contains the clinical notes associated to the Encounter. Date/Time Encounter Note(s) Provider Source Feb 02, 2022 10:11 INTERNAL MEDICINE NOTE: BILL GUNTER [facility] AM LOCAL TITLE: MEDICINE CLINIC NOTE L STANDARD TITLE: INTERNAL MEDICINE NOTE DATE OF NOTE: FEB 02, 2022@10:11 ENTRY DATE: FEB 02, 2022@10:11:50 AUTHOR: BILL GUNTER EXP COSIGNER: URGENCY: STATUS: COMPLETED MEDICINE CLINIC NOTE Has ADDENDA Assessment and plan: Cognitive decline with no return to baseline aft er recent prostatitis Resting tremor in both hands with pill-rolling m ovements noted in left MoCA score of 2 today Occupational therapy assessment from [facility] facility brought in by the family today indicative of s ignificant cognitive decline with recommendations to not drive, live alone, manage medications CT brain ordered along with blood work panel Neurocognitive assessment and neurology referral placed for assessment and further plans of care Continue current supports as already arranged by the family Grandson living with patient Patient does not drive Home health aide coming twice a week Son is arranging and dispensing medications Home safety eval has been done with safety bars and additional supports installed at home Insomnia -Melatonin 3 mg at night ordered today. Patient' s family wondering about Benadryl which given patient 's age and cognitive decline I do not feel is a good idea Yeast in skin folds -Nystatin ordered today Chronic medical issues not addressed today------ -------------> Type 2 diabetes mellitus goal A1c less than 8% ( age and renal function) -Regimen deescalated March 2021 secondary to re peated hypoglycemic episodes while A1c was in the 6% range -A1c 7.7% on last check in June. -Current regimen Metformin 500 mg twice daily Pioglitazone 30 mg every morning Glipizide 5 mg every morning -On statin -Not on BERE or ARB -Foot exam up-to-date per podiatry -Yearly eye exam [facility] -A1c ordered today Elevated PSA with BPH Urinary outlet obstruction with bacteremia requi ring hospitalization January 2021 TURP February 2021 Readmission for prostatitis with sepsis and UTI December 2021 -follows with urology Dr Moreno at [facility] -Continue finasteride 5 mg daily. -Checking a UA as above today to assess for ongo ing infection Chronic kidney disease stage 3 -Continue vitamin D Diastolic heart failure HTN Dyslipidemia Chronic atrial fibrillation -Managed by cardiology and in [place], Dr. Vlad contreras. -Current regimen Metoprolol succinate 100 mg daily Rivaroxaban 20 mg daily Atorvastatin 10 mg daily Lasix 20 mg daily Mild anemia, asymptomatic -Hemoglobin available during appointment and is 12, which is improved from last check. Iron studies are pending. -Patient entirely asymptomatic at this time. Giv en improvement of hemoglobin will defer FIT card and UA testing. Consider iro n supplementation depending on iron study results when they are available fo r review. corns and calluses Recent toenail injury -Continue follow-up with podiatry in the [facility] Dr. Sweeney -Continue intermittent prosthetics referrals for shoes OBIE -Continue nightly CPAP Gout -Continue allopurinol 100 mg daily Chronic low back pain -Currently not an issue -Physical therapy as needed -Has a history of spine injections in the past. Referral to pain intervention clinic as needed Health maintenance: -Has aged out of routine colon cancer screening -PSA managed by community urology -Does not meet criteria for lung cancer screenin g as he is a lifelong non- smoker -Does not meet criteria for AAA screening RTC in 3 months for overall care assessment to s ee how plan of care is coming together Nurse's notes reviewed from today. LUISANA EDDY is a 85 year old MALE with the following Chief complaint: concern for dementia patient hospitalized in December at OSH for prostatit is, UTI w/ sepsis. No discharge summary available. Patient was cherelle nola with antibiotics and exhibited encephalopathy and physical deconditio rafa. He was discharged to a long term facility for PT OT. Son Nathaniel gu ports that cognition has improved some since he was in the hospital but h e is markedly diminished from his prior baseline and they are very concerned. The patient lives in a home. His grandson has moved in with him to pr ovide him support and care there. They have had a home safety evaluation done. Patient no longer drives and son is arranging his prescriptions and also sees a home health aide 2 days a week Social/family history: as of January 2022 he is back in his home, his grandson has moved in with him. He has stopped driving. Lifelong non-smoker Nondrinker No illicit drug use HPI/ROS: As above otherwise negative for acute c omplaints but is limited by patient's cognition Active problems - Computerized Problem List is t he source for the followin. Type 2 diabetes mellitus (SNOMED CT 17322214 ) 2. OBESITY, UNSP 3. Psoriasis * 4. Social and personal history finding - Lives alone. Has brother in [place]. Friends felipe breaux. 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 5. History of adenomatous polyp of colon - Last c-scope 05/09/15 at [facility]. Two small polyp s. - 5 year follow up if appropriate. 6. Elevated PSA - follows with urology at [facility] - with BPH on terazosin - February 2021: TURP at [facility] 7. Chronic kidney disease stage 3 8. Diastolic heart failure - w/ HTN and dyslipidemia 9. Chronic atrial fibrillation - metoprolol and rivaroxaban 10. history of hospitalization - January 2021: Bacteremia secondary to urinary ou tflow obstruction from BPH - underwent a TURP at [facility] February 2021 11. corns and calluses - followed by podiatry in the community in [facility] 12. Gout - on allopurinol Allergies: SIMVASTATIN (Feb 29, 2004) CEPHALEXIN (Mar 01, 2004) Active and Recently Outpatient Medicatio ns (including Supplies): Active Outpatient Medications Status 1) ACCU-CHEK GUIDE (GLUCOSE) TEST STRIP USE ACTIVE TWICE WEEKLY TO CHECK BLOOD SUGAR--USE WITHIN 3 MINUTES OF REMOVING FROM CONTAINER 2) ALLOPURINOL 100MG TAB TAKE ONE TABLET BY MOUT H EVERY ACTIVE DAY 3) ATORVASTATIN CALCIUM 10MG TAB TAKE ONE-HALF T ABLET BY ACTIVE MOUTH EVERY DAY 4) CHOLECALCIF 25MCG (D3-1,000UNIT) TAB TAKE 200 0UNIT BY ACTIVE MOUTH EVERY DAY FOR VITAMIN-D SUPPLEMENTATION. 5) FERROUS SULFATE 325MG TAB TAKE ONE TABLET BY MOUTH ACTIVE EVERY DAY 6) FINASTERIDE 5MG TAB TAKE ONE TABLET BY MOUTH EVERY ACTIVE DAY FOR PROSTATE 7) FUROSEMIDE 20MG TAB TAKE ONE TABLET BY MOUTH EVERY ACTIVE DAY FOR LOWER EXTREMITY SWELLING; OKAY TO TAKE AN EXTRA DOSE DAILY NEEDEDFOR INCREASED SWELLIN G. 8) GLIPIZIDE 5MG TAB TAKE ONE TABLET BY MOUTH ACTIVE FOR DIABETES -TAKE 30 MINUTES BEFORE MEAL 9) METFORMIN HCL 1000MG TAB TAKE ONE-HALF TABLET BY ACTIVE MOUTH TWO TIMES A DAY 10) METOPROLOL SUCCINATE 200MG SA TAB TAKE ONE-H INTERMEDIATE ACTIVE TABLET BY MOUTH EVERY DAY 11) PIOGLITAZONE HCL 30MG TAB TAKE ONE TABLET BY MOUTH ACTIVE EVERY MORNING FOR BLOOD SUGAR 12) RIVAROXABAN 20MG TAB TAKE ONE TABLET BY MOUT H EVERY ACTIVE EVENING WITH A MEAL TO PREVENT BLOOD CLOTS EXAM: VS: Temp: 97.1 F [36.2 C] (02/02/2022 09:21) BP: 105/67 (02/02/2022 09:21) Pulse:91 (02/02/2022 09:21) Resp: 16 (02/02/2022 09:21) Pain: 0 (02/02/2022 09:21) Weight: WEIGHTS IN LAST 6 MONTHS: 284.1 (FEB 02, 2022@09:21:12) 275 (SEP 20, 2021@07:38:57) General: NAD, Alert but not oriented HEENT: PERRL EOMI Neck: no JVD Lungs: Speaking in full sentences with no increa sed work of breathing Ext: Resting tremor noted in both hands with pill-rolling movement in left noted Gait: stable and independant /yvette Gunter MD Physician Signed: 02/02/2022 10:46 02/02/2022 ADDENDUM STATUS: COMPLETED EDUCATION: PARTICIPANT(s): Patient Clean Catch Urine Instructed in collection of clean catch urine. Printed instructions provided and participant(s) is able to repeat t hese instructions accurately. Urinalysis sent to lab /ronni/ JENNIFER RUIZ LPN, LPN Signed: 02/02/2022 10:52 02/02/2022 ADDENDUM STATUS: COMPLETED Addendum and correction to above: Patient had a Mini-Cog assessment in the office NOT a MoCa. He scored a 2. /yvette Gunter MD Physician Signed: 02/02/2022 16:44 Receipt Acknowledged By: 02/03/2022 11:13 /ronni/ MELVI GALVAN, PhD., A [facility] Staff Neuropsychologist 02/02/2022 ADDENDUM STATUS: COMPLETED RN team: please let pt know that his UA still appears to be clearin some infection. Given his history of chronic prostatitis, I strongly r ecommend he f/u with his urologist (Dr Moreno at [facility]) to see if additio nal antibiotic treatment or intervention is warranted /ronni/ Bill Gunter MD Physician Signed: 02/02/2022 16:46 Receipt Acknowledged By: 02/06/2022 09:37 /ronni/ ZARA DAVID RN REGISTERED NURSE 02/06/2022 ADDENDUM STATUS: COMPLETED Attempted to contact patient regarding test resu lts. Left secure message for patient to return call related to his test resul ts. /ronni/ ZARA J WOOD, RN REGISTERED NURSE Signed: 02/06/2022 09:38 02/12/2022 ADDENDUM STATUS: COMPLETED B12 low and MMA high c/w B12 deficiency Rx for B12 supplement ordered for mail out. [facility] recs /ronni/ Bill Gunter MD Physician Signed: 02/12/2022 17:18 Receipt Acknowledged By: 02/13/2022 09:18 /ronni/ ZARA DAVID RN REGISTERED NURSE 02/13/2022 ADDENDUM STATUS: COMPLETED Attempted to contact patient regarding lab resul ts. Left secure message for patient to return call. /ronni/ ZARA DAVID RN REGISTERED NURSE Signed: 02/13/2022 09:20 03/12/2022 ADDENDUM STATUS: COMPLETED Impression: 1. Age-appropriate involutional changes. 2. No acute superimposed intracranial finding. await neurology recommendations /ronni/ Bill Gunter MD Physician Signed: 03/12/2022 16:52 Feb 02, 2022 09:28 INTERNAL MEDICINE OUTPATIENT NOTE: LILIAN RUIZ [facility] LOCAL TITLE: MEDICINE CLINIC NURSING NOTE STANDARD TITLE: INTERNAL MEDICINE OUTPATIENT NOT E DATE OF NOTE: FEB 02, 2022@09:28 ENTRY DATE: FEB 02, 2022@09:28:45 AUTHOR: JENNIFER RUIZ EXP COSIGNER: URGENCY: STATUS: COMPLETED MEDICINE CLINIC NURSING NOTE Has ADDENDA * TYPE OF VISIT: Appointment Check In Type of appointment: In-person appointment REASON FOR VISIT: consult for neuro ALLERGIES: SIMVASTATIN (Feb 29, 2004) CEPHALEXIN (Mar 01, 2004) VITAL SIGNS: Blood Pressure: 105/67 (02/02/2022 09:21) Pulse: 91 (02/02/2022 09:21) Respiration: 16 (02/02/2022 09:21) Temperature: 97.1 F [36.2 C] (02/02/2022 09:21) Weight: 284.1 lb [128.87 kg] (02/02/2022 09:21) Height: 73.5 in [186.7 cm] (09/20/2021 07:38) BMI: 37.1 O2 Sat: 97% (02/02/2022 09:21) Pain: 0 (02/02/2022 09:21) PAIN SCREEN: Patient is not having significant pain that the y wish to discuss with their provider today. Tobacco Use Screening: The patient has never used tobacco. Nursing Annual Screening: Fall History Screen During the past 12 months, have you had any fal ls? Patient does not report any falls in the past 1 2 months. MEDICATIONS: Patient is on one of the following medication c lasses: Antihypertensives, Antidepressants, Antipsychot ics, Diuretics, or Controlled substance medication used for pain. FALL RISK ADVICE: Fall Risk Advice provided. Handout entitled Fa ll Prevention At Home reviewed and given to patient and/or significan t other. Alcohol Use Screen Alcohol Screen: SCREEN FOR ALCOHOL (AUDIT-C) An alcohol screening test (AUDIT-C) was negativ e (score=0). 1. How often did you have a drink containing al cohol in the past year? Never 2. How many drinks containing alcohol did you h ave on a typical day when you were drinking in the past year? Response not required due to responses to other questions. 3. How often did you have six or more drinks on one occasion in the past year? Response not required due to responses to other questions. Script Talk Screen Are you able to read your prescription bottles with your glasses, magnifiers or other aids? Yes or patient not taking any prescriptions. Skin Screen Patient reports any current pressure ulcers, a history of pressure ulcers, or a wound from a medical lab assistant or Patient is bed-confined or a wheelchair-user or Patient requires assistance to transfer/change position No, Skin Screen is Negative Home Abuse/Violence Screen Is your home free of abuse and violence? Yes Outpatient Nutrition Screen Body Mass Index (BMI)= 37.1 Newborn: Collection DT Specimen Test Name Result Units R ef Range 09/20/2021 06:38 BLOOD HEMOGLOBIN A1C 7.8 H % 4 .0 - 6.0 [place] Hgb A1C: No data available [place] Hgb A1C: No data available Point of Care Hgb A1C: POC HGB A1C____ Is patient's BMI less than 18.5? No Does patient have swallowing, coughing, or chew ing problems affecting oral intake? No Has patient experienced unplanned weight loss o r gain greater than 10 pounds over the last 2 months? No Is patient's Hgb A1C (Glycosylated Hemoglobin) greater than 9.5? No Is patient receiving Total Parenteral Nutrition (TPN) or Tube Feedings? No Patient Health Education Screen BARRIERS/SPECIAL NEEDS: No barriers identified PREFERRED STYLE OF LEARNING: No preference stated Client Assistive Service (TANYA) Screen Does the patient require assistance with outpat ient visit? No /ronni/ JENNIFER RUIZ LPN, LPN Signed: 02/02/2022 09:32 02/02/2022 ADDENDUM STATUS: COMPLETED COVID-19 Immunization: Pfizer COVID-19 Vaccine given previously Patient received a prior dose of the Pfizer COV ID-19 Vaccine. Date: January 09, 2022 Series: Series 4 Location: [facility] /ronni/ JENNIFER RUIZ LPN, LPN Signed: 02/02/2022 09:39 02/02/2022 ADDENDUM STATUS: COMPLETED Pneumococcal PPSV23 (Pneumovax): The patient received pneumococcal polysaccharid e vaccine PPSV23 (Pneumovax) 0.5ml IM today in Left Deltoid. Coremaker Floor: [employer] Lot # and Expiration Date: [id number] 11/10/22 Administered by protocol/policy Complications: None The pneumococcal polysaccharide vaccine PPSV23 (Pneumovax) VIS was given to the patient today. VIS version date Jun 17 019. /ronni/ JENNIFER RUIZ LPN, LPN Signed: 02/02/2022 10:35
--- OUTSIDE RECORDS SUMMARY | 2022-05-01 10:25 | XMS_ITS | Encounter Summary ---
:1935 Author Organization [facility] Address [address] [place] [id number] Support Name Relationship Address Phone WADE LORENZO Unavailable [address] [place] [address] WADE LORENZO Unavailable [address] [place] [address] ARACELI MARSHALL Unavailable [address] [place] [address] ARACELI MARSHALL Unavailable [address] [place] [address] Insurance Providers: All historical and current Section [...] [place] M[place] Aug 19, [id number] Kristel EDDY [facility] (WNR) ADVANTAGE (WNR) 2016 8 [id number] [phone] [facility] 1 [place] MEDICARE M[place] Aug 19, [id number] Kristel [place] [facility] (WNR) ADVANTAGE (WNR) 2017 03 [id number] [phone] [facility] 1 Selected Encounter This section includes the information on record at [place] for the Encounter. Date/Time Encounter Type Encounter Description Reason Provider Source Feb 26, 2022 08:06 Outpatient Encounter TELEPHONE/ANCILLARY AM IHE Encounter Template Text not used by [place] Plan of Treatment: Future Appointments (+ 6 months) and Future Tests (+/- 45 days) The Plan of Treatment section includes future care activities for the patient from all [place] treatmentfacritical access hospitalities. This section includes future appointments and future orders which are active, pending orscheduled.Future Appointments This section includes appointments that were scheduled to occur 6 months from the date of the Encounter, up to a maximum of 20 appointments. The data comes from all [place] treatment facilities. Appointment Date/Time Appointment Type Appointment Facili ty Name Mar 12, 2022 09:30 AM AMBULATORY - NONE [facility] Apr 02, 2022 09:00 AM AMBULATORY - PSYCHIATRY [facility] Apr 02, 2022 01:30 PM AMBULATORY - NEUROLOGY [facility] Apr 02, 2022 02:45 PM AMBULATORY - NONE [facility] Apr 26, 2022 10:00 AM AMBULATORY - PSYCHIATRY [facility] Apr 30, 2022 08:00 AM AMBULATORY - MEDICINE [facility] Apr 30, 2022 09:15 AM AMBULATORY - NONE [facility] May 11, 2022 06:15 PM AMBULATORY - NONE [facility] Jul 23, 2022 08:00 AM AMBULATORY - NEUROLOGY [facility] Lab Results: +/- 30 days of the encounter This section includes the Chemistry and Hematology Lab Results on record with [place] for the patient. Radiology Reports and Pathology Reports are provided separately, in subsequent sections.Lab Results This section contains the Chemistry/Hematology Results that were resulted 30 days before or 30 daysafter the date of the Encounter. Date/Time Source Result Type Result - Unit Interpretation Reference Range Comment Feb 02, 2022 11:29 AM [facility] B 12 Specim en Type: SERUM No comment enter ed. Ordering Provid er: BILL ROONEY Report Released Date/Time: Feb 02, 2022 09:56 AM Reporting Lab: [facility] [address] [facility] [address] Performing Lab: [facility] [address] [facility] [address] B 12 192 L [phone] Feb 02, 2022 11:29 AM [facility] FOLATE Specim en Type: SERUM No comment enter ed. Ordering Provid er: BILL ROONEY Report Released Date/Time: Feb 02, 2022 09:56 AM Reporting Lab: [facility] [address] [facility] [address] Performing Lab: [facility] [address] [facility] [address] FOLATE 10.6 >7.0 Feb 02, 2022 [facility] TSH W/REFLEX TO FREE Specime n Type: PLASMA 11:29 AM T4 No comment enter ed. Ordering Provid er: BILL ROONEY Report Released Date/Time: Feb 02, 2022 09:56 AM Reporting Lab: [facility] [address] [facility] [address] Performing Lab: [facility] [address] [facility] [address] TSH 1.95 0.35-4.94 Feb 02, 2022 11:29 [facility] SYPHILIS ANTIBODY Specime n Type: SERUM AM No comment enter ed. Ordering Provid er: BILL ROONEY Report Released Date/Time: Feb 02, 2022 09:56 AM Reporting Lab: [facility] [address] [facility] [address] Performing Lab: [facility] [address] [facility] [address] SYPHILIS ANTIBODY NEGATIVE Feb 02, 2022 11:29 AM [facility] IRON GROUP Specim en Type: SERUM No comment enter ed. Ordering Provid er: BILL ROONEY Report Released Date/Time: Feb 02, 2022 09:56 AM Reporting Lab: [facility] [address] [facility] [address] Performing Lab: [facility] [address] [facility] [address] IRON 67 65-175 TIBC,CALCULATED 304 250-425 FERRITIN 39.3 21.8-274.7 IRON SATURATION 22 20-50 TRANSFERRIN [phone] Feb 02, 2022 11:29 [facility] HEMOGLOBIN A1C Specimen Type: BLOOD AM No comment enter ed. Ordering Provid er: BILL ROONEY Report Released Date/Time: Feb 02, 2022 09:56 AM Reporting Lab: [facility] [address] [facility] [address] Performing Lab: [facility] [address] [facility] [address] HEMOGLOBIN A1C 8.2 H 4.0-6.0 Feb 02, 2022 11:29 [facility] HIV AG/AB SCREEN Specimen Type: SERUM AM No comment enter ed. Ordering Provid er: BILL ROONEY Report Released Date/Time: Feb 02, 2022 09:56 AM Reporting Lab: [facility] [address] [facility] [address] Performing Lab: [facility] [address] [facility] [address] HIV AG/AB SCREEN NEGATIVE NEGATIVE Feb 02, 2022 11:29 AM [facility] CBC Specim en Type: BLOOD No comment enter ed. Ordering Provid er: BILL ROONEY Report Released Date/Time: Feb 02, 2022 09:56 AM Reporting Lab: [facility] [address] [facility] [address] Performing Lab: [facility] [address] [facility] [address] WBC 9.18 4.0-11.0 RBC 4.38 L 4.6-6.2 HGB 13.1 L 13.5-17.9 HCT 40.9 L 41-54 MCV 93.4 80-100 MCH 29.9 27-33 MCHC 32.0 32.0-37.5 PLT 284 150-400 MPV 9.8 7.4-10.4 RDW 15.5 H 11.5-14.5 Feb 02, 2022 [facility] COMPREHENSIVE METABOLIC Spec imen Type: PLASMA 11:29 AM PANEL+MG No comment enter ed. Ordering Provid er: BILL ROONEY Report Released Date/Time: Feb 02, 2022 09:56 AM Reporting Lab: [facility] [address] [facility] [address] Performing Lab: [facility] [address] [facility] [address] CREATININE 1.7 H 0.7-1.2 UREA NITROGEN 20 8-26 GLUCOSE 176 H 74-100 SODIUM 137 136-145 POTASSIUM 4.2 3.5-5.1 CHLORIDE 105 98-107 CO2 22 22-29 CALCIUM 9.6 8.4-10.2 PROTEIN,TOTAL 7.1 6.0-8.3 ALBUMIN 3.9 3.5-5.2 BILIRUBIN, TOTAL 0.6 0.2-1.2 MAGNESIUM 1.7 1.6-2.6 ANION GAP 10 5-15 ALKALINE PHOSPHATASE 112 40-150 ALT/SGPT 21 <55 AST/SGOT 16 <34 CREAT EGFR(CKD-EPI) 39 L >60 Feb 02, 2022 [facility] METHYLMA ACID, [place] Specime n Type: SERUM 11:29 AM Comment: This t est was developed and its analytical performance characteristics have been determined by [facility] [place], [place]. It has not been cleared or approved by the U.S . Food and Drug Administration. This assay has been validated pursuant to the CLIA regulations and is used for clinical purposes. Test Performed by [employer], [facility], [address] [place] [address] Domenic Miller M.D., Ph.D., Director of Laboratories , CLIA [id number] Ordering Provid er: BILL ROONEY Report Released Date/Time: Feb 02, 2022 12:56 PM Reporting Lab: [facility] [address] [facility] [address] Performing Lab: [address] METHYLMA ACID, [place] 820 H 87-318 Feb 02, 2022 10:53 AM [facility] URINALYSIS Specim en Type: URINE No comment enter ed. Ordering Provid er: BILL ROONEY Report Released Date/Time: Feb 02, 2022 09:56 AM Reporting Lab: [facility] [address] [facility] [address] Performing Lab: [facility] [address] [facility] [address] URINE COLOR LIGHT-YELLOW SPECIFIC GRAVITY 1.010 1.003-1.035 [...] tobacco-related health factors from the [facility] where the Encounter took place.Current Smoking Status This section includes the most current smoking, or tobacco-related health factor, from the [facility] where the Encounter took place. Date/Time Current Smoking Status Comment Facility Feb 02, 2022 09:30 AM [place]-TOBACCO NEVER USED [facility] Tobacco Use History This section includes a history of the smoking, or tobacco- related health factors, that were collected on or before the date of the Encounter. The data comes from the [place] facility where the Encounter took place. Date/Time Smoking Status/Tobacco Use Comment Xavi chanel Mar 22, 2021 07:45 AM [place]-TOBACCO NEVER USED [place] [facility] Oct 02, 2019 10:02 AM [place] USED [place] [facility] May 21, 2018 09:05 AM [place]-TOBACCO NEVER USED [place] [facility] December 25, 2017 06:14 PM INPT NO TOBACCO USE IN LAST 30 DAYS [facility] Oct 01, 2017 07:34 AM LIFETIME NON-TOBACCO USER [facility] Sep 28, 2016 08:44 AM LIFETIME NON-TOBACCO USER [facility] Oct 14, 2015 07:52 AM LIFETIME NON-TOBACCO USER [facility] Oct 11, 2014 07:59 AM LIFETIME NON-TOBACCO USER [facility] January 15, 2007 07:55 AM LIFETIME NON-TOBACCO USER [facility] Advance Directives: All historical and current Section Date Range: From patient's date of to the date document was created. This section includes ALL of a patient's completed or amended [place] Advance and Rescinded Directives. The entries below indicate that a directive exists for the patient, but an actual copy is not included with this document. The data comes from all [facility]. Date Advance Directives Provider Source Apr 18, 2018 ADVANCE DIRECTIVE LARISSA SIGALA [facility] Apr 18, 2018 ADVANCE DIRECTIVE DISCUSSION RAE SIGALAN [facility] December 23, 2017 CLINICAL WARNING FARHAT [facility] May 11, 2003 ADVANCE DIRECTIVE BERT CASILLAS [facility] Radiology Reports: +/- 30 days of the encounter Radiology Reports For cases when an order for radiology services may have been completed prior to the date of the Encounter, the report list includes the Radiology Reports that were completed up to 30 days before date of the Encounter. For cases when an order for radiology services may have been completed after the date of the Encounter, the report list also includes the Radiology Reports that were completed up to 30days after date of the Encounter. The data comes from all [place] treatment facilities. Date/Time Radiology Report Provider Source Mar 12, 2022 09:03 CT HEAD (P[facility] LU[facility]DY [id number] [phone] M Exm Date: MAR 12, 2022@09:03 Req Phys: BILL ROONEY Pat Loc: [facility] PACT IRIS WH 4D (Req'g Loc Img Loc: CT IMAGING Service: Unknown (Case [id number] COMPLETE) CT HEAD/BRAIN W/O CONTRAST ( CT Detailed) CPT:09138 Reason for Study: worsening cognition Clinical History: [place] IS NOT under investigation for COVID-19 or is COVID-19 negative Defer to radiologist for final CT protocol. Responsible provider name and phone number to n otify for critical findings if other than user placing the order a nd pager listed below: User placing orders pager: [phone] LAST 3: Collection DT Specimen Test Name Result Units Ref Range 09/20/2021 06:38 PLASMA CREATIN INE 1.7 H mg/dL 0.7 - 1.2 06/21/2021 06:43 PLASMA CREATININE 1.4 H mg/dL 0.7 - 1.2 03/22/2021 06:50 PLASMA CREATININE 1.5 H mg/dL 0.7 - 1.2 09/20/2021 06:38 PLASMA ESTIMATED GFR(eGF 3 8 L Ref: >=60 06/21/2021 06:43 PLASMA ESTIMATED GFR (eGF 48 L Ref: >=60 03/22/2021 06:50 PLASMA ESTIMATED GFR(eGF 44 L Ref: >=60 Allergies: ([facility]) SIMVASTATIN (Feb 29, 2004) CEPHALEXIN (Mar 01, 2004) Report Status: Verified Date Reported: MAR 12, 2022 Date Verified: MAR 12, 2022 Garnisher E-Sig:/ES/BRONSON SHEPPARD MD Report: NONCONTRAST CT OF THE HEAD 03/12/2022 9:03 AM INDICATION: Worsening cognition TECHNIQUE: Non- enhanced axial images of the brain were obtained from the base of the skull to the vertex. COMPARISON: 12/23/2017 DOSE: DLP 856 mGy*cm FINDINGS: Nexn-ff-bsdiofah volume loss, age meghan ropriate. Mild degree of age-related white matter hypodensity. No bleed, mass effect, or acute infarct is evident. Hippocampa l volume appears appropriate. Opacification of a septated right maxillary sin us air cell, as previously. Other paranasal sinuses and mastoid air cells are essentially clear. Bones are unremarkable. Impression: 1. Age-appropriate involutional changes. 2. No acute superimposed intracranial finding. Primary Interpreting Staff: BRONSON SHEPPARD MD, NEURORADIOLOGIST (Yady jacques) /Alanis Encounter Notes: All associated encounter notes This section contains the clinical notes associated to the Encounter. Date/Time Encounter Note(s) Provider Source Feb 26, 2022 08:06 AM [facility] CARE NOTE: SIRI QUICK [facility] LOCAL TITLE: [facility] ELIGIBILITY STANDARD TITLE: [facility] CARE NOTE DATE OF NOTE: FEB 26, 2022@08:06 ENTRY DATE: FEB 26, 2022@08:07:07 AUTHOR: MARVEL QUICK EXP COSIGNER: URGENCY: STATUS: COMPLETED COMM[facility]ITY P[facility]ITENTIARY ELIGIBILITY: This contact note is used to document a Veter an's administrative eligibility for a VA authorization at a [facility]. Referral Source/Location: [facility] ER Care [facility] Home: Contract Retirement: Yes Contact: Maral Varela Phone Number: Reviewed the following eligibility [facility] or [facility] Authorizatio n: No If yes: If administratively eligible, meets [facility] guidelines for skilled rehab and able/willing to participate: N o [place] has a clinical need for prison car e: Yes Hospice authorization: Yes would be eligible if enrolled in hospic e service - hospice not involved at this time. Referral source contact encouraged to do the fol lowing: Contact life insurance underwriter for further questions as needed. 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
--- OUTSIDE RECORDS SUMMARY | 2022-05-01 10:25 | XMS_ITS | Encounter Summary ---
:1935 Author Organization [facility] Address [address] [place] [address] Support Name Relationship Address Phone WADE LORENZO Unavailable [address] [place] [address] WADE LORENZO Unavailable [address] [place] [address] ARACELI MARSHALL Unavailable [address] [place] [address] ARACELI MARSHALL Unavailable [address] [place] [address] Insurance Providers: All historical and current Section [...] [place] M[place] Aug 19, [id number] Kristel EDDY FORMERLY [facility] (WNR) ADVANTAGE (WNR) 2017 8 [id number] [phone] [facility] 1 [place] MEDICARE M[place] Aug [id number] Kristel EDDY [facility] (WNR) ADVANTAGE (WNR) 2016 8 [id number] [phone] [facility] 1 Selected Encounter This section includes the information on record at [place] for the Encounter. Date/Time Encounter Type Encounter Reason Provider Source Description Feb 12, 2022 07:58 Outpatient ADMIN PAT ACTIVTIES ARACELI CASTRO PM Encounter (MASNONCT) IHE Encounter Template Text not used by [place] Plan of Treatment: Future Appointments (+ 6 months) and Future Tests (+/- 45 days) The Plan of Treatment section includes future care activities for the [facility] [place] [facility] This section includes future appointments and future orders which are active, pending orscheduled.Future Appointments This section includes appointments that were scheduled to occur 6 months from the date of the Encounter, up to a maximum of 20 appointments. The data comes from all [place] treatment facilities. Appointment Date/Time Appointment Type Appointment Facili ty Name Feb 26, 2022 07:36 PM AMBULATORY - NONE [facility] Mar 12, 2022 09:30 AM AMBULATORY - NONE [facility] Apr 02, 2022 09:00 AM AMBULATORY - PSYCHIATRY [facility] Apr 02, 2022 01:30 PM AMBULATORY - NEUROLOGY [facility] Apr 02, 2022 02:45 PM AMBULATORY - NONE [facility] Apr 26, 2022 10:00 AM AMBULATORY - PSYCHIATRY [facility] Apr 30, 2022 08:00 AM AMBULATORY - MEDICINE [facility] Apr 30, 2022 09:15 AM AMBULATORY - NONE [facility] May 11, 2022 06:15 PM AMBULATORY - NONE [facility] Jul 23, 2022 08:00 AM AMBULATORY - NEUROLOGY [facility] Lab Results: +/- 30 days of the encounter This section includes the Chemistry and Hematology Lab Results on record with [place] for the patient. Radiology Reports and Pathology Reports are provided separately, in subsequent sections.Lab Results This section contains the Chemistry/Hematology Results that were resulted 30 days before or 30 daysafter the date of the Encounter. Date/Time Source Result Type Result - Unit Interpretation Reference Range Comment Feb 02, 2022 11:29 AM [facility] B 12 Specim en Type: SERUM No comment enter ed. Ordering Provid er: BILL ROONEY Report Released Date/Time: Feb 02, 2022 09:56 AM Reporting Lab: [facility] [address] [facility] [address] Performing Lab: [facility] [address] [facility] [address] B 12 192 L [phone] Feb 02, 2022 11:29 AM [facility] FOLATE Specim en Type: SERUM No comment enter ed. Ordering Provid er: BILL ROONEY Report Released Date/Time: Feb 02, 2022 09:56 AM Reporting Lab: [facility] [address] [facility] [address] Performing Lab: [facility] [address] [facility] [address] FOLATE 10.6 >7.0 Feb 02, 2022 [facility] TSH W/REFLEX TO FREE Specime n Type: PLASMA 11:29 AM T4 No comment enter ed. Ordering Provid er: BILL ROONEY Report Released Date/Time: Feb 02, 2022 09:56 AM Reporting Lab: [facility] [address] [facility] [address] Performing Lab: [facility] [address] [facility] [address] TSH 1.95 0.35-4.94 Feb 02, 2022 11:29 [facility] SYPHILIS ANTIBODY Specime n Type: SERUM AM No comment enter ed. Ordering Provid er: BILL ROONEY Report Released Date/Time: Feb 02, 2022 09:56 AM Reporting Lab: [facility] [address] [facility] [address] Performing Lab: [facility] [address] [facility] [address] SYPHILIS ANTIBODY NEGATIVE Feb 02, 2022 11:29 AM [facility] IRON GROUP Specim en Type: SERUM No comment enter ed. Ordering Provid er: BILL ROONEY Report Released Date/Time: Feb 02, 2022 09:56 AM Reporting Lab: [facility] [address] [facility] [address] Performing Lab: [facility] [address] [facility] [address] IRON 67 65-175 TIBC,CALCULATED 304 250-425 FERRITIN 39.3 21.8-274.7 IRON SATURATION 22 20-50 TRANSFERRIN [phone] Feb 02, 2022 11:29 [facility] HEMOGLOBIN A1C Specimen Type: BLOOD AM No comment enter ed. Ordering Provid er: BILL ROONEY Report Released Date/Time: Feb 02, 2022 09:56 AM Reporting Lab: [facility] [address] [facility] [address] Performing Lab: [facility] [address] [facility] [address] HEMOGLOBIN A1C 8.2 H 4.0-6.0 Feb 02, 2022 11:29 [facility] HIV AG/AB SCREEN Specimen Type: SERUM AM No comment enter ed. Ordering Provid er: BILL ROONEY Report Released Date/Time: Feb 02, 2022 09:56 AM Reporting Lab: [facility] [address] [facility] [address] Performing Lab: [facility] [address] HIV AG/AB SCREEN NEGATIVE NEGATIVE Feb 02, 2022 11:29 AM [facility] CBC Specim en Type: BLOOD No comment enter ed. Ordering Provid er: BILL ROONEY Report Released Date/Time: Feb 02, 2022 09:56 AM Reporting Lab: [facility] [address] Performing Lab: [facility] [address] WBC 9.18 4.0-11.0 RBC 4.38 L 4.6-6.2 HGB 13.1 L 13.5-17.9 HCT 40.9 L 41-54 MCV 93.4 80-100 MCH 29.9 27-33 MCHC 32.0 32.0-37.5 PLT 284 150-400 MPV 9.8 7.4-10.4 RDW 15.5 H 11.5-14.5 Feb 02, 2022 [facility] COMPREHENSIVE METABOLIC Spec imen Type: PLASMA 11:29 AM PANEL+MG No comment enter ed. Ordering Provid er: BILL ROONEY Report Released Date/Time: Feb 02, 2022 09:56 AM Reporting Lab: [facility] [address] [facility] [address] Performing Lab: [facility] [address] CREATININE 1.7 H 0.7-1.2 UREA NITROGEN 20 8-26 GLUCOSE 176 H 74-100 SODIUM 137 136-145 POTASSIUM 4.2 3.5-5.1 CHLORIDE 105 98-107 CO2 22 22-29 CALCIUM 9.6 8.4-10.2 PROTEIN,TOTAL 7.1 6.0-8.3 ALBUMIN 3.9 3.5-5.2 BILIRUBIN, TOTAL 0.6 0.2-1.2 MAGNESIUM 1.7 1.6-2.6 ANION GAP 10 5-15 ALKALINE PHOSPHATASE 112 40-150 ALT/SGPT 21 <55 AST/SGOT 16 <34 CREAT EGFR(CKD-EPI) 39 L >60 Feb 02, 2022 [facility] METHYLMA ACID, QUEST Specime n Type: SERUM 11:29 AM Comment: This t est was developed and its analytical performance characteristics have been determined by [employer] [place], [place]. It has not been cleared or approved by the U.S . Food and Drug Administration. This assay has been validated pursuant to the CLIA regulations and is used for clinical purposes. Test Performed by [employer], [facility] [place], [address] [place] [address] Domenic Miller M.D., Ph.D., Director of Laboratories , CLIA [id number] Ordering Provid er: BILL ROONEY Report Released Date/Time: Feb 02, 2022 12:56 PM Reporting Lab: [facility] ONE [facility] [address] [place] [facility] [address] Performing Lab: [address] METHYLMA ACID, QUEST 820 H 87-318 Feb 02, 2022 10:53 AM [facility] URINALYSIS Specim en Type: URINE No comment enter ed. Ordering Provid er: BILL ROONEY Report Released Date/Time: Feb 02, 2022 09:56 AM Reporting Lab: [facility] [address] [facility] [address] Performing Lab: [facility] [address] [facility] [address] URINE COLOR LIGHT-YELLOW SPECIFIC GRAVITY 1.010 1.003-1.035 [...] smoking and tobacco-related health factors from the [facility] where the Encounter took place.Current Smoking Status This section includes the most current smoking, or tobacco-related health factor, from the [facility] where the Encounter took place. Date/Time Current Smoking Status Comment Facility Feb 02, 2022 09:30 AM [place]-TOBACCO NEVER USED [facility] Tobacco Use History This section includes a history of the smoking, or tobacco- related health factors, that were collected on or before the date of the Encounter. The data comes from the [place] facility where the Encounter took place. Date/Time Smoking Status/Tobacco Use Comment Xavi chanel Mar 22, 2021 07:45 AM [place]-TOBAC[place] NEVER USED [place] [facility] Oct 02, 2019 10:02 AM VA-TOBACCO NEVER USED [place] [facility] May 21, 2018 09:05 AM VA-TOBACCO NEVER USED [place] [facility] December 25, 2017 06:14 PM INPT NO TOBACCO USE IN LAST 30 DAYS [facility] Oct 01, 2017 07:34 AM LIFETIME NON-TOBACCO USER [facility] Sep 28, 2016 08:44 AM LIFETIME NON-TOBACCO USER [facility] Oct 14, 2015 07:52 AM LIFETIME NON-TOBACCO USER [facility] Oct 11, 2014 07:59 AM LIFETIME NON-TOBACCO USER [facility] January 15, 2007 07:55 AM LIFETIME NON-TOBACCO USER [facility] Advance Directives: All historical and current Section Date Range: From patient's date of to the date document was created. This section includes ALL of a patient's completed or amended [place] Advance and Rescinded Directives. The entries below indicate that a directive exists for the patient, but an actual copy is not included with this document. The data comes from all [facility]. Date Advance Directives Provider Source Apr 18, 2018 ADVANCE DIRECTIVE LARISSA SIGALA [facility] Apr 18, 2018 ADVANCE DIRECTIVE DISCUSSION OLGAAgustinLARISSA [facility] December 23, 2017 CLINICAL WARNING FARHAT SCHMID [facility] May 11, 2003 ADVANCE DIRECTIVE BERT CASILLAS [facility] Radiology Reports: +/- 30 days of the [...] the Encounter. The data comes from all [place] treatment facilities. Date/Time Radiology Report Provider Source Mar 12, 2022 09:03 CT [facility] [id number] -1935 M Exm Date: MAR 12, 2022@09:03 Req Phys: BILL ROONEY Pat Loc: [facility] PACT IRIS WH 4D (Req'g Loc Img Loc: CT IMAGING Service: Unknown (Case [id number] COMPLETE) CT HEAD/BRAIN W/O CONTRAST ( CT Detailed) CPT:28319 Reason for Study: worsening cognition Clinical History: IS NOT under investigation for COVID-19 or is COVID-19 negative Defer to radiologist for final CT protocol. Responsible provider name and phone number to n otify for critical findings if other than user placing the order a nd pager listed below: User placing orders pager: [phone] LAST 3: Collection DT Specimen Test Name [...] ESTIMATED GFR(eGF 44 L Ref: >=60 Allergies: ([place] only) SIMVASTATIN (Feb 29, 2004) CEPHALEXIN (Mar 01, 2004) Report Status: Verified Date Reported: MAR 12, 2022 Date Verified: MAR 12, 2022 Sql Programmer Analyst E-Sig:/ES/BRONSON SHEPPARD MD Report: NONCONTRAST CT OF THE HEAD 03/12/2022 9:03 AM INDICATION: Worsening cognition TECHNIQUE: Non- enhanced axial images of the brain were obtained from the base of the skull to the vertex. COMPARISON: 12/23/2017 DOSE: DLP 856 mGy*cm FINDINGS: Ruft-rw-svatzhue volume loss, age meghan ropriate. Mild degree [...] Encounter. Date/Time Encounter Note(s) Provider Source Feb 11, 2022 07:58 PM NONVA NOTE: BECCA VERONICA [facility] LOCAL TITLE: COMMUNITY CARE-SANDOVAL SELF PRESENTIN G CARE COORD PLAN STANDARD TITLE: NONVA NOTE DATE OF NOTE: FEB 11, 2022@19:58 ENTRY DATE: FEB 12, 2022@20:00:47 AUTHOR: BECCA VERONICA EXP COSIGNER: URGENCY: STATUS: COMPLETED COMMUNITY CARE-SANDOVAL SELF PRESENTING CARE CO ORD PLAN NOTE Has ADDENDA Emergency Notification Intake Date Presenting to the Facility: Jan Method of Contact: Notified from [employer] worklist Notification ID: [id number] [facility] [place] [facility] [place] [facility] Address: [address] [place] [address] City: [place] State: [place] Zip Code: [address] Phone : [facility] Point of Contact: Name: TADEO CARDOSO Chief complaint: BACK PAIN Primary Diagnosis: Disposition Discharged Date of discharge: Jan Discharge to home /ronni/ BECCA VERONICA NURSING EDUCATION CONSULTANT Signed: 02/12/2022 20:02 Receipt Acknowledged By: 02/14/2022 13:24 /es/ ARACELI CASTRO RN REGISTERED NURSE 02/14/2022 ADDENDUM STATUS: COMPLETED Records will be requested fo r this episode of care and will be uploaded to [employer] when received. /ronni/ ARACELI CASTRO RN REGISTERED NURSE Signed: 02/14/2022 13:24 Receipt Acknowledged By: 02/14/2022 13:35 /es/ ZARA DAVID RN REGISTERED NURSE 02/24/2022 ADDENDUM STATUS: COMPLETED Medical records received: 02/24/22 [place] was seen in an outside ER on: 02/11/22 No [facility] Diagnosis: Constipation I anticipate smaller dosing of magnesium citrate to aid in further bowel clean out. Needs to be on regular senna if continuing to take opiates. Hydrate. Return for marked increase in pain, fever, repea onla vomiting. Nystatin powder for this intertrigo and focus on keeping dry. Perhaps placing dry towels in folds Medical records received and sent to [facility] for im port. Please review records when imported for any need ed follow up, medication changes, and place appropriate specialty consult s. /ronni/ ARACELI CASTRO RN REGISTERED NURSE Signed: 02/24/2022 10:45 Receipt Acknowledged By: * AWAITING SIGNATURE * BILL ROONEY * AWAITING SIGNATURE * ZARA DAVID
--- OUTSIDE RECORDS SUMMARY | 2022-05-01 10:26 | XMS_ITS | Encounter Summary ---
:1935 Author Organization [facility] Address [address] [place] [address] Support Name Relationship Address Phone WADE LORENZO Unavailable [address] [place] [address] WADE LORENZO Unavailable [address] [place] [address] ARACELI MARSHALL Unavailable [address] [place] [address] ARACELI MARSHALL Unavailable [address] [place] [address] Insurance Providers: All historical and current Section [...] [place] MCR Aug 19, [id number] Kristel EDDY [facility] (WNR) ADVANTAGE (WNR) 2017 8 [id number] [phone] [facility] 1 [place] MEDICARE M[place] Aug 19, [id number] Kristel EDDY [facility] (WNR) ADVANTAGE (WNR) 2016 8 [id number] [phone] [facility] 1 Selected Encounter This section includes the information on record at [place] for the Encounter. Date/Time Encounter Type Encounter Reason Provider Source Description Feb 26, 2022 07:36 Outpatient ADMIN PAT ACTIVTIES ARACELI CASTRO PM Encounter (MASNONCT) IHE Encounter Template Text not used by [place] Plan of Treatment: Future Appointments (+ 6 months) and Future Tests (+/- 45 days) The Plan of Treatment section includes future care activities for the patient from all [facility] This section includes future appointments and future orders which are active, pending orscheduled.Future Appointments This section includes appointments that were scheduled to occur 6 months from the date of the Encounter, up to a maximum of 20 appointments. The data comes from all [place] treatment facilities. Appointment Date/Time Appointment Type Appointment Facili ty Name Mar 12, 2022 09:30 AM AMBULATORY - NONE [facility] Apr 02, 2022 09:00 AM AMBULATORY - PSYCHIATRY [facility] Apr 02, 2022 01:30 PM AMBULATORY - NEUROLOGY [facility] Apr 02, 2022 02:45 PM AMBULATORY - NONE [facility] Apr 26, 2022 10:00 AM AMBULATORY - PSYCHIATRY [facility] Apr 30, 2022 08:00 AM AMBULATORY - MEDICINE [facility] Apr 30, 2022 09:15 AM AMBULATORY - NONE [facility] May 11, 2022 06:15 PM AMBULATORY - NONE [facility] Jul 23, 2022 08:00 AM AMBULATORY - NEUROLOGY [facility] Lab Results: +/- 30 days of the encounter This section includes the Chemistry and Hematology Lab Results on record with [place] for the patient. Radiology Reports and Pathology Reports are provided separately, in subsequent sections.Lab Results This section contains the Chemistry/Hematology Results that were resulted 30 days before or 30 daysafter the date of the Encounter. Date/Time Source Result Type Result - Unit Interpretation Reference Range Comment Feb 02, 2022 11:29 AM [facility] B 12 Specim en Type: SERUM No comment enter ed. Ordering Provid er: BILL ROONEY Report Released Date/Time: Feb 02, 2022 09:56 AM Reporting Lab: [facility] [address] [facility] [address] Performing Lab: [facility] [address] [facility] [address] B 12 192 L [phone] Feb 02, 2022 11:29 AM [facility] FOLATE Specim en Type: SERUM No comment enter ed. Ordering Provid er: BILL ROONEY Report Released Date/Time: Feb 02, 2022 09:56 AM Reporting Lab: [facility] [address] [facility] [address] Performing Lab: [facility] [address] [facility] [address] FOLATE 10.6 >7.0 Feb 02, 2022 [facility] TSH W/REFLEX TO FREE Specime n Type: PLASMA 11:29 AM T4 No comment enter ed. Ordering Provid er: BILL ROOENY Report Released Date/Time: Feb 02, 2022 09:56 AM Reporting Lab: [facility] [address] [facility] [address] Performing Lab: [facility] [address] [facility] [address] TSH 1.95 0.35-4.94 Feb 02, 2022 11:29 [facility] SYPHILIS ANTIBODY Specime n Type: SERUM AM No comment enter ed. Ordering Provid er: BILL ROONEY Report Released Date/Time: Feb 02, 2022 09:56 AM Reporting Lab: [facility] [address] [facility] [address] Performing Lab: [facility] [address] [facility] [address] SYPHILIS ANTIBODY NEGATIVE Feb 02, 2022 11:29 AM [facility] IRON GROUP Specim en Type: SERUM No comment enter ed. Ordering Provid er: BILL ROONEY Report Released Date/Time: Feb 02, 2022 09:56 AM Reporting Lab: [facility] [address] [facility] [address] Performing Lab: [facility] [address] [facility] [address] IRON 67 65-175 TIBC,CALCULATED 304 250-425 FERRITIN 39.3 21.8-274.7 IRON SATURATION 22 20-50 TRANSFERRIN [phone] Feb 02, 2022 11:29 [facility] HIV AG/AB SCREEN Specimen Type: SERUM AM No comment enter ed. Ordering Provid er: BILL ROONEY Report Released Date/Time: Feb 02, 2022 09:56 AM Reporting Lab: [facility] [address] [facility] [address] Performing Lab: [facility] [address] [facility] [address] HIV AG/AB SCREEN NEGATIVE NEGATIVE Feb 02, 2022 11:29 [facility] HEMOGLOBIN A1C Specimen Type: BLOOD AM No comment enter ed. Ordering Provid er: BILL ROONEY Report Released Date/Time: Feb 02, 2022 09:56 AM Reporting Lab: [facility] [address] [facility] [address] Performing Lab: [facility] [address] [facility] [address] HEMOGLOBIN A1C 8.2 H 4.0-6.0 Feb 02, 2022 11:29 AM [facility] CBC Specim en Type: BLOOD No comment enter ed. Ordering Provid er: BILL ROONEY Report Released Date/Time: Feb 02, 2022 09:56 AM Reporting Lab: [facility] [address] [facility] [address] Performing Lab: [facility] [address] [facility] [address] WBC 9.18 4.0-11.0 RBC 4.38 L 4.6-6.2 HGB 13.1 L 13.5-17.9 HCT 40.9 L 41-54 MCV 93.4 80-100 MCH 29.9 27-33 MCHC 32.0 32.0-37.5 PLT 284 150-400 MPV 9.8 7.4-10.4 RDW 15.5 H 11.5-14.5 Feb 02, 2022 [facility] COMPREHENSIVE METABOLIC Spec imen Type: PLASMA 11:29 AM PANEL+MG No comment enter ed. Ordering Provid er: BILL ROONEY Report Released Date/Time: Feb 02, 2022 09:56 AM Reporting Lab: [facility] [address] [facility] [address] Performing Lab: [facility] [address] [facility] [address] CREATININE 1.7 H 0.7-1.2 UREA NITROGEN 20 8-26 GLUCOSE 176 H 74-100 SODIUM 137 136-145 POTASSIUM 4.2 3.5-5.1 CHLORIDE 105 98-107 CO2 22 22-29 CALCIUM 9.6 8.4-10.2 PROTEIN,TOTAL 7.1 6.0-8.3 ALBUMIN 3.9 3.5-5.2 BILIRUBIN, TOTAL 0.6 0.2-1.2 MAGNESIUM 1.7 1.6-2.6 ANION GAP 10 5-15 ALKALINE PHOSPHATASE 112 40-150 ALT/SGPT 21 <55 AST/SGOT 16 <34 CREAT EGFR(CKD-EPI) 39 L >60 Feb 02, 2022 [facility] METHYLMA ACID, [place] Specime n Type: SERUM 11:29 AM Comment: This t est was developed and its analytical performance characteristics have been determined by [employer] [place], [place]. It has not been cleared or approved by the U.S . Food and Drug Administration. This assay has been validated pursuant to the CLIA regulations and is used for clinical purposes. Test Performed by [facility] [employer], [facility] [place], [address] [place], [place] Domenic Miller M.D., Ph.D., Director of Laboratories , CLIA [id number] Ordering Provid er: BILL ROONEY Report Released Date/Time: Feb 02, 2022 12:56 PM Reporting Lab: [facility] [address] [facility] [address] Performing Lab: [address] METHYLMA ACID, [place] 820 H 87-318 Feb 02, 2022 10:53 AM [facility] URINALYSIS Specim en Type: URINE No comment enter ed. Ordering Provid er: BILL ROONEY Report Released Date/Time: Feb 02, 2022 09:56 AM Reporting Lab: [facility] [address] [facility] [address] Performing Lab: [facility] [address] [facility] [address] URINE COLOR LIGHT-YELLOW SPECIFIC GRAVITY 1.010 1.003-1.035 [...] smoking and tobacco-related health factors from the [place] facility where the Encounter took place.Current Smoking Status This section includes the most current smoking, or tobacco-related health factor, from the [facility] where the Encounter took place. Date/Time Current Smoking Status Comment Facility Feb 02, 2022 09:30 AM RI-TOBACCO NEVER USED [facility] Tobacco Use History This section includes a history of the smoking, or tobacco- related health factors, that were collected on or before the date of the Encounter. The data comes from the [place] facility where the Encounter took place. Date/Time Smoking Status/Tobacco Use Comment Xavi chanel Mar 22, 2021 07:45 AM RI-TOBACCO NEVER USED [place] [facility] Oct 02, 2019 10:02 AM [place]-TOBACCO NEVER USED [place] [facility] May 21, 2018 09:05 AM RI-TOBACCO NEVER USED [place] [facility] December 25, 2017 06:14 PM INPT NO TOBACCO USE IN LAST 30 DAYS [facility] Oct 01, 2017 07:34 AM LIFETIME NON-TOBACCO USER [facility] Sep 28, 2016 08:44 AM LIFETIME NON-TOBACCO USER [facility] Oct 14, 2015 07:52 AM LIFETIME NON-TOBACCO USER [facility] Oct 11, 2014 07:59 AM LIFETIME NON-TOBACCO USER [facility] January 15, 2007 07:55 AM LIFETIME NON-TOBACCO USER [facility] Advance Directives: All historical and current Section Date Range: From patient's date of to the date document was created. This section includes ALL of a patient's completed or amended [place] Advance and Rescinded Directives. The entries below indicate that a directive exists for the patient, but an actual copy is not included with this document. The data comes from all [facility]. Date Advance Directives Provider Source Apr 18, 2018 ADVANCE DIRECTIVE JOVONLARISSA [facility] Apr 18, 2018 ADVANCE DIRECTIVE DISCUSSION LARISSA SIGALA [facility] December 23, 2017 CLINICAL WARNING FARHAT SCHMID [facility] May 11, 2003 ADVANCE DIRECTIVE BERT CASILLAS [facility] Radiology Reports: +/- 30 days of the [...] the Encounter. The data comes from all [place] treatment facilities. Date/Time Radiology Report Provider Source Mar 12, 2022 09:03 CT HEAD (P): BRONSON SHEPPARD [facility] AM LUISANA EDDY [id number] -[phone] M Exm Date: MAR 12, 2022@09:03 Req Phys: BILL ROONEY Pat Loc: [facility] 4D (Req'g Loc Img Loc: CT IMAGING Service: Unknown (Case [id number] COMPLETE) CT HEAD/BRAIN W/O CONTRAST ( CT Detailed) CPT:05843 Reason for Study: worsening cognition Clinical History: IS NOT under investigation for COVID-19 or is COVID-19 negative Defer to radiologist for final CT protocol. Responsible provider name and phone number to n otify for critical findings if other than user placing the order a nd pager listed below: User placing orders pager: [phone] LAST 3: Collection DT Specimen Test Name [...] ESTIMATED GFR(eGF 44 L Ref: >=60 Allergies: ([place] only) SIMVASTATIN (Feb 29, 2004) CEPHALEXIN (Mar 01, 2004) Report Status: Verified Date Reported: MAR 12, 2022 Date Verified: MAR 12, 2022 [employer] Worker E-Sig:/ES/BRONSON SHEPPARD MD Report: NONCONTRAST CT OF THE HEAD 03/12/2022 9:03 AM INDICATION: Worsening cognition TECHNIQUE: Non- enhanced axial images of the brain were obtained from the base of the skull to the vertex. COMPARISON: 12/23/2017 DOSE: DLP 856 mGy*cm FINDINGS: Mbsc-ob-ocuvlpye volume loss, age meghan ropriate. Mild degree [...] Encounter. Date/Time Encounter Note(s) Provider Source Feb 23, 2022 07:37 PM [facility] LOCAL TITLE: COMMUNITY CARE-SANDOVAL SELF PRESENTIN G CARE COORD PLAN STANDARD TITLE: NONVA NOTE DATE OF NOTE: FEB 23, 2022@19:37 ENTRY DATE: FEB 26, 2022@19:37:40 AUTHOR: MICHEL TANG EXP COSIGNER: URGENCY: STATUS: COMPLETED COMMUNITY CARE-SANDOVAL SELF PRESENTING CARE CO ORD PLAN NOTE Has ADDENDA Emergency Notification Intake Date Presenting to the Facility: Feb Method of Contact: Notified from [employer] worklist Notification ID: [id number] [facility] Referral #: Name: Hospital: [place], [place] Address: [address] City: [place] State: [place] Zip Code: Phone : [facility] Facility Point of Contact: Name: Maddy Vera Chief complaint: back pain/injury Primary Diagnosis: Disposition Admitted Route of Admission: Date of Admission: Feb Admitting Diagnosis: back pain/injury Community Care Provider: Confirm Level of Care: 02/26/2022 4:17:01 PM CDT Agustina Abdul [address] [address] [address] SENT 02/26/2022 4:13:58 PM CDT Agustina Abdul [facility] Delroy Davila` /ronni/ MICHLE MONCADA, INSPECTOR PACKAGER Signed: 02/26/2022 19:41 Receipt Acknowledged By: 02/28/2022 14:36 /ronni/ ARACELI CASTRO RN REGISTERED NURSE 03/22/2022 ADDENDUM STATUS: COMPLETED Records requested for this episode of care x3, b ut not received. This [facility] RN will step out at this time, as I am unable to pr ocess further. /ronni/ ARACELI CASTRO RN REGISTERED NURSE Signed: 03/22/2022 16:33
--- OUTSIDE RECORDS SUMMARY | 2022-05-01 10:27 | XMS_ITS | Encounter Summary ---
:1935 Author Organization [facility] Address [address] [place] [id number] Support Name Relationship Address Phone NATHANIEL LORENZO Unavailable [id number] [place] [address] NATHANIEL LORENZO Unavailable [id number] [place] [address] ARACELI MARSHALL Unavailable [address] [place] [address] ARACELI MARSHALL Unavailable [address] [place] [address] Insurance Providers: All historical and current Section [...] [place] MCR Aug 19, [id number] Kristel EDDY [facility] (WNR) ADVANTAGE (WNR) 2017 8 [id number] [phone] [facility] 1 [place] MEDICARE M[place] Aug 19, [id number] Kristel EDDY [facility] (WNR) ADVANTAGE (WNR) 2016 8 [id number] [phone] [facility] 1 Selected Encounter This section includes the information on record at OR for the Encounter. Date/Time Encounter Type Encounter Reason Provider Source Description Apr 02, 2022 NRPSYC TST EVAL PSYCHOLOGICAL ICD-10-CM F03.90 BAILEY LUCERO N 09:00 AM PHYS/QHP EA TESTING Unspecified dementia without behavioral disturbance with Provider Comments: Unspecified Dementia without Behavioral Disturbance IHE Encounter Template Text not used by [facility] Assessments - Encounter Diagnoses This section includes the primary and secondary diagnoses documented for the Encounter. Date/Time Primary/Secondary Diagnosis Name Provider Source Diagnosis Apr 02, 2022 PRIMARY Unspecified FILIBERTO LUCERO [facility] 12:58 PM dementia without HCS behavioral disturbance Plan of Treatment: Future Appointments (+ 6 months) and Future Tests (+/- 45 days) The Plan of Treatment section includes future care activities for the patient from [facility]. This section includes future appointments and future orders which are active, pending orscheduled.Future Appointments This section includes appointments that were scheduled to occur 6 months from the date of the Encounter, up to a maximum of 20 appointments. The data comes from all OR treatment facilities. Appointment Date/Time Appointment Type Appointment Facili ty Name Apr 26, 2022 10:00 AM AMBULATORY - PSYCHIATRY [facility] Apr 30, 2022 08:00 AM AMBULATORY - MEDICINE [facility] Apr 30, 2022 09:15 AM AMBULATORY - NONE [facility] May 11, 2022 06:15 PM AMBULATORY - NONE [facility] Jul 23, 2022 08:00 AM AMBULATORY - NEUROLOGY [facility] Active, Pending, and Scheduled Orders This section includes a listing of several types of active, pending, and scheduled orders, including clinic medications orders, diagnostic test orders, procedure orders and consult orders; where the start date of the order is 45 days before the date of the Encounter or 45 days after the date of the Encounter. The data comes from all [facility] treatment [facility]. Test Date/Time Test Type Test Details Facility Name Apr 30, 2022 08:21 Laboratory - Chemistry URINALYSIS URINE WC ON CE [facility] AM Order Apr 30, 2022 08:21 Laboratory - CULTURE & SUSCEPTIBILITY [facility] AM Microbiology Order URINE WC May 11, 2022 06:15 Imaging - [facility] PM Resonance Imaging (MRI) Order Lab Results: +/- 30 days of the encounter This section includes the Chemistry and Hematology Lab Results on record with OR for the patient. Radiology Reports and Pathology Reports are provided separately, in subsequent sections.Lab Results This section contains the Chemistry/Hematology Results that were resulted 30 days before or 30 daysafter the date of the Encounter. Date/Time Source Result Type Result - Unit Interpretation Reference Range Comment Apr 30, 2022 [facility] BASIC METABOLIC Specimen Typ e: PLASMA 09:17 AM PANEL+MG No comment enter ed. Ordering Provid er: BILL GUNTER Report Released Date/Time: Apr 30, 2022 08:21 AM Reporting Lab: [facility] [address] [facility] [address] Performing Lab: [facility] [address] [facility] [address] CREATININE 1.2 0.7-1.2 UREA NITROGEN 26 8-26 GLUCOSE 140 H 70-100 SODIUM 138 136-145 POTASSIUM 3.8 3.5-5.1 CHLORIDE 107 98-107 CO2 20 L 22-29 CALCIUM 9.4 8.4-10.2 MAGNESIUM 1.7 1.6-2.6 ANION GAP 11 5-15 CREAT EGFR(CKD-EPI) 59 L >60 Apr 30, 2022 09:17 AM [facility] CBC Specim en Type: BLOOD No comment enter ed. Ordering Provid er: BILL GUNTER Report Released Date/Time: Apr 30, 2022 08:21 AM Reporting Lab: [facility] [address] [facility] [address] Performing Lab: [facility] [address] [facility] [address] WBC 10.40 4.0-11.0 RBC 3.96 L 4.6-6.2 HGB 12.3 L 13.5-17.9 HCT 37.8 L 41-54 MCV 95.5 80-100 MCH 31.1 27-33 MCHC 32.5 32.0-37.5 PLT 286 150-400 MPV 10.1 7.4-10.4 RDW 14.6 H 11.5-14.5 Apr 02, 2022 02:37 PM [facility] AMMONIA Specim en Type: PLASMA No comment enter ed. Ordering Provid er: MADISON SOL Report Released Date/Time: Apr 02, 2022 02:05 PM Reporting Lab: [facility] [address] [facility] [address] Performing Lab: [facility] [address] [facility] [address] AMMONIA <14 <72 Apr 02, 2022 02:37 PM [facility] B 12 Specim en Type: SERUM No comment enter ed. Ordering Provid er: BUSHARA,KHALAFALLA O Report Released Date/Time: Apr 02, 2022 02:05 PM Reporting Lab: [facility] [address] [facility] [address] Performing Lab: [facility] [address] B 12 [phone] Apr 02, 2022 [facility] LIVER FUNCTION TESTS Specime n Type: PLASMA 02:37 PM No comment enter ed. Ordering Provid er: MADISON SOL O Report Released Date/Time: Apr 02, 2022 02:05 PM Reporting Lab: [facility] [address] [facility] [address] Performing Lab: [facility] [address] BILIRUBIN, TOTAL 0.5 0.2-1.2 ALKALINE PHOSPHATASE 108 40-150 ALT/SGPT 24 <55 AST/SGOT 18 <34 GAMMA GTP 34 <64 Apr 02, 2022 [facility] METHYLMA ACID, [facility] Specime n Type: SERUM 02:37 PM Comment: This t est was developed and its analytical performance characteristics have been determined by [employer] [place], [place]. It has not been cleared or approved by the U.S . Food and Drug Administration. This assay has been validated pursuant to the CLIA regulations and is used for clinical purposes. Test Performed by [facility], [employer] [facility], [address] [place] [address] Domenic Miller M.D., Ph.D., Director of Laboratories , CLIA [id number] Ordering Provid er: MADISON SOL O Report Released Date/Time: Apr 02, 2022 04:37 PM Reporting [facility] [address] Performing Lab: [address] METHYLMA ACID, [place] 406 H 87-318 Vital Signs: All taken on the encounter date This section contains inpatient and outpatient Vital Signs collected on the date of the Encounter. Date/Time Temperature Pulse Blood Respiratory SP02 Pain Height Weight Edvin dy Source Pressure Rate Mass Index Apr 02 123/70 18 /min 93 % 3 [place] 2021 01:22 /min mm[Hg] IS [facility] Social History: Smoking Status (Most current) and Tobacco Use (All prior to encounter date) This section includes the most current, and the historical, smoking and tobacco-related health factors from the OR facility where the Encounter took place.Current Smoking Status This section includes the most current smoking, or tobacco-related health factor, from the OR facility where the Encounter took place. Date/Time Current Smoking Status Comment Facility Feb 02, 2022 09:30 AM VA-TOBACCO NEVER USED [place] [facility] Tobacco Use History This section includes a history of the smoking, or tobacco- related health factors, that were collected on or before the date of the Encounter. The data comes from the [facility] where the Encounter took place. Date/Time Smoking Status/Tobacco Use Comment [facility] Mar 22, 2021 07:45 AM VA-TOBACCO NEVER USED [place] [facility] Oct 02, 2019 10:02 AM OR-TOBACCO NEVER USED [place] [facility] May 21, 2018 09:05 AM VA-TOBACCO NEVER USED [place] [facility] December 25, 2017 06:14 PM INPT NO TOBACCO USE IN LAST 30 DAYS [facility] Oct 01, 2017 07:34 AM LIFETIME NON-TOBACCO USER [facility] Sep 28, 2016 08:44 AM LIFETIME NON-TOBACCO USER [facility] Oct 14, 2015 07:52 AM LIFETIME NON-TOBACCO USER [facility] Oct 11, 2014 07:59 AM LIFETIME NON-TOBACCO USER [facility] January 15, 2007 07:55 AM LIFETIME NON-TOBACCO USER [facility] Advance Directives: All historical and current Section Date Range: From patient's date of to the date document was created. This section includes ALL of a patient's completed or amended OR Advance and Rescinded Directives. The entries below indicate that a directive exists for the patient, but an actual copy is not included with this document. The data comes from all [facility]. Date Advance Directives Provider Source Apr 18, 2018 ADVANCE DIRECTIVE LARISSA SIGALA [facility] Apr 18, 2018 ADVANCE DIRECTIVE DISCUSSION LARISSA SIGALA [facility] December 23, 2017 CLINICAL WARNING [facility] May 11, 2003 ADVANCE DIRECTIVE BERT CASILLAS [facility] Radiology Reports: +/- 30 days of [...] the Encounter. The data comes from all OR treatment facilities. Date/Time Radiology Report Provider Source Mar 12, 2022 09:03 CT HEAD (P): BRONSON SHEPPARDKELLEY IS [facility] LUISANA EDDY [id number] -1935 M Exm Date: MAR 12, 2022@09:03 Req Phys: BILL GUNTER Pat Loc: MSP PACT IRIS WH 4D (Req'g Loc Img Loc: CT IMAGING Service: Unknown (Case [id number] COMPLETE) CT HEAD/BRAIN W/O CONTRAST ( CT Detailed) CPT:25634 Reason for Study: worsening cognition Clinical History: IS NOT under investigation for COVID-19 or is COVID-19 negative Defer to radiologist for final CT protocol. Responsible provider name and phone number to n otify for critical findings if other than user placing the order a nd pager listed below: User placing orders pager: [phone] LAST 3: Collection DT Specimen Test Name [...] ESTIMATED GFR(eGF 44 L Ref: >=60 Allergies: ([place] only) SIMVASTATIN (Feb 29, 2004) CEPHALEXIN (Mar 01, 2004) Report Status: Verified Date Reported: MAR 12, 2022 Date Verified: MAR 12, 2022 Credit Representative E-Sig:/ES/BRONSON SHEPPARD MD Report: NONCONTRAST CT OF THE HEAD 03/12/2022 9:03 AM INDICATION: Worsening cognition TECHNIQUE: Non- enhanced axial images of the brain were obtained from the base of the skull to the vertex. COMPARISON: 12/23/2017 DOSE: DLP 856 mGy*cm FINDINGS: Ijfw-mu-ajdqaytb volume loss, age meghan ropriate. Mild degree [...] the Encounter. Date/Time Encounter Note(s) Provider Source Apr 04, 2022 10:00 AM TELEHEALTH NOTE: FILIBERTO LUCERO IS [facility] LOCAL TITLE: TELEHEALTH TECHNOLOGY SCREENING (T TS)-HISTORICAL STANDARD TITLE: TELEHEALTH NOTE DATE OF NOTE: APR 04, 2022@10:00 ENTRY DATE: APR 04, 2022@10:00:18 AUTHOR: FILIBERTO LUCERO EXP COSIGNER: URGENCY: STATUS: COMPLETED agrees to OR Video Connect (VVC) and has capability and technology to complete a VVC visit, but needs a test call. E-mail: [email or web address] Device(s) they can use: Desktop/Laptop Additional Information: Special information about connecting to [facility]: Florinda bustamante is the 's niece who will be facilitating the techology and participa ting in the upcoming VVC appointment. DELMAR signed for Araceli on 04/02 and sen t to scanning. /ronni/ FILIBERTO LUCERO, PHD, LP, ABPP STAFF NEUROPSYCHOLIGST Signed: 04/04/2022 10:02 Apr 04, 2022 08:28 AM REPORT OF CONTACT: FILIBERTO LUCERO [facility] LOCAL TITLE: PATIENT CONTACT NOTE STANDARD TITLE: REPORT OF CONTACT DATE OF NOTE: APR 04, 2022@08:28 ENTRY DATE: APR 04, 2022@08:28:47 AUTHOR: FILIBERTO LUCERO EXP COSIGNER: URGENCY: STATUS: COMPLETED PATIENT CONTACT NOTE Has ADDENDA Patient contact Name of [place]: LUISANA EDDY Name/Relationship of Contact if other than Veter an: Nathaniel Lorenzo, caregiver Date & Time of Contact: Mar@08:29 Type of Contact: Telephone Reason for Contact: Received voice message from Nathaniel Lorenzo, who a sked who he should contact about requesting that the [place]'s Xare lto, prescribed by his current prison facility, be prescri bed through the OR. Alerting 's primary care team to this request. /ronni/ FILIBERTO LUCERO, PHD, LP, ABPP STAFF NEUROPSYCHOLIGST Signed: 04/04/2022 08:31 Receipt Acknowledged By: 04/04/2022 08:54 /ronni/ ZARA DAVID RN REGISTERED NURSE 04/04/2022 ADDENDUM STATUS: COMPLETED [facility] to alert him to contacting the [place]'s PC team ( signed a DELMAR form for Nathaniel on 03/19; sent to scanning). Nathaniel stated that the medication he was wondering abou t was Zoloft, not Xarelto. He also reported that he is trying to re-order kaelyn ral other medications (e.g., atorvastatin) and having dif ficulty doing this. He requested that the [place]'s primary care team contact willie lawson directly ([phone]), as he manages all of the 's medications, which are delivered to [facility]'s house. /yvette LUCERO, PHD, LP, ABPP STAFF NEUROPSYCHOLIGST Signed: 04/04/2022 08:39 Receipt Acknowledged By: * AWAITING SIGNATURE * BILL GUNTER 04/04/2022 09:13 /ronni/ ZARA DAVID RN REGISTERED NURSE 04/04/2022 ADDENDUM STATUS: COMPLETED Spoke with Nathaniel on the phon e. Medication renewals and refill request completed and set up for signature and for pharmacy to get ready to mail. Waiting for provider approval. /yvette DAVID RN REGISTERED NURSE Signed: 04/04/2022 09:15 Apr 02, 2022 09:00 AM MENTAL HEALTH CONSULT: FILIBERTO LUCERO [facility] LOCAL TITLE: MH NEUROPSYCHOLOGY CONSULT STANDARD TITLE: MENTAL HEALTH CONSULT DATE OF NOTE: APR 02, 2022@09:00 ENTRY DATE: APR 02, 2022@12:56:26 AUTHOR: FILIBERTO LUCERO EXP COSIGNER: URGENCY: STATUS: COMPLETED NEUROPSYCHOLOGY CONSULT Has ADDENDA Mr. Eddy completed a neur opsychological evaluation today. He arrived ion time with his caregivers to the appointment. Informed consent was obtained for participation, including purpose of the evaluati on and limits to confidentiality. A full neuropsychological repor t with impressions and recommendations to follow. Flora avila has been scheduled for 04/26 at 10am via [facility] per the [place]'s request. SAFETY ASSESSMENT: The explicitly denied suicidal ideation, intent, or plan. Risk factors: race, gender, age, complex medical status, anxiety Protective factors: engaged in healthcare, future- and goal-oriented, excellent support from niece and neighbor Risk assessment: Based on cu rrent risk and protective factors, acute and chronic risk for suicide is low /es/ FILIBERTO LUCERO, PHD, LP, ABPP STAFF NEUROPSYCHOLIGST Signed: 04/02/2022 12:58 04/09/2022 ADDENDUM STATUS: COMPLETED NEUROPSYCHOLOGICAL EVALUATION Patient Name: Luisana Eddy ([id number]) Referral source: Bill Gunter MD (Primary Care) Date of Evaluation: 04.02.22 Neuropsychologist: Filiberto Lucero, Ph.D., ABPP REFERRAL QUESTION: Mr. Eddy is an 86 year-old , right-handed, single, white male, referred for neuropsychological evaluation due to report of cognitive decline in relation to recen t hospitalizations and concerns from his caregivers. SUMMARY/IMPRESSIONS: The [place]'s presentation is consistent with a major neurocognitive disorder (dementia) due t o multiple etiologies. 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 Current pain, treatment with n arcotic medication related to recent compression fracture, and related ly disrupted sleep may also affect his cognitive abilities. Several additional aspects of his complex medical history in the past couple of years likely contribute, i ncluding recurrent UTIs and episodes of sepsis with altered mental status/de lirium. The literature on delirium suggests that a subset of indiv iduals do not return to baseline after even one episode of delirium. History is also consistent with multiple chronic medical conditions that can affect cognition including sleep apnea and multiple cerebrovascular risk factor conditions (e.g., hy pertension, hyperlipidemia, diabetes mellitus, obesity, chronic kidney disea se). Finally, symptoms of depression and anxiety can disrupt cognition in daily life and ongoing monitoring and intervention is recommended. Depr ession symptoms are likely related to his current circumstances while anxie ty sounds more longstanding. Memory performances are not amnestic and presentation is not consistent with a cortical neurodegenerative p rocess such as Alzheimer's disease though he remains at risk for AD due to his ag e and history. The [place]'s history is complex and they are encouraged to continue focusing on addr essing modifiable factors and evaluating most appropriate level of support. Wi th medical stability, he may experience some increase in cognitive fu nctioning but symptoms may persist and progress. DIAGNOSIS: DSM 5: Major neurocognitive disorder due to mult iple etiologies, unspecified anxiety disorder ICD 10: Unspecified Dementia without Beh avioral Disturbance (ICD-10-CM F03.90) (Primary), Anxiety Disorder, unspecified (ICD-10 -CM F41.9) Given results from current evaluation, the jesus garcia recommendations are proffered: 1. MEDICAL FOLLOW-UP: a. The and his caregivers are encouraged to persist with vitamin B12 injections and to follow-up with Neurology f or ongoing monitoring of neurological symptoms. b. Careful management of blood pressure, cholest candice and blood sugar levels, and weight is encouraged for stroke prev ention. c. The [place] is encouraged to continue to disc uss pain management with his prescribing providers, a s both pain and side effects of narcotic medication can affect cognition. d. Sleep is understandably disrupted related to pain and an unfamiliar sleeping environment. He is encouraged to monito r his sleep, focus on optimal sleep hygiene techniques, an d discuss sleep disruption with his providers should this persist. 2. MENTAL HEALTH a. The is encouraged to follow-up with h is providers at his facility who prescribed Zoloft regarding anxiety and mood management. In addition, he may benefit fro m relaxation strategies and continued discussion of his daily schedule to determine reasonable expec tations with family and providers. b. To optimize brain functioning, overall mental health, and quality of life, the is encouraged to continue to f ocus on physical activity (as approved by medical provider s), mental activity, social activity, and structure and routine. Physical activity in particular has been shown to support and possibly protect brain functioning. 3. COMPENSATORY STRATEGIES: The [place] and his caregivers and providers are encouraged to use compen satory strategies for optimal cognitive functioning. The following may be helpful and will be discuss ed during feedback: a. In conversation, make eye contact, minimize n oise in the environment, take notes if needed, check in with the [place] frequently to gauge his understanding, and summarize information at the end to assist with recall b. When approach a multi-step task with the Vete ran, write down concrete steps that can be crossed off to assist with tas k completion c. Use notes, alarms, and other reminders to ass ist with recall d. Focus on one task at a time e. Allow additional time to complete tasks f. Continue to bring a supportive person to medi [facility] appointments to assist with recall of information discussed 4. FUNCTIONAL SUPPORT: The is currently well-supported in his prison facility and by family and colin alejo. They are encouraged to discuss most appropriate myles ing environment and need for additional support with Primary Care and his facility providers to explo re appropriate resources as needed. 5. ADDITIONAL SUPPORT: Given the [place]'s cogni tive disorder and significant caregiving respo nsibilities of Nathaniel and Araceli, they may benefit from ideas and support offered through OR Jim mckeon and supportive community organizations such as the Alzheimer's Association, which is a community organization for individuals and famil ies managing ANY type of dementia, not just Alzheimer 's disease. These resources will be discussed during feedback. 6. NEUROPSYCHOLOGY FOLLOW-UP: Follow-up evaluati on is recommended in 12-18 months if clinically indicated (e.g., if they merino ve questions about changes in his cognitive functioning) to assist with monito ring cognitive and functional tire changer aircraft time, and to provide updated recomme ndations. Feedback is scheduled for 04/26 at 10am vi a [facility] per the 's request. Thank you for the opportunity to c onsult with this patient. If further information is needed, please contact the office at . - EXTENDED REPORT - Total professional time, including clinical inte rview (1 hr), testing and scoring (3 hrs), chart revie w, test interpretation, and report writing (3 hrs) = 7 hours. Evaluation was completed via hybrid mod el of hhrdfq-dz-lwqehr telehealth and movz-bi-gewj testing with PPE. Mr. Eddy provided verbal consent for neuropsy chological evaluation and treatment following the provision of inf ormation about confidentiality and its limitations. Sources of info rmation: clinical interview with the patient and his caregivers Nathaniel and Araceli, and review of the [facility] medical record. BEHAVIORAL OBSERVATIONS: The arrived on time with his caregivers to the appointment. He was dressed appropriately for the weather. Gait was not observed as he used a wheelchair. Bilateral action tremor in his hands was observed during testing, and resting tremor was observed in his left index finger during testing. Hearing and vision were adequate for th e evaluation (no glasses or hearing aids). Speech output was fluent and with in expectations for rate, rhythm, and volume. Word-finding difficulties we re occasionally observed in testing. Receptive language appeared int act. Thought processes were variable ? at times logical and goal-oriented or va gatito or disorganized. He did not appear to attend to internal stimul i and no psychotic processes were noted. Insight and judgment appeared adequate for safety purposes. Memory for recent history was good and he did not repeat h imself during the assessment. Mood appeared euthymic and affect was appropriate to content di scussed. He was cooperative throughout the interview and testing procedures and appeare d to put forth good effort on testing. PRESENTING PROBLEMS: Cognitive symptoms: The reported cogniti ve difficulty since the beginning of 2021. His caregivers Nathaniel (neighbo r/friend) and Araceli (niece) reported mild cognitive riley ges with onset a year ago but more drastic confusion about a day after his hospitalization in December, when he became quite disoriented, developed tremor, and had difficult y walking after spending time outside. Examples include di fficulty remembering names, multitasking, returning to a task if distracted, generally feeli ng less sharp than in the past, slowed thinking, difficulty remembe ring details of upcoming appointments, disorganized thought process when communi cating, word-finding difficulty, occasionally asking repeated questions, and variability in memory. Miguel e has started writing down appointment details and reported that Nathaniel and Araceli now assist with organization/planning tasks. They reported some fluctuation in cognitive symptoms (better at certain times of day) which the [place] believes is related to degree of medication adherence (he is current ly depended on staff at his prison facility to administer medication). They wondered if current use of oxycodone for back pain c ould contribute to cognitive symptoms. Regarding any behavioral change, Nathaniel rep orted that the is less outgoing and appears more subdued and quieter. They denied co ncerns about his judgment though noted he has never been a patient person. Activities of Daily Living: The has resi ded in a prison facility since February 2022. Willie s caregiver's son was living with him for 1-2 months prior to his change in residence, at which time he also had home from home health assistants. He reported that he i s supposed to wait for nursing support before using the restroom and other daily care t asks, though at times he does this independently due to short-staffing and katherine g delays in nursing response time. He described his under standing of the complexity of short-staffing and the reasons that they want him to wait for assistanc e, but also expressed frustration and stated that he wants to do many things himself. long-term staff manages medication administration, meals, and cleaning, while Nathaniel manages medication refills a cici Araceli assists with financial foundations associate. Nathaniel and Araceli took on these responsib ilities in December; they stated that they were unsure if these tasks were difficult in the past but he ap peared to need help after his December hospitalization. Nathaniel yanes as also been assisting with updates to the [place]'s home such as installing railings and renovating the bathroom. He last drove about a year ago. The typically spends h is time reading the paper, walking, and watching sports and movies on TV. Physical symptoms: The [place] reported improving back pain since his fall and compression fracture in January, and he hopes that he will be able to remove his hard corset after his medica l appointment at the end of the month. He takes 1-2 oxycodone pills per day to assist with sleep and uses Tylenol and lidocaine patches during the day. He participated in physi kinza therapy/rehabilitation though is now waiting for medical clearance to r estart these services. He is very invested in regaining strength with the goa l of returning home and is accustomed to being physically active. They also reported tremor during his episode of confusion in December 2021 that now appears when he is tired, stressed, or has an infection, particularly when he is eating or writing. Record indicates that tremor has also been associated with anxiet y in the past. They are concerned about his balance, which has d eclined since he stopped participating in physical therapy. Vision and hearing are good (no glasses or hearing aids). Psychological symptoms: When asked about mood, the [place] reported feeling down on some days, especially when he is not sleeping well. Araceli agreed that there are periods when he appears to feel down. His supportive caregivers and visiting friends help his mood. He was prescribed Zoloft 1-2 weeks ago to help with anxiety, with some benefit so far. Araceli reported that anxiety appears when he has to wait for nursing staff to complete cares, as he is accustomed to being very independent and regimented in his d aily routines. He reported frustration related to current circumsta nces. He explicitly denied suicidal ideation (please see below for additional saf ety assessment). Sleep is disrupted from needing to sleep on his back, being in an unfamiliar bed, a nd related to medication changes, though he benefits from taking oxycodone at night, from his CPAP, and reported good sleep for the past 3 days. The Vet kathia denied use of alcohol, tobacco products, or illicit substances. SAFETY ASSESSMENT: The explicitly denied suicidal ideation, intent, or plan. Risk factors: race, gender, age, complex medical status, anxiety Protective factors: engaged in healthcare, future- and goal-oriented, excellent support from niece and neighbor Risk assessment: Based on cu rrent risk and protective factors, acute and chronic risk for suicide is low MEDICAL AND PSYCHIATRIC HISTORY: Significant for comanaged care, atrial fibrillation, diastolic heart failure, hypertens ion, hyperlipidemia, diabetes mellitus, obesity, chronic kidney diseas e stage 3, B12 deficiency, gout, sleep apnea, septic shock (December 2020 per community lizzeth rds), TURP (February 2021), hospitalization for prostatitis, UTI, sepsis, an d encephalopathy (December 2021), additional hospitalization for acute confusion a nd ataxia with suspected contributions from delirium on dementia, possible effect from ciprofloxacin, and anxiety (December 2021), additional 2-3 hospitalizati ons in 8530-9123 for UTI, and fall with compression fracture (January) after which he moved to a long-term care facility; record indicates he has l ongstanding anxiety. He denied history of brain infection, known COVID infection, neopl asm, seizure, TBI, stroke, or any history of mental health intervention. Relevant medications listed in the record includ e atorvastatin, metoprolol, metformin, cyanocobalamin injections, me latonin, ferrous sulfate, finasteride, and glipizide. Nathaniel reported that the Bry orta is also taking Zoloft and he is working on getting an updated list of medication s from the 's care facility. NEURODIAGNOSTICS: Head CT (03/12/22) was reported as significant for mild to moderate volume loss, age-appropriate, and mild degree of age-related white matter hypodensity. Brain MRI (December 2021) was rep orted as absent of acute findings and significant for moderate age-related changes including atrophy and small vessel ischemic changes. Previous imaging studies reported similar findings. RELEVANT FAMILY HISTORY: Mild memory difficulty (mother, in her 90s, undiagnosed) DEVELOPMENTAL/OCCUPATIONAL/SOCIAL HISTORY: The Bry or[place] denied known and developmental problems. He denied diagno sis of LD/ADHD/special education/grade repetition in school though he reported social difficulty and that he was 99th out of a class of 100. He g raduated from high school. The [place] in the [employer] in the [employer] for 2 years. 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 The has never marrie d and does not have children. He currently lives in a long-term care facility in [place], [place]. PREVIOUS TESTING: MiniCog (02/02): 2/. TESTS ADMINISTERED: Empirically validated embedd ed and standalone measures of performance validity, Advanc ed Clinical Solutions Test of Premorbid Functioning (TOPF), Leeton Naming Test (BNT), CLOX, Ashley-Ka plan Executive Function Tests (D-KEFS) Verbal Fluency and Color-Word Interference, Geriatric Anxiety Inventory (GAI), Geriatric Depression Scale ? Short form (GDS-15), Repeatable Battery for the Assessment of Neuropsychological Sta tus (RBANS) Form A, Trailmaking Tests, Guerrero Adult Intelligence Scale-4th edition (W AIS-IV) Digit Span and Information, and the Guerrero Memory Sca le ? 3rd Edition (WMS-III) Information and Orientation and Mental Control. NOTE ON TEST ADMINISTRATION: Neuropsychological evaluation was completed via hybrid model of lmfkmz-tv-sx fice telehealth and vhzr-bu-dklm testing using face masks (examiner and ) and face sh ield (examiner). This assessment model is not consistent with standardized test adminis tration and cautious interpretation of results is recommended. EXAMINATION FINDINGS Test scores, per se, do not define impairment. Rather, a combination of factors identifies neuropsychological impairment . As such, high scores, or the lack of low scores, do not preclude the determination of functional limitations or impairment. Conversely, low scores do not nece ssarily indicate functional impairment; consideration of context is required to make such determinations (Willi et al., 2020). Descriptive Puente: RS= Raw Score SS= Standardized Score %ile= Percentile Rank Effort: Performances on 3 of 3 embedded and standalone measures of effort were within normal limits. Behavioral observations rueda ggested good engagement in testing. Results likely provide a reasonable rep resentation of the [place]'s daily cognitive functioning. Premorbid Intellectual Functioning RS SS %ile TOPF 24.00 89.00 23 WAISIV_Information 13.00 10.00 50 Orientation/Cognitive Screen RS SS %ile RBANS_TotalScore 413.00 78.00 7 WMSIII_InformationandOrientation Attention/Cognitive Efficiency RS SS %ile Trails_A 42.00 11.00 63 Trails_A_Errors 0.00 DKEFS_Color 41.00 8.00 25 DKEFS_Word 28.00 9.00 37 WMSIII_MentalControl 13 7 16 RBANS_DigitSpan 8.00 9.00 37 RBANS_Coding 22.00 5.00 5 WAISIV_DigitSpan 19.00 9.00 37 WAISIV_DigitSpan_Forward 6.00 6.00 9 WAISIV_DigitSpan_Backward 6.00 9.00 37 WAISIV_DigitSpan_Sequencing 7.00 12.00 75 WAISIV_LongestDigit_Forward 4.00 WAISIV_LongestDigit_Backward 3.00 WAISIV_LongestDigit_Sequencing 4.00 Language RS SS %ile DKEFS Letter Fluency 15.00 5.00 5 DKEFS Category Fluency 24.00 8.00 25 BNT 50.00 10.00 50 BNT_withPhonemicCues 53.00 RBANS_PictureNaming 10.00 >75 RBANS_SemanticFluency 16.00 9.00 37 Visuospatial Abilities RS SS %ile Clox2 13.00 -0.33 37 RBANS_FigureCopy 13.00 4.00 2 RBANS_LineOrientation 14.00 17-25 Learning and Memory RS SS %ile RBANS_ListLearning (2,3,3,4) 12.00 2.00 <1 RBANS_ListRecall 4.00 51-75 RBANS_ListRecognition 17.00 10-16 RBANS_ListHits 7.00 RBANS_ListFalsePositives 0.00 RBANS_StoryMemory 14.00 9.00 37 RBANS_StoryRecall 8.00 10.00 50 RBANS_FigureRecall 9.00 8.00 25 Executive Functioning RS SS %ile Trails_B 277.00 3.00 1 Trails_B_Errors 2.00 DKEFS_Inhibition 106.00 8.00 25 DKEFS_Inhibition_errors 1.00 12.00 75 DKEFS_Switching 156.00 3.00 1 DKEFS_Switching_errors 12.00 2.00 <1 Clox1 9.00 -1.13 13 DKEFS Fluency Category Switching 10.00 9.00 37 DKEFS Fluency Category Switching Accuracy 9.00 1 0.00 50 RBANS_FigureCopy 13.00 4.00 2 Emotional/Personality Functioning RS Descriptor GDS-15 2.00 WNL depression symptoms GAI 5.00 WNL anxiety symptoms DATA SUMMARY: Demographic factors, educational/o ccupational history, and test results indicate a gentleman with average premorbid intellectual abilities. The current neurocognitive profile evidenced difficu lty in multiple aspects of executive functioning, as well as learning of di screte verbal material and on one task of psychomotor processing speed. Perfor mances on tasks of memory, attention, language, visuospatial functioning, a nd most tasks of cognitive efficiency were within expec tations. The [place]'s current COGNITIVE functional status is difficult to estim ate in the context of physical and cognitive changes though per interview and rec ord review there appears to be evidence of increased functional dependence. They reported periods of low mood and anxiety on interview though he denied significant symptoms of depression and anxiety on self-report questionnaires. /ronni/ FILIBERTO LUCERO, PHD, LP, ABPP STAFF NEUROPSYCHOLIGST Signed: 04/09/2022 15:21 Receipt Acknowledged By: * AWAITING SIGNATURE * BILL GUNTER
--- OUTSIDE RECORDS SUMMARY | 2022-05-01 10:27 | XMS_ITS | Encounter Summary ---
:1935 Author Organization [facility] Address [address] [place] [id number] Support Name Relationship Address Phone NATHANIEL LORENZO Unavailable [id number] [place] [address] NATHANIEL LORENZO Unavailable [address] [place] [address] ARACELI MARSHALL Unavailable [address] [place] [address] ARACELI MARSHALL Unavailable [address] [place] [address] Insurance Providers: All historical and current Section [...] [place]ales [place] MED[place]ARE M[place] Aug 19, [id number] Kristel [facility] (WNR) ADVANTAGE (WNR) 2016 8 [id number] [phone] [facility] 1 [place] MEDICARE MCR Aug 19, [id number] Kristel [facility] (WNR) ADVANTAGE (WNR) 2016 8 [id number] [phone] [facility] 1 Selected Encounter This section includes the information on record at ID for the Encounter. Date/Time Encounter Type Encounter Description Reason Provider Source Apr 02, 2022 03:24 Outpatient Encounter CLINICAL PHARMACY PM IHE Encounter Template Text not used by ID Plan of Treatment: Future Appointments (+ 6 months) and Future Tests (+/- 45 days) The Plan of Treatment section includes future care activities for the [facility] This section includes future appointments and future orders which are active, pending orscheduled.Future Appointments This section includes appointments that were scheduled to occur 6 months from the date of the Encounter, up to a maximum of 20 appointments. The data comes from all [facility]. Appointment Date/Time Appointment Type Appointment Facili ty Name Apr 26, 2022 10:00 AM AMBULATORY - PSYCHIATRY [facility] Apr 30, 2022 08:00 AM AMBULATORY - MEDICINE [facility] Apr 30, 2022 09:15 AM AMBULATORY - NONE [facility] May 11, 2022 06:15 PM AMBULATORY - NONE [facility] Jul 23, 2022 08:00 AM AMBULATORY - NEUROLOGY [facility] Active, Pending, and Scheduled Orders This section includes a listing of several types of active, pending, and scheduled orders, including clinic medications orders, diagnostic test orders, procedure orders and consult orders; where the start date of the order is 45 days before the date of the Encounter or 45 days after the date of the Encounter. The data comes from all [facility]. Test Date/Time Test Type Test Details Facility Name Apr 30, 2022 08:21 Laboratory - CULTURE & SUSCEPTIBILITY [facility] AM Microbiology Order URINE WC Apr 30, 2022 08:21 Laboratory - Chemistry URINALYSIS URINE WC ON CE [facility] AM Order May 11, 2022 06:15 Imaging - Magnetic MRI-BRAIN (P) [facility] PM Resonance Imaging (MRI) Order Lab Results: [...] Interpretation Reference Range Comment Apr 30, 2022 09:[address] [facility] CBC Specim en Type: BLOOD No comment enter ed. Ordering Provid er: BILL ROONEY Report Released Date/Time: Apr 30, 2022 08:21 AM Reporting Lab: [facility] [address] [facility] [address] Performing Lab: [facility] [address] [facility] [address] WBC 10.40 4.0-11.0 RBC 3.96 L 4.6-6.2 HGB 12.3 L 13.5-17.9 HCT 37.8 L 41-54 MCV 95.5 80-100 MCH 31.1 27-33 MCHC 32.5 32.0-37.5 PLT 286 150-400 MPV 10.1 7.4-10.4 RDW 14.6 H 11.5-14.5 Apr 30, 2022 [facility] BASIC METABOLIC Specimen Typ e: PLASMA 09:17 AM PANEL+MG No comment enter ed. Ordering Provid er: BILL ROONEY Report Released Date/Time: Apr 30, 2022 08:21 AM Reporting Lab: [facility] [address] Performing Lab: [facility] [address] CREATININE 1.2 0.7-1.2 UREA NITROGEN 26 8-26 GLUCOSE 140 H 70-100 SODIUM 138 136-145 POTASSIUM 3.8 3.5-5.1 CHLORIDE 107 98-107 CO2 20 L 22-29 CALCIUM 9.4 8.4-10.2 MAGNESIUM 1.7 1.6-2.6 ANION GAP 11 5-15 CREAT EGFR(CKD-EPI) 59 L >60 Apr 02, 2022 02:[address] [facility] B 12 Specim en Type: SERUM No comment enter ed. Ordering Provid er: MADISON GROVER Report Released Date/Time: Apr 02, 2022 02:05 PM Reporting Lab: [facility] [address] [facility] [address] Performing Lab: [facility] [address] [facility] [address] B 12 [phone] Apr 02, 2022 [facility] LIVER FUNCTION TESTS Specime n Type: PLASMA 02:37 PM No comment enter ed. Ordering Provid er: MADISON GROVER Report Released Date/Time: Apr 02, 2022 02:05 PM Reporting Lab: [facility] [address] [facility] [address] Performing Lab: [facility] [address] BILIRUBIN, TOTAL 0.5 0.2-1.2 ALKALINE PHOSPHATASE 108 40-150 ALT/SGPT 24 <55 AST/SGOT 18 <34 GAMMA GTP 34 <64 Apr 02, 2022 02:[address] [facility] AMMONIA Specim en Type: PLASMA No comment enter ed. Ordering Provid er: MADISON GROVER Report Released Date/Time: Apr 02, 2022 02:05 PM Reporting Lab: [facility] [address] [facility] [address] Performing Lab: [facility] [address] [facility] [address] AMMONIA <14 <72 Apr 02, 2022 [facility] METHYLMA ACID, [place] Specime n Type: SERUM 02:37 PM Comment: This t est was developed and its analytical performance characteristics have been determined by [facility] [place], [place]. It has not been cleared or approved by the U.S . Food and Drug Administration. This assay has been validated pursuant to the CLIA regulations and is used for clinical purposes. Test Performed by [facility], [employer] [facility], [address] [place] [address] Domenic Miller M.D., Ph.D., Director of Laboratories , CLIA [id number] Ordering Provid er: MADISON GROVER Report Released Date/Time: Apr 02, 2022 04:37 PM Reporting Lab: [facility] ONE [facility] [place] [address] [facility] [address] Performing Lab: [address] METHYLMA ACID, [place] 406 [phone] Vital Signs: All taken on the encounter date This section contains inpatient and outpatient Vital Signs collected on the date of the Encounter. Date/Time Temperature Pulse Blood Respiratory SP02 Pain Height Weight Edvin dy Source Pressure Rate Mass Index Apr 02 123/70 18 /min 93 % 3 [place] 2021 01:22 /min mm[Hg] [facility] Social History: Smoking Status (Most current) and [...] 02, 2022 09:30 AM [place]-TOBACCO NEVER USED [place] [facility] Tobacco Use History This section includes a history of the smoking, or tobacco- related health factors, that were collected on or before the date of the Encounter. The data comes from the ID facility where the Encounter took place. Date/Time Smoking Status/Tobacco Use Comment Xavi carolinejocelyne Mar 22, 2021 07:45 AM ID-TOBACCO NEVER USED [place] [facility] Oct 02, 2019 10:02 AM VA-TOBACCO NEVER USED [place] [facility] May 21, 2018 09:05 AM VA-TOBACCO NEVER USED [place] [facility] December 25, 2017 06:14 PM INPT NO [...] this document. The data comes from all [facility]. Date Advance Directives Provider Source Apr 18, 2018 ADVANCE DIRECTIVE LARISSA SIGALA [facility] Apr 18, 2018 ADVANCE DIRECTIVE DISCUSSION LARISSA SIGALA [facility] December 23, 2017 CLINICAL WARNING FARHAT SCHMID [facility] May 11, 2003 ADVANCE DIRECT[address] BERT [address]ILLAS [facility] Radiology Reports: +/- 30 days of [...] the Encounter. The data comes from all ID treatment facilities. Date/Time Radiology Report Provider Source Mar 12, 2022 09:03 CT HEAD (P): BRONSON SHEPPARD IS ID [facility] AM LUISANA EDDY [id number] -[id number] M Exm Date: MAR 12, 2022@09:03 Req Phys: BILL ROONEY Pat Loc: [facility] PACT IRIS WH 4D (Req'g Loc Img Loc: CT IMAGING Service: Unknown (Case [id number] COMPLETE) CT HEAD/BRAIN W/O CONTRAST ( CT Detailed) CPT:92996 Reason for Study: worsening cognition Clinical History: [place] IS NOT under investigation for COVID-19 or is COVID-19 negative Defer to radiologist for final CT protocol. Responsible provider name and phone number to n otify for critical findings if other than user placing the order a nd pager listed below: User placing orders pager: [phone] LAST 3: Collection DT Specimen Test Name [...] ESTIMATED GFR(eGF 44 L Ref: >=60 Allergies: ([place] only) SIMVASTATIN (Feb 29, 2004) CEPHALEXIN (Mar 01, 2004) Report Status: Verified Date Reported: MAR 12, 2022 Date Verified: MAR 12, 2022 Taco Maker E-Sig:/ES/BRONSON SHEPPARD MD Report: NONCONTRAST CT OF THE HEAD 03/12/2022 9:03 AM INDICATION: Worsening cognition TECHNIQUE: Non- enhanced axial images of the brain were obtained from the base of the skull to the vertex. COMPARISON: 12/23/2017 DOSE: DLP 856 mGy*cm FINDINGS: Mvef-py-pbuwfusx volume loss, age meghan ropriate. Mild degree [...] Encounter. Date/Time Encounter Note(s) Provider Source Apr 02, 2022 03:24 PM EDUCATION NOTE: ANTHONY GALEANO [facility] LOCAL TITLE: EDUCATION MEDICATION INSTRUCTION STANDARD TITLE: EDUCATION NOTE DATE OF NOTE: APR 02, 2022@15:24 ENTRY DATE: APR 02, 2022@15:24:51 AUTHOR: ANTHONY GALEANO EXP COSIGNER: URGENCY: STATUS: COMPLETED EDUCATION MEDICATION INSTRUCTION Has ADDEND A MEDICATION EDUCATION PARTICIPANTS: Patient & son (Nathaniel [phone]) TEACHING STRATEGY: Face to Face READINESS TO LEARN: No barriers identified LEARNING NEEDS/OBJECTIVES Participant(s) indicates readiness to learn and has been instructed on indications, side effects, and di rections for use. Participant(s) will receive medication informat ion sheets for medications filled. Education included discussion of the following n ew medication(s): CYANOCOBALAMIN INJECTION SYRINGE PATIENT/FAMILY RESPONSE (OUTCOME): Verbalizes critical information about the topic FOLLOW-UP RECOMMENDED: Dr. Grover-please let alice rust's son (Nathaniel [phone]) know if patient should continue CYANOCOBALAMIN TABLET 200MCG QDAY while on injection. /yvette GALEANO PharmD, [facility] PHARMACIST Signed: 04/02/2022 15:32 Receipt Acknowledged By: 04/02/2022 15:35 /ronni/ MADISON GROVER MD Professor 04/02/2022 ADDENDUM STATUS: COMPLETED Spoke with patient's son (Lesa marquez) to stop cyanocobalamin tablet per Dr. Grover. /yvette GALEANO PharmD, [facility] PHARMACIST Signed: 04/02/2022 15:41
--- OUTSIDE RECORDS SUMMARY | 2022-05-01 10:27 | XMS_ITS | Encounter Summary ---
:1935 Author Organization [facility] rs Address [address] [place] [id number] Support Name Relationship Address Phone WAED LORENZO Unavailable [address] [place] [address] WADE LORENZO Unavailable [address] [place] [address] ARACELI MARSHALL Unavailable [address] [place] [address] MARILIA MARSHALLA Unavailable [address] [place] [address] Insurance Providers: All historical and current Section [...] [place] M[place] Aug 19, [id number] Kristel EDDY [facility] (WNR) ADVANTAGE (WNR) 2017 8 [id number] [phone] [facility] [place] MED[place]ARE MCR Aug [id number] Kristel [facility] (WNR) 2016 8 [id number] [phone] [facility] Selected Encounter This section includes the information on record at [place] for the Encounter. Date/Time Encounter Type Encounter Reason Provider Source Description Apr 02, 2022 OFFICE O/P NEW NEUROLOGY ICD-10-CM E11.9 VIV SOL 01:30 PM MOD 45-59 MIN Type 2 diabetes CYNTHIA O mellitus without complications with Provider Comments: Type 2 diabetes mellitus ([facility] [id number]) IHE Encounter Template Text not used by [facility] Assessments - Encounter Diagnoses This section includes the primary and secondary diagnoses documented for the Encounter. Date/Time Primary/Secondary Diagnosis Name Provider Source Diagnosis Apr 02, 2022 PRIMARY Type [address] [facility] 01:52 PM mellitus without CYNTHIA O [facility] complications Plan of Treatment: Future Appointments (+ 6 months) and Future Tests (+/- 45 days) The Plan of Treatment section includes future care activities for the patient from all [place] [facility]. This section includes future appointments and future orders which are active, pending orscheduled.Future Appointments This section includes appointments that were scheduled to occur 6 months from the date of the Encounter, up to a maximum of 20 appointments. The data comes from all [place] treatment facilities. Appointment Date/Time Appointment Type Appointment Facili ty Name Apr 26, 2022 10:00 AM AMBULATORY - PSYCHIATRY [facility] Apr 30, 2022 08:00 AM AMBULATORY - MEDICINE [facility] Apr 30, 2022 09:15 AM AMBULATORY - NONE [facility] May 11, 2022 06:15 PM AMBULATORY - NONE [facility] Jul 23, 2022 08:00 AM AMBULATORY - NEUROLOGY [facility] Active, Pending, and Scheduled Orders This section includes a listing of several types of active, pending, and scheduled orders, including clinic medications orders, diagnostic test orders, procedure orders and consult orders; where the start date of the order is 45 days before the date of the Encounter or 45 days after the date of the Encounter. The data comes from all [place] treatment facilities. Test Date/Time Test Type Test Details Facility Name Apr 30, 2022 08:21 Laboratory - Chemistry URINALYSIS URINE WC ON CE [facility] AM Order Apr 30, 2022 08:21 Laboratory - CULTURE & SUSCEPTIBILITY [facility] AM Microbiology Order URINE WC May 11, 2022 06:15 Imaging - Magnetic MRI-BRAIN (P) [facility] PM Resonance Imaging (MRI) Order Lab Results: [...] Range Comment Apr 30, 2022 09:17 AM [facility] CBC Specim en Type: BLOOD No comment enter ed. Ordering Provid er: BILL ROONEY Report Released Date/Time: Apr 30, 2022 08:21 AM Reporting Lab: [facility] [address] [facility] [address] Performing Lab: [facility] [address] WBC 10.40 4.0-11.0 RBC 3.96 L 4.6-6.2 HGB 12.3 L 13.5-17.9 HCT 37.8 L 41-54 MCV 95.5 80-100 MCH 31.1 27-33 MCHC 32.5 32.0-37.5 PLT 286 150-400 MPV 10.1 7.4-10.4 RDW 14.6 H 11.5-14.5 Apr 30, 2022 [facility] BASIC METABOLIC Specimen Typ e: PLASMA 09:17 AM PANEL+MG No comment enter ed. Ordering Provid er: BILL ROONEY Report Released Date/Time: Apr 30, 2022 08:21 AM Reporting Lab: [facility] [address] [facility] [address] Performing Lab: [facility] [address] [facility] [address] CREATININE 1.2 0.7-1.2 UREA NITROGEN 26 8-26 GLUCOSE 140 H 70-100 SODIUM 138 136-145 POTASSIUM 3.8 3.5-5.1 CHLORIDE 107 98-107 CO2 20 L 22-29 CALCIUM 9.4 8.4-10.2 MAGNESIUM 1.7 1.6-2.6 ANION GAP 11 5-15 CREAT EGFR(CKD-EPI) 59 L >60 Apr 02, 2022 02:37 PM [facility] B 12 Specim en Type: SERUM No comment enter ed. Ordering Provid er: MADISON SOL Report Released Date/Time: Apr 02, 2022 02:05 PM Reporting Lab: [facility] [address] [facility] [address] Performing Lab: [facility] [address] [facility] [address] B 12 [phone] Apr 02, 2022 02:37 PM [facility] AMMONIA Specim en Type: PLASMA No comment enter ed. Ordering Provid er: MADISON SOL O Report Released Date/Time: Apr 02, 2022 02:05 PM Reporting Lab: [facility] [address] [facility] [address] Performing Lab: [facility] [address] [facility] [address] AMMONIA <14 <72 Apr 02, 2022 [facility] LIVER FUNCTION TESTS Specime n Type: PLASMA 02:37 PM No comment enter ed. Ordering Provid er: MADISON SOL O Report Released Date/Time: Apr 02, 2022 02:05 PM Reporting Lab: [facility] [address] [facility] [address] Performing Lab: [facility] D[facility] [address] BILIRUBIN, TOTAL 0.5 0.2-1.2 ALKALINE PHOSPHATASE 108 40-150 ALT/SGPT 24 <55 AST/SGOT 18 <34 GAMMA GTP 34 <64 Apr 02, 2022 [facility] METHYLMA ACID, [facility] Specime n Type: SERUM 02:37 PM Comment: This t est was developed and its analytical performance characteristics have been determined by [facility] [place]. It has not been cleared or approved by the U.S . Food and Drug Administration. This assay has been validated pursuant to the CLIA regulations and is used for clinical purposes. Test Performed by [facility], [facility], [address] [place] [address] Domenic Miller M.D., Ph.D., Director of Laboratories , CLIA [id number] Ordering Provid er: KRISTISHEONELIAJOSSELIN O Report Released Date/Time: Apr 02, 2022 04:37 PM Reporting Lab: [facility] [address] [facility] [address] Performing Lab: [address] METHYLMA ACID, [place] 406 H 87-318 Vital Signs: All taken on the encounter date This section contains inpatient and outpatient Vital Signs collected on the date of the Encounter. Date/Time Temperature Pulse Blood Respiratory SP02 Pain Height Weight Edvin dy Source Pressure Rate Mass Index Apr 02 123/70 18 /min 93 % 3 [place] 2021 01:22 /min mm[Hg] [facility] Social History: Smoking Status (Most current) [...] 09:30 AM [place]-TOBACCO NEVER USED [place] [facility] Tobacco Use History This section includes a history of the smoking, or tobacco- related health factors, that were collected on or before the date of the Encounter. The data comes from the [place] facility where the Encounter took place. Date/Time Smoking Status/Tobacco Use Comment [facility] Mar 22, 2021 07:45 AM [place]-TOBACCO NEVER USED [place] [facility] Oct 02, 2019 10:02 AM VA-TOBACCO NEVER USED [place] [facility] May 21, 2018 09:05 AM VA-TOBACCO NEVER USED [place] [facility] December 25, 2017 06:14 PM INPT NO TOBACCO USE IN LAST 30 DAYS [facility] Oct 01, 2017 07:34 AM LIFETIME NON-TOBACCO USER [facility] Sep 28, 2016 08:44 AM LIFETIME NON-TOBACCO USER [facility] Oct 14, 2015 07:52 AM LIFETIME NON-TOBACCO USER [facility] Oct 11, 2014 07:59 AM LIFETIME NON-TOBACCO USER [facility] January 15, 2007 07:55 AM LIFETIME NON-TOBACCO USER [facility] Advance Directives: All historical and [...] The data comes from all [facility]. Date Advance Directives Provider Source Apr 18, 2018 ADVANCE DIRECTIVE LARISSA SIGALA [facility] Apr 18, 2018 ADVANCE DIRECTIVE DISCUSSION LARISSA SIGALA [facility] December 23, 2017 CLINICAL WARNING FARHAT SCHMID [facility] May 11, 2003 ADVANCE DIRECTIVE BERT CASILLAS [facility] Radiology Reports: +/- 30 days [...] the Encounter. The data comes from all [place] treatment facilities. Date/Time Radiology Report Provider Source Mar 12, 2022 09:03 CT HEAD (P): BRONSON SHEPPARD IS [facility] AM LUISANA EDDY [id number] -1935 M Exm Date: MAR 12, 2022@09:03 Req Phys: BILL ROONEY Pat Loc: [facility]SP PACT IRIS WH 4D (Req'g Loc Img Loc: CT IMAGING Service: Unknown (Case [id number] COMPLETE) CT HEAD/BRAIN W/O CONTRAST ( CT Detailed) CPT:27651 Reason for Study: worsening cognition Clinical History: [place] IS NOT under investigation for COVID-19 or is COVID-19 negative Defer to radiologist for final CT protocol. Responsible provider name and phone number to n otify for critical findings if other than user placing the order a nd pager listed below: User placing orders pager: [phone] LAST 3: Collection DT Specimen Test Name [...] ESTIMATED GFR(eGF 44 L Ref: >=60 Allergies: ([place] only) SIMVASTATIN (Feb 29, 2004) CEPHALEXIN (Mar 01, 2004) Report Status: Verified Date Reported: MAR 12, 2022 Date Verified: MAR 12, 2022 Python Java Developer E-Sig:/ES/BRONSON SHEPPARD MD Report: NONCONTRAST CT OF THE HEAD 03/12/2022 9:03 AM INDICATION: Worsening cognition TECHNIQUE: Non- enhanced axial images of the brain were obtained from the base of the skull to the vertex. COMPARISON: 12/23/2017 DOSE: DLP 856 mGy*cm FINDINGS: Orsb-sy-mjnlcyaj volume loss, age meghan ropriate. Mild degree [...] Encounter Note(s) Provider Source Apr 02, 2022 02:17 NEUROLOGY CONSULT: MADISON SOL [facility] LOCAL TITLE: NEUROLOGY CONSULT O STANDARD TITLE: NEUROLOGY CONSULT DATE OF NOTE: APR 02, 2022@14:17 ENTRY DATE: APR 02, 2022@14:17:24 AUTHOR: MADISON SOL EXP COSIGNER: URGENCY: STATUS: COMPLETED NEUROLOGY CONSULT Has ADDENDA LUISANA EDDY is a 86 ye ar old MALE was referred to the neurology clinic for evaluation of cognitive decline. Apparently he w as diagnosed with encephalopathy and was found to have prostatitis/urinary tract infection back in December/January 2022 he improved significantly with ant ibiotics however he has not returned to baseline. His work-up was ge nerally negative with the exception of low B12. His missile malonic acid was also high however the patient does have renal insufficiency with a creatinine of 1.4. Th e rest of work-up has been negative. He has completed neuropsychological te sting today. There was a question about tremor of the upper extremities a nd Parkinson's disease. He recently had a fall and is using a hard corset. He still walks but believes that his walking is slow. Active problems - Computerized Problem List is t he source for the followin. Type 2 diabetes mellitus (SNOMED CT [id number] ) 2. OBESITY, UNSP 3. Psoriasis * 4. Social and personal history finding - Lives alone. Has brother in [place]. Friends felipe breaux. 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 5. History of adenomatous polyp of colon - Last c-scope 05/09/15 at [place]. Two small polyp s. - 5 year follow up if appropriate. 6. Elevated PSA - follows with urology at [place] - with BPH on terazosin - February 2021: TURP at [place] 7. Chronic kidney disease stage 3 8. Diastolic heart failure - w/ HTN and dyslipidemia 9. Chronic atrial fibrillation - metoprolol and rivaroxaban 10. history of hospitalization - January 2021: Bacteremia secondary to urinary ou tflow obstruction from BPH - underwent a TURP at [place] February 2021 11. corns and calluses - followed by podiatry in the community in [facility] 12. Gout - on allopurinol Allergies: SIMVASTATIN (Feb 29, 2004) CEPHALEXIN (Mar 01, 2004) Active and Recently Outpatient Medicatio ns (including Supplies): Active Outpatient Medications Status 1) ACCU-CHEK GUIDE (GLUCOSE) TEST STRIP USE 1 ST RIP ACTIVE TWICE WEEKLY TO CHECK BLOOD SUGAR--USE WITHIN 3 MINUTES OF REMOVING FROM CONTAINER 2) CYANOCOBALAMIN 100MCG TAB TAKE TWO TABLETS BY MOUTH ACTIVE EVERY DAY 3) FERROUS SULFATE 325MG TAB TAKE ONE TABLET BY MOUTH ACTIVE EVERY DAY 4) FINASTERIDE 5MG TAB TAKE ONE TABLET BY MOUTH EVERY ACTIVE DAY FOR PROSTATE 5) GLIPIZIDE 5MG TAB TAKE ONE TABLET BY MOUTH ACTIVE FOR DIABETES -TAKE 30 MINUTES BEFORE MEAL 6) MELATONIN 3MG CAP/TAB TAKE 1 TABLET BY MOUTH AT ACTIVE BEDTIME 7) NYSTATIN 246269 UNT/GM CREAM APPLY THIN LAYER ACTIVE TOPICALLY TWICE A DAY NEEDED FOR FUNGAL INFECTION EXTERNAL USE ONLY SKIN FOLDS Pending Outpatient Medications Status 1) CYANOCOBALAMIN INJ,SOLN INJECT 1000MCG INTRAM USCULAR PENDING EVERY DAY FOR 7 DAYS, THEN INJECT 1000MCG EVERY WEEK FOR 28 DAYS, THEN INJECT 1000MCG EVERY Sat FOR 90 DAYS, THEN INJECT 1000MCG EVERY THREE MO NTHS Inactive Outpatient Medications Status 1) ALLOPURINOL 100MG TAB TAKE ONE TABLET BY MOUT H EVERY DAY 2) ATORVASTATIN CALCIUM 10MG TAB TAKE ONE-HALF T ABLET BY MOUTH EVERY DAY 3) ATORVASTATIN CALCIUM 10MG TAB TAKE ONE-HALF T ABLET BY DISCONTINUED MOUTH EVERY DAY (EDIT) 4) CHOLECALCIF 25MCG (D3-1,000UNIT) TAB TAKE 200 0UNIT BY MOUTH EVERY DAY FOR VITAMIN-D SUPPLEMENTATION. 5) FINASTERIDE 5MG TAB TAKE ONE TABLET BY MOUTH EVERY DISCONTINUED DAY FOR PROSTATE 6) FUROSEMIDE 20MG TAB TAKE ONE TABLET BY MOUTH EVERY DAY FOR LOWER EXTREMITY SWELLING; OKAY TO TAKE AN EXTRA DOSE DAILY NEEDEDFOR INCREASED SWELLIN G. 7) FUROSEMIDE 20MG TAB TAKE ONE TABLET BY MOUTH EVERY DISCONTINUED DAY FOR LOWER EXTREMITY SWELLING; OKAY TO TAKE AN (EDIT) EXTRA DOSE DAILY NEEDED FOR INCREASED SWELLI NG. 8) METFORMIN HCL 1000MG TAB TAKE ONE-HALF TABLET BY MOUTH TWO TIMES A DAY 9) METOPROLOL SUCCINATE 200MG SA TAB TAKE ONE-DONALD LF TABLET BY MOUTH EVERY DAY 10) PIOGLITAZONE HCL 30MG TAB TAKE ONE TABLET BY MOUTH EVERY MORNING FOR BLOOD SUGAR 11) RIVAROXABAN 20MG TAB TAKE ONE TABLET BY MOUT H EVERY EVENING WITH A MEAL TO PREVENT BLOOD CLOTS EXAM: VS: Temp: 97.1 F [36.2 C] (02/02/2022 09:21) BP: 123/70 (04/02/2022 13:22) Pulse:98 (04/02/2022 13:22) Resp: 18 (04/02/2022 13:22) Pain: 3 (04/02/2022 13:22) Weight: WEIGHTS IN LAST 6 MONTHS: 284.1 (FEB 02, 2022@09:21:12) Mr. Eddy answered questions appropriately. He was fully oriented in time place and person. Full cognitive testing was not performed however. Speech was normal without dysarthria or dysphagia. Cranial nerves examination was unremarkable. No tongue or mouth tremor. Upper e xtremity examination showed rest and positional tremor not particularly conf ined to the thumb. No asterixis. Noted to have Dupuytren's contracture s. Strength was 5/5 in the upper and lower extremities tone was unremarkabl e. No cogwheeling. Gait was slightly slow but not particularly shuffling. Do es hold his arms up but not consistent with hypokinesia as such. Sensory exa mination was unremarkable no distal shading. Reflexes were absent in the lowe r extremities. Romberg sign was borderline. Assessment and Plan: Episode of cognitive decline attributed to urinary tract infection with residual cognitive decline. Work-up has been negative wit h exception of low B12 with a high methyl malonic acid in the setting of renal failure. With a creatinine of 1.4. I will treat B12 deficiency properly wit h 1000 mcg intramuscularly daily for a week then weekly for a month and then monthly fo r 3 months and every 3 months thereafter as recommended. He is currently in a prison and I sent a handwritten prescription of B12 which his son and daughter will collect from the [place] pharmacy today. I will check for live r function test and ammonia as well. I will obtain MRI of the brain. He did have a CT s can which showed cerebral atrophy. We will await the interpretation of neur opsychological testing. I will see him back in the clinic after the MRI is done. /ronni/ MADISON SOL MD Professor Signed: 04/02/2022 14:26 04/10/2022 ADDENDUM STATUS: COMPLETED B12 level 234 slightly improved Malonic acid still high but improved from 800 to 400 /yvette SOL MD Professor Signed: 04/10/2022 10:06 Apr 02, 2022 01:51 NEUROLOGY ATTENDING NOTE: MADISON SOL [facility] PM LOCAL TITLE: NEUROLOGY CLINIC NOTE O STANDARD TITLE: NEUROLOGY ATTENDING NOTE DATE OF NOTE: APR 02, 2022@13:51 ENTRY DATE: APR 02, 2022@13:51:53 AUTHOR: MADISON SOL COSIGNER: URGENCY: STATUS: COMPLETED CYANOCOBALAMIN INJ,SOLN INJECT 1000MCG INTRAMUSCULAR EVERY DAY FOR 7 DAY S THEN INJECT 1000MCG INTRAMUSCULAR EVERY WEEK FOR 28 DAYS THEN INJECT 1000MCG INTRAMUSCULAR EVERY MONTH FOR 90 DAYS THEN INJECT 1000MCG INTRAMUSCU LAR EVERY THREE MONTHS Quantity: 30 Refills: 3 Activity: 04/02/2022 13:50 New Order entered by ONELIA SOL (PHYSICIAN) Order Text: CYANOCOBALAMIN INJ,SOLN INJECT 1000MCG INTRAMUSCULAR EVERY DAY FOR 7 DA YS THEN INJECT 1000MCG INTRAMUSCULAR EVERY WEEK FOR 28 DAYS THEN INJEC T 1000MCG INTRAMUSCULAR EVERY MONTH FOR 90 DAYS THEN INJECT 1000MCG INTRAMUSC ULAR EVERY THREE MONTHS Quantity: 30 Refills: 3 Nature of Order: ELECTRONICALLY ENTERED Elec Signature: MADISON SOL (PHYSICIAN ) on 04/02/2022 13:51 Current Data: Treating Specialty: Ordering Location: [facility] MIROSLAVA SOL Start Date/Time: Stop Date/Time: Current Status: PENDING Orders that have been placed but not yet accept ed by the service filling the order. e.g., Pharmacy orders awaiti ng verification, Lab orders awaiting collection. Order #[id number] Order: Medication: CYANOCOBALAMIN INJ,SOLN Instructions: 1000MCG INTRAMUSCULAR QDAY 7 DAYS THEN 1000MCG INTRAMUSCULAR QW 28 DAYS THEN 1000MCG INTRAMUSCULAR QMONTH 90 DAYS THEN 1000MCG INTRAMUSCULAR [id number] Text: INJECT 1000MCG INTRAMUSCULAR EVERY DAY FOR 7 DA YS THEN INJECT 1000MCG INTRAMUSCULAR EVERY WEEK FOR 28 DAYS THEN INJEC T 1000MCG INTRAMUSCULAR EVERY MONTH FOR 90 DAYS THEN INJECT 1000MCG INT RAMUSCULAR EVERY THREE MONTHS Days Supply: 90 Quantity: 30 Refills: 3 Appeals Board Referee: MAIL Priority: ROUTINE Comments: Refills Remainin /ronni/ MADISON SOL MD Professor Signed: 04/02/2022 13:52 Apr 02, 2022 01:23 NEUROLOGY NURSING OUTPATIENT NOTE: HODAN WARNER [facility] PM LOCAL TITLE: NEUROLOGY CLINIC NURSING NOTE STANDARD TITLE: NEUROLOGY NURSING OUTPATIENT NOT E DATE OF NOTE: APR 02, 2022@13:23 ENTRY DATE: APR 02, 2022@13:23:50 AUTHOR: LUISANA WARNER COSIGNER: URGENCY: STATUS: COMPLETED Neurology Nursing Note Allergies: SIMVASTATIN (Feb 29, 2004) CEPHALEXIN (Mar 01, 2004) Reason for Visit: Consult [facility] Medication Reconciliation Medication list has been reviewed with patient and accuracy verified. VITAL SIGNS Patient Sex: MALE Temp: 97.1 F [36.2 C] (02/02/2022 09:21) Pulse: 98 (04/02/2022 13:22) BP: 123/70 (04/02/2022 13:22) BP Sitting: BP Standing: BP Laying: Resp: 18 (04/02/2022 13:22) Height: 73.5 in [186.7 cm] (09/20/2021 07:38) Weight: 284.1 lb [128.87 kg] (02/02/2022 09:21) Pain: 3 (04/02/2022 13:22) Pain Screening: PAIN INTENSITY (Patient pain rating. 0 = no best n; 10 = worst pain) 3 Location: back /es/ LUISANA WARNER LPN CLINICAL LICENSED PRACTICAL NURSE Signed: 04/02/2022 13:25
--- OUTSIDE RECORDS SUMMARY | 2022-05-01 10:28 | XMS_ITS | Encounter Summary ---
:1935 Author Organization [facility] Address [address] [place] [address] Support Name Relationship Address Phone WADE LORENZO Unavailable [address] [place] [address] WADE LORENZO Unavailable [address] [place] [address] ARACELI MARSHALL Unavailable [address] [place] [address] GOGEORGE ARACELI Unavailable [address] [place] [address] Insurance Providers: All historical and current Section [...] Bales [place] MCR Aug 19, [id number] Kristel EDDY [facility] (WNR) ADVANTAGE (WNR) 2017 8 [id number] [phone] [facility] 1 [place] MEDICARE MCR Aug 19, [id number] Kristel EDDY [facility] (WNR) ADVANTAGE (WNR) 2016 8 [id number] [phone] [facility] 1 Selected Encounter This section includes the information on record at [place] for the Encounter. Date/Time Encounter Type Encounter Reason Provider Source Description Apr 25, 2022 10:10 Outpatient ADMIN PAT ACTIVTIES HEATHER CADENA AM Encounter (MASNONCT) A E Encounter Template Text not used by [place] Plan of Treatment: Future Appointments (+ 6 months) and Future Tests (+/- 45 days) The Plan of Treatment section includes future care activities for the patient from all [place] [facility] This section includes future appointments and future orders which are active, pending orscheduled.Future Appointments This section includes appointments that were scheduled to occur 6 months from the date of the Encounter, up to a maximum of 20 appointments. The data comes from all [facility]. Appointment Date/Time Appointment Type Appointment Facili ty Name Apr 26, 2022 10:00 AM AMBULATORY - PSYCHIATRY [facility] Apr 30, 2022 08:00 AM AMBULATORY - MEDICINE [facility] Apr 30, 2022 09:15 AM AMBULATORY - NONE [facility] May 11, 2022 06:15 PM AMBULATORY - NONE [facility] Jul 23, 2022 08:00 AM AMBULATORY - NEUROLOGY [facility] Active, Pending, and Scheduled Orders This section includes a listing of several types of active, pending, and scheduled orders, including clinic medications orders, diagnostic test orders, procedure orders and consult orders; where the start date of the order is 45 days before the date of the Encounter or 45 days after the date of the Encounter. The data comes from all [facility]. Test Date/Time Test Type Test Details Facility Name Apr 30, 2022 08:21 Laboratory - Chemistry URINALYSIS URINE WC ON CE [facility] AM Order Apr 30, 2022 08:21 Laboratory - CULTURE & SUSCEPTIBILITY [facility] AM Microbiology Order URINE WC May 11, 2022 06:15 Imaging - Magnetic [facility] PM Resonance Imaging (MRI) Order Lab Results: +/- 30 days of the encounter This section includes the Chemistry and Hematology Lab Results on record with [place] for the patient. Radiology Reports and Pathology Reports are provided separately, in subsequent sections.Lab Results This section contains the Chemistry/Hematology Results that were resulted 30 days before or 30 daysafter the date of the Encounter. Date/Time Source Result Type Result - Unit Interpretation Reference Range Comment Apr 30, 2022 [facility] BASIC METABOLIC Specimen Typ e: PLASMA 09:17 AM PANEL+MG No comment enter ed. Ordering Provid er: BILL ROONEY Report Released Date/Time: Apr 30, 2022 08:21 AM Reporting Lab: [facility] [address] [facility] [address] Performing Lab: [facility] [address] [facility] [address] CREATININE 1.2 0.7-1.2 UREA NITROGEN 26 8-26 GLUCOSE 140 H 70-100 SODIUM 138 136-145 POTASSIUM 3.8 3.5-5.1 CHLORIDE 107 98-107 CO2 20 L 22-29 CALCIUM 9.4 8.4-10.2 MAGNESIUM 1.7 1.6-2.6 ANION GAP 11 5-15 CREAT EGFR(CKD-EPI) 59 L >60 Apr 30, 2022 09:17 AM [facility] CBC Specim en Type: BLOOD No comment enter ed. Ordering Provid er: BILL ROONEY Report Released Date/Time: Apr 30, 2022 08:21 AM Reporting Lab: [facility] [address] Performing Lab: [facility] [address] WBC 10.40 4.0-11.0 RBC 3.96 L 4.6-6.2 HGB 12.3 L 13.5-17.9 HCT 37.8 L 41-54 MCV 95.5 80-100 MCH 31.1 27-33 MCHC 32.5 32.0-37.5 PLT 286 150-400 MPV 10.1 7.4-10.4 RDW 14.6 H 11.5-14.5 Apr 02, 2022 02:37 PM [facility] B 12 Specim en Type: SERUM No comment enter ed. Ordering Provid er: MADISON SOL Report Released Date/Time: Apr 02, 2022 02:05 PM Reporting Lab: [facility] [address] Performing Lab: [facility] [address] [facility] [address] B [phone] Apr 02, 2022 02:37 PM [facility] AMMONIA Specim en Type: PLASMA No comment enter ed. Ordering Provid er: MADISON SOL Report Released Date/Time: Apr 02, 2022 02:05 PM Reporting Lab: [facility] [address] [facility] [address] Performing Lab: [facility] [address] AMMONIA <14 <72 Apr 02, 2022 [facility] LIVER FUNCTION TESTS Specime n Type: PLASMA 02:37 PM No comment enter ed. Ordering Provid er: MADISON SOL Report Released Date/Time: Apr 02, 2022 02:05 PM Reporting Lab: [facility] [address] [facility] [address] Performing Lab: [facility] [address] [facility] [address] BILIRUBIN, TOTAL 0.5 0.2-1.2 ALKALINE PHOSPHATASE 108 40-150 ALT/SGPT 24 <55 AST/SGOT 18 <34 GAMMA GTP 34 <64 Apr 02, 2022 [facility] METHYLMA ACID, [place] Specime n Type: SERUM 02:37 PM Comment: This t est was developed and its analytical performance characteristics have been determined by [facility] [place], [place]. It has not been cleared or approved by the U.S . Food and Drug Administration. This assay has been validated pursuant to the CLIA regulations and is used for clinical purposes. Test Performed by [facility], [employer] [facility], [address] [place] [address] Domenic Miller M.D., Ph.D., Director of Laboratories , CLIA [id number] Ordering Provid er: MADISON SOL Report Released Date/Time: Apr 02, 2022 04:37 PM Reporting Lab: [facility] [address] [facility] [address] Performing Lab: [address] METHYLMA ACID, [place] [phone] Social History: Smoking Status (Most current) and Tobacco Use (All prior to encounter date) This section includes the most current, and the historical, smoking and tobacco-related health factors from the [facility] where the Encounter took place.Current Smoking Status This section includes the most current smoking, or tobacco-related health factor, from the [facility] where the Encounter took place. Date/Time Current Smoking Status Comment Facility Feb 02, 2022 09:30 AM [place]-TOBACCO NEVER USED [facility] Tobacco Use History This section includes a history of the smoking, or tobacco- related health factors, that were collected on or before the date of the Encounter. The data comes from the [place] facility where the Encounter took place. Date/Time Smoking Status/Tobacco Use Comment Facil ity Mar 22, 2021 07:45 AM [place]-TOBACCO NEVER USED [place] [facility] Oct 02, 2019 10:02 AM VA-TOBACCO NEVER USED [place] [facility] May 21, 2018 09:05 AM VA-TOBACCO NEVER USED [place] [facility] December 25, 2017 06:14 PM INPT NO TOBACCO USE IN LAST 30 DAYS [facility] Oct 01, 2017 07:34 AM LIFETIME NON-TOBACCO USER [facility] Sep 28, 2016 08:44 AM LIFETIME NON-TOBACCO USER [facility] Oct 14, 2015 07:52 AM LIFETIME NON-TOBACCO USER [facility] Oct 11, 2014 07:59 AM LIFETIME NON-TOBACCO USER [facility] January 15, 2007 07:55 AM LIFETIME NON-TOBACCO USER [facility] Advance Directives: All historical and current Section Date Range: From patient's date of to the date document was created. This section includes ALL of a patient's completed or amended [place] Advance and Rescinded Directives. The entries below indicate that a directive exists for the patient, but an actual copy is not included with this document. The data comes from all [place] facilities. Date Advance Directives Provider Source Apr 18, 2018 ADVANCE DIRECTIVE LARISSA SIGALA [facility] Apr 18, 2018 ADVANCE DIRECTIVE DISCUSSION RAE SIGALAN [facility] December 23, 2017 CLINICAL WARNING [facility] May 11, 2003 ADVANCE DIRECTIVE BERT CASILLAS [facility] Encounter Notes: All associated encounter notes This section contains the clinical notes associated to the Encounter. Date/Time Encounter Note(s) Provider Source Apr 25, 2022 10:10 AM TELEHEALTH NOTE: HEATHER CARVER [facility] LOCAL TITLE: TELEHEALTH TECHNOLOGY SCREENING (T TS) STANDARD TITLE: TELEHEALTH NOTE DATE OF NOTE: APR 25, 2022@10:10 ENTRY DATE: APR 25, 2022@10:10:50 AUTHOR: HEATHER CARVER EXP COSIGNER: URGENCY: STATUS: COMPLETED agrees to [place] Video Connect (VVC) and has capability to complete a VVC visit. VVC capable, but declined test call and/o r will perform a test call independently. Device: Desktop/Laptop /es/ HEATHER CARVER [facility] [address] [place] [address] Telehealth Senior Counsel Commercial Signed: 04/25/2022 10:11
--- OUTSIDE RECORDS SUMMARY | 2022-05-01 10:29 | XMS_ITS | Encounter Summary ---
:1935 Author Organization [facility] Address [address] [place] [address] Support Name Relationship Address Phone NATHANIEL LORENZO Unavailable [address] [place] [address] NATHANIEL LORENZO Unavailable [address] [place] [address] ARACELI MARSHALL Unavailable [address] [place] [address] ARACELI MARSHALL Unavailable [address] [place] [address] Insurance Providers: All historical and current Section [...] Bales [place] Aug 19, [id number] Kristel EDDY [facility] (WNR) ADVANTAGE (WNR) 2017 8 [id number] [phone] [facility] 1 [place] MEDICARE MCR Aug 19, [id number] Kristel EDDY [facility] (WNR) ADVANTAGE (WNR) 2016 8 [id number] [phone] [facility] 1 Selected Encounter This section includes the information on record at [place] for the Encounter. Date/Time Encounter Type Encounter Reason Provider Source Description Apr 27, 2022 HC PRO PHONE TELEPHONE/ANCILLA ICD-10-CM Z65.8 LAKESHA KIRK 12:22 PM CALL 5-10 MIN RY Oth problems A related to psychosocial circumstances with Provider Comments: Other specified Problems Related to Psychosocial Circumstances IHE Encounter Template Text not used by [place] Assessments - Encounter Diagnoses This section includes the primary and secondary diagnoses documented for the Encounter. Date/Time Primary/Secondary Diagnosis Name Provider Source Diagnosis Apr 27, 2022 PRIMARY Oth problems DEBBIE KIRK [facility] 12:22 PM related to A [facility] psychosocial circumstances Plan of Treatment: Future Appointments (+ 6 months) and Future Tests (+/- 45 days) The Plan of Treatment section includes future care activities for the patient from all [place] [facility]. This section includes future appointments and future orders which are active, pending orscheduled.Future Appointments This section includes appointments that were scheduled to occur 6 months from the date of the Encounter, up to a maximum of 20 appointments. The data comes from all [place] treatment facilities. Appointment Date/Time Appointment Type Appointment Facili ty Name Apr 30, 2022 08:00 AM AMBULATORY - MEDICINE [facility] CS Apr 30, 2022 09:15 AM AMBULATORY - NONE [facility] May 11, 2022 06:15 PM AMBULATORY - NONE [facility] Jul 23, 2022 08:00 AM AMBULATORY - NEUROLOGY [facility] Active, Pending, and Scheduled Orders [...] - Chemistry URINALYSIS URINE WC ON CE [facility] AM Order Apr 30, 2022 08:21 Laboratory - [facility] & [facility]USCEPT[facility] AM Microbiology Order URINE WC May 11, 2022 06:15 Imaging - [facility] PM Resonance Imaging (MRI) Order Lab Results: +/- 30 days of the encounter This section includes the Chemistry and Hematology Lab Results on record with [place] for the patient. Radiology Reports and Pathology Reports are provided separately, in subsequent sections.Lab Results This section contains the Chemistry/Hematology Results that were resulted 30 days before or 30 daysafter the date of the Encounter. Date/Time Source Result Type Result - Unit Interpretation Reference Range Comment Apr 30, 2022 09:17 AM [facility] CBC Specim en Type: BLOOD No comment enter ed. Ordering Provid er: BILL ROONEY Report Released Date/Time: Apr 30, 2022 08:21 AM Reporting Lab: [facility] [address] Performing Lab: [facility] [address] WBC 10.40 4.0-11.0 RBC 3.96 L 4.6-6.2 HGB 12.3 L 13.5-17.9 HCT 37.8 L 41-54 MCV 95.5 80-100 MCH 31.1 27-33 MCHC 32.5 32.0-37.5 PLT 286 150-400 MPV 10.1 7.4-10.4 RDW 14.6 H 11.5-14.5 Apr 30, 2022 [facility] BASIC METABOLIC Specimen Typ e: PLASMA 09:17 AM PANEL+MG No comment enter ed. Ordering Provid er: BILL ROONEY Report Released Date/Time: Apr 30, 2022 08:21 AM Reporting Lab: [facility] [address] Performing Lab: [facility] [address] CREATININE 1.2 0.7-1.2 UREA NITROGEN 26 8-26 GLUCOSE 140 H 70-100 SODIUM 138 136-145 POTASSIUM 3.8 3.5-5.1 CHLORIDE 107 98-107 CO2 20 L 22-29 CALCIUM 9.4 8.4-10.2 MAGNESIUM 1.7 1.6-2.6 ANION GAP 11 5-15 CREAT EGFR(CKD-EPI) 59 L >60 Apr 02, 2022 02:37 PM [facility] B 12 Specim en Type: SERUM No comment enter ed. Ordering Provid er: MADISON SOL Report Released Date/Time: Apr 02, 2022 02:05 PM Reporting Lab: [facility] [address] Performing Lab: [facility] [address] B 12 [phone] Apr 02, 2022 02:37 PM [facility] AMMONIA Specim en Type: PLASMA No comment enter ed. Ordering Provid er: MADISON SOL Report Released Date/Time: Apr 02, 2022 02:05 PM Reporting Lab: [facility] [address] [facility] [address] Performing Lab: [facility] [address] [facility] [address] [facility] [address] AMMONIA <14 <72 Apr 02, 2022 [facility] LIVER FUNCTION TESTS Specime n Type: PLASMA 02:37 PM No comment enter ed. Ordering Provid er: MADISON SOL Report Released Date/Time: Apr 02, 2022 02:05 PM Reporting Lab: [facility] [address] [facility] [address] [facility] [address] Performing Lab: [facility] [address] [facility] [address] BILIRUBIN, TOTAL 0.5 0.2-1.2 ALKALINE PHOSPHATASE 108 40-150 ALT/SGPT 24 <55 AST/SGOT 18 <34 GAMMA GTP 34 <64 Apr 02, 2022 [facility] METHYLMA ACID, [place] Specime n Type: SERUM 02:37 PM Comment: This t est was developed and its analytical performance characteristics have been determined by [employer] [place], [place]. It has not been cleared or approved by the U.S . Food and Drug Administration. This assay has been validated pursuant to the CLIA regulations and is used for clinical purposes. Test Performed by [facility], [facility], [address] [place] [address] Domenic Miller M.D., Ph.D., Director of Laboratories , CLIA [id number] Ordering Provid er: MADISON SOL Report Released Date/Time: Apr 02, 2022 04:37 PM Reporting Lab: [facility] [address] [facility] [address] Performing Lab: [address] METHYLMA ACID, [place] [phone] Social History: Smoking Status (Most current) and Tobacco Use (All prior to encounter date) This section includes the most current, and the historical, smoking and tobacco-related health factors from the [facility] where the Encounter took place.Current Smoking Status This section includes the most current smoking, or tobacco-related health factor, from the [facility] where the Encounter took place. Date/Time Current Smoking Status Comment Facility Feb 02, 2022 09:30 AM [place]-TOBACCO NEVER USED [place] [facility] Tobacco Use History This section includes a history of the smoking, or tobacco- related health factors, that were collected on or before the date of the Encounter. The data comes from the [place] facility where the Encounter took place. Date/Time Smoking Status/Tobacco Use Comment Xavi chanel Mar 22, 2021 07:45 AM VA-TOBACCO NEVER USED [place] [facility] Oct 02, 2019 10:02 AM VA-TOBACCO NEVER USED [place] [facility] May 21, 2018 09:05 AM VA-TOBACCO NEVER USED [place] [facility] December 25, 2017 06:14 PM INPT NO TOBACCO USE IN LAST 30 DAYS [facility] Oct 01, 2017 07:34 AM LIFETIME NON-TOBACCO USER [facility] Sep 28, 2016 08:44 AM LIFETIME NON-TOBACCO USER [facility] Oct 14, 2015 07:52 AM LIFETIME NON-TOBACCO USER [facility] Oct 11, 2014 07:59 AM LIFETIME NON-TOBACCO USER [facility] January 15, 2007 07:55 AM LIFETIME NON-TOBACCO USER [facility] Advance Directives: All historical and current Section Date Range: From patient's date of to the date document was created. This section includes ALL of a patient's completed or amended [place] Advance and Rescinded Directives. The entries below indicate that a directive exists for the patient, but an actual copy is not included with this document. The data comes from all [facility]. Date Advance Directives Provider Source Apr 18, 2018 ADVANCE DIRECTIVE LARISSA SIGALA [facility] Apr 18, 2018 ADVANCE DIRECTIVE DISCUSSION LARISSA SIGALA [facility] December 23, 2017 CLINICAL WARNING FARHAT [facility] May 11, 2003 ADVANCE DIRECTIVE BERT CASILLAS [facility] Encounter Notes: All associated encounter notes This section contains the clinical notes associated to the Encounter. Date/Time Encounter Note(s) Provider Source Apr 27, 2022 12:22 PM CONSULT: DEBBIE KIRK [facility] LOCAL TITLE: CAREGIVER SUPPORT CONSULT STANDARD TITLE: CONSULT DATE OF NOTE: APR 27, 2022@12:22 ENTRY DATE: APR 27, 2022@12:34:29 AUTHOR: DEBBIE KIRK EXP COSIGNER: URGENCY: STATUS: COMPLETED 9 minutes in phone call Name of Caregiver: Nathaniel Lorenzo Relationship of Caregiver to the : The caregiver is the 's son. Caregiver Contact number: [phone] Reason(s) for Referral: Caregiver support groups Caregiver education and training Eligibility Evaluation for the Program of Gener al Caregiver Support Services Services/Education Offered: Caregiver Support Line education calls Information provided Peer Support [place] Program Information provided Building Better Caregivers Information provided REACH [place] Information provided Pat Caregiver Text Information provided Program of Comprehensive Assistance for Family Caregivers Information provided Program of General Caregiver Support Services Information provided Assessment and Plan: The Caregiver, Nathaniel had limited time today to r eview the program. Customer Service Representative Teller provided a brief overview of the program with information about the Program of Comprehensive Assistance for Family Caregivers (PCAFC) as well as the Program of General Caregiver Support Services (PGCS S). He understood that the do not meet the criteria for PCAFC. He is interested in Prog deanne information and requested information be sent to [email or web address] Customer Service Representative Teller noted that contact information will be attached to correspondence for any addit ional questions. Information sent: Two Program what's the Difference PGCSS Resource Program List PCAFC Eligibility handout Caregiver Corner Newsletter Contact information No additional follow up needed at this time. /ronni/ DEBBIE KIRK General Caregiver Pain Management Physician Signed: 04/27/2022 13:32
--- OUTSIDE RECORDS SUMMARY | 2022-05-01 10:29 | XMS_ITS | Encounter Summary ---
:1935 Author Organization [facility] rs Address [address] [place] [id number] Support Name Relationship Address Phone WADE LORENZO Unavailable [address] [place] [address] WADE LORENZO Unavailable [address] [place] [address] ARACELI MARSHALL Unavailable [address] [place] [address] MARILIA MARSHALLA Unavailable [address] [place] [address] Insurance Providers: All historical and current Section [...] [place] MEDICARE MCR Aug 19, [id number] [facility]el [facility] (WNR) 2017 8 [id number] [phone] [facility] [place] MEDICARE MCR Aug [id number] Kristel [facility] (WNR) 2016 8 [id number] [phone] [facility] Selected Encounter This section includes the information on record at [place] for the Encounter. Date/Time Encounter Type Encounter Reason Provider Source Description Apr 30, 2022 OFFICE O/P EST PRIMARY ICD-10-CM I48.20 NENA GUNTER 08:00 AM [place] 40-54 MIN CARE/MEDICINE Chronic atrial JOANNE L fibrillation, unspecified with Provider Comments: Chronic atrial fibrillation ([facility] [id number]) IHE Encounter Template Text not used by [place] Assessments - Encounter Diagnoses This section includes the primary and secondary diagnoses documented for the Encounter. Date/Time Primary/Secondary Diagnosis Name Provider Source Diagnosis Apr 30, 2022 PRIMARY Chronic atrial BETH GUNTER [facility] 08:48 AM fibrillation, SSA L HCS unspecified Plan of Treatment: Future Appointments (+ 6 months) and Future Tests (+/- 45 days) The Plan of Treatment section includes future care activities for the patient from all [place] [facility]. This section includes future appointments and future orders which are active, pending orscheduled.Future Appointments This section includes appointments that were scheduled to occur 6 months from the date of the Encounter, up to a maximum of 20 appointments. The data comes from all [place] treatment facilities. Appointment Date/Time Appointment Type Appointment Facili ty Name May 11, 2022 06:15 PM AMBULATORY - NONE [facility] Jul 23, 2022 08:00 AM AMBULATORY - NEUROLOGY [facility] Active, Pending, and Scheduled Orders This section includes a listing of several types of active, pending, and scheduled orders, including clinic medications orders, diagnostic test orders, procedure orders and consult orders; where the start date of the order is 45 days before the date of the Encounter or 45 days after the date of the Encounter. The data comes from all [place] treatment facilities. Test Date/Time Test Type Test Details Facility Name Apr 30, 2022 08:21 Laboratory - Chemistry URINALYSIS URINE WC ON CE [facility] AM Order Apr 30, 2022 08:21 Laboratory - CULT[facility] & [facility]IBILITY [facility] Microbiology Order URINE WC May 11, 2022 06:15 Imaging - Magnetic MRI-BRAIN (P) [facility] PM Resonance Imaging (MRI) Order Lab [...] Range Comment Apr 30, 2022 09:17 AM [facility] CBC Specim en Type: BLOOD No comment enter ed. Ordering Provid er: BILL GUNTER Report Released Date/Time: Apr 30, 2022 08:21 AM Reporting Lab: [facility] [id number] Performing Lab: [facility] [id number] WBC 10.40 4.0-11.0 RBC 3.96 L 4.6-6.2 HGB 12.3 L 13.5-17.9 HCT 37.8 L 41-54 MCV 95.5 80-100 MCH 31.1 27-33 MCHC 32.5 32.0-37.5 PLT 286 150-400 MPV 10.1 7.4-10.4 RDW 14.6 H 11.5-14.5 Apr 30, 2022 [facility] BASIC METABOLIC Specimen Typ e: PLASMA 09:17 AM PANEL+MG No comment enter ed. Ordering Provid er: BILL GUNTER Report Released Date/Time: Apr 30, 2022 08:21 AM Reporting Lab: [facility] [id number] Performing Lab: [facility] [address] CREATININE 1.2 0.7-1.2 UREA NITROGEN 26 8-26 GLUCOSE 140 H 70-100 SODIUM 138 136-145 POTASSIUM 3.8 3.5-5.1 CHLORIDE 107 98-107 CO2 20 L 22-29 CALCIUM 9.4 8.4-10.2 MAGNESIUM 1.7 1.6-2.6 ANION GAP 11 5-15 CREAT EGFR(CKD-EPI) 59 L >60 Apr 02, 2022 02:37 PM [facility] B 12 Specim en Type: SERUM No comment enter ed. Ordering Provid er: MADISON SOL O Report Released Date/Time: Apr 02, 2022 02:05 PM Reporting Lab: [facility] [id number] Performing Lab: [facility] [id number] B 12 [phone] Apr 02, 2022 [facility] LIVER FUNCTION TESTS Specime n Type: PLASMA 02:37 PM No comment enter ed. Ordering Provid er: MADISON SOL O Report Released Date/Time: Apr 02, 2022 02:05 PM Reporting Lab: [facility] [id number] Performing Lab: [facility] [address] [facility] [address] BILIRUBIN, TOTAL 0.5 0.2-1.2 ALKALINE PHOSPHATASE 108 40-150 ALT/SGPT 24 <55 AST/SGOT 18 <34 GAMMA GTP 34 <64 Apr 02, 2022 02:37 PM [facility] AMMONIA Specim en Type: PLASMA No comment enter ed. Ordering Provid er: MADISON SOL Report Released Date/Time: Apr 02, 2022 02:05 PM Reporting Lab: [facility] [address] [facility] [address] Performing Lab: [facility] [address] [facility] [address] AMMONIA <14 <72 Apr 02, 2022 [facility] METHYLMA ACID, [facility] Specime n Type: SERUM 02:37 PM Comment: This t est was developed and its analytical performance characteristics have been determined by [employer] [place], [place]. It has not been cleared or approved by the U.S . Food and Drug Administration. This assay has been validated pursuant to the CLIA regulations and is used for clinical purposes. Test Performed by [facility], [facility], [address] [place] [address] Domenic Miller M.D., Ph.D., Director of Laboratories , CLIA [id number] Ordering Provid er: MADISON SOL Report Released Date/Time: Apr 02, 2022 04:37 PM Reporting Lab: [facility] [id number] Performing Lab: [address] [facility] METHYLMA ACID, [facility] [phone] Vital Signs: All taken on the encounter date This section contains inpatient and outpatient Vital Signs collected on the date of the Encounter. Date/Time Temperature Pulse Blood Respiratory SP02 Pain Height Weight Edvin dy Source Pressure Rate Mass Index Sep 12, 98.2 F 129/69 18 /min 98 % [place] 2021 07:57 mm[Hg] [facility] Social History: Smoking Status (Most current) and Tobacco Use (All prior to encounter date) This section includes the most current, and the historical, smoking and tobacco-related health factors from the [facility] where the Encounter took place.Current Smoking Status This section includes the most current smoking, or tobacco-related health factor, from the [place] facility where the Encounter took place. Date/Time Current Smoking Status Comment Facility Feb 02, 2022 09:30 AM [place]-TO[place] NEVER USED [place] [facility] Tobacco Use History This section includes a history of the smoking, or tobacco- related health factors, that were collected on or before the date of the Encounter. The data comes from the [facility] where the Encounter took place. Date/Time Smoking Status/Tobacco Use Comment [place] [facility] Mar 22, 2021 07:45 AM [place]-TOBACCO NEVER USED [place] [facility] Oct 02, 2019 10:02 AM [place]-TO[place] NEVER USED [place] [facility] May 21, 2018 09:05 AM [place]-TO[place] NEVER USED [place] [facility] December 25, 2017 06:14 PM [...] document. The data comes from all [facility]. Date Advance Directives Provider Source Apr 18, 2018 ADVANCE DIRECTIVE LARISSA SIGALA [facility] Apr 18, 2018 ADVANCE DIRECTIVE DISCUSSION LARISSA SIGALA [facility] December 23, 2017 CLINICAL WARNING FARHAT SCHMID [facility] May 11, 2003 ADVANCE DIRECTIVE BERT CASILLAS [facility] Encounter Notes: All associated encounter notes This section contains the clinical notes associated to the Encounter. Date/Time Encounter Note(s) Provider Source Apr 30, 2022 11:36 AM ADVANCE DIRECTIVE: BERT VILLALPANDO [facility] LOCAL TITLE: AD NOTIFICATION AND SCREENING STANDARD TITLE: ADVANCE DIRECTIVE DATE OF NOTE: APR 30, 2022@11:36 ENTRY DATE: APR 30, 2022@11:36:12 AUTHOR: BERT VILLALPANDO EXP COSIGNER: URGENCY: STATUS: COMPLETED ADVANCE DIRECTIVE NOTIFICATION: Patient was given written notification of the f marika rights: 1. Accept or refuse any medical treatment. 2. Complete a durable power of deputy attorney general for hea lt care. 3. Complete a living will. ADVANCE DIRECTIVE SCREENING NOT PERFORMED: It was not possible to perform the advance dire ctive screening because: pt did not want ad information /es/ BERT VILLALPANDO [employer] Signed: 04/30/2022 11:36 Apr 30, 2022 08:37 AM INTERNAL MEDICINE NOTE: BILL GUNTER [facility] LOCAL TITLE: MEDICINE CLINIC NOTE STANDARD TITLE: INTERNAL MEDICINE NOTE DATE OF NOTE: APR 30, 2022@08:37 ENTRY DATE: APR 30, 2022@08:38:49 AUTHOR: BILL GUNTER EXP COSIGNER: URGENCY: STATUS: COMPLETED MEDICINE CLINIC NOTE Has ADDENDA Assessment and plan: Unspecified dementia (confirme w/ neurocog testi ng) Resting tremor in both hands with pill-rolling m ovements noted in left -managed by neurology -B12 injections per neurology -MRI brain pending -check UA/UCx given cognitive decline in setting of prior infection -check BMP and CBC. pt recen tly on prednisone so leukocytosis is likely finding -d/w family desire to avoid benadryl and/or prednisone as much as possible given these meds can impact cognition. Avoidance needs to be balanced by comfort as well as they describe a severe rash that has now resolved after being on these meds -currently in [place] and sertaline 50 mg da partha added to regimen by there. ---> cc neuro as FYI to medication change at [facility] Elevated PSA with BPH Urinary outlet obstruction with bacteremia requi ring hospitalization January 2021 TURP February 2021 Readmission for prostatitis with sepsis and UTI December 2021 -follows with urology Dr Moreno at [facility] -Continue finasteride 5 mg daily -checking UA/Ucx today given acute mental declin e Chronic medical issues not addressed today------ -------------> Type 2 diabetes mellitus goal A1c less than 8% ( age and renal function) -Regimen deescalated March 2021 secondary to re peated hypoglycemic episodes while A1c was in the 6% range -A1c 8.2% on last check -Current regimen Metformin 500 mg twice daily Pioglitazone 30 mg every morning Glipizide 5 mg every morning -On statin -Not on BERE or ARB -Foot exam up-to-date per podiatry -Yearly eye exam up-to-date by community ophthal mology Insomnia -Melatonin 3 mg at night Yeast in skin folds -Nystatin prn Chronic kidney disease stage 3 -Continue vitamin D Diastolic heart failure HTN Dyslipidemia Chronic atrial fibrillation -Managed by cardiology and in [place], Dr. Vlad contreras. -Current regimen Metoprolol succinate 100 mg daily Rivaroxaban 20 mg daily Atorvastatin 10 mg daily Lasix 20 mg daily Mild anemia, asymptomatic B12 deficiency -on B12 injections through neuro corns and calluses -Continue follow-up with podiatry in the [facility] Dr. Sweeney -Continue intermittent prosthetics referrals for shoes OBIE -Continue nightly CPAP Gout -Continue allopurinol 100 mg daily Chronic low back pain -Currently not an issue -Physical therapy as needed -Has a history of spine injections in the past. Referral to pain intervention clinic as needed Health maintenance: -Has aged out of routine colon cancer screening -PSA managed by [facility] urology -Does not meet criteria for lung cancer screenin g as he is a lifelong non- smoker -Does not meet criteria for AAA screening Nurse's notes reviewed from today. LUISANA EDDY is a 85 year old MALE with the following Chief complaint: here w/ gson. patient has be en reportedly doing quite well at [place] recently. then developed a total body rash and was put on PO benadryl and prednisone. unclear start date of those meds over the weekend he developed increased shaking and more confusion fell this AM at 0200 at [facility]. no injuries gson v concerned about poss UTI Social/family history: as of January 2022 he is back in his home, his gran dson has moved in with him. ----> Apr 2022 in a custodial He has stopped driving. Lifelong non-smoker Nondrinker No illicit drug use HPI/ROS: As above otherwise limited by patient's cognition Active problems - Computerized Problem List is t he source for the followin. Type 2 diabetes mellitus (SNOMED CT [id number] ) 2. OBESITY, UNSP 3. Psoriasis * 4. Social and personal history finding - Lives alone. Has brother in [place]. Friends felipe breaux. 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 5. History of adenomatous polyp of colon - Last c-scope 05/09/15 at [facility]. Two small polyp s. - 5 year follow up if appropriate. 6. Elevated PSA - follows with urology at [facility] - with BPH on terazosin - February 2021: TURP at [facility] 7. Chronic kidney disease stage 3 8. Diastolic heart failure - w/ HTN and dyslipidemia 9. Chronic atrial fibrillation - metoprolol and rivaroxaban 10. history of hospitalization - January 2021: Bacteremia secondary to urinary ou tflow obstruction from BPH - underwent a TURP at [facility] February 2021 11. corns and calluses - followed by podiatry in the community in [facility] 12. Gout - on allopurinol Allergies: SIMVASTATIN (Feb 29, 2004) CEPHALEXIN (Mar 01, 2004) Active and Recently Outpatient Medicatio ns (including Supplies): Active Outpatient Medications Status 1) ATORVASTATIN CALCIUM 10MG TAB TAKE ONE-HALF T ABLET BY ACTIVE MOUTH EVERY DAY 2) CYANOCOBALAMIN 1000MCG/ML INJ INJECT 1ML (100 0MCG) ACTIVE INTRAMUSCULAR EVERY DAY FOR 7 DAYS, THEN INJECT 1ML (1000MCG) EVERY WEEK FOR 4 WEEKS, THEN INJECT 1 ML (1000MCG) EVERY MONTH FOR 3 MONTHS, THEN INJECT 1ML (1000MCG) EVERY 3 MONTHS 3) FERROUS SULFATE 325MG TAB TAKE ONE TABLET BY MOUTH ACTIVE EVERY DAY 4) FINASTERIDE 5MG TAB TAKE ONE TABLET BY MOUTH EVERY ACTIVE DAY FOR PROSTATE 5) GLIPIZIDE 5MG TAB TAKE ONE TABLET BY MOUTH ACTIVE FOR DIABETES -TAKE 30 MINUTES BEFORE MEAL 6) MELATONIN 3MG CAP/TAB TAKE 1 TABLET BY MOUTH AT ACTIVE BEDTIME 7) METFORMIN HCL 1000MG TAB TAKE ONE-HALF TABLET BY ACTIVE MOUTH TWO TIMES A DAY 8) METOPROLOL SUCCINATE 200MG SA TAB TAKE ONE-DONALD LF ACTIVE TABLET BY MOUTH EVERY DAY 9) NYSTATIN 635402 UNT/GM CREAM APPLY THIN LAYER ACTIVE TOPICALLY TWICE A DAY NEEDED FOR FUNGAL INFECTION EXTERNAL USE ONLY SKIN FOLDS 10) SYRINGE 2.5-3ML/NDL 22G 1IN USE 1 SYRINGE AC TIVE INTRAMUSCULAR DIRECTED FOR CYANOCOBALAMIN INJECTION *DISPOSE OF IN A HARD-PLASTIC CONTAIN ER WITH A SCREW-ON LIDCONTACT GARBAGE HAULER FOR PROPER DISPOSAL Pending Outpatient Medications Status 1) SERTRALINE HCL 100MG TAB TAKE ONE-HALF TABLET BY PENDING MOUTH EVERY DAY EXAM: VS: Temp: 98.2 F [36.8 C] (04/30/2022 07:57) BP: 129/69 (04/30/2022 07:57) Pulse:98 (04/02/2022 13:22) Resp: 18 (04/30/2022 07:57) Pain: 3 (04/02/2022 13:22) Weight: WEIGHTS IN LAST 6 MONTHS: Unavailable (APR 30, 2022@07:57:58) 284.1 (FEB 02, 2022@09:21:12) General: chronically ill appearing, constant BUE resting and intentional tremors, not oriented Neck: no jvd Lungs: CTAB Heart: RRR Gait: in a wheelchair Skin: warm and dry /ronni/ Bill Gunter MD Physician Signed: 04/30/2022 08:48 Receipt Acknowledged By: * AWAITING SIGNATURE * MADISON SOL Abilio 04/30/2022 ADDENDUM STATUS: COMPLETED Please call patient's custodial to obtain UA results from today. Also please let family know that basic blood wor k was fairly unremarkable /ronni/ Bill Gunter MD Physician Signed: 04/30/2022 16:32 Receipt Acknowledged By: * AWAITING SIGNATURE * ZARA DAVID Apr 30, 2022 08:07 AM INTERNAL MEDICINE OUTPATIENT NOTE: Antony FLOWERS [facility] LOCAL TITLE: MEDICINE CLINIC NURSING NOTE STANDARD TITLE: INTERNAL MEDICINE OUTPATIENT NOT E DATE OF NOTE: APR 30, 2022@08:07 ENTRY DATE: APR 30, 2022@08:07:35 AUTHOR: KALYAN FLOWERS EXP COSIGNER: URGENCY: STATUS: COMPLETED TYPE OF VISIT: Appointment Check In Type of appointment: In-person appointment REASON FOR VISIT: Patient's family stated he had a fall yesterday . ALLERGIES: SIMVASTATIN (Feb 29, 2004) CEPHALEXIN (Mar 01, 2004) VITAL SIGNS: Blood Pressure: 129/69 (04/30/2022 07:57) Pulse: 98 (04/02/2022 13:22) Respiration: 18 (04/30/2022 07:57) Temperature: 98.2 F [36.8 C] (04/30/2022 07:57) Weight: Unavailable (04/30/2022 07:57) Height: Unavailable (04/30/2022 07:57) BMI: BMI not available without height O2 Sat: 98% (04/30/2022 07:57) Pain: Patient is not able to rate his pain, andrés chavis is in the room with the patient and states he had a fall yester day. Patient states he is hurting. PAIN SCREEN: Patient is having significant pain that they wo uld like to talk to their provider about today. Pain Education Patient indicates readiness to learn and verbal izes understanding of the following: Pain assessment process, Understandi ng what pain is, Risk for pain, Timeliness of medication Has concerns/questions, advised to discuss with provider Suicide Screen: C-SSRS Screening [place] Suicide Severity Rating Scale (C-SSRS) screener 1. Over the past month, have you wished you wer e or wished you could go to sleep and not wake up? No 2. Over the past month, have you had any actual thoughts of killing yourself? No 3. Over the past month, have you been thinking about how you might do this? Response not required due to responses to other questions. 4. Over the past month, have you had these thou ghts and had some intention of acting on them? Response not required due to responses to other questions. 5. Over the past month, have you started to wor k out or worked out the details of how to kill yourself? Response not required due to responses to other questions. 6. If yes, at any time in the past month did yo u intend to carry out this plan? Response not required due to responses to other questions. 7. In your lifetime, have you ever done anythin g, started to do anything, or prepared to do anything to end you r life (for example, collected pills, obtained a gun, gave away valu ashley, went to the roof but didn't jump)? No 8. If YES, was this within the past 3 months? Response not required due to responses to other questions. Depression Screening: Perform PHQ-2 A PHQ-2 screen was performed. The score was 0 w hich is a negative screen for depression. Over the past two weeks, how often have you bee n bothered by the following problems? 1. Little interest or pleasure in doing things Not at all 2. Feeling down, depressed, or hopeless Not at all /ronni/ KALYAN FLOWERS LPN LICENSED PRACTICAL NURSE Signed: 04/30/2022 08:09
--- OUTSIDE RECORDS SUMMARY | 2022-05-01 10:29 | XMS_ITS | Encounter Summary ---
:1935 Author Organization [facility] rs Address [address] [place] [id number] Support Name Relationship Address Phone NATHANIEL LORENZO Unavailable [address] [place] [address] NATHANIEL LORENZO Unavailable [address] [place] [address] ARACELI MARSHALL Unavailable [address] [place] [address] MARILIA MARSHALLA Unavailable [address] [place] [address] Insurance Providers: All historical and current Section [...] [place] Aug 19, [id number] Kristel EDDY [facility] (WNR) ADVANTAGE (WNR) 2017 8 [id number] [phone] [facility] 1 [place] Aug 19, [id number] Kristel EDDY [facility] (WNR) ADVANTAGE (WNR) 2016 8 [id number] [phone] [facility] 1 Selected Encounter This section includes the information on record at ND for the Encounter. Date/Time Encounter Type Encounter Reason Provider Source Description Apr 26, 2022 NRPSYC TST EVAL MENTAL HEALTH ICD-10-CM F03.90 BAILEY DOWNS N 10:00 AM PHYS/QHP [facility] Unspecified dementia without behavioral disturbance with Provider Comments: Unspecified Dementia without Behavioral Disturbance IHE Encounter Template Text not used by ND Assessments - Encounter Diagnoses This section includes the primary and secondary diagnoses documented for the Encounter. Date/Time Primary/Secondary Diagnosis Name Provider Source Diagnosis Apr 26, 2022 PRIMARY Unspecified FILIBERTO DOWNS [facility] 12:25 PM dementia without HCS behavioral disturbance Apr 26, 2022 SECONDARY Anxiety disorder, [facility] 12:25 PM unspecified HCS Plan of Treatment: Future Appointments (+ 6 months) and Future Tests (+/- 45 days) The Plan of Treatment section includes future care activities for the patient from all [facility]. This section includes future appointments and future orders which are active, pending orscheduled.Future Appointments This section includes appointments that were scheduled to occur 6 months from the date of the Encounter, up to a maximum of 20 appointments. The data comes from all [place] treatment [facility]. Appointment Date/Time Appointment Type Appointment Facili ty Name Apr 30, 2022 08:00 AM AMBULATORY - MEDICINE [facility] H CS Apr 30, 2022 09:15 AM AMBULATORY - NONE [facility] May 11, 2022 06:15 PM AMBULATORY - NONE [facility] Jul 23, 2022 08:00 AM AMBULATORY - NEUROLOGY [facility] Active, Pending, and Scheduled Orders This section includes a listing of several types of active, pending, and scheduled orders, including clinic medications orders, diagnostic test orders, procedure orders and consult orders; where the start date of the order is 45 days before the date of the Encounter or 45 days after the date of the Encounter. The data comes from all [place] treatment [facility]. Test Date/Time Test Type Test Details Facility Name Apr 30, 2022 08:21 Laboratory - CULTURE & SUSCEPTIBILITY [facility] AM Microbiology Order URINE WC Apr 30, 2022 08:21 Laboratory - Chemistry URINALYSIS URINE WC ON CE [facility] AM Order May 11, 2022 06:15 Imaging - Magnetic MRI-BRAIN (P) [facility] PM Resonance Imaging (MRI) Order [...] Range Comment Apr 30, 2022 09:17 AM [facility] CBC Specim en Type: BLOOD No comment enter ed. Ordering Provid er: BILL ROONEY Report Released Date/Time: Apr 30, 2022 08:21 AM Reporting Lab: [facility] [address] [facility] [id number] Performing Lab: [facility] [id number] WBC 10.40 4.0-11.0 RBC 3.96 L 4.6-6.2 HGB 12.3 L 13.5-17.9 HCT 37.8 L 41-54 MCV 95.5 80-100 MCH 31.1 27-33 MCHC 32.5 32.0-37.5 PLT 286 150-400 MPV 10.1 7.4-10.4 RDW 14.6 H 11.5-14.5 Apr 30, 2022 [facility] BASIC METABOLIC Specimen Typ e: PLASMA 09:17 AM PANEL+MG No comment enter ed. Ordering Provid er: BILL ROONEY Report Released Date/Time: Apr 30, 2022 08:21 AM Reporting Lab: [facility] [address] [facility] [address] Performing Lab: [facility] [id number] CREATININE 1.2 0.7-1.2 UREA NITROGEN 26 8-26 GLUCOSE 140 H 70-100 SODIUM 138 136-145 POTASSIUM 3.8 3.5-5.1 CHLORIDE 107 98-107 CO2 20 L 22-29 CALCIUM 9.4 8.4-10.2 MAGNESIUM 1.7 1.6-2.6 ANION GAP 11 5-15 CREAT EGFR(CKD-EPI) 59 L >60 Apr 02, 2022 02:37 PM [facility] B 12 Specim en Type: SERUM No comment enter ed. Ordering Provid er: MADISON SOL Report Released Date/Time: Apr 02, 2022 02:05 PM Reporting Lab: [facility] [address] [facility] [address] Performing Lab: [facility] [address] [facility] [address] B 12 [phone] Apr 02, 2022 02:37 PM [facility] AMMONIA Specim en Type: PLASMA No comment enter ed. Ordering Provid er: MADISON SLO Report Released Date/Time: Apr 02, 2022 02:05 PM Reporting Lab: [facility] [address] [facility] [address] Performing Lab: [facility] [address] [facility] [address] AMMONIA <14 <72 Apr 02, 2022 [facility] LIVER FUNCTION TESTS Specime n Type: PLASMA 02:37 PM No comment enter ed. Ordering Provid er: MADISON SOL O Report Released Date/Time: Apr 02, 2022 02:05 PM Reporting Lab: [facility] [address] [facility] [address] Performing Lab: [facility] [address] [facility] [address] BILIRUBIN, TOTAL 0.5 0.2-1.2 ALKALINE PHOSPHATASE 108 40-150 ALT/SGPT 24 <55 AST/SGOT 18 <34 GAMMA GTP 34 <64 Apr 02, 2022 [facility] METHYLMA ACID, [facility] Specime n Type: SERUM 02:37 PM Comment: This t est was developed and its analytical performance characteristics have been determined by [employer] [place], [place]. It has not been cleared or approved by the U.S . Food and Drug Administration. This assay has been validated pursuant to the CLIA regulations and is used for clinical purposes. Test Performed by [employer] [facility], [address] [place] [address] Domenic Miller M.D., Ph.D., Director of Laboratories , CLIA [id number] Ordering Provid er: KRISTISHEONELIAJOSSELIN Knox Report Released Date/Time: Apr 02, 2022 04:37 PM Reporting Lab: [facility] [address] [facility] [address] Performing Lab: [address] METHYLMA ACID, [facility]ST [phone] Social History: Smoking Status (Most current) and Tobacco Use (All prior to encounter date) This section includes the most current, and the historical, smoking and tobacco-related health factors from the [facility] where the Encounter took place.Current Smoking Status This section includes the most current smoking, or tobacco-related health factor, from the [place] facility where the Encounter took place. Date/Time Current Smoking Status Comment Facility Feb 02, 2022 09:30 AM [place]-TOBACCO NEVER USED [place] [facility] Tobacco Use History This section includes a history of the smoking, or tobacco- related health factors, that were collected on or before the date of the Encounter. The data comes from the [place] facility where the Encounter took place. Date/Time Smoking Status/Tobacco Use Comment [facility] Mar 22, 2021 07:45 AM ND-TOBACCO NEVER USED [place] [facility] Oct 02, 2019 10:02 AM [place]-TOBACCO NEVER USED [place] [facility] May 21, 2018 09:05 AM ND-TOBACCO NEVER USED [place] [facility] December 25, 2017 06:14 PM INPT NO TOBACCO USE IN LAST 30 DAYS [facility] Oct 01, 2017 07:34 AM LIFETIME NON-TOBACCO USER [facility] Sep 28, 2016 08:44 AM LIFETIME NON-TOBACCO USER [facility] Oct 14, 2015 07:52 AM LIFETIME NON-TOBACCO USER [facility] Oct 11, 2014 07:59 AM LIFETIME NON-TOBACCO USER [facility] January 15, 2007 07:55 AM LIFETIME NON-TOBACCO USER [facility] Advance Directives: All historical and current Section Date Range: From patient's date of to the date document was created. This section includes ALL of a patient's completed or amended [place] Advance and Rescinded Directives. The entries below indicate that a directive exists for the patient, but an actual copy is not included with this document. The data comes from all [facility]. Date Advance Directives Provider Source Apr 18, 2018 ADVANCE DIRECTIVE LARISSA SIGALA [facility] Apr 18, 2018 ADVANCE DIRECTIVE DISCUSSION LARISSA SIGALA [facility] December 23, 2017 CLINICAL WARNING FARHAT [facility] May 11, 2003 ADVANCE DIRECTIVE BERT CASILLAS [facility] Encounter Notes: All associated encounter notes This section contains the clinical notes associated to the Encounter. Date/Time Encounter Note(s) Provider Source Apr 26, 2022 10:00 AM [facility]UR[facility]SY[facility]Y [facility]: NEUROPSYCHOLOGY PROGRESS NOTE STANDARD TITLE: NEUROPSYCHOLOGY NOTE DATE OF NOTE: APR 26, 2022@10:00 ENTRY DATE: APR 26, 2022@12:20:48 AUTHOR: FILIBERTO DOWNS EXP COSIGNER: URGENCY: STATUS: COMPLETED Reason for Visit: Mr. Jef owens presented on time with his caregivers for today's appointment. The purpose of the appointment was to provide feedback regarding the results of his recent neuropsychological yessiac luation. Appointment was conducted via [facility] per his request. His l ocation, access to 911 services, phone number, and emergency contact were confirmed. Ca regivers Araceli and Nathaniel participated in the call with his permission. Pertinent History: The was referred for evaluation due to report of cognitive decline in relation to recent hospitalizations and concerns from his caregivers. Overview of Services Provided: The content of e feedback was as outlined in the Summary/Impressions and Recommendations sections of the evaluation report which was posted as an addendum under the NEUROPSYCHOLOGY CONSULT dated 04/02/22. Diagnosis: Unspecified Dementia without Behavior al Disturbance (ICD-10-CM F03.90) (Primary), Anxiety Disorder, unspecified (ICD-10-CM F41.9) PATIENT CONSENT/EDUCATION: At initial [facility] appointment, [place] provided consent to procedures and reported understanding of the limits to confidentiality. Today indicated readine ss to learn for the education provided during this session as noted above. Michelle bae also indicated understanding by asking questions and making meghan ropriate comments. 1. MEDICAL FOLLOW-UP: a. The [place] and his caregivers are encouraged to persist with vitamin B12 injections and to follow-up with Neurology for o ngoing monitoring of neurological symptoms. b. Careful management of blo od pressure, cholesterol and blood sugar levels, and weight is encouraged for stroke prevention. c. The [place] is encouraged to continue to disc uss pain management with his prescribing providers, as [facility] pain and side effects of narcotic medication can affect cognition. d. Sleep is understandably d isrupted related to pain and an unfamiliar sleeping environment. He is encouraged to monitor his sle ep, focus on optimal sleep hygiene techniques, and disc uss sleep disruption with his providers should this persist. 2. MENTAL HEALTH a. The [place] is encouraged to follow-up with his providers at his facility who prescribed Zoloft regarding anxiety and mood man agement. In addition, he may benefit from relaxation strategies and continued discussion of his daily schedule to determine reasonable expectations wi family and providers. b. To optimize brain functioning, overall mental health, and quality of life, the is encouraged to continue to focus on physical activity (as approved by medical providers), mental activity, social a ctivity, and structure and routine. Physical activity i n particular has been shown to support and possibly protect brain functioning. 3. COMPENSATORY STRATEGIES: The and his caregivers and providers are encouraged to use compensato ry strategies for optimal cognitive functioning. The following may be helpful and will be discussed d uring feedback: a. In conversation, make eye contact, minimize n oise in the environment, take notes if needed, check in with the frequ ently to gauge his understanding, and summarize information at the end to assist with recall b. When approach a multi-step task with the [place], write down concrete steps that can be crossed off to assist with task comp letion c. Use notes, alarms, and other reminders to ass ist with recall d. Focus on one task at a time e. Allow additional time to complete tasks f. Continue to bring a suppo rtive person to medical appointments to assist with recall of information discussed 4. FUNCTIONAL SUPPORT: The [place] is currently well-supported in his [facility] facility and by kaykay gandhi and friends. They are encouraged to discuss most appropriate living environme nt and need for additional support with Primary Care and his facility providers to explore appropriat e resources as needed. 5. ADDITIONAL SUPPORT: Given the [place]'s cogni tive disorder and significant caregiving responsibilities of Nathaniel and Araceli, they may benefit from ideas and support offered through [place] Caregiver Programming and supportive community organizations such as the Alzheimer's [employer] n, which is a community organization for individuals and families managi ng ANY type of dementia, not just Alzheimer's disease. Th eliza resources were discussed during feedback. Nathaniel is interested in [place] Caregive r resources and will be referred to the program and mailed information as well. 6. NEUROPSYCHOLOGY FOLLOW-UP: Follow-up evaluati on is recommended in 12-18 months if clinically indicated (e.g., if they merino ve questions about changes in his cognitive functioning) to assist with monito ring cognitive and functional change consultant time, and to provide updated recomme ndations. SAFETY ASSESSMENT: The explicitly denied suicidal ideation, intent, or plan. Risk factors: race, gender, age, complex medical status, anxiety Protective factors: engaged in healthcare, future- and goal-oriented, excellent support from ece and neighbor Risk assessment: Based on cu rrent risk and protective factors, acute and chronic risk for suicide is low The and his caregive rs were encouraged to call with any future questions or concerns. Time: 10am- 10:50am (50 minutes) /ronni/ FILIBERTO DOWNS, PHD, LP, ABPP STAFF NEUROPSYCHOLIGST Signed: 04/26/2022 12:25
[2022-05-01 11:05] LABS: Appearance Urine Clear (Clear); Bilirubin Urine Negative (Negative); Blood Urine 2+ (Negative); Color Urine Yellow (Yellow); Glucose Urine Negative (Negative); Ketones Urine 1+ (Negative); Leukocyte Esterase Urine Negative (Negative); Nitrite Urine Negative (Negative); Protein Urine 1+ (Negative); Specific Gravity Urine 1.025 (1.000-1.030); Urobilinogen Urine 0.2 (0.2-1.0); pH Urine 5.5 (5.0-8.5)
[2022-05-01] MEDS: lidocaine HCL 2 % JELLY (TOP) STERILE 6 ML UR (11:08)
[2022-05-01 11:14] LABS: WBC Urine 0-2 (0-5)
[2022-05-01] MEDS: HALOPERIDOL 5 MG/ML INJ 2.5 MG IV (11:39)
--- NOTE | 2022-05-01 11:53 | ED.FALL ---
HPI - Fall General Date Seen: 05/01/22 Chief Complaint: Fall/Minor Trauma Stated Complaint: Head bleed Time Seen by Provider: 05/01/22 08:45 Source: patient, EMS and old records reviewed Mode of arrival: EMS Limitations: altered mental status History of Present Illness HPI Narrative: Patient is 86-year-old gentleman who is brought in from the [facility], he is here because of altered mental status, he fell 3 days ago, injuring the right frontal region, [facility] laboratory tests were done, but no CT head was done. He has had increasing behavior at the [facility] and unable to really be cared for there so they sent him to the emergency room for evaluation. He has had no fevers, per report, but increasingly tough to redirect MD complaint: fall Onset (ago): day(s) Fall from: standing Fall witnessed: no Place fall occurred: [facility] Loss of consciousness: No Context: tripped/slipped Location of injury: head Related Data Home Medications Medication Instructions Recorded Confirmed calcitonin (salmon) 200 1 spray intranasal (ALT) DAILY 02/24/22 05/01/22 unit/actuation nasal spray cholecalciferol (vitamin D3) 25 2,000 unit PO DAILY 02/24/22 05/01/22 mcg (1,000 unit) tablet finasteride 5 mg tablet 5 mg PO DAILY 02/24/22 05/01/22 furosemide 20 mg tablet 20 mg PO DAILY 02/24/22 05/01/22 metformin 500 mg tablet 500 mg PO BIDWMEAL 02/24/22 05/01/22 nystatin 100,000 unit/gram topical 1 applic topical BID 02/24/22 05/01/22 powder (Nystop) pioglitazone 30 mg tablet 30 mg PO DAILY 02/24/22 05/01/22 rivaroxaban 20 mg tablet (Xarelto) 20 mg PO QPM 02/24/22 05/01/22 acetaminophen 650 mg 650 mg PO QID 05/01/22 05/01/22 tablet,extended release cyanocobalamin (vitamin B-12) 1,000 mcg IM Q7D 05/01/22 05/01/22 1,000 mcg/mL injection solution (Dodex) lidocaine 4 % topical patch (Lido 1 patch topical HS 05/01/22 05/01/22 ) melatonin 5 mg tablet 10 mg PO HS 05/01/22 05/01/22 metoprolol succinate 50 mg 50 mg PO DAILY 05/01/22 05/01/22 tablet,extended release 24 hr polyethylene glycol 3350 17 gram 17 g PO DAILY PRN 05/01/22 05/01/22 oral powder packet (Miralax) prednisone 20 mg tablet 40 mg PO DAILY 05/01/22 05/01/22 sertraline 50 mg tablet 50 mg PO DAILY 05/01/22 05/01/22 triamcinolone acetonide 0.1 % 1 applic topical BID 05/01/22 05/01/22 topical cream Previous Rx's Medication Instructions Recorded oxycodone 5 mg tablet 5 mg PO Q4H PRN Pain #30 tabs 02/26/22 sennosides 8.6 mg tablet (Senna 2 tab PO BID #120 tabs 02/26/22 Lax) Allergies Allergy/AdvReac Type Severity Reaction Status Date / Time No Known Drug Allergies Allergy Verified 02/23/22 16:32 Review of Systems Status of ROS: Reports: 6 or more systems reviewed and unremarkable except as noted in History and below Narrative: Review of systems however is really tough to do because he is unable to give me any really meaningful history, but I am able to glean some stuff from the reports from the [facility]. [facility] Medical History (Updated 05/01/22 @ 14:05 by Lovely Browning MD) Afib Back pain Bacteremia due to Escherichia coli BPH (benign prostatic hyperplasia) CKD (chronic kidney disease) Constipation Dementia Diabetes mellitus Essential tremor Foot ulcer Generalized weakness Gout Heart failure HTN (hypertension) Hyperlipidemia Obesity (BMI 30-39.9) OBIE (obstructive sleep apnea) Pressure ulcer of right heel, unspecified stage Prostatitis Spinal stenosis Thoracic compression fracture Transaminitis Surgical History History of cataract surgery History of transurethral resection of prostate Family History Father Prostate cancer Paternal Grandfather Prostate cancer Social History Smoking Status: Never smoker How often do you have a drink containing alcohol: never AUDIT-C Alcohol total score: 0 Non-prescribed substance use: denies use service: No Exam Narrative: Exam Narrative: Patient has bruising over the right side of his protestant forehead, his pupils are equal round react to light his mouth opening is normal there is no obvious cranial nerve palsies, his neck is supple full full range of motion, eyes noted. There is no evidence of any tracheal deviation his chest is clear bilaterally no wheezing crackles noted heart sounds are normal, his abdomen is soft there is no guarding no past splenomegaly bowel sounds are normal, he moves all extremities independently well, small skin tear is noted on his elbow, on the left side. He is is clearly a one-to-one, and we had get a nurse to sit with him. We will try little bit a low-dose Haldol to see we can get a little bit better control, as I am worried he is going to fall out or collateral out of his bed. I spoke to the hospitalist, I recommended admission given the above status I think a concussion on top of his normal dementia is probably what is going on here. As the CT scans are negative. Const: Vital Signs, click to edit/add: Vital Signs - 24 hr 05/01/22 08:42 05/01/22 09:11 05/01/22 09:12 Temperature 96.7 F L Pulse Rate 69 Pulse Rate [Right Pulse Oximeter] 90 Respiratory Rate 16 Blood Pressure 120/68 Blood Pressure [Ri ght Upper Arm] 138/126 H Pulse Oximetry 96 93 Oxygen Delivery Me thod Room Air Documenting provider has reviewed patient's vital signs: yes Course Reevaluation(s) Reevaluation #1: I did the discussed with the son, he tells me his dad does have issues with dementia and has had these episodes. On previous hospitalizations it turned out that this was just dementia. That is a possibility but I suspect this is more related to a concussion, is head injury. Clearly can not go home at the present time. We will have to admit him to the hospital for further care and workup. Vital Signs Vital signs: Initial Vital Signs Temperature 96.7 F L 05/01/22 08:42 Temperature Source Temporal Artery Scan 05/01/22 08:42 Pulse Rate 90 05/01/22 08:42 Respiratory Rate 16 05/01/22 08:42 Blood Pressure 138/126 H 05/01/22 08:42 Blood Pressure Mean 130 05/01/22 08:42 Blood Pressure Position Sitting 05/01/22 08:42 Pulse Oximetry 96 05/01/22 08:42 Oxygen Delivery Method 05/01/22 08:42 Vital Signs Temperature 96.7 F L 05/01/22 08:42 Pulse Rate 90 05/01/22 08:42 Respiratory Rate 16 05/01/22 08:42 Blood Pressure 138/126 H 05/01/22 08:42 Pulse Oximetry 96 05/01/22 08:42 Oxygen Delivery Method 05/01/22 08:42 Temperature 98.4 F 05/01/22 13:38 Pulse Rate 77 05/01/22 13:38 Respiratory Rate 16 05/01/22 13:38 Blood Pressure 116/65 05/01/22 13:38 Pulse Oximetry 99 05/01/22 13:40 Oxygen Delivery Method 05/01/22 13:38 MDM - Fall MDM Narrative Medical decision making narrative: Life-threatening differential diagnosis is considered include: Subarachnoid hemorrhage, subdural hemorrhage, epidural hemorrhage. Other differential diagnosis considered include concussion, closed head injury, or neck fracture. Medical Records Attestation: I reviewed the patient's medical records. Lab Data Attestation: I reviewed the patient's lab results. Labs: Lab Results 05/01/22 05/01/22 05/01/22 Range/Units 08:45 08:45 08:47 WBC 9.17 (4.50-11.00) K/uL RBC 4.01 L (4.30-5.90) m/uL Hgb 12.6 L (13.5-17.5) gm/dL Hct 38.1 (37.0-53.0) % MCV 95 (80-100) fL MCH 31 (26-34) pg MCHC 33 (32-36) gm/dL RDW Coeff of Dulce Maria 14.4 (11.5-15.5) % Plt Count 293 (140-440) K/uL Neut % (Auto) 77.1 H (42.0-72.0) % Lymph % (Auto) 12.9 L (20-44) % Benson % (Auto) 6.5 (0.0-11.0) % Eos % (Auto) 2.2 (0.0-7.0) % Baso % (Auto) 0.2 (0.0-3.0) % Neut # (Auto) 7.10 H (1.7-7.0) K/uL Lymph # (Auto) 1.20 (0.90-2.90) K/uL Benson # (Auto) 0.60 (0.00-0.90) K/UL Eos # (Auto) 0.20 (0.00-0.50) K/uL Baso # (Auto) 0.02 (0.00-0.30) K/uL Abs Immat Gran (auto) 0.10 (0.00-0.30) K/uL INR 1.36 H (0.91-1.10) APTT 38 H (23-33) Seconds Sodium 137 (135-149) mmol/L Potassium 3.8 (3.6-5.1) mmol/L Chloride 105 (96-114) mmol/L Carbon Dioxide 21 (20-32) mmol/L BUN 26 (7-30) mg/dL Creatinine 1.3 (0.5-1.5) mg/dL Estimated GFR 54 ml/min Glucose 215 H (60-115) mg/dL Calcium 9.0 (8.4-10.6) mg/dL Urine Color (Yellow) Urine Appearance (Clear) Urine pH (5.0-8.5) Ur Specific Mcdaniels (1.000-1.030) Urine Protein (Negative) Urine Glucose (UA) (Negative) Urine Ketones (Negative) Urine Blood (Negative) Urine Nitrite (Negative) Urine Bilirubin (Negative) Urine Urobilinogen (0.2-1.0) Ur Leukocyte Esterase (Negative) Urine RBC (0-2) Urine WBC (0-5) Ur Squamous Epith Cells (None-Few) Urine Bacteria (None) Ethyl Alcohol < 0.01 L (0.01-0.03) % SARS-CoV-2 (PCR) (Negative) Influenza Type A (PCR) (Negative) Influenza Type B (PCR) (Negative) RSV (PCR) (Negative) 05/01/22 05/01/22 Range/Units 09:11 10:45 WBC (4.50-11.00) K/uL RBC (4.30-5.90) m/uL Hgb (13.5-17.5) gm/dL Hct (37.0-53.0) % MCV (80-100) fL MCH (26-34) pg MCHC (32-36) gm/dL RDW Coeff of Dulce Maria (11.5-15.5) % Plt Count (140-440) K/uL Neut % (Auto) (42.0-72.0) % Lymph % (Auto) (20-44) % Benson % (Auto) (0.0-11.0) % Eos % (Auto) (0.0-7.0) % Baso % (Auto) (0.0-3.0) % Neut # (Auto) (1.7-7.0) K/uL Lymph # (Auto) (0.90-2.90) K/uL Benson # (Auto) (0.00-0.90) K/UL Eos # (Auto) (0.00-0.50) K/uL Baso # (Auto) (0.00-0.30) K/uL Abs Immat Gran (auto) (0.00-0.30) K/uL INR (0.91-1.10) APTT (23-33) Seconds Sodium (135-149) mmol/L Potassium (3.6-5.1) mmol/L Chloride (96-114) mmol/L Carbon Dioxide (20-32) mmol/L BUN (7-30) mg/dL Creatinine (0.5-1.5) mg/dL Estimated GFR ml/min Glucose (60-115) mg/dL Calcium (8.4-10.6) mg/dL Urine Color Yellow (Yellow) Urine Appearance Clear (Clear) Urine pH 5.5 (5.0-8.5) Ur Specific Mcdaniels 1.025 (1.000-1.030) Urine Protein 1+ A (Negative) Urine Glucose (UA) Negative (Negative) Urine Ketones 1+ A (Negative) Urine Blood 2+ A (Negative) Urine Nitrite Negative (Negative) Urine Bilirubin Negative (Negative) Urine Urobilinogen 0.2 (0.2-1.0) Ur Leukocyte Esterase Negative (Negative) Urine RBC 10-25 A (0-2) Urine WBC 0-2 (0-5) Ur Squamous Epith Cells None (None-Few) Urine Bacteria None (None) Ethyl Alcohol (0.01-0.03) % SARS-CoV-2 (PCR) Negative SARS-CoV-2 (Negative) Influenza Type A (PCR) Negative PCR FLU A (Negative) Influenza Type B (PCR) Negative PCR FLU B (Negative) RSV (PCR) Negative PCR RSV (Negative) Imaging Data CT scan - head: Attestation: I have reviewed the pertinent imaging results. My impression: No acute findings by my review Radiologist's impression: Radiology shows no acute changes. ECG Data Attestation: I personally reviewed and interpreted this ECG as follows: Prior ECG tracings: available for review Interpretation: Atrial fibrillation with controlled ventricular rate of [address] wave changes, QRS QT and [place] are normal. Discharge Plan Discharge Clinical Impression: Concussion, Dementia, Fall Patient Disposition: Admitted As Inpatient Condition: Stable
--- NOTE | 2022-05-01 12:08 | W.PC.EDHO ---
Primary Language: Preferred Language: Orientation Status: [x] Alert & Oriented [] Slight Confusion [] Known Dx Dementia Transfers By: [x] Assist of 1 [] Assist of 2 [] Lift Active Medications Generic Name Dose Route Start Last Admin Trade Name Freq PRN Reason Stop Dose Admin Lidocaine HCl 6 ml 05/01/22 10:33 05/01/22 11:08 Lidocaine Hcl 2 % Jelly (Top) Sterile UR 6 ml ONCE PRN Administration cath urine Discontinued Medications Generic Name Dose Route Start Last Admin Trade Name Freq PRN Reason Stop Dose Admin Haloperidol Lactate 2.5 mg 05/01/22 11:35 05/01/22 11:39 Haloperidol 5 Mg/Ml Inj IV 05/01/22 11:36 2.5 mg ONCE ONE Administration Description of Symptoms ED Triage Present Problem pt here after a fall approx 48hrs ago, did hit his Description head with unknown LOC, pt was not transported then and yesterday was at [facility] for an appointment and diagnosed with UTI, pt has had a steady decline in mental status and mobility since fall, also noted skin tear to right forearm ED Triage Date of Onset of 04/29/22 Symptoms Female History Patient Meredith Coma Scale Meredith coma scale total score 15 IV Insertion/Site Date of IV Line Insertion [ 05/01/22 Left Antecubital] Oxygen Administration Pulse Oximetry 93 Pulse Oximetry 96 Oxygen Delivery Method Room Air Cardiac Monitoring EKG Method 12 Lead
[2022-05-01] MEDS: diphenhydrAMINE 50 MG/ML inj 25 MG IVP (12:58)
[2022-05-01] MEDS: MORPHINE 2 MG/ML inj IVP ×2 (12:59→18:39)
--- NOTE | 2022-05-01 13:51 | PM.IMHP1 ---
Hospitalist- H&P: HPI History of Present Illness Date Seen: 05/01/22 Chief complaint: Head bleed Narrative: ADMISSION HISTORY AND PHYSICAL - HOSPITALIST Chief Complaint: Altered mental status, fell 3 days ago HPI: 86-year-old gentleman known to our service secondary to E coli bacteremia, [place] [facility], with a history compression fracture, diabetes, dementia and hypertension presents with altered mental status. The patient lives at [address] [place] [address]. Apparently fell 3 days ago, suffering a soft tissue injury to the right temporal scalp. No specific hospital care was pursued at the time of the fall he was otherwise un injured. However, over the last 3 days he has had some mental status and personality changes. He has been more agitated and less coherent. Today his symptoms seem to be worse than the 2 previous days so he was transported by EMS to our emergency room. Upon arrival to the ED he was agitated and pulling at blankets and lines. His head CT and neck CT were unremarkable. His labs were unremarkable. He is being admitted for their observation for presumed concussion and delirium while managing chronic medical conditions. There is some concern that a recent prednisone burst of 60 mg daily may have some contribution. PAST MEDICAL HISTORY: Atrial fibrillation, chronic anticoagulation Type 2 diabetes on orals History of bacteremia due to E coli. Morbid obesity Hypertension Obstructive sleep apnea Benign prostatic hyperplasia Chronic back pain Hyperlipidemia Chronic kidney disease, stage III History of gout History of diastolic heart failure History prostatitis MEDICATIONS: [address] [place] [address] med list is reviewed and reconciled with pharmacy. He is currently on a prednisone burst and taper. ALLERGIES: No known drug allergies SURGICAL HISTORY: Cataracts with lens replacement TURP FAMILY HISTORY: Reviewed in EMR HABITS/SOCIAL HISTORY: Single, retired [employer], no kids, nonsmoker, no alcohol [place] by himself. His closest POA is his neighbor who is ?like a son to him? I have met this POA in previous admissions. INVESTIGATIONS: LABS/MICRO/ECG/IMAGING CBC is unremarkable. There is no leukocytosis, hemoglobin is stable. Platelets are normal. INR is 1.36 on known oral anticoagulation. Chemistries are unremarkable. Creatinine is stable from this summer 1.3. Known CKD. Glucose is 215. Urine is 1+ urine protein, 2+ blood, 1+ ketones, negative LE, negative nitrate negative white blood cells. Negative respiratory swab/panel Head CT 1. No intracranial bleed or mass effect. 2. Mild cerebral atrophy with nonspecific white matter disease, likely microangiopathy. CT cervical spine Multilevel degenerative changes cervical spine without evidence of cervical spine fracture. REVIEW OF SYSTEMS: 12-point ROS completed with patient and negative unless otherwise stated in HPI or below. PHYSICAL EXAM: CODE STATUS: DNR/DNI CONSTITUTIONAL: Arousable. However incoherent. He can mumble a couple of words. He seems less agitated than what was being described in the ED. VITAL SIGNS: see record. HEENT: Normocephalic, atraumatic. Small ecchymoses on right baptism. No break in the skin. No obvious jaundice. Modestly dry mucous membranes. NECK: No JVD. No carotid bruit, no thyromegaly, no adenopathy. CHEST: Clear to auscultation bilaterally HEART: S1 and S2 normal. Irregular. No harsh murmurs. Edema minimal. MUSCULOSKELETAL: No gross joint deformity or swelling. NEURO: Difficult to assess SKIN: No rashes, petechiae, concerning changes PSYCHIATRIC: Somnolent ADMIT DVT: Holding anticoagulation. SCDs. GI: PO intake, ppi Time spent: 70 minutes examining patient, conferring with family and patient, care staff, developing care plan [facility] Medical History (Updated 05/01/22 @ 14:05 by Lovely Browning MD) Afib Back pain Bacteremia due to Escherichia coli BPH (benign prostatic hyperplasia) CKD (chronic kidney disease) Constipation Dementia Diabetes mellitus Essential tremor Foot ulcer Generalized weakness Gout Heart failure HTN (hypertension) Hyperlipidemia Obesity (BMI 30-39.9) OBIE (obstructive sleep apnea) Pressure ulcer of right heel, unspecified stage Prostatitis Spinal stenosis Thoracic compression fracture Transaminitis Surgical History History of cataract surgery History of transurethral resection of prostate Family History Father Prostate cancer Paternal Grandfather Prostate cancer Social History Smoking Status: Never smoker How often do you have a drink containing alcohol: never AUDIT-C Alcohol total score: 0 Non-prescribed substance use: denies use service: No Meds Home Medications and Allergies Home Medications Medication Instructions Recorded Confirmed Type calcitonin (salmon) 200 1 spray intranasal (ALT) DAILY 02/24/22 05/01/22 History unit/actuation nasal spray cholecalciferol (vitamin D3) 25 2,000 unit PO DAILY 02/24/22 05/01/22 History mcg (1,000 unit) tablet finasteride 5 mg tablet 5 mg PO DAILY 02/24/22 05/01/22 History furosemide 20 mg tablet 20 mg PO DAILY 02/24/22 05/01/22 History metformin 500 mg tablet 500 mg PO BIDWMEAL 02/24/22 05/01/22 History nystatin 100,000 unit/gram topical 1 applic topical BID 02/24/22 05/01/22 History powder (Nystop) pioglitazone 30 mg tablet 30 mg PO DAILY 02/24/22 05/01/22 History rivaroxaban 20 mg tablet (Xarelto) 20 mg PO QPM 02/24/22 05/01/22 History acetaminophen 650 mg 650 mg PO QID 05/01/22 05/01/22 History tablet,extended release cyanocobalamin (vitamin B-12) 1,000 mcg IM Q7D 05/01/22 05/01/22 History 1,000 mcg/mL injection solution (Dodex) lidocaine 4 % topical patch (Lido 1 patch topical HS 05/01/22 05/01/22 History Primo) melatonin 5 mg tablet 10 mg PO HS 05/01/22 05/01/22 History metoprolol succinate 50 mg 50 mg PO DAILY 05/01/22 05/01/22 History tablet,extended release 24 hr polyethylene glycol 3350 17 gram 17 g PO DAILY PRN 05/01/22 05/01/22 History oral powder packet (Miralax) prednisone 20 mg tablet 40 mg PO DAILY 05/01/22 05/01/22 History sertraline 50 mg tablet 50 mg PO DAILY 05/01/22 05/01/22 History triamcinolone acetonide 0.1 % 1 applic topical BID 05/01/22 05/01/22 History topical cream Allergies Allergy/AdvReac Type Severity Reaction Status Date / Time No Known Drug Allergies Allergy Verified 02/23/22 16:32 Exam Const: Vital Signs, click to edit/add: Vital Signs - 24 hr 05/01/22 08:42 05/01/22 09:11 05/01/22 09:12 Temperature 96.7 F L Pulse Rate 69 Pulse Rate [Right Pulse Oximeter] 90 Respiratory Rate 16 Blood Pressure 120/68 Blood Pressure [Ri ght Upper Arm] 138/126 H Pulse Oximetry 96 93 Oxygen Delivery Me thod Room Air Hospitalist - H&P: Result Labs Labs: Short CBC 05/01/22 Range/Units 08:47 WBC 9.17 (4.50-11.00) K/uL Hgb 12.6 L (13.5-17.5) gm/dL Hct 38.1 (37.0-53.0) % Plt Count 293 (140-440) K/uL BMP 05/01/22 08:45 Sodium 137 Potassium 3.8 Chloride 105 Carbon Dioxide 21 BUN 26 Creatinine 1.3 Glucose 215 H Calcium 9.0 Urine 05/01/22 Range/Units 10:45 Urine Color Yellow (Yellow) Urine Appearance Clear (Clear) Urine pH 5.5 (5.0-8.5) Ur Specific Sidney 1.025 (1.000-1.030) Urine Protein 1+ A (Negative) Urine Glucose (UA) Negative (Negative) Assessment and Plan Assessment and plan (1) Concussion: Problem comment: Superimposed delirium/acute mental status change. Scan is negative. History of being on high-dose prednisone in days prior to fall. Will taper off the prednisone. Support. Continue to correct underlying issues. Status: Acute (2) Fall: Problem comment: Noted. Abrasion/ecchymoses to right temporal scalp. Status: Acute (3) Dementia: Problem comment: Currently at [facility] Staff note that he is somewhat impulsive and unsafe when he is up on his own. Currently 1 on 1 p.r.n. nursing home aide care. Status: Acute (4) Afib: Problem comment: continue rate control. Currently will hold oral anticoagulation. Status: Acute (5) CKD (chronic kidney disease): Problem comment: continue to monitor in the face of comorbid problems Status: Acute (6) HTN (hypertension): Problem comment: continue outpatient treatment Status: Acute (7) Diabetes mellitus: Problem comment: continue to monitor, I will hold orals and monitor her POC glucose monitoring with sliding scale insulin Status: Acute (8) Thoracic compression fracture: Problem comment: Noted. Continue Calcitonin. Treat underlying pain. Status: Acute
[2022-05-01] MEDS: predniSONE 20 MG TABLET 40 MG PO (15:57)
[2022-05-01] MEDS: OXYCODONE 5 MG TABLET PO (15:57)
[2022-05-01] MEDS: ACETAMINOPHEN 650 MG TABLET ER PO ×2 (16:48→20:52)
[2022-05-01] MEDS: CALCITONIN SALMON NASAL SPRAY 200 UNIT 1 SPRAY NOSTRIL-B (16:48)
[2022-05-01] MEDS: QUETIAPINE 25 MG TABLET 12.5 MG PO (18:51)
--- NOTE | 2022-05-01 19:18 | PC.NURSE ---
shift note: pt admit to rm 247 via cart @ 1338. pt appears restless and disoriented. pt has bilat FA skin tears. Bruising to rt faith and upper rt buttock area. pt has small dark area posterior rt great toe. small red scattered spots to bilat shins. HR irreg. BP stable. Pt afeb. LS clr. woodard in place. POA at bedside.new IV restarted to Lt wrist.
[2022-05-01] MEDS: TRIAMCINOLONE ACETONIDE CREAM 0.1 % 1 APPLIC TOPICAL (20:52)
[2022-05-01] MEDS: SENNOSIDES 1 TAB TABLET 2 TAB PO (20:52)
[2022-05-01] MEDS: LIDOCAINE 5% PATCH 1 PATCH TRANSDERMA (20:52)
[2022-05-01] MEDS: NYSTATIN POWDER 1 APPLIC TOPICAL (20:52)
[2022-05-02] VITALS (11 sets, daily range): BP systolic 98–116; BP diastolic 52–73; PULSE 57–87; RESP 16–20; TEMP 35.7–36.8; O2SAT 91–98
[2022-05-02] MEDS: MORPHINE 2 MG/ML inj IVP ×4 (04:12→20:38)
--- NOTE | 2022-05-02 05:11 | PC.NURSE ---
[id number] Pt cooperative with cares, rested/slept well during shift. repositioned q2h and also independently in room, prn morphine administered x1 for back pain, with relief.
[2022-05-02] MEDS: OXYCODONE 5 MG TABLET PO ×2 (07:42→10:53)
--- NOTE | 2022-05-02 08:30 | CRLHL7_ITS ---
For Patients: As a result of the 21st Century Cures Act, medical imaging exams and procedure reports are released immediately into your electronic medical record. You may view this report before your referring provider. If you have questions, please contact your health care provider. INDICATION: Back pain. Fall. Comparison CT cervical spine 05/01/2022. TECHNIQUE: Noncontrast CT thoracic spine. FINDINGS: There is motion artifact which compromises image detail particularly on the reconstructed sagittal and coronal reconstructed images. Allowing for this artifact, there is mild kyphosis of the midthoracic spine. Normal facet alignment. Anterior wedging and approximately 50-60 percent loss of height of the T11 vertebral body with cortical irregularity along the superior endplate. Finding likely represents the recent, acute subacute compression fracture. No retropulsion of fracture fragments. Chronic appearing compression fracture and anterior wedging of the T6, T7 and T8 vertebral bodies. No other acute fractures. Allowing for motion artifact, no displaced rib fractures. Thoracic spondylosis with multilevel disc degeneration facet arthropathy. Ventral bridging osteophytes in the midthoracic spine. T4-5 T5-6: Disc generation with no spinal canal neural foraminal narrowing. T6-7: Disc degeneration. Posterior disc bulge. No spinal canal or neural foraminal narrowing. T10-11: Disc degeneration. Vacuum disc. Diffuse disc bulge. Combined facet arthropathy, there is mild narrowing of spinal canal. Mild narrowing of bilateral foramina. T11-12: Disc degeneration. Vacuum disc. Diffuse disc bulge. Mild narrowing of spinal canal and bilateral foramina. No spinal canal or neural foraminal narrowing at remaining levels. Normal paraspinal soft tissues. Dependent atelectasis. Visualized lungs are otherwise clear. Mild renal atrophy. IMPRESSION: 1. Motion artifact. 2. Mild kyphosis of the midthoracic spine. 3. Acute subacute compression fracture of the T11 vertebral body with 50-60 percent loss of height. No retropulsion of fracture fragments. 4. Chronic compression and anterior wedging of T6, T7 and T8. Thoracic spondylosis 5. At T10-11, disc degeneration. Mild narrowing of the spinal canal and both neural foramina 6. At T11-12, disc degeneration. Mild narrowing of spinal canal and bilateral neural foramina. 7. No severe spinal canal or neural foraminal narrowing at the remaining levels Please note that all CT scans at this facility use dose modulation, iterative reconstruction, and/or weight-based dosing when appropriate to reduce radiation dose to as low as reasonably achievable. Dictated by Wilian Quinteros MD @ 05/02/2022 9:50:50 AM (Electronically Signed)
[2022-05-02] MEDS: CALCITONIN SALMON NASAL SPRAY 200 UNIT 1 SPRAY NOSTRIL-B (09:35)
[2022-05-02] MEDS: METOPROLOL SUCCINATE (XL) 50 MG TAB PO (09:37)
[2022-05-02] MEDS: FINASTERIDE 5 MG TABLET PO (09:37)
[2022-05-02] MEDS: NYSTATIN POWDER 1 APPLIC TOPICAL ×2 (09:37→21:20)
[2022-05-02] MEDS: predniSONE 20 MG TABLET 40 MG PO (09:38)
[2022-05-02] MEDS: ACETAMINOPHEN 650 MG TABLET ER PO ×3 (09:38→21:19)
[2022-05-02] MEDS: SENNOSIDES 1 TAB TABLET 2 TAB PO ×2 (09:39→21:19)
[2022-05-02] MEDS: SERTRALINE 50 MG TABLET PO (09:39)
[2022-05-02] MEDS: FUROSEMIDE 20 MG TABLET PO (09:40)
[2022-05-02] MEDS: QUETIAPINE 25 MG TABLET 12.5 MG PO (10:53)
--- NOTE | 2022-05-02 11:45 | PM.IMPN1 ---
Progress Note: A&P Assessment and plan (1) Concussion: Problem details: Superimposed delirium/acute mental status change. Scan is negative. History of being on high-dose prednisone in days prior to fall. Will taper off the prednisone. Support. Continue to correct underlying issues. Status: Acute (2) Fall: Problem details: Noted. Abrasion/ecchymoses to right temporal scalp. Status: Acute (3) Dementia: Problem details: Currently at [facility]. Staff note that he is somewhat impulsive and unsafe when he is up on his own. Currently 1 on 1 p.r.n. assistant chief nursing officer care. Status: Acute (4) Afib: Problem details: continue rate control. Currently will hold oral anticoagulation. Status: Acute (5) CKD (chronic kidney disease): Problem details: continue to monitor in the face of comorbid problems Status: Acute (6) HTN (hypertension): Problem details: continue outpatient treatment Status: Acute (7) Diabetes mellitus: Problem details: continue to monitor, I will hold orals and monitor her POC glucose monitoring with sliding scale insulin Status: Acute (8) Thoracic compression fracture: Problem details: Noted. Continue Calcitonin. Treat underlying pain. Status: Acute Subjective Date Seen: 05/02/22 Interval history: Daily Progress Note - Hospital Medicine Day #: 2 CC: Ongoing confusion, agitation. However improved. OVERNIGHT UPDATES FROM STAFF & MED, LAB, IMAGING UPDATES Inocencio has had a relatively home night. There was less thrashing and pulling and agitation. He received p.o. Seroquel and IV morphine. In review of his imaging, history and presentation I am more concerned this morning that he is having a reaction to the high doses of prednisone he started 5 days prior to presentation. He had been on 60 mg for urticaria/rash. We have already started to wean this get him off of the prednisone. No new labs. Cultures, urine, negative. CT done this morning: Thoracic CT 1. Motion artifact. 2. Mild kyphosis of the midthoracic spine. 3. Acute subacute compression fracture of the T11 vertebral body with 50-60 percent loss of height. No retropulsion of fracture fragments. 4. Chronic compression and anterior wedging of T6, T7 and T8. Thoracic spondylosis 5. At T10-11, disc degeneration. Mild narrowing of the spinal canal and both neural foramina 6. At T11-12, disc degeneration. Mild narrowing of spinal canal and bilateral neural foramina. 7. No severe spinal canal or neural foraminal narrowing at the remaining levels Review of Systems: Inocencio is generally less is feeling less confused and agitated. See subjective Cardiac: No new chest pain/pressure/palpitations. Respiratory: no new dyspnea. GI: No abdominal bloating Objective: Vitals: see above Lungs: Clear. Cardiac: S1S2. Neuro: Baseline tremor. Mumbling. But seems to nod and follow the conversation. Disposition/Potential discharge - Likely to return to previous living situation, [address] [place] [address] Total time is 35 minutes with greater than 50% spent in counseling and coordination of care. Exam Const: Vital Signs, click to edit/add: Vital Signs - 24 hr 05/01/22 13:38 05/01/22 13:38 05/01/22 13:38 Temperature 98.4 F Pulse Rate 69 Pulse Rate [Right Brachial] 77 Respiratory Rate 16 Blood Pressure [Ri ght Arm] 116/65 Pulse Oximetry 99 99 Oxygen Delivery Me thod Room Air Room Air 05/01/22 13:40 05/01/22 14:50 05/01/22 14:50 Temperature 98.4 F Pulse Rate Pulse Rate [Right Brachial] 77 Respiratory Rate 16 16 Blood Pressure [Ri ght Arm] 116/65 Pulse Oximetry 99 99 99 Oxygen Delivery Me thod Room Air Room Air 05/01/22 15:02 05/01/22 20:19 05/01/22 23:00 Temperature 97.0 F L Pulse Rate 69 Pulse Rate [Right Brachial] 87 69 Respiratory Rate 16 16 Blood Pressure [Ri ght Arm] 105/64 Pulse Oximetry 94 Oxygen Delivery Me thod Room Air 05/01/22 23:00 05/01/22 23:27 05/02/22 02:58 Temperature 97.2 F L 96.3 F L Pulse Rate 64 Pulse Rate [Right Brachial] 69 57 L Respiratory Rate 12 16 Blood Pressure [Ri ght Arm] 104/49 L 102/64 Pulse Oximetry 96 91 Oxygen Delivery Me thod Room Air Room Air 05/02/22 07:45 05/02/22 07:30 Temperature 98.1 F Pulse Rate Pulse Rate [Right Brachial] 83 64 Respiratory Rate 18 Blood Pressure [Ri ght Arm] 116/73 Pulse Oximetry 92 Oxygen Delivery Me thod Room Air
--- NOTE | 2022-05-02 14:36 | PC.SOCIAL ---
Pt. is on a bed hold at [facility] and will return there when ready for discharge.
[2022-05-02] MEDS: KETOROLAC 30 MG/ML inj IVP ×2 (15:56→21:19)
--- NOTE | 2022-05-02 18:55 | PC.NURSE ---
shift note: At 183 nasal trumpet inserted in Lt n/c 5L 95%. BP 111/72, RR=24, HR=86. pt laying on side. 30-60 sec seizure. 183 no breath, clamp down, sat 82%, HR=68, 134/119. 183 oral airway inserted (red); snoring breath sounds. 183 sats 94% and pt moaning. 183 monitor applied. 184= 98.4 (temporal temp), sat 94%, RR=24, HR=85, BP=83/47. 1845 79/62, HR=82, 92%, RR=20; pt is sweaty. 184 order for 1L NS per Dr. Aguilar 1847 visitors here. 1850 1L bolus started HR=87, sats=93%, RR=18, BP=84/39. ( notes transcribed from animal trainer supervisor Janet GUY)
--- NOTE | 2022-05-02 20:04 | PC.NURSE ---
shift note: pt appeared more alert this a.m and was responding to yes/no questions. pt has garbled speech. Pt received prn pain medications for pain indicated in rt shoulder and lower back as expressed by increased restlessness. Pt has drsg to bilat FA due skin tears. Pt has rt buttock bruised area. Pt tolerated diet with assist of feeding. Pt vss stable throughout the day. Pt IV patent. No BM. pt passing flatus. LS clr. HR irreg with tele in place. Pt status changed at approx 1730 with pt being repositioned in bed by fellow staff. Code initiated and Dr. Joseph at bedside.
[2022-05-02 21:15] LABS: Lactate* 3.9 mmol/L (0.5-1.9)
[2022-05-02 21:16] LABS: Eosinophils Percent Auto 0.1 % (0.0-7.0); Hematocrit 34.4 % (37.0-53.0); Hemoglobin* 11.2 gm/dL (13.5-17.5); Immature Granulocytes Abs Auto 0.11 K/uL (0.00-0.30); Mean Corpuscular HGB Conc 33 gm/dL (32-36); Mean Corpuscular Hemoglobin 31 pg (26-34); Mean Corpuscular Volume 96 fL (80-100); Platelet Count* 238 K/uL (140-440); RDW Coefficient of Variation % 14.3 % (11.5-15.5)
[2022-05-02] MEDS: LIDOCAINE 5% PATCH 1 PATCH TRANSDERMA (21:20)
[2022-05-02] MEDS: TRIAMCINOLONE ACETONIDE CREAM 0.1 % 1 APPLIC TOPICAL (21:20)
[2022-05-02 21:33] LABS: Slide Review Reflex No
[2022-05-02 21:37] LABS: Albumin* 3.4 g/dL (3.3-5.0); Chloride* 106 mmol/L (96-114)
[2022-05-02 21:38] LABS: Potassium* 4.7 mmol/L (3.6-5.1); Sodium* 135 mmol/L (135-149)
[2022-05-02 21:40] LABS: Alanine Aminotransferase* 34 U/L (4-50); Alkaline Phosphatase* 88 U/L (40-150); Aspartate Amino Transferase* 28 U/L (12-35); Bilirubin Total* 0.4 mg/dL (0.1-1.5); Blood Urea Nitrogen* 29 mg/dL (7-30); Carbon Dioxide* 16 mmol/L (20-32); Creatinine* 1.4 mg/dL (0.5-1.5); Est. Creatinine Clearance* 45.27; Estimated Glomerular Filt Rate 49 ml/min; Total Protein* 5.9 g/dL (6.0-8.3)
[2022-05-02 21:41] LABS: Calcium* 8.2 mg/dL (8.4-10.6); Magnesium* 2.1 mg/dL (1.5-2.6); Phosphorus* 3.8 mg/dL (2.5-4.5)
[2022-05-02 21:49] LABS: Glucose* 355 mg/dL (60-115)
--- NOTE | 2022-05-02 23:11 | P.EN_ITS ---
Chart Event Note Time Seen by Provider: 18:30 Date Seen: 05/02/22 Chart Event Note: Patient had a witnessed seizure this evening around 1830. The nursing staff summoned me to his room immediately after the event. This seizure lasted maybe 30-60 seconds. The nursing staff who witnessed the seizure described it as the patient suddenly clinching his body and holding that clenching type of position for roughly 30-60 seconds. During that time it seemed like he was not breathing. His face turned red and he started to profusely sweat. Did not describe any clonic movements. Afterward he was postictal and somnolent and sonorous and would not arouse. When on his back he obstructed his airway and thus he was moved to his side. We placed a nasal Trump and opened his airway as such. Also placed an oral airway. Within roughly 15-30 minutes he was arousable albeit still quite sleepy. We removed the oral airway. After another 30 minutes or so he was more awake and we removed the nasal trumpet. He recognize his family who were present as he was awaking. No prior history of seizures. Longstanding evolution of cognitive decline and physical decline. No recent head trauma or injury. I reviewed his inpatient laboratory studies including metabolic and hematologic studies obtained. No obvious active infection also. Was started empirically on the antipsychotic quetiapine due to evolving delirium, which can sometimes lower the seizure threshold. I reviewed this occurrence with the patient's power of commercial attorney, Nathaniel Patricio, and with his niece, Delilah Boyce. They both came in to the hospital to visit him this evening. Answered their questions. Impression: 1. 1st witnessed seizure. Etiology not yet determined. Likely related to evolving dementia. We did start him on the antipsychotic quetiapine which can lower the seizure threshold. With the patient presenting with acute delirium it does cause me to wonder whether not he may have had a seizure before he came here, although this is very unlikely. Plan and recommendations: 1. I do agree with the discontinuation of the prednisone as was done earlier today. 2. I stopped the scheduled quetiapine that was started today. 3. I recheck various labs which do not appear all that different when they were they were running prior to the seizure. Lactate was mildly elevated as we would expect. Will recheck lactate in the morning. Proceed with other laboratory studies as already ordered for the morning. 4. Await repeat urine analysis. 5. Electrocardiogram demonstrates atrial fibrillation, rate controlled. 6. For a while after the event patient was seemingly hypotensive, although it was obtained from his right arm when he is low laying in the left lateral decubitus position. Nevertheless I did give him a bolus of normal saline 1 L. I will order a brain atretic peptide level for the morning as well. Will also order troponin I for the morning. 7. Will not initiate anti seizure medicines at this time.
[2022-05-03] MEDS: KETOROLAC 30 MG/ML inj IVP ×2 (02:51→09:59)
[2022-05-03 03:00] VITALS: BP 98/52; RESP 20; TEMP 36.3; O2SAT 98
[2022-05-03 03:23] VITALS: RESP 20
--- NOTE | 2022-05-03 06:37 | PC.NURSE ---
SHIFT NOTE 23-: Pt is very fatigued, arouses for a short time to name/touch and falls back asleep shortly after. Oxygen saturations in the mid 90's on 2L O2 PNC. Afebrile. Pt repositioned himself from his back to left side frequently overnight independently. [place] patent and draining. Denied pain, scheduled Toradol given. 1:1 overnight with no seizure activity noted.
[2022-05-03 06:57] LABS: HCO3 VBG 24 mmol/L (21-28); Ionized Calcium* 1.14 mmol/L (1.11-1.30); Lactate* 0.9 mmol/L (0.5-1.9); PCO2 VBG 39 mmHG (40-50); PO2 VBG 71.9 mmHG (25-47); pH VBG 7.404 (7.32-7.43)
[2022-05-03 07:00] VITALS: BP 92/82; PULSE 56; PULSE 63; RESP 20; TEMP 36.5; O2SAT 97
[2022-05-03 07:06] LABS: Hematocrit 33.4 % (37.0-53.0); Mean Corpuscular HGB Conc 33 gm/dL (32-36); Mean Corpuscular Hemoglobin 31 pg (26-34); Mean Corpuscular Volume 95 fL (80-100); Platelet Count* 221 K/uL (140-440); Red Blood Count 3.52 m/uL (4.30-5.90)
[2022-05-03 07:07] LABS: Slide Review Reflex No
[2022-05-03 07:21] LABS: INR 1.02 (0.91-1.10); Prothrombin Time 13.9 Seconds
[2022-05-03 07:31] LABS: Chloride* 108 mmol/L (96-114)
[2022-05-03 07:32] LABS: Potassium* 3.9 mmol/L (3.6-5.1); Sodium* 138 mmol/L (135-149)
[2022-05-03 07:34] LABS: Creatinine* 1.2 mg/dL (0.5-1.5); Est. Creatinine Clearance* 52.81; Estimated Glomerular Filt Rate 59 ml/min
[2022-05-03 07:35] LABS: Blood Urea Nitrogen* 31 mg/dL (7-30); Carbon Dioxide* 22 mmol/L (20-32)
[2022-05-03 07:36] LABS: Calcium* 8.5 mg/dL (8.4-10.6); Glucose* 139 mg/dL (60-115); Magnesium* 2.2 mg/dL (1.5-2.6)
[2022-05-03 07:38] LABS: C Reactive Protein* 2.7 mg/dL (0.5-1.0)
[2022-05-03 07:41] LABS: NT Pro B Type NatriureticPept* 6450 PG/mL (0-450)
[2022-05-03 07:44] LABS: Troponin I* 0.02 ng/mL (0.01-0.04)
[2022-05-03 09:47] VITALS: PULSE 54
[2022-05-03] MEDS: METOPROLOL TARTRATE 25 MG TABLET 12.5 MG PO (10:00)
[2022-05-03] MEDS: FUROSEMIDE 20 MG TABLET PO (10:02)
[2022-05-03] MEDS: SENNOSIDES 1 TAB TABLET 2 TAB PO (10:02)
[2022-05-03] MEDS: ACETAMINOPHEN 650 MG TABLET ER PO (10:02)
[2022-05-03] MEDS: SERTRALINE 50 MG TABLET PO (10:02)
[2022-05-03] MEDS: TRIAMCINOLONE ACETONIDE CREAM 0.1 % 1 APPLIC TOPICAL (10:03)
[2022-05-03] MEDS: NYSTATIN POWDER 1 APPLIC TOPICAL (10:03)
[2022-05-03] MEDS: fentaNYL 12 mcg/hr PATCH 1 PATCH TRANSDERMA (12:25)
[2022-05-03] MEDS: OXYCODONE 5 MG TABLET PO (12:50)
[2022-05-03] MEDS: ACETAMINOPHEN 325 MG TABLET PO (12:51)
[2022-05-03 13:26] VITALS: BP 120/68; PULSE 54; RESP 20; TEMP 36.5
[2022-05-03 14:03] VITALS: BP 120/68; PULSE 54; RESP 20; TEMP 36.5
--- NOTE | 2022-05-03 14:15 | PC.NURSE ---
Patient discharged with Fentanyl patch 12mcg patch in place to middle back. Skin tear to R FA redressed. EKG done this AM showing Afib. Pt transferring with carmen Jenkins GB. Nurse to nurse called at 1040 VML, 1210 VML, and 1330 when a nurse was able to take report. [employer] also placed a call back to Nathaniel RAMOS at [phone] at 1038 with VML. Pt Niece present for discharge. Pt discharged off unit at [address] [place] [address] via w/c.
--- NOTE | 2022-05-03 16:24 | PM.DS1 ---
DS: Providers Provider Date Seen: 05/03/22 Date of admission: 05/01/22 12:38 Primary care physician: Ron Berkowitz MD Admitting Clinician: Cyndi Sloan MD Consults: 05/01/22 13:38 Consult to Occupational Therapy [CONS] Routine Comment: Reason(s) for OT Consult:: Evaluate and Treat Any Restrictions?:: No Restrictions Consult to Physical Therapy [CONS] Routine Comment: Reason(s) for PT Consult:: Evaluate and Treat Any Restrictions?:: No Restrictions Consult to [employer]winds Teacher [CONS] Routine Comment: Reason for Consult:: Social Service Consult 05/01/22 17:39 Consult to Occupational Therapy [CONS] Routine Comment: Reason(s) for OT Consult:: Difficulty Managing ADLs Any Restrictions?:: Unknown Consult to Physical Therapy [CONS] Routine Comment: Reason(s) for PT Consult:: Evaluate Ambulation Inability to Mobilize Any Restrictions?:: See Comment Attending Physician on discharge: Lovely Browning MD [facility] Date of Discharge: 05/03/22 DS: Diagnosis Discharge Diagnosis (1) Fall: Status: Acute Problem details: Noted. Abrasion/ecchymoses to right temporal scalp. (2) Concussion: Status: Acute Problem details: Superimposed delirium/acute mental status change. Scan is negative. History of being on high-dose prednisone in days prior to fall. Will taper off the prednisone. Support. Continue to correct underlying issues. (3) HTN (hypertension): Status: Acute Problem details: adjusted his metoprolol 25mg to lopressor 12.5mg BID. added propranolol for tremor. (4) Afib: Status: Acute Problem details: continue rate control. restart OAC. (5) Generalized weakness: Status: Acute Problem details: dementia progressing; intermittent tremors with mobility issues. had a brief tonic seizure on the night prior to discharge; no indication for care home anticonvulsants but will hold seroquel. This was inadvertently continued at discharge. However on the afternoon 05/03 our charge nurse called over to [facility] to hold all Seroquel dosing. (6) Dementia: Status: Acute Problem details: returning to [facility]. He is better than baseline at this point. he was feeding himself; much less tremulous. (7) Thoracic compression fracture: Status: Acute Problem details: Added scheduled 12 mcg of fentanyl patch, continue Lidoderm and Calcitonin. Scheduled Tylenol. P.r.n. Oxy. (8) Diabetes mellitus: Status: Acute Problem details: Hold pioglitazone. Increase metformin to 1 g b.i.d.. (9) Seizure: Status: Acute Problem details: Again, witnessed. Patient seen much improved after seizure on the evening of 05/02. Other than changes described above no other changes to therapies. DS: Summary Hospital Course Hospital Course: HOSPITALIST DISCHARGE SUMMARY ATTENDING PHYSICIAN: Lovely Browning MD FINAL DIAGNOSIS: Steroid induced delirium Status post fall at [facility] center Hypertension Tremor Witnessed seizure Type 2 diabetes Dementia HOSPITAL FOLLOWUP ISSUES: 1. Hypertension. I adjusted his metoprolol succinate to metoprolol tartrate 12.5 mg b.i.d.. I added propranolol extended release q.a.m. to help with his tremor. 2. Type 2 diabetes. I held his pioglitazone. I increased his metformin. 3. Chronic pain, including compression fracture known at T11/T12. Adding a scheduled fentanyl patch of 12 mcg Q 72 hours, scheduled acetaminophen, scheduled calcitonin nasal spray. Scheduled Lidoderm over the most painful vertebral prominence. P.r.n. Oxy. 4. Dementia, improved delirium. Holding Seroquel secondary to his witnessed seizure. REFERRALS WHILE ADMITTED: PT, OT, social work REFERRALS AFTER DISCHARGE: None BRIEF HOSPITAL COURSE: Can came in with acute weakness and delirium. Ultimately this was felt to be related to a recent prednisone burst of 60 mg daily. He had been having and unresponsive uric area. Her once he was on the prednisone he became delirious, not having any purposeful movements, and agitated. We started Seroquel, we held his prednisone. He improved. Actually the night before discharge he had a seizure. This was witnessed by hospitalist. It was self-limited. In fact, he looked much better after his seizure. The next morning he was pleasant and stronger than his typical baseline. He fed himself chicken tenders for lunch. He was alert and interactive. We felt he was safe for discharge back to [address] [place] [address]. We added medication for his baseline tremor. We adjusted hypertension meds. We adjusted diabetic meds. We held Seroquel despite it being on the discharge summary. This was an after the fact catch secondary to his history of seizure we felt like his Seroquel may lower the seizure threshold for recurrent episode. However there were no further seizure activity and he actually was neurologically much improved. VITAL SIGN, MEDICATION, LAB/MICRO, IMAGING SUMMARY (full details available in account tabs or by records request) DISCHARGE MEDICATIONS: See Reconciled list REVIEW OF SYSTEMS No new chest pain or dyspnea Pain controlled No voiding difficulties - patient had [place] upon discharge. This can be removed in 2 days when his mobility has completely returned. Tolerating diet challenge PHYSICAL EXAM: CONSTITUTIONAL: Calm. Agitation resolved. Feeding himself. Asking appropriate questions. VITAL SIGNS: see record. HEENT: Normocephalic, atraumatic. PERRL, EOMI, conjunctivae pink, no scleral icterus. Ears and nose externally normal. Pharynx normal. NECK: No JVD. No carotid bruit, no thyromegaly, no adenopathy. CHEST: Clear to auscultation bilaterally. HEART: S1 and S2 normal. Edema ABDOMEN: Soft, nontender. Normal bowel sounds. MUSCULOSKELETAL: No gross joint deformity or swelling. NEURO: Cranial nerves intact. Grossly intact. No asymmetric findings. SKIN: No rashes, petechiae, concerning changes PSYCHIATRIC: Mood euthymic. DISPOSITION: [facility] Time spent on discharge 37 minutes. Status at Discharge Functional status at discharge: uses cane/walker Overall status at discharge: patient is progressing back to baseline Time Spent with Patient Time attestation: Total time spent providing and/or coordinating discharge services: Time spent: Greater than 30 minutes Exam Const: Vital Signs, click to edit/add: Vital Signs - 24 hr 05/02/22 19:00 05/02/22 23:00 05/02/22 23:07 Temperature 97.4 F L 97.1 F L Pulse Rate 60 Pulse Rate [Right Brachial] 76 73 Respiratory Rate 20 20 Blood Pressure Blood Pressure [Ri ght Arm] 110/64 102/54 L Pulse Oximetry 93 96 Oxygen Delivery Me thod Nasal Cannula Nasal Cannula Oxygen Flow Rate 3 2 05/02/22 23:00 05/03/22 03:23 05/03/22 03:00 Temperature 97.3 F L 97.3 F L Pulse Rate Pulse Rate [Right Brachial] 73 Respiratory Rate 20 20 20 Blood Pressure Blood Pressure [Ri ght Arm] 98/52 L 98/52 L Pulse Oximetry 98 98 Oxygen Delivery Me thod Nasal Cannula Nasal Cannula Oxygen Flow Rate 2 2 05/03/22 09:47 05/03/22 07:00 05/03/22 07:00 Temperature 97.7 F Pulse Rate 54 L Pulse Rate [Right Brachial] 63 56 L Respiratory Rate 20 20 Blood Pressure Blood Pressure [Ri ght Arm] 92/82 Pulse Oximetry 97 Oxygen Delivery Me thod Nasal Cannula Oxygen Flow Rate 2 05/03/22 13:26 05/03/22 14:03 Temperature 97.7 F 97.7 F Pulse Rate 54 L 54 L Pulse Rate [Right Brachial] Respiratory Rate 20 20 Blood Pressure 120/68 120/68 Blood Pressure [Ri ght Arm] Pulse Oximetry Oxygen Delivery Me thod Oxygen Flow Rate DS: Data Data Completed and Pending Labs on day of discharge: Labs from last 24 hours 05/03/22 05/03/22 05/03/22 06:05 06:05 06:05 WBC 10.10 RBC 3.52 L Hgb 11.0 L Hct 33.4 L MCV 95 MCH 31 MCHC 33 RDW Coeff of Dulce Maria Plt Count 221 Neut % (Auto) Lymph % (Auto) Travis % (Auto) Eos % (Auto) Baso % (Auto) Neut # (Auto) Lymph # (Auto) Travis # (Auto) Eos # (Auto) Baso # (Auto) Abs Immat Gran (auto) INR 1.02 VBG pH VBG pCO2 VBG pO2 VBG HCO3 Sodium Potassium Chloride Carbon Dioxide BUN Creatinine Estimated Creat Clear Estimated GFR Glucose Lactate Calcium Ionized Calcium Magaly Phosphorus Magnesium Total Bilirubin AST ALT Alkaline Phosphatase Troponin I C-Reactive Protein NT-Pro-B Natriuret Pep Total Protein Albumin TSH 2.430 05/03/22 05/03/22 05/02/22 06:05 06:05 21:10 WBC RBC Hgb Hct MCV MCH MCHC RDW Coeff of Dulce Maria Plt Count Neut % (Auto) Lymph % (Auto) Travis % (Auto) Eos % (Auto) Baso % (Auto) Neut # (Auto) Lymph # (Auto) Travis # (Auto) Eos # (Auto) Baso # (Auto) Abs Immat Gran (auto) INR VBG pH 7.404 VBG pCO2 39 L VBG pO2 71.9 H VBG HCO3 24 Sodium 138 Potassium 3.9 Chloride 108 Carbon Dioxide 22 BUN 31 H Creatinine 1.2 Estimated Creat Clear 52.81 Estimated GFR 59 Glucose 139 H Lactate 0.9 3.9 H Calcium 8.5 Ionized Calcium Magaly 1.14 Phosphorus Magnesium 2.2 Total Bilirubin AST ALT Alkaline Phosphatase Troponin I 0.02 C-Reactive Protein 2.7 H NT-Pro-B Natriuret Pep 6450 H Total Protein Albumin TSH 05/02/22 05/02/22 21:10 21:10 WBC 12.40 H RBC 3.60 L Hgb 11.2 L Hct 34.4 L MCV 96 MCH 31 MCHC 33 RDW Coeff of Dulce Maria 14.3 Plt Count 238 Neut % (Auto) 90.0 H Lymph % (Auto) 5.0 L Travis % (Auto) 4.0 Eos % (Auto) 0.1 Baso % (Auto) 0.0 Neut # (Auto) 11.20 H Lymph # (Auto) 0.60 L Travis # (Auto) 0.50 Eos # (Auto) 0.00 Baso # (Auto) 0.00 Abs Immat Gran (auto) 0.11 INR VBG pH VBG pCO2 VBG pO2 VBG HCO3 Sodium 135 Potassium 4.7 Chloride 106 Carbon Dioxide 16 L BUN 29 Creatinine 1.4 Estimated Creat Clear 45.27 Estimated GFR 49 Glucose 355 H* Lactate Calcium 8.2 L Ionized Calcium Magaly Phosphorus 3.8 Magnesium 2.1 Total Bilirubin 0.4 AST 28 ALT 34 Alkaline Phosphatase 88 Troponin I C-Reactive Protein NT-Pro-B Natriuret Pep Total Protein 5.9 L Albumin 3.4 TSH Discharge Plan Discharge Disposition: [facility] Date of Admission: 05/01/22 12:38 Attending Provider on Discharge: Lovely Browning Primary Care Provider: Ron Berkowitz Condition: Stable Anticipated Discharge Date/Time: 05/03/22 12:27 Discharge Medications: New propranolol 60 mg Capsule,Extended Release 24 Hr 60 mg PO DAILY Qty: 30 0RF metoprolol tartrate 25 mg Tablet 12.5 mg PO BID Qty: 60 0RF fentanyl 12 mcg/hr Patch 72 Hour 1 patch transdermal Q72H Qty: 10 0RF Continued cyanocobalamin (vitamin B-12) [Dodex] 1,000 mcg/mL solution 1,000 mcg IM Q7D sertraline 50 mg tablet 50 mg PO DAILY lidocaine [Lido Primo] 4 % adhesive patch,medicated 1 patch topical HS Rx Instructions: may leave on for up to 12 hrs triamcinolone acetonide 0.1 % cream 1 applic topical BID polyethylene glycol 3350 [Miralax] 17 gram Powder In Packet 17 g PO DAILY PRN acetaminophen 650 mg Tablet Extended Release 650 mg PO QID calcitonin (salmon) 200 unit/actuation spray,non-aerosol 1 spray intranasal (ALT) DAILY Hold Instructions: . nystatin [Nystop] 100,000 unit/gram powder 1 applic TOPICAL BID Label Comments: APPLY TOPICALLY TWICE DAILY cholecalciferol (vitamin D3) 25 mcg (1,000 unit) tablet 2,000 unit PO DAILY finasteride 5 mg tablet 5 mg PO DAILY furosemide 20 mg tablet 20 mg PO DAILY Xarelto 20 mg tablet 20 mg PO QPM Rx Instructions: must administer with evening meal sennosides [Senna Lax] 8.6 mg Tablet 2 tab PO BID Qty: 120 0RF oxycodone 5 mg Tablet 5 mg PO Q4H PRN (Reason: Pain) Qty: 30 0RF Changed metformin 500 mg tablet 1,000 mg PO BIDWMEAL Qty: 180 0RF Discontinued melatonin 5 mg tablet 10 mg PO HS metoprolol succinate 50 mg tablet extended release 24 hr 50 mg PO DAILY prednisone 20 mg tablet 40 mg PO DAILY Rx Instructions: IN MIDDLE OF TAPER pioglitazone 30 mg tablet 30 mg PO DAILY Discharge Orders: Discharge Order (Routine); Ordered 05/03/22 Ordered By: Lovely Browning Activity Restrictions/Additional Instructions: Pain management for known osteoporotic sufficiency fractures of the vertebrae: Were starting 12 mcg fentanyl patch q.72 hours, Oxy only as needed, scheduled Tylenol, scheduled calcitonin nasal spray, topical lidocaine patch on the most tender vertebrae. New blood pressure regimen and incorporating tremor control: We decreased and changed his metoprolol to Lopressor 12.5 mg b.i.d., we added propranolol at 60 mg q.a.m.. Continue furosemide and finasteride. For agitation and depression: I would highly recommend no further use of prednisone. This seemed to induce a steroid delirium. He also slept better with initiation of Seroquel 25 mg b.i.d.. For his diabetes let us just see how he does on metformin b.i.d.. I would like to hold his pioglitazone for now. Activity Level: Activity as Tolerated Discharge Diet: Heart Healthy (2 gm sodium, low fat) Follow Up Appointments: Ron Berkowitz MD [Primary Care Provider] - 05/17/22 (2-3 weeks, next routine available appointment)
== END 2022-05-03 13:30 ==
LOC: ED 12:28 → MEDSURG 12:39
PROVIDERS: Family Medicine; Internal Medicine; Admitting Provider Family Medicine; Emergency Provider Family Medicine; PCP Family Medicine; Visit Provider Family Medicine
DX: S06.0X9A Concussion with loss of consciousness of unspecified duration, initial encounter (principal); F05 Delirium due to known physiological condition; F03.90 Unspecified dementia, unspecified severity, without behavioral disturbance, psychotic disturbance, mood disturbance, and anxiety; R56.9 Unspecified convulsions; L50.0 Allergic urticaria; T38.0X5A Adverse effect of glucocorticoids and synthetic analogues, initial encounter; I48.91 Unspecified atrial fibrillation; S00.01XA Abrasion of scalp, initial encounter; Z79.01 Long term (current) use of anticoagulants; R53.1 Weakness; M48.54XD Collapsed vertebra, not elsewhere classified, thoracic region, subsequent encounter for fracture with routine healing; W19.XXXA Unspecified fall, initial encounter; G89.29 Other chronic pain; E66.01 Morbid (severe) obesity due to excess calories; G47.33 Obstructive sleep apnea (adult) (pediatric); I13.0 Hypertensive heart and chronic kidney disease with heart failure and stage 1 through stage 4 chronic kidney disease, or unspecified chronic kidney disease; E11.22 Type 2 diabetes mellitus with diabetic chronic kidney disease; N18.30 Chronic kidney disease, stage 3 unspecified; I50.30 Unspecified diastolic (congestive) heart failure; E78.5 Hyperlipidemia, unspecified; N40.0 Benign prostatic hyperplasia without lower urinary tract symptoms
CPT/HCPCS: 36415; 70450; 72125; 72128; 80048; 80053; 81001; 82077; 82330; 82803; 82947; 83605; 83735; 83880; 84100; 84443; 84484; 85025; 85027; 85610; 85730; 86140; 87502; 87634; 87635; 93005; 94761; 96372; 96374; 96375; 96376; 97116; 97162; 97166; 97530; 97535; 99284; 99285; 99291; A9270; G0378; G0379; G0390; J1200; J1630; J1885; J2270; J7512

== ENCOUNTER 2022-05-06 08:35 | Outpatient (CLI) | payer OTHER, MEDICARE, BC, SELFPAY | END 2022-05-06 08:36 | disposition home or self-care (01) | LOC: AMB 06-04 12:18 | PROVIDERS: PCP Family Medicine; Visit Provider Family Medicine | DX: E11.65 Type 2 diabetes mellitus with hyperglycemia (principal); R41.82 Altered mental status, unspecified | CPT/HCPCS: A0425; A0427 ==